=== PATIENT | female | born 1950 | race Caucasian/White ===

== ENCOUNTER 2016-05-24 13:30 | Emergency (ER) | payer OTHER ==
--- NOTE | 2016-05-24 13:37 | PDOC ---
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 The cough began 4 days ago. It is dry. She reports "chest congestion" as well as rhinorrhea. She denies fever, chills, sweats. She reports mild increase in her chronic dyspnea on exertion. She denies chest pain, lower extremity edema or weight gain. 05/24/16 14:31 <Nishant Schumacher - Last Filed: 05/24/16 14:38> <Tamara Galvan - Last Filed: 05/24/16 14:40> - General Chief Complaint: Respiratory Stated Complaint: COUGH & CONGESTION Time Seen by Provider: 05/24/16 13:35 Past History - Past Medical History Anemia: No Asthma: No Cancer: Yes (BASAL CELL,Left Breast) Cardiac Disorders: Yes CVA: Yes (10/25/2012) COPD: Yes CHF: No Dementia: No Diabetes: No GI Disorders: No Disorders: No HTN: Yes Hypercholesterolemia: Yes Liver Disease: No Seizures: No Thyroid Disease: No - Surgical History Abdominal Surgery: No Appendectomy: No Cardiac Surgery: No Cholecystectomy: No Lung Surgery: No Neurologic Surgery: No Orthopedic Surgery: No - Psycho/Social/Smoking Cessation Hx Anxiety: No Suicidal Ideation: No Smoking Status: Yes Smoking History: Current every day smoker Have you smoked in the past 12 months: Yes Number of Cigarettes Smoked Daily: 20 'Breaking Loose' booklet given: 10/25/12 Hx Alcohol Use: No Drug/Substance Use Hx: No Substance Use Type: None Hx Substance Use Treatment: No <Nishant Schumacher - Last Filed: 05/24/16 14:38> <Tamara Galvan - Last Filed: 05/24/16 14:40> - Past Medical History Allergies/Adverse Reactions: Allergies Allergy/AdvReac Type Severity Reaction Status Date / Time No Known Allergies Allergy Verified 05/24/16 13:39 Home Medications: Ambulatory Orders Atorvastatin Ca [Lipitor] 20 mg PO HS #0 tablet 10/31/12 Carvedilol [Coreg] 6.25 mg PO BID 01/15/13 Warfarin Na [Coumadin -] 6 mg PO HS #0 07/11/14 Albuterol Sulfate Inhaler - [Ventolin HFA Inhaler -] 2 inh IH Q4H PRN #1 inh Metformin HCl [Glucophage] 1,000 mg PO BID 05/24/16 Prednisone [Deltasone -] 20 mg PO DAILY #18 tablet 05/24/16 Review of Systems - Review of Systems Comments:: 05/24/16 13:36 CONSTITUTIONAL: Absent: fever, chills, diaphoresis, generalized weakness, malaise, loss of appetite HEENT: Present: rhinorrhea, nasal congestion, Absent: throat pain, throat swelling, difficulty swallowing, mouth swelling, ear pain, eye pain, visual Changes CARDIOVASCULAR: Absent: chest pain, loss of consciousness, palpitations, irregular heart rate, peripheral edema RESPIRATORY: Present: see HPI Absent: orthopnea, wheezing, stridor, hemoptysis GASTROINTESTINAL: Absent: abdominal pain, abdominal distension, nausea, vomiting, diarrhea, constipation, melena, hematochezia GENITOURINARY: Absent: dysuria, frequency, urgency, hesitancy, hematuria, flank pain, genital pain MUSCULOSKELETAL: Absent: myalgia, arthralgia, joint swelling SKIN: Absent: rash, itching, pallor HEMATOLOGIC/IMMUNOLOGIC: Absent: easy bleeding, easy bruising, lymphadenopathy, frequent infections ENDOCRINE: Absent: unexplained weight gain, unexplained weight loss, heat intolerance, cold intolerance NEUROLOGIC: Absent: headache, focal weakness or paresthesias, dizziness, unsteady gait, seizure, mental status changes, bladder or bowel incontinence PSYCHIATRIC: Absent: anxiety, depression, suicidal or homicidal ideation, hallucinations. 05/24/16 13:55 <Nishant Schumacher - Last Filed: 05/24/16 14:38> *Physical Exam - Physical Exam Comments: 05/24/16 14:39 GENERAL: Well developed, well nourished. Awake and alert. No acute distress. HEENT: Normocephalic, atraumatic. PERRLA, EOMI. No conjunctival pallor. Sclera are non- icteric. Moist mucous membranes. Oropharynx is clear. NECK: Supple. Full ROM. No JVD. Carotid pulses 2+ and symmetric, without bruits. No thyromegaly. No lymphadenopathy. CARDIOVASCULAR: Regular rate and rhythm. 2/6 systolic ejection murmur best heard at the left lower sternal border. No rubs, or gallops. Distal pulses are 2+ and symmetric. PULMONARY: No evidence of respiratory distress. Mild expiratory wheezes bilaterally. No rales or rhonchi. ABDOMINAL: Soft. Non-tender. Non-distended. No rebound or guarding. No organomegaly. Normoactive bowel sounds. MUSCULOSKELETAL Normal range of motion at all joints. No bony deformities or tenderness. No CVA tenderness. EXTREMITIES: No cyanosis. No clubbing. No edema. No calf tenderness. SKIN: Warm and dry. Normal capillary refill. No rashes. No jaundice. NEUROLOGICAL: Alert, awake, appropriate. Cranial nerves 2-12 intact. No deficits to light touch and temperature in face, upper extremities and lower extremities. No motor deficits in the in face, upper extremities and lower extremities. Normoreflexic in the upper and lower extremities. Normal speech. Toes are down- going bilaterally. Gait is normal without ataxia. PSYCHIATRIC: Cooperative. Good eye contact. Appropriate mood and affect. <Nishant Schumacher - Last Filed: 05/24/16 14:38> - Vital Signs Last Vital Signs Temp Pulse Resp BP Pulse Ox 99.6 F 99 H 22 126/82 96 05/24/16 13:35 05/24/16 13:35 05/24/16 13:35 05/24/16 13:35 05/24/16 13:35 <Tamara Galvan - Last Filed: 05/24/16 14:40> ED Treatment Course - RADIOLOGY Radiograph Interpretation: 05/24/16 14:40 EXAM#: TYPE/EXAM: RESULT: [id number] RAD/CHEST PA LAT Chest: Cough. 2 views reveal a better inspiration than 01/15/2013. There are clear lungs, slightly elevated right hemidiaphragm, prominent heart, sclerotic knob and normal sonny. The angles are sharp and the soft tissues are intact. There are some degenerative changes with wedging. Impression: No acute pathology. See discussion above. Reported By: Nishant Raza MD 05/24/16 5015 <Tamara Galvan - Last Filed: 05/24/16 14:40> Medical Decision Making - Medical Decision Making 05/24/16 13:56 She is well appearing and in no acute distress Will obtain PA and Lateral CXR Will administer Duoneb and oral prednisone 05/24/16 14:31 Symptoms much improved after medications Chest x-ray emergency Department interpretation: No interval change Echo reviewed showing mild aortic sclerosis and mitral regurgitation This correlates with the systolic murmur Clinical impression: Mild COPD exacerbation; resolved She is very well-appearing, and I feel that her COPD exacerbation is mild, and can be adequately treated on the outpatient basis. I strongly encouraged her to quit smoking. I discussed the physical exam findings, ancillary test results and final diagnoses with the patient. I answered all of the patient's questions. The patient was satisfied with the care received and felt comfortable with the discharge plan and treatment plan. The patient will call their primary care physician within 24 hours to arrange follow-up and will return to the Emergency Department with any new, persistent or worsening symptoms. 05/24/16 14:39 <Nishant Schumacher - Last Filed: 05/24/16 14:38> *DC/Admit/Observation/Transfer <Nishant Schumacher - Last Filed: 05/24/16 14:38> <Tamara Galvan - Last Filed: 05/24/16 14:40> Diagnosis at time of Disposition: COPD with exacerbation - Discharge Dispostion Disposition: HOME Condition at time of disposition: Improved - Prescriptions Prescriptions: Prednisone [Deltasone -] 20 mg PO DAILY #18 tablet Albuterol Sulfate Inhaler - [Ventolin HFA Inhaler -] 2 inh IH Q4H PRN #1 inh PRN Reason: Short Of Breath/Wheezing - Referrals Referrals: Rajeev Mitchell MD [Primary Care Provider] - - Patient Instructions Printed Discharge Instructions: DI for Chronic Bronchitis Additional Instructions: Please try as hard as he can to quit smoking. Even though you are 65, quitting smoking now will make a very significant difference in your life. Return to the emergency department immediately with ANY new, persistent or worsening symptoms. You MUST call and follow up with your doctor tomorrow. Please make sure your doctor reviews the results of your emergency department evaluation. - Post Discharge Activity Work/School Note: Back to Work
[2016-05-24 13:49] VITALS: BP 126/82; PULSE 99; TEMP 99.6; BMI 32.1
[2016-05-24] MEDS ORDERED: predniSONE 20 MG TABLET (UD) PO ONE (13:56)
[2016-05-24] MEDS ORDERED: ALBUTEROL SO4 2.5/IPRATROPIUM 0.5 INH SOL 3 ML VIAL.NEB. NEB ONE (13:56)
[2016-05-24] MEDS ORDERED: predniSONE 20 MG TABLET (UD) ONE (14:21)
== END 2016-05-24 15:04 | disposition home or self-care (01) ==
LOC: FER 13:30
PROC: 3E0F7GC Introduction of Other Therapeutic Substance into Respiratory Tract, Via Natural or Artificial Opening (ICD-10-PCS; principal; 2016-05-24)
DX: J44.1 Chronic obstructive pulmonary disease with (acute) exacerbation (principal); I10 Essential (primary) hypertension; E78.5 Hyperlipidemia, unspecified; Z86.73 Personal history of transient ischemic attack (TIA), and cerebral infarction without residual deficits; F17.210 Nicotine dependence, cigarettes, uncomplicated
CPT/HCPCS: 71020-TC; 94640; 99282-25

== ENCOUNTER → 2016-06-20 | Day surgery (SDC) | payer OTHER ==
--- NOTE | 2016-06-23 10:41 | OP ---
DATE OF OPERATION: 06/20/2016 PREOPERATIVE DIAGNOSIS: Left breast mass 11 o'clock, 9 cm from the nipple and left axillary adenopathy, suspicious. POSTOPERATIVE DIAGNOSIS: Left breast mass 11 o'clock, 9 cm from the nipple and left axillary adenopathy, suspicious. PROCEDURE: Left ultrasound-guided breast core biopsy with clip placement and left axillary ultrasound-guided biopsy with clip placement. ANESTHESIA: Local. ATTENDING SURGEON: Miguel A Willard MD ESTIMATED BLOOD LOSS: Minimal. COMPLICATIONS: None. DESCRIPTION OF PROCEDURE: The patient was made aware of the risks and benefits of the procedure and consented. He was placed in the supine position, and a left axillary adenopathy was approached first. Under sterile conditions with 1% lidocaine for local anesthesia, a small ronn was made in the skin. Using a 13-gauge suction biopsy device with inferolateral approach under ultrasound guidance, 6 cores were obtained and submitted to Pathology. Likewise, under ultrasound guidance, a U-shaped clip was placed into the axillary nodule. The patient having tolerating the procedure well, Steri-Strips and a sterile bandage was applied. Changing instrumentation and set up, the left breast mass was then approached. Under sterile conditions with 1% lidocaine for local anesthesia, a small ronn was made in the skin using a 13-gauge suction biopsy with an inferior approach. Under ultrasound guided, 6 cores were obtained with the 13-gauge suction biopsy device. Likewise, under ultrasound guidance, a bowtie clip was placed into the mass. Steri-Strips and a sterile bandage was applied. We will contact her with the results of these biopsies. MIGUEL A ORNELAS M.D. [id number]
--- NOTE | 2016-06-23 15:37 | PATH ---
Surgical Pathology Report Patient Name: [facility]. Rec. #: [id number] /Age/Gender: 1950 (Age: 65) / F Account: [id number] Location: [facility] Taken: 06/20/2016 Received: 06/20/2016 Reported: 06/23/2016 Physicians: Farnaz Albrecht M.D. Specimen(s) Received A: BREAST CORE BIOPSY LEFT AXILLARY TAIL B: BREAST CORE BIOPSY LEFT 11:00, 9CMFN Clinical History Palpable mass Ultrasound findings: highly suspicious/malignant Final Diagnosis A. breast, left, site #1, axillary tail, core biopsy: Invasive ductal carcinoma, moderately differentiated with papillary features, measuring 9 mm in greatest dimension in this material. B. breast, left, site #2, 11:00, 9 CM FN, core biopsy: Invasive ductal carcinoma, moderately differentiated measuring 1.5 cm in greatest dimension in this material. Note: Results of ER, AZ, HER-2 and Ki67 studies will be reported separately in an addendum. Electronically Signed Amalia Bucio M.D. Addendum Reported: 06/24/2016 Addendum Diagnosis Results of ER and AZ studies performed on blocks A (left axillary tail) &B (left 11:00 9 cm fn) at [facility] are as follows: ER (clone [id number] mouse monoclonal antibody by [employer]): 100 % nuclear staining with strong intensity (Positive). AZ (clone16 mouse monoclonal antibody by [employer]): ~75 % nuclear staining with moderate to strong intensity (Positive). Results of Her2 (IHC) & Ki-67 studies performed on blocks A (left axillary tail) &B (left 11:00 9 cm fn) at [place], [place] ([id number])are as follows: Her2 IHC (EP3 from [employer], formerly known as [id number], using [employer] Polymer Refine detection kit): 2+ (Equivocal). Ki-67: ~25% (Intermediate). Her2 FISH studies are being performed and the results will be reported in an additional addendum. Positive and negative controls (internal if applicable) show appropriate results. Formalin fixation and cold ischemic times are within current ASCO/CAP recommendations for ER, AZ and Her2 testing. Amalia Bucio M.D. Addendum Reported: 06/30/2016 Addendum Diagnosis Results of Her2 FISH studies performed on blocks A&B at [place], [place] ([id number]) are as follows: Block A: Her2: 3.8 CEP17: 2.9 Ratio: 1.3 Interpretation: Negative. Block B: Her2: 3.5 CEP17: 2.8 Ratio: 1.3 Interpretation: Negative. Amalia Bucio M.D. Gross Description A. Received in formalin labeled "left breast axillary tail," is a 2.0 x 1.5 x 0.3 cm aggregate of multiple maloney-yellow, irregular to cylindrical portions of fibroadipose tissue. The formalin is filtered and the specimen is entirely submitted in one cassette. B. Received in formalin labeled "left breast 11:00, 9cmfn," are 6 maloney-yellow, cylindrical portions of fibroadipose tissue ranging from 0.4-1.8 cm in length and averaging 0.1 cm in diameter. The specimens are submitted in toto in one cassette. Time to formalin fixation: 10 minutes Total formalin fixation time: Approximately 7 hours. 06/20/2016
== END | disposition home or self-care (01) ==
LOC: FRADUS-SUR 13:41
PROVIDERS: ATTEND Surgery
PROC: 0HBU3ZX Excision of Left Breast, Percutaneous Approach, Diagnostic (ICD-10-PCS; principal; 2016-06-20)
DX: N63 Unspecified lump in breast (principal); C50.212 Malignant neoplasm of upper-inner quadrant of left female breast; C50.612 Malignant neoplasm of axillary tail of left female breast; R59.9 Enlarged lymph nodes, unspecified
CPT/HCPCS: 19083; 19084; 88305-TC; 88342-TC

== ENCOUNTER → 2016-08-01 | Day surgery (SDC) | payer OTHER ==
--- NOTE | 2016-08-07 13:50 | OP ---
DATE OF OPERATION: 08/01/2016 PREOPERATIVE DIAGNOSIS: Right breast complex cyst 9 o'clock 10 cm from the nipple and a right axillary tail lymph node. POSTOPERATIVE DIAGNOSIS: Right breast complex cyst 9 o'clock 10 cm from the nipple and a right axillary tail lymph node. PROCEDURE: Right ultrasound-guided cyst aspiration. ANESTHESIA: Local . ATTENDING SURGEON: Dr. Moon. ESTIMATED BLOOD LOSS: Minimal. COMPLICATIONS: None. PROCEDURE IN DETAIL: The patient was made aware of the risks and benefits of the procedure and consented. She was placed in the supine position. Evaluation of the right complex lesion it was felt to be a complex cyst and a cyst aspiration was performed. Evaluation of the right axillary tail nodule showed it to be benign appearing anterior mammary lymph node and biopsy was deferred for observation. The right breast cyst was then approached. Under sterile conditions we infiltrated lidocaine for local anesthesia. An 18-guage needle under ultrasound guidance was directed to the cyst. This was aspirated revealing a very small amount of waxy yellow, non-bloody fluid. This almost completely decompressed the cyst with some residual fluid within it, but no nodularity. Since the fluid was benign appearing it was not submitted for cytology. The patient tolerated the procedure well. Sterile dressing was applied and referred back to Dr. Albrecht who will be treating her for her breast cancer. SUSAN ORNELAS M.D. [id number]
== END | disposition home or self-care (01) ==
LOC: FRADUS-SUR 12:50
PROVIDERS: ATTEND Surgery
PROC: BH40ZZZ Ultrasonography of Right Breast (ICD-10-PCS; principal; 2016-08-01)
PROC: 0H9T3ZZ Drainage of Right Breast, Percutaneous Approach (ICD-10-PCS; 2016-08-01)
DX: N60.01 Solitary cyst of right breast (principal)
CPT/HCPCS: 76942-TC

== ENCOUNTER 2016-12-08 11:15 | Inpatient (IN) | payer OTHER ==
[2016-12-08] MEDS ORDERED: SODIUM CHLORIDE 1,000 ML IV STA (11:24)
--- NOTE | 2016-12-08 11:28 | PDOC ---
History of Present Illness <Branden Landry - Last Filed: 12/08/16 15:05> - General History Source: Patient Exam Limitations: No Limitations - History of Present Illness Travel History: No Initial Comments: 12/08/16 11:25 65 y/o female with multiple medical problems presents to ER with LLQ pain. Decrease po intake for last 6 days. No fever or chills. 2 weeks ago placed on Augmentin for URI and then developed diarrhea. Diarrhea has stopped, no vomiting , but now with increase abdominal pain for last week. No SOB or chest pain. No fall or trauma. No back pain. Timing/Duration: reports: constant, getting worse Quality: reports: moderate Abdominal Pain Onset Location: reports: LLQ Pain Radiation: reports: no radiation Activities at Onset: reports: none <Nishant Ambrocio - Last Filed: 12/08/16 15:17> - General Chief Complaint: Pain Stated Complaint: LLQ PAIN Time Seen by Provider: 12/08/16 11:18 Past History <Branden Landry - Last Filed: 12/08/16 15:05> - Past Medical History Anemia: No Asthma: No Cancer: Yes (BASAL CELL,Left Breast) Cardiac Disorders: Yes CVA: Yes (10/25/2012) COPD: Yes CHF: No Dementia: No Diabetes: No GI Disorders: No Disorders: No HTN: Yes Hypercholesterolemia: Yes Liver Disease: No Seizures: No Thyroid Disease: No - Surgical History Abdominal Surgery: No Appendectomy: No Cardiac Surgery: No Cholecystectomy: No Lung Surgery: No Neurologic Surgery: No Orthopedic Surgery: No - Suicide/Smoking/Psychosocial Hx Smoking Status: Yes Smoking History: Current every day smoker Have you smoked in the past 12 months: Yes Number of Cigarettes Smoked Daily: 20 'Breaking Loose' booklet given: 05/24/16 Hx Alcohol Use: No Drug/Substance Use Hx: No Substance Use Type: None Hx Substance Use Treatment: No <Nishant Ambrocio - Last Filed: 12/08/16 15:17> - Past Medical History Allergies/Adverse Reactions: Allergies Allergy/AdvReac Type Severity Reaction Status Date / Time No Known Allergies Allergy Verified 12/08/16 11:22 Home Medications: Ambulatory Orders Atorvastatin Ca [Lipitor] 20 mg PO HS #0 tablet 10/31/12 Carvedilol [Coreg] 6.25 mg PO BID 01/15/13 Warfarin Na [Coumadin -] 6 mg PO HS #0 07/11/14 Albuterol Sulfate Inhaler - [Ventolin HFA Inhaler -] 2 inh IH Q4H PRN #1 inh Metformin HCl [Glucophage] 1,000 mg PO BID 05/24/16 Amlodipine Besylate [Norvasc -] 5 mg PO HS 12/08/16 Anastrozole [Arimidex -] 1 mg PO HS 12/08/16 Calcium Carbonate/Vitamin D3 [Calcium 500-Vit D3 600 Tablet] 2 each PO DAILY 11/16 Cyanocobalamin (Vitamin B-12) [B-12] 1,000 mcg PO DAILY 12/08/16 Review of Systems - Review of Systems Able to Perform ROS?: Yes Is the patient limited Sinhala proficient: No Constitutional: No: Chills, Fever, Malaise HEENTM: No: Throat Pain Respiratory: No: Cough, Shortness of Breath Cardiac (ROS): No: Chest Pain, Edema ABD/GI: Yes: Abdominal Distended, Diarrhea. No: Nausea, Vomiting : No: Burning, Dysuria Musculoskeletal: No: Back Pain Integumentary: No: Bruising All Other Systems: Reviewed and Negative <Nishant Ambrocio - Last Filed: 12/08/16 15:17> *Physical Exam - Vital Signs Last Vital Signs Temp Pulse Resp BP Pulse Ox 97.5 F L 110 H 18 127/83 95 12/08/16 11:17 12/08/16 11:17 12/08/16 11:17 12/08/16 11:17 12/08/16 11:17 <Branden Landry - Last Filed: 12/08/16 15:05> - Physical Exam General Appearance: Yes: Nourished, Appropriately Dressed, Mild Distress HEENT: positive: EOMI, SAMARIA (right eye blind, cataract/glaucoma), Normal ENT Inspection, Normal Voice, Pharynx Normal Neck: positive: Trachea midline, Normal Thyroid, Supple. negative: Tender, Rigid, Carotid bruit Respiratory/Chest: positive: Lungs Clear, Normal Breath Sounds. negative: Chest Tender, Respiratory Distress, Wheezing Cardiovascular: positive: Regular Rhythm, Regular Rate, S1, S2. negative: Edema , JVD, Murmur Vascular Pulses: Femoral (R): 4+, Femoral (L): 4+, Carotid (R): 4+, Carotid (L) : 4+, Dorsalis-Pedis (R): 4+, Doralis-Pedis (L): 4+ Gastrointestinal/Abdominal: positive: Tender (LLQ tenderness with rebound decreased BS, high pitched), Soft. negative: Normal Bowel Sounds (high pitched bowel sound), Flat (slightly distended), Organomegaly, Pulsatile Mass Lymphatic: negative: Adenopathy, Tenderness, Other Musculoskeletal: positive: Normal Inspection. 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 NML intact, Fully Oriented, Alert, Normal Mood/ Affect, Normal Response, Motor Strength 07/04 <Nishant Ambrocio - Last Filed: 12/08/16 15:17> ED Treatment Course - LABORATORY CBC & Chemistry Diagram: 12/08/16 11:50 12/08/16 11:50 - ADDITIONAL ORDERS Additional order review: Laboratory Results 12/08/16 12/08/16 12/08/16 11:50 11:50 11:50 PTT (Actin FS) Cancelled 65.4 H Sodium 136 Potassium 3.7 Chloride 93 L Carbon Dioxide 29 H Anion Gap 14 BUN 36 H D Creatinine 0.8 Creat Clearance w eGFR > 60 Random Glucose 170 H Calcium 9.6 Total Bilirubin 0.5 AST 16 ALT 10 Alkaline Phosphatase 90 Total Protein 6.4 Albumin 3.3 L Lipase 21 L Urine Color Urine Appearance Urine pH Ur Specific Bandy Urine Protein Urine Glucose (UA) Urine Ketones Urine Blood Urine Nitrite Urine Bilirubin Urine Urobilinogen Ur Leukocyte Esterase Urine RBC Urine WBC Ur Epithelial Cells 12/08/16 11:25 PTT (Actin FS) Sodium Potassium Chloride Carbon Dioxide Anion Gap BUN Creatinine Creat Clearance w eGFR Random Glucose Calcium Total Bilirubin AST ALT Alkaline Phosphatase Total Protein Albumin Lipase Urine Color Yellow Urine Appearance Sl cloudy Urine pH 5.0 Ur Specific Bandy 1.020 Urine Protein Negative Urine Glucose (UA) Negative Urine Ketones Trace Urine Blood Negative Urine Nitrite Negative Urine Bilirubin 1+ H Urine Urobilinogen 0.2 Ur Leukocyte Esterase 2+ H Urine RBC 0-2 Urine WBC 15-20 Ur Epithelial Cells 3-5 12/08/16 11:50 RBC 4.49 MCV 92.6 MCHC 33.5 RDW 13.6 MPV 8.6 Neutrophils % 80.3 Lymphocytes % 12.8 Monocytes % 6.3 Eosinophils % 0.5 Basophils % 0.1 - RADIOLOGY Radiograph Interpretation: 12/08/16 14:33 EXAM: CT Abdomen and Pelvis INTERPRETED BY: Dr. Pavon REVIEWED BY: Dr. Ambrocio IMPRESSION: Moderate colonic distention with caliber change at the level of the proximal sigmoid. No obvious mass or stricture noted. Clinical correlation and follow-up recommended. - Medications Given in the ED: ED Medications Discontinued Medications Generic Name Dose Route Start Last Admin Trade Name Freq PRN Reason Stop Dose Admin Sodium Chloride 1,000 mls @ 1,000 mls/hr 12/08/16 11:24 12/08/16 12:00 Normal Saline - IV 12/08/16 12:23 1,000 mls/hr ASDIR STA Administration Morphine Sulfate 4 mg 12/08/16 12:41 12/08/16 12:49 Morphine Injection - IVPUSH 12/08/16 12:42 4 mg ONCE ONE Administration Morphine Sulfate 4 mg 12/08/16 14:17 12/08/16 14:22 Morphine Injection - IVPUSH 12/08/16 14:18 4 mg ONCE ONE Administration Ondansetron HCl 4 mg 12/08/16 12:41 12/08/16 12:49 Zofran Injection IVPUSH 12/08/16 12:42 4 mg ONCE ONE Administration <Branden Landry - Last Filed: 12/08/16 15:05> - LABORATORY CBC & Chemistry Diagram: 12/08/16 11:50 12/08/16 11:50 - RADIOLOGY Radiology Studies Ordered: 12/08/16 15:14 XT abd/pelvis : colonic distention, no diverticulitis or obstruction <Nishant Ambrocio - Last Filed: 12/08/16 15:17> Progress Note - Progress Note Progress Note: 65 y/o female with LLQ tenderness, will obtain fluids and CT abedomen to r/o obstruction/diverticulitis Pt requiring IV pain meds and fluids Spoke to Hospitalist Dr. Rodriguez at 1510, will admit pt Pt will require surgical consults C-diff not ordered at this time since pt is no longer having diarrhea Appearance of colon appears to have toxic megacolon appearance <Nishant Ambrocio - Last Filed: 12/08/16 15:17> Medical Decision Making - Medical Decision Making 12/08/16 14:38 First call placed to Dr. Landen Shay at 14:39. Awaiting call back. Case discussed with Dr. Shay at 15:04. <Branden Landry - Last Filed: 12/08/16 15:05> *DC/Admit/Observation/Transfer - Attestations Scribe Attestion: 12/08/16 14:40 Documentation prepared by Branden Landry, acting as medical detail representative for Nishant Ambrocio MD. <Branden Landry - Last Filed: 12/08/16 15:05> - Discharge Dispostion Admit: Yes <Nishant Ambrocio - Last Filed: 12/08/16 15:17> Diagnosis at time of Disposition: Intractable abdominal pain - Discharge Dispostion Condition at time of disposition: Fair - Referrals Referrals: Landen Shay MD [Primary Care Provider] -
[2016-12-08 11:33] VITALS: BMI 30.9
[2016-12-08 11:37] LABS: URINE BILIRUBIN 1+ (NEGATIVE); URINE BLOOD Negative (NEGATIVE); URINE COLOR YELLOW; URINE GLUCOSE (UA) Negative (NEGATIVE); URINE KETONE Trace (NEGATIVE); URINE LEUK ESTERASE 2+ (NEGATIVE); URINE NITRITE Negative (NEGATIVE); URINE PROTEIN Negative (NEGATIVE); URINE UROBILINOGEN 0.2 (0.2-1.0)
[2016-12-08 11:38] LABS: URINE APPEARANCE SL CLOUDY
[2016-12-08 12:39] LABS: ALBUMIN 3.3 g/dl (3.5-5.0); ALK PHOS 90 U/L (32-92); ANION GAP 14 (8-16); BILIRUBIN,TOTAL 0.5 mg/dl (0.2-1.0); CALCIUM 9.6 mg/dl (8.4-10.2); CO2 29 mmol/L (22-28); CREATININE 0.8 mg/dl (0.6-1.3); GLUCOSE,RANDOM 170 mg/dl (74-106); SGOT/AST 16 U/L (10-42); SGPT/ALT 10 U/L (10-40); TOT PROT 6.4 g/dl (6.4-8.3)
[2016-12-08 12:40] LABS: BASOPHIL 0.1 % (0-2.0); EOSINOPHIL 0.5 % (0-4.5); MCHC 33.5 g/dl (32.0-36.0); MEAN CELL VOLUME 92.6 fl (80-96); MEAN PLT VOLUME 8.6 fl (7.5-11.1); NEUTROPHILS 80.3 % (42.8-82.8); PLATELET COUNT 405 K/MM3 (134-434); RDW 13.6 % (11.6-15.6)
[2016-12-08] MEDS ORDERED: ONDANSETRON 4 MG/2 ML VIAL IVPUSH ONE (12:41)
[2016-12-08] MEDS ORDERED: ONDANSETRON 4 MG/2 ML VIAL ONE (12:41)
[2016-12-08] MEDS ORDERED: morphine CARPU-JECT 4 MG/1 ML DISP.SYRIN IVPUSH ONE ×2 (12:41→14:17)
[2016-12-08] MEDS ORDERED: morphine CARPU-JECT 4 MG/1 ML DISP.SYRIN ONE ×2 (12:41→14:19)
[2016-12-08 12:48] LABS: ACTIVATED PTT 65.4 SECONDS (24.0-38.9)
[2016-12-08 13:05] LABS: URINE RBC 0-2 /hpf (0-3); URINE WBC 15-20 (3-5)
[2016-12-08] MEDS ORDERED: SODIUM CHLORIDE 1,000 ML IV SCH (13:15)
[2016-12-08] MEDS ORDERED: PHYTONADIONE 10 MG/1 ML AMP IM ONE (14:39)
[2016-12-08 14:40] LABS: INR > 15.00 (0.82-1.09)
[2016-12-08] MEDS ORDERED: PHYTONADIONE 10 MG/1 ML AMP ONE (14:49)
[2016-12-08] MEDS ORDERED: ONDANSETRON 4 MG/2 ML VIAL IVPUSH PRN (15:42)
[2016-12-08] MEDS ORDERED: ALBUTEROL SO4 18 GM HFA INHALER IH PRN (16:20)
[2016-12-08] MEDS: LEVOFLOXACIN 500 MG IVPB 100 ML IVPB SCH (17:39)
[2016-12-08] MEDS: INSULIN SLIDING SCALE (NOVOLOG) 1 VIAL SQ SCH ×2 (17:40→21:27)
--- NOTE | 2016-12-08 18:36 | CONSULT ---
Consult Consult Specialty:: General Surgery Referred by:: Dr. Ambrocio/hospitalist Reason for Consultation:: colonic dilation, LLQ pain - History of Present Illness Chief Complaint: LLQ pain, abdominal distention History of Present Illness: 65yo obese F with multiple medical problems including recently diagnosed breast cancer, never had colonoscopy, saw oncologist 2 weeks ago and was put on Augmentin. 2-3 days later, she began experiencing significant diarrhea, which eventually got better. A week ago Thursday, she then began having abdominal pain , mainly in the LLQ, but sometimes shooting up the left side when she stood up, associated with some mild nausea but no emesis, and possibly some more loose stool. No fever or chills, never had this before. About 5 days ago, her noted her abdomen began swelling up, and she has remained distended with intermittent LLQ pain. In the last few days, she has only had a few small formed pieces of stool, no "full bowel movement." She is passing gas. No more diarrhea. No n/v. Has not eaten much for last 5-6 days, partly due to the pain and distention - had applesauce yesterday, pudding day before, jello before that. Usually has BM only about every other day, but not hard or loose. Is burping a lot. The pain got so bad she finally came to ER today. Has been able to take her home meds regularly. No urinary symptoms. In ER, pt temp 99.1, wbc 11, INR and PTT very high (per pt, INR was 2.3 two weeks ago), glucose 170, UA with some WBC but no bacteria listed. CT with IV contrast but not oral showed colonic dilation to sigmoid with caliber change but no mass or stricture; no SB dilation, no free air, trace pelvic fluid and small ascites under liver and spleen, no diverticulosis. Per ED, pt had exquisite abdominal tenderness, particularly in LLQ. She got fluids, pain meds, vitamin K. She was admitted to hospitalist, and surgery consulted to evaluate. Patient states pain has improved - currently not present without palpation. 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: Yes: CVA (no residual) Cardio/Vascular: Yes: HTN, Hyperlipdemia Pulmonary: Yes: COPD Gastrointestinal: Yes: Other (obesity) Reproductive: Yes: Postmenopausal ...: No Heme/Onc: Yes: Cancer (breast (left) diagnosed May invasive ductal, ER/SC+/ Her2-, on Arimidex; had calcifications out 2005, malignant per pt, did not have radiation (near same spot)), Other (on coumadin since stroke) Endocrine: Yes: Diabetes Mellitus Dermatology: Yes: Basal Cell (multiple sites removed) Additional Medical History: legally blind, 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 No: Colonoscopy (never had) Additional Surgical History: basal cell CA removed from lip, back, right forearm - Alcohol/Substance Use Hx Alcohol Use: No (social in past, not recently) History of Substance Use: reports: None - Smoking History Smoking history: Current every day smoker Have you smoked in the past 12 months: Yes Aproximately how many cigarettes per day: 20 (2ppd x 50y, cut down to 1ppd ~ 2012 after stroke) - Social History Usual Living Arrangement: With Spouse Home Medications - Allergies Allergies/Adverse Reactions: Allergies Allergy/AdvReac Type Severity Reaction Status Date / Time No Known Allergies Allergy Verified 12/08/16 11:22 - Home Medications Home Medications: Ambulatory Orders Atorvastatin Ca [Lipitor] 20 mg PO HS #0 tablet 10/31/12 Carvedilol [Coreg] 6.25 mg PO BID 01/15/13 Warfarin Na [Coumadin -] 6 mg PO HS #0 07/11/14 Albuterol Sulfate Inhaler - [Ventolin HFA Inhaler -] 2 inh IH Q4H PRN #1 inh Metformin HCl [Glucophage] 1,000 mg PO BID 05/24/16 Amlodipine Besylate [Norvasc -] 5 mg PO HS 12/08/16 Anastrozole [Arimidex -] 1 mg PO HS 12/08/16 Calcium Carbonate/Vitamin D3 [Calcium 500-Vit D3 600 Tablet] 2 each PO DAILY 11/16 Cyanocobalamin (Vitamin B-12) [B-12] 1,000 mcg PO DAILY 12/08/16 Family Disease History - Family Disease History Other Family History: multiple family members with cancer history Review of Systems - Review of Systems Constitutional: reports: Loss of Appetite (partly due to pain and abdominal distention), Unintentional Wgt. Loss (lost 7 pounds recently). denies: Chills, Fever Eyes: reports: Other (legally blind, has some blurry vision in left eye only). denies: Recent Change in Vision HENT: denies: Difficult Swallowing, Hearing Loss, Nasal Congestion, Throat Pain Neck: denies: Swollen Glands, Tenderness Cardiovascular: denies: Chest Pain, Palpitations Respiratory: reports: Cough (smoker's cough). denies: SOB Gastrointestinal: reports: Abdominal Pain (with hpi, since Sun last week), Bloating (distended for about 5 days), Constipation (last few days only few small pieces, usually goes about every other day), Diarrhea (initially with hpi ~2 wks ago, maybe some ~1 wk ago, none in last several days), Nausea (had a little last week, no vomiting). denies: Vomiting Genitourinary: denies: Burning, Dysuria, Frequency, Urgency Breasts: reports: See HPI, Lumps, Skin Changes Musculoskeletal: denies: Back Pain, Joint Pain, Muscle Pain Integumentary: denies: Change in Color, Rash Neurological: denies: Dizziness, Headache, Unsteady Gait Psychiatric: denies: Anxiety, Depression Physical Exam Vital Signs: Vital Signs Temperature 98.8 F 12/08/16 17:18 Pulse Rate 100 H 12/08/16 17:18 Respiratory Rate 20 12/08/16 17:18 Blood Pressure 126/70 12/08/16 17:18 O2 Sat by Pulse Oximetry (%) 93 L 12/08/16 17:18 Constitutional: Yes: No Distress, Calm, Obese Eyes: Yes: EOM Intact (on left, not on right), Other (right eye clouded over, blind) HENT: Yes: Atraumatic, Normocephalic Neck: Yes: Supple, Trachea Midline Cardiovascular: Yes: Tachycardia (mild), Murmur. No: Pulse Irregular Respiratory: Yes: Regular, CTA Bilaterally (generally), Cough (periodic smoker' s cough), Wheezes (some faint inspiratory on right, faint end-expiratory on left ) Gastrointestinal: Yes: Soft, Abdomen, Obese, Distention (with tympany, some rushing and higher-pitched bowel sounds), Hernia (umbilical/periumbilical small reducible defect palpable), Hyperactive Bowel Sounds, Tenderness (LLQ without guarding or rebound - per pt, better than earlier in ER). No: Tenderness, Epigastrium, Tenderness, Rebound ...Rectal Exam: Yes: Deferred Renal/: No: CVA Tenderness - Left, CVA Tenderness - Right Breast(s): Yes: Left, Mass, Skin Changes (left UOQ with superficial nonmobile palpable mass with overlying dry skin changes with some discoloration, 3-4cm diameter) Musculoskeletal: No: Joint Swelling, Muscle Pain Extremities: No: Cool, Cyanosis Edema: No Peripheral Pulses WNL: Yes Integumentary: No: Jaundice, Rash Neurological: Yes: Alert, Oriented Psychiatric: Yes: Alert, Oriented Labs: CBCD WBC 11.0 K/mm3 (4.0-10.8) H 12/08/16 11:50 RBC 4.49 M/mm3 (3.60-5.2) 12/08/16 11:50 Hgb 13.9 GM/dl (10.7-15.3) 12/08/16 11:50 Hct 41.5 % (32.4-45.2) 12/08/16 11:50 MCV 92.6 fl (80-96) 12/08/16 11:50 MCHC 33.5 g/dl (32.0-36.0) 12/08/16 11:50 RDW 13.6 % (11.6-15.6) 12/08/16 11:50 Plt Count 405 K/MM3 (134-434) 12/08/16 11:50 MPV 8.6 fl (7.5-11.1) 12/08/16 11:50 CMP Sodium 136 mmol/L (136-145) 12/08/16 11:50 Potassium 3.7 mmol/L (3.5-5.1) 12/08/16 11:50 Chloride 93 mmol/L (98-107) L 12/08/16 11:50 Carbon Dioxide 29 mmol/L (22-28) H 12/08/16 11:50 Anion Gap 14 (8-16) 12/08/16 11:50 BUN 36 mg/dl (7-18) H D 12/08/16 11:50 Creatinine 0.8 mg/dl (0.6-1.3) 12/08/16 11:50 Creat Clearance w eGFR > 60 (>60) 12/08/16 11:50 Calcium 9.6 mg/dl (8.4-10.2) 12/08/16 11:50 Total Bilirubin 0.5 mg/dl (0.2-1.0) 12/08/16 11:50 AST 16 U/L (10-42) 12/08/16 11:50 ALT 10 U/L (10-40) 12/08/16 11:50 Alkaline Phosphatase 90 U/L (32-92) 12/08/16 11:50 Total Protein 6.4 g/dl (6.4-8.3) 12/08/16 11:50 Albumin 3.3 g/dl (3.5-5.0) L 12/08/16 11:50 INR, PTT INR > 15.00 (0.82-1.09) H* 12/08/16 11:50 PTT 65 Urine Test Results Urine Color Yellow 12/08/16 11:25 Urine Appearance Sl cloudy 12/08/16 11:25 Urine pH 5.0 (4.5-8) 12/08/16 11:25 Ur Specific [place] 1.020 (1.005-1.025) 12/08/16 11:25 Urine Protein Negative (NEGATIVE) 12/08/16 11:25 Urine Glucose (UA) Negative (NEGATIVE) 12/08/16 11:25 Urine Ketones Trace (NEGATIVE) 12/08/16 11:25 Urine Blood Negative (NEGATIVE) 12/08/16 11:25 Urine Nitrite Negative (NEGATIVE) 12/08/16 11:25 Urine Bilirubin 1+ (NEGATIVE) H 12/08/16 11:25 Ur Leukocyte Esterase 2+ (NEGATIVE) H 12/08/16 11:25 Urine RBC 0-2 /hpf (0-3) 12/08/16 11:25 Urine WBC 15-20 (3-5) 12/08/16 11:25 Ur Epithelial Cells 3-5 /HPF 12/08/16 11:25 Imaging - Results Cat Scan: Report Reviewed (colon dilated from cecum to sigmoid, with caliber change but no obvious etiology, some stool present distally, no small bowel dilation, small ascites under liver and spleen, trace pelvic fluid, no diverticulosis), Image Reviewed Problem List - Problems (1) LLQ pain Assessment/Plan: pain/tenderness improved from presentation to ER etiology unclear outside of colonic dilation (see below) passing some flatus, minimal BM last couple days checking stool for C diff with next BM on Flagyl (w/Levo) keep NPO/IVF trend labs minimize narcotic pain medication GI consultation pending NGT not indicated no indication for surgical intervention at this time will follow Code(s): R10.32 - LEFT LOWER QUADRANT PAIN (2) Dilatation of colon Assessment/Plan: etiology unclear could have been C diff related after Augmentin 2 wks ago, but no longer having diarrhea would check stool anyway on Flagyl (with Levo) - would cover never had colonoscopy recommend GI consultation may benefit from flex sig with possible decompression? continue NPO/IVF for now Code(s): K59.39 - OTHER MEGACOLON (3) H/O: CVA (cerebrovascular accident) Assessment/Plan: on coumadin no residual would hold coumadin if possible for now Code(s): Z86.73 - PRSNL HX OF TIA (TIA), AND CEREB INFRC W/O RESID DEFICITS (4) Supratherapeutic INR Assessment/Plan: repeating coags got vitamin K in ER if truly elevated, may need to correct would hold coumadin for now Code(s): R79.1 - ABNORMAL COAGULATION PROFILE (5) Hypertension Assessment/Plan: on home meds Code(s): I10 - ESSENTIAL (PRIMARY) HYPERTENSION Qualifiers: Hypertension type: essential hypertension Qualified Code(s): I10 - Essential (primary) hypertension; I10 - Essential (primary) hypertension; I10 - Essential (primary) hypertension (6) COPD without exacerbation Assessment/Plan: inhalers prn defer to primary team Code(s): J44.9 - CHRONIC OBSTRUCTIVE PULMONARY DISEASE, UNSPECIFIED (7) Diabetes mellitus type 2, noninsulin dependent Assessment/Plan: FS with SSI while NPO hold metformin at least 48H after CT with IV contrast Code(s): E11.9 - TYPE 2 DIABETES MELLITUS WITHOUT COMPLICATIONS (8) Cancer of left breast Assessment/Plan: on Arimidex follows with Dr. Pete Code(s): C50.912 - MALIGNANT NEOPLASM OF UNSPECIFIED SITE OF LEFT FEMALE BREAST Qualifiers: Breast location: upper outer quadrant of breast Estrogen receptor status: positive Patient sex: female Qualified Code(s): C50.412 - Malignant neoplasm of upper-outer quadrant of left female breast; C50.412 - Malignant neoplasm of upper-outer quadrant of left female breast; C50.412 - Malignant neoplasm of upper-outer quadrant of left female breast; C50.412 - Malignant neoplasm of upper-outer quadrant of left female breast; Z17.0 - Estrogen receptor positive status [ER+]; Z17.0 - Estrogen receptor positive status [ER+]
[2016-12-08 21:23] LABS: INR > 15.00 (0.82-1.09)
[2016-12-08] MEDS: amLODIPine BESYLATE 5 MG TABLET (FP) PO SCH (21:26)
[2016-12-08] MEDS: ANASTROZOLE 1 MG TABLET PO SCH (21:26)
[2016-12-08] MEDS: METRONIDAZOLE 500 MG PREMIXED 100 ML IVPB SCH (21:26)
[2016-12-08] MEDS: CARVEDILOL 6.25 MG TABLET (FP) PO SCH (21:26)
[2016-12-08] MEDS: ATORVASTATIN CA 20 MG TABLET (FP) PO SCH (21:26)
--- NOTE | 2016-12-09 00:12 | HP ---
CHIEF COMPLAINT: abdominal pain PCP: Laurita HISTORY OF PRESENT ILLNESS: This is a 65 year old female with a past medical history significant for Diabetes, recent augmentin use for respiratory infection who presented to the ED with a one week h/o LLQ pain. States that she had diarrhea when she was on augmentin and stopped her course early last Thursday due to the diarrhea. Since then her stomach has been upset and her po intake has been poor. She reports that the LBM has stopped and in fact hasn't had a good bowel movement since then , only a few small formed pieces of stool. Upon exam, she reports feeling better and thinks the distension has lessened a little bit. ER course was notable for: (1) CT with colonic distension, no diverticulitis (2) WBC 11.0 (3) INR >15.0 Recent Travel: pt denies PAST MEDICAL HISTORY: L BrCA diagnosed 04/2016, previous surgeries with removal of calcifications, biopsies, no mastectomy Basal Cell CA CVA 2012 COPD HTN HLD DM PAST SURGICAL HISTORY: tonsillectomy age 11 breast surgeries basal cell removal Social History: Smokin/4 PPD x 54 years Alcohol: pt denies Drugs: pt denies Family History: mother age 59, colon CA father age 74, COPD, heart disease brother age 61, heart disease brother age 57, sinus CA sister with h/o BrCA age 43 , hysterectomy due to "female cancer" , current lung CA, dx 2000 one sister alive and well 2 children alive and well Allergies No Known Allergies Allergy (Verified 12/08/16 11:22) HOME MEDICATIONS: 3 Medication Instructions Recorded Atorvastatin Ca [Lipitor] 20 mg PO HS #0 tablet 10/31/12 Carvedilol [Coreg] 6.25 mg PO BID 01/15/13 Warfarin Na [Coumadin -] 6 mg PO HS #0 07/11/14 Albuterol Sulfate Inhaler - 2 inh IH Q4H PRN #1 inh 05/24/16 [Ventolin HFA Inhaler -] Metformin HCl [Glucophage] 1,000 mg PO BID 05/24/16 Amlodipine Besylate [Norvasc -] 5 mg PO HS 12/08/16 Anastrozole [Arimidex -] 1 mg PO HS 12/08/16 Calcium Carbonate/Vitamin D3 2 each PO DAILY 12/08/16 [Calcium 500-Vit D3 600 Tablet] Cyanocobalamin (Vitamin B-12) 1,000 mcg PO DAILY 12/08/16 [B-12] REVIEW OF SYSTEMS CONSTITUTIONAL: Absent: fever, chills, diaphoresis, generalized weakness, malaise, loss of appetite, weight change HEENT: Absent: rhinorrhea, nasal congestion, throat pain, throat swelling, difficulty swallowing, mouth swelling, ear pain, eye pain, visual changes CARDIOVASCULAR: Absent: chest pain, syncope, palpitations, irregular heart rate, lightheadedness , peripheral edema RESPIRATORY: Absent: cough, shortness of breath, dyspnea with exertion, orthopnea, wheezing, stridor, hemoptysis GASTROINTESTINAL: abdominal pain, abdominal distension, diarrhea Absent: nausea, vomiting, constipation, melena, hematochezia GENITOURINARY: Absent: dysuria, frequency, urgency, hesitancy, hematuria, flank pain, genital pain MUSCULOSKELETAL: Absent: myalgia, arthralgia, joint swelling, back pain, neck pain SKIN: Absent: rash, itching, pallor HEMATOLOGIC/IMMUNOLOGIC: Absent: easy bleeding, easy bruising, lymphadenopathy, frequent infections ENDOCRINE: Absent: unexplained weight gain, unexplained weight loss, heat intolerance, cold intolerance NEUROLOGIC: Absent: headache, focal weakness or paresthesias, dizziness, unsteady gait, seizure, mental status changes, bladder or bowel incontinence PSYCHIATRIC: Absent: anxiety, depression, suicidal or homicidal ideation, hallucinations. PHYSICAL EXAMINATION Vital Signs - 24 hr 3 12/08/16 12/08/16 12/08/16 17:18 19:28 21:58 Temperature 98.8 F 98.8 F Pulse Rate 100 H 96 H Respiratory 20 20 20 Rate Blood Pressure 126/70 111/61 O2 Sat by Pulse 93 L 91 L Oximetry (%) GENERAL: Awake, alert, and fully oriented, in no acute distress. HEAD: Normal with no signs of trauma. EYES: Pupils equal, round and reactive to light, extraocular movements intact, sclera anicteric, conjunctiva clear. No lid lag. EARS, NOSE, THROAT: Ears normal, nares patent, oropharynx clear without exudates. Moist mucous membranes. NECK: Normal range of motion, supple without lymphadenopathy, JVD, or masses. LUNGS: Breath sounds equal, clear to auscultation bilaterally. No crackles. No accessory muscle use. + rhonchi HEART: Regular rate and rhythm, normal S1 and S2 without murmur, rub or gallop. ABDOMEN: Soft, tinkling bowel sounds, no guarding, no rebound, no masses. No hepatomegaly or splenomegaly. + LLQ tenderness. + distention MUSCULOSKELETAL: Normal range of motion at all joints. No bony deformities or tenderness. No CVA tenderness. UPPER EXTREMITIES: 2+ pulses, warm, well-perfused. No cyanosis. No clubbing. No peripheral edema. LOWER EXTREMITIES: 2+ pulses, warm, well-perfused. No calf tenderness. No peripheral edema. NEUROLOGICAL: Cranial nerves II-XII intact. Normal speech. Normal gait. PSYCHIATRIC: Cooperative. Good eye contact. Appropriate mood and affect. SKIN: Warm, dry, normal turgor, no rashes or lesions noted, normal capillary refill. Laboratory Results - last 24 hr 3 12/08/16 12/08/16 12/08/16 12/08/16 12/08/16 11:25 11:50 11:50 18:22 20:49 WBC 11.0 H RBC 4.49 Hgb 13.9 Hct 41.5 MCV 92.6 MCH 31.0 MCHC 33.5 RDW 13.6 Plt Count 405 MPV 8.6 Neutrophils % 80.3 Lymphocytes % 12.8 Monocytes % 6.3 Eosinophils % 0.5 Basophils % 0.1 PT with INR 226.00 H 192.90 H INR > 15.00 H* > 15.00 H* PTT (Actin FS) 65.4 H Sodium 136 Potassium 3.7 Chloride 93 L Carbon Dioxide 29 H Anion Gap 14 BUN 36 H D Creatinine 0.8 Creat Clearance w eGFR > 60 POC Glucometer 120 Random Glucose 170 H Calcium 9.6 Total Bilirubin 0.5 AST 16 ALT 10 Alkaline Phosphatase 90 Total Protein 6.4 Albumin 3.3 L Lipase 21 L Urine Color Yellow Urine Appearance Sl cloudy Urine pH 5.0 Ur Specific [place] 1.020 Urine Protein Negative Urine Glucose (UA) Negative Urine Ketones Trace Urine Blood Negative Urine Nitrite Negative Urine Bilirubin 1+ H Urine Urobilinogen 0.2 Ur Leukocyte Esterase 2+ H Urine RBC 0-2 Urine WBC 15-20 Ur Epithelial Cells 3-[address]/ABDOMEN PELVIS CT WITH CONTR HISTORY PROVIDED: Left lower quadrant pain. Sequential axial images were obtained from the domes of the diaphragms through the symphysis pubis following the administration of intravenous contrast material. The lung bases are clear. There is moderate distention of the colon from the cecum to the sigmoid colon. There is a caliber change at the level of the proximal sigmoid with no obvious mass or stricture noted in this location. Clinical correlation and follow-up colonoscopy is recommended. There is no evidence of diverticular disease within the colon. There is a small amount of ascites noted about the spleen and the inferior tip of the liver. There is a trace amount of free pelvic fluid, as well. The etiology of this fluid is uncertain. The liver, spleen, pancreas, adrenal glands and kidneys demonstrate no significant abnormalities. There are a few tiny central renal calcifications suspicious for nonobstructing calculi. There is no evidence of intra-abdominal or retroperitoneal lymphadenopathy or fluid collections. There is no evidence of pneumoperitoneum or intra-abdominal abscess. Examination of the pelvis demonstrates no evidence of pelvic masses, fluid collections or lymphadenopathy. There is no evidence of acute bony abnormalities. IMPRESSION: Moderate colonic distention with caliber change at the level of the proximal sigmoid. No obvious mass or stricture noted. Clinical correlation and follow-up recommended. Please see above discussion. Reported By: Evin Pavon MD 12/08/16 1426 ECG Sinus rhythm with fusion complexes LVH vent rate 99, QTC [address]/T changes ASSESSMENT/PLAN: 65yF with PMH L BrCA, Basal Cell CA, CVA 2013, COPD, HTN, HLD, DM presented with abdominal pain after a course of augmentin. Pt is being admitted for further evaluation. Abdominal pain/distention - unclear etiology - Surgical consult appreciated - cont NPO - stool for C diff when produces - GI consult - cont flagyl Supratherapeutic INR - no acute bleeding - s/p Vitamin K in ED - repeat INR in am - likely due to augmentin usage - cont to hold coumadin until INR < 3 UTI - cont levaquin - follow culture HTN/HLD - cont home medications COPD - only takes albuterol PRN, monitor for acute exacerbation and treat promptly DVT PPX - elevated INR, no heparin indicated FEN - NS @ 75cc/hr - BMP in am - NPO for now Dispo: Pt currently requires inpatient management of her emergent condition. Visit type - Emergency Visit Emergency Visit: Yes ED Registration Date: 12/08/16 Care time: The patient presented to the Emergency Department on the above date and was hospitalized for further evaluation of their emergent condition. - New Patient This patient is new to me today: Yes Date on this admission: 12/08/16 - Critical Care Critical Care patient: No
[2016-12-09] MEDS: METRONIDAZOLE 500 MG PREMIXED 100 ML IVPB SCH ×4 (02:04→21:57)
[2016-12-09] MEDS ORDERED: HEPARIN NA (PORCINE) 5,000 UNITS/ML 1ML VIAL SQ SCH (06:00)
[2016-12-09] MEDS: INSULIN SLIDING SCALE (NOVOLOG) 1 VIAL SQ SCH ×4 (06:29→22:33)
[2016-12-09 07:42] LABS: MCH 30.8 pg (25.7-33.7); MCHC 33.4 g/dl (32.0-36.0); MEAN CELL VOLUME 92.4 fl (80-96); MEAN PLT VOLUME 8.3 fl (7.5-11.1); PLATELET COUNT 290 K/MM3 (134-434); RDW 13.6 % (11.6-15.6); WHITE BLOOD COUNT 9.9 K/mm3 (4.0-10.8)
[2016-12-09 07:59] LABS: PROTHROMBIN TIME (PATIENT) 65.9 SEC (10.2-13.0)
[2016-12-09 08:01] LABS: INR 6.1 (0.82-1.09)
[2016-12-09 08:03] LABS: ANION GAP 11 (8-16); CO2 26 mmol/L (22-28); CREATININE 0.7 mg/dl (0.6-1.3); GLUCOSE,RANDOM 118 mg/dl (74-106); MAGNESIUM 1.4 mg/dL (1.8-2.4)
--- NOTE | 2016-12-09 08:52 | PN ---
Physical Exam: SUBJECTIVE: Patient seen and examined, denies any abdominal pain or nausea, report a burping sensation. OBJECTIVE: Patient is a 65y/o female with a past medical history of hypertension, HLD, NIDDM, breast CA (armidex), embolic CVA (coumadin) and COPD. Patient was admitted from the emergency department for supratherepeutic INR and intractable abdominal pain. Vital Signs Period Temp Pulse Resp BP Sys/Holt Pulse Ox Last 24 Hr 98.5 F-98.8 F 91-100 20-20 111-126/48-70 91-93 GENERAL: The patient is awake, alert, and fully oriented, in no acute distress. HEAD: Normal with no signs of trauma. EYES: PERRL, extraocular movements intact, sclera anicteric, conjunctiva clear. No ptosis. ENT: Ears normal, nares patent, oropharynx clear without exudates, moist mucous membranes. NECK: Trachea midline, full range of motion, supple. LUNGS: Breath sounds equal, wheezing noted to the right lower lobe, clear to the left apex, diminished to bases, moist cough noted, no crackles, no accessory muscle use. HEART: Regular rate and rhythm, S1, S2 without murmur, rub or gallop. ABDOMEN: distended, no bowel sounds, no guarding, no rebound, reducible umbilical hernia, no hepatosplenomegaly, no masses. EXTREMITIES: 2+ pulses, warm, well-perfused, no edema. NEUROLOGICAL: Cranial nerves II through XII grossly intact. Normal speech, gait not observed. PSYCH: Normal mood, normal affect. SKIN: Warm, dry, normal turgor, no rashes or lesions noted Laboratory Results - last 24 hr CBC WBC 9.9 K/mm3 (4.0-10.8) 12/09/16 07:17 RBC 3.95 M/mm3 (3.60-5.2) 12/09/16 07:17 Hgb 12.2 GM/dl (10.7-15.3) D 12/09/16 07:17 Hct 36.5 % (32.4-45.2) 12/09/16 07:17 MCV 92.4 fl (80-96) 12/09/16 07:17 MCH 30.8 pg (25.7-33.7) 12/09/16 07:17 MCHC 33.4 g/dl (32.0-36.0) 12/09/16 07:17 RDW 13.6 % (11.6-15.6) 12/09/16 07:17 Plt Count 290 K/MM3 (134-434) D 12/09/16 07:17 MPV 8.3 fl (7.5-11.1) 12/09/16 07:17 Neutrophils % No Result Required. 12/09/16 07:17 Lymphocytes % No Result Required. 12/09/16 07:17 Monocytes % 6.3 % (3.8-10.2) 12/08/16 11:50 Eosinophils % 0.5 % (0-4.5) 12/08/16 11:50 Basophils % 0.1 % (0-2.0) 12/08/16 11:50 CMP Sodium 135 mmol/L (136-145) L 12/09/16 07:17 Potassium 3.6 mmol/L (3.5-5.1) 12/09/16 07:17 Chloride 98 mmol/L (98-107) 12/09/16 07:17 Carbon Dioxide 26 mmol/L (22-28) 12/09/16 07:17 Anion Gap 11 (8-16) 12/09/16 07:17 BUN 24 mg/dl (7-18) H D 12/09/16 07:17 Creatinine 0.7 mg/dl (0.6-1.3) 12/09/16 07:17 Creat Clearance w eGFR > 60 (>60) 12/08/16 11:50 POC Glucometer 119 UNITS (()) 12/09/16 05:23 Random Glucose 118 mg/dl (74-106) H D 12/09/16 07:17 Calcium 8.0 mg/dl (8.4-10.2) L 12/09/16 07:17 Phosphorus 3.0 mg/dl (2.5-4.6) 12/09/16 07:17 Magnesium 1.4 mg/dL (1.8-2.4) L 12/09/16 07:17 Total Bilirubin 0.5 mg/dl (0.2-1.0) 12/08/16 11:50 AST 16 U/L (10-42) 12/08/16 11:50 ALT 10 U/L (10-40) 12/08/16 11:50 Alkaline Phosphatase 90 U/L (32-92) 12/08/16 11:50 Total Protein 6.4 g/dl (6.4-8.3) 12/08/16 11:50 Albumin 3.3 g/dl (3.5-5.0) L 12/08/16 11:50 Lipase 21 U/L (22-51) L 12/08/16 11:50 Laboratory Tests 12/09/16 07:17 PT with INR 65.9 H INR 6.10 H* Active Medications Generic Name Dose Route Start Last Admin Trade Name Freq PRN Reason Stop Dose Admin Albuterol Sulfate 2 puff 12/08/16 16:20 Ventolin Hfa Inhaler - IH Q4H PRN SHORT OF BREATH/WHEEZING Amlodipine Besylate 5 mg 12/08/16 22:00 12/08/16 21:26 Norvasc - PO 5 mg HS CASPER Administration Anastrozole 1 mg 12/08/16 22:00 12/08/16 21:26 Arimidex - PO 1 mg HS CASPER Administration Atorvastatin Calcium 20 mg 12/08/16 22:00 12/08/16 21:26 Lipitor - PO 20 mg HS CASPER Administration Calcium Carbonate/Cholecalciferol 2 tab 12/09/16 10:00 Os-Ace 500+D - PO DAILY CASPER Carvedilol 6.25 mg 12/08/16 22:00 12/08/16 21:26 Coreg - PO 6.25 mg BID CASPER Administration Cyanocobalamin 1,000 mcg 12/09/16 10:00 Vitamin B12 - PO DAILY CASPER Sodium Chloride 1,000 mls @ 125 mls/hr 12/08/16 13:15 12/08/16 13:05 Normal Saline - IV 125 mls/hr ASDIR CASPER Administration Levofloxacin 100 mls @ 100 mls/hr 12/08/16 16:45 12/08/16 17:39 Levaquin 500 Mg Premixed Ivpb - IVPB 100 mls/hr DAILY CASPER Administration Metronidazole 100 mls @ 100 mls/hr 12/08/16 18:30 12/09/16 02:04 Flagyl 500mg Premixed Ivpb - IVPB 100 mls/hr Q6H-IV CASPER Administration Insulin Aspart 1 vial 12/08/16 16:30 12/09/16 06:29 Novolog Vial Sliding Scale - SQ Not Given ACHS CASPER Protocol Ondansetron HCl 4 mg 12/08/16 15:42 Zofran Injection IVPUSH Q6H PRN NAUSEA Radiology Reports CT/ABDOMEN PELVIS CT WITH CONTR HISTORY PROVIDED: IMPRESSION: Moderate colonic distention with caliber change at the level of the proximal sigmoid. No obvious mass or stricture noted. Clinical correlation and follow-up recommended. Please see above discussion. Reported By: Evin Pavon MD 12/08/16 1426 ECG Sinus rhythm with fusion complexes LVH vent rate 99, QTC [address]/T changes ASSESSMENT/PLAN: 1) abdominal pain - ct scan of abdomen reviewed, repeat xray of abd flat/upright ordered - npo->ivf 1/2ns w/20meq KCI @100ml/hr - leukocytosis improved, afebrile, continue to monitor wbc and fever curve - continue empiric levaquin and flagyl - appreciate GI input, patient has never had a colonoscopy - surgery, Dr Mitchell consulted and followed 2) supratherepeutic INR - no acute acute bleeding, hgb 12.2 stable - vitamin k given yesterday in ER (12/08/16), repeat inr today 6.10 trending downward, repeat INR tommorow - pt has a history of embolic CVA, continue to hold coumadin 3) urinary tract infection - leukocytes noted in urine, continue levaquin, pending urine culture to finalize antibiotics 4) hypertension - b/p at goal, continue norvasc 5) copd - wheezing noted on exam, start duoneb prn - keep spo2 above 92%, with supplemental O2 PRN 6) Breast CA - continue armidex - will require outpatient followup Dr Pete. f/e/n - npo-->ivf - replete magnesium ppx - elevated inr, no need for ppx at this time Dispo: Pt currently requires inpatient management of her emergent condition. Visit type - Emergency Visit Emergency Visit: Yes ED Registration Date: 12/08/16 Care time: The patient presented to the Emergency Department on the above date and was hospitalized for further evaluation of their emergent condition. - New Patient This patient is new to me today: Yes Date on this admission: 12/09/16 - Critical Care Critical Care patient: No - Discharge Referral Referred to [facility] Med P.C.: No
[2016-12-09] MEDS ORDERED: MAGNESIUM SULFATE 2 GM in SODIUM CHLORIDE 100 ML IVPB ONE (08:53)
[2016-12-09] MEDS ORDERED: MAGNESIUM SULF 50% (8.12 MEQ/2 ML-1 GM VIAL) IVPB ONE (09:15)
[2016-12-09] MEDS ORDERED: ALBUTEROL SO4 2.5/IPRATROPIUM 0.5 INH SOL 3 ML VIAL.NEB. NEB ONE (09:15)
[2016-12-09] MEDS ORDERED: ALBUTEROL SO4 2.5/IPRATROPIUM 0.5 INH SOL 3 ML VIAL.NEB. NEB PRN (09:38)
[2016-12-09] MEDS: CALCIUM 500MG/VIT-D 200 UNITS COMBO TABLET (FP) PO SCH (09:44)
[2016-12-09] MEDS: CARVEDILOL 6.25 MG TABLET (FP) PO SCH ×2 (09:44→21:57)
[2016-12-09] MEDS: CYANOCOBALAMIN 1,000 MCG TABLET (FP) PO SCH (09:44)
[2016-12-09] MEDS: LEVOFLOXACIN 500 MG IVPB 100 ML IVPB SCH (09:46)
[2016-12-09] MEDS: FAMOTIDINE 20 MG/50 ML IVPB 50 ML IVPB SCH ×2 (09:46→21:58)
[2016-12-09] MEDS: SODIUM CHLORIDE 0.45%/POT 1,000 ML IV SCH (09:48)
[2016-12-09 09:51] LABS: PLATELET ESTIMATE ADEQUATE (NORMAL)
[2016-12-09] MEDS ORDERED: PATIENT'S OWN MEDICATION (NON-FORMULARY) (Calcium Carbonate/Vitamin D3 [Calcium 500-Vit D3 PO SCH (10:00)
[2016-12-09] MEDS: NICOTINE 14 MG/24 HOURS TOPICAL PATCH TD SCH (11:38)
--- NOTE | 2016-12-09 11:49 | PN ---
Progress Note (short form) - Note Progress Note: Patient seen and chart reviewed. Patient with hx breast cancer, prior TIA/CVA on Coumadin and COPD. Has been on Augmentin for ?URI and had recent change in bowel habits - initially diarrhea and then abdominal pain, LLQ with distention and constipation. Admitted with INR >15, mild leukocytosis and CT scan showing bowel distention and likely change in caliber of lumen in LLQ. Suspect patient with inflammatory changes in the sigmoid colon ?related to supratherapeutic INR (?hemorrhagic changes) with ?ileus. Less likely malignancy and no evidence of diverticulitis. Also doubt C diff colitis but agree with obtaining stool studies (when passes stool). Patient feels sightly less distended today with decrease in LLQ tenderness and improved WBC. Would continue close monitoring and keep NPO (except ice chips) in view of decreased BS and AXR showing distended loops of bowel. If increase distention/pain, consider for NG tube for decompression. Will follow; defer :GI endoscopy at this time.
--- NOTE | 2016-12-09 13:12 | CONS ---
DATE OF CONSULTATION: 12/09/2016 Asked to evaluate this 65-year-old female with abdominal pain and distention. HISTORY OF PRESENT ILLNESS: The patient is a 65-year-old female with a history of breast cancer, being followed by Oncology and on Arimidex. She also has underlying COPD and a prior small stroke. She has been on Coumadin daily. The patient states that she received Augmentin a week ago for a possible upper respiratory infection and subsequently developed diarrhea which resolved. However, then, she developed abdominal distention and left lower quadrant pain. The pain appeared to get worse over several days, and her bowel habits changed again to minimal bowel movements and minimal passage of gas. She was admitted via the emergency room with a white count of 11,000, INR greater than 15, and a CAT scan showing some colonic distention to the sigmoid with some change in the caliber of the lumen at this level. There was no obvious diverticular changes or mass seen. The patient did receive vitamin K to correct her markedly elevated INR, and she has been on both Levaquin and Flagyl for possible underlying infection. She has been seen by Surgery and is being followed. A repeat abdominal x-ray today continued to show dilated loops of bowel as previous. The patient has not had a prior colonoscopy. She has no history of diverticular disease, colitis, or other lower GI tract pathology. Family history is, however, notable for mother dying at age 59 of colon cancer. PHYSICAL EXAMINATION: General: The patient is a well-developed female lying in bed in no obvious distress. She has a markedly distended abdomen. Lungs: Grossly clear. Cardiac: Regular rate and rhythm. Abdomen: Distended. Bowel sounds are diminished. A few tinkling bowel sounds are heard. There are mild tympani. There is some mild left lower quadrant discomfort to palpation but no rebound tenderness or guarding. Laboratory tests today include an INR of 6.10, white count at 9.9 with hematocrit of 36.5. Her chemistries are normal, and her prior lipase is normal as well. Patient appears to have marked abdominal distention involving the colon with a mild narrowing or cut-off area near the sigmoid colon. She may have an underlying inflammatory process or colitis, possibly related to the elevated INR, ? hemorrhagic changes. At the present time, she appears to have an ileus with decreased bowel sounds and distention. Her white count has improved. She is on antibiotics and feels better with less distention and tenderness. Would continue the current regimen and follow clinically. Defer sigmoidoscopy or colonoscopy at the present time. When she is able to pass stool, could obtain stool studies to rule out any underlying infection including Clostridium difficile, although this would be unlikely. Thank you. Will follow. CLAUS HOLM M.D. [id number]
[2016-12-09] MEDS: NYSTATIN 100000 UNIT/GM TOPICAL OINTMENT 15 GM TUBE TP SCH ×2 (17:24→21:58)
[2016-12-09] MEDS: ATORVASTATIN CA 20 MG TABLET (FP) PO SCH (21:57)
[2016-12-09] MEDS: amLODIPine BESYLATE 5 MG TABLET (FP) PO SCH (21:57)
[2016-12-09] MEDS: ANASTROZOLE 1 MG TABLET PO SCH (21:57)
--- NOTE | 2016-12-09 22:24 | PN ---
Progress Note (short form) - Note Progress Note: Pt seen and examined in bed. Resting comfortably. No n/v, no pain meds today. No flatus or BM yet. Has had some ice chips. Ambulated. Seen by GI - scope deferred for now. AXR today shows continued colonic distention. Vital Signs Period Temp Pulse Resp BP Sys/Holt Pulse Ox Last 24 Hr 97.9 F-98.8 F 88-94 20-20 118-135/48-66 93-98 PE: A&O abdomen soft, distended, tympanitic tender LLQ, starla laterally, no R/G rectal exam with some external skin tags, normal tone, collapsed vault with no palpable masses, some small pieces of soft dark brown stool in vault, no gross blood no sig LE edema, moving well in bed, warm ext CBC, BMP 12/09/16 07:17 12/09/16 07:17 INR, PTT INR 6.10 (0.82-1.09) H* 12/09/16 07:17 A/P: colonic distention with LLQ pain and tenderness no stool yet for C diff studies INR coming down GI consult noted - ? possible scope when INR low enough? distention and pain improved somewhat continue NPO/IVF except ice chips no acute surgical issues at this time Problem List - Problems (1) LLQ pain Code(s): R10.32 - LEFT LOWER QUADRANT PAIN (2) Dilatation of colon Code(s): K59.39 - OTHER MEGACOLON (3) H/O: CVA (cerebrovascular accident) Code(s): Z86.73 - PRSNL HX OF TIA (TIA), AND CEREB INFRC W/O RESID DEFICITS (4) Supratherapeutic INR Code(s): R79.1 - ABNORMAL COAGULATION PROFILE (5) Hypertension Code(s): I10 - ESSENTIAL (PRIMARY) HYPERTENSION Qualifiers: Hypertension type: essential hypertension Qualified Code(s): I10 - Essential (primary) hypertension; I10 - Essential (primary) hypertension; I10 - Essential (primary) hypertension (6) COPD without exacerbation Code(s): J44.9 - CHRONIC OBSTRUCTIVE PULMONARY DISEASE, UNSPECIFIED (7) Diabetes mellitus type 2, noninsulin dependent Code(s): E11.9 - TYPE 2 DIABETES MELLITUS WITHOUT COMPLICATIONS (8) Cancer of left breast Code(s): C50.912 - MALIGNANT NEOPLASM OF UNSPECIFIED SITE OF LEFT FEMALE BREAST Qualifiers: Breast location: upper outer quadrant of breast Estrogen receptor status: positive Patient sex: female Qualified Code(s): C50.412 - Malignant neoplasm of upper-outer quadrant of left female breast; C50.412 - Malignant neoplasm of upper-outer quadrant of left female breast; C50.412 - Malignant neoplasm of upper-outer quadrant of left female breast; C50.412 - Malignant neoplasm of upper-outer quadrant of left female breast; Z17.0 - Estrogen receptor positive status [ER+]; Z17.0 - Estrogen receptor positive status [ER+]
[2016-12-10] MEDS: METRONIDAZOLE 500 MG PREMIXED 100 ML IVPB SCH ×4 (03:00→22:15)
[2016-12-10] MEDS: INSULIN SLIDING SCALE (NOVOLOG) 1 VIAL SQ SCH ×2 (06:33→12:27)
--- NOTE | 2016-12-10 07:50 | PN ---
Physical Exam: SUBJECTIVE: Patient seen and examined, sitting up in bed, reports feeling much better, denies any nausea or abdominal pain, reports positive flatus, reports feeling hungry OBJECTIVE: Patient is a 65y/o female with a past medical history of hypertension, HLD, NIDDM, breast CA (armidex), embolic CVA (coumadin) and COPD. Patient was admitted from the emergency department for supratherepeutic INR and intractable abdominal pain. Vital Signs Period Temp Pulse Resp BP Sys/Holt Pulse Ox Last 24 Hr 97.9 F-98.3 F 88-90 18-20 121-154/55-66 95-98 GENERAL: The patient is awake, alert, and fully oriented, in no acute distress. HEAD: Normal with no signs of trauma. EYES: PERRL, extraocular movements intact, cataract to left eye sclera anicteric , conjunctiva clear. No ptosis. ENT: Ears normal, nares patent, oropharynx clear without exudates, moist mucous membranes. NECK: Trachea midline, full range of motion, supple. LUNGS: Breath sounds equal, clear to auscultation bilaterally, no wheezes, no crackles, no accessory muscle use. HEART: Regular rate and rhythm, S1, S2 without murmur, rub or gallop. ABDOMEN: Soft, slightly distended, hypoactive bowel sounds, nontender, no guarding, no rebound, no hepatosplenomegaly, no masses. EXTREMITIES: 2+ pulses, warm, well-perfused, no edema. NEUROLOGICAL: Cranial nerves II through XII grossly intact. Normal speech, gait not observed. PSYCH: Normal mood, normal affect. SKIN: Warm, dry, normal turgor, no rashes or lesions noted Laboratory Results - last 24 hr CBC WBC 6.4 K/mm3 (4.0-10.8) D 12/10/16 07:00 RBC 3.60 M/mm3 (3.60-5.2) 12/10/16 07:00 Hgb 11.4 GM/dl (10.7-15.3) 12/10/16 07:00 Hct 33.4 % (32.4-45.2) 12/10/16 07:00 MCV 92.7 fl (80-96) 12/10/16 07:00 MCH 31.7 pg (25.7-33.7) 12/10/16 07:00 MCHC 34.2 g/dl (32.0-36.0) 12/10/16 07:00 RDW 13.8 % (11.6-15.6) 12/10/16 07:00 Plt Count 249 K/MM3 (134-434) 12/10/16 07:00 MPV 8.5 fl (7.5-11.1) 12/10/16 07:00 Neutrophils % 83.0 % (42.8-82.8) H 12/10/16 07:00 Neutrophils % (Manual) 37 % (42.8-82.8) L 12/09/16 07:17 Band Neuts % (Manual) 42 % (0-10) H 12/09/16 07:17 Lymphocytes % 10.4 % (8-40) 12/10/16 07:00 Lymphocytes % (Manual) 14 % (8-40) 12/09/16 07:17 Monocytes % 6.0 % (3.8-10.2) 12/10/16 07:00 Monocytes % (Manual) 7 % (3.8-10.2) 12/09/16 07:17 Eosinophils % 0.5 % (0-4.5) 12/10/16 07:00 Basophils % 0.1 % (0-2.0) 12/10/16 07:00 Platelet Estimate Adequate (NORMAL) 12/09/16 07:17 CMP Sodium 135 mmol/L (136-145) L 12/10/16 07:00 Potassium 3.4 mmol/L (3.5-5.1) L 12/10/16 07:00 Chloride 99 mmol/L (98-107) 12/10/16 07:00 Carbon Dioxide 25 mmol/L (22-28) 12/10/16 07:00 Anion Gap 11 (8-16) 12/10/16 07:00 BUN 19 mg/dl (7-18) H D 12/10/16 07:00 Creatinine 0.5 mg/dl (0.6-1.3) L D 12/10/16 07:00 Creat Clearance w eGFR > 60 (>60) 12/10/16 07:00 POC Glucometer 100 UNITS (()) 12/10/16 12:26 Random Glucose 90 mg/dl (74-106) D 12/10/16 07:00 Calcium 7.8 mg/dl (8.4-10.2) L 12/10/16 07:00 Phosphorus 2.6 mg/dl (2.5-4.6) 12/10/16 07:00 Magnesium 1.7 mg/dL (1.8-2.4) L D 12/10/16 07:00 Total Bilirubin 0.8 mg/dl (0.2-1.0) D 12/10/16 07:00 AST 14 U/L (10-42) 12/10/16 07:00 ALT 8 U/L (10-40) L 12/10/16 07:00 Alkaline Phosphatase 64 U/L (32-92) D 12/10/16 07:00 Total Protein 5.0 g/dl (6.4-8.3) L D 12/10/16 07:00 Albumin 2.3 g/dl (3.5-5.0) L D 12/10/16 07:00 Lipase 21 U/L (22-51) L 12/08/16 11:50 Active Medications Generic Name Dose Route Start Last Admin Trade Name Freq PRN Reason Stop Dose Admin Albuterol Sulfate 2 puff 12/08/16 16:20 Ventolin Hfa Inhaler - IH Q4H PRN SHORT OF BREATH/WHEEZING Albuterol/Ipratropium 1 amp 12/09/16 09:38 Duoneb - NEB Q6H PRN SHORTNESS OF BREATH Amlodipine Besylate 5 mg 12/08/16 22:00 12/09/16 21:57 Norvasc - PO 5 mg HS CASPER Administration Anastrozole 1 mg 12/08/16 22:00 12/09/16 21:57 Arimidex - PO 1 mg HS CASPER Administration Atorvastatin Calcium 20 mg 12/08/16 22:00 12/09/16 21:57 Lipitor - PO 20 mg HS CASPER Administration Calcium Carbonate/Cholecalciferol 2 tab 12/09/16 10:00 12/09/16 09:44 Os-Ace 500+D - PO 2 tab DAILY CASPER Administration Carvedilol 6.25 mg 12/08/16 22:00 12/09/16 21:57 Coreg - PO 6.25 mg BID CASPER Administration Cyanocobalamin 1,000 mcg 12/09/16 10:00 12/09/16 09:44 Vitamin B12 - PO 1,000 mcg DAILY CASPER Administration Levofloxacin 100 mls @ 100 mls/hr 12/08/16 16:45 12/09/16 09:46 Levaquin 500 Mg Premixed Ivpb - IVPB 100 mls/hr DAILY CASPER Administration Metronidazole 100 mls @ 100 mls/hr 12/08/16 18:30 12/10/16 03:00 Flagyl 500mg Premixed Ivpb - IVPB 100 mls/hr Q6H-IV CASPER Administration Potassium Chloride/Sodium Chloride 1,000 mls @ 100 mls/hr 12/09/16 09:00 09:48 1/2ns+20meq Kcl IV 100 mls/hr ASDIR CASPER Administration Famotidine/Sodium Chloride 50 mls @ 100 mls/hr 12/09/16 10:00 12/09/16 21:58 Pepcid 20 Mg Premixed Ivpb - IVPB 100 mls/hr BID CASPER Administration Insulin Aspart 1 vial 12/08/16 16:30 12/10/16 06:33 Novolog Vial Sliding Scale - SQ Not Given ACHS CASPER Protocol Nicotine 14 mg 12/09/16 10:00 12/09/16 11:38 Nicoderm Patch - TD Not Given DAILY CASPER Nystatin 1 applic 12/09/16 13:30 12/09/16 21:58 Mycostatin Ointment - TP 1 applic BID CASPER Administration Ondansetron HCl 4 mg 12/08/16 15:42 Zofran Injection IVPUSH Q6H PRN NAUSEA Microbiology 12/08/16 17:23 Urine - Urine Clean Catch Urine Culture - Final Contaminated: Please Repeat 12/08/16 12:00 Blood - Peripheral Venous Blood Culture - Preliminary NO GROWTH OBTAINED AFTER 24 HOURS, INCUBATION TO CONTINUE FOR 4 DAYS. 12/08/16 11:25 Blood - Peripheral Venous Blood Culture - Preliminary NO GROWTH OBTAINED AFTER 24 HOURS, INCUBATION TO CONTINUE FOR [address]/ABDOMEN PELVIS CT WITH CONTR HISTORY PROVIDED: IMPRESSION: Moderate colonic distention with caliber change at the level of the proximal sigmoid. No obvious mass or stricture noted. Clinical correlation and follow-up recommended. Please see above discussion. Reported By: Evin Pavon MD 12/08/16 1426 abd xray (12/09/16) dilated loops of bowel no free air ECG Sinus rhythm with fusion complexes LVH vent rate 99, QTC [address]/T changes ASSESSMENT/PLAN: 1) abdominal pain - leukocytosis resolved improved, afebrile, continue to monitor wbc and fever curve - repeat xray final read obtained at 1425, as per radiologist, free air with perforation noted on xray, case discussed with Dr Mitchell, general surgeon, patient to be made NPO for emergent surgical intervention - empiric levaquin(12/08-) and flagyl (12/08-), will uprgrade antibiotic to zosyn - GI, Dr Nicolas, consulted and following - surgery, Dr Mitchell consulted and followed 2) supratherepeutic INR - InR 1.8, emergent surgical intervention-->2 units of FFP on hold 3) urinary tract infection - leukocytes noted in urine, continue levaquin, urine culture contaminated, repeat urine culture ordered to finalize antibiotics 4) hypertension - b/p at goal, continue norvasc 5) copd - wheezing improved, continue duoneb prn - keep spo2 above 92%, with supplemental O2 PRN 6) Breast CA - continue armidex - will require outpatient followup Dr Pete. f/e/n - NPO--IVF - replete magnesium ppx - coumadin - pepcid Dispo: Pt currently requires inpatient management of her emergent condition. patient to be transferred to [facility] for emergent surgical intervention due to patient's comorbidites, patient will require ICU postoperatively Visit type - Emergency Visit Emergency Visit: Yes ED Registration Date: 12/08/16 Care time: The patient presented to the Emergency Department on the above date and was hospitalized for further evaluation of their emergent condition. - New Patient This patient is new to me today: No - Critical Care Critical Care patient: No - Discharge Referral Referred to [facility] Med P.C.: No
[2016-12-10 08:25] LABS: BASOPHIL 0.1 % (0-2.0); EOSINOPHIL 0.5 % (0-4.5); MCH 31.7 pg (25.7-33.7); MCHC 34.2 g/dl (32.0-36.0); MEAN CELL VOLUME 92.7 fl (80-96); MEAN PLT VOLUME 8.5 fl (7.5-11.1); PLATELET COUNT 249 K/MM3 (134-434); RDW 13.8 % (11.6-15.6); WHITE BLOOD COUNT 6.4 K/mm3 (4.0-10.8)
[2016-12-10 08:50] LABS: INR 1.8 (0.82-1.09); PROTHROMBIN TIME (PATIENT) 19.9 SEC (10.2-13.0)
[2016-12-10 09:08] LABS: ALBUMIN 2.3 g/dl (3.5-5.0); ALK PHOS 64 U/L (32-92); ANION GAP 11 (8-16); BILIRUBIN,TOTAL 0.8 mg/dl (0.2-1.0); CALCIUM 7.8 mg/dl (8.4-10.2); CO2 25 mmol/L (22-28); CREATININE 0.5 mg/dl (0.6-1.3); GLUCOSE,RANDOM 90 mg/dl (74-106); MAGNESIUM 1.7 mg/dL (1.8-2.4); PHOSPHOROUS 2.6 mg/dl (2.5-4.6); SGOT/AST 14 U/L (10-42); SGPT/ALT 8 U/L (10-40)
[2016-12-10] MEDS: FAMOTIDINE 20 MG/50 ML IVPB 50 ML IVPB SCH (09:27)
[2016-12-10] MEDS: LEVOFLOXACIN 500 MG IVPB 100 ML IVPB SCH (09:27)
[2016-12-10] MEDS: NICOTINE 14 MG/24 HOURS TOPICAL PATCH TD SCH ×2 (09:29→09:34)
[2016-12-10] MEDS: CALCIUM 500MG/VIT-D 200 UNITS COMBO TABLET (FP) PO SCH (09:29)
[2016-12-10] MEDS: CYANOCOBALAMIN 1,000 MCG TABLET (FP) PO SCH (09:29)
[2016-12-10] MEDS: CARVEDILOL 6.25 MG TABLET (FP) PO SCH (09:29)
[2016-12-10] MEDS: SODIUM CHLORIDE 0.45%/POT 1,000 ML IV SCH (09:29)
--- NOTE | 2016-12-10 09:32 | PN ---
Progress Note (short form) - Note Progress Note: Patient feels better today with less abdominal distention and pain ; has mild LLQ discomfort when sitting up. On antibiotics with improving WBC. Abdomen softer with +BS and less tenderness. Awaiting repeat AXR ; if improved, can begin on trial of PO liquids and monitor. INR, WBC improved. Will follow.
[2016-12-10] MEDS: NYSTATIN 100000 UNIT/GM TOPICAL OINTMENT 15 GM TUBE TP SCH (09:35)
[2016-12-10] MEDS ORDERED: PROPOFOL 1000 MG/100 ML VIAL IVPB ONE (10:25)
[2016-12-10] MEDS ORDERED: MAGNESIUM SULFATE 2 GM in SODIUM CHLORIDE 100 ML IVPB ONE (10:26)
[2016-12-10] MEDS: MAGNESIUM SULF 50% (8.12 MEQ/2 ML-1 GM VIAL) IVPB ONE ×2 (12:11→12:32)
[2016-12-10] MEDS: POTASSIUM CHLORIDE TABS 20 MEQ TABLET.ER (FP) PO SCH ×2 (12:11→12:28)
[2016-12-10] MEDS: LACTOBACILLUS ACIDOPHILUS 1 EACH TAB (FP) PO SCH ×2 (12:11→12:30)
[2016-12-10] MEDS ORDERED: SODIUM CHLORIDE 0.45%/POT 1,000 ML IV SCH ×3 (13:06→15:30)
--- NOTE | 2016-12-10 15:41 | PN ---
Progress Note (short form) - Note Progress Note: Results of AXR noted; free air seen c/w perforation. Agree with plans for OR this pm. Plans per surgery
[2016-12-10] MEDS ORDERED: PROPOFOL 20 ML ONE (16:05)
[2016-12-10] MEDS ORDERED: ROCURONIUM BROMIDE 50 MG/5 ML VIAL ONE (16:05)
--- NOTE | 2016-12-10 17:07 | PN ---
Progress Note (short form) - Note Progress Note: Pt en route from [facility] Chart reviewed earlier today, improvement in pain/tenderness and distention noted with + flatus. Pt was given clears for lunch and had some jello and finnish ice. No distress when nurse was contacted around 2:30pm. XR from this morning seen prior to then and reviewed with radiology, confirming free air and likely perforated colon. Spoke with [employer]OR Hay at that time, pt was made NPO and 2 units FFP ordered to correct am INR of 1.8. Need for emergent OR discussed; pt to be transferred to main [facility] for procedure and possible postop ICU needs. Spoke with patient's by phone as well. Will see patient when she arrives here. Type and screen sent from [facility] for blood products. Pt has been on Levo/Flagyl; will give Zosyn dose preop and continue scheduled Flagyl. ID following. GI note appreciated. Plan is for exploratory laparotomy, possible bowel resection, possible ostomy. Problem List - Problems (1) Perforated viscus Code(s): R19.8 - OTH SYMPTOMS AND SIGNS INVOLVING THE DGSTV SYS AND ABDOMEN (2) LLQ pain Code(s): R10.32 - LEFT LOWER QUADRANT PAIN (3) Dilatation of colon Code(s): K59.39 - OTHER MEGACOLON (4) H/O: CVA (cerebrovascular accident) Code(s): Z86.73 - PRSNL HX OF TIA (TIA), AND CEREB INFRC W/O RESID DEFICITS (5) Supratherapeutic INR Code(s): R79.1 - ABNORMAL COAGULATION PROFILE (6) Hypertension Code(s): I10 - ESSENTIAL (PRIMARY) HYPERTENSION Qualifiers: Hypertension type: essential hypertension Qualified Code(s): I10 - Essential (primary) hypertension; I10 - Essential (primary) hypertension; I10 - Essential (primary) hypertension (7) COPD without exacerbation Code(s): J44.9 - CHRONIC OBSTRUCTIVE PULMONARY DISEASE, UNSPECIFIED (8) Diabetes mellitus type 2, noninsulin dependent Code(s): E11.9 - TYPE 2 DIABETES MELLITUS WITHOUT COMPLICATIONS (9) Cancer of left breast Code(s): C50.912 - MALIGNANT NEOPLASM OF UNSPECIFIED SITE OF LEFT FEMALE BREAST Qualifiers: Breast location: upper outer quadrant of breast Estrogen receptor status: positive Patient sex: female Qualified Code(s): C50.412 - Malignant neoplasm of upper-outer quadrant of left female breast; C50.412 - Malignant neoplasm of upper-outer quadrant of left female breast; C50.412 - Malignant neoplasm of upper-outer quadrant of left female breast; C50.412 - Malignant neoplasm of upper-outer quadrant of left female breast; Z17.0 - Estrogen receptor positive status [ER+]; Z17.0 - Estrogen receptor positive status [ER+]
[2016-12-10] MEDS ORDERED: PIPERACILLIN/TAZOB 4.5 GM 4.5 GM in DEXTROSE 5%-WATER - 100 ML IVPB ONE (17:19)
[2016-12-10] MEDS ORDERED: PIPERACILLIN/TAZOBACTAM 4.5 GM VIAL IVPB ONE (18:15)
[2016-12-10] MEDS ORDERED: DESFLURANE GAS 240 ML BOTTLE IH ONE (18:55)
[2016-12-10] MEDS ORDERED: ONDANSETRON 4 MG/2 ML VIAL ONE (18:56)
[2016-12-10] MEDS ORDERED: HYDROmorphone HCL/PF 1 MG/ML VIAL (FOR PYXIS CHARGING ONLY) ONE ×2 (19:15→21:29)
[2016-12-10] MEDS ORDERED: MIDAZOLAM HCL 2 MG/2 ML SINGLE DOSE VIAL ONE (21:49)
[2016-12-10] MEDS ORDERED: WARFARIN NA 3 MG TABLET PO SCH (22:00)
[2016-12-10] MEDS ORDERED: METRONIDAZOLE 500 MG PREMIXED 100 ML IVPB ONE (22:02)
[2016-12-10] MEDS ORDERED: HYDROmorphone HCL CARPU-JECT 1 MG/1 ML DISP.SYRIN IVPUSH PRN (22:03)
[2016-12-10] MEDS ORDERED: ONDANSETRON 4 MG/2 ML VIAL IVPUSH PRN (22:03)
[2016-12-10] MEDS ORDERED: PROPOFOL 100 ML IVPB SCH (22:15)
[2016-12-10] MEDS ORDERED: SODIUM CHLORIDE 1,000 ML IV SCH (22:15)
--- NOTE | 2016-12-10 22:45 | OP ---
Operative Note - Note: Operative Date: 12/10/16 Pre-Operative Diagnosis: perforated colon Operation: sigmoid colon resection, mobilization of splenic flexure, colostomy ( Dwaine's procedure) Findings: inflamed segment of sigmoid colon with necrotic patch and perforation; no palpable mass, cloudy peritoneal fluid cultured on entry; stool spillage during mobilization of colon washed out with saline; normal appendix, no evidence of perforation elsewhere Post-Operative Diagnosis: Other (perforated sigmoid colon,) Surgeon: Isreal Mitchell Client Representative: Magan Pereira Anesthesiologist/DEEP SEA DIVER: Rajeev Hernandez Anesthesia: General Specimens Removed: sigmoid colon, additional proximal portion of colon to pathology; peritoneal fluid culture to micro Estimated Blood Loss (mls): 250 Drains & Tubes with Location: Escobar, NGT, VALE left in pelvis and LLQ gutter to bulb suction Drains, Volume Out (mls): 50 (UOP) Blood Volume Replaced (mls): 200 (2 units FFP (not sure of volume)) Fluid Volume Replaced (mls): 6,000 (3L NS, 3L LR) Operative Report Dictated: Yes
--- NOTE | 2016-12-10 22:57 | CONSULT ---
Consult Consult Specialty:: Pulmonary Critical Care Reason for Consultation:: Perforated bowel, s/p ex lap - History of Present Illness Chief Complaint: Perforated bowel History of Present Illness: 65 yo with h/o HTN, HL, ?COPD, active smoker, recently diagnosed breast cancer who presented to [facility] on 12/08 c/o LLQ pain for the past week. Initial CT A/P showed colonic dilation with no free air. She was treated with levaquin/flagyl for possible colitis with reported improvement of symptoms, however today CXR noted with free air. Pt was taken to OR and underwent sigmoid colon resection, colon washout (stool spillage) and creation of colostomy. Tolerated surgery well, no significant blood loss reported (~250cc). She was hemodynamically stable throughout. Has recd 6L of fluids (3NS and 3LR) and 2 units of FFP prior to procedure to correct INR of 1.8. Current Medications Albuterol Sulfate (Ventolin Hfa Inhaler -) 2 puff IH Q4H PRN PRN Reason: SHORT OF BREATH/WHEEZING Albuterol/Ipratropium (Duoneb -) 1 amp NEB Q6H PRN PRN Reason: SHORTNESS OF BREATH Hydromorphone HCl (Dilaudid Injection -) 0.5 mg IVPUSH [id number] PRN PRN Reason: PAIN Stop: 12/13/16 22:04 Metronidazole (Flagyl 500mg Premixed Ivpb -) 100 mls @ 100 mls/hr IVPB Q6H-IV [facility] Last Admin: 12/10/16 15:06 Dose: 100 mls/hr Famotidine/Sodium Chloride (Pepcid 20 Mg Premixed Ivpb -) 50 mls @ 100 mls/hr IVPB BID [facility] Last Admin: 12/10/16 09:27 Dose: 100 mls/hr Potassium Chloride/Sodium Chloride (1/2ns+20meq Kcl) 1,000 mls @ 125 mls/hr IV ASDIR [facility] Last Admin: 12/10/16 15:28 Dose: 125 mls/hr Propofol (Diprivan -) 100 mls @ 2.409 mls/hr IVPB TITR [facility]; 5 MCG/KG/MIN PRN Reason: Protocol Sodium Chloride (Normal Saline -) 1,000 mls @ 125 mls/hr IV ASDIR [facility] Insulin Aspart (Novolog Vial Sliding Scale -) 1 vial SQ ACHS [facility] PRN Reason: Protocol Last Admin: 12/10/16 12:27 Dose: Not Given Nicotine (Nicoderm Patch -) 14 mg TD DAILY [facility] Last Admin: 12/10/16 09:34 Dose: Not Given Nystatin (Mycostatin Ointment -) 1 applic TP BID [facility] Last Admin: 12/10/16 09:35 Dose: 1 applic Ondansetron HCl (Zofran Injection) 4 mg IVPUSH Q6H PRN PRN Reason: NAUSEA Ondansetron HCl (Zofran Injection) 4 mg IVPUSH Q6H PRN PRN Reason: NAUSEA AND/OR VOMITING Stop: 12/11/16 04:04 Piperacillin Sod/Tazobactam Sod (Zosyn 4.5gm Ivpb (Pre-Docked)) 4.5 gm IVPB ONCE ONE Stop: 12/11/16 02:01 - Past Medical History PATIENT CARRIER: Yes: CVA (no residual) Cardio/Vascular: Yes: HTN, Hyperlipdemia Pulmonary: Yes: COPD Gastrointestinal: Yes: Other (obesity) ...: No Endocrine: Yes: Diabetes Mellitus Dermatology: Yes: Basal Cell (multiple sites removed) Additional Medical History: legally blind, 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 No: Colonoscopy (never had) Additional Surgical History: basal cell CA removed from lip, back, right forearm - Alcohol/Substance Use Hx Alcohol Use: No (social in past, not recently) History of Substance Use: reports: None - Smoking History Smoking history: Current every day smoker Have you smoked in the past 12 months: Yes Aproximately how many cigarettes per day: 20 (2ppd x 50y, cut down to 1ppd ~ 2012 after stroke) - Social History Usual Living Arrangement: With Spouse Home Medications - Allergies Allergies/Adverse Reactions: Allergies Allergy/AdvReac Type Severity Reaction Status Date / Time No Known Allergies Allergy Verified 12/08/16 11:22 - Home Medications Home Medications: Ambulatory Orders Atorvastatin Ca [Lipitor] 20 mg PO HS #0 tablet 10/31/12 Carvedilol [Coreg] 6.25 mg PO BID 01/15/13 Warfarin Na [Coumadin -] 6 mg PO HS #0 07/11/14 Albuterol Sulfate Inhaler - [Ventolin HFA Inhaler -] 2 inh IH Q4H PRN #1 inh Metformin HCl [Glucophage] 1,000 mg PO BID 05/24/16 Amlodipine Besylate [Norvasc -] 5 mg PO HS 12/08/16 Anastrozole [Arimidex -] 1 mg PO HS 12/08/16 Calcium Carbonate/Vitamin D3 [Calcium 500-Vit D3 600 Tablet] 2 each PO DAILY 11/16 Cyanocobalamin (Vitamin B-12) [B-12] 1,000 mcg PO DAILY 12/08/16 Family Disease History - Family Disease History Other Family History: multiple family members with cancer history Physical Exam Vital Signs: Vital Signs Temperature 99.5 F 12/10/16 16:25 Pulse Rate 77 12/10/16 22:09 Respiratory Rate 12 12/10/16 22:09 Blood Pressure 157/57 12/10/16 16:25 O2 Sat by Pulse Oximetry (%) 100 12/10/16 22:09 Eyes: Yes: Other (R eye with cataract, L pinpoint) HENT: Yes: Other (orbital edema, johan ears edematous. NG tube in place. ETT in place) Cardiovascular: Yes: Regular Rate and Rhythm Respiratory: Yes: CTA Bilaterally Gastrointestinal: Yes: Other (soft, midline scar with dressing intact, L sided colostomy bag, R VALE drain draining serosanguinous fluid) Labs: CBC, BMP 12/10/16 07:00 12/10/16 07:00 Imaging - Results Chest X-ray: Image Reviewed Problem List - Problems (1) COPD without exacerbation Code(s): J44.9 - CHRONIC OBSTRUCTIVE PULMONARY DISEASE, UNSPECIFIED (2) Cancer of left breast Code(s): C50.912 - MALIGNANT NEOPLASM OF UNSPECIFIED SITE OF LEFT FEMALE BREAST Qualifiers: Breast location: upper outer quadrant of breast Estrogen receptor status: positive Patient sex: female Qualified Code(s): C50.412 - Malignant neoplasm of upper-outer quadrant of left female breast; C50.412 - Malignant neoplasm of upper-outer quadrant of left female breast; C50.412 - Malignant neoplasm of upper-outer quadrant of left female breast; C50.412 - Malignant neoplasm of upper-outer quadrant of left female breast; Z17.0 - Estrogen receptor positive status [ER+]; Z17.0 - Estrogen receptor positive status [ER+] (3) Diabetes mellitus type 2, noninsulin dependent Code(s): E11.9 - TYPE 2 DIABETES MELLITUS WITHOUT COMPLICATIONS (4) Dilatation of colon Code(s): K59.39 - OTHER MEGACOLON (5) H/O: CVA (cerebrovascular accident) Code(s): Z86.73 - PRSNL HX OF TIA (TIA), AND CEREB INFRC W/O RESID DEFICITS (6) Hypertension Code(s): I10 - ESSENTIAL (PRIMARY) HYPERTENSION Qualifiers: Hypertension type: essential hypertension Qualified Code(s): I10 - Essential (primary) hypertension; I10 - Essential (primary) hypertension; I10 - Essential (primary) hypertension (7) Intractable abdominal pain Code(s): R10.9 - UNSPECIFIED ABDOMINAL PAIN (8) LLQ pain Code(s): R10.32 - LEFT LOWER QUADRANT PAIN Assessment/Plan A/P: 65 yo with h/o HTN, HL, COPD, DM, CVA, active smoker, recently diagnosed breast cancer who presented to [facility] on 12/08 c/o LLQ pain for the past week. Initially was treated for colitis with course c/p perforated bowel on 12/10. Now s/p sigmoid colon resection, colon washout (stool spillage) and creation of colostomy. Admitted to ICU for post op monitoring. -surgery following -monitor VALE output -fluids post op -strict NPO -NGT -post op labs -keep intubated overnight -ABG --> adjust vent accordingly -propofol for sedation -dilaudid prn for pain -normal transfusion thresholds -cont zosyn/flagyl -d/c levaquin -ID to see pt in AM -hold all antiHTN (carvedilol and amlodipine ) [facility] Critical Care time: 35 Min
[2016-12-10 23:14] LABS: MCH 30.9 pg (25.7-33.7); MCHC 32.9 g/dl (32.0-36.0); MEAN CELL VOLUME 93.8 fl (80-96); MEAN PLT VOLUME 7.8 fl (7.5-11.1); PLATELET COUNT 257 K/MM3 (134-434); RDW 14.3 % (11.6-15.6); WHITE BLOOD COUNT 4.5 K/mm3 (4.0-10.0)
[2016-12-10 23:26] LABS: ARTERIAL BLD GAS O2 SATURATION 93.3 % (90-98.9); ARTERIAL BLOOD GAS BASE EXCESS -6.8 meq/l (-2-2); ARTERIAL BLOOD GAS HCO3 20.9 meq/L (22-26); ARTERIAL BLOOD GAS PO2 83.3 mmHg (80-100)
[2016-12-10 23:28] LABS: INR 1.58 (0.82-1.09); PROTHROMBIN TIME (PATIENT) 17.9 SEC (9.98-11.88)
[2016-12-10 23:29] LABS: LPM/O2% 50; PT. ON O2? YES
[2016-12-10 23:30] LABS: MECH. VENT. YES; TYPE OF O2 MECH VENT; VENT RATE 12; VT/PRESS 450
[2016-12-10 23:33] LABS: ARTERIAL BLOOD GAS pH 7.23 (7.35-7.45)
[2016-12-10 23:34] LABS: ANION GAP 8 (8-16); CO2 22 mmol/L (21-32); CREATININE 0.3 mg/dL (0.55-1.02); GLUCOSE,RANDOM 144 mg/dL (74-106); MAGNESIUM 1.4 mg/dL (1.8-2.4); PHOSPHOROUS 1.8 mg/dL (2.5-4.9)
[2016-12-10 23:36] LABS: CALCIUM 6.3 mg/dL (8.5-10.1)
[2016-12-11] MEDS ORDERED: MAGNESIUM SULF 50% (8.12 MEQ/2 ML-1 GM VIAL) ONE (00:03)
[2016-12-11] MEDS ORDERED: MAGNESIUM SULF 50% (8.12 MEQ/2 ML-1 GM VIAL) IVPB ONE (00:07)
[2016-12-11] MEDS ORDERED: POTASSIUM PHOSPHATE 22 MM in DEXTROSE 5%-WATER - 250 ML IVPB ONE (00:08)
[2016-12-11] MEDS ORDERED: LACTATED RINGERS SOLUTION 1,000 ML IV SCH (00:15)
[2016-12-11] MEDS ORDERED: KCL 10 MEQ IVPB 100 ML IVPB ONE (00:30)
[2016-12-11] MEDS: INSULIN SLIDING SCALE (NOVOLOG) 1 VIAL SQ SCH ×4 (00:42→17:57)
[2016-12-11] MEDS: FAMOTIDINE 20 MG/50 ML IVPB 50 ML IVPB SCH ×3 (00:43→21:11)
[2016-12-11] MEDS: NYSTATIN 100000 UNIT/GM TOPICAL OINTMENT 15 GM TUBE TP SCH ×3 (00:43→21:10)
[2016-12-11] MEDS ORDERED: POTASSIUM PHOSPHATE 15 MM in DEXTROSE 5%-WATER - 250 ML IVPB ONE (01:40)
[2016-12-11] MEDS ORDERED: PIPERACILLIN/TAZOB 4.5 GM/100 ML PRE-DOCKED IVPB ONE (02:00)
[2016-12-11] MEDS: METRONIDAZOLE 500 MG PREMIXED 100 ML IVPB SCH ×4 (03:00→20:37)
[2016-12-11 06:03] LABS: BASOPHIL 0.3 % (0-2.0); EOSINOPHIL 0.4 % (0-4.5); MCH 31.9 pg (25.7-33.7); MEAN PLT VOLUME 8.4 fl (7.5-11.1); NEUTROPHILS 90.7 % (42.8-82.8); PLATELET COUNT 264 K/MM3 (134-434); RDW 14.5 % (11.6-15.6)
[2016-12-11 06:12] LABS: INR 1.53 (0.82-1.09); PROTHROMBIN TIME (PATIENT) 17.3 SEC (9.98-11.88)
[2016-12-11 06:36] LABS: ANION GAP 9 (8-16); CO2 23 mmol/L (21-32); CREATININE 0.4 mg/dL (0.55-1.02); PHOSPHOROUS 1.9 mg/dL (2.5-4.9)
[2016-12-11 07:00] LABS: GLUCOSE,RANDOM 104 mg/dL (74-106)
[2016-12-11 07:01] LABS: CALCIUM 6.2 mg/dL (8.5-10.1)
[2016-12-11 08:20] LABS: ARTERIAL BLD GAS O2 SATURATION 98.7 % (90-98.9); ARTERIAL BLOOD GAS BASE EXCESS -4.3 meq/l (-2-2); ARTERIAL BLOOD GAS HCO3 20.4 meq/L (22-26); ARTERIAL BLOOD GAS pH 7.35 (7.35-7.45)
[2016-12-11 08:25] LABS: ALLENS TEST POSITIVE; ART PUNCT SITE RIGHT RADIAL; PT. ON O2? YES
[2016-12-11 08:26] LABS: LPM/O2% 50%; MECH. VENT. Y; TYPE OF O2 VENT; VENT RATE 20; VT/PRESS 450
--- NOTE | 2016-12-11 08:53 | PN ---
Progress Note (short form) - Note Progress Note: Post op day#1.S/p Exploratory lapratomy with sigmoid colectomy and colostomy under GA uneventful.P 80,BP125/59 and Spo2 100% on O2 50%.Patient stable and intubated.No any anesthesia related problem.Patient DC from the anesthesia care.
[2016-12-11] MEDS ORDERED: NAPH,MB-DB/K PH,MBDB POWDER PACKET PO ONE (09:00)
[2016-12-11] MEDS ORDERED: PT OWN MED DRAWER 7, Y5N ONE ×2 (09:19→10:14)
[2016-12-11 09:39] LABS: ALBUMIN 1.4 g/dl (3.4-5.0)
[2016-12-11 09:40] LABS: ALK PHOS 51 U/L (45-117); BILIRUBIN,TOTAL 0.8 mg/dL (0.2-1.0); TOT PROT 3.7 g/dl (6.4-8.2)
[2016-12-11 09:53] LABS: BILIRUBIN,DIRECT < 0.1 mg/dL (0.0-0.2); SGOT/AST 23 U/L (15-37); SGPT/ALT 14 U/L (12-78)
[2016-12-11 09:58] LABS: ALBUMIN 1.5 g/dl (3.4-5.0); ALK PHOS 55 U/L (45-117); ANION GAP 10 (8-16); BILIRUBIN,TOTAL 0.4 mg/dL (0.2-1.0); CALCIUM 7.5 mg/dL (8.5-10.1); CO2 22 mmol/L (21-32); CREATININE 0.5 mg/dL (0.55-1.02); GLUCOSE,RANDOM 167 mg/dL (74-106); SGOT/AST 21 U/L (15-37); SGPT/ALT 11 U/L (12-78); TOT PROT 3.9 g/dl (6.4-8.2)
[2016-12-11] MEDS ORDERED: PIPERACILLIN/TAZOB 4.5 GM 100 ML IVPB ONE (10:00)
[2016-12-11] MEDS: NICOTINE 14 MG/24 HOURS TOPICAL PATCH TD SCH (10:11)
--- NOTE | 2016-12-11 10:33 | PN ---
Progress Note (short form) - Note Progress Note: Covering Dr Nicolas per his request. Vital Signs Temperature 98.8 F 12/11/16 10:00 Pulse Rate 82 12/11/16 10:10 Respiratory Rate 20 12/11/16 10:10 Blood Pressure 123/58 12/11/16 10:00 O2 Sat by Pulse Oximetry (%) 100 12/11/16 10:11 CMP Sodium 138 mmol/L (136-145) 12/11/16 09:15 Potassium 4.3 mmol/L (3.5-5.1) 12/11/16 09:15 Chloride 106 mmol/L (98-107) 12/11/16 09:15 Carbon Dioxide 22 mmol/L (21-32) 12/11/16 09:15 Anion Gap 10 (8-16) 12/11/16 09:15 BUN 14 mg/dL (7-18) 12/11/16 09:15 Creatinine 0.5 mg/dL (0.55-1.02) L D 12/11/16 09:15 Creat Clearance w eGFR > 60 (>60) 12/11/16 09:15 POC Glucometer 100 UNITS (()) 12/10/16 12:26 Random Glucose 167 mg/dL (74-106) H D 12/11/16 09:15 Lactic Acid 1.0 mmol/L (0.4-2.0) 12/10/16 22:55 Calcium 7.5 mg/dL (8.5-10.1) L D 12/11/16 09:15 Phosphorus 1.9 mg/dL (2.5-4.9) L 12/11/16 05:00 Magnesium mg/dL (1.8-2.4) 12/11/16 05:00 Total Bilirubin 0.4 mg/dL (0.2-1.0) D 12/11/16 09:15 Direct Bilirubin < 0.1 mg/dL (0.0-0.2) 12/11/16 05:00 AST 21 U/L (15-37) 12/11/16 09:15 ALT 11 U/L (12-78) L D 12/11/16 09:15 Alkaline Phosphatase 55 U/L (45-117) 12/11/16 09:15 Total Protein 3.9 g/dl (6.4-8.2) L 12/11/16 09:15 Albumin 1.5 g/dl (3.4-5.0) L 12/11/16 09:15 Lipase 21 U/L (22-51) L 12/08/16 11:50 CBC WBC 10.0 K/mm3 (4.0-10.0) D 12/11/16 05:00 RBC 3.69 M/mm3 (3.60-5.2) 12/11/16 05:00 Hgb 11.8 GM/dL (10.7-15.3) 12/11/16 05:00 Hct 34.7 % (32.4-45.2) 12/11/16 05:00 MCV 94.0 fl (80-96) 12/11/16 05:00 MCH 31.9 pg (25.7-33.7) 12/11/16 05:00 MCHC 34.0 g/dl (32.0-36.0) 12/11/16 05:00 RDW 14.5 % (11.6-15.6) 12/11/16 05:00 Plt Count 264 K/MM3 (134-434) 12/11/16 05:00 MPV 8.4 fl (7.5-11.1) 12/11/16 05:00 Neutrophils % 90.7 % (42.8-82.8) H D 12/11/16 05:00 Neutrophils % (Manual) 37 % (42.8-82.8) L 12/09/16 07:17 Band Neuts % (Manual) 42 % (0-10) H 12/09/16 07:17 Lymphocytes % 4.9 % (8-40) L D 12/11/16 05:00 Lymphocytes % (Manual) 14 % (8-40) 12/09/16 07:17 Monocytes % 3.7 % (3.8-10.2) L 12/11/16 05:00 Monocytes % (Manual) 7 % (3.8-10.2) 12/09/16 07:17 Eosinophils % 0.4 % (0-4.5) 12/11/16 05:00 Basophils % 0.3 % (0-2.0) 12/11/16 05:00 Platelet Estimate Adequate (NORMAL) 12/09/16 07:17 Microbiology 12/10/16 11:47 Urine - Urine Clean Catch Urine Culture - Final NO GROWTH OBTAINED 12/08/16 12:00 Blood - Peripheral Venous Blood Culture - Preliminary NO GROWTH OBTAINED AFTER 48 HOURS, INCUBATION TO CONTINUE FOR 3 DAYS. 12/08/16 11:25 Blood - Peripheral Venous Blood Culture - Preliminary NO GROWTH OBTAINED AFTER 48 HOURS, INCUBATION TO CONTINUE FOR 3 DAYS. 12/08/16 17:23 Urine - Urine Clean Catch Urine Culture - Final Contaminated: Please Repeat Active Medications Albuterol Sulfate (Ventolin Hfa Inhaler -) 2 puff IH Q4H PRN PRN Reason: SHORT OF BREATH/WHEEZING Albuterol/Ipratropium (Duoneb -) 1 amp NEB Q6H PRN PRN Reason: SHORTNESS OF BREATH Hydromorphone HCl (Dilaudid Injection -) 0.5 mg IVPUSH [id number] PRN PRN Reason: PAIN Stop: 12/13/16 22:04 Metronidazole (Flagyl 500mg Premixed Ivpb -) 100 mls @ 100 mls/hr IVPB Q6H-IV [facility] Last Admin: 12/11/16 10:11 Dose: 100 mls/hr Famotidine/Sodium Chloride (Pepcid 20 Mg Premixed Ivpb -) 50 mls @ 100 mls/hr IVPB BID [facility] Last Admin: 12/11/16 10:11 Dose: 100 mls/hr Potassium Chloride/Sodium Chloride (1/2ns+20meq Kcl) 1,000 mls @ 125 mls/hr IV ASDIR [facility] Last Admin: 12/10/16 15:28 Dose: 125 mls/hr Propofol (Diprivan -) 100 mls @ 2.409 mls/hr IVPB TITR [facility]; 5 MCG/KG/MIN PRN Reason: Protocol Last Admin: 12/10/16 22:15 Dose: 19.269 mls/hr Sodium Chloride (Normal Saline -) 1,000 mls @ 125 mls/hr IV ASDIR [facility] Last Admin: 12/10/16 23:00 Dose: 125 mls/hr Lactated Ringer's (Lactated Ringers Solution) 1,000 mls @ 125 mls/hr IV ASDIR [facility] Last Admin: 12/11/16 00:46 Dose: 125 mls/hr Insulin Aspart (Novolog Vial Sliding Scale -) 1 vial SQ ACHS [facility] PRN Reason: Protocol Last Admin: 12/11/16 07:36 Dose: Not Given Nicotine (Nicoderm Patch -) 14 mg TD DAILY [facility] Last Admin: 12/11/16 10:11 Dose: 14 mg Nystatin (Mycostatin Ointment -) 1 applic TP BID [facility] Last Admin: 12/11/16 00:43 Dose: Not Given Ondansetron HCl (Zofran Injection) 4 mg IVPUSH Q6H PRN PRN Reason: NAUSEA POD 1. No events. Sedated. On ventilatory support. Case discussed with the surgeon at bedside. Awaiting for specimen pathology results. Care and management as per Surgery and ICU teams
--- NOTE | 2016-12-11 10:43 | PN ---
Progress Note, Physician Chief Complaint: abdominal distention, LLQ pain History of Present Illness: s/p sigmoid resection with colostomy (Dwaine's procedure) for perforation of sigmoid yesterday remains intubated and sedated in ICU on 50% FiO2 with good sats, ABG with improving base deficit lactate was 1 postop UOP 250ml overnight, dark brown in Escobar NGT with minimal output VALE drain with 225ml overnight, mostly serous in bulb colostomy with bag ~1/2 full of brown liquid stool - Current Medication List Current Medications: Active Medications Albuterol Sulfate (Ventolin Hfa Inhaler -) 2 puff IH Q4H PRN PRN Reason: SHORT OF BREATH/WHEEZING Albuterol/Ipratropium (Duoneb -) 1 amp NEB Q6H PRN PRN Reason: SHORTNESS OF BREATH Hydromorphone HCl (Dilaudid Injection -) 0.5 mg IVPUSH [id number] PRN PRN Reason: PAIN Stop: 12/13/16 22:04 Metronidazole (Flagyl 500mg Premixed Ivpb -) 100 mls @ 100 mls/hr IVPB Q6H-IV [facility] Last Admin: 12/11/16 10:11 Dose: 100 mls/hr Famotidine/Sodium Chloride (Pepcid 20 Mg Premixed Ivpb -) 50 mls @ 100 mls/hr IVPB BID [facility] Last Admin: 12/11/16 10:11 Dose: 100 mls/hr Potassium Chloride/Sodium Chloride (1/2ns+20meq Kcl) 1,000 mls @ 125 mls/hr IV ASDIR [facility] Last Admin: 12/10/16 15:28 Dose: 125 mls/hr Propofol (Diprivan -) 100 mls @ 2.409 mls/hr IVPB TITR [facility]; 5 MCG/KG/MIN PRN Reason: Protocol Last Admin: 12/10/16 22:15 Dose: 19.269 mls/hr Sodium Chloride (Normal Saline -) 1,000 mls @ 125 mls/hr IV ASDIR [facility] Last Admin: 12/10/16 23:00 Dose: 125 mls/hr Lactated Ringer's (Lactated Ringers Solution) 1,000 mls @ 125 mls/hr IV ASDIR [facility] Last Admin: 12/11/16 00:46 Dose: 125 mls/hr Insulin Aspart (Novolog Vial Sliding Scale -) 1 vial SQ ACHS [facility] PRN Reason: Protocol Last Admin: 12/11/16 07:36 Dose: Not Given Nicotine (Nicoderm Patch -) 14 mg TD DAILY [facility] Last Admin: 12/11/16 10:11 Dose: 14 mg Nystatin (Mycostatin Ointment -) 1 applic TP BID [facility] Last Admin: 12/11/16 00:43 Dose: Not Given Ondansetron HCl (Zofran Injection) 4 mg IVPUSH Q6H PRN PRN Reason: NAUSEA - Objective Vital Signs: Vital Signs Temperature 98.8 F 12/11/16 10:00 Pulse Rate 82 12/11/16 10:10 Respiratory Rate 20 12/11/16 10:10 Blood Pressure 123/58 12/11/16 10:00 O2 Sat by Pulse Oximetry (%) 100 12/11/16 10:11 Vital Signs Period Temp Pulse Resp BP Sys/Holt Pulse Ox Last 24 Hr 97.4 F-100.6 F 76-116 12- 109-164/52-86 90-100 Intake & Output 12/10/16 12/11/16 12/11/16 23:59 07:59 15:59 Intake Total 45456 1764 Output Total 3700 475 Balance 7223 1289 Weight 210 lb 5.136 oz Intake: IV 7000 1264 Diprivan - 100 ml @ 5 MCG 264 /KG/MIN 2.409 mls/hr IVPB TITR [facility] Rx#:[id number] Lactated Ringers Solution 1000 1,000 ml @ 125 mls/hr IV ASDIR [facility] Rx#: [id number] IVPB 500 Blood Product 623 Other 3300 Output: Gastric Drainage 0 Drainage 225 Abdomen 225 Urine 150 250 Escobar 250 Estimated Blood Loss 250 Other 3300 Other: Voiding Method Indwelling Catheter Weight Measurement Method Built in [facility] Constitutional: Yes: Calm, Obese Eyes: Yes: Other (eyes closed, sedated, periorbital edema) HENT: Yes: Atraumatic, Normocephalic, Other (NGT in place) Cardiovascular: Yes: Regular Rate and Rhythm, Murmur Respiratory: Yes: Regular, CTA Bilaterally, Intubated, Mechanically Ventilated Gastrointestinal: Yes: Soft, Abdomen, Obese, Distention (minimal), Tenderness ( grimaces slightly to LLQ palpation), Other (VALE drain from RLQ with serous fluid in bulb; colostomy with somewhat dark mucosa, bag half full of liquid brown stool) ...Rectal Exam: Yes: Deferred Genitourinary: Yes: Escobar Present (brown urine), Oliguria Extremities: Yes: Cool (feet). No: Cyanosis Edema: Yes (generalized) Peripheral Pulses WNL: Yes Integumentary: Yes: Incision (midline wound open above and below umbilicus, clean). No: Jaundice Wound/Incision: Yes: Maria Eugenia Intact (at umbilicus), Dressing Removed (and replaced with saline-dampened roll gauze), Unapproximated (midline) Neurological: Yes: Unresponsive (sedated, not arousable but grimaces to pain) Labs: CBC, BMP 12/11/16 05:00 12/11/16 09:15 INR, PTT INR 1.53 (0.82-1.09) H 12/11/16 05:00 CMP Sodium 138 mmol/L (136-145) 12/11/16 09:15 Potassium 4.3 mmol/L (3.5-5.1) 12/11/16 09:15 Chloride 106 mmol/L (98-107) 12/11/16 09:15 Carbon Dioxide 22 mmol/L (21-32) 12/11/16 09:15 Anion Gap 10 (8-16) 12/11/16 09:15 BUN 14 mg/dL (7-18) 12/11/16 09:15 Creatinine 0.5 mg/dL (0.55-1.02) L D 12/11/16 09:15 Creat Clearance w eGFR > 60 (>60) 12/11/16 09:15 POC Glucometer 100 UNITS (()) 12/10/16 12:26 Random Glucose 167 mg/dL (74-106) H D 12/11/16 09:15 Lactic Acid 1.0 mmol/L (0.4-2.0) 12/10/16 22:55 Calcium 7.5 mg/dL (8.5-10.1) L D 12/11/16 09:15 Phosphorus 1.9 mg/dL (2.5-4.9) L 12/11/16 05:00 Magnesium mg/dL (1.8-2.4) 12/11/16 05:00 Total Bilirubin 0.4 mg/dL (0.2-1.0) D 12/11/16 09:15 Direct Bilirubin < 0.1 mg/dL (0.0-0.2) 12/11/16 05:00 AST 21 U/L (15-37) 12/11/16 09:15 ALT 11 U/L (12-78) L D 12/11/16 09:15 Alkaline Phosphatase 55 U/L (45-117) 12/11/16 09:15 Total Protein 3.9 g/dl (6.4-8.2) L 12/11/16 09:15 Albumin 1.5 g/dl (3.4-5.0) L 12/11/16 09:15 ABG Results ABG pH 7.35 (7.35-7.45) 12/11/16 08:15 ABG pCO2 at Pt Temp 38.0 mmHg (35-45) D 12/11/16 08:15 ABG pO2 at Pt Temp 140.0 mmHg (80-100) H D 12/11/16 08:15 ABG HCO3 20.4 meq/L (22-26) L 12/11/16 08:15 ABG O2 Sat (Measured) 98.7 % (90-98.9) 12/11/16 08:15 ABG O2 Content 16.1 % vol (15-22) 12/11/16 08:15 ABG Base Excess -4.3 meq/l (-2-2) L 12/11/16 08:15 - ....Imaging Chest X-ray: Report Reviewed, Image Reviewed Problem List - Problems (1) Perforated sigmoid colon Assessment/Plan: POD1 s/p sigmoid resection with colostomy (Dwaine's procedure) for perforated sigmoid colon remains intubated and sedated in ICU respiratory status ok - on 50% FiO2 with no acute findings on CXR hemodynamically stable INR still decreasing, lactate was 1 postop third-spacing/SIRS with oliguria and dark urine - would give aggressive IVF resuscitation continue Darren Smith - ID on board NPO/IVF/NGT replete guille Escobar for accurate I/O's colostomy with liquid stool output - check C diff drain with serous fluid midline wound dressing changed - open and clean await pathology Code(s): K63.1 - PERFORATION OF INTESTINE (NONTRAUMATIC) (2) LLQ pain Code(s): R10.32 - LEFT LOWER QUADRANT PAIN (3) Dilatation of colon Assessment/Plan: etiology still unclear - had inflamed segment of sigmoid with perforation at necrotic patch but no significant mass or any purulence could have been C diff related after Augmentin 2 wks ago, but no longer having diarrhea would check stool anyway continuing Flagyl await path from surgery Code(s): K59.39 - OTHER MEGACOLON (4) H/O: CVA (cerebrovascular accident) Assessment/Plan: no residual on coumadin at home holding at this time Code(s): Z86.73 - PRSNL HX OF TIA (TIA), AND CEREB INFRC W/O RESID DEFICITS (5) Supratherapeutic INR Assessment/Plan: has corrected got FFP preop 2 units follow coags eventually to resume home coumadin for h/o CVA Code(s): R79.1 - ABNORMAL COAGULATION PROFILE (6) Hypertension Assessment/Plan: IV meds prn while NPO Code(s): I10 - ESSENTIAL (PRIMARY) HYPERTENSION Qualifiers: Hypertension type: essential hypertension Qualified Code(s): I10 - Essential (primary) hypertension; I10 - Essential (primary) hypertension; I10 - Essential (primary) hypertension (7) COPD without exacerbation Assessment/Plan: nebs prn currently intubated defer to primary team Code(s): J44.9 - CHRONIC OBSTRUCTIVE PULMONARY DISEASE, UNSPECIFIED (8) Diabetes mellitus type 2, noninsulin dependent Assessment/Plan: FS with SSI Code(s): E11.9 - TYPE 2 DIABETES MELLITUS WITHOUT COMPLICATIONS (9) Cancer of left breast Assessment/Plan: has been on Arimidex per family and pt, Dr. Pete does not take her current insurance - they are planning to change oncologists Code(s): C50.912 - MALIGNANT NEOPLASM OF UNSPECIFIED SITE OF LEFT FEMALE BREAST Qualifiers: Breast location: upper outer quadrant of breast Estrogen receptor status: positive Patient sex: female Qualified Code(s): C50.412 - Malignant neoplasm of upper-outer quadrant of left female breast; C50.412 - Malignant neoplasm of upper-outer quadrant of left female breast; C50.412 - Malignant neoplasm of upper-outer quadrant of left female breast; C50.412 - Malignant neoplasm of upper-outer quadrant of left female breast; Z17.0 - Estrogen receptor positive status [ER+]; Z17.0 - Estrogen receptor positive status [ER+] Assessment/Plan This patient is critically ill. Time spent reviewing chart, examining patient, talking with providers and/or family and documentation is 50 minutes.
--- NOTE | 2016-12-11 11:02 | PN ---
Progress Note (short form) - Note Progress Note: Assessment Perforated Sigmoid colon with fecal peritonitis DM Breast CA Issue of ? C diff infection discussed considered Plan Continue Zosyn and metronidazole CRP Cultures Alexander GOMEZ Problem List - Problems (1) Diabetes mellitus type 2, noninsulin dependent Code(s): E11.9 - TYPE 2 DIABETES MELLITUS WITHOUT COMPLICATIONS (2) Perforated sigmoid colon Code(s): K63.1 - PERFORATION OF INTESTINE (NONTRAUMATIC) (3) Cancer of left breast Code(s): C50.912 - MALIGNANT NEOPLASM OF UNSPECIFIED SITE OF LEFT FEMALE BREAST Qualifiers: Breast location: upper outer quadrant of breast Estrogen receptor status: positive Patient sex: female Qualified Code(s): C50.412 - Malignant neoplasm of upper-outer quadrant of left female breast; C50.412 - Malignant neoplasm of upper-outer quadrant of left female breast; C50.412 - Malignant neoplasm of upper-outer quadrant of left female breast; C50.412 - Malignant neoplasm of upper-outer quadrant of left female breast; Z17.0 - Estrogen receptor positive status [ER+]; Z17.0 - Estrogen receptor positive status [ER+]
[2016-12-11] MEDS ORDERED: LACTATED RINGERS SOLUTION 1,000 ML IV STA (11:25)
--- NOTE | 2016-12-11 11:51 | CONS ---
DATE OF CONSULTATION: HISTORY: This is a 66-year-old obese diabetic female admitted from home and has gone to the operating room earlier this morning with findings of a perforated sigmoid colon with fecal peritonitis. She has a history of having recently been diagnosed with breast cancer and had been seen by Dr. Pete within the last few weeks. More recently, she apparently took a course of antibiotic, Augmentin, and by history noted onset of significant diarrhea, which eventually did improve. Three to 4 days prior to admission, she began to note abdominal pain predominantly in her left lower quadrant. She had no further diarrhea at that time. She had low-grade temperature of 99.1 in the emergency room and a white count of 11,000. A CAT scan of the abdomen with IV contrast but not oral contrast showed colonic dilatation to the sigmoid colon but no obvious mass or stricture and no small bowel dilatation, free air noted. Trace pelvic fluid and a small amount of ascites under the liver and spleen noted with no diverticulosis. This morning, the decision was made to take the patient to the operating room for exploratory surgery with digits of a perforated sigmoid colon. She is currently intubated postoperatively, and I am asked to see her regarding ongoing antibiotic management. She has not been febrile and is not currently on pressors. PAST MEDICAL HISTORY: Includes obesity, hyperlipidemia, hypertension, COPD, diagnosis of cancer of the left breast diagnosed in May of this year, multiple basal cell cancers removed. MEDICATIONS: At home include metformin, amlodipine, Arimidex, calcium, vitamin B12, atorvastatin, carvedilol, Coumadin. ALLERGIES: None known. SOCIAL HISTORY: Active smoker for many years. No history of substance abuse. FAMILY HISTORY: Currently unobtainable. REVIEW OF SYSTEMS: Respiratory: Currently intubated. Cardiac: No history of heart murmur, palpitations, prior PR. Gastrointestinal: As noted in history of present illness. Genitourinary: Incontinent of urine with Escobar catheter. Skin: No rash. PHYSICAL EXAMINATION: General: She is a heavy set woman intubated. Vital Signs: Temperature currently 98.8, pulse 82, blood pressure 123/60, respirations 20. HEENT: Reveals an endotracheal tube. Lungs: Clear to auscultation anteriorly. Heart: S1, S2. Regular rhythm without audible murmur or gallop. Abdomen: With a new colostomy and surgical incision noted with Cesar-Norwood drain in the pelvis and left lower quadrant. LABORATORY DATA: The white count is 10,000, hemoglobin 11.8, platelet count 264, INR 1.53. ABG 7.35, 38, 140 on 50% oxygen flow. BUN 14, creatinine 0.5. Liver enzymes within normal limits. Lactic acid 1. Urinalysis with 15-20 WBCs, 2+ leukocyte esterase. Two sets of blood cultures dated December 08 both no growth to date. Urine culture also no growth. A peritoneal culture dated December 10 is currently pending. Chest x-ray dated December 11 has been reviewed and shows no evidence of acute infiltrate. ASSESSMENT: A 66-year-old female with a history of recently diagnosed cancer of the left breast, diabetic, and recent course of Augmentin presents with abdominal distention and initially concern of possible infection with Clostridium difficile. Surgical findings, however, reveal a perforation of the sigmoid colon the etiology of which is currently unclear. She needs to be treated for sepsis related to intra-abdominal source of infection with fecal peritonitis. The case was discussed with Surgery. We will continue with metronidazole given the question of prior possible Clostridium difficile infection and add Zosyn 4.5 g q.8 hours pending peritoneal culture. MISSAEL DAVIS M.D. [id number]
[2016-12-11] MEDS ORDERED: SODIUM CHLORIDE 1,000 ML IV STA (12:15)
[2016-12-11] MEDS ORDERED: HEPARIN NA (PORCINE) 5,000 UNITS/ML 1ML VIAL IVPUSH SCH ×2 (12:30→14:00)
--- NOTE | 2016-12-11 12:56 | PN ---
Teaching Attending Note Name of Resident: Daniel Hanna ATTENDING PHYSICIAN STATEMENT I saw and evaluated the patient. I reviewed the resident's note and discussed the case with the resident. I agree with the resident's findings and plan as documented. SUBJECTIVE: Pt seen and examined in the ICU. s/p ex-lap, found to have necrotic and perforated sigmoid colon with spillage, now s/p sigmoid resection/colostomy. Taken off sedation during rounds, tolerated CPAP/PS and subsequently extubated. OBJECTIVE: Last Vital Signs Temp Pulse Resp BP Pulse Ox 98.8 F 100 H 25 H 152/68 95 12/11/16 10:00 12/11/16 12:11 12/11/16 12:00 12/11/16 12:00 12/11/16 12:11 Intake & Output 12/08/16 12/09/16 12/10/16 12/11/16 23:59 23:59 23:59 23:59 Intake Total 150 1600 98595 1764 Output Total 674 909 3783 475 Balance -150 1050 8573 1289 Weight 175 lb 177 lb 0.012 oz 210 lb 5.136 oz Gen: extubated, mildly tachypneic Heart: tachycardic, regular Lung: decreased breath sounds at the bases Abd: soft, +ostomy pink, +serosanguinous drainage Ext: + edema CBC, BMP 12/11/16 05:00 12/11/16 09:15 Active Medications Acetaminophen (Ofirmev Injection -) 1,000 mg IVPB ONCE ONE Stop: 12/11/16 12:57 Albuterol Sulfate (Ventolin Hfa Inhaler -) 2 puff IH Q4H PRN PRN Reason: SHORT OF BREATH/WHEEZING Albuterol/Ipratropium (Duoneb -) 1 amp NEB Q6H PRN PRN Reason: SHORTNESS OF BREATH Heparin Sodium (Porcine) (Heparin -) 5,000 unit IVPUSH Q8H CASPER Hydromorphone HCl (Dilaudid Injection -) 0.5 mg IVPUSH [id number] PRN PRN Reason: PAIN Stop: 12/13/16 22:04 Metronidazole (Flagyl 500mg Premixed Ivpb -) 100 mls @ 100 mls/hr IVPB Q6H-IV CASPER Last Admin: 12/11/16 10:11 Dose: 100 mls/hr Famotidine/Sodium Chloride (Pepcid 20 Mg Premixed Ivpb -) 50 mls @ 100 mls/hr IVPB BID CASPER Last Admin: 12/11/16 10:11 Dose: 100 mls/hr Potassium Chloride/Sodium Chloride (1/2ns+20meq Kcl) 1,000 mls @ 125 mls/hr IV ASDIR CASPER Last Admin: 12/10/16 15:28 Dose: 125 mls/hr Propofol (Diprivan -) 100 mls @ 2.409 mls/hr IVPB TITR CASPER; 5 MCG/KG/MIN PRN Reason: Protocol Last Admin: 12/10/16 22:15 Dose: 19.269 mls/hr Sodium Chloride (Normal Saline -) 1,000 mls @ 125 mls/hr IV ASDIR CASPER Last Admin: 12/10/16 23:00 Dose: 125 mls/hr Lactated Ringer's (Lactated Ringers Solution) 1,000 mls @ 125 mls/hr IV ASDIR CASPER Last Admin: 12/11/16 00:46 Dose: 125 mls/hr Piperacillin Sod/Tazobactam Sod (Zosyn 4.5gm Ivpb (Pre-Docked)) 100 mls @ 200 mls/hr IVPB Q8H-IV CASPER PRN Reason: Protocol Sodium Chloride (Normal Saline -) 1,000 mls @ 1,000 mls/hr IV ASDIR STA Stop: 12/11/16 13:14 Last Admin: 12/11/16 12:51 Dose: 1,000 mls/hr Insulin Aspart (Novolog Vial Sliding Scale -) 1 vial SQ ACHS CASPER PRN Reason: Protocol Last Admin: 12/11/16 07:36 Dose: Not Given Nicotine (Nicoderm Patch -) 14 mg TD DAILY CASPER Last Admin: 12/11/16 10:11 Dose: 14 mg Nystatin (Mycostatin Ointment -) 1 applic TP BID CASPER Last Admin: 12/11/16 00:43 Dose: Not Given Ondansetron HCl (Zofran Injection) 4 mg IVPUSH Q6H PRN PRN Reason: NAUSEA ASSESSMENT AND PLAN: Perforated Sigmoid Colon Peritonitis s/p ex-lap/sigmoid resection/colostomy Sepsis COPD HTN Hyperlipidemia DM Smoker h/o CVA - IV antibiotics per ID - f/u cultures - pt extubated during rounds - taper FiO2 to keep SpO2 >90% - incentive spirometry - inhaled bronchodilators - monitor urine output, creatinine - IVF boluses to maintain 0.5cc/kg/hr urine - pain control - DVT prophylaxis - continue ICU monitoring critical care time spent in reviewing chart, evaluating patient and formulating plan 40 min
[2016-12-11] MEDS ORDERED: HEMOQUE TEST 1 EACH EACH ONE (13:04)
[2016-12-11] MEDS ORDERED: ACETAMINOPHEN 1000 MG/100 ML VIAL (NON FORMULARY) IVPB ONE (13:15)
[2016-12-11] MEDS: HEPARIN NA (PORCINE) 5,000 UNITS/ML 1ML VIAL SQ SCH ×2 (14:22→21:11)
[2016-12-11] MEDS: SODIUM CHLORIDE 1,000 ML IV SCH (14:24)
--- NOTE | 2016-12-11 15:10 | PN ---
Physical Exam: SUBJECTIVE: 65 yo with h/o HTN, CAD, HL, COPD, CVA, and recently diagnosed breast cancer who initially presented to [facility] (12/08) with one week of LLQ pain. Initial CT depicted colonic dilation with no free air that was treated with levaquin and flagyl for suspected colitis with partial resolution of symptoms. CXR (12/11) showed free air under diaphragm. Pt. underwent Farmer procedure sigmoid colon resection with colostomy and , colon washout for stool spillage 2/2 perforated Sigmoid colon with fecal peritonitis. Patient did well overnight following procedure. She is intubated and hemodynamically stable. She has dark urinary output draining at less than 50 cc/ kg/hr. NGT tube with adequate drainage. OBJECTIVE: Vital Signs Period Temp Pulse Resp BP Sys/Holt Pulse Ox Last 24 Hr 97.4 F-99.5 F 76-102 12-26 119-164/52-86 94-100 GENERAL: The patient is intubated and , in no acute distress. HEAD: Normal with no signs of trauma. EYES: PERRL, extraocular movements intact, sclera anicteric, conjunctiva clear. No ptosis. ENT: Ears normal, nares patent, oropharynx clear without exudates, moist mucous membranes. NECK: Trachea midline, full range of motion, supple. LUNGS: Breath sounds equal, clear to auscultation bilaterally, no wheezes, no crackles, no accessory muscle use. HEART: Regular rate and rhythm, S1, S2 without murmur, rub or gallop. ABDOMEN: Soft, nontender, nondistended, normoactive bowel sounds, no guarding, no rebound, no hepatosplenomegaly, no masses. Colostomy intact LLQ. Midline dressing in place. VALE drain with serosanguinoeus drainage. EXTREMITIES: 2+ pulses, warm, well-perfused, no edema. NEUROLOGICAL: Cranial nerves II through XII grossly intact. gait not observed. SKIN: Warm, dry, normal turgor, no rashes or lesions noted Laboratory Results - last 24 hr 12/10/16 12/10/16 12/10/16 14:20 14:20 22:51 WBC RBC Hgb Hct MCV MCH MCHC RDW Plt Count MPV Neutrophils % Lymphocytes % Monocytes % Eosinophils % Basophils % PT with INR INR PTT (Actin FS) 30.9 D Puncture Site ABG pH ABG pCO2 at Pt Temp ABG pO2 at Pt Temp ABG HCO3 ABG O2 Sat (Measured) ABG O2 Content ABG Base Excess Pancho Test O2 Delivery Device Oxygen Flow Rate Vent Mode Vent Rate Mechanical Rate PEEP Pressure Support Vent Sodium Potassium Chloride Carbon Dioxide Anion Gap BUN Creatinine Creat Clearance w eGFR Random Glucose Lactic Acid Calcium Phosphorus Magnesium Total Bilirubin Direct Bilirubin AST ALT Alkaline Phosphatase Total Protein Albumin Blood Type A POSITIVE A POSITIVE Antibody Screen Negative 12/10/16 12/10/16 12/10/16 22:55 22:55 22:55 WBC 4.5 D RBC 3.65 Hgb 11.3 D Hct 34.3 MCV 93.8 MCH 30.9 MCHC 32.9 RDW 14.3 Plt Count 257 D MPV 7.8 Neutrophils % Lymphocytes % Monocytes % Eosinophils % Basophils % PT with INR 17.90 H INR 1.58 H D PTT (Actin FS) Puncture Site ABG pH ABG pCO2 at Pt Temp ABG pO2 at Pt Temp ABG HCO3 ABG O2 Sat (Measured) ABG O2 Content ABG Base Excess Pancho Test O2 Delivery Device Oxygen Flow Rate Vent Mode Vent Rate Mechanical Rate PEEP Pressure Support Vent Sodium 139 Potassium 3.8 Chloride 109 H Carbon Dioxide 22 D Anion Gap 8 BUN 14 D Creatinine 0.3 L D Creat Clearance w eGFR Random Glucose 144 H Lactic Acid Calcium 6.3 L* D Phosphorus 1.8 L Magnesium 1.4 L Total Bilirubin Direct Bilirubin AST ALT Alkaline Phosphatase Total Protein Albumin Blood Type Antibody Screen 12/10/16 12/10/16 12/11/16 22:55 23:15 05:00 WBC 10.0 D RBC 3.69 Hgb 11.8 Hct 34.7 MCV 94.0 MCH 31.9 MCHC 34.0 RDW 14.5 Plt Count 264 MPV 8.4 Neutrophils % 90.7 H D Lymphocytes % 4.9 L D Monocytes % 3.7 L Eosinophils % 0.4 Basophils % 0.3 PT with INR INR PTT (Actin FS) Puncture Site Md puncture ABG pH 7.23 L* ABG pCO2 at Pt Temp 51.7 H ABG pO2 at Pt Temp 83.3 ABG HCO3 20.9 L ABG O2 Sat (Measured) 93.3 ABG O2 Content 20.2 ABG Base Excess -6.8 L Pancho Test Not applicable O2 Delivery Device Mech vent Oxygen Flow Rate 50 Vent Mode A/c Vent Rate 12 Mechanical Rate Yes PEEP 5.0 Pressure Support Vent 450 Sodium Potassium Chloride Carbon Dioxide Anion Gap BUN Creatinine Creat Clearance w eGFR Random Glucose Lactic Acid 1.0 Calcium Phosphorus Magnesium Total Bilirubin Direct Bilirubin AST ALT Alkaline Phosphatase Total Protein Albumin Blood Type Antibody Screen 12/11/16 12/11/16 12/11/16 05:00 05:00 08:15 WBC RBC Hgb Hct MCV MCH MCHC RDW Plt Count MPV Neutrophils % Lymphocytes % Monocytes % Eosinophils % Basophils % PT with INR 17.30 H INR 1.53 H PTT (Actin FS) Puncture Site Right radial ABG pH 7.35 ABG pCO2 at Pt Temp 38.0 D ABG pO2 at Pt Temp 140.0 H D ABG HCO3 20.4 L ABG O2 Sat (Measured) 98.7 ABG O2 Content 16.1 ABG Base Excess -4.3 L Pancho Test Positive O2 Delivery Device Vent Oxygen Flow Rate 50% Vent Mode A/c Vent Rate 20 Mechanical Rate Y PEEP 5.0 Pressure Support Vent 450 Sodium 136 Potassium Chloride 104 Carbon Dioxide 23 Anion Gap 9 BUN 15 Creatinine 0.4 L D Creat Clearance w eGFR Random Glucose 104 D Lactic Acid Calcium 6.2 L* Phosphorus 1.9 L Magnesium Total Bilirubin 0.8 D Direct Bilirubin < 0.1 AST 23 ALT 14 D Alkaline Phosphatase 51 D Total Protein 3.7 L D Albumin 1.4 L D Blood Type Antibody Screen 12/11/16 09:15 WBC RBC Hgb Hct MCV MCH MCHC RDW Plt Count MPV Neutrophils % Lymphocytes % Monocytes % Eosinophils % Basophils % PT with INR INR PTT (Actin FS) Puncture Site ABG pH ABG pCO2 at Pt Temp ABG pO2 at Pt Temp ABG HCO3 ABG O2 Sat (Measured) ABG O2 Content ABG Base Excess Pancho Test O2 Delivery Device Oxygen Flow Rate Vent Mode Vent Rate Mechanical Rate PEEP Pressure Support Vent Sodium 138 Potassium 4.3 Chloride 106 Carbon Dioxide 22 Anion Gap 10 BUN 14 Creatinine 0.5 L D Creat Clearance w eGFR > 60 Random Glucose 167 H D Lactic Acid Calcium 7.5 L D Phosphorus Magnesium Total Bilirubin 0.4 D Direct Bilirubin AST 21 ALT 11 L D Alkaline Phosphatase 55 Total Protein 3.9 L Albumin 1.5 L Blood Type Antibody Screen Active Medications Generic Name Dose Route Start Last Admin Trade Name Freq PRN Reason Stop Dose Admin Albuterol Sulfate 2 puff 12/08/16 16:20 Ventolin Hfa Inhaler - IH Q4H PRN SHORT OF BREATH/WHEEZING Albuterol/Ipratropium 1 amp 12/09/16 09:38 Duoneb - NEB Q6H PRN SHORTNESS OF BREATH Heparin Sodium (Porcine) 5,000 unit 12/11/16 14:00 12/11/16 14:22 Heparin - SQ 5,000 unit TID CASPER Administration Hydromorphone HCl 0.5 mg 12/10/16 22:03 Dilaudid Injection - IVPUSH 12/13/16 22:04 [id number] PRN PAIN Metronidazole 100 mls @ 100 mls/hr 12/08/16 18:30 12/11/16 14:24 Flagyl 500mg Premixed Ivpb - IVPB 100 mls/hr Q6H-IV CASPER Administration Famotidine/Sodium Chloride 50 mls @ 100 mls/hr 12/09/16 10:00 12/11/16 10:11 Pepcid 20 Mg Premixed Ivpb - IVPB 100 mls/hr BID CASPER Administration Potassium Chloride/Sodium Chloride 1,000 mls @ 125 mls/hr 12/10/16 15:30 15:28 1/2ns+20meq Kcl IV 125 mls/hr ASDIR CASPER Administration Sodium Chloride 1,000 mls @ 125 mls/hr 12/10/16 22:15 12/10/16 23:00 Normal Saline - IV 125 mls/hr ASDIR CASPER Administration Piperacillin Sod/Tazobactam Sod 100 mls @ 200 mls/hr 12/11/16 18:00 Zosyn 4.5gm Ivpb (Pre-Docked) IVPB Q8H-IV CASPER Protocol Sodium Chloride 1,000 mls @ 125 mls/hr 12/11/16 13:45 12/11/16 14:24 Normal Saline - IV 125 mls/hr ASDIR CASPER Administration Insulin Aspart 1 vial 12/08/16 16:30 12/11/16 13:10 Novolog Vial Sliding Scale - SQ 2 units ACHS CASPER Administration Protocol Nicotine 14 mg 12/09/16 10:00 12/11/16 10:11 Nicoderm Patch - TD 14 mg DAILY CASPER Administration Nystatin 1 applic 12/09/16 13:30 12/11/16 13:12 Mycostatin Ointment - TP 1 applic BID CASPER Administration Ondansetron HCl 4 mg 12/08/16 15:42 Zofran Injection IVPUSH Q6H PRN NAUSEA ASSESSMENT/PLAN: 65 yo with h/o HTN, CAD, HL, COPD, CVA, and recently diagnosed breast cancer who is day 1 s/p t Farmer procedure sigmoid colon resection with colostomy and ,colon washout 2/2 perforated Sigmoid colon with fecal peritonitis. Neurology: - H/o CVA and TIA - Absent Residual deficits - Holding Warfarin - INR 6.10-->1.53 - A&O x 3 - Absent focal neurologic deficits Cardiology: HTN: - BP Stable - Hold Carvedilol - D/c Propofol Pulmonary: COPD: - No acute exacerbation - Cont duonebs PRN - Spirometry - Extubate patient (12/11) - CXR Gastroenterology: Perforated Sigmoid Colon: 2/2 colonic dilitation of unclear etiology - POD1 s/p sigmoid resection with colostomy for perforated sigmoid colon - Patient with evidence of third spacing. Edema, oliguria, and dark brown urine. - INR 6.10-->1.53 - Cont Flagyl, Zosyn - IVF resuccitation NS 125 cc/hour - Cont to monitor colostomy and VALE drainage. - C.diff pending - Frequent wound checks - NPO, NGT Endocrinology: DMII: Stable BS Insulin Aspart SS Heme/Onc: Left Breast Cancer: Estrogen Receptor Positive Currently does not follow with oncologist FEN: IVF, Lytes PRN, NPO PPx: Hold Heparin d/t subtherapeutic INR Dispo: ICU Admission Visit type - Emergency Visit Emergency Visit: Yes ED Registration Date: 12/08/16 Care time: The patient presented to the Emergency Department on the above date and was hospitalized for further evaluation of their emergent condition. - New Patient This patient is new to me today: Yes Date on this admission: 12/11/16 - Critical Care Critical Care patient: Yes Total Critical Care Time (in minutes): 35 Critical Care Statement: The care of this patient involved high complexity decision making to prevent further life threatening deterioration of the patient 's condition and/or to evaluate & treat vital organ system(s) failure or risk of failure.
[2016-12-11] MEDS ORDERED: ACETAMINOPHEN 1000 MG/100 ML VIAL (NON FORMULARY) IVPB PRN (17:15)
[2016-12-11] MEDS: morphine CARPU-JECT 4 MG/1 ML DISP.SYRIN IVPUSH PRN ×2 (17:30→20:37)
[2016-12-11] MEDS: PIPERACILLIN/TAZOB 4.5 GM 100 ML IVPB SCH (17:31)
[2016-12-11] MEDS ORDERED: ACETAMINOPHEN 325 MG TABLET (FP) ONE (20:26)
--- NOTE | 2016-12-11 21:47 | PN ---
Progress Note, Physician History of Present Illness: (Pt's care was transferred to my service today. Pt's chart was reviewed.) Pt w/o F, C, cough, SOB, CP. palp. Pt with abd pain, controlled by medication. Pt was seen and examined in ICU. - Current Medication List Current Medications: Active Medications Acetaminophen (Ofirmev Injection -) 1,000 mg IVPB Q6H PRN PRN Reason: FEVER OR PAIN Stop: 12/12/16 11:16 Albuterol Sulfate (Ventolin Hfa Inhaler -) 2 puff IH Q4H PRN PRN Reason: SHORT OF BREATH/WHEEZING Albuterol/Ipratropium (Duoneb -) 1 amp NEB Q6H PRN PRN Reason: SHORTNESS OF BREATH Heparin Sodium (Porcine) (Heparin -) 5,000 unit SQ TID CASPER Last Admin: 12/11/16 21:11 Dose: 5,000 unit Hydromorphone HCl (Dilaudid Injection -) 0.5 mg IVPUSH [id number] PRN PRN Reason: PAIN Stop: 12/13/16 22:04 Metronidazole (Flagyl 500mg Premixed Ivpb -) 100 mls @ 100 mls/hr IVPB Q6H-IV CASPER Last Admin: 12/11/16 20:37 Dose: 100 mls/hr Famotidine/Sodium Chloride (Pepcid 20 Mg Premixed Ivpb -) 50 mls @ 100 mls/hr IVPB BID CASPER Last Admin: 12/11/16 21:11 Dose: 100 mls/hr Piperacillin Sod/Tazobactam Sod (Zosyn 4.5gm Ivpb (Pre-Docked)) 100 mls @ 200 mls/hr IVPB Q8H-IV CASPER PRN Reason: Protocol Last Admin: 12/11/16 17:31 Dose: 200 mls/hr Sodium Chloride (Normal Saline -) 1,000 mls @ 125 mls/hr IV ASDIR CASPER Last Admin: 12/11/16 14:24 Dose: 125 mls/hr Insulin Aspart (Novolog Vial Sliding Scale -) 1 vial SQ ACHS CASPER PRN Reason: Protocol Last Admin: 12/11/16 17:57 Dose: 2 units Morphine Sulfate (Morphine Injection -) 4 mg IVPUSH Q3H PRN PRN Reason: PAIN LEVEL 6-10 Last Admin: 12/11/16 20:37 Dose: 4 mg Nicotine (Nicoderm Patch -) 14 mg TD DAILY [facility] Last Admin: 12/11/16 10:11 Dose: 14 mg Nystatin (Mycostatin Ointment -) 1 applic TP BID [facility] Last Admin: 12/11/16 21:10 Dose: 1 applic Ondansetron HCl (Zofran Injection) 4 mg IVPUSH Q6H PRN PRN Reason: NAUSEA Last Admin: 12/11/16 20:38 Dose: 4 mg - Objective Vital Signs: Vital Signs Temperature 98.6 F 12/11/16 14:00 Pulse Rate 97 H 12/11/16 18:02 Respiratory Rate 28 H 12/11/16 18:02 Blood Pressure 145/66 12/11/16 18:02 O2 Sat by Pulse Oximetry (%) 97 12/11/16 15:21 Constitutional: Yes: No Distress, Calm Eyes: Yes: Conjunctiva Clear, EOM Intact Neck: Yes: Supple, Trachea Midline Cardiovascular: Yes: Regular Rate and Rhythm, S1, S2 Respiratory: Yes: Regular, CTA Bilaterally, Diminished Gastrointestinal: Yes: Soft, Tenderness (with palpation), Other (minimal BS. + colostomy, minimal brown liquid material in the bag.) Edema: No Neurological: Yes: Alert, Oriented Labs: CBC, BMP 12/11/16 05:00 12/11/16 09:15 INR, PTT INR 1.53 (0.82-1.09) H 12/11/16 05:00 Problem List - Problems (1) Perforated sigmoid colon Code(s): K63.1 - PERFORATION OF INTESTINE (NONTRAUMATIC) (2) Colostomy in place Code(s): Z93.3 - COLOSTOMY STATUS (3) Dilatation of colon Code(s): K59.39 - OTHER MEGACOLON (4) LLQ pain Code(s): R10.32 - LEFT LOWER QUADRANT PAIN (5) Cancer of left breast Code(s): C50.912 - MALIGNANT NEOPLASM OF UNSPECIFIED SITE OF LEFT FEMALE BREAST Qualifiers: Breast location: upper outer quadrant of breast Estrogen receptor status: positive Patient sex: female Qualified Code(s): C50.412 - Malignant neoplasm of upper-outer quadrant of left female breast; C50.412 - Malignant neoplasm of upper-outer quadrant of left female breast; C50.412 - Malignant neoplasm of upper-outer quadrant of left female breast; C50.412 - Malignant neoplasm of upper-outer quadrant of left female breast; Z17.0 - Estrogen receptor positive status [ER+]; Z17.0 - Estrogen receptor positive status [ER+] (6) Diabetes mellitus type 2, noninsulin dependent Code(s): E11.9 - TYPE 2 DIABETES MELLITUS WITHOUT COMPLICATIONS (7) H/O: CVA (cerebrovascular accident) Assessment/Plan: off AC for now. TO f/u with Sx. Code(s): Z86.73 - PRSNL HX OF TIA (TIA), AND CEREB INFRC W/O RESID DEFICITS (8) Supratherapeutic INR Assessment/Plan: resolved. of coumadin for now. Code(s): R79.1 - ABNORMAL COAGULATION PROFILE (9) Hypertension Code(s): I10 - ESSENTIAL (PRIMARY) HYPERTENSION Qualifiers: Hypertension type: essential hypertension Qualified Code(s): I10 - Essential (primary) hypertension; I10 - Essential (primary) hypertension; I10 - Essential (primary) hypertension (10) COPD (chronic obstructive pulmonary disease) Code(s): J44.9 - CHRONIC OBSTRUCTIVE PULMONARY DISEASE, UNSPECIFIED (11) Hypomagnesemia Code(s): E83.42 - HYPOMAGNESEMIA (12) Hypophosphatemia Code(s): E83.39 - OTHER DISORDERS OF PHOSPHORUS METABOLISM Assessment/Plan Pt is post op day #1. Pt is currently in ICU, was extubated successfully in AM, now on NC O2 supplementation. Pt is on IVF, currently aggressively hydrated by surgical team. Strictly I/O. NPO, NGT. BGM with coverage for now. Pt is on IV abtx( Flagyl, Zosyn). Monitor and replete electrolytes; corrected Ca++ to albumin 9.5 mg/dl To f/u with Sx when can restart AC. AM labs. Time spent for manging pt's care: over 50 minutes
[2016-12-12] MEDS: morphine CARPU-JECT 4 MG/1 ML DISP.SYRIN IVPUSH PRN ×5 (00:39→21:07)
[2016-12-12] MEDS: INSULIN SLIDING SCALE (NOVOLOG) 1 VIAL SQ SCH ×6 (03:48→23:42)
[2016-12-12] MEDS: METRONIDAZOLE 500 MG PREMIXED 100 ML IVPB SCH ×4 (03:48→21:06)
[2016-12-12] MEDS: PIPERACILLIN/TAZOB 4.5 GM 100 ML IVPB SCH ×3 (03:49→17:17)
[2016-12-12 06:10] LABS: BASOPHIL 0.1 % (0-2.0); EOSINOPHIL 0.7 % (0-4.5); MCH 31.2 pg (25.7-33.7); MCHC 33.7 g/dl (32.0-36.0); MEAN CELL VOLUME 92.5 fl (80-96); MEAN PLT VOLUME 8.2 fl (7.5-11.1); NEUTROPHILS 89.4 % (42.8-82.8); PLATELET COUNT 252 K/MM3 (134-434); RDW 14.6 % (11.6-15.6); WHITE BLOOD COUNT 11.5 K/mm3 (4.0-10.0)
[2016-12-12 06:33] LABS: ALBUMIN 1.4 g/dl (3.4-5.0); ANION GAP 5 (8-16); BILIRUBIN,TOTAL 0.3 mg/dL (0.2-1.0); CO2 27 mmol/L (21-32); CREATININE 0.3 mg/dL (0.55-1.02); GLUCOSE,RANDOM 97 mg/dL (74-106); PHOSPHOROUS 1.6 mg/dL (2.5-4.9); SGOT/AST 20 U/L (15-37); SGPT/ALT 11 U/L (12-78); TOT PROT 3.7 g/dl (6.4-8.2)
[2016-12-12 06:34] LABS: ALK PHOS 57 U/L (45-117)
[2016-12-12 06:49] LABS: CALCIUM 6.9 mg/dL (8.5-10.1)
[2016-12-12] MEDS: HEPARIN NA (PORCINE) 5,000 UNITS/ML 1ML VIAL SQ SCH ×4 (07:06→23:42)
--- NOTE | 2016-12-12 08:28 | PN ---
Progress Note, Physician Chief Complaint: ID Alert extubated since yesterday NAD Conversive Offers no complaints PIp Tazo and Metrondiazole Day 2 post op perf colon - Current Medication List Current Medications: Active Medications Acetaminophen (Ofirmev Injection -) 1,000 mg IVPB Q6H PRN PRN Reason: FEVER OR PAIN Stop: 12/12/16 11:16 Albuterol Sulfate (Ventolin Hfa Inhaler -) 2 puff IH Q4H PRN PRN Reason: SHORT OF BREATH/WHEEZING Albuterol/Ipratropium (Duoneb -) 1 amp NEB Q6H PRN PRN Reason: SHORTNESS OF BREATH Heparin Sodium (Porcine) (Heparin -) 5,000 unit SQ TID [facility] Last Admin: 12/12/16 07:06 Dose: 5,000 unit Hydromorphone HCl (Dilaudid Injection -) 0.5 mg IVPUSH [id number] PRN PRN Reason: PAIN Stop: 12/13/16 22:04 Metronidazole (Flagyl 500mg Premixed Ivpb -) 100 mls @ 100 mls/hr IVPB Q6H-IV [facility] Last Admin: 12/12/16 03:48 Dose: 100 mls/hr Famotidine/Sodium Chloride (Pepcid 20 Mg Premixed Ivpb -) 50 mls @ 100 mls/hr IVPB BID [facility] Last Admin: 12/11/16 21:11 Dose: 100 mls/hr Piperacillin Sod/Tazobactam Sod (Zosyn 4.5gm Ivpb (Pre-Docked)) 100 mls @ 200 mls/hr IVPB Q8H-IV [facility] PRN Reason: Protocol Last Admin: 12/12/16 03:49 Dose: 200 mls/hr Sodium Chloride (Normal Saline -) 1,000 mls @ 125 mls/hr IV ASDIR [facility] Last Admin: 12/11/16 14:24 Dose: 125 mls/hr Insulin Aspart (Novolog Vial Sliding Scale -) 1 vial SQ ACHS [facility] PRN Reason: Protocol Last Admin: 12/12/16 07:06 Dose: Not Given Morphine Sulfate (Morphine Injection -) 4 mg IVPUSH Q3H PRN PRN Reason: PAIN LEVEL 6-10 Last Admin: 12/12/16 03:49 Dose: 4 mg Nicotine (Nicoderm Patch -) 14 mg TD DAILY [facility] Last Admin: 12/11/16 10:11 Dose: 14 mg Nystatin (Mycostatin Ointment -) 1 applic TP BID [facility] Last Admin: 12/11/16 21:10 Dose: 1 applic Ondansetron HCl (Zofran Injection) 4 mg IVPUSH Q6H PRN PRN Reason: NAUSEA Last Admin: 12/11/16 20:38 Dose: 4 mg - Objective Vital Signs: Vital Signs Temperature 98.2 F 12/12/16 07:00 Pulse Rate 102 H 12/12/16 07:00 Respiratory Rate 26 H 12/12/16 07:00 Blood Pressure 146/68 12/12/16 07:00 O2 Sat by Pulse Oximetry (%) 99 12/11/16 21:00 Constitutional: Yes: Well Nourished, No Distress HENT: Yes: WNL, Atraumatic Neck: Yes: WNL, Supple Cardiovascular: Yes: Regular Rate and Rhythm, S1, S2. No: Murmur Respiratory: Yes: WNL, Regular, CTA Bilaterally Gastrointestinal: Yes: Soft, Other (colostomy drain VALE) Labs: CBC, BMP 12/12/16 05:55 12/12/16 05:55 INR, PTT INR 1.53 (0.82-1.09) H 12/11/16 05:00 Problem List - Problems (1) Diabetes mellitus type 2, noninsulin dependent Code(s): E11.9 - TYPE 2 DIABETES MELLITUS WITHOUT COMPLICATIONS (2) Perforated sigmoid colon Code(s): K63.1 - PERFORATION OF INTESTINE (NONTRAUMATIC) (3) Cancer of left breast Code(s): C50.912 - MALIGNANT NEOPLASM OF UNSPECIFIED SITE OF LEFT FEMALE BREAST Qualifiers: Breast location: upper outer quadrant of breast Estrogen receptor status: positive Patient sex: female Qualified Code(s): C50.412 - Malignant neoplasm of upper-outer quadrant of left female breast; C50.412 - Malignant neoplasm of upper-outer quadrant of left female breast; C50.412 - Malignant neoplasm of upper-outer quadrant of left female breast; C50.412 - Malignant neoplasm of upper-outer quadrant of left female breast; Z17.0 - Estrogen receptor positive status [ER+]; Z17.0 - Estrogen receptor positive status [ER+] (4) Peritonitis Code(s): K65.9 - PERITONITIS, UNSPECIFIED
[2016-12-12] MEDS ORDERED: morphine CARPU-JECT 4 MG/1 ML DISP.SYRIN ONE (09:03)
[2016-12-12] MEDS ORDERED: PT OWN MED DRAWER 7, Y5N ONE (09:03)
[2016-12-12] MEDS: NICOTINE 14 MG/24 HOURS TOPICAL PATCH TD SCH (09:12)
[2016-12-12] MEDS ORDERED: NAPH,MB-DB/K PH,MBDB POWDER PACKET PO ONE ×2 (09:15→14:45)
[2016-12-12] MEDS: FAMOTIDINE 20 MG/50 ML IVPB 50 ML IVPB SCH ×3 (09:17→23:44)
[2016-12-12] MEDS ORDERED: POTASSIUM PHOSPHATE 15 MM in DEXTROSE 5%-WATER - 250 ML IVPB ONE ×2 (10:16→15:30)
--- NOTE | 2016-12-12 10:36 | PN ---
Progress Note, Physician History of Present Illness: Pt w/o F, C, cough, SOB, CP. palp. Pt with abd pain, controlled by medication. Pt was seen and examined in ICU. - Current Medication List Current Medications: Active Medications Acetaminophen (Ofirmev Injection -) 1,000 mg IVPB Q6H PRN PRN Reason: FEVER OR PAIN Stop: 12/12/16 11:16 Albuterol Sulfate (Ventolin Hfa Inhaler -) 2 puff IH Q4H PRN PRN Reason: SHORT OF BREATH/WHEEZING Albuterol/Ipratropium (Duoneb -) 1 amp NEB Q6H PRN PRN Reason: SHORTNESS OF BREATH Heparin Sodium (Porcine) (Heparin -) 5,000 unit SQ TID [facility] Last Admin: 12/12/16 07:06 Dose: 5,000 unit Hydromorphone HCl (Dilaudid Injection -) 0.5 mg IVPUSH [id number] PRN PRN Reason: PAIN Stop: 12/13/16 22:04 Metronidazole (Flagyl 500mg Premixed Ivpb -) 100 mls @ 100 mls/hr IVPB Q6H-IV [facility] Last Admin: 12/12/16 09:11 Dose: 100 mls/hr Famotidine/Sodium Chloride (Pepcid 20 Mg Premixed Ivpb -) 50 mls @ 100 mls/hr IVPB BID [facility] Last Admin: 12/12/16 09:17 Dose: 100 mls/hr Piperacillin Sod/Tazobactam Sod (Zosyn 4.5gm Ivpb (Pre-Docked)) 100 mls @ 200 mls/hr IVPB Q8H-IV [facility] PRN Reason: Protocol Last Admin: 12/12/16 09:11 Dose: 200 mls/hr Sodium Chloride (Normal Saline -) 1,000 mls @ 125 mls/hr IV ASDIR [facility] Last Admin: 12/11/16 14:24 Dose: 125 mls/hr Potassium Phosphate 15 mm/ (Dextrose) 255 mls @ 62.5 mls/hr IVPB ONCE ONE Stop: 12/12/16 14:20 Insulin Aspart (Novolog Vial Sliding Scale -) 1 vial SQ ACHS [facility] PRN Reason: Protocol Last Admin: 12/12/16 07:06 Dose: Not Given Morphine Sulfate (Morphine Injection -) 4 mg IVPUSH Q3H PRN PRN Reason: PAIN LEVEL 6-10 Last Admin: 12/12/16 09:11 Dose: 4 mg Nicotine (Nicoderm Patch -) 14 mg TD DAILY [facility] Last Admin: 12/12/16 09:12 Dose: 14 mg Nystatin (Mycostatin Ointment -) 1 applic TP BID [facility] Last Admin: 12/11/16 21:10 Dose: 1 applic Ondansetron HCl (Zofran Injection) 4 mg IVPUSH Q6H PRN PRN Reason: NAUSEA Last Admin: 12/11/16 20:38 Dose: 4 mg - Objective Vital Signs: Vital Signs Temperature 98.2 F 12/12/16 07:00 Pulse Rate 102 H 12/12/16 07:00 Respiratory Rate 26 H 12/12/16 07:00 Blood Pressure 146/68 12/12/16 07:00 O2 Sat by Pulse Oximetry (%) 99 12/11/16 21:00 Constitutional: Yes: No Distress, Calm Cardiovascular: Yes: Regular Rate and Rhythm, S1, S2 Respiratory: Yes: Regular, CTA Bilaterally. No: Rales Gastrointestinal: Yes: Normal Bowel Sounds, Soft, Abdomen, Obese, Other (+ colostomy. + drainage tube.) Edema: No Neurological: Yes: Alert, Oriented Labs: CBC, BMP 12/12/16 05:55 12/12/16 05:55 INR, PTT INR 1.53 (0.82-1.09) H 12/11/16 05:00 - ....Imaging Chest X-ray: Report Reviewed Problem List - Problems (1) Perforated sigmoid colon Code(s): K63.1 - PERFORATION OF INTESTINE (NONTRAUMATIC) (2) Colostomy in place Code(s): Z93.3 - COLOSTOMY STATUS (3) Dilatation of colon Code(s): K59.39 - OTHER MEGACOLON (4) LLQ pain Code(s): R10.32 - LEFT LOWER QUADRANT PAIN (5) Cancer of left breast Code(s): C50.912 - MALIGNANT NEOPLASM OF UNSPECIFIED SITE OF LEFT FEMALE BREAST Qualifiers: Breast location: upper outer quadrant of breast Estrogen receptor status: positive Patient sex: female Qualified Code(s): C50.412 - Malignant neoplasm of upper-outer quadrant of left female breast; C50.412 - Malignant neoplasm of upper-outer quadrant of left female breast; C50.412 - Malignant neoplasm of upper-outer quadrant of left female breast; C50.412 - Malignant neoplasm of upper-outer quadrant of left female breast; Z17.0 - Estrogen receptor positive status [ER+]; Z17.0 - Estrogen receptor positive status [ER+] (6) Diabetes mellitus type 2, noninsulin dependent Code(s): E11.9 - TYPE 2 DIABETES MELLITUS WITHOUT COMPLICATIONS (7) H/O: CVA (cerebrovascular accident) Code(s): Z86.73 - PRSNL HX OF TIA (TIA), AND CEREB INFRC W/O RESID DEFICITS (8) Supratherapeutic INR Code(s): R79.1 - ABNORMAL COAGULATION PROFILE (9) Hypertension Code(s): I10 - ESSENTIAL (PRIMARY) HYPERTENSION Qualifiers: Hypertension type: essential hypertension Qualified Code(s): I10 - Essential (primary) hypertension; I10 - Essential (primary) hypertension; I10 - Essential (primary) hypertension (10) COPD (chronic obstructive pulmonary disease) Code(s): J44.9 - CHRONIC OBSTRUCTIVE PULMONARY DISEASE, UNSPECIFIED (11) Hypomagnesemia Code(s): E83.42 - HYPOMAGNESEMIA (12) Hypophosphatemia Code(s): E83.39 - OTHER DISORDERS OF PHOSPHORUS METABOLISM (13) Hypoalbuminemia Code(s): E88.09 - OTH DISORDERS OF PLASMA-PROTEIN METABOLISM, NEC Assessment/Plan Pt is post op day #2. Pt is currently in ICU, was extubated successfully yesterday in AM, now on NC O2 supplementation. Pt is on IVF, currently aggressively hydrated by surgical team. Strictly I/O. NPO, NGT. BGM with coverage for now. Pt is on IV abtx( Flagyl, Zosyn). Monitor and replete electrolytes To f/u with Sx when can restart AC. AM labs. Case was d/w pt's nurse. Time spent for managing patient care: 40 minutes
--- NOTE | 2016-12-12 10:54 | PN ---
Teaching Attending Note Name of Resident: Daniel Hanna ATTENDING PHYSICIAN STATEMENT I saw and evaluated the patient. I reviewed the resident's note and discussed the case with the resident. I agree with the resident's findings and plan as documented. SUBJECTIVE: Patient seen and examined in the ICU. Remains extubated. Awake and alert. Just received pain meds, so pain seems appropriately managed. Denies SOB or CP. CXR : increased vascular markings small effusions Intake & Output 12/09/16 12/10/16 12/11/16 12/12/16 23:59 23:59 23:59 23:59 Intake Total 1600 15232 5489 1075 Output Total 550 4500 1825 825 Balance 1050 8573 3664 250 Weight 177 lb 0.012 oz 210 lb 5.136 oz 216 lb 0.848 oz Last Vital Signs Temp Pulse Resp BP Pulse Ox 98.2 F 102 H 26 H 146/68 99 12/12/16 07:00 12/12/16 07:00 12/12/16 07:00 12/12/16 07:00 12/11/16 21:00 Active Medications Acetaminophen (Ofirmev Injection -) 1,000 mg IVPB Q6H PRN PRN Reason: FEVER OR PAIN Stop: 12/12/16 11:16 Albuterol Sulfate (Ventolin Hfa Inhaler -) 2 puff IH Q4H PRN PRN Reason: SHORT OF BREATH/WHEEZING Albuterol/Ipratropium (Duoneb -) 1 amp NEB Q6H PRN PRN Reason: SHORTNESS OF BREATH Heparin Sodium (Porcine) (Heparin -) 5,000 unit SQ TID [facility] Last Admin: 12/12/16 07:06 Dose: 5,000 unit Hydromorphone HCl (Dilaudid Injection -) 0.5 mg IVPUSH [id number] PRN PRN Reason: PAIN Stop: 12/13/16 22:04 Metronidazole (Flagyl 500mg Premixed Ivpb -) 100 mls @ 100 mls/hr IVPB Q6H-IV [facility] Last Admin: 12/12/16 09:11 Dose: 100 mls/hr Famotidine/Sodium Chloride (Pepcid 20 Mg Premixed Ivpb -) 50 mls @ 100 mls/hr IVPB BID [facility] Last Admin: 12/12/16 09:17 Dose: 100 mls/hr Piperacillin Sod/Tazobactam Sod (Zosyn 4.5gm Ivpb (Pre-Docked)) 100 mls @ 200 mls/hr IVPB Q8H-IV [facility] PRN Reason: Protocol Last Admin: 12/12/16 09:11 Dose: 200 mls/hr Sodium Chloride (Normal Saline -) 1,000 mls @ 125 mls/hr IV ASDIR [facility] Last Admin: 12/11/16 14:24 Dose: 125 mls/hr Potassium Phosphate 15 mm/ (Dextrose) 255 mls @ 62.5 mls/hr IVPB ONCE ONE Stop: 12/12/16 14:20 Insulin Aspart (Novolog Vial Sliding Scale -) 1 vial SQ ACHS [facility] PRN Reason: Protocol Last Admin: 12/12/16 07:06 Dose: Not Given Morphine Sulfate (Morphine Injection -) 4 mg IVPUSH Q3H PRN PRN Reason: PAIN LEVEL 6-10 Last Admin: 12/12/16 09:11 Dose: 4 mg Nicotine (Nicoderm Patch -) 14 mg TD DAILY [facility] Last Admin: 12/12/16 09:12 Dose: 14 mg Nystatin (Mycostatin Ointment -) 1 applic TP BID [facility] Last Admin: 12/11/16 21:10 Dose: 1 applic Ondansetron HCl (Zofran Injection) 4 mg IVPUSH Q6H PRN PRN Reason: NAUSEA Last Admin: 12/11/16 20:38 Dose: 4 mg Gen: extubated, mildly tachypneic Heart: tachycardic, regular Lung: decreased breath sounds at the bases Abd: soft, +ostomy pink, +serosanguinous drainage Ext: + edema Laboratory Results - last 24 hr 12/12/16 12/12/16 05:55 05:55 WBC 11.5 H RBC 3.35 L Hgb 10.5 L D Hct 31.0 L MCV 92.5 MCH 31.2 MCHC 33.7 RDW 14.6 Plt Count 252 MPV 8.2 Neutrophils % 89.4 H Lymphocytes % 5.4 L Monocytes % 4.4 Eosinophils % 0.7 Basophils % 0.1 Sodium 141 Potassium 3.7 Chloride 109 H Carbon Dioxide 27 D Anion Gap 5 L BUN 12 Creatinine 0.3 L D Creat Clearance w eGFR > 60 Random Glucose 97 D Calcium 6.9 L* Phosphorus 1.6 L Magnesium 2.0 D Total Bilirubin 0.3 D AST 20 ALT 11 L Alkaline Phosphatase 57 Total Protein 3.7 L Albumin 1.4 L ASSESSMENT AND PLAN: Perforated Sigmoid Colon Peritonitis s/p ex-lap/sigmoid resection/colostomy Sepsis COPD HTN Hyperlipidemia DM Smoker h/o CVA - IV antibiotics per ID - f/u final cultures - O2 to maintain saturation - incentive spirometry - inhaled bronchodilators - monitor urine output, creatinine - IVF to maintain 0.5cc/kg/hr urine - Pain control - DVT prophylaxis - Incentive Spirometry Dr Cormier Critical care time spent in reviewing chart, evaluating patient and formulating plan 40 min
--- NOTE | 2016-12-12 11:39 | PN ---
Physical Exam: SUBJECTIVE: 65 yo with h/o HTN, CAD, HL, COPD, CVA, and recently diagnosed breast cancer who is day 2 s/p t [facility] procedure sigmoid colon resection with colostomy and ,colon washout 2/2 perforated Sigmoid colon with fecal peritonitis. No overnight events. She was extubated yesterday morning and has remained hemodynamically stable on 2 L NC. She has had resolution of dark urinary output , and is greater than 50 cc/kg/hr. NGT tube and colostomy with adequate drainage. Patient currently has no complaints at bedside. She denies CLARK, N/V, fevers/chills, SOB, chest pain, cough. Abdominal pain is well controlled with Morphine and Tylenol. OBJECTIVE: Vital Signs Period Temp Pulse Resp BP Sys/Holt Pulse Ox Last 24 Hr 98 F-98.6 F 86-102 18-28 136-152/58-70 95-99 GENERAL: The patient is A&O x3, NAD. HEAD: Normal with no signs of trauma. EYES: + Right eye cataract. PERRL, extraocular movements intact, sclera anicteric, conjunctiva clear. No ptosis. ENT: Ears normal, nares patent, oropharynx clear without exudates, moist mucous membranes. NECK: Trachea midline, full range of motion, supple. LUNGS: Breath sounds equal, clear to auscultation bilaterally, no wheezes, no crackles, no accessory muscle use. HEART: Regular rate and rhythm, S1, S2 without murmur, rub or gallop. ABDOMEN: Soft, nontender, nondistended, normoactive bowel sounds, no guarding, no rebound, no hepatosplenomegaly, no masses. Colostomy intact LLQ. Midline dressing in place. VALE drain with serosanguinoeus drainage. EXTREMITIES: 2+ pulses, warm, well-perfused, no edema. NEUROLOGICAL: Cranial nerves II through XII grossly intact. gait not observed. SKIN: Warm, dry, normal turgor, no rashes or lesions noted Laboratory Results - last 24 hr 12/12/16 12/12/16 05:55 05:55 WBC 11.5 H RBC 3.35 L Hgb 10.5 L D Hct 31.0 L MCV 92.5 MCH 31.2 MCHC 33.7 RDW 14.6 Plt Count 252 MPV 8.2 Neutrophils % 89.4 H Lymphocytes % 5.4 L Monocytes % 4.4 Eosinophils % 0.7 Basophils % 0.1 Sodium 141 Potassium 3.7 Chloride 109 H Carbon Dioxide 27 D Anion Gap 5 L BUN 12 Creatinine 0.3 L D Creat Clearance w eGFR > 60 Random Glucose 97 D Calcium 6.9 L* Phosphorus 1.6 L Magnesium 2.0 D Total Bilirubin 0.3 D AST 20 ALT 11 L Alkaline Phosphatase 57 Total Protein 3.7 L Albumin 1.4 L Active Medications Generic Name Dose Route Start Last Admin Trade Name Freq PRN Reason Stop Dose Admin Albuterol Sulfate 2 puff 12/08/16 16:20 Ventolin Hfa Inhaler - IH Q4H PRN SHORT OF BREATH/WHEEZING Albuterol/Ipratropium 1 amp 12/09/16 09:38 Duoneb - NEB Q6H PRN SHORTNESS OF BREATH Heparin Sodium (Porcine) 5,000 unit 12/12/16 14:00 Heparin - SQ TID [facility] Hydromorphone HCl 0.5 mg 12/10/16 22:03 Dilaudid Injection - IVPUSH 12/13/16 22:04 [id number] PRN PAIN Metronidazole 100 mls @ 100 mls/hr 12/08/16 18:30 12/12/16 09:11 Flagyl 500mg Premixed Ivpb - IVPB 100 mls/hr Q6H-IV [facility] Administration Famotidine/Sodium Chloride 50 mls @ 100 mls/hr 12/09/16 10:00 12/12/16 09:17 Pepcid 20 Mg Premixed Ivpb - IVPB 100 mls/hr BID [facility] Administration Piperacillin Sod/Tazobactam Sod 100 mls @ 200 mls/hr 12/11/16 18:00 12/12/16 09 :11 Zosyn 4.5gm Ivpb (Pre-Docked) IVPB 200 mls/hr Q8H-IV [facility] Administration Protocol Sodium Chloride 1,000 mls @ 125 mls/hr 12/11/16 13:45 12/11/16 14:24 Normal Saline - IV 125 mls/hr ASDIR [facility] Administration Potassium Phosphate 15 mm/ 255 mls @ 62.5 mls/hr 12/12/16 10:16 Dextrose IVPB 12/12/16 14:20 ONCE ONE Insulin Aspart 1 vial 12/08/16 16:30 12/12/16 07:06 Novolog Vial Sliding Scale - SQ Not Given ACHS [facility] Protocol Morphine Sulfate 4 mg 12/11/16 17:16 12/12/16 09:11 Morphine Injection - IVPUSH 4 mg Q3H PRN Administration PAIN LEVEL 6-10 Nicotine 14 mg 12/09/16 10:00 12/12/16 09:12 Nicoderm Patch - TD 14 mg DAILY [facility] Administration Nystatin 1 applic 12/09/16 13:30 12/11/16 21:10 Mycostatin Ointment - TP 1 applic BID [facility] Administration Ondansetron HCl 4 mg 12/08/16 15:42 12/11/16 20:38 Zofran Injection IVPUSH 4 mg Q6H PRN Administration NAUSEA ASSESSMENT/PLAN: 65 yo with h/o HTN, CAD, HL, COPD, CVA, and recently diagnosed breast cancer who is day 2 s/p t [facility] procedure sigmoid colon resection with colostomy and ,colon washout 2/2 perforated Sigmoid colon with fecal peritonitis. Neurology: - H/o CVA and TIA - Absent Residual deficits - Holding Warfarin - INR 6.10-->1.53 - A&O x 3 - Absent focal neurologic deficits Cardiology: HTN: - BP Stable - Hold Carvedilol Pulmonary: COPD: - No acute exacerbation - Cont duonebs PRN - Spirometry - Patient extubated (12/11) - CXR Gastroenterology: Perforated Sigmoid Colon: 2/2 colonic dilitation of unclear etiology - POD1 s/p sigmoid resection with colostomy for perforated sigmoid colon - Patient with evidence of third spacing. Edema, oliguria, and dark brown urine. - INR 6.10-->1.53 - Cont Flagyl, Zosyn - Cont to monitor colostomy and VALE drainage. - C.diff pending - Frequent wound checks - NPO, NGT - Pain control Morphine - Aggressive IF resscucitation if oliguric ( < 0.5 cc/kg/hr ) - Strict I/O - Bowel Cx. Pending Endocrinology: DMII: Stable BS Insulin Aspart SS Heme/Onc: Left Breast Cancer: Estrogen Receptor Positive Currently does not follow with oncologist FEN: IVF, Lytes PRN, NPO PPx: Hold Heparin d/t subtherapeutic INR Dispo: Transfer to Med/Surg Pt is post op day #2. Visit type - Emergency Visit Emergency Visit: Yes ED Registration Date: 12/08/16 Care time: The patient presented to the Emergency Department on the above date and was hospitalized for further evaluation of their emergent condition. - New Patient This patient is new to me today: No - Critical Care Critical Care patient: Yes Total Critical Care Time (in minutes): 35 Critical Care Statement: The care of this patient involved high complexity decision making to prevent further life threatening deterioration of the patient 's condition and/or to evaluate & treat vital organ system(s) failure or risk of failure.
--- NOTE | 2016-12-12 13:25 | PN ---
Progress Note, Physician Chief Complaint: abdominal distention, LLQ pain History of Present Illness: POD2 s/p sigmoid resection with colostomy (Dwaine's procedure) for perforation of sigmoid extubated yesterday UOP 1400ml yesterday, 350ml overnight, now yellow in Escobar, ~300 in bag NGT with ~300 clear/brown output VALE drain with 425 yesterday, 225 so far today, serous in bulb colostomy with liquid brown stool in bag Pt with minimal pain, controlled with meds. No nausea. Awake, alert, in good spirits. - Current Medication List Current Medications: Active Medications Albuterol Sulfate (Ventolin Hfa Inhaler -) 2 puff IH Q4H PRN PRN Reason: SHORT OF BREATH/WHEEZING Albuterol/Ipratropium (Duoneb -) 1 amp NEB Q6H PRN PRN Reason: SHORTNESS OF BREATH Heparin Sodium (Porcine) (Heparin -) 5,000 unit SQ TID [facility] Metronidazole (Flagyl 500mg Premixed Ivpb -) 100 mls @ 100 mls/hr IVPB Q6H-IV [facility] Last Admin: 12/12/16 09:11 Dose: 100 mls/hr Famotidine/Sodium Chloride (Pepcid 20 Mg Premixed Ivpb -) 50 mls @ 100 mls/hr IVPB BID [facility] Last Admin: 12/12/16 09:17 Dose: 100 mls/hr Piperacillin Sod/Tazobactam Sod (Zosyn 4.5gm Ivpb (Pre-Docked)) 100 mls @ 200 mls/hr IVPB Q8H-IV [facility] PRN Reason: Protocol Last Admin: 12/12/16 09:11 Dose: 200 mls/hr Sodium Chloride (Normal Saline -) 1,000 mls @ 125 mls/hr IV ASDIR [facility] Last Admin: 12/11/16 14:24 Dose: 125 mls/hr Potassium Phosphate 15 mm/ (Dextrose) 255 mls @ 62.5 mls/hr IVPB ONCE ONE Stop: 12/12/16 14:20 Insulin Aspart (Novolog Vial Sliding Scale -) 1 vial SQ ACHS [facility] PRN Reason: Protocol Last Admin: 12/12/16 07:06 Dose: Not Given Morphine Sulfate (Morphine Injection -) 4 mg IVPUSH Q3H PRN PRN Reason: PAIN LEVEL 6-10 Last Admin: 12/12/16 09:11 Dose: 4 mg Nicotine (Nicoderm Patch -) 14 mg TD DAILY [facility] Last Admin: 12/12/16 09:12 Dose: 14 mg Nystatin (Mycostatin Ointment -) 1 applic TP BID [facility] Last Admin: 12/11/16 21:10 Dose: 1 applic Ondansetron HCl (Zofran Injection) 4 mg IVPUSH Q6H PRN PRN Reason: NAUSEA Last Admin: 12/11/16 20:38 Dose: 4 mg - Objective Vital Signs: Vital Signs Temperature 98.2 F 12/12/16 07:00 Pulse Rate 97 H 12/12/16 11:00 Respiratory Rate 20 12/12/16 11:00 Blood Pressure 138/57 12/12/16 11:00 O2 Sat by Pulse Oximetry (%) 99 12/11/16 21:00 Vital Signs Period Temp Pulse Resp BP Sys/Holt Pulse Ox Last 24 Hr 98 F-98.6 F 86-102 18-28 136-148/57-70 97-99 Intake & Output 12/11/16 12/12/16 12/12/16 23:59 07:59 15:59 Intake Total 3725 1075 Output Total 1000 825 Balance 2725 250 Weight 216 lb 0.848 oz Intake: IV 3125 875 Lactated Ringers Solution 1000 1,000 ml @ 1000 mls/hr IV ONCE STA Rx#: [id number] Normal Saline - 1,000 ml 1000 @ 1000 mls/hr IV ASDIR STA Rx#:[id number] Normal Saline - 1,000 ml 1125 875 @ 125 mls/hr IV ASDIR [facility] Rx#:[id number] IVPB 600 200 Output: Gastric Drainage 250 Drainage 200 225 Abdomen 200 225 Urine 800 350 Escobar 800 350 Other: Voiding Method Indwelling Catheter Indwelling Catheter Bowel Movement Yes: colostomy # Bowel Movements 2 Weight Measurement Method Built in [facility] Constitutional: Yes: No Distress, Calm, Obese Eyes: Yes: Other (R eye cloudy/blind; L eye clear, EOMI) HENT: Yes: Atraumatic, Normocephalic, Other (NGT in place; facial edema decreased) Cardiovascular: Yes: Tachycardia (106), Murmur. No: Pulse Irregular Respiratory: Yes: Regular, CTA Bilaterally, Diminished (at bases), On Nasal O2. No: Rhonchi, Wheezes Gastrointestinal: Yes: Soft, Abdomen, Obese, Distention (mild), Hypoactive Bowel Sounds, Tenderness (lower quadrants, no R/G), Other (colostomy pink, patent, productive of some liquid brown stool, + gas in bag) Genitourinary: Yes: Escobar Present (grant coordinator but still yellow urine). No: Hematuria Extremities: Yes: Cool (feet). No: Cyanosis Edema: Yes (mild generalized) Edema: LUE: 1+, RUE: 1+ Peripheral Pulses WNL: Yes Integumentary: Yes: Incision (midline). No: Rash Wound/Incision: Yes: [place] Intact (at umbilicus), Dressing Removed (and changed - minimal serous drainage on dressing; wound clean - fat not yet granulating), Unapproximated, Other (VALE site dressing changed with minimal yellow staining on dressing) Neurological: Yes: Alert, Oriented Psychiatric: Yes: Alert, Oriented Labs: CBC, BMP 12/12/16 05:55 12/12/16 05:55 INR, PTT INR 1.53 (0.82-1.09) H 12/11/16 05:00 CMP Sodium 141 mmol/L (136-145) 12/12/16 05:55 Potassium 3.7 mmol/L (3.5-5.1) 12/12/16 05:55 Chloride 109 mmol/L (98-107) H 12/12/16 05:55 Carbon Dioxide 27 mmol/L (21-32) D 12/12/16 05:55 Anion Gap 5 (8-16) L 12/12/16 05:55 BUN 12 mg/dL (7-18) 12/12/16 05:55 Creatinine 0.3 mg/dL (0.55-1.02) L D 12/12/16 05:55 Creat Clearance w eGFR > 60 (>60) 12/12/16 05:55 POC Glucometer 100 UNITS (()) 12/10/16 12:26 Random Glucose 97 mg/dL (74-106) D 12/12/16 05:55 Lactic Acid 1.0 mmol/L (0.4-2.0) 12/10/16 22:55 Calcium 6.9 mg/dL (8.5-10.1) L* 12/12/16 05:55 Phosphorus 1.6 mg/dL (2.5-4.9) L 12/12/16 05:55 Magnesium 2.0 mg/dL (1.8-2.4) D 12/12/16 05:55 Total Bilirubin 0.3 mg/dL (0.2-1.0) D 12/12/16 05:55 Direct Bilirubin < 0.1 mg/dL (0.0-0.2) 12/11/16 05:00 AST 20 U/L (15-37) 12/12/16 05:55 ALT 11 U/L (12-78) L 12/12/16 05:55 Alkaline Phosphatase 57 U/L (45-117) 12/12/16 05:55 Total Protein 3.7 g/dl (6.4-8.2) L 12/12/16 05:55 Albumin 1.4 g/dl (3.4-5.0) L 12/12/16 05:55 Lipase 21 U/L (22-51) L 12/08/16 11:50 Microbiology 12/10/16 19:30 Gram Stain - Final Peritoneal Fluid Body Fluid Culture - Preliminary NO AEROBIC GROWTH, 24 HRS 12/08/16 12:00 Blood Culture - Preliminary Blood - Peripheral Venous NO GROWTH OBTAINED AFTER 72 HOURS, INCUBATION TO CONTINUE FOR 2 DAYS. 12/08/16 11:25 Blood Culture - Preliminary Blood - Peripheral Venous NO GROWTH OBTAINED AFTER 72 HOURS, INCUBATION TO CONTINUE FOR 2 DAYS. 12/10/16 11:47 Urine Culture - Final Urine - Urine Clean Catch NO GROWTH OBTAINED - ....Imaging Chest X-ray: Report Reviewed, Image Reviewed Problem List - Problems (1) Perforated sigmoid colon Assessment/Plan: POD2 s/p sigmoid resection with colostomy (Dwaine's procedure) for perforated sigmoid colon extubated, on nasal cannula O2, using incentive spirometer slightly tachy with improving UOP but still a little low and yellow third-spacing, albumin <2 - continue IVF along with medications continue Zosyn, Flagyl - ID on board continue NPO/IVF/NGT replete lytes - may need an additional bag of KPhos keep Escobar for accurate I/O's colostomy with liquid stool output C diff pending, peritoneal fluid with no growth yet drain with serous fluid midline wound dressing changed - open and clean ok for transfer to floor with close monitoring of UOP and strict I/O's await pathology Code(s): K63.1 - PERFORATION OF INTESTINE (NONTRAUMATIC) (2) LLQ pain Code(s): R10.32 - LEFT LOWER QUADRANT PAIN (3) Dilatation of colon Assessment/Plan: etiology still unclear - had inflamed segment of sigmoid with perforation at necrotic patch but no significant mass or any purulence could have been C diff related after Augmentin 2 wks ago, but no longer having diarrhea C diff pending continuing Flagyl await path from surgery Code(s): K59.39 - OTHER MEGACOLON (4) H/O: CVA (cerebrovascular accident) Assessment/Plan: no residual on coumadin at home holding at this time will be able to resume when NGT removed and pt ok for po meds Code(s): Z86.73 - PRSNL HX OF TIA (TIA), AND CEREB INFRC W/O RESID DEFICITS (5) Supratherapeutic INR Assessment/Plan: resolved follow coags eventually to resume home coumadin for h/o CVA Code(s): R79.1 - ABNORMAL COAGULATION PROFILE (6) Hypertension Assessment/Plan: IV meds prn while NPO resume home meds when NGT out Code(s): I10 - ESSENTIAL (PRIMARY) HYPERTENSION Qualifiers: Hypertension type: essential hypertension Qualified Code(s): I10 - Essential (primary) hypertension; I10 - Essential (primary) hypertension; I10 - Essential (primary) hypertension (7) COPD without exacerbation Assessment/Plan: nebs as indicated and prn defer to primary team Code(s): J44.9 - CHRONIC OBSTRUCTIVE PULMONARY DISEASE, UNSPECIFIED (8) Diabetes mellitus type 2, noninsulin dependent Assessment/Plan: FS with SSI Code(s): E11.9 - TYPE 2 DIABETES MELLITUS WITHOUT COMPLICATIONS (9) Cancer of left breast Assessment/Plan: has been on Arimidex per family and pt, Dr. Pete does not take her current insurance - they are planning to change oncologists Code(s): C50.912 - MALIGNANT NEOPLASM OF UNSPECIFIED SITE OF LEFT FEMALE BREAST Qualifiers: Breast location: upper outer quadrant of breast Estrogen receptor status: positive Patient sex: female Qualified Code(s): C50.412 - Malignant neoplasm of upper-outer quadrant of left female breast; C50.412 - Malignant neoplasm of upper-outer quadrant of left female breast; C50.412 - Malignant neoplasm of upper-outer quadrant of left female breast; C50.412 - Malignant neoplasm of upper-outer quadrant of left female breast; Z17.0 - Estrogen receptor positive status [ER+]; Z17.0 - Estrogen receptor positive status [ER+] Assessment/Plan This patient is critically ill. Time spent reviewing chart, examining patient, talking with providers and/or family and documentation is 35 minutes.
[2016-12-12] MEDS: SODIUM CHLORIDE 1,000 ML IV SCH (14:50)
[2016-12-12] MEDS: NYSTATIN 100000 UNIT/GM TOPICAL OINTMENT 15 GM TUBE TP SCH ×2 (14:52→23:28)
[2016-12-12] MEDS ORDERED: VANCOMYCIN 1,000 MG in DEXTROSE 5%-WATER - 250 ML IVPB ONE (17:30)
[2016-12-12] MEDS ORDERED: SODIUM CHLORIDE 1,000 ML IV SCH (21:29)
[2016-12-12] MEDS ORDERED: ONDANSETRON 4 MG/2 ML VIAL IVPUSH PRN (21:29)
[2016-12-12] MEDS ORDERED: ALBUTEROL SO4 18 GM HFA INHALER IH PRN (21:29)
[2016-12-13] MEDS: PIPERACILLIN/TAZOB 4.5 GM 100 ML IVPB SCH ×3 (01:39→20:21)
[2016-12-13] MEDS: METRONIDAZOLE 500 MG PREMIXED 100 ML IVPB SCH ×4 (02:19→21:22)
[2016-12-13] MEDS ORDERED: HEMOQUE TEST 1 EACH EACH ONE (05:37)
[2016-12-13 06:12] LABS: MCH 31.3 pg (25.7-33.7); MCHC 33.7 g/dl (32.0-36.0); MEAN CELL VOLUME 92.7 fl (80-96); MEAN PLT VOLUME 8.1 fl (7.5-11.1); PLATELET COUNT 230 K/MM3 (134-434); RDW 14.3 % (11.6-15.6)
[2016-12-13] MEDS: HEPARIN NA (PORCINE) 5,000 UNITS/ML 1ML VIAL SQ SCH ×3 (06:16→21:23)
[2016-12-13 06:26] LABS: INR 1.48 (0.82-1.09); PROTHROMBIN TIME (PATIENT) 16.7 SEC (9.98-11.88)
[2016-12-13 06:37] LABS: ALBUMIN 1.2 g/dl (3.4-5.0); ANION GAP 7 (8-16); CALCIUM 7.3 mg/dL (8.5-10.1); CO2 27 mmol/L (21-32); GLUCOSE,RANDOM 88 mg/dL (74-106); MAGNESIUM 1.7 mg/dL (1.8-2.4)
[2016-12-13 06:42] LABS: ALK PHOS 75 U/L (45-117); BILIRUBIN,TOTAL 0.4 mg/dL (0.2-1.0); CREATININE 0.2 mg/dL (0.55-1.02); PHOSPHOROUS 1.5 mg/dL (2.5-4.9); SGOT/AST 15 U/L (15-37); SGPT/ALT 8 U/L (12-78); TOT PROT 3.8 g/dl (6.4-8.2)
[2016-12-13] MEDS: INSULIN SLIDING SCALE (NOVOLOG) 1 VIAL SQ SCH ×4 (07:00→21:30)
--- NOTE | 2016-12-13 07:20 | PN ---
Progress Note, Physician Chief Complaint: ID Post op remains stable and comfortable Zosyn and metrondazole continues for peritonitis secondary perforation Afebrile - Current Medication List Current Medications: Active Medications Albuterol Sulfate (Ventolin Hfa Inhaler -) 2 puff IH Q4H PRN PRN Reason: SHORT OF BREATH/WHEEZING Albuterol/Ipratropium (Duoneb -) 1 amp NEB Q6H PRN PRN Reason: SHORTNESS OF BREATH Heparin Sodium (Porcine) (Heparin -) 5,000 unit SQ TID [facility] Last Admin: 12/13/16 06:16 Dose: 5,000 unit Metronidazole (Flagyl 500mg Premixed Ivpb -) 100 mls @ 100 mls/hr IVPB Q6H-IV [facility] Last Admin: 12/13/16 02:19 Dose: 100 mls/hr Famotidine/Sodium Chloride (Pepcid 20 Mg Premixed Ivpb -) 50 mls @ 100 mls/hr IVPB BID [facility] Last Admin: 12/12/16 23:44 Dose: Not Given Sodium Chloride (Normal Saline -) 1,000 mls @ 125 mls/hr IV ASDIR [facility] Last Admin: 12/12/16 23:44 Dose: Not Given Piperacillin Sod/Tazobactam Sod (Zosyn 4.5gm Ivpb (Pre-Docked)) 100 mls @ 200 mls/hr IVPB Q8H-IV [facility] PRN Reason: Protocol Last Admin: 12/13/16 01:39 Dose: 200 mls/hr Insulin Aspart (Novolog Vial Sliding Scale -) 1 vial SQ ACHS [facility] PRN Reason: Protocol Last Admin: 12/12/16 23:42 Dose: Not Given Nicotine (Nicoderm Patch -) 14 mg TD DAILY [facility] Nystatin (Mycostatin Ointment -) 1 applic TP BID [facility] Last Admin: 12/12/16 23:28 Dose: 1 appful Ondansetron HCl (Zofran Injection) 4 mg IVPUSH Q6H PRN PRN Reason: NAUSEA - Objective Vital Signs: Vital Signs Temperature 98.1 F 12/13/16 06:14 Pulse Rate 102 H 12/13/16 06:14 Respiratory Rate 20 12/13/16 06:14 Blood Pressure 148/63 12/13/16 06:14 O2 Sat by Pulse Oximetry (%) 96 12/13/16 04:37 Constitutional: Yes: Well Nourished, No Distress Eyes: Yes: Other (Blind right eye) Cardiovascular: Yes: Tachycardia, S1, S2. No: Murmur Respiratory: Yes: WNL, Regular, CTA Bilaterally Gastrointestinal: Yes: Soft, Other (VALE drain Colostomy). No: Tenderness Labs: CBC, BMP 12/13/16 05:10 12/13/16 05:10 INR, PTT INR 1.48 (0.82-1.09) H 12/13/16 05:10 Problem List - Problems (1) Diabetes mellitus type 2, noninsulin dependent Code(s): E11.9 - TYPE 2 DIABETES MELLITUS WITHOUT COMPLICATIONS (2) Perforated sigmoid colon Code(s): K63.1 - PERFORATION OF INTESTINE (NONTRAUMATIC) (3) Cancer of left breast Code(s): C50.912 - MALIGNANT NEOPLASM OF UNSPECIFIED SITE OF LEFT FEMALE BREAST Qualifiers: Breast location: upper outer quadrant of breast Estrogen receptor status: positive Patient sex: female Qualified Code(s): C50.412 - Malignant neoplasm of upper-outer quadrant of left female breast; C50.412 - Malignant neoplasm of upper-outer quadrant of left female breast; C50.412 - Malignant neoplasm of upper-outer quadrant of left female breast; C50.412 - Malignant neoplasm of upper-outer quadrant of left female breast; Z17.0 - Estrogen receptor positive status [ER+]; Z17.0 - Estrogen receptor positive status [ER+] (4) Peritonitis Code(s): K65.9 - PERITONITIS, UNSPECIFIED (5) Clostridium difficile infection Code(s): B96.89 - [facility] BACTERIAL AGENTS THE CAUSE OF DISEASES CLASSD [facility] Assessment/Plan Microbiology 12/11/16 15:45 Stool Clostridium difficile Antigen (KIRILL) - Final 12/11/16 15:45 Stool Clostridium difficile Toxin Assay - Final 12/10/16 19:30 Peritoneal Fluid Gram Stain - Final 12/10/16 19:30 Peritoneal Fluid Gram Stain - Final 12/10/16 11:47 Urine - Urine Clean Catch Urine Culture - Final NO GROWTH OBTAINED 12/10/16 19:30 Peritoneal Fluid Body Fluid Culture - Preliminary NO AEROBIC GROWTH, 24 HRS 12/08/16 12:00 Blood - Peripheral Venous Blood Culture - Preliminary NO GROWTH OBTAINED AFTER 96 HOURS, INCUBATION TO CONTINUE FOR 1 DAYS. 12/08/16 12:00 Blood - Peripheral Venous Blood Culture - Preliminary NO GROWTH OBTAINED AFTER 72 HOURS, INCUBATION TO CONTINUE FOR 2 DAYS. 12/08/16 11:25 Blood - Peripheral Venous Blood Culture - Preliminary NO GROWTH OBTAINED AFTER 96 HOURS, INCUBATION TO CONTINUE FOR 1 DAYS. 12/08/16 11:25 Blood - Peripheral Venous Blood Culture - Preliminary NO GROWTH OBTAINED AFTER 72 HOURS, INCUBATION TO CONTINUE FOR 2 DAYS. Laboratory Tests 12/12/16 12/12/16 12/13/16 05:55 05:55 05:10 WBC 11.5 H 9.0 Hgb 10.5 L D 10.3 L Hct 31.0 L 30.5 L Plt Count 252 230 BUN 12 Creatinine 0.3 L D Creat Clearance w eGFR > 60 Calcium Total Bilirubin Albumin 12/13/16 05:10 WBC Hgb Hct Plt Count BUN Creatinine Creat Clearance w eGFR > 60 Calcium 7.3 L Total Bilirubin 0.4 D Albumin 1.2 L Assessment Fecal perforation with peritonitis on antibiotics History of Breast CA C diff Ag positive but toxin neg. Patient was on antibiotics [employer]. While it is interesting to think that C diff infection may have precipitated her perforation cannot be sure of this. Were this the case I would have expected massive leukomoid response on admission as this is what severe C diff typical does. Moreover the toxin negative suggest possibly colonization with a nontoxin producing strain. That said reasonable to continue current therapy with metrondazole. Plan Continue current therapy as ordered with contact isolation Alexander GOMEZ
[2016-12-13] MEDS ORDERED: PT OWN MED DRAWER 7, Y5N ONE ×2 (09:30→22:17)
--- NOTE | 2016-12-13 09:40 | PN ---
Progress Note (short form) - Note Progress Note: Patient seen and examined in the Telemetry unit. Awake and alert. Reports pain is currently well managed. Denies SOB or CP. CXR : Mild pulmonary vascular congestion, compared to yesterday maybe be mildly improved / left effusion/atelectasis Intake & Output 12/10/16 12/11/16 12/12/16 12/13/16 23:59 23:59 23:59 23:59 Intake Total 09181 5489 3487.5 1350 Output Total 4500 1825 2280 503 Balance 8573 3664 1207.5 847 Weight 177 lb 0.012 oz 210 lb 5.136 oz 216 lb 0.848 oz Last Vital Signs Temp Pulse Resp BP Pulse Ox 98.1 F 102 H 20 148/63 96 12/13/16 06:14 12/13/16 06:14 12/13/16 06:14 12/13/16 06:14 12/13/16 04:37 Active Medications Albuterol Sulfate (Ventolin Hfa Inhaler -) 2 puff IH Q4H PRN PRN Reason: SHORT OF BREATH/WHEEZING Albuterol/Ipratropium (Duoneb -) 1 amp NEB Q6H PRN PRN Reason: SHORTNESS OF BREATH Heparin Sodium (Porcine) (Heparin -) 5,000 unit SQ TID [facility] Last Admin: 12/13/16 06:16 Dose: 5,000 unit Metronidazole (Flagyl 500mg Premixed Ivpb -) 100 mls @ 100 mls/hr IVPB Q6H-IV [facility] Last Admin: 12/13/16 02:19 Dose: 100 mls/hr Famotidine/Sodium Chloride (Pepcid 20 Mg Premixed Ivpb -) 50 mls @ 100 mls/hr IVPB BID [facility] Last Admin: 12/12/16 23:44 Dose: Not Given Sodium Chloride (Normal Saline -) 1,000 mls @ 125 mls/hr IV ASDIR [facility] Last Admin: 12/12/16 23:44 Dose: Not Given Piperacillin Sod/Tazobactam Sod (Zosyn 4.5gm Ivpb (Pre-Docked)) 100 mls @ 200 mls/hr IVPB Q8H-IV [facility] PRN Reason: Protocol Last Admin: 12/13/16 01:39 Dose: 200 mls/hr Insulin Aspart (Novolog Vial Sliding Scale -) 1 vial SQ ACHS [facility] PRN Reason: Protocol Last Admin: 12/12/16 23:42 Dose: Not Given Nicotine (Nicoderm Patch -) 14 mg TD DAILY [facility] Nystatin (Mycostatin Ointment -) 1 applic TP BID [facility] Last Admin: 12/12/16 23:28 Dose: 1 appful Ondansetron HCl (Zofran Injection) 4 mg IVPUSH Q6H PRN PRN Reason: NAUSEA Gen: Awake and alert, [place] Heart: S1S2, regular Lung: decreased breath sounds at the bases Abd: soft, +ostomy pink, +serosanguinous drainage Ext: + edema Laboratory Results - last 24 hr 12/13/16 12/13/16 12/13/16 05:10 05:10 05:10 WBC 9.0 RBC 3.29 L Hgb 10.3 L Hct 30.5 L MCV 92.7 MCH 31.3 MCHC 33.7 RDW 14.3 Plt Count 230 MPV 8.1 PT with INR 16.70 H INR 1.48 H Sodium 141 Potassium 3.1 L Chloride 107 Carbon Dioxide 27 Anion Gap 7 L BUN 8 D Creatinine 0.2 L D Creat Clearance w eGFR > 60 Random Glucose 88 Calcium 7.3 L Phosphorus 1.5 L Magnesium 1.7 L Total Bilirubin 0.4 D AST 15 D ALT 8 L D Alkaline Phosphatase 75 D Total Protein 3.8 L Albumin 1.2 L ASSESSMENT AND PLAN: Perforated Sigmoid Colon Peritonitis s/p ex-lap/sigmoid resection/colostomy Sepsis COPD HTN Hyperlipidemia DM Smoker h/o CVA - Replete lytes - IV antibiotics per ID - O2 to maintain saturation - incentive spirometry - inhaled bronchodilators - monitor urine output, creatinine - IVF - Pain control - DVT prophylaxis - Incentive Spirometry Dr Cormier
[2016-12-13] MEDS: FAMOTIDINE 20 MG/50 ML IVPB 50 ML IVPB SCH ×2 (09:44→21:22)
[2016-12-13] MEDS: D5-NS + 40 MEQ KCL - 1,000 ML IV SCH (10:00)
[2016-12-13] MEDS: NICOTINE 14 MG/24 HOURS TOPICAL PATCH TD SCH (10:00)
[2016-12-13] MEDS ORDERED: POTASSIUM PHOSPHATE 30 MM in DEXTROSE 5%-WATER - 250 ML IVPB ONE (10:45)
[2016-12-13] MEDS ORDERED: MAGNESIUM SULF 50% (8.12 MEQ/2 ML-1 GM VIAL) IVPB ONE (10:45)
[2016-12-13] MEDS: KCL 10 MEQ IVPB 100 ML IVPB SCH ×3 (11:02→15:00)
--- NOTE | 2016-12-13 11:25 | PN ---
Progress Note, Physician Chief Complaint: abdominal distention, LLQ pain History of Present Illness: POD3 s/p sigmoid resection with colostomy (Dwaine's procedure) for perforation of sigmoid doing well, pain controlled with occasional meds moved to telemetry bed UOP 1350ml yesterday, 450ml overnight, now compensator in Escobar, ~4-500 in bag NGT with 500 out yesterday, very little since VALE drain with 260 yesterday, 3 so far today, very littke serous in bulb colostomy with liquid and some mushy brown stool in bag, 170 yesterday, 50 today + some in bag No nausea. Awake, alert, in good spirits. Has not been OOB yet Productive cough with clear sputum - Current Medication List Current Medications: Active Medications Albuterol Sulfate (Ventolin Hfa Inhaler -) 2 puff IH Q4H PRN PRN Reason: SHORT OF BREATH/WHEEZING Albuterol/Ipratropium (Duoneb -) 1 amp NEB Q6H PRN PRN Reason: SHORTNESS OF BREATH Heparin Sodium (Porcine) (Heparin -) 5,000 unit SQ TID [facility] Last Admin: 12/13/16 06:16 Dose: 5,000 unit Metronidazole (Flagyl 500mg Premixed Ivpb -) 100 mls @ 100 mls/hr IVPB Q6H-IV [facility] Last Admin: 12/13/16 09:44 Dose: 100 mls/hr Famotidine/Sodium Chloride (Pepcid 20 Mg Premixed Ivpb -) 50 mls @ 100 mls/hr IVPB BID [facility] Last Admin: 12/13/16 09:44 Dose: 100 mls/hr Piperacillin Sod/Tazobactam Sod (Zosyn 4.5gm Ivpb (Pre-Docked)) 100 mls @ 200 mls/hr IVPB Q8H-IV [facility] PRN Reason: Protocol Last Admin: 12/13/16 01:39 Dose: 200 mls/hr Potassium Chloride (Potassium Chloride 10 Meq Premix Ivpb -) 100 mls @ 100 mls/ hr IVPB Q60M [facility] Stop: 12/13/16 12:44 Last Admin: 12/13/16 11:02 Dose: 100 mls/hr Dextrose/Sodium Chloride (Dextrose 5%-Normal Saline+40 Meq Kcl -) 1,000 mls @ 100 mls/hr IV [facility] Potassium Phosphate 30 mm/ (Dextrose) 260 mls @ 65 mls/hr IVPB ONCE ONE PRN Reason: 30 MM/4 HR Stop: 12/13/16 14:44 Insulin Aspart (Novolog Vial Sliding Scale -) 1 vial SQ ACHS [facility] PRN Reason: Protocol Last Admin: 12/13/16 07:00 Dose: Not Given Nicotine (Nicoderm Patch -) 14 mg TD DAILY [facility] Nystatin (Nystop Powder -) 1 applic TP TID [facility] Ondansetron HCl (Zofran Injection) 4 mg IVPUSH Q6H PRN PRN Reason: NAUSEA - Objective Vital Signs: Vital Signs Temperature 98.1 F 12/13/16 06:14 Pulse Rate 102 H 12/13/16 06:14 Respiratory Rate 20 12/13/16 06:14 Blood Pressure 148/63 12/13/16 06:14 O2 Sat by Pulse Oximetry (%) 96 12/13/16 04:37 Vital Signs Period Temp Pulse Resp BP Sys/Holt Pulse Ox Last 24 Hr 98.1 F-99.4 F 91-118 20-24 115-165/54-82 96-96 Intake & Output 12/12/16 12/13/16 12/13/16 23:59 07:59 15:59 Intake Total 1337.5 1350 Output Total 785 503 Balance 552.5 847 Intake: IV 437.5 1200 Normal Saline - 1,000 ml 437.5 1200 @ 125 mls/hr IV [facility] Rx#:[id number] IVPB 900 150 Output: Gastric Drainage 250 Drainage 85 53 Abdomen 35 3 colostomy 50 50 Urine 450 450 Escobar 450 450 Other: Voiding Method Indwelling Catheter Indwelling Catheter Bowel Movement Yes: colostomy # Bowel Movements 1 Constitutional: Yes: No Distress, Calm, Obese HENT: Yes: Other (NGT in place, has slipped out 5-10cm) Cardiovascular: Yes: Tachycardia (mild). No: Pulse Irregular Respiratory: Yes: Regular, Cough (good effort), Diminished (at bases), On Nasal O2, Wheezes (mild inspiratory bilaterally, clears partially with good cough, slight expiratory) Gastrointestinal: Yes: Soft, Abdomen, Obese, Hypoactive Bowel Sounds, Tenderness (minimal lower quadrants), Other (colostomy pink, patent, productive of mostly liquid brown stool, some mushy/stool in bag) Genitourinary: Yes: Escobar Present (compensator yellow). No: Hematuria, Oliguria Integumentary: Yes: Incision (midline). No: Rash Wound/Incision: Yes: Rush Intact (at umbilicus, right skin edge purplish), Dressing Dry and Intact, Dressing Removed (midline changed - clean, serous/ serosang drainage on packing - 3" roll gauze replaced above and below umbilicus , no sig granulation yet), Unapproximated Neurological: Yes: Alert, Oriented Labs: CBC, BMP 12/13/16 05:10 12/13/16 05:10 INR, PTT INR 1.48 (0.82-1.09) H 12/13/16 05:10 CMP Sodium 141 mmol/L (136-145) 12/13/16 05:10 Potassium 3.1 mmol/L (3.5-5.1) L 12/13/16 05:10 Chloride 107 mmol/L (98-107) 12/13/16 05:10 Carbon Dioxide 27 mmol/L (21-32) 12/13/16 05:10 Anion Gap 7 (8-16) L 12/13/16 05:10 BUN 8 mg/dL (7-18) D 12/13/16 05:10 Creatinine 0.2 mg/dL (0.55-1.02) L D 12/13/16 05:10 Creat Clearance w eGFR > 60 (>60) 12/13/16 05:10 POC Glucometer 100 UNITS (()) 12/10/16 12:26 Random Glucose 88 mg/dL (74-106) 12/13/16 05:10 Lactic Acid 1.0 mmol/L (0.4-2.0) 12/10/16 22:55 Calcium 7.3 mg/dL (8.5-10.1) L 12/13/16 05:10 Phosphorus 1.5 mg/dL (2.5-4.9) L 12/13/16 05:10 Magnesium 1.7 mg/dL (1.8-2.4) L 12/13/16 05:10 Total Bilirubin 0.4 mg/dL (0.2-1.0) D 12/13/16 05:10 Direct Bilirubin < 0.1 mg/dL (0.0-0.2) 12/11/16 05:00 AST 15 U/L (15-37) D 12/13/16 05:10 ALT 8 U/L (12-78) L D 12/13/16 05:10 Alkaline Phosphatase 75 U/L (45-117) D 12/13/16 05:10 Total Protein 3.8 g/dl (6.4-8.2) L 12/13/16 05:10 Albumin 1.2 g/dl (3.4-5.0) L 12/13/16 05:10 Lipase 21 U/L (22-51) L 12/08/16 11:50 INR, PTT INR 1.48 (0.82-1.09) H 12/13/16 05:10 Microbiology 12/08/16 12:00 Blood Culture - Preliminary Blood - Peripheral Venous NO GROWTH OBTAINED AFTER 96 HOURS, INCUBATION TO CONTINUE FOR 1 DAYS. 12/08/16 11:25 Blood Culture - Preliminary Blood - Peripheral Venous NO GROWTH OBTAINED AFTER 96 HOURS, INCUBATION TO CONTINUE FOR 1 DAYS. 12/11/16 15:45 Clostridium difficile Antigen ([facility]) - Final Stool Clostridium difficile Toxin Assay - Final 12/10/16 19:30 Gram Stain - Final Peritoneal Fluid Body Fluid Culture - Preliminary NO AEROBIC GROWTH, 24 HRS C. diff antigen positive, toxin negative - ....Imaging Chest X-ray: Report Reviewed Problem List - Problems (1) Perforated sigmoid colon Assessment/Plan: POD3 s/p sigmoid resection with colostomy (Dwaine's procedure) for perforated sigmoid colon on nasal cannula O2, using incentive spirometer NG output down, will clamp tube, check residual in 4 hrs and likely d/c keep NPO/IVF today UOP improved will d/c Escobar and continue strict I/O's, pt ok to use bedside commode OOB to chair continue IS with pulm toilet pain controlled continue Flag Luisyl - ID on board repleting lytes colostomy with mostly liquid stool output C diff results noted - could have been related to megacolon but no way to be certain drain with minimal serous fluid midline wound dressing changed - open and clean await pathology Code(s): K63.1 - PERFORATION OF INTESTINE (NONTRAUMATIC) (2) LLQ pain Code(s): R10.32 - LEFT LOWER QUADRANT PAIN (3) Dilatation of colon Assessment/Plan: etiology still unclear - had inflamed segment of sigmoid with perforation at necrotic patch but no significant mass or any purulence could have been C diff related after Augmentin 2 wks ago, but no longer having diarrhea C diff results noted on contact precautions continuing Flagyl await path from surgery Code(s): K59.39 - OTHER MEGACOLON (4) H/O: CVA (cerebrovascular accident) Assessment/Plan: no residual on coumadin at home holding at this time will be able to resume when NGT removed and pt ok for po meds Code(s): Z86.73 - PRSNL HX OF TIA (TIA), AND CEREB INFRC W/O RESID DEFICITS (5) Hypertension Assessment/Plan: IV meds prn while NPO resume home meds when NGT out Code(s): I10 - ESSENTIAL (PRIMARY) HYPERTENSION Qualifiers: Hypertension type: essential hypertension Qualified Code(s): I10 - Essential (primary) hypertension; I10 - Essential (primary) hypertension; I10 - Essential (primary) hypertension (6) COPD without exacerbation Assessment/Plan: nebs as indicated and prn IS and encourage coughing/expectoration defer to primary team Code(s): J44.9 - CHRONIC OBSTRUCTIVE PULMONARY DISEASE, UNSPECIFIED (7) Diabetes mellitus type 2, noninsulin dependent Assessment/Plan: FS with SSI Code(s): E11.9 - TYPE 2 DIABETES MELLITUS WITHOUT COMPLICATIONS (8) Cancer of left breast Assessment/Plan: has been on Arimidex per family and pt, Dr. Pete does not take her current insurance - they are planning to change oncologists Code(s): C50.912 - MALIGNANT NEOPLASM OF UNSPECIFIED SITE OF LEFT FEMALE BREAST Qualifiers: Breast location: upper outer quadrant of breast Estrogen receptor status: positive Patient sex: female Qualified Code(s): C50.412 - Malignant neoplasm of upper-outer quadrant of left female breast; C50.412 - Malignant neoplasm of upper-outer quadrant of left female breast; C50.412 - Malignant neoplasm of upper-outer quadrant of left female breast; C50.412 - Malignant neoplasm of upper-outer quadrant of left female breast; Z17.0 - Estrogen receptor positive status [ER+]; Z17.0 - Estrogen receptor positive status [ER+]
--- NOTE | 2016-12-13 13:25 | PN ---
Progress Note, Physician History of Present Illness: Pt w/o F, C, cough, SOB, CP. palp. Pt with abd pain, controlled by medication. - Current Medication List Current Medications: Active Medications Albuterol Sulfate (Ventolin Hfa Inhaler -) 2 puff IH Q4H PRN PRN Reason: SHORT OF BREATH/WHEEZING Albuterol/Ipratropium (Duoneb -) 1 amp NEB Q6H PRN PRN Reason: SHORTNESS OF BREATH Heparin Sodium (Porcine) (Heparin -) 5,000 unit SQ TID [facility] Last Admin: 12/13/16 06:16 Dose: 5,000 unit Metronidazole (Flagyl 500mg Premixed Ivpb -) 100 mls @ 100 mls/hr IVPB Q6H-IV [facility] Last Admin: 12/13/16 09:44 Dose: 100 mls/hr Famotidine/Sodium Chloride (Pepcid 20 Mg Premixed Ivpb -) 50 mls @ 100 mls/hr IVPB BID [facility] Last Admin: 12/13/16 09:44 Dose: 100 mls/hr Piperacillin Sod/Tazobactam Sod (Zosyn 4.5gm Ivpb (Pre-Docked)) 100 mls @ 200 mls/hr IVPB Q8H-IV [facility] PRN Reason: Protocol Last Admin: 12/13/16 01:39 Dose: 200 mls/hr Dextrose/Sodium Chloride (Dextrose 5%-Normal Saline+40 Meq Kcl -) 1,000 mls @ 100 mls/hr IV [facility] Potassium Phosphate 30 mm/ (Dextrose) 260 mls @ 65 mls/hr IVPB ONCE ONE PRN Reason: 30 MM/4 HR Stop: 12/13/16 14:44 Insulin Aspart (Novolog Vial Sliding Scale -) 1 vial SQ ACHS [facility] PRN Reason: Protocol Last Admin: 12/13/16 12:08 Dose: Not Given Nicotine (Nicoderm Patch -) 14 mg TD DAILY [facility] Nystatin (Nystop Powder -) 1 applic TP TID [facility] Ondansetron HCl (Zofran Injection) 4 mg IVPUSH Q6H PRN PRN Reason: NAUSEA - Objective Vital Signs: Vital Signs Temperature 98.1 F 12/13/16 06:14 Pulse Rate 102 H 12/13/16 06:14 Respiratory Rate 20 12/13/16 06:14 Blood Pressure 148/63 12/13/16 06:14 O2 Sat by Pulse Oximetry (%) 96 12/13/16 04:37 Constitutional: Yes: No Distress, Calm Cardiovascular: Yes: Tachycardia, S1, S2 Respiratory: Yes: Regular, CTA Bilaterally. No: Rales Gastrointestinal: Yes: Normal Bowel Sounds, Soft, Hypoactive Bowel Sounds, Tenderness (with palpation), Other (+ colostomy bag with brown liquid stool) Edema: No Neurological: Yes: Alert, Oriented Labs: CBC, BMP 12/13/16 05:10 12/13/16 05:10 INR, PTT INR 1.48 (0.82-1.09) H 12/13/16 05:10 Problem List - Problems (1) Perforated sigmoid colon Code(s): K63.1 - PERFORATION OF INTESTINE (NONTRAUMATIC) (2) Colostomy in place Code(s): Z93.3 - COLOSTOMY STATUS (3) Dilatation of colon Code(s): K59.39 - OTHER MEGACOLON (4) LLQ pain Code(s): R10.32 - LEFT LOWER QUADRANT PAIN (5) Cancer of left breast Code(s): C50.912 - MALIGNANT NEOPLASM OF UNSPECIFIED SITE OF LEFT FEMALE BREAST Qualifiers: Breast location: upper outer quadrant of breast Estrogen receptor status: positive Patient sex: female Qualified Code(s): C50.412 - Malignant neoplasm of upper-outer quadrant of left female breast; C50.412 - Malignant neoplasm of upper-outer quadrant of left female breast; C50.412 - Malignant neoplasm of upper-outer quadrant of left female breast; C50.412 - Malignant neoplasm of upper-outer quadrant of left female breast; Z17.0 - Estrogen receptor positive status [ER+]; Z17.0 - Estrogen receptor positive status [ER+] (6) Diabetes mellitus type 2, noninsulin dependent Code(s): E11.9 - TYPE 2 DIABETES MELLITUS WITHOUT COMPLICATIONS (7) H/O: CVA (cerebrovascular accident) Code(s): Z86.73 - PRSNL HX OF TIA (TIA), AND CEREB INFRC W/O RESID DEFICITS (8) Supratherapeutic INR Code(s): R79.1 - ABNORMAL COAGULATION PROFILE (9) Hypertension Code(s): I10 - ESSENTIAL (PRIMARY) HYPERTENSION Qualifiers: Hypertension type: essential hypertension Qualified Code(s): I10 - Essential (primary) hypertension; I10 - Essential (primary) hypertension; I10 - Essential (primary) hypertension (10) COPD (chronic obstructive pulmonary disease) Code(s): J44.9 - CHRONIC OBSTRUCTIVE PULMONARY DISEASE, UNSPECIFIED (11) Hypomagnesemia Code(s): E83.42 - HYPOMAGNESEMIA (12) Hypophosphatemia Code(s): E83.39 - OTHER DISORDERS OF PHOSPHORUS METABOLISM (13) Hypoalbuminemia Code(s): E88.09 - OTH DISORDERS OF PLASMA-PROTEIN METABOLISM, NEC Assessment/Plan Pt is post op day #3. Pt was transferred to telemetry bed Pt is on IVF. Strictly I/O. NPO, NGT. BGM with coverage for now. Pt is on IV abtx( Flagyl, Zosyn). Pt with low K, Mg, Ph Monitor and replete electrolytes Case was d/w Dr. Mitchell, can start Coumadin while starting PO intake AM labs. Case was d/w pt's nurse.
[2016-12-13] MEDS: NYSTATIN POWDER 100,000 UNITS/GM - 15 GM TOPICAL POWDER TP SCH ×2 (14:00→21:29)
[2016-12-13] MEDS ORDERED: morphine CARPU-JECT 2 MG/1 ML DISP.SYRIN IVPUSH PRN ×2 (15:55→18:55)
[2016-12-13] MEDS ORDERED: morphine CARPU-JECT 4 MG/1 ML DISP.SYRIN ONE (16:29)
[2016-12-13] MEDS: morphine CARPU-JECT 4 MG/1 ML DISP.SYRIN IVPUSH PRN (16:38)
[2016-12-13] MEDS: NYSTATIN 100000 UNIT/GM TOPICAL OINTMENT 15 GM TUBE TP SCH (20:21)
[2016-12-14] MEDS: PIPERACILLIN/TAZOB 4.5 GM 100 ML IVPB SCH ×3 (02:27→17:31)
[2016-12-14] MEDS: ALBUTEROL SO4 2.5/IPRATROPIUM 0.5 INH SOL 3 ML VIAL.NEB. NEB PRN (02:36)
[2016-12-14] MEDS: METRONIDAZOLE 500 MG PREMIXED 100 ML IVPB SCH ×4 (02:58→21:56)
[2016-12-14 06:14] LABS: MCH 31.2 pg (25.7-33.7); MCHC 33.5 g/dl (32.0-36.0); MEAN CELL VOLUME 93.3 fl (80-96); MEAN PLT VOLUME 8.3 fl (7.5-11.1); PLATELET COUNT 234 K/MM3 (134-434); RDW 14.6 % (11.6-15.6); WHITE BLOOD COUNT 7.5 K/mm3 (4.0-10.0)
[2016-12-14] MEDS: NYSTATIN POWDER 100,000 UNITS/GM - 15 GM TOPICAL POWDER TP SCH ×3 (06:39→21:59)
[2016-12-14] MEDS: HEPARIN NA (PORCINE) 5,000 UNITS/ML 1ML VIAL SQ SCH ×3 (06:39→21:57)
[2016-12-14] MEDS: D5-NS + 40 MEQ KCL - 1,000 ML IV SCH ×3 (06:41→11:00)
[2016-12-14 06:43] LABS: ALBUMIN 1.3 g/dl (3.4-5.0); ANION GAP 7 (8-16); CALCIUM 7.3 mg/dL (8.5-10.1); CO2 31 mmol/L (21-32); GLUCOSE,RANDOM 141 mg/dL (74-106); MAGNESIUM 1.8 mg/dL (1.8-2.4); PHOSPHOROUS 1.6 mg/dL (2.5-4.9)
[2016-12-14 06:44] LABS: ALK PHOS 125 U/L (45-117); BILIRUBIN,TOTAL 0.4 mg/dL (0.2-1.0); CREATININE 0.2 mg/dL (0.55-1.02); SGOT/AST 21 U/L (15-37); SGPT/ALT 9 U/L (12-78)
[2016-12-14] MEDS: INSULIN SLIDING SCALE (NOVOLOG) 1 VIAL SQ SCH ×4 (06:54→22:37)
[2016-12-14] MEDS: FAMOTIDINE 20 MG/50 ML IVPB 50 ML IVPB SCH ×2 (09:59→21:57)
--- NOTE | 2016-12-14 10:11 | PN ---
Progress Note (short form) - Note Progress Note: Patient seen and examined in the Telemetry unit. Awake and alert on VM O2. Overnight noted to desaturate and need to be placed on VM O2. Reports pain is currently reasonably managed. Intake & Output 12/11/16 12/12/16 12/13/16 12/14/16 23:59 23:59 23:59 23:59 Intake Total 5489 3487.5 1850 700 Output Total 1825 2280 1778 Balance 3664 1207.5 72 700 Weight 210 lb 5.136 oz 216 lb 0.848 oz Last Vital Signs Temp Pulse Resp BP Pulse Ox 98 F 100 H 20 138/78 98 12/14/16 06:00 12/14/16 06:00 12/14/16 06:00 12/14/16 06:00 12/13/16 20:31 Active Medications Albuterol Sulfate (Ventolin Hfa Inhaler -) 2 puff IH Q4H PRN PRN Reason: SHORT OF BREATH/WHEEZING Albuterol/Ipratropium (Duoneb -) 1 amp NEB Q6H PRN PRN Reason: SHORTNESS OF BREATH Last Admin: 12/14/16 02:36 Dose: 1 amp Heparin Sodium (Porcine) (Heparin -) 5,000 unit SQ TID [facility] Last Admin: 12/14/16 06:39 Dose: 5,000 unit Metronidazole (Flagyl 500mg Premixed Ivpb -) 100 mls @ 100 mls/hr IVPB Q6H-IV [facility] Last Admin: 12/14/16 09:59 Dose: 100 mls/hr Famotidine/Sodium Chloride (Pepcid 20 Mg Premixed Ivpb -) 50 mls @ 100 mls/hr IVPB BID [facility] Last Admin: 12/14/16 09:59 Dose: 100 mls/hr Piperacillin Sod/Tazobactam Sod (Zosyn 4.5gm Ivpb (Pre-Docked)) 100 mls @ 200 mls/hr IVPB Q8H-IV [facility] PRN Reason: Protocol Last Admin: 12/14/16 10:00 Dose: 200 mls/hr Dextrose/Sodium Chloride (Dextrose 5%-Normal Saline+40 Meq Kcl -) 1,000 mls @ 100 mls/hr IV [facility] Last Admin: 12/14/16 09:59 Dose: Not Given Insulin Aspart (Novolog Vial Sliding Scale -) 1 vial SQ ACHS [facility] PRN Reason: Protocol Last Admin: 12/14/16 06:54 Dose: 2 units Morphine Sulfate (Morphine Injection -) 4 mg IVPUSH Q3H PRN PRN Reason: PAIN Nicotine (Nicoderm Patch -) 14 mg TD DAILY [facility] Last Admin: 12/13/16 10:00 Dose: Not Given Nystatin (Nystop Powder -) 1 applic TP TID [facility] Last Admin: 12/14/16 06:39 Dose: 1 applic Ondansetron HCl (Zofran Injection) 4 mg IVPUSH Q6H PRN PRN Reason: NAUSEA Gen: Awake and alert, Mildly tachypneic at rest on VM O2 Heart: S1S2, regular Lung: Bibasilar rales / rhonchi Abd: soft, +ostomy pink, +serosanguinous drainage Ext: + edema Laboratory Results - last 24 hr 12/14/16 12/14/16 05:10 05:10 WBC 7.5 RBC 3.21 L Hgb 10.0 L Hct 30.0 L MCV 93.3 MCH 31.2 MCHC 33.5 RDW 14.6 Plt Count 234 MPV 8.3 Sodium 142 Potassium 3.5 Chloride 104 Carbon Dioxide 31 Anion Gap 7 L BUN 6 L D Creatinine 0.2 L Creat Clearance w eGFR > 60 Random Glucose 141 H D Calcium 7.3 L Phosphorus 1.6 L Magnesium 1.8 Total Bilirubin 0.4 AST 21 D ALT 9 L Alkaline Phosphatase 125 H D Total Protein 4.0 L Albumin 1.3 L ASSESSMENT AND PLAN: Perforated Sigmoid Colon Peritonitis s/p ex-lap/sigmoid resection/colostomy Sepsis COPD HTN Hyperlipidemia DM Smoker h/o CVA - Decrease IVF - STAT CXR - Replete lytes - IV antibiotics per ID - O2 to maintain saturation - incentive spirometry - inhaled bronchodilators - monitor urine output, creatinine - IVF - Pain control - DVT prophylaxis - Incentive Spirometry Dr Cormier
[2016-12-14] MEDS ORDERED: POTASSIUM PHOSPHATE 30 MM in DEXTROSE 5%-WATER - 250 ML IVPB ONE (10:12)
--- NOTE | 2016-12-14 11:04 | PN ---
Progress Note, Physician History of Present Illness: Awake, alert No c/o abdominal pain No fever/ chills Afebrile WBC WNL - Current Medication List Current Medications: Active Medications Albuterol Sulfate (Ventolin Hfa Inhaler -) 2 puff IH Q4H PRN PRN Reason: SHORT OF BREATH/WHEEZING Albuterol/Ipratropium (Duoneb -) 1 amp NEB Q6H PRN PRN Reason: SHORTNESS OF BREATH Last Admin: 12/14/16 02:36 Dose: 1 amp Heparin Sodium (Porcine) (Heparin -) 5,000 unit SQ TID [facility] Last Admin: 12/14/16 06:39 Dose: 5,000 unit Metronidazole (Flagyl 500mg Premixed Ivpb -) 100 mls @ 100 mls/hr IVPB Q6H-IV [facility] Last Admin: 12/14/16 09:59 Dose: 100 mls/hr Famotidine/Sodium Chloride (Pepcid 20 Mg Premixed Ivpb -) 50 mls @ 100 mls/hr IVPB BID [facility] Last Admin: 12/14/16 09:59 Dose: 100 mls/hr Piperacillin Sod/Tazobactam Sod (Zosyn 4.5gm Ivpb (Pre-Docked)) 100 mls @ 200 mls/hr IVPB Q8H-IV [facility] PRN Reason: Protocol Last Admin: 12/14/16 10:00 Dose: 200 mls/hr Dextrose/Sodium Chloride (Dextrose 5%-Normal Saline+40 Meq Kcl -) 1,000 mls @ 50 mls/hr IV [facility] Potassium Phosphate 30 mm/ (Dextrose) 260 mls @ 62.5 mls/hr IVPB ONCE ONE Stop: 12/14/16 14:21 Insulin Aspart (Novolog Vial Sliding Scale -) 1 vial SQ ACHS [facility] PRN Reason: Protocol Last Admin: 12/14/16 06:54 Dose: 2 units Morphine Sulfate (Morphine Injection -) 4 mg IVPUSH Q3H PRN PRN Reason: PAIN Nicotine (Nicoderm Patch -) 14 mg TD DAILY [facility] Last Admin: 12/13/16 10:00 Dose: Not Given Nystatin (Nystop Powder -) 1 applic TP TID [facility] Last Admin: 12/14/16 06:39 Dose: 1 applic Ondansetron HCl (Zofran Injection) 4 mg IVPUSH Q6H PRN PRN Reason: NAUSEA - Objective Vital Signs: Vital Signs Temperature 98 F 12/14/16 06:00 Pulse Rate 100 H 12/14/16 06:00 Respiratory Rate 20 12/14/16 06:00 Blood Pressure 138/78 12/14/16 06:00 O2 Sat by Pulse Oximetry (%) 98 12/13/16 20:31 Constitutional: Yes: No Distress, Obese Eyes: Yes: Conjunctiva Clear, Other (opacified R cornea) Cardiovascular: Yes: Regular Rate and Rhythm, S1, S2 Respiratory: Yes: Diminished Gastrointestinal: Yes: Normal Bowel Sounds, Soft, Other (+ surgical wound , VALE, ostomy). No: Tenderness Edema: Yes Labs: CBC, BMP 12/14/16 05:10 12/14/16 05:10 INR, PTT INR 1.48 (0.82-1.09) H 12/13/16 05:10 Assessment/Plan S/P perforated viscus Peritonitis + C. difficile Continue zosyn/ flagyl Contact precautions
--- NOTE | 2016-12-14 11:21 | PN ---
Progress Note, Physician History of Present Illness: Pt w/o F, C, cough, SOB, CP. palp, N, V. Pt with abd pain is improved, controlled by medication. - Current Medication List Current Medications: Active Medications Albuterol Sulfate (Ventolin Hfa Inhaler -) 2 puff IH Q4H PRN PRN Reason: SHORT OF BREATH/WHEEZING Albuterol/Ipratropium (Duoneb -) 1 amp NEB Q6H PRN PRN Reason: SHORTNESS OF BREATH Last Admin: 12/14/16 02:36 Dose: 1 amp Heparin Sodium (Porcine) (Heparin -) 5,000 unit SQ TID [facility] Last Admin: 12/14/16 06:39 Dose: 5,000 unit Metronidazole (Flagyl 500mg Premixed Ivpb -) 100 mls @ 100 mls/hr IVPB Q6H-IV [facility] Last Admin: 12/14/16 09:59 Dose: 100 mls/hr Famotidine/Sodium Chloride (Pepcid 20 Mg Premixed Ivpb -) 50 mls @ 100 mls/hr IVPB BID [facility] Last Admin: 12/14/16 09:59 Dose: 100 mls/hr Piperacillin Sod/Tazobactam Sod (Zosyn 4.5gm Ivpb (Pre-Docked)) 100 mls @ 200 mls/hr IVPB Q8H-IV [facility] PRN Reason: Protocol Last Admin: 12/14/16 10:00 Dose: 200 mls/hr Dextrose/Sodium Chloride (Dextrose 5%-Normal Saline+40 Meq Kcl -) 1,000 mls @ 50 mls/hr IV [facility] Potassium Phosphate 30 mm/ (Dextrose) 260 mls @ 62.5 mls/hr IVPB ONCE ONE Stop: 12/14/16 14:21 Insulin Aspart (Novolog Vial Sliding Scale -) 1 vial SQ ACHS [facility] PRN Reason: Protocol Last Admin: 12/14/16 06:54 Dose: 2 units Morphine Sulfate (Morphine Injection -) 4 mg IVPUSH Q3H PRN PRN Reason: PAIN Nicotine (Nicoderm Patch -) 14 mg TD DAILY [facility] Last Admin: 12/13/16 10:00 Dose: Not Given Nystatin (Nystop Powder -) 1 applic TP TID [facility] Last Admin: 12/14/16 06:39 Dose: 1 applic Ondansetron HCl (Zofran Injection) 4 mg IVPUSH Q6H PRN PRN Reason: NAUSEA - Objective Vital Signs: Vital Signs Temperature 98 F 12/14/16 06:00 Pulse Rate 100 H 12/14/16 06:00 Respiratory Rate 20 12/14/16 06:00 Blood Pressure 138/78 12/14/16 06:00 O2 Sat by Pulse Oximetry (%) 98 12/13/16 20:31 Constitutional: Yes: No Distress, Calm Cardiovascular: Yes: Regular Rate and Rhythm, S1, S2 Respiratory: Yes: Regular, CTA Bilaterally. No: Rales Gastrointestinal: Yes: Normal Bowel Sounds, Soft, Tenderness (mild) Edema: No Neurological: Yes: Alert, Oriented Labs: CBC, BMP 12/14/16 05:10 12/14/16 05:10 INR, PTT INR 1.48 (0.82-1.09) H 12/13/16 05:10 Problem List - Problems (1) Perforated sigmoid colon Code(s): K63.1 - PERFORATION OF INTESTINE (NONTRAUMATIC) (2) Colostomy in place Code(s): Z93.3 - COLOSTOMY STATUS (3) Dilatation of colon Code(s): K59.39 - OTHER MEGACOLON (4) LLQ pain Code(s): R10.32 - LEFT LOWER QUADRANT PAIN (5) Cancer of left breast Code(s): C50.912 - MALIGNANT NEOPLASM OF UNSPECIFIED SITE OF LEFT FEMALE BREAST Qualifiers: Breast location: upper outer quadrant of breast Estrogen receptor status: positive Patient sex: female Qualified Code(s): C50.412 - Malignant neoplasm of upper-outer quadrant of left female breast; C50.412 - Malignant neoplasm of upper-outer quadrant of left female breast; C50.412 - Malignant neoplasm of upper-outer quadrant of left female breast; C50.412 - Malignant neoplasm of upper-outer quadrant of left female breast; Z17.0 - Estrogen receptor positive status [ER+]; Z17.0 - Estrogen receptor positive status [ER+] (6) Diabetes mellitus type 2, noninsulin dependent Code(s): E11.9 - TYPE 2 DIABETES MELLITUS WITHOUT COMPLICATIONS (7) H/O: CVA (cerebrovascular accident) Code(s): Z86.73 - PRSNL HX OF TIA (TIA), AND CEREB INFRC W/O RESID DEFICITS (8) Supratherapeutic INR Code(s): R79.1 - ABNORMAL COAGULATION PROFILE (9) Hypertension Code(s): I10 - ESSENTIAL (PRIMARY) HYPERTENSION Qualifiers: Hypertension type: essential hypertension Qualified Code(s): I10 - Essential (primary) hypertension; I10 - Essential (primary) hypertension; I10 - Essential (primary) hypertension (10) COPD (chronic obstructive pulmonary disease) Code(s): J44.9 - CHRONIC OBSTRUCTIVE PULMONARY DISEASE, UNSPECIFIED (11) Hypomagnesemia Code(s): E83.42 - HYPOMAGNESEMIA (12) Hypophosphatemia Code(s): E83.39 - OTHER DISORDERS OF PHOSPHORUS METABOLISM (13) Hypoalbuminemia Code(s): E88.09 - OTH DISORDERS OF PLASMA-PROTEIN METABOLISM, NEC Assessment/Plan Pt is post op day #4. Pt is on IVF. Strictly I/O. NPO excep meds, NGT- to be removed today. BGM with coverage for now. Pt is on IV abtx( Flagyl, Zosyn). Monitor and replete electrolytes To f/u with Sx when can restart AC. AM labs. Start Coumadin. Case was d/w pt's nurse. Time spent for managing patient care: 40 minutes
[2016-12-14] MEDS: NICOTINE 14 MG/24 HOURS TOPICAL PATCH TD SCH (12:31)
--- NOTE | 2016-12-14 12:31 | PN ---
Progress Note, Physician Chief Complaint: abdominal distention, LLQ pain History of Present Illness: POD4 s/p sigmoid resection with colostomy (Dwaine's procedure) for perforation of sigmoid, possibly secondary to C. diff megacolon pt seen and examined in bed tried to get OOB to chair yesterday, but she was unable to do so doing well, pain controlled with occasional meds UOP 375ml in two voids since Escobar removed, using bedpan NG clamped with no nausea since yesterday VALE drain with 28 out yesterday, very little serous in bulb colostomy with brown liquid stool, 225 yesterday, some in bag - Current Medication List Current Medications: Active Medications Albuterol Sulfate (Ventolin Hfa Inhaler -) 2 puff IH Q4H PRN PRN Reason: SHORT OF BREATH/WHEEZING Albuterol/Ipratropium (Duoneb -) 1 amp NEB Q6H PRN PRN Reason: SHORTNESS OF BREATH Last Admin: 12/14/16 02:36 Dose: 1 amp Carvedilol (Coreg -) 6.25 mg PO BID [facility] Heparin Sodium (Porcine) (Heparin -) 5,000 unit SQ TID [facility] Last Admin: 12/14/16 06:39 Dose: 5,000 unit Metronidazole (Flagyl 500mg Premixed Ivpb -) 100 mls @ 100 mls/hr IVPB Q6H-IV [facility] Last Admin: 12/14/16 09:59 Dose: 100 mls/hr Famotidine/Sodium Chloride (Pepcid 20 Mg Premixed Ivpb -) 50 mls @ 100 mls/hr IVPB BID [facility] Last Admin: 12/14/16 09:59 Dose: 100 mls/hr Piperacillin Sod/Tazobactam Sod (Zosyn 4.5gm Ivpb (Pre-Docked)) 100 mls @ 200 mls/hr IVPB Q8H-IV [facility] PRN Reason: Protocol Last Admin: 12/14/16 10:00 Dose: 200 mls/hr Dextrose/Sodium Chloride (Dextrose 5%-Normal Saline+40 Meq Kcl -) 1,000 mls @ 50 mls/hr IV ASDIR [facility] Potassium Phosphate 30 mm/ (Dextrose) 260 mls @ 62.5 mls/hr IVPB ONCE ONE Stop: 12/14/16 14:21 Insulin Aspart (Novolog Vial Sliding Scale -) 1 vial SQ ACHS [facility] PRN Reason: Protocol Last Admin: 12/14/16 06:54 Dose: 2 units Morphine Sulfate (Morphine Injection -) 4 mg IVPUSH Q3H PRN PRN Reason: PAIN Nicotine (Nicoderm Patch -) 14 mg TD DAILY [facility] Last Admin: 12/13/16 10:00 Dose: Not Given Nystatin (Nystop Powder -) 1 applic TP TID [facility] Last Admin: 12/14/16 06:39 Dose: 1 applic Ondansetron HCl (Zofran Injection) 4 mg IVPUSH Q6H PRN PRN Reason: NAUSEA Warfarin Sodium (Coumadin -) 1 mg PO DAILY@1800 [facility] Warfarin Sodium (Coumadin -) 5 mg PO ONCE@1800 ONE Stop: 12/14/16 18:01 - Objective Vital Signs: Vital Signs Temperature 98.6 F 12/14/16 10:00 Pulse Rate 106 H 12/14/16 10:00 Respiratory Rate 18 12/14/16 10:00 Blood Pressure 144/54 12/14/16 10:00 O2 Sat by Pulse Oximetry (%) 98 12/13/16 20:31 Vital Signs Period Temp Pulse Resp BP Sys/Holt Pulse Ox Last 24 Hr 97.8 F-98.7 F 100-140 18-32 123-174/54-98 98 Intake & Output 12/13/16 12/14/16 12/14/16 23:59 07:59 15:59 Intake Total 500 700 Output Total 575 Balance -75 700 Intake: IV 350 550 Dextrose 5%-Normal Saline 350 550 +40 Meq KCl - 1,000 ml @ 100 mls/hr IV ASDIR [facility] Rx#:[id number] IVPB 150 150 Output: Drainage 200 Abdomen 25 colostomy 175 Urine 375 Void 375 Other: Voiding Method Bedpan Bedpan # Unmeasured Voids Void 3 2 Constitutional: Yes: No Distress, Calm, Obese HENT: Yes: Atraumatic, Normocephalic, Other (NGT clamped - removed at bedside) Cardiovascular: Yes: Tachycardia (slight). No: Pulse Irregular Respiratory: Yes: Regular, CTA Bilaterally, Diminished (at bases), On Nasal O2 Gastrointestinal: Yes: Soft, Abdomen, Obese, Hypoactive Bowel Sounds, Tenderness (LUQ without R/G), Other (colostomy pink, patent, productive of liquid brown stool, mild edema of stoma) Genitourinary: No: [place] Present, Incontinence Integumentary: Yes: Incision (midline open wound - see below). No: Jaundice Wound/Incision: Yes: [place] Intact (at umbilicus), Dressing Dry and Intact, Dressing Removed (and changed - midline above and below umbilicus with saline- dampened roll gauze), Unapproximated Neurological: Yes: Alert, Oriented Labs: CBC, BMP 12/14/16 05:10 12/14/16 05:10 CMP Sodium 142 mmol/L (136-145) 12/14/16 05:10 Potassium 3.5 mmol/L (3.5-5.1) 12/14/16 05:10 Chloride 104 mmol/L (98-107) 12/14/16 05:10 Carbon Dioxide 31 mmol/L (21-32) 12/14/16 05:10 Anion Gap 7 (8-16) L 12/14/16 05:10 BUN 6 mg/dL (7-18) L D 12/14/16 05:10 Creatinine 0.2 mg/dL (0.55-1.02) L 12/14/16 05:10 Creat Clearance w eGFR > 60 (>60) 12/14/16 05:10 POC Glucometer 100 UNITS (()) 12/10/16 12:26 Random Glucose 141 mg/dL (74-106) H D 12/14/16 05:10 Lactic Acid 1.0 mmol/L (0.4-2.0) 12/10/16 22:55 Calcium 7.3 mg/dL (8.5-10.1) L 12/14/16 05:10 Phosphorus 1.6 mg/dL (2.5-4.9) L 12/14/16 05:10 Magnesium 1.8 mg/dL (1.8-2.4) 12/14/16 05:10 Total Bilirubin 0.4 mg/dL (0.2-1.0) 12/14/16 05:10 Direct Bilirubin < 0.1 mg/dL (0.0-0.2) 12/11/16 05:00 AST 21 U/L (15-37) D 12/14/16 05:10 ALT 9 U/L (12-78) L 12/14/16 05:10 Alkaline Phosphatase 125 U/L (45-117) H D 12/14/16 05:10 Total Protein 4.0 g/dl (6.4-8.2) L 12/14/16 05:10 Albumin 1.3 g/dl (3.4-5.0) L 12/14/16 05:10 Lipase 21 U/L (22-51) L 12/08/16 11:50 no INR today - ....Imaging Chest X-ray: Report Reviewed (similar to yesterday), Image Reviewed Problem List - Problems (1) Perforated sigmoid colon Assessment/Plan: POD4 s/p sigmoid resection with colostomy (Dwaine's procedure) for perforated sigmoid colon, possibly secondary to C. diff megacolon on nasal cannula O2, using incentive spirometer NG removed start ice chips/sips, clears for dinner if no nausea voiding without Escobar needs to get OOB to chair and use commode will have PT start seeing pt pain controlled continue Zosyn, Flagyl - ID on board repleting lytes colostomy with liquid stool output drain with minimal serous fluid midline wound dressing changed - open and clean demonstrated dressings for await pathology Code(s): K63.1 - PERFORATION OF INTESTINE (NONTRAUMATIC) (2) LLQ pain Code(s): R10.32 - LEFT LOWER QUADRANT PAIN (3) Dilatation of colon Assessment/Plan: etiology still unclear - had inflamed segment of sigmoid with perforation at necrotic patch but no significant mass or any purulence could have been C diff related after Augmentin 2 wks ago, but no longer having diarrhea C diff results noted on contact precautions continuing Flagyl await path from surgery Code(s): K59.39 - OTHER MEGACOLON (4) H/O: CVA (cerebrovascular accident) Assessment/Plan: no residual on coumadin at home resume starting tonight follow INR Code(s): Z86.73 - PRSNL HX OF TIA (TIA), AND CEREB INFRC W/O RESID DEFICITS (5) Hypertension Assessment/Plan: carvedilol reordered ok to resume amlodipine when indicated Code(s): I10 - ESSENTIAL (PRIMARY) HYPERTENSION Qualifiers: Hypertension type: essential hypertension Qualified Code(s): I10 - Essential (primary) hypertension; I10 - Essential (primary) hypertension; I10 - Essential (primary) hypertension (6) Diabetes mellitus type 2, noninsulin dependent Assessment/Plan: FS with SSI will eventually resume metformin when tolerating diet Code(s): E11.9 - TYPE 2 DIABETES MELLITUS WITHOUT COMPLICATIONS (7) Cancer of left breast Assessment/Plan: has been on Arimidex per family and pt, Dr. Pete does not take her current insurance - they are planning to change oncologists Code(s): C50.912 - MALIGNANT NEOPLASM OF UNSPECIFIED SITE OF LEFT FEMALE BREAST Qualifiers: Breast location: upper outer quadrant of breast Estrogen receptor status: positive Patient sex: female Qualified Code(s): C50.412 - Malignant neoplasm of upper-outer quadrant of left female breast; C50.412 - Malignant neoplasm of upper-outer quadrant of left female breast; C50.412 - Malignant neoplasm of upper-outer quadrant of left female breast; C50.412 - Malignant neoplasm of upper-outer quadrant of left female breast; Z17.0 - Estrogen receptor positive status [ER+]; Z17.0 - Estrogen receptor positive status [ER+] (8) COPD without exacerbation Assessment/Plan: nebs as indicated and prn IS and encourage coughing/expectoration defer to primary team Code(s): J44.9 - CHRONIC OBSTRUCTIVE PULMONARY DISEASE, UNSPECIFIED Assessment/Plan This patient is critically ill. Time spent reviewing chart, examining patient, talking with providers and/or family and documentation is 45 minutes
[2016-12-14] MEDS: CARVEDILOL 6.25 MG TABLET (FP) PO SCH ×2 (13:53→21:57)
[2016-12-14] MEDS ORDERED: WARFARIN NA 5 MG TABLET (UD) PO ONE (18:00)
[2016-12-14] MEDS ORDERED: WARFARIN NA 1 MG TABLET (FP) PO SCH (18:00)
[2016-12-15] MEDS: PIPERACILLIN/TAZOB 4.5 GM 100 ML IVPB SCH ×3 (01:28→17:49)
[2016-12-15] MEDS: METRONIDAZOLE 500 MG PREMIXED 100 ML IVPB SCH (03:24)
[2016-12-15 05:57] LABS: MCH 30.8 pg (25.7-33.7); MEAN CELL VOLUME 93.3 fl (80-96); MEAN PLT VOLUME 8.5 fl (7.5-11.1); PLATELET COUNT 217 K/MM3 (134-434); RDW 14.2 % (11.6-15.6); WHITE BLOOD COUNT 9.1 K/mm3 (4.0-10.0)
[2016-12-15] MEDS: HEPARIN NA (PORCINE) 5,000 UNITS/ML 1ML VIAL SQ SCH ×3 (06:10→21:39)
[2016-12-15 06:11] LABS: INR 1.54 (0.82-1.09); PROTHROMBIN TIME (PATIENT) 17.4 SEC (9.98-11.88)
[2016-12-15] MEDS: INSULIN SLIDING SCALE (NOVOLOG) 1 VIAL SQ SCH ×4 (06:13→22:00)
[2016-12-15] MEDS: NYSTATIN POWDER 100,000 UNITS/GM - 15 GM TOPICAL POWDER TP SCH ×3 (06:13→21:40)
[2016-12-15 06:36] LABS: ALBUMIN 1.3 g/dl (3.4-5.0); ANION GAP 7 (8-16); BILIRUBIN,TOTAL 0.3 mg/dL (0.2-1.0); CALCIUM 7.3 mg/dL (8.5-10.1); CO2 33 mmol/L (21-32); CREATININE 0.2 mg/dL (0.55-1.02); GLUCOSE,RANDOM 103 mg/dL (74-106); MAGNESIUM 1.7 mg/dL (1.8-2.4); PHOSPHOROUS 2.1 mg/dL (2.5-4.9); SGOT/AST 33 U/L (15-37); SGPT/ALT 12 U/L (12-78)
[2016-12-15 06:37] LABS: ALK PHOS 127 U/L (45-117)
--- NOTE | 2016-12-15 07:28 | PN ---
Progress Note, Physician Chief Complaint: ID Zosyn and metronidazole day 5 post op - Current Medication List Current Medications: Active Medications Albuterol Sulfate (Ventolin Hfa Inhaler -) 2 puff IH Q4H PRN PRN Reason: SHORT OF BREATH/WHEEZING Albuterol/Ipratropium (Duoneb -) 1 amp NEB Q6H PRN PRN Reason: SHORTNESS OF BREATH Last Admin: 12/14/16 02:36 Dose: 1 amp Carvedilol (Coreg -) 6.25 mg PO BID [facility] Last Admin: 12/14/16 21:57 Dose: 6.25 mg Heparin Sodium (Porcine) (Heparin -) 5,000 unit SQ TID [facility] Last Admin: 12/15/16 06:10 Dose: 5,000 unit Metronidazole (Flagyl 500mg Premixed Ivpb -) 100 mls @ 100 mls/hr IVPB Q6H-IV [facility] Last Admin: 12/15/16 03:24 Dose: 100 mls/hr Famotidine/Sodium Chloride (Pepcid 20 Mg Premixed Ivpb -) 50 mls @ 100 mls/hr IVPB BID [facility] Last Admin: 12/14/16 21:57 Dose: 100 mls/hr Piperacillin Sod/Tazobactam Sod (Zosyn 4.5gm Ivpb (Pre-Docked)) 100 mls @ 200 mls/hr IVPB Q8H-IV [facility] PRN Reason: Protocol Last Admin: 12/15/16 01:28 Dose: 200 mls/hr Dextrose/Sodium Chloride (Dextrose 5%-Normal Saline+40 Meq Kcl -) 1,000 mls @ 50 mls/hr IV ASDIR [facility] Last Admin: 12/14/16 11:00 Dose: 50 mls/hr Insulin Aspart (Novolog Vial Sliding Scale -) 1 vial SQ ACHS [facility] PRN Reason: Protocol Last Admin: 12/15/16 06:13 Dose: Not Given Morphine Sulfate (Morphine Injection -) 4 mg IVPUSH Q3H PRN PRN Reason: PAIN Last Admin: 12/14/16 15:53 Dose: 4 mg Nicotine (Nicoderm Patch -) 14 mg TD DAILY [facility] Last Admin: 12/14/16 12:31 Dose: Not Given Nystatin (Nystop Powder -) 1 applic TP TID [facility] Last Admin: 12/15/16 06:13 Dose: 1 applic Ondansetron HCl (Zofran Injection) 4 mg IVPUSH Q6H PRN PRN Reason: NAUSEA Warfarin Sodium (Coumadin -) 1 mg PO DAILY@1800 [facility] Last Admin: 12/14/16 17:30 Dose: 1 mg - Objective Vital Signs: Vital Signs Temperature 98.4 F 12/15/16 06:00 Pulse Rate 100 H 12/15/16 06:00 Respiratory Rate 22 12/15/16 06:00 Blood Pressure 150/56 12/15/16 06:00 O2 Sat by Pulse Oximetry (%) 97 12/14/16 22:00 Constitutional: Yes: Well Nourished, No Distress Neck: Yes: WNL, Supple Cardiovascular: Yes: Regular Rate and Rhythm, S1, S2 Respiratory: Yes: WNL, Regular, CTA Bilaterally Gastrointestinal: Yes: Soft Labs: CBC, BMP 12/15/16 05:00 12/15/16 05:00 INR, PTT INR 1.54 (0.82-1.09) H 12/15/16 05:00 Problem List - Problems (1) Diabetes mellitus type 2, noninsulin dependent Code(s): E11.9 - TYPE 2 DIABETES MELLITUS WITHOUT COMPLICATIONS (2) Perforated sigmoid colon Code(s): K63.1 - PERFORATION OF INTESTINE (NONTRAUMATIC) (3) Cancer of left breast Code(s): C50.912 - MALIGNANT NEOPLASM OF UNSPECIFIED SITE OF LEFT FEMALE BREAST Qualifiers: Breast location: upper outer quadrant of breast Estrogen receptor status: positive Patient sex: female Qualified Code(s): C50.412 - Malignant neoplasm of upper-outer quadrant of left female breast; C50.412 - Malignant neoplasm of upper-outer quadrant of left female breast; C50.412 - Malignant neoplasm of upper-outer quadrant of left female breast; C50.412 - Malignant neoplasm of upper-outer quadrant of left female breast; Z17.0 - Estrogen receptor positive status [ER+]; Z17.0 - Estrogen receptor positive status [ER+] (4) Peritonitis Code(s): K65.9 - PERITONITIS, UNSPECIFIED (5) Clostridium difficile infection Code(s): B96.89 - OTH BACTERIAL AGENTS THE CA[facility]EASES [facility] Assessment/Plan Microbiology 12/11/16 15:45 Stool Clostridium difficile Antigen (KIRILL) - Final 12/11/16 15:45 Stool Clostridium difficile Toxin Assay - Final 12/10/16 19:30 Peritoneal Fluid Gram Stain - Final 12/10/16 19:30 Peritoneal Fluid Anaerobic Culture - Final NO GROWTH OF AEROBIC ORGANISMS AFTER 48 HOURS INCUBATION NO ANAEROBES WERE ISOLATED 12/10/16 11:47 Urine - Urine Clean Catch Urine Culture - Final NO GROWTH OBTAINED 12/08/16 17:23 Urine - Urine Clean Catch Urine Culture - Final Contaminated: Please Repeat 12/08/16 12:00 Blood - Peripheral Venous Blood Culture - Final NO GROWTH AFTER 5 DAYS INCUBATION 12/08/16 11:25 Blood - Peripheral Venous Blood Culture - Final NO GROWTH AFTER 5 DAYS INCUBATION Laboratory Tests 12/15/16 12/15/16 05:00 05:00 WBC 9.1 Hgb 9.4 L Hct 28.4 L Plt Count 217 BUN 6 L Creatinine 0.2 L Creat Clearance w eGFR > 60 Assessment Perforated Colon peritonitis. Culture neg. ? OF predisoposing C diff infection toxic megacolon vs colonization C diff given recent antibiotics Plan Continue Zosyn few more days and switch flagyl to oral Alexander GOMEZ
[2016-12-15] MEDS: ALBUTEROL SO4 2.5/IPRATROPIUM 0.5 INH SOL 3 ML VIAL.NEB. NEB PRN ×3 (07:43→17:30)
[2016-12-15] MEDS: FAMOTIDINE 20 MG/50 ML IVPB 50 ML IVPB SCH ×2 (10:00→21:39)
[2016-12-15] MEDS: NICOTINE 14 MG/24 HOURS TOPICAL PATCH TD SCH (10:00)
[2016-12-15] MEDS: CARVEDILOL 6.25 MG TABLET (FP) PO SCH ×2 (10:00→21:39)
[2016-12-15] MEDS: D5-NS + 40 MEQ KCL - 1,000 ML IV SCH (12:02)
--- NOTE | 2016-12-15 14:02 | PN ---
Progress Note, Physician Chief Complaint: abdominal distention, LLQ pain History of Present Illness: POD5 s/p sigmoid resection with colostomy (Dwaine's procedure) for perforation of sigmoid, possibly secondary to C. diff megacolon pt seen and examined in bed has been OOB once yest; got up today with walker and nursing assist to amb short distance and sit in chair doing well, pain controlled with occasional meds UOP 600 + 2 unmeasured yest; 650 today, has been using bedpan NG out yesterday - nathaly clears so far, no nausea VALE drain with 70 out yesterday, 25 overnight colostomy with brown liquid stool, 350 overnight, 250 emptied just now - Current Medication List Current Medications: Active Medications Albuterol Sulfate (Ventolin Hfa Inhaler -) 2 puff IH Q4H PRN PRN Reason: SHORT OF BREATH/WHEEZING Albuterol/Ipratropium (Duoneb -) 1 amp NEB Q6H PRN PRN Reason: SHORTNESS OF BREATH Last Admin: 12/15/16 11:08 Dose: 1 amp Carvedilol (Coreg -) 6.25 mg PO BID [facility] Last Admin: 12/15/16 10:00 Dose: 6.25 mg Heparin Sodium (Porcine) (Heparin -) 5,000 unit SQ TID [facility] Last Admin: 12/15/16 06:10 Dose: 5,000 unit Famotidine/Sodium Chloride (Pepcid 20 Mg Premixed Ivpb -) 50 mls @ 100 mls/hr IVPB BID [facility] Last Admin: 12/15/16 10:00 Dose: 100 mls/hr Piperacillin Sod/Tazobactam Sod (Zosyn 4.5gm Ivpb (Pre-Docked)) 100 mls @ 200 mls/hr IVPB Q8H-IV [facility] PRN Reason: Protocol Last Admin: 12/15/16 10:01 Dose: 200 mls/hr Dextrose/Sodium Chloride (Dextrose 5%-Normal Saline+40 Meq Kcl -) 1,000 mls @ 50 mls/hr IV ASDIR [facility] Last Admin: 12/15/16 12:02 Dose: Not Given Insulin Aspart (Novolog Vial Sliding Scale -) 1 vial SQ ACHS [facility] PRN Reason: Protocol Last Admin: 12/15/16 12:01 Dose: 4 units Metronidazole (Flagyl -) 500 mg PO TID [facility] Morphine Sulfate (Morphine Injection -) 4 mg IVPUSH Q3H PRN PRN Reason: PAIN Last Admin: 12/14/16 15:53 Dose: 4 mg Nicotine (Nicoderm Patch -) 14 mg TD DAILY [facility] Last Admin: 12/15/16 10:00 Dose: Not Given Nystatin (Nystop Powder -) 1 applic TP TID [facility] Last Admin: 12/15/16 06:13 Dose: 1 applic Ondansetron HCl (Zofran Injection) 4 mg IVPUSH Q6H PRN PRN Reason: NAUSEA Warfarin Sodium (Coumadin -) 1 mg PO DAILY@1800 [facility] Last Admin: 12/14/16 17:30 Dose: 1 mg - Objective Vital Signs: Vital Signs Temperature 99.1 F 12/15/16 13:49 Pulse Rate 92 H 12/15/16 13:49 Respiratory Rate 24 12/15/16 13:49 Blood Pressure 102/88 12/15/16 13:49 O2 Sat by Pulse Oximetry (%) 95 12/15/16 09:32 Vital Signs Period Temp Pulse Resp BP Sys/Holt Pulse Ox Last 24 Hr 98.4 F-99.1 F 81-102 18-24 102-152/51-88 95-97 Intake & Output 12/14/16 12/15/16 12/15/16 23:59 07:59 15:59 Intake Total 1550 850 340 Output Total 670 725 800 Balance 880 125 -460 Weight 217 lb 9 oz Intake: IV 500 600 Dextrose 5%-Normal Saline 500 600 +40 Meq KCl - 1,000 ml @ 50 mls/hr IV ASDIR [facility] Rx #:[id number] IVPB 650 200 Oral 400 50 340 Output: Drainage 70 375 300 Abdomen 70 25 colostomy 350 300 Urine 600 350 500 Void 600 350 500 Other: Voiding Method Bedpan Bedpan # Unmeasured Voids Void 2 Bowel Movement No Weight Measurement Method Built in Bedscale Constitutional: Yes: No Distress, Calm, Obese Cardiovascular: Yes: Regular Rate and Rhythm, Tachycardia (slight) Respiratory: Yes: Regular, CTA Bilaterally (generally clear), Diminished (at bases), On Nasal O2 (was on mask for a bit this morning) Gastrointestinal: Yes: Soft, Abdomen, Obese, Tenderness (LUQ, no R/G, no sig incisional tenderness), Other (colostomy pink, patent, productive of liquid dark brown stool; drain with light serosang in bulb). No: Distention Genitourinary: No: Escobar Present (on bedpan - urine somewhat dark), Hematuria Extremities: Yes: Other (RUE more edematous than left). No: Cool, Cyanosis Edema: Yes Edema: LUE: 1+, RUE: 2+, LLE: 1+, RLE: 1+ Integumentary: Yes: Incision (midline). No: Rash Wound/Incision: Yes: [place] Intact (at umbilicus), Dressing Dry and Intact, Dressing Removed (and changed - wound clean, fat beginning to turn red/pink in spots, no sig granulation yet; repacked with saline-dampened Kerlix, covered with gauze, ABD), Unapproximated (midline) Neurological: Yes: Alert, Oriented, Unsteady Gait (slightly - moves well in bed and able to walk with walker and assist on standby) Labs: CBC, BMP 12/15/16 05:00 12/15/16 05:00 INR, PTT INR 1.54 (0.82-1.09) H 12/15/16 05:00 Problem List - Problems (1) Perforated sigmoid colon Assessment/Plan: POD5 s/p sigmoid resection with colostomy (Dwaine's procedure) for perforated sigmoid colon, possibly secondary to C. diff megacolon on nasal cannula O2 prn, using incentive spirometer tolerating clears - will advance to full liquids/diabetic OOB to chair, commode for urination, ambulate with assist as able will have PT start seeing pt pain controlled - will start PO meds prn repleting lytes continue antibiotics - few more days of Zosyn, will change Flagyl to po soon to complete 14 days total per ID midline wound dressing changed - open and clean colostomy functioning nurse demonstrated bag emptying for await pathology Code(s): K63.1 - PERFORATION OF INTESTINE (NONTRAUMATIC) (2) Dilatation of colon Assessment/Plan: etiology still unclear - had inflamed segment of sigmoid with perforation at necrotic patch but no significant mass or any purulence could have been C diff related after Augmentin 2 wks ago, but no longer having diarrhea C diff results noted on contact precautions continuing Flagyl await path from surgery Code(s): K59.39 - OTHER MEGACOLON (3) H/O: CVA (cerebrovascular accident) Assessment/Plan: INR coming up coumadin as at home Code(s): Z86.73 - PRSNL HX OF TIA (TIA), AND CEREB INFRC W/O RESID DEFICITS (4) Hypertension Assessment/Plan: carvedilol reordered ok to resume amlodipine when indicated Code(s): I10 - ESSENTIAL (PRIMARY) HYPERTENSION Qualifiers: Hypertension type: essential hypertension Qualified Code(s): I10 - Essential (primary) hypertension; I10 - Essential (primary) hypertension; I10 - Essential (primary) hypertension (5) Diabetes mellitus type 2, noninsulin dependent Assessment/Plan: FS with SSI will eventually resume metformin when tolerating diet Code(s): E11.9 - TYPE 2 DIABETES MELLITUS WITHOUT COMPLICATIONS (6) Cancer of left breast Assessment/Plan: has been on Arimidex per family and pt, Dr. Pete does not take her current insurance - they are planning to change oncologists Code(s): C50.912 - MALIGNANT NEOPLASM OF UNSPECIFIED SITE OF LEFT FEMALE BREAST Qualifiers: Breast location: upper outer quadrant of breast Estrogen receptor status: positive Patient sex: female Qualified Code(s): C50.412 - Malignant neoplasm of upper-outer quadrant of left female breast; C50.412 - Malignant neoplasm of upper-outer quadrant of left female breast; C50.412 - Malignant neoplasm of upper-outer quadrant of left female breast; C50.412 - Malignant neoplasm of upper-outer quadrant of left female breast; Z17.0 - Estrogen receptor positive status [ER+]; Z17.0 - Estrogen receptor positive status [ER+] (7) COPD without exacerbation Assessment/Plan: nebs as indicated and prn IS and encourage coughing/expectoration defer to primary team Code(s): J44.9 - CHRONIC OBSTRUCTIVE PULMONARY DISEASE, UNSPECIFIED
[2016-12-15] MEDS: metroNIDAZOLE 250 MG TABLET PO SCH ×2 (14:08→21:39)
[2016-12-15] MEDS ORDERED: oxyCODONE HCL 5 MG TABLET PO PRN (14:28)
[2016-12-15] MEDS: D5-1/2NS+40 MEQ KCL - 1,000 ML IV SCH (15:07)
--- NOTE | 2016-12-15 15:11 | PN ---
Progress Note (short form) - Note Progress Note: Patient seen and examined in the Telemetry unit. Awake and alert. Able to be OOB for a short time. Reports pain is currently reasonably managed. Intake & Output 12/12/16 12/13/16 12/14/16 12/15/16 23:59 23:59 23:59 23:59 Intake Total 3487.5 1850 2250 1190 Output Total 2280 2983 049 8423 Balance 1207.5 72 1580 -335 Weight 216 lb 0.848 oz 217 lb 9 oz Last Vital Signs Temp Pulse Resp BP Pulse Ox 99.1 F 92 H 24 102/88 95 12/15/16 13:49 12/15/16 13:49 12/15/16 13:49 12/15/16 13:49 12/15/16 09:32 Active Medications Acetaminophen (Tylenol -) 650 mg PO Q6H PRN PRN Reason: FEVER OR PAIN Albuterol Sulfate (Ventolin Hfa Inhaler -) 2 puff IH Q4H PRN PRN Reason: SHORT OF BREATH/WHEEZING Albuterol/Ipratropium (Duoneb -) 1 amp NEB Q6H PRN PRN Reason: SHORTNESS OF BREATH Last Admin: 12/15/16 11:08 Dose: 1 amp Carvedilol (Coreg -) 6.25 mg PO BID [facility] Last Admin: 12/15/16 10:00 Dose: 6.25 mg Heparin Sodium (Porcine) (Heparin -) 5,000 unit SQ TID [facility] Last Admin: 12/15/16 14:08 Dose: 5,000 unit Famotidine/Sodium Chloride (Pepcid 20 Mg Premixed Ivpb -) 50 mls @ 100 mls/hr IVPB BID [facility] Last Admin: 12/15/16 10:00 Dose: 100 mls/hr Piperacillin Sod/Tazobactam Sod (Zosyn 4.5gm Ivpb (Pre-Docked)) 100 mls @ 200 mls/hr IVPB Q8H-IV [facility] PRN Reason: Protocol Last Admin: 12/15/16 10:01 Dose: 200 mls/hr Dextrose/Sodium Chloride (D5-1/2ns+40 Meq Kcl -) 1,000 mls @ 50 mls/hr IV ASDIR [facility] Last Admin: 12/15/16 15:07 Dose: 50 mls/hr Insulin Aspart (Novolog Vial Sliding Scale -) 1 vial SQ ACHS [facility] PRN Reason: Protocol Last Admin: 12/15/16 12:01 Dose: 4 units Magnesium Sulfate (Magnesium Sulfate) 2 gm IVPB ONCE ONE Stop: 12/15/16 15:31 Last Admin: 12/15/16 15:02 Dose: 2 gm Metronidazole (Flagyl -) 500 mg PO TID [facility] Last Admin: 12/15/16 14:08 Dose: 500 mg Morphine Sulfate (Morphine Injection -) 4 mg IVPUSH Q3H PRN PRN Reason: PAIN Stop: 12/16/16 08:00 Last Admin: 12/14/16 15:53 Dose: 4 mg Nicotine (Nicoderm Patch -) 14 mg TD DAILY [facility] Last Admin: 12/15/16 10:00 Dose: Not Given Nystatin (Nystop Powder -) 1 applic TP TID [facility] Last Admin: 12/15/16 14:08 Dose: 1 applic Ondansetron HCl (Zofran Injection) 4 mg IVPUSH Q6H PRN PRN Reason: NAUSEA Oxycodone HCl (Roxicodone -) 10 mg PO Q6H PRN PRN Reason: PAIN LEVEL 6-10 Warfarin Sodium (Coumadin -) 1 mg PO DAILY@1800 [facility] Last Admin: 12/14/16 17:30 Dose: 1 mg Gen: Awake and alert, NAD Heart: S1S2, regular Lung: Bibasilar rales / rhonchi Abd: soft, +ostomy pink, +serosanguinous drainage Ext: + edema Laboratory Results - last 24 hr 12/15/16 12/15/16 12/15/16 05:00 05:00 05:00 WBC 9.1 RBC 3.04 L Hgb 9.4 L Hct 28.4 L MCV 93.3 MCH 30.8 MCHC 33.0 RDW 14.2 Plt Count 217 MPV 8.5 PT with INR 17.40 H INR 1.54 H Sodium 144 Potassium 3.1 L Chloride 104 Carbon Dioxide 33 H Anion Gap 7 L BUN 6 L Creatinine 0.2 L Creat Clearance w eGFR > 60 Random Glucose 103 D Calcium 7.3 L Phosphorus 2.1 L D Magnesium 1.7 L Total Bilirubin 0.3 D AST 33 D ALT 12 D Alkaline Phosphatase 127 H Total Protein 4.0 L Albumin 1.3 L ASSESSMENT AND PLAN: Perforated Sigmoid Colon Peritonitis s/p ex-lap/sigmoid resection/colostomy Sepsis COPD HTN Hyperlipidemia DM Smoker h/o CVA - PO per surgery - Follow lytes - Antibiotics per ID - O2 to maintain saturation - incentive spirometry - inhaled bronchodilators - Pain control - DVT prophylaxis - Incentive Spirometry Dr Cormier
[2016-12-15] MEDS ORDERED: MAGNESIUM SULF 50% (8.12 MEQ/2 ML-1 GM VIAL) IVPB ONE (15:30)
--- NOTE | 2016-12-15 15:49 | SURG ---
Surgery Flexographic Press Plate Setter Note Flexographic Press Plate Setter: Magan Pereira MD Date of Service: 12/10/16 Diagnosis: perforated colon Procedure: sigmoid colon resection; mobilization of splenic flexure; colostomy (Hartmans procedure). I was present for the entirety of the operative procedure. For further detail, please refer to operative report. Visit type - Case Type Case Type: ED Admission - Emergency Emergency Visit: Yes ED Registration Date: 12/08/16 Care time: The patient presented to the Emergency Department on the above date and was hospitalized for further evaluation of their emergent condition. - New patient This patient is new to me today: Yes Date on this admission: 12/10/16 - Critical Care Critical Care patient: No
[2016-12-15] MEDS ORDERED: POTASSIUM CHLORIDE TABS 20 MEQ TABLET.ER (FP) PO ONE (16:12)
[2016-12-15] MEDS ORDERED: POTASSIUM PHOSPHATE 15 MM in DEXTROSE 5%-WATER - 250 ML IVPB ONE (16:13)
--- NOTE | 2016-12-15 16:16 | PN ---
Progress Note, Physician History of Present Illness: Pt w/o F, C, cough, SOB, CP. palp, N, V. Pt with abd pain is improved. Pt is tolerating PO. Pt is sitting in the chair. - Current Medication List Current Medications: Active Medications Acetaminophen (Tylenol -) 650 mg PO Q6H PRN PRN Reason: FEVER OR PAIN Albuterol Sulfate (Ventolin Hfa Inhaler -) 2 puff IH Q4H PRN PRN Reason: SHORT OF BREATH/WHEEZING Albuterol/Ipratropium (Duoneb -) 1 amp NEB Q6H PRN PRN Reason: SHORTNESS OF BREATH Last Admin: 12/15/16 11:08 Dose: 1 amp Carvedilol (Coreg -) 6.25 mg PO BID [facility] Last Admin: 12/15/16 10:00 Dose: 6.25 mg Heparin Sodium (Porcine) (Heparin -) 5,000 unit SQ TID [facility] Last Admin: 12/15/16 14:08 Dose: 5,000 unit Famotidine/Sodium Chloride (Pepcid 20 Mg Premixed Ivpb -) 50 mls @ 100 mls/hr IVPB BID [facility] Last Admin: 12/15/16 10:00 Dose: 100 mls/hr Piperacillin Sod/Tazobactam Sod (Zosyn 4.5gm Ivpb (Pre-Docked)) 100 mls @ 200 mls/hr IVPB Q8H-IV [facility] PRN Reason: Protocol Last Admin: 12/15/16 10:01 Dose: 200 mls/hr Dextrose/Sodium Chloride (D5-1/2ns+40 Meq Kcl -) 1,000 mls @ 50 mls/hr IV ASDIR [facility] Last Admin: 12/15/16 15:07 Dose: 50 mls/hr Potassium Phosphate 15 mm/ (Dextrose) 255 mls @ 127.5 mls/hr IVPB ONCE ONE PRN Reason: 30 MM/4 HR Stop: 12/15/16 18:12 Insulin Aspart (Novolog Vial Sliding Scale -) 1 vial SQ ACHS [facility] PRN Reason: Protocol Last Admin: 12/15/16 12:01 Dose: 4 units Metronidazole (Flagyl -) 500 mg PO TID [facility] Last Admin: 12/15/16 14:08 Dose: 500 mg Morphine Sulfate (Morphine Injection -) 4 mg IVPUSH Q3H PRN PRN Reason: PAIN Stop: 12/16/16 08:00 Last Admin: 12/14/16 15:53 Dose: 4 mg Nicotine (Nicoderm Patch -) 14 mg TD DAILY [facility] Last Admin: 12/15/16 10:00 Dose: Not Given Nystatin (Nystop Powder -) 1 applic TP TID [facility] Last Admin: 12/15/16 14:08 Dose: 1 applic Ondansetron HCl (Zofran Injection) 4 mg IVPUSH Q6H PRN PRN Reason: NAUSEA Oxycodone HCl (Roxicodone -) 10 mg PO Q6H PRN PRN Reason: PAIN LEVEL 6-10 Potassium Chloride (K-Dur -) 40 meq PO ONCE ONE Stop: 12/15/16 16:13 Warfarin Sodium (Coumadin -) 6 mg PO DAILY@1800 [facility] - Objective Vital Signs: Vital Signs Temperature 99.1 F 12/15/16 14:00 Pulse Rate 92 H 12/15/16 14:00 Respiratory Rate 24 12/15/16 14:00 Blood Pressure 102/88 12/15/16 14:00 O2 Sat by Pulse Oximetry (%) 95 12/15/16 09:32 Constitutional: Yes: No Distress, Calm Cardiovascular: Yes: Regular Rate and Rhythm, S1, S2 Respiratory: Yes: Regular, CTA Bilaterally. No: Rales Gastrointestinal: Yes: Normal Bowel Sounds, Soft Edema: No Neurological: Yes: Alert, Oriented Labs: CBC, BMP 12/15/16 05:00 12/15/16 05:00 INR, PTT INR 1.54 (0.82-1.09) H 12/15/16 05:00 Problem List - Problems (1) Perforated sigmoid colon Code(s): K63.1 - PERFORATION OF INTESTINE (NONTRAUMATIC) (2) Colostomy in place Code(s): Z93.3 - COLOSTOMY STATUS (3) Dilatation of colon Code(s): K59.39 - OTHER MEGACOLON (4) LLQ pain Code(s): R10.32 - LEFT LOWER QUADRANT PAIN (5) Cancer of left breast Code(s): C50.912 - MALIGNANT NEOPLASM OF UNSPECIFIED SITE OF LEFT FEMALE BREAST Qualifiers: Breast location: upper outer quadrant of breast Estrogen receptor status: positive Patient sex: female Qualified Code(s): C50.412 - Malignant neoplasm of upper-outer quadrant of left female breast; C50.412 - Malignant neoplasm of upper-outer quadrant of left female breast; C50.412 - Malignant neoplasm of upper-outer quadrant of left female breast; C50.412 - Malignant neoplasm of upper-outer quadrant of left female breast; Z17.0 - Estrogen receptor positive status [ER+]; Z17.0 - Estrogen receptor positive status [ER+] (6) Diabetes mellitus type 2, noninsulin dependent Code(s): E11.9 - TYPE 2 DIABETES MELLITUS WITHOUT COMPLICATIONS (7) H/O: CVA (cerebrovascular accident) Code(s): Z86.73 - PRSNL HX OF TIA (TIA), AND CEREB INFRC W/O RESID DEFICITS (8) Supratherapeutic INR Code(s): R79.1 - ABNORMAL COAGULATION PROFILE (9) Hypertension Code(s): I10 - ESSENTIAL (PRIMARY) HYPERTENSION Qualifiers: Hypertension type: essential hypertension Qualified Code(s): I10 - Essential (primary) hypertension; I10 - Essential (primary) hypertension; I10 - Essential (primary) hypertension (10) COPD (chronic obstructive pulmonary disease) Code(s): J44.9 - CHRONIC OBSTRUCTIVE PULMONARY DISEASE, UNSPECIFIED (11) Hypomagnesemia Code(s): E83.42 - HYPOMAGNESEMIA (12) Hypophosphatemia Code(s): E83.39 - OTHER DISORDERS OF PHOSPHORUS METABOLISM (13) Hypoalbuminemia Code(s): E88.09 - OTH DISORDERS OF PLASMA-PROTEIN METABOLISM, NEC Assessment/Plan Pt is post op day #4. Pt is on IVF. Strictly I/O. NGT- removed. BGM with coverage for now. Pt was changed to PO Flagyl Monitor and replete electrolytes AM labs. Coumadin was started. Replete electrolytes Case was d/w pt's nurse.
[2016-12-15] MEDS ORDERED: WARFARIN NA 3 MG TABLET PO SCH (18:00)
[2016-12-16] MEDS: PIPERACILLIN/TAZOB 4.5 GM 100 ML IVPB SCH ×2 (02:40→09:29)
[2016-12-16 06:04] LABS: MCH 31.4 pg (25.7-33.7); MCHC 33.8 g/dl (32.0-36.0); MEAN CELL VOLUME 92.9 fl (80-96); MEAN PLT VOLUME 8.5 fl (7.5-11.1); PLATELET COUNT 204 K/MM3 (134-434); RDW 14.6 % (11.6-15.6); WHITE BLOOD COUNT 7.1 K/mm3 (4.0-10.0)
[2016-12-16 06:12] LABS: INR 2.31 (0.82-1.09); PROTHROMBIN TIME (PATIENT) 26.1 SEC (9.98-11.88)
[2016-12-16] MEDS: metroNIDAZOLE 250 MG TABLET PO SCH ×3 (06:21→21:22)
[2016-12-16] MEDS: NYSTATIN POWDER 100,000 UNITS/GM - 15 GM TOPICAL POWDER TP SCH ×3 (06:21→22:00)
[2016-12-16] MEDS: INSULIN SLIDING SCALE (NOVOLOG) 1 VIAL SQ SCH ×4 (06:21→21:29)
[2016-12-16] MEDS: HEPARIN NA (PORCINE) 5,000 UNITS/ML 1ML VIAL SQ SCH (06:21)
[2016-12-16] MEDS ORDERED: INSULIN (NOVOLOG) ASPART 100 UNITS/ML 10ML VIAL ONE (06:23)
[2016-12-16 06:33] LABS: ALBUMIN 1.4 g/dl (3.4-5.0); ANION GAP 8 (8-16); BILIRUBIN,TOTAL 0.3 mg/dL (0.2-1.0); CO2 33 mmol/L (21-32); CREATININE 0.3 mg/dL (0.55-1.02); GLUCOSE,RANDOM 148 mg/dL (74-106); MAGNESIUM 1.7 mg/dL (1.8-2.4); PHOSPHOROUS 3.1 mg/dL (2.5-4.9); SGOT/AST 32 U/L (15-37); SGPT/ALT 13 U/L (12-78); TOT PROT 4.1 g/dl (6.4-8.2)
[2016-12-16 06:34] LABS: ALK PHOS 114 U/L (45-117)
[2016-12-16] MEDS: FAMOTIDINE 20 MG/50 ML IVPB 50 ML IVPB SCH ×2 (09:29→21:23)
[2016-12-16] MEDS: CARVEDILOL 6.25 MG TABLET (FP) PO SCH ×2 (09:29→21:23)
[2016-12-16] MEDS: NICOTINE 14 MG/24 HOURS TOPICAL PATCH TD SCH (09:29)
--- NOTE | 2016-12-16 10:25 | PN ---
Progress Note, Physician History of Present Illness: Pt w/o F, C, cough, SOB, CP. palp, N, V. Pt with abd pain is improved. Pt is tolerating PO. Pt is sitting in the chair. - Current Medication List Current Medications: Active Medications Acetaminophen (Tylenol -) 650 mg PO Q6H PRN PRN Reason: FEVER OR PAIN Albuterol Sulfate (Ventolin Hfa Inhaler -) 2 puff IH Q4H PRN PRN Reason: SHORT OF BREATH/WHEEZING Albuterol/Ipratropium (Duoneb -) 1 amp NEB Q6H PRN PRN Reason: SHORTNESS OF BREATH Last Admin: 12/16/16 00:00 Dose: 1 amp Carvedilol (Coreg -) 6.25 mg PO BID [facility] Last Admin: 12/16/16 09:29 Dose: 6.25 mg Famotidine/Sodium Chloride (Pepcid 20 Mg Premixed Ivpb -) 50 mls @ 100 mls/hr IVPB BID [facility] Last Admin: 12/16/16 09:29 Dose: 100 mls/hr Piperacillin Sod/Tazobactam Sod (Zosyn 4.5gm Ivpb (Pre-Docked)) 100 mls @ 200 mls/hr IVPB Q8H-IV [facility] PRN Reason: Protocol Last Admin: 12/16/16 09:29 Dose: 200 mls/hr Dextrose/Sodium Chloride (D5-1/2ns+40 Meq Kcl -) 1,000 mls @ 50 mls/hr IV ASDIR [facility] Last Admin: 12/15/16 15:07 Dose: 50 mls/hr Insulin Aspart (Novolog Vial Sliding Scale -) 1 vial SQ ACHS [facility] PRN Reason: Protocol Last Admin: 12/16/16 06:21 Dose: 2 units Metronidazole (Flagyl -) 500 mg PO TID [facility] Last Admin: 12/16/16 06:21 Dose: 500 mg Nicotine (Nicoderm Patch -) 14 mg TD DAILY [facility] Last Admin: 12/16/16 09:29 Dose: 14 mg Nystatin (Nystop Powder -) 1 applic TP TID [facility] Last Admin: 12/16/16 06:21 Dose: 1 applic Ondansetron HCl (Zofran Injection) 4 mg IVPUSH Q6H PRN PRN Reason: NAUSEA Oxycodone HCl (Roxicodone -) 10 mg PO Q6H PRN PRN Reason: PAIN LEVEL 6-10 Warfarin Sodium (Coumadin -) 4 mg PO DAILY@1800 [facility] - Objective Vital Signs: Vital Signs Temperature 98.4 F 12/16/16 06:00 Pulse Rate 92 H 12/16/16 09:51 Respiratory Rate 20 12/16/16 06:00 Blood Pressure 163/72 12/16/16 06:00 O2 Sat by Pulse Oximetry (%) 96 12/16/16 09:51 Constitutional: Yes: No Distress, Calm Cardiovascular: Yes: Regular Rate and Rhythm, S1, S2 Respiratory: Yes: Regular, CTA Bilaterally. No: Rales Gastrointestinal: Yes: Normal Bowel Sounds, Soft. No: Tenderness Edema: No Neurological: Yes: Alert, Oriented Labs: CBC, BMP 12/16/16 05:00 12/16/16 05:00 INR, PTT INR 2.31 (0.82-1.09) H D 12/16/16 05:00 Problem List - Problems (1) Perforated sigmoid colon Code(s): K63.1 - PERFORATION OF INTESTINE (NONTRAUMATIC) (2) Colostomy in place Code(s): Z93.3 - COLOSTOMY STATUS (3) Dilatation of colon Code(s): K59.39 - OTHER MEGACOLON (4) LLQ pain Code(s): R10.32 - LEFT LOWER QUADRANT PAIN (5) Cancer of left breast Code(s): C50.912 - MALIGNANT NEOPLASM OF UNSPECIFIED SITE OF LEFT FEMALE BREAST Qualifiers: Breast location: upper outer quadrant of breast Estrogen receptor status: positive Patient sex: female Qualified Code(s): C50.412 - Malignant neoplasm of upper-outer quadrant of left female breast; C50.412 - Malignant neoplasm of upper-outer quadrant of left female breast; C50.412 - Malignant neoplasm of upper-outer quadrant of left female breast; C50.412 - Malignant neoplasm of upper-outer quadrant of left female breast; Z17.0 - Estrogen receptor positive status [ER+]; Z17.0 - Estrogen receptor positive status [ER+] (6) Diabetes mellitus type 2, noninsulin dependent Code(s): E11.9 - TYPE 2 DIABETES MELLITUS WITHOUT COMPLICATIONS (7) H/O: CVA (cerebrovascular accident) Code(s): Z86.73 - PRSNL HX OF TIA (TIA), AND CEREB INFRC W/O RESID DEFICITS (8) Supratherapeutic INR Code(s): R79.1 - ABNORMAL COAGULATION PROFILE (9) Hypertension Code(s): I10 - ESSENTIAL (PRIMARY) HYPERTENSION Qualifiers: Hypertension type: essential hypertension Qualified Code(s): I10 - Essential (primary) hypertension; I10 - Essential (primary) hypertension; I10 - Essential (primary) hypertension (10) COPD (chronic obstructive pulmonary disease) Code(s): J44.9 - CHRONIC OBSTRUCTIVE PULMONARY DISEASE, UNSPECIFIED (11) Hypomagnesemia Code(s): E83.42 - HYPOMAGNESEMIA (12) Hypophosphatemia Code(s): E83.39 - OTHER DISORDERS OF PHOSPHORUS METABOLISM (13) Hypoalbuminemia Code(s): E88.09 - OTH DISORDERS OF PLASMA-PROTEIN METABOLISM, NEC Assessment/Plan . Pt is on tolerating PO intake. BGM with coverage for now. Pt was changed to PO Flagyl Monitor and replete electrolytes; replete Mg. AM labs. Coumadin was started. Case was d/w pt's nurse.
[2016-12-16] MEDS ORDERED: HEMOQUE TEST 1 EACH EACH ONE ×2 (11:23→16:44)
[2016-12-16] MEDS ORDERED: MAGNESIUM SULF 50% (8.12 MEQ/2 ML-1 GM VIAL) IVPB ONE (11:30)
[2016-12-16] MEDS: D5-1/2NS+40 MEQ KCL - 1,000 ML IV SCH (13:32)
--- NOTE | 2016-12-16 14:46 | PN ---
Progress Note, Physician Chief Complaint: abdominal distention, LLQ pain History of Present Illness: POD6 s/p sigmoid resection with colostomy (Dwaine's procedure) for perforation of sigmoid, possibly secondary to C. diff megacolon pt seen and examined in chair and later in bed no overnight events, no specific complaints doing well, pain controlled with minimal oral meds UOP 1550 yest, 150+ today nathaly full liquids, no nausea VALE drain with 25 out yesterday, 25 recorded since, bulb with light brownish fluid colostomy with brown liquid stool, 650 yesterday, 100+ today - Current Medication List Current Medications: Active Medications Acetaminophen (Tylenol -) 650 mg PO Q6H PRN PRN Reason: FEVER OR PAIN Albuterol Sulfate (Ventolin Hfa Inhaler -) 2 puff IH Q4H PRN PRN Reason: SHORT OF BREATH/WHEEZING Albuterol/Ipratropium (Duoneb -) 1 amp NEB Q6H PRN PRN Reason: SHORTNESS OF BREATH Last Admin: 12/16/16 00:00 Dose: 1 amp Carvedilol (Coreg -) 6.25 mg PO BID [facility] Last Admin: 12/16/16 09:29 Dose: 6.25 mg Famotidine/Sodium Chloride (Pepcid 20 Mg Premixed Ivpb -) 50 mls @ 100 mls/hr IVPB BID [facility] Last Admin: 12/16/16 09:29 Dose: 100 mls/hr Piperacillin Sod/Tazobactam Sod (Zosyn 4.5gm Ivpb (Pre-Docked)) 100 mls @ 200 mls/hr IVPB Q8H-IV [facility] PRN Reason: Protocol Last Admin: 12/16/16 09:29 Dose: 200 mls/hr Dextrose/Sodium Chloride (D5-1/2ns+40 Meq Kcl -) 1,000 mls @ 50 mls/hr IV ASDIR [facility] Last Admin: 12/16/16 13:32 Dose: 50 mls/hr Insulin Aspart (Novolog Vial Sliding Scale -) 1 vial SQ ACHS [facility] PRN Reason: Protocol Last Admin: 12/16/16 12:46 Dose: Not Given Metronidazole (Flagyl -) 500 mg PO TID [facility] Last Admin: 12/16/16 13:24 Dose: 500 mg Nicotine (Nicoderm Patch -) 14 mg TD DAILY [facility] Last Admin: 10/17/17 09:29 Dose: 14 mg Nystatin (Nystop Powder -) 1 applic TP TID [facility] Last Admin: 12/16/16 13:24 Dose: 1 applic Ondansetron HCl (Zofran Injection) 4 mg IVPUSH Q6H PRN PRN Reason: NAUSEA Oxycodone HCl (Roxicodone -) 10 mg PO Q6H PRN PRN Reason: PAIN LEVEL 6-10 Warfarin Sodium (Coumadin -) 4 mg PO DAILY@1800 [facility] - Objective Vital Signs: Vital Signs Temperature 98.3 F 12/16/16 13:37 Pulse Rate 92 H 12/16/16 13:37 Respiratory Rate 21 12/16/16 13:37 Blood Pressure 153/66 12/16/16 13:37 O2 Sat by Pulse Oximetry (%) 96 12/16/16 09:51 Vital Signs Period Temp Pulse Resp BP Sys/Holt Pulse Ox Last 24 Hr 98.3 F-98.4 F 86-99 20-92 131-163/56-72 95-96 Intake & Output 12/15/16 12/16/16 12/16/16 23:59 07:59 15:59 Intake Total 2050 600 360 Output Total 500 275 250 Balance 1550 325 110 Weight 216 lb 6 oz Intake: IV 850 300 Dextrose 5%-Normal Saline 100 +40 Meq KCl - 1,000 ml @ 50 mls/hr IV [facility] Rx #:[id number] D5-1/2Ns+40 Meq KCl - 1, 750 300 000 ml @ 50 mls/hr IV ASDIR [facility] Rx#:[id number] IVPB 550 100 Oral 650 200 360 Output: Drainage 125 250 Abdomen 25 50 colostomy 100 200 Urine 500 150 Void 500 150 Other: Voiding Method Bedpan Bedpan # Unmeasured Voids Void 2 550 Weight Measurement Method Built in [facility] Constitutional: Yes: No Distress, Calm, Obese Cardiovascular: Yes: Regular Rate and Rhythm, Murmur Respiratory: Yes: Regular, Diminished (at bases), On Nasal O2, Wheezes (faint expiratory bilaterally) Gastrointestinal: Yes: Normal Bowel Sounds, Soft, Abdomen, Obese, Other ( colostomy with liquid dark brown stool). No: Tenderness Edema: LUE: 1+, RUE: 1+ Integumentary: Yes: Incision (midline). No: Rash Wound/Incision: Yes: Maria Eugenia Intact (at umbilicus), Dressing Removed (and packing changed by - re-covered with gauze, ABD pad, tape; drain dressing also changed for yellow staining on gauze), Unapproximated (midline) Neurological: Yes: Alert, Oriented Labs: CBC, BMP 12/16/16 05:00 12/16/16 05:00 INR, PTT INR 2.31 (0.82-1.09) H D 12/16/16 05:00 CMP Sodium 142 mmol/L (136-145) 12/16/16 05:00 Potassium 3.5 mmol/L (3.5-5.1) 12/16/16 05:00 Chloride 101 mmol/L (98-107) 12/16/16 05:00 Carbon Dioxide 33 mmol/L (21-32) H 12/16/16 05:00 Anion Gap 8 (8-16) 12/16/16 05:00 BUN 4 mg/dL (7-18) L D 12/16/16 05:00 Creatinine 0.3 mg/dL (0.55-1.02) L D 12/16/16 05:00 Creat Clearance w eGFR > 60 (>60) 12/16/16 05:00 POC Glucometer 195.31467 UNITS (()) 12/16/16 05:45 Random Glucose 148 mg/dL (74-106) H D 12/16/16 05:00 Lactic Acid 1.0 mmol/L (0.4-2.0) 12/10/16 22:55 Calcium 7.0 mg/dL (8.5-10.1) L 12/16/16 05:00 Phosphorus 3.1 mg/dL (2.5-4.9) D 12/16/16 05:00 Magnesium 1.7 mg/dL (1.8-2.4) L 12/16/16 05:00 Total Bilirubin 0.3 mg/dL (0.2-1.0) 12/16/16 05:00 Direct Bilirubin < 0.1 mg/dL (0.0-0.2) 12/11/16 05:00 AST 32 U/L (15-37) 12/16/16 05:00 ALT 13 U/L (12-78) 12/16/16 05:00 Alkaline Phosphatase 114 U/L (45-117) 12/16/16 05:00 Total Protein 4.1 g/dl (6.4-8.2) L 12/16/16 05:00 Albumin 1.4 g/dl (3.4-5.0) L 12/16/16 05:00 Lipase 21 U/L (22-51) L 12/08/16 11:50 INR therapeutic still alkalotic Problem List - Problems (1) Perforated sigmoid colon Assessment/Plan: POD6 s/p sigmoid resection with colostomy (Dwaine's procedure) for perforated sigmoid colon, possibly secondary to C. diff megacolon on nasal cannula O2 prn, using incentive spirometer tolerating fulls - will advance to diabetic low Na diet OOB to chair, commode for urination, ambulate with assist as able PT seeing patient today pain controlled - will start PO meds prn repleting lytes continue antibiotics - few more days of Zosyn; Flagyl changed to po - to complete 14 days total per ID midline wound dressing changed by with instruction - clean, beginning to granulate in areas colostomy functioning will change ostomy appliance with tomorrow pathology still pending discharge planning - will need VNS for new ostomy care, daily midline wound care /packing changes, family teaching, possibly drain care/emptying Code(s): K63.1 - PERFORATION OF INTESTINE (NONTRAUMATIC) (2) Dilatation of colon Assessment/Plan: etiology still unclear - had inflamed segment of sigmoid with perforation at necrotic patch but no significant mass or any purulence could have been C diff related after Augmentin 2 wks ago, but no longer having diarrhea C diff results noted on contact precautions continuing Flagyl await path from surgery Code(s): K59.39 - OTHER MEGACOLON (3) H/O: CVA (cerebrovascular accident) Assessment/Plan: INR therapeutic already, coumadin dose lower tonight Code(s): Z86.73 - PRSNL HX OF TIA (TIA), AND CEREB INFRC W/O RESID DEFICITS (4) Hypertension Assessment/Plan: carvedilol reordered ok to resume amlodipine when indicated Code(s): I10 - ESSENTIAL (PRIMARY) HYPERTENSION Qualifiers: Hypertension type: essential hypertension Qualified Code(s): I10 - Essential (primary) hypertension; I10 - Essential (primary) hypertension; I10 - Essential (primary) hypertension (5) Diabetes mellitus type 2, noninsulin dependent Assessment/Plan: FS with SSI will eventually resume metformin when tolerating diet Code(s): E11.9 - TYPE 2 DIABETES MELLITUS WITHOUT COMPLICATIONS (6) Cancer of left breast Assessment/Plan: has been on Arimidex - ok to resume per family and pt, Dr. Pete does not take her current insurance - they are planning to change oncologists Code(s): C50.912 - MALIGNANT NEOPLASM OF UNSPECIFIED SITE OF LEFT FEMALE BREAST Qualifiers: Breast location: upper outer quadrant of breast Estrogen receptor status: positive Patient sex: female Qualified Code(s): C50.412 - Malignant neoplasm of upper-outer quadrant of left female breast; C50.412 - Malignant neoplasm of upper-outer quadrant of left female breast; C50.412 - Malignant neoplasm of upper-outer quadrant of left female breast; C50.412 - Malignant neoplasm of upper-outer quadrant of left female breast; Z17.0 - Estrogen receptor positive status [ER+]; Z17.0 - Estrogen receptor positive status [ER+] (7) COPD without exacerbation Assessment/Plan: nebs as indicated and prn IS and encourage coughing/expectoration some wheezing today defer to primary team Code(s): J44.9 - CHRONIC OBSTRUCTIVE PULMONARY DISEASE, UNSPECIFIED Assessment/Plan This patient is critically ill. Time spent reviewing chart, examining patient, talking with providers and/or family and documentation is 70 minutes
--- NOTE | 2016-12-16 16:20 | PN ---
Progress Note (short form) - Note Progress Note: Patient seen and examined in the Telemetry unit. Awake and alert. No abdominal pain. No CP or SOB. No acute events overnight. Intake & Output 12/13/16 12/14/16 12/15/16 12/16/16 23:59 23:59 23:59 23:59 Intake Total 1850 2250 3240 960 Output Total 0350 600 9989 525 Balance 72 1580 1015 435 Weight 217 lb 9 oz 216 lb 6 oz Last Vital Signs Temp Pulse Resp BP Pulse Ox 98.3 F 92 H 21 153/66 96 12/16/16 13:37 12/16/16 13:37 12/16/16 13:37 12/16/16 13:37 12/16/16 09:51 Active Medications Acetaminophen (Tylenol -) 650 mg PO Q6H PRN PRN Reason: FEVER OR PAIN Albuterol Sulfate (Ventolin Hfa Inhaler -) 2 puff IH Q4H PRN PRN Reason: SHORT OF BREATH/WHEEZING Albuterol/Ipratropium (Duoneb -) 1 amp NEB Q6H PRN PRN Reason: SHORTNESS OF BREATH Last Admin: 12/16/16 00:00 Dose: 1 amp Carvedilol (Coreg -) 6.25 mg PO BID [facility] Last Admin: 12/16/16 09:29 Dose: 6.25 mg Famotidine/Sodium Chloride (Pepcid 20 Mg Premixed Ivpb -) 50 mls @ 100 mls/hr IVPB BID [facility] Last Admin: 12/16/16 09:29 Dose: 100 mls/hr Piperacillin Sod/Tazobactam Sod (Zosyn 4.5gm Ivpb (Pre-Docked)) 100 mls @ 200 mls/hr IVPB Q8H-IV [facility] PRN Reason: Protocol Last Admin: 12/16/16 09:29 Dose: 200 mls/hr Dextrose/Sodium Chloride (D5-1/2ns+40 Meq Kcl -) 1,000 mls @ 50 mls/hr IV [facility] Last Admin: 12/16/16 13:32 Dose: 50 mls/hr Insulin Aspart (Novolog Vial Sliding Scale -) 1 vial SQ ACHS [facility] PRN Reason: Protocol Last Admin: 12/16/16 12:46 Dose: Not Given Metronidazole (Flagyl -) 500 mg PO TID [facility] Last Admin: 12/16/16 13:24 Dose: 500 mg Nicotine (Nicoderm Patch -) 14 mg TD DAILY [facility] Last Admin: 12/16/16 09:29 Dose: 14 mg Nystatin (Nystop Powder -) 1 applic TP TID [facility] Last Admin: 12/16/16 13:24 Dose: 1 applic Ondansetron HCl (Zofran Injection) 4 mg IVPUSH Q6H PRN PRN Reason: NAUSEA Oxycodone HCl (Roxicodone -) 10 mg PO Q6H PRN PRN Reason: PAIN LEVEL 6-10 Warfarin Sodium (Coumadin -) 4 mg PO DAILY@1800 [facility] Gen: Awake and alert, NAD Heart: S1S2, regular Lung: Bibasilar rales / rhonchi Abd: soft, +ostomy pink, +serosanguinous drainage Ext: + edema Laboratory Results - last 24 hr 12/12/16 12/12/16 12/12/16 14:46 17:22 21:17 WBC RBC Hgb Hct MCV MCH MCHC RDW Plt Count MPV PT with INR INR Sodium Potassium Chloride Carbon Dioxide Anion Gap BUN Creatinine Creat Clearance w eGFR POC Glucometer 129.86635 109.62711 124.84382 Random Glucose Calcium Phosphorus Magnesium Total Bilirubin AST ALT Alkaline Phosphatase Total Protein Albumin 12/13/16 12/13/16 12/13/16 05:45 11:58 19:44 WBC RBC Hgb Hct MCV MCH MCHC RDW Plt Count MPV PT with INR INR Sodium Potassium Chloride Carbon Dioxide Anion Gap BUN Creatinine Creat Clearance w eGFR POC Glucometer 111.05793 129.53258 149.39651 Random Glucose Calcium Phosphorus Magnesium Total Bilirubin AST ALT Alkaline Phosphatase Total Protein Albumin 12/13/16 12/14/16 12/14/16 21:23 06:44 11:18 WBC RBC Hgb Hct MCV MCH MCHC RDW Plt Count MPV PT with INR INR Sodium Potassium Chloride Carbon Dioxide Anion Gap BUN Creatinine Creat Clearance w eGFR POC Glucometer 150.45001 172.26740 159.15139 Random Glucose Calcium Phosphorus Magnesium Total Bilirubin AST ALT Alkaline Phosphatase Total Protein Albumin 12/14/16 12/14/16 12/15/16 17:59 22:35 05:35 WBC RBC Hgb Hct MCV MCH MCHC RDW Plt Count MPV PT with INR INR Sodium Potassium Chloride Carbon Dioxide Anion Gap BUN Creatinine Creat Clearance w eGFR POC Glucometer 155.00512 174.82416 107.42552 Random Glucose Calcium Phosphorus Magnesium Total Bilirubin AST ALT Alkaline Phosphatase Total Protein Albumin 12/15/16 12/15/16 12/15/16 11:59 17:31 21:58 WBC RBC Hgb Hct MCV MCH MCHC RDW Plt Count MPV PT with INR INR Sodium Potassium Chloride Carbon Dioxide Anion Gap BUN Creatinine Creat Clearance w eGFR POC Glucometer 204.09797 165.17839 180.63469 Random Glucose Calcium Phosphorus Magnesium Total Bilirubin AST ALT Alkaline Phosphatase Total Protein Albumin 12/16/16 12/16/16 12/16/16 05:00 05:00 05:00 WBC 7.1 RBC 3.13 L Hgb 9.8 L Hct 29.1 L MCV 92.9 MCH 31.4 MCHC 33.8 RDW 14.6 Plt Count 204 MPV 8.5 PT with INR 26.10 H INR 2.31 H D Sodium 142 Potassium 3.5 Chloride 101 Carbon Dioxide 33 H Anion Gap 8 BUN 4 L D Creatinine 0.3 L D Creat Clearance w eGFR > 60 POC Glucometer Random Glucose 148 H D Calcium 7.0 L Phosphorus 3.1 D Magnesium 1.7 L Total Bilirubin 0.3 AST 32 ALT 13 Alkaline Phosphatase 114 Total Protein 4.1 L Albumin 1.4 L 12/16/16 05:45 WBC RBC Hgb Hct MCV MCH MCHC RDW Plt Count MPV PT with INR INR Sodium Potassium Chloride Carbon Dioxide Anion Gap BUN Creatinine Creat Clearance w eGFR POC Glucometer 195.67156 Random Glucose Calcium Phosphorus Magnesium Total Bilirubin AST ALT Alkaline Phosphatase Total Protein Albumin ASSESSMENT AND PLAN: Perforated Sigmoid Colon Peritonitis s/p ex-lap/sigmoid resection/colostomy Sepsis COPD HTN Hyperlipidemia DM Smoker h/o CVA - PO per surgery - Antibiotics per ID - O2 to maintain saturation - Incentive spirometry - inhaled bronchodilators - Pain control - DVT prophylaxis Dr Cormier
[2016-12-16] MEDS: ALBUTEROL SO4 2.5/IPRATROPIUM 0.5 INH SOL 3 ML VIAL.NEB. NEB PRN ×2 (17:40)
[2016-12-16] MEDS ORDERED: PT OWN MED DRAWER 7, Y5N ONE (17:45)
[2016-12-16] MEDS ORDERED: WARFARIN NA 2 MG TABLET (UD) PO SCH (18:00)
[2016-12-16] MEDS: ACETAMINOPHEN 325 MG TABLET (FP) PO PRN (21:23)
[2016-12-17] MEDS: ZOLPIDEM TARTRATE 5 MG TABLET PO PRN ×2 (00:03→21:50)
[2016-12-17] MEDS: PIPERACILLIN/TAZOB 4.5 GM 100 ML IVPB SCH ×3 (00:59→17:11)
[2016-12-17] MEDS: metroNIDAZOLE 250 MG TABLET PO SCH ×3 (05:53→21:50)
[2016-12-17] MEDS: NYSTATIN POWDER 100,000 UNITS/GM - 15 GM TOPICAL POWDER TP SCH ×3 (05:54→21:51)
[2016-12-17] MEDS: INSULIN SLIDING SCALE (NOVOLOG) 1 VIAL SQ SCH ×4 (06:00→22:50)
[2016-12-17 06:27] LABS: MCH 31.1 pg (25.7-33.7); MCHC 33.5 g/dl (32.0-36.0); MEAN CELL VOLUME 92.8 fl (80-96); MEAN PLT VOLUME 8.7 fl (7.5-11.1); PLATELET COUNT 218 K/MM3 (134-434); RDW 14.4 % (11.6-15.6); WHITE BLOOD COUNT 7.1 K/mm3 (4.0-10.0)
[2016-12-17 06:43] LABS: INR 3.31 (0.82-1.09); PROTHROMBIN TIME (PATIENT) 37.4 SEC (9.98-11.88)
[2016-12-17 06:55] LABS: ALBUMIN 1.3 g/dl (3.4-5.0); ALK PHOS 101 U/L (45-117); ANION GAP 3 (8-16); BILIRUBIN,TOTAL 0.3 mg/dL (0.2-1.0); CALCIUM 7.1 mg/dL (8.5-10.1); CO2 35 mmol/L (21-32); CREATININE 0.4 mg/dL (0.55-1.02); GLUCOSE,RANDOM 107 mg/dL (74-106); SGOT/AST 28 U/L (15-37); SGPT/ALT 12 U/L (12-78); TOT PROT 3.9 g/dl (6.4-8.2)
--- NOTE | 2016-12-17 08:14 | PN ---
Progress Note, Physician Chief Complaint: ID Doing well Day 7 post op Minimal VALE drainage Zosyn metronidazole - Current Medication List Current Medications: Active Medications Acetaminophen (Tylenol -) 650 mg PO Q6H PRN PRN Reason: FEVER OR PAIN Last Admin: 12/16/16 21:23 Dose: 650 mg Albuterol Sulfate (Ventolin Hfa Inhaler -) 2 puff IH Q4H PRN PRN Reason: SHORT OF BREATH/WHEEZING Albuterol/Ipratropium (Duoneb -) 1 amp NEB Q6H PRN PRN Reason: SHORTNESS OF BREATH Last Admin: 12/16/16 17:40 Dose: 1 amp Carvedilol (Coreg -) 6.25 mg PO BID [facility] Last Admin: 12/16/16 21:23 Dose: 6.25 mg Famotidine/Sodium Chloride (Pepcid 20 Mg Premixed Ivpb -) 50 mls @ 100 mls/hr IVPB BID [facility] Last Admin: 12/16/16 21:23 Dose: 100 mls/hr Piperacillin Sod/Tazobactam Sod (Zosyn 4.5gm Ivpb (Pre-Docked)) 100 mls @ 200 mls/hr IVPB Q8H-IV [facility] PRN Reason: Protocol Last Admin: 12/17/16 00:59 Dose: 200 mls/hr Dextrose/Sodium Chloride (D5-1/2ns+40 Meq Kcl -) 1,000 mls @ 50 mls/hr IV ASDIR [facility] Last Admin: 12/16/16 13:32 Dose: 50 mls/hr Insulin Aspart (Novolog Vial Sliding Scale -) 1 vial SQ ACHS [facility] PRN Reason: Protocol Last Admin: 12/17/16 06:00 Dose: Not Given Metronidazole (Flagyl -) 500 mg PO TID [facility] Last Admin: 12/17/16 05:53 Dose: 500 mg Nicotine (Nicoderm Patch -) 14 mg TD DAILY [facility] Last Admin: 12/16/16 09:29 Dose: 14 mg Nystatin (Nystop Powder -) 1 applic TP TID [facility] Last Admin: 12/17/16 05:54 Dose: 1 applic Ondansetron HCl (Zofran Injection) 4 mg IVPUSH Q6H PRN PRN Reason: NAUSEA Oxycodone HCl (Roxicodone -) 10 mg PO Q6H PRN PRN Reason: PAIN LEVEL 6-10 Last Admin: 12/16/16 21:22 Dose: 10 mg Warfarin Sodium (Coumadin -) 4 mg PO DAILY@1800 [facility] Last Admin: 12/16/16 17:47 Dose: 4 mg Zolpidem Tartrate (Ambien -) 5 mg PO HS PRN PRN Reason: INSOMNIA Last Admin: 12/17/16 00:03 Dose: 5 mg - Objective Vital Signs: Vital Signs Temperature 97.4 F L 12/17/16 05:58 Pulse Rate 98 H 12/17/16 05:58 Respiratory Rate 20 12/17/16 05:58 Blood Pressure 122/66 12/17/16 05:58 O2 Sat by Pulse Oximetry (%) 96 12/16/16 20:48 Constitutional: Yes: Well Nourished, No Distress Neck: Yes: WNL, Supple Cardiovascular: Yes: Regular Rate and Rhythm, S1, S2 Respiratory: Yes: WNL, Regular, CTA Bilaterally Gastrointestinal: Yes: Soft. No: Tenderness, Other (Drain and colostomy) Labs: CBC, BMP 12/17/16 06:10 12/17/16 06:10 INR, PTT INR 3.31 (0.82-1.09) H D 12/17/16 06:10 Problem List - Problems (1) Diabetes mellitus type 2, noninsulin dependent Code(s): E11.9 - TYPE 2 DIABETES MELLITUS WITHOUT COMPLICATIONS (2) Perforated sigmoid colon Code(s): K63.1 - PERFORATION OF INTESTINE (NONTRAUMATIC) (3) Cancer of left breast Code(s): C50.912 - MALIGNANT NEOPLASM OF UNSPECIFIED SITE OF LEFT FEMALE BREAST Qualifiers: Breast location: upper outer quadrant of breast Estrogen receptor status: positive Patient sex: female Qualified Code(s): C50.412 - Malignant neoplasm of upper-outer quadrant of left female breast; C50.412 - Malignant neoplasm of upper-outer quadrant of left female breast; C50.412 - Malignant neoplasm of upper-outer quadrant of left female breast; C50.412 - Malignant neoplasm of upper-outer quadrant of left female breast; Z17.0 - Estrogen receptor positive status [ER+]; Z17.0 - Estrogen receptor positive status [ER+] (4) Peritonitis Code(s): K65.9 - PERITONITIS, UNSPECIFIED (5) Clostridium difficile infection Code(s): B96.89 - [facility] BACTERIAL AGENTS THE CAUSE OF DISEASES CLASSD [id number] Assessment/Plan Microbiology 12/11/16 15:45 Stool Clostridium difficile Antigen (KIRILL) - Final 12/11/16 15:45 Stool Clostridium difficile Toxin Assay - Final 12/10/16 19:30 Peritoneal Fluid Gram Stain - Final 12/10/16 19:30 Peritoneal Fluid Anaerobic Culture - Final NO GROWTH OF AEROBIC ORGANISMS AFTER 48 HOURS INCUBATION NO ANAEROBES WERE ISOLATED 12/08/16 17:23 Urine - Urine Clean Catch Urine Culture - Final Contaminated: Please Repeat 12/08/16 12:00 Blood - Peripheral Venous Blood Culture - Final NO GROWTH AFTER 5 DAYS INCUBATION 12/08/16 11:25 Blood - Peripheral Venous Blood Culture - Final NO GROWTH AFTER 5 DAYS INCUBATION Laboratory Tests 12/17/16 12/17/16 06:10 06:10 WBC 7.1 Hgb 9.3 L Hct 27.6 L Plt Count 218 Creat Clearance w eGFR > 60 Assessment Colonic perforation ? C diff related Ag positive toxin negative ? Plan Today the last day of IV antibiotic Oral metronidazole to continue for 14 days Surgical path pending Alexander GOMEZ
[2016-12-17] MEDS: CARVEDILOL 6.25 MG TABLET (FP) PO SCH ×2 (09:18→21:50)
[2016-12-17] MEDS: FAMOTIDINE 20 MG/50 ML IVPB 50 ML IVPB SCH ×2 (09:18→21:51)
[2016-12-17] MEDS ORDERED: PT OWN MED DRAWER 7, Y5N ONE ×2 (09:28→21:56)
[2016-12-17] MEDS: NICOTINE 14 MG/24 HOURS TOPICAL PATCH TD SCH (09:32)
[2016-12-17] MEDS ORDERED: INSULIN (NOVOLOG) ASPART 100 UNITS/ML 10ML VIAL ONE (11:08)
--- NOTE | 2016-12-17 11:46 | PN ---
Progress Note, Physician Chief Complaint: abdominal distention, LLQ pain History of Present Illness: POD7 s/p sigmoid resection with colostomy (Dwaine's procedure) for perforation of sigmoid, possibly secondary to C. diff megacolon pt seen and examined in chair no overnight events, no specific complaints doing well, pain controlled with minimal oral meds UOP 1250 yest, 450 overnight nathaly diet but little appetite, no nausea VALE drain with 175 yesterday, bulb with light brownish fluid colostomy with brown liquid stool, 300 yesterday, 700 so far today - Current Medication List Current Medications: Active Medications Acetaminophen (Tylenol -) 650 mg PO Q6H PRN PRN Reason: FEVER OR PAIN Last Admin: 12/16/16 21:23 Dose: 650 mg Albuterol Sulfate (Ventolin Hfa Inhaler -) 2 puff IH Q4H PRN PRN Reason: SHORT OF BREATH/WHEEZING Albuterol/Ipratropium (Duoneb -) 1 amp NEB Q6H PRN PRN Reason: SHORTNESS OF BREATH Last Admin: 12/16/16 17:40 Dose: 1 amp Carvedilol (Coreg -) 6.25 mg PO BID [facility] Last Admin: 12/17/16 09:18 Dose: 6.25 mg Famotidine/Sodium Chloride (Pepcid 20 Mg Premixed Ivpb -) 50 mls @ 100 mls/hr IVPB BID [facility] Last Admin: 12/17/16 09:18 Dose: 100 mls/hr Piperacillin Sod/Tazobactam Sod (Zosyn 4.5gm Ivpb (Pre-Docked)) 100 mls @ 200 mls/hr IVPB Q8H-IV [facility] PRN Reason: Protocol Stop: 12/18/16 23:59 Last Admin: 12/17/16 11:11 Dose: 200 mls/hr Dextrose/Sodium Chloride (D5-1/2ns+40 Meq Kcl -) 1,000 mls @ 50 mls/hr IV ASDIR [facility] Last Admin: 12/16/16 13:32 Dose: 50 mls/hr Insulin Aspart (Novolog Vial Sliding Scale -) 1 vial SQ ACHS [facility] PRN Reason: Protocol Last Admin: 12/17/16 11:14 Dose: 2 units Metronidazole (Flagyl -) 500 mg PO TID [facility] Last Admin: 12/17/16 05:53 Dose: 500 mg Nicotine (Nicoderm Patch -) 14 mg TD DAILY [facility] Last Admin: 12/17/16 09:32 Dose: 14 mg Nystatin (Nystop Powder -) 1 applic TP TID [facility] Last Admin: 12/17/16 05:54 Dose: 1 applic Ondansetron HCl (Zofran Injection) 4 mg IVPUSH Q6H PRN PRN Reason: NAUSEA Oxycodone HCl (Roxicodone -) 10 mg PO Q6H PRN PRN Reason: PAIN LEVEL 6-10 Last Admin: 12/16/16 21:22 Dose: 10 mg Warfarin Sodium (Coumadin -) 4 mg PO DAILY@1800 [facility] Last Admin: 12/16/16 17:47 Dose: 4 mg Zolpidem Tartrate (Ambien -) 5 mg PO HS PRN PRN Reason: INSOMNIA Last Admin: 12/17/16 00:03 Dose: 5 mg - Objective Vital Signs: Vital Signs Temperature 98.8 F 12/17/16 08:00 Pulse Rate 105 H 12/17/16 10:00 Respiratory Rate 20 12/17/16 10:00 Blood Pressure 132/70 12/17/16 10:00 O2 Sat by Pulse Oximetry (%) 97 12/17/16 08:00 Vital Signs Period Temp Pulse Resp BP Sys/Holt Pulse Ox Last 24 Hr 97.4 F-98.8 F 75-121 16-21 122-153/66-88 96-97 Intake & Output 12/16/16 12/17/16 12/17/16 23:59 07:59 15:59 Intake Total 450 500 Output Total 650 305 850 Balance -200 195 -850 Weight 218 lb 4 oz Intake: IV 200 300 D5-1/2Ns+40 Meq KCl - 1, 200 300 000 ml @ 50 mls/hr IV ASDIR [facility] Rx#:[id number] IVPB 50 100 Oral 200 100 Output: Drainage 100 105 600 Abdomen 100 5 colostomy 100 600 Urine 550 200 250 Void 550 200 250 Other: Voiding Method Bedpan Bedpan Weight Measurement Method Built in [facility] Constitutional: Yes: No Distress, Calm, Obese Gastrointestinal: Yes: Soft, Abdomen, Obese, Other (colostomy pink, patent, productive of liquid brown stool; drain with serous fluid and some brownish debris). No: Tenderness Edema: Yes (less overall) Edema: LUE: 1+, RUE: 1+ Integumentary: Yes: Incision (midline). No: Rash Wound/Incision: Yes: Dressing Dry and Intact, Unapproximated (midline). No: Dressing Removed (will change dressing later when back in bed) Neurological: Yes: Alert, Oriented Labs: CBC, BMP 12/17/16 06:10 12/17/16 06:10 INR, PTT INR 3.31 (0.82-1.09) H D 12/17/16 06:10 CMP Sodium 140 mmol/L (136-145) 12/17/16 06:10 Potassium 3.3 mmol/L (3.5-5.1) L 12/17/16 06:10 Chloride 102 mmol/L (98-107) 12/17/16 06:10 Carbon Dioxide 35 mmol/L (21-32) H 12/17/16 06:10 Anion Gap 3 (8-16) L 12/17/16 06:10 BUN 5 mg/dL (7-18) L D 12/17/16 06:10 Creatinine 0.4 mg/dL (0.55-1.02) L D 12/17/16 06:10 Creat Clearance w eGFR > 60 (>60) 12/17/16 06:10 POC Glucometer 195.70730 UNITS (()) 12/16/16 05:45 Random Glucose 107 mg/dL (74-106) H D 12/17/16 06:10 Calcium 7.1 mg/dL (8.5-10.1) L 12/17/16 06:10 Total Bilirubin 0.3 mg/dL (0.2-1.0) 12/17/16 06:10 Direct Bilirubin < 0.1 mg/dL (0.0-0.2) 12/11/16 05:00 AST 28 U/L (15-37) 12/17/16 06:10 ALT 12 U/L (12-78) 12/17/16 06:10 Alkaline Phosphatase 101 U/L (45-117) 12/17/16 06:10 Total Protein 3.9 g/dl (6.4-8.2) L 12/17/16 06:10 Albumin 1.3 g/dl (3.4-5.0) L 12/17/16 06:10 Lipase 21 U/L (22-51) L 12/08/16 11:50 INR up today Mg, Phos pending Problem List - Problems (1) Perforated sigmoid colon Assessment/Plan: POD7 s/p sigmoid resection with colostomy (Dwaine's procedure) for perforated sigmoid colon, possibly secondary to C. diff megacolon doing well overall but weak/deconditioned on nasal cannula O2 prn, using incentive spirometer tolerating diet, but not eating much - will order glucerna with meals OOB to chair, commode for urination, ambulate with assist as able PT seeing patient pain controlled with minimal po meds checking Mg, Phos continue antibiotics - few more days of Zosyn; Flagyl changed to po - to complete 14 days total per ID midline wound dressing changes daily colostomy functioning will change ostomy appliance with pathology still pending discharge planning - will need VNS for new ostomy care, daily midline wound care /packing changes, family teaching, possibly drain care/emptying Code(s): K63.1 - PERFORATION OF INTESTINE (NONTRAUMATIC) (2) Dilatation of colon Code(s): K59.39 - OTHER MEGACOLON (3) H/O: CVA (cerebrovascular accident) Assessment/Plan: INR supratherapeutic already, would hold coumadin tonight Code(s): Z86.73 - PRSNL HX OF TIA (TIA), AND CEREB INFRC W/O RESID DEFICITS (4) Hypertension Assessment/Plan: carvedilol reordered ok to resume amlodipine when indicated Code(s): I10 - ESSENTIAL (PRIMARY) HYPERTENSION Qualifiers: Hypertension type: essential hypertension Qualified Code(s): I10 - Essential (primary) hypertension; I10 - Essential (primary) hypertension; I10 - Essential (primary) hypertension (5) Diabetes mellitus type 2, noninsulin dependent Assessment/Plan: FS with SSI will eventually resume metformin when tolerating diet Code(s): E11.9 - TYPE 2 DIABETES MELLITUS WITHOUT COMPLICATIONS (6) Cancer of left breast Assessment/Plan: has been on Arimidex - ok to resume per family and pt, Dr. Pete does not take her current insurance - they are planning to change oncologists Code(s): C50.912 - MALIGNANT NEOPLASM OF UNSPECIFIED SITE OF LEFT FEMALE BREAST Qualifiers: Breast location: upper outer quadrant of breast Estrogen receptor status: positive Patient sex: female Qualified Code(s): C50.412 - Malignant neoplasm of upper-outer quadrant of left female breast; C50.412 - Malignant neoplasm of upper-outer quadrant of left female breast; C50.412 - Malignant neoplasm of upper-outer quadrant of left female breast; C50.412 - Malignant neoplasm of upper-outer quadrant of left female breast; Z17.0 - Estrogen receptor positive status [ER+]; Z17.0 - Estrogen receptor positive status [ER+] (7) COPD without exacerbation Assessment/Plan: nebs as indicated and prn IS and encourage coughing/expectoration defer to primary team Code(s): J44.9 - CHRONIC OBSTRUCTIVE PULMONARY DISEASE, UNSPECIFIED
[2016-12-17 12:12] LABS: MAGNESIUM 1.7 mg/dL (1.8-2.4)
[2016-12-17 12:14] LABS: PHOSPHOROUS 3.2 mg/dL (2.5-4.9)
[2016-12-17] MEDS: D5-1/2NS+40 MEQ KCL - 1,000 ML IV SCH ×2 (13:16→14:30)
[2016-12-17] MEDS ORDERED: MAGNESIUM SULF 50% (8.12 MEQ/2 ML-1 GM VIAL) IVPB ONE ×2 (14:25→15:15)
--- NOTE | 2016-12-17 14:54 | PN ---
Progress Note, Physician History of Present Illness: Pt w/o F, C, cough, SOB, CP. palp, N, V. Pt with abd pain is improved. Pt is tolerating PO but not much. Pt is weak, walked with help today. - Current Medication List Current Medications: Active Medications Acetaminophen (Tylenol -) 650 mg PO Q6H PRN PRN Reason: FEVER OR PAIN Last Admin: 12/16/16 21:23 Dose: 650 mg Albuterol Sulfate (Ventolin Hfa Inhaler -) 2 puff IH Q4H PRN PRN Reason: SHORT OF BREATH/WHEEZING Albuterol/Ipratropium (Duoneb -) 1 amp NEB Q6H PRN PRN Reason: SHORTNESS OF BREATH Last Admin: 12/16/16 17:40 Dose: 1 amp Carvedilol (Coreg -) 6.25 mg PO BID [facility] Last Admin: 12/17/16 09:18 Dose: 6.25 mg Famotidine/Sodium Chloride (Pepcid 20 Mg Premixed Ivpb -) 50 mls @ 100 mls/hr IVPB BID [facility] Last Admin: 12/17/16 09:18 Dose: 100 mls/hr Piperacillin Sod/Tazobactam Sod (Zosyn 4.5gm Ivpb (Pre-Docked)) 100 mls @ 200 mls/hr IVPB Q8H-IV [facility] PRN Reason: Protocol Stop: 12/18/16 23:59 Last Admin: 12/17/16 11:11 Dose: 200 mls/hr Dextrose/Sodium Chloride (D5-1/2ns+40 Meq Kcl -) 1,000 mls @ 50 mls/hr IV ASDIR [facility] Last Admin: 12/17/16 13:16 Dose: 50 mls/hr Insulin Aspart (Novolog Vial Sliding Scale -) 1 vial SQ ACHS [facility] PRN Reason: Protocol Last Admin: 12/17/16 11:14 Dose: 2 units Magnesium Sulfate (Magnesium Sulfate) 2 gm IVPB ONCE ONE Stop: 12/17/16 14:46 Metronidazole (Flagyl -) 500 mg PO TID [facility] Last Admin: 12/17/16 13:15 Dose: 500 mg Nicotine (Nicoderm Patch -) 14 mg TD DAILY [facility] Last Admin: 12/17/16 09:32 Dose: 14 mg Nystatin (Nystop Powder -) 1 applic TP TID [facility] Last Admin: 12/17/16 13:15 Dose: 1 applic Ondansetron HCl (Zofran Injection) 4 mg IVPUSH Q6H PRN PRN Reason: NAUSEA Oxycodone HCl (Roxicodone -) 10 mg PO Q6H PRN PRN Reason: PAIN LEVEL 6-10 Last Admin: 12/16/16 21:22 Dose: 10 mg Potassium Chloride (K-Dur -) 40 meq PO ONCE ONE Stop: 12/17/16 14:46 Zolpidem Tartrate (Ambien -) 5 mg PO HS PRN PRN Reason: INSOMNIA Last Admin: 12/17/16 00:03 Dose: 5 mg - Objective Vital Signs: Vital Signs Temperature 98.6 F 12/17/16 13:27 Pulse Rate 102 H 12/17/16 14:47 Respiratory Rate 22 12/17/16 13:27 Blood Pressure 142/70 12/17/16 13:27 O2 Sat by Pulse Oximetry (%) 99 12/17/16 14:47 Constitutional: Yes: No Distress, Calm Cardiovascular: Yes: Regular Rate and Rhythm, S1, S2 Respiratory: Yes: Regular, CTA Bilaterally. No: Rales Gastrointestinal: Yes: Normal Bowel Sounds, Soft, Other (+ colostomy bag). No: Tenderness Edema: No Neurological: Yes: Alert, Oriented Labs: CBC, BMP 12/17/16 06:10 12/17/16 06:10 INR, PTT INR 3.31 (0.82-1.09) H D 12/17/16 06:10 Problem List - Problems (1) Perforated sigmoid colon Code(s): K63.1 - PERFORATION OF INTESTINE (NONTRAUMATIC) (2) Colostomy in place Code(s): Z93.3 - COLOSTOMY STATUS (3) Dilatation of colon Code(s): K59.39 - OTHER MEGACOLON (4) LLQ pain Code(s): R10.32 - LEFT LOWER QUADRANT PAIN (5) Cancer of left breast Code(s): C50.912 - MALIGNANT NEOPLASM OF UNSPECIFIED SITE OF LEFT FEMALE BREAST Qualifiers: Breast location: upper outer quadrant of breast Estrogen receptor status: positive Patient sex: female Qualified Code(s): C50.412 - Malignant neoplasm of upper-outer quadrant of left female breast; C50.412 - Malignant neoplasm of upper-outer quadrant of left female breast; C50.412 - Malignant neoplasm of upper-outer quadrant of left female breast; C50.412 - Malignant neoplasm of upper-outer quadrant of left female breast; Z17.0 - Estrogen receptor positive status [ER+]; Z17.0 - Estrogen receptor positive status [ER+] (6) Diabetes mellitus type 2, noninsulin dependent Code(s): E11.9 - TYPE 2 DIABETES MELLITUS WITHOUT COMPLICATIONS (7) H/O: CVA (cerebrovascular accident) Code(s): Z86.73 - PRSNL HX OF TIA (TIA), AND CEREB INFRC W/O RESID DEFICITS (8) Supratherapeutic INR Code(s): R79.1 - ABNORMAL COAGULATION PROFILE (9) Hypertension Code(s): I10 - ESSENTIAL (PRIMARY) HYPERTENSION Qualifiers: Hypertension type: essential hypertension Qualified Code(s): I10 - Essential (primary) hypertension; I10 - Essential (primary) hypertension; I10 - Essential (primary) hypertension (10) COPD (chronic obstructive pulmonary disease) Code(s): J44.9 - CHRONIC OBSTRUCTIVE PULMONARY DISEASE, UNSPECIFIED (11) Hypomagnesemia Code(s): E83.42 - HYPOMAGNESEMIA (12) Hypophosphatemia Code(s): E83.39 - OTHER DISORDERS OF PHOSPHORUS METABOLISM (13) Hypoalbuminemia Code(s): E88.09 - OTH DISORDERS OF PLASMA-PROTEIN METABOLISM, NEC Assessment/Plan . Pt is on tolerating PO intake. BGM with coverage for now. Pt was changed to PO Flagyl. lasta day of IV abtx Monitor and replete electrolytes; replete Mg, K. AM labs. Coumadin onn hold tonight, INR in AM. Case was d/w pt's nurse. Pt's son at bedside.
[2016-12-17] MEDS ORDERED: POTASSIUM CHLORIDE TABS 20 MEQ TABLET.ER (FP) PO ONE (15:15)
[2016-12-17] MEDS: ALBUTEROL SO4 2.5/IPRATROPIUM 0.5 INH SOL 3 ML VIAL.NEB. NEB PRN (18:41)
[2016-12-17] MEDS: ANASTROZOLE 1 MG TABLET PO SCH (22:48)
[2016-12-18] MEDS: PIPERACILLIN/TAZOB 4.5 GM 100 ML IVPB SCH ×2 (01:45→10:41)
[2016-12-18] MEDS: NYSTATIN POWDER 100,000 UNITS/GM - 15 GM TOPICAL POWDER TP SCH ×3 (05:39→21:58)
[2016-12-18] MEDS: metroNIDAZOLE 250 MG TABLET PO SCH ×3 (05:39→21:58)
[2016-12-18 06:18] LABS: MCH 31.2 pg (25.7-33.7); MCHC 33.5 g/dl (32.0-36.0); MEAN CELL VOLUME 93.3 fl (80-96); MEAN PLT VOLUME 8.7 fl (7.5-11.1); PLATELET COUNT 234 K/MM3 (134-434); RDW 14.9 % (11.6-15.6); WHITE BLOOD COUNT 7.4 K/mm3 (4.0-10.0)
[2016-12-18] MEDS: INSULIN SLIDING SCALE (NOVOLOG) 1 VIAL SQ SCH ×4 (06:28→21:58)
[2016-12-18 06:32] LABS: INR 2.74 (0.82-1.09)
[2016-12-18 06:57] LABS: ANION GAP 9 (8-16); CO2 33 mmol/L (21-32); GLUCOSE,RANDOM 106 mg/dL (74-106)
[2016-12-18 06:59] LABS: CALCIUM 7.1 mg/dL (8.5-10.1); CREATININE 0.3 mg/dL (0.55-1.02)
[2016-12-18] MEDS ORDERED: HEMOQUE CONTROL SOLUTION ONE (07:33)
--- NOTE | 2016-12-18 09:14 | OP ---
DATE OF OPERATION: 12/10/2016 PREOPERATIVE DIAGNOSIS: Perforated colon. POSTOPERATIVE DIAGNOSIS: Perforated sigmoid colon. PROCEDURE PERFORMED: Sigmoid colon resection and colostomy (Dwaine procedure ) and mobilization of splenic flexure. SURGEON: Isreal Mitchell MD LENS HARDENER: Magan Pereira MD ANESTHESIA: General endotracheal. ESTIMATED BLOOD LOSS: 250 mL FLUIDS: 6 L of crystalloid including 3 L of normal saline and 3 L of lactated Ringer's, also 2 units of FFP. URINE OUTPUT: 50 mL SPECIMENS: Sigmoid colon and additional proximal portion of colon. Also, peritoneal fluid culture was sent to Microbiology. FINDINGS: An inflamed segment of sigmoid colon with a necrotic patch and perforation. There was no palpable mass present. There was cloudy peritoneal fluid cultured on entry. There was stool spillage during mobilization of the colon, which was washed out with saline. No other evidence of perforation elsewhere, and the appendix was noted to be normal. DISPOSITION: Intubated to the recovery room and then intensive care unit. INDICATIONS FOR PROCEDURE: The patient is a 66-year-old obese female with multiple medical problems including a history of a stroke on anticoagulation, which had been held since her admission 2-1/2 days prior, as well as recently diagnosed breast cancer, who had been admitted with a history that began with diarrhea several days after starting a course of Augmentin, followed a week later by abdominal pain and then abdominal distention, with the pain primarily in the left lower quadrant. She had not had much appetite for several days and had stopped having diarrhea and, in fact, had no full bowel movement for several days prior to admission. At that time, her white count had been 11,000. Her INR was supratherapeutic at greater than 15, and she had a low-grade temperature. A CT with IV contrast, but not oral, showed colonic dilation from the cecum to the sigmoid with a caliber change in the sigmoid colon but no mass or stricture evident, and a little bit of ascites in the abdomen and pelvis. She had been in the hospital for several days with small improvements every day. Her INR had come down to 1.8 this morning, and her distention was slightly less. She finally had reported passed flatus and a small bowel movement, and her pain and tenderness were also less. She had been given a little bit of clears for lunch. After that, her abdominal x-ray from today was noted to show free air, and she was transferred to the main [facility] from [place] for emergent OR. Risks, benefits, and alternatives of exploratory laparotomy with possible bowel resection and possible ostomy were explained to the patient and her and discussed with risks including, but not limited to, bleeding, infection, injury to intraabdominal structures, intestinal leak, intraabdominal abscess, need for further procedures, and the understanding that we did not know what we would find, but that the presumption was perforated colon, and the likelihood of coming out with a colostomy was very high. The patient signed informed consent for this operation, and as she had already been on levofloxacin and Flagyl at [facility] , she was given a dose of Zosyn immediately preoperatively. OPERATIVE TECHNIQUE: The patient was brought to the operating room and laid supine on the operating table. Sequential compression devices were applied to bilateral lower extremities, and again, Zosyn was given preoperatively. She also had 2 units of FFP, the first of which was running as we entered the operating room. The second was given as the operation began, to help with further correction of her INR. After induction and intubation by Anesthesia, a Escobar catheter was placed in the patient's bladder, and anesthesia inserted an NG tube , which was later palpated to be in the stomach and secured by them to remain postoperatively. A midline incision was made with a scalpel and carried into subcutaneous tissues with electrocautery, until the abdominal wall fascia was identified along the length of the incision. The fascia was scored and divided with electrocautery, until the preperitoneal fat and peritoneum were identifiable. The peritoneum was grasped with 2 clamps and elevated and entered with Metzenbaum scissors. A finger was then placed into the peritoneal cavity to protect the bowel, over which, the remainder of the incision was opened throughout its full length with electrocautery. As the omentum was brought out of the incision, the peritoneal fluid was noted to be slightly yellow and cloudy, and cultures were taken for microbiology. This was suctioned with a Medeiros suction device, and we began our exploration of the abdomen in the upper quadrants as there was yellow cloudy fluid in this area. Identification first of the transverse colon, and then the stomach and the pylorus, revealed no evidence of perforation. Thus, attention was turned to the right lower quadrant, where we were able to identify the cecum, mobilize the small bowel away from the right lower quadrant, and note that the appendix appeared normal. There was no perforation identified in the terminal ileum, cecum or proximal right colon. We then moved to the left lower quadrant, where more contaminated peritoneal fluid was identified, and a portion of the transverse colon and the omentum were noted to be stuck down to this area and carefully and bluntly with a fingertip, revealing an inflamed area on the transverse colon fat, but then it quickly became obvious that the sigmoid colon was the site of the perforation. We exposed a segment of the sigmoid that appeared rather inflamed, with an area on its surface that appeared necrotic, and it was evident this was the site of perforation, although there was no active extravasation of bowel contents from the colon. Once this had been identified, we placed a Platter retractor with a bladder blade for exposure. Rolled damp lap pads and towels were used to pack the small bowel away from the left lower quadrant. We began identifying the limits of the planned sigmoid resection. Distally, the rectosigmoid several centimeters past the affected colon felt soft and normal, and we were able to mobilize the sigmoid medially enough to identify the white line of Toldt. We began mobilizing the sigmoid there at the lower aspect, using a right angle clamp and electrocautery, and as we proceeded superiorly up the descending colon, were able to get just past the inflamed area to a level of the colon that was palpated and felt to be normal without inflammation. As we mobilized the colon, however, the area of the necrotic wall and perforation had begun to spill liquid stool, which was carefully irrigated and suctioned clear as frequently as possible to minimize the spillage into the abdominal cavity. Bowel clamps and Sara clamps were used in an attempt to control spillage from this area as we worked. Ultimately, once we had gotten the bowel mobilized to above the area of the inflammation, we placed clamps across the bowel to contain spillage, created a window adjacent to the bowel wall large enough to pass a finger through, and used a TA 60 stapler to transect the proximal portion of colon. Lap pads had been placed to protect the remainder of the abdominal cavity, and suction was used liberally to keep the field as clear as possible of stool spillage. The LigaSure device was then used to begin transecting the mesentery inferiorly toward the distal colon and rectosigmoid. We were able to isolate the larger vessels which were clamped with Kellys, divided and tied with 0 silk ties. The distal transection near the rectosigmoid junction was accomplished with a TA 80 stapler, and the specimen passed off the field to be sent to Pathology. It was not opened in the room. The dirty rolled towels were changed, and the abdominal cavity was then copiously irrigated with saline solution and suctioned clear from the spillage. We directed our attention to mobilizing the proximal end of the colon to be brought out as a colostomy. It quickly became evident that we were going to need to mobilize the full splenic flexure in order to have enough length to be able to bring out a stoma. This was accomplished with the Ligasure and with electrocautery guided by the tip of a right-angle clamp, until the splenic flexure was free, and the colon was mobilized into the field. We had almost enough length to bring out the stoma, and it became clear that we needed to take one additional arcade of vessels from the mesentery where it was tethered at the most distal aspect of the proximal limb, which was going to necessitate an additional resection of several centimeters of the end of the colon. The LigaSure was then used to take the mesentery back another couple of centimeters. That arcade was isolated, clamped with Kellys, divided, and tied with 0 silk ties. At this point, we clearly had enough length for the colon to reach through the abdominal wall, with the stoma itself being from the splenic flexure, at the most proximal descending colon. We then turned our attention to creating an opening in the abdominal wall for the stoma. The Platter retractor and towels were removed. A point on the left abdominal wall just above the level of the umbilicus was selected, and a Amado clamp placed in the skin, a small disk of skin removed with the electrocautery, and a small core of fat removed as well with electrocautery. We were then able to spread the subcutaneous fat down to the level of the fascia which was divided in cruciate fashion with the electrocautery, and the muscle was split and partially divided until the peritoneum was encountered. A Amado clamp had been placed on the fascia, which was held at the midline. The peritoneum was opened with electrocautery over fingertips, and the opening was stretched to allow 3 fingers through. A Deana clamp was inserted through this hole, and the end of the colon brought out through it, which was beginning to demarcate from the additional mesenteric division. We left this for resection of the end of the colon and maturation of the stoma for the end of the operation. Attention was then returned to the inside of the abdominal cavity, where we irrigated with several liters of saline solution and suctioned all quadrants clear. We then opted to leave a drain in the pelvis, and a flat VALE drain was brought out through a stab wound in the right lower quadrant, laid in position in the pelvis and up into the left lower quadrant gutter. This was secured with a nylon stitch and attached to bulb suction. The NG tube was palpated in the stomach and ensured to be in appropriate position and secured by Anesthesia. Hemostasis was assured, and all areas of the field were checked carefully with no active bleeding noted. Counts were checked and noted to be correct, and the fascia was then closed with running 0 looped Maxon x2, starting at both ends and tied in the middle. Maria Eugenia were used to reapproximate the skin just at the umbilicus, and the subcutaneous tissues above and below that were left to be packed at the end of the procedure. Attention was then turned to maturing the colostomy. The distal end of the colon was then cleared of fat at the bowel wall with electrocautery, and transection was made with the TA stapler at the point of demarcation, ensuring clearly viable colon to mature for the colostomy. This additional piece was sent as additional proximal portion of colon to Pathology. The staple line was then removed with electrocautery, and the stoma matured circumferentially with 3 -0 Vicryl sutures. The lumen was checked and ensured to be patent all the way through the fascia. Benzoin was applied around the edges of the skin surrounding the ostomy and an ostomy appliance placed and a bag attached. The midline incision was then packed with 2-inch Iodoform both above and below the umbilicus, covered with gauze and an ABD pad, which was taped into place. A drain dressing was placed as well at the right lower quadrant. Final counts were correct at the end of the procedure. The patient was moved back onto an ICU bed and taken still intubated to the recovery room, hemodynamically stable, having tolerated the procedure well. Dr. Pereira was an essential residential living assistant throughout the procedure, facilitating entry into the abdominal cavity, mobilization and transection of the colon, retraction and exposure, closure of the fascia and maturation of the stoma. He was present for the entire case. Isreal Mitchell M.D. [id number] MTDD
[2016-12-18] MEDS ORDERED: PT OWN MED DRAWER 7, Y5N ONE ×2 (10:38→21:40)
[2016-12-18] MEDS: FAMOTIDINE 20 MG/50 ML IVPB 50 ML IVPB SCH ×2 (10:41→21:57)
[2016-12-18] MEDS: NICOTINE 14 MG/24 HOURS TOPICAL PATCH TD SCH (10:41)
[2016-12-18] MEDS: CARVEDILOL 6.25 MG TABLET (FP) PO SCH ×2 (10:42→21:58)
[2016-12-18] MEDS ORDERED: HEMOQUE TEST 1 EACH EACH ONE (11:49)
--- NOTE | 2016-12-18 12:23 | PN ---
Progress Note, Physician Chief Complaint: abdominal distention, LLQ pain History of Present Illness: POD8 s/p sigmoid resection with colostomy (Dwaine's procedure) for perforation of sigmoid, possibly secondary to C. diff megacolon pt seen and examined in bed no overnight events, no specific complaints doing well, pain minimal and mainly with getting OOB/ambulating, not using meds much at all UOP 1300 yesterday nathaly diet but little appetite, no nausea VALE drain with 15 yesterday, 10 overnight, bulb with scant clear fluid colostomy with brown liquid stool, 910 yesterday, 40 overnight has been up with PT but very weak - Current Medication List Current Medications: Active Medications Acetaminophen (Tylenol -) 650 mg PO Q6H PRN PRN Reason: FEVER OR PAIN Last Admin: 12/16/16 21:23 Dose: 650 mg Albuterol Sulfate (Ventolin Hfa Inhaler -) 2 puff IH Q4H PRN PRN Reason: SHORT OF BREATH/WHEEZING Albuterol/Ipratropium (Duoneb -) 1 amp NEB Q6H PRN PRN Reason: SHORTNESS OF BREATH Last Admin: 12/17/16 18:41 Dose: 1 amp Anastrozole (Arimidex -) 1 mg PO HS [facility] Last Admin: 12/17/16 22:48 Dose: 1 mg Carvedilol (Coreg -) 6.25 mg PO BID [facility] Last Admin: 12/18/16 10:42 Dose: 6.25 mg Famotidine/Sodium Chloride (Pepcid 20 Mg Premixed Ivpb -) 50 mls @ 100 mls/hr IVPB BID [facility] Last Admin: 12/18/16 10:41 Dose: 100 mls/hr Dextrose/Sodium Chloride (D5-1/2ns+40 Meq Kcl -) 1,000 mls @ 50 mls/hr IV ASDIR [facility] Last Admin: 12/17/16 14:30 Dose: Not Given Piperacillin/Tazobactam/Dextrose (Zosyn 4.5gm Ivpb (Premix)) 100 mls @ 200 mls/ hr IVPB Q8H-IV [facility] PRN Reason: Protocol Last Admin: 12/18/16 10:41 Dose: 200 mls/hr Insulin Aspart (Novolog Vial Sliding Scale -) 1 vial SQ ACHS [facility] PRN Reason: Protocol Last Admin: 12/18/16 06:28 Dose: Not Given Metronidazole (Flagyl -) 500 mg PO TID [facility] Last Admin: 12/18/16 05:39 Dose: 500 mg Nicotine (Nicoderm Patch -) 14 mg TD DAILY [facility] Last Admin: 12/18/16 10:41 Dose: 14 mg Nystatin (Nystop Powder -) 1 applic TP TID [facility] Last Admin: 12/18/16 05:39 Dose: 1 applic Ondansetron HCl (Zofran Injection) 4 mg IVPUSH Q6H PRN PRN Reason: NAUSEA Oxycodone HCl (Roxicodone -) 10 mg PO Q6H PRN PRN Reason: PAIN LEVEL 6-10 Last Admin: 12/16/16 21:22 Dose: 10 mg Zolpidem Tartrate (Ambien -) 5 mg PO HS PRN PRN Reason: INSOMNIA Last Admin: 12/17/16 21:50 Dose: 5 mg - Objective Vital Signs: Vital Signs Temperature 98.4 F 12/18/16 06:00 Pulse Rate 101 H 12/18/16 10:40 Respiratory Rate 22 12/18/16 06:00 Blood Pressure 148/47 12/18/16 06:00 O2 Sat by Pulse Oximetry (%) 99 12/18/16 10:40 Constitutional: Yes: No Distress, Calm, Obese Gastrointestinal: Yes: Normal Bowel Sounds, Soft, Abdomen, Obese, Other ( colostomy pink, patent, productive of liquid dark brown stool). No: Distention , Tenderness Extremities: No: Cool, Cyanosis Edema: Yes Edema: LUE: 1+, RUE: 1+ Integumentary: Yes: Erythema (mild skin irritation from tape around drain dressing site), Incision (midline) Wound/Incision: Yes: Oxford Intact (at umbilicus), Dressing Removed (and packing changed; both wounds with some granulation basally, some yellow and dark slough on upper centeno, few strands debrided with scissors, repacked w/ saline-dampened Kerlix), Unapproximated (midline) Neurological: Yes: Alert, Oriented Labs: CBC, BMP 12/18/16 05:10 12/18/16 05:10 INR, PTT INR 2.74 (0.82-1.09) H 12/18/16 05:10 CMP Sodium 142 mmol/L (136-145) 12/18/16 05:10 Potassium 3.5 mmol/L (3.5-5.1) 12/18/16 05:10 Chloride 100 mmol/L (98-107) 12/18/16 05:10 Carbon Dioxide 33 mmol/L (21-32) H 12/18/16 05:10 Anion Gap 9 (8-16) 12/18/16 05:10 BUN 7 mg/dL (7-18) D 12/18/16 05:10 Creatinine 0.3 mg/dL (0.55-1.02) L D 12/18/16 05:10 Creat Clearance w eGFR > 60 (>60) 12/17/16 06:10 POC Glucometer 125.82951 UNITS (()) 12/17/16 05:51 Random Glucose 106 mg/dL (74-106) 12/18/16 05:10 Lactic Acid 1.0 mmol/L (0.4-2.0) 12/10/16 22:55 Calcium 7.1 mg/dL (8.5-10.1) L 12/18/16 05:10 Phosphorus 3.2 mg/dL (2.5-4.9) 12/17/16 06:56 Magnesium 1.7 mg/dL (1.8-2.4) L 12/17/16 06:56 Total Bilirubin 0.3 mg/dL (0.2-1.0) 12/17/16 06:10 Direct Bilirubin < 0.1 mg/dL (0.0-0.2) 12/11/16 05:00 AST 28 U/L (15-37) 12/17/16 06:10 ALT 12 U/L (12-78) 12/17/16 06:10 Alkaline Phosphatase 101 U/L (45-117) 12/17/16 06:10 Total Protein 3.9 g/dl (6.4-8.2) L 12/17/16 06:10 Albumin 1.3 g/dl (3.4-5.0) L 12/17/16 06:10 Lipase 21 U/L (22-51) L 12/08/16 11:50 Problem List - Problems (1) Perforated sigmoid colon Assessment/Plan: POD8 s/p sigmoid resection with colostomy (Dwaine's procedure) for perforated sigmoid colon, possibly secondary to C. diff megacolon doing well overall but weak/deconditioned on nasal cannula O2 prn, using incentive spirometer tolerating diet, but not eating much - glucerna with meals ordered pain controlled with minimal po meds OOB to chair, commode for urination, ambulate with assist as able PT seeing patient short term rehab recommended drain with minimal output - removed and site dressed with gauze leave dressing for 24-48 hours, then keep covered daily if still leaking fluid until seals Flagyl changed to po - to complete 14 days total per ID, ok to stop Zosyn from surgical standpoint midline wound dressing changes - will start bid colostomy functioning ostomy appliance changed yesterday with pathology still pending discharge planning - SW/CM for rehab placement to continue bid midline wound packing with saline-dampened Kerlix ostomy care and teaching pt to f/u with me on discharge from rehab facility - gave my card, details in discharge plan Code(s): K63.1 - PERFORATION OF INTESTINE (NONTRAUMATIC) (2) Dilatation of colon Code(s): K59.39 - OTHER MEGACOLON (3) H/O: CVA (cerebrovascular accident) Assessment/Plan: INR 2.7 coumadin per primary team Code(s): Z86.73 - PRSNL HX OF TIA (TIA), AND CEREB INFRC W/O RESID DEFICITS (4) Hypertension Assessment/Plan: carvedilol reordered ok to resume amlodipine when indicated Code(s): I10 - ESSENTIAL (PRIMARY) HYPERTENSION Qualifiers: Hypertension type: essential hypertension Qualified Code(s): I10 - Essential (primary) hypertension; I10 - Essential (primary) hypertension; I10 - Essential (primary) hypertension (5) Diabetes mellitus type 2, noninsulin dependent Assessment/Plan: FS with SSI ok to resume metformin Code(s): E11.9 - TYPE 2 DIABETES MELLITUS WITHOUT COMPLICATIONS (6) Cancer of left breast Assessment/Plan: Arimidex resumed per family and pt, Dr. Pete does not take her current insurance - they are planning to change oncologists Code(s): C50.912 - MALIGNANT NEOPLASM OF UNSPECIFIED SITE OF LEFT FEMALE BREAST Qualifiers: Breast location: upper outer quadrant of breast Estrogen receptor status: positive Patient sex: female Qualified Code(s): C50.412 - Malignant neoplasm of upper-outer quadrant of left female breast; C50.412 - Malignant neoplasm of upper-outer quadrant of left female breast; C50.412 - Malignant neoplasm of upper-outer quadrant of left female breast; C50.412 - Malignant neoplasm of upper-outer quadrant of left female breast; Z17.0 - Estrogen receptor positive status [ER+]; Z17.0 - Estrogen receptor positive status [ER+] (7) COPD without exacerbation Assessment/Plan: nebs as indicated and prn IS and encourage coughing/expectoration defer to primary team Code(s): J44.9 - CHRONIC OBSTRUCTIVE PULMONARY DISEASE, UNSPECIFIED
[2016-12-18] MEDS ORDERED: INSULIN (NOVOLOG) ASPART 100 UNITS/ML 10ML VIAL ONE (12:31)
--- NOTE | 2016-12-18 16:19 | PN ---
Progress Note (short form) - Note Progress Note: Patient seen and examined in the Telemetry unit. Awake and alert. No abdominal pain. No CP or SOB. No acute events overnight. Intake & Output 12/15/16 12/16/16 12/17/16 12/18/16 23:59 23:59 23:59 23:59 Intake Total 3240 1410 2270 695 Output Total 2225 1725 2225 50 Balance 1015 -315 45 645 Weight 217 lb 9 oz 216 lb 6 oz 218 lb 4 oz 217 lb 8 oz Last Vital Signs Temp Pulse Resp BP Pulse Ox 98.3 F 88 22 136/84 99 12/18/16 14:00 12/18/16 14:00 12/18/16 14:00 12/18/16 14:00 12/18/16 10:40 Active Medications Acetaminophen (Tylenol -) 650 mg PO Q6H PRN PRN Reason: FEVER OR PAIN Last Admin: 12/16/16 21:23 Dose: 650 mg Albuterol Sulfate (Ventolin Hfa Inhaler -) 2 puff IH Q4H PRN PRN Reason: SHORT OF BREATH/WHEEZING Albuterol/Ipratropium (Duoneb -) 1 amp NEB Q6H PRN PRN Reason: SHORTNESS OF BREATH Last Admin: 12/17/16 18:41 Dose: 1 amp Anastrozole (Arimidex -) 1 mg PO HS [facility] Last Admin: 12/17/16 22:48 Dose: 1 mg Carvedilol (Coreg -) 6.25 mg PO BID [facility] Last Admin: 12/18/16 10:42 Dose: 6.25 mg Famotidine/Sodium Chloride (Pepcid 20 Mg Premixed Ivpb -) 50 mls @ 100 mls/hr IVPB BID [facility] Last Admin: 12/18/16 10:41 Dose: 100 mls/hr Insulin Aspart (Novolog Vial Sliding Scale -) 1 vial SQ ACHS [facility] PRN Reason: Protocol Last Admin: 12/18/16 12:00 Dose: 2 units Metronidazole (Flagyl -) 500 mg PO TID [facility] Last Admin: 12/18/16 14:42 Dose: 500 mg Nicotine (Nicoderm Patch -) 14 mg TD DAILY [facility] Last Admin: 12/18/16 10:41 Dose: 14 mg Nystatin (Nystop Powder -) 1 applic TP TID [facility] Last Admin: 10/19/17 14:44 Dose: 1 applic Ondansetron HCl (Zofran Injection) 4 mg IVPUSH Q6H PRN PRN Reason: NAUSEA Oxycodone HCl (Roxicodone -) 10 mg PO Q6H PRN PRN Reason: PAIN LEVEL 6-10 Last Admin: 12/16/16 21:22 Dose: 10 mg Zolpidem Tartrate (Ambien -) 5 mg PO HS PRN PRN Reason: INSOMNIA Last Admin: 12/17/16 21:50 Dose: 5 mg Gen: Awake and alert, NAD Heart: S1S2, regular Lung: Bibasilar rales / rhonchi Abd: soft, +ostomy pink, (+) BS Ext: + edema Laboratory Results - last 24 hr 12/16/16 12/16/16 12/16/16 11:29 16:49 21:27 WBC RBC Hgb Hct MCV MCH MCHC RDW Plt Count MPV PT with INR INR Sodium Potassium Chloride Carbon Dioxide Anion Gap BUN Creatinine POC Glucometer 71.52519 103.27580 186.75834 Random Glucose Calcium 12/17/16 12/18/16 12/18/16 05:51 05:10 05:10 WBC 7.4 RBC 3.07 L Hgb 9.6 L Hct 28.6 L MCV 93.3 MCH 31.2 MCHC 33.5 RDW 14.9 Plt Count 234 MPV 8.7 PT with INR 31.00 H INR 2.74 H Sodium Potassium Chloride Carbon Dioxide Anion Gap BUN Creatinine POC Glucometer 125.97740 Random Glucose Calcium 12/18/16 05:10 WBC RBC Hgb Hct MCV MCH MCHC RDW Plt Count MPV PT with INR INR Sodium 142 Potassium 3.5 Chloride 100 Carbon Dioxide 33 H Anion Gap 9 BUN 7 D Creatinine 0.3 L D POC Glucometer Random Glucose 106 Calcium 7.1 L ASSESSMENT AND PLAN: Perforated Sigmoid Colon Peritonitis s/p ex-lap/sigmoid resection/colostomy Sepsis COPD HTN Hyperlipidemia DM Smoker h/o CVA - PO as tolerated - Antibiotics per ID - O2 to maintain saturation - Incentive spirometry - inhaled bronchodilators - Pain control - DVT prophylaxis Dr Cormier
--- NOTE | 2016-12-18 16:45 | PN ---
Progress Note, Physician History of Present Illness: Pt w/o F, C, cough, SOB, CP. palp, N, V, abd pain. Pt is tolerating PO but not much. Pt is weak, walked with help today. - Current Medication List Current Medications: Active Medications Acetaminophen (Tylenol -) 650 mg PO Q6H PRN PRN Reason: FEVER OR PAIN Last Admin: 12/16/16 21:23 Dose: 650 mg Albuterol Sulfate (Ventolin Hfa Inhaler -) 2 puff IH Q4H PRN PRN Reason: SHORT OF BREATH/WHEEZING Albuterol/Ipratropium (Duoneb -) 1 amp NEB Q6H PRN PRN Reason: SHORTNESS OF BREATH Last Admin: 12/17/16 18:41 Dose: 1 amp Anastrozole (Arimidex -) 1 mg PO HS [facility] Last Admin: 12/17/16 22:48 Dose: 1 mg Carvedilol (Coreg -) 6.25 mg PO BID [facility] Last Admin: 12/18/16 10:42 Dose: 6.25 mg Famotidine/Sodium Chloride (Pepcid 20 Mg Premixed Ivpb -) 50 mls @ 100 mls/hr IVPB BID [facility] Last Admin: 12/18/16 10:41 Dose: 100 mls/hr Insulin Aspart (Novolog Vial Sliding Scale -) 1 vial SQ ACHS [facility] PRN Reason: Protocol Last Admin: 12/18/16 12:00 Dose: 2 units Metronidazole (Flagyl -) 500 mg PO TID [facility] Last Admin: 12/18/16 14:42 Dose: 500 mg Nicotine (Nicoderm Patch -) 14 mg TD DAILY [facility] Last Admin: 12/18/16 10:41 Dose: 14 mg Nystatin (Nystop Powder -) 1 applic TP TID [facility] Last Admin: 12/18/16 14:44 Dose: 1 applic Ondansetron HCl (Zofran Injection) 4 mg IVPUSH Q6H PRN PRN Reason: NAUSEA Oxycodone HCl (Roxicodone -) 10 mg PO Q6H PRN PRN Reason: PAIN LEVEL 6-10 Last Admin: 12/16/16 21:22 Dose: 10 mg Warfarin Sodium (Coumadin -) 3 mg PO DAILY@1800 [facility] Zolpidem Tartrate (Ambien -) 5 mg PO HS PRN PRN Reason: INSOMNIA Last Admin: 12/17/16 21:50 Dose: 5 mg - Objective Vital Signs: Vital Signs Temperature 98.3 F 12/18/16 14:00 Pulse Rate 88 12/18/16 16:00 Respiratory Rate 22 12/18/16 16:00 Blood Pressure 142/74 12/18/16 16:00 O2 Sat by Pulse Oximetry (%) 99 12/18/16 10:40 Constitutional: Yes: No Distress, Calm Cardiovascular: Yes: Regular Rate and Rhythm, S1, S2 Respiratory: Yes: Regular, Other (coarse Bilat, mainly at bases) Gastrointestinal: Yes: Normal Bowel Sounds, Soft, Tenderness (midline, improved) Edema: No Labs: CBC, BMP 12/18/16 05:10 12/18/16 05:10 INR, PTT INR 2.74 (0.82-1.09) H 12/18/16 05:10 Problem List - Problems (1) Perforated sigmoid colon Code(s): K63.1 - PERFORATION OF INTESTINE (NONTRAUMATIC) (2) Colostomy in place Code(s): Z93.3 - COLOSTOMY STATUS (3) Dilatation of colon Code(s): K59.39 - OTHER MEGACOLON (4) LLQ pain Code(s): R10.32 - LEFT LOWER QUADRANT PAIN (5) Cancer of left breast Code(s): C50.912 - MALIGNANT NEOPLASM OF UNSPECIFIED SITE OF LEFT FEMALE BREAST Qualifiers: Breast location: upper outer quadrant of breast Estrogen receptor status: positive Patient sex: female Qualified Code(s): C50.412 - Malignant neoplasm of upper-outer quadrant of left female breast; C50.412 - Malignant neoplasm of upper-outer quadrant of left female breast; C50.412 - Malignant neoplasm of upper-outer quadrant of left female breast; C50.412 - Malignant neoplasm of upper-outer quadrant of left female breast; Z17.0 - Estrogen receptor positive status [ER+]; Z17.0 - Estrogen receptor positive status [ER+] (6) Diabetes mellitus type 2, noninsulin dependent Code(s): E11.9 - TYPE 2 DIABETES MELLITUS WITHOUT COMPLICATIONS (7) H/O: CVA (cerebrovascular accident) Code(s): Z86.73 - PRSNL HX OF TIA (TIA), AND CEREB INFRC W/O RESID DEFICITS (8) Supratherapeutic INR Code(s): R79.1 - ABNORMAL COAGULATION PROFILE (9) Hypertension Code(s): I10 - ESSENTIAL (PRIMARY) HYPERTENSION Qualifiers: Hypertension type: essential hypertension Qualified Code(s): I10 - Essential (primary) hypertension; I10 - Essential (primary) hypertension; I10 - Essential (primary) hypertension (10) COPD (chronic obstructive pulmonary disease) Code(s): J44.9 - CHRONIC OBSTRUCTIVE PULMONARY DISEASE, UNSPECIFIED (11) Hypomagnesemia Code(s): E83.42 - HYPOMAGNESEMIA (12) Hypophosphatemia Code(s): E83.39 - OTHER DISORDERS OF PHOSPHORUS METABOLISM (13) Hypoalbuminemia Code(s): E88.09 - OTH DISORDERS OF PLASMA-PROTEIN METABOLISM, NEC Assessment/Plan . Pt is on tolerating PO intake. BGM with coverage for now. Pt was changed to PO Flagyl. Pt is off iV abtx Monitor and replete electrolytes. AM labs. Coumadin to reatart tonfadia, INR in AM. Case was d/w pt's nurse. Pt states that [facility] to go to [facility] Rehab
[2016-12-18] MEDS: ALBUTEROL SO4 2.5/IPRATROPIUM 0.5 INH SOL 3 ML VIAL.NEB. NEB PRN (17:32)
[2016-12-18] MEDS: WARFARIN NA 3 MG TABLET PO SCH (18:10)
[2016-12-18] MEDS: ZOLPIDEM TARTRATE 5 MG TABLET PO PRN (21:58)
[2016-12-18] MEDS: ANASTROZOLE 1 MG TABLET PO SCH (23:00)
[2016-12-19] MEDS: metroNIDAZOLE 250 MG TABLET PO SCH ×3 (05:35→22:00)
[2016-12-19] MEDS: NYSTATIN POWDER 100,000 UNITS/GM - 15 GM TOPICAL POWDER TP SCH ×3 (05:36→22:00)
[2016-12-19 06:00] LABS: MCH 30.9 pg (25.7-33.7); MCHC 33.3 g/dl (32.0-36.0); MEAN CELL VOLUME 92.9 fl (80-96); MEAN PLT VOLUME 8.7 fl (7.5-11.1); PLATELET COUNT 240 K/MM3 (134-434); RDW 14.8 % (11.6-15.6); WHITE BLOOD COUNT 5.8 K/mm3 (4.0-10.0)
[2016-12-19] MEDS: INSULIN SLIDING SCALE (NOVOLOG) 1 VIAL SQ SCH ×4 (06:01→22:08)
[2016-12-19 06:40] LABS: ALBUMIN 1.4 g/dl (3.4-5.0)
[2016-12-19 06:50] LABS: ALK PHOS 81 U/L (45-117); ANION GAP 6 (8-16); BILIRUBIN,TOTAL 0.2 mg/dL (0.2-1.0); CALCIUM 7.4 mg/dL (8.5-10.1); CO2 34 mmol/L (21-32); CREATININE 0.3 mg/dL (0.55-1.02); GLUCOSE,RANDOM 95 mg/dL (74-106); PHOSPHOROUS 3.3 mg/dL (2.5-4.9); SGOT/AST 18 U/L (15-37); SGPT/ALT 9 U/L (12-78); TOT PROT 4.3 g/dl (6.4-8.2)
--- NOTE | 2016-12-19 08:20 | EKG ---
Test Reason : Blood Pressure : / mmHG Vent. Rate : 099 BPM Atrial Rate : 099 BPM P-R Int : 154 ms QRS Dur : 092 ms QT Int : 376 ms P-R-T Axes : 075 064 148 degrees QTc Int : 482 ms POOR DATA QUALITY, INTERPRETATION MAY BE ADVERSELY AFFECTED SINUS RHYTHM WITH FUSION COMPLEXES LEFT VENTRICULAR HYPERTROPHY NONSPECIFIC ST AND T WAVE ABNORMALITY ABNORMAL ECG WHEN COMPARED WITH ECG OF 15-JAN-2013 17:01, FUSION COMPLEXES ARE NOW PRESENT Confirmed by SAMMY GEE MD ([id number]) on 12/09/2016 8:01:27 PM Also confirmed by SAMMY GEE MD ([id number]), film editor supervisor ELLA BROOKE ([id number]) on 12/19/2016 8:20:00 AM Referred By: Vi Vora Confirmed By:SAMMY GEE MD
[2016-12-19] MEDS ORDERED: PT OWN MED DRAWER 7, Y5N ONE ×2 (09:08→21:51)
[2016-12-19] MEDS: NICOTINE 14 MG/24 HOURS TOPICAL PATCH TD SCH (09:09)
[2016-12-19] MEDS: FAMOTIDINE 20 MG/50 ML IVPB 50 ML IVPB SCH ×2 (09:09→22:00)
[2016-12-19] MEDS: CARVEDILOL 6.25 MG TABLET (FP) PO SCH ×2 (09:10→22:00)
[2016-12-19] MEDS: ALBUTEROL SO4 2.5/IPRATROPIUM 0.5 INH SOL 3 ML VIAL.NEB. NEB PRN ×3 (09:30→23:26)
--- NOTE | 2016-12-19 11:33 | PN ---
Progress Note (short form) - Note Progress Note: Patient seen and examined in the Telemetry unit. Awake and alert. No abdominal pain. No CP or SOB. No acute events overnight. Minimal output from drain. Intake & Output 12/16/16 12/17/16 12/18/16 12/19/16 23:59 23:59 23:59 23:59 Intake Total 1410 2270 1095 60 Output Total 1725 2225 250 101 Balance -315 45 845 -41 Weight 216 lb 6 oz 218 lb 4 oz 217 lb 8 oz Last Vital Signs Temp Pulse Resp BP Pulse Ox 98.2 F 103 H 20 152/71 97 12/19/16 05:52 12/19/16 10:36 12/19/16 10:00 12/19/16 10:00 12/19/16 10:36 Active Medications Acetaminophen (Tylenol -) 650 mg PO Q6H PRN PRN Reason: FEVER OR PAIN Last Admin: 12/16/16 21:23 Dose: 650 mg Albuterol Sulfate (Ventolin Hfa Inhaler -) 2 puff IH Q4H PRN PRN Reason: SHORT OF BREATH/WHEEZING Albuterol/Ipratropium (Duoneb -) 1 amp NEB Q6H PRN PRN Reason: SHORTNESS OF BREATH Last Admin: 12/19/16 09:30 Dose: 1 amp Anastrozole (Arimidex -) 1 mg PO HS [facility] Last Admin: 12/18/16 23:00 Dose: 1 mg Carvedilol (Coreg -) 6.25 mg PO BID [facility] Last Admin: 12/19/16 09:10 Dose: 6.25 mg Famotidine/Sodium Chloride (Pepcid 20 Mg Premixed Ivpb -) 50 mls @ 100 mls/hr IVPB BID [facility] Last Admin: 12/19/16 09:09 Dose: 100 mls/hr Insulin Aspart (Novolog Vial Sliding Scale -) 1 vial SQ ACHS [facility] PRN Reason: Protocol Last Admin: 12/19/16 06:01 Dose: Not Given Metronidazole (Flagyl -) 500 mg PO TID [facility] Last Admin: 12/19/16 05:35 Dose: 500 mg Nicotine (Nicoderm Patch -) 14 mg TD DAILY [facility] Last Admin: 12/19/16 09:09 Dose: 14 mg Nystatin (Nystop Powder -) 1 applic TP TID [facility] Last Admin: 10/20/17 05:36 Dose: 1 applic Ondansetron HCl (Zofran Injection) 4 mg IVPUSH Q6H PRN PRN Reason: NAUSEA Oxycodone HCl (Roxicodone -) 10 mg PO Q6H PRN PRN Reason: PAIN LEVEL 6-10 Last Admin: 12/16/16 21:22 Dose: 10 mg Warfarin Sodium (Coumadin -) 3 mg PO DAILY@1800 [facility] Last Admin: 12/18/16 18:10 Dose: 3 mg Zolpidem Tartrate (Ambien -) 5 mg PO HS PRN PRN Reason: INSOMNIA Last Admin: 12/18/16 21:58 Dose: 5 mg Gen: Awake and alert, NAD Heart: S1S2, regular Lung: Bibasilar rales / rhonchi Abd: soft, +ostomy pink, (+) BS Ext: + edema Laboratory Results - last 24 hr 12/17/16 12/17/16 12/17/16 11:12 17:11 22:03 WBC RBC Hgb Hct MCV MCH MCHC RDW Plt Count MPV Sodium Potassium Chloride Carbon Dioxide Anion Gap BUN Creatinine Creat Clearance w eGFR POC Glucometer 189.90446 161.47502 165.66789 Random Glucose Calcium Phosphorus Magnesium Total Bilirubin AST ALT Alkaline Phosphatase Total Protein Albumin 12/18/16 12/18/16 12/18/16 06:11 11:53 16:55 WBC RBC Hgb Hct MCV MCH MCHC RDW Plt Count MPV Sodium Potassium Chloride Carbon Dioxide Anion Gap BUN Creatinine Creat Clearance w eGFR POC Glucometer 141.20851 160.62998 178.73998 Random Glucose Calcium Phosphorus Magnesium Total Bilirubin AST ALT Alkaline Phosphatase Total Protein Albumin 12/19/16 12/19/16 05:00 05:00 WBC 5.8 RBC 3.02 L Hgb 9.3 L Hct 28.0 L MCV 92.9 MCH 30.9 MCHC 33.3 RDW 14.8 Plt Count 240 MPV 8.7 Sodium 141 Potassium 3.2 L Chloride 101 Carbon Dioxide 34 H Anion Gap 6 L BUN 6 L Creatinine 0.3 L Creat Clearance w eGFR > 60 POC Glucometer Random Glucose 95 Calcium 7.4 L Phosphorus 3.3 Magnesium 2.0 Total Bilirubin 0.2 D AST 18 D ALT 9 L D Alkaline Phosphatase 81 Total Protein 4.3 L Albumin 1.4 L ASSESSMENT AND PLAN: Perforated Sigmoid Colon Peritonitis s/p ex-lap/sigmoid resection/colostomy Sepsis COPD HTN Hyperlipidemia DM Smoker h/o CVA - Replace K+ - PO as tolerated - Antibiotics per ID - O2 to maintain saturation - Incentive spirometry - inhaled bronchodilators - Pain control - DVT prophylaxis - PT / DC planning Dr Cormier
[2016-12-19] MEDS ORDERED: INSULIN (NOVOLOG) ASPART 100 UNITS/ML 10ML VIAL ONE (11:36)
[2016-12-19] MEDS ORDERED: POTASSIUM CHLORIDE TABS 20 MEQ TABLET.ER (FP) PO ONE (12:15)
--- NOTE | 2016-12-19 15:59 | PN ---
Progress Note, Physician Chief Complaint: abdominal distention, LLQ pain History of Present Illness: POD9 s/p sigmoid resection with colostomy (Dwaine's procedure) for perforation of sigmoid, possibly secondary to C. diff megacolon pt seen and examined in bed shortly ago passed loose/liquidy bowel movement from anus doing well, pain minimal and mainly with getting OOB/ambulating, not using meds much at all nathaly diet and Glucerna, feeling a little stronger but still weak overall VALE drain removed yesterday, dressing dry colostomy with brown mostly liquid stool, 240 yesterday, 100 overnight, bag with some in it now SW/CM sent referrals for SNF - Current Medication List Current Medications: Active Medications Acetaminophen (Tylenol -) 650 mg PO Q6H PRN PRN Reason: FEVER OR PAIN Last Admin: 12/16/16 21:23 Dose: 650 mg Albuterol Sulfate (Ventolin Hfa Inhaler -) 2 puff IH Q4H PRN PRN Reason: SHORT OF BREATH/WHEEZING Albuterol/Ipratropium (Duoneb -) 1 amp NEB Q6H PRN PRN Reason: SHORTNESS OF BREATH Last Admin: 12/19/16 09:30 Dose: 1 amp Anastrozole (Arimidex -) 1 mg PO HS [facility] Last Admin: 12/18/16 23:00 Dose: 1 mg Carvedilol (Coreg -) 6.25 mg PO BID [facility] Last Admin: 12/19/16 09:10 Dose: 6.25 mg Famotidine/Sodium Chloride (Pepcid 20 Mg Premixed Ivpb -) 50 mls @ 100 mls/hr IVPB BID [facility] Last Admin: 12/19/16 09:09 Dose: 100 mls/hr Insulin Aspart (Novolog Vial Sliding Scale -) 1 vial SQ ACHS [facility] PRN Reason: Protocol Last Admin: 12/19/16 11:37 Dose: 4 units Metronidazole (Flagyl -) 500 mg PO TID [facility] Last Admin: 12/19/16 14:39 Dose: 500 mg Nicotine (Nicoderm Patch -) 14 mg TD DAILY [facility] Last Admin: 12/19/16 09:09 Dose: 14 mg Nystatin (Nystop Powder -) 1 applic TP TID [facility] Last Admin: 12/19/16 14:40 Dose: 1 applic Ondansetron HCl (Zofran Injection) 4 mg IVPUSH Q6H PRN PRN Reason: NAUSEA Oxycodone HCl (Roxicodone -) 10 mg PO Q6H PRN PRN Reason: PAIN LEVEL 6-10 Last Admin: 12/16/16 21:22 Dose: 10 mg Warfarin Sodium (Coumadin -) 3 mg PO DAILY@1800 [facility] Last Admin: 12/18/16 18:10 Dose: 3 mg Zolpidem Tartrate (Ambien -) 5 mg PO HS PRN PRN Reason: INSOMNIA Last Admin: 12/18/16 21:58 Dose: 5 mg - Objective Vital Signs: Vital Signs Temperature 98.2 F 12/19/16 05:52 Pulse Rate 103 H 12/19/16 10:36 Respiratory Rate 20 12/19/16 10:00 Blood Pressure 152/71 12/19/16 10:00 O2 Sat by Pulse Oximetry (%) 97 12/19/16 10:36 Vital Signs Period Temp Pulse Resp BP Sys/Holt Pulse Ox Last 24 Hr 98 F-98.2 F 61-103 - 128-152/69-75 97-98 Intake & Output 12/18/16 12/19/16 12/19/16 23:59 07:59 15:59 Intake Total 400 60 Output Total 200 101 Balance 200 -41 Intake: IV 200 10 D5-1/2Ns+40 Meq KCl - 1, 200 000 ml @ 50 mls/hr IV ASDIR [facility] Rx#:[id number] SALINE LOCK # 2 10 IVPB 150 50 Oral 50 Output: Drainage 200 100 colostomy 200 100 Urine 1 Void 1 Other: Voiding Method Diaper Diaper # Unmeasured Voids Void 1 Bowel Movement No: COLOSTOMY Constitutional: Yes: No Distress, Calm, Obese Gastrointestinal: Yes: Soft, Abdomen, Obese, Tenderness (mild LLQ), Other ( colostomy patent and productive of liquid brown stool with some mushy content). No: Distention ...Rectal Exam: Yes: Other (liquid brown stool in diaper) Extremities: No: Cool, Cyanosis Integumentary: Yes: Incision (midline). No: Rash Wound/Incision: Yes: Maria Eugenia Intact (at umbilicus), Dressing Dry and Intact, Dressing Removed (and packing changed - centeno granulating a little more, still with some strands of slough at outer edges but improving), Unapproximated ( midline) Neurological: Yes: Alert, Oriented Labs: CBC, BMP 12/19/16 05:00 12/19/16 05:00 INR, PTT INR 2.74 (0.82-1.09) H 12/18/16 05:10 Problem List - Problems (1) Perforated sigmoid colon Assessment/Plan: POD9 s/p sigmoid resection with colostomy (Dwaine's procedure) for perforated sigmoid colon, possibly secondary to C. diff megacolon pathology with ischemic colitis, associated ulceration and perforation, areas of diverticulosis and diverticulitis, no malignancy, no pseudomembranes (it is filed under wrong D#) doing well overall but weak/deconditioned on nasal cannula O2 prn, using incentive spirometer tolerating diet, but not eating much - glucerna with meals pain controlled with minimal po meds OOB to chair, needs to use commode for urination, ambulate with assist as able PT seeing patient short term rehab planned - referrals have been made drain removed, dressing dry Flagyl changed to po - to complete 14 days total per Monica BRANCHsymadi off midline wound dressing changes bid colostomy functioning evacuated stool from distal rectal stump - not unexpected discharge planning - SW/CM for rehab placement to continue bid midline wound packing with saline-dampened Kerlix ostomy care and teaching pt to f/u with me on discharge from rehab facility - gave my card, details in discharge plan Code(s): K63.1 - PERFORATION OF INTESTINE (NONTRAUMATIC) (2) Dilatation of colon Code(s): K59.39 - OTHER MEGACOLON (3) H/O: CVA (cerebrovascular accident) Assessment/Plan: INR pending coumadin per primary team Code(s): Z86.73 - PRSNL HX OF TIA (TIA), AND CEREB INFRC W/O RESID DEFICITS (4) Hypertension Assessment/Plan: carvedilol reordered ok to resume amlodipine when indicated Code(s): I10 - ESSENTIAL (PRIMARY) HYPERTENSION Qualifiers: Hypertension type: essential hypertension Qualified Code(s): I10 - Essential (primary) hypertension; I10 - Essential (primary) hypertension; I10 - Essential (primary) hypertension (5) Diabetes mellitus type 2, noninsulin dependent Assessment/Plan: FS with SSI ok to resume metformin Code(s): E11.9 - TYPE 2 DIABETES MELLITUS WITHOUT COMPLICATIONS (6) Cancer of left breast Assessment/Plan: Arimidex resumed per family and pt, Dr. Pete does not take her current insurance - they are planning to change oncologists Code(s): C50.912 - MALIGNANT NEOPLASM OF UNSPECIFIED SITE OF LEFT FEMALE BREAST Qualifiers: Breast location: upper outer quadrant of breast Estrogen receptor status: positive Patient sex: female Qualified Code(s): C50.412 - Malignant neoplasm of upper-outer quadrant of left female breast; C50.412 - Malignant neoplasm of upper-outer quadrant of left female breast; C50.412 - Malignant neoplasm of upper-outer quadrant of left female breast; C50.412 - Malignant neoplasm of upper-outer quadrant of left female breast; Z17.0 - Estrogen receptor positive status [ER+]; Z17.0 - Estrogen receptor positive status [ER+] (7) COPD without exacerbation Assessment/Plan: nebs as indicated and prn IS and encourage coughing/expectoration defer to primary team Code(s): J44.9 - CHRONIC OBSTRUCTIVE PULMONARY DISEASE, UNSPECIFIED
[2016-12-19 17:36] LABS: INR 2.13 (0.82-1.09); PROTHROMBIN TIME (PATIENT) 24.1 SEC (9.98-11.88)
--- NOTE | 2016-12-19 18:33 | PN ---
Progress Note, Physician History of Present Illness: Pt w/o F, C, cough, SOB, CP. palp, N, V, abd pain. Pt is tolerating PO, improved. - Current Medication List Current Medications: Active Medications Acetaminophen (Tylenol -) 650 mg PO Q6H PRN PRN Reason: FEVER OR PAIN Last Admin: 12/16/16 21:23 Dose: 650 mg Albuterol Sulfate (Ventolin Hfa Inhaler -) 2 puff IH Q4H PRN PRN Reason: SHORT OF BREATH/WHEEZING Albuterol/Ipratropium (Duoneb -) 1 amp NEB Q6H PRN PRN Reason: SHORTNESS OF BREATH Last Admin: 12/19/16 09:30 Dose: 1 amp Anastrozole (Arimidex -) 1 mg PO HS [facility] Last Admin: 12/18/16 23:00 Dose: 1 mg Carvedilol (Coreg -) 6.25 mg PO BID [facility] Last Admin: 12/19/16 09:10 Dose: 6.25 mg Famotidine/Sodium Chloride (Pepcid 20 Mg Premixed Ivpb -) 50 mls @ 100 mls/hr IVPB BID [facility] Last Admin: 12/19/16 09:09 Dose: 100 mls/hr Insulin Aspart (Novolog Vial Sliding Scale -) 1 vial SQ ACHS [facility] PRN Reason: Protocol Last Admin: 12/19/16 17:38 Dose: 2 units Metronidazole (Flagyl -) 500 mg PO TID [facility] Last Admin: 12/19/16 14:39 Dose: 500 mg Nicotine (Nicoderm Patch -) 14 mg TD DAILY [facility] Last Admin: 12/19/16 09:09 Dose: 14 mg Nystatin (Nystop Powder -) 1 applic TP TID [facility] Last Admin: 12/19/16 14:40 Dose: 1 applic Ondansetron HCl (Zofran Injection) 4 mg IVPUSH Q6H PRN PRN Reason: NAUSEA Oxycodone HCl (Roxicodone -) 10 mg PO Q6H PRN PRN Reason: PAIN LEVEL 6-10 Last Admin: 12/16/16 21:22 Dose: 10 mg Warfarin Sodium (Coumadin -) 3 mg PO DAILY@1800 [facility] Last Admin: 12/18/16 18:10 Dose: 3 mg Zolpidem Tartrate (Ambien -) 5 mg PO HS PRN PRN Reason: INSOMNIA Last Admin: 12/18/16 21:58 Dose: 5 mg - Objective Vital Signs: Vital Signs Temperature 98.8 F 12/19/16 18:00 Pulse Rate 108 H 12/19/16 18:00 Respiratory Rate 18 12/19/16 18:00 Blood Pressure 141/93 12/19/16 18:00 O2 Sat by Pulse Oximetry (%) 97 12/19/16 10:36 Constitutional: Yes: No Distress, Calm Cardiovascular: Yes: Regular Rate and Rhythm, S1, S2 Respiratory: Yes: Regular, Other (coarse at bases). No: Rhonchi Gastrointestinal: Yes: Normal Bowel Sounds, Soft, Other (colostomy bag). No: Tenderness Edema: No Neurological: Yes: Alert, Oriented Labs: CBC, BMP 12/19/16 05:00 12/19/16 05:00 INR, PTT INR 2.74 (0.82-1.09) H 12/18/16 05:10 Problem List - Problems (1) Perforated sigmoid colon Code(s): K63.1 - PERFORATION OF INTESTINE (NONTRAUMATIC) (2) Colostomy in place Code(s): Z93.3 - COLOSTOMY STATUS (3) Dilatation of colon Code(s): K59.39 - OTHER MEGACOLON (4) LLQ pain Code(s): R10.32 - LEFT LOWER QUADRANT PAIN (5) Cancer of left breast Code(s): C50.912 - MALIGNANT NEOPLASM OF UNSPECIFIED SITE OF LEFT FEMALE BREAST Qualifiers: Breast location: upper outer quadrant of breast Estrogen receptor status: positive Patient sex: female Qualified Code(s): C50.412 - Malignant neoplasm of upper-outer quadrant of left female breast; C50.412 - Malignant neoplasm of upper-outer quadrant of left female breast; C50.412 - Malignant neoplasm of upper-outer quadrant of left female breast; C50.412 - Malignant neoplasm of upper-outer quadrant of left female breast; Z17.0 - Estrogen receptor positive status [ER+]; Z17.0 - Estrogen receptor positive status [ER+] (6) Diabetes mellitus type 2, noninsulin dependent Code(s): E11.9 - TYPE 2 DIABETES MELLITUS WITHOUT COMPLICATIONS (7) H/O: CVA (cerebrovascular accident) Code(s): Z86.73 - PRSNL HX OF TIA (TIA), AND CEREB INFRC W/O RESID DEFICITS (8) Supratherapeutic INR Code(s): R79.1 - ABNORMAL COAGULATION PROFILE (9) Hypertension Code(s): I10 - ESSENTIAL (PRIMARY) HYPERTENSION Qualifiers: Hypertension type: essential hypertension Qualified Code(s): I10 - Essential (primary) hypertension; I10 - Essential (primary) hypertension; I10 - Essential (primary) hypertension (10) COPD (chronic obstructive pulmonary disease) Code(s): J44.9 - CHRONIC OBSTRUCTIVE PULMONARY DISEASE, UNSPECIFIED (11) Hypomagnesemia Code(s): E83.42 - HYPOMAGNESEMIA (12) Hypophosphatemia Code(s): E83.39 - OTHER DISORDERS OF PHOSPHORUS METABOLISM (13) Hypoalbuminemia Code(s): E88.09 - OTH DISORDERS OF PLASMA-PROTEIN METABOLISM, NEC (14) Hypokalemia Code(s): E87.6 - HYPOKALEMIA Assessment/Plan . Pt is on tolerating PO intake. BGM with coverage for now. Pt was changed to PO Flagyl. Pt is off iV abtx Monitor and replete electrolytes. AM labs. Coumadin to be restarted tonight, INR in AM. Case was d/w pt's nurse. Pt states that wants to go to inpatient Rehab
[2016-12-19] MEDS: ANASTROZOLE 1 MG TABLET PO SCH (22:00)
[2016-12-19] MEDS: WARFARIN NA 3 MG TABLET PO SCH (22:00)
[2016-12-19] MEDS ORDERED: HEMOQUE TEST 1 EACH EACH ONE (22:02)
[2016-12-19] MEDS: ZOLPIDEM TARTRATE 5 MG TABLET PO PRN (22:02)
[2016-12-19] MEDS ORDERED: WARFARIN NA 2 MG TABLET (UD) PO ONE (23:48)
[2016-12-20] MEDS ORDERED: WARFARIN NA 1 MG TABLET (FP) PO ONE (00:04)
[2016-12-20] MEDS: ACETAMINOPHEN 325 MG TABLET (FP) PO PRN (00:15)
[2016-12-20 06:11] LABS: INR 1.88 (0.82-1.09); PROTHROMBIN TIME (PATIENT) 21.2 SEC (9.98-11.88)
[2016-12-20 06:40] LABS: ANION GAP 5 (8-16); CALCIUM 7.6 mg/dL (8.5-10.1); CO2 35 mmol/L (21-32); CREATININE 0.3 mg/dL (0.55-1.02); GLUCOSE,RANDOM 100 mg/dL (74-106)
[2016-12-20] MEDS: NYSTATIN POWDER 100,000 UNITS/GM - 15 GM TOPICAL POWDER TP SCH ×3 (07:23→21:05)
[2016-12-20] MEDS: metroNIDAZOLE 250 MG TABLET PO SCH ×3 (07:23→21:05)
[2016-12-20] MEDS: INSULIN SLIDING SCALE (NOVOLOG) 1 VIAL SQ SCH ×4 (07:23→21:06)
[2016-12-20] MEDS: NICOTINE 14 MG/24 HOURS TOPICAL PATCH TD SCH (09:58)
[2016-12-20] MEDS ORDERED: PT OWN MED DRAWER 7, Y5N ONE (10:00)
[2016-12-20] MEDS: CARVEDILOL 6.25 MG TABLET (FP) PO SCH ×2 (10:01→21:05)
[2016-12-20] MEDS: FAMOTIDINE 20 MG/50 ML IVPB 50 ML IVPB SCH (10:01)
[2016-12-20] MEDS: ALBUTEROL SO4 2.5/IPRATROPIUM 0.5 INH SOL 3 ML VIAL.NEB. NEB PRN (10:35)
--- NOTE | 2016-12-20 12:22 | PN ---
Progress Note, Physician History of Present Illness: Pt w/o F, C, cough, SOB, CP. palp, N, V, abd pain. Pt is tolerating PO intake. - Current Medication List Current Medications: Active Medications Acetaminophen (Tylenol -) 650 mg PO Q6H PRN PRN Reason: FEVER OR PAIN Last Admin: 12/20/16 00:15 Dose: 650 mg Albuterol Sulfate (Ventolin Hfa Inhaler -) 2 puff IH Q4H PRN PRN Reason: SHORT OF BREATH/WHEEZING Albuterol/Ipratropium (Duoneb -) 1 amp NEB Q6H PRN PRN Reason: SHORTNESS OF BREATH Last Admin: 12/20/16 10:35 Dose: 1 amp Anastrozole (Arimidex -) 1 mg PO HS [facility] Last Admin: 12/19/16 22:00 Dose: 1 mg Carvedilol (Coreg -) 6.25 mg PO BID [facility] Last Admin: 12/20/16 10:01 Dose: 6.25 mg Famotidine/Sodium Chloride (Pepcid 20 Mg Premixed Ivpb -) 50 mls @ 100 mls/hr IVPB BID [facility] Last Admin: 12/20/16 10:01 Dose: 100 mls/hr Insulin Aspart (Novolog Vial Sliding Scale -) 1 vial SQ ACHS [facility] PRN Reason: Protocol Last Admin: 12/20/16 11:30 Dose: 4 units Metronidazole (Flagyl -) 500 mg PO TID [facility] Last Admin: 12/20/16 07:23 Dose: 500 mg Nicotine (Nicoderm Patch -) 14 mg TD DAILY [facility] Last Admin: 12/20/16 09:58 Dose: 14 mg Nystatin (Nystop Powder -) 1 applic TP TID [facility] Last Admin: 12/20/16 07:23 Dose: 1 applic Ondansetron HCl (Zofran Injection) 4 mg IVPUSH Q6H PRN PRN Reason: NAUSEA Oxycodone HCl (Roxicodone -) 10 mg PO Q6H PRN PRN Reason: PAIN LEVEL 6-10 Last Admin: 12/16/16 21:22 Dose: 10 mg Warfarin Sodium (Coumadin -) 3 mg PO DAILY@1800 [facility] Last Admin: 12/19/16 22:00 Dose: 3 mg Warfarin Sodium (Coumadin -) 3 mg PO DAILY@1800 [facility] Zolpidem Tartrate (Ambien -) 5 mg PO HS PRN PRN Reason: INSOMNIA Last Admin: 12/19/16 22:02 Dose: 5 mg - Objective Vital Signs: Vital Signs Temperature 98.9 F 12/20/16 02:00 Pulse Rate 97 H 12/20/16 10:34 Respiratory Rate 21 12/20/16 10:00 Blood Pressure 144/71 12/20/16 10:00 O2 Sat by Pulse Oximetry (%) 99 12/20/16 10:34 Constitutional: Yes: No Distress, Calm Cardiovascular: Yes: Regular Rate and Rhythm, S1, S2 Respiratory: Yes: Regular, Rales (minimal) Gastrointestinal: Yes: Normal Bowel Sounds, Soft. No: Tenderness Edema: No Neurological: Yes: Alert, Oriented Labs: CBC, BMP 12/19/16 05:00 12/20/16 05:45 INR, PTT INR 1.88 (0.82-1.09) H 12/20/16 05:45 Problem List - Problems (1) Perforated sigmoid colon Code(s): K63.1 - PERFORATION OF INTESTINE (NONTRAUMATIC) (2) Colostomy in place Code(s): Z93.3 - COLOSTOMY STATUS (3) Dilatation of colon Code(s): K59.39 - OTHER MEGACOLON (4) LLQ pain Code(s): R10.32 - LEFT LOWER QUADRANT PAIN (5) Cancer of left breast Code(s): C50.912 - MALIGNANT NEOPLASM OF UNSPECIFIED SITE OF LEFT FEMALE BREAST Qualifiers: Breast location: upper outer quadrant of breast Estrogen receptor status: positive Patient sex: female Qualified Code(s): C50.412 - Malignant neoplasm of upper-outer quadrant of left female breast; C50.412 - Malignant neoplasm of upper-outer quadrant of left female breast; C50.412 - Malignant neoplasm of upper-outer quadrant of left female breast; C50.412 - Malignant neoplasm of upper-outer quadrant of left female breast; Z17.0 - Estrogen receptor positive status [ER+]; Z17.0 - Estrogen receptor positive status [ER+] (6) Diabetes mellitus type 2, noninsulin dependent Code(s): E11.9 - TYPE 2 DIABETES MELLITUS WITHOUT COMPLICATIONS (7) H/O: CVA (cerebrovascular accident) Code(s): Z86.73 - PRSNL HX OF TIA (TIA), AND CEREB INFRC W/O RESID DEFICITS (8) Supratherapeutic INR Code(s): R79.1 - ABNORMAL COAGULATION PROFILE (9) Hypertension Code(s): I10 - ESSENTIAL (PRIMARY) HYPERTENSION Qualifiers: Hypertension type: essential hypertension Qualified Code(s): I10 - Essential (primary) hypertension; I10 - Essential (primary) hypertension; I10 - Essential (primary) hypertension (10) COPD (chronic obstructive pulmonary disease) Code(s): J44.9 - CHRONIC OBSTRUCTIVE PULMONARY DISEASE, UNSPECIFIED (11) Hypomagnesemia Code(s): E83.42 - HYPOMAGNESEMIA (12) Hypophosphatemia Code(s): E83.39 - OTHER DISORDERS OF PHOSPHORUS METABOLISM (13) Hypoalbuminemia Code(s): E88.09 - OTH DISORDERS OF PLASMA-PROTEIN METABOLISM, NEC (14) Hypokalemia Code(s): E87.6 - HYPOKALEMIA (15) Subtherapeutic anticoagulation Assessment/Plan: extra Coumadin tonight. INR in AM Code(s): Z51.81 - ENCOUNTER FOR THERAPEUTIC DRUG LEVEL MONITORING Z79.01 - PRISON (CURRENT) USE OF 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 Pt is on tolerating PO intake. BGM with coverage for now. Pt was changed to PO Flagyl. Pt is off iV abtx Monitor and replete electrolytes. AM labs. Coumadin to be adjusted tonight, INR in AM. Case was d/w pt's nurse. Pt states that wants to go to inpatient Rehab; to w/u with CM
--- NOTE | 2016-12-20 17:10 | PN ---
Progress Note, Physician Chief Complaint: abdominal distention, LLQ pain History of Present Illness: POD10 s/p sigmoid resection with colostomy (Dwaine's procedure) for perforation of sigmoid, possibly secondary to C. diff megacolon pt seen and examined in bed has been OOB to chair for an hour ealier, not ambulated today doing well, pain minimal nathaly diet and Glucerna VALE drain site dressing dry colostomy with brown mostly liquid stool, 400 yesterday, 250 so far today, bag with some in it now urinating mostly in diaper SW/CM sent referrals for SNF - Current Medication List Current Medications: Active Medications Acetaminophen (Tylenol -) 650 mg PO Q6H PRN PRN Reason: FEVER OR PAIN Last Admin: 12/20/16 00:15 Dose: 650 mg Albuterol Sulfate (Ventolin Hfa Inhaler -) 2 puff IH Q4H PRN PRN Reason: SHORT OF BREATH/WHEEZING Albuterol/Ipratropium (Duoneb -) 1 amp NEB Q6H PRN PRN Reason: SHORTNESS OF BREATH Last Admin: 12/20/16 10:35 Dose: 1 amp Anastrozole (Arimidex -) 1 mg PO HS [facility] Last Admin: 12/19/16 22:00 Dose: 1 mg Carvedilol (Coreg -) 6.25 mg PO BID [facility] Last Admin: 12/20/16 10:01 Dose: 6.25 mg Famotidine/Sodium Chloride (Pepcid 20 Mg Premixed Ivpb -) 50 mls @ 100 mls/hr IVPB BID [facility] Last Admin: 12/20/16 10:01 Dose: 100 mls/hr Insulin Aspart (Novolog Vial Sliding Scale -) 1 vial SQ ACHS [facility] PRN Reason: Protocol Last Admin: 12/20/16 11:30 Dose: 4 units Metronidazole (Flagyl -) 500 mg PO TID [facility] Last Admin: 12/20/16 14:07 Dose: 500 mg Nicotine (Nicoderm Patch -) 14 mg TD DAILY [facility] Last Admin: 12/20/16 09:58 Dose: 14 mg Nystatin (Nystop Powder -) 1 applic TP TID [facility] Last Admin: 12/20/16 14:10 Dose: 1 applic Ondansetron HCl (Zofran Injection) 4 mg IVPUSH Q6H PRN PRN Reason: NAUSEA Oxycodone HCl (Roxicodone -) 10 mg PO Q6H PRN PRN Reason: PAIN LEVEL 6-10 Last Admin: 12/16/16 21:22 Dose: 10 mg Warfarin Sodium (Coumadin -) 3 mg PO DAILY@1800 [facility] Zolpidem Tartrate (Ambien -) 5 mg PO HS PRN PRN Reason: INSOMNIA Last Admin: 12/19/16 22:02 Dose: 5 mg - Objective Vital Signs: Vital Signs Temperature 98.0 F 12/20/16 14:00 Pulse Rate 102 H 12/20/16 14:00 Respiratory Rate 18 12/20/16 14:00 Blood Pressure 136/63 12/20/16 14:00 O2 Sat by Pulse Oximetry (%) 99 12/20/16 12:00 Constitutional: Yes: No Distress, Calm, Obese Respiratory: Yes: Regular, On Nasal O2 Gastrointestinal: Yes: Soft, Abdomen, Obese, Other (colostomy pink, patent, productive of gas and mostly liquid stool; RLQ drain site without leakage). No : Distention, Tenderness Genitourinary: Yes: Incontinence. No: [place] Present Extremities: No: Cool, Cyanosis Integumentary: Yes: Incision (midline), Rash (mild intertriginous in pannus/ groin folds; some adhesive-irritated skin around midline and RLQ dressing areas) Wound/Incision: Yes: [place] Intact (at umbilicus), Dressing Removed (and packing changed; wounds clean, mostly pink/red, granulating well, still with a little slough in base of lower wound, overall improving nicely), Unapproximated (midline) Neurological: Yes: Alert, Oriented Labs: CBC, BMP 12/19/16 05:00 12/20/16 05:45 INR, PTT INR 1.88 (0.82-1.09) H 12/20/16 05:45 Problem List - Problems (1) Perforated sigmoid colon Assessment/Plan: POD10 s/p sigmoid resection with colostomy (Dwaine's procedure) for perforated sigmoid colon, possibly secondary to C. diff megacolon pathology with ischemic colitis, associated ulceration and perforation, areas of diverticulosis and diverticulitis, no malignancy, no pseudomembranes (it is filed under wrong D#) doing well overall but weak/deconditioned on nasal cannula O2 prn, using incentive spirometer periodically tolerating diet, but not eating much - glucerna with meals, prefers strawberry pain controlled, occasional po meds instructed patient and nurses that she is to use commode for urination, OOB to chair multiple times daily, ambulate with assist as able PT seeing patient during week rehab planned - referrals have been made for SNF drain dressing site dry, small gauze and tape replaced - if dry tomorrow, can leave open to air Flagyl changed to po - to complete 14 days total per ID (through 12/22) midline wound dressing changes bid no tape on irritated skin colostomy functioning discharge planning - SW/CM for rehab placement to continue bid midline wound packing with saline-dampened Kerlix, gauze and ABD ostomy care and teaching pt to f/u with me on discharge from rehab facility - gave my card, details in discharge plan Code(s): K63.1 - PERFORATION OF INTESTINE (NONTRAUMATIC) (2) Dilatation of colon Assessment/Plan: etiology still unclear - had inflamed segment of sigmoid with perforation at necrotic patch but no significant mass or any purulence could have been C diff related after Augmentin 2 wks ago, but no longer having diarrhea C diff results noted on contact precautions continuing Flagyl to complete course Code(s): K59.39 - OTHER MEGACOLON (3) H/O: CVA (cerebrovascular accident) Assessment/Plan: INR 1.88 (dip from day it was held) coumadin per primary team Code(s): Z86.73 - PRSNL HX OF TIA (TIA), AND CEREB INFRC W/O RESID DEFICITS (4) Hypertension Assessment/Plan: carvedilol reordered ok to resume amlodipine when indicated Code(s): I10 - ESSENTIAL (PRIMARY) HYPERTENSION Qualifiers: Hypertension type: essential hypertension Qualified Code(s): I10 - Essential (primary) hypertension; I10 - Essential (primary) hypertension; I10 - Essential (primary) hypertension (5) Diabetes mellitus type 2, noninsulin dependent Assessment/Plan: FS with SSI ok to resume metformin Code(s): E11.9 - TYPE 2 DIABETES MELLITUS WITHOUT COMPLICATIONS (6) Cancer of left breast Assessment/Plan: Arimidex resumed per family and pt, Dr. Pete does not take her current insurance - they are planning to change oncologists Code(s): C50.912 - MALIGNANT NEOPLASM OF UNSPECIFIED SITE OF LEFT FEMALE BREAST Qualifiers: Breast location: upper outer quadrant of breast Estrogen receptor status: positive Patient sex: female Qualified Code(s): C50.412 - Malignant neoplasm of upper-outer quadrant of left female breast; C50.412 - Malignant neoplasm of upper-outer quadrant of left female breast; C50.412 - Malignant neoplasm of upper-outer quadrant of left female breast; C50.412 - Malignant neoplasm of upper-outer quadrant of left female breast; Z17.0 - Estrogen receptor positive status [ER+]; Z17.0 - Estrogen receptor positive status [ER+] (7) COPD without exacerbation Assessment/Plan: nebs as indicated and prn IS and encourage coughing/expectoration defer to primary team Code(s): J44.9 - CHRONIC OBSTRUCTIVE PULMONARY DISEASE, UNSPECIFIED
[2016-12-20] MEDS: WARFARIN NA 3 MG TABLET PO SCH (17:43)
[2016-12-20] MEDS: ANASTROZOLE 1 MG TABLET PO SCH (21:04)
[2016-12-20] MEDS: ZOLPIDEM TARTRATE 5 MG TABLET PO PRN (21:05)
[2016-12-21] MEDS: NYSTATIN POWDER 100,000 UNITS/GM - 15 GM TOPICAL POWDER TP SCH ×3 (05:51→21:26)
[2016-12-21] MEDS: metroNIDAZOLE 250 MG TABLET PO SCH ×3 (05:53→21:26)
[2016-12-21] MEDS: ALBUTEROL SO4 2.5/IPRATROPIUM 0.5 INH SOL 3 ML VIAL.NEB. NEB PRN ×2 (05:53→18:05)
[2016-12-21] MEDS: INSULIN SLIDING SCALE (NOVOLOG) 1 VIAL SQ SCH ×4 (06:17→21:26)
[2016-12-21 08:20] LABS: ANION GAP 7 (8-16); CALCIUM 7.5 mg/dL (8.5-10.1); CO2 33 mmol/L (21-32); CREATININE 0.2 mg/dL (0.55-1.02); GLUCOSE,RANDOM 118 mg/dL (74-106)
[2016-12-21 08:21] LABS: MCH 30.7 pg (25.7-33.7); MEAN CELL VOLUME 93.2 fl (80-96); MEAN PLT VOLUME 8.7 fl (7.5-11.1); PLATELET COUNT 279 K/MM3 (134-434); WHITE BLOOD COUNT 4.8 K/mm3 (4.0-10.0)
[2016-12-21 08:43] LABS: INR 1.73 (0.82-1.09); PROTHROMBIN TIME (PATIENT) 19.5 SEC (9.98-11.88)
[2016-12-21] MEDS ORDERED: PT OWN MED DRAWER 7, Y5N ONE ×2 (09:48→21:16)
[2016-12-21] MEDS: PANTOPRAZOLE 40 MG TABLET (FP) PO SCH (09:56)
[2016-12-21] MEDS: CARVEDILOL 6.25 MG TABLET (FP) PO SCH ×2 (09:56→21:26)
[2016-12-21] MEDS: NICOTINE 14 MG/24 HOURS TOPICAL PATCH TD SCH (09:57)
--- NOTE | 2016-12-21 11:19 | PN ---
Progress Note, Physician Chief Complaint: abdominal distention, LLQ pain History of Present Illness: POD11 s/p sigmoid resection with colostomy (Dwaine's procedure) for perforation of sigmoid, possibly secondary to C. diff megacolon pt seen and examined in bed will be out of bed shortly, was awaiting dressing change doing well, no pain nathaly diet and Glucerna, c/o bland food VALE drain site dressing dry colostomy with brown mostly liquid stool, 550 yesterday, 300 overnight, bag with stool in it voids unmeasured SW/CM sent referrals for SNF - Current Medication List Current Medications: Active Medications Acetaminophen (Tylenol -) 650 mg PO Q6H PRN PRN Reason: FEVER OR PAIN Last Admin: 12/20/16 00:15 Dose: 650 mg Albuterol Sulfate (Ventolin Hfa Inhaler -) 2 puff IH Q4H PRN PRN Reason: SHORT OF BREATH/WHEEZING Albuterol/Ipratropium (Duoneb -) 1 amp NEB Q6H PRN PRN Reason: SHORTNESS OF BREATH Last Admin: 12/21/16 05:53 Dose: 1 amp Anastrozole (Arimidex -) 1 mg PO HS [facility] Last Admin: 12/20/16 21:04 Dose: 1 mg Carvedilol (Coreg -) 6.25 mg PO BID [facility] Last Admin: 12/21/16 09:56 Dose: 6.25 mg Insulin Aspart (Novolog Vial Sliding Scale -) 1 vial SQ ACHS [facility] PRN Reason: Protocol Last Admin: 12/21/16 06:17 Dose: Not Given Metronidazole (Flagyl -) 500 mg PO TID [facility] Last Admin: 12/21/16 05:53 Dose: 500 mg Nicotine (Nicoderm Patch -) 14 mg TD DAILY [facility] Last Admin: 12/21/16 09:57 Dose: 14 mg Nystatin (Nystop Powder -) 1 applic TP TID [facility] Last Admin: 12/21/16 05:51 Dose: 1 applic Ondansetron HCl (Zofran Injection) 4 mg IVPUSH Q6H PRN PRN Reason: NAUSEA Oxycodone HCl (Roxicodone -) 10 mg PO Q6H PRN PRN Reason: PAIN LEVEL 6-10 Last Admin: 12/16/16 21:22 Dose: 10 mg Pantoprazole Sodium (Protonix -) 40 mg PO DAILY [facility] Last Admin: 12/21/16 09:56 Dose: 40 mg Warfarin Sodium (Coumadin -) 3 mg PO DAILY@1800 [facility] Last Admin: 12/20/16 17:43 Dose: 3 mg Zolpidem Tartrate (Ambien -) 5 mg PO HS PRN PRN Reason: INSOMNIA Last Admin: 12/20/16 21:05 Dose: 5 mg - Objective Vital Signs: Vital Signs Temperature 98.2 F 12/21/16 06:00 Pulse Rate 100 H 12/21/16 06:00 Respiratory Rate 20 12/21/16 06:00 Blood Pressure 158/69 12/21/16 06:00 O2 Sat by Pulse Oximetry (%) 99 12/20/16 21:45 Vital Signs Period Temp Pulse Resp BP Sys/Holt Pulse Ox Last 24 Hr 97.9 F-98.4 F 99-112 18-20 136-161/63-78 99-99 Intake & Output 12/20/16 12/21/16 12/21/16 23:59 07:59 15:59 Intake Total 360 Output Total 300 300 Balance 60 -300 Intake: Oral 360 Output: Drainage 300 300 colostomy 300 300 Other: Voiding Method Diaper # Unmeasured Voids Void 2 3 Bowel Movement Yes Yes: colostomy Constitutional: Yes: No Distress, Calm, Obese Gastrointestinal: Yes: Soft, Abdomen, Obese, Other (colostomy functioning, brown mostly liquid stool with particulate matter in bag). No: Distention, Tenderness Extremities: No: Cool, Cyanosis Integumentary: Yes: Incision (midline), Rash (mild intertriginous in pannicular fold/groins) Wound/Incision: Yes: [place] Intact (at umbilicus), Dressing Dry and Intact, Dressing Removed (and packing changed; wounds clean, red, granulating, lower base with small bit of maloney tissue still but improving, scant oozing at sides with dressing removal, stopped spontaneously), Unapproximated (midline) Neurological: Yes: Alert, Oriented Labs: CBC, BMP 12/21/16 06:30 12/21/16 06:30 INR, PTT INR 1.73 (0.82-1.09) H 12/21/16 06:30 INR down a little, likely reflects the day coumadin was held, anticipate rise with recent dosing K low Problem List - Problems (1) Perforated sigmoid colon Assessment/Plan: POD11 s/p sigmoid resection with colostomy (Dwaine's procedure) for perforated sigmoid colon, possibly secondary to C. diff megacolon pathology with ischemic colitis, associated ulceration and perforation, areas of diverticulosis and diverticulitis, no malignancy, no pseudomembranes (it is filed under wrong D#) doing well overall but weak/deconditioned on nasal cannula O2 prn, using incentive spirometer periodically tolerating diet, but not eating much - glucerna with meals, prefers strawberry not using pain meds instructed patient and nurses that she is to use commode for urination, OOB to chair multiple times daily, ambulate with assist as able PT seeing patient during week rehab planned - referrals have been made for SNF drain dressing site dry, healing, left open to air Flagyl completing po - 14 days total per ID (through 12/22) midline wound dressing changes bid - granulating and improving daily no tape on irritated skin colostomy functioning discharge planning - SW/CM for rehab placement to continue bid midline wound packing with saline-dampened Kerlix, gauze and ABD ostomy care and teaching pt to f/u with me on discharge from rehab facility - gave my card, details in discharge plan Code(s): K63.1 - PERFORATION OF INTESTINE (NONTRAUMATIC) (2) Dilatation of colon Assessment/Plan: etiology still unclear - had inflamed segment of sigmoid with perforation at necrotic patch but no significant mass or any purulence could have been C diff related after Augmentin 2 wks ago, but no longer having diarrhea C diff results noted on contact precautions continuing Flagyl to complete course Code(s): K59.39 - OTHER MEGACOLON (3) H/O: CVA (cerebrovascular accident) Assessment/Plan: INR 1.73 (dip from day it was held) coumadin per primary team Code(s): Z86.73 - PRSNL HX OF TIA (TIA), AND CEREB INFRC W/O RESID DEFICITS (4) Hypertension Assessment/Plan: on carvedilol amlodipine reordered as at home Code(s): I10 - ESSENTIAL (PRIMARY) HYPERTENSION Qualifiers: Hypertension type: essential hypertension Qualified Code(s): I10 - Essential (primary) hypertension; I10 - Essential (primary) hypertension; I10 - Essential (primary) hypertension (5) Diabetes mellitus type 2, noninsulin dependent Assessment/Plan: FS with SSI metformin reordered as at home Code(s): E11.9 - TYPE 2 DIABETES MELLITUS WITHOUT COMPLICATIONS (6) Cancer of left breast Assessment/Plan: Arimidex resumed per family and pt, Dr. Pete does not take her current insurance - they are planning to change oncologists Code(s): C50.912 - MALIGNANT NEOPLASM OF UNSPECIFIED SITE OF LEFT FEMALE BREAST Qualifiers: Breast location: upper outer quadrant of breast Estrogen receptor status: positive Patient sex: female Qualified Code(s): C50.412 - Malignant neoplasm of upper-outer quadrant of left female breast; C50.412 - Malignant neoplasm of upper-outer quadrant of left female breast; C50.412 - Malignant neoplasm of upper-outer quadrant of left female breast; C50.412 - Malignant neoplasm of upper-outer quadrant of left female breast; Z17.0 - Estrogen receptor positive status [ER+]; Z17.0 - Estrogen receptor positive status [ER+] (7) COPD without exacerbation Assessment/Plan: nebs as indicated and prn IS and encourage coughing/expectoration defer to primary team Code(s): J44.9 - CHRONIC OBSTRUCTIVE PULMONARY DISEASE, UNSPECIFIED
--- NOTE | 2016-12-21 11:21 | PN ---
Progress Note, Physician History of Present Illness: Pt w/o F, C, cough, SOB, CP. palp, N, V, abd pain. Pt is tolerating PO intake. She is ready to go OOB. - Current Medication List Current Medications: Active Medications Acetaminophen (Tylenol -) 650 mg PO Q6H PRN PRN Reason: FEVER OR PAIN Last Admin: 12/20/16 00:15 Dose: 650 mg Albuterol Sulfate (Ventolin Hfa Inhaler -) 2 puff IH Q4H PRN PRN Reason: SHORT OF BREATH/WHEEZING Albuterol/Ipratropium (Duoneb -) 1 amp NEB Q6H PRN PRN Reason: SHORTNESS OF BREATH Last Admin: 12/21/16 05:53 Dose: 1 amp Anastrozole (Arimidex -) 1 mg PO HS [facility] Last Admin: 12/20/16 21:04 Dose: 1 mg Carvedilol (Coreg -) 6.25 mg PO BID [facility] Last Admin: 12/21/16 09:56 Dose: 6.25 mg Insulin Aspart (Novolog Vial Sliding Scale -) 1 vial SQ ACHS [facility] PRN Reason: Protocol Last Admin: 12/21/16 06:17 Dose: Not Given Metronidazole (Flagyl -) 500 mg PO TID [facility] Last Admin: 12/21/16 05:53 Dose: 500 mg Nicotine (Nicoderm Patch -) 14 mg TD DAILY [facility] Last Admin: 12/21/16 09:57 Dose: 14 mg Nystatin (Nystop Powder -) 1 applic TP TID [facility] Last Admin: 12/21/16 05:51 Dose: 1 applic Ondansetron HCl (Zofran Injection) 4 mg IVPUSH Q6H PRN PRN Reason: NAUSEA Oxycodone HCl (Roxicodone -) 10 mg PO Q6H PRN PRN Reason: PAIN LEVEL 6-10 Last Admin: 12/16/16 21:22 Dose: 10 mg Pantoprazole Sodium (Protonix -) 40 mg PO DAILY [facility] Last Admin: 12/21/16 09:56 Dose: 40 mg Warfarin Sodium (Coumadin -) 3 mg PO DAILY@1800 [facility] Last Admin: 12/20/16 17:43 Dose: 3 mg Zolpidem Tartrate (Ambien -) 5 mg PO HS PRN PRN Reason: INSOMNIA Last Admin: 12/20/16 21:05 Dose: 5 mg - Objective Vital Signs: Vital Signs Temperature 98.2 F 12/21/16 06:00 Pulse Rate 100 H 12/21/16 06:00 Respiratory Rate 20 12/21/16 06:00 Blood Pressure 158/69 12/21/16 06:00 O2 Sat by Pulse Oximetry (%) 99 12/20/16 21:45 Constitutional: Yes: No Distress, Calm Cardiovascular: Yes: Regular Rate and Rhythm, S1, S2 Respiratory: Yes: Regular, Other (coarse) Gastrointestinal: Yes: Normal Bowel Sounds, Soft. No: Tenderness (+ colostomy bag) Edema: No Neurological: Yes: Alert, Oriented Labs: CBC, BMP 12/21/16 06:30 12/21/16 06:30 INR, PTT INR 1.73 (0.82-1.09) H 12/21/16 06:30 Problem List - Problems (1) Perforated sigmoid colon Code(s): K63.1 - PERFORATION OF INTESTINE (NONTRAUMATIC) (2) Colostomy in place Code(s): Z93.3 - COLOSTOMY STATUS (3) Dilatation of colon Code(s): K59.39 - OTHER MEGACOLON (4) LLQ pain Code(s): R10.32 - LEFT LOWER QUADRANT PAIN (5) Cancer of left breast Code(s): C50.912 - MALIGNANT NEOPLASM OF UNSPECIFIED SITE OF LEFT FEMALE BREAST Qualifiers: Breast location: upper outer quadrant of breast Estrogen receptor status: positive Patient sex: female Qualified Code(s): C50.412 - Malignant neoplasm of upper-outer quadrant of left female breast; C50.412 - Malignant neoplasm of upper-outer quadrant of left female breast; C50.412 - Malignant neoplasm of upper-outer quadrant of left female breast; C50.412 - Malignant neoplasm of upper-outer quadrant of left female breast; Z17.0 - Estrogen receptor positive status [ER+]; Z17.0 - Estrogen receptor positive status [ER+] (6) Diabetes mellitus type 2, noninsulin dependent Code(s): E11.9 - TYPE 2 DIABETES MELLITUS WITHOUT COMPLICATIONS (7) H/O: CVA (cerebrovascular accident) Code(s): Z86.73 - PRSNL HX OF TIA (TIA), AND CEREB INFRC W/O RESID DEFICITS (8) Supratherapeutic INR Code(s): R79.1 - ABNORMAL COAGULATION PROFILE (9) Hypertension Code(s): I10 - ESSENTIAL (PRIMARY) HYPERTENSION Qualifiers: Hypertension type: essential hypertension Qualified Code(s): I10 - Essential (primary) hypertension; I10 - Essential (primary) hypertension; I10 - Essential (primary) hypertension (10) COPD (chronic obstructive pulmonary disease) Code(s): J44.9 - CHRONIC OBSTRUCTIVE PULMONARY DISEASE, UNSPECIFIED (11) Hypomagnesemia Code(s): E83.42 - HYPOMAGNESEMIA (12) Hypophosphatemia Code(s): E83.39 - OTHER DISORDERS OF PHOSPHORUS METABOLISM (13) Hypoalbuminemia Code(s): E88.09 - OTH DISORDERS OF PLASMA-PROTEIN METABOLISM, NEC (14) Hypokalemia Code(s): E87.6 - HYPOKALEMIA (15) Subtherapeutic anticoagulation Code(s): Z51.81 - ENCOUNTER FOR THERAPEUTIC DRUG LEVEL MONITORING Z79.01 - ASSISTED (CURRENT) USE OF 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 Pt is on tolerating PO intake. BGM with coverage for now. Pt was changed to PO Flagyl. Pt is off iV abtx Monitor and replete electrolytes. AM labs. Coumadin to be adjusted tonight, INR in AM. Add Metformin. Case was d/w pt's nurse. Pt states that wants to go to inpatient Rehab; to w/u with CM
[2016-12-21] MEDS ORDERED: POTASSIUM CHLORIDE TABS 20 MEQ TABLET.ER (FP) PO ONE (12:00)
[2016-12-21] MEDS ORDERED: INSULIN (NOVOLOG) ASPART 100 UNITS/ML 10ML VIAL ONE ×3 (12:05→21:25)
[2016-12-21] MEDS: metFORMIN HCL 500 MG TABLET (FP) PO SCH (16:35)
[2016-12-21] MEDS: WARFARIN NA 3 MG TABLET PO ONE (17:36)
[2016-12-21] MEDS: WARFARIN NA 3 MG TABLET PO SCH (17:43)
[2016-12-21] MEDS: ZOLPIDEM TARTRATE 5 MG TABLET PO PRN (21:26)
[2016-12-21] MEDS: ANASTROZOLE 1 MG TABLET PO SCH (21:26)
[2016-12-21] MEDS: amLODIPine BESYLATE 5 MG TABLET (FP) PO SCH (21:26)
[2016-12-22] MEDS: ALBUTEROL SO4 2.5/IPRATROPIUM 0.5 INH SOL 3 ML VIAL.NEB. NEB PRN ×2 (06:22→18:09)
[2016-12-22] MEDS: NYSTATIN POWDER 100,000 UNITS/GM - 15 GM TOPICAL POWDER TP SCH ×3 (06:36→23:00)
[2016-12-22] MEDS: metroNIDAZOLE 250 MG TABLET PO SCH ×3 (06:36→22:11)
[2016-12-22] MEDS: metFORMIN HCL 500 MG TABLET (FP) PO SCH ×2 (06:36→17:19)
[2016-12-22] MEDS: INSULIN SLIDING SCALE (NOVOLOG) 1 VIAL SQ SCH ×4 (06:37→22:17)
[2016-12-22 08:17] LABS: ANION GAP 6 (8-16); CO2 33 mmol/L (21-32); CREATININE 0.3 mg/dL (0.55-1.02); GLUCOSE,RANDOM 118 mg/dL (74-106)
[2016-12-22] MEDS: PANTOPRAZOLE 40 MG TABLET (FP) PO SCH (10:55)
[2016-12-22] MEDS: NICOTINE 7 MG/24 HOURS TOPICAL PATCH TD SCH (10:55)
[2016-12-22] MEDS: CARVEDILOL 6.25 MG TABLET (FP) PO SCH ×2 (10:55→22:12)
[2016-12-22 11:47] LABS: INR 1.69 (0.82-1.09); PROTHROMBIN TIME (PATIENT) 19.1 SEC (9.98-11.88)
--- NOTE | 2016-12-22 12:10 | PN ---
Progress Note, Physician Chief Complaint: abdominal distention, LLQ pain History of Present Illness: POD12 s/p sigmoid resection with colostomy (Dwaine's procedure) for perforation of sigmoid, possibly secondary to C. diff megacolon pt seen and examined in bed feeling well, no pain nathaly diet and Glucerna colostomy with brown mostly liquid stool, 900 yesterday, 400 overnight, bag with some very soft and liquid stool in it had another small rectal BM last night (from below) voids unmeasured - pt refuses to get OOB to commode, urinating in diaper states frequently to nursing she is too tired to get up SW/CM sent referrals for SNF - Current Medication List Current Medications: Active Medications Acetaminophen (Tylenol -) 650 mg PO Q6H PRN PRN Reason: FEVER OR PAIN Last Admin: 12/20/16 00:15 Dose: 650 mg Albuterol Sulfate (Ventolin Hfa Inhaler -) 2 puff IH Q4H PRN PRN Reason: SHORT OF BREATH/WHEEZING Albuterol/Ipratropium (Duoneb -) 1 amp NEB Q6H PRN PRN Reason: SHORTNESS OF BREATH Last Admin: 12/22/16 06:22 Dose: 1 amp Amlodipine Besylate (Norvasc -) 5 mg PO HS [facility] Last Admin: 12/21/16 21:26 Dose: 5 mg Anastrozole (Arimidex -) 1 mg PO HS [facility] Last Admin: 12/21/16 21:26 Dose: 1 mg Carvedilol (Coreg -) 6.25 mg PO BID [facility] Last Admin: 12/22/16 10:55 Dose: 6.25 mg Insulin Aspart (Novolog Vial Sliding Scale -) 1 vial SQ ACHS [facility] PRN Reason: Protocol Last Admin: 12/22/16 11:13 Dose: 2 units Metformin HCl (Glucophage -) 1,000 mg PO BIDAC [facility] Last Admin: 12/22/16 06:36 Dose: 1,000 mg Metronidazole (Flagyl -) 500 mg PO TID [facility] Last Admin: 12/22/16 06:36 Dose: 500 mg Nicotine (Nicoderm Patch -) 7 mg TD DAILY [facility] Last Admin: 12/22/16 10:55 Dose: 7 mg Nystatin (Nystop Powder -) 1 applic TP TID [facility] Last Admin: 12/22/16 06:36 Dose: 1 applic Ondansetron HCl (Zofran Injection) 4 mg IVPUSH Q6H PRN PRN Reason: NAUSEA Pantoprazole Sodium (Protonix -) 40 mg PO DAILY [facility] Last Admin: 12/22/16 10:55 Dose: 40 mg Warfarin Sodium (Coumadin -) 3 mg PO DAILY@1800 [facility] Last Admin: 12/21/16 17:43 Dose: 3 mg Zolpidem Tartrate (Ambien -) 5 mg PO HS PRN PRN Reason: INSOMNIA Last Admin: 12/21/16 21:26 Dose: 5 mg - Objective Vital Signs: Vital Signs Temperature 97.9 F 12/22/16 10:00 Pulse Rate 106 H 12/22/16 10:00 Respiratory Rate 20 12/22/16 10:00 Blood Pressure 158/81 12/22/16 10:00 O2 Sat by Pulse Oximetry (%) 97 12/21/16 22:00 Constitutional: Yes: No Distress, Calm, Obese Gastrointestinal: Yes: Soft, Abdomen, Obese, Other (colostomy pink, patent, productive of liquid and soft/mushy brown stool). No: Distention, Tenderness Genitourinary: Yes: Incontinence. No: Escobar Present Extremities: No: Cool, Cyanosis Integumentary: Yes: Incision (midline), Rash (tape irritation on abdomen improving) Wound/Incision: Yes: [place] Intact (at umbilicus), Dressing Removed (and packing changed with nurse - centeno of wound granulating well, bases with scant/ small maloney tissue, fascia intact), Unapproximated (midline) Neurological: Yes: Alert, Oriented Labs: [facility] 12/22/16 06:45 INR, PTT INR 1.69 (0.82-1.09) H 12/22/16 11:15 Problem List - Problems (1) Perforated sigmoid colon Assessment/Plan: POD12 s/p sigmoid resection with colostomy (Dwaine's procedure) for perforated sigmoid colon, possibly secondary to C. diff megacolon pathology with ischemic colitis, associated ulceration and perforation, areas of diverticulosis and diverticulitis, no malignancy, no pseudomembranes (it is filed under wrong D#) doing well overall but weak/deconditioned on nasal cannula O2, using incentive spirometer periodically tolerating diet, and glucerna with meals not using pain meds reinforced to patient and nurses that she is to use commode for urination, OOB to chair multiple times daily, ambulate with assist as able OOB to chair for meals and ambulate before going back to bed PT seeing patient during week rehab planned - referrals have been made for SNF Flagyl completing po - 14 days total per ID (through 12/22) midline wound dressing changes bid - granulating and improving daily no tape on irritated skin colostomy functioning old drain site healing discharge planning - SW/CM for rehab placement to continue bid midline wound packing with saline-dampened Kerlix, gauze and ABD ostomy care and teaching pt to f/u with me on discharge from rehab facility - gave my card, details in discharge plan Code(s): K63.1 - PERFORATION OF INTESTINE (NONTRAUMATIC) (2) H/O: CVA (cerebrovascular accident) Assessment/Plan: INR 1.69 coumadin per primary team Code(s): Z86.73 - PRSNL HX OF TIA (TIA), AND CEREB INFRC W/O RESID DEFICITS (3) Hypertension Assessment/Plan: on carvedilol amlodipine resumed Code(s): I10 - ESSENTIAL (PRIMARY) HYPERTENSION Qualifiers: Hypertension type: essential hypertension Qualified Code(s): I10 - Essential (primary) hypertension; I10 - Essential (primary) hypertension; I10 - Essential (primary) hypertension (4) Diabetes mellitus type 2, noninsulin dependent Assessment/Plan: FS with SSI metformin resumed Code(s): E11.9 - TYPE 2 DIABETES MELLITUS WITHOUT COMPLICATIONS (5) Cancer of left breast Assessment/Plan: Arimidex resumed per family and pt, Dr. Pete does not take her current insurance - they are planning to change oncologists Code(s): C50.912 - MALIGNANT NEOPLASM OF UNSPECIFIED SITE OF LEFT FEMALE BREAST Qualifiers: Breast location: upper outer quadrant of breast Estrogen receptor status: positive Patient sex: female Qualified Code(s): C50.412 - Malignant neoplasm of upper-outer quadrant of left female breast; C50.412 - Malignant neoplasm of upper-outer quadrant of left female breast; C50.412 - Malignant neoplasm of upper-outer quadrant of left female breast; C50.412 - Malignant neoplasm of upper-outer quadrant of left female breast; Z17.0 - Estrogen receptor positive status [ER+]; Z17.0 - Estrogen receptor positive status [ER+] (6) COPD without exacerbation Assessment/Plan: nebs as indicated and prn IS and encourage coughing/expectoration pulmonary seeing Code(s): J44.9 - CHRONIC OBSTRUCTIVE PULMONARY DISEASE, UNSPECIFIED
[2016-12-22] MEDS ORDERED: INSULIN (NOVOLOG) ASPART 100 UNITS/ML 10ML VIAL ONE ×2 (12:16→22:09)
--- NOTE | 2016-12-22 15:24 | PN ---
Progress Note, Physician History of Present Illness: Pt w/o F, C, SOB, CP. palp, N, V, abd pain. Pt with cough, productive, white. Pt is tolerating PO intake. - Current Medication List Current Medications: Active Medications Acetaminophen (Tylenol -) 650 mg PO Q6H PRN PRN Reason: FEVER OR PAIN Last Admin: 12/20/16 00:15 Dose: 650 mg Albuterol Sulfate (Ventolin Hfa Inhaler -) 2 puff IH Q4H PRN PRN Reason: SHORT OF BREATH/WHEEZING Albuterol/Ipratropium (Duoneb -) 1 amp NEB Q6H PRN PRN Reason: SHORTNESS OF BREATH Last Admin: 12/22/16 06:22 Dose: 1 amp Amlodipine Besylate (Norvasc -) 5 mg PO HS [facility] Last Admin: 12/21/16 21:26 Dose: 5 mg Anastrozole (Arimidex -) 1 mg PO HS [facility] Last Admin: 12/21/16 21:26 Dose: 1 mg Carvedilol (Coreg -) 6.25 mg PO BID [facility] Last Admin: 12/22/16 10:55 Dose: 6.25 mg Insulin Aspart (Novolog Vial Sliding Scale -) 1 vial SQ ACHS [facility] PRN Reason: Protocol Last Admin: 12/22/16 11:13 Dose: 2 units Metformin HCl (Glucophage -) 1,000 mg PO BIDAC [facility] Last Admin: 12/22/16 06:36 Dose: 1,000 mg Metronidazole (Flagyl -) 500 mg PO TID [facility] Last Admin: 12/22/16 15:00 Dose: 500 mg Nicotine (Nicoderm Patch -) 7 mg TD DAILY [facility] Last Admin: 12/22/16 10:55 Dose: 7 mg Nystatin (Nystop Powder -) 1 applic TP TID [facility] Last Admin: 12/22/16 15:00 Dose: 1 applic Ondansetron HCl (Zofran Injection) 4 mg IVPUSH Q6H PRN PRN Reason: NAUSEA Pantoprazole Sodium (Protonix -) 40 mg PO DAILY [facility] Last Admin: 12/22/16 10:55 Dose: 40 mg Warfarin Sodium (Coumadin -) 3 mg PO ONCE@1800 ONE Stop: 12/22/16 18:01 Warfarin Sodium (Coumadin -) 6 mg PO DAILY@1800 [facility] Zolpidem Tartrate (Ambien -) 5 mg PO HS PRN PRN Reason: INSOMNIA Last Admin: 12/21/16 21:26 Dose: 5 mg - Objective Vital Signs: Vital Signs Temperature 98.8 F 12/22/16 15:20 Pulse Rate 105 H 12/22/16 15:20 Respiratory Rate 20 12/22/16 15:20 Blood Pressure 158/59 12/22/16 15:20 O2 Sat by Pulse Oximetry (%) 97 12/22/16 13:59 Constitutional: Yes: No Distress, Calm Cardiovascular: Yes: Regular Rate and Rhythm, S1, S2 Respiratory: Yes: Regular, Rhonchi, Wheezes (expiratory) Gastrointestinal: Yes: Normal Bowel Sounds, Soft, Other (+ colostomy bag with brown stool). No: Tenderness Edema: No Neurological: Yes: Alert, Oriented Labs: CBC, BMP 12/21/16 06:30 12/22/16 06:45 INR, PTT INR 1.69 (0.82-1.09) H 12/22/16 11:15 Problem List - Problems (1) Perforated sigmoid colon Code(s): K63.1 - PERFORATION OF INTESTINE (NONTRAUMATIC) (2) Colostomy in place Code(s): Z93.3 - COLOSTOMY STATUS (3) Dilatation of colon Code(s): K59.39 - OTHER MEGACOLON (4) LLQ pain Code(s): R10.32 - LEFT LOWER QUADRANT PAIN (5) Cancer of left breast Code(s): C50.912 - MALIGNANT NEOPLASM OF UNSPECIFIED SITE OF LEFT FEMALE BREAST Qualifiers: Breast location: upper outer quadrant of breast Estrogen receptor status: positive Patient sex: female Qualified Code(s): C50.412 - Malignant neoplasm of upper-outer quadrant of left female breast; C50.412 - Malignant neoplasm of upper-outer quadrant of left female breast; C50.412 - Malignant neoplasm of upper-outer quadrant of left female breast; C50.412 - Malignant neoplasm of upper-outer quadrant of left female breast; Z17.0 - Estrogen receptor positive status [ER+]; Z17.0 - Estrogen receptor positive status [ER+] (6) Diabetes mellitus type 2, noninsulin dependent Code(s): E11.9 - TYPE 2 DIABETES MELLITUS WITHOUT COMPLICATIONS (7) H/O: CVA (cerebrovascular accident) Code(s): Z86.73 - PRSNL HX OF TIA (TIA), AND CEREB INFRC W/O RESID DEFICITS (8) Supratherapeutic INR Code(s): R79.1 - ABNORMAL COAGULATION PROFILE (9) Hypertension Code(s): I10 - ESSENTIAL (PRIMARY) HYPERTENSION Qualifiers: Hypertension type: essential hypertension Qualified Code(s): I10 - Essential (primary) hypertension; I10 - Essential (primary) hypertension; I10 - Essential (primary) hypertension (10) COPD (chronic obstructive pulmonary disease) Code(s): J44.9 - CHRONIC OBSTRUCTIVE PULMONARY DISEASE, UNSPECIFIED (11) Hypomagnesemia Code(s): E83.42 - HYPOMAGNESEMIA (12) Hypophosphatemia Code(s): E83.39 - OTHER DISORDERS OF PHOSPHORUS METABOLISM (13) Hypoalbuminemia Code(s): E88.09 - OTH DISORDERS OF PLASMA-PROTEIN METABOLISM, NEC (14) Hypokalemia Code(s): E87.6 - HYPOKALEMIA (15) Subtherapeutic anticoagulation Code(s): Z51.81 - ENCOUNTER FOR THERAPEUTIC DRUG LEVEL MONITORING Z79.01 - INTERMEDIATE (CURRENT) USE OF 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 Pt is on tolerating PO intake. Pt was changed to PO Flagyl. Pt is off iV abtx Monitor and replete electrolytes. AM labs. Coumadin to be adjusted tonight, INR in AM. Started abck on Metformin. Case was d/w pt's nurse. Pt states that wants to go to inpatient Rehab; to w/u with [facility]
[2016-12-22] MEDS: WARFARIN NA 3 MG TABLET PO SCH (17:20)
[2016-12-22] MEDS ORDERED: WARFARIN NA 3 MG TABLET PO ONE (18:00)
[2016-12-22] MEDS ORDERED: amLODIPine BESYLATE 2.5 MG TABLET (FP) PO ONE (18:53)
[2016-12-22] MEDS ORDERED: PT OWN MED DRAWER 7, Y5N ONE ×2 (22:00→23:31)
[2016-12-22] MEDS: amLODIPine BESYLATE 5 MG TABLET (FP) PO SCH (22:11)
[2016-12-22] MEDS: ZOLPIDEM TARTRATE 5 MG TABLET PO PRN (22:11)
[2016-12-22] MEDS: ANASTROZOLE 1 MG TABLET PO SCH (22:12)
[2016-12-22] MEDS: MOMETASONE FUROATE 110 MCG/IH INHALER IH SCH (22:12)
[2016-12-23] MEDS: metFORMIN HCL 500 MG TABLET (FP) PO SCH ×2 (06:57→17:28)
[2016-12-23] MEDS: metroNIDAZOLE 250 MG TABLET PO SCH ×2 (06:57→13:18)
[2016-12-23] MEDS: INSULIN SLIDING SCALE (NOVOLOG) 1 VIAL SQ SCH ×4 (06:58→23:04)
[2016-12-23] MEDS: NYSTATIN POWDER 100,000 UNITS/GM - 15 GM TOPICAL POWDER TP SCH ×3 (06:58→23:00)
[2016-12-23 07:05] LABS: MCH 30.4 pg (25.7-33.7); MCHC 32.7 g/dl (32.0-36.0); MEAN CELL VOLUME 92.9 fl (80-96); PLATELET COUNT 319 K/MM3 (134-434); RDW 15.1 % (11.6-15.6); WHITE BLOOD COUNT 5.4 K/mm3 (4.0-10.0)
[2016-12-23 07:20] LABS: INR 1.91 (0.82-1.09); PROTHROMBIN TIME (PATIENT) 21.6 SEC (9.98-11.88)
[2016-12-23 07:27] LABS: ANION GAP 11 (8-16); CALCIUM 7.8 mg/dL (8.5-10.1); CO2 29 mmol/L (21-32); CREATININE 0.3 mg/dL (0.55-1.02); GLUCOSE,RANDOM 109 mg/dL (74-106)
[2016-12-23] MEDS ORDERED: amLODIPine BESYLATE 2.5 MG TABLET (FP) PO ONE (10:15)
[2016-12-23] MEDS: PANTOPRAZOLE 40 MG TABLET (FP) PO SCH (10:27)
[2016-12-23] MEDS: NICOTINE 7 MG/24 HOURS TOPICAL PATCH TD SCH (10:27)
[2016-12-23] MEDS: CARVEDILOL 6.25 MG TABLET (FP) PO SCH (10:27)
[2016-12-23] MEDS: ALBUTEROL SO4 2.5/IPRATROPIUM 0.5 INH SOL 3 ML VIAL.NEB. NEB PRN (12:43)
[2016-12-23] MEDS: MOMETASONE FUROATE 110 MCG/IH INHALER IH SCH ×2 (13:19→23:03)
--- NOTE | 2016-12-23 13:58 | PN ---
Progress Note, Physician History of Present Illness: Pt w/o F, C, SOB, CP. palp, N, V, abd pain. Pt with cough, productive. PT is in the wheelchair, as just returned from CXR. - Current Medication List Current Medications: Active Medications Acetaminophen (Tylenol -) 650 mg PO Q6H PRN PRN Reason: FEVER OR PAIN Last Admin: 12/20/16 00:15 Dose: 650 mg Albuterol Sulfate (Ventolin Hfa Inhaler -) 2 puff IH Q4H PRN PRN Reason: SHORT OF BREATH/WHEEZING Albuterol/Ipratropium (Duoneb -) 1 amp NEB Q6H PRN PRN Reason: SHORTNESS OF BREATH Last Admin: 12/23/16 12:43 Dose: 1 amp Amlodipine Besylate (Norvasc -) 5 mg PO HS [facility] Last Admin: 12/22/16 22:11 Dose: 5 mg Anastrozole (Arimidex -) 1 mg PO HS [facility] Last Admin: 12/22/16 22:12 Dose: 1 mg Carvedilol (Coreg -) 6.25 mg PO BID [facility] Last Admin: 12/23/16 10:27 Dose: 6.25 mg Insulin Aspart (Novolog Vial Sliding Scale -) 1 vial SQ ACHS [facility] PRN Reason: Protocol Last Admin: 12/23/16 11:47 Dose: Not Given Metformin HCl (Glucophage -) 1,000 mg PO BIDAC [facility] Last Admin: 12/23/16 06:57 Dose: 1,000 mg Metronidazole (Flagyl -) 500 mg PO TID [facility] Last Admin: 12/23/16 13:18 Dose: 500 mg Mometasone Furoate (Asmanex 110mcg -) 1 puff IH BID [facility] Last Admin: 12/23/16 13:19 Dose: 1 puff Nicotine (Nicoderm Patch -) 7 mg TD DAILY [facility] Last Admin: 12/23/16 10:27 Dose: 7 mg Nystatin (Nystop Powder -) 1 applic TP TID [facility] Last Admin: 12/23/16 13:19 Dose: 1 applic Ondansetron HCl (Zofran Injection) 4 mg IVPUSH Q6H PRN PRN Reason: NAUSEA Pantoprazole Sodium (Protonix -) 40 mg PO DAILY [facility] Last Admin: 12/23/16 10:27 Dose: 40 mg Warfarin Sodium (Coumadin -) 6 mg PO DAILY@1800 [facility] Last Admin: 12/22/16 17:20 Dose: 6 mg Zolpidem Tartrate (Ambien -) 5 mg PO HS PRN PRN Reason: INSOMNIA Last Admin: 12/22/16 22:11 Dose: 5 mg - Objective Vital Signs: Vital Signs Temperature 99.0 F 12/23/16 09:58 Pulse Rate 108 H 12/23/16 09:58 Respiratory Rate 18 12/23/16 06:04 Blood Pressure 167/70 12/23/16 09:58 O2 Sat by Pulse Oximetry (%) 98 12/22/16 22:00 Constitutional: Yes: No Distress, Calm Cardiovascular: Yes: Regular Rate and Rhythm, S1, S2 Respiratory: Yes: Regular, Rales Gastrointestinal: Yes: Normal Bowel Sounds, Soft, Other (colostomy bag). No: Tenderness Edema: No Neurological: Yes: Alert, Oriented Labs: CBC, BMP 12/23/16 05:30 12/23/16 05:30 INR, PTT INR 1.91 (0.82-1.09) H 12/23/16 05:30 Problem List - Problems (1) Perforated sigmoid colon Code(s): K63.1 - PERFORATION OF INTESTINE (NONTRAUMATIC) (2) Colostomy in place Code(s): Z93.3 - COLOSTOMY STATUS (3) Dilatation of colon Code(s): K59.39 - OTHER MEGACOLON (4) LLQ pain Code(s): R10.32 - LEFT LOWER QUADRANT PAIN (5) Cancer of left breast Code(s): C50.912 - MALIGNANT NEOPLASM OF UNSPECIFIED SITE OF LEFT FEMALE BREAST Qualifiers: Breast location: upper outer quadrant of breast Estrogen receptor status: positive Patient sex: female Qualified Code(s): C50.412 - Malignant neoplasm of upper-outer quadrant of left female breast; C50.412 - Malignant neoplasm of upper-outer quadrant of left female breast; C50.412 - Malignant neoplasm of upper-outer quadrant of left female breast; C50.412 - Malignant neoplasm of upper-outer quadrant of left female breast; Z17.0 - Estrogen receptor positive status [ER+]; Z17.0 - Estrogen receptor positive status [ER+] (6) Diabetes mellitus type 2, noninsulin dependent Code(s): E11.9 - TYPE 2 DIABETES MELLITUS WITHOUT COMPLICATIONS (7) H/O: CVA (cerebrovascular accident) Code(s): Z86.73 - PRSNL HX OF TIA (TIA), AND CEREB INFRC W/O RESID DEFICITS (8) Supratherapeutic INR Code(s): R79.1 - ABNORMAL COAGULATION PROFILE (9) Hypertension Code(s): I10 - ESSENTIAL (PRIMARY) HYPERTENSION Qualifiers: Hypertension type: essential hypertension Qualified Code(s): I10 - Essential (primary) hypertension; I10 - Essential (primary) hypertension; I10 - Essential (primary) hypertension (10) COPD (chronic obstructive pulmonary disease) Code(s): J44.9 - CHRONIC OBSTRUCTIVE PULMONARY DISEASE, UNSPECIFIED (11) Hypomagnesemia Code(s): E83.42 - HYPOMAGNESEMIA (12) Hypophosphatemia Code(s): E83.39 - OTHER DISORDERS OF PHOSPHORUS METABOLISM (13) Hypoalbuminemia Code(s): E88.09 - OTH DISORDERS OF PLASMA-PROTEIN METABOLISM, NEC (14) Hypokalemia Code(s): E87.6 - HYPOKALEMIA (15) Subtherapeutic anticoagulation Code(s): Z51.81 - ENCOUNTER FOR THERAPEUTIC DRUG LEVEL MONITORING 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 Pt is on tolerating PO intake. Pt finished IV abtx Pt finished Flagyl. Monitor and replete electrolytes. AM labs. Coumadin to be adjusted tonight, INR in AM. Started back on Metformin. To ask Pulmonary to reevaluate pt and CXR. Case was d/w pt's nurse; DC planning is no acute treated needed. Pt states that wants to go to inpatient Rehab; to w/u with [facility]
--- NOTE | 2016-12-23 14:11 | DS ---
Physical Examination Vital Signs: Vital Signs Temperature 99.0 F 12/23/16 09:58 Pulse Rate 108 H 12/23/16 09:58 Respiratory Rate 18 12/23/16 06:04 Blood Pressure 167/70 12/23/16 09:58 O2 Sat by Pulse Oximetry (%) 98 12/22/16 22:00 Findings/Remarks: see Progress note. Per Dr. Landis (Pulmonary) there is an improvement in CXR, no additional treatment needed. Labs: CBC, BMP 12/23/16 05:30 12/23/16 05:30 Discharge Summary Reason For Visit: LLQ PAIN Current Active Problems COPD (chronic obstructive pulmonary disease) (Acute) COPD without exacerbation (Acute) Cancer of left breast (Acute) Clostridium difficile infection (Acute) Colostomy in place (Acute) Diabetes mellitus type 2, noninsulin dependent (Acute) Dilatation of colon (Acute) H/O: CVA (cerebrovascular accident) (Acute) Hypertension (Acute) Hypoalbuminemia (Acute) Hypokalemia (Acute) Hypomagnesemia (Acute) Hypophosphatemia (Acute) Intractable abdominal pain (Acute) LLQ pain (Acute) Perforated sigmoid colon (Acute) Perforated viscus (Acute) Peritonitis (Acute) Subtherapeutic anticoagulation (Acute) Supratherapeutic INR (Acute) Procedures: Principal: Abd/ Pelvis CT scan. CXRs. Abd XRs Hospital Course: Pt came to [place] ER with abd pain and diarrhea, noticed to have distended colon on Abd CT scan. Pt was seen in consult by GI ( Dr. Guido Nicolas) and Surgery ( Dr. Mitchell); pt was noticed to have elevated INR (15); she was started on Flagyl, received Vit K, was made NPO. Few days later it was noticed that pt perforated her sigmoid colon, was transferred to [facility], went to OR; pt had sigmoid colon resection, colostomy. Pt was admitted to ICU, Zosyn was added (pt was seen by Dr. Munoz); pt was extubated second day; pt with slow PO intake improvement, significant multiple electrolytes abnormalities (that required daily replacement); pt INR also needed Coumadin dose adjustment. Pt with slow functional improvement, to be transferred to acute rehab. Pt would need labs in AM, f/u with Dr Jeronimo Mitchell in 2 weeks. Condition: Improved - Instructions Diet, Activity, Other Instructions: Postoperative instructions: You had a sigmoid colon resection with colostomy on 12/10/[address] Isreal Mitchell of [facility]. Activity: Resume your usual activities gradually, but no lifting more than 10- 15 pounds for 4-6 weeks. You may shower daily when you are able; at least sponge bathe daily if you cannot. Wounds will need to be repacked with saline- dampened gauze and covered until they are healed. Bard will eventually be taken out in clinic. You may eat what you like; supplements like Glucerna are recommended three times daily with meals. WOUND CARE: Midline wounds above and below your navel should be packed twice daily with saline-dampened roll gauze and covered with gauze and an absorbent pad. This may be done in the rehab facility, and by a visiting nurse, who will ensure your can help at home as well. Take care of your colostomy as instructed. Your will have teaching reinforced by nurses at rehab and the visiting nurse afterward. Leave the dressing at your drain site until Thursday, then it may be removed and changed daily as needed until the site does not leak any fluid. Pain: For pain, you may use Tylenol (acetaminophen) every 6 hours as needed. If you use a Tylenol/narcotic combination for severe pain, switch back to plain Tylenol as soon as your pain allows. Do not take more than 4000mg of acetaminophen in a day. Follow-up: Call Dr. Mitchell's office at [phone] to make your postop appointment (Thursday after you are discharged from rehab). Clinic is held in the [facility] on the first floor of [facility]. Call the office if at home you have: * increasing pain not responsive to pain medication * fever of 101F or higher * vomiting * unusual or increasing bleeding or drainage from wounds * increasing redness or swelling at wound sites * inability to urinate * no output from your colostomy for 24-36 hours Also, see Dr. Shay within 1 week of leaving rehab. He will need to check your bloodwork and manage your coumadin and other medications . Referrals: Landen Shay MD [Primary Care Provider] - Isreal Mitchell MD [Staff Physician] - (in 2 weeks) Disposition: [facility] - Home Medications Comprehensive Discharge Medication List: Ambulatory Orders this list might NOT be accurate Atorvastatin Ca [Lipitor] 20 mg PO HS #0 tablet 10/31/12 Carvedilol [Coreg] 6.25 mg PO BID 01/15/13 Warfarin Na [Coumadin -] 6 mg PO HS #0 07/11/14 Albuterol Sulfate Inhaler - [Ventolin HFA Inhaler -] 2 inh IH Q4H PRN #1 inh Metformin HCl [Glucophage] 1,000 mg PO BID 05/24/16 Amlodipine Besylate [Norvasc -] 5 mg PO HS 12/08/16 Anastrozole [Arimidex -] 1 mg PO HS 12/08/16 Calcium Carbonate/Vitamin D3 [Calcium 500-Vit D3 600 Tablet] 2 each PO DAILY 11/16 Cyanocobalamin (Vitamin B-12) [B-12] 1,000 mcg PO DAILY 12/08/16
--- NOTE | 2016-12-23 15:40 | PN ---
Progress Note, Physician Chief Complaint: abdominal distention, LLQ pain History of Present Illness: POD13 s/p sigmoid resection with colostomy (Dwaine's procedure) for perforation of sigmoid, possibly secondary to C. diff megacolon pt seen and examined in bed feeling well, no pain nathaly diet and Glucerna colostomy with stool starting to get soft/mushy vs all liquid voids mostly unmeasured was OOB to chair and ambulated some yesterday dressing changed by nursing accepted to [facility] - leaving today - Current Medication List Current Medications: Active Medications Acetaminophen (Tylenol -) 650 mg PO Q6H PRN PRN Reason: FEVER OR PAIN Last Admin: 12/20/16 00:15 Dose: 650 mg Albuterol Sulfate (Ventolin Hfa Inhaler -) 2 puff IH Q4H PRN PRN Reason: SHORT OF BREATH/WHEEZING Albuterol/Ipratropium (Duoneb -) 1 amp NEB Q6H PRN PRN Reason: SHORTNESS OF BREATH Last Admin: 12/23/16 12:43 Dose: 1 amp Amlodipine Besylate (Norvasc -) 5 mg PO HS [facility] Last Admin: 12/22/16 22:11 Dose: 5 mg Amlodipine Besylate (Norvasc -) 5 mg PO DAILY [facility] Anastrozole (Arimidex -) 1 mg PO HS [facility] Last Admin: 12/22/16 22:12 Dose: 1 mg Carvedilol (Coreg -) 6.25 mg PO BID [facility] Last Admin: 12/23/16 10:27 Dose: 6.25 mg Insulin Aspart (Novolog Vial Sliding Scale -) 1 vial SQ ACHS [facility] PRN Reason: Protocol Last Admin: 12/23/16 11:47 Dose: Not Given Metformin HCl (Glucophage -) 1,000 mg PO BIDAC [facility] Last Admin: 12/23/16 06:57 Dose: 1,000 mg Mometasone Furoate (Asmanex 110mcg -) 1 puff IH BID [facility] Last Admin: 12/23/16 13:19 Dose: 1 puff Nicotine (Nicoderm Patch -) 7 mg TD DAILY [facility] Last Admin: 12/23/16 10:27 Dose: 7 mg Nystatin (Nystop Powder -) 1 applic TP TID [facility] Last Admin: 12/23/16 13:19 Dose: 1 applic Ondansetron HCl (Zofran Injection) 4 mg IVPUSH Q6H PRN PRN Reason: NAUSEA Pantoprazole Sodium (Protonix -) 40 mg PO DAILY [facility] Last Admin: 12/23/16 10:27 Dose: 40 mg Warfarin Sodium (Coumadin -) 6 mg PO DAILY@1800 [facility] Last Admin: 12/22/16 17:20 Dose: 6 mg Zolpidem Tartrate (Ambien -) 5 mg PO HS PRN PRN Reason: INSOMNIA Last Admin: 12/22/16 22:11 Dose: 5 mg - Objective Vital Signs: Vital Signs Temperature 98.9 F 12/23/16 14:17 Pulse Rate 97 H 12/23/16 14:51 Respiratory Rate 20 12/23/16 14:17 Blood Pressure 158/70 12/23/16 14:17 O2 Sat by Pulse Oximetry (%) 96 12/23/16 14:51 Constitutional: Yes: No Distress, Calm, Obese Gastrointestinal: Yes: Soft, Abdomen, Obese, Other (colostomy with mushy and liquid brown stool). No: Distention, Tenderness Extremities: No: Cool, Cyanosis Integumentary: Yes: Incision (midline), Rash (on abdomen from tape improving) Wound/Incision: Yes: Nesbit Intact (at umbilicus), Dressing Dry and Intact ( moist kerlix underneath - wounds granulating well), Unapproximated (midline). No: Dressing Removed Neurological: Yes: Alert, Oriented Psychiatric: Yes: Alert, Oriented, Other (depressed) Labs: CBC, BMP 12/23/16 05:30 12/23/16 05:30 INR, PTT INR 1.91 (0.82-1.09) H 12/23/16 05:30 INR starting to rise again Problem List - Problems (1) Perforated sigmoid colon Assessment/Plan: POD13 s/p sigmoid resection with colostomy (Dwaine's procedure) for perforated sigmoid colon, possibly secondary to C. diff megacolon pathology with ischemic colitis, associated ulceration and perforation, areas of diverticulosis and diverticulitis, no malignancy, no pseudomembranes (it is filed under wrong D#) doing well overall but weak/deconditioned on nasal cannula O2, using incentive spirometer periodically tolerating diet, and glucerna with meals not using pain meds reinforced to patient and nurses that she is to use commode for urination, OOB to chair multiple times daily, ambulate with assist as able OOB to chair for meals and ambulate before going back to bed PT seeing patient during week accepted to [facility] for rehab - leaving today Flagyl completed po - 14 days total per ID done as of this morning continue midline wound dressing changes bid - granulating and improving daily no tape on irritated skin, paper tape where needed colostomy functioning old drain site healing discharge today to [facility] to continue bid midline wound packing with saline-dampened Kerlix, gauze and ABD ostomy care and teaching pt to f/u with me on discharge from rehab facility - gave my card, details in discharge plan if in rehab longer than 2 weeks, can make arrangements to come to clinic from there on stretcher if possible ([facility] on first floor of [facility] - call office for appt [phone]) Code(s): K63.1 - PERFORATION OF INTESTINE (NONTRAUMATIC) (2) H/O: CVA (cerebrovascular accident) Assessment/Plan: INR 1.9 coumadin per primary team Code(s): Z86.73 - PRSNL HX OF TIA (TIA), AND CEREB INFRC W/O RESID DEFICITS (3) Hypertension Assessment/Plan: on carvedilol amlodipine resumed Code(s): I10 - ESSENTIAL (PRIMARY) HYPERTENSION Qualifiers: Hypertension type: essential hypertension Qualified Code(s): I10 - Essential (primary) hypertension; I10 - Essential (primary) hypertension; I10 - Essential (primary) hypertension (4) Diabetes mellitus type 2, noninsulin dependent Assessment/Plan: FS with SSI metformin resumed Code(s): E11.9 - TYPE 2 DIABETES MELLITUS WITHOUT COMPLICATIONS (5) Cancer of left breast Assessment/Plan: Arimidex resumed per family and pt, Dr. Pete does not take her current insurance - they are planning to change oncologists Code(s): C50.912 - MALIGNANT NEOPLASM OF UNSPECIFIED SITE OF LEFT FEMALE BREAST Qualifiers: Breast location: upper outer quadrant of breast Estrogen receptor status: positive Patient sex: female Qualified Code(s): C50.412 - Malignant neoplasm of upper-outer quadrant of left female breast; C50.412 - Malignant neoplasm of upper-outer quadrant of left female breast; C50.412 - Malignant neoplasm of upper-outer quadrant of left female breast; C50.412 - Malignant neoplasm of upper-outer quadrant of left female breast; Z17.0 - Estrogen receptor positive status [ER+]; Z17.0 - Estrogen receptor positive status [ER+] (6) COPD without exacerbation Assessment/Plan: nebs as indicated and prn IS and encourage coughing/expectoration pulmonary consulted on nasal cannula O2 - ?may need at home Code(s): J44.9 - CHRONIC OBSTRUCTIVE PULMONARY DISEASE, UNSPECIFIED
[2016-12-23] MEDS: WARFARIN NA 3 MG TABLET PO SCH (17:28)
[2016-12-23] MEDS ORDERED: METOPROLOL TARTRATE 5 MG/5 ML VIAL IVPUSH ONE ×3 (18:45→19:52)
[2016-12-23] MEDS ORDERED: FUROSEMIDE 10 MG/1 ML VIAL (4 ML VIAL) IVPUSH ONE (19:30)
[2016-12-23 19:32] LABS: ARTERIAL BLD GAS O2 SATURATION 98.6 % (90-98.9); ARTERIAL BLOOD GAS BASE EXCESS 3.2 meq/l (-2-2); ARTERIAL BLOOD GAS HCO3 30.5 meq/L (22-26); TYPE OF O2 NRM
[2016-12-23 19:34] LABS: ARTERIAL BLOOD GAS pH 7.29 (7.35-7.45)
[2016-12-23 19:34] LABS: ALBUMIN 1.9 g/dl (3.4-5.0); ANION GAP 9 (8-16); BILIRUBIN,TOTAL 0.2 mg/dL (0.2-1.0); CALCIUM 8.2 mg/dL (8.5-10.1); CO2 30 mmol/L (21-32); CREATININE 0.5 mg/dL (0.55-1.02); GLUCOSE,RANDOM 225 mg/dL (74-106); PHOSPHOROUS 6.4 mg/dL (2.5-4.9); SGOT/AST 17 U/L (15-37); SGPT/ALT 9 U/L (12-78); TOT PROT 5.4 g/dl (6.4-8.2)
[2016-12-23 19:37] LABS: ALK PHOS 87 U/L (45-117); CPK 39 IU/L (26-192); TROPONIN I 0.03 ng/ml (0.00-0.05)
--- NOTE | 2016-12-23 20:18 | HOSP ---
Subjective - Review of Symptoms Subjective: Saw pt. at bedside for shortness of breath/Tachy pt. states she feel better, was given Lasix prior to my coming to see her States her breathing has improved and she does not feel palpitations on 100% NRB 02 98, RR 18, BP 101/55 GEN: NAD, On NRB, Sitting in bed able to speak full sentences CARD: Stach, S1, S2 RESP: Decreased BS at bases ABD: BSx4, NTD to palpation EXT: - C/C/E CBCD WBC 5.4 K/mm3 (4.0-10.0) 12/23/16 05:30 RBC 2.94 M/mm3 (3.60-5.2) L 12/23/16 05:30 Hgb 8.9 GM/dL (10.7-15.3) L 12/23/16 05:30 Hct 27.3 % (32.4-45.2) L 12/23/16 05:30 MCV 92.9 fl (80-96) 12/23/16 05:30 MCHC 32.7 g/dl (32.0-36.0) 12/23/16 05:30 RDW 15.1 % (11.6-15.6) 12/23/16 05:30 Plt Count 319 K/MM3 (134-434) 12/23/16 05:30 MPV 8.0 fl (7.5-11.1) 12/23/16 05:30 CMP Sodium 138 mmol/L (136-145) 12/23/16 18:55 Potassium 4.0 mmol/L (3.5-5.1) 12/23/16 18:55 Chloride 99 mmol/L (98-107) 12/23/16 18:55 Carbon Dioxide 30 mmol/L (21-32) 12/23/16 18:55 Anion Gap 9 (8-16) 12/23/16 18:55 BUN 12 mg/dL (7-18) 12/23/16 18:55 Creatinine 0.5 mg/dL (0.55-1.02) L D 12/23/16 18:55 Creat Clearance w eGFR > 60 (>60) 12/23/16 18:55 Random Glucose 225 mg/dL (74-106) H D 12/23/16 18:55 Calcium 8.2 mg/dL (8.5-10.1) L 12/23/16 18:55 Total Bilirubin 0.2 mg/dL (0.2-1.0) 12/23/16 18:55 AST 17 U/L (15-37) 12/23/16 18:55 ALT 9 U/L (12-78) L 12/23/16 18:55 Alkaline Phosphatase 87 U/L (45-117) 12/23/16 18:55 Total Protein 5.4 g/dl (6.4-8.2) L D 12/23/16 18:55 Albumin 1.9 g/dl (3.4-5.0) L D 12/23/16 18:55 CARDIAC ENZYMES Creatine Kinase 39 IU/L (26-192) 12/23/16 18:55 Troponin I 0.03 ng/ml (0.00-0.05) 12/23/16 18:55 CXR: Severe Vasc. Congestion CHF Exacerbation - LAsix 40 IV, already given, pt. states she feel much improved - Strict I/o - Fluid/NA restrict - ECHO if not already done - EKG / TROP - Lopressor IV given for tachy Physical Examination Vital Signs: Vital Signs Temperature 98.3 F 12/23/16 17:30 Pulse Rate 141 H 12/23/16 18:48 Respiratory Rate 20 12/23/16 17:30 Blood Pressure 153/123 12/23/16 18:48 O2 Sat by Pulse Oximetry (%) 96 12/23/16 14:51 Labs: CBC, BMP 12/23/16 05:30 12/23/16 18:55
[2016-12-23 20:25] LABS: FREE T4 1.1 ng/dl (0.76-1.46); THYROID STIMULATING HORMONE 13.1 uIU/ml (0.358-3.74)
--- NOTE | 2016-12-23 20:33 | CONSULT ---
Consultation: REQUESTING PROVIDER: CONSULT REQUEST: We have been asked to medically evaluate this patient for tachycardia. HISTORY OF PRESENT ILLNESS: REVIEW OF SYSTEMS: CONSTITUTIONAL: Absent: fever, chills, diaphoresis, generalized weakness, malaise, loss of appetite, weight change HEENT: Absent: rhinorrhea, nasal congestion, throat pain, throat swelling, difficulty swallowing, mouth swelling, ear pain, eye pain, visual changes CARDIOVASCULAR: Absent: chest pain, syncope, palpitations, irregular heart rate, lightheadedness , peripheral edema RESPIRATORY: Absent: cough, shortness of breath, dyspnea with exertion, orthopnea, wheezing, stridor, hemoptysis GASTROINTESTINAL: Absent: abdominal pain, abdominal distension, nausea, vomiting, diarrhea, constipation, melena, hematochezia GENITOURINARY: Absent: dysuria, frequency, urgency, hesitancy, hematuria, flank pain, genital pain MUSCULOSKELETAL: Absent: myalgia, arthralgia, joint swelling, back pain, neck pain SKIN: Absent: rash, itching, pallor HEMATOLOGIC/IMMUNOLOGIC: Absent: easy bleeding, easy bruising, lymphadenopathy, frequent infections ENDOCRINE: Absent: unexplained weight gain, unexplained weight loss, heat intolerance, cold intolerance NEUROLOGIC: Absent: headache, focal weakness or paresthesias, dizziness, unsteady gait, seizure, mental status changes, bladder or bowel incontinence PSYCHIATRIC: Absent: anxiety, depression, suicidal or homicidal ideation, hallucinations. PHYSICAL EXAMINATION Vital Signs - 24 hr 12/22/16 12/22/16 12/23/16 21:00 22:00 01:00 Temperature 98.4 F 98.7 F Pulse Rate 106 H 106 H Respiratory 18 18 Rate Blood Pressure 149/60 157/60 O2 Sat by Pulse 97 98 Oximetry (%) 12/23/16 12/23/16 12/23/16 06:04 09:00 09:58 Temperature 98.7 F 99.0 F Pulse Rate 105 H 108 H Respiratory 18 20 Rate Blood Pressure 150/60 167/70 O2 Sat by Pulse 91 L Oximetry (%) 12/23/16 12/23/16 12/23/16 14:17 14:36 14:51 Temperature 98.9 F Pulse Rate 106 H 97 H Respiratory 20 Rate Blood Pressure 158/70 O2 Sat by Pulse 91 L 96 Oximetry (%) 12/23/16 12/23/16 12/23/16 17:30 18:48 20:08 Temperature 98.3 F Pulse Rate 103 H 141 H 120 H Respiratory 20 Rate Blood Pressure 141/64 153/123 101/55 O2 Sat by Pulse Oximetry (%) GENERAL: Awake, alert, and fully oriented, in no acute distress. HEAD: Normal with no signs of trauma. EYES: Pupils equal, round and reactive to light, extraocular movements intact, sclera anicteric, conjunctiva clear. No lid lag. EARS, NOSE, THROAT: Ears normal, nares patent, oropharynx clear without exudates. Moist mucous membranes. NECK: Normal range of motion, supple without lymphadenopathy, JVD, or masses. LUNGS: Breath sounds equal, clear to auscultation bilaterally. No wheezes, and no crackles. No accessory muscle use. HEART: Regular rate and rhythm, normal S1 and S2 without murmur, rub or gallop. ABDOMEN: Soft, nontender, not distended, normoactive bowel sounds, no guarding, no rebound, no masses. No hepatomegaly or splenomegaly. MUSCULOSKELETAL: Normal range of motion at all joints. No bony deformities or tenderness. No CVA tenderness. UPPER EXTREMITIES: 2+ pulses, warm, well-perfused. No cyanosis. No clubbing. Cap refill <2 seconds. No peripheral edema. LOWER EXTREMITIES: 2+ pulses, warm, well-perfused. No calf tenderness. No peripheral edema. NEUROLOGICAL: Cranial nerves II-XII intact. Normal speech. Normal gait. PSYCHIATRIC: Cooperative. Good eye contact. Appropriate mood and affect. SKIN: Warm, dry, normal turgor, no rashes or lesions noted. Laboratory Results - last 24 hr 12/22/16 12/23/16 12/23/16 22:15 05:30 05:30 WBC 5.4 RBC 2.94 L Hgb 8.9 L Hct 27.3 L MCV 92.9 MCH 30.4 MCHC 32.7 RDW 15.1 Plt Count 319 MPV 8.0 PT with INR 21.60 H INR 1.91 H ABG pH ABG pCO2 at Pt Temp ABG pO2 at Pt Temp ABG HCO3 ABG O2 Sat (Measured) ABG O2 Content ABG Base Excess O2 Delivery Device Sodium Potassium Chloride Carbon Dioxide Anion Gap BUN Creatinine Creat Clearance w eGFR POC Glucometer 127 Random Glucose Calcium Phosphorus Magnesium Total Bilirubin AST ALT Alkaline Phosphatase Creatine Kinase Troponin I Total Protein Albumin 12/23/16 12/23/16 12/23/16 05:30 06:56 11:44 WBC RBC Hgb Hct MCV MCH MCHC RDW Plt Count MPV PT with INR INR ABG pH ABG pCO2 at Pt Temp ABG pO2 at Pt Temp ABG HCO3 ABG O2 Sat (Measured) ABG O2 Content ABG Base Excess O2 Delivery Device Sodium 140 Potassium 3.7 Chloride 100 Carbon Dioxide 29 Anion Gap 11 BUN 11 D Creatinine 0.3 L Creat Clearance w eGFR POC Glucometer 120 138 Random Glucose 109 H Calcium 7.8 L Phosphorus Magnesium Total Bilirubin AST ALT Alkaline Phosphatase Creatine Kinase Troponin I Total Protein Albumin 12/23/16 12/23/16 12/23/16 16:39 18:55 19:20 WBC RBC Hgb Hct MCV MCH MCHC RDW Plt Count MPV PT with INR INR ABG pH 7.29 L ABG pCO2 at Pt Temp 65.2 H* D ABG pO2 at Pt Temp 135.0 H ABG HCO3 30.5 H ABG O2 Sat (Measured) 98.6 ABG O2 Content 14.1 L ABG Base Excess 3.2 H O2 Delivery Device Nrm Sodium 138 Potassium 4.0 Chloride 99 Carbon Dioxide 30 Anion Gap 9 BUN 12 Creatinine 0.5 L D Creat Clearance w eGFR > 60 POC Glucometer 126 Random Glucose 225 H D Calcium 8.2 L Phosphorus 6.4 H D Magnesium 2.0 Total Bilirubin 0.2 AST 17 ALT 9 L Alkaline Phosphatase 87 Creatine Kinase 39 Troponin I 0.03 Total Protein 5.4 L D Albumin 1.9 L D Active Medications Generic Name Dose Route Start Last Admin Trade Name Freq PRN Reason Stop Dose Admin Acetaminophen 650 mg 12/15/16 14:28 12/20/16 00:15 Tylenol - PO 650 mg Q6H PRN Administration FEVER OR PAIN Albuterol Sulfate 2 puff 12/12/16 21:29 Ventolin Hfa Inhaler - IH Q4H PRN SHORT OF BREATH/WHEEZING Albuterol/Ipratropium 1 amp 12/12/16 21:29 12/23/16 12:43 Duoneb - NEB 1 amp Q6H PRN Administration SHORTNESS OF BREATH Amlodipine Besylate 5 mg 12/24/16 10:00 Norvasc - PO DAILY [facility] Anastrozole 1 mg 12/17/16 22:00 12/22/16 22:12 Arimidex - PO 1 mg HS [facility] Administration Carvedilol 12.5 mg 12/23/16 22:00 Coreg - PO BID [facility] Insulin Aspart 1 vial 12/12/16 22:00 12/23/16 17:28 Novolog Vial Sliding Scale - SQ Not Given ACHS [facility] Protocol Metformin HCl 1,000 mg 12/21/16 16:30 12/23/16 17:28 Glucophage - PO 1,000 mg BIDAC [facility] Administration Mometasone Furoate 1 puff 12/22/16 22:00 12/23/16 13:19 Asmanex 110mcg - IH 1 puff BID [facility] Administration Nicotine 7 mg 12/22/16 10:00 12/23/16 10:27 Nicoderm Patch - TD 7 mg DAILY [facility] Administration Nystatin 1 applic 12/13/16 14:00 12/23/16 13:19 Nystop Powder - TP 1 applic TID [facility] Administration Ondansetron HCl 4 mg 12/12/16 21:29 Zofran Injection IVPUSH Q6H PRN NAUSEA Pantoprazole Sodium 40 mg 12/21/16 10:00 12/23/16 10:27 Protonix - PO 40 mg DAILY [facility] Administration Warfarin Sodium 6 mg 12/22/16 18:00 12/23/16 17:28 Coumadin - PO 6 mg DAILY@1800 [facility] Administration Zolpidem Tartrate 5 mg 12/17/16 00:00 12/22/16 22:11 Ambien - PO 5 mg HS PRN Administration INSOMNIA ASSESSMENT/PLAN: Dispo: We will continue to follow the patient. Thank you for this consultative opportunity.
[2016-12-23] MEDS ORDERED: PT OWN MED DRAWER 7, Y5N ONE (22:51)
[2016-12-23] MEDS ORDERED: INSULIN (NOVOLOG) ASPART 100 UNITS/ML 10ML VIAL ONE (22:53)
[2016-12-23] MEDS: ANASTROZOLE 1 MG TABLET PO SCH (23:03)
[2016-12-23] MEDS: CARVEDILOL 12.5 MG TABLET (FP) PO SCH (23:03)
[2016-12-24] MEDS: NYSTATIN POWDER 100,000 UNITS/GM - 15 GM TOPICAL POWDER TP SCH ×3 (06:16→23:20)
[2016-12-24] MEDS: metFORMIN HCL 500 MG TABLET (FP) PO SCH ×2 (06:16→17:07)
[2016-12-24] MEDS: INSULIN SLIDING SCALE (NOVOLOG) 1 VIAL SQ SCH ×4 (06:16→22:57)
[2016-12-24 06:43] LABS: INR 2.65 (0.82-1.09)
[2016-12-24 06:54] LABS: MCH 30.6 pg (25.7-33.7); MCHC 32.8 g/dl (32.0-36.0); MEAN CELL VOLUME 93.2 fl (80-96); MEAN PLT VOLUME 8.2 fl (7.5-11.1); PLATELET COUNT 339 K/MM3 (134-434); RDW 15.6 % (11.6-15.6); WHITE BLOOD COUNT 6.4 K/mm3 (4.0-10.0)
[2016-12-24 07:00] LABS: ALBUMIN 1.9 g/dl (3.4-5.0); ANION GAP 10 (8-16); BILIRUBIN,TOTAL 0.2 mg/dL (0.2-1.0); CALCIUM 8.3 mg/dL (8.5-10.1); CO2 32 mmol/L (21-32); CREATININE 0.3 mg/dL (0.55-1.02); GLUCOSE,RANDOM 101 mg/dL (74-106); SGOT/AST 15 U/L (15-37); SGPT/ALT 9 U/L (12-78); TOT PROT 5.2 g/dl (6.4-8.2)
[2016-12-24 07:01] LABS: ALK PHOS 73 U/L (45-117)
[2016-12-24] MEDS ORDERED: PT OWN MED DRAWER 7, Y5N ONE ×3 (09:12→23:08)
[2016-12-24] MEDS ORDERED: WARFARIN NA 3 MG TABLET PO SCH (09:23)
[2016-12-24] MEDS ORDERED: FUROSEMIDE 40 MG/4 ML INJECTABLE VIAL ONE (09:26)
[2016-12-24] MEDS: PANTOPRAZOLE 40 MG TABLET (FP) PO SCH (09:29)
[2016-12-24] MEDS: CARVEDILOL 12.5 MG TABLET (FP) PO SCH ×2 (09:29→22:57)
[2016-12-24] MEDS: NICOTINE 7 MG/24 HOURS TOPICAL PATCH TD SCH (09:29)
[2016-12-24] MEDS: MOMETASONE FUROATE 110 MCG/IH INHALER IH SCH ×2 (09:29→22:58)
[2016-12-24] MEDS ORDERED: FUROSEMIDE 40 MG/4 ML INJECTABLE VIAL IVPB ONE (09:30)
--- NOTE | 2016-12-24 09:31 | PN ---
Progress Note, Physician History of Present Illness: I am aware of last night events. Pt w/o F, C, SOB, CP. palp, N, V, abd pain. Pt with decreased cough. - Current Medication List Current Medications: Active Medications Acetaminophen (Tylenol -) 650 mg PO Q6H PRN PRN Reason: FEVER OR PAIN Last Admin: 12/20/16 00:15 Dose: 650 mg Albuterol Sulfate (Ventolin Hfa Inhaler -) 2 puff IH Q4H PRN PRN Reason: SHORT OF BREATH/WHEEZING Albuterol/Ipratropium (Duoneb -) 1 amp NEB Q6H PRN PRN Reason: SHORTNESS OF BREATH Last Admin: 12/23/16 12:43 Dose: 1 amp Anastrozole (Arimidex -) 1 mg PO HS [facility] Last Admin: 12/23/16 23:03 Dose: 1 mg Carvedilol (Coreg -) 12.5 mg PO BID [facility] Last Admin: 12/23/16 23:03 Dose: 12.5 mg Furosemide (Lasix Injection -) 40 mg IVPB ONCE ONE Stop: 12/24/16 09:19 Insulin Aspart (Novolog Vial Sliding Scale -) 1 vial SQ ACHS [facility] PRN Reason: Protocol Last Admin: 12/24/16 06:16 Dose: Not Given Metformin HCl (Glucophage -) 1,000 mg PO BIDAC [facility] Last Admin: 12/24/16 06:16 Dose: Not Given Mometasone Furoate (Asmanex 110mcg -) 1 puff IH BID [facility] Last Admin: 12/23/16 23:03 Dose: 1 puff Nicotine (Nicoderm Patch -) 7 mg TD DAILY [facility] Last Admin: 12/23/16 10:27 Dose: 7 mg Nystatin (Nystop Powder -) 1 applic TP TID [facility] Last Admin: 12/24/16 06:16 Dose: 1 applic Ondansetron HCl (Zofran Injection) 4 mg IVPUSH Q6H PRN PRN Reason: NAUSEA Pantoprazole Sodium (Protonix -) 40 mg PO DAILY [facility] Last Admin: 12/23/16 10:27 Dose: 40 mg Warfarin Sodium (Coumadin -) 1 mg PO DAILY@1800 [facility] Zolpidem Tartrate (Ambien -) 5 mg PO HS PRN PRN Reason: INSOMNIA Last Admin: 12/22/16 22:11 Dose: 5 mg - Objective Vital Signs: Vital Signs Temperature 98.0 F 12/24/16 06:00 Pulse Rate 96 H 12/24/16 06:00 Respiratory Rate 24 12/24/16 06:00 Blood Pressure 131/62 12/24/16 06:00 O2 Sat by Pulse Oximetry (%) 96 12/23/16 23:00 Constitutional: Yes: No Distress, Calm, Other (on FM 50 % O2) Cardiovascular: Yes: Regular Rate and Rhythm, S1, S2 Respiratory: Yes: Regular, Wheezes (expiratory wheezing bilat.), Other ( decreased BS at left base.) Gastrointestinal: Yes: Normal Bowel Sounds, Soft. No: Tenderness Edema: LLE: Trace, RLE: Trace Neurological: Yes: Alert, Oriented Labs: CBC, BMP 12/24/16 05:35 12/24/16 05:35 INR, PTT INR 2.65 (0.82-1.09) H D 12/24/16 05:35 - ....Imaging Chest X-ray: Report Reviewed, Image Reviewed (improved) Problem List - Problems (1) Perforated sigmoid colon Code(s): K63.1 - PERFORATION OF INTESTINE (NONTRAUMATIC) (2) Colostomy in place Code(s): Z93.3 - COLOSTOMY STATUS (3) Dilatation of colon Code(s): K59.39 - OTHER MEGACOLON (4) LLQ pain Code(s): R10.32 - LEFT LOWER QUADRANT PAIN (5) Cancer of left breast Code(s): C50.912 - MALIGNANT NEOPLASM OF UNSPECIFIED SITE OF LEFT FEMALE BREAST Qualifiers: Breast location: upper outer quadrant of breast Estrogen receptor status: positive Patient sex: female Qualified Code(s): C50.412 - Malignant neoplasm of upper-outer quadrant of left female breast; C50.412 - Malignant neoplasm of upper-outer quadrant of left female breast; C50.412 - Malignant neoplasm of upper-outer quadrant of left female breast; C50.412 - Malignant neoplasm of upper-outer quadrant of left female breast; Z17.0 - Estrogen receptor positive status [ER+]; Z17.0 - Estrogen receptor positive status [ER+] (6) Diabetes mellitus type 2, noninsulin dependent Code(s): E11.9 - TYPE 2 DIABETES MELLITUS WITHOUT COMPLICATIONS (7) H/O: CVA (cerebrovascular accident) Code(s): Z86.73 - PRSNL HX OF TIA (TIA), AND CEREB INFRC W/O RESID DEFICITS (8) Supratherapeutic INR Code(s): R79.1 - ABNORMAL COAGULATION PROFILE (9) Hypertension Code(s): I10 - ESSENTIAL (PRIMARY) HYPERTENSION Qualifiers: Hypertension type: essential hypertension Qualified Code(s): I10 - Essential (primary) hypertension; I10 - Essential (primary) hypertension; I10 - Essential (primary) hypertension (10) COPD (chronic obstructive pulmonary disease) Code(s): J44.9 - CHRONIC OBSTRUCTIVE PULMONARY DISEASE, UNSPECIFIED (11) Hypomagnesemia Code(s): E83.42 - HYPOMAGNESEMIA (12) Hypophosphatemia Code(s): E83.39 - OTHER DISORDERS OF PHOSPHORUS METABOLISM (13) Hypoalbuminemia Code(s): E88.09 - OTH DISORDERS OF PLASMA-PROTEIN METABOLISM, NEC (14) Hypokalemia Code(s): E87.6 - HYPOKALEMIA (15) Subtherapeutic anticoagulation Code(s): Z51.81 - ENCOUNTER FOR THERAPEUTIC DRUG LEVEL MONITORING Z79.01 - SHELTER (CURRENT) USE OF 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 (16) Acute pulmonary edema Code(s): J81.0 - ACUTE PULMONARY EDEMA (17) Acute exacerbation of congestive heart failure Code(s): I50.9 - HEART FAILURE, UNSPECIFIED Qualifiers: Congestive heart failure type: combined Qualified Code(s): I50.43 - Acute on chronic combined systolic (congestive) and diastolic (congestive) heart failure; I50.43 - Acute on chronic combined systolic (congestive) and diastolic (congestive) heart failure; I50.43 - Acute on chronic combined systolic (congestive) and diastolic (congestive) heart failure; I50.43 - Acute on chronic combined systolic (congestive) and diastolic (congestive) heart failure (18) Tachycardia Code(s): R00.0 - TACHYCARDIA, UNSPECIFIED (19) Hypoxemia Code(s): R09.02 - HYPOXEMIA (20) Acute respiratory acidosis Code(s): E87.2 - ACIDOSIS Assessment/Plan Pt received last night Lasix IVP, Metoprolol IVP, carvedilol dose was increased ; later O2 supplementation was lowered from NR to 50%. TO repeate ABG, GIve Lasix IV. Request ECHO. TO f/u with Pulmonary. CXardio Consult- case was d/w Dr. Coombs Pt finished IV abtx Pt on Flagyl ( for 8 more days). Monitor and replete electrolytes. AM labs. Coumadin to be adjusted, INR in AM. Case was d/w pt's nurse. Time spent for managing pt's care: over 40 minutes
[2016-12-24 09:57] LABS: ARTERIAL BLD GAS O2 SATURATION 98.3 % (90-98.9); ARTERIAL BLOOD GAS BASE EXCESS 8.3 meq/l (-2-2); ARTERIAL BLOOD GAS HCO3 33.6 meq/L (22-26); ARTERIAL BLOOD GAS pH 7.41 (7.35-7.45)
[2016-12-24 09:59] LABS: TYPE OF O2 50% VENTI MASK
[2016-12-24] MEDS ORDERED: amLODIPine BESYLATE 5 MG TABLET (FP) PO SCH (10:00)
[2016-12-24] MEDS: ALBUTEROL SO4 2.5/IPRATROPIUM 0.5 INH SOL 3 ML VIAL.NEB. NEB PRN (10:20)
--- NOTE | 2016-12-24 11:17 | CON.CARD ---
Consult Consult Specialty:: Cardiology Referred by:: Landen Shay MD Reason for Consultation:: Acute pulmonary edema - History of Present Illness Chief Complaint: Dyspnea History of Present Illness: This is a 66 year old female with past medical history significant for Diabetes , smoker, recent augmentin use for respiratory infection, HTN/HCVD, CVA with MCA thrombus, hyperlipidemia initially presented with LLQ pain, anorexia, diarrhea while on augmentin and stopped her course early due to the diarrhea. She was found to have perforated sigmoid colon possibly secondary to C. diff megacolon and underwent sigmoid resection with colostomy (Dwaine's procedure) and was planned for transfer to SNF when she experienced dyspnea, tachypnea, BP elevated, improved with initiation of IV diuresis and O2. 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 No: Colonoscopy (never had) Additional Surgical History: basal cell CA removed from lip, back, right forearm - Alcohol/Substance Use Hx Alcohol Use: No (social in past, not recently) History of Substance Use: reports: None - Smoking History Smoking history: Current every day smoker Have you smoked in the past 12 months: Yes Aproximately how many cigarettes per day: 20 (2ppd x 50y, cut down to 1ppd ~ 2012 after stroke) - Social History Usual Living Arrangement: With Spouse Home Medications - Allergies Allergies/Adverse Reactions: Allergies Allergy/AdvReac Type Severity Reaction Status Date / Time No Known Allergies Allergy Verified 12/08/16 11:22 - Home Medications Home Medications: Ambulatory Orders Atorvastatin Ca [Lipitor] 20 mg PO HS #0 tablet 10/31/12 Carvedilol [Coreg] 6.25 mg PO BID 01/15/13 Metformin HCl [Glucophage] 1,000 mg PO BID 05/24/16 Anastrozole [Arimidex -] 1 mg PO HS 12/08/16 Calcium Carbonate/Vitamin D3 [Calcium 500-Vit D3 600 Tablet] 2 each PO DAILY 11/16 Cyanocobalamin (Vitamin B-12) [B-12] 1,000 mcg PO DAILY 12/08/16 Acetaminophen [Tylenol .Regular Strength -] 650 mg PO Q6H PRN #0 tablet Albuterol 2.5/Ipratropium 0.5 [Duoneb -] 1 amp NEB Q6H PRN #0 amp 12/23/16 Amlodipine Besylate [Norvasc -] 5 mg PO DAILY tablet 12/23/16 Amlodipine Besylate [Norvasc -] 5 mg PO HS tablet 12/23/16 Insulin Sliding Scale [Novolog Vial Sliding Scale -] 1 vial SQ ACHS units 12/23 Mometasone Furoate [Asmanex 110Mcg -] 1 puff IH BID inhaler 12/23/16 Nicotine Patch [Nicoderm Patch -] 7 mg TD DAILY patch 12/23/16 Nystatin Powder [Nystop Powder -] 1 applic TP TID applic 12/23/16 Pantoprazole Sodium [Protonix -] 40 mg PO DAILY #15 tablet 12/23/16 Warfarin Na [Coumadin -] 6 mg PO DAILY@1800 tablet 12/23/16 Zolpidem Tartrate [Ambien] 5 mg PO HS PRN #15 tablet MDD 1 12/23/16 Family Disease History - Family Disease History Other Family History: multiple family members with cancer history Review of Systems - Review of Systems Cardiovascular: reports: Shortness of Breath Respiratory: reports: Cough, SOB Vital Signs: Vital Signs Temperature 98.0 F 12/24/16 06:00 Pulse Rate 96 H 12/24/16 06:00 Respiratory Rate 24 12/24/16 06:00 Blood Pressure 131/62 12/24/16 06:00 O2 Sat by Pulse Oximetry (%) 95 12/24/16 09:00 Constitutional: Yes: No Distress, Calm Neck: Yes: Supple Respiratory: Yes: Regular, Diminished, On Venti-Mask Gastrointestinal: Yes: Normal Bowel Sounds, Soft, Other (Colostomy in place) Cardiovascular: Yes: Regular Rate and Rhythm JVD: No Carotid Bruit: No Heart Sounds: Yes: S1, S2 Murmur: Yes: Systolic Murmur, Grade 1 Edema: Yes Edema: LLE: 1+, RLE: 1+ - Other Data Labs, Other Data: CBC, BMP 12/24/16 05:35 12/24/16 05:35 INR, PTT INR 2.65 (0.82-1.09) H D 12/24/16 05:35 Troponin, BNP 12/23/16 12/23/16 12/23/16 18:55 21:30 21:30 Troponin I 0.03 0.11 H B-Natriuretic Peptide 5734.62 H 12/24/16 04:00 Troponin I 0.19 H B-Natriuretic Peptide Troponin, BNP 12/23/16 12/23/16 12/23/16 18:55 21:30 21:30 Troponin I 0.03 0.11 H B-Natriuretic Peptide 5734.62 H 12/24/16 04:00 Troponin I 0.19 H B-Natriuretic Peptide ST @ 121 with PVC Imaging - Results Chest X-ray: Report Reviewed (Severe CHF improving) EKG: Report Reviewed (ST @ 121 PVC) Problem List - Problems (1) Acute exacerbation of congestive heart failure Code(s): I50.9 - HEART FAILURE, UNSPECIFIED Qualifiers: Congestive heart failure type: combined Qualified Code(s): I50.43 - Acute on chronic combined systolic (congestive) and diastolic (congestive) heart failure; I50.43 - Acute on chronic combined systolic (congestive) and diastolic (congestive) heart failure; I50.43 - Acute on chronic combined systolic (congestive) and diastolic (congestive) heart failure; I50.43 - Acute on chronic combined systolic (congestive) and diastolic (congestive) heart failure (2) Acute pulmonary edema Code(s): J81.0 - ACUTE PULMONARY EDEMA (3) Colostomy in place Code(s): Z93.3 - COLOSTOMY STATUS (4) Diabetes mellitus type 2, noninsulin dependent Code(s): E11.9 - TYPE 2 DIABETES MELLITUS WITHOUT COMPLICATIONS (5) H/O: CVA (cerebrovascular accident) Code(s): Z86.73 - PRSNL HX OF TIA (TIA), AND CEREB INFRC W/O RESID DEFICITS (6) Perforated sigmoid colon Code(s): K63.1 - PERFORATION OF INTESTINE (NONTRAUMATIC) (7) Acute respiratory failure with hypoxia and hypercapnia Code(s): J96.01 - ACUTE RESPIRATORY FAILURE WITH HYPOXIA J96.02 - ACUTE RESPIRATORY FAILURE WITH HYPERCAPNIA (8) Tobacco abuse Code(s): Z72.0 - TOBACCO USE (9) Anticoagulant long-term use Code(s): Z79.01 - [facility] (CURRENT) USE OF 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 (10) Hypertensive emergency Code(s): I16.1 - HYPERTENSIVE EMERGENCY (11) Subendocardial ischemia Code(s): I24.8 - OTHER FORMS OF ACUTE ISCHEMIC HEART DISEASE (12) Anemia Code(s): D64.9 - ANEMIA, UNSPECIFIED Qualifiers: Anemia type: unspecified type Qualified Code(s): D64.9 - Anemia, unspecified; D64.9 - Anemia, unspecified Assessment/Plan 1. Acute on chronic systolic failure with acute pulmonary edema and subendocardial ischemic injury improving 2. Acute hypoxic and hypercapenic respiratory failure 3. Perforated sigmoid colon (pathology c/w ischemic colitis) post resection ( Dwaine's procedure) 4. H/o CVA with left MCA thrombus with therapeutic INR 5. COPD 6. HTN/HCVD 7. Hyperlipidemia 8. Anemia P:1. IV diuresis with monitor diuretic response, renal fxn and electrolytes, wean FIO2 per saO2, trend trops to document peak 2. Echocardiogram to assess ventricular and valve fxn 3. Renovascular dopplers to exclude renal artery stenosis 4. Complete abx course, coumadin per INR, colostomy and wound care 5. Continue carvedilol 12.5 bid, start Diovan 80 qd with uptitration as hemodynamics tolerate 6. GI prophylaxis 7. Thank you for consultative opportunity
[2016-12-24] MEDS ORDERED: VALSARTAN 80 MG TABLET (UD) PO SCH (11:45)
[2016-12-24] MEDS: FUROSEMIDE 40 MG/4 ML INJECTABLE VIAL IVPUSH SCH (17:07)
[2016-12-24] MEDS ORDERED: WARFARIN NA 1 MG TABLET (FP) PO SCH (18:00)
[2016-12-24] MEDS: ANASTROZOLE 1 MG TABLET PO SCH (22:57)
[2016-12-24] MEDS: ZOLPIDEM TARTRATE 5 MG TABLET PO PRN (23:19)
[2016-12-25] MEDS: INSULIN SLIDING SCALE (NOVOLOG) 1 VIAL SQ SCH ×4 (06:08→22:42)
[2016-12-25 06:28] LABS: MCH 31.2 pg (25.7-33.7); MCHC 33.6 g/dl (32.0-36.0); MEAN CELL VOLUME 92.7 fl (80-96); MEAN PLT VOLUME 7.8 fl (7.5-11.1); PLATELET COUNT 349 K/MM3 (134-434); RDW 15.2 % (11.6-15.6); WHITE BLOOD COUNT 5.4 K/mm3 (4.0-10.0)
[2016-12-25 06:38] LABS: INR 2.78 (0.82-1.09); PROTHROMBIN TIME (PATIENT) 31.4 SEC (9.98-11.88)
[2016-12-25] MEDS: metFORMIN HCL 500 MG TABLET (FP) PO SCH ×3 (06:50→17:22)
[2016-12-25] MEDS: NYSTATIN POWDER 100,000 UNITS/GM - 15 GM TOPICAL POWDER TP SCH ×3 (06:51→22:40)
[2016-12-25 06:53] LABS: ALK PHOS 62 U/L (45-117); ANION GAP 7 (8-16); BILIRUBIN,TOTAL 0.3 mg/dL (0.2-1.0); CALCIUM 8.1 mg/dL (8.5-10.1); CO2 37 mmol/L (21-32); CREATININE 0.3 mg/dL (0.55-1.02); GLUCOSE,RANDOM 96 mg/dL (74-106); SGOT/AST 13 U/L (15-37); SGPT/ALT 7 U/L (12-78)
[2016-12-25 07:19] LABS: CPK 22 IU/L (26-192); TROPONIN I 0.09 ng/ml (0.00-0.05)
--- NOTE | 2016-12-25 10:44 | EKG ---
Test Reason : Blood Pressure : / mmHG Vent. Rate : 121 BPM Atrial Rate : 121 BPM P-R Int : 158 ms QRS Dur : 096 ms QT Int : 334 ms P-R-T Axes : 054 076 186 degrees QTc Int : 474 ms SINUS TACHYCARDIA WITH OCCASIONAL PREMATURE VENTRICULAR COMPLEXES ABNORMAL ECG WHEN COMPARED WITH ECG OF 23-DEC-2016 17:53, PREMATURE VENTRICULAR COMPLEXES ARE NOW PRESENT Confirmed by MARCE HERNANDEZ MD ([id number]) on 12/25/2016 10:44:03 AM Referred By: Vi Vora Confirmed By:MARCE HERNANDEZ MD
[2016-12-25] MEDS: FUROSEMIDE 40 MG/4 ML INJECTABLE VIAL IVPUSH SCH (10:48)
[2016-12-25] MEDS: NICOTINE 7 MG/24 HOURS TOPICAL PATCH TD SCH (10:48)
[2016-12-25] MEDS: MOMETASONE FUROATE 110 MCG/IH INHALER IH SCH ×2 (10:49→22:40)
[2016-12-25] MEDS ORDERED: INSULIN (NOVOLOG) ASPART 100 UNITS/ML 10ML VIAL ONE (11:25)
--- NOTE | 2016-12-25 11:35 | PN ---
Progress Note, Physician History of Present Illness: Dyspnea continues to improve and weight decreased 4 lbs with diuresis. - Current Medication List Current Medications: Active Medications Acetaminophen (Tylenol -) 650 mg PO Q6H PRN PRN Reason: FEVER OR PAIN Last Admin: 12/20/16 00:15 Dose: 650 mg Albuterol Sulfate (Ventolin Hfa Inhaler -) 2 puff IH Q4H PRN PRN Reason: SHORT OF BREATH/WHEEZING Albuterol/Ipratropium (Duoneb -) 1 amp NEB Q6H PRN PRN Reason: SHORTNESS OF BREATH Last Admin: 12/24/16 10:20 Dose: 1 amp Anastrozole (Arimidex -) 1 mg PO HS [facility] Last Admin: 12/24/16 22:57 Dose: 1 mg Carvedilol (Coreg -) 12.5 mg PO BID [facility] Last Admin: 12/24/16 22:57 Dose: 12.5 mg Furosemide (Lasix Injection -) 40 mg IVPUSH DAILY [facility] Last Admin: 12/25/16 10:48 Dose: 40 mg Insulin Aspart (Novolog Vial Sliding Scale -) 1 vial SQ ACHS [facility] PRN Reason: Protocol Last Admin: 12/25/16 06:08 Dose: Not Given Metformin HCl (Glucophage -) 1,000 mg PO BIDAC [facility] Last Admin: 12/25/16 06:50 Dose: Not Given Mometasone Furoate (Asmanex 110mcg -) 1 puff IH BID [facility] Last Admin: 12/25/16 10:49 Dose: 1 puff Nicotine (Nicoderm Patch -) 7 mg TD DAILY [facility] Last Admin: 12/25/16 10:48 Dose: 7 mg Nystatin (Nystop Powder -) 1 applic TP TID [facility] Last Admin: 12/25/16 06:51 Dose: 1 applic Ondansetron HCl (Zofran Injection) 4 mg IVPUSH Q6H PRN PRN Reason: NAUSEA Pantoprazole Sodium (Protonix -) 40 mg PO DAILY [facility] Last Admin: 12/24/16 09:29 Dose: 40 mg Valsartan (Diovan -) 80 mg PO DAILY [facility] Last Admin: 12/24/16 12:07 Dose: 80 mg Warfarin Sodium (Coumadin -) 6 mg PO DAILY@1800 [facility] Zolpidem Tartrate (Ambien -) 5 mg PO HS PRN PRN Reason: INSOMNIA Last Admin: 12/24/16 23:19 Dose: 5 mg - Objective Vital Signs: Vital Signs Temperature 98.4 F 12/25/16 10:00 Pulse Rate 90 12/25/16 10:00 Respiratory Rate 20 12/25/16 10:00 Blood Pressure 151/55 12/25/16 10:00 O2 Sat by Pulse Oximetry (%) 97 12/24/16 21:00 Constitutional: Yes: No Distress, Calm, Thin Neck: Yes: Supple Cardiovascular: Yes: Regular Rate and Rhythm, Murmur (2/6 SM) Respiratory: Yes: Regular, Diminished Gastrointestinal: Yes: Normal Bowel Sounds, Soft Edema: No Labs: CBC, BMP 12/25/16 05:35 12/25/16 05:35 INR, PTT INR 2.78 (0.82-1.09) H 12/25/16 05:35 Problem List - Problems (1) Acute exacerbation of congestive heart failure Code(s): I50.9 - HEART FAILURE, UNSPECIFIED Qualifiers: Congestive heart failure type: combined Qualified Code(s): I50.43 - Acute on chronic combined systolic (congestive) and diastolic (congestive) heart failure; I50.43 - Acute on chronic combined systolic (congestive) and diastolic (congestive) heart failure; I50.43 - Acute on chronic combined systolic (congestive) and diastolic (congestive) heart failure; I50.43 - Acute on chronic combined systolic (congestive) and diastolic (congestive) heart failure (2) Acute pulmonary edema Code(s): J81.0 - ACUTE PULMONARY EDEMA (3) Colostomy in place Code(s): Z93.3 - COLOSTOMY STATUS (4) Diabetes mellitus type 2, noninsulin dependent Code(s): E11.9 - TYPE 2 DIABETES MELLITUS WITHOUT COMPLICATIONS (5) H/O: CVA (cerebrovascular accident) Code(s): Z86.73 - PRSNL HX OF TIA (TIA), AND CEREB INFRC W/O RESID DEFICITS (6) Perforated sigmoid colon Code(s): K63.1 - PERFORATION OF INTESTINE (NONTRAUMATIC) (7) Acute respiratory failure with hypoxia and hypercapnia Code(s): J96.01 - ACUTE RESPIRATORY FAILURE WITH HYPOXIA J96.02 - ACUTE RESPIRATORY FAILURE WITH HYPERCAPNIA (8) Tobacco abuse Code(s): Z72.0 - TOBACCO USE (9) Anticoagulant long-term use Code(s): Z79.01 - PENITENTIARY (CURRENT) USE OF 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 (10) Hypertensive emergency Code(s): I16.1 - HYPERTENSIVE EMERGENCY (11) Subendocardial ischemia Code(s): I24.8 - OTHER FORMS OF ACUTE ISCHEMIC HEART DISEASE (12) Anemia Code(s): D64.9 - ANEMIA, UNSPECIFIED Qualifiers: Anemia type: unspecified type Qualified Code(s): D64.9 - Anemia, unspecified; D64.9 - Anemia, unspecified Assessment/Plan 12/24/2016 Echo: Normal LV size with moderate decreased LV fxn, mild pericardial effusion, mild ASHLEY, mod MR, mild AK, TR 1. Acute on chronic systolic failure with acute pulmonary edema and subendocardial ischemic injury improving 2. Acute hypoxic and hypercapenic respiratory failure 3. Perforated sigmoid colon (pathology c/w ischemic colitis) post resection ( Dwaine's procedure) 4. H/o CVA with left MCA thrombus with therapeutic INR 5. COPD 6. HTN/HCVD 7. Hyperlipidemia 8. Anemia P:1. Decrease Lasix 40 IV qd and add Aldactone 25 qd with monitor diuretic response, renal fxn and electrolytes, wean FIO2 per saO2, trops have peaked 3. F/u renovascular dopplers to exclude renal artery stenosis 4. Complete abx course, coumadin per INR, colostomy and wound care 5. Continue carvedilol 12.5 bid, increase Diovan 160 qd with uptitration as hemodynamics tolerate 6. GI prophylaxis
[2016-12-25] MEDS: PANTOPRAZOLE 40 MG TABLET (FP) PO SCH (13:05)
[2016-12-25] MEDS: SPIRONOLACTONE 25 MG TABLET (FP) PO SCH (13:05)
[2016-12-25] MEDS: VALSARTAN 160 MG TABLET (UD) PO SCH (13:05)
[2016-12-25] MEDS: CARVEDILOL 12.5 MG TABLET (FP) PO SCH ×2 (13:05→22:41)
[2016-12-25] MEDS: WARFARIN NA 3 MG TABLET PO SCH (17:22)
[2016-12-25] MEDS: ALBUTEROL SO4 2.5/IPRATROPIUM 0.5 INH SOL 3 ML VIAL.NEB. NEB PRN (19:00)
[2016-12-25] MEDS ORDERED: POTASSIUM CHLORIDE TABS 20 MEQ TABLET.ER (FP) PO ONE ×2 (22:00→23:45)
--- NOTE | 2016-12-25 22:35 | PN ---
Progress Note, Physician History of Present Illness: Pt w/o SOB, CP. palp, dizziness, N, V, abd pain. Pt with decreased cough. Pt's breathing is better than yesterday. - Current Medication List Current Medications: Active Medications Acetaminophen (Tylenol -) 650 mg PO Q6H PRN PRN Reason: FEVER OR PAIN Last Admin: 12/20/16 00:15 Dose: 650 mg Albuterol Sulfate (Ventolin Hfa Inhaler -) 2 puff IH Q4H PRN PRN Reason: SHORT OF BREATH/WHEEZING Albuterol/Ipratropium (Duoneb -) 1 amp NEB Q6H PRN PRN Reason: SHORTNESS OF BREATH Last Admin: 12/25/16 19:00 Dose: 1 amp Anastrozole (Arimidex -) 1 mg PO HS [facility] Last Admin: 12/24/16 22:57 Dose: 1 mg Carvedilol (Coreg -) 12.5 mg PO BID [facility] Last Admin: 12/25/16 13:05 Dose: 12.5 mg Furosemide (Lasix Injection -) 40 mg IVPUSH DAILY [facility] Last Admin: 12/25/16 10:48 Dose: 40 mg Insulin Aspart (Novolog Vial Sliding Scale -) 1 vial SQ ACHS [facility] PRN Reason: Protocol Last Admin: 12/25/16 17:05 Dose: Not Given Metformin HCl (Glucophage -) 1,000 mg PO BIDAC [facility] Last Admin: 12/25/16 17:22 Dose: 1,000 mg Mometasone Furoate (Asmanex 110mcg -) 1 puff IH BID [facility] Last Admin: 12/25/16 10:49 Dose: 1 puff Nicotine (Nicoderm Patch -) 7 mg TD DAILY [facility] Last Admin: 12/25/16 10:48 Dose: 7 mg Nystatin (Nystop Powder -) 1 applic TP TID [facility] Last Admin: 12/25/16 13:06 Dose: 1 applic Ondansetron HCl (Zofran Injection) 4 mg IVPUSH Q6H PRN PRN Reason: NAUSEA Pantoprazole Sodium (Protonix -) 40 mg PO DAILY [facility] Last Admin: 12/25/16 13:05 Dose: 40 mg Spironolactone (Aldactone -) 25 mg PO DAILY [facility] Last Admin: 12/25/16 13:05 Dose: 25 mg Valsartan (Diovan -) 160 mg PO DAILY [facility] Last Admin: 12/25/16 13:05 Dose: 160 mg Warfarin Sodium (Coumadin -) 6 mg PO DAILY@1800 [facility] Last Admin: 12/25/16 17:22 Dose: 6 mg Zolpidem Tartrate (Ambien -) 5 mg PO HS PRN PRN Reason: INSOMNIA Last Admin: 12/24/16 23:19 Dose: 5 mg - Objective Vital Signs: Vital Signs Temperature 99.6 F 12/25/16 18:00 Pulse Rate 90 12/25/16 18:00 Respiratory Rate 20 12/25/16 18:00 Blood Pressure 110/60 12/25/16 18:00 O2 Sat by Pulse Oximetry (%) 97 12/25/16 09:00 Constitutional: Yes: No Distress, Calm Cardiovascular: Yes: Regular Rate and Rhythm, S1, S2 Respiratory: Yes: Regular, CTA Bilaterally, Rales Gastrointestinal: Yes: Normal Bowel Sounds, Soft Edema: LLE: Trace, RLE: Trace Neurological: Yes: Alert, Oriented Labs: CBC, BMP 12/25/16 05:35 12/25/16 05:35 INR, PTT INR 2.78 (0.82-1.09) H 12/25/16 05:35 Problem List - Problems (1) Perforated sigmoid colon Code(s): K63.1 - PERFORATION OF INTESTINE (NONTRAUMATIC) (2) Colostomy in place Code(s): Z93.3 - COLOSTOMY STATUS (3) Dilatation of colon Code(s): K59.39 - OTHER MEGACOLON (4) LLQ pain Code(s): R10.32 - LEFT LOWER QUADRANT PAIN (5) Cancer of left breast Code(s): C50.912 - MALIGNANT NEOPLASM OF UNSPECIFIED SITE OF LEFT FEMALE BREAST Qualifiers: Breast location: upper outer quadrant of breast Estrogen receptor status: positive Patient sex: female Qualified Code(s): C50.412 - Malignant neoplasm of upper-outer quadrant of left female breast; C50.412 - Malignant neoplasm of upper-outer quadrant of left female breast; C50.412 - Malignant neoplasm of upper-outer quadrant of left female breast; C50.412 - Malignant neoplasm of upper-outer quadrant of left female breast; Z17.0 - Estrogen receptor positive status [ER+]; Z17.0 - Estrogen receptor positive status [ER+] (6) Diabetes mellitus type 2, noninsulin dependent Code(s): E11.9 - TYPE 2 DIABETES MELLITUS WITHOUT COMPLICATIONS (7) H/O: CVA (cerebrovascular accident) Code(s): Z86.73 - PRSNL HX OF TIA (TIA), AND CEREB INFRC W/O RESID DEFICITS (8) Supratherapeutic INR Code(s): R79.1 - ABNORMAL COAGULATION PROFILE (9) Hypertension Code(s): I10 - ESSENTIAL (PRIMARY) HYPERTENSION Qualifiers: Hypertension type: essential hypertension Qualified Code(s): I10 - Essential (primary) hypertension; I10 - Essential (primary) hypertension; I10 - Essential (primary) hypertension (10) COPD (chronic obstructive pulmonary disease) Code(s): J44.9 - CHRONIC OBSTRUCTIVE PULMONARY DISEASE, UNSPECIFIED (11) Hypomagnesemia Code(s): E83.42 - HYPOMAGNESEMIA (12) Hypophosphatemia Code(s): E83.39 - OTHER DISORDERS OF PHOSPHORUS METABOLISM (13) Hypoalbuminemia Code(s): E88.09 - OTH DISORDERS OF PLASMA-PROTEIN METABOLISM, NEC (14) Hypokalemia Code(s): E87.6 - HYPOKALEMIA (15) Subtherapeutic anticoagulation Code(s): Z51.81 - ENCOUNTER FOR THERAPEUTIC DRUG LEVEL MONITORING Z79.01 - RETIREMENT (CURRENT) USE OF 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 (16) Acute pulmonary edema Code(s): J81.0 - ACUTE PULMONARY EDEMA (17) Acute exacerbation of congestive heart failure Code(s): I50.9 - HEART FAILURE, UNSPECIFIED Qualifiers: Congestive heart failure type: combined Qualified Code(s): I50.43 - Acute on chronic combined systolic (congestive) and diastolic (congestive) heart failure; I50.43 - Acute on chronic combined systolic (congestive) and diastolic (congestive) heart failure; I50.43 - Acute on chronic combined systolic (congestive) and diastolic (congestive) heart failure; I50.43 - Acute on chronic combined systolic (congestive) and diastolic (congestive) heart failure (18) Tachycardia Code(s): R00.0 - TACHYCARDIA, UNSPECIFIED (19) Hypoxemia Code(s): R09.02 - HYPOXEMIA (20) Acute respiratory acidosis Code(s): E87.2 - ACIDOSIS (21) Subendocardial ischemia Assessment/Plan: Trop I is trending down Code(s): I24.8 - OTHER FORMS OF ACUTE ISCHEMIC HEART DISEASE Assessment/Plan IV Lasix- to monitor renal function. Pt on BB, ARB, Coumadin Cardio Consult appreciated. Pt finished IV abtx Pt on Flagyl ( for 7 more days). Monitor and replete electrolytes. AM labs. Coumadin to be adjusted, INR in AM. Case was d/w pt's nurse.
[2016-12-25] MEDS: ANASTROZOLE 1 MG TABLET PO SCH (22:41)
[2016-12-25] MEDS: ZOLPIDEM TARTRATE 5 MG TABLET PO PRN (23:41)
[2016-12-26] MEDS: metFORMIN HCL 500 MG TABLET (FP) PO SCH ×2 (06:32→17:00)
[2016-12-26] MEDS: INSULIN SLIDING SCALE (NOVOLOG) 1 VIAL SQ SCH ×4 (06:33→22:35)
[2016-12-26] MEDS: NYSTATIN POWDER 100,000 UNITS/GM - 15 GM TOPICAL POWDER TP SCH ×3 (06:33→22:36)
[2016-12-26 07:41] LABS: MCH 31.5 pg (25.7-33.7); MEAN CELL VOLUME 92.7 fl (80-96); MEAN PLT VOLUME 8.1 fl (7.5-11.1); PLATELET COUNT 363 K/MM3 (134-434); RDW 15.1 % (11.6-15.6); WHITE BLOOD COUNT 5.9 K/mm3 (4.0-10.0)
[2016-12-26 07:42] LABS: INR 2.12 (0.82-1.09); PROTHROMBIN TIME (PATIENT) 23.9 SEC (9.98-11.88)
[2016-12-26 08:26] LABS: ANION GAP 9 (8-16); CALCIUM 8.2 mg/dL (8.5-10.1); CO2 33 mmol/L (21-32); CREATININE 0.4 mg/dL (0.55-1.02); GLUCOSE,RANDOM 87 mg/dL (74-106)
[2016-12-26 08:43] LABS: CPK 17 IU/L (26-192); TROPONIN I 0.05 ng/ml (0.00-0.05)
[2016-12-26] MEDS ORDERED: PT OWN MED DRAWER 7, Y5N ONE ×3 (08:56→23:38)
[2016-12-26] MEDS: NICOTINE 7 MG/24 HOURS TOPICAL PATCH TD SCH (09:03)
[2016-12-26] MEDS: CARVEDILOL 12.5 MG TABLET (FP) PO SCH ×2 (09:03→22:35)
[2016-12-26] MEDS: FUROSEMIDE 40 MG/4 ML INJECTABLE VIAL IVPUSH SCH (09:03)
[2016-12-26] MEDS: SPIRONOLACTONE 25 MG TABLET (FP) PO SCH (09:03)
[2016-12-26] MEDS: PANTOPRAZOLE 40 MG TABLET (FP) PO SCH (09:03)
[2016-12-26] MEDS: VALSARTAN 160 MG TABLET (UD) PO SCH (09:03)
[2016-12-26] MEDS: MOMETASONE FUROATE 110 MCG/IH INHALER IH SCH ×2 (09:04→22:35)
--- NOTE | 2016-12-26 10:11 | EKG ---
Test Reason : Blood Pressure : / mmHG Vent. Rate : 140 BPM Atrial Rate : 140 BPM P-R Int : 136 ms QRS Dur : 092 ms QT Int : 292 ms P-R-T Axes : 054 078 270 degrees QTc Int : 445 ms POOR DATA QUALITY, INTERPRETATION MAY BE ADVERSELY AFFECTED SINUS TACHYCARDIA LEFT VENTRICULAR HYPERTROPHY WITH REPOLARIZATION ABNORMALITY ABNORMAL ECG WHEN COMPARED WITH ECG OF 08-DEC-2016 16:43, FUSION COMPLEXES ARE NO LONGER PRESENT INVERTED T WAVES HAVE REPLACED NONSPECIFIC T WAVE ABNORMALITY IN INFERIOR LEADS Confirmed by GIANCARLO HERNANDEZ MD ([id number]) on 12/26/2016 10:10:52 AM Referred By: Vi Vora Confirmed By:GIANCARLO HERNANDEZ MD
--- NOTE | 2016-12-26 10:46 | PN ---
Progress Note, Physician History of Present Illness: Pt w/o SOB, CP. palp, dizziness, N, V, abd pain. Pt with decreased cough. Pt's breathing is better, no episode of SOB. - Current Medication List Current Medications: Active Medications Acetaminophen (Tylenol -) 650 mg PO Q6H PRN PRN Reason: FEVER OR PAIN Last Admin: 12/20/16 00:15 Dose: 650 mg Albuterol Sulfate (Ventolin Hfa Inhaler -) 2 puff IH Q4H PRN PRN Reason: SHORT OF BREATH/WHEEZING Albuterol/Ipratropium (Duoneb -) 1 amp NEB Q6H PRN PRN Reason: SHORTNESS OF BREATH Last Admin: 12/25/16 19:00 Dose: 1 amp Anastrozole (Arimidex -) 1 mg PO HS [facility] Last Admin: 12/25/16 22:41 Dose: 1 mg Carvedilol (Coreg -) 12.5 mg PO BID [facility] Last Admin: 12/26/16 09:03 Dose: 12.5 mg Furosemide (Lasix Injection -) 40 mg IVPUSH DAILY [facility] Last Admin: 12/26/16 09:03 Dose: 40 mg Insulin Aspart (Novolog Vial Sliding Scale -) 1 vial SQ ACHS [facility] PRN Reason: Protocol Last Admin: 12/26/16 06:33 Dose: Not Given Metformin HCl (Glucophage -) 1,000 mg PO BIDAC [facility] Last Admin: 12/26/16 06:32 Dose: 1,000 mg Mometasone Furoate (Asmanex 110mcg -) 1 puff IH BID [facility] Last Admin: 12/26/16 09:04 Dose: 1 puff Nicotine (Nicoderm Patch -) 7 mg TD DAILY [facility] Last Admin: 12/26/16 09:03 Dose: 7 mg Nystatin (Nystop Powder -) 1 applic TP TID [facility] Last Admin: 12/26/16 06:33 Dose: 1 applic Ondansetron HCl (Zofran Injection) 4 mg IVPUSH Q6H PRN PRN Reason: NAUSEA Pantoprazole Sodium (Protonix -) 40 mg PO DAILY [facility] Last Admin: 12/26/16 09:03 Dose: 40 mg Spironolactone (Aldactone -) 25 mg PO DAILY [facility] Last Admin: 12/26/16 09:03 Dose: 25 mg Valsartan (Diovan -) 160 mg PO DAILY [facility] Last Admin: 12/26/16 09:03 Dose: 160 mg Warfarin Sodium (Coumadin -) 6 mg PO DAILY@1800 [facility] Last Admin: 12/25/16 17:22 Dose: 6 mg Zolpidem Tartrate (Ambien -) 5 mg PO HS PRN PRN Reason: INSOMNIA Last Admin: 12/25/16 23:41 Dose: 5 mg - Objective Vital Signs: Vital Signs Temperature 97.7 F 12/26/16 06:00 Pulse Rate 89 12/26/16 06:00 Respiratory Rate 20 12/26/16 09:00 Blood Pressure 141/59 12/26/16 06:00 O2 Sat by Pulse Oximetry (%) 95 12/26/16 09:00 Constitutional: Yes: No Distress, Calm Cardiovascular: Yes: Regular Rate and Rhythm, S1, S2 Respiratory: Yes: Regular, Other (crackle at bases) Gastrointestinal: Yes: Normal Bowel Sounds, Soft, Tenderness Edema: LLE: 1+, RLE: 1+ Neurological: Yes: Alert, Oriented Labs: CBC, BMP 12/26/16 05:35 12/26/16 05:35 INR, PTT INR 2.12 (0.82-1.09) H 12/26/16 05:35 Problem List - Problems (1) Perforated sigmoid colon Code(s): K63.1 - PERFORATION OF INTESTINE (NONTRAUMATIC) (2) Colostomy in place Code(s): Z93.3 - COLOSTOMY STATUS (3) Dilatation of colon Code(s): K59.39 - OTHER MEGACOLON (4) LLQ pain Code(s): R10.32 - LEFT LOWER QUADRANT PAIN (5) Cancer of left breast Code(s): C50.912 - MALIGNANT NEOPLASM OF UNSPECIFIED SITE OF LEFT FEMALE BREAST Qualifiers: Breast location: upper outer quadrant of breast Estrogen receptor status: positive Patient sex: female Qualified Code(s): C50.412 - Malignant neoplasm of upper-outer quadrant of left female breast; C50.412 - Malignant neoplasm of upper-outer quadrant of left female breast; C50.412 - Malignant neoplasm of upper-outer quadrant of left female breast; C50.412 - Malignant neoplasm of upper-outer quadrant of left female breast; Z17.0 - Estrogen receptor positive status [ER+]; Z17.0 - Estrogen receptor positive status [ER+] (6) Diabetes mellitus type 2, noninsulin dependent Code(s): E11.9 - TYPE 2 DIABETES MELLITUS WITHOUT COMPLICATIONS (7) H/O: CVA (cerebrovascular accident) Code(s): Z86.73 - PRSNL HX OF TIA (TIA), AND CEREB INFRC W/O RESID DEFICITS (8) Supratherapeutic INR Code(s): R79.1 - ABNORMAL COAGULATION PROFILE (9) Hypertension Code(s): I10 - ESSENTIAL (PRIMARY) HYPERTENSION Qualifiers: Hypertension type: essential hypertension Qualified Code(s): I10 - Essential (primary) hypertension; I10 - Essential (primary) hypertension; I10 - Essential (primary) hypertension (10) COPD (chronic obstructive pulmonary disease) Code(s): J44.9 - CHRONIC OBSTRUCTIVE PULMONARY DISEASE, UNSPECIFIED (11) Hypomagnesemia Code(s): E83.42 - HYPOMAGNESEMIA (12) Hypophosphatemia Code(s): E83.39 - OTHER DISORDERS OF PHOSPHORUS METABOLISM (13) Hypoalbuminemia Code(s): E88.09 - OTH DISORDERS OF PLASMA-PROTEIN METABOLISM, NEC (14) Hypokalemia Code(s): E87.6 - HYPOKALEMIA (15) Subtherapeutic anticoagulation Code(s): Z51.81 - ENCOUNTER FOR THERAPEUTIC DRUG LEVEL MONITORING Z79.01 - RETIREMENT (CURRENT) USE OF 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 (16) Acute pulmonary edema Code(s): J81.0 - ACUTE PULMONARY EDEMA (17) Acute exacerbation of congestive heart failure Code(s): I50.9 - HEART FAILURE, UNSPECIFIED Qualifiers: Congestive heart failure type: combined Qualified Code(s): I50.43 - Acute on chronic combined systolic (congestive) and diastolic (congestive) heart failure; I50.43 - Acute on chronic combined systolic (congestive) and diastolic (congestive) heart failure; I50.43 - Acute on chronic combined systolic (congestive) and diastolic (congestive) heart failure; I50.43 - Acute on chronic combined systolic (congestive) and diastolic (congestive) heart failure (18) Tachycardia Code(s): R00.0 - TACHYCARDIA, UNSPECIFIED (19) Hypoxemia Code(s): R09.02 - HYPOXEMIA (20) Acute respiratory acidosis Code(s): E87.2 - ACIDOSIS (21) Subendocardial ischemia Code(s): I24.8 - OTHER FORMS OF ACUTE ISCHEMIC HEART DISEASE (22) Left renal artery stenosis Assessment/Plan: would need further evaluation Code(s): I70.1 - ATHEROSCLEROSIS OF RENAL ARTERY Assessment/Plan Lasix was changed to PO- to monitor renal function. Pt on BB, ARB, Coumadin Cardio Consult appreciated. Pt finished IV abtx Pt on Flagyl ( for 7 more days). Monitor and replete electrolytes. AM labs. Coumadin to be adjusted, INR in AM. TO plan further renal artery stenosis eval Case was d/w pt's nurse.
--- NOTE | 2016-12-26 11:59 | PN ---
Progress Note, Physician History of Present Illness: Dyspnea continues to improve and weight decreased with diuresis. - Current Medication List Current Medications: Active Medications Acetaminophen (Tylenol -) 650 mg PO Q6H PRN PRN Reason: FEVER OR PAIN Last Admin: 12/20/16 00:15 Dose: 650 mg Albuterol Sulfate (Ventolin Hfa Inhaler -) 2 puff IH Q4H PRN PRN Reason: SHORT OF BREATH/WHEEZING Anastrozole (Arimidex -) 1 mg PO HS [facility] Last Admin: 12/25/16 22:41 Dose: 1 mg Carvedilol (Coreg -) 12.5 mg PO BID [facility] Last Admin: 12/26/16 09:03 Dose: 12.5 mg Furosemide (Lasix Injection -) 40 mg IVPUSH DAILY [facility] Last Admin: 12/26/16 09:03 Dose: 40 mg Insulin Aspart (Novolog Vial Sliding Scale -) 1 vial SQ ACHS [facility] PRN Reason: Protocol Last Admin: 12/26/16 11:35 Dose: 2 units Metformin HCl (Glucophage -) 1,000 mg PO BIDAC [facility] Last Admin: 12/26/16 06:32 Dose: 1,000 mg Mometasone Furoate (Asmanex 110mcg -) 1 puff IH BID [facility] Last Admin: 12/26/16 09:04 Dose: 1 puff Nicotine (Nicoderm Patch -) 7 mg TD DAILY [facility] Last Admin: 12/26/16 09:03 Dose: 7 mg Nystatin (Nystop Powder -) 1 applic TP TID [facility] Last Admin: 12/26/16 06:33 Dose: 1 applic Ondansetron HCl (Zofran Injection) 4 mg IVPUSH Q6H PRN PRN Reason: NAUSEA Pantoprazole Sodium (Protonix -) 40 mg PO DAILY [facility] Last Admin: 12/26/16 09:03 Dose: 40 mg Spironolactone (Aldactone -) 25 mg PO DAILY [facility] Last Admin: 12/26/16 09:03 Dose: 25 mg Valsartan (Diovan -) 160 mg PO DAILY [facility] Last Admin: 12/26/16 09:03 Dose: 160 mg Warfarin Sodium (Coumadin -) 6 mg PO DAILY@1800 [facility] Last Admin: 12/25/16 17:22 Dose: 6 mg Zolpidem Tartrate (Ambien -) 5 mg PO HS PRN PRN Reason: INSOMNIA Last Admin: 12/25/16 23:41 Dose: 5 mg - Objective Vital Signs: Vital Signs Temperature 98.9 F 12/26/16 10:00 Pulse Rate 96 H 12/26/16 10:00 Respiratory Rate 18 12/26/16 10:00 Blood Pressure 129/49 12/26/16 10:00 O2 Sat by Pulse Oximetry (%) 95 12/26/16 09:00 Constitutional: Yes: No Distress, Calm Neck: Yes: Supple Cardiovascular: Yes: Regular Rate and Rhythm Respiratory: Yes: Regular, Diminished Gastrointestinal: Yes: Normal Bowel Sounds, Soft Edema: No Labs: CBC, BMP 12/26/16 05:35 12/26/16 05:35 INR, PTT INR 2.12 (0.82-1.09) H 12/26/16 05:35 - ....Imaging Ultrasound: Report Reviewed (Renovascular U/S left renal artery >50-60% stenosis ) Problem List - Problems (1) Acute exacerbation of congestive heart failure Code(s): I50.9 - HEART FAILURE, UNSPECIFIED Qualifiers: Congestive heart failure type: combined Qualified Code(s): I50.43 - Acute on chronic combined systolic (congestive) and diastolic (congestive) heart failure; I50.43 - Acute on chronic combined systolic (congestive) and diastolic (congestive) heart failure; I50.43 - Acute on chronic combined systolic (congestive) and diastolic (congestive) heart failure; I50.43 - Acute on chronic combined systolic (congestive) and diastolic (congestive) heart failure (2) Acute pulmonary edema Code(s): J81.0 - ACUTE PULMONARY EDEMA (3) Colostomy in place Code(s): Z93.3 - COLOSTOMY STATUS (4) Diabetes mellitus type 2, noninsulin dependent Code(s): E11.9 - TYPE 2 DIABETES MELLITUS WITHOUT COMPLICATIONS (5) H/O: CVA (cerebrovascular accident) Code(s): Z86.73 - PRSNL HX OF TIA (TIA), AND CEREB INFRC W/O RESID DEFICITS (6) Perforated sigmoid colon Code(s): K63.1 - PERFORATION OF INTESTINE (NONTRAUMATIC) (7) Acute respiratory failure with hypoxia and hypercapnia Code(s): J96.01 - ACUTE RESPIRATORY FAILURE WITH HYPOXIA J96.02 - ACUTE RESPIRATORY FAILURE WITH HYPERCAPNIA (8) Tobacco abuse Code(s): Z72.0 - TOBACCO USE (9) Anticoagulant long-term use Code(s): Z79.01 - ATTORNEY (CURRENT) USE OF 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 (10) Hypertensive emergency Code(s): I16.1 - HYPERTENSIVE EMERGENCY (11) Subendocardial ischemia Code(s): I24.8 - OTHER FORMS OF ACUTE ISCHEMIC HEART DISEASE (12) Anemia Code(s): D64.9 - ANEMIA, UNSPECIFIED Qualifiers: Anemia type: unspecified type Qualified Code(s): D64.9 - Anemia, unspecified; D64.9 - Anemia, unspecified Assessment/Plan 12/24/2016 Echo: Normal LV size with moderate decreased LV fxn, mild pericardial effusion, mild ASHLEY, mod MR, mild NC, TR 1. Acute on chronic systolic failure with acute pulmonary edema and subendocardial ischemic injury improving 2. Acute hypoxic and hypercapenic respiratory failure 3. Perforated sigmoid colon (pathology c/w ischemic colitis) post resection ( Dwaine's procedure) 4. H/o CVA with left MCA thrombus with therapeutic INR 5. COPD 6. HTN/HCVD 7. Hyperlipidemia 8. Anemia 9. > 50-60% left renal artery stenosis P:1. Start oral Lasix 40 qd and increase Aldactone 50 qd with monitor diuretic response, renal fxn and electrolytes 3. Consider CTA of abd to assess renal artery stenosis 4. Complete abx course, coumadin per INR, colostomy and wound care 5. Continue carvedilol 12.5 bid and Diovan 160 qd with uptitration as hemodynamics tolerate 6. GI prophylaxis, d/c planning to SNF
[2016-12-26] MEDS: WARFARIN NA 3 MG TABLET PO SCH (16:59)
[2016-12-26] MEDS: ALBUTEROL SO4 2.5/IPRATROPIUM 0.5 INH SOL 3 ML VIAL.NEB. NEB PRN (20:20)
[2016-12-26] MEDS: ANASTROZOLE 1 MG TABLET PO SCH (22:35)
[2016-12-26] MEDS: ZOLPIDEM TARTRATE 5 MG TABLET PO PRN (22:59)
[2016-12-27] MEDS: metFORMIN HCL 500 MG TABLET (FP) PO SCH ×2 (06:47→17:08)
[2016-12-27] MEDS: INSULIN SLIDING SCALE (NOVOLOG) 1 VIAL SQ SCH ×4 (06:47→22:40)
[2016-12-27] MEDS: NYSTATIN POWDER 100,000 UNITS/GM - 15 GM TOPICAL POWDER TP SCH ×3 (06:47→22:40)
[2016-12-27 07:19] LABS: MCH 31.1 pg (25.7-33.7); MCHC 33.5 g/dl (32.0-36.0); MEAN CELL VOLUME 92.7 fl (80-96); PLATELET COUNT 376 K/MM3 (134-434); WHITE BLOOD COUNT 5.7 K/mm3 (4.0-10.0)
[2016-12-27 07:37] LABS: INR 2.41 (0.82-1.09); PROTHROMBIN TIME (PATIENT) 27.2 SEC (9.98-11.88)
[2016-12-27 07:51] LABS: ANION GAP 4 (8-16); CALCIUM 8.2 mg/dL (8.5-10.1); CO2 36 mmol/L (21-32); CREATININE 0.3 mg/dL (0.55-1.02); GLUCOSE,RANDOM 105 mg/dL (74-106)
[2016-12-27] MEDS ORDERED: INSULIN (NOVOLOG) ASPART 100 UNITS/ML 10ML VIAL ONE (08:07)
[2016-12-27] MEDS: ALBUTEROL SO4 2.5/IPRATROPIUM 0.5 INH SOL 3 ML VIAL.NEB. NEB PRN ×2 (08:18→18:40)
[2016-12-27] MEDS ORDERED: PT OWN MED DRAWER 7, Y5N ONE ×2 (09:34→22:00)
[2016-12-27] MEDS: SPIRONOLACTONE 25 MG TABLET (FP) PO SCH (09:37)
[2016-12-27] MEDS: MOMETASONE FUROATE 110 MCG/IH INHALER IH SCH ×2 (09:37→22:02)
[2016-12-27] MEDS: NICOTINE 7 MG/24 HOURS TOPICAL PATCH TD SCH (09:37)
[2016-12-27] MEDS: VALSARTAN 160 MG TABLET (UD) PO SCH (09:37)
[2016-12-27] MEDS: PANTOPRAZOLE 40 MG TABLET (FP) PO SCH (09:37)
[2016-12-27] MEDS: CARVEDILOL 12.5 MG TABLET (FP) PO SCH ×2 (09:37→22:02)
[2016-12-27] MEDS ORDERED: FUROSEMIDE 40 MG TABLET (FP) PO SCH (10:00)
--- NOTE | 2016-12-27 12:30 | PN ---
Progress Note, Physician History of Present Illness: Pt w/o CP. palp, dizziness, N, V, abd pain. Pt with decreased cough. - Current Medication List Current Medications: Active Medications Acetaminophen (Tylenol -) 650 mg PO Q6H PRN PRN Reason: FEVER OR PAIN Last Admin: 12/20/16 00:15 Dose: 650 mg Albuterol Sulfate (Ventolin Hfa Inhaler -) 2 puff IH Q4H PRN PRN Reason: SHORT OF BREATH/WHEEZING Albuterol/Ipratropium (Duoneb -) 1 amp NEB Q6H PRN Last Admin: 12/27/16 08:18 Dose: 1 amp Anastrozole (Arimidex -) 1 mg PO HS [facility] Last Admin: 12/26/16 22:35 Dose: 1 mg Carvedilol (Coreg -) 12.5 mg PO BID [facility] Last Admin: 12/27/16 09:37 Dose: 12.5 mg Furosemide (Lasix -) 40 mg PO DAILY [facility] Last Admin: 12/27/16 09:37 Dose: 40 mg Insulin Aspart (Novolog Vial Sliding Scale -) 1 vial SQ ACHS [facility] PRN Reason: Protocol Last Admin: 12/27/16 12:00 Dose: 2 units Metformin HCl (Glucophage -) 1,000 mg PO BIDAC [facility] Last Admin: 12/27/16 06:47 Dose: 1,000 mg Mometasone Furoate (Asmanex 110mcg -) 1 puff IH BID [facility] Last Admin: 12/27/16 09:37 Dose: 1 puff Nicotine (Nicoderm Patch -) 7 mg TD DAILY [facility] Last Admin: 12/27/16 09:37 Dose: 7 mg Nystatin (Nystop Powder -) 1 applic TP TID [facility] Last Admin: 12/27/16 06:47 Dose: 1 applic Ondansetron HCl (Zofran Injection) 4 mg IVPUSH Q6H PRN PRN Reason: NAUSEA Pantoprazole Sodium (Protonix -) 40 mg PO DAILY [facility] Last Admin: 12/27/16 09:37 Dose: 40 mg Spironolactone (Aldactone -) 50 mg PO DAILY [facility] Last Admin: 12/27/16 09:37 Dose: 50 mg Valsartan (Diovan -) 160 mg PO DAILY [facility] Last Admin: 12/27/16 09:37 Dose: 160 mg Warfarin Sodium (Coumadin -) 6 mg PO DAILY@1800 [facility] Last Admin: 12/26/16 16:59 Dose: 6 mg Zolpidem Tartrate (Ambien -) 5 mg PO HS PRN PRN Reason: INSOMNIA Last Admin: 12/26/16 22:59 Dose: 5 mg - Objective Vital Signs: Vital Signs Temperature 98.1 F 12/27/16 06:00 Pulse Rate 89 12/27/16 06:00 Respiratory Rate 18 12/27/16 06:00 Blood Pressure 126/62 12/27/16 06:00 O2 Sat by Pulse Oximetry (%) 94 L 12/26/16 21:00 Constitutional: Yes: No Distress, Calm Cardiovascular: Yes: Regular Rate and Rhythm, S1, S2 Respiratory: Yes: Regular, Rales (at bases, left > right) Gastrointestinal: Yes: Normal Bowel Sounds, Soft. No: Tenderness Edema: LLE: Trace, RLE: Trace Neurological: Yes: Alert, Oriented Labs: CBC, BMP 12/27/16 06:00 12/27/16 06:00 INR, PTT INR 2.41 (0.82-1.09) H 12/27/16 06:00 Problem List - Problems (1) Perforated sigmoid colon Code(s): K63.1 - PERFORATION OF INTESTINE (NONTRAUMATIC) (2) Colostomy in place Code(s): Z93.3 - COLOSTOMY STATUS (3) Dilatation of colon Code(s): K59.39 - OTHER MEGACOLON (4) LLQ pain Code(s): R10.32 - LEFT LOWER QUADRANT PAIN (5) Cancer of left breast Code(s): C50.912 - MALIGNANT NEOPLASM OF UNSPECIFIED SITE OF LEFT FEMALE BREAST Qualifiers: Breast location: upper outer quadrant of breast Estrogen receptor status: positive Patient sex: female Qualified Code(s): C50.412 - Malignant neoplasm of upper-outer quadrant of left female breast; C50.412 - Malignant neoplasm of upper-outer quadrant of left female breast; C50.412 - Malignant neoplasm of upper-outer quadrant of left female breast; C50.412 - Malignant neoplasm of upper-outer quadrant of left female breast; Z17.0 - Estrogen receptor positive status [ER+]; Z17.0 - Estrogen receptor positive status [ER+] (6) Diabetes mellitus type 2, noninsulin dependent Code(s): E11.9 - TYPE 2 DIABETES MELLITUS WITHOUT COMPLICATIONS (7) H/O: CVA (cerebrovascular accident) Code(s): Z86.73 - PRSNL HX OF TIA (TIA), AND CEREB INFRC W/O RESID DEFICITS (8) Supratherapeutic INR Code(s): R79.1 - ABNORMAL COAGULATION PROFILE (9) Hypertension Code(s): I10 - ESSENTIAL (PRIMARY) HYPERTENSION Qualifiers: Hypertension type: essential hypertension Qualified Code(s): I10 - Essential (primary) hypertension; I10 - Essential (primary) hypertension; I10 - Essential (primary) hypertension (10) COPD (chronic obstructive pulmonary disease) Code(s): J44.9 - CHRONIC OBSTRUCTIVE PULMONARY DISEASE, UNSPECIFIED (11) Hypomagnesemia Code(s): E83.42 - HYPOMAGNESEMIA (12) Hypophosphatemia Code(s): E83.39 - OTHER DISORDERS OF PHOSPHORUS METABOLISM (13) Hypoalbuminemia Code(s): E88.09 - OTH DISORDERS OF PLASMA-PROTEIN METABOLISM, NEC (14) Hypokalemia Code(s): E87.6 - HYPOKALEMIA (15) Subtherapeutic anticoagulation Code(s): Z51.81 - ENCOUNTER FOR THERAPEUTIC DRUG LEVEL MONITORING 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 (16) Acute pulmonary edema Code(s): J81.0 - ACUTE PULMONARY EDEMA (17) Acute exacerbation of congestive heart failure Code(s): I50.9 - HEART FAILURE, UNSPECIFIED Qualifiers: Congestive heart failure type: combined Qualified Code(s): I50.43 - Acute on chronic combined systolic (congestive) and diastolic (congestive) heart failure; I50.43 - Acute on chronic combined systolic (congestive) and diastolic (congestive) heart failure; I50.43 - Acute on chronic combined systolic (congestive) and diastolic (congestive) heart failure; I50.43 - Acute on chronic combined systolic (congestive) and diastolic (congestive) heart failure (18) Tachycardia Code(s): R00.0 - TACHYCARDIA, UNSPECIFIED (19) Hypoxemia Code(s): R09.02 - HYPOXEMIA (20) Acute respiratory acidosis Code(s): E87.2 - ACIDOSIS (21) Subendocardial ischemia Code(s): I24.8 - OTHER FORMS OF ACUTE ISCHEMIC HEART DISEASE (22) Left renal artery stenosis Code(s): I70.1 - ATHEROSCLEROSIS OF RENAL ARTERY Assessment/Plan Lasix was changed to PO- to monitor renal function. Pt on BB, ARB, Coumadin Cardio Consult appreciated; meds are adjusted. Pt finished IV abtx, PO Flagyl Monitor and replete electrolytes. AM labs. Coumadin to be adjusted, INR in AM. To plan further renal artery stenosis eval Case was d/w pt's nurse.
--- NOTE | 2016-12-27 13:03 | PN ---
Progress Note (short form) - Note Progress Note: Breathing feels OK. Cough is better. No abdominal pain. No CP or SOB. No acute events overnight. Intake & Output 12/24/16 12/25/16 12/26/16 12/27/16 23:59 23:59 23:59 23:59 Intake Total 260 260 Output Total 3100 350 1500 Balance -2840 -90 -1500 Weight 192 lb 188 lb 4 oz Last Vital Signs Temp Pulse Resp BP Pulse Ox 98.1 F 89 18 126/62 94 L 12/27/16 06:00 12/27/16 06:00 12/27/16 06:00 12/27/16 06:00 12/26/16 21:00 Active Medications Acetaminophen (Tylenol -) 650 mg PO Q6H PRN PRN Reason: FEVER OR PAIN Last Admin: 12/20/16 00:15 Dose: 650 mg Albuterol Sulfate (Ventolin Hfa Inhaler -) 2 puff IH Q4H PRN PRN Reason: SHORT OF BREATH/WHEEZING Albuterol/Ipratropium (Duoneb -) 1 amp NEB Q6H PRN Last Admin: 12/27/16 08:18 Dose: 1 amp Anastrozole (Arimidex -) 1 mg PO HS [facility] Last Admin: 12/26/16 22:35 Dose: 1 mg Carvedilol (Coreg -) 12.5 mg PO BID [facility] Last Admin: 12/27/16 09:37 Dose: 12.5 mg Furosemide (Lasix -) 40 mg PO DAILY [facility] Last Admin: 12/27/16 09:37 Dose: 40 mg Insulin Aspart (Novolog Vial Sliding Scale -) 1 vial SQ ACHS [facility] PRN Reason: Protocol Last Admin: 12/27/16 12:00 Dose: 2 units Metformin HCl (Glucophage -) 1,000 mg PO BIDAC [facility] Last Admin: 12/27/16 06:47 Dose: 1,000 mg Mometasone Furoate (Asmanex 110mcg -) 1 puff IH BID [facility] Last Admin: 12/27/16 09:37 Dose: 1 puff Nicotine (Nicoderm Patch -) 7 mg TD DAILY [facility] Last Admin: 12/27/16 09:37 Dose: 7 mg Nystatin (Nystop Powder -) 1 applic TP TID [facility] Last Admin: 12/27/16 06:47 Dose: 1 applic Ondansetron HCl (Zofran Injection) 4 mg IVPUSH Q6H PRN PRN Reason: NAUSEA Pantoprazole Sodium (Protonix -) 40 mg PO DAILY [facility] Last Admin: 12/27/16 09:37 Dose: 40 mg Spironolactone (Aldactone -) 50 mg PO DAILY [facility] Last Admin: 12/27/16 09:37 Dose: 50 mg Valsartan (Diovan -) 160 mg PO DAILY [facility] Last Admin: 12/27/16 09:37 Dose: 160 mg Warfarin Sodium (Coumadin -) 6 mg PO DAILY@1800 [facility] Last Admin: 12/26/16 16:59 Dose: 6 mg Zolpidem Tartrate (Ambien -) 5 mg PO HS PRN PRN Reason: INSOMNIA Last Admin: 12/26/16 22:59 Dose: 5 mg Gen: Awake and alert, NAD Heart: S1S2, regular Lung: Bibasilar rales / rhonchi Abd: soft, +ostomy pink, (+) BS Ext: + edema Laboratory Results - last 24 hr 12/26/16 12/26/16 12/27/16 16:58 22:04 06:00 WBC 5.7 RBC 2.74 L Hgb 8.5 L Hct 25.4 L MCV 92.7 MCH 31.1 MCHC 33.5 RDW 15.0 Plt Count 376 MPV 8.0 PT with INR INR Sodium Potassium Chloride Carbon Dioxide Anion Gap BUN Creatinine POC Glucometer 122 138 Random Glucose Calcium 12/27/16 12/27/16 12/27/16 06:00 06:00 06:37 WBC RBC Hgb Hct MCV MCH MCHC RDW Plt Count MPV PT with INR 27.20 H INR 2.41 H Sodium 139 Potassium 4.1 Chloride 99 Carbon Dioxide 36 H Anion Gap 4 L BUN 12 D Creatinine 0.3 L D POC Glucometer 118 Random Glucose 105 D Calcium 8.2 L 12/27/16 10:08 WBC RBC Hgb Hct MCV MCH MCHC RDW Plt Count MPV PT with INR INR Sodium Potassium Chloride Carbon Dioxide Anion Gap BUN Creatinine POC Glucometer 182 Random Glucose Calcium ASSESSMENT AND PLAN: Perforated Sigmoid Colon Peritonitis s/p ex-lap/sigmoid resection/colostomy Sepsis COPD HTN Hyperlipidemia DM Smoker h/o CVA - PO as tolerated - Currently off ABX - O2 to maintain saturation - Incentive spirometry - inhaled bronchodilators - DVT prophylaxis - PT / DC planning Dr Cormier
[2016-12-27] MEDS: WARFARIN NA 3 MG TABLET PO SCH (17:08)
--- NOTE | 2016-12-27 20:33 | PN ---
Progress Note, Physician History of Present Illness: Dyspnea resolved with diuresis. - Current Medication List Current Medications: Active Medications Acetaminophen (Tylenol -) 650 mg PO Q6H PRN PRN Reason: FEVER OR PAIN Last Admin: 12/20/16 00:15 Dose: 650 mg Albuterol Sulfate (Ventolin Hfa Inhaler -) 2 puff IH Q4H PRN PRN Reason: SHORT OF BREATH/WHEEZING Albuterol/Ipratropium (Duoneb -) 1 amp NEB Q6H PRN Last Admin: 12/27/16 18:40 Dose: 1 amp Anastrozole (Arimidex -) 1 mg PO HS [facility] Last Admin: 12/26/16 22:35 Dose: 1 mg Carvedilol (Coreg -) 12.5 mg PO BID [facility] Last Admin: 12/27/16 09:37 Dose: 12.5 mg Furosemide (Lasix -) 40 mg PO DAILY [facility] Last Admin: 12/27/16 09:37 Dose: 40 mg Insulin Aspart (Novolog Vial Sliding Scale -) 1 vial SQ ACHS [facility] PRN Reason: Protocol Last Admin: 12/27/16 16:33 Dose: Not Given Metformin HCl (Glucophage -) 1,000 mg PO BIDAC [facility] Last Admin: 12/27/16 17:08 Dose: 1,000 mg Mometasone Furoate (Asmanex 110mcg -) 1 puff IH BID [facility] Last Admin: 12/27/16 09:37 Dose: 1 puff Nicotine (Nicoderm Patch -) 7 mg TD DAILY [facility] Last Admin: 12/27/16 09:37 Dose: 7 mg Nystatin (Nystop Powder -) 1 applic TP TID [facility] Last Admin: 12/27/16 14:09 Dose: 1 applic Ondansetron HCl (Zofran Injection) 4 mg IVPUSH Q6H PRN PRN Reason: NAUSEA Pantoprazole Sodium (Protonix -) 40 mg PO DAILY [facility] Last Admin: 12/27/16 09:37 Dose: 40 mg Spironolactone (Aldactone -) 50 mg PO DAILY [facility] Last Admin: 12/27/16 09:37 Dose: 50 mg Valsartan (Diovan -) 160 mg PO DAILY [facility] Last Admin: 12/27/16 09:37 Dose: 160 mg Warfarin Sodium (Coumadin -) 6 mg PO DAILY@1800 [facility] Last Admin: 12/27/16 17:08 Dose: 6 mg Zolpidem Tartrate (Ambien -) 5 mg PO HS PRN PRN Reason: INSOMNIA Last Admin: 12/26/16 22:59 Dose: 5 mg - Objective Vital Signs: Vital Signs Temperature 98.6 F 12/27/16 18:00 Pulse Rate 100 H 12/27/16 18:00 Respiratory Rate 18 12/27/16 18:00 Blood Pressure 151/65 12/27/16 18:00 O2 Sat by Pulse Oximetry (%) 96 12/27/16 10:00 Constitutional: Yes: No Distress, Calm Neck: Yes: Supple Cardiovascular: Yes: Regular Rate and Rhythm, Murmur (2/6 SM) Respiratory: Yes: Regular, Diminished Gastrointestinal: Yes: Normal Bowel Sounds, Soft Edema: No Labs: CBC, BMP 12/27/16 06:00 12/27/16 06:00 INR, PTT INR 2.41 (0.82-1.09) H 12/27/16 06:00 Problem List - Problems (1) Acute exacerbation of congestive heart failure Code(s): I50.9 - HEART FAILURE, UNSPECIFIED Qualifiers: Congestive heart failure type: combined Qualified Code(s): I50.43 - Acute on chronic combined systolic (congestive) and diastolic (congestive) heart failure; I50.43 - Acute on chronic combined systolic (congestive) and diastolic (congestive) heart failure; I50.43 - Acute on chronic combined systolic (congestive) and diastolic (congestive) heart failure; I50.43 - Acute on chronic combined systolic (congestive) and diastolic (congestive) heart failure (2) Acute pulmonary edema Code(s): J81.0 - ACUTE PULMONARY EDEMA (3) Colostomy in place Code(s): Z93.3 - COLOSTOMY STATUS (4) Diabetes mellitus type 2, noninsulin dependent Code(s): E11.9 - TYPE 2 DIABETES MELLITUS WITHOUT COMPLICATIONS (5) H/O: CVA (cerebrovascular accident) Code(s): Z86.73 - PRSNL HX OF TIA (TIA), AND CEREB INFRC W/O RESID DEFICITS (6) Perforated sigmoid colon Code(s): K63.1 - PERFORATION OF INTESTINE (NONTRAUMATIC) (7) Acute respiratory failure with hypoxia and hypercapnia Code(s): J96.01 - ACUTE RESPIRATORY FAILURE WITH HYPOXIA J96.02 - ACUTE RESPIRATORY FAILURE WITH HYPERCAPNIA (8) Tobacco abuse Code(s): Z72.0 - TOBACCO USE (9) Anticoagulant long-term use Code(s): Z79.01 - PRODUCT MARKETING COORDINATOR (CURRENT) USE OF 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 (10) Hypertensive emergency Code(s): I16.1 - HYPERTENSIVE EMERGENCY (11) Subendocardial ischemia Code(s): I24.8 - OTHER FORMS OF ACUTE ISCHEMIC HEART DISEASE (12) Anemia Code(s): D64.9 - ANEMIA, UNSPECIFIED Qualifiers: Anemia type: unspecified type Qualified Code(s): D64.9 - Anemia, unspecified; D64.9 - Anemia, unspecified Assessment/Plan 12/24/2016 Echo: Normal LV size with moderate decreased LV fxn, mild pericardial effusion, mild ASHLEY, mod MR, mild RI, TR 1. Acute on chronic systolic failure with acute pulmonary edema and subendocardial ischemic injury resolved 2. Acute hypoxic and hypercapenic respiratory failure 3. Perforated sigmoid colon (pathology c/w ischemic colitis) post resection ( Dwaine's procedure) 4. H/o CVA with left MCA thrombus with therapeutic INR 5. COPD 6. HTN/HCVD 7. Hyperlipidemia 8. Anemia 9. > 50-60% left renal artery stenosis P:1. Decrease oral Lasix 20 qd and continue Aldactone 50 qd with monitor diuretic response, renal fxn and electrolytes 3. Consider CTA of abd to assess renal artery stenosis 4. Complete abx course, coumadin per INR, colostomy and wound care 5. Increase carvedilol 25 bid and Diovan 160 qd with uptitration as hemodynamics tolerate 6. GI prophylaxis, d/c planning to SNF
[2016-12-27] MEDS: ZOLPIDEM TARTRATE 5 MG TABLET PO PRN (22:02)
[2016-12-27] MEDS: ANASTROZOLE 1 MG TABLET PO SCH (22:02)
[2016-12-28] MEDS: metFORMIN HCL 500 MG TABLET (FP) PO SCH ×2 (06:14→16:52)
[2016-12-28] MEDS: NYSTATIN POWDER 100,000 UNITS/GM - 15 GM TOPICAL POWDER TP SCH ×3 (06:27→22:40)
[2016-12-28] MEDS: INSULIN SLIDING SCALE (NOVOLOG) 1 VIAL SQ SCH ×4 (06:28→22:40)
[2016-12-28] MEDS ORDERED: INSULIN (NOVOLOG) ASPART 100 UNITS/ML 10ML VIAL ONE (06:37)
[2016-12-28 07:55] LABS: MCH 30.9 pg (25.7-33.7); MCHC 33.1 g/dl (32.0-36.0); MEAN CELL VOLUME 93.2 fl (80-96); PLATELET COUNT 384 K/MM3 (134-434); RDW 15.6 % (11.6-15.6); WHITE BLOOD COUNT 6.4 K/mm3 (4.0-10.0)
[2016-12-28 08:07] LABS: INR 2.21 (0.82-1.09)
[2016-12-28 08:29] LABS: ANION GAP 9 (8-16); CALCIUM 8.5 mg/dL (8.5-10.1); CO2 32 mmol/L (21-32); CREATININE 0.3 mg/dL (0.55-1.02); GLUCOSE,RANDOM 108 mg/dL (74-106)
[2016-12-28] MEDS ORDERED: PT OWN MED DRAWER 7, Y5N ONE ×2 (09:21→22:36)
[2016-12-28] MEDS: CARVEDILOL 12.5 MG TABLET (FP) PO SCH ×2 (09:25→22:40)
[2016-12-28] MEDS: VALSARTAN 160 MG TABLET (UD) PO SCH (09:27)
[2016-12-28] MEDS: PANTOPRAZOLE 40 MG TABLET (FP) PO SCH (09:27)
[2016-12-28] MEDS: FUROSEMIDE 20 MG TABLET (FP) PO SCH (09:28)
[2016-12-28] MEDS: NICOTINE 7 MG/24 HOURS TOPICAL PATCH TD SCH (09:28)
[2016-12-28] MEDS: SPIRONOLACTONE 25 MG TABLET (FP) PO SCH (09:28)
[2016-12-28] MEDS: MOMETASONE FUROATE 110 MCG/IH INHALER IH SCH ×2 (09:28→22:40)
[2016-12-28] MEDS: ALBUTEROL SO4 2.5/IPRATROPIUM 0.5 INH SOL 3 ML VIAL.NEB. NEB PRN ×2 (10:45→18:54)
--- NOTE | 2016-12-28 11:36 | PN ---
Progress Note (short form) - Note Progress Note: Pt seen and examined in bed. Pt was supposed to go to [facility] 12/23 but had episode of SOB and was found to have pulmonary congestion with acute on chronic CHF exacerbation. Stayed, has been treated, and is feeling better with improved fluid and pulmonary status. On 4L [place] O2. Escobar in place for accurate I/O's. Meds adjusted. Cardiology following. Also found to have renal artery stenosis. INR therapeutic for h/o stroke. Wound dressings on midline abdomen are being done bid with damp saline Kerlix. Colostomy is functioning with soft/liquidy brown stool. Vital Signs Period Temp Pulse Resp BP Sys/Holt Pulse Ox Last 24 Hr 98.3 F-99.2 F 83-100 18-18 125-151/57-65 96 Intake & Output 12/27/16 12/28/16 12/28/16 23:59 07:59 15:59 Output Total 1100 450 Balance -1100 -450 Weight 179 lb Output: Drainage 300 colostomy 300 Urine 800 450 Escobar 800 450 Other: Voiding Method Indwelling Catheter Bowel Movement Yes # Bowel Movements 1 Weight Measurement Method Standing Scale PE: A&O finishing resp treatment, no SOB, back to [place] O2, no audible wheezing no significant edema, extremities warm abdomen soft, obese, nontender midline abdominal wounds above and below umbilicus - dressing recently changed - per nurse, and seen on old dressing, greenish tint and odor to gauze over wounds at changing time upper and lower granulating well, clean wounds - upper wound with fascial separation in base, about 1.5cm wide, granulating centrally with some pale soft necrotic tissue at edges of fascia ostomy pink, patent, productive of soft/liquid brown stool lateral edge/corner retracted from skin with granulating island between skin edge and stoma edge appliance with central opening too large for skin edge peristomal skin with erythema, mild dermatitis CBC, BMP 12/28/16 06:45 12/28/16 06:45 INR, PTT INR 2.21 (0.82-1.09) H 12/28/16 06:45 A/P: POD18 s/p sigmoid resection with colostomy (Dwaine's procedure) for perforated sigmoid colon overall doing well colostomy appliance changed with nurse, opening cut to fit skin edge and skin prep used on peristomal skin gauze and ABD pad replaced over wound packings for now fascial dehiscence in upper aspect of wound with stable, granulating wound base colonized with Pseudomonas will change to Dakin's solution for damp-to-dry dressings bid and follow up in few days PT/rehab plans per primary team pt still depressed about colostomy status - consider psych consult? Problem List - Problems (1) Perforated sigmoid colon Code(s): K63.1 - PERFORATION OF INTESTINE (NONTRAUMATIC) (2) Disruption of internal operation (surgical) wound, not elsewhere classified , initial encounter Code(s): T81.32XA - DISRUPTION OF INTERNAL OPERATION (SURGICAL) WOUND, NEC, INIT (3) Open wound of abdominal wall, anterior, complicated Code(s): S31.109A - UNSP OPN WND ABD WALL, UNSP Q W/O PENET PERIT CAV, INIT Qualifiers: Encounter type: initial encounter Qualified Code(s): S31.109A - Unspecified open wound of abdominal wall, unspecified quadrant without penetration into peritoneal cavity, initial encounter; S31.109A - Unspecified open wound of abdominal wall, unspecified quadrant without penetration into peritoneal cavity, initial encounter (4) H/O: CVA (cerebrovascular accident) Code(s): Z86.73 - PRSNL HX OF TIA (TIA), AND CEREB INFRC W/O RESID DEFICITS (5) Hypertension Code(s): I10 - ESSENTIAL (PRIMARY) HYPERTENSION Qualifiers: Hypertension type: essential hypertension Qualified Code(s): I10 - Essential (primary) hypertension; I10 - Essential (primary) hypertension; I10 - Essential (primary) hypertension (6) Diabetes mellitus type 2, noninsulin dependent Code(s): E11.9 - TYPE 2 DIABETES MELLITUS WITHOUT COMPLICATIONS (7) Cancer of left breast Code(s): C50.912 - MALIGNANT NEOPLASM OF UNSPECIFIED SITE OF LEFT FEMALE BREAST Qualifiers: Breast location: upper outer quadrant of breast Estrogen receptor status: positive Patient sex: female Qualified Code(s): C50.412 - Malignant neoplasm of upper-outer quadrant of left female breast; C50.412 - Malignant neoplasm of upper-outer quadrant of left female breast; C50.412 - Malignant neoplasm of upper-outer quadrant of left female breast; C50.412 - Malignant neoplasm of upper-outer quadrant of left female breast; Z17.0 - Estrogen receptor positive status [ER+]; Z17.0 - Estrogen receptor positive status [ER+] (8) COPD without exacerbation Code(s): J44.9 - CHRONIC OBSTRUCTIVE PULMONARY DISEASE, UNSPECIFIED
--- NOTE | 2016-12-28 11:47 | PN ---
Progress Note (short form) - Note Progress Note: Breathing is better. Some residual cough. No abdominal pain. Intake & Output 12/25/16 12/26/16 12/27/16 12/28/16 23:59 23:59 23:59 23:59 Intake Total 260 Output Total 350 1500 2300 450 Balance -90 -1500 -2300 -450 Weight 188 lb 4 oz 179 lb Last Vital Signs Temp Pulse Resp BP Pulse Ox 98.6 F 83 18 125/60 96 12/28/16 06:00 12/28/16 06:00 12/28/16 06:00 12/28/16 06:00 12/27/16 20:13 Active Medications Acetaminophen (Tylenol -) 650 mg PO Q6H PRN PRN Reason: FEVER OR PAIN Last Admin: 12/20/16 00:15 Dose: 650 mg Albuterol Sulfate (Ventolin Hfa Inhaler -) 2 puff IH Q4H PRN PRN Reason: SHORT OF BREATH/WHEEZING Albuterol/Ipratropium (Duoneb -) 1 amp NEB Q6H PRN Last Admin: 12/28/16 10:45 Dose: 1 amp Anastrozole (Arimidex -) 1 mg PO HS [facility] Last Admin: 12/27/16 22:02 Dose: 1 mg Carvedilol (Coreg -) 25 mg PO BID [facility] Last Admin: 12/28/16 09:25 Dose: 25 mg Furosemide (Lasix -) 20 mg PO DAILY [facility] Last Admin: 12/28/16 09:28 Dose: 20 mg Insulin Aspart (Novolog Vial Sliding Scale -) 1 vial SQ ACHS [facility] PRN Reason: Protocol Last Admin: 12/28/16 11:37 Dose: Not Given Metformin HCl (Glucophage -) 1,000 mg PO BIDAC [facility] Last Admin: 12/28/16 06:14 Dose: 1,000 mg Mometasone Furoate (Asmanex 110mcg -) 1 puff IH BID [facility] Last Admin: 12/28/16 09:28 Dose: 1 puff Nicotine (Nicoderm Patch -) 7 mg TD DAILY [facility] Last Admin: 12/28/16 09:28 Dose: 7 mg Nystatin (Nystop Powder -) 1 applic TP TID [facility] Last Admin: 12/28/16 06:27 Dose: 1 applic Ondansetron HCl (Zofran Injection) 4 mg IVPUSH Q6H PRN PRN Reason: NAUSEA Pantoprazole Sodium (Protonix -) 40 mg PO DAILY [facility] Last Admin: 12/28/16 09:27 Dose: 40 mg Spironolactone (Aldactone -) 50 mg PO DAILY [facility] Last Admin: 12/28/16 09:28 Dose: 50 mg Valsartan (Diovan -) 160 mg PO DAILY [facility] Last Admin: 12/28/16 09:27 Dose: 160 mg Warfarin Sodium (Coumadin -) 6 mg PO DAILY@1800 [facility] Last Admin: 12/27/16 17:08 Dose: 6 mg Gen: Awake and alert, NAD Heart: S1S2, regular Lung: Few Bibasilar rales / rhonchi Abd: soft, +ostomy pink, (+) BS Ext: + edema Laboratory Results - last 24 hr 12/27/16 12/27/16 12/28/16 16:24 22:10 06:19 WBC RBC Hgb Hct MCV MCH MCHC RDW Plt Count MPV PT with INR INR Sodium Potassium Chloride Carbon Dioxide Anion Gap BUN Creatinine POC Glucometer 105 111 120 Random Glucose Calcium 12/28/16 12/28/16 12/28/16 06:45 06:45 06:45 WBC 6.4 RBC 2.81 L Hgb 8.7 L Hct 26.2 L MCV 93.2 MCH 30.9 MCHC 33.1 RDW 15.6 Plt Count 384 MPV 8.0 PT with INR 25.00 H INR 2.21 H Sodium 138 Potassium 4.4 Chloride 97 L Carbon Dioxide 32 Anion Gap 9 BUN 13 Creatinine 0.3 L POC Glucometer Random Glucose 108 H Calcium 8.5 ASSESSMENT AND PLAN: Perforated Sigmoid Colon Peritonitis s/p ex-lap/sigmoid resection/colostomy Sepsis COPD HTN Hyperlipidemia DM Smoker h/o CVA - Lasix - Currently off ABX - O2 to maintain saturation - Incentive spirometry - inhaled bronchodilators - DVT prophylaxis - PT / DC planning Dr Cormier
--- NOTE | 2016-12-28 14:28 | PN ---
Progress Note, Physician History of Present Illness: Pt w/o fever, CP. palp, SOB, dizziness, N, V, abd pain. Pt with decreased cough. - Current Medication List Current Medications: Active Medications Acetaminophen (Tylenol -) 650 mg PO Q6H PRN PRN Reason: FEVER OR PAIN Last Admin: 12/20/16 00:15 Dose: 650 mg Albuterol Sulfate (Ventolin Hfa Inhaler -) 2 puff IH Q4H PRN PRN Reason: SHORT OF BREATH/WHEEZING Albuterol/Ipratropium (Duoneb -) 1 amp NEB Q6H PRN Last Admin: 12/28/16 10:45 Dose: 1 amp Anastrozole (Arimidex -) 1 mg PO HS [facility] Last Admin: 12/27/16 22:02 Dose: 1 mg Carvedilol (Coreg -) 25 mg PO BID [facility] Last Admin: 12/28/16 09:25 Dose: 25 mg Furosemide (Lasix -) 20 mg PO DAILY [facility] Last Admin: 12/28/16 09:28 Dose: 20 mg Insulin Aspart (Novolog Vial Sliding Scale -) 1 vial SQ ACHS [facility] PRN Reason: Protocol Last Admin: 12/28/16 11:37 Dose: Not Given Metformin HCl (Glucophage -) 1,000 mg PO BIDAC [facility] Last Admin: 12/28/16 06:14 Dose: 1,000 mg Mometasone Furoate (Asmanex 110mcg -) 1 puff IH BID [facility] Last Admin: 12/28/16 09:28 Dose: 1 puff Nicotine (Nicoderm Patch -) 7 mg TD DAILY [facility] Last Admin: 12/28/16 09:28 Dose: 7 mg Nystatin (Nystop Powder -) 1 applic TP TID [facility] Last Admin: 12/28/16 06:27 Dose: 1 applic Ondansetron HCl (Zofran Injection) 4 mg IVPUSH Q6H PRN PRN Reason: NAUSEA Pantoprazole Sodium (Protonix -) 40 mg PO DAILY [facility] Last Admin: 12/28/16 09:27 Dose: 40 mg Sodium Hypochlorite (Dakin's Solution 0.25% (Half-Strength) -) 1 applic TP BID [facility] Spironolactone (Aldactone -) 50 mg PO DAILY [facility] Last Admin: 12/28/16 09:28 Dose: 50 mg Valsartan (Diovan -) 160 mg PO DAILY [facility] Last Admin: 12/28/16 09:27 Dose: 160 mg Warfarin Sodium (Coumadin -) 6 mg PO DAILY@1800 [facility] Last Admin: 12/27/16 17:08 Dose: 6 mg - Objective Vital Signs: Vital Signs Temperature 98.6 F 12/28/16 10:00 Pulse Rate 83 12/28/16 10:00 Respiratory Rate 18 12/28/16 10:00 Blood Pressure 141/57 12/28/16 10:00 O2 Sat by Pulse Oximetry (%) 97 12/28/16 10:00 Constitutional: Yes: No Distress, Calm Cardiovascular: Yes: Regular Rate and Rhythm, S1, S2 Respiratory: Yes: Regular, Other (crackles at bases) Gastrointestinal: Yes: Normal Bowel Sounds, Soft, Abdomen, Obese. No: Tenderness Edema: No Neurological: Yes: Alert, Oriented Labs: CBC, BMP 12/28/16 06:45 12/28/16 06:45 INR, PTT INR 2.21 (0.82-1.09) H 12/28/16 06:45 Problem List - Problems (1) Perforated sigmoid colon Code(s): K63.1 - PERFORATION OF INTESTINE (NONTRAUMATIC) (2) Colostomy in place Code(s): Z93.3 - COLOSTOMY STATUS (3) Dilatation of colon Code(s): K59.39 - OTHER MEGACOLON (4) LLQ pain Code(s): R10.32 - LEFT LOWER QUADRANT PAIN (5) Cancer of left breast Code(s): C50.912 - MALIGNANT NEOPLASM OF UNSPECIFIED SITE OF LEFT FEMALE BREAST Qualifiers: Breast location: upper outer quadrant of breast Estrogen receptor status: positive Patient sex: female Qualified Code(s): C50.412 - Malignant neoplasm of upper-outer quadrant of left female breast; C50.412 - Malignant neoplasm of upper-outer quadrant of left female breast; C50.412 - Malignant neoplasm of upper-outer quadrant of left female breast; C50.412 - Malignant neoplasm of upper-outer quadrant of left female breast; Z17.0 - Estrogen receptor positive status [ER+]; Z17.0 - Estrogen receptor positive status [ER+] (6) Diabetes mellitus type 2, noninsulin dependent Code(s): E11.9 - TYPE 2 DIABETES MELLITUS WITHOUT COMPLICATIONS (7) H/O: CVA (cerebrovascular accident) Code(s): Z86.73 - PRSNL HX OF TIA (TIA), AND CEREB INFRC W/O RESID DEFICITS (8) Supratherapeutic INR Code(s): R79.1 - ABNORMAL COAGULATION PROFILE (9) Hypertension Code(s): I10 - ESSENTIAL (PRIMARY) HYPERTENSION Qualifiers: Hypertension type: essential hypertension Qualified Code(s): I10 - Essential (primary) hypertension; I10 - Essential (primary) hypertension; I10 - Essential (primary) hypertension (10) COPD (chronic obstructive pulmonary disease) Code(s): J44.9 - CHRONIC OBSTRUCTIVE PULMONARY DISEASE, UNSPECIFIED (11) Hypomagnesemia Code(s): E83.42 - HYPOMAGNESEMIA (12) Hypophosphatemia Code(s): E83.39 - OTHER DISORDERS OF PHOSPHORUS METABOLISM (13) Hypoalbuminemia Code(s): E88.09 - OTH DISORDERS OF PLASMA-PROTEIN METABOLISM, NEC (14) Hypokalemia Code(s): E87.6 - HYPOKALEMIA (15) Subtherapeutic anticoagulation Code(s): Z51.81 - ENCOUNTER FOR THERAPEUTIC DRUG LEVEL MONITORING Z79.01 - PENITENTIARY (CURRENT) USE OF 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 (16) Acute pulmonary edema Code(s): J81.0 - ACUTE PULMONARY EDEMA (17) Acute exacerbation of congestive heart failure Code(s): I50.9 - HEART FAILURE, UNSPECIFIED Qualifiers: Congestive heart failure type: combined Qualified Code(s): I50.43 - Acute on chronic combined systolic (congestive) and diastolic (congestive) heart failure; I50.43 - Acute on chronic combined systolic (congestive) and diastolic (congestive) heart failure; I50.43 - Acute on chronic combined systolic (congestive) and diastolic (congestive) heart failure; I50.43 - Acute on chronic combined systolic (congestive) and diastolic (congestive) heart failure (18) Tachycardia Code(s): R00.0 - TACHYCARDIA, UNSPECIFIED (19) Hypoxemia Code(s): R09.02 - HYPOXEMIA (20) Acute respiratory acidosis Code(s): E87.2 - ACIDOSIS (21) Subendocardial ischemia Code(s): I24.8 - OTHER FORMS OF ACUTE ISCHEMIC HEART DISEASE (22) Left renal artery stenosis Code(s): I70.1 - ATHEROSCLEROSIS OF RENAL ARTERY Assessment/Plan Lasix was changed to PO- to monitor renal function. Pt on BB, ARB, Coumadin Cardio Consult appreciated; meds are adjusted. Pt finished IV abtx, PO Flagyl Monitor and replete electrolytes. AM labs. Coumadin to be adjusted, INR in AM. To plan further renal artery stenosis eval Case was d/w pt's nurse.
[2016-12-28] MEDS: WARFARIN NA 3 MG TABLET PO SCH (16:59)
[2016-12-28] MEDS ORDERED: ZOLPIDEM TARTRATE 5 MG TABLET PO PRN (22:31)
[2016-12-28] MEDS: SODIUM HYPOCHLORITE 0.25%- 473 ML BULK BOTTLE TP SCH (22:40)
[2016-12-28] MEDS: ANASTROZOLE 1 MG TABLET PO SCH (22:40)
[2016-12-29] MEDS: INSULIN SLIDING SCALE (NOVOLOG) 1 VIAL SQ SCH ×3 (06:10→16:41)
[2016-12-29] MEDS: NYSTATIN POWDER 100,000 UNITS/GM - 15 GM TOPICAL POWDER TP SCH ×2 (06:10→13:08)
[2016-12-29] MEDS: metFORMIN HCL 500 MG TABLET (FP) PO SCH ×2 (06:10→16:41)
[2016-12-29 07:05] LABS: INR 2.45 (0.82-1.09); PROTHROMBIN TIME (PATIENT) 27.7 SEC (9.98-11.88)
[2016-12-29 07:11] LABS: MCH 31.3 pg (25.7-33.7); MCHC 33.9 g/dl (32.0-36.0); MEAN CELL VOLUME 92.5 fl (80-96); MEAN PLT VOLUME 7.6 fl (7.5-11.1); PLATELET COUNT 386 K/MM3 (134-434); RDW 15.1 % (11.6-15.6); WHITE BLOOD COUNT 6.4 K/mm3 (4.0-10.0)
[2016-12-29 07:23] LABS: ANION GAP 8 (8-16); CALCIUM 8.5 mg/dL (8.5-10.1); CO2 31 mmol/L (21-32); CREATININE 0.3 mg/dL (0.55-1.02); GLUCOSE,RANDOM 113 mg/dL (74-106)
--- NOTE | 2016-12-29 09:49 | PN ---
Progress Note, Physician History of Present Illness: Pt w/o fever, CP. palp, SOB, dizziness, N, V, abd pain. Pt fells that her mood in down, has decreased energy. - Current Medication List Current Medications: Active Medications Acetaminophen (Tylenol -) 650 mg PO Q6H PRN PRN Reason: FEVER OR PAIN Last Admin: 12/20/16 00:15 Dose: 650 mg Albuterol Sulfate (Ventolin Hfa Inhaler -) 2 puff IH Q4H PRN PRN Reason: SHORT OF BREATH/WHEEZING Albuterol/Ipratropium (Duoneb -) 1 amp NEB Q6H PRN Last Admin: 12/28/16 18:54 Dose: 1 amp Anastrozole (Arimidex -) 1 mg PO HS [facility] Last Admin: 12/28/16 22:40 Dose: 1 mg Carvedilol (Coreg -) 25 mg PO BID [facility] Last Admin: 12/28/16 22:40 Dose: 25 mg Furosemide (Lasix -) 20 mg PO DAILY [facility] Last Admin: 12/28/16 09:28 Dose: 20 mg Insulin Aspart (Novolog Vial Sliding Scale -) 1 vial SQ ACHS [facility] PRN Reason: Protocol Last Admin: 12/29/16 06:10 Dose: Not Given Metformin HCl (Glucophage -) 1,000 mg PO BIDAC [facility] Last Admin: 12/29/16 06:10 Dose: 1,000 mg Mometasone Furoate (Asmanex 110mcg -) 1 puff IH BID [facility] Last Admin: 12/28/16 22:40 Dose: 1 puff Nicotine (Nicoderm Patch -) 7 mg TD DAILY [facility] Last Admin: 12/28/16 09:28 Dose: 7 mg Nystatin (Nystop Powder -) 1 applic TP TID [facility] Last Admin: 12/29/16 06:10 Dose: 1 applic Pantoprazole Sodium (Protonix -) 40 mg PO DAILY [facility] Last Admin: 12/28/16 09:27 Dose: 40 mg Sodium Hypochlorite (Dakin's Solution 0.25% (Half-Strength) -) 1 applic TP BID [facility] Last Admin: 12/28/16 22:40 Dose: 1 applic Spironolactone (Aldactone -) 50 mg PO DAILY [facility] Last Admin: 12/28/16 09:28 Dose: 50 mg Valsartan (Diovan -) 160 mg PO DAILY [facility] Last Admin: 12/28/16 09:27 Dose: 160 mg Warfarin Sodium (Coumadin -) 6 mg PO DAILY@1800 [facility] Last Admin: 12/28/16 16:59 Dose: 6 mg Zolpidem Tartrate (Ambien -) 5 mg PO HS PRN PRN Reason: INSOMNIA Last Admin: 12/28/16 22:40 Dose: 5 mg - Objective Vital Signs: Vital Signs Temperature 98.0 F 12/29/16 06:00 Pulse Rate 88 12/29/16 06:00 Respiratory Rate 16 12/29/16 06:00 Blood Pressure 142/57 12/29/16 06:00 O2 Sat by Pulse Oximetry (%) 97 12/28/16 22:00 Constitutional: Yes: No Distress, Calm Cardiovascular: Yes: S1, S2 Respiratory: Yes: Regular, Other (left base athelectasis) Gastrointestinal: Yes: Normal Bowel Sounds, Soft, Tenderness Edema: LLE: Trace, RLE: Trace Neurological: Yes: Alert, Oriented Labs: CBC, BMP 12/29/16 05:38 12/29/16 05:38 INR, PTT INR 2.45 (0.82-1.09) H 12/29/16 05:38 Problem List - Problems (1) Perforated sigmoid colon Code(s): K63.1 - PERFORATION OF INTESTINE (NONTRAUMATIC) (2) Colostomy in place Code(s): Z93.3 - COLOSTOMY STATUS (3) Dilatation of colon Code(s): K59.39 - OTHER MEGACOLON (4) LLQ pain Code(s): R10.32 - LEFT LOWER QUADRANT PAIN (5) Cancer of left breast Code(s): C50.912 - MALIGNANT NEOPLASM OF UNSPECIFIED SITE OF LEFT FEMALE BREAST Qualifiers: Breast location: upper outer quadrant of breast Estrogen receptor status: positive Patient sex: female Qualified Code(s): C50.412 - Malignant neoplasm of upper-outer quadrant of left female breast; C50.412 - Malignant neoplasm of upper-outer quadrant of left female breast; C50.412 - Malignant neoplasm of upper-outer quadrant of left female breast; C50.412 - Malignant neoplasm of upper-outer quadrant of left female breast; Z17.0 - Estrogen receptor positive status [ER+]; Z17.0 - Estrogen receptor positive status [ER+] (6) Diabetes mellitus type 2, noninsulin dependent Code(s): E11.9 - TYPE 2 DIABETES MELLITUS WITHOUT COMPLICATIONS (7) H/O: CVA (cerebrovascular accident) Code(s): Z86.73 - PRSNL HX OF TIA (TIA), AND CEREB INFRC W/O RESID DEFICITS (8) Supratherapeutic INR Code(s): R79.1 - ABNORMAL COAGULATION PROFILE (9) Hypertension Code(s): I10 - ESSENTIAL (PRIMARY) HYPERTENSION Qualifiers: Hypertension type: essential hypertension Qualified Code(s): I10 - Essential (primary) hypertension; I10 - Essential (primary) hypertension; I10 - Essential (primary) hypertension (10) COPD (chronic obstructive pulmonary disease) Code(s): J44.9 - CHRONIC OBSTRUCTIVE PULMONARY DISEASE, UNSPECIFIED Qualifiers : COPD type: unspecified COPD Qualified Code(s): J44.9 - Chronic obstructive pulmonary disease, unspecified; J44.9 - Chronic obstructive pulmonary disease, unspecified; J44.9 - Chronic obstructive pulmonary disease, unspecified; J44.9 - Chronic obstructive pulmonary disease, unspecified (11) Hypomagnesemia Code(s): E83.42 - HYPOMAGNESEMIA (12) Hypophosphatemia Code(s): E83.39 - OTHER DISORDERS OF PHOSPHORUS METABOLISM (13) Hypoalbuminemia Code(s): E88.09 - OTH DISORDERS OF PLASMA-PROTEIN METABOLISM, NEC (14) Hypokalemia Code(s): E87.6 - HYPOKALEMIA (15) Subtherapeutic anticoagulation Code(s): Z51.81 - ENCOUNTER FOR THERAPEUTIC DRUG LEVEL MONITORING Z79.01 - [facility] (CURRENT) USE OF 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 (16) Acute pulmonary edema Code(s): J81.0 - ACUTE PULMONARY EDEMA (17) Acute exacerbation of congestive heart failure Code(s): I50.9 - HEART FAILURE, UNSPECIFIED Qualifiers: Congestive heart failure type: combined Qualified Code(s): I50.43 - Acute on chronic combined systolic (congestive) and diastolic (congestive) heart failure; I50.43 - Acute on chronic combined systolic (congestive) and diastolic (congestive) heart failure; I50.43 - Acute on chronic combined systolic (congestive) and diastolic (congestive) heart failure; I50.43 - Acute on chronic combined systolic (congestive) and diastolic (congestive) heart failure (18) Tachycardia Code(s): R00.0 - TACHYCARDIA, UNSPECIFIED (19) Hypoxemia Code(s): R09.02 - HYPOXEMIA (20) Acute respiratory acidosis Code(s): E87.2 - ACIDOSIS (21) Subendocardial ischemia Code(s): I24.8 - OTHER FORMS OF ACUTE ISCHEMIC HEART DISEASE (22) Left renal artery stenosis Code(s): I70.1 - ATHEROSCLEROSIS OF RENAL ARTERY (23) Depression Code(s): F32.9 - MAJOR DEPRESSIVE DISORDER, SINGLE EPISODE, UNSPECIFIED Assessment/Plan Lasix was changed to PO- to monitor renal function. Pt on BB, ARB, Coumadin Cardio Consult appreciated; meds are adjusted. Pt finished IV abtx, PO Flagyl Monitor and replete electrolytes. AM labs. Coumadin to be adjusted, INR in AM. To plan further renal artery stenosis evaluation as outpatient. ADDENDUM to DC Summary: On12/23/2016 evening pt developed Acute CHF exacerbation, tachycardia; she was treated with IV Lasix and Metoprolol, and continued to be monitor on Telemetry. Pt was seen by Cardio (Dr. Coombs/ Maru). CE were c/w subendocardic injury (max Trop I peak: 0.19). ECHO ( moderately reduced LVF, moderate global LV hypokinesis, moderate MR) and renal artery US (50 to 60 % left artery stenosis; further workup to be done in the near future as outpatient) were done. Heart medication was adjusted by Cardio; case was reviewed today with Dr. Mahoney (pt is stable for DC). Pt with mild depression and was stated today on Wellbutrin ( dose might need to be increased in after 3-7 days). Pt needs daily INR ( this week). Pt also needs CBC, CMP, TSH, Free T4 in 1 or 2 days. Pt also needs to f/ u as outpatient with Dr. Coombs (or Maru). Case was d/w pt's nurse. Time spent for managing pt's care: over 40 minutes
[2016-12-29] MEDS ORDERED: PT OWN MED DRAWER 7, Y5N ONE (09:57)
[2016-12-29] MEDS: PANTOPRAZOLE 40 MG TABLET (FP) PO SCH (09:58)
[2016-12-29] MEDS: SPIRONOLACTONE 25 MG TABLET (FP) PO SCH (09:59)
[2016-12-29] MEDS: CARVEDILOL 12.5 MG TABLET (FP) PO SCH (09:59)
[2016-12-29] MEDS: VALSARTAN 160 MG TABLET (UD) PO SCH (09:59)
[2016-12-29] MEDS: FUROSEMIDE 20 MG TABLET (FP) PO SCH (09:59)
[2016-12-29] MEDS: NICOTINE 7 MG/24 HOURS TOPICAL PATCH TD SCH (09:59)
[2016-12-29] MEDS: SODIUM HYPOCHLORITE 0.25%- 473 ML BULK BOTTLE TP SCH (10:00)
[2016-12-29] MEDS: MOMETASONE FUROATE 110 MCG/IH INHALER IH SCH (10:01)
[2016-12-29] MEDS: ALBUTEROL SO4 2.5/IPRATROPIUM 0.5 INH SOL 3 ML VIAL.NEB. NEB PRN (10:15)
--- NOTE | 2016-12-29 11:13 | PN ---
Progress Note, Physician Chief Complaint: Events noted Not in distress History of Present Illness: Patient was seen and examined. Awake and alert. Chart was reviewed Denies chest pain or palpitations Receiving bronchodilator therapy - Current Medication List Current Medications: Active Medications Acetaminophen (Tylenol -) 650 mg PO Q6H PRN PRN Reason: FEVER OR PAIN Last Admin: 12/20/16 00:15 Dose: 650 mg Albuterol Sulfate (Ventolin Hfa Inhaler -) 2 puff IH Q4H PRN PRN Reason: SHORT OF BREATH/WHEEZING Albuterol/Ipratropium (Duoneb -) 1 amp NEB Q6H PRN Last Admin: 12/28/16 18:54 Dose: 1 amp Anastrozole (Arimidex -) 1 mg PO HS [facility] Last Admin: 12/28/16 22:40 Dose: 1 mg Carvedilol (Coreg -) 25 mg PO BID [facility] Last Admin: 12/29/16 09:59 Dose: 25 mg Furosemide (Lasix -) 20 mg PO DAILY [facility] Last Admin: 12/29/16 09:59 Dose: 20 mg Insulin Aspart (Novolog Vial Sliding Scale -) 1 vial SQ ACHS [facility] PRN Reason: Protocol Last Admin: 12/29/16 06:10 Dose: Not Given Metformin HCl (Glucophage -) 1,000 mg PO BIDAC [facility] Last Admin: 12/29/16 06:10 Dose: 1,000 mg Mometasone Furoate (Asmanex 110mcg -) 1 puff IH BID [facility] Last Admin: 12/29/16 10:01 Dose: 1 puff Nicotine (Nicoderm Patch -) 7 mg TD DAILY [facility] Last Admin: 12/29/16 09:59 Dose: 7 mg Nystatin (Nystop Powder -) 1 applic TP TID [facility] Last Admin: 12/29/16 06:10 Dose: 1 applic Pantoprazole Sodium (Protonix -) 40 mg PO DAILY [facility] Last Admin: 12/29/16 09:58 Dose: 40 mg Sodium Hypochlorite (Dakin's Solution 0.25% (Half-Strength) -) 1 applic TP BID [facility] Last Admin: 12/29/16 10:00 Dose: 1 applic Spironolactone (Aldactone -) 50 mg PO DAILY [facility] Last Admin: 12/29/16 09:59 Dose: 50 mg Valsartan (Diovan -) 160 mg PO DAILY [facility] Last Admin: 12/29/16 09:59 Dose: 160 mg Warfarin Sodium (Coumadin -) 6 mg PO DAILY@1800 [facility] Last Admin: 12/28/16 16:59 Dose: 6 mg Zolpidem Tartrate (Ambien -) 5 mg PO HS PRN PRN Reason: INSOMNIA Last Admin: 12/28/16 22:40 Dose: 5 mg - Objective Vital Signs: Vital Signs Temperature 98.0 F 12/29/16 06:00 Pulse Rate 88 12/29/16 06:00 Respiratory Rate 16 12/29/16 06:00 Blood Pressure 142/57 12/29/16 06:00 O2 Sat by Pulse Oximetry (%) 97 12/28/16 22:00 Neck: Yes: Supple Cardiovascular: Yes: Regular Rate and Rhythm, Murmur (SM), S1, S2 Respiratory: Yes: Diminished Gastrointestinal: Yes: Normal Bowel Sounds, Soft. No: Tenderness Edema: No Additional Findings/Remarks: - Review of Systems Constitutional: denies: Chills, Fever Cardiovascular: denies Chest Pain, denies: Palpitations, (-) Shortness of Breath Respiratory: denies: Cough, Hemoptysis, Orthopnea, PND,(-) SOB, SOB on Exertion Gastrointestinal: denies: Abdominal Pain, Constipation, Diarrhea, Melena, Nausea , Rectal Bleeding, Vomiting Genitourinary: denies: Flank Pain, Hematuria Musculoskeletal: denies: Joint Pain Neurological: denies: Dizziness, Headache, Seizure, Syncope Labs: CBC, BMP 12/29/16 05:38 12/29/16 05:38 INR, PTT INR 2.45 (0.82-1.09) H 12/29/16 05:38 Problem List - Problems (1) Acute exacerbation of congestive heart failure Code(s): I50.9 - HEART FAILURE, UNSPECIFIED Qualifiers: Congestive heart failure type: combined Qualified Code(s): I50.43 - Acute on chronic combined systolic (congestive) and diastolic (congestive) heart failure; I50.43 - Acute on chronic combined systolic (congestive) and diastolic (congestive) heart failure; I50.43 - Acute on chronic combined systolic (congestive) and diastolic (congestive) heart failure; I50.43 - Acute on chronic combined systolic (congestive) and diastolic (congestive) heart failure (2) Acute pulmonary edema Code(s): J81.0 - ACUTE PULMONARY EDEMA (3) Acute respiratory failure with hypoxia and hypercapnia Code(s): J96.01 - ACUTE RESPIRATORY FAILURE WITH HYPOXIA J96.02 - ACUTE RESPIRATORY FAILURE WITH HYPERCAPNIA (4) Anemia Code(s): D64.9 - ANEMIA, UNSPECIFIED Qualifiers: Anemia type: unspecified type Qualified Code(s): D64.9 - Anemia, unspecified; D64.9 - Anemia, unspecified (5) COPD (chronic obstructive pulmonary disease) Code(s): J44.9 - CHRONIC OBSTRUCTIVE PULMONARY DISEASE, UNSPECIFIED Qualifiers : COPD type: unspecified COPD Qualified Code(s): J44.9 - Chronic obstructive pulmonary disease, unspecified; J44.9 - Chronic obstructive pulmonary disease, unspecified; J44.9 - Chronic obstructive pulmonary disease, unspecified; J44.9 - Chronic obstructive pulmonary disease, unspecified (6) Colostomy in place Code(s): Z93.3 - COLOSTOMY STATUS (7) Diabetes mellitus type 2, noninsulin dependent Code(s): E11.9 - TYPE 2 DIABETES MELLITUS WITHOUT COMPLICATIONS (8) H/O: CVA (cerebrovascular accident) Code(s): Z86.73 - PRSNL HX OF TIA (TIA), AND CEREB INFRC W/O RESID DEFICITS (9) Hypertension Code(s): I10 - ESSENTIAL (PRIMARY) HYPERTENSION Qualifiers: Hypertension type: essential hypertension Qualified Code(s): I10 - Essential (primary) hypertension; I10 - Essential (primary) hypertension; I10 - Essential (primary) hypertension (10) Left renal artery stenosis Code(s): I70.1 - ATHEROSCLEROSIS OF RENAL ARTERY (11) Perforated sigmoid colon Code(s): K63.1 - PERFORATION OF INTESTINE (NONTRAUMATIC) (12) Subendocardial ischemia Code(s): I24.8 - OTHER FORMS OF ACUTE ISCHEMIC HEART DISEASE Assessment/Plan 1. Acute on chronic systolic failure with acute pulmonary edema and subendocardial ischemic injury resolved 2. Acute hypoxic and hypercapenic respiratory failure 3. Perforated sigmoid colon (pathology c/w ischemic colitis) post resection ( Dwaine's procedure) 4. History of CVA with left MCA thrombus 5. COPD 6. HTN/HCVD 7. Hyperlipidemia 8. Anemia 9. 50-60% left renal artery stenosis PLAN: 1. Continue PO Lasix and Aldactone with monitoring renal function and electrolytes 2. Consider CTA of abdomen to assess renal artery stenosis - can be done later as outpatient 3. Complete antibiotic course 4. Continue Coumadin per INR 5. Continue Carvedilol and Diovan with uptitration as hemodynamics tolerate 6. GI prophylaxis and wound care. Await transfer to SNF/rehab and eventually she is to follow up in the office Further plans are to follow Chandu Mahoney MD
[2016-12-29] MEDS ORDERED: ALPRAZolam 0.25 MG TABLET PO PRN (12:48)
[2016-12-29] MEDS ORDERED: buPROPion HCL 75 MG TABLET PO SCH (14:00)
[2016-12-29 14:26] VITALS: TEMP 98.1
[2016-12-29 16:34] VITALS: BP 140/63; PULSE 92
== END 2016-12-29 16:48 | DRG 329 ==
LOC: FER 11:15 → FM/S 15:55 → UNDOADMOB 16:29 → INTOOBSV 16:29 → OBSVTOIN 16:29 → FM/S 16:29 → JSAMEDAYSX 12-10 17:15 → JICU 12-10 21:57 → J2W 12-12 22:29 → J4S 12-20 12:21
PROVIDERS: ADMIT Internal Medicine; ATTEND Specialist
PROC: 0D1M0Z4 Bypass Descending Colon to Cutaneous, Open Approach (ICD-10-PCS; 2016-12-08)
PROC: 0DSL0ZZ Reposition Transverse Colon, Open Approach (ICD-10-PCS; 2016-12-10)
PROC: 30233K1 Transfusion of Nonautologous Frozen Plasma into Peripheral Vein, Percutaneous Approach (ICD-10-PCS; 2016-12-10)
PROC: 0DTN0ZZ Resection of Sigmoid Colon, Open Approach (ICD-10-PCS; principal; 2016-12-10 17:26)
DX: A04.72 Enterocolitis due to Clostridium difficile, not specified as recurrent (principal); A41.9 Sepsis, unspecified organism; I50.21 Acute systolic (congestive) heart failure; J96.02 Acute respiratory failure with hypercapnia; J96.01 Acute respiratory failure with hypoxia; I24.8 Other forms of acute ischemic heart disease; N39.0 Urinary tract infection, site not specified; K57.20 Diverticulitis of large intestine with perforation and abscess without bleeding; J44.9 Chronic obstructive pulmonary disease, unspecified; C50.912 Malignant neoplasm of unspecified site of left female breast; Z86.73 Personal history of transient ischemic attack (TIA), and cerebral infarction without residual deficits; E78.5 Hyperlipidemia, unspecified; I10 Essential (primary) hypertension; F17.210 Nicotine dependence, cigarettes, uncomplicated; Z79.84 Long term (current) use of oral hypoglycemic drugs; E66.9 Obesity, unspecified; Z68.31 Body mass index [BMI] 31.0-31.9, adult; H54.61 Unqualified visual loss, right eye, normal vision left eye; H54.115 Blindness right eye category 5, low vision left eye; Z17.0 Estrogen receptor positive status [ER+]; Z79.01 Long term (current) use of anticoagulants; R79.1 Abnormal coagulation profile; Z80.0 Family history of malignant neoplasm of digestive organs; Z80.3 Family history of malignant neoplasm of breast; Z80.1 Family history of malignant neoplasm of trachea, bronchus and lung; Z80.8 Family history of malignant neoplasm of other organs or systems; Z86.718 Personal history of other venous thrombosis and embolism; E83.42 Hypomagnesemia; E83.39 Other disorders of phosphorus metabolism; E88.09 Other disorders of plasma-protein metabolism, not elsewhere classified; Z51.89 Encounter for other specified aftercare; I70.1 Atherosclerosis of renal artery
CPT/HCPCS: 31500; 36415; 36430; 36600; 71010-TC; 71020-TC; 74020-TC; 74177-TC; 76775-TC; 80048; 80053; 80076; 81003; 81015; 82550; 82803; 83605; 83690; 83735; 83880; 84100; 84439; 84443; 84484; 85025; 85027; 85610; 85730; 86850; 86900; 86901; 87040; 87070; 87075; 87086; 87205; 87324; 87449; 88307-TC; 93005; 93010; 93306-TC; 93976; 94002; 94010; 94640; 94760; 97116-GP; 97161-GP; 99284-25; G0378; J1644; J3480; P9017

== ENCOUNTER 2017-01-09 12:30 | Day surgery (SDC) | payer OTHER ==
[2017-01-09] MEDS ORDERED: ACETAMINOPHEN 325 MG TABLET (FP) PO PRN (14:10)
[2017-01-09] MEDS ORDERED: ZOLPIDEM TARTRATE 5 MG TABLET PO PRN (14:10)
[2017-01-09] MEDS ORDERED: ALBUTEROL SO4 2.5/IPRATROPIUM 0.5 INH SOL 3 ML VIAL.NEB. NEB PRN (14:10)
[2017-01-09 14:33] LABS: MCH 30.4 pg (25.7-33.7); MCHC 32.5 g/dl (32.0-36.0); MEAN CELL VOLUME 93.4 fl (80-96); MEAN PLT VOLUME 7.5 fl (7.5-11.1); PLATELET COUNT 406 K/MM3 (134-434); RDW 15.4 % (11.6-15.6); WHITE BLOOD COUNT 9.6 K/mm3 (4.0-10.0)
[2017-01-09] MEDS ORDERED: FUROSEMIDE 40 MG/4 ML INJECTABLE VIAL IVPUSH ONE (14:41)
[2017-01-09 15:04] LABS: ALK PHOS 70 U/L (45-117); ANION GAP 12 (8-16); BILIRUBIN,TOTAL 0.2 mg/dL (0.2-1.0); CALCIUM 9.5 mg/dL (8.5-10.1); CO2 26 mmol/L (21-32); CREATININE 1.4 mg/dL (0.55-1.02); GLUCOSE,RANDOM 97 mg/dL (74-106); SGOT/AST 12 U/L (15-37); SGPT/ALT 12 U/L (12-78); TOT PROT 6.1 g/dl (6.4-8.2)
[2017-01-09 15:56] LABS: INR 6.02 (0.82-1.09)
[2017-01-09] MEDS ORDERED: INSULIN SLIDING SCALE (NOVOLOG) 1 VIAL SQ SCH (16:30)
[2017-01-09 17:14] VITALS: BMI 30.5
[2017-01-09] MEDS: INSULIN SLIDING SCALE (NOVOLOG) 1 VIAL SQ SCH ×2 (17:37→21:24)
[2017-01-09] MEDS: metFORMIN HCL 500 MG TABLET (FP) PO SCH (17:40)
[2017-01-09] MEDS ORDERED: WARFARIN NA 3 MG TABLET PO SCH (18:00)
--- NOTE | 2017-01-09 18:22 | HP ---
Admitting History and Physical - Primary Care Physician PCP: Faith Shay - Admission Chief Complaint: low Hg History of Present Illness: 66 YOF ASHD CHF AFib DM breast CA COPD anemia, s/p recent partial L colectomy for colitis and L colostomy, was in [facility] doing OK but her H&H were slowly drifting down, yesterday Hg 7.4 so pt transferred for blood transfusions as a satellite admission No overt bleeding noted [place] 2.8 [place] but today here 6 on 5 mg/day coumadin ; will hold coumadin (pt said she was on 6 mg /day at home before admission) History Source: Patient, Medical Record, Transfer Record Limitations to Obtaining History: No Limitations - Past Medical History SKATE [employer]ER: Yes: CVA (no residual) Cardiovascular: Yes: HTN, Hyperlipdemia Pulmonary: Yes: COPD Gastrointestinal: Yes: Other (obesity) Heme/Onc: Yes: Cancer (breast (left) diagnosed May invasive ductal, ER/ND+/ Her2-, on Arimidex; had calcifications out 2005, malignant per pt, did not have radiation (near same spot)), Other (on coumadin since stroke) Endocrine: Yes: Diabetes Mellitus Dermatology: Yes: Basal Cell (multiple sites removed) - Past Surgical History Past Surgical History: Yes: Breast Biopsy (2005 and 06/16), Cataract Removal ( bilateral). No: Colonoscopy (never had) - Smoking History Smoking history: Former smoker Have you smoked in the past 12 months: Yes Aproximately how many cigarettes per day: 16 If you are a former smoker, when did you quit?: nov 2016 - Alcohol/Substance Use Hx Alcohol Use: No (social in past, not recently) History of Substance Use: reports: None - Social History Usual Living Arrangement: Yes: Long Term ADL: Support Services History of Recent Travel: No Home Medications - Allergies Allergies/Adverse Reactions: Allergies Allergy/AdvReac Type Severity Reaction Status Date / Time No Known Allergies Allergy Verified 12/08/16 11:22 - Home Medications Home Medications: Ambulatory Orders Atorvastatin Ca [Lipitor] 20 mg PO HS #0 tablet 10/31/12 Metformin HCl [Glucophage] 1,000 mg PO BID 05/24/16 Calcium Carbonate/Vitamin D3 [Calcium 500-Vit D3 600 Tablet] 2 each PO DAILY 11/16 Cyanocobalamin (Vitamin B-12) [B-12] 1,000 mcg PO DAILY 12/08/16 Acetaminophen [Tylenol .Regular Strength -] 650 mg PO Q6H PRN #0 tablet Insulin Sliding Scale [Novolog Vial Sliding Scale -] 1 vial SQ ACHS units 12/23 Nicotine Patch [Nicoderm Patch -] 7 mg TD DAILY patch 12/23/16 Nystatin Powder [Nystop Powder -] 1 applic TP TID applic 12/23/16 Pantoprazole Sodium [Protonix -] 40 mg PO DAILY #15 tablet 12/23/16 Albuterol 2.5/Ipratropium 0.5 [Duoneb -] 1 amp NEB Q6H PRN #120 amp 12/29/16 Bupropion HCl [Wellbutrin -] 75 mg PO BID tablet 12/29/16 Carvedilol [Coreg -] 25 mg PO BID #60 tablet 12/29/16 Furosemide [Lasix -] 20 mg PO DAILY tablet 12/29/16 Mometasone Furoate [Asmanex 110Mcg -] 1 puff IH BID #1 inhaler 12/29/16 Sodium Hypochlorite [Dakin's Solution 0.25% (Half-Strength) -] 1 applic TP BID ml 12/29/16 Zolpidem Tartrate [Ambien] 5 mg PO HS PRN #30 tablet MDD 1 12/29/16 Alprazolam [Xanax] DAILY 01/09/17 Ferrous Sulfate 325 mg PO DAILY 01/09/17 Insulin Sliding Scale [Novolog Vial Sliding Scale -] 1 vial SQ ACHS units 01/10 Spironolactone [Aldactone -] 25 mg PO DAILY tablet 01/10/17 Valsartan [Diovan] 80 mg PO DAILY tablet 01/10/17 Warfarin Na [Coumadin -] 3 mg PO DAILY@1800 #0 tablet 01/10/17 Family Disease History - Family Disease History Family History: Unremarkable Family Disease History: CA: Sister (breast CA) Review of Systems - Review of Systems Constitutional: denies: Chills, Fever, Lethargy, Loss of Appetite HENT: denies: Difficult Swallowing, Epistaxis Neck: denies: Stiffness, Tenderness Cardiovascular: denies: Chest Pain, Shortness of Breath Respiratory: denies: Cough, SOB Gastrointestinal: denies: Abdominal Pain, Bloating, Constipation, Diarrhea, Vomiting, Vomiting Blood Genitourinary: denies: Dysuria, Flank Pain Musculoskeletal: denies: Back Pain, Crepitus Neurological: denies: Change in LOC, Confusion, Dizziness, Headache, Seizure, Syncope Hematology/Lymphatic: denies: Easily Bruised, Excessive Bleeding Psychiatric: reports: Altered Sleep Pattern, Anxiety. denies: Depression, Hallucinations, Suicidal Physical Examination Vital Signs: Vital Signs Temperature 98.1 F 01/09/17 14:00 Pulse Rate 91 H 01/09/17 14:00 Respiratory Rate 18 01/09/17 14:00 Blood Pressure 98/47 01/09/17 14:00 O2 Sat by Pulse Oximetry (%) Constitutional: Yes: No Distress, Calm Eyes: Yes: Conjunctiva Clear HENT: Yes: Atraumatic Neck: Yes: Supple Cardiovascular: No: Regular Rate and Rhythm Respiratory: Yes: CTA Bilaterally, On Nasal O2 Gastrointestinal: Yes: Soft, Other (L colostomy bag). No: Distention Renal/: No: Escobar Present, Hematuria Musculoskeletal: No: Joint Stiffness, Joint Swelling Extremities: No: Cold, Cool Edema: No Integumentary: No: Rash, Venous Stasis Changes Neurological: Yes: WNL, Alert, Oriented ...Motor Strength: WNL Psychiatric: Yes: WNL, Alert, Oriented. No: Agitated, Suicidal Ideation Labs: CBC, BMP 01/09/17 14:05 01/09/17 14:05 Imaging - Results Other: Report Reviewed (labs) Assessment/Plan 66 YOF ASHD CHF AFib DM breast CA COPD anemia, s/p recent partial L colectomy for colitis and L colostomy, was in [facility] doing OK but her H&H were slowly drifting down, yesterday Hg 7.4 so pt transferred for blood transfusions as a satellite admission No overt bleeding noted [place] 2.8 [place] but today here 6 on 5 mg/day coumadin ; will hold coumadin transfuse 2 U PRBC f/u labs if stable and no bleed in am transfer back to [place] in am will need f/u with heme onc, cardiology, pulmonary and GI as advised outpt also f/u with surgeon after DC home from [place] no smoking falls PFX; O2 NC as ordered d/w pt and staff
[2017-01-09] MEDS ORDERED: FUROSEMIDE 40 MG/4 ML INJECTABLE VIAL ONE (20:05)
[2017-01-09] MEDS ORDERED: ATORVASTATIN CA 20 MG TABLET (FP) PO SCH (22:00)
[2017-01-09] MEDS: CARVEDILOL 12.5 MG TABLET (FP) PO SCH (22:18)
[2017-01-09] MEDS: MOMETASONE FUROATE 110 MCG/IH INHALER IH SCH (22:22)
[2017-01-09] MEDS: buPROPion HCL 75 MG TABLET PO SCH (22:23)
[2017-01-10] MEDS: SODIUM HYPOCHLORITE 0.25%- 473 ML BULK BOTTLE TP SCH ×2 (00:12→07:00)
[2017-01-10] MEDS: NYSTATIN POWDER 100,000 UNITS/GM - 15 GM TOPICAL POWDER TP SCH ×2 (00:14→06:18)
[2017-01-10 04:00] VITALS: TEMP 97.9
[2017-01-10] MEDS: INSULIN SLIDING SCALE (NOVOLOG) 1 VIAL SQ SCH ×2 (06:01→11:37)
[2017-01-10] MEDS: metFORMIN HCL 500 MG TABLET (FP) PO SCH (06:19)
[2017-01-10 08:37] LABS: BASOPHIL 0.4 % (0-2.0); EOSINOPHIL 1.6 % (0-4.5); MCH 29.8 pg (25.7-33.7); MCHC 33.2 g/dl (32.0-36.0); MEAN PLT VOLUME 7.4 fl (7.5-11.1); NEUTROPHILS 73.9 % (42.8-82.8); PLATELET COUNT 407 K/MM3 (134-434); RDW 16.5 % (11.6-15.6); WHITE BLOOD COUNT 9.9 K/mm3 (4.0-10.0)
[2017-01-10] MEDS ORDERED: PT OWN MED DRAWER 7, Y5N ONE (08:58)
[2017-01-10 09:04] LABS: ALBUMIN 2.2 g/dl (3.4-5.0); ANION GAP 11 (8-16); BILIRUBIN,TOTAL 0.7 mg/dL (0.2-1.0); CALCIUM 9.2 mg/dL (8.5-10.1); CO2 25 mmol/L (21-32); GLUCOSE,RANDOM 117 mg/dL (74-106); SGOT/AST 11 U/L (15-37); SGPT/ALT 13 U/L (12-78); TOT PROT 6.2 g/dl (6.4-8.2)
[2017-01-10 09:05] LABS: ALK PHOS 68 U/L (45-117); CREATININE 1.3 mg/dL (0.55-1.02)
[2017-01-10] MEDS ORDERED: SODIUM POLYSTYRENE SULFONATE 15 GM/60 ML BOTTLE PO ONE (09:26)
--- NOTE | 2017-01-10 09:27 | DS ---
Physical Examination Vital Signs: Vital Signs Temperature 97.9 F 01/10/17 03:59 Pulse Rate 84 01/10/17 03:59 Respiratory Rate 18 01/10/17 03:59 Blood Pressure 109/55 01/10/17 03:59 O2 Sat by Pulse Oximetry (%) 99 01/09/17 21:06 Findings/Remarks: after informed consent 2 U PRBC were transfused (also d/w pt and pt's ) in bed awake alert NAD VSS no c/o; tolerated blood transfusion well; INR 5 Hg 10 will transfer back to [place] f/u there Constitutional: Yes: No Distress, Calm Eyes: Yes: Conjunctiva Clear HENT: Yes: Atraumatic Neck: Yes: Supple Cardiovascular: No: Regular Rate and Rhythm Respiratory: Yes: CTA Bilaterally, On Nasal O2 Gastrointestinal: Yes: Soft, Other (L colostomy). No: Distention Renal/: No: CVA Tenderness - Left, CVA Tenderness - Right Musculoskeletal: No: Joint Stiffness, Joint Swelling Extremities: No: Cold, Cool, Cyanosis Edema: No Integumentary: No: Rash, Skin Tear, Venous Stasis Changes Neurological: Yes: WNL, Alert, Oriented ...Motor Strength: WNL Psychiatric: Yes: WNL, Alert, Oriented. No: Agitated, Suicidal Ideation Labs: CBC, BMP 01/10/17 07:30 01/10/17 07:30 Discharge Summary Reason For Visit: LOW HEMOGLOBIN,SAT BLOOD TRANSFUSION Procedures: Principal: satellite adm for blood transfusions Other Procedures: 2 U prbc transfused;. coumadin held per INR Hospital Course: Hg stable; INR better; transfer back to [place] close f/u; f/u as outpt as advised pt aware noone can smoke around her while on O2 NC risk of explosion Condition: Improved - Instructions Diet, Activity, Other Instructions: f/u CBC CMP INR in 2 days thursday am and call MD with results see doses of meds changed; NO COUMADIN until friday 01/12 check INR in am colostomy and wound care as ordered surgery and ONC f/u after DC home from [place] PT rehab falls PFX O2 continuous NC as ordered Referrals: [facility] [Outside] Faith Shay [Staff Physician] - Disposition: HALF-WAY FACILITY - Home Medications Comprehensive Discharge Medication List: Ambulatory Orders Atorvastatin Ca [Lipitor] 20 mg PO HS #0 tablet 10/31/12 Metformin HCl [Glucophage] 1,000 mg PO BID 05/24/16 Calcium Carbonate/Vitamin D3 [Calcium 500-Vit D3 600 Tablet] 2 each PO DAILY 11/16 Cyanocobalamin (Vitamin B-12) [B-12] 1,000 mcg PO DAILY 12/08/16 Acetaminophen [Tylenol .Regular Strength -] 650 mg PO Q6H PRN #0 tablet Insulin Sliding Scale [Novolog Vial Sliding Scale -] 1 vial SQ ACHS units 12/23 Nicotine Patch [Nicoderm Patch -] 7 mg TD DAILY patch 12/23/16 Nystatin Powder [Nystop Powder -] 1 applic TP TID applic 12/23/16 Pantoprazole Sodium [Protonix -] 40 mg PO DAILY #15 tablet 12/23/16 Albuterol 2.5/Ipratropium 0.5 [Duoneb -] 1 amp NEB Q6H PRN #120 amp 12/29/16 Bupropion HCl [Wellbutrin -] 75 mg PO BID tablet 12/29/16 Carvedilol [Coreg -] 25 mg PO BID #60 tablet 12/29/16 Furosemide [Lasix -] 20 mg PO DAILY tablet 12/29/16 Mometasone Furoate [Asmanex 110Mcg -] 1 puff IH BID #1 inhaler 12/29/16 Sodium Hypochlorite [Dakin's Solution 0.25% (Half-Strength) -] 1 applic TP BID ml 12/29/16 Spironolactone [Aldactone -] 50 mg PO DAILY tablet 12/29/16 Valsartan [Diovan] 160 mg PO DAILY tablet 12/29/16 Warfarin Na [Coumadin -] 6 mg PO DAILY@1800 tablet 12/29/16 Zolpidem Tartrate [Ambien] 5 mg PO HS PRN #30 tablet MDD 1 12/29/16 Alprazolam [Xanax] DAILY 01/09/17 Ferrous Sulfate 325 mg PO DAILY 01/09/17
[2017-01-10 09:54] LABS: INR 5.66 (0.82-1.09)
[2017-01-10] MEDS ORDERED: VALSARTAN 80 MG TABLET (UD) PO SCH (10:00)
[2017-01-10] MEDS ORDERED: CALCIUM 500MG/VIT-D 200 UNITS COMBO TABLET (FP) PO SCH (10:00)
[2017-01-10] MEDS ORDERED: CYANOCOBALAMIN 1,000 MCG TABLET (FP) PO SCH (10:00)
[2017-01-10] MEDS ORDERED: PANTOPRAZOLE 40 MG TABLET (FP) PO SCH (10:00)
[2017-01-10] MEDS ORDERED: VALSARTAN 160 MG TABLET (UD) PO SCH (10:00)
[2017-01-10] MEDS ORDERED: NICOTINE 7 MG/24 HOURS TOPICAL PATCH TD SCH (10:00)
[2017-01-10] MEDS ORDERED: FUROSEMIDE 20 MG TABLET (FP) PO SCH (10:00)
[2017-01-10] MEDS ORDERED: SPIRONOLACTONE 25 MG TABLET (FP) PO SCH ×2 (10:00)
[2017-01-10] MEDS: MOMETASONE FUROATE 110 MCG/IH INHALER IH SCH (10:01)
[2017-01-10] MEDS: CARVEDILOL 12.5 MG TABLET (FP) PO SCH (10:02)
[2017-01-10] MEDS: buPROPion HCL 75 MG TABLET PO SCH (10:03)
[2017-01-10 13:09] VITALS: BP 122/64; PULSE 88
== END 2017-01-10 13:15 ==
LOC: J5S 12:30 → JBLOOD 12:30
PROVIDERS: ATTEND Internal Medicine
PROC: 30233N1 Transfusion of Nonautologous Red Blood Cells into Peripheral Vein, Percutaneous Approach (ICD-10-PCS; principal; 2017-01-09)
DX: D64.9 Anemia, unspecified (principal); C50.919 Malignant neoplasm of unspecified site of unspecified female breast; I50.9 Heart failure, unspecified; J44.9 Chronic obstructive pulmonary disease, unspecified; K52.89 Other specified noninfective gastroenteritis and colitis
CPT/HCPCS: 36415; 36430; 80053; 85025; 85027; 85610; 86850; 86900; 86901; 86922; P9038; P9058

== ENCOUNTER 2017-01-17 15:14 | Inpatient (IN) | payer OTHER ==
[2017-01-17 15:43] VITALS: BMI 29.9
--- NOTE | 2017-01-17 15:53 | PDOC ---
History of Present Illness - General Chief Complaint: Weakness Stated Complaint: WEAKNESS Time Seen by Provider: 01/17/17 15:24 History Source: Patient, Family Exam Limitations: No Limitations - History of Present Illness Initial Comments: This is a 66 YOF with h/o recent partial colectomy with colostomy (admitted to [facility] on 12/10/16, discharged to [facility], re-admitted to [facility] for blood transfusion in the setting of generalized weakness, re-discharged to [facility], re- admitted to [facility] out of concern for infection of the drain site and soft pressures, and just discharged home with her family earlier this afternoon. The patient had just arrived to their home with her family and they were helping her up the stairs. She could not tolerate the exertion and did not have the strength to make it up the stairs. She slumped to the ground but did not injure herself, as her son was holding her up. She did not hit her head or lose consciousness. She notes continued generalized weakness since her surgery in November, but no new changes today. The family expresses concern that they will not be able to manage the patient's care at their home, especially today because the home health aide does not start at their home until tomorrow. Past History - Past Medical History Allergies/Adverse Reactions: Allergies Allergy/AdvReac Type Severity Reaction Status Date / Time No Known Allergies Allergy Verified 01/17/17 15:43 Home Medications: Ambulatory Orders [place] 2 3/4 Bags 1 bag NR ASDIR #30 bag 01/16/17 [place] 2 3/4 Flange 1 ea NR ASDIR #30 kit 01/16/17 Non-Adherent Bandage [Combine Abd] 1 each TP ASDIR #120 bandage 01/16/17 Skin Prep 1 pad NR ASDIR #120 pad 01/16/17 Anastrozole [Arimidex -] 1 mg PO DAILY 01/17/17 Atorvastatin Calcium 20 mg PO HS 01/17/17 Bupropion HCl [Wellbutrin -] 75 mg PO BID 01/17/17 Carvedilol 25 mg PO BID 01/17/17 Furosemide 20 mg PO DAILY 01/17/17 Mometasone Furoate [Asmanex] 1 puff IH BID 01/17/17 Nicotine Patch [Nicoderm Patch -] 1 patch TD DAILY 01/17/17 Pantoprazole Sodium [Protonix] 40 mg PO DAILY 01/17/17 Valsartan 80 mg PO DAILY 01/17/17 Warfarin Sodium [Coumadin] 0 01/17/17 Anemia: No Asthma: No Cancer: Yes (BASAL CELL,Left Breast) Cardiac Disorders: Yes CVA: Yes (10/25/2012) COPD: Yes CHF: No Dementia: No Diabetes: Yes GI Disorders: Yes Disorders: No HTN: Yes Hypercholesterolemia: Yes Liver Disease: No Seizures: No Thyroid Disease: No - Surgical History Abdominal Surgery: Yes Appendectomy: No Cardiac Surgery: No Cholecystectomy: No Lung Surgery: No Neurologic Surgery: No Orthopedic Surgery: No - Suicide/Smoking/Psychosocial Hx Smoking Status: Yes Smoking History: Former smoker Have you smoked in the past 12 months: Yes Number of Cigarettes Smoked Daily: 16 If you are a former smoker, when did you quit?: nov 2016 'Breaking Loose' booklet given: 01/09/17 Hx Alcohol Use: No (social in past, not recently) Drug/Substance Use Hx: No Substance Use Type: None Hx Substance Use Treatment: No Review of Systems - Review of Systems Constitutional: Yes: Weakness. No: Chills, Fever, Unexplained wgt Loss HEENTM: No: Nose Congestion, Throat Pain Respiratory: No: Cough, Shortness of Breath Cardiac (ROS): No: Chest Pain, Palpitations ABD/GI: No: Constipated, Diarrhea, Nausea, Vomiting : No: Burning, Dysuria Musculoskeletal: No: Back Pain, Neck Pain Integumentary: No: Bruising, Rash Neurological: No: Headache, Numbness, Tingling, Weakness, Dizziness Endocrine: No: Unexplained Weight Gain, Unexplained Weight Loss *Physical Exam - Physical Exam General Appearance: Yes: Nourished, Appropriately Dressed. No: Apparent Distress HEENT: positive: EOMI, SAMARIA (left eye), Normal Voice, Hearing Grossly Normal, Other (left eye clouding and blindness). negative: Scleral Icterus (R), Scleral Icterus (L), Nasal Congestion Neck: positive: Trachea midline, Supple. negative: Tender, Rigid Respiratory/Chest: positive: Lungs Clear, Normal Breath Sounds. negative: Respiratory Distress, Crackles, Rhonchi, Stridor, Wheezing Cardiovascular: positive: Regular Rhythm, Regular Rate. negative: Murmur Gastrointestinal/Abdominal: positive: Normal Bowel Sounds, Soft. negative: Tender, Organomegaly, Pulsatile Mass, Guarding Musculoskeletal: positive: Normal Inspection. negative: Decreased Range of Motion, Vertebral Tenderness Extremity: positive: Normal Capillary Refill, Normal Inspection, Normal Range of Motion. negative: Tender, Cyanosis Integumentary: positive: Normal Color, Dry, Warm. 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 Non-traumatic fall ("slumped to ground" while family members were holding her up ) when she had just arrived at home. States that she feels no different today, but concerned that she and her family cannot maintain at home with her care concerns. DDX includes physical deconditioning, anemia, infection (i.e. PNA, UTI, wound), atelectasis, PE (though unlikely at Pt is on coumadin). Workup from earlier today is reviewed. Ordered is CBCD, CMP, Mg, Phos, cardiac panel, BNP, EKG, CXR. Dr. Mitchell (patient's general surgeon) is paged. *DC/Admit/Observation/Transfer Diagnosis at time of Disposition: Generalized weakness, Muscular deconditioning Protein calorie malnutrition Qualifiers: Protein-calorie malnutrition severity: unspecified severity Qualified Code(s): E46 - Unspecified protein-calorie malnutrition - Discharge Dispostion Condition at time of disposition: Guarded Admit: Yes - Referrals Referrals: Landen Shay MD [Primary Care Provider] - - Patient Instructions - Post Discharge Activity
--- NOTE | 2017-01-17 16:11 | PDOC ---
Attending Attestation - Resident Resident Name: Rosalba Valles - HPI HPI: 01/17/17 18:58 66 y/o female h/o weakness and recent GI surgery partial colectomy requiring a colestomy. PT has been in out of hospital for since Dec 09 2016 and in fact was just discharged from [facility] today but was unable to walk up the stairs in her home and nearly fell but her and son caught her, pt was brought back to hospital for readmission. - Physicial Exam PE: 01/17/17 19:03 Pt is awake and alert, cooperative with exam: +bs johan Cta: Heart S1s2 regular Abd soft no guarding or tenderness Ext: no edema - Medical Decision Making 01/17/17 19:04 A/P case discussed with Pt's PCP Dr. Shay, Dr Mitchell all agreed to admit pt back to hospital but on the hospitalist service for rehab placement. Pt agrees with observation admission. Pt with elevated BNP, labs noted, pt stable for admisison to hospital 01/17/17 19:07
[2017-01-17 16:58] LABS: BASOPHIL 0.4 % (0-2.0); MCH 29.6 pg (25.7-33.7); MCHC 32.3 g/dl (32.0-36.0); MEAN CELL VOLUME 91.7 fl (80-96); MEAN PLT VOLUME 7.4 fl (7.5-11.1); NEUTROPHILS 81.6 % (42.8-82.8); PLATELET COUNT 402 K/MM3 (134-434); RDW 15.4 % (11.6-15.6); WHITE BLOOD COUNT 10.3 K/mm3 (4.0-10.0)
[2017-01-17 17:07] LABS: URINE APPEARANCE SLCLOUDY; URINE BILIRUBIN NEGATIVE (NEGATIVE); URINE BLOOD NEGATIVE (NEGATIVE); URINE COLOR YELLOW; URINE GLUCOSE (UA) NEGATIVE (NEGATIVE); URINE KETONE NEGATIVE (NEGATIVE); URINE NITRITE NEGATIVE (NEGATIVE); URINE PROTEIN NEGATIVE (NEGATIVE); URINE UROBILINOGEN NEGATIVE mg/dL (0.2-1.0)
[2017-01-17 17:20] LABS: CPK 10 IU/L (26-192); TROPONIN I < 0.02 ng/ml (0.00-0.05)
[2017-01-17 18:20] LABS: ALBUMIN 2.2 g/dl (3.4-5.0); ANION GAP 9 (8-16); BILIRUBIN,TOTAL 0.4 mg/dL (0.2-1.0); CALCIUM 8.5 mg/dL (8.5-10.1); CO2 28 mmol/L (21-32); GLUCOSE,RANDOM 174 mg/dL (74-106); SGOT/AST 9 U/L (15-37); SGPT/ALT 13 U/L (12-78); TOT PROT 6.1 g/dl (6.4-8.2)
[2017-01-17 18:23] LABS: ALK PHOS 61 U/L (45-117); CPK 12 IU/L (26-192); TROPONIN I < 0.02 ng/ml (0.00-0.05)
[2017-01-17 18:48] LABS: INR 2.57 (0.82-1.09)
--- NOTE | 2017-01-17 19:16 | HP ---
Admitting History and Physical - Primary Care Physician PCP: darnell Hansen - Admission Chief Complaint: I almost fell on the stairs History of Present Illness: 66 y/o unfortunate lady with h/o HTN, HLP , Systolic heart failure , recent colectomy/sutton procedure due to sigmoid colon perforation, Non insulin dependent DM who was d/c today from hospital , but returned due to general deconditioning . Pt was d/c home this afternoon, and while trying to climb stairs to her home, she could not continue due to fatigue. she did not fall or have any syncope but her family lowered her to the floor. ambulance was called and she returned to ER. at this time , she denies any CP, SOB, fever , Chills, Abd pain, palpitations or any CLARK/numbness/tingling /weakness. She reports having stool coming out from her rectum. This started 1.5 weeks after the surgery . History Source: Patient, Family Member Limitations to Obtaining History: No Limitations - Past Medical History DATA COORDINATOR: Yes: CVA (no residual) Cardiovascular: Yes: CHF (systolic), HTN (concern for L renal artery stenosis), Hyperlipdemia Pulmonary: Yes: COPD Heme/Onc: Yes: Cancer (Left breast) Psych: Yes: Depression (situational - related to colostomy and recent hospitalization) Endocrine: Yes: Diabetes Mellitus (NIDDM) Dermatology: Yes: Basal Cell (multiple sites removed) - Past Surgical History Past Surgical History: Yes: Breast Biopsy (2005 and 06/16), Cataract Removal ( bilateral), Colectomy (sigmoidectomy with colostomy (Dwaine's) for perforated sigmoid). No: Colonoscopy (never had) - Smoking History Smoking history: Former smoker Have you smoked in the past 12 months: Yes Aproximately how many cigarettes per day: 16 If you are a former smoker, when did you quit?: nov 2016 - Alcohol/Substance Use Hx Alcohol Use: No (social in past, not recently) History of Substance Use: reports: None - Social History ADL: Support Services History of Recent Travel: No Home Medications - Allergies Allergies/Adverse Reactions: Allergies Allergy/AdvReac Type Severity Reaction Status Date / Time No Known Allergies Allergy Verified 01/17/17 15:43 - Home Medications Home Medications: Ambulatory Orders [place] 2 3/4 Bags 1 bag NR ASDIR #30 bag 01/16/17 [place] 2 3/4 Flange 1 ea NR ASDIR #30 kit 01/16/17 Non-Adherent Bandage [Combine Abd] 1 each TP ASDIR #120 bandage 01/16/17 Skin Prep 1 pad NR ASDIR #120 pad 01/16/17 Albuterol Sulfate 0.5% [Ventolin 0.5% -] 1 neb IH TID PRN 01/17/17 Anastrozole [Arimidex -] 1 mg PO DAILY 01/17/17 Atorvastatin Calcium 20 mg PO HS 01/17/17 Bupropion HCl [Wellbutrin -] 75 mg PO BID 01/17/17 Calcium Carb, Citrate/Vit D3 [Calcium + D3 ER Tablet] 1 each PO BID 01/17/17 Carvedilol 25 mg PO BID 01/17/17 Cyanocobalamin [Vitamin B12 -] 1,000 mcg PO DAILY 01/17/17 Furosemide 20 mg PO DAILY 01/17/17 Insulin Aspart [Novolog] See Protocol SQ AC 01/17/17 Mometasone Furoate [Asmanex] 1 puff IH BID 01/17/17 Nicotine Patch [Nicoderm Patch -] 1 patch TD DAILY 01/17/17 Pantoprazole Sodium [Protonix] 40 mg PO DAILY 01/17/17 Spironolactone 25 mg PO DAILY 01/17/17 Valsartan 80 mg PO DAILY 01/17/17 Warfarin Sodium [Coumadin] 3 mg PO HS 01/17/17 Family Disease History - Family Disease History Family Disease History: CA: Sister (breast CA) Review of Systems - Review of Systems Constitutional: denies: Chills, Diaphoresis, Fever, Lethargy, Loss of Appetite, Malaise Eyes: denies: Blurred Vision, Double Vision, Eye Pain HENT: denies: Ear Pain, Epistaxis, Gingival Bleeding, Hearing Loss, Mouth Swelling Neck: denies: Decreased ROM, Lumps, Pain on Movement, Stiffness Cardiovascular: denies: Chest Pain, Edema, Palpitations, Shortness of Breath Respiratory: reports: Exercise Intolerance. denies: Cough, Hemoptysis, Orthopnea, SOB, SOB on Exertion, Wheezing Gastrointestinal: denies: Abdominal Pain, Bloating, Constipation, Diarrhea, Dysphagia, Melena, Nausea, Rectal Bleeding, Vomiting, Vomiting Blood Genitourinary: denies: Discharge, Dysuria, Flank Pain, Frequency, Pain Musculoskeletal: denies: Back Pain, Crepitus, Decreased ROM Integumentary: denies: Blister, Bruising, Change in Color Neurological: denies: Change in LOC, Change in Speech, Confusion, Dizziness, Headache, Parasthesia Endocrine: denies: Excessive Sweating, Flushing, Increased Hunger, Increased Thirst Hematology/Lymphatic: denies: Easily Bruised, Excessive Bleeding, Swollen Glands Psychiatric: denies: Depression, Hallucinations, Paranoia, Suicidal Physical Examination Vital Signs: Vital Signs Temperature 98.6 F 01/17/17 15:34 Pulse Rate 81 01/17/17 18:46 Respiratory Rate 18 01/17/17 18:46 Blood Pressure 129/66 01/17/17 18:46 O2 Sat by Pulse Oximetry (%) 98 01/17/17 18:46 Findings/Remarks: NAD , AAOX3 . HEENT: MMM, no LAP in neck. hazy white R sclera . round L pupil which is reactive to light . CV: RRR, 3/6 SM at [place] and [place]. 2/6 SM at base . No radiation Lungs : CTAB ABd: sfot, ND, obese, NT, 12-14 cm mid line surgical wound with clean margins and a packing in . no drainage seen. to the right of this wound there is a small 2 cm wound with packing , and no discharge . NL BS . Colostomy bag seen in LUQ. Ext: no edema , no erythema . no tenderness Labs: CBC, BMP 01/17/17 16:50 01/17/17 17:33 Imaging - Results Chest X-ray: Report Reviewed, Image Reviewed Assessment/Plan 66 y/o unfortunate lady with h/o HTN, HLP , Systolic heart failure , recent colectomy/sutton procedure due to sigmoid colon perforation, Non insulin dependent DM who was d/c today from hospital , but returned due to general deconditioning 1- Generalized physical deconditioning: due to recent hospitalization . No acute change in chronic medical conditions . No evidence of infection - PT eval 2- Recent sigmoid colon perforation s/p Sutton procedure: with an open surgical abd wall wound. No drainage . seen by Dr. Mitchell during last admission - Cont wound packing and care . - Dr. Mitchell consulted from ER. - Concern for a fistula as the pt cont to have stool from rectum. Surgical eval. 3- H/o HTN: recent dopler US with 50-60% stenosis in L renal artery. - COnt valsartan - cont coerg - further w/u with CTA and vascular eval as out pt . 4- h/o Systolic heart failure: recent diagnosis and exacerbation after her surgery in Nov. Now pt looks euvolemic despit the elevated BNP. - No need for Extra diuresis - cont her home dose lasix 20 mg po daily - cont coreg - recent Echo in Nov with Mod reduced EF and some valvular abn. No need t repeat 5- Normocytic anemia : NL HB at base line.. Anemia developed after surgery ( blood loss) - check iron studies - No need for transfusion 6- DM : before admission she was on Metfromin as out pt . was dc to rehab and then home on SSI - for now , cont SSI - check A1 c - At Dc , She might be placed on oral agents ( likel januvia ) ,unless A1c is > 10 . - avoid metformin at dc due to S CHF 7- Dispo : Observe . Visit type - Emergency Visit Emergency Visit: Yes Care time: The patient presented to the Emergency Department on the above date and was hospitalized for further evaluation of their emergent condition. - New Patient This patient is new to me today: Yes Date on this admission: 01/17/17 - Critical Care Critical Care patient: No
[2017-01-17] MEDS ORDERED: ALBUTEROL SO4 0.5 % INH SOLN 2.5 MG/0.5 ML VIAL.NEB. NEB PRN (19:50)
[2017-01-17] MEDS ORDERED: WARFARIN NA 3 MG TABLET PO ONE (19:52)
[2017-01-17 20:12] LABS: URINE LEUK ESTERASE Negative (NEGATIVE)
[2017-01-17] MEDS: CARVEDILOL 25 MG TABLET (FP) PO SCH (21:43)
[2017-01-17] MEDS: buPROPion HCL 75 MG TABLET PO SCH (21:43)
[2017-01-17] MEDS: ATORVASTATIN CA 20 MG TABLET (FP) PO SCH (21:43)
[2017-01-17] MEDS: ZOLPIDEM TARTRATE 5 MG TABLET PO PRN (22:20)
[2017-01-18] MEDS: INSULIN SLIDING SCALE (NOVOLOG) 1 VIAL SQ SCH ×3 (06:38→17:10)
[2017-01-18 08:05] LABS: BASOPHIL 0.4 % (0-2.0); EOSINOPHIL 2.1 % (0-4.5); MCH 28.9 pg (25.7-33.7); MCHC 31.7 g/dl (32.0-36.0); MEAN CELL VOLUME 91.1 fl (80-96); MEAN PLT VOLUME 7.3 fl (7.5-11.1); NEUTROPHILS 70.4 % (42.8-82.8); PLATELET COUNT 371 K/MM3 (134-434); RDW 15.2 % (11.6-15.6); WHITE BLOOD COUNT 9.1 K/mm3 (4.0-10.0)
[2017-01-18 08:27] LABS: MAGNESIUM 1.5 mg/dL (1.8-2.4); PHOSPHOROUS 3.5 mg/dL (2.5-4.9)
--- NOTE | 2017-01-18 08:33 | PN ---
Physical Exam: SUBJECTIVE: Patient seen and examined. Sad and frustrated about not being able to maneuver stairs yesterday to go home. Understands she needs short-term rehab. Per nursing staff, no episodes of stool per rectum overnight or so far today. OBJECTIVE: Vital Signs Period Temp Pulse Resp BP Sys/Holt Pulse Ox Last 24 Hr 98.2 F-99.3 F 81-100 18-19 120-133/49-66 94-98 GENERAL: The patient is awake, alert, and fully oriented, in no acute distress. HEAD: Normal with no signs of trauma. EYES: Hazy white sclera LUNGS: Breath sounds equal, clear to auscultation bilaterally, no wheezes, no crackles, no accessory muscle use. HEART: Regular rate and rhythm, S1, S2, + murmur ABDOMEN: Soft, nontender, large surgical dressing c/d/i; smaller dressing with strikethrough; colostomy bag with liquid stool and gas EXTREMITIES: 2+ pulses, warm, well-perfused, no edema. NEUROLOGICAL: Cranial nerves II through XII grossly intact. Normal speech, gait not observed. Laboratory Results - last 24 hr 01/17/17 01/17/17 01/17/17 16:30 16:30 16:50 WBC RBC Hgb Hct MCV MCH MCHC RDW Plt Count MPV Neutrophils % Lymphocytes % Monocytes % Eosinophils % Basophils % PT with INR INR Sodium Potassium Chloride Carbon Dioxide Anion Gap BUN Creatinine Creat Clearance w eGFR POC Glucometer Random Glucose Lactic Acid 1.4 Calcium Phosphorus Magnesium Ferritin Total Bilirubin AST ALT Alkaline Phosphatase Creatine Kinase 10 L Troponin I < 0.02 B-Natriuretic Peptide 69757.10 H Total Protein Albumin Urine Color Yellow Urine Appearance Slcloudy Urine pH 5.0 Ur Specific [place] 1.017 Urine Protein Negative Urine Glucose (UA) Negative Urine Ketones Negative Urine Blood Negative Urine Nitrite Negative Urine Bilirubin Negative Urine Urobilinogen Negative Ur Leukocyte Esterase Negative 01/17/17 01/17/17 01/17/17 16:50 16:50 17:33 WBC 10.3 H D RBC 3.39 L Hgb 10.0 L Hct 31.1 L MCV 91.7 MCH 29.6 MCHC 32.3 RDW 15.4 Plt Count 402 MPV 7.4 L Neutrophils % 81.6 Lymphocytes % 9.4 Monocytes % 7.6 Eosinophils % 1.0 Basophils % 0.4 PT with INR INR Sodium Cancelled 134 L Potassium Cancelled 4.8 Chloride Cancelled 97 L Carbon Dioxide Cancelled 28 Anion Gap Cancelled 9 BUN Cancelled 25 H Creatinine Cancelled 1.0 D Creat Clearance w eGFR Cancelled 55.14 POC Glucometer Random Glucose Cancelled 174 H D Lactic Acid Calcium Cancelled 8.5 Phosphorus Magnesium Ferritin Total Bilirubin Cancelled 0.4 D AST Cancelled 9 L D ALT Cancelled 13 D Alkaline Phosphatase Cancelled 61 Creatine Kinase 12 L Troponin I < 0.02 B-Natriuretic Peptide 9848.47 H Total Protein Cancelled 6.1 L Albumin Cancelled 2.2 L Urine Color Urine Appearance Urine pH Ur Specific [place] Urine Protein Urine Glucose (UA) Urine Ketones Urine Blood Urine Nitrite Urine Bilirubin Urine Urobilinogen Ur Leukocyte Esterase 01/17/17 01/17/17 01/18/17 18:22 21:20 06:15 WBC 9.1 RBC 3.14 L Hgb 9.1 L Hct 28.6 L MCV 91.1 MCH 28.9 MCHC 31.7 L RDW 15.2 Plt Count 371 MPV 7.3 L Neutrophils % 70.4 Lymphocytes % 16.4 D Monocytes % 10.7 H Eosinophils % 2.1 D Basophils % 0.4 PT with INR 29.00 H INR 2.57 H Sodium Potassium Chloride Carbon Dioxide Anion Gap BUN Creatinine Creat Clearance w eGFR POC Glucometer Random Glucose Lactic Acid Calcium Phosphorus Magnesium Ferritin 824.748 H Total Bilirubin AST ALT Alkaline Phosphatase Creatine Kinase Troponin I B-Natriuretic Peptide Total Protein Albumin Urine Color Urine Appearance Urine pH Ur Specific [place] Urine Protein Urine Glucose (UA) Urine Ketones Urine Blood Urine Nitrite Urine Bilirubin Urine Urobilinogen Ur Leukocyte Esterase 01/18/17 01/18/17 06:15 06:34 WBC RBC Hgb Hct MCV MCH MCHC RDW Plt Count MPV Neutrophils % Lymphocytes % Monocytes % Eosinophils % Basophils % PT with INR INR Sodium Potassium Chloride Carbon Dioxide Anion Gap BUN Creatinine Creat Clearance w eGFR POC Glucometer 124 Random Glucose Lactic Acid Calcium Phosphorus 3.5 Magnesium 1.5 L Ferritin Total Bilirubin AST ALT Alkaline Phosphatase Creatine Kinase Troponin I B-Natriuretic Peptide Total Protein Albumin Urine Color Urine Appearance Urine pH Ur Specific [place] Urine Protein Urine Glucose (UA) Urine Ketones Urine Blood Urine Nitrite Urine Bilirubin Urine Urobilinogen Ur Leukocyte Esterase Active Medications Generic Name Dose Route Start Last Admin Trade Name Freq PRN Reason Stop Dose Admin Albuterol Sulfate 1 amp 01/17/17 19:50 Ventolin 0.5% - NEB Q8H PRN wheezing Anastrozole 1 mg 01/18/17 10:00 Arimidex - PO DAILY REPLACED BY [facility] Atorvastatin Calcium 20 mg 01/17/17 22:00 01/17/17 21:43 Lipitor - PO 20 mg HS [place] Administration Bupropion HCl 75 mg 01/17/17 22:00 01/17/17 21:43 Wellbutrin - PO 75 mg BID [place] Administration Carvedilol 25 mg 01/17/17 22:00 01/17/17 21:43 Coreg - PO 25 mg BID REPLACED BY [facility] Administration Cyanocobalamin 1,000 mcg 01/18/17 10:00 Vitamin B12 - PO DAILY REPLACED BY [facility] Furosemide 20 mg 01/18/17 10:00 Lasix - PO DAILY REPLACED BY [facility] Insulin Aspart 1 vial 01/18/17 07:00 01/18/17 06:38 Novolog Vial Sliding Scale - SQ Not Given TIDAC REPLACED BY [facility] Protocol Nicotine 7 mg 01/18/17 10:00 Nicoderm Patch - TD DAILY REPLACED BY [facility] Pantoprazole Sodium 40 mg 01/18/17 10:00 Protonix - PO DAILY REPLACED BY [facility] Spironolactone 25 mg 01/18/17 10:00 Aldactone - PO DAILY REPLACED BY [facility] Valsartan 80 mg 01/18/17 10:00 Diovan - PO DAILY REPLACED BY [facility] Zolpidem Tartrate 5 mg 01/17/17 22:04 01/17/17 22:20 Ambien - PO 5 mg HS PRN Administration INSOMNIA ASSESSMENT/PLAN 66 year-old female with a PMH significant for HTN, systolic heart failure, h/o CVA with left MCA thrombus on coumadin, COPD, NIDDM, anemia, left breast cancer , legal blindness, and depression. On 12/10/16, underwent sigmoid colon resection, mobilization of splenic fexure, and colostomy/Dwaine's procedure for a perforated sigmoid colon. On discharge went to [facility]. On 01/15/17 came back to [facility] and placed on observation for infection (ruled out) and wound care. Discharged to home on 01/17 and returned within several hours due to inability to climb stairs to her apartment. Generalized physical deconditioning --PT evaluation Sigmoid colon perforation s/p colostomy/Dwaine's procedure --has been passing stool through rectum for last 1.5 weeks per patient; yesterday ANA MARIA Holley observed several episodes of stool from rectum --concern for fistula --surgical evaluation pending --continue wound care Hypertension --BP presently controlled --continue valsartan, carvedilol Systolic heart failure, chronic --euvolemic --continue lasix and spironolactone Normocytic anemia --h/h stable --iron studies pending NIDDM --Novolog sliding scale coverage Hypomagnesemia --repleted F/E/N Fluids: PO intake adequate Electrolytes: replete as indicated Nutrition: low sodium, diabetic DVT prophylaxis: on coumadin, INR therapeutic Physical therapy evaluation Dispo: continues to require observation. Dr. Landen Shay is PCP. Discussed case with him this morning. If patient remains on observation and is deemed ready to go to SNF within a day or so, the hospitalist service will continue care. If surgical workup shows need for further intervention Dr. Shay will resume care. Full code. Visit type - Emergency Visit Emergency Visit: Yes ED Registration Date: 01/17/17 Care time: The patient presented to the Emergency Department on the above date and was hospitalized for further evaluation of their emergent condition. - New Patient This patient is new to me today: Yes Date on this admission: 01/18/17 - Critical Care Critical Care patient: No
[2017-01-18 08:38] LABS: INR 2.46 (0.82-1.09); PROTHROMBIN TIME (PATIENT) 27.8 SEC (9.98-11.88)
[2017-01-18] MEDS ORDERED: MAGNESIUM SULF 50% (8.12 MEQ/2 ML-1 GM VIAL) IVPB ONE (09:49)
[2017-01-18] MEDS ORDERED: WARFARIN NA 2 MG TABLET (UD) PO SCH (10:00)
[2017-01-18] MEDS ORDERED: SPIRONOLACTONE 25 MG TABLET (FP) PO SCH (10:00)
[2017-01-18] MEDS ORDERED: PT OWN MED DRAWER 7, Y5N ONE ×4 (11:14→18:01)
[2017-01-18] MEDS: CYANOCOBALAMIN 1,000 MCG TABLET (FP) PO SCH (11:20)
[2017-01-18] MEDS: PANTOPRAZOLE 40 MG TABLET (FP) PO SCH (11:20)
[2017-01-18] MEDS: NICOTINE 7 MG/24 HOURS TOPICAL PATCH TD SCH ×2 (11:22→12:00)
[2017-01-18] MEDS: VALSARTAN 80 MG TABLET (UD) PO SCH (11:22)
[2017-01-18] MEDS: CARVEDILOL 25 MG TABLET (FP) PO SCH ×2 (11:22→21:10)
[2017-01-18] MEDS: FUROSEMIDE 20 MG TABLET (FP) PO SCH (11:22)
[2017-01-18] MEDS: buPROPion HCL 75 MG TABLET PO SCH ×2 (11:23→21:12)
--- NOTE | 2017-01-18 14:44 | CONSULT ---
Consult Consult Specialty:: General Surgery Referred by:: Rosalba Valles Reason for Consultation:: pt known to me with abdominal wounds, stool from rectum s/p Dwaine's - History of Present Illness Chief Complaint: I'm still having bowel movements History of Present Illness: 66yo obese F with multiple medical problems, s/p Dwaine's procedure 12/10/16 for perforated sigmoid colon, with midline abdominal wounds left open to heal by secondary intention, complicated by fascial dehiscence and reopening of RLQ drain tract. She had gone to rehab from the hospital originally on 12/29, and was doing well with PT, walking ~100 ft and per pt, able to navigate 5 stairs. She was to be d/c home yesterday from [facility], but was sent back to hospital with one low BP reading and concerns about her wounds for possible infection. Spironolactone was held, she walked with PT, and was found to be ineligible for home O2 with good sats on room air. Hyperkalemia has slowly been decreasing, as well as BUN/Cr, toward normal. She had a supratherapeutic INR, which is now in therapeutic range (2.46 this am), and was to resume 3mg coumadin daily tonight, but had 1.5mg last night and 2mg this morning. Wounds were found to look good, with granulation and no signs of infection, and dressing changes have been continued. Her colostomy is functioning, but she reports still having intermittent evacuations from her rectum, which per nursing had been thin, liquidy or mucoid, and green. None have occurred in the last 24 hours. She has no nausea or fevers and is tolerating a diabetic diet. She was d/c home yesterday with plans for home health/VNS for wound and ostomy care, but she was unable to proceed past the first two steps into her home (5 up to get in, 6 down to the single-level basement where she lives with her ). She was brought back to the hospital by ambulance, and will need to return to rehab before she is able to go home again. Labs show continued improvement. Surgery was consulted to evaluate the stool per rectum and continue wound care guidance. Her ostomy bag was changed in the ER, as was her midline dressing. - History Source History Provided By: Patient, Medical Record Limitations to Obtaining History: No Limitations - Past Medical History BUTT TRIMMER: Yes: CVA (no residual) Cardio/Vascular: Yes: CHF (systolic), HTN (concern for L renal artery stenosis) , Hyperlipdemia Pulmonary: Yes: COPD Gastrointestinal: Yes: Other (obesity) Renal/: Yes: Other (L renal artery stenosis) Reproductive: Yes: Postmenopausal Heme/Onc: Yes: Cancer (L breast, on arimidex) Psych: Yes: Depression (situational - related to colostomy and recent hospitalization) Musculoskeletal: Yes: Osteoarthritis Endocrine: Yes: Diabetes Mellitus (NIDDM) Dermatology: Yes: Basal Cell (multiple sites removed) Additional Medical History: legally blind, 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 No: Colonoscopy (never had) - Alcohol/Substance Use Hx Alcohol Use: No (social in past, not recently) History of Substance Use: reports: None - Smoking History Smoking history: Former smoker Have you smoked in the past 12 months: Yes Aproximately how many cigarettes per day: 16 If you are a former smoker, when did you quit?: nov 2016 - Social History Usual Living Arrangement: [facility] (last several weeks since hospital d/c) ADL: Support Services History of Recent Travel: No Home Medications - Allergies Allergies/Adverse Reactions: Allergies Allergy/AdvReac Type Severity Reaction Status Date / Time No Known Allergies Allergy Verified 01/17/17 15:43 - Home Medications Home Medications: Ambulatory Orders [place] 2 3/4 Bags 1 bag NR ASDIR #30 bag 01/16/17 [place] 2 3/4 Flange 1 ea NR ASDIR #30 kit 01/16/17 Non-Adherent Bandage [Combine Abd] 1 each TP ASDIR #120 bandage 01/16/17 Skin Prep 1 pad NR ASDIR #120 pad 01/16/17 Albuterol Sulfate 0.5% [Ventolin 0.5% -] 1 neb IH TID PRN 01/17/17 Anastrozole [Arimidex -] 1 mg PO DAILY 01/17/17 Atorvastatin Calcium 20 mg PO HS 01/17/17 Bupropion HCl [Wellbutrin -] 75 mg PO BID 01/17/17 Calcium Carb, Citrate/Vit D3 [Calcium + D3 ER Tablet] 1 each PO BID 01/17/17 Carvedilol 25 mg PO BID 01/17/17 Cyanocobalamin [Vitamin B12 -] 1,000 mcg PO DAILY 01/17/17 Furosemide 20 mg PO DAILY 01/17/17 Insulin Aspart [Novolog] See Protocol SQ AC 01/17/17 Mometasone Furoate [Asmanex] 1 puff IH BID 01/17/17 Nicotine Patch [Nicoderm Patch -] 1 patch TD DAILY 01/17/17 Pantoprazole Sodium [Protonix] 40 mg PO DAILY 01/17/17 Valsartan 80 mg PO DAILY 01/17/17 Warfarin Sodium [Coumadin] 3 mg PO HS 01/17/17 Family Disease History - Family Disease History Family Disease History: CA: Sister (breast CA) Review of Systems - Review of Systems Constitutional: reports: Loss of Appetite (does not have much appetite for hospital/NH food), Weakness. denies: Chills, Fever Eyes: reports: Other (blind (completely on right, legally on left)). denies: Recent Change in Vision HENT: denies: Difficult Swallowing, Throat Pain Neck: denies: Swollen Glands, Tenderness Cardiovascular: denies: Chest Pain, Palpitations Respiratory: reports: SOB on Exertion. denies: Cough, Wheezing Gastrointestinal: reports: Other (+ stool from rectum). denies: Abdominal Pain , Constipation, Diarrhea, Nausea, Vomiting Genitourinary: reports: Incontinence (when cannot get help to bathroom). denies : Burning, Dysuria Musculoskeletal: denies: Joint Pain, Joint Swelling Integumentary: reports: Wound (abdominal midline and RLQ), Other (skin tear R forearm with mepilex (POA)). denies: Rash Neurological: reports: Unsteady Gait, Weakness. denies: Dizziness, Headache Psychiatric: reports: Depression (related to events of last 1.5 months). denies : Suicidal Physical Exam Vital Signs: Vital Signs Temperature 98.0 F 01/18/17 08:36 Pulse Rate 89 01/18/17 08:36 Respiratory Rate 18 01/18/17 08:36 Blood Pressure 130/54 01/18/17 08:36 O2 Sat by Pulse Oximetry (%) 95 01/18/17 06:00 Constitutional: Yes: No Distress, Calm, Obese Eyes: Yes: Conjunctiva Clear (left eye), EOM Intact (left eye), Other (right eye clouded/blind) HENT: Yes: Atraumatic, Normocephalic Neck: Yes: Supple, Trachea Midline Cardiovascular: Yes: Regular Rate and Rhythm, Murmur Respiratory: Yes: Regular, CTA Bilaterally. No: On Nasal O2, SOB, Wheezes Gastrointestinal: Yes: Normal Bowel Sounds, Soft, Abdomen, Obese, Tenderness ( mostly at RLQ drain site with dressing change, mild incisional otherwise), Other (colostomy p/p/p soft brown stool, almost half bag full + gas; RLQ drain site with small blood staining on dressing, but thin purulent fluid coming up from base when dressing removed - not expressible from anywhere visible, 1.5 x 0.4 x 3cm deep wound, at 10:00, about detention down the wall, there is a very small tunnel to 6cm identified with cotton-tipped applicator) ...Rectal Exam: Yes: Sphincter Tone Normal, Other (tiny spot of yellow-green fluid on fingertip, no formed stool in vault, few skin tags externally) Renal/: Yes: Incontinence (wearing diaper). No: CVA Tenderness - Left, CVA Tenderness - Right Musculoskeletal: No: Joint Stiffness, Joint Swelling Extremities: No: Cool, Cyanosis Edema: No Integumentary: Yes: Incision (midline, RLQ), Skin Tear (R forearm with mepilex) . No: Jaundice, Rash Wound/Incision: Yes: Dressing Removed (RLQ drain site repacked with 1/4" plain packing in 10:00 tunnel and in wound, covered with gauze and tape; midline wounds repacked with saline-dampened Kerlix gauze, covered with gauze, folded ABD, tape. Colostomy appliance also changed, as the hole was cut out larger than the stomal skin edge, replaced after skin prep all around, moved as far from wound edge as possible, bag replaced - peristomal skin irritation is healed ), Draining (RLQ, serosang +/- thin purulent fluid? wells up at times, but source not clear), Unapproximated (midline, RLQ) Neurological: Yes: Alert, Oriented Psychiatric: Yes: Alert, Oriented, Other (depressed, crying occasionally) Labs: CBC, BMP 01/18/17 06:15 01/17/17 17:33 CMP Sodium 134 mmol/L (136-145) L 01/17/17 17:33 Potassium 4.8 mmol/L (3.5-5.1) 01/17/17 17:33 Chloride 97 mmol/L (98-107) L 01/17/17 17:33 Carbon Dioxide 28 mmol/L (21-32) 01/17/17 17:33 Anion Gap 9 (8-16) 01/17/17 17:33 BUN 25 mg/dL (7-18) H 01/17/17 17:33 Creatinine 1.0 mg/dL (0.55-1.02) D 01/17/17 17:33 Creat Clearance w eGFR 55.14 (>60) 01/17/17 17:33 POC Glucometer 186 UNITS (80-120) 01/18/17 11:50 Random Glucose 174 mg/dL (74-106) H D 01/17/17 17:33 Hemoglobin A1c % 5.7 % (4.8-6.0) 01/17/17 19:56 Lactic Acid 1.4 mmol/L (0.4-2.0) 01/17/17 16:30 Calcium 8.5 mg/dL (8.5-10.1) 01/17/17 17:33 Phosphorus 3.5 mg/dL (2.5-4.9) 01/18/17 06:15 Magnesium 1.5 mg/dL (1.8-2.4) L 01/18/17 06:15 Ferritin 824.748 ng/ml (6.9-282.5) H 01/17/17 21:20 Total Bilirubin 0.4 mg/dL (0.2-1.0) D 01/17/17 17:33 AST 9 U/L (15-37) L D 01/17/17 17:33 ALT 13 U/L (12-78) D 01/17/17 17:33 Alkaline Phosphatase 61 U/L (45-117) 01/17/17 17:33 Creatine Kinase 12 IU/L (26-192) L 01/17/17 17:33 Troponin I < 0.02 ng/ml (0.00-0.05) 01/17/17 17:33 B-Natriuretic Peptide 9848.47 pg/ml (5-125) H 01/17/17 17:33 Total Protein 6.1 g/dl (6.4-8.2) L 01/17/17 17:33 Albumin 2.2 g/dl (3.4-5.0) L 01/17/17 17:33 INR, PTT INR 2.46 (0.82-1.09) H 01/18/17 06:15 Problem List - Problems (1) Open wound of abdominal wall, anterior, complicated Assessment/Plan: Wounds clean, dressings changed, continue bid saline-dampened Kerlix gauze packing of midline wounds. RLQ drain site to be packed by MD with 1/4" plain ribbon gauze. Will check CT to ensure no underlying abscess or collection in need of further drainage given intermittent purulent thin fluid in wound. Unclear if coming from tissues above or below fascia, or intraperitoneal, as tract was originally from drain to pelvis and LLQ. Code(s): S31.109A - UNSP OPN WND ABD WALL, UNSP Q W/O PENET PERIT CAV, INIT Qualifiers: Encounter type: subsequent encounter Qualified Code(s): S31.109D - Unspecified open wound of abdominal wall, unspecified quadrant without penetration into peritoneal cavity, subsequent encounter (2) Disruption of internal operation (surgical) wound, not elsewhere classified , subsequent encounter Assessment/Plan: wound bases granulating well, continue dressing changes. Code(s): T81.32XD - DISRUPTION OF INTERNAL OPERATION (SURGICAL) WOUND, NEC, SUBS (3) Colostomy in place Assessment/Plan: colostomy appliance changed - base hole needs to be cut to fit skin edge at stoma exactly and no bigger, against one edge, not centered. Skin prep peristomally and base pressed down against skin from stoma/skin edge outward to ensure good seal. Only change when leaking. Pt still having some stool evacuation per rectum after Dwaine's procedure. Will check CT abd/pelvis with PO/IV contrast to evaluate for presence of fistula to rectal segment. Code(s): Z93.3 - COLOSTOMY STATUS (4) Protein calorie malnutrition Assessment/Plan: recommend strawberry Glucerna supplements with each meal - pt does not eat well in hospital. Code(s): E46 - UNSPECIFIED PROTEIN-CALORIE MALNUTRITION Qualifiers: Protein-calorie malnutrition severity: unspecified severity Qualified Code( s): E46 - Unspecified protein-calorie malnutrition (5) Generalized weakness Assessment/Plan: PT to continue and work with patient on stairs as well as walking. She will need to be able to navigate home stairs daily on discharge to keep up conditioning and leave home for appointments. Code(s): R53.1 - WEAKNESS (6) Muscular deconditioning Code(s): R29.898 - OTH SYMPTOMS AND SIGNS INVOLVING THE MUSCULOSKELETAL SYSTEM (7) Anemia Code(s): D64.9 - ANEMIA, UNSPECIFIED Qualifiers: Anemia type: unspecified type Qualified Code(s): D64.9 - Anemia, unspecified (8) H/O: CVA (cerebrovascular accident) Code(s): Z86.73 - PRSNL HX OF TIA (TIA), AND CEREB INFRC W/O RESID DEFICITS (9) Anticoagulant long-term use Assessment/Plan: INR therapeutic this am. resuming coumadin. got tonights dose this morning - would hold tonight and resume tomorrow night pending am result. Code(s): Z79.01 - USP (CURRENT) USE OF 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 (10) COPD without exacerbation Assessment/Plan: would resume asmanex or flovent bid Code(s): J44.9 - CHRONIC OBSTRUCTIVE PULMONARY DISEASE, UNSPECIFIED (11) Cancer of left breast Assessment/Plan: on anastrozole Code(s): C50.912 - MALIGNANT NEOPLASM OF UNSPECIFIED SITE OF LEFT FEMALE BREAST Qualifiers: Breast location: upper outer quadrant of breast Estrogen receptor status: positive Patient sex: female Qualified Code(s): C50.412 - Malignant neoplasm of upper-outer quadrant of left female breast (12) Depression Assessment/Plan: ok to increase wellbutrin to 150mg bid Code(s): F32.9 - MAJOR DEPRESSIVE DISORDER, SINGLE EPISODE, UNSPECIFIED Qualifiers: Depression Type: reactive depression Qualified Code(s): F32.9 - Major depressive disorder, single episode, unspecified (13) Diabetes mellitus type 2, noninsulin dependent Assessment/Plan: not requiring medication at this time, on diabetic diet Code(s): E11.9 - TYPE 2 DIABETES MELLITUS WITHOUT COMPLICATIONS (14) Hypertension Assessment/Plan: on coreg and diovan, on lasix spironolactone was discontinued few days ago with electrolyte abnormalities, not to be resumed - d/c'd Code(s): I10 - ESSENTIAL (PRIMARY) HYPERTENSION Qualifiers: Hypertension type: essential hypertension Qualified Code(s): I10 - Essential (primary) hypertension (15) CHF (congestive heart failure) Assessment/Plan: on coreg and lasix, no acute exacerbation Code(s): I50.9 - HEART FAILURE, UNSPECIFIED Qualifiers: Congestive heart failure type: systolic Congestive heart failure chronicity : chronic Qualified Code(s): I50.22 - Chronic systolic (congestive) heart failure
[2017-01-18] MEDS: ANASTROZOLE 1 MG TABLET PO SCH (17:08)
[2017-01-18] MEDS: MOMETASONE FUROATE 110 MCG/IH INHALER IH SCH ×2 (17:10→21:11)
[2017-01-18] MEDS: ATORVASTATIN CA 20 MG TABLET (FP) PO SCH (21:10)
[2017-01-18] MEDS: ZOLPIDEM TARTRATE 5 MG TABLET PO PRN (21:15)
[2017-01-19] MEDS: INSULIN SLIDING SCALE (NOVOLOG) 1 VIAL SQ SCH ×3 (06:02→17:04)
[2017-01-19 08:08] LABS: BASOPHIL 0.6 % (0-2.0); EOSINOPHIL 2.4 % (0-4.5); MCH 29.8 pg (25.7-33.7); MCHC 32.6 g/dl (32.0-36.0); MEAN CELL VOLUME 91.2 fl (80-96); MEAN PLT VOLUME 7.5 fl (7.5-11.1); NEUTROPHILS 68.5 % (42.8-82.8); PLATELET COUNT 378 K/MM3 (134-434); RDW 15.8 % (11.6-15.6); WHITE BLOOD COUNT 8.4 K/mm3 (4.0-10.0)
[2017-01-19 08:36] LABS: ALBUMIN 2.1 g/dl (3.4-5.0); ALK PHOS 61 U/L (45-117); ANION GAP 10 (8-16); BILIRUBIN,TOTAL 0.4 mg/dL (0.2-1.0); CALCIUM 8.2 mg/dL (8.5-10.1); CO2 26 mmol/L (21-32); GLUCOSE,RANDOM 112 mg/dL (74-106); PHOSPHOROUS 3.9 mg/dL (2.5-4.9); SGOT/AST 10 U/L (15-37); SGPT/ALT 12 U/L (12-78); TOT PROT 5.8 g/dl (6.4-8.2)
[2017-01-19 08:49] LABS: INR 2.27 (0.82-1.09); PROTHROMBIN TIME (PATIENT) 25.6 SEC (9.98-11.88)
--- NOTE | 2017-01-19 09:52 | EKG ---
Test Reason : Blood Pressure : / mmHG Vent. Rate : 097 BPM Atrial Rate : 097 BPM P-R Int : 154 ms QRS Dur : 092 ms QT Int : 374 ms P-R-T Axes : 079 059 086 degrees QTc Int : 474 ms SINUS RHYTHM WITH OCCASIONAL PREMATURE VENTRICULAR COMPLEXES NONSPECIFIC ST ABNORMALITY ABNORMAL ECG WHEN COMPARED WITH ECG OF 15-JAN-2017 14:48, PREMATURE VENTRICULAR COMPLEXES ARE NOW PRESENT Confirmed by ADWOA GOMEZ, SOTERO ([id number]) on 01/19/2017 9:51:43 AM Referred By: Confirmed By:SOTERO ORONA MD
[2017-01-19 10:09] LABS: SERUM IRON 24 ug/dL (27-139); TOTAL IRON BINDING CAPACITY 140 ug/dL (250-450); UIBC 116 ug/dL (118-369)
[2017-01-19] MEDS ORDERED: PT OWN MED DRAWER 7, Y5N ONE (10:42)
[2017-01-19] MEDS: VALSARTAN 80 MG TABLET (UD) PO SCH (11:00)
[2017-01-19] MEDS: buPROPion HCL 75 MG TABLET PO SCH ×2 (11:00→21:11)
[2017-01-19] MEDS: NICOTINE 7 MG/24 HOURS TOPICAL PATCH TD SCH (11:00)
[2017-01-19] MEDS: FUROSEMIDE 20 MG TABLET (FP) PO SCH (11:00)
[2017-01-19] MEDS: CYANOCOBALAMIN 1,000 MCG TABLET (FP) PO SCH (11:00)
[2017-01-19] MEDS: PANTOPRAZOLE 40 MG TABLET (FP) PO SCH (11:00)
[2017-01-19] MEDS: CARVEDILOL 25 MG TABLET (FP) PO SCH ×2 (11:00→21:11)
[2017-01-19] MEDS: ANASTROZOLE 1 MG TABLET PO SCH (11:00)
[2017-01-19] MEDS: MOMETASONE FUROATE 110 MCG/IH INHALER IH SCH ×2 (11:01→21:11)
--- NOTE | 2017-01-19 15:24 | PN ---
Progress Note, Physician Chief Complaint: weakness and wound concerns History of Present Illness: No overnight events. No stool per rectum today. Had CT this am. No specific complaints, except urinating a lot after contrast, and with more liquidy stool in bag. No fevers. Labs ok. - Current Medication List Current Medications: Active Medications Albuterol Sulfate (Ventolin 0.5% -) 1 amp NEB Q8H PRN PRN Reason: wheezing Anastrozole (Arimidex -) 1 mg PO DAILY [facility] Last Admin: 01/19/17 11:00 Dose: 1 mg Atorvastatin Calcium (Lipitor -) 20 mg PO HS [facility] Last Admin: 01/18/17 21:10 Dose: 20 mg Bupropion HCl (Wellbutrin -) 150 mg PO BID [facility] Last Admin: 01/19/17 11:00 Dose: 150 mg Carvedilol (Coreg -) 25 mg PO BID [facility] Last Admin: 01/19/17 11:00 Dose: 25 mg Cyanocobalamin (Vitamin B12 -) 1,000 mcg PO DAILY [facility] Last Admin: 01/19/17 11:00 Dose: 1,000 mcg Furosemide (Lasix -) 20 mg PO DAILY [facility] Last Admin: 01/19/17 11:00 Dose: 20 mg Insulin Aspart (Novolog Vial Sliding Scale -) 1 vial SQ TIDAC CASPER PRN Reason: Protocol Last Admin: 01/19/17 12:06 Dose: Not Given Mometasone Furoate (Asmanex 110mcg -) 1 puff IH BID [facility] Last Admin: 01/19/17 11:01 Dose: 1 puff Nicotine (Nicoderm Patch -) 7 mg TD DAILY [facility] Last Admin: 01/19/17 11:00 Dose: Not Given Pantoprazole Sodium (Protonix -) 40 mg PO DAILY [facility] Last Admin: 01/19/17 11:00 Dose: 40 mg Sodium Hypochlorite (Dakin's Solution 0.25% (Half-Strength) -) 1 applic TP DAILY [facility] Valsartan (Diovan -) 80 mg PO DAILY [facility] Last Admin: 01/19/17 11:00 Dose: 80 mg Warfarin Sodium (Coumadin -) 2 mg PO DAILY@1800 [facility] Zolpidem Tartrate (Ambien -) 5 mg PO HS PRN PRN Reason: INSOMNIA Last Admin: 01/18/17 21:15 Dose: 5 mg - Objective Vital Signs: Vital Signs Temperature 99.0 F 01/19/17 14:11 Pulse Rate 84 01/19/17 14:11 Respiratory Rate 20 01/19/17 14:11 Blood Pressure 113/44 01/19/17 14:11 O2 Sat by Pulse Oximetry (%) 95 01/19/17 13:34 Vital Signs Period Temp Pulse Resp BP Sys/Holt Pulse Ox Last 24 Hr 98.1 F-99.0 F 84-93 18-20 113-141/44-57 94-95 Constitutional: Yes: No Distress, Calm, Obese Gastrointestinal: Yes: Soft, Abdomen, Obese, Tenderness (mild peristomal at left and slightly superior to stoma), Other (colostomy p/p/p soft brownish stool , thin/liquidy; ostomy bag with medial leak - changed for new base and bag with skin prep, peristomal skin clean). No: Tenderness, Rebound ...Rectal Exam: Yes: Deferred Genitourinary: Yes: Incontinence. No: Hematuria Extremities: No: Cool, Cyanosis Edema: No Wound/Incision: Yes: Dressing Dry and Intact (midline; RLQ with some staining), Dressing Removed (RLQ drain site packing removed with serosang drainage, some maloney on packing, no fluid present in wound; midline dressings removed with some green and odor from superior one at left edge (Pseudomonas)), Unapproximated ( midline, RLQ) Neurological: Yes: Alert, Oriented Psychiatric: Yes: Alert, Oriented, Other (depressed) Labs: CBC, BMP 01/19/17 06:42 01/19/17 06:42 INR, PTT INR 2.27 (0.82-1.09) H 01/19/17 06:42 CMP Sodium 134 mmol/L (136-145) L 01/19/17 06:42 Potassium 4.8 mmol/L (3.5-5.1) 01/19/17 06:42 Chloride 98 mmol/L (98-107) 01/19/17 06:42 Carbon Dioxide 26 mmol/L (21-32) 01/19/17 06:42 Anion Gap 10 (8-16) 01/19/17 06:42 BUN 22 mg/dL (7-18) H 01/19/17 06:42 Creatinine 1.0 mg/dL (0.55-1.02) 01/19/17 06:42 Creat Clearance w eGFR 55.14 (>60) 01/19/17 06:42 POC Glucometer 154 UNITS (80-120) 01/19/17 11:12 Random Glucose 112 mg/dL (74-106) H D 01/19/17 06:42 Hemoglobin A1c % 5.7 % (4.8-6.0) 01/17/17 19:56 Lactic Acid 1.4 mmol/L (0.4-2.0) 01/17/17 16:30 Calcium 8.2 mg/dL (8.5-10.1) L 01/19/17 06:42 Phosphorus 3.9 mg/dL (2.5-4.9) 01/19/17 06:42 Magnesium 2.0 mg/dL (1.8-2.4) D 01/19/17 06:42 Iron 24 ug/dL (27-139) L 01/17/17 21:20 TIBC 140 ug/dL (250-450) L 01/17/17 21:20 Iron Saturation 17 % (15-55) 01/17/17 21:20 Ferritin 824.748 ng/ml (6.9-282.5) H 01/17/17 21:20 Total Bilirubin 0.4 mg/dL (0.2-1.0) 01/19/17 06:42 AST 10 U/L (15-37) L 01/19/17 06:42 ALT 12 U/L (12-78) 01/19/17 06:42 Alkaline Phosphatase 61 U/L (45-117) 01/19/17 06:42 Creatine Kinase 12 IU/L (26-192) L 01/17/17 17:33 Troponin I < 0.02 ng/ml (0.00-0.05) 01/17/17 17:33 B-Natriuretic Peptide 9848.47 pg/ml (5-125) H 01/17/17 17:33 Total Protein 5.8 g/dl (6.4-8.2) L 01/19/17 06:42 Albumin 2.1 g/dl (3.4-5.0) L 01/19/17 06:42 - ....Imaging Ultrasound: Report Reviewed (large air-fluid collection in left lateral abdominal wall, just superior to and adjacent to stoma, but separate, appears contiguous with bowel loop intraabdominally, unclear if SB or rectosig distal segment, + fluid in rectum and distal bowel, contrast out into ostomy; RLQ abd wall with small open area likely c/w packing present but no communication with intraperitoneal space; midline wounds apparent), Image Reviewed Problem List - Problems (1) Open wound of abdominal wall, anterior, complicated Assessment/Plan: Midline wounds changed and repacked with Dakin's-dampened Kerlix gauze - to continue BID. RLQ drain site repacked with 1/4" plain ribbon gauze, including small side tract at 10:00. Will continue daily for now. Code(s): S31.109A - UNSP OPN WND ABD WALL, UNSP Q W/O PENET PERIT CAV, INIT Qualifiers: Encounter type: subsequent encounter Qualified Code(s): S31.109D - Unspecified open wound of abdominal wall, unspecified quadrant without penetration into peritoneal cavity, subsequent encounter (2) Disruption of internal operation (surgical) wound, not elsewhere classified , subsequent encounter Assessment/Plan: wound bases granulating well, continue dressing changes. Code(s): T81.32XD - DISRUPTION OF INTERNAL OPERATION (SURGICAL) WOUND, NEC, SUBS (3) Colostomy in place Assessment/Plan: colostomy appliance changed - base hole needs to be cut to fit skin edge at stoma exactly and no bigger, against one edge, not centered. Skin prep peristomally and base pressed down against skin from stoma/skin edge outward to ensure good seal. Only change when leaking. Pt still having some stool evacuation per rectum after Dwaine's procedure. Will need to do CT with rectal contrast to evaluate distal segment and possible connection to left abdominal wall collection (abscess? fistula?). Will do tomorrow to allow proximal contrast to evacuate. Pt is tender over L abdominal wall over area of fluid collection, but no skin changes are present. Code(s): Z93.3 - COLOSTOMY STATUS (4) Protein calorie malnutrition Assessment/Plan: recommend strawberry Glucerna supplements with each meal - pt does not eat well in hospital. Code(s): E46 - UNSPECIFIED PROTEIN-CALORIE MALNUTRITION Qualifiers: Protein-calorie malnutrition severity: unspecified severity Qualified Code( s): E46 - Unspecified protein-calorie malnutrition (5) Generalized weakness Assessment/Plan: PT to continue and work with patient on stairs as well as walking. She will need to be able to navigate home stairs daily on discharge to keep up conditioning and leave home for appointments. Pt should be up/OOB at least to chair for meals and as often as able, with ambulation with assistance. Code(s): R53.1 - WEAKNESS (6) Muscular deconditioning Code(s): R29.898 - OTH SYMPTOMS AND SIGNS INVOLVING THE MUSCULOSKELETAL SYSTEM (7) Anemia Code(s): D64.9 - ANEMIA, UNSPECIFIED Qualifiers: Anemia type: unspecified type Qualified Code(s): D64.9 - Anemia, unspecified (8) H/O: CVA (cerebrovascular accident) Code(s): Z86.73 - PRSNL HX OF TIA (TIA), AND CEREB INFRC W/O RESID DEFICITS (9) Anticoagulant long-term use Assessment/Plan: INR therapeutic. resuming coumadin. Code(s): Z79.01 - [facility] (CURRENT) USE OF 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 (10) COPD without exacerbation Assessment/Plan: on asmanex bid Code(s): J44.9 - CHRONIC OBSTRUCTIVE PULMONARY DISEASE, UNSPECIFIED (11) Cancer of left breast Assessment/Plan: on anastrozole Code(s): C50.912 - MALIGNANT NEOPLASM OF UNSPECIFIED SITE OF LEFT FEMALE BREAST Qualifiers: Breast location: upper outer quadrant of breast Estrogen receptor status: positive Patient sex: female Qualified Code(s): C50.412 - Malignant neoplasm of upper-outer quadrant of left female breast (12) Depression Assessment/Plan: wellbutrin increased to 150mg bid Code(s): F32.9 - MAJOR DEPRESSIVE DISORDER, SINGLE EPISODE, UNSPECIFIED Qualifiers: Depression Type: reactive depression Qualified Code(s): F32.9 - Major depressive disorder, single episode, unspecified (13) Diabetes mellitus type 2, noninsulin dependent Assessment/Plan: not requiring medication at this time, on diabetic diet Code(s): E11.9 - TYPE 2 DIABETES MELLITUS WITHOUT COMPLICATIONS (14) Hypertension Assessment/Plan: on coreg and diovan, on lasix Code(s): I10 - ESSENTIAL (PRIMARY) HYPERTENSION Qualifiers: Hypertension type: essential hypertension Qualified Code(s): I10 - Essential (primary) hypertension (15) CHF (congestive heart failure) Assessment/Plan: on coreg and lasix, no acute exacerbation Code(s): I50.9 - HEART FAILURE, UNSPECIFIED Qualifiers: Congestive heart failure type: systolic Congestive heart failure chronicity : chronic Qualified Code(s): I50.22 - Chronic systolic (congestive) heart failure
[2017-01-19] MEDS ORDERED: INSULIN (NOVOLOG) ASPART 100 UNITS/ML 10ML VIAL ONE (16:59)
[2017-01-19] MEDS: WARFARIN NA 2 MG TABLET (UD) PO SCH (17:04)
--- NOTE | 2017-01-19 18:50 | PN ---
Progress Note, Physician History of Present Illness: Pt was transferred to my service ( after pt was admitted for deconditioning, as could not walk up the stairs). Pt is known to me from previous admission (when had sigmoid rupture, colostomy placement). - Current Medication List Current Medications: Active Medications Albuterol Sulfate (Ventolin 0.5% -) 1 amp NEB Q8H PRN PRN Reason: wheezing Anastrozole (Arimidex -) 1 mg PO DAILY [facility] Last Admin: 01/19/17 11:00 Dose: 1 mg Atorvastatin Calcium (Lipitor -) 20 mg PO HS [facility] Last Admin: 01/18/17 21:10 Dose: 20 mg Bupropion HCl (Wellbutrin -) 150 mg PO BID [facility] Last Admin: 01/19/17 11:00 Dose: 150 mg Carvedilol (Coreg -) 25 mg PO BID [facility] Last Admin: 01/19/17 11:00 Dose: 25 mg Cyanocobalamin (Vitamin B12 -) 1,000 mcg PO DAILY [facility] Last Admin: 01/19/17 11:00 Dose: 1,000 mcg Furosemide (Lasix -) 20 mg PO DAILY [facility] Last Admin: 01/19/17 11:00 Dose: 20 mg Insulin Aspart (Novolog Vial Sliding Scale -) 1 vial SQ TIDAC [facility] PRN Reason: Protocol Last Admin: 01/19/17 17:04 Dose: Not Given Mometasone Furoate (Asmanex 110mcg -) 1 puff IH BID [facility] Last Admin: 01/19/17 11:01 Dose: 1 puff Nicotine (Nicoderm Patch -) 7 mg TD DAILY [facility] Last Admin: 01/19/17 11:00 Dose: Not Given Pantoprazole Sodium (Protonix -) 40 mg PO DAILY [facility] Last Admin: 01/19/17 11:00 Dose: 40 mg Sodium Hypochlorite (Dakin's Solution 0.25% (Half-Strength) -) 1 applic TP DAILY [facility] Valsartan (Diovan -) 80 mg PO DAILY [facility] Last Admin: 01/19/17 11:00 Dose: 80 mg Warfarin Sodium (Coumadin -) 2 mg PO DAILY@1800 [facility] Last Admin: 01/19/17 17:04 Dose: 2 mg Zolpidem Tartrate (Ambien -) 5 mg PO HS PRN PRN Reason: INSOMNIA Last Admin: 01/18/17 21:15 Dose: 5 mg - Objective Vital Signs: Vital Signs Temperature 99.0 F 01/19/17 14:11 Pulse Rate 84 01/19/17 14:11 Respiratory Rate 20 01/19/17 14:11 Blood Pressure 113/44 01/19/17 14:11 O2 Sat by Pulse Oximetry (%) 95 01/19/17 13:34 Constitutional: Yes: No Distress, Calm Cardiovascular: Yes: Regular Rate and Rhythm, S1, S2 Respiratory: Yes: Regular, CTA Bilaterally. No: Rales Gastrointestinal: Yes: Normal Bowel Sounds, Soft, Abdomen, Obese, Other ( midline dehiscent abdomianl wall) Edema: No Neurological: Yes: Alert, Oriented Labs: CBC, BMP 01/19/17 06:42 01/19/17 06:42 INR, PTT INR 2.27 (0.82-1.09) H 01/19/17 06:42 Problem List - Problems (1) Generalized weakness Code(s): R53.1 - WEAKNESS (2) Muscular deconditioning Code(s): R29.898 - OTH SYMPTOMS AND SIGNS INVOLVING THE MUSCULOSKELETAL SYSTEM (3) COPD (chronic obstructive pulmonary disease) Code(s): J44.9 - CHRONIC OBSTRUCTIVE PULMONARY DISEASE, UNSPECIFIED Qualifiers: COPD type: unspecified COPD Qualified Code(s): J44.9 - Chronic obstructive pulmonary disease, unspecified (4) Diabetes mellitus type 2, noninsulin dependent Code(s): E11.9 - TYPE 2 DIABETES MELLITUS WITHOUT COMPLICATIONS (5) H/O: CVA (cerebrovascular accident) Code(s): Z86.73 - PRSNL HX OF TIA (TIA), AND CEREB INFRC W/O RESID DEFICITS (6) Open wound of abdominal wall, anterior, complicated Code(s): S31.109A - UNSP OPN WND ABD WALL, UNSP Q W/O PENET PERIT CAV, INIT Qualifiers: Encounter type: subsequent encounter Qualified Code(s): S31.109D - Unspecified open wound of abdominal wall, unspecified quadrant without penetration into peritoneal cavity, subsequent encounter (7) Perforated sigmoid colon Code(s): K63.1 - PERFORATION OF INTESTINE (NONTRAUMATIC) (8) Protein calorie malnutrition Code(s): E46 - UNSPECIFIED PROTEIN-CALORIE MALNUTRITION Qualifiers: Protein-calorie malnutrition severity: unspecified severity Qualified Code( s): E46 - Unspecified protein-calorie malnutrition (9) Hyponatremia Code(s): E87.1 - HYPO-OSMOLALITY AND HYPONATREMIA (10) Hypoalbuminemia Code(s): E88.09 - OTH DISORDERS OF PLASMA-PROTEIN METABOLISM, NEC Assessment/Plan To f/u CT scan report with Sx. To monitor INR. PT Cont meds. AM labs
[2017-01-19] MEDS: ZOLPIDEM TARTRATE 5 MG TABLET PO PRN (21:11)
[2017-01-19] MEDS: ATORVASTATIN CA 20 MG TABLET (FP) PO SCH (21:12)
[2017-01-20] MEDS: INSULIN SLIDING SCALE (NOVOLOG) 1 VIAL SQ SCH ×3 (06:46→16:36)
[2017-01-20 07:23] LABS: MCH 29.4 pg (25.7-33.7); MCHC 32.6 g/dl (32.0-36.0); MEAN CELL VOLUME 90.3 fl (80-96); MEAN PLT VOLUME 7.2 fl (7.5-11.1); PLATELET COUNT 386 K/MM3 (134-434); RDW 15.9 % (11.6-15.6); WHITE BLOOD COUNT 7.8 K/mm3 (4.0-10.0)
[2017-01-20 07:41] LABS: ANION GAP 10 (8-16); BILIRUBIN,TOTAL 0.5 mg/dL (0.2-1.0); CALCIUM 8.5 mg/dL (8.5-10.1); CO2 25 mmol/L (21-32); CREATININE 0.9 mg/dL (0.55-1.02); GLUCOSE,RANDOM 103 mg/dL (74-106); INR 1.78 (0.82-1.09); PROTHROMBIN TIME (PATIENT) 20.1 SEC (9.98-11.88); SGOT/AST 8 U/L (15-37); SGPT/ALT 13 U/L (12-78); TOT PROT 5.8 g/dl (6.4-8.2)
[2017-01-20 07:42] LABS: ALK PHOS 60 U/L (45-117)
[2017-01-20] MEDS ORDERED: PT OWN MED DRAWER 7, Y5N ONE ×3 (09:27→14:53)
[2017-01-20] MEDS: CYANOCOBALAMIN 1,000 MCG TABLET (FP) PO SCH (09:41)
[2017-01-20] MEDS: VALSARTAN 80 MG TABLET (UD) PO SCH (09:41)
[2017-01-20] MEDS: PANTOPRAZOLE 40 MG TABLET (FP) PO SCH (09:41)
[2017-01-20] MEDS: CARVEDILOL 25 MG TABLET (FP) PO SCH ×2 (09:41→22:49)
[2017-01-20] MEDS: FUROSEMIDE 20 MG TABLET (FP) PO SCH (09:42)
[2017-01-20] MEDS: ANASTROZOLE 1 MG TABLET PO SCH (09:42)
[2017-01-20] MEDS: buPROPion HCL 75 MG TABLET PO SCH ×2 (09:42→22:50)
[2017-01-20] MEDS: NICOTINE 7 MG/24 HOURS TOPICAL PATCH TD SCH ×2 (09:42→09:51)
[2017-01-20] MEDS: MOMETASONE FUROATE 110 MCG/IH INHALER IH SCH ×2 (09:55→22:50)
--- NOTE | 2017-01-20 14:40 | PN ---
Progress Note, Physician History of Present Illness: Pt w/o fever, chills, abd pain, N, V. Pt w/o SOB, CP, palp. - Current Medication List Current Medications: Active Medications Albuterol Sulfate (Ventolin 0.5% -) 1 amp NEB Q8H PRN PRN Reason: wheezing Anastrozole (Arimidex -) 1 mg PO DAILY [facility] Last Admin: 01/20/17 09:42 Dose: 1 mg Atorvastatin Calcium (Lipitor -) 20 mg PO HS [facility] Last Admin: 01/19/17 21:12 Dose: 20 mg Bupropion HCl (Wellbutrin -) 150 mg PO BID [facility] Last Admin: 01/20/17 09:42 Dose: 150 mg Carvedilol (Coreg -) 25 mg PO BID [facility] Last Admin: 01/20/17 09:41 Dose: 25 mg Cyanocobalamin (Vitamin B12 -) 1,000 mcg PO DAILY [facility] Last Admin: 01/20/17 09:41 Dose: 1,000 mcg Furosemide (Lasix -) 20 mg PO DAILY [facility] Last Admin: 01/20/17 09:42 Dose: 20 mg Insulin Aspart (Novolog Vial Sliding Scale -) 1 vial SQ TIDAC [facility] PRN Reason: Protocol Last Admin: 01/20/17 13:42 Dose: Not Given Mometasone Furoate (Asmanex 110mcg -) 1 puff IH BID [facility] Last Admin: 01/20/17 09:55 Dose: 1 puff Nicotine (Nicoderm Patch -) 7 mg TD DAILY [facility] Last Admin: 01/20/17 09:51 Dose: Not Given Pantoprazole Sodium (Protonix -) 40 mg PO DAILY [facility] Last Admin: 01/20/17 09:41 Dose: 40 mg Sodium Hypochlorite (Dakin's Solution 0.25% (Half-Strength) -) 1 applic TP DAILY [facility] Valsartan (Diovan -) 80 mg PO DAILY [facility] Last Admin: 01/20/17 09:41 Dose: 80 mg Warfarin Sodium (Coumadin -) 2 mg PO DAILY@1800 [facility] Last Admin: 01/19/17 17:04 Dose: 2 mg Warfarin Sodium (Coumadin -) 3 mg PO ONCE@1800 [facility] Stop: 01/20/17 18:01 Zolpidem Tartrate (Ambien -) 5 mg PO HS PRN PRN Reason: INSOMNIA Last Admin: 01/19/17 21:11 Dose: 5 mg - Objective Vital Signs: Vital Signs Temperature 98.3 F 01/20/17 09:36 Pulse Rate 85 01/20/17 09:36 Respiratory Rate 19 01/20/17 09:36 Blood Pressure 139/54 01/20/17 09:36 O2 Sat by Pulse Oximetry (%) 95 01/19/17 22:00 Constitutional: Yes: No Distress, Calm Cardiovascular: Yes: Regular Rate and Rhythm, S1, S2 Respiratory: Yes: Regular, CTA Bilaterally. No: Rales Gastrointestinal: Yes: Normal Bowel Sounds, Soft. No: Tenderness Edema: No Neurological: Yes: Alert, Oriented Labs: CBC, BMP 01/20/17 06:30 01/20/17 06:30 INR, PTT INR 1.78 (0.82-1.09) H 01/20/17 06:30 Problem List - Problems (1) Generalized weakness Code(s): R53.1 - WEAKNESS (2) Muscular deconditioning Code(s): R29.898 - OTH SYMPTOMS AND SIGNS INVOLVING THE MUSCULOSKELETAL SYSTEM (3) COPD (chronic obstructive pulmonary disease) Code(s): J44.9 - CHRONIC OBSTRUCTIVE PULMONARY DISEASE, UNSPECIFIED Qualifiers: COPD type: unspecified COPD Qualified Code(s): J44.9 - Chronic obstructive pulmonary disease, unspecified (4) Diabetes mellitus type 2, noninsulin dependent Code(s): E11.9 - TYPE 2 DIABETES MELLITUS WITHOUT COMPLICATIONS (5) H/O: CVA (cerebrovascular accident) Code(s): Z86.73 - PRSNL HX OF TIA (TIA), AND CEREB INFRC W/O RESID DEFICITS (6) Open wound of abdominal wall, anterior, complicated Code(s): S31.109A - UNSP OPN WND ABD WALL, UNSP Q W/O PENET PERIT CAV, INIT Qualifiers: Encounter type: subsequent encounter Qualified Code(s): S31.109D - Unspecified open wound of abdominal wall, unspecified quadrant without penetration into peritoneal cavity, subsequent encounter (7) Perforated sigmoid colon Code(s): K63.1 - PERFORATION OF INTESTINE (NONTRAUMATIC) (8) Protein calorie malnutrition Code(s): E46 - UNSPECIFIED PROTEIN-CALORIE MALNUTRITION Qualifiers: Protein-calorie malnutrition severity: unspecified severity Qualified Code( s): E46 - Unspecified protein-calorie malnutrition (9) Hyponatremia Code(s): E87.1 - HYPO-OSMOLALITY AND HYPONATREMIA (10) Hypoalbuminemia Code(s): E88.09 - OTH DISORDERS OF PLASMA-PROTEIN METABOLISM, NEC (11) Abdominal wall abscess Code(s): L02.211 - CUTANEOUS ABSCESS OF ABDOMINAL WALL (12) Liver lesion, left lobe Code(s): K76.89 - OTHER SPECIFIED DISEASES OF LIVER (13) Liver lesion, right lobe Code(s): K76.89 - OTHER SPECIFIED DISEASES OF LIVER Assessment/Plan To f/u with Sx regarding Abd/ pelvis CT scan report. Extra coumadin tonight, monitor INR in AM To monitor INR. PT Cont meds. AM labs Case was d/w pt's nurse.
[2017-01-20] MEDS ORDERED: SODIUM CHLORIDE 1,000 ML IV SCH (17:15)
[2017-01-20] MEDS ORDERED: WARFARIN NA 3 MG TABLET PO ONE (18:00)
[2017-01-20] MEDS: WARFARIN NA 2 MG TABLET (UD) PO SCH (18:20)
[2017-01-20] MEDS: ZOLPIDEM TARTRATE 5 MG TABLET PO PRN (21:50)
[2017-01-20] MEDS: ATORVASTATIN CA 20 MG TABLET (FP) PO SCH (22:49)
[2017-01-20] MEDS: SODIUM HYPOCHLORITE 0.25%- 473 ML BULK BOTTLE TP SCH (22:50)
--- NOTE | 2017-01-20 23:04 | PN ---
Progress Note, Physician Chief Complaint: weakness and wound concerns History of Present Illness: No overnight events. Had CT with rectal contrast today. Wound dressings not yet done. Ostomy bag not leaking yet. - Current Medication List Current Medications: Active Medications Albuterol Sulfate (Ventolin 0.5% -) 1 amp NEB Q8H PRN PRN Reason: wheezing Anastrozole (Arimidex -) 1 mg PO DAILY [facility] Last Admin: 01/20/17 09:42 Dose: 1 mg Atorvastatin Calcium (Lipitor -) 20 mg PO HS [facility] Last Admin: 01/20/17 22:49 Dose: 20 mg Bupropion HCl (Wellbutrin -) 150 mg PO BID [facility] Last Admin: 01/20/17 22:50 Dose: 150 mg Carvedilol (Coreg -) 25 mg PO BID [facility] Last Admin: 01/20/17 22:49 Dose: 25 mg Cyanocobalamin (Vitamin B12 -) 1,000 mcg PO DAILY [facility] Last Admin: 01/20/17 09:41 Dose: 1,000 mcg Furosemide (Lasix -) 20 mg PO DAILY [facility] Last Admin: 01/20/17 09:42 Dose: 20 mg Sodium Chloride (Normal Saline -) 1,000 mls @ 100 mls/hr IV ASDIR [facility] Stop: 01/21/17 03:14 Last Admin: 01/20/17 18:20 Dose: 100 mls/hr Insulin Aspart (Novolog Vial Sliding Scale -) 1 vial SQ TIDAC [facility] PRN Reason: Protocol Last Admin: 01/20/17 16:36 Dose: Not Given Mometasone Furoate (Asmanex 110mcg -) 1 puff IH BID [facility] Last Admin: 01/20/17 22:50 Dose: 1 puff Nicotine (Nicoderm Patch -) 7 mg TD DAILY [facility] Last Admin: 01/20/17 09:51 Dose: Not Given Pantoprazole Sodium (Protonix -) 40 mg PO DAILY [facility] Last Admin: 01/20/17 09:41 Dose: 40 mg Sodium Hypochlorite (Dakin's Solution 0.25% (Half-Strength) -) 1 applic TP DAILY [facility] Last Admin: 01/20/17 22:50 Dose: 1 applic Valsartan (Diovan -) 80 mg PO DAILY [facility] Last Admin: 01/20/17 09:41 Dose: 80 mg Warfarin Sodium (Coumadin -) 2 mg PO DAILY@1800 [facility] Last Admin: 01/20/17 18:20 Dose: 2 mg Zolpidem Tartrate (Ambien -) 5 mg PO HS PRN - Objective Vital Signs: Vital Signs Temperature 98.7 F 01/20/17 14:56 Pulse Rate 86 01/20/17 14:56 Respiratory Rate 19 01/20/17 09:36 Blood Pressure 103/48 01/20/17 14:56 O2 Sat by Pulse Oximetry (%) 95 01/20/17 10:00 Constitutional: Yes: No Distress, Calm, Obese Gastrointestinal: Yes: Soft, Abdomen, Obese, Tenderness (left abdomen superior to and peristomal over area of known fluid collection), Other (colostomy p/p/p soft/liquidy brown stool; bag with very small gap at medial edge - resecured with piece of skin barrier and skin prep underneath loose edge; RLQ drain site with small dark staining on dressing, dry; midline dressing with scant strikethrough, small amount of stool evident at left edge from bag leakage (see wound section)) Extremities: No: Cool, Cyanosis Integumentary: Yes: Incision (midline, RLQ), Skin Tear (R forearm with mepilex) Wound/Incision: Yes: Dressing Removed (midline - green on Kerlix packing with characteristic odor of Pseudomonas from both wounds, both rinsed with Dakin's solution, granulating well, clean otherwise, scant yellow/fibrous necrotic fascia in upper left basal edge), Draining (mild serosang from RLQ site, somewhat purulent from wound base and on packing ribbon, cannot see/identify source), Unapproximated (midline, RLQ) Neurological: Yes: Alert, Oriented Psychiatric: Yes: Alert, Oriented, Other (depressed) Labs: CBC, BMP 01/20/17 06:30 01/20/17 06:30 INR, PTT INR 1.78 (0.82-1.09) H 01/20/17 06:30 - ....Imaging Cat Scan: Report Reviewed (left lateral abdominal wall fluid collection/abscess - no contrast in it, but comes close to bowel loops (?fistula), rectal contrast does not clearly communicate with adjacent bowel or with abscess cavity; RLQ site with more air visible in tract, less soft tissue/phlegmon (is packed with ribbon gauze)), Image Reviewed Problem List - Problems (1) Open wound of abdominal wall, anterior, complicated Assessment/Plan: Midline wounds changed and repacked with Dakin's-dampened Kerlix gauze - to continue BID. RLQ drain site rinsed with Dakin's and repacked with 1/4" plain ribbon gauze, including small side tract at 10:00. Will continue daily for now. Code(s): S31.109A - UNSP OPN WND ABD WALL, UNSP Q W/O PENET PERIT CAV, INIT Qualifiers: Encounter type: subsequent encounter Qualified Code(s): S31.109D - Unspecified open wound of abdominal wall, unspecified quadrant without penetration into peritoneal cavity, subsequent encounter (2) Disruption of internal operation (surgical) wound, not elsewhere classified , subsequent encounter Assessment/Plan: wound bases granulating well, continue dressing changes. Code(s): T81.32XD - DISRUPTION OF INTERNAL OPERATION (SURGICAL) WOUND, NEC, SUBS (3) Colostomy in place Assessment/Plan: colostomy appliance changed yesterday - base hole needs to be cut to fit skin edge at stoma exactly and no bigger, against one edge, not centered. Skin prep peristomally and base pressed down against skin from stoma/skin edge outward to ensure good seal. Only change when leaking. medial edge reinforced with skin barrier and skin prep underneath. will likely need changing tomorrow. Code(s): Z93.3 - COLOSTOMY STATUS (4) Protein calorie malnutrition Assessment/Plan: recommend strawberry Glucerna supplements with each meal - pt does not eat well in hospital. Code(s): E46 - UNSPECIFIED PROTEIN-CALORIE MALNUTRITION Qualifiers: Protein-calorie malnutrition severity: unspecified severity Qualified Code( s): E46 - Unspecified protein-calorie malnutrition (5) Generalized weakness Assessment/Plan: PT to continue and work with patient on stairs as well as walking. She will need to be able to navigate home stairs daily on discharge to keep up conditioning and leave home for appointments. Pt should be up/OOB at least to chair for meals and as often as able, with ambulation with assistance. Pt refused to get up/OOB today. She states she knows that if she does not get up and work at regaining strength, she will get weaker. Code(s): R53.1 - WEAKNESS (6) Muscular deconditioning Code(s): R29.898 - OTH SYMPTOMS AND SIGNS INVOLVING THE MUSCULOSKELETAL SYSTEM (7) Anemia Code(s): D64.9 - ANEMIA, UNSPECIFIED Qualifiers: Anemia type: unspecified type Qualified Code(s): D64.9 - Anemia, unspecified (8) H/O: CVA (cerebrovascular accident) Code(s): Z86.73 - PRSNL HX OF TIA (TIA), AND CEREB INFRC W/O RESID DEFICITS (9) Anticoagulant long-term use Assessment/Plan: INR subtherapeutic. on coumadin. Code(s): Z79.01 - SHELTER (CURRENT) USE OF 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 (10) COPD without exacerbation Assessment/Plan: on asmanex bid Code(s): J44.9 - CHRONIC OBSTRUCTIVE PULMONARY DISEASE, UNSPECIFIED (11) Cancer of left breast Assessment/Plan: on anastrozole Code(s): C50.912 - MALIGNANT NEOPLASM OF UNSPECIFIED SITE OF LEFT FEMALE BREAST Qualifiers: Breast location: upper outer quadrant of breast Estrogen receptor status: positive Patient sex: female Qualified Code(s): C50.412 - Malignant neoplasm of upper-outer quadrant of left female breast (12) Depression Assessment/Plan: wellbutrin increased to 150mg bid Code(s): F32.9 - MAJOR DEPRESSIVE DISORDER, SINGLE EPISODE, UNSPECIFIED Qualifiers: Depression Type: reactive depression Qualified Code(s): F32.9 - Major depressive disorder, single episode, unspecified (13) Diabetes mellitus type 2, noninsulin dependent Assessment/Plan: not requiring medication at this time, on diabetic diet Code(s): E11.9 - TYPE 2 DIABETES MELLITUS WITHOUT COMPLICATIONS (14) Hypertension Assessment/Plan: on coreg and diovan, on lasix Code(s): I10 - ESSENTIAL (PRIMARY) HYPERTENSION Qualifiers: Hypertension type: essential hypertension Qualified Code(s): I10 - Essential (primary) hypertension (15) CHF (congestive heart failure) Assessment/Plan: on coreg and lasix, no acute exacerbation Code(s): I50.9 - HEART FAILURE, UNSPECIFIED Qualifiers: Congestive heart failure type: systolic Congestive heart failure chronicity : chronic Qualified Code(s): I50.22 - Chronic systolic (congestive) heart failure (16) ATN (acute tubular necrosis) Assessment/Plan: IV hydration - giving 1L NS over 10 hours, rechecking labs in am Code(s): N17.0 - ACUTE KIDNEY FAILURE WITH TUBULAR NECROSIS (17) Abdominal wall abscess Assessment/Plan: not cutaneous - more intramuscular/subfascial (?) - collection within abdominal wall, possibly fistulous to bowel Pt is tender over L abdominal wall over area of fluid collection, but no skin changes are present. Will have IR place drain tomorrow - NPO for breakfast until after procedure. Will be able to culture aspirate, eventually may be able to do abscessogram with contrast to evaluate extent of tracking and to where. If determined to be fistulous to bowel, may need to be able to bag drain site in future. Spoke with Dr. Rubi - plan for midday tomorrow. Code(s): L02.211 - CUTANEOUS ABSCESS OF ABDOMINAL WALL
[2017-01-21] MEDS: INSULIN SLIDING SCALE (NOVOLOG) 1 VIAL SQ SCH ×3 (06:53→17:33)
[2017-01-21 07:28] LABS: MCH 29.9 pg (25.7-33.7); MCHC 32.7 g/dl (32.0-36.0); MEAN CELL VOLUME 91.5 fl (80-96); MEAN PLT VOLUME 7.1 fl (7.5-11.1); PLATELET COUNT 384 K/MM3 (134-434); RDW 15.6 % (11.6-15.6); WHITE BLOOD COUNT 7.3 K/mm3 (4.0-10.0)
[2017-01-21 07:46] LABS: ANION GAP 8 (8-16); BILIRUBIN,TOTAL 0.4 mg/dL (0.2-1.0); CALCIUM 8.3 mg/dL (8.5-10.1); CO2 27 mmol/L (21-32); GLUCOSE,RANDOM 93 mg/dL (74-106); SGOT/AST 10 U/L (15-37); SGPT/ALT 12 U/L (12-78)
[2017-01-21 07:48] LABS: ALK PHOS 57 U/L (45-117); CREATININE 0.9 mg/dL (0.55-1.02); INR 1.89 (0.82-1.09); PROTHROMBIN TIME (PATIENT) 21.4 SEC (9.98-11.88); TOT PROT 5.5 g/dl (6.4-8.2)
[2017-01-21] MEDS ORDERED: PT OWN MED DRAWER 7, Y5N ONE (11:46)
[2017-01-21] MEDS: MOMETASONE FUROATE 110 MCG/IH INHALER IH SCH ×2 (11:47→21:18)
[2017-01-21] MEDS: NICOTINE 7 MG/24 HOURS TOPICAL PATCH TD SCH (11:47)
[2017-01-21] MEDS: CARVEDILOL 25 MG TABLET (FP) PO SCH ×2 (11:47→21:18)
[2017-01-21] MEDS: FUROSEMIDE 20 MG TABLET (FP) PO SCH (11:47)
[2017-01-21] MEDS: VALSARTAN 80 MG TABLET (UD) PO SCH (11:47)
[2017-01-21] MEDS: CYANOCOBALAMIN 1,000 MCG TABLET (FP) PO SCH (11:47)
[2017-01-21] MEDS: PANTOPRAZOLE 40 MG TABLET (FP) PO SCH (11:47)
[2017-01-21] MEDS: ANASTROZOLE 1 MG TABLET PO SCH (11:48)
[2017-01-21] MEDS: buPROPion HCL 75 MG TABLET PO SCH ×2 (11:48→21:18)
[2017-01-21] MEDS ORDERED: ACETAMINOPHEN WITH CODEINE 300MG/30MG TABLET PO PRN ×2 (12:10→13:22)
--- NOTE | 2017-01-21 12:14 | PN ---
Progress Note, Physician History of Present Illness: Pt w/o fever, chills, abd pain, N, V. Pt w/o SOB, CP, palp. Pt came back from IR where had abd drainage tube placed. - Current Medication List Current Medications: Active Medications Acetaminophen/Codeine Phosphate (Tylenol # 3 -) 2 tab PO Q6H PRN PRN Reason: FEVER OR PAIN Albuterol Sulfate (Ventolin 0.5% -) 1 amp NEB Q8H PRN PRN Reason: wheezing Anastrozole (Arimidex -) 1 mg PO DAILY [facility] Last Admin: 01/21/17 11:48 Dose: 1 mg Atorvastatin Calcium (Lipitor -) 20 mg PO HS [facility] Last Admin: 01/20/17 22:49 Dose: 20 mg Bupropion HCl (Wellbutrin -) 150 mg PO BID [facility] Last Admin: 01/21/17 11:48 Dose: 150 mg Carvedilol (Coreg -) 25 mg PO BID [facility] Last Admin: 01/21/17 11:47 Dose: 25 mg Cyanocobalamin (Vitamin B12 -) 1,000 mcg PO DAILY [facility] Last Admin: 01/21/17 11:47 Dose: 1,000 mcg Furosemide (Lasix -) 20 mg PO DAILY [facility] Last Admin: 01/21/17 11:47 Dose: 20 mg Sodium Chloride (Normal Saline -) 1,000 mls @ 50 mls/hr IV ASDIR [facility] Stop: 01/23/17 08:14 Insulin Aspart (Novolog Vial Sliding Scale -) 1 vial SQ TIDAC [facility] PRN Reason: Protocol Last Admin: 01/21/17 11:48 Dose: Not Given Mometasone Furoate (Asmanex 110mcg -) 1 puff IH BID [facility] Last Admin: 01/21/17 11:47 Dose: 1 puff Nicotine (Nicoderm Patch -) 7 mg TD DAILY [facility] Last Admin: 01/21/17 11:47 Dose: Not Given Pantoprazole Sodium (Protonix -) 40 mg PO DAILY [facility] Last Admin: 01/21/17 11:47 Dose: 40 mg Sodium Hypochlorite (Dakin's Solution 0.25% (Half-Strength) -) 1 applic TP DAILY [facility] Last Admin: 01/20/17 22:50 Dose: 1 applic Valsartan (Diovan -) 80 mg PO DAILY [facility] Last Admin: 01/21/17 11:47 Dose: 80 mg Warfarin Sodium (Coumadin -) 3 mg PO DAILY@1800 [facility] Zolpidem Tartrate (Ambien -) 5 mg PO HS PRN - Objective Vital Signs: Vital Signs Temperature 98.0 F 01/21/17 06:00 Pulse Rate 85 01/21/17 10:56 Respiratory Rate 20 01/21/17 10:56 Blood Pressure 147/91 01/21/17 10:56 O2 Sat by Pulse Oximetry (%) 96 01/21/17 10:56 Constitutional: Yes: No Distress, Calm Cardiovascular: Yes: Regular Rate and Rhythm, S1, S2 Respiratory: Yes: Regular, CTA Bilaterally. No: Rales Gastrointestinal: Yes: Normal Bowel Sounds, Soft, Other (left side drainage) Edema: No Neurological: Yes: Alert, Oriented Labs: CBC, BMP 01/21/17 06:30 01/21/17 06:30 INR, PTT INR 1.89 (0.82-1.09) H 01/21/17 06:30 Problem List - Problems (1) Generalized weakness Code(s): R53.1 - WEAKNESS (2) Muscular deconditioning Code(s): R29.898 - OTH SYMPTOMS AND SIGNS INVOLVING THE MUSCULOSKELETAL SYSTEM (3) COPD (chronic obstructive pulmonary disease) Code(s): J44.9 - CHRONIC OBSTRUCTIVE PULMONARY DISEASE, UNSPECIFIED Qualifiers: COPD type: unspecified COPD Qualified Code(s): J44.9 - Chronic obstructive pulmonary disease, unspecified (4) Diabetes mellitus type 2, noninsulin dependent Code(s): E11.9 - TYPE 2 DIABETES MELLITUS WITHOUT COMPLICATIONS (5) H/O: CVA (cerebrovascular accident) Code(s): Z86.73 - PRSNL HX OF TIA (TIA), AND CEREB INFRC W/O RESID DEFICITS (6) Open wound of abdominal wall, anterior, complicated Code(s): S31.109A - UNSP OPN WND ABD WALL, UNSP Q W/O PENET PERIT CAV, INIT Qualifiers: Encounter type: subsequent encounter Qualified Code(s): S31.109D - Unspecified open wound of abdominal wall, unspecified quadrant without penetration into peritoneal cavity, subsequent encounter (7) Perforated sigmoid colon Code(s): K63.1 - PERFORATION OF INTESTINE (NONTRAUMATIC) (8) Protein calorie malnutrition Code(s): E46 - UNSPECIFIED PROTEIN-CALORIE MALNUTRITION Qualifiers: Protein-calorie malnutrition severity: unspecified severity Qualified Code( s): E46 - Unspecified protein-calorie malnutrition (9) Hyponatremia Code(s): E87.1 - HYPO-OSMOLALITY AND HYPONATREMIA (10) Hypoalbuminemia Code(s): E88.09 - OTH DISORDERS OF PLASMA-PROTEIN METABOLISM, NEC (11) Abdominal wall abscess Code(s): L02.211 - CUTANEOUS ABSCESS OF ABDOMINAL WALL (12) Liver lesion, left lobe Code(s): K76.89 - OTHER SPECIFIED DISEASES OF LIVER (13) Liver lesion, right lobe Code(s): K76.89 - OTHER SPECIFIED DISEASES OF LIVER Assessment/Plan Coumadin dose was changed To monitor INR. PT Cont meds; pain medication PRN. IVF (pt had [address] scan w IVC i 48 hours). AM labs Case was d/w pt's nurse.
[2017-01-21] MEDS: SODIUM CHLORIDE 1,000 ML IV SCH (13:01)
[2017-01-21] MEDS: SODIUM HYPOCHLORITE 0.25%- 473 ML BULK BOTTLE TP SCH ×3 (16:25→22:08)
[2017-01-21] MEDS: WARFARIN NA 3 MG TABLET PO SCH (17:34)
[2017-01-21] MEDS: ACETAMINOPHEN WITH CODEINE 300MG/30MG TABLET PO PRN (19:43)
--- NOTE | 2017-01-21 20:00 | PN ---
Progress Note, Physician Chief Complaint: weakness and wound concerns History of Present Illness: No overnight events. Had percutaneous drain placed this morning in L abdominal wall collection. 200ml initially out, seropurulent, cultured. Now drain is putting out thin, light brown, feculent-smelling fluid. About another 200ml since IR. Being flushed with 5ml saline q8H. Dressings done by nursing - reportedly no green on midline dressings today. - Current Medication List Current Medications: Active Medications Acetaminophen/Codeine Phosphate (Tylenol # 3 -) 1 tab PO Q6H PRN PRN Reason: PAIN LEVEL 1-5 Last Admin: 01/21/17 19:43 Dose: 1 tab Acetaminophen/Codeine Phosphate (Tylenol # 3 -) 2 tab PO Q6H PRN PRN Reason: PAIN LEVEL 6-10 Albuterol Sulfate (Ventolin 0.5% -) 1 amp NEB Q8H PRN PRN Reason: wheezing Anastrozole (Arimidex -) 1 mg PO DAILY [facility] Last Admin: 01/21/17 11:48 Dose: 1 mg Atorvastatin Calcium (Lipitor -) 20 mg PO HS [facility] Last Admin: 01/20/17 22:49 Dose: 20 mg Bupropion HCl (Wellbutrin -) 150 mg PO BID [facility] Last Admin: 01/21/17 11:48 Dose: 150 mg Carvedilol (Coreg -) 25 mg PO BID [facility] Last Admin: 01/21/17 11:47 Dose: 25 mg Cyanocobalamin (Vitamin B12 -) 1,000 mcg PO DAILY [facility] Last Admin: 01/21/17 11:47 Dose: 1,000 mcg Furosemide (Lasix -) 20 mg PO DAILY [facility] Last Admin: 01/21/17 11:47 Dose: 20 mg Sodium Chloride (Normal Saline -) 1,000 mls @ 50 mls/hr IV ASDIR [facility] Stop: 01/23/17 08:14 Last Admin: 01/21/17 13:01 Dose: 50 mls/hr Insulin Aspart (Novolog Vial Sliding Scale -) 1 vial SQ TIDAC [facility] PRN Reason: Protocol Last Admin: 01/21/17 17:33 Dose: Not Given Mometasone Furoate (Asmanex 110mcg -) 1 puff IH BID [facility] Last Admin: 01/21/17 11:47 Dose: 1 puff Nicotine (Nicoderm Patch -) 7 mg TD DAILY [facility] Last Admin: 01/21/17 11:47 Dose: Not Given Pantoprazole Sodium (Protonix -) 40 mg PO DAILY [facility] Last Admin: 01/21/17 11:47 Dose: 40 mg Sodium Hypochlorite (Dakin's Solution 0.25% (Half-Strength) -) 1 applic TP BID [facility] Valsartan (Diovan -) 80 mg PO DAILY [facility] Last Admin: 01/21/17 11:47 Dose: 80 mg Warfarin Sodium (Coumadin -) 3 mg PO DAILY@1800 [facility] Last Admin: 01/21/17 17:34 Dose: 3 mg Zolpidem Tartrate (Ambien -) 5 mg PO HS PRN - Objective Vital Signs: Vital Signs Temperature 98.1 F 01/21/17 17:00 Pulse Rate 83 01/21/17 17:00 Respiratory Rate 18 01/21/17 17:00 Blood Pressure 125/50 01/21/17 17:00 O2 Sat by Pulse Oximetry (%) 96 01/21/17 10:56 Constitutional: Yes: No Distress, Calm, Obese Gastrointestinal: Yes: Soft, Abdomen, Obese, Tenderness (at new drain site), Other (colostomy p/p/p of liquid/soft brown stool; bag still intact; midline dressing with small amt of brown staining on edge next to stoma bag, no green visible, wounds clean and pink; RLQ drain site with some strikethrough on dressing; IR drain secure, bulb with thin brown drainage, starts filling after stripping tubing) Genitourinary: Yes: Incontinence (in diaper) Extremities: No: Cool, Cyanosis Wound/Incision: Yes: Dressing Removed (RLQ drain site with packing removed - serosang on strip, minimal to no purulence noted, no leno drainage; repacked with 1/4" plain packing into 10:00 tunnel near base of wound, and up from bottom to skin level, covered with folded gauze and tape. See abdomen section for midline wound note.), Unapproximated (midline, RLQ) Neurological: Yes: Alert, Oriented Psychiatric: Yes: Alert, Oriented, Other (depressed) Labs: CBC, BMP 01/21/17 06:30 01/21/17 06:30 INR, PTT INR 1.89 (0.82-1.09) H 01/21/17 06:30 Problem List - Problems (1) Open wound of abdominal wall, anterior, complicated Assessment/Plan: Midline wounds changed and repacked with Dakin's-dampened Kerlix gauze - to continue BID. RLQ drain site repacked with 1/4" plain ribbon gauze, including small side tract at 10:00. Will continue daily for now. Dr. Imer Tinsley will cover for me until Thursday. Code(s): S31.109A - UNSP OPN WND ABD WALL, UNSP Q W/O PENET PERIT CAV, INIT Qualifiers: Encounter type: subsequent encounter Qualified Code(s): S31.109D - Unspecified open wound of abdominal wall, unspecified quadrant without penetration into peritoneal cavity, subsequent encounter (2) Disruption of internal operation (surgical) wound, not elsewhere classified , subsequent encounter Assessment/Plan: wound bases granulating well, continue dressing changes. Code(s): T81.32XD - DISRUPTION OF INTERNAL OPERATION (SURGICAL) WOUND, NEC, SUBS (3) Colostomy in place Assessment/Plan: colostomy appliance reinforced yesterday medially Base hole needs to be cut to fit skin edge at stoma exactly and no bigger, against one edge, not centered. Skin prep peristomally and base pressed down against skin from stoma/skin edge outward to ensure good seal. Only change when leaking. Appliance may need to be changed tomorrow. Code(s): Z93.3 - COLOSTOMY STATUS (4) Protein calorie malnutrition Assessment/Plan: strawberry Glucerna supplements with each meal - pt does not eat well in hospital. Code(s): E46 - UNSPECIFIED PROTEIN-CALORIE MALNUTRITION Qualifiers: Protein-calorie malnutrition severity: unspecified severity Qualified Code( s): E46 - Unspecified protein-calorie malnutrition (5) Generalized weakness Assessment/Plan: PT to continue and work with patient on stairs as well as walking. She will need to be able to navigate home stairs daily on discharge to keep up conditioning and leave home for appointments. Pt should be up/OOB at least to chair for meals and as often as able, with ambulation with assistance. Code(s): R53.1 - WEAKNESS (6) Muscular deconditioning Code(s): R29.898 - OTH SYMPTOMS AND SIGNS INVOLVING THE MUSCULOSKELETAL SYSTEM (7) Anemia Code(s): D64.9 - ANEMIA, UNSPECIFIED Qualifiers: Anemia type: unspecified type Qualified Code(s): D64.9 - Anemia, unspecified (8) H/O: CVA (cerebrovascular accident) Code(s): Z86.73 - PRSNL HX OF TIA (TIA), AND CEREB INFRC W/O RESID DEFICITS (9) Anticoagulant long-term use Assessment/Plan: INR subtherapeutic. on coumadin. Code(s): Z79.01 - ANTIQUE CLOCK REPAIRER (CURRENT) USE OF 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 (10) COPD without exacerbation Assessment/Plan: on asmanex bid Code(s): J44.9 - CHRONIC OBSTRUCTIVE PULMONARY DISEASE, UNSPECIFIED (11) Cancer of left breast Assessment/Plan: on anastrozole Code(s): C50.912 - MALIGNANT NEOPLASM OF UNSPECIFIED SITE OF LEFT FEMALE BREAST Qualifiers: Breast location: upper outer quadrant of breast Estrogen receptor status: positive Patient sex: female Qualified Code(s): C50.412 - Malignant neoplasm of upper-outer quadrant of left female breast (12) Depression Assessment/Plan: wellbutrin increased to 150mg bid Code(s): F32.9 - MAJOR DEPRESSIVE DISORDER, SINGLE EPISODE, UNSPECIFIED Qualifiers: Depression Type: reactive depression Qualified Code(s): F32.9 - Major depressive disorder, single episode, unspecified (13) Diabetes mellitus type 2, noninsulin dependent Assessment/Plan: not requiring medication at this time, on diabetic diet Code(s): E11.9 - TYPE 2 DIABETES MELLITUS WITHOUT COMPLICATIONS (14) Hypertension Assessment/Plan: on coreg and diovan, on lasix Code(s): I10 - ESSENTIAL (PRIMARY) HYPERTENSION Qualifiers: Hypertension type: essential hypertension Qualified Code(s): I10 - Essential (primary) hypertension (15) CHF (congestive heart failure) Assessment/Plan: on coreg and lasix, no acute exacerbation Code(s): I50.9 - HEART FAILURE, UNSPECIFIED Qualifiers: Congestive heart failure type: systolic Congestive heart failure chronicity : chronic Qualified Code(s): I50.22 - Chronic systolic (congestive) heart failure (16) ATN (acute tubular necrosis) Assessment/Plan: IV hydration - NS at low rate for now Code(s): N17.0 - ACUTE KIDNEY FAILURE WITH TUBULAR NECROSIS (17) Abdominal wall abscess Assessment/Plan: s/p IR perc drain placement feculent output - may represent fistula to bowel abscessogram may be done at some point to clarify source, tract Code(s): L02.211 - CUTANEOUS ABSCESS OF ABDOMINAL WALL
[2017-01-21] MEDS: ATORVASTATIN CA 20 MG TABLET (FP) PO SCH (21:18)
[2017-01-21] MEDS: ZOLPIDEM TARTRATE 5 MG TABLET PO PRN (21:18)
[2017-01-22] MEDS: INSULIN SLIDING SCALE (NOVOLOG) 1 VIAL SQ SCH ×3 (06:05→17:29)
--- NOTE | 2017-01-22 07:52 | PN ---
Progress Note, Physician History of Present Illness: 66yo female with multiple medical problems, s/p Dwaine's procedure 12/10/16 for perforated sigmoid colon, with midline abdominal wounds left open to heal by secondary intention, complicated by fascial dehiscence and reopening of RLQ drain tract. She had percutaneous drain placed this morning in left abdominal wall collection. 200ml initially out, seropurulent, cultured. Now drain is putting out thin, light brown, feculent-smelling fluid. - Current Medication List Current Medications: Active Medications Acetaminophen/Codeine Phosphate (Tylenol # 3 -) 1 tab PO Q6H PRN PRN Reason: PAIN LEVEL 1-5 Last Admin: 01/21/17 19:43 Dose: 1 tab Acetaminophen/Codeine Phosphate (Tylenol # 3 -) 2 tab PO Q6H PRN PRN Reason: PAIN LEVEL 6-10 Albuterol Sulfate (Ventolin 0.5% -) 1 amp NEB Q8H PRN PRN Reason: wheezing Anastrozole (Arimidex -) 1 mg PO DAILY [facility] Last Admin: 01/21/17 11:48 Dose: 1 mg Atorvastatin Calcium (Lipitor -) 20 mg PO HS [facility] Last Admin: 01/21/17 21:18 Dose: 20 mg Bupropion HCl (Wellbutrin -) 150 mg PO BID [facility] Last Admin: 01/21/17 21:18 Dose: 150 mg Carvedilol (Coreg -) 25 mg PO BID [facility] Last Admin: 01/21/17 21:18 Dose: 25 mg Cyanocobalamin (Vitamin B12 -) 1,000 mcg PO DAILY [facility] Last Admin: 01/21/17 11:47 Dose: 1,000 mcg Furosemide (Lasix -) 20 mg PO DAILY [facility] Last Admin: 01/21/17 11:47 Dose: 20 mg Sodium Chloride (Normal Saline -) 1,000 mls @ 50 mls/hr IV ASDIR [facility] Stop: 01/23/17 08:14 Last Admin: 01/21/17 13:01 Dose: 50 mls/hr Insulin Aspart (Novolog Vial Sliding Scale -) 1 vial SQ TIDAC [facility] PRN Reason: Protocol Last Admin: 01/22/17 06:05 Dose: Not Given Mometasone Furoate (Asmanex 110mcg -) 1 puff IH BID [facility] Last Admin: 01/21/17 21:18 Dose: 1 puff Nicotine (Nicoderm Patch -) 7 mg TD DAILY [facility] Last Admin: 01/21/17 11:47 Dose: Not Given Pantoprazole Sodium (Protonix -) 40 mg PO DAILY [facility] Last Admin: 01/21/17 11:47 Dose: 40 mg Sodium Hypochlorite (Dakin's Solution 0.25% (Half-Strength) -) 1 applic TP BID [facility] Last Admin: 01/21/17 22:08 Dose: 1 applic Valsartan (Diovan -) 80 mg PO DAILY [facility] Last Admin: 01/21/17 11:47 Dose: 80 mg Warfarin Sodium (Coumadin -) 3 mg PO DAILY@1800 [facility] Last Admin: 01/21/17 17:34 Dose: 3 mg Zolpidem Tartrate (Ambien -) 5 mg PO HS PRN Last Admin: 01/21/17 21:18 Dose: 5 mg - Objective Vital Signs: Vital Signs Temperature 98.3 F 01/22/17 06:00 Pulse Rate 82 01/22/17 06:00 Respiratory Rate 18 01/22/17 06:00 Blood Pressure 129/63 01/22/17 06:00 O2 Sat by Pulse Oximetry (%) 97 01/21/17 21:00 Vital Signs Period Temp Pulse Resp BP Sys/Holt Pulse Ox Last 24 Hr 97.3 F-98.5 F 77-91 18-21 106-147/50-91 96-97 Intake & Output 01/21/17 01/21/17 01/22/17 15:59 23:59 07:59 Intake Total 300 350 600 Output Total 195 Balance 300 155 600 Intake: IV 350 600 Normal Saline - 1,000 ml 350 600 @ 50 mls/hr IV ASDIR [facility] Rx#:[id number] Oral 300 Output: Drainage 195 Left Abdomen 60 Left Lateral Abdomen 135 Other: Voiding Method Diaper Incontinent # Unmeasured Voids Void 2 1 Bowel Movement No Constitutional: Yes: No Distress, Calm, Obese Eyes: Yes: Conjunctiva Clear, EOM Intact HENT: Yes: Atraumatic, Normocephalic Neck: Yes: Supple, Trachea Midline Cardiovascular: Yes: Regular Rate and Rhythm, S1, Other Respiratory: Yes: Regular Gastrointestinal: Yes: Soft, Abdomen, Obese, Hyperactive Bowel Sounds, Other ( colostomy and complex abdominal wounds) Genitourinary: No: CVA Tenderness - Left, CVA Tenderness - Right Musculoskeletal: No: Muscle Pain, Muscle Weakness Extremities: No: Cold, Cool Peripheral Pulses WNL: No Wound/Incision: Yes: Unapproximated, Other (Colosomy Left abodomen formed brown , perc IR drain Left abodomen (output 135ml)) Neurological: Yes: Alert, Oriented Psychiatric: Yes: Alert, Oriented Labs: CBC, BMP 01/21/17 06:30 01/21/17 06:30 INR, PTT INR 1.89 (0.82-1.09) H 01/21/17 06:30 Microbiology 01/21/17 11:00 Abdomen Gram Stain - Final 01/17/17 16:30 Urine - Urine Clean Catch Urine Culture - Final NO GROWTH OBTAINED Abnormal Lab Results 01/21/17 06:30 ESR 124 H Problem List - Problems (1) Abdominal wall abscess Assessment/Plan: 66 yo female s/p Hartmans and dehissance s/p drainage of left abdominal collection output becoming more feculent in appearence, gram stain was multi organism including fecal coliforms. Midline wounds changed and repacked with Dakin's-dampened Kerlix gauze - to continue BID. RLQ drain site repacked with 1/4" plain ribbon gauze, including small side tract at 10:00. Will continue daily for now. consider contrast study via IR drain on Thursday protein supplementation will follow Code(s): L02.211 - CUTANEOUS ABSCESS OF ABDOMINAL WALL (2) Open wound of abdominal wall, anterior, complicated Code(s): S31.109A - UNSP OPN WND ABD WALL, UNSP Q W/O PENET PERIT CAV, INIT Qualifiers: Encounter type: subsequent encounter Qualified Code(s): S31.109D - Unspecified open wound of abdominal wall, unspecified quadrant without penetration into peritoneal cavity, subsequent encounter (3) Protein calorie malnutrition Code(s): E46 - UNSPECIFIED PROTEIN-CALORIE MALNUTRITION Qualifiers: Protein-calorie malnutrition severity: unspecified severity Qualified Code( s): E46 - Unspecified protein-calorie malnutrition
[2017-01-22 08:04] LABS: INR 2.17 (0.82-1.09); PROTHROMBIN TIME (PATIENT) 24.5 SEC (9.98-11.88)
[2017-01-22] MEDS ORDERED: PT OWN MED DRAWER 7, Y5N ONE (09:57)
--- NOTE | 2017-01-22 10:30 | PN ---
Progress Note, Physician History of Present Illness: Pt w/o fever, chills, abd pain, N, V. Pt w/o SOB, CP, palp. Pt with decreased appetite. - Current Medication List Current Medications: Active Medications Acetaminophen/Codeine Phosphate (Tylenol # 3 -) 1 tab PO Q6H PRN PRN Reason: PAIN LEVEL 1-5 Last Admin: 01/21/17 19:43 Dose: 1 tab Acetaminophen/Codeine Phosphate (Tylenol # 3 -) 2 tab PO Q6H PRN PRN Reason: PAIN LEVEL 6-10 Albuterol Sulfate (Ventolin 0.5% -) 1 amp NEB Q8H PRN PRN Reason: wheezing Anastrozole (Arimidex -) 1 mg PO DAILY [facility] Last Admin: 01/21/17 11:48 Dose: 1 mg Atorvastatin Calcium (Lipitor -) 20 mg PO HS [facility] Last Admin: 01/21/17 21:18 Dose: 20 mg Bupropion HCl (Wellbutrin -) 150 mg PO BID [facility] Last Admin: 01/21/17 21:18 Dose: 150 mg Carvedilol (Coreg -) 25 mg PO BID [facility] Last Admin: 01/21/17 21:18 Dose: 25 mg Cyanocobalamin (Vitamin B12 -) 1,000 mcg PO DAILY [facility] Last Admin: 01/21/17 11:47 Dose: 1,000 mcg Furosemide (Lasix -) 20 mg PO DAILY [facility] Last Admin: 01/21/17 11:47 Dose: 20 mg Sodium Chloride (Normal Saline -) 1,000 mls @ 50 mls/hr IV ASDIR [facility] Stop: 01/23/17 08:14 Last Admin: 01/21/17 13:01 Dose: 50 mls/hr Insulin Aspart (Novolog Vial Sliding Scale -) 1 vial SQ TIDAC [facility] PRN Reason: Protocol Last Admin: 01/22/17 06:05 Dose: Not Given Mometasone Furoate (Asmanex 110mcg -) 1 puff IH BID [facility] Last Admin: 01/21/17 21:18 Dose: 1 puff Nicotine (Nicoderm Patch -) 7 mg TD DAILY [facility] Last Admin: 01/21/17 11:47 Dose: Not Given Pantoprazole Sodium (Protonix -) 40 mg PO DAILY [facility] Last Admin: 01/21/17 11:47 Dose: 40 mg Sodium Hypochlorite (Dakin's Solution 0.25% (Half-Strength) -) 1 applic TP BID [facility] Last Admin: 01/21/17 22:08 Dose: 1 applic Valsartan (Diovan -) 80 mg PO DAILY [facility] Last Admin: 01/21/17 11:47 Dose: 80 mg Warfarin Sodium (Coumadin -) 3 mg PO DAILY@1800 [facility] Last Admin: 01/21/17 17:34 Dose: 3 mg Zolpidem Tartrate (Ambien -) 5 mg PO HS PRN Last Admin: 01/21/17 21:18 Dose: 5 mg - Objective Vital Signs: Vital Signs Temperature 98.3 F 01/22/17 06:00 Pulse Rate 82 01/22/17 06:00 Respiratory Rate 18 01/22/17 06:00 Blood Pressure 129/63 01/22/17 06:00 O2 Sat by Pulse Oximetry (%) 97 01/21/17 21:00 Constitutional: Yes: No Distress, Calm Cardiovascular: Yes: Regular Rate and Rhythm, S1, S2 Respiratory: Yes: Regular, CTA Bilaterally Gastrointestinal: Yes: Normal Bowel Sounds, Soft, Tenderness, Other (left side draining tube) Edema: No Neurological: Yes: Alert, Oriented Labs: CBC, BMP 01/21/17 06:30 01/21/17 06:30 INR, PTT INR 2.17 (0.82-1.09) H 01/22/17 06:55 Problem List - Problems (1) Generalized weakness Code(s): R53.1 - WEAKNESS (2) Muscular deconditioning Code(s): R29.898 - OTH SYMPTOMS AND SIGNS INVOLVING THE MUSCULOSKELETAL SYSTEM (3) COPD (chronic obstructive pulmonary disease) Code(s): J44.9 - CHRONIC OBSTRUCTIVE PULMONARY DISEASE, UNSPECIFIED Qualifiers: COPD type: unspecified COPD Qualified Code(s): J44.9 - Chronic obstructive pulmonary disease, unspecified (4) Diabetes mellitus type 2, noninsulin dependent Code(s): E11.9 - TYPE 2 DIABETES MELLITUS WITHOUT COMPLICATIONS (5) H/O: CVA (cerebrovascular accident) Code(s): Z86.73 - PRSNL HX OF TIA (TIA), AND CEREB INFRC W/O RESID DEFICITS (6) Open wound of abdominal wall, anterior, complicated Code(s): S31.109A - UNSP OPN WND ABD WALL, UNSP Q W/O PENET PERIT CAV, INIT Qualifiers: Encounter type: subsequent encounter Qualified Code(s): S31.109D - Unspecified open wound of abdominal wall, unspecified quadrant without penetration into peritoneal cavity, subsequent encounter (7) Perforated sigmoid colon Code(s): K63.1 - PERFORATION OF INTESTINE (NONTRAUMATIC) (8) Protein calorie malnutrition Code(s): E46 - UNSPECIFIED PROTEIN-CALORIE MALNUTRITION Qualifiers: Protein-calorie malnutrition severity: unspecified severity Qualified Code( s): E46 - Unspecified protein-calorie malnutrition (9) Hyponatremia Code(s): E87.1 - HYPO-OSMOLALITY AND HYPONATREMIA (10) Hypoalbuminemia Code(s): E88.09 - OTH DISORDERS OF PLASMA-PROTEIN METABOLISM, NEC (11) Abdominal wall abscess Code(s): L02.211 - CUTANEOUS ABSCESS OF ABDOMINAL WALL (12) Liver lesion, left lobe Code(s): K76.89 - OTHER SPECIFIED DISEASES OF LIVER (13) Liver lesion, right lobe Code(s): K76.89 - OTHER SPECIFIED DISEASES OF LIVER Assessment/Plan Eo f/u with SX. To monitor INR. PT Cont meds; pain medication PRN. IVF (pt had [address] scan w IVC i 48 hours). AM labs. Pt's at bedside, case was reviewed, all questions were answered. Case was d/w pt's nurse.
[2017-01-22] MEDS: buPROPion HCL 75 MG TABLET PO SCH ×2 (10:51→21:36)
[2017-01-22] MEDS: FUROSEMIDE 20 MG TABLET (FP) PO SCH (10:52)
[2017-01-22] MEDS: ANASTROZOLE 1 MG TABLET PO SCH (10:52)
[2017-01-22] MEDS: PANTOPRAZOLE 40 MG TABLET (FP) PO SCH (10:52)
[2017-01-22] MEDS: VALSARTAN 80 MG TABLET (UD) PO SCH (10:52)
[2017-01-22] MEDS: CARVEDILOL 25 MG TABLET (FP) PO SCH ×2 (10:52→21:35)
[2017-01-22] MEDS: MOMETASONE FUROATE 110 MCG/IH INHALER IH SCH ×2 (10:53→21:35)
[2017-01-22] MEDS: CYANOCOBALAMIN 1,000 MCG TABLET (FP) PO SCH (10:53)
[2017-01-22] MEDS: NICOTINE 7 MG/24 HOURS TOPICAL PATCH TD SCH (10:53)
[2017-01-22] MEDS: SODIUM CHLORIDE 1,000 ML IV SCH (12:03)
[2017-01-22] MEDS: ACETAMINOPHEN WITH CODEINE 300MG/30MG TABLET PO PRN ×2 (14:21→22:00)
[2017-01-22] MEDS: SODIUM HYPOCHLORITE 0.25%- 473 ML BULK BOTTLE TP SCH ×2 (16:03→21:37)
[2017-01-22] MEDS: WARFARIN NA 3 MG TABLET PO SCH (17:29)
[2017-01-22] MEDS: ATORVASTATIN CA 20 MG TABLET (FP) PO SCH (21:35)
[2017-01-22] MEDS: ZOLPIDEM TARTRATE 5 MG TABLET PO PRN (21:37)
[2017-01-23] MEDS: INSULIN SLIDING SCALE (NOVOLOG) 1 VIAL SQ SCH ×3 (06:56→17:31)
--- NOTE | 2017-01-23 07:18 | PN ---
Progress Note, Physician History of Present Illness: 66yo female with multiple medical problems, s/p Dwaine's procedure 12/10/16 for perforated sigmoid colon, with midline abdominal wounds left open to heal by secondary intention, complicated by fascial dehiscence and reopening of RLQ drain tract. She had percutaneous drain placed and is now draining a light brown feculent-smelling fluid. No complaints overnight. - Current Medication List Current Medications: Active Medications Acetaminophen/Codeine Phosphate (Tylenol # 3 -) 1 tab PO Q6H PRN PRN Reason: PAIN LEVEL 1-5 Last Admin: 01/22/17 22:00 Dose: 1 tab Acetaminophen/Codeine Phosphate (Tylenol # 3 -) 2 tab PO Q6H PRN PRN Reason: PAIN LEVEL 6-10 Anastrozole (Arimidex -) 1 mg PO DAILY [facility] Last Admin: 01/22/17 10:52 Dose: 1 mg Atorvastatin Calcium (Lipitor -) 20 mg PO HS [facility] Last Admin: 01/22/17 21:35 Dose: 20 mg Bupropion HCl (Wellbutrin -) 150 mg PO BID [facility] Last Admin: 01/22/17 21:36 Dose: 150 mg Carvedilol (Coreg -) 25 mg PO BID [facility] Last Admin: 01/22/17 21:35 Dose: 25 mg Cyanocobalamin (Vitamin B12 -) 1,000 mcg PO DAILY [facility] Last Admin: 01/22/17 10:53 Dose: 1,000 mcg Furosemide (Lasix -) 20 mg PO DAILY [facility] Last Admin: 01/22/17 10:52 Dose: 20 mg Sodium Chloride (Normal Saline -) 1,000 mls @ 50 mls/hr IV ASDIR [facility] Stop: 01/23/17 08:14 Last Admin: 01/22/17 12:03 Dose: 50 mls/hr Insulin Aspart (Novolog Vial Sliding Scale -) 1 vial SQ TIDAC [facility] PRN Reason: Protocol Last Admin: 01/23/17 06:56 Dose: Not Given Mometasone Furoate (Asmanex 110mcg -) 1 puff IH BID [facility] Last Admin: 01/22/17 21:35 Dose: 1 puff Nicotine (Nicoderm Patch -) 7 mg TD DAILY [facility] Last Admin: 01/22/17 10:53 Dose: Not Given Pantoprazole Sodium (Protonix -) 40 mg PO DAILY [facility] Last Admin: 01/22/17 10:52 Dose: 40 mg Sodium Hypochlorite (Dakin's Solution 0.25% (Half-Strength) -) 1 applic TP BID [facility] Last Admin: 01/22/17 21:37 Dose: 1 applic Valsartan (Diovan -) 80 mg PO DAILY [facility] Last Admin: 01/22/17 10:52 Dose: 80 mg Warfarin Sodium (Coumadin -) 3 mg PO DAILY@1800 [facility] Last Admin: 01/22/17 17:29 Dose: 3 mg Zolpidem Tartrate (Ambien -) 5 mg PO HS PRN Last Admin: 01/22/17 21:37 Dose: 5 mg - Objective Vital Signs: Vital Signs Temperature 97.7 F 01/23/17 06:00 Pulse Rate 81 01/23/17 06:00 Respiratory Rate 18 01/23/17 06:00 Blood Pressure 138/65 01/23/17 06:00 O2 Sat by Pulse Oximetry (%) 97 01/22/17 21:00 Vital Signs Period Temp Pulse Resp BP Sys/Holt Pulse Ox Last 24 Hr 97.7 F-98.5 F 75-82 18-18 119-144/48-65 97-97 Intake & Output 01/22/17 01/23/17 01/23/17 23:59 07:59 15:59 Intake Total 240 550 Output Total 60 25 Balance 180 525 Intake: IV 550 Normal Saline - 1,000 ml 550 @ 50 mls/hr IV ASDIR [facility] Rx#:[id number] Oral 240 Output: Drainage 60 25 Left Abdomen 60 25 Other: Voiding Method Diaper # Unmeasured Voids Void 1 Constitutional: Yes: Well Nourished, No Distress, Obese Eyes: Yes: Conjunctiva Clear, EOM Intact HENT: Yes: Atraumatic, Normocephalic Neck: Yes: Supple, Trachea Midline Cardiovascular: Yes: Regular Rate and Rhythm, S1, S2. No: Murmur Respiratory: Yes: Regular, CTA Bilaterally. No: Wheezes Gastrointestinal: Yes: Normal Bowel Sounds, Soft, Abdomen, Obese, Other (open midline, RLQ has packed drain site, LLQ has colostomy and IR drain) Wound/Incision: Yes: Clean/Dry, Unapproximated, Other. No: Reddened Neurological: Yes: Alert, Oriented Psychiatric: Yes: Alert, Oriented Labs: CBC, BMP 01/21/17 06:30 01/21/17 06:30 CBC, BMP 01/23/17 07:23 01/23/17 07:23 Abnormal Lab Results 01/23/17 01/23/17 01/23/17 07:23 07:23 07:23 RBC 3.06 L Hgb 9.1 L Hct 28.2 L MPV 7.0 L PT with INR 24.10 H INR 2.13 H Anion Gap 7 L Calcium 8.0 L AST 8 L Total Protein 5.7 L Albumin 2.1 L Problem List - Problems (1) Abdominal wall abscess Assessment/Plan: 66 yo female s/p Hartmans and dehissance s/p drainage of left abdominal collection output becoming more feculent in appearence, gram stain was multi organism including fecal coliforms. Midline wounds changed and repacked with Dakin's-dampened Kerlix gauze - to continue BID. RLQ drain site repacked with 1/4" plain ribbon gauze, including small side tract at 10:00. Will continue daily for now. consider contrast study via IR drain on Thursday Add protein supplementation will follow Code(s): L02.211 - CUTANEOUS ABSCESS OF ABDOMINAL WALL (2) Open wound of abdominal wall, anterior, complicated Code(s): S31.109A - UNSP OPN WND ABD WALL, UNSP Q W/O PENET PERIT CAV, INIT Qualifiers: Encounter type: subsequent encounter Qualified Code(s): S31.109D - Unspecified open wound of abdominal wall, unspecified quadrant without penetration into peritoneal cavity, subsequent encounter (3) Protein calorie malnutrition Code(s): E46 - UNSPECIFIED PROTEIN-CALORIE MALNUTRITION Qualifiers: Protein-calorie malnutrition severity: unspecified severity Qualified Code( s): E46 - Unspecified protein-calorie malnutrition
[2017-01-23 08:01] LABS: MCH 29.8 pg (25.7-33.7); MCHC 32.3 g/dl (32.0-36.0); MEAN CELL VOLUME 92.2 fl (80-96); PLATELET COUNT 421 K/MM3 (134-434); RDW 15.5 % (11.6-15.6); WHITE BLOOD COUNT 6.2 K/mm3 (4.0-10.0)
[2017-01-23 08:17] LABS: INR 2.13 (0.82-1.09); PROTHROMBIN TIME (PATIENT) 24.1 SEC (9.98-11.88)
[2017-01-23 08:29] LABS: ALBUMIN 2.1 g/dl (3.4-5.0); ANION GAP 7 (8-16); CO2 26 mmol/L (21-32); CREATININE 0.8 mg/dL (0.55-1.02); GLUCOSE,RANDOM 104 mg/dL (74-106); SGOT/AST 8 U/L (15-37); SGPT/ALT 15 U/L (12-78)
[2017-01-23 08:31] LABS: ALK PHOS 57 U/L (45-117); BILIRUBIN,TOTAL 0.3 mg/dL (0.2-1.0); TOT PROT 5.7 g/dl (6.4-8.2)
[2017-01-23] MEDS: ACETAMINOPHEN WITH CODEINE 300MG/30MG TABLET PO PRN ×2 (09:54→21:55)
[2017-01-23] MEDS ORDERED: PT OWN MED DRAWER 7, Y5N ONE ×2 (10:03→19:56)
[2017-01-23] MEDS: ANASTROZOLE 1 MG TABLET PO SCH (10:17)
[2017-01-23] MEDS: MOMETASONE FUROATE 110 MCG/IH INHALER IH SCH ×2 (10:17→22:36)
[2017-01-23] MEDS: VALSARTAN 80 MG TABLET (UD) PO SCH (10:18)
[2017-01-23] MEDS: CARVEDILOL 25 MG TABLET (FP) PO SCH ×2 (10:18→21:55)
[2017-01-23] MEDS: SODIUM HYPOCHLORITE 0.25%- 473 ML BULK BOTTLE TP SCH ×2 (10:18→21:58)
[2017-01-23] MEDS: FUROSEMIDE 20 MG TABLET (FP) PO SCH (10:19)
[2017-01-23] MEDS: CYANOCOBALAMIN 1,000 MCG TABLET (FP) PO SCH (10:19)
[2017-01-23] MEDS: PANTOPRAZOLE 40 MG TABLET (FP) PO SCH (10:19)
[2017-01-23] MEDS: NICOTINE 7 MG/24 HOURS TOPICAL PATCH TD SCH (10:19)
[2017-01-23] MEDS: buPROPion HCL 75 MG TABLET PO SCH ×2 (10:20→21:56)
--- NOTE | 2017-01-23 13:05 | PN ---
Progress Note, Physician History of Present Illness: Pt w/o fever, chills, abd pain, N, V. Pt w/o SOB, CP, palp. Pt with decreased appetite, slightly better. - Current Medication List Current Medications: Active Medications Acetaminophen/Codeine Phosphate (Tylenol # 3 -) 1 tab PO Q6H PRN PRN Reason: PAIN LEVEL 1-5 Last Admin: 01/23/17 09:54 Dose: 1 tab Acetaminophen/Codeine Phosphate (Tylenol # 3 -) 2 tab PO Q6H PRN PRN Reason: PAIN LEVEL 6-10 Anastrozole (Arimidex -) 1 mg PO DAILY [facility] Last Admin: 01/23/17 10:17 Dose: 1 mg Atorvastatin Calcium (Lipitor -) 20 mg PO HS [facility] Last Admin: 01/22/17 21:35 Dose: 20 mg Bupropion HCl (Wellbutrin -) 150 mg PO BID [facility] Last Admin: 01/23/17 10:20 Dose: 150 mg Carvedilol (Coreg -) 25 mg PO BID [facility] Last Admin: 01/23/17 10:18 Dose: 25 mg Cyanocobalamin (Vitamin B12 -) 1,000 mcg PO DAILY [facility] Last Admin: 01/23/17 10:19 Dose: 1,000 mcg Furosemide (Lasix -) 20 mg PO DAILY [facility] Last Admin: 01/23/17 10:19 Dose: 20 mg Insulin Aspart (Novolog Vial Sliding Scale -) 1 vial SQ TIDAC [facility] PRN Reason: Protocol Last Admin: 01/23/17 11:55 Dose: Not Given Mometasone Furoate (Asmanex 110mcg -) 1 puff IH BID [facility] Last Admin: 01/23/17 10:17 Dose: 1 puff Nicotine (Nicoderm Patch -) 7 mg TD DAILY [facility] Last Admin: 01/23/17 10:19 Dose: Not Given Pantoprazole Sodium (Protonix -) 40 mg PO DAILY [facility] Last Admin: 01/23/17 10:19 Dose: 40 mg Sodium Hypochlorite (Dakin's Solution 0.25% (Half-Strength) -) 1 applic TP BID [facility] Last Admin: 01/23/17 10:18 Dose: 1 applic Valsartan (Diovan -) 80 mg PO DAILY [facility] Last Admin: 01/23/17 10:18 Dose: 80 mg Warfarin Sodium (Coumadin -) 3 mg PO DAILY@1800 [facility] Last Admin: 01/22/17 17:29 Dose: 3 mg Zolpidem Tartrate (Ambien -) 5 mg PO HS PRN Last Admin: 01/22/17 21:37 Dose: 5 mg - Objective Vital Signs: Vital Signs Temperature 97.7 F 01/23/17 06:00 Pulse Rate 81 01/23/17 06:00 Respiratory Rate 18 01/23/17 06:00 Blood Pressure 138/65 01/23/17 06:00 O2 Sat by Pulse Oximetry (%) 97 01/22/17 21:00 Constitutional: Yes: No Distress, Calm Cardiovascular: Yes: Regular Rate and Rhythm, S1, S2 Respiratory: Yes: Regular, CTA Bilaterally, Other (coarse at bases) Gastrointestinal: Yes: Normal Bowel Sounds, Soft. No: Tenderness Edema: No Neurological: Yes: Alert, Oriented Labs: CBC, BMP 01/23/17 07:23 01/23/17 07:23 INR, PTT INR 2.13 (0.82-1.09) H 01/23/17 07:23 Problem List - Problems (1) Generalized weakness Code(s): R53.1 - WEAKNESS (2) Muscular deconditioning Code(s): R29.898 - OTH SYMPTOMS AND SIGNS INVOLVING THE MUSCULOSKELETAL SYSTEM (3) COPD (chronic obstructive pulmonary disease) Code(s): J44.9 - CHRONIC OBSTRUCTIVE PULMONARY DISEASE, UNSPECIFIED Qualifiers: COPD type: unspecified COPD Qualified Code(s): J44.9 - Chronic obstructive pulmonary disease, unspecified (4) Diabetes mellitus type 2, noninsulin dependent Code(s): E11.9 - TYPE 2 DIABETES MELLITUS WITHOUT COMPLICATIONS (5) H/O: CVA (cerebrovascular accident) Code(s): Z86.73 - PRSNL HX OF TIA (TIA), AND CEREB INFRC W/O RESID DEFICITS (6) Open wound of abdominal wall, anterior, complicated Code(s): S31.109A - UNSP OPN WND ABD WALL, UNSP Q W/O PENET PERIT CAV, INIT Qualifiers: Encounter type: subsequent encounter Qualified Code(s): S31.109D - Unspecified open wound of abdominal wall, unspecified quadrant without penetration into peritoneal cavity, subsequent encounter (7) Perforated sigmoid colon Code(s): K63.1 - PERFORATION OF INTESTINE (NONTRAUMATIC) (8) Protein calorie malnutrition Code(s): E46 - UNSPECIFIED PROTEIN-CALORIE MALNUTRITION Qualifiers: Protein-calorie malnutrition severity: unspecified severity Qualified Code( s): E46 - Unspecified protein-calorie malnutrition (9) Hyponatremia Code(s): E87.1 - HYPO-OSMOLALITY AND HYPONATREMIA (10) Hypoalbuminemia Code(s): E88.09 - OTH DISORDERS OF PLASMA-PROTEIN METABOLISM, NEC (11) Abdominal wall abscess Code(s): L02.211 - CUTANEOUS ABSCESS OF ABDOMINAL WALL (12) Liver lesion, left lobe Code(s): K76.89 - OTHER SPECIFIED DISEASES OF LIVER (13) Liver lesion, right lobe Code(s): K76.89 - OTHER SPECIFIED DISEASES OF LIVER Assessment/Plan Cont meds; pain medication PRN. To f/u with SX. To monitor INR. PT. Iencouraged pt to increase PO fluid intake. AM labs. Pt's sisters at bedside, case was reviewed, all questions were answered. Case was d/w pt's nurse.
[2017-01-23] MEDS: WARFARIN NA 2 MG TABLET (UD) PO SCH (17:59)
[2017-01-23] MEDS: ATORVASTATIN CA 20 MG TABLET (FP) PO SCH (21:55)
[2017-01-23] MEDS: ZOLPIDEM TARTRATE 5 MG TABLET PO PRN (22:36)
[2017-01-24] MEDS: INSULIN SLIDING SCALE (NOVOLOG) 1 VIAL SQ SCH ×3 (06:35→17:12)
[2017-01-24 07:20] LABS: MCH 29.8 pg (25.7-33.7); MCHC 32.6 g/dl (32.0-36.0); MEAN CELL VOLUME 91.3 fl (80-96); MEAN PLT VOLUME 6.8 fl (7.5-11.1); PLATELET COUNT 429 K/MM3 (134-434); RDW 15.4 % (11.6-15.6); WHITE BLOOD COUNT 7.5 K/mm3 (4.0-10.0)
[2017-01-24 07:50] LABS: INR 2.18 (0.82-1.09); PROTHROMBIN TIME (PATIENT) 24.6 SEC (9.98-11.88)
[2017-01-24 07:55] LABS: ANION GAP 9 (8-16); CALCIUM 8.5 mg/dL (8.5-10.1); CO2 26 mmol/L (21-32); CREATININE 0.8 mg/dL (0.55-1.02); GLUCOSE,RANDOM 114 mg/dL (74-106)
--- NOTE | 2017-01-24 09:10 | PN ---
Progress Note, Physician History of Present Illness: 66yo female with multiple medical problems, s/p Dwaine's procedure 12/10/16 for perforated sigmoid colon, with midline abdominal wounds left open to heal by secondary intention, complicated by fascial dehiscence and reopening of RLQ drain tract. She had drain placed and is now draining a light brown feculent- smelling fluid. No complaints overnight. - Current Medication List Current Medications: Active Medications Acetaminophen/Codeine Phosphate (Tylenol # 3 -) 1 tab PO Q6H PRN PRN Reason: PAIN LEVEL 1-5 Last Admin: 01/23/17 21:55 Dose: 1 tab Acetaminophen/Codeine Phosphate (Tylenol # 3 -) 2 tab PO Q6H PRN PRN Reason: PAIN LEVEL 6-10 Anastrozole (Arimidex -) 1 mg PO DAILY [facility] Last Admin: 01/23/17 10:17 Dose: 1 mg Atorvastatin Calcium (Lipitor -) 20 mg PO HS [facility] Last Admin: 01/23/17 21:55 Dose: 20 mg Bupropion HCl (Wellbutrin -) 150 mg PO BID [facility] Last Admin: 01/23/17 21:56 Dose: 150 mg Carvedilol (Coreg -) 25 mg PO BID [facility] Last Admin: 01/23/17 21:55 Dose: 25 mg Cyanocobalamin (Vitamin B12 -) 1,000 mcg PO DAILY [facility] Last Admin: 01/23/17 10:19 Dose: 1,000 mcg Furosemide (Lasix -) 20 mg PO DAILY [facility] Last Admin: 01/23/17 10:19 Dose: 20 mg Insulin Aspart (Novolog Vial Sliding Scale -) 1 vial SQ TIDAC [facility] PRN Reason: Protocol Last Admin: 01/24/17 06:35 Dose: Not Given Mometasone Furoate (Asmanex 110mcg -) 1 puff IH BID [facility] Last Admin: 01/23/17 22:36 Dose: 1 puff Nicotine (Nicoderm Patch -) 7 mg TD DAILY [facility] Last Admin: 01/23/17 10:19 Dose: Not Given Pantoprazole Sodium (Protonix -) 40 mg PO DAILY [facility] Last Admin: 01/23/17 10:19 Dose: 40 mg Sodium Hypochlorite (Dakin's Solution 0.25% (Half-Strength) -) 1 applic TP BID [facility] Last Admin: 01/23/17 21:58 Dose: 1 applic Valsartan (Diovan -) 80 mg PO DAILY [facility] Last Admin: 01/23/17 10:18 Dose: 80 mg Warfarin Sodium (Coumadin -) 4 mg PO Q2D@1800 [facility] Last Admin: 01/23/17 17:59 Dose: 4 mg Warfarin Sodium (Coumadin -) 3 mg PO Q2D@1800 [facility] Zolpidem Tartrate (Ambien -) 5 mg PO HS PRN Last Admin: 01/23/17 22:36 Dose: 5 mg - Objective Vital Signs: Vital Signs Temperature 97.9 F 01/24/17 05:48 Pulse Rate 82 01/24/17 05:48 Respiratory Rate 18 01/24/17 05:48 Blood Pressure 163/69 01/24/17 05:48 O2 Sat by Pulse Oximetry (%) 97 01/23/17 21:00 Vital Signs Period Temp Pulse Resp BP Sys/Holt Pulse Ox Last 24 Hr 97.6 F-98.3 F 72-82 18-18 122-163/56-76 96-97 Intake & Output 01/23/17 01/24/17 01/24/17 23:59 07:59 15:59 Intake Total 240 775 Output Total 30 20 Balance 210 755 Intake: Oral 240 775 Output: Drainage 30 20 Left Abdomen 30 Left Lateral Abdomen 20 Other: Voiding Method Incontinent Incontinent Diaper # Unmeasured Voids Void 1 2 Bowel Movement Yes # Bowel Movements 1 Constitutional: Yes: No Distress, Calm, Obese Eyes: Yes: Conjunctiva Clear, EOM Intact, Cataracts (right pupil white cloudy) HENT: Yes: Atraumatic, Normocephalic Neck: Yes: Supple, Trachea Midline Cardiovascular: Yes: Regular Rate and Rhythm, S1, S2 Respiratory: Yes: Regular, CTA Bilaterally Gastrointestinal: Yes: Normal Bowel Sounds, Soft, Other (LLQ colostomy formed brown stool, IR drain minimal, midline still remnant psusomonal stain RLQ packing serosanguions staning of packing) Extremities: No: Cool, Cyanosis Peripheral Pulses WNL: No Wound/Incision: Yes: Draining, Unapproximated. No: Reddened Neurological: Yes: Alert, Oriented Psychiatric: Yes: Alert, Oriented Labs: CBC, BMP 01/24/17 06:45 01/24/17 06:45 INR, PTT INR 2.18 (0.82-1.09) H 01/24/17 06:45 Microbiology 01/21/17 11:00 Abdomen Gram Stain - Final 01/21/17 11:00 Abdomen Body Fluid Culture - Final Proteus Mirabilis Enterobacter Aerogenes Vr Ec Faecalis 01/21/17 11:00 Abdomen Anaerobic Culture - Final NO ANAEROBES WERE ISOLATED 01/17/17 16:30 Urine - Urine Clean Catch Urine Culture - Final NO GROWTH OBTAINED Problem List - Problems (1) Abdominal wall abscess Assessment/Plan: 66 yo female s/p Hartmans and dehissance s/p drainage of left abdominal collection output becoming more feculent in appearence, gram stain was multi organism including fecal coliforms, now on contact, drainage from IR drain is scant 50ml. Midline wounds changed and repacked with Dakin's-dampened Kerlix gauze - to continue BID. RLQ drain site repacked with 1/4" plain ribbon gauze, including small side tract at 10:00. Will continue daily for now. consider contrast study via IR drain on Thursday Add protein supplementation will follow Code(s): L02.211 - CUTANEOUS ABSCESS OF ABDOMINAL WALL (2) Open wound of abdominal wall, anterior, complicated Code(s): S31.109A - UNSP OPN WND ABD WALL, UNSP Q W/O PENET PERIT CAV, INIT Qualifiers: Encounter type: subsequent encounter Qualified Code(s): S31.109D - Unspecified open wound of abdominal wall, unspecified quadrant without penetration into peritoneal cavity, subsequent encounter (3) Protein calorie malnutrition Code(s): E46 - UNSPECIFIED PROTEIN-CALORIE MALNUTRITION Qualifiers: Protein-calorie malnutrition severity: unspecified severity Qualified Code( s): E46 - Unspecified protein-calorie malnutrition
[2017-01-24] MEDS ORDERED: PT OWN MED DRAWER 7, Y5N ONE (10:50)
[2017-01-24] MEDS: PANTOPRAZOLE 40 MG TABLET (FP) PO SCH (11:00)
[2017-01-24] MEDS: NICOTINE 7 MG/24 HOURS TOPICAL PATCH TD SCH ×2 (11:00)
[2017-01-24] MEDS: MOMETASONE FUROATE 110 MCG/IH INHALER IH SCH ×2 (11:01→21:25)
[2017-01-24] MEDS: CARVEDILOL 25 MG TABLET (FP) PO SCH ×2 (11:01→21:26)
[2017-01-24] MEDS: CYANOCOBALAMIN 1,000 MCG TABLET (FP) PO SCH (11:01)
[2017-01-24] MEDS: VALSARTAN 80 MG TABLET (UD) PO SCH (11:01)
[2017-01-24] MEDS: FUROSEMIDE 20 MG TABLET (FP) PO SCH (11:01)
[2017-01-24] MEDS: buPROPion HCL 75 MG TABLET PO SCH ×2 (11:01→21:25)
[2017-01-24] MEDS: ANASTROZOLE 1 MG TABLET PO SCH (11:02)
--- NOTE | 2017-01-24 11:54 | PN ---
Progress Note, Physician History of Present Illness: Pt w/o fever, chills, abd pain, N, V. Pt w/o SOB, CP, palp. - Current Medication List Current Medications: Active Medications Acetaminophen/Codeine Phosphate (Tylenol # 3 -) 1 tab PO Q6H PRN PRN Reason: PAIN LEVEL 1-5 Last Admin: 01/23/17 21:55 Dose: 1 tab Acetaminophen/Codeine Phosphate (Tylenol # 3 -) 2 tab PO Q6H PRN PRN Reason: PAIN LEVEL 6-10 Anastrozole (Arimidex -) 1 mg PO DAILY [facility] Last Admin: 01/24/17 11:02 Dose: 1 mg Atorvastatin Calcium (Lipitor -) 20 mg PO HS [facility] Last Admin: 01/23/17 21:55 Dose: 20 mg Bupropion HCl (Wellbutrin -) 150 mg PO BID [facility] Last Admin: 01/24/17 11:01 Dose: 150 mg Carvedilol (Coreg -) 25 mg PO BID [facility] Last Admin: 01/24/17 11:01 Dose: 25 mg Cyanocobalamin (Vitamin B12 -) 1,000 mcg PO DAILY [facility] Last Admin: 01/24/17 11:01 Dose: 1,000 mcg Furosemide (Lasix -) 20 mg PO DAILY [facility] Last Admin: 01/24/17 11:01 Dose: 20 mg Insulin Aspart (Novolog Vial Sliding Scale -) 1 vial SQ TIDAC [facility] PRN Reason: Protocol Last Admin: 01/24/17 11:21 Dose: Not Given Mometasone Furoate (Asmanex 110mcg -) 1 puff IH BID [facility] Last Admin: 01/24/17 11:01 Dose: 1 puff Nicotine (Nicoderm Patch -) 7 mg TD DAILY [facility] Last Admin: 01/24/17 11:00 Dose: 7 mg Pantoprazole Sodium (Protonix -) 40 mg PO DAILY [facility] Last Admin: 01/24/17 11:00 Dose: 40 mg Sodium Hypochlorite (Dakin's Solution 0.25% (Half-Strength) -) 1 applic TP BID [facility] Last Admin: 01/23/17 21:58 Dose: 1 applic Valsartan (Diovan -) 80 mg PO DAILY [facility] Last Admin: 01/24/17 11:01 Dose: 80 mg Warfarin Sodium (Coumadin -) 4 mg PO Q2D@1800 [facility] Last Admin: 01/23/17 17:59 Dose: 4 mg Warfarin Sodium (Coumadin -) 3 mg PO Q2D@1800 [facility] Zolpidem Tartrate (Ambien -) 5 mg PO HS PRN Last Admin: 01/23/17 22:36 Dose: 5 mg - Objective Vital Signs: Vital Signs Temperature 97.9 F 01/24/17 05:48 Pulse Rate 82 01/24/17 05:48 Respiratory Rate 18 01/24/17 05:48 Blood Pressure 163/69 01/24/17 05:48 O2 Sat by Pulse Oximetry (%) 97 01/23/17 21:00 Constitutional: Yes: No Distress, Calm Cardiovascular: Yes: Regular Rate and Rhythm, S1, S2 Respiratory: Yes: Regular, CTA Bilaterally, Other (atelectasis at bases) Gastrointestinal: Yes: Normal Bowel Sounds, Soft, Tenderness Edema: No Neurological: Yes: Alert, Oriented Labs: CBC, BMP 01/24/17 06:45 01/24/17 06:45 INR, PTT INR 2.18 (0.82-1.09) H 01/24/17 06:45 Problem List - Problems (1) Generalized weakness Code(s): R53.1 - WEAKNESS (2) Muscular deconditioning Code(s): R29.898 - OTH SYMPTOMS AND SIGNS INVOLVING THE MUSCULOSKELETAL SYSTEM (3) COPD (chronic obstructive pulmonary disease) Code(s): J44.9 - CHRONIC OBSTRUCTIVE PULMONARY DISEASE, UNSPECIFIED Qualifiers: COPD type: unspecified COPD Qualified Code(s): J44.9 - Chronic obstructive pulmonary disease, unspecified (4) Diabetes mellitus type 2, noninsulin dependent Code(s): E11.9 - TYPE 2 DIABETES MELLITUS WITHOUT COMPLICATIONS (5) H/O: CVA (cerebrovascular accident) Code(s): Z86.73 - PRSNL HX OF TIA (TIA), AND CEREB INFRC W/O RESID DEFICITS (6) Open wound of abdominal wall, anterior, complicated Code(s): S31.109A - UNSP OPN WND ABD WALL, UNSP Q W/O PENET PERIT CAV, INIT Qualifiers: Encounter type: subsequent encounter Qualified Code(s): S31.109D - Unspecified open wound of abdominal wall, unspecified quadrant without penetration into peritoneal cavity, subsequent encounter (7) Perforated sigmoid colon Code(s): K63.1 - PERFORATION OF INTESTINE (NONTRAUMATIC) (8) Protein calorie malnutrition Code(s): E46 - UNSPECIFIED PROTEIN-CALORIE MALNUTRITION Qualifiers: Protein-calorie malnutrition severity: unspecified severity Qualified Code( s): E46 - Unspecified protein-calorie malnutrition (9) Hyponatremia Code(s): E87.1 - HYPO-OSMOLALITY AND HYPONATREMIA (10) Hypoalbuminemia Code(s): E88.09 - OTH DISORDERS OF PLASMA-PROTEIN METABOLISM, NEC (11) Abdominal wall abscess Code(s): L02.211 - CUTANEOUS ABSCESS OF ABDOMINAL WALL (12) Liver lesion, left lobe Code(s): K76.89 - OTHER SPECIFIED DISEASES OF LIVER (13) Liver lesion, right lobe Code(s): K76.89 - OTHER SPECIFIED DISEASES OF LIVER Assessment/Plan Cont meds; pain medication PRN. To f/u with SX. To monitor INR. PT. I encouraged pt to increase PO fluid intake, OOBTC AM labs. Case was d/w pt's nurse.
[2017-01-24] MEDS: ACETAMINOPHEN WITH CODEINE 300MG/30MG TABLET PO PRN (14:05)
[2017-01-24] MEDS: SODIUM HYPOCHLORITE 0.25%- 473 ML BULK BOTTLE TP SCH ×2 (14:55→22:52)
[2017-01-24] MEDS: WARFARIN NA 3 MG TABLET PO SCH (17:15)
[2017-01-24] MEDS: ZOLPIDEM TARTRATE 5 MG TABLET PO PRN (21:26)
[2017-01-24] MEDS: ATORVASTATIN CA 20 MG TABLET (FP) PO SCH (21:26)
[2017-01-25] MEDS: INSULIN SLIDING SCALE (NOVOLOG) 1 VIAL SQ SCH ×3 (06:05→17:26)
[2017-01-25] MEDS: VALSARTAN 80 MG TABLET (UD) PO SCH (11:19)
[2017-01-25] MEDS: PANTOPRAZOLE 40 MG TABLET (FP) PO SCH (11:19)
[2017-01-25] MEDS: CYANOCOBALAMIN 1,000 MCG TABLET (FP) PO SCH (11:19)
[2017-01-25] MEDS: FUROSEMIDE 20 MG TABLET (FP) PO SCH (11:20)
[2017-01-25] MEDS: CARVEDILOL 25 MG TABLET (FP) PO SCH ×2 (11:20→22:32)
[2017-01-25] MEDS: ANASTROZOLE 1 MG TABLET PO SCH (11:21)
[2017-01-25] MEDS: NICOTINE 7 MG/24 HOURS TOPICAL PATCH TD SCH (11:21)
[2017-01-25] MEDS: buPROPion HCL 75 MG TABLET PO SCH ×2 (11:21→22:32)
[2017-01-25] MEDS: MOMETASONE FUROATE 110 MCG/IH INHALER IH SCH ×2 (11:22→22:31)
[2017-01-25] MEDS: ACETAMINOPHEN WITH CODEINE 300MG/30MG TABLET PO PRN ×2 (11:22→23:11)
--- NOTE | 2017-01-25 12:04 | PN ---
Progress Note, Physician History of Present Illness: Pt w/o fever, chills, abd pain, N, V. Pt w/o SOB, CP, palp. - Current Medication List Current Medications: Active Medications Acetaminophen/Codeine Phosphate (Tylenol # 3 -) 1 tab PO Q6H PRN PRN Reason: PAIN LEVEL 1-5 Last Admin: 01/25/17 11:22 Dose: 1 tab Acetaminophen/Codeine Phosphate (Tylenol # 3 -) 2 tab PO Q6H PRN PRN Reason: PAIN LEVEL 6-10 Anastrozole (Arimidex -) 1 mg PO DAILY [facility] Last Admin: 01/25/17 11:21 Dose: 1 mg Atorvastatin Calcium (Lipitor -) 20 mg PO HS [facility] Last Admin: 01/24/17 21:26 Dose: 20 mg Bupropion HCl (Wellbutrin -) 150 mg PO BID [facility] Last Admin: 01/25/17 11:21 Dose: 150 mg Carvedilol (Coreg -) 25 mg PO BID [facility] Last Admin: 01/25/17 11:20 Dose: 25 mg Cyanocobalamin (Vitamin B12 -) 1,000 mcg PO DAILY [facility] Last Admin: 01/25/17 11:19 Dose: 1,000 mcg Furosemide (Lasix -) 20 mg PO DAILY [facility] Last Admin: 01/25/17 11:20 Dose: 20 mg Insulin Aspart (Novolog Vial Sliding Scale -) 1 vial SQ TIDAC [facility] PRN Reason: Protocol Last Admin: 01/25/17 11:33 Dose: Not Given Mometasone Furoate (Asmanex 110mcg -) 1 puff IH BID [facility] Last Admin: 01/25/17 11:22 Dose: 1 puff Nicotine (Nicoderm Patch -) 7 mg TD DAILY [facility] Last Admin: 01/25/17 11:21 Dose: Not Given Pantoprazole Sodium (Protonix -) 40 mg PO DAILY [facility] Last Admin: 01/25/17 11:19 Dose: 40 mg Sodium Hypochlorite (Dakin's Solution 0.25% (Half-Strength) -) 1 applic TP BID [facility] Last Admin: 01/24/17 22:52 Dose: Not Given Valsartan (Diovan -) 80 mg PO DAILY [facility] Last Admin: 01/25/17 11:19 Dose: 80 mg Warfarin Sodium (Coumadin -) 4 mg PO Q2D@1800 [facility] Last Admin: 01/23/17 17:59 Dose: 4 mg Warfarin Sodium (Coumadin -) 3 mg PO Q2D@1800 [facility] Last Admin: 01/24/17 17:15 Dose: 3 mg Zolpidem Tartrate (Ambien -) 5 mg PO HS [facility] Last Admin: 01/24/17 21:26 Dose: 5 mg - Objective Vital Signs: Vital Signs Temperature 97.6 F 01/25/17 06:00 Pulse Rate 81 01/25/17 06:00 Respiratory Rate 18 01/25/17 06:00 Blood Pressure 141/64 01/25/17 06:00 O2 Sat by Pulse Oximetry (%) 97 01/24/17 21:00 Constitutional: Yes: No Distress, Calm Cardiovascular: Yes: Regular Rate and Rhythm, S1, S2 Respiratory: Yes: Regular, CTA Bilaterally, Other (atelectasis at bases) Gastrointestinal: Yes: Normal Bowel Sounds, Soft, Other (left side drainage with minimal serous drainage) Edema: No Neurological: Yes: Alert, Oriented Labs: CBC, BMP 01/24/17 06:45 01/24/17 06:45 INR, PTT INR 2.18 (0.82-1.09) H 01/24/17 06:45 pending today labs Problem List - Problems (1) Generalized weakness Code(s): R53.1 - WEAKNESS (2) Muscular deconditioning Code(s): R29.898 - OT SYMPTOMS AND SIGNS INVOLVING THE MUSCULOSKELETAL SYSTEM (3) COPD (chronic obstructive pulmonary disease) Code(s): J44.9 - CHRONIC OBSTRUCTIVE PULMONARY DISEASE, UNSPECIFIED Qualifiers: COPD type: unspecified COPD Qualified Code(s): J44.9 - Chronic obstructive pulmonary disease, unspecified (4) Diabetes mellitus type 2, noninsulin dependent Code(s): E11.9 - TYPE 2 DIABETES MELLITUS WITHOUT COMPLICATIONS (5) H/O: CVA (cerebrovascular accident) Code(s): Z86.73 - PRSNL HX OF TIA (TIA), AND CEREB INFRC W/O RESID DEFICITS (6) Open wound of abdominal wall, anterior, complicated Code(s): S31.109A - UNSP OPN WND ABD WALL, UNSP Q W/O PENET PERIT CAV, INIT Qualifiers: Encounter type: subsequent encounter Qualified Code(s): S31.109D - Unspecified open wound of abdominal wall, unspecified quadrant without penetration into peritoneal cavity, subsequent encounter (7) Perforated sigmoid colon Code(s): K63.1 - PERFORATION OF INTESTINE (NONTRAUMATIC) (8) Protein calorie malnutrition Code(s): E46 - UNSPECIFIED PROTEIN-CALORIE MALNUTRITION Qualifiers: Protein-calorie malnutrition severity: unspecified severity Qualified Code( s): E46 - Unspecified protein-calorie malnutrition (9) Hyponatremia Code(s): E87.1 - HYPO-OSMOLALITY AND HYPONATREMIA (10) Hypoalbuminemia Code(s): E88.09 - OTH DISORDERS OF PLASMA-PROTEIN METABOLISM, NEC (11) Abdominal wall abscess Code(s): L02.211 - CUTANEOUS ABSCESS OF ABDOMINAL WALL (12) Liver lesion, left lobe Code(s): K76.89 - OTHER SPECIFIED DISEASES OF LIVER (13) Liver lesion, right lobe Code(s): K76.89 - OTHER SPECIFIED DISEASES OF LIVER Assessment/Plan Cont meds; pain medication PRN. To f/u with SX. To monitor INR. PT. I encouraged pt to increase PO fluid intake and OOBTC I poke w pt's nurse) AM labs. Case was d/w pt's nurse.
[2017-01-25 12:55] LABS: MCHC 32.8 g/dl (32.0-36.0); MEAN CELL VOLUME 91.4 fl (80-96); MEAN PLT VOLUME 6.8 fl (7.5-11.1); PLATELET COUNT 438 K/MM3 (134-434); RDW 15.6 % (11.6-15.6); WHITE BLOOD COUNT 8.4 K/mm3 (4.0-10.0)
[2017-01-25 13:13] LABS: ANION GAP 9 (8-16); CALCIUM 8.3 mg/dL (8.5-10.1); CO2 27 mmol/L (21-32); GLUCOSE,RANDOM 159 mg/dL (74-106)
[2017-01-25 13:15] LABS: INR 2.12 (0.82-1.09)
--- NOTE | 2017-01-25 14:01 | PN ---
Progress Note, Physician Chief Complaint: weakness and wound concerns History of Present Illness: No overnight events. Pt in slightly better spirits. Reports eating better and starting to have formed stool per colostomy. Drain with light yellow/greenish output in tubing, 95 yesterday, 30 so far today. Ostomy bag seal is holding. Dressings being done. Pt plans to get up to chair shortly. - Current Medication List Current Medications: Active Medications Acetaminophen/Codeine Phosphate (Tylenol # 3 -) 1 tab PO Q6H PRN PRN Reason: PAIN LEVEL 1-5 Last Admin: 01/25/17 11:22 Dose: 1 tab Acetaminophen/Codeine Phosphate (Tylenol # 3 -) 2 tab PO Q6H PRN PRN Reason: PAIN LEVEL 6-10 Anastrozole (Arimidex -) 1 mg PO DAILY [facility] Last Admin: 01/25/17 11:21 Dose: 1 mg Atorvastatin Calcium (Lipitor -) 20 mg PO HS [facility] Last Admin: 01/24/17 21:26 Dose: 20 mg Bupropion HCl (Wellbutrin -) 150 mg PO BID [facility] Last Admin: 01/25/17 11:21 Dose: 150 mg Carvedilol (Coreg -) 25 mg PO BID [facility] Last Admin: 01/25/17 11:20 Dose: 25 mg Cyanocobalamin (Vitamin B12 -) 1,000 mcg PO DAILY [facility] Last Admin: 01/25/17 11:19 Dose: 1,000 mcg Furosemide (Lasix -) 20 mg PO DAILY [facility] Last Admin: 01/25/17 11:20 Dose: 20 mg Insulin Aspart (Novolog Vial Sliding Scale -) 1 vial SQ TIDAC [facility] PRN Reason: Protocol Last Admin: 01/25/17 11:33 Dose: Not Given Mometasone Furoate (Asmanex 110mcg -) 1 puff IH BID [facility] Last Admin: 01/25/17 11:22 Dose: 1 puff Nicotine (Nicoderm Patch -) 7 mg TD DAILY [facility] Last Admin: 01/25/17 11:21 Dose: Not Given Pantoprazole Sodium (Protonix -) 40 mg PO DAILY [facility] Last Admin: 01/25/17 11:19 Dose: 40 mg Sodium Hypochlorite (Dakin's Solution 0.25% (Half-Strength) -) 1 applic TP BID [facility] Last Admin: 01/24/17 22:52 Dose: Not Given Valsartan (Diovan -) 80 mg PO DAILY [facility] Last Admin: 01/25/17 11:19 Dose: 80 mg Warfarin Sodium (Coumadin -) 4 mg PO Q2D@1800 [facility] Last Admin: 01/23/17 17:59 Dose: 4 mg Warfarin Sodium (Coumadin -) 3 mg PO Q2D@1800 [facility] Last Admin: 01/24/17 17:15 Dose: 3 mg Zolpidem Tartrate (Ambien -) 5 mg PO HS PRN Last Admin: 01/24/17 21:26 Dose: 5 mg - Objective Vital Signs: Vital Signs Temperature 97.6 F 01/25/17 06:00 Pulse Rate 81 01/25/17 06:00 Respiratory Rate 18 01/25/17 06:00 Blood Pressure 141/64 01/25/17 06:00 O2 Sat by Pulse Oximetry (%) 97 01/24/17 21:00 Constitutional: Yes: No Distress, Calm, Obese Gastrointestinal: Yes: Soft, Abdomen, Obese, Tenderness (minimal but still some over left abdomen near stoma over drain site, mild at upper midline wound upper right wall and in RLQ site with packing change), Other (colostomy p/p/p of formed brown soft stool; RLQ drain site dressed with minimal strikethrough; midline dressing with minimal staining through gauze). No: Distention Genitourinary: Yes: Incontinence (in diaper). No: CVA Tenderness - Left, CVA Tenderness - Right Extremities: No: Cool, Cyanosis Wound/Incision: Yes: Dressing Removed (midline and RLQ - midline wounds clean and pink with scant tiny spot of green on upper dressing only from basal edge - changed with Dakin's dampened Kerlix gauze, covered with folded gauze and tape; RLQ site packing with serosang drainage mostly on ribbon, changed for 1/4" plain packing strip, no tunnel identified at base anymore, packed from bottom up to skin, covered with folded gauze and paper tape), Unapproximated (midline and RLQ) Neurological: Yes: Alert, Oriented Psychiatric: Yes: Alert, Oriented, Other (in better spirits) Labs: CBC, BMP 01/25/17 12:19 01/25/17 12:19 INR, PTT INR 2.12 (0.82-1.09) H 01/25/17 12:19 Problem List - Problems (1) Open wound of abdominal wall, anterior, complicated Assessment/Plan: Midline wounds changed and repacked with Dakin's-dampened Kerlix gauze - to continue BID. RLQ drain site repacked with 1/4" plain ribbon gauze. improving. Will continue daily. Code(s): S31.109A - UNSP OPN WND ABD WALL, UNSP Q W/O PENET PERIT CAV, INIT Qualifiers: Encounter type: subsequent encounter Qualified Code(s): S31.109D - Unspecified open wound of abdominal wall, unspecified quadrant without penetration into peritoneal cavity, subsequent encounter (2) Disruption of internal operation (surgical) wound, not elsewhere classified , subsequent encounter Assessment/Plan: wound bases granulating well, continue dressing changes. Code(s): T81.32XD - DISRUPTION OF INTERNAL OPERATION (SURGICAL) WOUND, NEC, SUBS (3) Colostomy in place Assessment/Plan: appliance base changed recently, holding well formed stool from ostomy - much less liquid output Code(s): Z93.3 - COLOSTOMY STATUS (4) Abdominal wall abscess Assessment/Plan: s/p IR perc drain placement flushing with 5ml saline tid had been feculent output - may represent fistula to bowel will discuss possible abscessogram with IR for tomorrow Code(s): L02.211 - CUTANEOUS ABSCESS OF ABDOMINAL WALL (5) Protein calorie malnutrition Assessment/Plan: strawberry Glucerna supplements with each meal pt with improving appetite but had not been eating well for weeks albumin low, wounds slow to heal continue dietary supplements Code(s): E46 - UNSPECIFIED PROTEIN-CALORIE MALNUTRITION Qualifiers: Protein-calorie malnutrition severity: severe Qualified Code(s): E43 - Unspecified severe protein-calorie malnutrition (6) Generalized weakness Assessment/Plan: PT to continue and work with patient on stairs as well as walking. She will need to be able to navigate home stairs daily on discharge to keep up conditioning and leave home for appointments. Pt should be up/OOB at least to chair for meals and as often as able, with ambulation with assistance. Commode at bedside is ok if pt will alert nurses when she needs to get up to use bathroom for assistance with getting OOB. Code(s): R53.1 - WEAKNESS (7) Muscular deconditioning Code(s): R29.898 - OTH SYMPTOMS AND SIGNS INVOLVING THE MUSCULOSKELETAL SYSTEM (8) Anemia Code(s): D64.9 - ANEMIA, UNSPECIFIED Qualifiers: Anemia type: unspecified type Qualified Code(s): D64.9 - Anemia, unspecified (9) H/O: CVA (cerebrovascular accident) Code(s): Z86.73 - PRSNL HX OF TIA (TIA), AND CEREB INFRC W/O RESID DEFICITS (10) Anticoagulant long-term use Assessment/Plan: INR therapeutic. on coumadin. Code(s): Z79.01 - NURSING HOME (CURRENT) USE OF 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 (11) COPD without exacerbation Assessment/Plan: on asmanex bid Code(s): J44.9 - CHRONIC OBSTRUCTIVE PULMONARY DISEASE, UNSPECIFIED (12) Cancer of left breast Assessment/Plan: on anastrozole Code(s): C50.912 - MALIGNANT NEOPLASM OF UNSPECIFIED SITE OF LEFT FEMALE BREAST Qualifiers: Breast location: upper outer quadrant of breast Estrogen receptor status: positive Patient sex: female Qualified Code(s): C50.412 - Malignant neoplasm of upper-outer quadrant of left female breast (13) Depression Assessment/Plan: on wellbutrin with improving mood Code(s): F32.9 - MAJOR DEPRESSIVE DISORDER, SINGLE EPISODE, UNSPECIFIED Qualifiers: Depression Type: reactive depression Qualified Code(s): F32.9 - Major depressive disorder, single episode, unspecified (14) Diabetes mellitus type 2, noninsulin dependent Assessment/Plan: not requiring medication at this time, on diabetic diet Code(s): E11.9 - TYPE 2 DIABETES MELLITUS WITHOUT COMPLICATIONS (15) Hypertension Assessment/Plan: on coreg and diovan, on lasix Code(s): I10 - ESSENTIAL (PRIMARY) HYPERTENSION Qualifiers: Hypertension type: essential hypertension Qualified Code(s): I10 - Essential (primary) hypertension (16) CHF (congestive heart failure) Assessment/Plan: on coreg and lasix, no acute exacerbation Code(s): I50.9 - HEART FAILURE, UNSPECIFIED Qualifiers: Congestive heart failure type: systolic Congestive heart failure chronicity : chronic Qualified Code(s): I50.22 - Chronic systolic (congestive) heart failure (17) ATN (acute tubular necrosis) Code(s): N17.0 - ACUTE KIDNEY FAILURE WITH TUBULAR NECROSIS
[2017-01-25] MEDS: SODIUM HYPOCHLORITE 0.25%- 473 ML BULK BOTTLE TP SCH ×2 (14:21→22:32)
[2017-01-25] MEDS: WARFARIN NA 2 MG TABLET (UD) PO SCH (17:32)
[2017-01-25] MEDS: ATORVASTATIN CA 20 MG TABLET (FP) PO SCH (22:32)
[2017-01-25] MEDS: ZOLPIDEM TARTRATE 5 MG TABLET PO PRN (22:32)
[2017-01-26] MEDS: INSULIN SLIDING SCALE (NOVOLOG) 1 VIAL SQ SCH ×3 (07:28→18:33)
[2017-01-26 07:42] LABS: MCH 30.4 pg (25.7-33.7); MCHC 33.1 g/dl (32.0-36.0); MEAN CELL VOLUME 91.9 fl (80-96); MEAN PLT VOLUME 6.9 fl (7.5-11.1); PLATELET COUNT 398 K/MM3 (134-434); RDW 15.6 % (11.6-15.6); WHITE BLOOD COUNT 8.6 K/mm3 (4.0-10.0)
[2017-01-26 08:05] LABS: ANION GAP 10 (8-16); CO2 28 mmol/L (21-32); GLUCOSE,RANDOM 114 mg/dL (74-106)
[2017-01-26 08:11] LABS: INR 2.09 (0.82-1.09); PROTHROMBIN TIME (PATIENT) 23.6 SEC (9.98-11.88)
[2017-01-26] MEDS: ANASTROZOLE 1 MG TABLET PO SCH (11:01)
[2017-01-26] MEDS: FUROSEMIDE 20 MG TABLET (FP) PO SCH (11:01)
[2017-01-26] MEDS: CARVEDILOL 25 MG TABLET (FP) PO SCH ×2 (11:01→21:46)
[2017-01-26] MEDS: PANTOPRAZOLE 40 MG TABLET (FP) PO SCH (11:01)
[2017-01-26] MEDS: CYANOCOBALAMIN 1,000 MCG TABLET (FP) PO SCH (11:01)
[2017-01-26] MEDS: VALSARTAN 80 MG TABLET (UD) PO SCH (11:01)
[2017-01-26] MEDS: MOMETASONE FUROATE 110 MCG/IH INHALER IH SCH ×2 (11:02→21:45)
[2017-01-26] MEDS: buPROPion HCL 75 MG TABLET PO SCH ×2 (11:02→21:46)
[2017-01-26] MEDS: NICOTINE 7 MG/24 HOURS TOPICAL PATCH TD SCH (11:02)
[2017-01-26] MEDS: SODIUM HYPOCHLORITE 0.25%- 473 ML BULK BOTTLE TP SCH ×2 (15:01→23:00)
[2017-01-26] MEDS: ACETAMINOPHEN WITH CODEINE 300MG/30MG TABLET PO PRN (15:14)
--- NOTE | 2017-01-26 15:52 | PN ---
Progress Note, Physician Chief Complaint: weakness and wound concerns History of Present Illness: No overnight events. Pt in better spirits. Ostomy bag seal is holding. Pt had CT this morning showing significant decrease/resolution of fluid collection in left abdominal wall, followed by abscessogram, showing contrast with thin tract to distal rectal remnant and also likely connection to limb of colon directly out to ostomy, as contrast is present on post-CT out to colostomy. Tolerating diet. Up with PT. - Current Medication List Current Medications: Active Medications Acetaminophen/Codeine Phosphate (Tylenol # 3 -) 1 tab PO Q6H PRN PRN Reason: PAIN LEVEL 1-5 Last Admin: 01/26/17 15:14 Dose: 1 tab Acetaminophen/Codeine Phosphate (Tylenol # 3 -) 2 tab PO Q6H PRN PRN Reason: PAIN LEVEL 6-10 Anastrozole (Arimidex -) 1 mg PO DAILY [facility] Last Admin: 01/26/17 11:01 Dose: 1 mg Atorvastatin Calcium (Lipitor -) 20 mg PO HS [facility] Last Admin: 01/25/17 22:32 Dose: 20 mg Bupropion HCl (Wellbutrin -) 150 mg PO BID [facility] Last Admin: 01/26/17 11:02 Dose: 150 mg Carvedilol (Coreg -) 25 mg PO BID [facility] Last Admin: 01/26/17 11:01 Dose: 25 mg Cyanocobalamin (Vitamin B12 -) 1,000 mcg PO DAILY [facility] Last Admin: 01/26/17 11:01 Dose: 1,000 mcg Furosemide (Lasix -) 20 mg PO DAILY [facility] Last Admin: 01/26/17 11:01 Dose: 20 mg Insulin Aspart (Novolog Vial Sliding Scale -) 1 vial SQ TIDAC [facility] PRN Reason: Protocol Last Admin: 01/26/17 13:58 Dose: Not Given Mometasone Furoate (Asmanex 110mcg -) 1 puff IH BID [facility] Last Admin: 01/26/17 11:02 Dose: 1 puff Nicotine (Nicoderm Patch -) 7 mg TD DAILY [facility] Last Admin: 01/26/17 11:02 Dose: Not Given Pantoprazole Sodium (Protonix -) 40 mg PO DAILY [facility] Last Admin: 01/26/17 11:01 Dose: 40 mg Sodium Hypochlorite (Dakin's Solution 0.25% (Half-Strength) -) 1 applic TP BID [facility] Last Admin: 01/26/17 15:01 Dose: 1 applic Valsartan (Diovan -) 80 mg PO DAILY [facility] Last Admin: 01/26/17 11:01 Dose: 80 mg Warfarin Sodium (Coumadin -) 4 mg PO Q2D@1800 [facility] Last Admin: 01/25/17 17:32 Dose: 4 mg Warfarin Sodium (Coumadin -) 3 mg PO Q2D@1800 [facility] Last Admin: 01/24/17 17:15 Dose: 3 mg Zolpidem Tartrate (Ambien -) 5 mg PO HS PRN Last Admin: 01/25/17 22:32 Dose: 5 mg - Objective Vital Signs: Vital Signs Temperature 98.2 F 01/26/17 06:00 Pulse Rate 76 01/26/17 10:00 Respiratory Rate 18 01/26/17 10:00 Blood Pressure 146/60 01/26/17 10:00 O2 Sat by Pulse Oximetry (%) 96 01/25/17 21:00 Constitutional: Yes: No Distress, Calm, Obese Gastrointestinal: Yes: Soft, Abdomen, Obese, Tenderness (minimal at wound edges with dressing changes, less at left abdomen than initially though mild at drain site), Other (colostomy p/p/p of formed soft brown stool; IR drain with cloudy/ brown/shoemaker drainage; RLQ drain site clean with serosang drainage on packing ribbon; midline wounds clean and granulating with dressing in place, no green drainage). No: Distention Extremities: No: Cool, Cyanosis Integumentary: Yes: Incision (midline and RLQ), Skin Tear (R forearm with mepilex, healing). No: Rash Wound/Incision: Yes: Dressing Dry and Intact, Dressing Removed (midline dressing redone with Dakin's-dampened Kerlix, gauze and tape; RLQ packing replaced with 1/4" plain packing, no tunnel evident anymore), Unapproximated ( midline and RLQ) Neurological: Yes: Alert, Oriented Labs: CBC, BMP 01/26/17 06:20 01/26/17 06:20 INR, PTT INR 2.09 (0.82-1.09) H 01/26/17 05:35 - ....Imaging Cat Scan: Image Reviewed (discussed with Dr Gebrael) Problem List - Problems (1) Postoperative fistula Assessment/Plan: see below - fistula present from abdominal wall collection to distal rectum and to colostomy limb, now controlled out drain tract through skin maintain drain monitor output see below Code(s): T81.83XA - PERSISTENT POSTPROCEDURAL FISTULA, INITIAL ENCOUNTER Qualifiers: Encounter type: initial encounter Qualified Code(s): T81.83XA - Persistent postprocedural fistula, initial encounter (2) 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 Code(s): K63.2 - FISTULA OF INTESTINE (3) Rectocutaneous fistula Code(s): K60.4 - RECTAL FISTULA (4) Open wound of abdominal wall, anterior, complicated Assessment/Plan: Midline wounds changed and repacked with Dakin's-dampened Kerlix gauze - to continue BID. RLQ drain site repacked with 1/4" plain ribbon gauze. improving. Will continue daily. Code(s): S31.109A - UNSP OPN WND ABD WALL, UNSP Q W/O PENET PERIT CAV, INIT Qualifiers: Encounter type: subsequent encounter Qualified Code(s): S31.109D - Unspecified open wound of abdominal wall, unspecified quadrant without penetration into peritoneal cavity, subsequent encounter (5) Disruption of internal operation (surgical) wound, not elsewhere classified , subsequent encounter Assessment/Plan: wound bases granulating well, continue dressing changes. Code(s): T81.32XD - DISRUPTION OF INTERNAL OPERATION (SURGICAL) WOUND, NEC, SUBS (6) Colostomy in place Assessment/Plan: appliance base holding well formed stool from ostomy, no liquid output, but may have some contrast output in next day appears to have at least small fistula tract from colostomy limb to abdominal wall collection, and from there to distal rectal limb Code(s): Z93.3 - COLOSTOMY STATUS (7) Abdominal wall abscess Assessment/Plan: s/p IR perc drain placement with evacuation of initial fluid collection flushing with 5ml saline tid - continue today and tomorrow, then will stop flushing abscessogram does show contrast tract to distal rectum and to colostomy limb controlled fistula(s) may close with continued decompression of drain tract plan to leave drain in place for now Code(s): L02.211 - CUTANEOUS ABSCESS OF ABDOMINAL WALL (8) Protein calorie malnutrition Assessment/Plan: strawberry Glucerna supplements with each meal pt with improving appetite but had not been eating well for weeks albumin low, wounds slow to heal continue dietary supplements Code(s): E46 - UNSPECIFIED PROTEIN-CALORIE MALNUTRITION Qualifiers: Protein-calorie malnutrition severity: severe Qualified Code(s): E43 - Unspecified severe protein-calorie malnutrition (9) Generalized weakness Assessment/Plan: PT to continue and work with patient on stairs as well as walking. She will need to be able to navigate home stairs daily on discharge to keep up conditioning and leave home for appointments. Pt should be up/OOB at least to chair for meals and as often as able, with ambulation with assistance. Commode at bedside is ok if pt will alert nurses when she needs to get up to use bathroom for assistance with getting OOB. Isolation status limits ability to take patient to gym for PT Code(s): R53.1 - WEAKNESS (10) Muscular deconditioning Code(s): R29.898 - OTH SYMPTOMS AND SIGNS INVOLVING THE MUSCULOSKELETAL SYSTEM (11) Anemia Code(s): D64.9 - ANEMIA, UNSPECIFIED Qualifiers: Anemia type: unspecified type Qualified Code(s): D64.9 - Anemia, unspecified (12) H/O: CVA (cerebrovascular accident) Code(s): Z86.73 - PRSNL HX OF TIA (TIA), AND CEREB INFRC W/O RESID DEFICITS (13) Anticoagulant long-term use Assessment/Plan: INR therapeutic. on coumadin. Code(s): Z79.01 - A[employer]IO [employer]ODUCTION [employer] (CURRENT) USE OF 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 (14) COPD without exacerbation Assessment/Plan: on asmanex bid Code(s): J44.9 - CHRONIC OBSTRUCTIVE PULMONARY DISEASE, UNSPECIFIED (15) Cancer of left breast Assessment/Plan: on anastrozole Code(s): C50.912 - MALIGNANT NEOPLASM OF UNSPECIFIED SITE OF LEFT FEMALE BREAST Qualifiers: Breast location: upper outer quadrant of breast Estrogen receptor status: positive Patient sex: female Qualified Code(s): C50.412 - Malignant neoplasm of upper-outer quadrant of left female breast (16) Depression Assessment/Plan: on wellbutrin with improving mood Code(s): F32.9 - MAJOR DEPRESSIVE DISORDER, SINGLE EPISODE, UNSPECIFIED Qualifiers: Depression Type: reactive depression Qualified Code(s): F32.9 - Major depressive disorder, single episode, unspecified (17) Diabetes mellitus type 2, noninsulin dependent Assessment/Plan: not requiring medication at this time, on diabetic diet Code(s): E11.9 - TYPE 2 DIABETES MELLITUS WITHOUT COMPLICATIONS (18) Hypertension Assessment/Plan: on coreg and diovan, on lasix Code(s): I10 - ESSENTIAL (PRIMARY) HYPERTENSION Qualifiers: Hypertension type: essential hypertension Qualified Code(s): I10 - Essential (primary) hypertension (19) CHF (congestive heart failure) Assessment/Plan: on coreg and lasix, no acute exacerbation Code(s): I50.9 - HEART FAILURE, UNSPECIFIED Qualifiers: Congestive heart failure type: systolic Congestive heart failure chronicity : chronic Qualified Code(s): I50.22 - Chronic systolic (congestive) heart failure (20) ATN (acute tubular necrosis) Assessment/Plan: CT shows one kidney still somewhat affected - will resume IV hydration for another day or so - NS at low rate for now Code(s): N17.0 - ACUTE KIDNEY FAILURE WITH TUBULAR NECROSIS
[2017-01-26] MEDS ORDERED: SODIUM CHLORIDE 1,000 ML IV SCH (16:15)
[2017-01-26] MEDS ORDERED: PT OWN MED DRAWER 7, Y5N ONE (18:21)
[2017-01-26] MEDS: WARFARIN NA 3 MG TABLET PO SCH (18:33)
[2017-01-26] MEDS ORDERED: WARFARIN NA 1 MG TABLET (FP) PO ONE ×2 (19:23→21:30)
--- NOTE | 2017-01-26 19:26 | PN ---
Progress Note, Physician History of Present Illness: Pt w/o fever, chills, abd pain, N, V. Pt w/o SOB, CP, palp. - Current Medication List Current Medications: Active Medications Acetaminophen/Codeine Phosphate (Tylenol # 3 -) 1 tab PO Q6H PRN PRN Reason: PAIN LEVEL 1-5 Last Admin: 01/26/17 15:14 Dose: 1 tab Acetaminophen/Codeine Phosphate (Tylenol # 3 -) 2 tab PO Q6H PRN PRN Reason: PAIN LEVEL 6-10 Anastrozole (Arimidex -) 1 mg PO DAILY [facility] Last Admin: 01/26/17 11:01 Dose: 1 mg Atorvastatin Calcium (Lipitor -) 20 mg PO HS [facility] Last Admin: 01/25/17 22:32 Dose: 20 mg Bupropion HCl (Wellbutrin -) 150 mg PO BID [facility] Last Admin: 01/26/17 11:02 Dose: 150 mg Carvedilol (Coreg -) 25 mg PO BID [facility] Last Admin: 01/26/17 11:01 Dose: 25 mg Cyanocobalamin (Vitamin B12 -) 1,000 mcg PO DAILY [facility] Last Admin: 01/26/17 11:01 Dose: 1,000 mcg Furosemide (Lasix -) 20 mg PO DAILY [facility] Last Admin: 01/26/17 11:01 Dose: 20 mg Sodium Chloride (Normal Saline -) 1,000 mls @ 50 mls/hr IV ASDIR [facility] Stop: 01/27/17 16:13 Insulin Aspart (Novolog Vial Sliding Scale -) 1 vial SQ TIDAC [facility] PRN Reason: Protocol Last Admin: 01/26/17 18:33 Dose: Not Given Mometasone Furoate (Asmanex 110mcg -) 1 puff IH BID [facility] Last Admin: 01/26/17 11:02 Dose: 1 puff Nicotine (Nicoderm Patch -) 7 mg TD DAILY [facility] Last Admin: 01/26/17 11:02 Dose: Not Given Pantoprazole Sodium (Protonix -) 40 mg PO DAILY [facility] Last Admin: 01/26/17 11:01 Dose: 40 mg Sodium Hypochlorite (Dakin's Solution 0.25% (Half-Strength) -) 1 applic TP BID [facility] Last Admin: 01/26/17 15:01 Dose: 1 applic Valsartan (Diovan -) 80 mg PO DAILY [facility] Last Admin: 01/26/17 11:01 Dose: 80 mg Warfarin Sodium (Coumadin -) 4 mg PO Q2D@1800 [facility] Last Admin: 01/25/17 17:32 Dose: 4 mg Warfarin Sodium (Coumadin -) 3 mg PO Q2D@1800 [facility] Last Admin: 01/26/17 18:33 Dose: 3 mg Zolpidem Tartrate (Ambien -) 5 mg PO HS PRN Last Admin: 01/25/17 22:32 Dose: 5 mg - Objective Vital Signs: Vital Signs Temperature 97.8 F 01/26/17 15:50 Pulse Rate 85 01/26/17 15:50 Respiratory Rate 18 01/26/17 15:50 Blood Pressure 133/71 01/26/17 15:50 O2 Sat by Pulse Oximetry (%) 95 01/26/17 09:00 Constitutional: Yes: No Distress, Calm Cardiovascular: Yes: Regular Rate and Rhythm, S1, S2 Respiratory: Yes: Regular, CTA Bilaterally (except coarse at bases) Gastrointestinal: Yes: Normal Bowel Sounds, Soft. No: Tenderness Edema: No Neurological: Yes: Alert, Oriented Labs: CBC, BMP 01/26/17 06:20 01/26/17 06:20 INR, PTT INR 2.09 (0.82-1.09) H 01/26/17 05:35 Problem List - Problems (1) Generalized weakness Code(s): R53.1 - WEAKNESS (2) Muscular deconditioning Code(s): R29.898 - OTH SYMPTOMS AND SIGNS INVOLVING THE MUSCULOSKELETAL SYSTEM (3) COPD (chronic obstructive pulmonary disease) Code(s): J44.9 - CHRONIC OBSTRUCTIVE PULMONARY DISEASE, UNSPECIFIED Qualifiers: COPD type: unspecified COPD Qualified Code(s): J44.9 - Chronic obstructive pulmonary disease, unspecified (4) Diabetes mellitus type 2, noninsulin dependent Code(s): E11.9 - TYPE 2 DIABETES MELLITUS WITHOUT COMPLICATIONS (5) H/O: CVA (cerebrovascular accident) Code(s): Z86.73 - PRSNL HX OF TIA (TIA), AND CEREB INFRC W/O RESID DEFICITS (6) Open wound of abdominal wall, anterior, complicated Code(s): S31.109A - UNSP OPN WND ABD WALL, UNSP Q W/O PENET PERIT CAV, INIT Qualifiers: Encounter type: subsequent encounter Qualified Code(s): S31.109D - Unspecified open wound of abdominal wall, unspecified quadrant without penetration into peritoneal cavity, subsequent encounter (7) Perforated sigmoid colon Code(s): K63.1 - PERFORATION OF INTESTINE (NONTRAUMATIC) (8) Protein calorie malnutrition Code(s): E46 - UNSPECIFIED PROTEIN-CALORIE MALNUTRITION Qualifiers: Protein-calorie malnutrition severity: severe Qualified Code(s): E43 - Unspecified severe protein-calorie malnutrition (9) Hyponatremia Code(s): E87.1 - HYPO-OSMOLALITY AND HYPONATREMIA (10) Hypoalbuminemia Code(s): E88.09 - OTH DISORDERS OF PLASMA-PROTEIN METABOLISM, NEC (11) Abdominal wall abscess Code(s): L02.211 - CUTANEOUS ABSCESS OF ABDOMINAL WALL (12) Liver lesion, left lobe Code(s): K76.89 - OTHER SPECIFIED DISEASES OF LIVER (13) Liver lesion, right lobe Code(s): K76.89 - OTHER SPECIFIED DISEASES OF LIVER Assessment/Plan S/p Abd/ Pelvis CT scan; To f/u with Sx. Cont meds; pain medication PRN. To f/u with SX. To monitor INR. PT. I encouraged pt to increase PO fluid intake and OOBTC. 1 mg Coumadin extra tonight AM labs. Case was d/w pt's nurse.
[2017-01-26] MEDS: ATORVASTATIN CA 20 MG TABLET (FP) PO SCH (21:46)
[2017-01-26] MEDS: ZOLPIDEM TARTRATE 5 MG TABLET PO PRN (23:00)
[2017-01-27] MEDS: INSULIN SLIDING SCALE (NOVOLOG) 1 VIAL SQ SCH ×3 (06:30→16:41)
[2017-01-27 07:37] LABS: MCH 30.4 pg (25.7-33.7); MEAN CELL VOLUME 92.1 fl (80-96); PLATELET COUNT 380 K/MM3 (134-434); RDW 15.8 % (11.6-15.6); WHITE BLOOD COUNT 8.7 K/mm3 (4.0-10.0)
[2017-01-27 07:50] LABS: ANION GAP 8 (8-16); CALCIUM 8.6 mg/dL (8.5-10.1); CO2 29 mmol/L (21-32); GLUCOSE,RANDOM 110 mg/dL (74-106)
[2017-01-27 08:24] LABS: INR 2.16 (0.82-1.09); PROTHROMBIN TIME (PATIENT) 24.4 SEC (9.98-11.88)
[2017-01-27] MEDS: CYANOCOBALAMIN 1,000 MCG TABLET (FP) PO SCH (09:46)
[2017-01-27] MEDS: NICOTINE 7 MG/24 HOURS TOPICAL PATCH TD SCH ×2 (09:46→09:56)
[2017-01-27] MEDS: PANTOPRAZOLE 40 MG TABLET (FP) PO SCH (09:46)
[2017-01-27] MEDS: ANASTROZOLE 1 MG TABLET PO SCH (09:47)
[2017-01-27] MEDS: MOMETASONE FUROATE 110 MCG/IH INHALER IH SCH ×2 (09:47→21:08)
[2017-01-27] MEDS: ACETAMINOPHEN WITH CODEINE 300MG/30MG TABLET PO PRN ×2 (09:48→20:34)
[2017-01-27] MEDS: buPROPion HCL 75 MG TABLET PO SCH ×2 (09:48→21:08)
--- NOTE | 2017-01-27 10:40 | PN ---
Progress Note, Physician History of Present Illness: Pt w/o fever, chills, abd pain, N, V. Pt w/o SOB, CP, palp. - Current Medication List Current Medications: Active Medications Acetaminophen/Codeine Phosphate (Tylenol # 3 -) 1 tab PO Q6H PRN PRN Reason: PAIN LEVEL 1-5 Last Admin: 01/27/17 09:48 Dose: 1 tab Acetaminophen/Codeine Phosphate (Tylenol # 3 -) 2 tab PO Q6H PRN PRN Reason: PAIN LEVEL 6-10 Last Admin: 01/26/17 21:50 Dose: 2 tab Anastrozole (Arimidex -) 1 mg PO DAILY [facility] Last Admin: 01/27/17 09:47 Dose: 1 mg Atorvastatin Calcium (Lipitor -) 20 mg PO HS [facility] Last Admin: 01/26/17 21:46 Dose: 20 mg Bupropion HCl (Wellbutrin -) 150 mg PO BID [facility] Last Admin: 01/27/17 09:48 Dose: 150 mg Carvedilol (Coreg -) 25 mg PO BID [facility] Last Admin: 01/26/17 21:46 Dose: 25 mg Cyanocobalamin (Vitamin B12 -) 1,000 mcg PO DAILY [facility] Last Admin: 01/27/17 09:46 Dose: 1,000 mcg Furosemide (Lasix -) 20 mg PO DAILY [facility] Last Admin: 01/26/17 11:01 Dose: 20 mg Sodium Chloride (Normal Saline -) 1,000 mls @ 50 mls/hr IV ASDIR [facility] Stop: 01/27/17 16:13 Last Admin: 01/26/17 19:25 Dose: 50 mls/hr Insulin Aspart (Novolog Vial Sliding Scale -) 1 vial SQ TIDAC [facility] PRN Reason: Protocol Last Admin: 01/27/17 06:30 Dose: Not Given Mometasone Furoate (Asmanex 110mcg -) 1 puff IH BID [facility] Last Admin: 01/27/17 09:47 Dose: 1 puff Nicotine (Nicoderm Patch -) 7 mg TD DAILY [facility] Last Admin: 01/27/17 09:56 Dose: Not Given Pantoprazole Sodium (Protonix -) 40 mg PO DAILY [facility] Last Admin: 01/27/17 09:46 Dose: 40 mg Sodium Hypochlorite (Dakin's Solution 0.25% (Half-Strength) -) 1 applic TP BID [facility] Last Admin: 01/26/17 23:00 Dose: 1 applic Valsartan (Diovan -) 80 mg PO DAILY [facility] Last Admin: 01/26/17 11:01 Dose: 80 mg Warfarin Sodium (Coumadin -) 4 mg PO Q2D@1800 [facility] Last Admin: 01/25/17 17:32 Dose: 4 mg Warfarin Sodium (Coumadin -) 3 mg PO Q2D@1800 [facility] Last Admin: 01/26/17 18:33 Dose: 3 mg Zolpidem Tartrate (Ambien -) 5 mg PO HS PRN Last Admin: 01/26/17 23:00 Dose: 5 mg - Objective Vital Signs: Vital Signs Temperature 98.1 F 01/27/17 06:00 Pulse Rate 75 01/27/17 06:00 Respiratory Rate 18 01/27/17 06:00 Blood Pressure 125/57 01/27/17 06:00 O2 Sat by Pulse Oximetry (%) 97 01/26/17 21:00 Constitutional: Yes: No Distress, Calm Cardiovascular: Yes: Pulse Irregular, S1, S2 Respiratory: Yes: Regular, CTA Bilaterally (atelectasis at bases) Gastrointestinal: Yes: Normal Bowel Sounds, Soft. No: Tenderness Edema: No Neurological: Yes: Alert, Oriented Labs: CBC, BMP 01/27/17 06:45 01/27/17 06:45 INR, PTT INR 2.16 (0.82-1.09) H 01/27/17 06:45 Problem List - Problems (1) Generalized weakness Code(s): R53.1 - WEAKNESS (2) Muscular deconditioning Code(s): R29.898 - OTH SYMPTOMS AND SIGNS INVOLVING THE MUSCULOSKELETAL SYSTEM (3) COPD (chronic obstructive pulmonary disease) Code(s): J44.9 - CHRONIC OBSTRUCTIVE PULMONARY DISEASE, UNSPECIFIED Qualifiers: COPD type: unspecified COPD Qualified Code(s): J44.9 - Chronic obstructive pulmonary disease, unspecified (4) Diabetes mellitus type 2, noninsulin dependent Code(s): E11.9 - TYPE 2 DIABETES MELLITUS WITHOUT COMPLICATIONS (5) H/O: CVA (cerebrovascular accident) Code(s): Z86.73 - PRSNL HX OF TIA (TIA), AND CEREB INFRC W/O RESID DEFICITS (6) Open wound of abdominal wall, anterior, complicated Code(s): S31.109A - UNSP OPN WND ABD WALL, UNSP Q W/O PENET PERIT CAV, INIT Qualifiers: Encounter type: subsequent encounter Qualified Code(s): S31.109D - Unspecified open wound of abdominal wall, unspecified quadrant without penetration into peritoneal cavity, subsequent encounter (7) Perforated sigmoid colon Code(s): K63.1 - PERFORATION OF INTESTINE (NONTRAUMATIC) (8) Protein calorie malnutrition Code(s): E46 - UNSPECIFIED PROTEIN-CALORIE MALNUTRITION Qualifiers: Protein-calorie malnutrition severity: severe Qualified Code(s): E43 - Unspecified severe protein-calorie malnutrition (9) Hyponatremia Code(s): E87.1 - HYPO-OSMOLALITY AND HYPONATREMIA (10) Hypoalbuminemia Code(s): E88.09 - OTH DISORDERS OF PLASMA-PROTEIN METABOLISM, NEC (11) Abdominal wall abscess Code(s): L02.211 - CUTANEOUS ABSCESS OF ABDOMINAL WALL (12) Liver lesion, left lobe Code(s): K76.89 - OTHER SPECIFIED DISEASES OF LIVER (13) Liver lesion, right lobe Code(s): K76.89 - OTHER SPECIFIED DISEASES OF LIVER Assessment/Plan S/p Abd/ Pelvis CT scan; To f/u with Sx. Cont meds; pain medication PRN. To f/u with SX. To monitor INR. PT. I encouraged pt to increase PO fluid intake and OOBTC and PT. AM labs. Case was d/w pt's nurse.
[2017-01-27] MEDS: VALSARTAN 80 MG TABLET (UD) PO SCH (12:02)
[2017-01-27] MEDS: SODIUM HYPOCHLORITE 0.25%- 473 ML BULK BOTTLE TP SCH ×2 (12:03→21:08)
[2017-01-27] MEDS: FUROSEMIDE 20 MG TABLET (FP) PO SCH (12:05)
[2017-01-27] MEDS: CARVEDILOL 25 MG TABLET (FP) PO SCH ×2 (12:05→21:08)
--- NOTE | 2017-01-27 13:27 | PN ---
Progress Note, Physician Chief Complaint: weakness and wound concerns History of Present Illness: No overnight events. Pt in good spirits. Ostomy bag leaking. Tolerating diet. Up with PT in room because of isolation status. - Current Medication List Current Medications: Active Medications Acetaminophen/Codeine Phosphate (Tylenol # 3 -) 1 tab PO Q6H PRN PRN Reason: PAIN LEVEL 1-5 Last Admin: 01/27/17 09:48 Dose: 1 tab Acetaminophen/Codeine Phosphate (Tylenol # 3 -) 2 tab PO Q6H PRN PRN Reason: PAIN LEVEL 6-10 Last Admin: 01/26/17 21:50 Dose: 2 tab Anastrozole (Arimidex -) 1 mg PO DAILY [facility] Last Admin: 01/27/17 09:47 Dose: 1 mg Atorvastatin Calcium (Lipitor -) 20 mg PO HS [facility] Last Admin: 01/26/17 21:46 Dose: 20 mg Bupropion HCl (Wellbutrin -) 150 mg PO BID [facility] Last Admin: 01/27/17 09:48 Dose: 150 mg Carvedilol (Coreg -) 25 mg PO BID [facility] Last Admin: 01/27/17 12:05 Dose: 25 mg Cyanocobalamin (Vitamin B12 -) 1,000 mcg PO DAILY [facility] Last Admin: 01/27/17 09:46 Dose: 1,000 mcg Furosemide (Lasix -) 20 mg PO DAILY [facility] Last Admin: 01/27/17 12:05 Dose: 20 mg Sodium Chloride (Normal Saline -) 1,000 mls @ 50 mls/hr IV ASDIR [facility] Stop: 01/27/17 16:13 Last Admin: 01/26/17 19:25 Dose: 50 mls/hr Insulin Aspart (Novolog Vial Sliding Scale -) 1 vial SQ TIDAC [facility] PRN Reason: Protocol Last Admin: 01/27/17 12:03 Dose: Not Given Mometasone Furoate (Asmanex 110mcg -) 1 puff IH BID [facility] Last Admin: 01/27/17 09:47 Dose: 1 puff Nicotine (Nicoderm Patch -) 7 mg TD DAILY [facility] Last Admin: 01/27/17 09:56 Dose: Not Given Pantoprazole Sodium (Protonix -) 40 mg PO DAILY [facility] Last Admin: 01/27/17 09:46 Dose: 40 mg Sodium Hypochlorite (Dakin's Solution 0.25% (Half-Strength) -) 1 applic TP BID [facility] Last Admin: 01/27/17 12:03 Dose: Not Given Valsartan (Diovan -) 80 mg PO DAILY [facility] Last Admin: 01/27/17 12:02 Dose: Not Given Warfarin Sodium (Coumadin -) 4 mg PO Q2D@1800 [facility] Last Admin: 01/25/17 17:32 Dose: 4 mg Warfarin Sodium (Coumadin -) 3 mg PO Q2D@1800 [facility] Last Admin: 01/26/17 18:33 Dose: 3 mg Zolpidem Tartrate (Ambien -) 5 mg PO HS PRN Last Admin: 01/26/17 23:00 Dose: 5 mg - Objective Vital Signs: Vital Signs Temperature 97.9 F 01/27/17 10:00 Pulse Rate 84 01/27/17 11:17 Respiratory Rate 18 01/27/17 11:17 Blood Pressure 135/50 01/27/17 11:17 O2 Sat by Pulse Oximetry (%) 97 01/26/17 21:00 Constitutional: Yes: No Distress, Calm, Obese Gastrointestinal: Yes: Soft, Abdomen, Obese, Tenderness (only in wounds with dressing changes and at drain site, mild), Other (colostomy p/p/p soft brown stool, site clean, no skin irritation, base appliance replaced with skin prep; IR drain with grayish cloudy output in bulb; RLQ drain site with small strikethrough on dressing; midline wounds clean, granulating, dressings changed with Dakin's dampened Kerlix). No: Distention Extremities: No: Cool, Cyanosis Integumentary: Yes: Incision (midline and RLQ). No: Rash Wound/Incision: Yes: Dressing Removed (midline redone (see above), will do RLQ today as well), Unapproximated (midline and RLQ) Neurological: Yes: Alert, Oriented Psychiatric: Yes: Alert, Oriented Labs: CBC, BMP 01/27/17 06:45 01/27/17 06:45 INR, PTT INR 2.16 (0.82-1.09) H 01/27/17 06:45 Problem List - Problems (1) Postoperative fistula Assessment/Plan: see below - fistula present from abdominal wall collection to distal rectum and to colostomy limb, now controlled out drain tract through skin maintain drain monitor output Code(s): T81.83XA - PERSISTENT POSTPROCEDURAL FISTULA, INITIAL ENCOUNTER Qualifiers: Encounter type: initial encounter Qualified Code(s): T81.83XA - Persistent postprocedural fistula, initial encounter (2) 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 Code(s): K63.2 - FISTULA OF INTESTINE (3) Rectocutaneous fistula Code(s): K60.4 - RECTAL FISTULA (4) Open wound of abdominal wall, anterior, complicated Assessment/Plan: Midline wounds changed and repacked with Dakin's-dampened Kerlix gauze - to continue BID. RLQ drain site will be repacked with 1/4" plain ribbon gauze. improving. Will continue daily. Code(s): S31.109A - UNSP OPN WND ABD WALL, UNSP Q W/O PENET PERIT CAV, INIT Qualifiers: Encounter type: subsequent encounter Qualified Code(s): S31.109D - Unspecified open wound of abdominal wall, unspecified quadrant without penetration into peritoneal cavity, subsequent encounter (5) Disruption of internal operation (surgical) wound, not elsewhere classified , subsequent encounter Assessment/Plan: wound bases granulating well, continue dressing changes. Code(s): T81.32XD - DISRUPTION OF INTERNAL OPERATION (SURGICAL) WOUND, NEC, SUBS (6) Colostomy in place Assessment/Plan: appliance base changed soft brown stool from ostomy, no liquid output appears to have at least small fistula tract from abdominal wall collection to colostomy limb, and from abd wall to distal rectal limb Code(s): Z93.3 - COLOSTOMY STATUS (7) Abdominal wall abscess Assessment/Plan: s/p IR perc drain placement with evacuation of initial fluid collection flushing with 5ml saline tid - continue through today, then will stop flushing abscessogram does show contrast tract to distal rectum and to colostomy limb controlled fistula(s) may close with continued decompression of drain tract plan to leave drain in place for now Code(s): L02.211 - CUTANEOUS ABSCESS OF ABDOMINAL WALL (8) Protein calorie malnutrition Assessment/Plan: strawberry Glucerna supplements with each meal pt with improving appetite but had not been eating well for weeks albumin low, wounds slow to heal continue dietary supplements Code(s): E46 - UNSPECIFIED PROTEIN-CALORIE MALNUTRITION Qualifiers: Protein-calorie malnutrition severity: severe Qualified Code(s): E43 - Unspecified severe protein-calorie malnutrition (9) Generalized weakness Assessment/Plan: PT to continue and work with patient on stairs as well as walking. She will need to be able to navigate home stairs daily on discharge to keep up conditioning and leave home for appointments. Pt should be up/OOB at least to chair for meals and as often as able, with ambulation with assistance. Commode at bedside is ok if pt will alert nurses when she needs to get up to use bathroom for assistance with getting OOB. Isolation status limits ability to take patient to gym for PT Code(s): R53.1 - WEAKNESS (10) Muscular deconditioning Code(s): R29.898 - OTH SYMPTOMS AND SIGNS INVOLVING THE MUSCULOSKELETAL SYSTEM (11) Anemia Code(s): D64.9 - ANEMIA, UNSPECIFIED Qualifiers: Anemia type: unspecified type Qualified Code(s): D64.9 - Anemia, unspecified (12) H/O: CVA (cerebrovascular accident) Code(s): Z86.73 - PRSNL HX OF TIA (TIA), AND CEREB INFRC W/O RESID DEFICITS (13) Anticoagulant long-term use Assessment/Plan: INR therapeutic. on coumadin. Code(s): Z79.01 - M[facility] (CURRENT) USE OF 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 (14) COPD without exacerbation Assessment/Plan: on asmanex bid Code(s): J44.9 - CHRONIC OBSTRUCTIVE PULMONARY DISEASE, UNSPECIFIED (15) Cancer of left breast Assessment/Plan: on anastrozole oncology consulted while pt is here Code(s): C50.912 - MALIGNANT NEOPLASM OF UNSPECIFIED SITE OF LEFT FEMALE BREAST Qualifiers: Breast location: upper outer quadrant of breast Estrogen receptor status: positive Patient sex: female Qualified Code(s): C50.412 - Malignant neoplasm of upper-outer quadrant of left female breast (16) Depression Assessment/Plan: on wellbutrin with improving mood Code(s): F32.9 - MAJOR DEPRESSIVE DISORDER, SINGLE EPISODE, UNSPECIFIED Qualifiers: Depression Type: reactive depression Qualified Code(s): F32.9 - Major depressive disorder, single episode, unspecified (17) Diabetes mellitus type 2, noninsulin dependent Assessment/Plan: not requiring medication at this time, on diabetic diet Code(s): E11.9 - TYPE 2 DIABETES MELLITUS WITHOUT COMPLICATIONS (18) Hypertension Assessment/Plan: on coreg and diovan, on lasix Code(s): I10 - ESSENTIAL (PRIMARY) HYPERTENSION Qualifiers: Hypertension type: essential hypertension Qualified Code(s): I10 - Essential (primary) hypertension (19) CHF (congestive heart failure) Assessment/Plan: on coreg and lasix, no acute exacerbation Code(s): I50.9 - HEART FAILURE, UNSPECIFIED Qualifiers: Congestive heart failure type: systolic Congestive heart failure chronicity : chronic Qualified Code(s): I50.22 - Chronic systolic (congestive) heart failure (20) ATN (acute tubular necrosis) Assessment/Plan: CT shows one kidney still somewhat affected - on IV hydration through today, renew through tomorrow - NS at low rate for now Code(s): N17.0 - ACUTE KIDNEY FAILURE WITH TUBULAR NECROSIS
[2017-01-27] MEDS: SODIUM CHLORIDE 1,000 ML IV SCH (15:32)
[2017-01-27] MEDS: WARFARIN NA 2 MG TABLET (UD) PO SCH (17:09)
[2017-01-27] MEDS: ATORVASTATIN CA 20 MG TABLET (FP) PO SCH (21:08)
[2017-01-27] MEDS: ZOLPIDEM TARTRATE 5 MG TABLET PO PRN (21:08)
[2017-01-28] MEDS: INSULIN SLIDING SCALE (NOVOLOG) 1 VIAL SQ SCH ×3 (06:22→17:04)
[2017-01-28 07:28] LABS: INR 2.41 (0.82-1.09); PROTHROMBIN TIME (PATIENT) 27.2 SEC (9.98-11.88)
[2017-01-28 07:54] LABS: ANION GAP 8 (8-16); CALCIUM 8.4 mg/dL (8.5-10.1); CO2 27 mmol/L (21-32); CREATININE 0.9 mg/dL (0.55-1.02); GLUCOSE,RANDOM 113 mg/dL (74-106)
[2017-01-28] MEDS ORDERED: INSULIN (NOVOLOG) ASPART 100 UNITS/ML 10ML VIAL ONE (12:03)
--- NOTE | 2017-01-28 12:04 | PN ---
Progress Note, Physician History of Present Illness: Pt w/o fever, chills, abd pain, N, V. Pt w/o SOB, CP, palp. Had PT a little while ago, no SOB, CP, palp, dizziness. - Current Medication List Current Medications: Active Medications Acetaminophen/Codeine Phosphate (Tylenol # 3 -) 1 tab PO Q6H PRN PRN Reason: PAIN LEVEL 1-5 Last Admin: 01/27/17 20:34 Dose: 1 tab Acetaminophen/Codeine Phosphate (Tylenol # 3 -) 2 tab PO Q6H PRN PRN Reason: PAIN LEVEL 6-10 Last Admin: 01/26/17 21:50 Dose: 2 tab Anastrozole (Arimidex -) 1 mg PO DAILY [facility] Last Admin: 01/27/17 09:47 Dose: 1 mg Atorvastatin Calcium (Lipitor -) 20 mg PO HS [facility] Last Admin: 01/27/17 21:08 Dose: 20 mg Bupropion HCl (Wellbutrin -) 150 mg PO BID [facility] Last Admin: 01/27/17 21:08 Dose: 150 mg Carvedilol (Coreg -) 25 mg PO BID [facility] Last Admin: 01/27/17 21:08 Dose: 25 mg Cyanocobalamin (Vitamin B12 -) 1,000 mcg PO DAILY [facility] Last Admin: 01/27/17 09:46 Dose: 1,000 mcg Furosemide (Lasix -) 20 mg PO DAILY [facility] Last Admin: 01/27/17 12:05 Dose: 20 mg Sodium Chloride (Normal Saline -) 1,000 mls @ 50 mls/hr IV ASDIR [facility] Stop: 01/28/17 14:15 Last Admin: 01/27/17 15:32 Dose: 50 mls/hr Insulin Aspart (Novolog Vial Sliding Scale -) 1 vial SQ TIDAC [facility] PRN Reason: Protocol Last Admin: 01/28/17 06:22 Dose: Not Given Mometasone Furoate (Asmanex 110mcg -) 1 puff IH BID [facility] Last Admin: 01/27/17 21:08 Dose: 1 puff Nicotine (Nicoderm Patch -) 7 mg TD DAILY [facility] Last Admin: 01/27/17 09:56 Dose: Not Given Pantoprazole Sodium (Protonix -) 40 mg PO DAILY [facility] Last Admin: 01/27/17 09:46 Dose: 40 mg Sodium Hypochlorite (Dakin's Solution 0.25% (Half-Strength) -) 1 applic TP BID [facility] Last Admin: 01/27/17 21:08 Dose: 1 applic Valsartan (Diovan -) 80 mg PO DAILY [facility] Last Admin: 01/27/17 12:02 Dose: Not Given Warfarin Sodium (Coumadin -) 4 mg PO Q2D@1800 [facility] Last Admin: 01/27/17 17:09 Dose: 4 mg Warfarin Sodium (Coumadin -) 3 mg PO Q2D@1800 [facility] Last Admin: 01/26/17 18:33 Dose: 3 mg Zolpidem Tartrate (Ambien -) 5 mg PO PRN Last Admin: 01/27/17 21:08 Dose: 5 mg - Objective Vital Signs: Vital Signs Temperature 97.8 F 01/28/17 06:00 Pulse Rate 83 01/28/17 06:00 Respiratory Rate 20 01/28/17 06:00 Blood Pressure 141/69 01/28/17 06:00 O2 Sat by Pulse Oximetry (%) 96 01/27/17 21:00 Constitutional: Yes: No Distress, Calm Cardiovascular: Yes: Regular Rate and Rhythm, S1, S2 Respiratory: Yes: Regular, Other (bilat atelectasis atbases) Gastrointestinal: Yes: Normal Bowel Sounds, Soft, Other (+ colostomy bag, + drainage) Edema: No Neurological: Yes: Alert, Oriented Labs: CBC, BMP 01/27/17 06:45 01/28/17 06:15 INR, PTT INR 2.41 (0.82-1.09) H 01/28/17 06:15 Problem List - Problems (1) Generalized weakness Code(s): R53.1 - WEAKNESS (2) Muscular deconditioning Code(s): R29.898 - OTH SYMPTOMS AND SIGNS INVOLVING THE MUSCULOSKELETAL SYSTEM (3) COPD (chronic obstructive pulmonary disease) Code(s): J44.9 - CHRONIC OBSTRUCTIVE PULMONARY DISEASE, UNSPECIFIED Qualifiers: COPD type: unspecified COPD Qualified Code(s): J44.9 - Chronic obstructive pulmonary disease, unspecified (4) Diabetes mellitus type 2, noninsulin dependent Code(s): E11.9 - TYPE 2 DIABETES MELLITUS WITHOUT COMPLICATIONS (5) H/O: CVA (cerebrovascular accident) Code(s): Z86.73 - PRSNL HX OF TIA (TIA), AND CEREB INFRC W/O RESID DEFICITS (6) Open wound of abdominal wall, anterior, complicated Code(s): S31.109A - UNSP OPN WND ABD WALL, UNSP Q W/O PENET PERIT CAV, INIT Qualifiers: Encounter type: subsequent encounter Qualified Code(s): S31.109D - Unspecified open wound of abdominal wall, unspecified quadrant without penetration into peritoneal cavity, subsequent encounter (7) Perforated sigmoid colon Code(s): K63.1 - PERFORATION OF INTESTINE (NONTRAUMATIC) (8) Protein calorie malnutrition Code(s): E46 - UNSPECIFIED PROTEIN-CALORIE MALNUTRITION Qualifiers: Protein-calorie malnutrition severity: severe Qualified Code(s): E43 - Unspecified severe protein-calorie malnutrition (9) Hyponatremia Code(s): E87.1 - HYPO-OSMOLALITY AND HYPONATREMIA (10) Hypoalbuminemia Code(s): E88.09 - OTH DISORDERS OF PLASMA-PROTEIN METABOLISM, NEC (11) Abdominal wall abscess Code(s): L02.211 - CUTANEOUS ABSCESS OF ABDOMINAL WALL (12) Postoperative fistula Assessment/Plan: to monitor per surgery. Code(s): T81.83XA - PERSISTENT POSTPROCEDURAL FISTULA, INITIAL ENCOUNTER (13) Liver lesion, left lobe Code(s): K76.89 - OTHER SPECIFIED DISEASES OF LIVER (14) Liver lesion, right lobe Code(s): K76.89 - OTHER SPECIFIED DISEASES OF LIVER Assessment/Plan S/p Abd/ Pelvis CT scan. To f/u with Sx if additional intervention is needed.. Cont meds; pain medication PRN. To monitor INR. PT. I encouraged pt to increase PO fluid intake and OOBTC and PT. AM labs. Case was d/w pt's nurse.
[2017-01-28] MEDS: buPROPion HCL 75 MG TABLET PO SCH (12:25)
[2017-01-28] MEDS: PANTOPRAZOLE 40 MG TABLET (FP) PO SCH (12:25)
[2017-01-28] MEDS: CYANOCOBALAMIN 1,000 MCG TABLET (FP) PO SCH (12:25)
[2017-01-28] MEDS: ANASTROZOLE 1 MG TABLET PO SCH (12:25)
[2017-01-28] MEDS: MOMETASONE FUROATE 110 MCG/IH INHALER IH SCH (12:26)
[2017-01-28] MEDS: NICOTINE 7 MG/24 HOURS TOPICAL PATCH TD SCH (12:26)
[2017-01-28] MEDS: VALSARTAN 80 MG TABLET (UD) PO SCH (12:30)
[2017-01-28] MEDS: FUROSEMIDE 20 MG TABLET (FP) PO SCH (12:30)
[2017-01-28] MEDS: CARVEDILOL 25 MG TABLET (FP) PO SCH (12:30)
[2017-01-28] MEDS: SODIUM CHLORIDE 1,000 ML IV SCH (14:15)
[2017-01-28] MEDS: ACETAMINOPHEN WITH CODEINE 300MG/30MG TABLET PO PRN (15:19)
[2017-01-28 15:36] VITALS: BP 117/51; PULSE 80; TEMP 98.2
--- NOTE | 2017-01-28 15:57 | CONSULT ---
Consult Consult Specialty:: hematology/oncology - History of Present Illness History of Present Illness: 66 y/o female with h/o HTN, HLP , Systolic heart failure , recent colectomy/ sutton procedure due to sigmoid colon perforation, Non insulin dependent DM who was admitted for abd wound and also a fistula. She also has metastatic breast cancer and is on arimidex. Oncology consulted for the above. Pt seen and examined. - History Source History Provided By: Patient, Medical Record Limitations to Obtaining History: No Limitations - Past Medical History [employer]: Yes: CVA (no residual) Cardio/Vascular: Yes: CHF (systolic), HTN (concern for L renal artery stenosis) , Hyperlipdemia Pulmonary: Yes: COPD Gastrointestinal: Yes: Other (obesity) Renal/: Yes: Other (L renal artery stenosis) Psych: Yes: Depression (situational - related to colostomy and recent hospitalization) Musculoskeletal: Yes: Osteoarthritis Endocrine: Yes: Diabetes Mellitus (NIDDM) Dermatology: Yes: Basal Cell (multiple sites removed) Additional Medical History: legally blind, 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 No: Colonoscopy (never had) - Alcohol/Substance Use Hx Alcohol Use: No (social in past, not recently) History of Substance Use: reports: None - Smoking History Smoking history: Former smoker Have you smoked in the past 12 months: Yes Aproximately how many cigarettes per day: 16 If you are a former smoker, when did you quit?: nov 2016 - Social History Usual Living Arrangement: Custodial (last several weeks since hospital d/c) ADL: Support Services History of Recent Travel: No Home Medications - Allergies Allergies/Adverse Reactions: Allergies Allergy/AdvReac Type Severity Reaction Status Date / Time No Known Allergies Allergy Verified 01/17/17 15:43 - Home Medications Home Medications: Ambulatory Orders Anastrozole [Arimidex -] 1 mg PO DAILY 01/17/17 Atorvastatin Calcium 20 mg PO HS 01/17/17 Bupropion HCl [Wellbutrin -] 75 mg PO BID 01/17/17 Carvedilol 25 mg PO BID 01/17/17 Cyanocobalamin [Vitamin B12 -] 1,000 mcg PO DAILY 01/17/17 Furosemide 20 mg PO DAILY 01/17/17 Nicotine Patch [Nicoderm Patch -] 1 patch TD DAILY 01/17/17 Pantoprazole Sodium [Protonix] 40 mg PO DAILY 01/17/17 Valsartan 80 mg PO DAILY 01/17/17 Acetaminophen W/ Codeine #3 [Tylenol # 3 -] 1 tab PO Q6H PRN #30 tablet MDD 4 Acetaminophen W/ Codeine #3 [Tylenol # 3 -] 2 tab PO Q6H PRN #30 tablet MDD 4 Insulin Sliding Scale [Novolog Vial Sliding Scale -] 1 vial SQ TIDAC units Mometasone Furoate [Asmanex 110Mcg -] 1 puff IH BID inhaler 01/28/17 Sodium Hypochlorite [Dakin's Solution 0.25% (Half-Strength) -] 1 applic TP BID ml 01/28/17 Warfarin Na [Coumadin -] 3 mg PO Q2D@1800 tablet 01/28/17 Warfarin Na [Coumadin -] 4 mg PO Q2D@1800 tablet 01/28/17 Zolpidem Tartrate [Ambien] 5 mg PO HS PRN #30 tablet MDD 1 01/28/17 Family Disease History - Family Disease History Family Disease History: CA: Sister (breast CA) Physical Exam Vital Signs: Vital Signs Temperature 98.2 F 01/28/17 15:34 Pulse Rate 80 01/28/17 15:34 Respiratory Rate 18 01/28/17 15:34 Blood Pressure 117/51 01/28/17 15:34 O2 Sat by Pulse Oximetry (%) 96 01/27/17 21:00 Constitutional: Yes: No Distress, Calm Eyes: Yes: Conjunctiva Clear HENT: Yes: Atraumatic, Normocephalic Neck: Yes: Supple Cardiovascular: Yes: Regular Rate and Rhythm Respiratory: Yes: Regular Gastrointestinal: Yes: Tenderness (mild. drain present) Breast(s): Yes: Mass, Other (rt breast Rt axilalry LAD present) Extremities: Yes: WNL Edema: No Labs: CBC, BMP 01/27/17 06:45 01/28/17 06:15 Imaging - Results X-ray: Report Reviewed Cat Scan: Report Reviewed Assessment/Plan Metastatic Breast ca ( Hormone positive): -c/w Arimedex one mg daily -follows at our office with Anemia: -For screening anemia tests -likely etiology is ACD/ACI in the setting of metastatic breast cancer and acute infection Tx of fistula/abscess; -per surgery on coumadin INR monitoring. Misc: Logistic info for her continued Oncological care: Informed pt about the new insurances that our office accepts as her present insurance is no longer accepted unfortunately. I left the list with her and also in her chart. She is interested in knowing about other providers, information given. She was advised that she could call her present insurance to ask for oncologists that could accept her within geography Our office also informed her sister d/w
--- NOTE | 2017-01-28 16:33 | DS ---
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 Pt was reevaluated by surgery; pt had an Abd/ Pelvis CT scan with PO and IV contrast ( X 2), and a abdominal wall abscess, an intraabdominal collection, a fistula between abdominal wall abscess and colostomy limb and rectum was noticed. Pt abdominal drainage was placed. Pt to be DC'ed to rehab. Condition: Guarded - Instructions Diet, Activity, Other Instructions: To see Dr Mitchell (surgery) in 2 weeks; please call and make appointment. Diet: Low salt, low Cholesterol, ADA. Referrals: Landen Shay MD [Primary Care Provider] - (in 1-2 weeks after DC from Rehab.) Disposition: [facility]USTODIAL [facility]ACILITY - Home Medications Comprehensive Discharge Medication List: Ambulatory Orders this list is might NT be accurate [place] 2 3/4 Bags 1 bag NR ASDIR #30 bag 01/16/17 [place] 2 3/4 [place] 1 ea NR ASDIR #30 kit 01/16/17 Non-Adherent Bandage [Combine Abd] 1 each TP ASDIR #120 bandage 01/16/17 Skin Prep 1 pad NR ASDIR #120 pad 01/16/17 Albuterol Sulfate 0.5% [Ventolin 0.5% -] 1 neb IH TID PRN 01/17/17 Anastrozole [Arimidex -] 1 mg PO DAILY 01/17/17 Atorvastatin Calcium 20 mg PO HS 01/17/17 Bupropion HCl [Wellbutrin -] 75 mg PO BID 01/17/17 Calcium Carb, Citrate/Vit D3 [Calcium + D3 ER Tablet] 1 each PO BID 01/17/17 Carvedilol 25 mg PO BID 01/17/17 Cyanocobalamin [Vitamin B12 -] 1,000 mcg PO DAILY 01/17/17 Furosemide 20 mg PO DAILY 01/17/17 Insulin Aspart [Novolog] See Protocol SQ AC 01/17/17 Mometasone Furoate [Asmanex] 1 puff IH BID 01/17/17 Nicotine Patch [Nicoderm Patch -] 1 patch TD DAILY 01/17/17 Pantoprazole Sodium [Protonix] 40 mg PO DAILY 01/17/17 Valsartan 80 mg PO DAILY 01/17/17 Warfarin Sodium [Coumadin] 3 mg PO HS 01/17/17
--- NOTE | 2017-01-28 16:53 | PN ---
Progress Note, Physician Chief Complaint: weakness and wound concerns History of Present Illness: No overnight events. Pt in good spirits. Ostomy bag holding. Tolerating diet. Up with PT to try stairs today. IR drain with 95ml out yesterday, 20ml so far today. - Current Medication List Current Medications: Active Medications Acetaminophen/Codeine Phosphate (Tylenol # 3 -) 1 tab PO Q6H PRN PRN Reason: PAIN LEVEL 1-5 Last Admin: 01/28/17 15:19 Dose: 1 tab Acetaminophen/Codeine Phosphate (Tylenol # 3 -) 2 tab PO Q6H PRN PRN Reason: PAIN LEVEL 6-10 Last Admin: 01/26/17 21:50 Dose: 2 tab Anastrozole (Arimidex -) 1 mg PO DAILY [facility] Last Admin: 01/28/17 12:25 Dose: 1 mg Atorvastatin Calcium (Lipitor -) 20 mg PO HS [facility] Last Admin: 01/27/17 21:08 Dose: 20 mg Bupropion HCl (Wellbutrin -) 150 mg PO BID [facility] Last Admin: 01/28/17 12:25 Dose: 150 mg Carvedilol (Coreg -) 25 mg PO BID [facility] Last Admin: 01/28/17 12:30 Dose: 25 mg Cyanocobalamin (Vitamin B12 -) 1,000 mcg PO DAILY [facility] Last Admin: 01/28/17 12:25 Dose: 1,000 mcg Furosemide (Lasix -) 20 mg PO DAILY [facility] Last Admin: 01/28/17 12:30 Dose: 20 mg Insulin Aspart (Novolog Vial Sliding Scale -) 1 vial SQ TIDAC [facility] PRN Reason: Protocol Last Admin: 01/28/17 12:24 Dose: Not Given Mometasone Furoate (Asmanex 110mcg -) 1 puff IH BID [facility] Last Admin: 01/28/17 12:26 Dose: 1 puff Nicotine (Nicoderm Patch -) 7 mg TD DAILY [facility] Last Admin: 01/28/17 12:26 Dose: Not Given Pantoprazole Sodium (Protonix -) 40 mg PO DAILY [facility] Last Admin: 01/28/17 12:25 Dose: 40 mg Sodium Hypochlorite (Dakin's Solution 0.25% (Half-Strength) -) 1 applic TP BID [facility] Last Admin: 01/27/17 21:08 Dose: 1 applic Valsartan (Diovan -) 80 mg PO DAILY [facility] Last Admin: 01/28/17 12:30 Dose: 80 mg Warfarin Sodium (Coumadin -) 4 mg PO Q2D@1800 [facility] Last Admin: 01/27/17 17:09 Dose: 4 mg Warfarin Sodium (Coumadin -) 3 mg PO Q2D@1800 [facility] Last Admin: 01/26/17 18:33 Dose: 3 mg Zolpidem Tartrate (Ambien -) 5 mg PO PRN Last Admin: 01/27/17 21:08 Dose: 5 mg - Objective Vital Signs: Vital Signs Temperature 98.2 F 01/28/17 15:34 Pulse Rate 80 01/28/17 15:34 Respiratory Rate 18 01/28/17 15:34 Blood Pressure 117/51 01/28/17 15:34 O2 Sat by Pulse Oximetry (%) 96 01/27/17 21:00 Constitutional: Yes: No Distress, Calm, Obese Gastrointestinal: Yes: Soft, Abdomen, Obese, Tenderness (at drain site and wounds sometimes with dressing changes, minimal after pain meds), Other ( colostomy p/p/p of tiny pieces of formed stool - no stool accumulation today in bag, + gas; RLQ drain site and midline wounds with dressings; IR drain with yellow/green fluid in tubing, small amount of cloudy fluid in bulb, pt with some discomfort on drain stripping). No: Distention Extremities: No: Cool, Cyanosis Integumentary: Yes: Incision (midline and RLQ), Other (some moist, pink skin irritation under right breast) Wound/Incision: Yes: Dressing Removed (RLQ repacked with 1/4" plain packing, covered with gauze and tape; midine wounds repacked with Dakin's dampened Kerlix , covered with folded gauze and tape to minimize contact with intact skin), Unapproximated (midline and RLQ - RLQ about 1cm x 0.4cm x ~2.5cm deep ( estimated depth), clean, granulating centeno, some serosang drainage on packing ribbon; midline upper 7 x 6 x 2.5cm deep, lower 6 x 5 x 2.5 cm deep (at deepest points), centeno of both clean and granulating, fascia dehisced at bases with granulating surfaces, no greenish drainage on dressings) Neurological: Yes: Alert, Oriented Psychiatric: Yes: Alert, Oriented Labs: BMP 01/28/17 06:15 INR, PTT INR 2.41 (0.82-1.09) H 01/28/17 06:15 Problem List - Problems (1) Postoperative fistula Assessment/Plan: see below - fistula present from abdominal wall collection to distal rectum and to colostomy limb, now controlled out drain tract through skin maintain drain bulb to suction - does NOT need to be flushed monitor output twice daily and anytime it is at least half full Will check with IR on timing for repeat imaging as outpatient. 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 RLQ drain site repacked with 1/4" plain ribbon gauze, covered with small folded gauze and paper tape. Change packing/dressing daily. Moist/pink area under right breast noted - would use nystatin powder there and advised to keep from scratching/rubbing. Pt to follow up with me in 2 weeks - Rina should call for appointment at . Code(s): S31.109A - UNSP OPN WND ABD WALL, UNSP Q W/O PENET PERIT CAV, INIT Qualifiers: Encounter type: subsequent encounter Qualified Code(s): S31.109D - Unspecified open wound of abdominal wall, unspecified quadrant without penetration into peritoneal cavity, subsequent encounter (5) Disruption of internal operation (surgical) wound, not elsewhere classified , subsequent encounter Assessment/Plan: wound bases granulating well, continue dressing changes. Code(s): T81.32XD - DISRUPTION OF INTERNAL OPERATION (SURGICAL) WOUND, NEC, SUBS (6) Colostomy in place Assessment/Plan: appliance base is holding when changed, base must be cut out asymmetrically ONLY ENOUGH to fit skin margin EXACTLY and NO MORE, up against one edge of base to keep the edge as far from wound edge as possible. Skin prep should be applied around entire peristomal area before base is secured down against skin from stomal edge outward. Change only when leaking. Keep gauze from midline dressings OFF of appliance base to minimize moisture and leakage of base. small fistula tract present from abdominal wall collection to colostomy limb, and from abd wall to distal rectal limb Code(s): Z93.3 - COLOSTOMY STATUS (7) Abdominal wall abscess Assessment/Plan: s/p IR perc drain placement with evacuation of initial fluid collection Drain DOES NOT need to be flushed. abscessogram does show contrast tract to distal rectum and to colostomy limb controlled fistula(s) may close with continued decompression of drain tract plan to leave drain in place for now will check with IR regarding timing for repeat imaging maintain drain bulb to suction and empty at least twice daily - keep record of outputs and bring to surgical followup appointment Code(s): L02.211 - CUTANEOUS ABSCESS OF ABDOMINAL WALL (8) Protein calorie malnutrition Assessment/Plan: strawberry Glucerna supplements with each meal pt with improving appetite but had not been eating well for weeks albumin low, wounds slow to heal continue dietary supplements Code(s): E46 - UNSPECIFIED PROTEIN-CALORIE MALNUTRITION Qualifiers: Protein-calorie malnutrition severity: severe Qualified Code(s): E43 - Unspecified severe protein-calorie malnutrition (9) Generalized weakness Assessment/Plan: PT to continue and work with patient on stairs as well as walking. She will need to be able to navigate home stairs daily on discharge to keep up conditioning and leave home for appointments. Pt should be up/OOB at least to chair for meals and as often as able, with ambulation with assistance. Returning to [facility] today for ongoing rehab. Code(s): R53.1 - WEAKNESS (10) Muscular deconditioning Code(s): R29.898 - OTH SYMPTOMS AND SIGNS INVOLVING THE MUSCULOSKELETAL SYSTEM (11) Anemia Code(s): D64.9 - ANEMIA, UNSPECIFIED Qualifiers: Anemia type: unspecified type Qualified Code(s): D64.9 - Anemia, unspecified (12) H/O: CVA (cerebrovascular accident) Code(s): Z86.73 - PRSNL HX OF TIA (TIA), AND CEREB INFRC W/O RESID DEFICITS (13) Anticoagulant long-term use Assessment/Plan: INR therapeutic. on coumadin. Code(s): Z79.01 - HOSPITALITY INTERN (CURRENT) USE OF 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 (14) COPD without exacerbation Assessment/Plan: on asmanex bid Code(s): J44.9 - CHRONIC OBSTRUCTIVE PULMONARY DISEASE, UNSPECIFIED (15) Cancer of left breast Assessment/Plan: on anastrozole oncology consult noted pt can follow up as outpatient with Dr. Pete before 03/01/17 after that, will need to change insurance coverage or oncologist Code(s): C50.912 - MALIGNANT NEOPLASM OF UNSPECIFIED SITE OF LEFT FEMALE BREAST Qualifiers: Breast location: upper outer quadrant of breast Estrogen receptor status: positive Patient sex: female Qualified Code(s): C50.412 - Malignant neoplasm of upper-outer quadrant of left female breast (16) Depression Assessment/Plan: on wellbutrin 150mg bid with improving mood Code(s): F32.9 - MAJOR DEPRESSIVE DISORDER, SINGLE EPISODE, UNSPECIFIED Qualifiers: Depression Type: reactive depression Qualified Code(s): F32.9 - Major depressive disorder, single episode, unspecified (17) Diabetes mellitus type 2, noninsulin dependent Assessment/Plan: not requiring medication at this time, on diabetic diet Code(s): E11.9 - TYPE 2 DIABETES MELLITUS WITHOUT COMPLICATIONS (18) Hypertension Assessment/Plan: on coreg and diovan, on lasix Code(s): I10 - ESSENTIAL (PRIMARY) HYPERTENSION Qualifiers: Hypertension type: essential hypertension Qualified Code(s): I10 - Essential (primary) hypertension (19) CHF (congestive heart failure) Assessment/Plan: on coreg and lasix, no acute exacerbation Code(s): I50.9 - HEART FAILURE, UNSPECIFIED Qualifiers: Congestive heart failure type: systolic Congestive heart failure chronicity : chronic Qualified Code(s): I50.22 - Chronic systolic (congestive) heart failure (20) ATN (acute tubular necrosis) Assessment/Plan: CT showed one kidney still somewhat affected - had 2 days of NS at low rate, BUN /Cr down to 16/0.9 today monitor labs encourage hydration with noncaffeineated fluids Code(s): N17.0 - ACUTE KIDNEY FAILURE WITH TUBULAR NECROSIS
[2017-01-28] MEDS: WARFARIN NA 3 MG TABLET PO SCH (17:07)
[2017-01-28] MEDS: SODIUM HYPOCHLORITE 0.25%- 473 ML BULK BOTTLE TP SCH (17:08)
== END 2017-01-28 18:28 | DRG 919 ==
LOC: JER 15:14 → JERBED 18:52 → UNDOADMOB 19:14 → JERBED 19:14 → J5S 21:03 → OBSVTOIN 01-19 09:03
PROVIDERS: ADMIT Internal Medicine; ATTEND Specialist
PROC: 0W9F30Z Drainage of Abdominal Wall with Drainage Device, Percutaneous Approach (ICD-10-PCS; principal; 2017-01-21)
DX: T81.83XA Persistent postprocedural fistula, initial encounter (principal); E43 Unspecified severe protein-calorie malnutrition; N17.0 Acute kidney failure with tubular necrosis; K63.2 Fistula of intestine; L02.211 Cutaneous abscess of abdominal wall; E87.1 Hypo-osmolality and hyponatremia; I50.22 Chronic systolic (congestive) heart failure; I11.0 Hypertensive heart disease with heart failure; T81.32XD Disruption of internal operation (surgical) wound, not elsewhere classified, subsequent encounter; S31.109A Unspecified open wound of abdominal wall, unspecified quadrant without penetration into peritoneal cavity, initial encounter; E11.9 Type 2 diabetes mellitus without complications; D64.9 Anemia, unspecified; E88.09 Other disorders of plasma-protein metabolism, not elsewhere classified; K60.4 Rectal fistula; E83.42 Hypomagnesemia; E78.5 Hyperlipidemia, unspecified; J44.9 Chronic obstructive pulmonary disease, unspecified; R29.898 Other symptoms and signs involving the musculoskeletal system; H54.40 Blindness, one eye, unspecified eye; M19.90 Unspecified osteoarthritis, unspecified site; F32.89 Other specified depressive episodes; I70.1 Atherosclerosis of renal artery; E66.8 Other obesity; Z68.30 Body mass index [BMI] 30.0-30.9, adult; Y83.8 Other surgical procedures as the cause of abnormal reaction of the patient, or of later complication, without mention of misadventure at the time of the procedure; K76.9 Liver disease, unspecified; Z85.3 Personal history of malignant neoplasm of breast; Z85.828 Personal history of other malignant neoplasm of skin; Z87.891 Personal history of nicotine dependence; Z86.73 Personal history of transient ischemic attack (TIA), and cerebral infarction without residual deficits; Z93.3 Colostomy status; Z79.84 Long term (current) use of oral hypoglycemic drugs; Z79.01 Long term (current) use of anticoagulants
CPT/HCPCS: 10030; 36415; 49424; 71010-TC; 74176-TC; 74177-TC; 76080-TC; 76098-TC; 77012-TC; 80048; 80053; 81003; 82550; 82728; 83036; 83540; 83550; 83605; 83735; 83880; 84100; 84484; 85025; 85027; 85610; 85651; 87070; 87075; 87086; 87186; 87205; 87899; 93005; 93010; 97116-GP; 97161-GP; 99285-25; C1729; C1769; G0378; Q9967

== ENCOUNTER → 2017-04-01 | Day surgery (SDC) | payer OTHER | END | disposition home or self-care (01) | LOC: JRADIR 12:57 → EDSTATUS 14:00 | PROVIDERS: ATTEND Radiology Diagnostic Radiology | PROC: BW11YZZ Fluoroscopy of Abdomen and Pelvis using Other Contrast (ICD-10-PCS; principal; 2017-04-01) | DX: L02.211 Cutaneous abscess of abdominal wall (principal) | CPT/HCPCS: 49424; 74176-TC; 76000-TC-FY; 76080-TC-FY ==

== ENCOUNTER → 2017-07-14 | Day surgery (SDC) | payer OTHER | END | disposition home or self-care (01) | LOC: JRADIR 09:51 | PROVIDERS: ATTEND Radiology Diagnostic Radiology | PROC: BW11YZZ Fluoroscopy of Abdomen and Pelvis using Other Contrast (ICD-10-PCS; principal; 2017-07-14) | DX: L02.211 Cutaneous abscess of abdominal wall (principal); K63.2 Fistula of intestine; K60.4 Rectal fistula | CPT/HCPCS: 49424; 76080-TC-FY ==

== ENCOUNTER 2017-11-23 09:29 | Inpatient (IN) | payer OTHER ==
--- NOTE | 2017-11-23 10:55 | HP ---
Admitting History and Physical - Primary Care Physician PCP: Lukas Caputo - Admission Chief Complaint: colostomy status, cutaneous fistula site History of Present Illness: 66yo F well-known to me, with multiple medical problems, s/p partial left colon resection and colostomy 12/10/16 for perforated sigmoid colon/megacolon, complicated by partial wound dehiscence of secondarily-healing wound, ultimately healed over; also complicated by fistula from left abdominal wall to distal colorectal remnant, had IR drain for about 6 months, with persistent serous and sometimes purulent drainage from the site after its removal; now admitted for bowel prep and preop preparation for takedown of colostomy and fistula with scar revision. She also has CHF and has had pleural effusions, R>L , managed primarily with Lasix, though they have not resolved. She reports no GI symptoms other than loose/liquidy stools sometimes. She is on warfarin for h/ o CVA with no residual, which has been held since her last dose 11/17 , for surgery. She is also diabetic, hypertensive and has COPD. She quit smoking 09/16/17 in anticipation of surgery. She has been seen regularly by her PMD and pattern fitter, who both have optimized her for this operation as much as possible and are in agreement with her admission prior to surgery for fluid and electrolyte management along with her bowel prep, as her risk for both dehydration and fluid overload are high. She was seen in surgical clinic a few weeks ago, at which time informed consent for surgery was signed after risks, benefits and alternatives were discussed in detail. She is eager to have the surgery, and motivated to minimize her risk of complications. 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 No: Colonoscopy (never had) - Smoking History Smoking history: Former smoker Have you smoked in the past 12 months: Yes Aproximately how many cigarettes per day: 16 If you are a former smoker, when did you quit?: September 16, 2017 - Alcohol/Substance Use Hx Alcohol Use: No (social in past, not recently) History of Substance Use: reports: None - Social History Usual Living Arrangement: Yes: With Spouse ADL: Independent History of Recent Travel: No Home Medications - Allergies Allergies/Adverse Reactions: Allergies Allergy/AdvReac Type Severity Reaction Status Date / Time No Known Allergies Allergy Verified 01/17/17 15:43 - Home Medications Home Medications: Ambulatory Orders Anastrozole [Arimidex -] 1 mg PO DAILY 01/17/17 Atorvastatin Calcium 20 mg PO HS 01/17/17 Bupropion HCl [Wellbutrin -] 75 mg PO BID 01/17/17 Carvedilol 25 mg PO BID 01/17/17 Cyanocobalamin [Vitamin B12 -] 1,000 mcg PO DAILY 01/17/17 Furosemide 80 mg PO DAILY 01/17/17 Pantoprazole Sodium [Protonix] 40 mg PO DAILY 01/17/17 Insulin Sliding Scale [Novolog Vial Sliding Scale -] 1 vial SQ TIDAC units Mometasone Furoate [Asmanex 110Mcg -] 1 puff IH BID inhaler 01/28/17 Warfarin Na [Coumadin -] 4 mg PO Q2D@1800 tablet 01/28/17 Zolpidem Tartrate [Ambien] 5 mg PO HS PRN #30 tablet MDD 1 01/28/17 Metformin HCl [Glucophage] 1,000 mg PO BID 11/23/17 Home Medications (free text): coumadin has been 5mg daily with slightly different dose on weekends; last taken 11/17; took all usual meds this am except lasix and metformin, last taken yesterday Family Disease History - Family Disease History Family Disease History: CA: Sister (breast CA) Review of Systems - Review of Systems Constitutional: denies: Chills, Fever, Loss of Appetite Eyes: reports: Other (legally blind). denies: Recent Change in Vision HENT: reports: Hearing Loss. denies: Difficult Swallowing, Nasal Congestion, Throat Pain Neck: denies: Swollen Glands, Tenderness Cardiovascular: denies: Chest Pain, Palpitations Respiratory: reports: SOB (having some today). denies: Cough Gastrointestinal: denies: Abdominal Pain, Constipation, Diarrhea, Nausea, Vomiting Genitourinary: denies: Burning, Dysuria Breasts: reports: Other (left breast lump, known CA, on arimidex) Musculoskeletal: denies: Back Pain, Joint Pain, Muscle Pain Integumentary: reports: Wound (L lateral upper abdomen, dressed this morning with gauze). denies: Change in Color, Rash Neurological: denies: Dizziness, Headache, Unsteady Gait Psychiatric: reports: Anxiety, Depression Physical Examination Constitutional: Yes: Well Nourished, No Distress, Calm Eyes: Yes: EOM Intact, Other (L eye cloudy) HENT: Yes: Atraumatic, Normocephalic Neck: Yes: Supple, Trachea Midline Cardiovascular: Yes: Regular Rate and Rhythm Respiratory: Yes: Regular, Diminished (R base > L base), Wheezes (faint on left , expiratory). No: On Nasal O2 Gastrointestinal: Yes: Normal Bowel Sounds, Soft, Abdomen, Obese, Other ( colostomy p/p/p soft brown stool; L lateral upper abdomen small draining site dressed (prev drain site, known fistula); well-healed wide midline scar). No: Distention, Tenderness ...Rectal Exam: Yes: Deferred Renal/: No: CVA Tenderness - Left, CVA Tenderness - Right Musculoskeletal: No: Joint Stiffness, Joint Swelling Extremities: No: Cool, Cyanosis Edema: Yes Edema: LLE: Trace, RLE: Trace Peripheral Pulses WNL: Yes Integumentary: No: Jaundice, Rash Wound/Incision: Yes: Dressing Dry and Intact (L abdomen), Draining (small, serous). No: Dressing Removed Neurological: Yes: Alert, Oriented. No: Unsteady Gait Psychiatric: Yes: Alert, Oriented Labs: pending Imaging - Results Chest X-ray: Pending EKG: Pending Problem List - Problems (1) Colostomy in place Assessment/Plan: admitted to surgery preoperatively check labs and trend clear liquids today, NPO after midnight with possible gentle IV fluids bowel prep today with Golytely and tap water enema monitor fluid and electrolyte status closely consent on chart for OR tomorrow for reversal of colostomy, takedown of fistula and scar revision medical and cardiology optimization notes in paper chart Dr. Caputo and Dr. 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 Assessment/Plan: see above Code(s): K63.2 - FISTULA OF INTESTINE (3) Anticoagulant long-term use Assessment/Plan: check INR ensure <1.5 for surgery DVT prophylaxis while off of therapeutic anticoagulation Code(s): Z79.01 - CUSTODIAL (CURRENT) USE OF 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 (4) COPD without exacerbation Assessment/Plan: CXR today cardiology and medicine to follow pt with known pleural effusions, R>L Code(s): J44.9 - CHRONIC OBSTRUCTIVE PULMONARY DISEASE, UNSPECIFIED (5) Diabetes mellitus type 2, noninsulin dependent Assessment/Plan: FS with SSI coverage until back on diet postop Code(s): E11.9 - TYPE 2 DIABETES MELLITUS WITHOUT COMPLICATIONS (6) H/O: CVA (cerebrovascular accident) Assessment/Plan: off coumadin perioperatively Code(s): Z86.73 - PRSNL HX OF TIA (TIA), AND CEREB INFRC W/O RESID DEFICITS (7) Hypertension Assessment/Plan: continue home meds except lasix for now EKG now cardio to follow Code(s): I10 - ESSENTIAL (PRIMARY) HYPERTENSION Qualifiers: Hypertension type: essential hypertension Qualified Code(s): I10 - Essential (primary) hypertension (8) Cancer of left breast Assessment/Plan: continue arimidex Code(s): C50.912 - MALIGNANT NEOPLASM OF UNSPECIFIED SITE OF LEFT FEMALE BREAST Qualifiers: Breast location: upper outer quadrant of breast Estrogen receptor status: positive Patient sex: female Qualified Code(s): C50.412 - Malignant neoplasm of upper-outer quadrant of left female breast (9) Depression Assessment/Plan: continue wellbutrin Code(s): F32.9 - MAJOR DEPRESSIVE DISORDER, SINGLE EPISODE, UNSPECIFIED Qualifiers: Depression Type: reactive depression Qualified Code(s): F32.9 - Major depressive disorder, single episode, unspecified
[2017-11-23] MEDS ORDERED: INSULIN SLIDING SCALE (NOVOLOG) 1 VIAL SQ SCH ×2 (11:00)
[2017-11-23 11:21] LABS: BASO % 0.6 % (0-2.0); HEMOGLOBIN 10.3 GM/dL (10.7-15.3); LYMPH % 10.9 % (8-40); MCH 32.3 pg (25.7-33.7); MCHC 33.3 g/dl (32.0-36.0); MEAN CELL VOLUME 96.8 fl (80-96); MEAN PLT VOLUME 7.8 fl (7.5-11.1); MONO % 5.4 % (3.8-10.2); NEUT % 82.1 % (42.8-82.8); PLATELET COUNT 312 K/MM3 (134-434); RBC 3.21 M/mm3 (3.60-5.2); RDW 15.1 % (11.6-15.6); WHITE BLOOD COUNT 8.9 K/mm3 (4.0-10.0)
[2017-11-23] MEDS ORDERED: ALBUTEROL SO4 2.5/IPRATROPIUM 0.5 INH SOL 3 ML VIAL.NEB. NEB PRN (11:28)
[2017-11-23 11:33] LABS: INR 1.14 (0.83-1.09); PROTHROMBIN TIME (PATIENT) 12.9 SEC (9.7-13.0)
[2017-11-23 11:50] LABS: ALBUMIN 3.8 g/dl (3.4-5.0); ALK PHOS 97 U/L (45-117); ANION GAP 10 MMOL/L (8-16); BILIRUBIN,TOTAL 0.6 mg/dL (0.2-1); BLOOD UREA NITROGEN 23 mg/dL (7-18); CALCIUM 9.5 mg/dL (8.5-10.1); CHLORIDE 104 mmol/L (98-107); CO2 27 mmol/L (21-32); GLUCOSE,RANDOM 128 mg/dL (74-106); PHOSPHOROUS 3.8 mg/dL (2.5-4.9); POTASSIUM 4.2 mmol/L (3.5-5.1); SGOT/AST 14 U/L (15-37); SGPT/ALT 29 U/L (13-61); SODIUM 140 mmol/L (136-145); TOT PROT 7.3 g/dl (6.4-8.2)
--- NOTE | 2017-11-23 12:25 | CON.CARD ---
Consult Consult Specialty:: Cardiology Referred by:: Isreal Mitchell MD Reason for Consultation:: Pre-operative cardiovascular evaluation prior to reversal colostomy - History of Present Illness Chief Complaint: Colostomy reversal History of Present Illness: 66 year old female with past medical history significant for diabetes, smoker, HTN/HCVD, CVA with MCA thrombus, hyperlipidemia, NIDCM and moderate systolic dysfunction with h/o failure, distal left renal artery stenosis, perforated sigmoid colon possibly secondary to C. diff megacolon and underwent sigmoid resection with colostomy (Dwaine's procedure) planned for reversal of colostomy, last saw Dr. Mahoney 11/11/2017. She denies chest pain, dyspnea worse than baseline, near or true syncope, palpitations, orthopnea, PND or LE edema, she did not take recent dose of diuretics. 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 No: Colonoscopy (never had) - Alcohol/Substance Use Hx Alcohol Use: No (social in past, not recently) History of Substance Use: reports: None - Smoking History Smoking history: Former smoker Have you smoked in the past 12 months: Yes Aproximately how many cigarettes per day: 16 If you are a former smoker, when did you quit?: September 16, 2017 - Social History Usual Living Arrangement: Assisted (last several weeks since hospital d/c) ADL: Independent History of Recent Travel: No Home Medications - Allergies Allergies/Adverse Reactions: Allergies Allergy/AdvReac Type Severity Reaction Status Date / Time No Known Allergies Allergy Verified 01/17/17 15:43 - Home Medications Home Medications: Ambulatory Orders Anastrozole [Arimidex -] 1 mg PO DAILY 01/17/17 Atorvastatin Calcium 20 mg PO HS 01/17/17 Bupropion HCl [Wellbutrin -] 75 mg PO BID 01/17/17 Carvedilol 25 mg PO BID 01/17/17 Cyanocobalamin [Vitamin B12 -] 1,000 mcg PO DAILY 01/17/17 Furosemide 80 mg PO DAILY 01/17/17 Pantoprazole Sodium [Protonix] 40 mg PO DAILY 01/17/17 Insulin Sliding Scale [Novolog Vial Sliding Scale -] 1 vial SQ TIDAC units Mometasone Furoate [Asmanex 110Mcg -] 1 puff IH BID inhaler 01/28/17 Warfarin Na [Coumadin -] 4 mg PO Q2D@1800 tablet 01/28/17 Zolpidem Tartrate [Ambien] 5 mg PO HS PRN #30 tablet MDD 1 01/28/17 Metformin HCl [Glucophage] 1,000 mg PO BID 11/23/17 Family Disease History - Family Disease History Family Disease History: CA: Sister (breast CA) Review of Systems - Review of Systems Constitutional: reports: No Symptoms Eyes: reports: No Symptoms HENT: reports: No Symptoms Neck: reports: No Symptoms Cardiovascular: reports: Shortness of Breath Respiratory: reports: SOB Gastrointestinal: reports: No Symptoms Genitourinary: reports: No Symptoms Musculoskeletal: reports: No Symptoms Integumentary: reports: No Symptoms Neurological: reports: No Symptoms Endocrine: reports: No Symptoms Hematology/Lymphatic: reports: No Symptoms Psychiatric: reports: Anxiety Vital Signs: Vital Signs Temperature 98 F 11/23/17 11:23 Pulse Rate 80 11/23/17 11:23 Respiratory Rate 20 11/23/17 11:23 Blood Pressure 134/75 11/23/17 11:23 O2 Sat by Pulse Oximetry (%) Constitutional: Yes: No Distress Neck: Yes: Supple Respiratory: Yes: Regular, CTA Bilaterally Gastrointestinal: Yes: Normal Bowel Sounds, Soft, Other (Colostomy in place) Cardiovascular: Yes: Regular Rate and Rhythm JVD: No Carotid Bruit: No Heart Sounds: Yes: S1, S2 Edema: No - Other Data Labs, Other Data: CBC, BMP 11/23/17 11:00 11/23/17 11:00 INR, PTT INR 1.14 (0.83-1.09) H 11/23/17 11:00 Troponin, BNP 11/23/17 11:00 B-Natriuretic Peptide 7535.2 H Troponin, BNP 11/23/17 11:00 B-Natriuretic Peptide 7535.2 H NSR [address]H nonspec ST changes Imaging - Results Chest X-ray: Report Reviewed (Increased CHF and effusions c/w previous study) Problem List - Problems (1) Pre-operative cardiovascular examination Code(s): Z01.810 - ENCOUNTER FOR PREPROCEDURAL CARDIOVASCULAR EXAMINATION (2) Acute exacerbation of congestive heart failure Code(s): I50.9 - HEART FAILURE, UNSPECIFIED (3) Anemia Code(s): D64.9 - ANEMIA, UNSPECIFIED Qualifiers: Anemia type: unspecified type Qualified Code(s): D64.9 - Anemia, unspecified (4) Anticoagulant long-term use Code(s): Z79.01 - 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 (CURRENT) USE OF 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 (5) COPD (chronic obstructive pulmonary disease) Code(s): J44.9 - CHRONIC OBSTRUCTIVE PULMONARY DISEASE, UNSPECIFIED Qualifiers: COPD type: unspecified COPD Qualified Code(s): J44.9 - Chronic obstructive pulmonary disease, unspecified (6) Diabetes mellitus type 2, noninsulin dependent Code(s): E11.9 - TYPE 2 DIABETES MELLITUS WITHOUT COMPLICATIONS (7) H/O: CVA (cerebrovascular accident) Code(s): Z86.73 - PRSNL HX OF TIA (TIA), AND CEREB INFRC W/O RESID DEFICITS (8) Hypertension Code(s): I10 - ESSENTIAL (PRIMARY) HYPERTENSION Qualifiers: Hypertension type: essential hypertension Qualified Code(s): I10 - Essential (primary) hypertension (9) Left renal artery stenosis Code(s): I70.1 - ATHEROSCLEROSIS OF RENAL ARTERY (10) Subtherapeutic anticoagulation Code(s): Z51.81 - ENCOUNTER FOR THERAPEUTIC DRUG LEVEL MONITORING; Z79.01 - JAIL (CURRENT) USE OF 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 Assessment/Plan 12/24/2016 Echo: Normal LV size with moderate decreased LV fxn, mild pericardial effusion, mild ASHLEY, mod MR, mild MS, TR 1. Pre-operative cardiovascular evaluation prior to colostomy reversal 2. Acute on chronic LV systolic failure with pleural effusions 3. Perforated sigmoid colon (pathology c/w ischemic colitis) post resection ( Dwaine's procedure) 4. History of CVA with left MCA thrombus now with subtherapeutic INR 5. COPD 6. HTN/HCVD 7. Hyperlipidemia 8. Anemia 9. 50-60% distal left renal artery stenosis 10. Type 2 DM 11. COPD PLAN: 1. Initiate IV diuresis with monitor diuretic response, renal function and electrolytes, Aldactone d/abena 12/2016 for hyperkalemia, f/u repeat ECG 2. Continue carvedilol 25 bid, Lipitor 20 qhs, resume Diovan 80 qd with uptitration as hemodynamics tolerate as hyperkalemia has resolved 3. Hold Coumadin marga-op and resume once post-op hemostasis achieved 4. DVT and GI prophylaxis, colonic prep 5. Proceed with OR once volume status improves 6. Thank you for consultative opportunity
[2017-11-23] MEDS ORDERED: PEG3350/SOD SULF,BICARB,CL/KCL 4,000 ML SOLN.RECON PO ONE (13:00)
[2017-11-23] MEDS ORDERED: FUROSEMIDE 40 MG/4 ML INJECTABLE VIAL IVPUSH ONE ×2 (13:30→22:56)
[2017-11-23] MEDS: VALSARTAN 80 MG TABLET (UD) PO SCH (13:42)
[2017-11-23] MEDS: HEPARIN NA (PORCINE) 5,000 UNITS/ML 1ML VIAL SQ SCH ×2 (14:12→21:56)
[2017-11-23] MEDS: ERYTHROMYCIN BASE 500 MG TABLET PO SCH ×2 (14:55→15:58)
[2017-11-23] MEDS: NEOMYCIN SO4 500 MG TABLET PO SCH ×2 (14:55→15:59)
--- NOTE | 2017-11-23 15:15 | CONSULT ---
Consult Consult Specialty:: internal medicine Referred by:: Dr Mitchell Reason for Consultation:: med evaluation/pre-op - History of Present Illness Chief Complaint: feels nervous History of Present Illness: 66 YOF with ASHD; DM, COPD; breast cancer; Hx of ischemic strokes; well known to me who has been admitted in preparation for an elective procedure (reversal of Barbara) to hopefully be done in the AM. Patient had required laparotomy for intestinal perf in 2017 and barbara procedure was performed. She is now deemed ready for the reversal procedure which she very much wishes to have. Since the bowel surgery in 2017; she has been followed by surgery; medically she had developed a pleural effusion earlier this year likely 2nd cardiac etiology (high BNP). She'd declined to have thoracentesis. She was tx with Furosemide and the effusion receded; however, there has been a recurrence as of late but not as pronounced as it had been. her oxygen saturations have been in acceptable ranges. Her glucose has also been under control (a1c under 6.0). She has not required and chronic steroids or inhalers for maintainence, nor is she oxygen requiring. Her breast cancer is being successfully managed with use of anastrazole alone, with no evidence of progressing disease. She has been followed by Cardiology throughout much of the year, who has not made any significant changes with her medication regimen. Today she feels anxious and breathing heavier. She denies any CP; palpiations, n-v, abd pains; dizziness. 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 No: Colonoscopy (never had) - Alcohol/Substance Use Hx Alcohol Use: No (social in past, not recently) History of Substance Use: reports: None - Smoking History Smoking history: Former smoker Have you smoked in the past 12 months: Yes Aproximately how many cigarettes per day: 16 If you are a former smoker, when did you quit?: September 16, 2017 - Social History Usual Living Arrangement: With Spouse (last several weeks since hospital d/c) ADL: Family Assistance History of Recent Travel: No Home Medications - Allergies Allergies/Adverse Reactions: Allergies Allergy/AdvReac Type Severity Reaction Status Date / Time No Known Allergies Allergy Verified 01/17/17 15:43 - Home Medications Home Medications: Ambulatory Orders Anastrozole [Arimidex -] 1 mg PO DAILY 01/17/17 Atorvastatin Calcium 20 mg PO HS 01/17/17 Bupropion HCl [Wellbutrin -] 75 mg PO BID 01/17/17 Carvedilol 25 mg PO BID 01/17/17 Cyanocobalamin [Vitamin B12 -] 1,000 mcg PO DAILY 01/17/17 Furosemide 80 mg PO DAILY 01/17/17 Pantoprazole Sodium [Protonix] 40 mg PO DAILY 01/17/17 Insulin Sliding Scale [Novolog Vial Sliding Scale -] 1 vial SQ TIDAC units Mometasone Furoate [Asmanex 110Mcg -] 1 puff IH BID inhaler 01/28/17 Warfarin Na [Coumadin -] 4 mg PO Q2D@1800 tablet 01/28/17 Zolpidem Tartrate [Ambien] 5 mg PO HS PRN #30 tablet MDD 1 01/28/17 Metformin HCl [Glucophage] 1,000 mg PO BID 11/23/17 Family Disease History - Family Disease History Family Disease History: CA: Sister (breast CA) Review of Systems - Review of Systems Constitutional: reports: No Symptoms Eyes: reports: Blurred Vision (not new) HENT: reports: No Symptoms Neck: reports: No Symptoms Cardiovascular: reports: No Symptoms Respiratory: reports: SOB Gastrointestinal: reports: No Symptoms Genitourinary: reports: No Symptoms Musculoskeletal: reports: No Symptoms Integumentary: reports: No Symptoms Neurological: reports: No Symptoms Endocrine: reports: No Symptoms Hematology/Lymphatic: reports: No Symptoms Psychiatric: reports: Anxiety Physical Exam Vital Signs: Vital Signs Temperature 98 F 11/23/17 11:23 Pulse Rate 80 11/23/17 11:23 Respiratory Rate 20 11/23/17 11:23 Blood Pressure 134/75 11/23/17 11:23 O2 Sat by Pulse Oximetry (%) Constitutional: Yes: Well Nourished, No Distress, Anxious Eyes: Yes: Other (corneal opacities) Neck: Yes: WNL Cardiovascular: Yes: Regular Rate and Rhythm Respiratory: Yes: Diminished (Rt side) Gastrointestinal: Yes: Soft Edema: No Peripheral Pulses WNL: Yes Neurological: Yes: WNL ...Motor Strength: WNL Psychiatric: Yes: WNL Labs: CBC, BMP 11/23/17 11:00 11/23/17 11:00 CBCD WBC 8.9 K/mm3 (4.0-10.0) 11/23/17 11:00 RBC 3.21 M/mm3 (3.60-5.2) L 11/23/17 11:00 Hgb 10.3 GM/dL (10.7-15.3) L 11/23/17 11:00 Hct 31.0 % (32.4-45.2) L 11/23/17 11:00 MCV 96.8 fl (80-96) H 11/23/17 11:00 MCHC 33.3 g/dl (32.0-36.0) 11/23/17 11:00 RDW 15.1 % (11.6-15.6) 11/23/17 11:00 Plt Count 312 K/MM3 (134-434) 11/23/17 11:00 MPV 7.8 fl (7.5-11.1) 11/23/17 11:00 CMP Sodium 140 mmol/L (136-145) 11/23/17 11:00 Potassium 4.2 mmol/L (3.5-5.1) 11/23/17 11:00 Chloride 104 mmol/L (98-107) 11/23/17 11:00 Carbon Dioxide 27 mmol/L (21-32) 11/23/17 11:00 Anion Gap 10 MMOL/L (8-16) 11/23/17 11:00 BUN 23 mg/dL (7-18) H 11/23/17 11:00 Creatinine 1.0 mg/dL (0.55-1.3) 11/23/17 11:00 Creat Clearance w eGFR 55.14 (>60) 11/23/17 11:00 Random Glucose 128 mg/dL (74-106) H 11/23/17 11:00 Calcium 9.5 mg/dL (8.5-10.1) 11/23/17 11:00 Total Bilirubin 0.6 mg/dL (0.2-1) 11/23/17 11:00 AST 14 U/L (15-37) L 11/23/17 11:00 ALT 29 U/L (13-61) 11/23/17 11:00 Alkaline Phosphatase 97 U/L (45-117) 11/23/17 11:00 Total Protein 7.3 g/dl (6.4-8.2) 11/23/17 11:00 Albumin 3.8 g/dl (3.4-5.0) 11/23/17 11:00 INR, PTT INR 1.14 (0.83-1.09) H 11/23/17 11:00 Imaging - Results Chest X-ray: Report Reviewed EKG: Report Reviewed Problem List - Problems (1) Preprocedural examination Assessment/Plan: set to undergo surgery for said procedure in AM. She appears to be hemodynamically stable; however; has persistent pleural effusion 2nd cardiac dysf. Discussed with Lumber Tripper who wishes to see how she responds to diuresis. Will repeat chemistry and CXR in AM Code(s): Z01.818 - ENCOUNTER FOR OTHER PREPROCEDURAL EXAMINATION (2) Anemia Assessment/Plan: mild & stable Code(s): D64.9 - ANEMIA, UNSPECIFIED Qualifiers: Anemia type: unspecified type Qualified Code(s): D64.9 - Anemia, unspecified (3) COPD without exacerbation Assessment/Plan: chronic; 2nd tobacco; sats are 90% Code(s): J44.9 - CHRONIC OBSTRUCTIVE PULMONARY DISEASE, UNSPECIFIED (4) Cancer of left breast Assessment/Plan: stable disease; well controlled with hormonal Chemo Code(s): C50.912 - MALIGNANT NEOPLASM OF UNSPECIFIED SITE OF LEFT FEMALE BREAST Qualifiers: Breast location: upper outer quadrant of breast Estrogen receptor status: positive Patient sex: female Qualified Code(s): C50.412 - Malignant neoplasm of upper-outer quadrant of left female breast (5) Diabetes mellitus type 2, noninsulin dependent Assessment/Plan: has been under good control based on the a1c Code(s): E11.9 - TYPE 2 DIABETES MELLITUS WITHOUT COMPLICATIONS (6) H/O: CVA (cerebrovascular accident) Assessment/Plan: cryptogenic, multiple ischemic strokes in the past of unknown source; ATF never documented, but has been placed on warafarin (which has been suspended pre- operatively) Code(s): Z86.73 - PRSNL HX OF TIA (TIA), AND CEREB INFRC W/O RESID DEFICITS (7) Anticoagulant long-term use Assessment/Plan: on hold Code(s): Z79.01 - SUPERVISOR OPERATIONS (CURRENT) USE OF 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 (8) Colostomy in place Assessment/Plan: 2nd barbara Code(s): Z93.3 - COLOSTOMY STATUS Assessment/Plan 66 YOF who we will hope to optimize prior to surgery. ~~~~~~~~~~~~~~~~~ Dr Caputo
[2017-11-23] MEDS ORDERED: PT OWN MED DRAWER 7, Y5N ONE ×3 (16:04→23:36)
--- NOTE | 2017-11-23 18:06 | EKG ---
Test Reason : Blood Pressure : / mmHG Vent. Rate : 090 BPM Atrial Rate : 090 BPM P-R Int : 212 ms QRS Dur : 108 ms QT Int : 414 ms P-R-T Axes : 080 062 216 degrees QTc Int : 506 ms SINUS RHYTHM WITH 1ST DEGREE A-V BLOCK WITH PREMATURE ATRIAL COMPLEXES LEFT VENTRICULAR HYPERTROPHY WITH REPOLARIZATION ABNORMALITY PROLONGED QT ABNORMAL ECG WHEN COMPARED WITH ECG OF 17-JAN-2017 17:04, PREMATURE VENTRICULAR COMPLEXES ARE NO LONGER PRESENT PREMATURE ATRIAL COMPLEXES ARE NOW PRESENT T WAVE VARIATION Confirmed by JAROCHO KANG MD ([id number]) on 11/23/2017 6:06:21 PM Referred By: Isreal Mitchell Confirmed By:JAROCHO KANG MD
[2017-11-23] MEDS: CARVEDILOL 25 MG TABLET (FP) PO SCH (21:56)
[2017-11-23] MEDS: buPROPion HCL 75 MG TABLET PO SCH (21:56)
[2017-11-23] MEDS ORDERED: ATORVASTATIN CA 20 MG TABLET (FP) PO SCH (22:00)
[2017-11-23] MEDS ORDERED: MOMETASONE FUROATE 110 MCG/IH INHALER IH SCH (22:00)
[2017-11-23 22:18] LABS: ANION GAP 11 MMOL/L (8-16); BLOOD UREA NITROGEN 19 mg/dL (7-18); CALCIUM 9.4 mg/dL (8.5-10.1); CHLORIDE 102 mmol/L (98-107); CO2 30 mmol/L (21-32); GLUCOSE,RANDOM 85 mg/dL (74-106); MAGNESIUM 1.8 mg/dL (1.8-2.4); PHOSPHOROUS 3.2 mg/dL (2.5-4.9); POTASSIUM 3.7 mmol/L (3.5-5.1); SODIUM 143 mmol/L (136-145)
[2017-11-24] MEDS: ERYTHROMYCIN BASE 500 MG TABLET PO SCH (00:06)
[2017-11-24] MEDS ORDERED: PT OWN MED DRAWER 7, Y5N ONE (01:22)
[2017-11-24] MEDS: NEOMYCIN SO4 500 MG TABLET PO SCH (01:26)
[2017-11-24] MEDS: HEPARIN NA (PORCINE) 5,000 UNITS/ML 1ML VIAL SQ SCH ×3 (06:15→19:40)
[2017-11-24 07:36] LABS: HEMATOCRIT 31.7 % (32.4-45.2); HEMOGLOBIN 10.5 GM/dL (10.7-15.3); MCH 31.9 pg (25.7-33.7); MCHC 33.1 g/dl (32.0-36.0); MEAN CELL VOLUME 96.5 fl (80-96); PLATELET COUNT 295 K/MM3 (134-434); RBC 3.28 M/mm3 (3.60-5.2); WHITE BLOOD COUNT 7.1 K/mm3 (4.0-10.0)
[2017-11-24 07:58] LABS: ANION GAP 6 MMOL/L (8-16); BLOOD UREA NITROGEN 19 mg/dL (7-18); CALCIUM 9.4 mg/dL (8.5-10.1); CHLORIDE 100 mmol/L (98-107); CO2 33 mmol/L (21-32); CREATININE 1.2 mg/dL (0.55-1.3); GLUCOSE,RANDOM 119 mg/dL (74-106); PHOSPHOROUS 3.8 mg/dL (2.5-4.9); POTASSIUM 3.6 mmol/L (3.5-5.1); SODIUM 139 mmol/L (136-145)
[2017-11-24] MEDS ORDERED: VALSARTAN 80 MG TABLET (UD) PO SCH (10:00)
[2017-11-24] MEDS ORDERED: PANTOPRAZOLE 40 MG TABLET (FP) PO SCH (10:00)
[2017-11-24] MEDS ORDERED: ANASTROZOLE 1 MG TABLET PO SCH (10:00)
[2017-11-24] MEDS ORDERED: CYANOCOBALAMIN 1,000 MCG TABLET (FP) PO SCH (10:00)
[2017-11-24] MEDS: CARVEDILOL 25 MG TABLET (FP) PO SCH (10:20)
[2017-11-24] MEDS: buPROPion HCL 75 MG TABLET PO SCH (10:20)
[2017-11-24] MEDS: VALSARTAN 80 MG TABLET (UD) PO SCH (10:20)
--- NOTE | 2017-11-24 11:51 | PN ---
Progress Note (short form) - Note Progress Note: medical note Current Medications Albuterol/Ipratropium (Duoneb -) 1 amp NEB Q4H PRN PRN Reason: SHORTNESS OF BREATH Anastrozole (Arimidex -) 1 mg PO DAILY [facility] Last Admin: 11/24/17 10:21 Dose: 1 mg Atorvastatin Calcium (Lipitor -) 20 mg PO HS [facility] Last Admin: 11/23/17 21:56 Dose: 20 mg Bupropion HCl (Wellbutrin -) 75 mg PO BID [facility] Last Admin: 11/24/17 10:20 Dose: 75 mg Carvedilol (Coreg -) 25 mg PO BID [facility] Last Admin: 11/24/17 10:20 Dose: 25 mg Cyanocobalamin (Vitamin B12 -) 1,000 mcg PO DAILY [facility] Last Admin: 11/24/17 10:20 Dose: 1,000 mcg Heparin Sodium (Porcine) (Heparin -) 5,000 unit SQ Q8H [facility] Last Admin: 11/24/17 09:32 Dose: 5,000 unit Insulin Aspart (Novolog Vial Sliding Scale -) 1 vial SQ TIDAC [facility]; Protocol Last Admin: 11/24/17 06:32 Dose: Not Given Pantoprazole Sodium (Protonix -) 40 mg PO DAILY [facility] Last Admin: 11/24/17 10:21 Dose: 40 mg Valsartan (Diovan -) 80 mg PO DAILY [facility] Last Admin: 11/24/17 10:20 Dose: 80 mg Laboratory Results - last 24 hr 11/23/17 11/23/17 11/23/17 11:00 11:00 11:00 WBC RBC Hgb Hct MCV MCH MCHC RDW Plt Count MPV PT with INR 12.90 INR 1.14 H Sodium 140 Potassium 4.2 Chloride 104 Carbon Dioxide 27 Anion Gap 10 BUN 23 H Creatinine 1.0 Creat Clearance w eGFR 55.14 POC Glucometer Random Glucose 128 H Calcium 9.5 Phosphorus 3.8 Magnesium 2.0 Total Bilirubin 0.6 AST 14 L ALT 29 Alkaline Phosphatase 97 B-Natriuretic Peptide Total Protein 7.3 Albumin 3.8 Blood Type A POSITIVE Antibody Screen Negative 11/23/17 11/23/17 11/23/17 11:00 18:16 20:00 WBC RBC Hgb Hct MCV MCH MCHC RDW Plt Count MPV PT with INR INR Sodium 143 Potassium 3.7 Chloride 102 Carbon Dioxide 30 Anion Gap 11 BUN 19 H Creatinine 1.0 Creat Clearance w eGFR 55.14 POC Glucometer 136 Random Glucose 85 Calcium 9.4 Phosphorus 3.2 Magnesium 1.8 Total Bilirubin AST ALT Alkaline Phosphatase B-Natriuretic Peptide 7535.2 H Total Protein Albumin Blood Type Antibody Screen 11/23/17 11/24/17 11/24/17 21:55 06:00 06:30 WBC 7.1 RBC 3.28 L Hgb 10.5 L Hct 31.7 L MCV 96.5 H MCH 31.9 MCHC 33.1 RDW 15.0 Plt Count 295 MPV 8.0 PT with INR INR Sodium 139 Potassium 3.6 Chloride 100 Carbon Dioxide 33 H Anion Gap 6 L BUN 19 H Creatinine 1.2 Creat Clearance w eGFR 44.68 POC Glucometer 106 Random Glucose 119 H Calcium 9.4 Phosphorus 3.8 Magnesium Total Bilirubin AST ALT Alkaline Phosphatase B-Natriuretic Peptide Total Protein Albumin Blood Type Antibody Screen 11/24/17 06:30 WBC RBC Hgb Hct MCV MCH MCHC RDW Plt Count MPV PT with INR INR Sodium Potassium Chloride Carbon Dioxide Anion Gap BUN Creatinine Creat Clearance w eGFR POC Glucometer 131 Random Glucose Calcium Phosphorus Magnesium Total Bilirubin AST ALT Alkaline Phosphatase B-Natriuretic Peptide Total Protein Albumin Blood Type Antibody Screen Vital Signs Temperature 98.4 F 11/24/17 09:50 Pulse Rate 70 11/24/17 09:50 Respiratory Rate 17 11/24/17 09:50 Blood Pressure 143/74 11/24/17 09:50 O2 Sat by Pulse Oximetry (%) 93 L 11/23/17 22:00 CC; denies cough/SOB at this time ```````````````````````````` skin--NL color heart--RR lungs--distant BS bilaterally but decreased BS at Rt base; no wheezing abd--with colostomy; draining; soft, NT ext--no edema neuro--alert; coherent in NAD ````````````````````````````` CXR--effusion decreased as compared to yesterday's film ```````````````````````````````````````````````` Summ Seems to now be at baseline; cbc/chemistry largely unchanged WNL post diuresis; effusion diminished; vitals & BS stable; she appears to be optimized; however; she remains at high risk for previously stated complications nonetheless. She wishes to proceed with the surgery as planned. Would check post Op cbc/ chemsitries; BGM and CXR. Avoid vigorous IV hydration whenever possible. ~~~~~~~~~~~~ Dr Caputo Problem List - Problems (1) Preprocedural examination Code(s): Z01.818 - ENCOUNTER FOR OTHER PREPROCEDURAL EXAMINATION (2) Anemia Code(s): D64.9 - ANEMIA, UNSPECIFIED Qualifiers: Anemia type: unspecified type Qualified Code(s): D64.9 - Anemia, unspecified (3) COPD without exacerbation Code(s): J44.9 - CHRONIC OBSTRUCTIVE PULMONARY DISEASE, UNSPECIFIED (4) Cancer of left breast Code(s): C50.912 - MALIGNANT NEOPLASM OF UNSPECIFIED SITE OF LEFT FEMALE BREAST Qualifiers: Breast location: upper outer quadrant of breast Estrogen receptor status: positive Patient sex: female Qualified Code(s): C50.412 - Malignant neoplasm of upper-outer quadrant of left female breast (5) Diabetes mellitus type 2, noninsulin dependent Code(s): E11.9 - TYPE 2 DIABETES MELLITUS WITHOUT COMPLICATIONS (6) H/O: CVA (cerebrovascular accident) Code(s): Z86.73 - PRSNL HX OF TIA (TIA), AND CEREB INFRC W/O RESID DEFICITS (7) Anticoagulant long-term use 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
[2017-11-24] MEDS ORDERED: DEXAMETHASONE SOD PHOSPHATE 4 MG/1 ML VIAL ONE (11:52)
[2017-11-24] MEDS ORDERED: PROPOFOL 20 ML ONE (11:53)
[2017-11-24] MEDS ORDERED: ROCURONIUM BROMIDE 50 MG/5 ML VIAL ONE (11:54)
[2017-11-24] MEDS ORDERED: ONDANSETRON 4 MG/2 ML VIAL IVPUSH PRN ×2 (12:01→19:33)
[2017-11-24] MEDS ORDERED: MIDAZOLAM HCL 2 MG/2 ML SINGLE DOSE VIAL ONE (12:06)
[2017-11-24] MEDS ORDERED: PHENYLEPHRINE HCL 10 MG/1 ML SINGLE DOSE VIAL ONE (12:07)
[2017-11-24] MEDS ORDERED: CEFOTETAN DISODIUM 2 GM in DEXTROSE 5%-WATER 100 ML IVPB ONE ×2 (12:15→19:33)
[2017-11-24] MEDS ORDERED: HYDROmorphone *PCA* 10MG/50ML DISP.SYRIN PCA SCH (12:15)
[2017-11-24] MEDS ORDERED: LACTATED RINGERS SOLUTION 1,000 ML IV SCH ×2 (12:15→18:47)
[2017-11-24] MEDS ORDERED: KETAMINE HCL 200 MG/20 ML VIAL ONE (12:44)
[2017-11-24] MEDS: cefoTEtan DISODIUM 2 GM VIAL (RESTRICTED TO ID) IVPB ONE ×2 (13:15→20:50)
[2017-11-24] MEDS ORDERED: ePHEDrine SULFATE 50 MG/1 ML AMPULE ONE (13:20)
[2017-11-24] MEDS ORDERED: MAGNESIUM SULF 50% (8.12 MEQ/2 ML-1 GM VIAL) ONE (13:47)
[2017-11-24] MEDS ORDERED: LIDOCAINE HCL/PF 2% SDV 5ML VIAL ONE (13:50)
[2017-11-24] MEDS ORDERED: KETOROLAC TROMETHAMINE 30 MG/1 ML VIAL ONE (16:24)
[2017-11-24] MEDS ORDERED: GLYCOPYRROLATE 0.2 MG/1 ML VIAL ONE (16:24)
[2017-11-24] MEDS ORDERED: NEOSTIGMINE METHYLSULFATE 0.5 MG/ML - 10 ML MDV ONE (16:25)
--- NOTE | 2017-11-24 18:41 | OP ---
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 - to small bowel (short portion resected and anastomosed) with additional fistula from second loop of small bowel to distal colorectal remnant - divided with stapler and sliver of distal colon left attached to small bowel at that site; distal end of colostomy resected prior to stapled anastomosis of proximal colon limb to distal colorectal limb; dense abdominal scar resected and sent; old ostomy site and drain/fistula site packed open; NG and Escobar placed and left Post-Operative Diagnosis: Same as Pre-op Surgeon: Isreal Mitchell Ehs Manager: Imer Tinsley Anesthesiologist/BREAK UP WORKER: Gavino Krishnan (babs/David Katz) Anesthesia: General Specimens Removed: abdominal wall scar, portion of small bowel, colostomy to pathology Estimated Blood Loss (mls): 100 Drains & Tubes with Location: NG and Escobar Drains, Volume Out (mls): 200 (UOP) Fluid Volume Replaced (mls): 2,000 (crystalloid) Operative Report Dictated: Yes
[2017-11-24] MEDS ORDERED: ONDANSETRON 4 MG/2 ML VIAL ONE (18:44)
[2017-11-24] MEDS ORDERED: HEPARIN NA (PORCINE) 5,000 UNITS/ML 1ML VIAL ONE (18:45)
[2017-11-24] MEDS ORDERED: ACETAMINOPHEN 1000 MG/100 ML VIAL (NON FORMULARY) IVPB PRN ×2 (18:52→19:33)
[2017-11-24] MEDS ORDERED: HEPARIN NA (PORCINE) 5,000 UNITS/ML 1ML VIAL SQ ONE ×2 (19:00→19:33)
[2017-11-24] MEDS ORDERED: HYDROmorphone *PCA* 10MG/50ML DISP.SYRIN PCA ONE (19:04)
[2017-11-24] MEDS ORDERED: ALBUTEROL SO4 2.5/IPRATROPIUM 0.5 INH SOL 3 ML VIAL.NEB. NEB PRN (19:33)
[2017-11-24 19:36] LABS: BASO % 0.2 % (0-2.0); EOS % 0.1 % (0-4.5); HEMATOCRIT 33.5 % (32.4-45.2); LYMPH % 4.8 % (8-40); MCH 31.9 pg (25.7-33.7); MCHC 32.9 g/dl (32.0-36.0); MEAN CELL VOLUME 96.9 fl (80-96); MEAN PLT VOLUME 7.8 fl (7.5-11.1); NEUT % 86.9 % (42.8-82.8); PLATELET COUNT 292 K/MM3 (134-434); RBC 3.46 M/mm3 (3.60-5.2); RDW 15.1 % (11.6-15.6); WHITE BLOOD COUNT 7.7 K/mm3 (4.0-10.0)
[2017-11-24] MEDS: HYDROmorphone *PCA* 10MG/50ML DISP.SYRIN PCA SCH (19:45)
[2017-11-24 20:27] LABS: ANION GAP 13 MMOL/L (8-16); BLOOD UREA NITROGEN 20 mg/dL (7-18); CALCIUM 9.2 mg/dL (8.5-10.1); CHLORIDE 105 mmol/L (98-107); CO2 24 mmol/L (21-32); CREATININE 1.4 mg/dL (0.55-1.3); GLUCOSE,RANDOM 169 mg/dL (74-106); MAGNESIUM 2.4 mg/dL (1.8-2.4); PHOSPHOROUS 4.7 mg/dL (2.5-4.9); POTASSIUM 4.4 mmol/L (3.5-5.1); SODIUM 142 mmol/L (136-145)
[2017-11-24] MEDS ORDERED: ACETAMINOPHEN INJECTION 100 ML IVPB ONE (20:36)
[2017-11-24] MEDS ORDERED: SODIUM CHLORIDE 1,000 ML IV STA (21:37)
[2017-11-24] MEDS ORDERED: ATORVASTATIN CA 20 MG TABLET (FP) PO SCH (22:00)
[2017-11-24] MEDS ORDERED: buPROPion HCL 75 MG TABLET PO SCH (22:00)
[2017-11-25] MEDS ORDERED: CEFOTETAN DISODIUM 2 GM in DEXTROSE 5%-WATER - 100 ML IVPB ONE (01:00)
[2017-11-25] MEDS ORDERED: HEPARIN NA (PORCINE) 5,000 UNITS/ML 1ML VIAL SQ SCH (06:00)
[2017-11-25 06:38] LABS: BASO % 0.2 % (0-2.0); HEMATOCRIT 29.8 % (32.4-45.2); HEMOGLOBIN 9.9 GM/dL (10.7-15.3); LYMPH % 4.5 % (8-40); MCH 32.2 pg (25.7-33.7); MEAN CELL VOLUME 97.3 fl (80-96); MEAN PLT VOLUME 8.4 fl (7.5-11.1); MONO % 5.8 % (3.8-10.2); NEUT % 89.5 % (42.8-82.8); PLATELET COUNT 226 K/MM3 (134-434); RBC 3.06 M/mm3 (3.60-5.2); RDW 15.4 % (11.6-15.6)
[2017-11-25] MEDS: LACTATED RINGERS SOLUTION 1,000 ML IV SCH ×2 (06:50→10:32)
[2017-11-25] MEDS: CHLORHEXIDINE GLUCONATE 4% CLEANSER FOR DECOLONIZATION TP SCH ×2 (06:52→22:14)
[2017-11-25] MEDS: MUPIROCIN 2% TOPICAL OINTMENT FOR DECOLONIZATION NS SCH ×3 (06:52→22:13)
[2017-11-25] MEDS: HEPARIN NA (PORCINE) 5,000 UNITS/ML 1ML VIAL SQ SCH ×3 (06:58→22:13)
[2017-11-25] MEDS: INSULIN SLIDING SCALE (NOVOLOG) 1 VIAL SQ SCH ×3 (06:59→16:35)
[2017-11-25 07:07] LABS: ANION GAP 8 MMOL/L (8-16); BLOOD UREA NITROGEN 22 mg/dL (7-18); CALCIUM 8.7 mg/dL (8.5-10.1); CHLORIDE 106 mmol/L (98-107); CO2 27 mmol/L (21-32); CREATININE 1.6 mg/dL (0.55-1.3); GLUCOSE,RANDOM 145 mg/dL (74-106); MAGNESIUM 2.4 mg/dL (1.8-2.4); PHOSPHOROUS 6.1 mg/dL (2.5-4.9); POTASSIUM 4.3 mmol/L (3.5-5.1); SODIUM 140 mmol/L (136-145)
[2017-11-25] MEDS: CARVEDILOL 25 MG TABLET (FP) PO SCH ×3 (07:12→22:13)
[2017-11-25] MEDS ORDERED: PANTOPRAZOLE SODIUM 40 MG VIAL IVPUSH SCH (10:00)
[2017-11-25] MEDS ORDERED: CYANOCOBALAMIN 1,000 MCG TABLET (FP) PO SCH (10:00)
[2017-11-25] MEDS ORDERED: VALSARTAN 80 MG TABLET (UD) PO SCH (10:00)
[2017-11-25] MEDS ORDERED: ANASTROZOLE 1 MG TABLET PO SCH (10:00)
[2017-11-25] MEDS: PANTOPRAZOLE SODIUM 40 MG VIAL IVPUSH SCH (10:21)
--- NOTE | 2017-11-25 11:02 | PN ---
Progress Note (short form) - Note Progress Note: >>>>>>>>>>>>> Medical note <<<<<<<<<<<<< Current Medications Acetaminophen (Ofirmev Injection -) 1,000 mg IVPB Q6H PRN PRN Reason: Pain Level 7 - 10 BREAKTHROUGH Last Admin: 11/24/17 20:53 Dose: 1,000 mg Albuterol/Ipratropium (Duoneb -) 1 amp NEB Q4H PRN PRN Reason: SHORTNESS OF BREATH Anastrozole (Arimidex -) 1 mg PO DAILY [facility] Atorvastatin Calcium (Lipitor -) 20 mg PO HS [facility] Bupropion HCl (Wellbutrin -) 75 mg PO BID [facility] Carvedilol (Coreg -) 25 mg PO BID [facility] Last Admin: 11/25/17 10:20 Dose: 25 mg Chlorhexidine Gluconate (Hibiclens For Decolonization -) 1 applic TP HS [facility] Last Admin: 11/25/17 06:52 Dose: 1 applic Cyanocobalamin (Vitamin B12 -) 1,000 mcg PO DAILY [facility] Heparin Sodium (Porcine) (Heparin -) 5,000 unit SQ TID [facility] Last Admin: 11/25/17 06:58 Dose: 5,000 unit Hydromorphone HCl (Dilaudid Dice Table Operator -) 10 mg ABLE SEAMAN ABLE SEAMAN [facility]; Protocol Stop: 12/01/17 12:02 Last Admin: 11/24/17 19:45 Dose: 10 mg Lactated Ringer's (Lactated Ringers Solution) 1,000 mls @ 100 mls/hr IV ASDIR [facility] Last Admin: 11/25/17 10:32 Dose: 100 mls/hr Insulin Aspart (Novolog Vial Sliding Scale -) 1 vial SQ TIDAC [facility]; Protocol Last Admin: 11/25/17 10:31 Dose: Not Given Mupirocin (Bactroban Ointment (For Decolonization) -) 1 applic NS BID [facility] Stop: 11/29/17 21:59 Last Admin: 11/25/17 10:20 Dose: 1 applic Ondansetron HCl (Zofran Injection) 4 mg IVPUSH Q6H PRN PRN Reason: NAUSEA AND/OR VOMITING Last Admin: 11/24/17 18:40 Dose: 4 mg Pantoprazole Sodium (Protonix Iv) 40 mg IVPUSH DAILY [facility] Last Admin: 11/25/17 10:21 Dose: 40 mg Valsartan (Diovan -) 80 mg PO DAILY [facility] Laboratory Results - last 24 hr 11/24/17 11/24/17 11/24/17 11:36 19:25 19:25 WBC 7.7 RBC 3.46 L Hgb 11.0 Hct 33.5 MCV 96.9 H MCH 31.9 MCHC 32.9 RDW 15.1 Plt Count 292 MPV 7.8 Absolute Neuts (auto) 6.7 Neutrophils % 86.9 H Lymphocytes % 4.8 L D Monocytes % 8.0 Eosinophils % 0.1 D Basophils % 0.2 Nucleated RBC % 0 Sodium 142 Potassium 4.4 Chloride 105 Carbon Dioxide 24 Anion Gap 13 BUN 20 H Creatinine 1.4 H Creat Clearance w eGFR 37.39 POC Glucometer 112 Random Glucose 169 H Calcium 9.2 Phosphorus 4.7 Magnesium 2.4 11/24/17 11/25/17 11/25/17 21:38 05:30 05:30 WBC 9.0 RBC 3.06 L Hgb 9.9 L Hct 29.8 L MCV 97.3 H MCH 32.2 MCHC 33.0 RDW 15.4 Plt Count 226 D MPV 8.4 Absolute Neuts (auto) 8.0 Neutrophils % 89.5 H Lymphocytes % 4.5 L Monocytes % 5.8 Eosinophils % 0.0 D Basophils % 0.2 Nucleated RBC % 0 Sodium 140 Potassium 4.3 Chloride 106 Carbon Dioxide 27 Anion Gap 8 BUN 22 H Creatinine 1.6 H Creat Clearance w eGFR 32.05 POC Glucometer 186 Random Glucose 145 H Calcium 8.7 Phosphorus 6.1 H Magnesium 2.4 Vital Signs Temp 97.7 F 11/25/17 10:00 Pulse 74 11/25/17 10:00 Resp 18 11/25/17 10:00 BP 141/55 L 11/25/17 10:00 Pulse Ox 96 11/24/17 23:10 Intake & Output 11/24/17 11/24/17 11/25/17 11:59 23:59 11:59 Intake Total 0 5500 500 Output Total 500 700 260 Balance -500 4800 240 Weight 165 lb 7 oz 172 lb 1.6 oz Intake: IV 3500 500 Lactated Ringers Solution 100 500 1,000 ml @ 100 mls/hr IV ASDIR [facility] Rx#: [id number] Oral 0 0 Other 2000 Output: Gastric Drainage 10 Drainage 300 colostomy 300 Urine 200 600 250 Escobar 100 250 Void 200 Estimated Blood Loss 100 Other: Voiding Method Bedside Commode Indwelling Catheter Weight Measurement Method Built in [facility] CC; feels "hungry" ````````````````````` skin--Nl color heart--RR abd--BS quiet; non distended; multiple dressings present neuro--alert, coherent in NAD `````````````````````````````` Summ > s/p reversal of colostomy--as described in surgical procedure note; post Op day #1; clinically stable so far; NPO, and mgment as per Dr Mitchell > ASHD--BP okay; CXR not yet officially read; seems to have increased congestion but denies SOB, and oxygen sat is WNL; may need to reduce fluids; will check daily CXR > anemia--H/h stable thus far > COPD--stable > DM--glucose below 200's; cont BGMs > Hx TIA/CVA--had been on Warfarin; will resume a/c as soon as she is surgically cleared ~~~~~~~~~~~~~~~~ Dr Caputo Problem List - Problems (1) Preprocedural examination Code(s): Z01.818 - ENCOUNTER FOR OTHER PREPROCEDURAL EXAMINATION (2) Anemia Code(s): D64.9 - ANEMIA, UNSPECIFIED Qualifiers: Anemia type: unspecified type Qualified Code(s): D64.9 - Anemia, unspecified (3) COPD without exacerbation Code(s): J44.9 - CHRONIC OBSTRUCTIVE PULMONARY DISEASE, UNSPECIFIED (4) Cancer of left breast Code(s): C50.912 - MALIGNANT NEOPLASM OF UNSPECIFIED SITE OF LEFT FEMALE BREAST Qualifiers: Breast location: upper outer quadrant of breast Estrogen receptor status: positive Patient sex: female Qualified Code(s): C50.412 - Malignant neoplasm of upper-outer quadrant of left female breast (5) Diabetes mellitus type 2, noninsulin dependent Code(s): E11.9 - TYPE 2 DIABETES MELLITUS WITHOUT COMPLICATIONS (6) H/O: CVA (cerebrovascular accident) Code(s): Z86.73 - PRSNL HX OF TIA (TIA), AND CEREB INFRC W/O RESID DEFICITS (7) Anticoagulant long-term use Code(s): Z79.01 - NURSING HOME (CURRENT) USE OF 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 (8) Colostomy in place Code(s): Z93.3 - COLOSTOMY STATUS
--- NOTE | 2017-11-25 12:41 | PN ---
Teaching Attending Note Name of Resident: Eunice Del Toro ATTENDING PHYSICIAN STATEMENT I saw and evaluated the patient. I reviewed the resident's note and discussed the case with the resident. I agree with the resident's findings and plan as documented. SUBJECTIVE: Pt seen and examined in the ICU. POD #1. Denies abdominal pain. No nausea. No shortness of breath or chest pain. CXR with increased pulmonary vascular congestion. No flatus. OBJECTIVE: Vital Signs Period Temp Pulse Resp BP Sys/Holt Pulse Ox Last 24 Hr 97.6 F-98.2 F 64-81 14-23 129-164/47-87 94-100 Intake & Output 11/22/17 11/23/17 11/24/17 11/25/17 23:59 23:59 23:59 23:59 Intake Total 5500 500 Output Total 1200 260 Balance 4300 240 Weight 77.111 kg 75.041 kg 78.063 kg Gen: NAD at rest Heart: RRR Lung: decreased breath sounds at the bases Abd: soft, nontender, dressing with heme Ext: no edema CBC, BMP 11/25/17 05:30 11/25/17 05:30 Active Medications Acetaminophen (Ofirmev Injection -) 1,000 mg IVPB Q6H PRN PRN Reason: Pain Level 7 - 10 BREAKTHROUGH Last Admin: 11/24/17 20:53 Dose: 1,000 mg Albuterol/Ipratropium (Duoneb -) 1 amp NEB Q4H PRN PRN Reason: SHORTNESS OF BREATH Anastrozole (Arimidex -) 1 mg PO DAILY [facility] Atorvastatin Calcium (Lipitor -) 20 mg PO HS [facility] Bupropion HCl (Wellbutrin -) 75 mg PO BID [facility] Carvedilol (Coreg -) 25 mg PO BID [facility] Last Admin: 11/25/17 10:20 Dose: 25 mg Chlorhexidine Gluconate (Hibiclens For Decolonization -) 1 applic TP HS [facility] Last Admin: 11/25/17 06:52 Dose: 1 applic Cyanocobalamin (Vitamin B12 -) 1,000 mcg PO DAILY [facility] Heparin Sodium (Porcine) (Heparin -) 5,000 unit SQ TID [facility] Last Admin: 11/25/17 06:58 Dose: 5,000 unit Hydromorphone HCl (Dilaudid Senior Electrical Estimator -) 10 mg POSTAL SUPERVISOR POSTAL SUPERVISOR [facility]; Protocol Stop: 12/01/17 12:02 Last Admin: 11/24/17 19:45 Dose: 10 mg Lactated Ringer's (Lactated Ringers Solution) 1,000 mls @ 100 mls/hr IV ASDIR [facility] Last Admin: 11/25/17 10:32 Dose: 100 mls/hr Insulin Aspart (Novolog Vial Sliding Scale -) 1 vial SQ TIDAC [facility]; Protocol Last Admin: 11/25/17 10:31 Dose: Not Given Mupirocin (Bactroban Ointment (For Decolonization) -) 1 applic NS BID [facility] Stop: 11/29/17 21:59 Last Admin: 11/25/17 10:20 Dose: 1 applic Ondansetron HCl (Zofran Injection) 4 mg IVPUSH Q6H PRN PRN Reason: NAUSEA AND/OR VOMITING Last Admin: 11/24/17 18:40 Dose: 4 mg Pantoprazole Sodium (Protonix Iv) 40 mg IVPUSH DAILY [facility] Last Admin: 11/25/17 10:21 Dose: 40 mg Valsartan (Diovan -) 80 mg PO DAILY [facility] ASSESSMENT AND PLAN: s/p Colostomy Reversal/SB resection Acute on Chronic Systolic Heart Failure Acute Kidney Injury COPD HTN Hyperlipidemia DM h/o CVA - pain control - incentive spirometry - monitor for return of bowel function - decrease IVF given CXR findings - monitor urine output, creatinine - resume anticoagulation when ok with surgery - activity/massey/disposition per surgery - DVT prophylaxis
--- NOTE | 2017-11-25 12:53 | PN ---
Progress Note, Physician History of Present Illness: Tolerated reversal of colostomy and SB resection, denies chest pain and dyspnea , awaiting flatus. - Current Medication List Current Medications: Active Medications Acetaminophen (Ofirmev Injection -) 1,000 mg IVPB Q6H PRN PRN Reason: Pain Level 7 - 10 BREAKTHROUGH Last Admin: 11/24/17 20:53 Dose: 1,000 mg Albuterol/Ipratropium (Duoneb -) 1 amp NEB Q4H PRN PRN Reason: SHORTNESS OF BREATH Anastrozole (Arimidex -) 1 mg PO DAILY [facility] Atorvastatin Calcium (Lipitor -) 20 mg PO HS [facility] Bupropion HCl (Wellbutrin -) 75 mg PO BID [facility] Carvedilol (Coreg -) 25 mg PO BID [facility] Last Admin: 11/25/17 10:20 Dose: 25 mg Chlorhexidine Gluconate (Hibiclens For Decolonization -) 1 applic TP HS [facility] Last Admin: 11/25/17 06:52 Dose: 1 applic Cyanocobalamin (Vitamin B12 -) 1,000 mcg PO DAILY [facility] Heparin Sodium (Porcine) (Heparin -) 5,000 unit SQ TID [facility] Last Admin: 11/25/17 06:58 Dose: 5,000 unit Hydromorphone HCl (Dilaudid Visiting Housekeeper -) 10 mg UROLOGY SURGEON UROLOGY SURGEON [facility]; Protocol Stop: 12/01/17 12:02 Last Admin: 11/24/17 19:45 Dose: 10 mg Lactated Ringer's (Lactated Ringers Solution) 1,000 mls @ 100 mls/hr IV ASDIR [facility] Last Admin: 11/25/17 10:32 Dose: 100 mls/hr Insulin Aspart (Novolog Vial Sliding Scale -) 1 vial SQ TIDAC [facility]; Protocol Last Admin: 11/25/17 10:31 Dose: Not Given Mupirocin (Bactroban Ointment (For Decolonization) -) 1 applic NS BID [facility] Stop: 11/29/17 21:59 Last Admin: 11/25/17 10:20 Dose: 1 applic Ondansetron HCl (Zofran Injection) 4 mg IVPUSH Q6H PRN PRN Reason: NAUSEA AND/OR VOMITING Last Admin: 11/24/17 18:40 Dose: 4 mg Pantoprazole Sodium (Protonix Iv) 40 mg IVPUSH DAILY [facility] Last Admin: 11/25/17 10:21 Dose: 40 mg Valsartan (Diovan -) 80 mg PO DAILY [facility] - Objective Vital Signs: Vital Signs Temperature 97.7 F 11/25/17 10:00 Pulse Rate 74 11/25/17 10:00 Respiratory Rate 18 11/25/17 10:00 Blood Pressure 141/55 L 11/25/17 10:00 O2 Sat by Pulse Oximetry (%) 96 11/24/17 23:10 Constitutional: Yes: No Distress, Calm Neck: Yes: Supple Cardiovascular: Yes: Regular Rate and Rhythm Respiratory: Yes: Regular, Diminished, On Nasal O2 Gastrointestinal: Yes: Soft, Hypoactive Bowel Sounds Edema: No Labs: CBC, BMP 11/25/17 05:30 11/25/17 05:30 INR, PTT INR 1.14 (0.83-1.09) H 11/23/17 11:00 - ....Imaging Chest X-ray: Report Reviewed (R>L effusions) Problem List - Problems (1) Acute exacerbation of congestive heart failure Code(s): I50.9 - HEART FAILURE, UNSPECIFIED (2) Anemia Code(s): D64.9 - ANEMIA, UNSPECIFIED Qualifiers: Anemia type: unspecified type Qualified Code(s): D64.9 - Anemia, unspecified (3) Anticoagulant long-term use Code(s): Z79.01 - [facility] (CURRENT) USE OF 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 (4) COPD (chronic obstructive pulmonary disease) Code(s): J44.9 - CHRONIC OBSTRUCTIVE PULMONARY DISEASE, UNSPECIFIED Qualifiers: COPD type: unspecified COPD Qualified Code(s): J44.9 - Chronic obstructive pulmonary disease, unspecified (5) Diabetes mellitus type 2, noninsulin dependent Code(s): E11.9 - TYPE 2 DIABETES MELLITUS WITHOUT COMPLICATIONS (6) H/O: CVA (cerebrovascular accident) Code(s): Z86.73 - PRSNL HX OF TIA (TIA), AND CEREB INFRC W/O RESID DEFICITS (7) Hypertension Code(s): I10 - ESSENTIAL (PRIMARY) HYPERTENSION Qualifiers: Hypertension type: essential hypertension Qualified Code(s): I10 - Essential (primary) hypertension (8) Left renal artery stenosis Code(s): I70.1 - ATHEROSCLEROSIS OF RENAL ARTERY (9) Subtherapeutic anticoagulation Code(s): Z51.81 - ENCOUNTER FOR THERAPEUTIC DRUG LEVEL MONITORING; Z79.01 - [facility] (CURRENT) USE OF 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 (10) Acute kidney injury Code(s): N17.9 - ACUTE KIDNEY FAILURE, UNSPECIFIED Assessment/Plan 12/24/2016 Echo: Normal LV size with moderate decreased LV fxn, mild pericardial effusion, mild ASHLEY, mod MR, mild PA, TR 1. POD #1 colostomy reversal/SB resection 2. Acute on chronic LV systolic failure with pleural effusions 3. H/o perforated sigmoid colon (pathology c/w ischemic colitis) post resection (Dwaine's procedure) 4. History of CVA with left MCA thrombus now with subtherapeutic INR 5. COPD 6. HTN/HCVD 7. Hyperlipidemia 8. Anemia 9. 50-60% distal left renal artery stenosis 10. Type 2 DM 11. SIVA 12. Type 2 DM PLAN: 1. Judicious hydration with monitor renal function and electrolytes 2. Continue carvedilol 25 bid, Lipitor 20 qhs, and Diovan 80 qd with caution 3. Resume Coumadin post-op once hemostasis achieved 4. DVT and GI prophylaxis, OOB to chair, analgesia as needed, IS, monitor for return of bowel function
[2017-11-25] MEDS: SODIUM CHLORIDE 1,000 ML IV SCH (14:39)
--- NOTE | 2017-11-25 15:49 | PN ---
Progress Note (short form) - Note Progress Note: Anesthesiology Post-op/Pain Service 66 y.o. woman POD #1 s/p Dwaine's reversal with small bowel resection under GA with post-op PANMAN. Pt. is AA+O in ICU post-op, doing well. She is sitting-up in bed and denies pain. She states that she only gets pain when operative site is being examined. She denies n/v or other anesthesia-related issues. VSS. Currently she remains NPO. 66 y.o. woman with stable post-operative course on PANMAN. Continue PANMAN for now because pt. is NPO. Otherwise, would anticipate d/c of PANMAN very soon since pt. is not using it frequently.
--- NOTE | 2017-11-25 16:34 | PN ---
Progress Note, Physician History of Present Illness: Pt with colostomy and enterocutaneous fistula, now s/p takedown of both with SB resection and scar revision, in ICU postoperatively for close monitoring of electrolyte, renal and fluid status. Acute on chronic CHF diuresed preop, now clinically a bit dry but with adequate UOP since 1 bolus last night. Renal function took a hit, trending labs daily. Pt reports feeling minimal pain, using SEMIAUTOMATIC TAPER OPERATOR prn, has not yet been OOB to chair but about to do so. Using IS, sats mid-90s on NC O2 (baseline). No acute events overnight. PMD and Cardiology also following. Completed periop antibiotics yesterday evening. Sugars ok. Pt c/o feeling hungry and thirsty. Seen and examined in room in ICU in bed. Alert, appropriate, comfortable. ICU consult appreciated. - Current Medication List Current Medications: Active Medications Acetaminophen (Ofirmev Injection -) 1,000 mg IVPB Q6H PRN PRN Reason: Pain Level 7 - 10 BREAKTHROUGH Last Admin: 11/24/17 20:53 Dose: 1,000 mg Albuterol/Ipratropium (Duoneb -) 1 amp NEB Q4H PRN PRN Reason: SHORTNESS OF BREATH Anastrozole (Arimidex -) 1 mg PO DAILY [facility] Atorvastatin Calcium (Lipitor -) 20 mg PO HS [facility] Bupropion HCl (Wellbutrin -) 75 mg PO BID [facility] Carvedilol (Coreg -) 25 mg PO BID [facility] Last Admin: 11/25/17 10:20 Dose: 25 mg Chlorhexidine Gluconate (Hibiclens For Decolonization -) 1 applic TP HS [facility] Last Admin: 11/25/17 06:52 Dose: 1 applic Cyanocobalamin (Vitamin B12 -) 1,000 mcg PO DAILY [facility] Heparin Sodium (Porcine) (Heparin -) 5,000 unit SQ TID [facility] Last Admin: 11/25/17 14:25 Dose: 5,000 unit Hydromorphone HCl (Dilaudid Harpsichord Maker -) 10 mg SEMIAUTOMATIC TAPER OPERATOR SEMIAUTOMATIC TAPER OPERATOR [facility]; Protocol Stop: 12/01/17 12:02 Last Admin: 11/24/17 19:45 Dose: 10 mg Sodium Chloride (Normal Saline -) 1,000 mls @ 75 mls/hr IV ASDIR [facility] Last Admin: 11/25/17 14:39 Dose: 75 mls/hr Insulin Aspart (Novolog Vial Sliding Scale -) 1 vial SQ TIDAC [facility]; Protocol Last Admin: 11/25/17 10:31 Dose: Not Given Mupirocin (Bactroban Ointment (For Decolonization) -) 1 applic NS BID [facility] Stop: 11/29/17 21:59 Last Admin: 11/25/17 10:20 Dose: 1 applic Ondansetron HCl (Zofran Injection) 4 mg IVPUSH Q6H PRN PRN Reason: NAUSEA AND/OR VOMITING Last Admin: 11/24/17 18:40 Dose: 4 mg Pantoprazole Sodium (Protonix Iv) 40 mg IVPUSH DAILY [facility] Last Admin: 11/25/17 10:21 Dose: 40 mg Valsartan (Diovan -) 80 mg PO DAILY [facility] - Objective Vital Signs: Vital Signs Temperature 98.6 F 11/25/17 14:00 Pulse Rate 74 11/25/17 14:39 Respiratory Rate 20 11/25/17 14:39 Blood Pressure 135/48 L 11/25/17 14:39 O2 Sat by Pulse Oximetry (%) 96 11/24/17 23:10 Vital Signs Period Temp Pulse Resp BP Sys/Holt Pulse Ox Last 24 Hr 97.6 F-98.6 F 64-81 14-23 129-164/47-87 94-100 Intake & Output 11/25/17 11/25/17 11/25/17 07:59 15:59 23:59 Intake Total 500 650 Output Total 260 170 Balance 240 480 Weight 172 lb 1.6 oz Intake: IV 500 650 Lactated Ringers Solution 500 650 1,000 ml @ 100 mls/hr IV ASDIR [facility] Rx#: [id number] Output: Gastric Drainage 10 10 Urine 250 160 Ecsobar 250 160 Other: Voiding Method Bedside Commode Indwelling Catheter Bowel Movement No UOP 150ml/~5 hrs earlier today, total 420ml since 7am by ~2:30pm urine in Escobar is clear/very light yellow NG with scant light/shauna output Constitutional: Yes: No Distress, Calm, Obese Eyes: Yes: EOM Intact, Other (right eye cloudy) HENT: Yes: Atraumatic, Normocephalic, Other (NG in place; mucus membranes dry) Cardiovascular: Yes: Regular Rate and Rhythm Respiratory: Yes: Regular, CTA Bilaterally, Diminished (slightly right base, but with + breath sounds), On Nasal O2. No: Rales, Rhonchi, Wheezes Gastrointestinal: Yes: Normal Bowel Sounds (slightly decreased but present in all quadrants), Soft, Abdomen, Obese, Tenderness (incisional only), Other ( dressings x3) ...Rectal Exam: Yes: Deferred Genitourinary: Yes: Escobar Present. No: Hematuria Musculoskeletal: No: Joint Stiffness, Joint Swelling Extremities: No: Cool, Cyanosis Edema: No (no pedal/ankle edema) Integumentary: Yes: Incision (x3, dressed). No: Jaundice, Rash Wound/Incision: Yes: Dressing Dry and Intact (midline wound - not removed yet), Dressing Removed (x2 - old stoma site and drain/fistula site - both with serosang drainage on dressings; both repacked with 1/2" iodoform, covered with gauze and tape, wounds clean, no active drainage), Unapproximated (2 lateral sites). No: Reddened Neurological: Yes: Alert, Oriented Psychiatric: Yes: Alert, Oriented Labs: CBC, BMP 11/25/17 05:30 11/25/17 05:30 CMP Sodium 140 mmol/L (136-145) 11/25/17 05:30 Potassium 4.3 mmol/L (3.5-5.1) 11/25/17 05:30 Chloride 106 mmol/L (98-107) 11/25/17 05:30 Carbon Dioxide 27 mmol/L (21-32) 11/25/17 05:30 Anion Gap 8 MMOL/L (8-16) 11/25/17 05:30 BUN 22 mg/dL (7-18) H 11/25/17 05:30 Creatinine 1.6 mg/dL (0.55-1.3) H 11/25/17 05:30 Creat Clearance w eGFR 32.05 (>60) 11/25/17 05:30 POC Glucometer 143.28266 UNITS (80-120) 11/25/17 10:24 Random Glucose 145 mg/dL (74-106) H 11/25/17 05:30 Calcium 8.7 mg/dL (8.5-10.1) 11/25/17 05:30 Phosphorus 6.1 mg/dL (2.5-4.9) H 11/25/17 05:30 Magnesium 2.4 mg/dL (1.8-2.4) 11/25/17 05:30 Cr increasing, phos high intravascularly dry H/H stable - ....Imaging Chest X-ray: Report Reviewed, Image Reviewed (images personally reviewed - portable film, semi-erect only; + congestive changes, pleural effusion more on right, hard to compare directly to full inspiration PA/lat film) Problem List - Problems (1) Colostomy in place Assessment/Plan: POD1 s/p colostomy reversal, takedown of entercutaneous fistula with small bowel resection, scar revision ICU postop for accurate I/O's, fluid management clinically intravascularly dry, though urine output acceptable would keep IVF at maintenance rate, no lasix yet ok to bolus 500-1000ml NS if UOP < 200ml/6 hrs fluids changed from LR to NS because of impaired renal function, monitor K and lytes NPO except carvedilol with few sips water bid/NG clamp after administration, otherwise continue to low suction GI/DVT prophylaxis - SCDs, heparin SQ q8H, PPI daily pain controlled with SEMIAUTOMATIC TAPER OPERATOR, IV tylenol available prn for breakthrough will take down midline dressing in 24-36 hrs dressing changed at old stoma site - wound clean will need VNS for daily packing changes on discharge home had [facility] in past will be able to help continue ICU care - discussed with Drs. Hughes and Vernon of ICU team This patient is critically ill. Time spent reviewing chart, examining patient, talking with providers and/or family and documentation is 45 minutes. 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 Assessment/Plan: see above dressing at old drain/fistula site changed, wound clean will need VNS for daily packing changes on discharge home, as noted above Code(s): K63.2 - FISTULA OF INTESTINE (3) Anticoagulant long-term use Assessment/Plan: continue DVT prophylaxis while off of therapeutic anticoagulation holding coumadin - will be able to resume when NG is out and pt back on po intake Code(s): Z79.01 - INTERMEDIATE (CURRENT) USE OF 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 (4) COPD without exacerbation Assessment/Plan: cardiology and medicine following pt with known pleural effusions, R>L NC O2 to keep sats >=94% (baseline on RA is mid-90s) encouraged IS use and sitting up in chair/OOB as tolerated pt can get 1000-1200ml on IS with good effort Code(s): J44.9 - CHRONIC OBSTRUCTIVE PULMONARY DISEASE, UNSPECIFIED (5) Diabetes mellitus type 2, noninsulin dependent Assessment/Plan: FS with SSI coverage until back on diet postop Code(s): E11.9 - TYPE 2 DIABETES MELLITUS WITHOUT COMPLICATIONS (6) H/O: CVA (cerebrovascular accident) Assessment/Plan: off coumadin perioperatively Code(s): Z86.73 - PRSNL HX OF TIA (TIA), AND CEREB INFRC W/O RESID DEFICITS (7) Hypertension Assessment/Plan: continue carvedilol with sips holding other home meds including lasix for now cardio following Code(s): I10 - ESSENTIAL (PRIMARY) HYPERTENSION Qualifiers: Hypertension type: essential hypertension Qualified Code(s): I10 - Essential (primary) hypertension (8) Cancer of left breast Assessment/Plan: resume arimidex when back on PO Code(s): C50.912 - MALIGNANT NEOPLASM OF UNSPECIFIED SITE OF LEFT FEMALE BREAST Qualifiers: Breast location: upper outer quadrant of breast Estrogen receptor status: positive Patient sex: female Qualified Code(s): C50.412 - Malignant neoplasm of upper-outer quadrant of left female breast (9) Depression Assessment/Plan: resume wellbutrin when back on PO Code(s): F32.9 - MAJOR DEPRESSIVE DISORDER, SINGLE EPISODE, UNSPECIFIED Qualifiers: Depression Type: reactive depression Qualified Code(s): F32.9 - Major depressive disorder, single episode, unspecified (10) Acute on chronic systolic congestive heart failure Assessment/Plan: BNP was elevated on admission - was diuresed with lasix preop, renal function still recovering cardiology notes appreciated judicious but adequate hydration, monitor lytes, UOP, pulmonary status Code(s): I50.23 - ACUTE ON CHRONIC SYSTOLIC (CONGESTIVE) HEART FAILURE (11) Bilateral pleural effusion Assessment/Plan: see above Code(s): J90 - PLEURAL EFFUSION, NOT ELSEWHERE CLASSIFIED
--- NOTE | 2017-11-25 16:51 | PN ---
Physical Exam: SUBJECTIVE: Patient seen and examined. Pt. had no acute events overnight. Pt. denies chest pain, shortness of breath, abdominal pain, nausea, vomiting, passing gas, passing stool, numbness or tingling of the extremities. OBJECTIVE: Vital Signs Period Temp Pulse Resp BP Sys/Holt Pulse Ox Last 24 Hr 97.6 F-98.6 F 64-81 14-23 129-164/47-87 94-100 GENERAL: The patient is awake, alert, and fully oriented, sitting up in bed in no acute distress. EYES: Sclera anicteric, conjunctiva clear, cloudy iris in right eye, No ptosis. ENT: Ears normal, nares patent, oropharynx clear without exudates, dry mucous membranes, NG tube present. LUNGS: Decreased breath sounds, no wheezes, mild bibasilar crackles, no accessory muscle use. HEART: Regular rate and rhythm, S1, S2 with murmur? ABDOMEN: Soft, exquisite tenderness to palpation, nondistended, normoactive bowel sounds, dull to percussion, Escobar present draining clear yellow urine, wound dressing c/d/i w/ minimal serosanguinous drainage EXTREMITIES: 2+ dorsal pedal pulses, warm, well-perfused, no edema, moves all extremities NEUROLOGICAL: Normal speech, gait not observed. PSYCH: Normal mood, normal affect. SKIN: Warm, dry, decreased skin turgor Laboratory Results - last 24 hr 11/24/17 11/24/17 11/24/17 19:25 19:25 21:38 WBC 7.7 RBC 3.46 L Hgb 11.0 Hct 33.5 MCV 96.9 H MCH 31.9 MCHC 32.9 RDW 15.1 Plt Count 292 MPV 7.8 Absolute Neuts (auto) 6.7 Neutrophils % 86.9 H Lymphocytes % 4.8 L D Monocytes % 8.0 Eosinophils % 0.1 D Basophils % 0.2 Nucleated RBC % 0 Sodium 142 Potassium 4.4 Chloride 105 Carbon Dioxide 24 Anion Gap 13 BUN 20 H Creatinine 1.4 H Creat Clearance w eGFR 37.39 POC Glucometer 186 Random Glucose 169 H Calcium 9.2 Phosphorus 4.7 Magnesium 2.4 11/25/17 11/25/17 11/25/17 05:30 05:30 06:03 WBC 9.0 RBC 3.06 L Hgb 9.9 L Hct 29.8 L MCV 97.3 H MCH 32.2 MCHC 33.0 RDW 15.4 Plt Count 226 D MPV 8.4 Absolute Neuts (auto) 8.0 Neutrophils % 89.5 H Lymphocytes % 4.5 L Monocytes % 5.8 Eosinophils % 0.0 D Basophils % 0.2 Nucleated RBC % 0 Sodium 140 Potassium 4.3 Chloride 106 Carbon Dioxide 27 Anion Gap 8 BUN 22 H Creatinine 1.6 H Creat Clearance w eGFR 32.05 POC Glucometer 181.12659 Random Glucose 145 H Calcium 8.7 Phosphorus 6.1 H Magnesium 2.4 11/25/17 11/25/17 10:24 16:22 WBC RBC Hgb Hct MCV MCH MCHC RDW Plt Count MPV Absolute Neuts (auto) Neutrophils % Lymphocytes % Monocytes % Eosinophils % Basophils % Nucleated RBC % Sodium Potassium Chloride Carbon Dioxide Anion Gap BUN Creatinine Creat Clearance w eGFR POC Glucometer 143.62523 119.07552 Random Glucose Calcium Phosphorus Magnesium Active Medications Current Medications Acetaminophen (Ofirmev Injection -) 1,000 mg IVPB Q6H PRN PRN Reason: Pain Level 7 - 10 BREAKTHROUGH Last Admin: 11/24/17 20:53 Dose: 1,000 mg Albuterol/Ipratropium (Duoneb -) 1 amp NEB Q4H PRN PRN Reason: SHORTNESS OF BREATH Anastrozole (Arimidex -) 1 mg PO DAILY [facility] Atorvastatin Calcium (Lipitor -) 20 mg PO HS [facility] Bupropion HCl (Wellbutrin -) 75 mg PO BID [facility] Carvedilol (Coreg -) 25 mg PO BID [facility] Last Admin: 11/25/17 10:20 Dose: 25 mg Chlorhexidine Gluconate (Hibiclens For Decolonization -) 1 applic TP HS [facility] Last Admin: 11/25/17 06:52 Dose: 1 applic Cyanocobalamin (Vitamin B12 -) 1,000 mcg PO DAILY [facility] Heparin Sodium (Porcine) (Heparin -) 5,000 unit SQ TID [facility] Last Admin: 11/25/17 14:25 Dose: 5,000 unit Hydromorphone HCl (Dilaudid [employer] -) 10 mg DYE STAND LOADER DYE STAND LOADER [facility]; Protocol Stop: 12/01/17 12:02 Last Admin: 11/24/17 19:45 Dose: 10 mg Sodium Chloride (Normal Saline -) 1,000 mls @ 75 mls/hr IV ASDIR [facility] Last Admin: 11/25/17 14:39 Dose: 75 mls/hr Insulin Aspart (Novolog Vial Sliding Scale -) 1 vial SQ TIDAC [facility]; Protocol Last Admin: 11/25/17 16:35 Dose: Not Given Mupirocin (Bactroban Ointment (For Decolonization) -) 1 applic NS BID [facility] Stop: 11/29/17 21:59 Last Admin: 11/25/17 10:20 Dose: 1 applic Ondansetron HCl (Zofran Injection) 4 mg IVPUSH Q6H PRN PRN Reason: NAUSEA AND/OR VOMITING Last Admin: 11/24/17 18:40 Dose: 4 mg Pantoprazole Sodium (Protonix Iv) 40 mg IVPUSH DAILY [facility] Last Admin: 11/25/17 10:21 Dose: 40 mg Valsartan (Diovan -) 80 mg PO DAILY [facility] ASSESSMENT/PLAN: A 66 y.o. F w/ PMHx. of DM, HTN, HLD, Breast CA, Hx. of perforated sigmoid colon s/p sigmoid resection with colostomy, presents to the ICU s/p colostomy reversal POD #1. #Cardiovascular -HTN c/w Coreg 25mg BID- please place NG tube on suction 1 hour after PO administration. hold Valsartan 80mg -CHF Echo appreciated showing nml LV size, mod. decreased LV fxn., mild pericardial effusion, mild bilateral atrial enlargement, mod. MR, mild TR and IL c/w IVf administration as Pt. is clinically dry Hold Lasix at this point- per Dr. Mitchell -D hold Lipitor #Gastroenterology -S/p Colostomy reversal NPO except for sips of water with Coreg Protonix 40mg IVPB monitor for return of bowel function( passing gas and passing stool) #Nephrology -SIVA 2/2 dehydration c/w IVF NS @ 75ml/ hr Creatinine is 1.6; baseline of 1.0 monitor weights: 78.018kgs today monitor urine output with Escobar ensure that there is 200cc urine output every 6 hours, If Pt. does not produce 200cc then bolus 500ml-1L of fluids. Avoid nephrotoxic drugs #Oncology -Breast CA. stable hold Anastrozole #Neurology -Hx. of CVA Hold warfarin until hemodynamically stable and Pt. is outside of the perioperative window. -Depression stable Hold Bupoprion #F/E/N -c/w NS @ 75ml/hr -monitor electrolytes and replete as needed -NPO except for small sips of water with medications #DVT Ppx. -Heparin SQ 5k TID will resume warfarin once cleared by Dr. Mitchell, unable to use Lovenox as Pt. has SIVA Visit type - Emergency Visit Emergency Visit: No - New Patient This patient is new to me today: Yes Date on this admission: 11/25/17 - Critical Care Critical Care patient: No - Discharge Referral Referred to [facility] Med P.C.: No
[2017-11-25] MEDS: POLYETHYLENE GLYCOL 3350 119 GM BTL PO SCH (22:14)
[2017-11-26] MEDS: SODIUM CHLORIDE 1,000 ML IV SCH ×2 (01:00→10:36)
[2017-11-26 05:55] LABS: HEMATOCRIT 24.3 % (32.4-45.2); MCH 32.3 pg (25.7-33.7); MCHC 32.8 g/dl (32.0-36.0); MEAN CELL VOLUME 98.2 fl (80-96); MEAN PLT VOLUME 8.3 fl (7.5-11.1); PLATELET COUNT 189 K/MM3 (134-434); RBC 2.47 M/mm3 (3.60-5.2); RDW 15.2 % (11.6-15.6); WHITE BLOOD COUNT 7.9 K/mm3 (4.0-10.0)
[2017-11-26] MEDS: INSULIN SLIDING SCALE (NOVOLOG) 1 VIAL SQ SCH ×3 (06:24→16:47)
[2017-11-26] MEDS: HYDROmorphone *PCA* 10MG/50ML DISP.SYRIN PCA SCH (06:24)
[2017-11-26] MEDS: HEPARIN NA (PORCINE) 5,000 UNITS/ML 1ML VIAL SQ SCH ×3 (06:24→21:36)
[2017-11-26 08:21] LABS: ALBUMIN 2.4 g/dl (3.4-5.0); ALK PHOS 62 U/L (45-117); ANION GAP 6 MMOL/L (8-16); BILIRUBIN,TOTAL 0.3 mg/dL (0.2-1); BLOOD UREA NITROGEN 24 mg/dL (7-18); CALCIUM 8.2 mg/dL (8.5-10.1); CHLORIDE 105 mmol/L (98-107); CO2 30 mmol/L (21-32); CREATININE 1.1 mg/dL (0.55-1.3); GLUCOSE,RANDOM 84 mg/dL (74-106); MAGNESIUM 2.2 mg/dL (1.8-2.4); PHOSPHOROUS 3.8 mg/dL (2.5-4.9); POTASSIUM 4.3 mmol/L (3.5-5.1); SGOT/AST 14 U/L (15-37); SGPT/ALT 15 U/L (13-61); SODIUM 141 mmol/L (136-145); TOT PROT 5.2 g/dl (6.4-8.2)
--- NOTE | 2017-11-26 08:47 | PN ---
Physical Exam: SUBJECTIVE: Patient seen and examined. Pt. had no acute events overnight. Pt. denies CP, SOB, N/V/F/C, passing gas or passing stool. Pt. endorses feeling hungry. OBJECTIVE: Vital Signs Period Temp Pulse Resp BP Sys/Holt Pulse Ox Last 24 Hr 97.5 F-98.6 F 68-84 13-27 117-141/43-68 99-99 GENERAL: The patient is awake, alert, and fully oriented, in no acute distress. EYES: cloudy right iris, sclera anicteric, conjunctiva clear. No ptosis. ENT: Ears normal, nares patent, dry mucous membranes. LUNGS: CTAB, HEART: Regular rate and rhythm, S1, S2 with holosystolic blowing murmur ABDOMEN: Soft, nontender, nondistended, bowel sound sluggish, no guarding, no rebound, dressing c/d/i, Escobar present draining clear yellow urine EXTREMITIES: 2+ dorsal pedal pulses, cool to touch, well-perfused, no edema. NEUROLOGICAL: Normal speech, gait not observed. PSYCH: Normal mood, normal affect. SKIN: Warm, dry, normal turgor, Laboratory Results - last 24 hr 11/25/17 11/25/17 11/25/17 06:03 10:24 16:22 WBC RBC Hgb Hct MCV MCH MCHC RDW Plt Count MPV Sodium Potassium Chloride Carbon Dioxide Anion Gap BUN Creatinine Creat Clearance w eGFR POC Glucometer 181.47004 143.57244 119.16480 Random Glucose Calcium Phosphorus Magnesium Total Bilirubin AST ALT Alkaline Phosphatase Total Protein Albumin 11/26/17 11/26/17 11/26/17 05:13 05:30 05:30 WBC 7.9 RBC 2.47 L Hgb 8.0 L Hct 24.3 L D MCV 98.2 H MCH 32.3 MCHC 32.8 RDW 15.2 Plt Count 189 MPV 8.3 Sodium 141 Potassium 4.3 Chloride 105 Carbon Dioxide 30 Anion Gap 6 L BUN 24 H Creatinine 1.1 Creat Clearance w eGFR 49.39 POC Glucometer 104.48362 Random Glucose 84 Calcium 8.2 L Phosphorus 3.8 Magnesium 2.2 Total Bilirubin 0.3 AST 14 L ALT 15 Alkaline Phosphatase 62 Total Protein 5.2 L Albumin 2.4 L 11/26/17 05:30 WBC RBC Hgb Hct MCV MCH MCHC RDW Plt Count MPV Sodium Potassium Chloride Carbon Dioxide Anion Gap BUN Creatinine Creat Clearance w eGFR POC Glucometer Random Glucose Calcium Phosphorus Cancelled Magnesium Cancelled Total Bilirubin AST ALT Alkaline Phosphatase Total Protein Albumin Active Medications Current Medications Acetaminophen (Ofirmev Injection -) 1,000 mg IVPB Q6H PRN PRN Reason: Pain Level 7 - 10 BREAKTHROUGH Last Admin: 11/24/17 20:53 Dose: 1,000 mg Albuterol/Ipratropium (Duoneb -) 1 amp NEB Q4H PRN PRN Reason: SHORTNESS OF BREATH Anastrozole (Arimidex -) 1 mg PO DAILY [facility] Atorvastatin Calcium (Lipitor -) 20 mg PO HS [facility] Bupropion HCl (Wellbutrin -) 75 mg PO BID [facility] Carvedilol (Coreg -) 25 mg PO BID [facility] Last Admin: 11/25/17 22:13 Dose: 25 mg Chlorhexidine Gluconate (Hibiclens For Decolonization -) 1 applic TP HS [facility] Last Admin: 11/25/17 22:14 Dose: 1 applic Cyanocobalamin (Vitamin B12 -) 1,000 mcg PO DAILY [facility] Heparin Sodium (Porcine) (Heparin -) 5,000 unit SQ TID [facility] Last Admin: 11/26/17 06:24 Dose: 5,000 unit Hydromorphone HCl (Dilaudid Bench Tool Maker -) 10 mg MACHINE CEMENTER AND FOLDER MACHINE CEMENTER AND FOLDER [facility]; Protocol Stop: 12/01/17 12:02 Last Admin: 11/26/17 06:24 Dose: Not Given Sodium Chloride (Normal Saline -) 1,000 mls @ 75 mls/hr IV ASDIR [facility] Last Admin: 11/26/17 01:00 Dose: 75 mls/hr Insulin Aspart (Novolog Vial Sliding Scale -) 1 vial SQ TIDAC [facility]; Protocol Last Admin: 11/26/17 06:24 Dose: Not Given Mupirocin (Bactroban Ointment (For Decolonization) -) 1 applic NS BID [facility] Stop: 11/29/17 21:59 Last Admin: 11/25/17 22:13 Dose: 1 applic Ondansetron HCl (Zofran Injection) 4 mg IVPUSH Q6H PRN PRN Reason: NAUSEA AND/OR VOMITING Last Admin: 11/24/17 18:40 Dose: 4 mg Pantoprazole Sodium (Protonix Iv) 40 mg IVPUSH DAILY [facility] Last Admin: 11/25/17 10:21 Dose: 40 mg Polyethylene Glycol (Miralax (For Daily Use) -) 17 gm PO DAILY [facility] Last Admin: 11/25/17 22:14 Dose: 17 gm Valsartan (Diovan -) 80 mg PO DAILY [facility] ASSESSMENT/PLAN: A 66 y.o. F w/ PMHx. of DM, HTN, HLD, Breast CA, COPD (not on home O2), Hx. of perforated sigmoid colon s/p sigmoid resection with colostomy, presents to the ICU s/p colostomy reversal POD #2. #Cardiovascular -HTN c/w Coreg 25mg BID- please place NG tube on suction 1 hour after PO administration. hold Valsartan 80mg -CHF Echo appreciated showing nml LV size, mod. decreased LV fxn., mild pericardial effusion, mild bilateral atrial enlargement, mod. MR, mild TR and VA c/w IVf administration as Pt. is clinically dry Hold Lasix at this point- per Dr. Mitchell -HLD hold Lipitor #Gastroenterology -S/p Colostomy reversal NPO except for sips of water with Coreg Protonix 40mg IVPB monitor for return of bowel function( passing gas and passing stool) C/w MACHINE CEMENTER AND FOLDER pump for pain management until tomorrow morning. #Nephrology -SIVA 2/2 dehydration-resolved Started D5-LR @ 75ml/hr D/C NS Creatinine is 1.0 at baseline monitor weights: 74.899kgs today monitor urine output with Escobar ensure that there is 200cc urine output every 6 hours, If Pt. does not produce 200cc then bolus 500ml-1L of fluids. Avoid nephrotoxic drugs #Oncology -Breast CA. stable hold Anastrozole #Pulmonary -COPD stable Pt. quit smoking 09/16/17 Duonebs RPN Ventolin PRN #Neurology -Hx. of CVA Hold warfarin until hemodynamically stable and Pt. is outside of the perioperative window. -Depression stable Hold Bupoprion #F/E/N -started on D5-LR @ 75ml/hr -D/c NS -monitor electrolytes and replete as needed -NPO except for small sips of water with medications #DVT Ppx. -Heparin SQ 5k TID will resume warfarin once cleared by Dr. Mitchell Visit type - Emergency Visit Emergency Visit: No - New Patient This patient is new to me today: No - Critical Care Critical Care patient: Yes Total Critical Care Time (in minutes): 36 Critical Care Statement: The care of this patient involved high complexity decision making to prevent further life threatening deterioration of the patient 's condition and/or to evaluate & treat vital organ system(s) failure or risk of failure. - Discharge Referral Referred to [facility] Med P.C.: No
--- NOTE | 2017-11-26 09:20 | PN ---
Progress Note, Physician History of Present Illness: Pt had colostomy and enterocutaneous fistula, now s/p takedown of both with SB resection and scar revision, in ICU postoperatively for close monitoring of electrolyte, renal and fluid status. Acute on chronic CHF diuresed preop, with chronic pleural effusions, satting well (96+% on NC O2) and using IS with good effort. Renal function took a hit, improving now from peak Cr 1.6 to 1.1 today. UOP marginal but adequate for 24 hrs (660 recorded; 27.5ml/hr), but almost clear in Escobar, and anticipated to increase with autodiuresis in next day or so. Weight 165 from 170 on admission. Pt reports feeling minimal pain, using CENTRIFUGE SEPARATOR TENDER prn, was OOB to chair for few hours yesterday. No acute events overnight. PMD and Cardiology also following. Sugars ok. Pt is hungry. Seen and examined in room in ICU in bed, with Dr. Junior of ICU team. Alert, appropriate, comfortable. - Current Medication List Current Medications: Active Medications Acetaminophen (Ofirmev Injection -) 1,000 mg IVPB Q6H PRN PRN Reason: Pain Level 7 - 10 BREAKTHROUGH Last Admin: 11/24/17 20:53 Dose: 1,000 mg Albuterol/Ipratropium (Duoneb -) 1 amp NEB Q4H PRN PRN Reason: SHORTNESS OF BREATH Anastrozole (Arimidex -) 1 mg PO DAILY [facility] Atorvastatin Calcium (Lipitor -) 20 mg PO HS [facility] Bupropion HCl (Wellbutrin -) 75 mg PO BID [facility] Carvedilol (Coreg -) 25 mg PO BID [facility] Last Admin: 11/25/17 22:13 Dose: 25 mg Chlorhexidine Gluconate (Hibiclens For Decolonization -) 1 applic TP HS [facility] Last Admin: 11/25/17 22:14 Dose: 1 applic Cyanocobalamin (Vitamin B12 -) 1,000 mcg PO DAILY [facility] Heparin Sodium (Porcine) (Heparin -) 5,000 unit SQ TID [facility] Last Admin: 11/26/17 06:24 Dose: 5,000 unit Hydromorphone HCl (Dilaudid Senior Pensions Administrator -) 10 mg CENTRIFUGE SEPARATOR TENDER CENTRIFUGE SEPARATOR TENDER [facility]; Protocol Stop: 12/01/17 12:02 Last Admin: 11/26/17 06:24 Dose: Not Given Sodium Chloride (Normal Saline -) 1,000 mls @ 75 mls/hr IV ASDIR [facility] Last Admin: 11/26/17 01:00 Dose: 75 mls/hr Insulin Aspart (Novolog Vial Sliding Scale -) 1 vial SQ TIDAC [facility]; Protocol Last Admin: 11/26/17 06:24 Dose: Not Given Mupirocin (Bactroban Ointment (For Decolonization) -) 1 applic NS BID [facility] Stop: 11/29/17 21:59 Last Admin: 11/25/17 22:13 Dose: 1 applic Ondansetron HCl (Zofran Injection) 4 mg IVPUSH Q6H PRN PRN Reason: NAUSEA AND/OR VOMITING Last Admin: 11/24/17 18:40 Dose: 4 mg Pantoprazole Sodium (Protonix Iv) 40 mg IVPUSH DAILY [facility] Last Admin: 11/25/17 10:21 Dose: 40 mg Polyethylene Glycol (Miralax (For Daily Use) -) 17 gm PO DAILY [facility] Last Admin: 11/25/17 22:14 Dose: 17 gm Valsartan (Diovan -) 80 mg PO DAILY [facility] - Objective Vital Signs: Vital Signs Temperature 97.5 F L 11/26/17 06:00 Pulse Rate 84 11/26/17 06:00 Respiratory Rate 20 11/26/17 07:56 Blood Pressure 138/49 L 11/26/17 06:00 O2 Sat by Pulse Oximetry (%) 99 11/26/17 07:55 Vital Signs Period Temp Pulse Resp BP Sys/Holt Pulse Ox Last 24 Hr 97.5 F-98.6 F 68-84 13-27 117-141/43-68 99-99 Intake & Output 11/25/17 11/26/17 11/26/17 23:59 07:59 15:59 Intake Total 300 950 Output Total 100 575 Balance 200 375 Weight 172 lb 165 lb 2 oz Intake: IV 300 900 Normal Saline - 1,000 ml 300 900 @ 75 mls/hr IV ASDIR [facility] Rx#:[id number] Oral 50 Output: Gastric Drainage 175 Urine 100 400 Escobar 100 400 Other: Voiding Method Diaper Indwelling Catheter Bowel Movement No No Height 5 ft 2 in Body Mass Index (BMI) 31.4 Constitutional: Yes: No Distress, Calm, Obese Eyes: Yes: EOM Intact, Other (right eye cloudy) HENT: Yes: Atraumatic, Normocephalic, Other (NG in place) Cardiovascular: Yes: Regular Rate and Rhythm Respiratory: Yes: Regular, CTA Bilaterally, Diminished (right base), On Nasal O2 Gastrointestinal: Yes: Normal Bowel Sounds, Soft, Abdomen, Obese, Tenderness ( incisional only), Other (wounds dressed x3) ...Rectal Exam: Yes: Deferred Genitourinary: Yes: Escobar Present. No: Hematuria Extremities: No: Cool, Cyanosis Edema: No Integumentary: Yes: Incision (midline w/mini; 2 open wounds left abdomen). No: Jaundice, Rash Wound/Incision: Yes: Clean/Dry (midline), Well Approximated (midline), [place] Intact (midline), Dressing Dry and Intact (midline), Dressing Removed (two left wounds changed - serous staining on dressings; midline removed and left open to air), Unapproximated (two left sites (old stoma, drain/fistula) - clean, red centeno with little yellow fat still showing; both packed with 1/2" iodoform, covered w/gauze and tape). No: Reddened Neurological: Yes: Alert, Oriented Labs: CBC, BMP 11/26/17 05:30 11/26/17 05:30 CMP Sodium 141 mmol/L (136-145) 11/26/17 05:30 Potassium 4.3 mmol/L (3.5-5.1) 11/26/17 05:30 Chloride 105 mmol/L (98-107) 11/26/17 05:30 Carbon Dioxide 30 mmol/L (21-32) 11/26/17 05:30 Anion Gap 6 MMOL/L (8-16) L 11/26/17 05:30 BUN 24 mg/dL (7-18) H 11/26/17 05:30 Creatinine 1.1 mg/dL (0.55-1.3) 11/26/17 05:30 Creat Clearance w eGFR 49.39 (>60) 11/26/17 05:30 POC Glucometer 104.93192 UNITS (80-120) 11/26/17 05:13 Random Glucose 84 mg/dL (74-106) 11/26/17 05:30 Calcium 8.2 mg/dL (8.5-10.1) L 11/26/17 05:30 Phosphorus 3.8 mg/dL (2.5-4.9) 11/26/17 05:30 Magnesium 2.2 mg/dL (1.8-2.4) 11/26/17 05:30 Total Bilirubin 0.3 mg/dL (0.2-1) 11/26/17 05:30 AST 14 U/L (15-37) L 11/26/17 05:30 ALT 15 U/L (13-61) 11/26/17 05:30 Alkaline Phosphatase 62 U/L (45-117) 11/26/17 05:30 Total Protein 5.2 g/dl (6.4-8.2) L 11/26/17 05:30 Albumin 2.4 g/dl (3.4-5.0) L 11/26/17 05:30 Cr back down K normal Phos and Mg normal glucose ok - ....Imaging Chest X-ray: Image Reviewed (image personally reviewed - appears less congested than yesterday, similar to preop (comparing portable to formal)) Problem List - Problems (1) Colostomy in place Assessment/Plan: POD2 s/p colostomy reversal, takedown of entercutaneous fistula with small bowel resection, scar revision ICU postop for accurate I/O's, fluid management less dry, urine output acceptable, clear/very light would keep IVF at maintenance rate, would not give any lasix yet maintain UOP at least 200ml/6 hrs with IV fluids NPO except carvedilol with few sips water bid/NG clamp after administration, otherwise continue to low suction GI/DVT prophylaxis - SCDs, heparin SQ q8H, PPI daily pain controlled with CENTRIFUGE SEPARATOR TENDER, IV tylenol available prn for breakthrough dressing changed at old stoma site - wound clean packed with 1/2" iodoform, covered with gauze and tape will need VNS for daily packing changes on discharge home had [facility] in past will be able to help continue ICU care - discussed with Drs. Hughes and Vernon of ICU team This patient is critically ill. Time spent reviewing chart, examining patient, talking with providers and/or family and documentation is 35 minutes. 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 Assessment/Plan: see above dressing at old drain/fistula site changed, wound clean will need VNS for daily packing changes on discharge home, as noted above Code(s): K63.2 - FISTULA OF INTESTINE (3) Anticoagulant long-term use Assessment/Plan: continue DVT prophylaxis while off of therapeutic anticoagulation holding coumadin - will be able to resume when NG is out and pt back on po intake Code(s): Z79.01 - HEALTH PROMOTER (CURRENT) USE OF 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 (4) COPD without exacerbation Assessment/Plan: cardiology and medicine following pt with known pleural effusions, R>L NC O2 to keep sats >=93% (baseline on RA is mid-90s) - to check without O2, as sats are high with it encouraged IS use and sitting up in chair/OOB as tolerated to walk a bit today Code(s): J44.9 - CHRONIC OBSTRUCTIVE PULMONARY DISEASE, UNSPECIFIED (5) Diabetes mellitus type 2, noninsulin dependent Assessment/Plan: FS with SSI coverage until back on diet postop Code(s): E11.9 - TYPE 2 DIABETES MELLITUS WITHOUT COMPLICATIONS (6) H/O: CVA (cerebrovascular accident) Assessment/Plan: off coumadin perioperatively Code(s): Z86.73 - PRSNL HX OF TIA (TIA), AND CEREB INFRC W/O RESID DEFICITS (7) Hypertension Assessment/Plan: continue carvedilol with sips holding other home meds including lasix for now cardio following Code(s): I10 - ESSENTIAL (PRIMARY) HYPERTENSION Qualifiers: Hypertension type: essential hypertension Qualified Code(s): I10 - Essential (primary) hypertension (8) Cancer of left breast Assessment/Plan: resume arimidex when back on PO Code(s): C50.912 - MALIGNANT NEOPLASM OF UNSPECIFIED SITE OF LEFT FEMALE BREAST Qualifiers: Breast location: upper outer quadrant of breast Estrogen receptor status: positive Patient sex: female Qualified Code(s): C50.412 - Malignant neoplasm of upper-outer quadrant of left female breast (9) Depression Assessment/Plan: resume wellbutrin when back on PO Code(s): F32.9 - MAJOR DEPRESSIVE DISORDER, SINGLE EPISODE, UNSPECIFIED Qualifiers: Depression Type: reactive depression Qualified Code(s): F32.9 - Major depressive disorder, single episode, unspecified (10) Acute on chronic systolic congestive heart failure Assessment/Plan: cardiology notes appreciated judicious but adequate hydration, monitor lytes, UOP, pulmonary status all acceptable at this time pleural effusions stable on CXR - less congested than yesterday hold off on lasix yet Code(s): I50.23 - ACUTE ON CHRONIC SYSTOLIC (CONGESTIVE) HEART FAILURE (11) Bilateral pleural effusion Assessment/Plan: see above Code(s): J90 - PLEURAL EFFUSION, NOT ELSEWHERE CLASSIFIED
--- NOTE | 2017-11-26 09:59 | PN ---
Progress Note, Physician Chief Complaint: Pt. resting comfortably in bed, pain controlled with DEER FARMER for dressing changes mostly. No GA complaints. - Current Medication List Current Medications: Active Medications Acetaminophen (Ofirmev Injection -) 1,000 mg IVPB Q6H PRN PRN Reason: Pain Level 7 - 10 BREAKTHROUGH Last Admin: 11/24/17 20:53 Dose: 1,000 mg Albuterol/Ipratropium (Duoneb -) 1 amp NEB Q4H PRN PRN Reason: SHORTNESS OF BREATH Anastrozole (Arimidex -) 1 mg PO DAILY [facility] Atorvastatin Calcium (Lipitor -) 20 mg PO HS [facility] Bupropion HCl (Wellbutrin -) 75 mg PO BID [facility] Carvedilol (Coreg -) 25 mg PO BID [facility] Last Admin: 11/25/17 22:13 Dose: 25 mg Chlorhexidine Gluconate (Hibiclens For Decolonization -) 1 applic TP HS [facility] Last Admin: 11/25/17 22:14 Dose: 1 applic Cyanocobalamin (Vitamin B12 -) 1,000 mcg PO DAILY [facility] Heparin Sodium (Porcine) (Heparin -) 5,000 unit SQ TID [facility] Last Admin: 11/26/17 06:24 Dose: 5,000 unit Hydromorphone HCl (Dilaudid Tank Welder -) 10 mg DEER FARMER DEER FARMER [facility]; Protocol Stop: 12/01/17 12:02 Last Admin: 11/26/17 06:24 Dose: Not Given Sodium Chloride (Normal Saline -) 1,000 mls @ 75 mls/hr IV ASDIR [facility] Last Admin: 11/26/17 01:00 Dose: 75 mls/hr Insulin Aspart (Novolog Vial Sliding Scale -) 1 vial SQ TIDAC [facility]; Protocol Last Admin: 11/26/17 06:24 Dose: Not Given Mupirocin (Bactroban Ointment (For Decolonization) -) 1 applic NS BID [facility] Stop: 11/29/17 21:59 Last Admin: 11/25/17 22:13 Dose: 1 applic Ondansetron HCl (Zofran Injection) 4 mg IVPUSH Q6H PRN PRN Reason: NAUSEA AND/OR VOMITING Last Admin: 11/24/17 18:40 Dose: 4 mg Pantoprazole Sodium (Protonix Iv) 40 mg IVPUSH DAILY [facility] Last Admin: 11/25/17 10:21 Dose: 40 mg Polyethylene Glycol (Miralax (For Daily Use) -) 17 gm PO DAILY [facility] Last Admin: 11/25/17 22:14 Dose: 17 gm Valsartan (Diovan -) 80 mg PO DAILY [facility] - Objective Vital Signs: Vital Signs Temperature 97.5 F L 11/26/17 06:00 Pulse Rate 84 11/26/17 06:00 Respiratory Rate 20 11/26/17 07:56 Blood Pressure 138/49 L 11/26/17 06:00 O2 Sat by Pulse Oximetry (%) 99 11/26/17 07:55 Constitutional: Yes: Well Nourished, No Distress, Calm Neurological: Yes: WNL, Alert, Oriented Labs: CBC, BMP 11/26/17 05:30 11/26/17 05:30 INR, PTT INR 1.14 (0.83-1.09) H 11/23/17 11:00 Assessment/Plan POD#2 s/p Dwaine's reversal with small bowel resection under GA. DEER FARMER. Doing well. Continue DEER FARMER until tomorrow.
[2017-11-26] MEDS ORDERED: PT OWN MED DRAWER 7, Y5N ONE (10:02)
[2017-11-26] MEDS: PANTOPRAZOLE SODIUM 40 MG VIAL IVPUSH SCH (10:35)
[2017-11-26] MEDS: CARVEDILOL 25 MG TABLET (FP) PO SCH ×2 (10:35→21:36)
--- NOTE | 2017-11-26 10:35 | PN ---
Progress Note (short form) - Note Progress Note: Current Medications Acetaminophen (Ofirmev Injection -) 1,000 mg IVPB Q6H PRN PRN Reason: Pain Level 7 - 10 BREAKTHROUGH Last Admin: 11/24/17 20:53 Dose: 1,000 mg Albuterol/Ipratropium (Duoneb -) 1 amp NEB Q4H PRN PRN Reason: SHORTNESS OF BREATH Anastrozole (Arimidex -) 1 mg PO DAILY [facility] Atorvastatin Calcium (Lipitor -) 20 mg PO HS [facility] Bupropion HCl (Wellbutrin -) 75 mg PO BID [facility] Carvedilol (Coreg -) 25 mg PO BID [facility] Last Admin: 11/25/17 22:13 Dose: 25 mg Chlorhexidine Gluconate (Hibiclens For Decolonization -) 1 applic TP HS [facility] Last Admin: 11/25/17 22:14 Dose: 1 applic Cyanocobalamin (Vitamin B12 -) 1,000 mcg PO DAILY [facility] Heparin Sodium (Porcine) (Heparin -) 5,000 unit SQ TID [facility] Last Admin: 11/26/17 06:24 Dose: 5,000 unit Hydromorphone HCl (Dilaudid Janitorial Services Supervisor -) 10 mg STRIPPER AND PRINTER STRIPPER AND PRINTER [facility]; Protocol Stop: 12/01/17 12:02 Last Admin: 11/26/17 06:24 Dose: Not Given Sodium Chloride (Normal Saline -) 1,000 mls @ 75 mls/hr IV ASDIR [facility] Last Admin: 11/26/17 01:00 Dose: 75 mls/hr Insulin Aspart (Novolog Vial Sliding Scale -) 1 vial SQ TIDAC [facility]; Protocol Last Admin: 11/26/17 06:24 Dose: Not Given Mupirocin (Bactroban Ointment (For Decolonization) -) 1 applic NS BID [facility] Stop: 11/29/17 21:59 Last Admin: 11/25/17 22:13 Dose: 1 applic Ondansetron HCl (Zofran Injection) 4 mg IVPUSH Q6H PRN PRN Reason: NAUSEA AND/OR VOMITING Last Admin: 11/24/17 18:40 Dose: 4 mg Pantoprazole Sodium (Protonix Iv) 40 mg IVPUSH DAILY [facility] Last Admin: 11/25/17 10:21 Dose: 40 mg Polyethylene Glycol (Miralax (For Daily Use) -) 17 gm PO DAILY [facility] Last Admin: 11/25/17 22:14 Dose: 17 gm Valsartan (Diovan -) 80 mg PO DAILY [facility] Laboratory Results - last 24 hr 11/25/17 11/25/17 11/25/17 06:03 10:24 16:22 WBC RBC Hgb Hct MCV MCH MCHC RDW Plt Count MPV Sodium Potassium Chloride Carbon Dioxide Anion Gap BUN Creatinine Creat Clearance w eGFR POC Glucometer 181.56457 143.85165 119.34590 Random Glucose Calcium Phosphorus Magnesium Total Bilirubin AST ALT Alkaline Phosphatase Total Protein Albumin 11/26/17 11/26/17 11/26/17 05:13 05:30 05:30 WBC 7.9 RBC 2.47 L Hgb 8.0 L Hct 24.3 L D MCV 98.2 H MCH 32.3 MCHC 32.8 RDW 15.2 Plt Count 189 MPV 8.3 Sodium 141 Potassium 4.3 Chloride 105 Carbon Dioxide 30 Anion Gap 6 L BUN 24 H Creatinine 1.1 Creat Clearance w eGFR 49.39 POC Glucometer 104.75689 Random Glucose 84 Calcium 8.2 L Phosphorus 3.8 Magnesium 2.2 Total Bilirubin 0.3 AST 14 L ALT 15 Alkaline Phosphatase 62 Total Protein 5.2 L Albumin 2.4 L 11/26/17 05:30 WBC RBC Hgb Hct MCV MCH MCHC RDW Plt Count MPV Sodium Potassium Chloride Carbon Dioxide Anion Gap BUN Creatinine Creat Clearance w eGFR POC Glucometer Random Glucose Calcium Phosphorus Cancelled Magnesium Cancelled Total Bilirubin AST ALT Alkaline Phosphatase Total Protein Albumin Vital Signs Temp 98.6 F 11/26/17 10:00 Pulse 75 11/26/17 10:00 Resp 18 11/26/17 10:00 BP 145/84 11/26/17 10:00 Pulse Ox 99 11/26/17 07:55 Intake & Output 11/25/17 11/25/17 11/26/17 11:59 23:59 11:59 Intake Total 500 950 950 Output Total 260 270 575 Balance 240 680 375 Weight 172 lb 1.6 oz 172 lb 165 lb 2 oz Intake: IV 500 950 900 Lactated Ringers Solution 500 650 1,000 ml @ 100 mls/hr IV ASDIR [facility] Rx#: [id number] Normal Saline - 1,000 ml 300 900 @ 75 mls/hr IV ASDIR [facility] Rx#:[id number] Oral 50 Output: Gastric Drainage 10 10 175 Urine 250 260 400 Escobar 250 260 400 Other: Voiding Method Indwelling Catheter Diaper Indwelling Catheter Bowel Movement No No Height 5 ft 2 in Body Mass Index (BMI) 31.4 CC: none ````````` CC; feels "hungry" ````````````````````` skin--Nl color heart--RR abd--BS quiet; non distended; multiple dressings present neuro--alert, coherent in NAD `````````````````````````````` Summ > s/p reversal of colostomy--as described in surgical procedure note; post Op day #2; clinically stable so far; NPO, and mgment as per Dr Mitchell > ASHD--BP okay; CXR stable; denies SOB, and oxygen sat is WNL; will check daily CXR > anemia--H/h lower; will check in AM > COPD--stable > DM--glucose OK not eating > Hx TIA/CVA--had been on Warfarin; will resume a/c as soon as she is surgically cleared ~~~~~~~~~~~~~~~~ Dr Caputo Problem List - Problems (1) Preprocedural examination Code(s): Z01.818 - ENCOUNTER FOR OTHER PREPROCEDURAL EXAMINATION (2) Anemia Code(s): D64.9 - ANEMIA, UNSPECIFIED Qualifiers: Anemia type: unspecified type Qualified Code(s): D64.9 - Anemia, unspecified (3) COPD without exacerbation Code(s): J44.9 - CHRONIC OBSTRUCTIVE PULMONARY DISEASE, UNSPECIFIED (4) Cancer of left breast Code(s): C50.912 - MALIGNANT NEOPLASM OF UNSPECIFIED SITE OF LEFT FEMALE BREAST Qualifiers: Breast location: upper outer quadrant of breast Estrogen receptor status: positive Patient sex: female Qualified Code(s): C50.412 - Malignant neoplasm of upper-outer quadrant of left female breast (5) Diabetes mellitus type 2, noninsulin dependent Code(s): E11.9 - TYPE 2 DIABETES MELLITUS WITHOUT COMPLICATIONS (6) H/O: CVA (cerebrovascular accident) Code(s): Z86.73 - PRSNL HX OF TIA (TIA), AND CEREB INFRC W/O RESID DEFICITS (7) Anticoagulant long-term use Code(s): Z79.01 - KEYSEATER OPERATOR (CURRENT) USE OF 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 (8) Colostomy in place Code(s): Z93.3 - COLOSTOMY STATUS
[2017-11-26] MEDS: MUPIROCIN 2% TOPICAL OINTMENT FOR DECOLONIZATION NS SCH ×2 (10:37→21:05)
[2017-11-26] MEDS ORDERED: DEXTROSE 5%-NORMAL SALINE 1,000 ML IV SCH (10:45)
[2017-11-26] MEDS: POLYETHYLENE GLYCOL 3350 119 GM BTL PO SCH (10:59)
[2017-11-26] MEDS ORDERED: MORPHINE SULFATE 2 MG/ML VIAL SQ PRN (11:45)
[2017-11-26] MEDS ORDERED: ACETAMINOPHEN 1000 MG/100 ML VIAL (NON FORMULARY) IVPB PRN (11:59)
--- NOTE | 2017-11-26 12:15 | PN ---
Teaching Attending Note Name of Resident: Luis Alberto Junior ATTENDING PHYSICIAN STATEMENT I saw and evaluated the patient. I reviewed the resident's note and discussed the case with the resident. I agree with the resident's findings and plan as documented. SUBJECTIVE: Patient seen and examined in the ICU. POD #2. No BM or flatus. Mild abdominal pain discomfort. NGT remains in place. No shortness of breath or chest pain. CXR: bilateral pulmonary vascular congestion / effusion OBJECTIVE: Intake & Output 11/23/17 11/24/17 11/25/17 11/26/17 23:59 23:59 23:59 23:59 Intake Total 5500 1450 950 Output Total 1200 530 575 Balance 4300 920 375 Weight 170 lb 165 lb 7 oz 172 lb 165 lb 2 oz Last Vital Signs Temp Pulse Resp BP Pulse Ox 98.6 F 75 18 145/84 99 11/26/17 10:00 11/26/17 10:00 11/26/17 10:00 11/26/17 10:00 11/26/17 07:55 Active Medications Acetaminophen (Ofirmev Injection -) 1,000 mg IVPB Q6H PRN PRN Reason: Pain 1-7 Albuterol/Ipratropium (Duoneb -) 1 amp NEB Q4H PRN PRN Reason: SHORTNESS OF BREATH Anastrozole (Arimidex -) 1 mg PO DAILY [facility] Atorvastatin Calcium (Lipitor -) 20 mg PO HS [facility] Bupropion HCl (Wellbutrin -) 75 mg PO BID [facility] Carvedilol (Coreg -) 25 mg PO BID [facility] Last Admin: 11/26/17 10:35 Dose: 25 mg Chlorhexidine Gluconate (Hibiclens For Decolonization -) 1 applic TP HS [facility] Last Admin: 11/25/17 22:14 Dose: 1 applic Cyanocobalamin (Vitamin B12 -) 1,000 mcg PO DAILY [facility] Heparin Sodium (Porcine) (Heparin -) 5,000 unit SQ TID [facility] Last Admin: 11/26/17 06:24 Dose: 5,000 unit Dextrose/Lactated Ringer's (D5-Lr -) 1,000 mls @ 75 mls/hr IV ASDIR [facility] Insulin Aspart (Novolog Vial Sliding Scale -) 1 vial SQ TIDAC [facility]; Protocol Last Admin: 11/26/17 06:24 Dose: Not Given Morphine Sulfate (Morphine Sulfate) 2 mg SQ Q4H PRN PRN Reason: PAIN LEVEL 6-10 Mupirocin (Bactroban Ointment (For Decolonization) -) 1 applic NS BID [facility] Stop: 11/29/17 21:59 Last Admin: 11/26/17 10:37 Dose: 1 applic Ondansetron HCl (Zofran Injection) 4 mg IVPUSH Q6H PRN PRN Reason: NAUSEA AND/OR VOMITING Last Admin: 11/24/17 18:40 Dose: 4 mg Pantoprazole Sodium (Protonix Iv) 40 mg IVPUSH DAILY [facility] Last Admin: 11/26/17 10:35 Dose: 40 mg Valsartan (Diovan -) 80 mg PO DAILY [facility] Gen: Awake and alert, NAD at rest Heart: RRR Lung: Bibasilar rales / rhonchi, no wheeze Abd: soft, nontender, Hypoactive BS, dressing intact Ext: no edema Laboratory Results - last 24 hr 11/25/17 11/25/17 11/26/17 06:03 16:22 05:13 WBC RBC Hgb Hct MCV MCH MCHC RDW Plt Count MPV Sodium Potassium Chloride Carbon Dioxide Anion Gap BUN Creatinine Creat Clearance w eGFR POC Glucometer 181.99172 119.40912 104.74903 Random Glucose Calcium Phosphorus Magnesium Total Bilirubin AST ALT Alkaline Phosphatase Total Protein Albumin 11/26/17 11/26/17 11/26/17 05:30 05:30 05:30 WBC 7.9 RBC 2.47 L Hgb 8.0 L Hct 24.3 L D MCV 98.2 H MCH 32.3 MCHC 32.8 RDW 15.2 Plt Count 189 MPV 8.3 Sodium 141 Potassium 4.3 Chloride 105 Carbon Dioxide 30 Anion Gap 6 L BUN 24 H Creatinine 1.1 Creat Clearance w eGFR 49.39 POC Glucometer Random Glucose 84 Calcium 8.2 L Phosphorus 3.8 Cancelled Magnesium 2.2 Cancelled Total Bilirubin 0.3 AST 14 L ALT 15 Alkaline Phosphatase 62 Total Protein 5.2 L Albumin 2.4 L ASSESSMENT AND PLAN: s/p Colostomy Reversal/SB resection Acute on Chronic Systolic Heart Failure Acute Kidney Injury COPD HTN Hyperlipidemia DM h/o CVA - pain control - incentive spirometry - monitor for return of bowel function - Change IVF to D5LR to avoid worsening hyperchloremia - monitor urine output, creatinine - resume anticoagulation when ok with surgery - activity/massey/disposition per surgery - DVT prophylaxis - Requires continued ICU monitoring Dr Cormier Critical care time spent in reviewing chart, evaluating patient and formulating plan - 36 minutes.
[2017-11-26] MEDS: DEXTROSE 5%-LACTATED RINGERS 1,000 ML IV SCH (12:28)
--- NOTE | 2017-11-26 12:38 | PN ---
Progress Note, Physician History of Present Illness: POD#2 reversal of colostomy and SB resection, denies chest pain and dyspnea, awaiting flatus. - Current Medication List Current Medications: Active Medications Acetaminophen (Ofirmev Injection -) 1,000 mg IVPB Q6H PRN PRN Reason: Pain 1-7 Albuterol/Ipratropium (Duoneb -) 1 amp NEB Q4H PRN PRN Reason: SHORTNESS OF BREATH Anastrozole (Arimidex -) 1 mg PO DAILY [facility] Atorvastatin Calcium (Lipitor -) 20 mg PO HS [facility] Bupropion HCl (Wellbutrin -) 75 mg PO BID [facility] Carvedilol (Coreg -) 25 mg PO BID [facility] Last Admin: 11/26/17 10:35 Dose: 25 mg Chlorhexidine Gluconate (Hibiclens For Decolonization -) 1 applic TP HS [facility] Last Admin: 11/25/17 22:14 Dose: 1 applic Cyanocobalamin (Vitamin B12 -) 1,000 mcg PO DAILY [facility] Heparin Sodium (Porcine) (Heparin -) 5,000 unit SQ TID [facility] Last Admin: 11/26/17 06:24 Dose: 5,000 unit Dextrose/Lactated Ringer's (D5-Lr -) 1,000 mls @ 75 mls/hr IV ASDIR [facility] Insulin Aspart (Novolog Vial Sliding Scale -) 1 vial SQ TIDAC [facility]; Protocol Last Admin: 11/26/17 06:24 Dose: Not Given Morphine Sulfate (Morphine Sulfate) 2 mg SQ Q4H PRN PRN Reason: PAIN LEVEL 6-10 Mupirocin (Bactroban Ointment (For Decolonization) -) 1 applic NS BID [facility] Stop: 11/29/17 21:59 Last Admin: 11/26/17 10:37 Dose: 1 applic Ondansetron HCl (Zofran Injection) 4 mg IVPUSH Q6H PRN PRN Reason: NAUSEA AND/OR VOMITING Last Admin: 11/24/17 18:40 Dose: 4 mg Pantoprazole Sodium (Protonix Iv) 40 mg IVPUSH DAILY [facility] Last Admin: 11/26/17 10:35 Dose: 40 mg Valsartan (Diovan -) 80 mg PO DAILY [facility] - Objective Vital Signs: Vital Signs Temperature 98.6 F 11/26/17 10:00 Pulse Rate 75 11/26/17 10:00 Respiratory Rate 18 09/27/18 10:00 Blood Pressure 145/84 11/26/17 10:00 O2 Sat by Pulse Oximetry (%) 99 11/26/17 07:55 Constitutional: Yes: No Distress, Calm Neck: Yes: Supple Cardiovascular: Yes: Regular Rate and Rhythm Respiratory: Yes: Regular, Diminished, On Nasal O2 Gastrointestinal: Yes: Soft, Hypoactive Bowel Sounds, Other (Post-op) Edema: No Labs: CBC, BMP 11/26/17 05:30 11/26/17 05:30 INR, PTT INR 1.14 (0.83-1.09) H 11/23/17 11:00 - ....Imaging Chest X-ray: Pending EKG: Report Reviewed (Tele: SR) Problem List - Problems (1) Acute exacerbation of congestive heart failure Code(s): I50.9 - HEART FAILURE, UNSPECIFIED (2) Anemia Code(s): D64.9 - ANEMIA, UNSPECIFIED Qualifiers: Anemia type: unspecified type Qualified Code(s): D64.9 - Anemia, unspecified (3) Anticoagulant long-term use Code(s): Z79.01 - PHYSICIAN PRIMARY CARE SPORTS MEDICINE (CURRENT) USE OF 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 (4) COPD (chronic obstructive pulmonary disease) Code(s): J44.9 - CHRONIC OBSTRUCTIVE PULMONARY DISEASE, UNSPECIFIED Qualifiers: COPD type: unspecified COPD Qualified Code(s): J44.9 - Chronic obstructive pulmonary disease, unspecified (5) Diabetes mellitus type 2, noninsulin dependent Code(s): E11.9 - TYPE 2 DIABETES MELLITUS WITHOUT COMPLICATIONS (6) H/O: CVA (cerebrovascular accident) Code(s): Z86.73 - PRSNL HX OF TIA (TIA), AND CEREB INFRC W/O RESID DEFICITS (7) Hypertension Code(s): I10 - ESSENTIAL (PRIMARY) HYPERTENSION Qualifiers: Hypertension type: essential hypertension Qualified Code(s): I10 - Essential (primary) hypertension (8) Left renal artery stenosis Code(s): I70.1 - ATHEROSCLEROSIS OF RENAL ARTERY (9) Subtherapeutic anticoagulation Code(s): Z51.81 - ENCOUNTER FOR THERAPEUTIC DRUG LEVEL MONITORING; Z79.01 - PHYSICIAN PRIMARY CARE SPORTS MEDICINE (CURRENT) USE OF 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 (10) Acute kidney injury Code(s): N17.9 - ACUTE KIDNEY FAILURE, UNSPECIFIED Assessment/Plan 12/24/2016 Echo: Normal LV size with moderate decreased LV fxn, mild pericardial effusion, mild ASHLEY, mod MR, mild OK, TR 1. POD #2 colostomy reversal/SB resection 2. Acute on chronic LV systolic failure with pleural effusions 3. H/o perforated sigmoid colon (pathology c/w ischemic colitis) post resection (Dwaine's procedure) 4. History of CVA with left MCA thrombus now with subtherapeutic INR 5. COPD 6. HTN/HCVD 7. Hyperlipidemia 8. Anemia 9. 50-60% distal left renal artery stenosis 10. Type 2 DM 11. SIVA improving 12. Type 2 DM PLAN: 1. Judicious hydration with monitor renal function and electrolytes 2. Continue carvedilol 25 bid, Lipitor 20 qhs, and Diovan 80 qd with caution 3. Resume Coumadin post-op once hemostasis achieved, monitor Hgb and transfuse for Hgb<8.0 4. DVT and GI prophylaxis, OOB to chair, analgesia as needed, IS, monitor for return of bowel function
--- NOTE | 2017-11-26 17:22 | PATH ---
Surgical Pathology Report Patient Name: TERRY SONG [facility]. Rec. #: [id number] /Age/Gender: 1950 (Age: 66) / F Account: [id number] Location: ICU TRIAL JUDGE Taken: 11/24/2017 Received: 11/25/2017 Reported: 11/26/2017 Physicians: Isreal Mitchell M.D. Specimen(s) Received A: SCAR TISSUE B: SMALL BOWEL,SEGMENTAL RESECTION C: COLOSTOMY Clinical History Colostomy status/fistula the distal colon/rectum, scar of skin perforated sigmoid Final Diagnosis A. SCAR TISSUE, EXCISION: SKIN WITH SCAR. B. SMALL BOWEL, RESECTION: SEGMENT OF SMALL BOWEL WITH FOCAL MUCOSAL ISCHEMIC CHANGES AND HEMORRHAGE. SEROSAL SURFACE WITH FOCAL ACUTE AND CHRONIC INFLAMMATION, GRANULATION TISSUE FORMATION AND FIBROUS ADHESIONS. SURGICAL MARGINS ARE VIABLE. C. COLOSTOMY, STOMA, TAKEDOWN: ENTEROCUTANEOUS FISTULA/ COLOSTOMY STOMA WITH MILD CHRONIC INFLAMMATION. Electronically Signed Madelyn Beckham M.D. Gross Description A. Received in formalin labeled "scar tissue" is an ellipse of white-maloney skin and underlying fatty subcutaneous tissue measuring 12 x 2 cm, excised to a depth of 2.5 cm. There is a linear scar identified on the surface of the skin which measures 5 cm in length. Runner Worker sections are submitted one cassette. B. Received in formalin labeled "segment of small bowel" is an undesignated segment of bowel with minimal attached adipose tissue and bilateral stapled ends measuring 6 x 4 cm. Serosal surface shows adhesions and a firm hemorrhagic lesion/area of exudate measuring 1.5 x 1.2 x 1 cm; 2 cm from both stapled ends. Focal areas of hemorrhage within the mucosal surface are noted. No gross perforation is identified. Entire hemorrhagic lesion/area of exudate, as well as margins of resection are submitted in 5 cassettes as follows: B1 -B2 undesignated margins of resection, [id number] submitted hemorrhagic lesion/area of exudate. C. Received in formalin labeled "colostomy stoma" is a segment of bowel which measures 13 x 4 cm in length with attached skin (5 x 1 cm) consistent with stoma. Runner Worker sections are submitted in one cassette MLSZ/11/25/2017 san/11/25/2017
[2017-11-26] MEDS: CHLORHEXIDINE GLUCONATE 4% CLEANSER FOR DECOLONIZATION TP SCH (21:35)
[2017-11-27] MEDS: DEXTROSE 5%-LACTATED RINGERS 1,000 ML IV SCH ×3 (05:22→22:30)
[2017-11-27] MEDS: HEPARIN NA (PORCINE) 5,000 UNITS/ML 1ML VIAL SQ SCH ×3 (05:23→22:34)
[2017-11-27] MEDS: INSULIN SLIDING SCALE (NOVOLOG) 1 VIAL SQ SCH ×3 (06:12→17:51)
[2017-11-27 06:47] LABS: HEMATOCRIT 25.5 % (32.4-45.2); HEMOGLOBIN 8.3 GM/dL (10.7-15.3); MCH 31.7 pg (25.7-33.7); MCHC 32.6 g/dl (32.0-36.0); MEAN CELL VOLUME 97.1 fl (80-96); MEAN PLT VOLUME 8.1 fl (7.5-11.1); PLATELET COUNT 199 K/MM3 (134-434); RBC 2.62 M/mm3 (3.60-5.2); RDW 15.3 % (11.6-15.6); WHITE BLOOD COUNT 7.5 K/mm3 (4.0-10.0)
[2017-11-27 07:41] LABS: ANION GAP 6 MMOL/L (8-16); BLOOD UREA NITROGEN 17 mg/dL (7-18); CALCIUM 8.4 mg/dL (8.5-10.1); CHLORIDE 107 mmol/L (98-107); CO2 28 mmol/L (21-32); CREATININE 0.9 mg/dL (0.55-1.3); GLUCOSE,RANDOM 126 mg/dL (74-106); MAGNESIUM 2.2 mg/dL (1.8-2.4); PHOSPHOROUS 2.7 mg/dL (2.5-4.9); SODIUM 140 mmol/L (136-145)
[2017-11-27] MEDS ORDERED: PT OWN MED DRAWER 7, Y5N ONE (08:35)
[2017-11-27] MEDS: MUPIROCIN 2% TOPICAL OINTMENT FOR DECOLONIZATION NS SCH ×2 (11:20→22:32)
[2017-11-27] MEDS: CARVEDILOL 25 MG TABLET (FP) PO SCH ×2 (11:20→22:34)
[2017-11-27] MEDS: PANTOPRAZOLE SODIUM 40 MG VIAL IVPUSH SCH (11:20)
--- NOTE | 2017-11-27 11:32 | PN ---
Teaching Attending Note Name of Resident: Luis Alberto Junior ATTENDING PHYSICIAN STATEMENT I saw and evaluated the patient. I reviewed the resident's note and discussed the case with the resident. I agree with the resident's findings and plan as documented. SUBJECTIVE: Patient seen and examined in the ICU. POD #3. Still no BM or flatus. Mild abdominal pain discomfort, but better. NGT remains in place. No shortness of breath or chest pain. CXR: no gross change in bilateral pulmonary vascular congestion / effusion OBJECTIVE: Intake & Output 11/24/17 11/25/17 11/26/17 11/27/17 23:59 23:59 23:59 23:59 Intake Total 5500 1450 1650 910 Output Total 6405 580 3681 400 Balance 4300 920 175 510 Weight 165 lb 7 oz 172 lb 165 lb 2 oz 169 lb 11.2 oz Last Vital Signs Temp Pulse Resp BP Pulse Ox 98 F 83 15 160/58 L 99 11/27/17 02:00 11/27/17 04:00 11/27/17 04:00 11/27/17 04:00 11/26/17 20:23 Active Medications Acetaminophen (Ofirmev Injection -) 1,000 mg IVPB Q6H PRN PRN Reason: Pain 1-7 Albuterol/Ipratropium (Duoneb -) 1 amp NEB Q4H PRN PRN Reason: SHORTNESS OF BREATH Anastrozole (Arimidex -) 1 mg PO DAILY [facility] Atorvastatin Calcium (Lipitor -) 20 mg PO HS [facility] Bupropion HCl (Wellbutrin -) 75 mg PO BID [facility] Carvedilol (Coreg -) 25 mg PO BID [facility] Last Admin: 11/26/17 21:36 Dose: 25 mg Chlorhexidine Gluconate (Hibiclens For Decolonization -) 1 applic TP HS [facility] Last Admin: 11/26/17 21:35 Dose: 1 applic Cyanocobalamin (Vitamin B12 -) 1,000 mcg PO DAILY [facility] Heparin Sodium (Porcine) (Heparin -) 5,000 unit SQ TID [facility] Last Admin: 11/27/17 05:23 Dose: 5,000 unit Dextrose/Lactated Ringer's (D5-Lr -) 1,000 mls @ 75 mls/hr IV ASDIR [facility] Last Admin: 11/27/17 05:22 Dose: 75 mls/hr Insulin Aspart (Novolog Vial Sliding Scale -) 1 vial SQ TIDAC [facility]; Protocol Last Admin: 11/27/17 06:12 Dose: Not Given Mupirocin (Bactroban Ointment (For Decolonization) -) 1 applic NS BID [facility] Stop: 11/29/17 21:59 Last Admin: 11/26/17 21:05 Dose: 1 applic Ondansetron HCl (Zofran Injection) 4 mg IVPUSH Q6H PRN PRN Reason: NAUSEA AND/OR VOMITING Last Admin: 11/24/17 18:40 Dose: 4 mg Pantoprazole Sodium (Protonix Iv) 40 mg IVPUSH DAILY [facility] Last Admin: 11/26/17 10:35 Dose: 40 mg Valsartan (Diovan -) 80 mg PO DAILY [facility] Gen: Awake and alert, NAD at rest Heart: RRR Lung: Bibasilar rales / rhonchi, no wheeze Abd: soft, nontender, (+) BS, dressing intact Ext: no edema Laboratory Results - last 24 hr 11/26/17 11/26/17 11/26/17 12:34 16:43 22:09 WBC RBC Hgb Hct MCV MCH MCHC RDW Plt Count MPV Sodium Potassium Chloride Carbon Dioxide Anion Gap BUN Creatinine Creat Clearance w eGFR POC Glucometer 89.36431 127.50922 133.96333 Random Glucose Calcium Phosphorus Magnesium 11/27/17 11/27/17 05:30 05:30 WBC 7.5 RBC 2.62 L Hgb 8.3 L Hct 25.5 L MCV 97.1 H MCH 31.7 MCHC 32.6 RDW 15.3 Plt Count 199 MPV 8.1 Sodium 140 Potassium 4.0 Chloride 107 Carbon Dioxide 28 Anion Gap 6 L BUN 17 Creatinine 0.9 Creat Clearance w eGFR > 60 POC Glucometer Random Glucose 126 H Calcium 8.4 L Phosphorus 2.7 Magnesium 2.2 ASSESSMENT AND PLAN: s/p Colostomy Reversal/SB resection Acute on Chronic Systolic Heart Failure Acute Kidney Injury COPD HTN Hyperlipidemia DM h/o CVA - pain control - incentive spirometry - monitor for return of bowel function - IVF: D5LR to avoid worsening hyperchloremia - monitor urine output, creatinine - resume anticoagulation when ok with surgery - activity/massey/disposition per surgery - DVT prophylaxis - Surgical floor monitoring Dr Cormier
--- NOTE | 2017-11-27 11:45 | PN ---
Progress Note (short form) - Note Progress Note: ANESTHESIOLOGY POST-OP CHECK 66F s/p Dwaine reversal and small bowel resection under general anesthesia, POD #3. No acute complaints. Denies N/V. Pain 1/10 [address]able[address] NGT in place and NPO. Vital Signs Temperature 98 F 11/27/17 02:00 Pulse Rate 83 11/27/17 04:00 Respiratory Rate 15 11/27/17 04:00 Blood Pressure 160/58 L 11/27/17 04:00 O2 Sat by Pulse Oximetry (%) 99 11/26/17 20:23 Active Medications Acetaminophen (Ofirmev Injection -) 1,000 mg IVPB Q6H PRN PRN Reason: Pain 1-7 Albuterol/Ipratropium (Duoneb -) 1 amp NEB Q4H PRN PRN Reason: SHORTNESS OF BREATH Anastrozole (Arimidex -) 1 mg PO DAILY [facility] Atorvastatin Calcium (Lipitor -) 20 mg PO HS [facility] Bupropion HCl (Wellbutrin -) 75 mg PO BID [facility] Carvedilol (Coreg -) 25 mg PO BID [facility] Last Admin: 11/26/17 21:36 Dose: 25 mg Chlorhexidine Gluconate (Hibiclens For Decolonization -) 1 applic TP HS [facility] Last Admin: 11/26/17 21:35 Dose: 1 applic Cyanocobalamin (Vitamin B12 -) 1,000 mcg PO DAILY [facility] Heparin Sodium (Porcine) (Heparin -) 5,000 unit SQ TID [facility] Last Admin: 11/27/17 05:23 Dose: 5,000 unit Dextrose/Lactated Ringer's (D5-Lr -) 1,000 mls @ 75 mls/hr IV ASDIR [facility] Last Admin: 11/27/17 05:22 Dose: 75 mls/hr Insulin Aspart (Novolog Vial Sliding Scale -) 1 vial SQ TIDAC [facility]; Protocol Last Admin: 11/27/17 06:12 Dose: Not Given Mupirocin (Bactroban Ointment (For Decolonization) -) 1 applic NS BID [facility] Stop: 11/29/17 21:59 Last Admin: 11/26/17 21:05 Dose: 1 applic Ondansetron HCl (Zofran Injection) 4 mg IVPUSH Q6H PRN PRN Reason: NAUSEA AND/OR VOMITING Last Admin: 11/24/17 18:40 Dose: 4 mg Pantoprazole Sodium (Protonix Iv) 40 mg IVPUSH DAILY [facility] Last Admin: 11/26/17 10:35 Dose: 40 mg Valsartan (Diovan -) 80 mg PO DAILY [facility] Gen: Awake, alert, no apparent distress No apparent anesthesia complications. Pain controlled. Continue SKIING INSTRUCTOR until tolerating PO. Continue management as per primary team.
--- NOTE | 2017-11-27 13:02 | PN ---
Physical Exam: SUBJECTIVE: Patient seen and examined. Pt. was able to walk 120 feet with Physical Therapy. Pt. denies any complaints including CP, SOB, abdominal pain or fever or chills. Attempted to wean Pt. of 1L NC but Pt. desaturated to mid 80s. Put Pt. back to 1L. OBJECTIVE: Vital Signs Period Temp Pulse Resp BP Sys/Holt Pulse Ox Last 24 Hr 98 F-98.4 F 76-83 14-18 126-160/46-62 99 GENERAL: The patient is awake, alert, and fully oriented, in no acute distress. HEAD: Normal with no signs of trauma. EYES: PERRL, extraocular movements intact, sclera anicteric, conjunctiva clear. No ptosis. ENT: Ears normal, nares patent, moist mucous membranes. NECK: Trachea midline, full range of motion, supple. LUNGS: Breath sounds equal, clear to auscultation bilaterally, no wheezes, no crackles, no accessory muscle use. HEART: Regular rate and rhythm, S1, S2 without murmur, rub or gallop. ABDOMEN: Soft, nontender, nondistended, normoactive bowel sounds, no guarding, no rebound, tympanic to percussion, Escobar in place draining. EXTREMITIES: 2+ dorsal pedal pulses, warm, well-perfused, no edema, no calf tenderness NEUROLOGICAL: Normal speech, gait not observed. PSYCH: Normal mood, normal affect. SKIN: Warm, dry, normal turgor Laboratory Results - last 24 hr 11/26/17 11/26/17 11/26/17 12:34 16:43 22:09 WBC RBC Hgb Hct MCV MCH MCHC RDW Plt Count MPV Sodium Potassium Chloride Carbon Dioxide Anion Gap BUN Creatinine Creat Clearance w eGFR POC Glucometer 89.01616 127.78068 133.50008 Random Glucose Calcium Phosphorus Magnesium 11/27/17 11/27/17 11/27/17 05:30 05:30 06:11 WBC 7.5 RBC 2.62 L Hgb 8.3 L Hct 25.5 L MCV 97.1 H MCH 31.7 MCHC 32.6 RDW 15.3 Plt Count 199 MPV 8.1 Sodium 140 Potassium 4.0 Chloride 107 Carbon Dioxide 28 Anion Gap 6 L BUN 17 Creatinine 0.9 Creat Clearance w eGFR > 60 POC Glucometer [phone] Random Glucose 126 H Calcium 8.4 L Phosphorus 2.7 Magnesium 2.2 11/27/17 11:42 WBC RBC Hgb Hct MCV MCH MCHC RDW Plt Count MPV Sodium Potassium Chloride Carbon Dioxide Anion Gap BUN Creatinine Creat Clearance w eGFR POC Glucometer 173.74375 Random Glucose Calcium Phosphorus Magnesium Active Medications Current Medications Acetaminophen (Ofirmev Injection -) 1,000 mg IVPB Q6H PRN PRN Reason: Pain 1-7 Albuterol/Ipratropium (Duoneb -) 1 amp NEB Q4H PRN PRN Reason: SHORTNESS OF BREATH Anastrozole (Arimidex -) 1 mg PO DAILY [facility] Atorvastatin Calcium (Lipitor -) 20 mg PO HS [facility] Bupropion HCl (Wellbutrin -) 75 mg PO BID [facility] Carvedilol (Coreg -) 25 mg PO BID [facility] Last Admin: 11/27/17 11:20 Dose: 25 mg Chlorhexidine Gluconate (Hibiclens For Decolonization -) 1 applic TP HS [facility] Last Admin: 11/26/17 21:35 Dose: 1 applic Cyanocobalamin (Vitamin B12 -) 1,000 mcg PO DAILY [facility] Heparin Sodium (Porcine) (Heparin -) 5,000 unit SQ TID [facility] Last Admin: 11/27/17 05:23 Dose: 5,000 unit Hydromorphone HCl (Dilaudid Title Camera Operator -) 10 mg HAT STEAMER HAT STEAMER [facility]; Protocol Stop: 12/04/17 13:01 Dextrose/Lactated Ringer's (D5-Lr -) 1,000 mls @ 75 mls/hr IV ASDIR [facility] Last Admin: 11/27/17 05:22 Dose: 75 mls/hr Insulin Aspart (Novolog Vial Sliding Scale -) 1 vial SQ TIDAC [facility]; Protocol Last Admin: 11/27/17 11:45 Dose: 2 units Mupirocin (Bactroban Ointment (For Decolonization) -) 1 applic NS BID [facility] Stop: 11/29/17 21:59 Last Admin: 11/27/17 11:20 Dose: 1 applic Ondansetron HCl (Zofran Injection) 4 mg IVPUSH Q6H PRN PRN Reason: NAUSEA AND/OR VOMITING Last Admin: 11/24/17 18:40 Dose: 4 mg Pantoprazole Sodium (Protonix Iv) 40 mg IVPUSH DAILY [facility] Last Admin: 11/27/17 11:20 Dose: 40 mg Valsartan (Diovan -) 80 mg PO DAILY [facility] Last Admin: 11/27/17 11:20 Dose: 80 mg ASSESSMENT/PLAN: A 66 y.o. F w/ PMHx. of DM, HTN, HLD, Breast CA, COPD (not on home O2), Hx. of perforated sigmoid colon s/p sigmoid resection with colostomy, presents to the ICU s/p colostomy reversal POD #3. #Cardiovascular -HTN c/w Coreg 25mg BID- please place NG tube on suction 1 hour after PO administration. hold Valsartan 80mg -CHF Echo appreciated showing nml LV size, mod. decreased LV fxn., mild pericardial effusion, mild bilateral atrial enlargement, mod. MR, mild TR and MS c/w D5-LR administration Hold Lasix at this point- per Dr. Mitchell -HLD hold Lipitor #Gastroenterology -S/p Colostomy reversal NPO except for sips of water with Coreg Protonix 40mg IVPB monitor for return of bowel function (passing gas and passing stool) C/w HAT STEAMER pump for pain management until Pt. able to tolerate PO intake. #Nephrology -SIVA 2/2 dehydration-resolved C/w D5-LR @ 75ml/hr Creatinine is 1.0 at baseline monitor weights: 76.975kgs today monitor urine output with Escobar ensure that there is 200cc urine output every 6 hours, If Pt. does not produce 200cc then bolus 500ml-1L of fluids. Avoid nephrotoxic drugs #Oncology -Breast CA. stable hold Anastrozole #Pulmonary -COPD stable Pt. quit smoking 09/16/17 Duonebs RPN Ventolin PRN #Neurology -Hx. of CVA Hold warfarin until hemodynamically stable and Pt. is outside of the perioperative window. -Depression stable Hold Bupoprion #F/E/N -started on D5-LR @ 75ml/hr -monitor electrolytes and replete as needed -NPO except for small sips of water with medications #DVT Ppx. -Heparin SQ 5k TID will resume warfarin once cleared by Dr. Mitchell
[2017-11-27] MEDS ORDERED: HYDROmorphone *PCA* 10MG/50ML DISP.SYRIN PCA SCH (13:15)
[2017-11-27] MEDS ORDERED: methylPREDNISolone NA SUCC 125 MG/2 ML VIAL ONE (14:17)
--- NOTE | 2017-11-27 15:44 | PN ---
Progress Note, Physician History of Present Illness: POD#3 reversal of colostomy and SB resection, denies chest pain and dyspnea, awaiting flatus. - Current Medication List Current Medications: Active Medications Acetaminophen (Ofirmev Injection -) 1,000 mg IVPB Q6H PRN PRN Reason: Pain 1-7 Albuterol/Ipratropium (Duoneb -) 1 amp NEB Q4H PRN PRN Reason: SHORTNESS OF BREATH Anastrozole (Arimidex -) 1 mg PO DAILY [facility] Last Admin: 11/27/17 14:38 Dose: 1 mg Atorvastatin Calcium (Lipitor -) 20 mg PO HS [facility] Bupropion HCl (Wellbutrin -) 75 mg PO BID [facility] Carvedilol (Coreg -) 25 mg PO BID [facility] Last Admin: 11/27/17 11:20 Dose: 25 mg Chlorhexidine Gluconate (Hibiclens For Decolonization -) 1 applic TP HS [facility] Last Admin: 11/26/17 21:35 Dose: 1 applic Cyanocobalamin (Vitamin B12 -) 1,000 mcg PO DAILY [facility] Heparin Sodium (Porcine) (Heparin -) 5,000 unit SQ TID [facility] Last Admin: 11/27/17 14:37 Dose: 5,000 unit Hydromorphone HCl (Dilaudid Bulk Tank Car Unloader -) 10 mg LEVEL VIAL INSIDE GRINDER LEVEL VIAL INSIDE GRINDER [facility]; Protocol Stop: 12/04/17 13:01 Last Admin: 11/27/17 14:37 Dose: 10 mg Dextrose/Lactated Ringer's (D5-Lr -) 1,000 mls @ 75 mls/hr IV ASDIR [facility] Last Admin: 11/27/17 15:04 Dose: 75 mls/hr Insulin Aspart (Novolog Vial Sliding Scale -) 1 vial SQ TIDAC [facility]; Protocol Last Admin: 11/27/17 11:45 Dose: 2 units Mupirocin (Bactroban Ointment (For Decolonization) -) 1 applic NS BID [facility] Stop: 11/29/17 21:59 Last Admin: 11/27/17 11:20 Dose: 1 applic Ondansetron HCl (Zofran Injection) 4 mg IVPUSH Q6H PRN PRN Reason: NAUSEA AND/OR VOMITING Last Admin: 11/24/17 18:40 Dose: 4 mg Pantoprazole Sodium (Protonix Iv) 40 mg IVPUSH DAILY [facility] Last Admin: 11/27/17 11:20 Dose: 40 mg Valsartan (Diovan -) 80 mg PO DAILY [facility] Last Admin: 11/27/17 11:20 Dose: 80 mg - Objective Vital Signs: Vital Signs Temperature 97.1 F L 11/27/17 12:00 Pulse Rate 98 H 11/27/17 14:06 Respiratory Rate 22 H 11/27/17 14:06 Blood Pressure 147/77 11/27/17 14:06 O2 Sat by Pulse Oximetry (%) 92 L 11/27/17 09:00 Constitutional: Yes: No Distress, Calm Neck: Yes: Supple Cardiovascular: Yes: Regular Rate and Rhythm Respiratory: Yes: Regular, Diminished, On Nasal O2 Gastrointestinal: Yes: Soft, Hypoactive Bowel Sounds Edema: No Labs: CBC, BMP 11/27/17 05:30 11/27/17 05:30 INR, PTT INR 1.14 (0.83-1.09) H 11/23/17 11:00 - ....Imaging Chest X-ray: Image Reviewed Problem List - Problems (1) Acute exacerbation of congestive heart failure Code(s): I50.9 - HEART FAILURE, UNSPECIFIED (2) Anemia Code(s): D64.9 - ANEMIA, UNSPECIFIED Qualifiers: Anemia type: unspecified type Qualified Code(s): D64.9 - Anemia, unspecified (3) Anticoagulant long-term use Code(s): Z79.01 - RETIREMENT (CURRENT) USE OF 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 (4) COPD (chronic obstructive pulmonary disease) Code(s): J44.9 - CHRONIC OBSTRUCTIVE PULMONARY DISEASE, UNSPECIFIED Qualifiers: COPD type: unspecified COPD Qualified Code(s): J44.9 - Chronic obstructive pulmonary disease, unspecified (5) Diabetes mellitus type 2, noninsulin dependent Code(s): E11.9 - TYPE 2 DIABETES MELLITUS WITHOUT COMPLICATIONS (6) H/O: CVA (cerebrovascular accident) Code(s): Z86.73 - PRSNL HX OF TIA (TIA), AND CEREB INFRC W/O RESID DEFICITS (7) Hypertension Code(s): I10 - ESSENTIAL (PRIMARY) HYPERTENSION Qualifiers: Hypertension type: essential hypertension Qualified Code(s): I10 - Essential (primary) hypertension (8) Left renal artery stenosis Code(s): I70.1 - ATHEROSCLEROSIS OF RENAL ARTERY (9) Subtherapeutic anticoagulation Code(s): Z51.81 - ENCOUNTER FOR THERAPEUTIC DRUG LEVEL MONITORING; Z79.01 - CASING BLOWER (CURRENT) USE OF 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 (10) Acute kidney injury Code(s): N17.9 - ACUTE KIDNEY FAILURE, UNSPECIFIED Assessment/Plan 12/24/2016 Echo: Normal LV size with moderate decreased LV fxn, mild pericardial effusion, mild ASHLEY, mod MR, mild VA, TR 1. POD #3 colostomy reversal/SB resection 2. Acute on chronic LV systolic failure with pleural effusions 3. H/o perforated sigmoid colon (pathology c/w ischemic colitis) post resection (Dwaine's procedure) 4. History of CVA with left MCA thrombus now with subtherapeutic INR 5. COPD 6. HTN/HCVD 7. Hyperlipidemia 8. Anemia 9. 50-60% distal left renal artery stenosis 10. Type 2 DM 11. SIVA resolved 12. Type 2 DM PLAN: 1. Judicious hydration with monitor renal function and electrolytes 2. Continue carvedilol 25 bid, Lipitor 20 qhs, and Diovan 80 qd 3. Resume Coumadin post-op once hemostasis achieved, monitor Hgb and transfuse for Hgb<8.0 4. DVT and GI prophylaxis, OOB to chair, analgesia as needed, IS, monitor for return of bowel function
--- NOTE | 2017-11-27 18:49 | PN ---
Progress Note (short form) - Note Progress Note: Current Medications Acetaminophen (Ofirmev Injection -) 1,000 mg IVPB Q6H PRN PRN Reason: Pain 1-7 Albuterol/Ipratropium (Duoneb -) 1 amp NEB Q4H PRN PRN Reason: SHORTNESS OF BREATH Anastrozole (Arimidex -) 1 mg PO DAILY [facility] Last Admin: 11/27/17 14:38 Dose: 1 mg Atorvastatin Calcium (Lipitor -) 20 mg PO HS [facility] Bupropion HCl (Wellbutrin -) 75 mg PO BID [facility] Carvedilol (Coreg -) 25 mg PO BID [facility] Last Admin: 11/27/17 11:20 Dose: 25 mg Chlorhexidine Gluconate (Hibiclens For Decolonization -) 1 applic TP HS [facility] Last Admin: 11/26/17 21:35 Dose: 1 applic Cyanocobalamin (Vitamin B12 -) 1,000 mcg PO DAILY [facility] Heparin Sodium (Porcine) (Heparin -) 5,000 unit SQ TID [facility] Last Admin: 11/27/17 14:37 Dose: 5,000 unit Hydromorphone HCl (Dilaudid Lottery Manager -) 10 mg TRANSFER TABLE OPERATOR TRANSFER TABLE OPERATOR [facility]; Protocol Stop: 12/04/17 13:01 Last Admin: 11/27/17 14:37 Dose: 10 mg Dextrose/Lactated Ringer's (D5-Lr -) 1,000 mls @ 75 mls/hr IV ASDIR [facility] Last Admin: 11/27/17 15:04 Dose: 75 mls/hr Insulin Aspart (Novolog Vial Sliding Scale -) 1 vial SQ TIDAC [facility]; Protocol Last Admin: 11/27/17 17:51 Dose: 2 units Mupirocin (Bactroban Ointment (For Decolonization) -) 1 applic NS BID [facility] Stop: 11/29/17 21:59 Last Admin: 11/27/17 11:20 Dose: 1 applic Ondansetron HCl (Zofran Injection) 4 mg IVPUSH Q6H PRN PRN Reason: NAUSEA AND/OR VOMITING Last Admin: 11/24/17 18:40 Dose: 4 mg Pantoprazole Sodium (Protonix Iv) 40 mg IVPUSH DAILY [facility] Last Admin: 11/27/17 11:20 Dose: 40 mg Valsartan (Diovan -) 80 mg PO DAILY [facility] Last Admin: 11/27/17 11:20 Dose: 80 mg Laboratory Results - last 24 hr 11/26/17 11/27/17 11/27/17 22:09 05:30 05:30 WBC 7.5 RBC 2.62 L Hgb 8.3 L Hct 25.5 L MCV 97.1 H MCH 31.7 MCHC 32.6 RDW 15.3 Plt Count 199 MPV 8.1 Sodium 140 Potassium 4.0 Chloride 107 Carbon Dioxide 28 Anion Gap 6 L BUN 17 Creatinine 0.9 Creat Clearance w eGFR > 60 POC Glucometer 133.93343 Random Glucose 126 H Calcium 8.4 L Phosphorus 2.7 Magnesium 2.2 11/27/17 11/27/17 11/27/17 06:11 11:42 17:50 WBC RBC Hgb Hct MCV MCH MCHC RDW Plt Count MPV Sodium Potassium Chloride Carbon Dioxide Anion Gap BUN Creatinine Creat Clearance w eGFR POC Glucometer 157.94918 173.29355 165.88842 Random Glucose Calcium Phosphorus Magnesium Vital Signs Temp 97.1 F L 11/27/17 12:00 Pulse 98 H 11/27/17 14:06 Resp 22 H 11/27/17 14:06 BP 147/77 11/27/17 14:06 Pulse Ox 92 L 11/27/17 09:00 Intake & Output 11/26/17 11/27/17 11/27/17 23:59 11:59 23:59 Intake Total 502 570 7958 Output Total 900 400 400 Balance -200 510 875 Weight 169 lb 11.2 oz Intake: IV 013 172 5260 D5-Lr - 1,000 ml @ 75 mls 900 1275 /hr IV ASDIR [facility] Rx#: [id number] Normal Saline - 1,000 ml 700 @ 75 mls/hr IV ASDIR [facility] Rx#:[id number] Oral 10 Output: Gastric Drainage 200 100 Urine 700 300 400 Escobar 700 300 400 Other: Voiding Method Indwelling Catheter Indwelling Catheter Bowel Movement No No CC: none ````````````````````` skin-some pallor heart--RR abd--BS quiet; non distended; multiple dressings present neuro--alert, coherent in NAD `````````````````````````````` Summ > s/p reversal of colostomy--as described in surgical procedure note; post Op day #3; clinically stable so far; NPO until develops flatus; mgment as per Dr Mitchell > ASHD--BP okay; CXR W effusion; denies SOB, will check daily CXR > anemia--H/h above 8; will check in AM > COPD--stable > DM--glucose OK > Hx TIA/CVA--had been on Warfarin; will resume a/c as soon as she is surgically cleared ~~~~~~~~~~~~~~~~ Dr Caputo Problem List - Problems (1) Preprocedural examination Code(s): Z01.818 - ENCOUNTER FOR OTHER PREPROCEDURAL EXAMINATION (2) Anemia Code(s): D64.9 - ANEMIA, UNSPECIFIED Qualifiers: Anemia type: unspecified type Qualified Code(s): D64.9 - Anemia, unspecified (3) COPD without exacerbation Code(s): J44.9 - CHRONIC OBSTRUCTIVE PULMONARY DISEASE, UNSPECIFIED (4) Cancer of left breast Code(s): C50.912 - MALIGNANT NEOPLASM OF UNSPECIFIED SITE OF LEFT FEMALE BREAST Qualifiers: Breast location: upper outer quadrant of breast Estrogen receptor status: positive Patient sex: female Qualified Code(s): C50.412 - Malignant neoplasm of upper-outer quadrant of left female breast (5) Diabetes mellitus type 2, noninsulin dependent Code(s): E11.9 - TYPE 2 DIABETES MELLITUS WITHOUT COMPLICATIONS (6) H/O: CVA (cerebrovascular accident) Code(s): Z86.73 - PRSNL HX OF TIA (TIA), AND CEREB INFRC W/O RESID DEFICITS (7) Anticoagulant long-term use Code(s): Z79.01 - [facility] (CURRENT) USE OF 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 (8) Colostomy in place Code(s): Z93.3 - COLOSTOMY STATUS
[2017-11-27] MEDS ORDERED: ONDANSETRON 4 MG/2 ML VIAL IVPUSH PRN (20:02)
[2017-11-27] MEDS ORDERED: ACETAMINOPHEN 1000 MG/100 ML VIAL (NON FORMULARY) IVPB PRN (20:02)
--- NOTE | 2017-11-27 21:19 | PN ---
Progress Note, Physician History of Present Illness: Pt had colostomy and enterocutaneous fistula, now s/p takedown of both with SB resection and scar revision, in ICU postoperatively for close monitoring of electrolyte, renal and fluid status. Acute on chronic CHF diuresed preop, with chronic pleural effusions, satting well (96+% on NC O2) and using IS with good effort. Renal function improved/back to baseline. UOP 1000ml/24 hrs. Weight 169 today. Pt reports feeling minimal pain, using SENIOR PUBLICATIONS SPECIALIST sparingly, was OOB to chair for 3 hours today. No acute events overnight. PMD and Cardiology also following. Sugars ok. Pt is hungry. Seen and examined in room in ICU in bed, resting comfortably but wakes easily. NGT was clamped earlier today - no nausea , no flatus/BM yet either. Able to take meds with sips of water, some crushed. - Current Medication List Current Medications: Active Medications Acetaminophen (Ofirmev Injection -) 1,000 mg IVPB Q6H PRN PRN Reason: Pain 1-3 Albuterol/Ipratropium (Duoneb -) 1 amp NEB Q4H PRN PRN Reason: SHORTNESS OF BREATH Anastrozole (Arimidex -) 1 mg PO DAILY REPLACED BY [facility] Carvedilol (Coreg -) 25 mg PO BID REPLACED BY [facility] Chlorhexidine Gluconate (Hibiclens For Decolonization -) 1 applic TP HS REPLACED BY [facility] Heparin Sodium (Porcine) (Heparin -) 5,000 unit SQ TID REPLACED BY [facility] Hydromorphone HCl (Dilaudid Sweet Pickled Fruit Maker -) 10 mg SENIOR PUBLICATIONS SPECIALIST SENIOR PUBLICATIONS SPECIALIST REPLACED BY [facility]; Protocol Stop: 12/04/17 13:01 Last Admin: 11/27/17 14:37 Dose: 10 mg Dextrose/Lactated Ringer's (D5-Lr -) 1,000 mls @ 75 mls/hr IV ASDIR REPLACED BY [facility] Insulin Aspart (Novolog Vial Sliding Scale -) 1 vial SQ TIDAC REPLACED BY [facility]; Protocol Mupirocin (Bactroban Ointment (For Decolonization) -) 1 applic NS BID REPLACED BY [facility] Stop: 11/29/17 21:59 Ondansetron HCl (Zofran Injection) 4 mg IVPUSH Q6H PRN PRN Reason: NAUSEA AND/OR VOMITING Pantoprazole Sodium (Protonix Iv) 40 mg IVPUSH DAILY REPLACED BY [facility] Valsartan (Diovan -) 80 mg PO DAILY [facility] - Objective Vital Signs: Vital Signs Temperature 97.1 F L 11/27/17 12:00 Pulse Rate 91 H 11/27/17 18:00 Respiratory Rate 22 H 11/27/17 18:00 Blood Pressure 169/67 11/27/17 18:00 O2 Sat by Pulse Oximetry (%) 92 L 11/27/17 19:44 Vital Signs Period Temp Pulse Resp BP Sys/Ohlt Pulse Ox Last 24 Hr 97.1 F-98.3 F 76-98 14-22 137-169/46-77 92-92 Intake & Output 11/27/17 11/27/17 11/27/17 07:59 15:59 23:59 Intake Total 910 975 300 Output Total 400 300 100 Balance 510 675 200 Weight 169 lb 11.2 oz Intake: IV 900 975 300 D5-Lr - 1,000 ml @ 75 mls 900 975 300 /hr IV ASDIR [facility] Rx#: [id number] Oral 10 Output: Gastric Drainage 100 Urine 300 300 100 Escobar 300 300 100 Other: Voiding Method Indwelling Catheter Indwelling Catheter Bowel Movement No Constitutional: Yes: No Distress, Calm, Obese Eyes: Yes: EOM Intact, Other (rt eye cloudy) HENT: Yes: Atraumatic, Normocephalic, Other (NG clamped - removed at bedside) Cardiovascular: Yes: Tachycardia (mild). No: Pulse Irregular Respiratory: Yes: Regular, CTA Bilaterally, Diminished (rt base), On Nasal O2, Wheezes (faint expiratory on left) Gastrointestinal: Yes: Normal Bowel Sounds, Soft, Abdomen, Obese, Tenderness ( incisional and mild RUQ), Other (dressings on left side intact) ...Rectal Exam: Yes: Deferred Genitourinary: Yes: Escobar Present. No: Hematuria Extremities: No: Cool, Cyanosis Integumentary: Yes: Incision (midline w/mini). No: Jaundice, Rash Wound/Incision: Yes: Clean/Dry, Well Approximated, Mini Intact (midline), Dressing Dry and Intact (left side x 2 - with dried strikethrough, light serosang). No: Dressing Removed (will change in am) Neurological: Yes: Alert, Oriented Labs: CBC, BMP 11/27/17 05:30 11/27/17 05:30 Mg, Phos normal - ....Imaging Chest X-ray: Image Reviewed (image noted - similar to prior, congestive changes , effusion, no worse than previous) Problem List - Problems (1) Colostomy in place Assessment/Plan: POD3 s/p colostomy reversal, takedown of entercutaneous fistula with small bowel resection, scar revision ICU postop for accurate I/O's, fluid management urine output improved NGT removed NPO except meds with sips until bowel function resumes GI/DVT prophylaxis - SCDs, heparin SQ q8H, PPI daily pain controlled - would encourage IV tylenol prn over SENIOR PUBLICATIONS SPECIALIST/narcotic at this point will change dressings in am will need VNS for daily packing changes on discharge home had [facility] in past will be able to help ok for transfer to floor when bed available strict I/O's This patient is critically ill. Time spent reviewing chart, examining patient, talking with providers and/or family and documentation is 35 minutes. 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 Assessment/Plan: see above dressing at old drain/fistula site to be changed in am will need VNS for daily packing changes on discharge home, as noted above Code(s): K63.2 - FISTULA OF INTESTINE (3) Anticoagulant long-term use Assessment/Plan: continue DVT prophylaxis while off of therapeutic anticoagulation may resume coumadin tomorrow night Code(s): Z79.01 - PENITENTIARY (CURRENT) USE OF 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 (4) COPD without exacerbation Assessment/Plan: cardiology and medicine following pt with known pleural effusions, R>L NC O2 to keep sats >=93% (baseline on RA is mid-90s) - use prn encouraged IS use and sitting up in chair/OOB as tolerated Code(s): J44.9 - CHRONIC OBSTRUCTIVE PULMONARY DISEASE, UNSPECIFIED (5) Diabetes mellitus type 2, noninsulin dependent Assessment/Plan: FS with SSI coverage until back on diet postop Code(s): E11.9 - TYPE 2 DIABETES MELLITUS WITHOUT COMPLICATIONS (6) H/O: CVA (cerebrovascular accident) Assessment/Plan: off coumadin perioperatively, may resume tomw night Code(s): Z86.73 - PRSNL HX OF TIA (TIA), AND CEREB INFRC W/O RESID DEFICITS (7) Hypertension Assessment/Plan: continue carvedilol with sips may add diovan per cardiology - if weight up again in am, may give PO lasix tomorrow cardio following Code(s): I10 - ESSENTIAL (PRIMARY) HYPERTENSION Qualifiers: Hypertension type: essential hypertension Qualified Code(s): I10 - Essential (primary) hypertension (8) Cancer of left breast Assessment/Plan: resume arimidex Code(s): C50.912 - MALIGNANT NEOPLASM OF UNSPECIFIED SITE OF LEFT FEMALE BREAST Qualifiers: Breast location: upper outer quadrant of breast Estrogen receptor status: positive Patient sex: female Qualified Code(s): C50.412 - Malignant neoplasm of upper-outer quadrant of left female breast (9) Depression Assessment/Plan: resume wellbutrin Code(s): F32.9 - MAJOR DEPRESSIVE DISORDER, SINGLE EPISODE, UNSPECIFIED Qualifiers: Depression Type: reactive depression Qualified Code(s): F32.9 - Major depressive disorder, single episode, unspecified (10) Acute on chronic systolic congestive heart failure Assessment/Plan: cardiology notes appreciated judicious but adequate hydration, monitor lytes, UOP, pulmonary status all acceptable at this time pleural effusions stable on CXR Code(s): I50.23 - ACUTE ON CHRONIC SYSTOLIC (CONGESTIVE) HEART FAILURE (11) Bilateral pleural effusion Assessment/Plan: see above Code(s): J90 - PLEURAL EFFUSION, NOT ELSEWHERE CLASSIFIED
[2017-11-27] MEDS ORDERED: CHLORHEXIDINE GLUCONATE 4% CLEANSER FOR DECOLONIZATION TP SCH (22:00)
[2017-11-27] MEDS: ALBUTEROL SO4 2.5/IPRATROPIUM 0.5 INH SOL 3 ML VIAL.NEB. NEB PRN (22:44)
[2017-11-28 05:53] LABS: HEMATOCRIT 24.5 % (32.4-45.2); MCH 31.6 pg (25.7-33.7); MCHC 32.4 g/dl (32.0-36.0); MEAN CELL VOLUME 97.6 fl (80-96); MEAN PLT VOLUME 8.6 fl (7.5-11.1); PLATELET COUNT 206 K/MM3 (134-434); RBC 2.51 M/mm3 (3.60-5.2); RDW 15.1 % (11.6-15.6); WHITE BLOOD COUNT 7.2 K/mm3 (4.0-10.0)
[2017-11-28] MEDS: ALBUTEROL SO4 2.5/IPRATROPIUM 0.5 INH SOL 3 ML VIAL.NEB. NEB PRN ×3 (06:00→21:05)
[2017-11-28 06:33] LABS: ANION GAP 5 MMOL/L (8-16); BLOOD UREA NITROGEN 14 mg/dL (7-18); CALCIUM 8.7 mg/dL (8.5-10.1); CHLORIDE 106 mmol/L (98-107); CO2 30 mmol/L (21-32); CREATININE 0.9 mg/dL (0.55-1.3); GLUCOSE,RANDOM 150 mg/dL (74-106); MAGNESIUM 1.9 mg/dL (1.8-2.4); PHOSPHOROUS 2.9 mg/dL (2.5-4.9); POTASSIUM 4.2 mmol/L (3.5-5.1); SODIUM 141 mmol/L (136-145)
[2017-11-28] MEDS: INSULIN SLIDING SCALE (NOVOLOG) 1 VIAL SQ SCH ×3 (06:38→16:24)
[2017-11-28] MEDS: HEPARIN NA (PORCINE) 5,000 UNITS/ML 1ML VIAL SQ SCH ×3 (06:40→22:16)
[2017-11-28] MEDS ORDERED: PT OWN MED DRAWER 7, Y5N ONE (08:55)
--- NOTE | 2017-11-28 09:22 | PN ---
Progress Note (short form) - Note Progress Note: P 93,BP 163/73 and Spo2 99 on O2 2L.Patient stable and has a pain score of 1-2/ 10.So will DC PLANT CYTOLOGIST and put patient PRN pain medication.No any anesthesia related problem.Patient Dc from the anesthesia care.
[2017-11-28] MEDS ORDERED: HYDROmorphone HCL CARPU-JECT 2 MG/1 ML DISP.SYRIN IVPB PRN (09:23)
[2017-11-28] MEDS ORDERED: oxyCODONE HCL 5 MG TABLET PO PRN (09:25)
[2017-11-28] MEDS: ANASTROZOLE 1 MG TABLET PO SCH (09:37)
[2017-11-28] MEDS: CARVEDILOL 25 MG TABLET (FP) PO SCH ×2 (09:38→22:15)
[2017-11-28] MEDS: VALSARTAN 80 MG TABLET (UD) PO SCH (09:38)
[2017-11-28] MEDS: PANTOPRAZOLE SODIUM 40 MG VIAL IVPUSH SCH (09:38)
--- NOTE | 2017-11-28 10:14 | PN ---
Teaching Attending Note Name of Resident: Eunice Del Toro ATTENDING PHYSICIAN STATEMENT I saw and evaluated the patient. I reviewed the resident's note and discussed the case with the resident. I agree with the resident's findings and plan as documented. SUBJECTIVE: Pt seen and examined in the ICU. Pain controlled. 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 Some dyspnea if lying flat. CXR with increasing congestion. No flatus or BM. OBJECTIVE: Vital Signs Period Temp Pulse Resp BP Sys/Holt Pulse Ox Last 24 Hr 97.1 F-98.3 F 76-100 14-29 142-169/54-88 92-97 Intake & Output 11/25/17 11/26/17 11/27/17 11/28/17 23:59 23:59 23:59 23:59 Intake Total 1450 1650 2185 900 Output Total 530 1475 1000 300 Balance 284 221 9827 600 Weight 78.018 kg 74.899 kg 76.975 kg 76.345 kg Gen: mildly tachypneic at rest Heart: RRR Lung: scattered rales Abd: soft, nontender, incision clean, +bowel sounds Ext: no edema CBC, BMP 11/28/17 05:30 11/28/17 05:30 Active Medications Acetaminophen (Ofirmev Injection -) 1,000 mg IVPB Q6H PRN PRN Reason: Pain 1-3 Albuterol/Ipratropium (Duoneb -) 1 amp NEB Q4H PRN PRN Reason: SHORTNESS OF BREATH Last Admin: 11/28/17 06:00 Dose: 1 amp Anastrozole (Arimidex -) 1 mg PO DAILY [facility] Last Admin: 11/28/17 09:37 Dose: 1 mg Carvedilol (Coreg -) 25 mg PO BID [facility] Last Admin: 11/28/17 09:38 Dose: 25 mg Chlorhexidine Gluconate (Hibiclens For Decolonization -) 1 applic TP HS [facility] Last Admin: 11/27/17 22:31 Dose: 1 applic Heparin Sodium (Porcine) (Heparin -) 5,000 unit SQ TID [facility] Last Admin: 11/28/17 06:40 Dose: 5,000 unit Hydromorphone HCl (Dilaudid Injection -) 2 mg IVPB Q4H PRN PRN Reason: PAIN LEVEL 7 - 10 Dextrose/Lactated Ringer's (D5-Lr -) 1,000 mls @ 75 mls/hr IV ASDIR [facility] Last Admin: 11/27/17 22:30 Dose: 75 mls/hr Insulin Aspart (Novolog Vial Sliding Scale -) 1 vial SQ TIDAC [facility]; Protocol Last Admin: 11/28/17 06:38 Dose: 2 units Mupirocin (Bactroban Ointment (For Decolonization) -) 1 applic NS BID [facility] Stop: 11/29/17 21:59 Last Admin: 11/27/17 22:32 Dose: 1 applic Ondansetron HCl (Zofran Injection) 4 mg IVPUSH Q6H PRN PRN Reason: NAUSEA AND/OR VOMITING Oxycodone HCl (Roxicodone -) 10 mg PO Q4H PRN PRN Reason: PAIN LEVEL 4 - 6 Pantoprazole Sodium (Protonix Iv) 40 mg IVPUSH DAILY [facility] Last Admin: 11/28/17 09:38 Dose: 40 mg Valsartan (Diovan -) 80 mg PO DAILY [facility] Last Admin: 11/28/17 09:38 Dose: 80 mg ASSESSMENT AND PLAN: s/p Colostomy Reversal/SB resection Acute on Chronic Systolic Heart Failure Acute Kidney Injury COPD HTN Hyperlipidemia DM h/o CVA - pain control - incentive spirometry - monitor for return of bowel function - would give dose of lasix today if ok with surgery - monitor urine output, creatinine - resume anticoagulation when ok with surgery - OOB to chair - DVT prophylaxis
--- NOTE | 2017-11-28 10:24 | PN ---
Physical Exam: SUBJECTIVE: - Pain well controlled - No BM or flatus yet, feels "rumbling" - Increased difficulty breathing today OBJECTIVE: Vital Signs Period Temp Pulse Resp BP Sys/Holt Pulse Ox Last 24 Hr 97.1 F-98.3 F 76-100 14-29 142-169/54-88 92-97 General: Comfortable, no acute distress HEENT: PERRL, EOMI, MMM, voice normal Cards: RRR, no murmur appreciated Pulm: Requiring supplemental O2, some crackles b/l Abd: Soft, appropriately tender. Incision c/d/i, mini in place, open to air. Gauze with serosanguinous drainage at fistula site Ext: Atraumatic. No LE edema. ROM intact. Strength 5/5 and equal bilaterally Vasc: Extremities WWP. Skin: Normal color, no rashes or lesions Neuro: A&Ox3, CN grossly intact, normal speech, motor/sensory grossly intact and symmetric Psych: Mood appropriate to situation Laboratory Results - last 24 hr 11/27/17 11/27/17 11/27/17 06:11 11:42 17:50 WBC RBC Hgb Hct MCV MCH MCHC RDW Plt Count MPV Sodium Potassium Chloride Carbon Dioxide Anion Gap BUN Creatinine Creat Clearance w eGFR POC Glucometer 157.90632 173.90550 165.63917 Random Glucose Calcium Phosphorus Magnesium 11/27/17 11/28/17 11/28/17 22:40 05:30 05:30 WBC 7.2 RBC 2.51 L Hgb 8.0 L Hct 24.5 L MCV 97.6 H MCH 31.6 MCHC 32.4 RDW 15.1 Plt Count 206 MPV 8.6 Sodium 141 Potassium 4.2 Chloride 106 Carbon Dioxide 30 Anion Gap 5 L BUN 14 Creatinine 0.9 Creat Clearance w eGFR > 60 POC Glucometer 157.18286 Random Glucose 150 H Calcium 8.7 Phosphorus 2.9 Magnesium 1.9 Active Medications Generic Name Dose Route Start Last Admin Trade Name Freq PRN Reason Stop Dose Admin Acetaminophen 1,000 mg 11/27/17 20:02 Ofirmev Injection - IVPB Q6H PRN Pain 1-3 Albuterol/Ipratropium 1 amp 11/27/17 20:02 11/28/17 06:00 Duoneb - NEB 1 amp Q4H PRN Administration SHORTNESS OF BREATH Anastrozole 1 mg 11/28/17 10:00 11/28/17 09:37 Arimidex - PO 1 mg DAILY [facility] Administration Carvedilol 25 mg 11/27/17 22:00 11/28/17 09:38 Coreg - PO 25 mg BID [facility] Administration Chlorhexidine Gluconate 1 applic 11/27/17 22:00 11/27/17 22:31 Hibiclens For Decolonization - TP 1 applic HS [facility] Administration Heparin Sodium (Porcine) 5,000 unit 11/27/17 22:00 11/28/17 06:40 Heparin - SQ 5,000 unit TID [facility] Administration Hydromorphone HCl 2 mg 11/28/17 09:23 Dilaudid Injection - IVPB Q4H PRN PAIN LEVEL 7 - 10 Dextrose/Lactated Ringer's 1,000 mls @ 75 mls/hr 11/27/17 20:02 11/27/17 22: 30 D5-Lr - IV 75 mls/hr ASDIR [facility] Administration Insulin Aspart 1 vial 11/28/17 07:00 11/28/17 06:38 Novolog Vial Sliding Scale - SQ 2 units TIDAC [facility] Administration Protocol Mupirocin 1 applic 11/27/17 22:00 11/27/17 22:32 Bactroban Ointment (For Decolonization) - NS 11/29/17 21:59 1 applic BID [facility] Administration Ondansetron HCl 4 mg 11/27/17 20:02 Zofran Injection IVPUSH Q6H PRN NAUSEA AND/OR VOMITING Oxycodone HCl 10 mg 11/28/17 09:25 Roxicodone - PO Q4H PRN PAIN LEVEL 4 - 6 Pantoprazole Sodium 40 mg 11/28/17 10:00 11/28/17 09:38 Protonix Iv IVPUSH 40 mg DAILY [facility] Administration Valsartan 80 mg 11/28/17 10:00 11/28/17 09:38 Diovan - PO 80 mg DAILY [facility] Administration ASSESSMENT/PLAN: Marie Mejía is a 66yo woman with a PMH of systolic CHF, HTN, HLD, COPD, DM, chronic b/l pleural effusions, h/o TIA, h/o breast CA, depression now POD #4 s/ p colostomy reversal, takedown of enterocutaneous fistula, SBR and scar revision. She has recovered well postoperatively and is now stable for transfer to the floor. Neuro: - h/o TIA - Holding warfarin, plan to restart tonight - Adequate pain control with dilaudid NURSERY MANAGER overnight, minimal use. D/C today and transfer to oral pain meds CV: - h/o CHF, HTN, HLD - Cardiology following - Continue carvedilol, valsartan, atorvastatin Pulm: - Increased SOB today, worsening congestion on CXR this morning - O2 by NC - Duonebs Q4 - Plan to give lasix and d/c IVF if OK with Dr Mitchell - IS 10x per hour Heme: - Hgb stable around 8 - Restart warfarin - Monitor daily CBC GI: - s/p ostomy reversal, still no BM or flatus - Sips with meds only at this time. Defer to surgery for advancing diet - Pantoprazole 40 IV daily - PRN zofran Renal: - No issues ID: - No issues Endo: - h/o DM. - ISS while NPO Psych: - h/o depression - Holding home meds Musc: - OOB as tolerated Skin/Wounds: - Dressing changes daily per surgery - h/o breast CA, continue home anastozole PPx: - SQH - Pantoprazole FEN: - Sips w/ meds, advance per surgery - D5 LR @ 75/hr - d/c if OK with surgery - Replete lytes PRN Dispo: - Transferred to floor yesterday, waiting for bed. Seen and discussed with Dr Mas. Eunice Del Toro PGY1 Visit type - Emergency Visit Emergency Visit: No - New Patient This patient is new to me today: Yes Date on this admission: 11/28/17 - Critical Care Critical Care patient: No Total Critical Care Time (in minutes): 45 Critical Care Statement: The care of this patient involved high complexity decision making to prevent further life threatening deterioration of the patient 's condition and/or to evaluate & treat vital organ system(s) failure or risk of failure.
[2017-11-28] MEDS: MUPIROCIN 2% TOPICAL OINTMENT FOR DECOLONIZATION NS SCH (11:05)
--- NOTE | 2017-11-28 11:45 | PN ---
Progress Note, Physician Chief Complaint: Events noted Seen in ICU this morning History of Present Illness: Patient was seen and examined in ICU this morning. Awake and alert. Chart was reviewed Denies chest pain, SOB or palpitations - Current Medication List Current Medications: Active Medications Acetaminophen (Ofirmev Injection -) 1,000 mg IVPB Q6H PRN PRN Reason: Pain 1-3 Albuterol/Ipratropium (Duoneb -) 1 amp NEB Q4H PRN PRN Reason: SHORTNESS OF BREATH Last Admin: 11/28/17 06:00 Dose: 1 amp Anastrozole (Arimidex -) 1 mg PO DAILY [facility] Last Admin: 11/28/17 09:37 Dose: 1 mg Carvedilol (Coreg -) 25 mg PO BID [facility] Last Admin: 11/28/17 09:38 Dose: 25 mg Chlorhexidine Gluconate (Hibiclens For Decolonization -) 1 applic TP HS [facility] Last Admin: 11/27/17 22:31 Dose: 1 applic Heparin Sodium (Porcine) (Heparin -) 5,000 unit SQ TID [facility] Last Admin: 11/28/17 06:40 Dose: 5,000 unit Hydromorphone HCl (Dilaudid Injection -) 2 mg IVPB Q4H PRN PRN Reason: PAIN LEVEL 7 - 10 Dextrose/Lactated Ringer's (D5-Lr -) 1,000 mls @ 75 mls/hr IV ASDIR [facility] Last Admin: 11/27/17 22:30 Dose: 75 mls/hr Insulin Aspart (Novolog Vial Sliding Scale -) 1 vial SQ TIDAC [facility]; Protocol Last Admin: 11/28/17 11:28 Dose: 2 units Mupirocin (Bactroban Ointment (For Decolonization) -) 1 applic NS BID [facility] Stop: 11/29/17 21:59 Last Admin: 11/27/17 22:32 Dose: 1 applic Ondansetron HCl (Zofran Injection) 4 mg IVPUSH Q6H PRN PRN Reason: NAUSEA AND/OR VOMITING Oxycodone HCl (Roxicodone -) 10 mg PO Q4H PRN PRN Reason: PAIN LEVEL 4 - 6 Pantoprazole Sodium (Protonix Iv) 40 mg IVPUSH DAILY [facility] Last Admin: 11/28/17 09:38 Dose: 40 mg Valsartan (Diovan -) 80 mg PO DAILY [facility] Last Admin: 11/28/17 09:38 Dose: 80 mg - Objective Vital Signs: Vital Signs Temperature 98.3 F 11/28/17 10:15 Pulse Rate 97 H 11/28/17 10:15 Respiratory Rate 24 H 11/28/17 10:15 Blood Pressure 161/72 11/28/17 10:15 O2 Sat by Pulse Oximetry (%) 97 11/28/17 08:00 HENT: Yes: Atraumatic Neck: Yes: Supple Cardiovascular: Yes: Regular Rate and Rhythm, S1, S2 Respiratory: Yes: CTA Bilaterally Gastrointestinal: Yes: Other (Post op) Edema: No Labs: CBC, BMP 11/28/17 05:30 11/28/17 05:30 Problem List - Problems (1) Acute on chronic systolic congestive heart failure Code(s): I50.23 - ACUTE ON CHRONIC SYSTOLIC (CONGESTIVE) HEART FAILURE (2) COPD without exacerbation Code(s): J44.9 - CHRONIC OBSTRUCTIVE PULMONARY DISEASE, UNSPECIFIED (3) Colostomy in place Code(s): Z93.3 - COLOSTOMY STATUS (4) Diabetes mellitus type 2, noninsulin dependent Code(s): E11.9 - TYPE 2 DIABETES MELLITUS WITHOUT COMPLICATIONS (5) H/O: CVA (cerebrovascular accident) Code(s): Z86.73 - PRSNL HX OF TIA (TIA), AND CEREB INFRC W/O RESID DEFICITS (6) Hypertension Code(s): I10 - ESSENTIAL (PRIMARY) HYPERTENSION Qualifiers: Hypertension type: essential hypertension Qualified Code(s): I10 - Essential (primary) hypertension (7) Acute exacerbation of congestive heart failure Code(s): I50.9 - HEART FAILURE, UNSPECIFIED (8) Anemia Code(s): D64.9 - ANEMIA, UNSPECIFIED Qualifiers: Anemia type: unspecified type Qualified Code(s): D64.9 - Anemia, unspecified (9) COPD (chronic obstructive pulmonary disease) Code(s): J44.9 - CHRONIC OBSTRUCTIVE PULMONARY DISEASE, UNSPECIFIED Qualifiers: COPD type: unspecified COPD Qualified Code(s): J44.9 - Chronic obstructive pulmonary disease, unspecified (10) Left renal artery stenosis Code(s): I70.1 - ATHEROSCLEROSIS OF RENAL ARTERY (11) Perforated viscus Code(s): R19.8 - OTH SYMPTOMS AND SIGNS INVOLVING THE DGSTV SYS AND ABDOMEN Assessment/Plan 1. POD #4 colostomy reversal/small bowel resection 2. Acute on chronic LV systolic failure with pleural effusions 3. History of perforated sigmoid colon (pathology c/w ischemic colitis) post resection (Dwaine's procedure) 4. History of CVA with left MCA thrombus 5. COPD 6. HTN/HCVD 7. Hyperlipidemia 8. Anemia 9. Distal left renal artery stenosis (50-60%) 10. Type 2 DM 11. SIVA resolved PLAN: 1. IVF with monitor renal function and electrolytes 2. Continue Carvedilol 25 bid, Lipitor 20 qhs, and Diovan 80 qd 3. Resume Coumadin post-op once hemostasis achieved, monitor Hgb and transfuse for Hgb<8.0 4. DVT and GI prophylaxis, OOB to chair, analgesia as needed Further plans are to follow Chandu Mahoney MD
[2017-11-28] MEDS ORDERED: FUROSEMIDE 40 MG/4 ML INJECTABLE VIAL IVPUSH ONE (12:59)
[2017-11-28] MEDS ORDERED: FUROSEMIDE 40 MG TABLET (FP) PO SCH (13:00)
--- NOTE | 2017-11-28 13:07 | PN ---
Progress Note (short form) - Note Progress Note: Current Medications Acetaminophen (Ofirmev Injection -) 1,000 mg IVPB Q6H PRN PRN Reason: Pain 1-3 Albuterol/Ipratropium (Duoneb -) 1 amp NEB Q4H PRN PRN Reason: SHORTNESS OF BREATH Last Admin: 11/28/17 06:00 Dose: 1 amp Anastrozole (Arimidex -) 1 mg PO DAILY [facility] Last Admin: 11/28/17 09:37 Dose: 1 mg Carvedilol (Coreg -) 25 mg PO BID [facility] Last Admin: 11/28/17 09:38 Dose: 25 mg Chlorhexidine Gluconate (Hibiclens For Decolonization -) 1 applic TP HS [facility] Last Admin: 11/27/17 22:31 Dose: 1 applic Furosemide (Lasix Injection -) 20 mg IVPUSH ONCE ONE Stop: 11/28/17 13:00 Furosemide (Lasix -) 40 mg PO DAILY [facility] Heparin Sodium (Porcine) (Heparin -) 5,000 unit SQ TID [facility] Last Admin: 11/28/17 06:40 Dose: 5,000 unit Hydromorphone HCl (Dilaudid Injection -) 2 mg IVPB Q4H PRN PRN Reason: PAIN LEVEL 7 - 10 Dextrose/Lactated Ringer's (D5-Lr -) 1,000 mls @ 75 mls/hr IV ASDIR [facility] Last Admin: 11/27/17 22:30 Dose: 75 mls/hr Insulin Aspart (Novolog Vial Sliding Scale -) 1 vial SQ TIDAC [facility]; Protocol Last Admin: 11/28/17 11:28 Dose: 2 units Mupirocin (Bactroban Ointment (For Decolonization) -) 1 applic NS BID [facility] Stop: 11/29/17 21:59 Last Admin: 11/28/17 11:05 Dose: 1 applic Ondansetron HCl (Zofran Injection) 4 mg IVPUSH Q6H PRN PRN Reason: NAUSEA AND/OR VOMITING Oxycodone HCl (Roxicodone -) 10 mg PO Q4H PRN PRN Reason: PAIN LEVEL 4 - 6 Pantoprazole Sodium (Protonix Iv) 40 mg IVPUSH DAILY [facility] Last Admin: 11/28/17 09:38 Dose: 40 mg Valsartan (Diovan -) 80 mg PO DAILY [facility] Last Admin: 11/28/17 09:38 Dose: 80 mg Warfarin Sodium (Coumadin -) 5 mg PO ONCE@1800 ONE Stop: 11/28/17 18:01 Laboratory Results - last 24 hr 11/27/17 11/27/17 11/28/17 17:50 22:40 05:30 WBC 7.2 RBC 2.51 L Hgb 8.0 L Hct 24.5 L MCV 97.6 H MCH 31.6 MCHC 32.4 RDW 15.1 Plt Count 206 MPV 8.6 Sodium Potassium Chloride Carbon Dioxide Anion Gap BUN Creatinine Creat Clearance w eGFR POC Glucometer 165.70371 157.13556 Random Glucose Calcium Phosphorus Magnesium 11/28/17 05:30 WBC RBC Hgb Hct MCV MCH MCHC RDW Plt Count MPV Sodium 141 Potassium 4.2 Chloride 106 Carbon Dioxide 30 Anion Gap 5 L BUN 14 Creatinine 0.9 Creat Clearance w eGFR > 60 POC Glucometer Random Glucose 150 H Calcium 8.7 Phosphorus 2.9 Magnesium 1.9 Vital Signs Temp 98.1 F 11/28/17 12:00 Pulse 85 11/28/17 12:00 Resp 22 H 11/28/17 12:00 BP 164/77 11/28/17 12:00 Pulse Ox 97 11/28/17 08:00 Intake & Output 11/27/17 11/28/17 11/28/17 23:59 11:59 23:59 Intake Total 1275 900 412.5 Output Total 600 300 350 Balance 675 600 62.5 Weight 168 lb 5 oz Intake: IV 1275 900 412.5 D5-Lr - 1,000 ml @ 75 mls 1275 412.5 /hr IV ASDIR [facility] Rx#: [id number] D5-Lr - 1,000 ml @ 75 mls 900 /hr IV ASDIR [facility] Rx#: [id number] Output: Urine 600 300 350 Escobar 600 300 350 Other: Voiding Method Indwelling Catheter Indwelling Catheter Bowel Movement No No No CC: breathing a bit harder ````````````````````` skin-some pallor heart--RR lungs--distant BS abd--BS quiet; non distended; multiple dressings present neuro--alert, coherent in NAD `````````````````````````````` Summ > s/p reversal of colostomy--as described in surgical procedure note; post Op day #4; NPO until develops flatus; mgment as per Dr Mitchell > ASHD--SBP remains high; CXR W/ worsening failure (see report), now a bit more SOB, will start Lasix; may need to up dose of the ARB if BP high in AM; consider cut back in rate of IVF > anemia--H/h at 8; will check daily > COPD--stable clinically > DM--glucose OK > Hx TIA/CVA--had been on Warfarin; will resume a/c as per surg. will check CBC in AM, may need to hold if counts drop ~~~~~~~~~~~~~~~~ Dr Caputo Problem List - Problems (1) Preprocedural examination Code(s): Z01.818 - ENCOUNTER FOR OTHER PREPROCEDURAL EXAMINATION (2) Anemia Code(s): D64.9 - ANEMIA, UNSPECIFIED Qualifiers: Anemia type: unspecified type Qualified Code(s): D64.9 - Anemia, unspecified (3) COPD without exacerbation Code(s): J44.9 - CHRONIC OBSTRUCTIVE PULMONARY DISEASE, UNSPECIFIED (4) Cancer of left breast Code(s): C50.912 - MALIGNANT NEOPLASM OF UNSPECIFIED SITE OF LEFT FEMALE BREAST Qualifiers: Breast location: upper outer quadrant of breast Estrogen receptor status: positive Patient sex: female Qualified Code(s): C50.412 - Malignant neoplasm of upper-outer quadrant of left female breast (5) Diabetes mellitus type 2, noninsulin dependent Code(s): E11.9 - TYPE 2 DIABETES MELLITUS WITHOUT COMPLICATIONS (6) H/O: CVA (cerebrovascular accident) Code(s): Z86.73 - PRSNL HX OF TIA (TIA), AND CEREB INFRC W/O RESID DEFICITS (7) Anticoagulant long-term use Code(s): Z79.01 - JAIL (CURRENT) USE OF 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 (8) Colostomy in place Code(s): Z93.3 - COLOSTOMY STATUS
[2017-11-28] MEDS ORDERED: ACETAMINOPHEN 325 MG TABLET (FP) PO PRN (17:26)
--- NOTE | 2017-11-28 17:43 | PN ---
Progress Note, Physician History of Present Illness: Pt had colostomy and enterocutaneous fistula, now s/p takedown of both with SB resection and scar revision, was in ICU postoperatively for close monitoring of electrolyte, renal and fluid status. Transferred to floor this afternoon. Acute on chronic CHF diuresed preop, with chronic pleural effusions, using NC O2 and feeling anxious so breathing a bit harder today. CXR has been stable. Renal function improved/back to baseline after elevation. UOP copious and clear after Lasix today. Pt reports feeling minimal pain, off REGISTRY NP, was OOB to chair earlier today. No acute events overnight. PMD and Cardiology also following. Sugars ok. Pt is hungry, taking meds with sips but no flatus/BM yet. Seen and examined in bed on floor, requesting breathing treatment, but not in acute distress. Feels rumbling and gurgling from abdomen. - Current Medication List Current Medications: Active Medications Acetaminophen (Tylenol -) 650 mg PO Q6H PRN PRN Reason: PAIN LEVEL 4 - 6 Albuterol/Ipratropium (Duoneb -) 1 amp NEB Q4H PRN PRN Reason: SHORTNESS OF BREATH Last Admin: 11/28/17 17:22 Dose: 1 amp Anastrozole (Arimidex -) 1 mg PO DAILY [facility] Last Admin: 11/28/17 09:37 Dose: 1 mg Carvedilol (Coreg -) 25 mg PO BID [facility] Last Admin: 11/28/17 09:38 Dose: 25 mg Furosemide (Lasix -) 40 mg PO DAILY [facility] Heparin Sodium (Porcine) (Heparin -) 5,000 unit SQ TID [facility] Last Admin: 11/28/17 14:11 Dose: 5,000 unit Dextrose/Lactated Ringer's (D5-Lr -) 1,000 mls @ 75 mls/hr IV ASDIR [facility] Last Admin: 11/27/17 22:30 Dose: 75 mls/hr Insulin Aspart (Novolog Vial Sliding Scale -) 1 vial SQ TIDAC [facility]; Protocol Last Admin: 11/28/17 16:24 Dose: Not Given Ondansetron HCl (Zofran Injection) 4 mg IVPUSH Q6H PRN PRN Reason: NAUSEA AND/OR VOMITING Oxycodone HCl (Roxicodone -) 5 mg PO Q6H PRN PRN Reason: PAIN LEVEL 7 - 10 Pantoprazole Sodium (Protonix Iv) 40 mg IVPUSH DAILY [facility] Last Admin: 11/28/17 09:38 Dose: 40 mg Valsartan (Diovan -) 80 mg PO DAILY [facility] Last Admin: 11/28/17 09:38 Dose: 80 mg Warfarin Sodium (Coumadin -) 5 mg PO ONCE@1800 [facility] Stop: 11/28/17 18:01 - Objective Vital Signs: Vital Signs Temperature 97.7 F 11/28/17 14:24 Pulse Rate 88 11/28/17 14:24 Respiratory Rate 22 H 11/28/17 14:24 Blood Pressure 132/56 L 11/28/17 14:24 O2 Sat by Pulse Oximetry (%) 97 11/28/17 13:00 Vital Signs Period Temp Pulse Resp BP Sys/Holt Pulse Ox Last 24 Hr 97.1 F-98.3 F 76-100 14-29 132-169/54-88 92-97 Constitutional: Yes: No Distress, Anxious, Obese Eyes: Yes: EOM Intact, Other (right eye cloudy) HENT: Yes: Atraumatic, Normocephalic Cardiovascular: Yes: Tachycardia. No: Pulse Irregular Respiratory: Yes: Regular, CTA Bilaterally, Diminished (right base), On Nasal O2 , Tachypnea (mild). No: Accessory Muscle Use, Wheezes (not appreciated) Gastrointestinal: Yes: Normal Bowel Sounds (slightly decreased), Soft, Abdomen, Obese, Tenderness (incisional only), Other (midline incision w/mini; left sided dressings). No: Distention ...Rectal Exam: Yes: Deferred Genitourinary: Yes: Escobar Present, Polyuria (after lasix). No: Hematuria Extremities: No: Cool, Cyanosis Integumentary: Yes: Incision (midline w/mini). No: Jaundice, Rash Wound/Incision: Yes: Clean/Dry, Well Approximated, [place] Intact (midline), Dressing Dry and Intact (left x 2 with dried strikethrough), Dressing Removed ( left side x 2 and changed - wounds clean, see below; repacked with 1/2" iodoform , covered with gauze and tape), Unapproximated (left x 2). No: Reddened Neurological: Yes: Alert, Oriented Labs: CBC, BMP 11/28/17 05:30 11/28/17 05:30 - ....Imaging Chest X-ray: Report Reviewed, Image Reviewed (increased pulmonary congestion, effusions present) Problem List - Problems (1) Colostomy in place Assessment/Plan: POD4 s/p colostomy reversal, takedown of entercutaneous fistula with small bowel resection, scar revision urine output appropriate after lasix today continue maintenance fluids and ok to resume daily lasix po will d/c Escobar bedside commode with assistance as needed continue strict I/Os NPO except meds with sips until bowel function resumes GI/DVT prophylaxis - SCDs, heparin SQ q8H, PPI daily pain controlled - would encourage tylenol prn over narcotic changed dressings old stoma site measures 3 x 0.8 x 2.5cm deep centeno clean, some early granulation starting will need VNS for daily packing changes on discharge home had [facility] in past will be able to help 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 Assessment/Plan: see above dressing at old drain/fistula site changed wound measures 2 x 0.8 x 1.5cm deep clean, base appears red, no bleeding or active drainage will need VNS for daily packing changes on discharge home, as noted above Code(s): K63.2 - FISTULA OF INTESTINE (3) Anticoagulant long-term use Assessment/Plan: continue DVT prophylaxis while INR < 2 may resume coumadin at home dose Code(s): Z79.01 - CHALK CUTTER (CURRENT) USE OF 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 (4) COPD without exacerbation Assessment/Plan: cardiology and medicine following pt with known pleural effusions, R>L NC O2 to keep sats >=93% (baseline on RA is mid-90s) - use prn encouraged IS use and sitting up in chair/OOB as tolerated nebs prn - getting one now pt gets more SOB when she gets anxious Code(s): J44.9 - CHRONIC OBSTRUCTIVE PULMONARY DISEASE, UNSPECIFIED (5) Diabetes mellitus type 2, noninsulin dependent Assessment/Plan: FS with SSI coverage until back on diet Code(s): E11.9 - TYPE 2 DIABETES MELLITUS WITHOUT COMPLICATIONS (6) H/O: CVA (cerebrovascular accident) Assessment/Plan: resuming coumadin INR in am and daily Code(s): Z86.73 - PRSNL HX OF TIA (TIA), AND CEREB INFRC W/O RESID DEFICITS (7) Hypertension Assessment/Plan: continue carvedilol and diovan per cardiology Code(s): I10 - ESSENTIAL (PRIMARY) HYPERTENSION Qualifiers: Hypertension type: essential hypertension Qualified Code(s): I10 - Essential (primary) hypertension (8) Cancer of left breast Assessment/Plan: resumed arimidex Code(s): C50.912 - MALIGNANT NEOPLASM OF UNSPECIFIED SITE OF LEFT FEMALE BREAST Qualifiers: Breast location: upper outer quadrant of breast Estrogen receptor status: positive Patient sex: female Qualified Code(s): C50.412 - Malignant neoplasm of upper-outer quadrant of left female breast (9) Depression Assessment/Plan: resumed wellbutrin Code(s): F32.9 - MAJOR DEPRESSIVE DISORDER, SINGLE EPISODE, UNSPECIFIED Qualifiers: Depression Type: reactive depression Qualified Code(s): F32.9 - Major depressive disorder, single episode, unspecified (10) Acute on chronic systolic congestive heart failure Assessment/Plan: cardiology, medicine notes appreciated judicious but adequate hydration, monitor lytes, UOP, pulmonary status good response to lasix today following CXRs Code(s): I50.23 - ACUTE ON CHRONIC SYSTOLIC (CONGESTIVE) HEART FAILURE (11) Bilateral pleural effusion Assessment/Plan: see above Code(s): J90 - PLEURAL EFFUSION, NOT ELSEWHERE CLASSIFIED
[2017-11-28] MEDS ORDERED: WARFARIN NA 5 MG TABLET (UD) PO ONE (18:00)
[2017-11-28] MEDS ORDERED: ZOLPIDEM TARTRATE 5 MG TABLET PO ONE (22:00)
[2017-11-28] MEDS: DEXTROSE 5%-LACTATED RINGERS 1,000 ML IV SCH ×2 (22:13→22:14)
[2017-11-29] MEDS: ALBUTEROL SO4 2.5/IPRATROPIUM 0.5 INH SOL 3 ML VIAL.NEB. NEB PRN (03:30)
[2017-11-29] MEDS: INSULIN SLIDING SCALE (NOVOLOG) 1 VIAL SQ SCH ×3 (06:52→17:14)
[2017-11-29] MEDS: HEPARIN NA (PORCINE) 5,000 UNITS/ML 1ML VIAL SQ SCH (06:52)
[2017-11-29] MEDS ORDERED: INSULIN (NOVOLOG) ASPART 100 UNITS/ML 10ML VIAL ONE ×3 (07:23→21:16)
[2017-11-29 08:03] LABS: HEMATOCRIT 26.8 % (32.4-45.2); HEMOGLOBIN 8.7 GM/dL (10.7-15.3); MCH 31.7 pg (25.7-33.7); MCHC 32.5 g/dl (32.0-36.0); MEAN CELL VOLUME 97.6 fl (80-96); MEAN PLT VOLUME 8.8 fl (7.5-11.1); PLATELET COUNT 275 K/MM3 (134-434); RBC 2.75 M/mm3 (3.60-5.2); WHITE BLOOD COUNT 8.7 K/mm3 (4.0-10.0)
[2017-11-29 08:31] LABS: INR 2.44 (0.83-1.09)
[2017-11-29 09:07] LABS: ANION GAP 12 MMOL/L (8-16); BLOOD UREA NITROGEN 14 mg/dL (7-18); CALCIUM 9.4 mg/dL (8.5-10.1); CHLORIDE 103 mmol/L (98-107); CO2 27 mmol/L (21-32); CREATININE 0.9 mg/dL (0.55-1.3); GLUCOSE,RANDOM 190 mg/dL (74-106); POTASSIUM 3.8 mmol/L (3.5-5.1); SODIUM 142 mmol/L (136-145)
[2017-11-29] MEDS ORDERED: PT OWN MED DRAWER 7, Y5N ONE (10:15)
[2017-11-29] MEDS: FUROSEMIDE 40 MG TABLET (FP) PO SCH (10:18)
[2017-11-29] MEDS: VALSARTAN 80 MG TABLET (UD) PO SCH (10:18)
[2017-11-29] MEDS: CARVEDILOL 25 MG TABLET (FP) PO SCH ×2 (10:18→21:21)
[2017-11-29] MEDS: ANASTROZOLE 1 MG TABLET PO SCH (10:18)
[2017-11-29] MEDS: PANTOPRAZOLE SODIUM 40 MG VIAL IVPUSH SCH (10:19)
[2017-11-29] MEDS: oxyCODONE HCL 5 MG TABLET PO PRN (10:29)
[2017-11-29] MEDS: DEXTROSE 5%-LACTATED RINGERS 1,000 ML IV SCH (11:00)
--- NOTE | 2017-11-29 13:20 | PN ---
Progress Note (short form) - Note Progress Note: PULMONARY States she woke up this AM short of breath. Happens at home as well. She is a snorer, does have nocturnal awakenings. Does not feel rested in the morning and sleepy during the daytime. Vital Signs Period Temp Pulse Resp BP Sys/Holt Pulse Ox Last 24 Hr 97.5 F-98.0 F 76-94 20-22 132-162/56-82 95-98 Gen: NAD at rest Heart: RRR Lung: decreased breath sounds at the bases Abd: soft, nontender Ext: no edema CBC, BMP 11/29/17 06:25 11/29/17 06:25 Active Medications Acetaminophen (Tylenol -) 650 mg PO Q6H PRN PRN Reason: PAIN LEVEL 4 - 6 Albuterol/Ipratropium (Duoneb -) 1 amp NEB Q4H PRN PRN Reason: SHORTNESS OF BREATH Last Admin: 11/29/17 03:30 Dose: 1 amp Anastrozole (Arimidex -) 1 mg PO DAILY [facility] Last Admin: 11/29/17 10:18 Dose: 1 mg Carvedilol (Coreg -) 25 mg PO BID [facility] Last Admin: 11/29/17 10:18 Dose: 25 mg Furosemide (Lasix -) 40 mg PO DAILY [facility] Last Admin: 11/29/17 10:18 Dose: 40 mg Dextrose/Lactated Ringer's (D5-Lr -) 1,000 mls @ 75 mls/hr IV ASDIR [facility] Last Admin: 11/29/17 11:00 Dose: 75 mls/hr Insulin Aspart (Novolog Vial Sliding Scale -) 1 vial SQ TIDAC [facility]; Protocol Last Admin: 11/29/17 11:46 Dose: 2 units Ondansetron HCl (Zofran Injection) 4 mg IVPUSH Q6H PRN PRN Reason: NAUSEA AND/OR VOMITING Oxycodone HCl (Roxicodone -) 5 mg PO Q6H PRN PRN Reason: PAIN LEVEL 7 - 10 Last Admin: 11/29/17 10:29 Dose: 5 mg Pantoprazole Sodium (Protonix Iv) 40 mg IVPUSH DAILY [facility] Last Admin: 11/29/17 10:19 Dose: 40 mg Valsartan (Diovan -) 80 mg PO DAILY [facility] Last Admin: 11/29/17 10:18 Dose: 80 mg A/P s/p Colostomy Reversal/SB resection Acute on Chronic Systolic Heart Failure Acute Kidney Injury COPD HTN Hyperlipidemia DM h/o CVA Likely Obstructive Sleep Apnea - pain control - incentive spirometry - continue lasix - monitor urine output, creatinine - resume anticoagulation when ok with surgery - OOB to chair - DVT prophylaxis - outpt PFTs, PSG
--- NOTE | 2017-11-29 14:03 | PN ---
Progress Note (short form) - Note Progress Note: medical note Current Medications Acetaminophen (Tylenol -) 650 mg PO Q6H PRN PRN Reason: PAIN LEVEL 4 - 6 Albuterol/Ipratropium (Duoneb -) 1 amp NEB Q4H PRN PRN Reason: SHORTNESS OF BREATH Last Admin: 11/29/17 03:30 Dose: 1 amp Anastrozole (Arimidex -) 1 mg PO DAILY [facility] Last Admin: 11/29/17 10:18 Dose: 1 mg Carvedilol (Coreg -) 25 mg PO BID [facility] Last Admin: 11/29/17 10:18 Dose: 25 mg Furosemide (Lasix -) 40 mg PO DAILY [facility] Last Admin: 11/29/17 10:18 Dose: 40 mg Dextrose/Lactated Ringer's (D5-Lr -) 1,000 mls @ 75 mls/hr IV ASDIR [facility] Last Admin: 11/29/17 11:00 Dose: 75 mls/hr Insulin Aspart (Novolog Vial Sliding Scale -) 1 vial SQ TIDAC [facility]; Protocol Last Admin: 11/29/17 11:46 Dose: 2 units Ondansetron HCl (Zofran Injection) 4 mg IVPUSH Q6H PRN PRN Reason: NAUSEA AND/OR VOMITING Oxycodone HCl (Roxicodone -) 5 mg PO Q6H PRN PRN Reason: PAIN LEVEL 7 - 10 Last Admin: 11/29/17 10:29 Dose: 5 mg Pantoprazole Sodium (Protonix Iv) 40 mg IVPUSH DAILY [facility] Last Admin: 11/29/17 10:19 Dose: 40 mg Valsartan (Diovan -) 80 mg PO DAILY [facility] Last Admin: 11/29/17 10:18 Dose: 80 mg Warfarin Sodium (Coumadin -) 2 mg PO DAILY@1800 [facility] Zolpidem Tartrate (Ambien -) 5 mg PO HS PRN PRN Reason: INSOMNIA Laboratory Results - last 24 hr 11/28/17 11/28/17 11/29/17 16:14 21:22 06:25 WBC 8.7 RBC 2.75 L Hgb 8.7 L Hct 26.8 L MCV 97.6 H MCH 31.7 MCHC 32.5 RDW 15.0 Plt Count 275 D MPV 8.8 PT with INR INR Sodium Potassium Chloride Carbon Dioxide Anion Gap BUN Creatinine Creat Clearance w eGFR POC Glucometer 116 217 Random Glucose Calcium 11/29/17 11/29/17 11/29/17 06:25 06:25 06:41 WBC RBC Hgb Hct MCV MCH MCHC RDW Plt Count MPV PT with INR 29.00 H INR 2.44 H Sodium 142 Potassium 3.8 Chloride 103 Carbon Dioxide 27 Anion Gap 12 BUN 14 Creatinine 0.9 Creat Clearance w eGFR > 60 POC Glucometer 206 Random Glucose 190 H Calcium 9.4 11/29/17 11:05 WBC RBC Hgb Hct MCV MCH MCHC RDW Plt Count MPV PT with INR INR Sodium Potassium Chloride Carbon Dioxide Anion Gap BUN Creatinine Creat Clearance w eGFR POC Glucometer 177 Random Glucose Calcium Vital Signs Temp 97.2 F L 11/29/17 13:46 Pulse 92 H 11/29/17 13:46 Resp 22 H 11/29/17 13:46 BP 138/80 11/29/17 13:46 Pulse Ox 98 11/29/17 09:00 Intake & Output 11/28/17 11/29/17 11/29/17 23:59 11:59 23:59 Intake Total 967.5 825 Output Total 1300 Balance -332.5 825 Weight 177 lb 9 oz Intake: IV 937.5 825 D5-Lr - 1,000 ml @ 75 mls 412.5 /hr IV [facility] Rx#: [id number] D5-Lr - 1,000 ml @ 75 mls 525 825 /hr IV [facility] Rx#: [id number] Oral 30 Output: Urine 1300 Escobar 1150 Void 150 Other: Voiding Method Bedside Commode Bedside Commode # Unmeasured Voids Void 1 Bowel Movement No CC: feels "okay"; ate liquids for lunch today no n-v, but had some abd pain when coughing ````````````````````` skin-some pallor heart--RR lungs--distant BS abd--BS quiet; non distended; multiple dressings present neuro--alert, coherent in NAD ext--no edema appreciated `````````````````````````````` Summ > s/p reversal of colostomy--as described in surgical procedure note; post Op day #5; mgment as per Dr Mitchell > ASHD--SBP better this AM; await CXR report; oxygen sat is good with nasal oxygen; consider cut back in rate of IVF > anemia--H/h stable; will check daily > COPD--stable clinically; seen by Pulmonary who feels she may have YESSY; would need sleep studies as OP > DM--glucose OK; BGM mostly under 200 > Hx TIA/CVA--had been on Warfarin; will resume a/c as per surg. adjust dose as per INRs ~~~~~~~~~~~~~~~~ Dr Caputo Problem List - Problems (1) Preprocedural examination Code(s): Z01.818 - ENCOUNTER FOR OTHER PREPROCEDURAL EXAMINATION (2) Anemia Code(s): D64.9 - ANEMIA, UNSPECIFIED Qualifiers: Anemia type: unspecified type Qualified Code(s): D64.9 - Anemia, unspecified (3) COPD without exacerbation Code(s): J44.9 - CHRONIC OBSTRUCTIVE PULMONARY DISEASE, UNSPECIFIED (4) Cancer of left breast Code(s): C50.912 - MALIGNANT NEOPLASM OF UNSPECIFIED SITE OF LEFT FEMALE BREAST Qualifiers: Breast location: upper outer quadrant of breast Estrogen receptor status: positive Patient sex: female Qualified Code(s): C50.412 - Malignant neoplasm of upper-outer quadrant of left female breast (5) Diabetes mellitus type 2, noninsulin dependent Code(s): E11.9 - TYPE 2 DIABETES MELLITUS WITHOUT COMPLICATIONS (6) H/O: CVA (cerebrovascular accident) Code(s): Z86.73 - PRSNL HX OF TIA (TIA), AND CEREB INFRC W/O RESID DEFICITS (7) Anticoagulant long-term use Code(s): Z79.01 - USP (CURRENT) USE OF 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 (8) Colostomy in place Code(s): Z93.3 - COLOSTOMY STATUS
[2017-11-29] MEDS ORDERED: WARFARIN NA 2 MG TABLET (UD) PO SCH (18:00)
[2017-11-29] MEDS: ZOLPIDEM TARTRATE 5 MG TABLET PO PRN (21:21)
[2017-11-30] MEDS: ALBUTEROL SO4 2.5/IPRATROPIUM 0.5 INH SOL 3 ML VIAL.NEB. NEB PRN ×4 (03:31→22:18)
[2017-11-30] MEDS: INSULIN SLIDING SCALE (NOVOLOG) 1 VIAL SQ SCH ×3 (06:18→16:35)
[2017-11-30 06:46] LABS: HEMATOCRIT 27.1 % (32.4-45.2); HEMOGLOBIN 8.7 GM/dL (10.7-15.3); MCH 31.3 pg (25.7-33.7); MCHC 32.2 g/dl (32.0-36.0); MEAN CELL VOLUME 97.2 fl (80-96); MEAN PLT VOLUME 8.1 fl (7.5-11.1); PLATELET COUNT 252 K/MM3 (134-434); RBC 2.79 M/mm3 (3.60-5.2); RDW 15.1 % (11.6-15.6); WHITE BLOOD COUNT 8.5 K/mm3 (4.0-10.0)
[2017-11-30] MEDS: oxyCODONE HCL 5 MG TABLET PO PRN (06:47)
[2017-11-30 07:00] LABS: INR 3.39 (0.83-1.09); PROTHROMBIN TIME (PATIENT) 40.5 SEC (9.7-13.0)
[2017-11-30 07:23] LABS: ANION GAP 10 MMOL/L (8-16); BLOOD UREA NITROGEN 14 mg/dL (7-18); CALCIUM 9.2 mg/dL (8.5-10.1); CHLORIDE 102 mmol/L (98-107); CO2 30 mmol/L (21-32); CREATININE 0.9 mg/dL (0.55-1.3); GLUCOSE,RANDOM 144 mg/dL (74-106); POTASSIUM 3.5 mmol/L (3.5-5.1); SODIUM 143 mmol/L (136-145)
[2017-11-30] MEDS ORDERED: INSULIN (NOVOLOG) ASPART 100 UNITS/ML 10ML VIAL ONE (11:06)
[2017-11-30] MEDS: CARVEDILOL 25 MG TABLET (FP) PO SCH ×2 (11:23→21:13)
[2017-11-30] MEDS: VALSARTAN 80 MG TABLET (UD) PO SCH (11:23)
[2017-11-30] MEDS: PANTOPRAZOLE 40 MG TABLET (FP) PO SCH (11:23)
[2017-11-30] MEDS: FUROSEMIDE 40 MG TABLET (FP) PO SCH (11:23)
--- NOTE | 2017-11-30 12:39 | PN ---
Progress Note (short form) - Note Progress Note: Still mildly SOB but better than yesterday. Noted Lasix PO was restarted yesterday. No CP. Tolerating liquid diet. Intake & Output 11/27/17 11/28/17 11/29/17 11/30/17 23:59 23:59 23:59 23:59 Intake Total 2185 1867.5 1400 50 Output Total 1000 1600 Balance 1185 267.5 1400 50 Weight 169 lb 11.2 oz 168 lb 5 oz 177 lb 9 oz Last Vital Signs Temp Pulse Resp BP Pulse Ox 98.7 F 94 H 20 134/78 94 L 11/30/17 10:00 11/30/17 10:00 11/30/17 10:00 11/30/17 10:00 11/29/17 21:00 Active Medications Acetaminophen (Tylenol -) 650 mg PO Q6H PRN PRN Reason: PAIN LEVEL 4 - 6 Albuterol/Ipratropium (Duoneb -) 1 amp NEB Q4H PRN PRN Reason: SHORTNESS OF BREATH Last Admin: 11/30/17 11:21 Dose: 1 amp Anastrozole (Arimidex -) 1 mg PO DAILY [facility] Last Admin: 11/29/17 10:18 Dose: 1 mg Carvedilol (Coreg -) 25 mg PO BID [facility] Last Admin: 11/30/17 11:23 Dose: 25 mg Furosemide (Lasix -) 40 mg PO DAILY [facility] Last Admin: 11/30/17 11:23 Dose: 40 mg Insulin Aspart (Novolog Vial Sliding Scale -) 1 vial SQ TIDAC [facility]; Protocol Last Admin: 11/30/17 11:26 Dose: 4 units Ondansetron HCl (Zofran Injection) 4 mg IVPUSH Q6H PRN PRN Reason: NAUSEA AND/OR VOMITING Oxycodone HCl (Roxicodone -) 5 mg PO Q6H PRN PRN Reason: PAIN LEVEL 7 - 10 Last Admin: 11/30/17 06:47 Dose: 5 mg Pantoprazole Sodium (Protonix -) 40 mg PO DAILY [facility] Last Admin: 11/30/17 11:23 Dose: 40 mg Valsartan (Diovan -) 80 mg PO DAILY [facility] Last Admin: 11/30/17 11:23 Dose: 80 mg Zolpidem Tartrate (Ambien -) 5 mg PO HS PRN PRN Reason: INSOMNIA Last Admin: 11/29/17 21:21 Dose: 5 mg Gen: Mildly tachypneic at rest Heart: RRR Lung: Bibasilar rales, no wheeze Abd: soft, nontender Ext: no edema Laboratory Results - last 24 hr 11/28/17 11/28/17 11/29/17 05:28 11:21 16:45 WBC RBC Hgb Hct MCV MCH MCHC RDW Plt Count MPV PT with INR INR Sodium Potassium Chloride Carbon Dioxide Anion Gap BUN Creatinine Creat Clearance w eGFR POC Glucometer 168.80511 175.96430 155 Random Glucose Calcium 11/29/17 11/30/17 11/30/17 21:13 06:11 06:20 WBC 8.5 RBC 2.79 L Hgb 8.7 L Hct 27.1 L MCV 97.2 H MCH 31.3 MCHC 32.2 RDW 15.1 Plt Count 252 MPV 8.1 PT with INR INR Sodium Potassium Chloride Carbon Dioxide Anion Gap BUN Creatinine Creat Clearance w eGFR POC Glucometer 160 141 Random Glucose Calcium 11/30/17 11/30/17 11/30/17 06:20 06:20 11:25 WBC RBC Hgb Hct MCV MCH MCHC RDW Plt Count MPV PT with INR 40.50 H INR 3.39 H Sodium 143 Potassium 3.5 Chloride 102 Carbon Dioxide 30 Anion Gap 10 BUN 14 Creatinine 0.9 Creat Clearance w eGFR > 60 POC Glucometer 235 Random Glucose 144 H Calcium 9.2 A/P s/p Colostomy Reversal/SB resection Acute on Chronic Systolic Heart Failure Acute Kidney Injury COPD HTN Hyperlipidemia DM h/o CVA Likely Obstructive Sleep Apnea - Lasix - pain control - incentive spirometry - monitor urine output, creatinine - AC when ok with surgery - OOB to chair - DVT prophylaxis - outpatient PFTs, NPSG Dr Cormier
[2017-11-30] MEDS: ANASTROZOLE 1 MG TABLET PO SCH (13:01)
--- NOTE | 2017-11-30 13:39 | PN ---
Progress Note (short form) - Note Progress Note: Current Medications Acetaminophen (Tylenol -) 650 mg PO Q6H PRN PRN Reason: PAIN LEVEL 4 - 6 Albuterol/Ipratropium (Duoneb -) 1 amp NEB Q4H PRN PRN Reason: SHORTNESS OF BREATH Last Admin: 11/30/17 11:21 Dose: 1 amp Anastrozole (Arimidex -) 1 mg PO DAILY [facility] Last Admin: 11/30/17 13:01 Dose: 1 mg Carvedilol (Coreg -) 25 mg PO BID [facility] Last Admin: 11/30/17 11:23 Dose: 25 mg Furosemide (Lasix Injection -) 40 mg IVPUSH ONCE ONE Stop: 11/30/17 16:01 Furosemide (Lasix Injection -) 40 mg IVPUSH DAILY [facility] Insulin Aspart (Novolog Vial Sliding Scale -) 1 vial SQ TIDAC [facility]; Protocol Last Admin: 11/30/17 11:26 Dose: 4 units Metformin HCl (Glucophage Xr -) 500 mg PO DAILY@0700 [facility] Ondansetron HCl (Zofran Injection) 4 mg IVPUSH Q6H PRN PRN Reason: NAUSEA AND/OR VOMITING Oxycodone HCl (Roxicodone -) 5 mg PO Q6H PRN PRN Reason: PAIN LEVEL 7 - 10 Last Admin: 11/30/17 06:47 Dose: 5 mg Pantoprazole Sodium (Protonix -) 40 mg PO DAILY [facility] Last Admin: 11/30/17 11:23 Dose: 40 mg Valsartan (Diovan -) 80 mg PO DAILY [facility] Last Admin: 11/30/17 11:23 Dose: 80 mg Warfarin Sodium (Coumadin -) 1 mg PO ONCE@1800 ONE Stop: 11/30/17 18:01 Zolpidem Tartrate (Ambien -) 5 mg PO HS PRN PRN Reason: INSOMNIA Last Admin: 11/29/17 21:21 Dose: 5 mg Laboratory Results - last 24 hr 11/28/17 11/28/17 11/29/17 05:28 11:21 16:45 WBC RBC Hgb Hct MCV MCH MCHC RDW Plt Count MPV PT with INR INR Sodium Potassium Chloride Carbon Dioxide Anion Gap BUN Creatinine Creat Clearance w eGFR POC Glucometer 168.68022 175.66468 155 Random Glucose Calcium 11/29/17 11/30/1718 21:13 06:11 06:20 WBC 8.5 RBC 2.79 L Hgb 8.7 L Hct 27.1 L MCV 97.2 H MCH 31.3 MCHC 32.2 RDW 15.1 Plt Count 252 MPV 8.1 PT with INR INR Sodium Potassium Chloride Carbon Dioxide Anion Gap BUN Creatinine Creat Clearance w eGFR POC Glucometer 160 141 Random Glucose Calcium 11/30/17 11/30/17 11/30/17 06:20 06:20 11:25 WBC RBC Hgb Hct MCV MCH MCHC RDW Plt Count MPV PT with INR 40.50 H INR 3.39 H Sodium 143 Potassium 3.5 Chloride 102 Carbon Dioxide 30 Anion Gap 10 BUN 14 Creatinine 0.9 Creat Clearance w eGFR > 60 POC Glucometer 235 Random Glucose 144 H Calcium 9.2 Vital Signs Temperature 98.7 F 11/30/17 10:00 Pulse Rate 94 H 11/30/17 10:00 Respiratory Rate 20 11/30/17 10:00 Blood Pressure 134/78 11/30/17 10:00 O2 Sat by Pulse Oximetry (%) 94 L 11/29/17 21:00 CC: no new complaints ````````````````````` skin-some pallor heart--RR lungs--distant BS abd--BS quiet;multiple dressings present neuro--alert, coherent in NAD ext--no edema appreciated `````````````````````````````` Summ > s/p reversal of colostomy--as described in surgical procedure note; post Op day #6; mgment as per Dr Mitchell, adv diet > ASHD--SBP better this AM; CXR still showing vasc congestion; oxygen sat is good with nasal oxygen; off IVF; now will up dose of Lasix > anemia--H/h stable; will check daily > COPD--stable clinically; seen by Pulmonary who feels she may have YESSY; would need sleep studies as OP > DM--glucose OK; BGM mostly under 200; resume Metformin in AM > Hx TIA/CVA--had been on Warfarin; will resume a/c as per surg. adjust dose as per INRs ~~~~~~~~~~~~~~~~ Dr Caputo Problem List - Problems (1) Preprocedural examination Code(s): Z01.818 - ENCOUNTER FOR OTHER PREPROCEDURAL EXAMINATION (2) Anemia Code(s): D64.9 - ANEMIA, UNSPECIFIED Qualifiers: Anemia type: unspecified type Qualified Code(s): D64.9 - Anemia, unspecified (3) COPD without exacerbation Code(s): J44.9 - CHRONIC OBSTRUCTIVE PULMONARY DISEASE, UNSPECIFIED (4) Cancer of left breast Code(s): C50.912 - MALIGNANT NEOPLASM OF UNSPECIFIED SITE OF LEFT FEMALE BREAST Qualifiers: Breast location: upper outer quadrant of breast Estrogen receptor status: positive Patient sex: female Qualified Code(s): C50.412 - Malignant neoplasm of upper-outer quadrant of left female breast (5) Diabetes mellitus type 2, noninsulin dependent Code(s): E11.9 - TYPE 2 DIABETES MELLITUS WITHOUT COMPLICATIONS (6) H/O: CVA (cerebrovascular accident) Code(s): Z86.73 - PRSNL HX OF TIA (TIA), AND CEREB INFRC W/O RESID DEFICITS (7) Anticoagulant long-term use Code(s): Z79.01 - [facility] (CURRENT) USE OF 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 (8) Colostomy in place Code(s): Z93.3 - COLOSTOMY STATUS
--- NOTE | 2017-11-30 13:46 | PN ---
Progress Note, Physician History of Present Illness: Pt had colostomy and enterocutaneous fistula, now s/p takedown of both with SB resection and scar revision, was in ICU postoperatively for close monitoring of electrolyte, renal and fluid status, now on floor. Acute on chronic CHF diuresed preop, with chronic pleural effusions, using NC O2 to keep sats at least 93%. CXR with congestive changes, though back on lasix. PMD to increase dose. Renal function improved/back to baseline after elevation. Pt reports feeling minimal pain, using po Tylenol or oxycodone prn, OOB to chair at least daily and ambulating with PT. No acute events overnight. PMD and Cardiology also following. Tolerating clear liquids, hungry for food. Wants coffee. Passing flatus but no BM yet. - Current Medication List Current Medications: Active Medications Acetaminophen (Tylenol -) 650 mg PO Q6H PRN PRN Reason: PAIN LEVEL 4 - 6 Albuterol/Ipratropium (Duoneb -) 1 amp NEB Q4H PRN PRN Reason: SHORTNESS OF BREATH Last Admin: 11/30/17 11:21 Dose: 1 amp Anastrozole (Arimidex -) 1 mg PO DAILY [facility] Last Admin: 11/30/17 13:01 Dose: 1 mg Carvedilol (Coreg -) 25 mg PO BID [facility] Last Admin: 11/30/17 11:23 Dose: 25 mg Furosemide (Lasix Injection -) 40 mg IVPUSH ONCE ONE Stop: 11/30/17 16:01 Furosemide (Lasix Injection -) 40 mg IVPUSH DAILY [facility] Insulin Aspart (Novolog Vial Sliding Scale -) 1 vial SQ TIDAC [facility]; Protocol Last Admin: 11/30/17 11:26 Dose: 4 units Metformin HCl (Glucophage Xr -) 500 mg PO DAILY@0700 [facility] Ondansetron HCl (Zofran Injection) 4 mg IVPUSH Q6H PRN PRN Reason: NAUSEA AND/OR VOMITING Oxycodone HCl (Roxicodone -) 5 mg PO Q6H PRN PRN Reason: PAIN LEVEL 7 - 10 Last Admin: 11/30/17 06:47 Dose: 5 mg Pantoprazole Sodium (Protonix -) 40 mg PO DAILY [facility] Last Admin: 11/30/17 11:23 Dose: 40 mg Valsartan (Diovan -) 80 mg PO DAILY [facility] Last Admin: 11/30/17 11:23 Dose: 80 mg Warfarin Sodium (Coumadin -) 1 mg PO ONCE@1800 ONE Stop: 11/30/17 18:01 Zolpidem Tartrate (Ambien -) 5 mg PO HS PRN PRN Reason: INSOMNIA Last Admin: 11/29/17 21:21 Dose: 5 mg - Objective Vital Signs: Vital Signs Temperature 98.7 F 11/30/17 10:00 Pulse Rate 94 H 11/30/17 10:00 Respiratory Rate 20 11/30/17 10:00 Blood Pressure 134/78 11/30/17 10:00 O2 Sat by Pulse Oximetry (%) 94 L 11/29/17 21:00 Constitutional: Yes: No Distress, Calm, Obese Eyes: Yes: EOM Intact, Other (right eye cloudy) HENT: Yes: Atraumatic, Normocephalic Cardiovascular: Yes: Regular Rate and Rhythm, Murmur Respiratory: Yes: Regular, Diminished (right, especially base), On Nasal O2. No : Rales, Wheezes Gastrointestinal: Yes: Normal Bowel Sounds, Soft, Abdomen, Obese. No: Tenderness (incisional only, mainly at open wounds) ...Rectal Exam: Yes: Deferred Genitourinary: Yes: Incontinence (little yesterday, didn't quite make commode in time). No: Escobar Present Extremities: No: Cool, Cyanosis Integumentary: Yes: Incision (midline w/mini). No: Jaundice, Rash Wound/Incision: Yes: Clean/Dry, Well Approximated, Mini Intact (midline), Dressing Dry and Intact (left x 2), Dressing Removed (left x 2 - changed with 1/ 2" iodoform packing to both, wounds clean, red-based, granulating some; minimal serous drainage on dressings), Unapproximated (left x 2). No: Reddened Neurological: Yes: Alert, Oriented Labs: CBC, BMP 11/30/17 06:20 11/30/17 06:20 INR, PTT INR 3.39 (0.83-1.09) H 11/30/17 06:20 - ....Imaging Chest X-ray: Report Reviewed, Image Reviewed (increased congestive changes, effusions present) Problem List - Problems (1) Colostomy in place Assessment/Plan: POD6 s/p colostomy reversal, takedown of entercutaneous fistula with small bowel resection, scar revision doing well tolerating clears with flatus but no BM will advance to diabetic/low Na diet for dinner back on home meds increase lasix toward home dose INR high - PMD managing coumadin GI/DVT prophylaxis - SCDs, heparin SQ q8H, PPI daily pain controlled - would encourage tylenol prn over narcotic PT for ambulation and OOB changed dressings with 1/2" packing, wounds clean will need VNS for daily packing changes on discharge home had [facility] in past will be able to help 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 Assessment/Plan: see above dressing at old drain/fistula site changed clean, base appears red, no bleeding or active drainage will need VNS for daily packing changes on discharge home, as noted above Code(s): K63.2 - FISTULA OF INTESTINE (3) Anticoagulant long-term use Assessment/Plan: see above Code(s): Z79.01 - [employer] (CURRENT) USE OF 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 (4) COPD without exacerbation Assessment/Plan: cardiology and medicine following pt with known pleural effusions, R>L NC O2 to keep sats >=93% (baseline on RA is mid-90s) - use prn encouraged IS use and sitting up in chair/OOB as tolerated up lasix - once diuresed, would reassess need for NC O2 Code(s): J44.9 - CHRONIC OBSTRUCTIVE PULMONARY DISEASE, UNSPECIFIED (5) Diabetes mellitus type 2, noninsulin dependent Assessment/Plan: to resume metformin in am per PMD Code(s): E11.9 - TYPE 2 DIABETES MELLITUS WITHOUT COMPLICATIONS (6) H/O: CVA (cerebrovascular accident) Assessment/Plan: coumadin per PMD INR in am and daily Code(s): Z86.73 - PRSNL HX OF TIA (TIA), AND CEREB INFRC W/O RESID DEFICITS (7) Hypertension Assessment/Plan: continue carvedilol and diovan per cardiology Code(s): I10 - ESSENTIAL (PRIMARY) HYPERTENSION Qualifiers: Hypertension type: essential hypertension Qualified Code(s): I10 - Essential (primary) hypertension (8) Cancer of left breast Assessment/Plan: resumed arimidex Code(s): C50.912 - MALIGNANT NEOPLASM OF UNSPECIFIED SITE OF LEFT FEMALE BREAST Qualifiers: Breast location: upper outer quadrant of breast Estrogen receptor status: positive Patient sex: female Qualified Code(s): C50.412 - Malignant neoplasm of upper-outer quadrant of left female breast (9) Depression Assessment/Plan: resumed wellbutrin Code(s): F32.9 - MAJOR DEPRESSIVE DISORDER, SINGLE EPISODE, UNSPECIFIED Qualifiers: Depression Type: reactive depression Qualified Code(s): F32.9 - Major depressive disorder, single episode, unspecified (10) Acute on chronic systolic congestive heart failure Assessment/Plan: cardiology, medicine notes appreciated following CXRs lasix per PMD Code(s): I50.23 - ACUTE ON CHRONIC SYSTOLIC (CONGESTIVE) HEART FAILURE (11) Bilateral pleural effusion Assessment/Plan: see above Code(s): J90 - PLEURAL EFFUSION, NOT ELSEWHERE CLASSIFIED
--- NOTE | 2017-11-30 13:54 | PN ---
Progress Note, Physician History of Present Illness: Pt had colostomy and enterocutaneous fistula, now s/p takedown of both with SB resection and scar revision, was in ICU postoperatively for close monitoring of electrolyte, renal and fluid status, now on floor. Acute on chronic CHF diuresed preop, with chronic pleural effusions, using NC O2 to keep sats at least 93%. CXR with congestive changes, though back on lasix. PMD to increase dose. Renal function improved/back to baseline after elevation. Pt reports feeling minimal pain, using po Tylenol or oxycodone prn, OOB to chair at least daily and ambulating with PT. No acute events overnight. PMD and Cardiology also following. Tolerating clear liquids, hungry for food. Wants coffee. Passing flatus but no BM yet. - Current Medication List Current Medications: Active Medications Acetaminophen (Tylenol -) 650 mg PO Q6H PRN PRN Reason: PAIN LEVEL 4 - 6 Albuterol/Ipratropium (Duoneb -) 1 amp NEB Q4H PRN PRN Reason: SHORTNESS OF BREATH Last Admin: 11/30/17 11:21 Dose: 1 amp Anastrozole (Arimidex -) 1 mg PO DAILY [facility] Last Admin: 11/30/17 13:01 Dose: 1 mg Carvedilol (Coreg -) 25 mg PO BID [facility] Last Admin: 11/30/17 11:23 Dose: 25 mg Furosemide (Lasix Injection -) 40 mg IVPUSH ONCE ONE Stop: 11/30/17 16:01 Furosemide (Lasix Injection -) 40 mg IVPUSH DAILY [facility] Insulin Aspart (Novolog Vial Sliding Scale -) 1 vial SQ TIDAC [facility]; Protocol Last Admin: 11/30/17 11:26 Dose: 4 units Metformin HCl (Glucophage Xr -) 500 mg PO DAILY@0700 [facility] Ondansetron HCl (Zofran Injection) 4 mg IVPUSH Q6H PRN PRN Reason: NAUSEA AND/OR VOMITING Oxycodone HCl (Roxicodone -) 5 mg PO Q6H PRN PRN Reason: PAIN LEVEL 7 - 10 Last Admin: 11/30/17 06:47 Dose: 5 mg Pantoprazole Sodium (Protonix -) 40 mg PO DAILY [facility] Last Admin: 11/30/17 11:23 Dose: 40 mg Valsartan (Diovan -) 80 mg PO DAILY [facility] Last Admin: 11/30/17 11:23 Dose: 80 mg Warfarin Sodium (Coumadin -) 1 mg PO ONCE@1800 ONE Stop: 11/30/17 18:01 Zolpidem Tartrate (Ambien -) 5 mg PO HS PRN PRN Reason: INSOMNIA Last Admin: 11/29/17 21:21 Dose: 5 mg - Objective Vital Signs: vitals reviewed and stable Neurological: Yes: Alert, Oriented Labs: wbc normal Hb 8.7 INR 2.44 BUN/Cr 14/0.9 K+ 3.8 - ....Imaging Chest X-ray: Report Reviewed, Image Reviewed Problem List - Problems (1) Colostomy in place 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 Code(s): K63.2 - FISTULA OF INTESTINE (3) Anticoagulant long-term use 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(s): 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 (4) COPD without exacerbation Code(s): J44.9 - CHRONIC OBSTRUCTIVE PULMONARY DISEASE, UNSPECIFIED (5) Diabetes mellitus type 2, noninsulin dependent Code(s): E11.9 - TYPE 2 DIABETES MELLITUS WITHOUT COMPLICATIONS (6) H/O: CVA (cerebrovascular accident) Code(s): Z86.73 - PRSNL HX OF TIA (TIA), AND CEREB INFRC W/O RESID DEFICITS (7) Hypertension Code(s): I10 - ESSENTIAL (PRIMARY) HYPERTENSION Qualifiers: Hypertension type: essential hypertension Qualified Code(s): I10 - Essential (primary) hypertension (8) Cancer of left breast Code(s): C50.912 - MALIGNANT NEOPLASM OF UNSPECIFIED SITE OF LEFT FEMALE BREAST Qualifiers: Breast location: upper outer quadrant of breast Estrogen receptor status: positive Patient sex: female Qualified Code(s): C50.412 - Malignant neoplasm of upper-outer quadrant of left female breast (9) Depression Code(s): F32.9 - MAJOR DEPRESSIVE DISORDER, SINGLE EPISODE, UNSPECIFIED Qualifiers: Depression Type: reactive depression Qualified Code(s): F32.9 - Major depressive disorder, single episode, unspecified (10) Acute on chronic systolic congestive heart failure Code(s): I50.23 - ACUTE ON CHRONIC SYSTOLIC (CONGESTIVE) HEART FAILURE (11) Bilateral pleural effusion Code(s): J90 - PLEURAL EFFUSION, NOT ELSEWHERE CLASSIFIED
[2017-11-30] MEDS ORDERED: FUROSEMIDE 40 MG/4 ML INJECTABLE VIAL IVPUSH ONE ×2 (15:15→16:00)
--- NOTE | 2017-11-30 15:40 | PN ---
Progress Note, Physician History of Present Illness: POD#6 reversal of colostomy and SB resection, denies chest pain and dyspnea, reports flatus on full liquid diet. - Current Medication List Current Medications: Active Medications Acetaminophen (Tylenol -) 650 mg PO Q6H PRN PRN Reason: PAIN LEVEL 4 - 6 Albuterol/Ipratropium (Duoneb -) 1 amp NEB Q4H PRN PRN Reason: SHORTNESS OF BREATH Last Admin: 11/30/17 11:21 Dose: 1 amp Anastrozole (Arimidex -) 1 mg PO DAILY [facility] Last Admin: 11/30/17 13:01 Dose: 1 mg Carvedilol (Coreg -) 25 mg PO BID [facility] Last Admin: 11/30/17 11:23 Dose: 25 mg Furosemide (Lasix Injection -) 40 mg IVPUSH DAILY [facility] Insulin Aspart (Novolog Vial Sliding Scale -) 1 vial SQ TIDAC [facility]; Protocol Last Admin: 11/30/17 11:26 Dose: 4 units Metformin HCl (Glucophage Xr -) 500 mg PO DAILY@0700 [facility] 234 [facility]S [facility] Ondansetron HCl (Zofran Injection) 4 mg IVPUSH Q6H PRN PRN Reason: NAUSEA AND/OR VOMITING Oxycodone HCl (Roxicodone -) 5 mg PO Q6H PRN PRN Reason: PAIN LEVEL 7 - 10 Last Admin: 11/30/17 06:47 Dose: 5 mg Pantoprazole Sodium (Protonix -) 40 mg PO DAILY [facility] Last Admin: 11/30/17 11:23 Dose: 40 mg Valsartan (Diovan -) 80 mg PO DAILY [facility] Last Admin: 11/30/17 11:23 Dose: 80 mg Warfarin Sodium (Coumadin -) 1 mg PO ONCE@1800 ONE Stop: 11/30/17 18:01 Zolpidem Tartrate (Ambien -) 5 mg PO HS PRN PRN Reason: INSOMNIA Last Admin: 11/29/17 21:21 Dose: 5 mg - Objective Vital Signs: Vital Signs Temperature 98.7 F 11/30/17 10:00 Pulse Rate 94 H 11/30/17 10:00 Respiratory Rate 20 11/30/17 10:00 Blood Pressure 134/78 11/30/17 10:00 O2 Sat by Pulse Oximetry (%) 95 11/30/17 09:00 Constitutional: Yes: No Distress, Calm, Thin Neck: Yes: Supple Cardiovascular: Yes: Regular Rate and Rhythm Respiratory: Yes: Regular, Diminished, On Nasal O2 Gastrointestinal: Yes: Soft, Hypoactive Bowel Sounds Edema: No Labs: CBC, BMP 11/30/17 06:20 11/30/17 06:20 INR, PTT INR 3.39 (0.83-1.09) H 11/30/17 06:20 - ....Imaging Chest X-ray: Report Reviewed (Congestion and effusions) Problem List - Problems (1) Acute exacerbation of congestive heart failure Code(s): I50.9 - HEART FAILURE, UNSPECIFIED (2) Anemia Code(s): D64.9 - ANEMIA, UNSPECIFIED Qualifiers: Anemia type: unspecified type Qualified Code(s): D64.9 - Anemia, unspecified (3) Anticoagulant long-term use Code(s): Z79.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 OF 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 (4) COPD (chronic obstructive pulmonary disease) Code(s): J44.9 - CHRONIC OBSTRUCTIVE PULMONARY DISEASE, UNSPECIFIED Qualifiers: COPD type: unspecified COPD Qualified Code(s): J44.9 - Chronic obstructive pulmonary disease, unspecified (5) Diabetes mellitus type 2, noninsulin dependent Code(s): E11.9 - TYPE 2 DIABETES MELLITUS WITHOUT COMPLICATIONS (6) H/O: CVA (cerebrovascular accident) Code(s): Z86.73 - PRSNL HX OF TIA (TIA), AND CEREB INFRC W/O RESID DEFICITS (7) Hypertension Code(s): I10 - ESSENTIAL (PRIMARY) HYPERTENSION Qualifiers: Hypertension type: essential hypertension Qualified Code(s): I10 - Essential (primary) hypertension (8) Left renal artery stenosis Code(s): I70.1 - ATHEROSCLEROSIS OF RENAL ARTERY Assessment/Plan 12/24/2016 Echo: Normal LV size with moderate decreased LV fxn, mild pericardial effusion, mild ASHLEY, mod MR, mild FL, TR 1. POD #6 colostomy reversal/SB resection 2. Acute on chronic LV systolic failure with pleural effusions 3. H/o perforated sigmoid colon (pathology c/w ischemic colitis) post resection (Dwaine's procedure) 4. History of CVA with left MCA thrombus now with subtherapeutic INR 5. COPD 6. HTN/HCVD 7. Hyperlipidemia 8. Anemia 9. 50-60% distal left renal artery stenosis 10. Type 2 DM 11. SIVA resolved PLAN: 1. IV diuresis with monitor renal function and electrolytes 2. Continue carvedilol 25 bid, Lipitor 20 qhs, and Diovan 80 qd 3. Continue coumadin dose per INR 2-3, monitor Hgb and transfuse for Hgb<8.0 4. DVT and GI prophylaxis, OOB to chair, analgesia as needed, IS, monitor for return of bowel function
[2017-11-30] MEDS ORDERED: WARFARIN NA 1 MG TABLET (FP) PO ONE (18:00)
[2017-11-30] MEDS: ZOLPIDEM TARTRATE 5 MG TABLET PO PRN (21:13)
[2017-11-30] MEDS: ATORVASTATIN CA 20 MG TABLET (FP) PO SCH (21:13)
[2017-12-01] MEDS: ALBUTEROL SO4 2.5/IPRATROPIUM 0.5 INH SOL 3 ML VIAL.NEB. NEB PRN ×3 (06:34→19:28)
[2017-12-01] MEDS: INSULIN SLIDING SCALE (NOVOLOG) 1 VIAL SQ SCH ×3 (06:52→16:27)
[2017-12-01 08:15] LABS: HEMATOCRIT 28.1 % (32.4-45.2); HEMOGLOBIN 9.1 GM/dL (10.7-15.3); MCH 31.4 pg (25.7-33.7); MCHC 32.4 g/dl (32.0-36.0); MEAN PLT VOLUME 8.5 fl (7.5-11.1); PLATELET COUNT 275 K/MM3 (134-434); RDW 15.3 % (11.6-15.6); WHITE BLOOD COUNT 7.6 K/mm3 (4.0-10.0)
[2017-12-01 08:35] LABS: ANION GAP 11 MMOL/L (8-16); BLOOD UREA NITROGEN 13 mg/dL (7-18); CALCIUM 8.9 mg/dL (8.5-10.1); CHLORIDE 99 mmol/L (98-107); CO2 33 mmol/L (21-32); CREATININE 0.8 mg/dL (0.55-1.3); GLUCOSE,RANDOM 131 mg/dL (74-106); POTASSIUM 3.1 mmol/L (3.5-5.1); SODIUM 143 mmol/L (136-145)
[2017-12-01 09:09] LABS: INR 2.61 (0.83-1.09); PROTHROMBIN TIME (PATIENT) 31.1 SEC (9.7-13.0)
[2017-12-01] MEDS ORDERED: POTASSIUM CHLORIDE TABS 20 MEQ TABLET.ER (FP) PO ONE ×2 (09:15→17:54)
[2017-12-01] MEDS ORDERED: KCL 10 MEQ IVPB 10 MEQ/100 ML INFUS.BAG IVPB SCH (09:15)
[2017-12-01] MEDS: VALSARTAN 80 MG TABLET (UD) PO SCH (09:25)
[2017-12-01] MEDS: FUROSEMIDE 40 MG/4 ML INJECTABLE VIAL IVPUSH SCH (09:26)
[2017-12-01] MEDS: CARVEDILOL 25 MG TABLET (FP) PO SCH ×2 (09:26→21:57)
[2017-12-01] MEDS: PANTOPRAZOLE 40 MG TABLET (FP) PO SCH (09:26)
[2017-12-01] MEDS: ANASTROZOLE 1 MG TABLET PO SCH (09:42)
--- NOTE | 2017-12-01 12:29 | PN ---
Progress Note, Physician History of Present Illness: PULMONARY ALERT,NO DISTRESS,-CP,-SOB - Current Medication List Current Medications: Active Medications Acetaminophen (Tylenol -) 650 mg PO Q6H PRN PRN Reason: PAIN LEVEL 4 - 6 Last Admin: 12/01/17 10:16 Dose: 650 mg Albuterol/Ipratropium (Duoneb -) 1 amp NEB Q4H PRN PRN Reason: SHORTNESS OF BREATH Last Admin: 12/01/17 06:34 Dose: 1 amp Anastrozole (Arimidex -) 1 mg PO DAILY [facility] Last Admin: 12/01/17 09:42 Dose: 1 mg Atorvastatin Calcium (Lipitor -) 20 mg PO HS [facility] Last Admin: 11/30/17 21:13 Dose: 20 mg Carvedilol (Coreg -) 25 mg PO BID [facility] Last Admin: 12/01/17 09:26 Dose: 25 mg Furosemide (Lasix Injection -) 40 mg IVPUSH DAILY [facility] Last Admin: 12/01/17 09:26 Dose: 40 mg Insulin Aspart (Novolog Vial Sliding Scale -) 1 vial SQ TIDAC [facility]; Protocol Last Admin: 12/01/17 11:33 Dose: 2 units Metformin HCl (Glucophage Xr -) 500 mg PO DAILY@0700 [facility] Last Admin: 12/01/17 06:52 Dose: 500 mg Ondansetron HCl (Zofran Injection) 4 mg IVPUSH Q6H PRN PRN Reason: NAUSEA AND/OR VOMITING Oxycodone HCl (Roxicodone -) 5 mg PO Q6H PRN PRN Reason: PAIN LEVEL 7 - 10 Last Admin: 11/30/17 06:47 Dose: 5 mg Pantoprazole Sodium (Protonix -) 40 mg PO DAILY [facility] Last Admin: 12/01/17 09:26 Dose: 40 mg Valsartan (Diovan -) 80 mg PO DAILY [facility] Last Admin: 12/01/17 09:25 Dose: 80 mg Zolpidem Tartrate (Ambien -) 5 mg PO HS PRN PRN Reason: INSOMNIA Last Admin: 11/30/17 21:13 Dose: 5 mg - Objective Vital Signs: Vital Signs Temperature 97.5 F L 12/01/17 10:00 Pulse Rate 80 12/01/17 10:00 Respiratory Rate 20 12/01/17 10:00 Blood Pressure 155/68 12/01/17 10:00 O2 Sat by Pulse Oximetry (%) 98 11/30/17 21:00 Constitutional: Yes: Well Nourished, Calm Eyes: Yes: WNL HENT: Yes: WNL Neck: Yes: WNL Cardiovascular: Yes: Regular Rate and Rhythm, S1, S2 Respiratory: Yes: Diminished Gastrointestinal: Yes: Normal Bowel Sounds, Soft Extremities: Yes: WNL Edema: No Labs: CBC, BMP 12/01/17 06:20 12/01/17 06:20 INR, PTT INR 2.61 (0.83-1.09) H 12/01/17 06:20 Problem List - Problems (1) Acute kidney injury Code(s): N17.9 - ACUTE KIDNEY FAILURE, UNSPECIFIED (2) Acute on chronic systolic congestive heart failure Code(s): I50.23 - ACUTE ON CHRONIC SYSTOLIC (CONGESTIVE) HEART FAILURE (3) COPD without exacerbation Code(s): J44.9 - CHRONIC OBSTRUCTIVE PULMONARY DISEASE, UNSPECIFIED (4) H/O: CVA (cerebrovascular accident) Code(s): Z86.73 - PRSNL HX OF TIA (TIA), AND CEREB INFRC W/O RESID DEFICITS Assessment/Plan A/P s/p Colostomy Reversal/SB resection Acute on Chronic Systolic Heart Failure Acute Kidney Injury COPD HTN Hyperlipidemia DM h/o CVA Likely Obstructive Sleep Apnea - pain control - incentive spirometry - lasix - monitor urine output, creatinine - anticoagulation when ok with surgery - OOB to chair - DVT prophylaxis - outpt PFTs, PSG DR CHACKO
--- NOTE | 2017-12-01 15:45 | PN ---
Progress Note, Physician Chief Complaint: Events noted Not in distress History of Present Illness: Patient was seen and examined in ICU this morning. Awake and alert. Chart was reviewed Denies chest pain, SOB or palpitations - Current Medication List Current Medications: Active Medications Acetaminophen (Tylenol -) 650 mg PO Q6H PRN PRN Reason: PAIN LEVEL 4 - 6 Last Admin: 12/01/17 10:16 Dose: 650 mg Albuterol/Ipratropium (Duoneb -) 1 amp NEB Q4H PRN PRN Reason: SHORTNESS OF BREATH Last Admin: 12/01/17 13:35 Dose: 1 amp Anastrozole (Arimidex -) 1 mg PO DAILY [facility] Last Admin: 12/01/17 09:42 Dose: 1 mg Atorvastatin Calcium (Lipitor -) 20 mg PO HS [facility] Last Admin: 11/30/17 21:13 Dose: 20 mg Carvedilol (Coreg -) 25 mg PO BID [facility] Last Admin: 12/01/17 09:26 Dose: 25 mg Furosemide (Lasix Injection -) 40 mg IVPUSH DAILY [facility] Last Admin: 12/01/17 09:26 Dose: 40 mg Insulin Aspart (Novolog Vial Sliding Scale -) 1 vial SQ TIDAC [facility]; Protocol Last Admin: 12/01/17 11:33 Dose: 2 units Metformin HCl (Glucophage Xr -) 500 mg PO DAILY@0700 [facility] Last Admin: 12/01/17 06:52 Dose: 500 mg Ondansetron HCl (Zofran Injection) 4 mg IVPUSH Q6H PRN PRN Reason: NAUSEA AND/OR VOMITING Oxycodone HCl (Roxicodone -) 5 mg PO Q6H PRN PRN Reason: PAIN LEVEL 7 - 10 Last Admin: 11/30/17 06:47 Dose: 5 mg Pantoprazole Sodium (Protonix -) 40 mg PO DAILY [facility] Last Admin: 12/01/17 09:26 Dose: 40 mg Valsartan (Diovan -) 80 mg PO DAILY [facility] Last Admin: 12/01/17 09:25 Dose: 80 mg Zolpidem Tartrate (Ambien -) 5 mg PO HS PRN PRN Reason: INSOMNIA Last Admin: 11/30/17 21:13 Dose: 5 mg - Objective Vital Signs: Vital Signs Temperature 98.1 F 12/01/17 14:22 Pulse Rate 74 12/01/17 14:22 Respiratory Rate 17 12/01/17 14:22 Blood Pressure 141/55 L 12/01/17 14:22 O2 Sat by Pulse Oximetry (%) 98 11/30/17 21:00 HENT: Yes: Atraumatic Neck: Yes: Supple Cardiovascular: Yes: Regular Rate and Rhythm, S1, S2 Respiratory: Yes: CTA Bilaterally Gastrointestinal: Yes: Normal Bowel Sounds, Soft. No: Tenderness Edema: No Labs: CBC, BMP 12/01/17 06:20 12/01/17 06:20 INR, PTT INR 2.61 (0.83-1.09) H 12/01/17 06:20 Problem List - Problems (1) Acute on chronic systolic congestive heart failure Code(s): I50.23 - ACUTE ON CHRONIC SYSTOLIC (CONGESTIVE) HEART FAILURE (2) COPD without exacerbation Code(s): J44.9 - CHRONIC OBSTRUCTIVE PULMONARY DISEASE, UNSPECIFIED (3) Colostomy in place Code(s): Z93.3 - COLOSTOMY STATUS (4) Diabetes mellitus type 2, noninsulin dependent Code(s): E11.9 - TYPE 2 DIABETES MELLITUS WITHOUT COMPLICATIONS (5) H/O: CVA (cerebrovascular accident) Code(s): Z86.73 - PRSNL HX OF TIA (TIA), AND CEREB INFRC W/O RESID DEFICITS (6) Hypertension Code(s): I10 - ESSENTIAL (PRIMARY) HYPERTENSION Qualifiers: Hypertension type: essential hypertension Qualified Code(s): I10 - Essential (primary) hypertension (7) Acute exacerbation of congestive heart failure Code(s): I50.9 - HEART FAILURE, UNSPECIFIED (8) Anemia Code(s): D64.9 - ANEMIA, UNSPECIFIED Qualifiers: Anemia type: unspecified type Qualified Code(s): D64.9 - Anemia, unspecified (9) Left renal artery stenosis Code(s): I70.1 - ATHEROSCLEROSIS OF RENAL ARTERY (10) Perforated viscus Code(s): R19.8 - OTH SYMPTOMS AND SIGNS INVOLVING THE DGSTV SYS AND ABDOMEN Assessment/Plan 1. Post colostomy reversal/small bowel resection 2. Acute on chronic LV systolic failure with pleural effusions 3. History of perforated sigmoid colon (pathology c/w ischemic colitis) post resection (Dwaine's procedure) 4. History of CVA with left MCA thrombus 5. COPD 6. HTN/HCVD 7. Hyperlipidemia 8. Anemia 9. Distal left renal artery stenosis (50-60%) 10. Type 2 DM 11. SIVA resolved PLAN: 1. Continue present therapy 2. Continue Carvedilol 25 bid, Lipitor 20 qhs, and Diovan 80 qd 3. Resume Coumadin post-op once hemostasis achieved, monitor Hgb and transfuse for Hgb<8.0 4. DVT and GI prophylaxis, OOB to chair, analgesia as needed Further plans are to follow Chandu Mahoney MD
--- NOTE | 2017-12-01 16:33 | PN ---
Progress Note, Physician History of Present Illness: Pt had colostomy and enterocutaneous fistula, now s/p takedown of both with SB resection and scar revision, was in ICU postoperatively for close monitoring of electrolyte, renal and fluid status, now on floor. Acute on chronic CHF diuresed preop, with chronic pleural effusions, using NC O2 to keep sats at least 93%. Reportedly drops into 80s on RA recently. CXR with congestive changes , pt is on IV lasix. Renal function improved/back to baseline after elevation. Pt reports feeling minimal pain, used pain med for IV K+ today, not abdominal pain. OOB to chair at least daily and ambulating with PT. No acute events overnight. PMD and Cardiology also following. Tolerating diabetic diet, had 2 soft BMs today. - Current Medication List Current Medications: Active Medications Acetaminophen (Tylenol -) 650 mg PO Q6H PRN PRN Reason: PAIN LEVEL 4 - 6 Last Admin: 12/01/17 10:16 Dose: 650 mg Albuterol/Ipratropium (Duoneb -) 1 amp NEB Q4H PRN PRN Reason: SHORTNESS OF BREATH Last Admin: 12/01/17 13:35 Dose: 1 amp Anastrozole (Arimidex -) 1 mg PO DAILY [facility] Last Admin: 12/01/17 09:42 Dose: 1 mg Atorvastatin Calcium (Lipitor -) 20 mg PO HS [facility] Last Admin: 11/30/17 21:13 Dose: 20 mg Carvedilol (Coreg -) 25 mg PO BID [facility] Last Admin: 12/01/17 09:26 Dose: 25 mg Furosemide (Lasix Injection -) 40 mg IVPUSH DAILY [facility] Last Admin: 12/01/17 09:26 Dose: 40 mg Insulin Aspart (Novolog Vial Sliding Scale -) 1 vial SQ TIDAC [facility]; Protocol Last Admin: 12/01/17 11:33 Dose: 2 units Metformin HCl (Glucophage Xr -) 500 mg PO DAILY@0700 [facility] Last Admin: 12/01/17 06:52 Dose: 500 mg Ondansetron HCl (Zofran Injection) 4 mg IVPUSH Q6H PRN PRN Reason: NAUSEA AND/OR VOMITING Oxycodone HCl (Roxicodone -) 5 mg PO Q6H PRN PRN Reason: PAIN LEVEL 7 - 10 Last Admin: 11/30/17 06:47 Dose: 5 mg Pantoprazole Sodium (Protonix -) 40 mg PO DAILY [facility] Last Admin: 12/01/17 09:26 Dose: 40 mg Valsartan (Diovan -) 80 mg PO DAILY [facility] Last Admin: 12/01/17 09:25 Dose: 80 mg Zolpidem Tartrate (Ambien -) 5 mg PO HS PRN PRN Reason: INSOMNIA Last Admin: 11/30/17 21:13 Dose: 5 mg - Objective Vital Signs: Vital Signs Temperature 98.1 F 12/01/17 14:22 Pulse Rate 74 12/01/17 14:22 Respiratory Rate 17 12/01/17 14:22 Blood Pressure 141/55 L 12/01/17 14:22 O2 Sat by Pulse Oximetry (%) 98 11/30/17 21:00 Constitutional: Yes: No Distress, Calm, Obese Eyes: Yes: EOM Intact, Other (right eye cloudy) HENT: Yes: Atraumatic, Normocephalic Cardiovascular: Yes: Regular Rate and Rhythm Respiratory: Yes: Regular, Diminished (right base), On Nasal O2. No: Wheezes Gastrointestinal: Yes: Normal Bowel Sounds, Soft, Abdomen, Obese, Hypoactive Bowel Sounds, Tenderness (incisional) ...Rectal Exam: Yes: Deferred Extremities: No: Cool, Cyanosis Integumentary: Yes: Incision (midline with mini). No: Jaundice, Rash Wound/Incision: Yes: Clean/Dry, Well Approximated, [place] Intact (midline), Dressing Dry and Intact (left x2 with small strikethrough), Dressing Removed ( left x2 and changed with 1/2" plain packing ribbon), Unapproximated (left x2, wounds clean and starting to granulate) Neurological: Yes: Alert, Oriented Labs: CBC, BMP 12/01/17 06:20 12/01/17 06:20 INR, PTT INR 2.61 (0.83-1.09) H 12/01/17 06:20 K+ low - repleted today Problem List - Problems (1) Colostomy in place Assessment/Plan: POD7 s/p colostomy reversal, takedown of entercutaneous fistula with small bowel resection, scar revision doing well tolerating diet, had 2 BMs back on home meds lasix per PMD, pulm, card INR therapeutic - PMD managing coumadin GI prophylaxis - PPI daily pain controlled - encourage tylenol prn over narcotic PT for ambulation and OOB changed dressings with 1/2" packing, wounds clean will need VNS for daily packing changes on discharge home had [facility] in past will be able to help 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 pt reports spending a lot of time lying down at home, because when she is up and walking around, she gets SOB encouraged IS use and sitting up in chair/OOB as tolerated Code(s): J44.9 - CHRONIC OBSTRUCTIVE PULMONARY DISEASE, UNSPECIFIED (5) Diabetes mellitus type 2, noninsulin dependent Assessment/Plan: back on metformin and SSI Code(s): E11.9 - TYPE 2 DIABETES MELLITUS WITHOUT COMPLICATIONS (6) H/O: CVA (cerebrovascular accident) Assessment/Plan: coumadin per PMD INR daily Code(s): Z86.73 - PRSNL HX OF TIA (TIA), AND CEREB INFRC W/O RESID DEFICITS (7) Hypertension Assessment/Plan: continue carvedilol, diovan, lasix per cardiology Code(s): I10 - ESSENTIAL (PRIMARY) HYPERTENSION Qualifiers: Hypertension type: essential hypertension Qualified Code(s): I10 - Essential (primary) hypertension (8) Cancer of left breast Assessment/Plan: resumed arimidex Code(s): C50.912 - MALIGNANT NEOPLASM OF UNSPECIFIED SITE OF LEFT FEMALE BREAST Qualifiers: Breast location: upper outer quadrant of breast Estrogen receptor status: positive Patient sex: female Qualified Code(s): C50.412 - Malignant neoplasm of upper-outer quadrant of left female breast (9) Depression Assessment/Plan: resumed wellbutrin Code(s): F32.9 - MAJOR DEPRESSIVE DISORDER, SINGLE EPISODE, UNSPECIFIED Qualifiers: Depression Type: reactive depression Qualified Code(s): F32.9 - Major depressive disorder, single episode, unspecified (10) Acute on chronic systolic congestive heart failure Assessment/Plan: cardiology, medicine notes appreciated following CXRs lasix per PMD Code(s): I50.23 - ACUTE ON CHRONIC SYSTOLIC (CONGESTIVE) HEART FAILURE (11) Bilateral pleural effusion Assessment/Plan: see above Code(s): J90 - PLEURAL EFFUSION, NOT ELSEWHERE CLASSIFIED
[2017-12-01] MEDS ORDERED: FUROSEMIDE 40 MG/4 ML INJECTABLE VIAL IVPUSH ONE (17:55)
[2017-12-01] MEDS ORDERED: WARFARIN NA 2 MG TABLET (UD) PO SCH (18:00)
--- NOTE | 2017-12-01 18:03 | PN ---
Progress Note (short form) - Note Progress Note: >>>>>>>>>>>>>>> medical note <<<<<<<<<<<< Current Medications Acetaminophen (Tylenol -) 650 mg PO Q6H PRN PRN Reason: PAIN LEVEL 4 - 6 Last Admin: 12/01/17 10:16 Dose: 650 mg Albuterol/Ipratropium (Duoneb -) 1 amp NEB Q4H PRN PRN Reason: SHORTNESS OF BREATH Last Admin: 12/01/17 13:35 Dose: 1 amp Anastrozole (Arimidex -) 1 mg PO DAILY [facility] Last Admin: 12/01/17 09:42 Dose: 1 mg Atorvastatin Calcium (Lipitor -) 20 mg PO HS [facility] Last Admin: 11/30/17 21:13 Dose: 20 mg Carvedilol (Coreg -) 25 mg PO BID [facility] Last Admin: 12/01/17 09:26 Dose: 25 mg Furosemide (Lasix Injection -) 40 mg IVPUSH DAILY [facility] Last Admin: 12/01/17 09:26 Dose: 40 mg Insulin Aspart (Novolog Vial Sliding Scale -) 1 vial SQ TIDAC [facility]; Protocol Last Admin: 12/01/17 16:27 Dose: Not Given Metformin HCl (Glucophage Xr -) 500 mg PO DAILY@0700 [facility] Last Admin: 12/01/17 06:52 Dose: 500 mg Ondansetron HCl (Zofran Injection) 4 mg IVPUSH Q6H PRN PRN Reason: NAUSEA AND/OR VOMITING Pantoprazole Sodium (Protonix -) 40 mg PO DAILY [facility] Last Admin: 12/01/17 09:26 Dose: 40 mg Valsartan (Diovan -) 80 mg PO DAILY [facility] Last Admin: 12/01/17 09:25 Dose: 80 mg Warfarin Sodium (Coumadin -) 4 mg PO DAILY@1800 [facility] Zolpidem Tartrate (Ambien -) 5 mg PO HS PRN PRN Reason: INSOMNIA Last Admin: 11/30/17 21:13 Dose: 5 mg Laboratory Results - last 24 hr 11/30/17 12/01/17 12/01/17 21:01 06:20 06:20 WBC 7.6 RBC 2.90 L Hgb 9.1 L Hct 28.1 L MCV 97.0 H MCH 31.4 MCHC 32.4 RDW 15.3 Plt Count 275 MPV 8.5 PT with INR 31.10 H INR 2.61 H Sodium Potassium Chloride Carbon Dioxide Anion Gap BUN Creatinine Creat Clearance w eGFR POC Glucometer 129 Random Glucose Calcium 12/01/17 12/01/17 12/01/17 06:20 06:43 11:30 WBC RBC Hgb Hct MCV MCH MCHC RDW Plt Count MPV PT with INR INR Sodium 143 Potassium 3.1 L Chloride 99 Carbon Dioxide 33 H Anion Gap 11 BUN 13 Creatinine 0.8 Creat Clearance w eGFR > 60 POC Glucometer 147 180 Random Glucose 131 H Calcium 8.9 12/01/17 16:26 WBC RBC Hgb Hct MCV MCH MCHC RDW Plt Count MPV PT with INR INR Sodium Potassium Chloride Carbon Dioxide Anion Gap BUN Creatinine Creat Clearance w eGFR POC Glucometer 129 Random Glucose Calcium Vital Signs Temperature 98.1 F 12/01/17 14:22 Pulse Rate 74 12/01/17 14:22 Respiratory Rate 17 12/01/17 14:22 Blood Pressure 141/55 L 12/01/17 14:22 O2 Sat by Pulse Oximetry (%) 96 12/01/17 09:00 CC: no new complaints ````````````````````` skin-some pallor heart--RR lungs--distant BS abd--BS quiet;multiple dressings present neuro--alert, coherent in NAD ext--no edema appreciated `````````````````````````````` Summ > s/p reversal of colostomy--as described in surgical procedure note; post Op day #7; mgment as per Dr Mitchell, diet tolerated, had BMs > ASHD--CXR still showing vasc congestion; oxygen sat is good with nasal oxygen ; off IVF; on IV Lasix; will get chest CT for better definition > anemia--H/h better; will check daily > low potassium--replenish as needed > COPD--stable clinically; seen by Pulmonary who feels she may have YESSY; would need sleep studies as OP > DM--glucose OK; BGM mostly under 200; on Metformin > Hx TIA/CVA--Back on a/c. To adjust dose as per INRs ~~~~~~~~~~~~~~~~ Dr Caputo Problem List - Problems (1) Preprocedural examination Code(s): Z01.818 - ENCOUNTER FOR OTHER PREPROCEDURAL EXAMINATION (2) Anemia Code(s): D64.9 - ANEMIA, UNSPECIFIED Qualifiers: Anemia type: unspecified type Qualified Code(s): D64.9 - Anemia, unspecified (3) COPD without exacerbation Code(s): J44.9 - CHRONIC OBSTRUCTIVE PULMONARY DISEASE, UNSPECIFIED (4) Cancer of left breast Code(s): C50.912 - MALIGNANT NEOPLASM OF UNSPECIFIED SITE OF LEFT FEMALE BREAST Qualifiers: Breast location: upper outer quadrant of breast Estrogen receptor status: positive Patient sex: female Qualified Code(s): C50.412 - Malignant neoplasm of upper-outer quadrant of left female breast (5) Diabetes mellitus type 2, noninsulin dependent Code(s): E11.9 - TYPE 2 DIABETES MELLITUS WITHOUT COMPLICATIONS (6) H/O: CVA (cerebrovascular accident) Code(s): Z86.73 - PRSNL HX OF TIA (TIA), AND CEREB INFRC W/O RESID DEFICITS (7) Anticoagulant long-term use Code(s): Z79.01 - HALF-WAY (CURRENT) USE OF 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 (8) Colostomy in place Code(s): Z93.3 - COLOSTOMY STATUS
[2017-12-01] MEDS: ATORVASTATIN CA 20 MG TABLET (FP) PO SCH (21:57)
[2017-12-01] MEDS: ZOLPIDEM TARTRATE 5 MG TABLET PO PRN (21:57)
[2017-12-02 07:00] LABS: HEMATOCRIT 25.9 % (32.4-45.2); HEMOGLOBIN 8.5 GM/dL (10.7-15.3); MCH 31.5 pg (25.7-33.7); MCHC 32.8 g/dl (32.0-36.0); MEAN CELL VOLUME 96.2 fl (80-96); MEAN PLT VOLUME 7.6 fl (7.5-11.1); PLATELET COUNT 236 K/MM3 (134-434); RBC 2.69 M/mm3 (3.60-5.2); RDW 15.1 % (11.6-15.6); WHITE BLOOD COUNT 6.9 K/mm3 (4.0-10.0)
[2017-12-02] MEDS: INSULIN SLIDING SCALE (NOVOLOG) 1 VIAL SQ SCH ×3 (07:01→17:39)
[2017-12-02] MEDS ORDERED: INSULIN (NOVOLOG) ASPART 100 UNITS/ML 10ML VIAL ONE ×3 (07:09→12:15)
[2017-12-02] MEDS ORDERED: INSULIN (LEVEMIR) 100 UNITS/ML UNITS SQ ONE (07:12)
[2017-12-02 07:13] LABS: INR 1.93 (0.83-1.09); PROTHROMBIN TIME (PATIENT) 22.9 SEC (9.7-13.0)
[2017-12-02 07:20] LABS: ANION GAP 8 MMOL/L (8-16); BLOOD UREA NITROGEN 16 mg/dL (7-18); CALCIUM 8.1 mg/dL (8.5-10.1); CHLORIDE 100 mmol/L (98-107); CO2 35 mmol/L (21-32); CREATININE 0.9 mg/dL (0.55-1.3); GLUCOSE,RANDOM 110 mg/dL (74-106); MAGNESIUM 1.6 mg/dL (1.8-2.4); POTASSIUM 3.1 mmol/L (3.5-5.1); SODIUM 143 mmol/L (136-145)
--- NOTE | 2017-12-02 12:10 | PN ---
Progress Note, Physician History of Present Illness: pulmonary alert,oob-chair,-resp distress - Current Medication List Current Medications: Active Medications Acetaminophen (Tylenol -) 650 mg PO Q6H PRN PRN Reason: PAIN LEVEL 4 - 6 Last Admin: 12/01/17 10:16 Dose: 650 mg Albuterol/Ipratropium (Duoneb -) 1 amp NEB Q4H PRN PRN Reason: SHORTNESS OF BREATH Last Admin: 12/01/17 19:28 Dose: 1 amp Anastrozole (Arimidex -) 1 mg PO DAILY [facility] Last Admin: 12/01/17 09:42 Dose: 1 mg Atorvastatin Calcium (Lipitor -) 20 mg PO HS [facility] Last Admin: 12/01/17 21:57 Dose: 20 mg Carvedilol (Coreg -) 25 mg PO BID [facility] Last Admin: 12/01/17 21:57 Dose: 25 mg Furosemide (Lasix Injection -) 40 mg IVPUSH DAILY [facility] Last Admin: 12/01/17 09:26 Dose: 40 mg Insulin Aspart (Novolog Vial Sliding Scale -) 1 vial SQ TIDAC [facility]; Protocol Last Admin: 12/02/17 07:01 Dose: Not Given Metformin HCl (Glucophage Xr -) 500 mg PO DAILY@0700 [facility] Last Admin: 12/02/17 07:01 Dose: 500 mg Ondansetron HCl (Zofran Injection) 4 mg IVPUSH Q6H PRN PRN Reason: NAUSEA AND/OR VOMITING Pantoprazole Sodium (Protonix -) 40 mg PO DAILY [facility] Last Admin: 12/01/17 09:26 Dose: 40 mg Valsartan (Diovan -) 80 mg PO DAILY [facility] Last Admin: 12/01/17 09:25 Dose: 80 mg Warfarin Sodium (Coumadin -) 4 mg PO DAILY@1800 [facility] Last Admin: 12/01/17 18:16 Dose: 4 mg Zolpidem Tartrate (Ambien -) 5 mg PO HS PRN PRN Reason: INSOMNIA Last Admin: 12/01/17 21:57 Dose: 5 mg - Objective Vital Signs: Vital Signs Temperature 97.9 F 12/02/17 06:00 Pulse Rate 80 12/02/17 06:00 Respiratory Rate 20 12/02/17 06:00 Blood Pressure 156/73 12/02/17 06:00 O2 Sat by Pulse Oximetry (%) 96 12/01/17 21:00 Constitutional: Yes: Well Nourished, Calm Eyes: Yes: WNL HENT: Yes: WNL Neck: Yes: Supple Cardiovascular: Yes: Pulse Irregular, S1, S2 Respiratory: Yes: Diminished Gastrointestinal: Yes: Normal Bowel Sounds, Soft Extremities: Yes: WNL Edema: No Labs: CBC, BMP 12/02/17 06:20 12/02/17 06:20 INR, PTT INR 1.93 (0.83-1.09) H 12/02/17 06:20 Problem List - Problems (1) Acute kidney injury Code(s): N17.9 - ACUTE KIDNEY FAILURE, UNSPECIFIED (2) Acute on chronic systolic congestive heart failure Code(s): I50.23 - ACUTE ON CHRONIC SYSTOLIC (CONGESTIVE) HEART FAILURE (3) COPD without exacerbation Code(s): J44.9 - CHRONIC OBSTRUCTIVE PULMONARY DISEASE, UNSPECIFIED (4) H/O: CVA (cerebrovascular accident) Code(s): Z86.73 - PRSNL HX OF TIA (TIA), AND CEREB INFRC W/O RESID DEFICITS Assessment/Plan A/P s/p Colostomy Reversal/SB resection Acute on Chronic Systolic Heart Failure Acute Kidney Injury COPD HTN Hyperlipidemia DM h/o CVA Likely Obstructive Sleep Apnea - pain control - incentive spirometry - iv lasix - monitor urine output, creatinine - anticoagulation - OOB to chair - DVT prophylaxis - outpt PFTs, PSG - sleep screen DR CHACKO
[2017-12-02] MEDS ORDERED: PT OWN MED DRAWER 7, Y5N ONE (12:14)
[2017-12-02] MEDS: FUROSEMIDE 40 MG/4 ML INJECTABLE VIAL IVPUSH SCH (12:22)
[2017-12-02] MEDS: ANASTROZOLE 1 MG TABLET PO SCH (12:23)
[2017-12-02] MEDS: CARVEDILOL 25 MG TABLET (FP) PO SCH ×2 (12:23→21:25)
[2017-12-02] MEDS: PANTOPRAZOLE 40 MG TABLET (FP) PO SCH (12:23)
[2017-12-02] MEDS: VALSARTAN 80 MG TABLET (UD) PO SCH (12:23)
[2017-12-02] MEDS ORDERED: POTASSIUM CHLORIDE TABS 20 MEQ TABLET.ER (FP) PO ONE ×2 (13:09→16:24)
--- NOTE | 2017-12-02 13:23 | PN ---
Progress Note, Physician History of Present Illness: POD#6 reversal of colostomy and SB resection, denies chest pain and dyspnea, reports BM on diabetic diet. - Current Medication List Current Medications: Active Medications Acetaminophen (Tylenol -) 650 mg PO Q6H PRN PRN Reason: PAIN LEVEL 4 - 6 Last Admin: 12/01/17 10:16 Dose: 650 mg Albuterol/Ipratropium (Duoneb -) 1 amp NEB Q4H PRN PRN Reason: SHORTNESS OF BREATH Last Admin: 12/01/17 19:28 Dose: 1 amp Anastrozole (Arimidex -) 1 mg PO DAILY [facility] Last Admin: 12/02/17 12:23 Dose: 1 mg Atorvastatin Calcium (Lipitor -) 20 mg PO HS [facility] Last Admin: 12/01/17 21:57 Dose: 20 mg Carvedilol (Coreg -) 25 mg PO BID [facility] Last Admin: 12/02/17 12:23 Dose: 25 mg Furosemide (Lasix Injection -) 40 mg IVPUSH DAILY [facility] Last Admin: 12/02/17 12:22 Dose: 40 mg Furosemide (Lasix Injection -) 40 mg IVPUSH ONCE ONE Stop: 12/02/17 16:01 Magnesium Sulfate/Dextrose 1 (gm/ Miscellaneous) 100 mls @ 100 mls/hr IVPB ONCE ONE Stop: 12/02/17 14:06 Insulin Aspart (Novolog Vial Sliding Scale -) 1 vial SQ TIDAC [facility]; Protocol Last Admin: 12/02/17 12:23 Dose: 2 units Metformin HCl (Glucophage Xr -) 500 mg PO DAILY@0700 [facility] Last Admin: 12/02/17 07:01 Dose: 500 mg Ondansetron HCl (Zofran Injection) 4 mg IVPUSH Q6H PRN PRN Reason: NAUSEA AND/OR VOMITING Pantoprazole Sodium (Protonix -) 40 mg PO DAILY [facility] Last Admin: 12/02/17 12:23 Dose: 40 mg Potassium Chloride (K-Dur -) 40 meq PO ONCE ONE Stop: 12/02/17 13:10 Valsartan (Diovan -) 80 mg PO DAILY [facility] Last Admin: 12/02/17 12:23 Dose: 80 mg Warfarin Sodium (Coumadin -) 4 mg PO DAILY@1800 [facility] Last Admin: 12/01/17 18:16 Dose: 4 mg Zolpidem Tartrate (Ambien -) 5 mg PO HS PRN PRN Reason: INSOMNIA Last Admin: 12/01/17 21:57 Dose: 5 mg - Objective Vital Signs: Vital Signs Temperature 98.3 F 12/02/17 10:00 Pulse Rate 87 12/02/17 10:00 Respiratory Rate 19 12/02/17 10:00 Blood Pressure 161/69 12/02/17 10:00 O2 Sat by Pulse Oximetry (%) 96 12/01/17 21:00 Constitutional: Yes: No Distress, Calm Neck: Yes: Supple Cardiovascular: Yes: Regular Rate and Rhythm Respiratory: Yes: Regular, Diminished, On Nasal O2 Gastrointestinal: Yes: Normal Bowel Sounds, Soft Edema: No Labs: CBC, BMP 12/02/17 06:20 12/02/17 06:20 INR, PTT INR 1.93 (0.83-1.09) H 12/02/17 06:20 - ....Imaging Cat Scan: Report Reviewed (12/01/2017 Large bilateral pleural effusions with mild congestion) Problem List - Problems (1) Acute exacerbation of congestive heart failure Code(s): I50.9 - HEART FAILURE, UNSPECIFIED (2) Anemia Code(s): D64.9 - ANEMIA, UNSPECIFIED Qualifiers: Anemia type: unspecified type Qualified Code(s): D64.9 - Anemia, unspecified (3) Anticoagulant long-term use Code(s): 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 (4) COPD (chronic obstructive pulmonary disease) Code(s): J44.9 - CHRONIC OBSTRUCTIVE PULMONARY DISEASE, UNSPECIFIED Qualifiers: COPD type: unspecified COPD Qualified Code(s): J44.9 - Chronic obstructive pulmonary disease, unspecified (5) Diabetes mellitus type 2, noninsulin dependent Code(s): E11.9 - TYPE 2 DIABETES MELLITUS WITHOUT COMPLICATIONS (6) H/O: CVA (cerebrovascular accident) Code(s): Z86.73 - PRSNL HX OF TIA (TIA), AND CEREB INFRC W/O RESID DEFICITS (7) Hypertension Code(s): I10 - ESSENTIAL (PRIMARY) HYPERTENSION Qualifiers: Hypertension type: essential hypertension Qualified Code(s): I10 - Essential (primary) hypertension (8) Left renal artery stenosis Code(s): I70.1 - ATHEROSCLEROSIS OF RENAL ARTERY Assessment/Plan 12/24/2016 Echo: Normal LV size with moderate decreased LV fxn, mild pericardial effusion, mild ASHLEY, mod MR, mild FL, TR 1. POD #8 colostomy reversal/SB resection 2. Acute on chronic LV systolic failure with pleural effusions 3. H/o perforated sigmoid colon (pathology c/w ischemic colitis) post resection (Dwaine's procedure) 4. History of CVA with left MCA thrombus now with subtherapeutic INR 5. COPD 6. HTN/HCVD 7. Hyperlipidemia 8. Anemia 9. 50-60% distal left renal artery stenosis 10. Type 2 DM 11. SIVA resolved PLAN: 1. IV diuresis with monitor renal function and electrolytes, replete K and Mg as you are 2. Continue carvedilol 25 bid, Lipitor 20 qhs, and Diovan 80 qd 3. Continue coumadin dose per INR 2-3, monitor Hgb and transfuse for Hgb<8.0 4. DVT and GI prophylaxis, OOB to chair, analgesia as needed, IS
[2017-12-02] MEDS ORDERED: MAGNESIUM SULF 50% (8.12 MEQ/2 ML-1 GM VIAL) IVPB ONE (13:45)
--- NOTE | 2017-12-02 15:48 | PN ---
Progress Note (short form) - Note Progress Note: medical Current Medications Acetaminophen (Tylenol -) 650 mg PO Q6H PRN PRN Reason: PAIN LEVEL 4 - 6 Last Admin: 12/01/17 10:16 Dose: 650 mg Albuterol/Ipratropium (Duoneb -) 1 amp NEB Q4H PRN PRN Reason: SHORTNESS OF BREATH Last Admin: 12/01/17 19:28 Dose: 1 amp Anastrozole (Arimidex -) 1 mg PO DAILY [facility] Last Admin: 12/02/17 12:23 Dose: 1 mg Atorvastatin Calcium (Lipitor -) 20 mg PO HS [facility] Last Admin: 12/01/17 21:57 Dose: 20 mg Carvedilol (Coreg -) 25 mg PO BID [facility] Last Admin: 12/02/17 12:23 Dose: 25 mg Furosemide (Lasix Injection -) 40 mg IVPUSH DAILY [facility] Last Admin: 12/02/17 12:22 Dose: 40 mg Furosemide (Lasix Injection -) 40 mg IVPUSH ONCE ONE Stop: 12/02/17 16:01 Insulin Aspart (Novolog Vial Sliding Scale -) 1 vial SQ TIDAC [facility]; Protocol Last Admin: 12/02/17 12:23 Dose: 2 units Metformin HCl (Glucophage Xr -) 500 mg PO DAILY@0700 [facility] Last Admin: 12/02/17 07:01 Dose: 500 mg Ondansetron HCl (Zofran Injection) 4 mg IVPUSH Q6H PRN PRN Reason: NAUSEA AND/OR VOMITING Pantoprazole Sodium (Protonix -) 40 mg PO DAILY [facility] Last Admin: 12/02/17 12:23 Dose: 40 mg Valsartan (Diovan -) 80 mg PO DAILY [facility] Last Admin: 12/02/17 12:23 Dose: 80 mg Warfarin Sodium (Coumadin -) 4 mg PO DAILY@1800 [facility] Last Admin: 12/01/17 18:16 Dose: 4 mg Zolpidem Tartrate (Ambien -) 5 mg PO HS PRN PRN Reason: INSOMNIA Last Admin: 12/01/17 21:57 Dose: 5 mg Laboratory Results - last 24 hr 12/01/17 12/02/17 12/02/17 16:26 06:20 06:20 WBC 6.9 RBC 2.69 L Hgb 8.5 L Hct 25.9 L MCV 96.2 H MCH 31.5 MCHC 32.8 RDW 15.1 Plt Count 236 MPV 7.6 D PT with INR 22.90 H INR 1.93 H Sodium Potassium Chloride Carbon Dioxide Anion Gap BUN Creatinine Creat Clearance w eGFR POC Glucometer 129 Random Glucose Calcium Magnesium 12/02/17 12/02/17 12/02/17 06:20 07:00 12:19 WBC RBC Hgb Hct MCV MCH MCHC RDW Plt Count MPV PT with INR INR Sodium 143 Potassium 3.1 L Chloride 100 Carbon Dioxide 35 H Anion Gap 8 BUN 16 Creatinine 0.9 Creat Clearance w eGFR > 60 POC Glucometer 129 165 Random Glucose 110 H Calcium 8.1 L Magnesium 1.6 L Vital Signs Temperature 97.6 F 12/02/17 14:55 Pulse Rate 82 12/02/17 14:55 Respiratory Rate 16 12/02/17 14:55 Blood Pressure 157/79 12/02/17 14:55 O2 Sat by Pulse Oximetry (%) 97 12/02/17 09:00 CC: no complaints ````````````````````` skin-some pallor heart--RR lungs--distant BS abd--BS present, normoactive neuro--alert, coherent in NAD `````````````````````````````` Summ > s/p reversal of colostomy--as described in surgical procedure note; post Op day #8; mgment as per Dr Mitchell, diet tolerated, had BMs > ASHD--chest CT shows significant pleural effusions R>L; oxygen sat is good with nasal oxygen; up dose of IV Lasix, but wishes to go home in AM even though I explained that the fluid would be better controlled with IV diuresis > hypoxia--on RA; may now need home oxygen > anemia--H/h under 9; will check daily > low potassium/mag--replenish as needed > COPD--stable clinically; seen by Pulmonary who feels she may have YESSY; would need sleep studies as OP > DM--glucose OK; BGM mostly under 200; on Metformin > Hx TIA/CVA--Back on a/c. To adjust dose as per INRs ~~~~~~~~~~~~~~~~ Dr Caputo Problem List - Problems (1) Preprocedural examination Code(s): Z01.818 - ENCOUNTER FOR OTHER PREPROCEDURAL EXAMINATION (2) Anemia Code(s): D64.9 - ANEMIA, UNSPECIFIED Qualifiers: Anemia type: unspecified type Qualified Code(s): D64.9 - Anemia, unspecified (3) COPD without exacerbation Code(s): J44.9 - CHRONIC OBSTRUCTIVE PULMONARY DISEASE, UNSPECIFIED (4) Cancer of left breast Code(s): C50.912 - MALIGNANT NEOPLASM OF UNSPECIFIED SITE OF LEFT FEMALE BREAST Qualifiers: Breast location: upper outer quadrant of breast Estrogen receptor status: positive Patient sex: female Qualified Code(s): C50.412 - Malignant neoplasm of upper-outer quadrant of left female breast (5) Diabetes mellitus type 2, noninsulin dependent Code(s): E11.9 - TYPE 2 DIABETES MELLITUS WITHOUT COMPLICATIONS (6) H/O: CVA (cerebrovascular accident) Code(s): Z86.73 - PRSNL HX OF TIA (TIA), AND CEREB INFRC W/O RESID DEFICITS (7) Anticoagulant long-term use Code(s): 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
[2017-12-02] MEDS ORDERED: FUROSEMIDE 40 MG/4 ML INJECTABLE VIAL IVPUSH ONE (16:00)
[2017-12-02] MEDS: ALBUTEROL SO4 2.5/IPRATROPIUM 0.5 INH SOL 3 ML VIAL.NEB. NEB PRN ×2 (16:43→20:58)
[2017-12-02 16:47] VITALS: BMI 31.4
[2017-12-02] MEDS ORDERED: MAGNESIUM OXIDE 400 MG TABLET (FP) PO ONE (17:04)
--- NOTE | 2017-12-02 17:56 | PN ---
Progress Note, Physician History of Present Illness: Pt had colostomy and enterocutaneous fistula, now s/p takedown of both with SB resection and scar revision; was in ICU postoperatively for close monitoring of electrolyte, renal and fluid status, now on floor. Acute on chronic CHF diuresed preop, with chronic pleural effusions, using NC O2 to keep sats at least 93%. Has been into 80s on RA more recently. CXR with congestive changes, pt is on 1-2x daily IV lasix. Also had chest CT last night with effusions R>L, atelectasis, congestion. Renal function improved/back to baseline after elevation. Pt reports feeling minimal pain. OOB to chair at least daily and to commode, and ambulating with PT. No acute events overnight. PMD and Cardiology also following. Tolerating diabetic diet, having soft BMs. Marginal intake at some meals - "I don't eat vegetables" though will take corn and peas. Not much fruit either. Having tuna salad now, diet pepsi, bread. - Current Medication List Current Medications: Active Medications Acetaminophen (Tylenol -) 650 mg PO Q6H PRN PRN Reason: PAIN LEVEL 4 - 6 Last Admin: 12/01/17 10:16 Dose: 650 mg Albuterol/Ipratropium (Duoneb -) 1 amp NEB Q4H PRN PRN Reason: SHORTNESS OF BREATH Last Admin: 12/02/17 16:43 Dose: 1 amp Anastrozole (Arimidex -) 1 mg PO DAILY [facility] Last Admin: 12/02/17 12:23 Dose: 1 mg Atorvastatin Calcium (Lipitor -) 20 mg PO HS [facility] Last Admin: 12/01/17 21:57 Dose: 20 mg Carvedilol (Coreg -) 25 mg PO BID [facility] Last Admin: 12/02/17 12:23 Dose: 25 mg Furosemide (Lasix Injection -) 40 mg IVPUSH DAILY [facility] Last Admin: 12/02/17 12:22 Dose: 40 mg Insulin Aspart (Novolog Vial Sliding Scale -) 1 vial SQ TIDAC [facility]; Protocol Last Admin: 12/02/17 17:39 Dose: Not Given Metformin HCl (Glucophage Xr -) 500 mg PO DAILY@0700 [facility] Last Admin: 12/02/17 07:01 Dose: 500 mg Ondansetron HCl (Zofran Injection) 4 mg IVPUSH Q6H PRN PRN Reason: NAUSEA AND/OR VOMITING Pantoprazole Sodium (Protonix -) 40 mg PO DAILY [facility] Last Admin: 12/02/17 12:23 Dose: 40 mg Valsartan (Diovan -) 80 mg PO DAILY [facility] Last Admin: 12/02/17 12:23 Dose: 80 mg Warfarin Sodium (Coumadin -) 5 mg PO DAILY@1800 [facility] Last Admin: 12/02/17 17:37 Dose: 5 mg Zolpidem Tartrate (Ambien -) 5 mg PO HS PRN PRN Reason: INSOMNIA Last Admin: 12/01/17 21:57 Dose: 5 mg - Objective Vital Signs: Vital Signs Temperature 97.6 F 12/02/17 14:55 Pulse Rate 82 12/02/17 14:55 Respiratory Rate 16 12/02/17 14:55 Blood Pressure 157/79 12/02/17 14:55 O2 Sat by Pulse Oximetry (%) 97 12/02/17 09:00 Constitutional: Yes: No Distress, Calm, Obese Eyes: Yes: EOM Intact, Other (R eye cloudy) HENT: Yes: Atraumatic, Normocephalic Cardiovascular: Yes: Regular Rate and Rhythm, Murmur Respiratory: Yes: Regular, Diminished (more right base), On Nasal O2. No: Wheezes Gastrointestinal: Yes: Normal Bowel Sounds, Soft, Abdomen, Obese. No: Distention, Tenderness (except at wound sites with dressing changes, incisionally) ...Rectal Exam: Yes: Deferred Musculoskeletal: No: Joint Stiffness, Joint Swelling Extremities: No: Cool, Cyanosis Integumentary: Yes: Incision (midline w/mini). No: Jaundice, Rash Wound/Incision: Yes: Clean/Dry, Well Approximated, Hamill Intact (midline), Dressing Dry and Intact (left x2 with dried strikethrough), Dressing Removed ( left x2 and repacked with 1/2" plain packing ribbon), Unapproximated (left x2), Other (faint pink at lower pole of midline incision - will monitor) Neurological: Yes: Alert, Oriented Psychiatric: Yes: Alert, Oriented Labs: CBC, BMP 12/02/17 06:20 12/02/17 06:20 INR, PTT INR 1.93 (0.83-1.09) H 12/02/17 06:20 - ....Imaging Cat Scan: Report Reviewed, Image Reviewed (images personally reviewed - large effusions, R>L, with associated atelectasis) Problem List - Problems (1) Colostomy in place Assessment/Plan: POD8 s/p colostomy reversal, takedown of entercutaneous fistula with small bowel resection, scar revision doing well tolerating diet, having BMs back on home meds lasix per PMD, pulm, card INR and coumadin per PMD GI prophylaxis - PPI daily pain controlled - encourage tylenol prn over narcotic PT for ambulation and OOB changed dressings with 1/2" packing, wounds clean will need VNS for daily packing changes on discharge home possible d/c home tomorrow discussed with Dr. 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 Assessment/Plan: see above dressing at old drain/fistula site changed clean, base appears red, no bleeding or active drainage will need VNS for daily packing changes on discharge home, as noted above Code(s): K63.2 - FISTULA OF INTESTINE (3) Anticoagulant long-term use Assessment/Plan: see above Code(s): Z79.01 - INTERMEDIATE (CURRENT) USE OF 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 (4) COPD without exacerbation Assessment/Plan: cardiology and medicine following pt with known pleural effusions, R>L NC O2 to keep sats >=93% (baseline on RA was mid-90s) - now dipping into 80s may need home O2 - will do pre/post O2 sats in am if home O2 needed, will arrange for possible d/c home tomorrow VNS should also check vitals and O2 sats during visits Code(s): J44.9 - CHRONIC OBSTRUCTIVE PULMONARY DISEASE, UNSPECIFIED (5) Diabetes mellitus type 2, noninsulin dependent Assessment/Plan: back on metformin and SSI Code(s): E11.9 - TYPE 2 DIABETES MELLITUS WITHOUT COMPLICATIONS (6) H/O: CVA (cerebrovascular accident) Assessment/Plan: coumadin per PMD INR daily Code(s): Z86.73 - PRSNL HX OF TIA (TIA), AND CEREB INFRC W/O RESID DEFICITS (7) Hypertension Assessment/Plan: continue carvedilol, diovan, lasix per cardiology Code(s): I10 - ESSENTIAL (PRIMARY) HYPERTENSION Qualifiers: Hypertension type: essential hypertension Qualified Code(s): I10 - Essential (primary) hypertension (8) Cancer of left breast Assessment/Plan: resumed arimidex Code(s): C50.912 - MALIGNANT NEOPLASM OF UNSPECIFIED SITE OF LEFT FEMALE BREAST Qualifiers: Breast location: upper outer quadrant of breast Estrogen receptor status: positive Patient sex: female Qualified Code(s): C50.412 - Malignant neoplasm of upper-outer quadrant of left female breast (9) Depression Assessment/Plan: resumed wellbutrin Code(s): F32.9 - MAJOR DEPRESSIVE DISORDER, SINGLE EPISODE, UNSPECIFIED Qualifiers: Depression Type: reactive depression Qualified Code(s): F32.9 - Major depressive disorder, single episode, unspecified (10) Acute on chronic systolic congestive heart failure Assessment/Plan: cardiology, medicine notes appreciated CT confirms effusions and atelectasis, congestive changes lasix per PMD with K+ repletion, Mg repletion Code(s): I50.23 - ACUTE ON CHRONIC SYSTOLIC (CONGESTIVE) HEART FAILURE (11) Bilateral pleural effusion Assessment/Plan: see above Code(s): J90 - PLEURAL EFFUSION, NOT ELSEWHERE CLASSIFIED
[2017-12-02] MEDS ORDERED: WARFARIN NA 5 MG TABLET (UD) PO SCH (18:00)
[2017-12-02] MEDS: ATORVASTATIN CA 20 MG TABLET (FP) PO SCH (21:25)
[2017-12-02] MEDS: ZOLPIDEM TARTRATE 5 MG TABLET PO PRN (21:25)
[2017-12-03] MEDS: INSULIN SLIDING SCALE (NOVOLOG) 1 VIAL SQ SCH ×3 (06:30→16:48)
[2017-12-03 08:08] LABS: HEMATOCRIT 27.4 % (32.4-45.2); HEMOGLOBIN 8.9 GM/dL (10.7-15.3); MCH 31.4 pg (25.7-33.7); MCHC 32.4 g/dl (32.0-36.0); MEAN CELL VOLUME 96.9 fl (80-96); MEAN PLT VOLUME 8.2 fl (7.5-11.1); PLATELET COUNT 307 K/MM3 (134-434); RBC 2.82 M/mm3 (3.60-5.2); RDW 14.8 % (11.6-15.6); WHITE BLOOD COUNT 7.4 K/mm3 (4.0-10.0)
[2017-12-03 08:28] LABS: ANION GAP 8 MMOL/L (8-16); BLOOD UREA NITROGEN 16 mg/dL (7-18); CALCIUM 8.9 mg/dL (8.5-10.1); CHLORIDE 99 mmol/L (98-107); CO2 35 mmol/L (21-32); CREATININE 1.1 mg/dL (0.55-1.3); GLUCOSE,RANDOM 131 mg/dL (74-106); MAGNESIUM 2.1 mg/dL (1.8-2.4); POTASSIUM 3.8 mmol/L (3.5-5.1); SODIUM 143 mmol/L (136-145)
[2017-12-03 09:13] LABS: INR 1.88 (0.83-1.09); PROTHROMBIN TIME (PATIENT) 22.3 SEC (9.7-13.0)
--- NOTE | 2017-12-03 10:50 | DS ---
Physical Examination Vital Signs: Vital Signs Temperature 97.5 F L 12/03/17 10:00 Pulse Rate 74 12/03/17 10:00 Respiratory Rate 18 12/03/17 10:00 Blood Pressure 140/67 12/03/17 10:00 O2 Sat by Pulse Oximetry (%) 97 12/02/17 21:00 sats on NC O2 2L Findings/Remarks: Seen and examined in room, voided and had muddy BM on commode. Moving well. No c /o pain. Tolerating diet. Respiratory to do pre/post O2 sats to eval for possible home O2 prior to discharge. VNS arranged - making sure they could start tomorrow. Constitutional: Yes: No Distress, Calm, Obese Eyes: Yes: EOM Intact, Other (right eye cloudy) HENT: Yes: Atraumatic, Normocephalic Cardiovascular: Yes: Regular Rate and Rhythm, Murmur Respiratory: Yes: Regular, Diminished (right > left, mostly at base), On Nasal O2, SOB on Exertion (mild). No: Wheezes Gastrointestinal: Yes: Normal Bowel Sounds, Soft, Abdomen, Obese. No: Tenderness (except incisional w/dressing changes) ...Rectal Exam: Yes: Deferred Renal/: No: Escobar Present, Incontinence Extremities: No: Cool, Cyanosis Edema: No Integumentary: Yes: Incision (midline w/maria eugenia). No: Jaundice, Rash Wound/Incision: Yes: Clean/Dry, Well Approximated (except at one spot where staple is out - inferior aspect, small bit of serous leakage - left dry gauze dressing over site, no purulence, no sign infection, tiny skin gap only), Narberth Intact (except one in inferior half - removed), Dressing Dry and Intact (left x 2), Dressing Removed (left x 2 - changed with 1/2" plain packing gauze) , Unapproximated (left x 2 - wounds clean, red centeno, starting to granulate, fascia intact) Neurological: Yes: Alert, Oriented. 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 (Acute) H/O: CVA (cerebrovascular accident) (Acute) Hypertension (Acute) Pre-operative cardiovascular examination (Acute) Preprocedural examination (Acute) Scar condition and fibrosis of skin (Acute) Hypoxemia (Acute) Procedures: Principal: reversal of colostomy, takedown of enterocutaneous fistula, scar revision Hospital Course: 66yo obese F with multiple medical problems, with colostomy since Nov 2016, enterocutaneous fistula, admitted one day preop for bowel prep and fluid and electrolyte management, including diuresis for acute on chronic CHF, had colostomy reversal with enterocutaneous fistula takedown and scar revision . She received perioperative antibiotics. She was in ICU postoperatively for first few days, for fluid management, with Escobar and NGT until she began passing gas, when NG was removed. She required nasal cannula oxygen most of her stay to keep sats >92%, as her home baseline was low to mid 90s on RA, but in hospital she kept dropping into 80s on RA. Before leaving ICU, she was restarted on Lasix with good effect, though her chronic pleural effusions persist, R>L. She was started on clear liquids and advanced slowly as bowel function resumed, and she is passing soft/muddy stool from below now, tolerating diabetic/Na restricted diet. Sugars have been acceptable. Medicine and cardiology followed her from admission, Drs. Caputo and Chandu Mahoney, as well as pulmonary, Dr. Alatorre and colleagues. Residual open stoma site and drain/ fistula site wounds have been packed daily with packing gauze, and VNS is arranged to continue dressings and wound care at home. One staple is out in the inferior aspect of her incision with slight serous drainage, and dry dressings are to be continued there as well until it seals. Respiratory is checking pre and post-exertion O2 saturations to determine if she qualifies for home oxygen prior to discharge. A chest CT was done confirming pleural effusions with atelectasis and congestive changes during her stay. Pain was controlled, initially with BODY LINER, then po meds, which she is using now only rarely prn ( Tylenol). Escobar was removed after transfer to the floor, and she has used bedside commode successfully. Physical therapy ambulated with her regularly. She will follow up with surgery next week for staple removal, PMD early next week, and cardiology as directed. Sleep study was done last night per pt, and she will f/u with Pulmonology also. She will be d/c home today once O2 needs are clarified and achieved, and VNS is confirmed to start tomorrow. She will need home oxygen, which is being arranged and will be available at home on discharge. Time spent on discharge: 45 minutes Condition: Improved - Instructions Diet, Activity, Other Instructions: Postoperative instructions: You had a colostomy reversal with takedown of enterocutaneous fistula and scar revision on 11/24/[address] Isreal Mitchell of [facility]. Activity: Resume your usual activities gradually, but no heavy exertion or lifting more than 10-15 pounds for 4-6 weeks. You may shower daily, just pat the incision areas dry. No bath or swimming until skin incisions have healed. Maria Eugenia should not need to be recovered with any dressings, unless you have been told otherwise. Eat lightly at first, but advance to your usual diet as tolerated. Check your sugars regularly and keep a record. Weigh yourself regularly and keep a record to take to your primary and heart doctors. WOUND CARE: Visiting nurse should come to help with daily dressings for two left -sided wounds: 1/2" plain packing ribbon to each daily, covered with small folded gauze and tape. When the wounds get smaller, change to 1/4" packing. It is ok to shower with the dressings and packing off and out, as long as they are repacked shortly after. Keep a gauze over the small opening between maria eugenia near the lower part of the incision as well, until it stops draining. Pain: For pain, you may use Tylenol (acetaminophen) 1-2 pills every 6 hours as needed. Do not take more than 4000 mg of acetaminophen in a day. Take medications as prescribed or indicated on the labeling. Follow-up: Call Dr. Mitchell's office at [phone] to make your postop appointment (Thursday in approximately 2 weeks after surgery as advised). Clinic is held in the [facility] on the first floor of [facility]. Call the office if you have: * increasing pain not responsive to pain medication * fever of 101F or higher * vomiting * unusual or increasing bleeding or drainage from wounds * increasing redness or swelling at wound sites Also, see Dr. Caputo next week as scheduled, and Dr. Mahoney within 3 weeks. You should also call to follow up with Pulmonology as advised to follow up on sleep study and be seen in clinic. Referrals: Cesario Alatorre MD [Staff Physician] - Lukas Caputo MD [Staff Physician] - Chandu Mahoney MD [Staff Physician] - Disposition: HOME - Home Medications Comprehensive Discharge Medication List: Ambulatory Orders Anastrozole [Arimidex -] 1 mg PO DAILY 01/17/17 Atorvastatin Calcium 20 mg PO HS 01/17/17 Bupropion HCl [Wellbutrin -] 75 mg PO BID 01/17/17 Carvedilol 25 mg PO BID 01/17/17 Cyanocobalamin [Vitamin B12 -] 1,000 mcg PO DAILY 01/17/17 Furosemide 80 mg PO DAILY 01/17/17 Pantoprazole Sodium [Protonix] 40 mg PO DAILY 01/17/17 Insulin Sliding Scale [Novolog Vial Sliding Scale -] 1 vial SQ TIDAC units Warfarin Na [Coumadin -] 5 mg PO DAILY@1800 tablet 01/28/17 Zolpidem Tartrate [Ambien] 5 mg PO HS PRN #30 tablet MDD 1 01/28/17 Metformin HCl [Glucophage] 1,000 mg PO BID 11/23/17 Acetaminophen [Tylenol .Regular Strength -] 650 mg PO Q6H PRN tablet 12/03/17 Losartan 50 mg PO DAILY 12/03/17 K-Dur 10 mEq PO DAILY 12/03/17
[2017-12-03] MEDS: PANTOPRAZOLE 40 MG TABLET (FP) PO SCH (10:57)
[2017-12-03] MEDS: VALSARTAN 80 MG TABLET (UD) PO SCH (10:57)
[2017-12-03] MEDS: ANASTROZOLE 1 MG TABLET PO SCH (10:57)
[2017-12-03] MEDS: CARVEDILOL 25 MG TABLET (FP) PO SCH (10:57)
[2017-12-03] MEDS: FUROSEMIDE 40 MG/4 ML INJECTABLE VIAL IVPUSH SCH (10:58)
[2017-12-03] MEDS ORDERED: INSULIN (NOVOLOG) ASPART 100 UNITS/ML 10ML VIAL ONE (11:20)
--- NOTE | 2017-12-03 12:52 | PN ---
Progress Note (short form) - Note Progress Note: Overall appears better. Less SOB. No CP. Tolerating PO intake. Intake & Output 11/30/17 12/01/17 12/02/17 12/03/17 23:59 23:59 23:59 23:59 Intake Total 950 1250 1050 Balance 950 1250 1050 Weight 172 lb 11.2 oz 172 lb 4 oz 170 lb 6 oz Last Vital Signs Temp Pulse Resp BP Pulse Ox 97.5 F L 95 H 18 140/67 97 12/03/17 10:00 12/03/17 11:57 12/03/17 10:00 12/03/17 10:00 12/03/17 11:57 Active Medications Acetaminophen (Tylenol -) 650 mg PO Q6H PRN PRN Reason: PAIN LEVEL 4 - 6 Last Admin: 12/01/17 10:16 Dose: 650 mg Albuterol/Ipratropium (Duoneb -) 1 amp NEB Q4H PRN PRN Reason: SHORTNESS OF BREATH Last Admin: 12/02/17 20:58 Dose: 1 amp Anastrozole (Arimidex -) 1 mg PO DAILY [facility] Last Admin: 12/03/17 10:57 Dose: 1 mg Atorvastatin Calcium (Lipitor -) 20 mg PO HS [facility] Last Admin: 12/02/17 21:25 Dose: 20 mg Carvedilol (Coreg -) 25 mg PO BID [facility] Last Admin: 12/03/17 10:57 Dose: 25 mg Furosemide (Lasix Injection -) 40 mg IVPUSH DAILY [facility] Last Admin: 12/03/17 10:58 Dose: 40 mg Insulin Aspart (Novolog Vial Sliding Scale -) 1 vial SQ TIDAC [facility]; Protocol Last Admin: 12/03/17 12:21 Dose: 4 units Metformin HCl (Glucophage Xr -) 500 mg PO DAILY@0700 [facility] Last Admin: 12/03/17 06:31 Dose: 500 mg Ondansetron HCl (Zofran Injection) 4 mg IVPUSH Q6H PRN PRN Reason: NAUSEA AND/OR VOMITING Pantoprazole Sodium (Protonix -) 40 mg PO DAILY [facility] Last Admin: 12/03/17 10:57 Dose: 40 mg Valsartan (Diovan -) 80 mg PO DAILY [facility] Last Admin: 12/03/17 10:57 Dose: 80 mg Warfarin Sodium (Coumadin -) 5 mg PO DAILY@1800 [facility] Last Admin: 12/02/17 17:37 Dose: 5 mg Zolpidem Tartrate (Ambien -) 5 mg PO HS PRN PRN Reason: INSOMNIA Last Admin: 12/02/17 21:25 Dose: 5 mg Gen: NAD at rest Heart: RRR Lung: Bibasilar rales, no wheeze Abd: soft, nontender Ext: no edema Laboratory Results - last 24 hr 12/02/17 12/02/17 12/03/17 12:19 17:35 06:29 WBC RBC Hgb Hct MCV MCH MCHC RDW Plt Count MPV PT with INR INR Sodium Potassium Chloride Carbon Dioxide Anion Gap BUN Creatinine Creat Clearance w eGFR POC Glucometer 165 145 125 Random Glucose Calcium Magnesium 12/03/17 12/03/17 12/03/17 07:30 07:30 07:30 WBC 7.4 RBC 2.82 L Hgb 8.9 L Hct 27.4 L MCV 96.9 H MCH 31.4 MCHC 32.4 RDW 14.8 Plt Count 307 D MPV 8.2 PT with INR 22.30 H INR 1.88 H Sodium 143 Potassium 3.8 Chloride 99 Carbon Dioxide 35 H Anion Gap 8 BUN 16 Creatinine 1.1 Creat Clearance w eGFR 49.39 POC Glucometer Random Glucose 131 H Calcium 8.9 Magnesium 2.1 12/03/17 11:03 WBC RBC Hgb Hct MCV MCH MCHC RDW Plt Count MPV PT with INR INR Sodium Potassium Chloride Carbon Dioxide Anion Gap BUN Creatinine Creat Clearance w eGFR POC Glucometer 202 Random Glucose Calcium Magnesium A/P s/p Colostomy Reversal/SB resection Acute on Chronic Systolic Heart Failure Acute Kidney Injury COPD HTN Hyperlipidemia DM h/o CVA Likely Obstructive Sleep Apnea Severe OSAS with an RDI of 47.7 per hour - Lasix - pain control - incentive spirometry - outpatient PFTs - Will need outpatient CPAP titration - Patient has qualified for home O2 which is being arranged - D/C planning Dr Cormier
[2017-12-03 14:17] VITALS: BP 131/56; PULSE 74; TEMP 98
--- NOTE | 2017-12-03 14:26 | PN ---
Progress Note, Physician History of Present Illness: POD#7 reversal of colostomy and SB resection, denies chest pain and dyspnea, reports BM on diabetic diet. - Current Medication List Current Medications: Active Medications Acetaminophen (Tylenol -) 650 mg PO Q6H PRN PRN Reason: PAIN LEVEL 4 - 6 Last Admin: 12/01/17 10:16 Dose: 650 mg Albuterol/Ipratropium (Duoneb -) 1 amp NEB Q4H PRN PRN Reason: SHORTNESS OF BREATH Last Admin: 12/02/17 20:58 Dose: 1 amp Anastrozole (Arimidex -) 1 mg PO DAILY [facility] Last Admin: 12/03/17 10:57 Dose: 1 mg Atorvastatin Calcium (Lipitor -) 20 mg PO HS [facility] Last Admin: 12/02/17 21:25 Dose: 20 mg Carvedilol (Coreg -) 25 mg PO BID [facility] Last Admin: 12/03/17 10:57 Dose: 25 mg Furosemide (Lasix Injection -) 40 mg IVPUSH DAILY [facility] Last Admin: 12/03/17 10:58 Dose: 40 mg Insulin Aspart (Novolog Vial Sliding Scale -) 1 vial SQ TIDAC [facility]; Protocol Last Admin: 12/03/17 12:21 Dose: 4 units Metformin HCl (Glucophage Xr -) 500 mg PO DAILY@0700 [facility] Last Admin: 12/03/17 06:31 Dose: 500 mg Ondansetron HCl (Zofran Injection) 4 mg IVPUSH Q6H PRN PRN Reason: NAUSEA AND/OR VOMITING Pantoprazole Sodium (Protonix -) 40 mg PO DAILY [facility] Last Admin: 12/03/17 10:57 Dose: 40 mg Valsartan (Diovan -) 80 mg PO DAILY [facility] Last Admin: 12/03/17 10:57 Dose: 80 mg Warfarin Sodium (Coumadin -) 5 mg PO DAILY@1800 [facility] Last Admin: 12/02/17 17:37 Dose: 5 mg Zolpidem Tartrate (Ambien -) 5 mg PO HS PRN PRN Reason: INSOMNIA Last Admin: 12/02/17 21:25 Dose: 5 mg - Objective Vital Signs: Vital Signs Temperature 98 F 12/03/17 14:15 Pulse Rate 74 12/03/17 14:15 Respiratory Rate 18 12/03/17 14:15 Blood Pressure 131/56 L 12/03/17 14:15 O2 Sat by Pulse Oximetry (%) 97 12/03/17 11:57 Constitutional: Yes: No Distress, Calm Neck: Yes: Supple Cardiovascular: Yes: Regular Rate and Rhythm Respiratory: Yes: Regular, Diminished Gastrointestinal: Yes: Normal Bowel Sounds, Soft Edema: No Labs: CBC, BMP 12/03/17 07:30 12/03/17 07:30 INR, PTT INR 1.88 (0.83-1.09) H 12/03/17 07:30 Problem List - Problems (1) Acute exacerbation of congestive heart failure Code(s): I50.9 - HEART FAILURE, UNSPECIFIED (2) Anemia Code(s): D64.9 - ANEMIA, UNSPECIFIED Qualifiers: Anemia type: unspecified type Qualified Code(s): D64.9 - Anemia, unspecified (3) Anticoagulant long-term use Code(s): Z79.01 - [place] (CURRENT) USE OF 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 (4) COPD (chronic obstructive pulmonary disease) Code(s): J44.9 - CHRONIC OBSTRUCTIVE PULMONARY DISEASE, UNSPECIFIED Qualifiers: COPD type: unspecified COPD Qualified Code(s): J44.9 - Chronic obstructive pulmonary disease, unspecified (5) Diabetes mellitus type 2, noninsulin dependent Code(s): E11.9 - TYPE 2 DIABETES MELLITUS WITHOUT COMPLICATIONS (6) H/O: CVA (cerebrovascular accident) Code(s): Z86.73 - PRSNL HX OF TIA (TIA), AND CEREB INFRC W/O RESID DEFICITS (7) Hypertension Code(s): I10 - ESSENTIAL (PRIMARY) HYPERTENSION Qualifiers: Hypertension type: essential hypertension Qualified Code(s): I10 - Essential (primary) hypertension (8) Left renal artery stenosis Code(s): I70.1 - ATHEROSCLEROSIS OF RENAL ARTERY Assessment/Plan 12/24/2016 Echo: Normal LV size with moderate decreased LV fxn, mild pericardial effusion, mild ASHLEY, mod MR, mild TN, TR 1. POD #8 colostomy reversal/SB resection 2. Acute on chronic LV systolic failure with pleural effusions 3. H/o perforated sigmoid colon (pathology c/w ischemic colitis) post resection (Dwaine's procedure) 4. History of CVA with left MCA thrombus now with subtherapeutic INR 5. COPD 6. HTN/HCVD 7. Hyperlipidemia 8. Anemia 9. 50-60% distal left renal artery stenosis 10. Type 2 DM 11. SIVA resolved 12. Severe OSAS with an RDI of 47.7 per hour PLAN: 1. IV diuresis with monitor renal function and electrolytes, replete K and Mg as you are 2. Continue carvedilol 25 bid, Lipitor 20 qhs, and Diovan 80 qd 3. Continue coumadin dose per INR 2-3, monitor Hgb and transfuse for Hgb<8.0 4. DVT and GI prophylaxis, OOB to chair, analgesia as needed, home O2, outpatient CPAP titration -
[2017-12-03] MEDS ORDERED: WARFARIN NA 5 MG TABLET (UD) PO ONE (15:32)
--- NOTE | 2017-12-03 15:32 | PN ---
Progress Note (short form) - Note Progress Note: medical Current Medications Acetaminophen (Tylenol -) 650 mg PO Q6H PRN PRN Reason: PAIN LEVEL 4 - 6 Last Admin: 12/01/17 10:16 Dose: 650 mg Albuterol/Ipratropium (Duoneb -) 1 amp NEB Q4H PRN PRN Reason: SHORTNESS OF BREATH Last Admin: 12/02/17 20:58 Dose: 1 amp Anastrozole (Arimidex -) 1 mg PO DAILY [facility] Last Admin: 12/03/17 10:57 Dose: 1 mg Atorvastatin Calcium (Lipitor -) 20 mg PO HS [facility] Last Admin: 12/02/17 21:25 Dose: 20 mg Carvedilol (Coreg -) 25 mg PO BID [facility] Last Admin: 12/03/17 10:57 Dose: 25 mg Furosemide (Lasix Injection -) 40 mg IVPUSH DAILY [facility] Last Admin: 12/03/17 10:58 Dose: 40 mg Insulin Aspart (Novolog Vial Sliding Scale -) 1 vial SQ TIDAC [facility]; Protocol Last Admin: 12/03/17 12:21 Dose: 4 units Metformin HCl (Glucophage Xr -) 500 mg PO DAILY@0700 [facility] Last Admin: 12/03/17 06:31 Dose: 500 mg Ondansetron HCl (Zofran Injection) 4 mg IVPUSH Q6H PRN PRN Reason: NAUSEA AND/OR VOMITING Pantoprazole Sodium (Protonix -) 40 mg PO DAILY [facility] Last Admin: 12/03/17 10:57 Dose: 40 mg Valsartan (Diovan -) 80 mg PO DAILY [facility] Last Admin: 12/03/17 10:57 Dose: 80 mg Warfarin Sodium (Coumadin -) 5 mg PO DAILY@1800 [facility] Last Admin: 12/02/17 17:37 Dose: 5 mg Zolpidem Tartrate (Ambien -) 5 mg PO HS PRN PRN Reason: INSOMNIA Last Admin: 12/02/17 21:25 Dose: 5 mg Laboratory Results - last 24 hr 12/02/17 12/03/17 12/03/17 17:35 06:29 07:30 WBC 7.4 RBC 2.82 L Hgb 8.9 L Hct 27.4 L MCV 96.9 H MCH 31.4 MCHC 32.4 RDW 14.8 Plt Count 307 D MPV 8.2 PT with INR INR Sodium Potassium Chloride Carbon Dioxide Anion Gap BUN Creatinine Creat Clearance w eGFR POC Glucometer 145 125 Random Glucose Calcium Magnesium 12/03/17 12/03/17 12/03/17 07:30 07:30 11:03 WBC RBC Hgb Hct MCV MCH MCHC RDW Plt Count MPV PT with INR 22.30 H INR 1.88 H Sodium 143 Potassium 3.8 Chloride 99 Carbon Dioxide 35 H Anion Gap 8 BUN 16 Creatinine 1.1 Creat Clearance w eGFR 49.39 POC Glucometer 202 Random Glucose 131 H Calcium 8.9 Magnesium 2.1 Vital Signs Temperature 98 F 12/03/17 14:15 Pulse Rate 74 12/03/17 14:15 Respiratory Rate 18 12/03/17 14:15 Blood Pressure 131/56 L 12/03/17 14:15 O2 Sat by Pulse Oximetry (%) 97 12/03/17 11:57 CC: no complaints ````````````````````` skin-some pallor heart--RR lungs--distant BS abd--BS present, normoactive neuro--alert, coherent in NAD `````````````````````````````` Summ > s/p reversal of colostomy--as described in surgical procedure note; post Op day #9; and is ready to be d/c'd. > ASHD--chest CT shows significant pleural effusions R>L; is responding to IV Lasix but wishes to go home however, she will now need home oxygen > hypoxia--2nd vasc congestion & Pleural effusion of lungs; now need home oxygen > anemia--H/h stable; will check as OP > low potassium/mag--okay today; will check as OP > COPD--stable clinically; seen by Pulmonary who feels she may have YESSY; would need sleep studies as OP > DM--glucose OK; BGM mostly under 200; on Metformin > Hx TIA/CVA--Back on a/c. To adjust dose as per INRs ~~~~~~~~~~~~~~~~ Dr Caputo Problem List - Problems (1) Preprocedural examination Code(s): Z01.818 - ENCOUNTER FOR OTHER PREPROCEDURAL EXAMINATION (2) Anemia Code(s): D64.9 - ANEMIA, UNSPECIFIED Qualifiers: Anemia type: unspecified type Qualified Code(s): D64.9 - Anemia, unspecified (3) COPD without exacerbation Code(s): J44.9 - CHRONIC OBSTRUCTIVE PULMONARY DISEASE, UNSPECIFIED (4) Cancer of left breast Code(s): C50.912 - MALIGNANT NEOPLASM OF UNSPECIFIED SITE OF LEFT FEMALE BREAST Qualifiers: Breast location: upper outer quadrant of breast Estrogen receptor status: positive Patient sex: female Qualified Code(s): C50.412 - Malignant neoplasm of upper-outer quadrant of left female breast (5) Diabetes mellitus type 2, noninsulin dependent Code(s): E11.9 - TYPE 2 DIABETES MELLITUS WITHOUT COMPLICATIONS (6) H/O: CVA (cerebrovascular accident) Code(s): Z86.73 - PRSNL HX OF TIA (TIA), AND CEREB INFRC W/O RESID DEFICITS (7) Anticoagulant long-term use Code(s): Z79.01 - [facility]IV[facility] (CURRENT) USE OF 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 (8) Colostomy in place Code(s): Z93.3 - COLOSTOMY STATUS
[2017-12-03] MEDS ORDERED: CARVEDILOL 25 MG TABLET (FP) PO ONE (15:33)
== END 2017-12-03 18:32 | disposition home or self-care (01) | DRG 329 ==
LOC: JSAMEDAYSX 09:29 → J6S 10:00 → EDSTATUS 11-24 12:00 → JICU 11-24 22:11 → J5S 11-28 12:30
PROVIDERS: ADMIT Surgery; ATTEND Surgery
PROC: 0DSN0ZZ Reposition Sigmoid Colon, Open Approach (ICD-10-PCS; 2017-11-24)
PROC: 0DT80ZZ Resection of Small Intestine, Open Approach (ICD-10-PCS; principal; 2017-11-24 12:00)
DX: Z43.3 Encounter for attention to colostomy (principal); I50.23 Acute on chronic systolic (congestive) heart failure; N17.9 Acute kidney failure, unspecified; K63.2 Fistula of intestine; J44.1 Chronic obstructive pulmonary disease with (acute) exacerbation; I11.0 Hypertensive heart disease with heart failure; D64.9 Anemia, unspecified; I70.1 Atherosclerosis of renal artery; C50.412 Malignant neoplasm of upper-outer quadrant of left female breast; G47.33 Obstructive sleep apnea (adult) (pediatric); E11.9 Type 2 diabetes mellitus without complications; E78.5 Hyperlipidemia, unspecified; I25.10 Atherosclerotic heart disease of native coronary artery without angina pectoris; E86.0 Dehydration
CPT/HCPCS: 36415; 71045-TC-FY; 71046-TC-FY; 71250-TC; 80048; 80053; 82962; 83735; 83880; 84100; 85025; 85027; 85610; 86850; 86900; 86901; 88304-TC; 88307-TC; 93005; 93010; 94640; 94760; 94761; 97116-GP; 97161-GP; J0131; J1644; J7030; J7620

== ENCOUNTER 2018-01-26 07:11 | Inpatient (IN) | payer OTHER ==
[2018-01-26 07:29] VITALS: BMI 31.1
[2018-01-26] MEDS ORDERED: FUROSEMIDE 100 MG/10 ML INJECTABLE VIAL IVPB ONE (07:37)
[2018-01-26] MEDS ORDERED: FUROSEMIDE 40 MG/4 ML INJECTABLE VIAL ONE (08:05)
[2018-01-26 08:11] LABS: BASO % 0.6 % (0-2.0); EOS % 1.2 % (0-4.5); HEMOGLOBIN 8.7 GM/dL (10.7-15.3); MCH 32.1 pg (25.7-33.7); MCHC 33.5 g/dl (32.0-36.0); MEAN CELL VOLUME 95.9 fl (80-96); MEAN PLT VOLUME 7.6 fl (7.5-11.1); MONO % 4.4 % (3.8-10.2); NEUT % 85.8 % (42.8-82.8); PLATELET COUNT 336 K/MM3 (134-434); RBC 2.71 M/mm3 (3.60-5.2); RDW 16.6 % (11.6-15.6); WHITE BLOOD COUNT 10.5 K/mm3 (4.0-10.0)
--- NOTE | 2018-01-26 08:11 | PDOC ---
History of Present Illness - General Chief Complaint: Shortness of Breath Stated Complaint: SOB Time Seen by Provider: 01/26/18 07:17 History Source: Patient Exam Limitations: No Limitations - History of Present Illness Initial Comments: 01/26/18 07:46 67 yo female pmh DM, HTN, HLD, colostomy with reversal (Oct 2017), COPD (2L O2 dependant at home), CHF and recently diagnosed bilateral pleural effusions presents to the ed with 2 days of worsening SOB. Pt was told by PCP (Dr. Iyer) to come to the hospital 2 weeks ago to take care of her pleural effusion but she wanted to enjoy Thanksgiving and decided to stay home. 2 days ago pt noted worsening SOB without CP, edema or F/C/N/V. Past History - Past Medical History Allergies/Adverse Reactions: Allergies Allergy/AdvReac Type Severity Reaction Status Date / Time No Known Allergies Allergy Verified 01/26/18 07:28 Home Medications: Ambulatory Orders Anastrozole [Arimidex -] 1 mg PO DAILY 01/17/17 Atorvastatin Calcium 20 mg PO HS 01/17/17 Bupropion HCl [Wellbutrin -] 75 mg PO BID 01/17/17 Carvedilol 25 mg PO BID 01/17/17 Cyanocobalamin [Vitamin B12 -] 1,000 mcg PO DAILY 01/17/17 Furosemide 160 mg PO DAILY 01/17/17 Metformin HCl [Glucophage] 1,000 mg PO BID 11/23/17 Potassium Chloride [K-Dur -] 10 meq PO DAILY #30 tablet.er 12/03/17 Warfarin Na [Coumadin -] 5 mg PO DAILY@1800 #0 tablet 12/03/17 Losartan Potassium 25 mg PO DAILY 01/26/18 Anemia: No Asthma: No Cancer: Yes (BASAL CELL,Left Breast) Cardiac Disorders: Yes CVA: Yes (10/25/2012) COPD: Yes (O2 dependent) CHF: No DVT: No Dementia: No Diabetes: Yes GI Disorders: Yes Disorders: No HTN: Yes Hypercholesterolemia: Yes Liver Disease: No Seizures: No Thyroid Disease: No - Surgical History Abdominal Surgery: Yes Appendectomy: No Cardiac Surgery: No Cholecystectomy: No Lung Surgery: No Neurologic Surgery: No Orthopedic Surgery: No - Suicide/Smoking/Psychosocial Hx Smoking Status: Yes Smoking History: Former smoker Have you smoked in the past 12 months: No Number of Cigarettes Smoked Daily: 16 If you are a former smoker, when did you quit?: September 16, 2017 Information on smoking cessation initiated: No 'Breaking Loose' booklet given: 01/09/17 Hx Alcohol Use: No Drug/Substance Use Hx: No Substance Use Type: None Hx Substance Use Treatment: No Review of Systems - Review of Systems Constitutional: No: Chills, Fever Respiratory: Yes: Shortness of Breath. No: Productive cough Cardiac (ROS): No: Chest Pain, Edema ABD/GI: No: Constipated, Diarrhea, Nausea, Vomiting : No: Dysuria, Flank Pain Neurological: No: Weakness *Physical Exam - Vital Signs Last Vital Signs Temp Pulse Resp BP Pulse Ox 100.1 F H 114 H 36 H 171/81 H 100 01/26/18 07:24 01/26/18 07:24 01/26/18 07:24 01/26/18 07:24 01/26/18 07:24 - Physical Exam General Appearance: Yes: Nourished, Appropriately Dressed, Mild Distress ( sitting up in bed and on a non rebreather 6 L. Removed and put on home 2L without change in o2 from 100%) HEENT: positive: EOMI Respiratory/Chest: positive: Lungs Clear, Decreased Breath Sounds (at the bases) . negative: Accessory Muscle Use, Crackles, Wheezing Cardiovascular: positive: Regular Rhythm, S1, S2, Tachycardia. negative: Edema , JVD, Murmur Vascular Pulses: Dorsalis-Pedis (R): 3+, Doralis-Pedis (L): 3+ Gastrointestinal/Abdominal: positive: Normal Bowel Sounds, Flat, Soft. negative : Pulsatile Mass, Distended, Guarding, Rebound, Tenderness Extremity: positive: Normal Capillary Refill Integumentary: positive: Normal Color, Dry, Warm Neurologic: positive: Fully Oriented, Alert, Normal Mood/Affect, Normal Response ED Treatment Course - LABORATORY CBC & Chemistry Diagram: 01/26/18 08:00 01/26/18 08:00 - RADIOLOGY Radiology Studies Ordered: Category Date Time Status CHEST X-RAY PORTABLE* [RAD] Stat Radiology 01/26/18 07:34 Ordered Medical Decision Making - Medical Decision Making 67 yo female with CHF and recently diagnosed bilateral pleural effusions presents with 2 days of worsening SOB. PE: decreased breath sounds bilateral lung bases DDX: CHF, worsening pleural effusions 01/26/18 11:41 Dr. Tejada spoke with Dr. Estrada who agrees to have pt admitted to the Tele unit *DC/Admit/Observation/Transfer Diagnosis at time of Disposition: CHF (congestive heart failure) Qualifiers: Heart failure type: unspecified Heart failure chronicity: unspecified Qualified Code(s): I50.9 - Heart failure, unspecified - Referrals - Patient Instructions - Post Discharge Activity
[2018-01-26 08:21] LABS: INR 2.29 (0.83-1.09); PROTHROMBIN TIME (PATIENT) 27.2 SEC (9.7-13.0)
[2018-01-26 08:24] LABS: ACTIVATED PTT 36.7 SECONDS (25.2-36.5)
[2018-01-26 08:49] LABS: URINE APPEARANCE CLEAR; URINE BILIRUBIN NEGATIVE (<2.0 mg/dL); URINE COLOR STRAW; URINE GLUCOSE (UA) 1+ (NEGATIVE); URINE KETONE NEGATIVE (NEGATIVE); URINE LEUK ESTERASE TRACE (NEGATIVE); URINE NITRITE NEGATIVE (NEGATIVE); URINE PROTEIN NEGATIVE (NEGATIVE); URINE UROBILINOGEN NEGATIVE mg/dL (0.2-1.0)
[2018-01-26 08:51] LABS: ALBUMIN 3.1 g/dl (3.4-5.0); ALK PHOS 96 U/L (45-117); ANION GAP 6 MMOL/L (8-16); BILIRUBIN,TOTAL 0.3 mg/dL (0.2-1); BLOOD UREA NITROGEN 26 mg/dL (7-18); CALCIUM 8.9 mg/dL (8.5-10.1); CHLORIDE 104 mmol/L (98-107); CO2 30 mmol/L (21-32); CREATININE 1.2 mg/dL (0.55-1.3); GLUCOSE,RANDOM 245 mg/dL (74-106); SGOT/AST 28 U/L (15-37); SGPT/ALT 20 U/L (13-61); SODIUM 139 mmol/L (136-145); TOT PROT 6.9 g/dl (6.4-8.2)
[2018-01-26 08:59] LABS: EPI CELLS RARE /HPF (FEW); URINE HYALINE CAST 3 /lpf; URINE MUCUS RARE
--- NOTE | 2018-01-26 09:26 | PDOC ---
Attending Attestation - Resident Resident Name: Amadeo Hernandez - ED Attending Attestation I have performed the following: I have examined & evaluated the patient, The case was reviewed & discussed with the resident, I agree w/resident's findings & plan - HPI HPI: 01/26/18 09:20 67y/o F mmp including HTN, dm, copd, chf, recent colostomy reversal, chronic b/ l pleural effusions sent by Dr. Caputo for persistent effusions despite diuresis, persistent sob/chi. no chest pain, no f/c. - Physicial Exam PE: 01/26/18 09:21 low grade temp 100.1, tachycardia, hypertension, o2 sat normal on room air here. tachypnea. rectal temp 98.6 chronically ill appearing but alert, pleasant, speaking full sentences. R eye cataracts neck supple, no jvd s1s2 reg tachy decreased breath sounds both bases, R worse than L no edema/calf ttp - Medical Decision Making 01/26/18 09:26 67y/o F mmp here for persistent/worsening sob in setting of persistent pleural effusions. low grade temp, o2 sat wnl here. afebrile on rectal temp labs wnl, no leukocytosis cxr with persistent effusions initiate diuresis admit to [facility] consult with brill entered Heart Score/ECG Review #1 ECG reviewed & interpreted by me at: 07:40 General ECG Interpretation: Sinus Rhythm, Normal Rate (101), Normal Intervals ( qtc prolonged at 500), No acute ischemic changes (downsloping ST segment V5V6, LVH) Compared to previous ECG there are: No significant change #2 ECG reviewed & interpreted by me at: 08:53 General ECG Interpretation: Sinus Rhythm, Normal Rate (96), Normal Intervals, No acute ischemic changes (downsloping st segment V5V6) Compared to previous ECG there are: No significant change (11/23/17)
--- NOTE | 2018-01-26 12:28 | EKG ---
Test Reason : Blood Pressure : / mmHG Vent. Rate : 096 BPM Atrial Rate : 096 BPM P-R Int : 000 ms QRS Dur : 108 ms QT Int : 380 ms P-R-T Axes : 000 046 153 degrees QTc Int : 480 ms POOR DATA QUALITY, INTERPRETATION MAY BE ADVERSELY AFFECTED NORMAL SINUS RHYTHM INCOMPLETE LEFT BUNDLE BRANCH BLOCK ABNORMAL ECG Confirmed by MD MARIA VICTORIA, MACK ([id number]) on 01/26/2018 12:28:03 PM Referred By: Confirmed By:MACK IRENE MD
--- NOTE | 2018-01-26 13:17 | CON.CARD ---
Consult Consult Specialty:: Cardiology Referred by:: Dr. Lukas Caputo Reason for Consultation:: Cardiac evaluation - History of Present Illness Chief Complaint: Shortness of breath History of Present Illness: Patient is a 67 year old female well known to me with underlying history of DM, HTN/HCVD, CVA with MCA thrombus, hypercholesterolemia, nonischemic dilated CM with moderate LV systolic dysfunction and history of LV failure, distal left renal artery stenosis, perforated sigmoid colon due to c. diff megacolon s/p sigmoid resection with colostomy now reversed who presents with worsening shortness of breath over the past 2 days. She has been followed for small bilateral pleural effusion. She denies chest pain. 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 She denies paroxysmal nocturnal dyspnea or orthopnea. She denies fever or chills. She denies nausea, vomiting, diarrhea or abdominal pain. She denies headache or lightheadedness. 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) Cardio/Vascular: Yes: CHF (systolic), HTN (concern for L renal artery stenosis) , Hyperlipdemia Pulmonary: Yes: COPD Gastrointestinal: Yes: GERD Renal/: Yes: Other (L renal artery stenosis) Psych: Yes: Depression Musculoskeletal: Yes: Osteoarthritis ENT: Yes: Other (visually impaired) Endocrine: Yes: Diabetes Mellitus (NIDDM) Dermatology: Yes: Basal Cell (multiple sites removed) Additional Medical History: legally blind, 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 No: Colonoscopy (never had) - Alcohol/Substance Use Hx Alcohol Use: No History of Substance Use: reports: None - Smoking History Smoking history: Former smoker Have you smoked in the past 12 months: No Aproximately how many cigarettes per day: 16 If you are a former smoker, when did you quit?: September 16, 2017 - Social History Usual Living Arrangement: With Spouse (last several weeks since hospital d/c) ADL: Independent History of Recent Travel: No Home Medications - Allergies Allergies/Adverse Reactions: Allergies Allergy/AdvReac Type Severity Reaction Status Date / Time No Known Allergies Allergy Verified 01/26/18 07:28 - Home Medications Home Medications: Ambulatory Orders Anastrozole [Arimidex -] 1 mg PO DAILY 01/17/17 Atorvastatin Calcium 20 mg PO HS 01/17/17 Bupropion HCl [Wellbutrin -] 75 mg PO BID 01/17/17 Carvedilol 25 mg PO BID 01/17/17 Cyanocobalamin [Vitamin B12 -] 1,000 mcg PO DAILY 01/17/17 Furosemide 160 mg PO DAILY 01/17/17 Metformin HCl [Glucophage] 1,000 mg PO BID 11/23/17 Potassium Chloride [K-Dur -] 10 meq PO DAILY #30 tablet.er 12/03/17 Warfarin Na [Coumadin -] 5 mg PO DAILY@1800 #0 tablet 12/03/17 Losartan Potassium 25 mg PO DAILY 01/26/18 Family Disease History - Family Disease History Family Disease History: CA: Sister (breast CA) Review of Systems - Review of Systems Constitutional: denies: Chills, Fever Cardiovascular: reports: Palpitations, Shortness of Breath. denies: Chest Pain Respiratory: reports: SOB. denies: Cough, Hemoptysis, Orthopnea, PND, Wheezing Gastrointestinal: denies: Abdominal Pain, Constipation, Diarrhea, Melena, Nausea , Rectal Bleeding, Vomiting Genitourinary: denies: Dysuria, Hematuria Neurological: denies: Dizziness, Headache, Seizure, Syncope Vital Signs: Vital Signs Temperature 98.2 F 01/26/18 09:35 Pulse Rate 114 H 01/26/18 07:24 Respiratory Rate 36 H 01/26/18 07:24 Blood Pressure 171/81 H 01/26/18 07:24 O2 Sat by Pulse Oximetry (%) 100 01/26/18 08:00 Eyes: Yes: PERRL HENT: Yes: Atraumatic Neck: Yes: Supple Respiratory: Yes: Diminished (Base) Gastrointestinal: Yes: Normal Bowel Sounds, Soft. No: Tenderness Cardiovascular: Yes: Regular Rate and Rhythm JVD: No Carotid Bruit: No PMI: Non-Displaced Heart Sounds: Yes: S1, S2. No: Gallop Murmur: No: Systolic Murmur Edema: No - Other Data Labs, Other Data: CBC, BMP 01/26/18 08:00 01/26/18 08:00 INR, PTT INR 2.29 (0.83-1.09) H 01/26/18 08:00 Troponin, BNP 01/26/18 01/26/18 08:00 08:00 Troponin I < 0.02 B-Natriuretic Peptide 7270.4 H Laboratory Results - last 24 hr 01/26/18 01/26/18 01/26/18 08:00 08:00 08:00 WBC 10.5 H RBC 2.71 L Hgb 8.7 L Hct 26.0 L MCV 95.9 MCH 32.1 MCHC 33.5 RDW 16.6 H Plt Count 336 MPV 7.6 Absolute Neuts (auto) 9.0 H Neutrophils % 85.8 H Lymphocytes % 8.0 D Monocytes % 4.4 Eosinophils % 1.2 D Basophils % 0.6 Nucleated RBC % 0 PT with INR 27.20 H INR 2.29 H PTT (Actin FS) 36.7 H Sodium 139 Potassium 5.0 Chloride 104 Carbon Dioxide 30 Anion Gap 6 L BUN 26 H Creatinine 1.2 Creat Clearance w eGFR 44.54 Random Glucose 245 H Calcium 8.9 Total Bilirubin 0.3 AST 28 ALT 20 Alkaline Phosphatase 96 Creatine Kinase 60 Troponin I < 0.02 B-Natriuretic Peptide Total Protein 6.9 Albumin 3.1 L Urine Color Urine Appearance Urine pH Ur Specific [place] Urine Protein Urine Glucose (UA) Urine Ketones Urine Blood Urine Nitrite Urine Bilirubin Urine Urobilinogen Ur Leukocyte Esterase Urine WBC (Auto) Urine RBC (Auto) Ur Epithelial Cells Hyaline Casts Urine Mucus Blood Type Antibody Screen 01/26/18 01/26/18 01/26/18 08:00 08:00 08:00 WBC RBC Hgb Hct MCV MCH MCHC RDW Plt Count MPV Absolute Neuts (auto) Neutrophils % Lymphocytes % Monocytes % Eosinophils % Basophils % Nucleated RBC % PT with INR INR PTT (Actin FS) Sodium Potassium Chloride Carbon Dioxide Anion Gap BUN Creatinine Creat Clearance w eGFR Random Glucose Calcium Total Bilirubin AST ALT Alkaline Phosphatase Creatine Kinase Troponin I B-Natriuretic Peptide 7270.4 H Total Protein Albumin Urine Color Straw Urine Appearance Clear Urine pH 5.0 Ur Specific [place] 1.010 Urine Protein Negative Urine Glucose (UA) 1+ H Urine Ketones Negative Urine Blood 1+ H Urine Nitrite Negative Urine Bilirubin Negative Urine Urobilinogen Negative Ur Leukocyte Esterase Trace Urine WBC (Auto) 9 Urine RBC (Auto) 2 Ur Epithelial Cells Rare Hyaline Casts 3 Urine Mucus Rare Blood Type A POSITIVE Antibody Screen Negative NSR, incomplete LBBB Imaging - Results Chest X-ray: Report Reviewed (Minimal fluids) EKG: Report Reviewed Problem List - Problems (1) Hypercholesterolemia Code(s): E78.00 - PURE HYPERCHOLESTEROLEMIA, UNSPECIFIED (2) Acute on chronic systolic congestive heart failure Code(s): I50.23 - ACUTE ON CHRONIC SYSTOLIC (CONGESTIVE) HEART FAILURE (3) Anemia Code(s): D64.9 - ANEMIA, UNSPECIFIED Qualifiers: Anemia type: unspecified type Qualified Code(s): D64.9 - Anemia, unspecified (4) Anticoagulant long-term use Code(s): Z79.01 - [facility] (CURRENT) USE OF 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 (5) Bilateral pleural effusion Code(s): J90 - PLEURAL EFFUSION, NOT ELSEWHERE CLASSIFIED (6) COPD (chronic obstructive pulmonary disease) Code(s): J44.9 - CHRONIC OBSTRUCTIVE PULMONARY DISEASE, UNSPECIFIED Qualifiers: COPD type: unspecified COPD Qualified Code(s): J44.9 - Chronic obstructive pulmonary disease, unspecified (7) Diabetes mellitus type 2, noninsulin dependent Code(s): E11.9 - TYPE 2 DIABETES MELLITUS WITHOUT COMPLICATIONS (8) H/O: CVA (cerebrovascular accident) Code(s): Z86.73 - PRSNL HX OF TIA (TIA), AND CEREB INFRC W/O RESID DEFICITS (9) Hypertension Code(s): I10 - ESSENTIAL (PRIMARY) HYPERTENSION Qualifiers: Hypertension type: essential hypertension Qualified Code(s): I10 - Essential (primary) hypertension (10) Left renal artery stenosis Code(s): I70.1 - ATHEROSCLEROSIS OF RENAL ARTERY (11) Perforated sigmoid colon Code(s): K63.1 - PERFORATION OF INTESTINE (NONTRAUMATIC) Assessment/Plan 1. Acute on chronic LV systolic failure with small pleural effusion 2. Dyspnea due to above 3. History of CVA with left MCA thrombus 4. History of perforated sigmoid colon s/p sigmoidectomy and reversed colostomy 5. COPD with long smoking history 6. HTN 7. Hypercholesterolemia 8. Anemia 9. Type 2 DM 10. Renal artery stenosis PLAN: 1. Check medical record from office 2. Continue Carvedilol and Losartan 3. Continue Warfarin with following INR 4. Diuretics 5. Statin 6. Further cardiac work up to follow Chandu Mahoney MD
--- NOTE | 2018-01-26 14:25 | CON.PULM ---
Consult Consult Specialty:: PULMONARY Referred by:: Dr. Caputo Reason for Consultation:: shortness of breath - History of Present Illness Chief Complaint: shortness of breath History of Present Illness: 67yo female with h/o HTN, DM, hypercholesterolemia, COPD, chronic hypoxic respiratory failure on home O2, LV systolic dysfunction, h/o sigmoid resection who presents with worsening shortness of breath x 2 days. Denies chest pain or palpitations. No fevers, chills or sweats. Reports a nonproductive cough without wheezing. Was complaining of similar symptoms last week and was instructed to increase he lasix. Denies orthopnea or PND. 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: CVA (no residual) Cardio/Vascular: Yes: CHF (systolic), HTN (concern for L renal artery stenosis) , Hyperlipdemia Pulmonary: Yes: COPD Gastrointestinal: Yes: GERD Renal/: Yes: Other (L renal artery stenosis) Psych: Yes: Depression Musculoskeletal: Yes: Osteoarthritis ENT: Yes: Other (visually impaired) Endocrine: Yes: Diabetes Mellitus (NIDDM) Dermatology: Yes: Basal Cell (multiple sites removed) Additional Medical History: legally blind, 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 No: Colonoscopy (never had) - Alcohol/Substance Use Hx Alcohol Use: No History of Substance Use: reports: None - Smoking History Smoking history: Former smoker Have you smoked in the past 12 months: No Aproximately how many cigarettes per day: 16 If you are a former smoker, when did you quit?: September 16, 2017 - Social History Usual Living Arrangement: With Spouse (last several weeks since hospital d/c) ADL: Independent History of Recent Travel: No Home Medications - Allergies Allergies/Adverse Reactions: Allergies Allergy/AdvReac Type Severity Reaction Status Date / Time No Known Allergies Allergy Verified 01/26/18 07:28 - Home Medications Home Medications: Ambulatory Orders Anastrozole [Arimidex -] 1 mg PO DAILY 01/17/17 Atorvastatin Calcium 20 mg PO HS 01/17/17 Bupropion HCl [Wellbutrin -] 75 mg PO BID 01/17/17 Carvedilol 25 mg PO BID 01/17/17 Cyanocobalamin [Vitamin B12 -] 1,000 mcg PO DAILY 01/17/17 Furosemide 160 mg PO DAILY 01/17/17 Metformin HCl [Glucophage] 1,000 mg PO BID 11/23/17 Potassium Chloride [K-Dur -] 10 meq PO DAILY #30 tablet.er 12/03/17 Warfarin Na [Coumadin -] 5 mg PO DAILY@1800 #0 tablet 12/03/17 Losartan Potassium 25 mg PO DAILY 01/26/18 Family Disease History - Family Disease History Family Disease History: CA: Sister (breast CA) Review of Systems - Review of Systems Constitutional: reports: Weakness. denies: Chills, Fever Eyes: denies: Recent Change in Vision HENT: denies: Nasal Congestion, Throat Pain Neck: denies: Stiffness, Tenderness Cardiovascular: reports: Shortness of Breath. denies: Chest Pain, Palpitations Respiratory: reports: Cough, Exercise Intolerance, SOB on Exertion. denies: Hemoptysis, Wheezing Gastrointestinal: denies: Abdominal Pain, Nausea, Vomiting Genitourinary: denies: Dysuria, Hematuria Neurological: denies: Dizziness, Headache Endocrine: denies: Unexplained Weight Loss Physical Exam Vital Sings: Vital Signs Temperature 98.2 F 01/26/18 09:35 Pulse Rate 95 H 01/26/18 14:11 Respiratory Rate 16 01/26/18 14:11 Blood Pressure 126/82 01/26/18 14:11 O2 Sat by Pulse Oximetry (%) 99 01/26/18 14:11 Constitutional: Yes: Calm Eyes: Yes: Conjunctiva Clear, EOM Intact HENT: Yes: Atraumatic, Normocephalic Neck: Yes: Supple, Trachea Midline Cardiovascular: Yes: Regular Rate and Rhythm Respiratory: Yes: Diminished (decreased breath sounds at the bases) ...Clubbing: No Gastrointestinal: Yes: Normal Bowel Sounds, Soft Edema: No Neurological: Yes: Alert, Oriented Labs: CBC, BMP 01/26/18 08:00 01/26/18 08:00 Imaging - Results Chest X-ray: Report Reviewed, Image Reviewed (pulmonary vascular congestion) Problem List - Problems (1) Acute on chronic systolic congestive heart failure Code(s): I50.23 - ACUTE ON CHRONIC SYSTOLIC (CONGESTIVE) HEART FAILURE (2) COPD (chronic obstructive pulmonary disease) Code(s): J44.9 - CHRONIC OBSTRUCTIVE PULMONARY DISEASE, UNSPECIFIED Qualifiers: COPD type: unspecified COPD Qualified Code(s): J44.9 - Chronic obstructive pulmonary disease, unspecified (3) Diabetes mellitus type 2, noninsulin dependent Code(s): E11.9 - TYPE 2 DIABETES MELLITUS WITHOUT COMPLICATIONS (4) Hypertension Code(s): I10 - ESSENTIAL (PRIMARY) HYPERTENSION Qualifiers: Hypertension type: essential hypertension Qualified Code(s): I10 - Essential (primary) hypertension Assessment/Plan Acute on Chronic Systolic Heart Failure COPD Chronic Hypoxic Respiratory Failure h/o CVA with Left MCA thrombus HTN DM Hypercholesterolemia h/o Sigmoidectomy - continue lasix - monitor urine output, creatinine - daily weights - LASHELL-I/ARB, beta criselda - O2 to keep SpO2 >90% - inhaled bronchodilators as needed - can defer systemic steroids at this time - continue anticoagulation Thank you for this consult Maurice Mas MD
--- NOTE | 2018-01-26 18:28 | HP ---
Admitting History and Physical - Primary Care Physician PCP: Lukas Caputo - Admission Chief Complaint: SOB History of Present Illness: Patient is a 67 year old female w/ Hx history of DM, HTN/HCVD, past CVA (with MCA thrombus), hypercholesterolemia, non-ischemic dilated CM with moderate LV systolic dysfunction and history of LV failure, distal left renal artery stenosis, s/p Hartemann reversal several months ago (for perforated sigmoid colon due to c. diff megacolon in 2017)who presents with worsening shortness of breath over the past 2 days; worse in AM. She is known to have a chronic Bilat pleural effusions (R>L) for which she takes Lasix. She denies chest pain but reports palpitations especially in the scout sniper. She denies paroxysmal nocturnal dyspnea or orthopnea. She denies fever or chills. She denies nausea, vomiting, diarrhea or abdominal pain. She denies headache or lightheadedness, She became oxygen dependant following her recent discharge though does have a know Hx of COPD. 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: CVA (no residual) Cardiovascular: Yes: CHF (systolic), HTN (concern for L renal artery stenosis), Hyperlipdemia Pulmonary: Yes: COPD Gastrointestinal: Yes: GERD Renal/: Yes: Other (L renal artery stenosis) Heme/Onc: Yes: Anemia, Cancer (L breast, on arimidex), Other (Breast cancer) Psych: Yes: Depression Musculoskeletal: Yes: Osteoarthritis ENT: Yes: Other (visually impaired) Endocrine: Yes: Diabetes Mellitus (NIDDM) Dermatology: Yes: Basal Cell (multiple sites removed) - Past Surgical History Past Surgical History: Yes: Breast Biopsy (2005 and 06/16), Cataract Removal ( bilateral), Colectomy (sigmoidectomy with colostomy (Dwaine's) for perforated sigmoid), Colostomy (reversed). No: Colonoscopy (never had) - Advance Directives Advance Directives: Yes: Health Care Proxy - Smoking History Smoking history: Former smoker Have you smoked in the past 12 months: Yes Aproximately how many cigarettes per day: 20 If you are a former smoker, when did you quit?: September 16, 2017 - Alcohol/Substance Use Hx Alcohol Use: No History of Substance Use: reports: None - Social History Usual Living Arrangement: Yes: With Spouse ADL: Independent History of Recent Travel: No Home Medications - Allergies Allergies/Adverse Reactions: Allergies Allergy/AdvReac Type Severity Reaction Status Date / Time No Known Allergies Allergy Verified 01/26/18 07:28 - Home Medications Home Medications: Ambulatory Orders Anastrozole [Arimidex -] 1 mg PO DAILY 01/17/17 Atorvastatin Calcium 20 mg PO HS 01/17/17 Bupropion HCl [Wellbutrin -] 75 mg PO BID 01/17/17 Carvedilol 25 mg PO BID 01/17/17 Cyanocobalamin [Vitamin B12 -] 1,000 mcg PO DAILY 01/17/17 Furosemide 160 mg PO DAILY 01/17/17 Metformin HCl [Glucophage] 1,000 mg PO BID 11/23/17 Potassium Chloride [K-Dur -] 10 meq PO DAILY #30 tablet.er 12/03/17 Warfarin Na [Coumadin -] 5 mg PO DAILY@1800 #0 tablet 12/03/17 Losartan Potassium 25 mg PO DAILY 01/26/18 Family Disease History - Family Disease History Family Disease History: CA: Sister (breast CA) Review of Systems - Review of Systems Constitutional: reports: Weakness Eyes: reports: No Symptoms, Other (Rt eye blind; visually impaired) HENT: reports: No Symptoms Neck: reports: No Symptoms Cardiovascular: reports: Palpitations, Shortness of Breath Respiratory: reports: SOB Gastrointestinal: reports: No Symptoms Genitourinary: reports: No Symptoms Breasts: reports: No Symptoms Reported Musculoskeletal: reports: No Symptoms Integumentary: reports: Wound (abd; post surgical) Neurological: reports: No Symptoms Endocrine: reports: No Symptoms Hematology/Lymphatic: reports: No Symptoms Psychiatric: reports: No Symptoms Physical Examination Vital Signs: Vital Signs Temperature 97.3 F L 01/26/18 17:06 Pulse Rate 98 H 01/26/18 17:06 Respiratory Rate 18 01/26/18 17:06 Blood Pressure 116/64 01/26/18 17:06 O2 Sat by Pulse Oximetry (%) 100 01/26/18 17:06 Constitutional: Yes: Well Nourished, Calm Eyes: Yes: Other (Rt cornea clouded) HENT: Yes: WNL Neck: Yes: WNL Cardiovascular: Yes: Tachycardia Respiratory: Yes: Diminished Gastrointestinal: Yes: Normal Bowel Sounds, Soft ...Rectal Exam: Yes: Deferred Renal/: Yes: WNL Breast(s): Yes: Mass (Small subcut lesion at 12 oclock Lt breast) Musculoskeletal: Yes: WNL Extremities: Yes: WNL Edema: No Peripheral Pulses WNL: No Peripheral Pulses: Left Doralis Pedis: 1+, Right Dorsalis Pedis: 1+ Integumentary: Yes: WNL Wound/Incision: Yes: Other (has intact dressings on abdomen) Neurological: Yes: WNL ...Motor Strength: WNL Psychiatric: Yes: WNL Labs: CBC, BMP 01/26/18 08:00 01/26/18 08:00 CBCD WBC 10.5 K/mm3 (4.0-10.0) H 01/26/18 08:00 RBC 2.71 M/mm3 (3.60-5.2) L 01/26/18 08:00 Hgb 8.7 GM/dL (10.7-15.3) L 01/26/18 08:00 Hct 26.0 % (32.4-45.2) L 01/26/18 08:00 MCV 95.9 fl (80-96) 01/26/18 08:00 MCHC 33.5 g/dl (32.0-36.0) 01/26/18 08:00 RDW 16.6 % (11.6-15.6) H 01/26/18 08:00 Plt Count 336 K/MM3 (134-434) 01/26/18 08:00 MPV 7.6 fl (7.5-11.1) 01/26/18 08:00 CMP Sodium 139 mmol/L (136-145) 01/26/18 08:00 Potassium 5.0 mmol/L (3.5-5.1) 01/26/18 08:00 Chloride 104 mmol/L (98-107) 01/26/18 08:00 Carbon Dioxide 30 mmol/L (21-32) 01/26/18 08:00 Anion Gap 6 MMOL/L (8-16) L 01/26/18 08:00 BUN 26 mg/dL (7-18) H 01/26/18 08:00 Creatinine 1.2 mg/dL (0.55-1.3) 01/26/18 08:00 Creat Clearance w eGFR 44.54 (>60) 01/26/18 08:00 Random Glucose 245 mg/dL (74-106) H 01/26/18 08:00 Calcium 8.9 mg/dL (8.5-10.1) 01/26/18 08:00 Total Bilirubin 0.3 mg/dL (0.2-1) 01/26/18 08:00 AST 28 U/L (15-37) 01/26/18 08:00 ALT 20 U/L (13-61) 01/26/18 08:00 Alkaline Phosphatase 96 U/L (45-117) 01/26/18 08:00 Total Protein 6.9 g/dl (6.4-8.2) 01/26/18 08:00 Albumin 3.1 g/dl (3.4-5.0) L 01/26/18 08:00 CARDIAC ENZYMES Creatine Kinase 60 IU/L (26-192) 01/26/18 08:00 Troponin I < 0.02 ng/ml (0.00-0.05) 01/26/18 08:00 Urine Test Results Urine Color Straw 01/26/18 08:00 Urine Appearance Clear 01/26/18 08:00 Urine pH 5.0 (5.0-8.0) 01/26/18 08:00 Ur Specific [place] 1.010 (1.010-1.035) 01/26/18 08:00 Urine Protein Negative (NEGATIVE) 01/26/18 08:00 Urine Glucose (UA) 1+ (NEGATIVE) H 01/26/18 08:00 Urine Ketones Negative (NEGATIVE) 01/26/18 08:00 Urine Blood 1+ (NEGATIVE) H 01/26/18 08:00 Urine Nitrite Negative (NEGATIVE) 01/26/18 08:00 Urine Bilirubin Negative (<2.0 mg/dL) 01/26/18 08:00 Ur Leukocyte Esterase Trace (NEGATIVE) 01/26/18 08:00 Ur Epithelial Cells Rare /HPF (FEW) 01/26/18 08:00 Urine Mucus Rare 01/26/18 08:00 Imaging - Results Chest X-ray: Report Reviewed Problem List - Problems (1) CHF (congestive heart failure) Assessment/Plan: as shown by CXR and clincial presentation; now with less pleural effusions and greater pulm edema, as noted by BNP;;;;PLAN: IV Lasix; echo and cont BB Code(s): I50.9 - HEART FAILURE, UNSPECIFIED Qualifiers: Heart failure type: unspecified Heart failure chronicity: unspecified Qualified Code(s): I50.9 - Heart failure, unspecified (2) Anemia Assessment/Plan: developed anemia; post -OP; which seem to slowly be trending upward; previous studies show NL iron levels; on A/c for stroke prevention. There has never been direct evidence for GI bleed; but has not been a candidate for endoscopy due to tenuous Cardio/pulm condition: PLAN: cont monitoring count Code(s): D64.9 - ANEMIA, UNSPECIFIED Qualifiers: Anemia type: unspecified type Qualified Code(s): D64.9 - Anemia, unspecified (3) Hypercholesterolemia Assessment/Plan: cont statin Code(s): E78.00 - PURE HYPERCHOLESTEROLEMIA, UNSPECIFIED (4) COPD (chronic obstructive pulmonary disease) Assessment/Plan: longsatnding 2nd to tobacco use; now )2 dependent since her last hospitalization Code(s): J44.9 - CHRONIC OBSTRUCTIVE PULMONARY DISEASE, UNSPECIFIED Qualifiers: COPD type: unspecified COPD Qualified Code(s): J44.9 - Chronic obstructive pulmonary disease, unspecified (5) Anticoagulant long-term use Assessment/Plan: for stroke prevention; no documented episodes of ATF; cont a/c Code(s): Z79.01 - 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) USE OF 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 (6) Diabetes mellitus type 2, noninsulin dependent Assessment/Plan: longstanding; cont Metformin Code(s): E11.9 - TYPE 2 DIABETES MELLITUS WITHOUT COMPLICATIONS (7) Breast cancer, left Code(s): C50.912 - MALIGNANT NEOPLASM OF UNSPECIFIED SITE OF LEFT FEMALE BREAST (8) Cancer of left breast Assessment/Plan: controlled with arimidex; resume Code(s): C50.912 - MALIGNANT NEOPLASM OF UNSPECIFIED SITE OF LEFT FEMALE BREAST Qualifiers: Breast location: upper outer quadrant of breast Estrogen receptor status: positive Patient sex: female Qualified Code(s): C50.412 - Malignant neoplasm of upper-outer quadrant of left female breast (9) Open abdominal wall wound Assessment/Plan: post op; will order surg consult Code(s): S31.109A - UNSP OPN WND ABD WALL, UNSP Q W/O PENET PERIT CAV, INIT Qualifiers: Encounter type: subsequent encounter Qualified Code(s): S31.109D - Unspecified open wound of abdominal wall, unspecified quadrant without penetration into peritoneal cavity, subsequent encounter (10) Depression Assessment/Plan: managed with Wellbutrin; cont Code(s): F32.9 - MAJOR DEPRESSIVE DISORDER, SINGLE EPISODE, UNSPECIFIED Qualifiers: Depression Type: unspecified Qualified Code(s): F32.9 - Major depressive disorder, single episode, unspecified (11) Visual impairment Assessment/Plan: Rt eye Code(s): H54.7 - UNSPECIFIED VISUAL LOSS Assessment/Plan 67 YO oxygen dep F with Hx of ASHD; COPD in CHF who will require IV diuresis as high dose oral diuresis has not been fully effective ~~~~~~~~~~~~~~~~~~~~~~~~~~~~~~~~~~~ ~ Dr Caputo
[2018-01-26] MEDS ORDERED: WARFARIN NA 5 MG TABLET (UD) PO ONE (18:59)
[2018-01-26] MEDS: buPROPion HCL 75 MG TABLET PO SCH (20:51)
[2018-01-26] MEDS: CARVEDILOL 12.5 MG TABLET (FP) PO SCH (21:53)
[2018-01-26] MEDS: ATORVASTATIN CA 20 MG TABLET (FP) PO SCH (21:53)
[2018-01-26] MEDS: ZOLPIDEM TARTRATE 5 MG TABLET PO PRN (22:58)
[2018-01-27 07:19] LABS: HEMATOCRIT 23.9 % (32.4-45.2); HEMOGLOBIN 8.3 GM/dL (10.7-15.3); MCH 32.7 pg (25.7-33.7); MCHC 34.5 g/dl (32.0-36.0); MEAN CELL VOLUME 94.7 fl (80-96); MEAN PLT VOLUME 7.9 fl (7.5-11.1); PLATELET COUNT 309 K/MM3 (134-434); RBC 2.53 M/mm3 (3.60-5.2); RDW 16.5 % (11.6-15.6); WHITE BLOOD COUNT 6.8 K/mm3 (4.0-10.0)
[2018-01-27 07:35] LABS: INR 2.04 (0.83-1.09); PROTHROMBIN TIME (PATIENT) 24.3 SEC (9.7-13.0)
[2018-01-27 08:21] LABS: ANION GAP 6 MMOL/L (8-16); BLOOD UREA NITROGEN 30 mg/dL (7-18); CALCIUM 8.9 mg/dL (8.5-10.1); CHLORIDE 101 mmol/L (98-107); CO2 34 mmol/L (21-32); CREATININE 1.1 mg/dL (0.55-1.3); GLUCOSE,RANDOM 113 mg/dL (74-106); MAGNESIUM 2.3 mg/dL (1.8-2.4); POTASSIUM 4.6 mmol/L (3.5-5.1); SODIUM 141 mmol/L (136-145)
[2018-01-27] MEDS ORDERED: PT OWN MED DRAWER 7, Y5N ONE (08:37)
[2018-01-27] MEDS: ANASTROZOLE 1 MG TABLET PO SCH (09:49)
[2018-01-27] MEDS: buPROPion HCL 75 MG TABLET PO SCH ×2 (09:49→20:45)
[2018-01-27] MEDS: CARVEDILOL 12.5 MG TABLET (FP) PO SCH ×2 (09:49→21:49)
[2018-01-27] MEDS: FUROSEMIDE 40 MG/4 ML INJECTABLE VIAL IVPUSH SCH (09:50)
--- NOTE | 2018-01-27 12:36 | PN ---
Progress Note, Physician History of Present Illness: PULMONARY ALERT,OOB-CHAIR,COMFORTABLE,-RESP DISTRESS - Current Medication List Current Medications: Active Medications Albuterol/Ipratropium (Duoneb -) 1 amp NEB Q6H PRN PRN Reason: SHORTNESS OF BREATH Anastrozole (Arimidex -) 1 mg PO DAILY [facility] Last Admin: 01/27/18 09:49 Dose: 1 mg Atorvastatin Calcium (Lipitor -) 20 mg PO HS [facility] Last Admin: 01/26/18 21:53 Dose: 20 mg Bupropion HCl (Wellbutrin -) 75 mg PO 0800,2000 [facility] Last Admin: 01/27/18 09:49 Dose: 75 mg Carvedilol (Coreg -) 12.5 mg PO BID [facility] Last Admin: 01/27/18 09:49 Dose: 12.5 mg Furosemide (Lasix Injection -) 40 mg IVPUSH DAILY [facility] Last Admin: 01/27/18 09:50 Dose: 40 mg Metformin HCl (Glucophage Xr -) 500 mg PO DAILY@0700 [facility] Last Admin: 01/27/18 06:32 Dose: 500 mg Warfarin Sodium (Coumadin -) 5 mg PO DAILY@1800 [facility] Zolpidem Tartrate (Ambien -) 5 mg PO HS PRN PRN Reason: INSOMNIA Last Admin: 01/26/18 22:58 Dose: 5 mg - Objective Vital Signs: Vital Signs Temperature 97.9 F 01/27/18 06:00 Pulse Rate 80 01/27/18 06:00 Respiratory Rate 18 01/27/18 06:00 Blood Pressure 136/60 01/27/18 06:00 O2 Sat by Pulse Oximetry (%) 99 01/26/18 21:00 Constitutional: Yes: Well Nourished, Calm Eyes: Yes: WNL HENT: Yes: WNL Neck: Yes: WNL Cardiovascular: Yes: Pulse Irregular, S1, S2 Respiratory: Yes: Rales (BIBASILAR CRACKLES) Gastrointestinal: Yes: Normal Bowel Sounds, Soft Extremities: Yes: WNL Edema: No Labs: CBC, BMP 01/27/18 05:30 01/27/18 05:30 INR, PTT INR 2.04 (0.83-1.09) H 01/27/18 05:30 Assessment/Plan Problem List - Problems (1) Acute on chronic systolic congestive heart failure Code(s): I50.23 - ACUTE ON CHRONIC SYSTOLIC (CONGESTIVE) HEART FAILURE (2) COPD (chronic obstructive pulmonary disease) Code(s): J44.9 - CHRONIC OBSTRUCTIVE PULMONARY DISEASE, UNSPECIFIED Qualifiers: COPD type: unspecified COPD Qualified Code(s): J44.9 - Chronic obstructive pulmonary disease, unspecified (3) Diabetes mellitus type 2, noninsulin dependent Code(s): E11.9 - TYPE 2 DIABETES MELLITUS WITHOUT COMPLICATIONS (4) Hypertension Code(s): I10 - ESSENTIAL (PRIMARY) HYPERTENSION Qualifiers: Hypertension type: essential hypertension Qualified Code(s): I10 - Essential (primary) hypertension Assessment/Plan Acute on Chronic Systolic Heart Failure COPD Chronic Hypoxic Respiratory Failure h/o CVA with Left MCA thrombus HTN DM Hypercholesterolemia h/o Sigmoidectomy - lasix - monitor urine output, creatinine - daily weights - LASHELL-I/ARB, beta criselda - O2 to keep SpO2 >90% - inhaled bronchodilators as needed - anticoagulation DR CHACKO
--- NOTE | 2018-01-27 12:48 | PN ---
Progress Note (short form) - Note Progress Note: Current Medications Albuterol/Ipratropium (Duoneb -) 1 amp NEB Q6H PRN PRN Reason: SHORTNESS OF BREATH Anastrozole (Arimidex -) 1 mg PO DAILY [facility] Last Admin: 01/27/18 09:49 Dose: 1 mg Atorvastatin Calcium (Lipitor -) 20 mg PO HS [facility] Last Admin: 01/26/18 21:53 Dose: 20 mg Bupropion HCl (Wellbutrin -) 75 mg PO 0800,2000 [facility] Last Admin: 01/27/18 09:49 Dose: 75 mg Carvedilol (Coreg -) 12.5 mg PO BID [facility] Last Admin: 01/27/18 09:49 Dose: 12.5 mg Furosemide (Lasix Injection -) 40 mg IVPUSH DAILY [facility] Last Admin: 01/27/18 09:50 Dose: 40 mg Metformin HCl (Glucophage Xr -) 500 mg PO DAILY@0700 [facility] Last Admin: 01/27/18 06:32 Dose: 500 mg Warfarin Sodium (Coumadin -) 5 mg PO DAILY@1800 [facility] Zolpidem Tartrate (Ambien -) 5 mg PO HS PRN PRN Reason: INSOMNIA Last Admin: 01/26/18 22:58 Dose: 5 mg Laboratory Results - last 24 hr 01/27/18 01/27/18 01/27/18 05:30 05:30 05:30 WBC 6.8 RBC 2.53 L Hgb 8.3 L Hct 23.9 L MCV 94.7 MCH 32.7 MCHC 34.5 RDW 16.5 H Plt Count 309 MPV 7.9 PT with INR INR Sodium 141 Potassium 4.6 Chloride 101 Carbon Dioxide 34 H Anion Gap 6 L BUN 30 H Creatinine 1.1 Creat Clearance w eGFR 49.25 POC Glucometer Random Glucose 113 H Hemoglobin A1c % 5.1 Calcium 8.9 Magnesium 2.3 Ferritin 115.8 Creatine Kinase Troponin I TSH 4.05 H 01/27/18 01/27/18 01/27/18 05:30 05:30 06:33 WBC RBC Hgb Hct MCV MCH MCHC RDW Plt Count MPV PT with INR 24.30 H INR 2.04 H Sodium Potassium Chloride Carbon Dioxide Anion Gap BUN Creatinine Creat Clearance w eGFR POC Glucometer 142 Random Glucose Hemoglobin A1c % Calcium Magnesium Ferritin Creatine Kinase 36 Troponin I 0.02 TSH Vital Signs Temperature 97.9 F 01/27/18 06:00 Pulse Rate 80 01/27/18 06:00 Respiratory Rate 18 01/27/18 06:00 Blood Pressure 136/60 01/27/18 06:00 O2 Sat by Pulse Oximetry (%) 99 01/26/18 21:00 C:: no new complaints ``````````````````````````` skin--pallor eyes--anicteric lungs--BS distant; unlabored heart--RR abd--benign rectal--no anal canal masses felt; stool drown (sent for OB testing) ext--no edema neuro--fully alert; coherent `````````````````````````````````` Summ > CHF--as denoted by CXR; high BNP and clinical presentation PLAN: IV diuresis; rate control; may need to add ARB/LASHELL. Will await echo report > anemia--persistent; since her last hospitalization; will recheck stool for OB ; Ferritin is NL; await B12 > COPD--oxygen dependent 2nd Tobaxcco use. > Half-Way a/c--placed on a/c for CVA prevention from MCA thrombosis ~~~~~~~~~~~~ Dr Caputo Problem List - Problems (1) CHF (congestive heart failure) Code(s): I50.9 - HEART FAILURE, UNSPECIFIED Qualifiers: Heart failure type: unspecified Heart failure chronicity: unspecified Qualified Code(s): I50.9 - Heart failure, unspecified (2) Anemia Code(s): D64.9 - ANEMIA, UNSPECIFIED Qualifiers: Anemia type: unspecified type Qualified Code(s): D64.9 - Anemia, unspecified (3) Hypercholesterolemia Code(s): E78.00 - PURE HYPERCHOLESTEROLEMIA, UNSPECIFIED (4) COPD (chronic obstructive pulmonary disease) Code(s): J44.9 - CHRONIC OBSTRUCTIVE PULMONARY DISEASE, UNSPECIFIED Qualifiers: COPD type: unspecified COPD Qualified Code(s): J44.9 - Chronic obstructive pulmonary disease, unspecified (5) Anticoagulant long-term use Code(s): Z79.01 - NURSING HOME (CURRENT) USE OF 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 (6) Diabetes mellitus type 2, noninsulin dependent Code(s): E11.9 - TYPE 2 DIABETES MELLITUS WITHOUT COMPLICATIONS (7) Breast cancer, left Code(s): C50.912 - MALIGNANT NEOPLASM OF UNSPECIFIED SITE OF LEFT FEMALE BREAST (8) Cancer of left breast Code(s): C50.912 - MALIGNANT NEOPLASM OF UNSPECIFIED SITE OF LEFT FEMALE BREAST Qualifiers: Breast location: upper outer quadrant of breast Estrogen receptor status: positive Patient sex: female Qualified Code(s): C50.412 - Malignant neoplasm of upper-outer quadrant of left female breast (9) Open abdominal wall wound Code(s): S31.109A - UNSP OPN WND ABD WALL, UNSP Q W/O PENET PERIT CAV, INIT Qualifiers: Encounter type: subsequent encounter Qualified Code(s): S31.109D - Unspecified open wound of abdominal wall, unspecified quadrant without penetration into peritoneal cavity, subsequent encounter (10) Depression Code(s): F32.9 - MAJOR DEPRESSIVE DISORDER, SINGLE EPISODE, UNSPECIFIED Qualifiers: Depression Type: unspecified Qualified Code(s): F32.9 - Major depressive disorder, single episode, unspecified (11) Visual impairment Code(s): H54.7 - UNSPECIFIED VISUAL LOSS
--- NOTE | 2018-01-27 13:45 | PN ---
Progress Note, Physician History of Present Illness: Dyspnea improving with diuresis. - Current Medication List Current Medications: Active Medications Albuterol/Ipratropium (Duoneb -) 1 amp NEB Q6H PRN PRN Reason: SHORTNESS OF BREATH Anastrozole (Arimidex -) 1 mg PO DAILY [facility] Last Admin: 01/27/18 09:49 Dose: 1 mg Atorvastatin Calcium (Lipitor -) 20 mg PO HS [facility] Last Admin: 01/26/18 21:53 Dose: 20 mg Bupropion HCl (Wellbutrin -) 75 mg PO 0800,2000 [facility] Last Admin: 01/27/18 09:49 Dose: 75 mg Carvedilol (Coreg -) 12.5 mg PO BID [facility] Last Admin: 01/27/18 09:49 Dose: 12.5 mg Furosemide (Lasix Injection -) 40 mg IVPUSH DAILY [facility] Last Admin: 01/27/18 09:50 Dose: 40 mg Metformin HCl (Glucophage Xr -) 500 mg PO DAILY@0700 [facility] Last Admin: 01/27/18 06:32 Dose: 500 mg Warfarin Sodium (Coumadin -) 5 mg PO DAILY@1800 [facility] Zolpidem Tartrate (Ambien -) 5 mg PO HS PRN PRN Reason: INSOMNIA Last Admin: 01/26/18 22:58 Dose: 5 mg - Objective Vital Signs: Vital Signs Temperature 97.9 F 01/27/18 06:00 Pulse Rate 80 01/27/18 06:00 Respiratory Rate 18 01/27/18 06:00 Blood Pressure 136/60 01/27/18 06:00 O2 Sat by Pulse Oximetry (%) 99 01/26/18 21:00 Constitutional: Yes: No Distress, Calm Neck: Yes: Supple Cardiovascular: Yes: Regular Rate and Rhythm Respiratory: Yes: Regular, Diminished, On Nasal O2 Gastrointestinal: Yes: Normal Bowel Sounds, Soft Edema: No Labs: CBC, BMP 01/27/18 05:30 01/27/18 05:30 INR, PTT INR 2.04 (0.83-1.09) H 01/27/18 05:30 - ....Imaging EKG: Report Reviewed (Tele: NSR) Problem List - Problems (1) Acute on chronic systolic congestive heart failure Code(s): I50.23 - ACUTE ON CHRONIC SYSTOLIC (CONGESTIVE) HEART FAILURE (2) Acute respiratory failure with hypoxia and hypercapnia Code(s): J96.01 - ACUTE RESPIRATORY FAILURE WITH HYPOXIA; J96.02 - ACUTE RESPIRATORY FAILURE WITH HYPERCAPNIA (3) COPD (chronic obstructive pulmonary disease) Code(s): J44.9 - CHRONIC OBSTRUCTIVE PULMONARY DISEASE, UNSPECIFIED Qualifiers: COPD type: unspecified COPD Qualified Code(s): J44.9 - Chronic obstructive pulmonary disease, unspecified (4) Diabetes mellitus type 2, noninsulin dependent Code(s): E11.9 - TYPE 2 DIABETES MELLITUS WITHOUT COMPLICATIONS (5) H/O: CVA (cerebrovascular accident) Code(s): Z86.73 - PRSNL HX OF TIA (TIA), AND CEREB INFRC W/O RESID DEFICITS (6) Hypertension Code(s): I10 - ESSENTIAL (PRIMARY) HYPERTENSION Qualifiers: Hypertension type: essential hypertension Qualified Code(s): I10 - Essential (primary) hypertension Assessment/Plan 12/24/2016 Echo: Normal LV size with moderate decreased LV fxn, mild pericardial effusion, mild ASHLEY, mod MR, mild IL, TR 1. Acute on chronic LV systolic failure resolving 2. History of CVA with left MCA thrombus 3. History of perforated sigmoid colon s/p sigmoidectomy and reversed colostomy 4. COPD with Chronic Hypoxic Respiratory Failure and long smoking history 5. HTN 6. Hypercholesterolemia 7. Anemia 8. Type 2 DM 9. Renal artery stenosis PLAN: 1. IV diuresis with monior diuretic response, renal fxn and electrolytes 2. Check medical record from office, f/u repeat echo results 3. Continue Carvedilol 12.5 bid, Lipitor 20 qhs and resume losartan 25 qd 4. Continue Warfarin per INR 5. O2 to keep SpO2 >90%, inhaled bronchodilators as needed
--- NOTE | 2018-01-27 15:14 | CONSULT ---
Consult Consult Specialty:: General Surgery Referred by:: Dr. 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 Old drain/ fistula site LUQ was nearly healed at last clinic visit, just covering with gauze. Old stoma site was clean, granulating, healing in by secondary intention. Midline wound had new additional small open spot just superior to lower open wound, was being packed with 1/4" ribbon. Per pt, there has been daily drainage seeping through dressings if ABD pad is not used. Dressing last done day before yesterday. She has had intermittent SOB at home, and PMD is following with serial CXR, last 01/13/18, at which time pleural effusions were still prominent, and he urged her to come to hospital, but she opted to wait until after holiday and upped lasix dose instead. She has been on 160mg daily since then (was 80 and 120 alternating prior). Last couple days, she has had SOB again, and 2 nights ago, had trouble breathing while sleeping. She came in to ER yesterday, and CXR shows much less pleural effusions, but increased hilar congestion bilaterally. BNP was ~7000, previously 3-4K. She is admitted to medicine for management, and surgery is consulted to continue wound care at surgical sites. Her is doing daily dressing changes with VNS coming 1-2x weekly. She was last seen in my clinic 2 weeks ago. Seen and examined in room, at bedside, eating lunch. She got in bed for exam, and is moving fairly well. Eating well. Reports dark stool but no significant constipation or diarrhea. 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 [employer] RESOURCES: Yes: CVA (no residual) Cardio/Vascular: Yes: CHF (systolic), HTN (concern for L renal artery stenosis) , Hyperlipdemia Pulmonary: Yes: COPD, O2 Dependent (nasal cannula) Gastrointestinal: Yes: GERD, Other (megacolon, perforated 12/16) Renal/: Yes: Other (L renal artery stenosis) Reproductive: Yes: Postmenopausal Infectious Disease: Yes: C-Diff (possible - Ag positive, toxin neg) Psych: Yes: Anxiety, Depression Musculoskeletal: Yes: Osteoarthritis ENT: Yes: Other (visually impaired) Endocrine: Yes: Diabetes Mellitus (NIDDM) Dermatology: Yes: Basal Cell (multiple sites removed) Additional Medical History: legally blind, 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 No: Colonoscopy (never had) Additional Surgical History: colostomy reversal with enterocutaneous fistula takedown and scar revision 11/24/17, complicated by lower midline fascial dehiscence - Alcohol/Substance Use Hx Alcohol Use: No History of Substance Use: reports: None - Smoking History Smoking history: Former smoker Have you smoked in the past 12 months: Yes Aproximately how many cigarettes per day: 20 If you are a former smoker, when did you quit?: September 16, 2017 - Social History Usual Living Arrangement: With Spouse (last several weeks since hospital d/c) ADL: Independent History of Recent Travel: No Home Medications - Allergies Allergies/Adverse Reactions: Allergies Allergy/AdvReac Type Severity Reaction Status Date / Time No Known Allergies Allergy Verified 01/26/18 07:28 - Home Medications Home Medications: Ambulatory Orders Anastrozole [Arimidex -] 1 mg PO DAILY 01/17/17 Atorvastatin Calcium 20 mg PO HS 01/17/17 Bupropion HCl [Wellbutrin -] 75 mg PO BID 01/17/17 Carvedilol 25 mg PO BID 01/17/17 Cyanocobalamin [Vitamin B12 -] 1,000 mcg PO DAILY 01/17/17 Furosemide 160 mg PO DAILY 01/17/17 Metformin HCl [Glucophage] 1,000 mg PO BID 11/23/17 Potassium Chloride [K-Dur -] 10 meq PO DAILY #30 tablet.er 12/03/17 Warfarin Na [Coumadin -] 5 mg PO DAILY@1800 #0 tablet 12/03/17 Losartan Potassium 25 mg PO DAILY 01/26/18 Family Disease History - Family Disease History Family Disease History: CA: Sister (breast CA) Review of Systems - Review of Systems Constitutional: denies: Chills, Fever Eyes: reports: Other (blind in right eye). denies: Recent Change in Vision HENT: denies: Difficult Swallowing, Throat Pain Neck: denies: Swollen Glands, Tenderness Cardiovascular: denies: Chest Pain, Palpitations Respiratory: reports: SOB (with hpi), SOB on Exertion. denies: Cough Gastrointestinal: reports: Nausea (with hpi). denies: Abdominal Pain, Constipation, Diarrhea, Vomiting Genitourinary: denies: Burning, Dysuria Musculoskeletal: denies: Back Pain, Joint Pain, Muscle Pain Integumentary: reports: Incision (midline wound with dressings, old stoma site/ wound with dressing, old drain/fistula site with gauze over it). denies: Change in Color, Rash Neurological: denies: Dizziness, Headache Psychiatric: reports: Anxiety (at times), Depression Physical Exam Vital Signs: Vital Signs Temperature 98.1 F 01/27/18 14:00 Pulse Rate 85 01/27/18 14:00 Respiratory Rate 18 01/27/18 06:00 Blood Pressure 105/54 L 01/27/18 14:00 O2 Sat by Pulse Oximetry (%) 99 01/26/18 21:00 Constitutional: Yes: Well Nourished, No Distress, Calm Eyes: Yes: EOM Intact, Other (right eye cloudy) HENT: Yes: Atraumatic, Normocephalic Neck: Yes: Supple, Trachea Midline Cardiovascular: Yes: Regular Rate and Rhythm Respiratory: Yes: Regular, Diminished (diminished air entry at bases, overall slightly diminished sounds), On Nasal O2. No: Rhonchi, SOB, Wheezes Gastrointestinal: Yes: Normal Bowel Sounds, Soft, Abdomen, Obese, Other (left upper abdomen wound (old drain/fistula site) healed to small thin scab, new pink skin; old stoma site wound clean, red, granulating, shallow, healing by secondary intention). No: Tenderness ...Rectal Exam: Yes: Deferred Renal/: No: CVA Tenderness - Left, CVA Tenderness - Right Musculoskeletal: No: Joint Stiffness, Joint Swelling Extremities: No: Cool, Cyanosis Edema: No Peripheral Pulses WNL: Yes Integumentary: Yes: Incision (midline - see below, and old stoma site). No: Jaundice, Rash Wound/Incision: Yes: Dressing Dry and Intact (serous drainage on midline gauze) , Dressing Removed (midline - upper portion healed, lower portion healing by secondary intention - clean, red, granulating, shallow, small loop of suture visible in lower aspect; just above this is small open wound also in midline, deep to fascial level, end of suture from knot visible in base, centeno red/ granulating, deepest portion with yellow/pale slough removed with cotton-tipped applicator, poor/gelatinous granulation tissue at surface edges and also some in lower aspect of lower midline wound; old stoma site with clean red shallow granulating surface, barely fits damp saline 2x2 gauze rolled up), Unapproximated Neurological: Yes: Alert, Oriented Psychiatric: Yes: Alert, Oriented Labs: CBC, BMP 01/27/18 05:30 01/27/18 05:30 CMP Sodium 141 mmol/L (136-145) 01/27/18 05:30 Potassium 4.6 mmol/L (3.5-5.1) 01/27/18 05:30 Chloride 101 mmol/L (98-107) 01/27/18 05:30 Carbon Dioxide 34 mmol/L (21-32) H 01/27/18 05:30 Anion Gap 6 MMOL/L (8-16) L 01/27/18 05:30 BUN 30 mg/dL (7-18) H 01/27/18 05:30 Creatinine 1.1 mg/dL (0.55-1.3) 01/27/18 05:30 Creat Clearance w eGFR 49.25 (>60) 01/27/18 05:30 POC Glucometer 142 UNITS (80-120) 01/27/18 06:33 Random Glucose 113 mg/dL (74-106) H 01/27/18 05:30 Hemoglobin A1c % 5.1 % (4.2-6.3) 01/27/18 05:30 Calcium 8.9 mg/dL (8.5-10.1) 01/27/18 05:30 Magnesium 2.3 mg/dL (1.8-2.4) 01/27/18 05:30 Ferritin 115.8 ng/ml (8-388) 01/27/18 05:30 Total Bilirubin 0.3 mg/dL (0.2-1) 01/26/18 08:00 AST 28 U/L (15-37) 01/26/18 08:00 ALT 20 U/L (13-61) 01/26/18 08:00 Alkaline Phosphatase 96 U/L (45-117) 01/26/18 08:00 Creatine Kinase 36 IU/L (26-192) 01/27/18 05:30 Troponin I 0.02 ng/ml (0.00-0.05) 01/27/18 05:30 B-Natriuretic Peptide 7270.4 pg/ml (5-125) H 01/26/18 08:00 Total Protein 6.9 g/dl (6.4-8.2) 01/26/18 08:00 Albumin 3.1 g/dl (3.4-5.0) L 01/26/18 08:00 TSH 4.05 uIU/ml (0.358-3.74) H 01/27/18 05:30 INR, PTT INR 2.04 (0.83-1.09) H 01/27/18 05:30 Urine Test Results Urine Color Straw 01/26/18 08:00 Urine Appearance Clear 01/26/18 08:00 Urine pH 5.0 (5.0-8.0) 01/26/18 08:00 Ur Specific [place] 1.010 (1.010-1.035) 01/26/18 08:00 Urine Protein Negative (NEGATIVE) 01/26/18 08:00 Urine Glucose (UA) 1+ (NEGATIVE) H 01/26/18 08:00 Urine Ketones Negative (NEGATIVE) 01/26/18 08:00 Urine Blood 1+ (NEGATIVE) H 01/26/18 08:00 Urine Nitrite Negative (NEGATIVE) 01/26/18 08:00 Urine Bilirubin Negative (<2.0 mg/dL) 01/26/18 08:00 Ur Leukocyte Esterase Trace (NEGATIVE) 01/26/18 08:00 Ur Epithelial Cells Rare /HPF (FEW) 01/26/18 08:00 Urine Mucus Rare 01/26/18 08:00 Microbiology 01/26/18 08:00 Urine Culture - Final Urine - Urine Clean Catch Imaging - Results Chest X-ray: Report Reviewed, Image Reviewed (image reviewed - effusions much less than mid-Nov, but with hilar congestive changes) Problem List - Problems (1) Open wound of abdominal wall, anterior, complicated Assessment/Plan: old drain/fistula site healed - left open to air old stoma site healing well - dressed with single 2x2 gauze moistened with few drops saline, covered with dry 2x2 and paper tape midline wound with two open sites, lower granulating, shallow - silver nitrate used on lower and upper margins of wound base, saline-damp 2x2 gauze laid over wound base, then dry gauze and tape; open spot above that - silver nitrate used on entire wound base and centeno, 2x2 gauze tucked into wound and remainder piled on top, covered with folded 2x2 gauze and tape will plan to change daily will do tomorrow, then leave dressing orders for nurses Code(s): S31.109A - UNSP OPN WND ABD WALL, UNSP Q W/O PENET PERIT CAV, INIT Qualifiers: Encounter type: subsequent encounter Qualified Code(s): S31.109D - Unspecified open wound of abdominal wall, unspecified quadrant without penetration into peritoneal cavity, subsequent encounter (2) Disruption of internal operation (surgical) wound, not elsewhere classified , subsequent encounter Assessment/Plan: see above Code(s): T81.32XD - DISRUPTION OF INTERNAL OPERATION (SURGICAL) WOUND, NEC, SUBS (3) Acute on chronic systolic congestive heart failure Assessment/Plan: overall feeling better per pt Code(s): I50.23 - ACUTE ON CHRONIC SYSTOLIC (CONGESTIVE) HEART FAILURE (4) COPD without exacerbation Code(s): J44.9 - CHRONIC OBSTRUCTIVE PULMONARY DISEASE, UNSPECIFIED (5) Anticoagulant long-term use Code(s): 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 (6) Anemia Code(s): D64.9 - ANEMIA, UNSPECIFIED Qualifiers: Anemia type: unspecified type Qualified Code(s): D64.9 - Anemia, unspecified (7) Diabetes mellitus type 2, noninsulin dependent Code(s): E11.9 - TYPE 2 DIABETES MELLITUS WITHOUT COMPLICATIONS (8) Hypertension Code(s): I10 - ESSENTIAL (PRIMARY) HYPERTENSION Qualifiers: Hypertension type: essential hypertension Qualified Code(s): I10 - Essential (primary) hypertension (9) Breast cancer, left Code(s): C50.912 - MALIGNANT NEOPLASM OF UNSPECIFIED SITE OF LEFT FEMALE BREAST Qualifiers: Breast location: unspecified site of breast Estrogen receptor status: positive Patient sex: female Qualified Code(s): C50.912 - Malignant neoplasm of unspecified site of left female breast; Z17.0 - Estrogen receptor positive status [ER+]
[2018-01-27] MEDS: LOSARTAN POTASSIUM 25 MG TABLET PO SCH ×2 (15:34→16:50)
[2018-01-27] MEDS: WARFARIN NA 5 MG TABLET (UD) PO SCH (17:36)
--- NOTE | 2018-01-27 20:47 | CONSULT ---
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 Cardio/Vascular: Yes: CHF (systolic), HTN (concern for L renal artery stenosis) , Hyperlipdemia Pulmonary: Yes: COPD, O2 Dependent (nasal cannula) Gastrointestinal: Yes: GERD, Other (megacolon, perforated 12/16) Renal/: Yes: Other (L renal artery stenosis) Reproductive: Yes: Postmenopausal Infectious Disease: Yes: C-Diff (possible - Ag positive, toxin neg) Psych: Yes: Anxiety, Depression Musculoskeletal: Yes: Osteoarthritis ENT: Yes: Other (visually impaired) Endocrine: Yes: Diabetes Mellitus (NIDDM) Dermatology: Yes: Basal Cell (multiple sites removed) Additional Medical History: legally blind, 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 No: Colonoscopy (never had) Additional Surgical History: colostomy reversal with enterocutaneous fistula takedown and scar revision 11/24/17, complicated by lower midline fascial dehiscence - Smoking History Smoking history: Former smoker - Allergies Allergies/Adverse Reactions: Allergies Allergy/AdvReac Type Severity Reaction Status Date / Time No Known Allergies Allergy Verified 01/26/18 07:28 - Home Medications Home Medications: Ambulatory Orders Anastrozole [Arimidex -] 1 mg PO DAILY 01/17/17 Atorvastatin Calcium 20 mg PO HS 01/17/17 Bupropion HCl [Wellbutrin -] 75 mg PO BID 01/17/17 Carvedilol 25 mg PO BID 01/17/17 Cyanocobalamin [Vitamin B12 -] 1,000 mcg PO DAILY 01/17/17 Furosemide 160 mg PO DAILY 01/17/17 Metformin HCl [Glucophage] 1,000 mg PO BID 11/23/17 Potassium Chloride [K-Dur -] 10 meq PO DAILY #30 tablet.er 12/03/17 Warfarin Na [Coumadin -] 5 mg PO DAILY@1800 #0 tablet 12/03/17 Losartan Potassium 25 mg PO DAILY 01/26/18 Family Disease History - Family Disease History Family Disease History: CA: Sister (breast CA) Physical Exam Vital Signs: Vital Signs Temperature 98.1 F 01/27/18 14:00 Pulse Rate 85 01/27/18 14:00 Respiratory Rate 18 01/27/18 06:00 Blood Pressure 105/54 L 01/27/18 14:00 O2 Sat by Pulse Oximetry (%) 99 01/26/18 21:00 Cor: RSR, No murmurs, No gallops Lungs: Clear to P&A Abd: Soft, Normal bowel sounds, No organomegaly. lower abdominal wound. Ext:No significant edema Left breast--uuper outer quadrant induratedpatch CBC, BMP 01/27/18 05:30 01/27/18 05:30 CMP Sodium 141 mmol/L (136-145) 01/27/18 05:30 Potassium 4.6 mmol/L (3.5-5.1) 01/27/18 05:30 Chloride 101 mmol/L (98-107) 01/27/18 05:30 Carbon Dioxide 34 mmol/L (21-32) H 01/27/18 05:30 Anion Gap 6 MMOL/L (8-16) L 01/27/18 05:30 BUN 30 mg/dL (7-18) H 01/27/18 05:30 Creatinine 1.1 mg/dL (0.55-1.3) 01/27/18 05:30 Creat Clearance w eGFR 49.25 (>60) 01/27/18 05:30 POC Glucometer 142 UNITS (80-120) 01/27/18 06:33 Random Glucose 113 mg/dL (74-106) H 01/27/18 05:30 Hemoglobin A1c % 5.1 % (4.2-6.3) 01/27/18 05:30 Calcium 8.9 mg/dL (8.5-10.1) 01/27/18 05:30 Magnesium 2.3 mg/dL (1.8-2.4) 01/27/18 05:30 Ferritin 115.8 ng/ml (8-388) 01/27/18 05:30 Total Bilirubin 0.3 mg/dL (0.2-1) 01/26/18 08:00 AST 28 U/L (15-37) 01/26/18 08:00 ALT 20 U/L (13-61) 01/26/18 08:00 Alkaline Phosphatase 96 U/L (45-117) 01/26/18 08:00 Creatine Kinase 36 IU/L (26-192) 01/27/18 05:30 Troponin I 0.02 ng/ml (0.00-0.05) 01/27/18 05:30 B-Natriuretic Peptide 7270.4 pg/ml (5-125) H 01/26/18 08:00 Total Protein 6.9 g/dl (6.4-8.2) 01/26/18 08:00 Albumin 3.1 g/dl (3.4-5.0) L 01/26/18 08:00 TSH 4.05 uIU/ml (0.358-3.74) H 01/27/18 05:30 INR, PTT INR 2.04 (0.83-1.09) H 01/27/18 05:30 Urine Test Results Urine Color Straw 01/26/18 08:00 Urine Appearance Clear 01/26/18 08:00 Urine pH 5.0 (5.0-8.0) 01/26/18 08:00 Ur Specific [place] 1.010 (1.010-1.035) 01/26/18 08:00 Urine Protein Negative (NEGATIVE) 01/26/18 08:00 Urine Glucose (UA) 1+ (NEGATIVE) H 01/26/18 08:00 Urine Ketones Negative (NEGATIVE) 01/26/18 08:00 Urine Blood 1+ (NEGATIVE) H 01/26/18 08:00 Urine Nitrite Negative (NEGATIVE) 01/26/18 08:00 Urine Bilirubin Negative (<2.0 mg/dL) 01/26/18 08:00 Ur Leukocyte Esterase Trace (NEGATIVE) 01/26/18 08:00 Ur Epithelial Cells Rare /HPF (FEW) 01/26/18 08:00 Urine Mucus Rare 01/26/18 08:00 Microbiology 01/26/18 08:00 Urine Culture - Final Urine - Urine Clean Catch Imaging - Results Chest X-ray: Report Reviewed, Image Reviewed (image reviewed - effusions much less than mid-Nov, but with hilar congestive changes) a/p 67yo F with multiple medical problems including COPD, CHF, on [place] home O2 since discharge in early November, s/p sigmoid resection/Dwaine's 12/10/16 for perforated megacolon, complicated by wound issues and abdominal wall abscess drained by IR with 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 comes in with shortness of breath, chf Anemia--normocytic/normochromic at present. Was macrocytic in past. Dates back to 1 year. Had hgb 11-12 prior to that. Nl WBC/platelets Patient dates it back 12/16 when she had perforated megacolon Multifactorial anemia --Suspect anemia of chronic disease--low albumin/reverse AG ratio and clinical picture supportiv eof this. will check ESR/CrP ? inflammatory state from wound issues/post op. complications dating back to her megacolon surgery 1 yr. ago+ CHF+ COPD +/- ??occult blood loss on coumadin ( but ferritin n. iron sat is pending) will check B12/folate /Protein studies/flow/retic/LDH Transfuse PRBCS if <8 given r cardiac h/o ?? GI consult but most likely anemia of chronic disease will follow
[2018-01-27] MEDS: ATORVASTATIN CA 20 MG TABLET (FP) PO SCH (21:49)
[2018-01-27] MEDS: NYSTATIN POWDER 100,000 UNITS/GM - 15 GM TOPICAL POWDER TP SCH (21:50)
[2018-01-27] MEDS: ZOLPIDEM TARTRATE 5 MG TABLET PO PRN (21:55)
[2018-01-28 06:06] LABS: SERUM IRON SATURATION 19 % (15-55); TOTAL IRON BINDING CAPACITY 278 ug/dL (250-450); UIBC 225 ug/dL (118-369)
[2018-01-28] MEDS: ALBUTEROL SO4 2.5/IPRATROPIUM 0.5 INH SOL 3 ML VIAL.NEB. NEB PRN (07:45)
[2018-01-28 07:48] LABS: HEMATOCRIT 24.3 % (32.4-45.2); HEMOGLOBIN 7.8 GM/dL (10.7-15.3); MCH 30.7 pg (25.7-33.7); MCHC 32.1 g/dl (32.0-36.0); MEAN CELL VOLUME 95.8 fl (80-96); MEAN PLT VOLUME 7.8 fl (7.5-11.1); PLATELET COUNT 272 K/MM3 (134-434); RBC 2.54 M/mm3 (3.60-5.2); RDW 16.5 % (11.6-15.6)
[2018-01-28 08:01] LABS: INR 2.19 (0.83-1.09); PROTHROMBIN TIME (PATIENT) 26.1 SEC (9.7-13.0)
[2018-01-28 08:35] LABS: ANION GAP 9 MMOL/L (8-16); BLOOD UREA NITROGEN 36 mg/dL (7-18); CALCIUM 8.6 mg/dL (8.5-10.1); CHLORIDE 101 mmol/L (98-107); CO2 29 mmol/L (21-32); CREATININE 1.3 mg/dL (0.55-1.3); GLUCOSE,RANDOM 108 mg/dL (74-106); POTASSIUM 4.4 mmol/L (3.5-5.1); SODIUM 139 mmol/L (136-145)
--- NOTE | 2018-01-28 10:12 | PN ---
Progress Note, Physician Chief Complaint: Events noted Feels better and denies SOB History of Present Illness: Patient was seen and examined. Awake and alert. Chart was reviewed Denies chest pain, SOB or palpitations - Current Medication List Current Medications: Active Medications Albuterol/Ipratropium (Duoneb -) 1 amp NEB Q6H PRN PRN Reason: SHORTNESS OF BREATH Last Admin: 01/28/18 07:45 Dose: 1 amp Anastrozole (Arimidex -) 1 mg PO DAILY [facility] Last Admin: 01/27/18 09:49 Dose: 1 mg Atorvastatin Calcium (Lipitor -) 20 mg PO HS [facility] Last Admin: 01/27/18 21:49 Dose: 20 mg Bupropion HCl (Wellbutrin -) 75 mg PO 0800,2000 [facility] Last Admin: 01/27/18 20:45 Dose: 75 mg Carvedilol (Coreg -) 12.5 mg PO BID [facility] Last Admin: 01/27/18 21:49 Dose: 12.5 mg Furosemide (Lasix Injection -) 40 mg IVPUSH DAILY [facility] Last Admin: 01/27/18 09:50 Dose: 40 mg Losartan Potassium (Cozaar -) 25 mg PO DAILY [facility] Last Admin: 01/27/18 15:34 Dose: Not Given Metformin HCl (Glucophage Xr -) 500 mg PO DAILY@0700 [facility] Last Admin: 01/28/18 06:45 Dose: 500 mg Nystatin (Nystop Powder -) 1 applic TP BID [facility] Last Admin: 01/27/18 21:50 Dose: 1 applic Warfarin Sodium (Coumadin -) 5 mg PO DAILY@1800 [facility] Last Admin: 01/27/18 17:36 Dose: 5 mg Zolpidem Tartrate (Ambien -) 5 mg PO HS PRN PRN Reason: INSOMNIA Last Admin: 01/27/18 21:55 Dose: 5 mg - Objective Vital Signs: Vital Signs Temperature 97.8 F 01/28/18 06:00 Pulse Rate 86 01/28/18 06:00 Respiratory Rate 20 01/28/18 06:00 Blood Pressure 110/64 01/28/18 06:00 O2 Sat by Pulse Oximetry (%) 100 01/27/18 21:00 HENT: Yes: Atraumatic Neck: Yes: Supple Cardiovascular: Yes: Regular Rate and Rhythm, S1, S2 Respiratory: Yes: Diminished (Base) Gastrointestinal: Yes: Normal Bowel Sounds, Soft. No: Tenderness Edema: No Additional Findings/Remarks: - Review of Systems Constitutional: denies: Chills, Fever Cardiovascular: reports: Palpitations, Shortness of Breath. denies: Chest Pain Respiratory: reports: SOB. denies: Cough, Hemoptysis, Orthopnea, PND, Wheezing Gastrointestinal: denies: Abdominal Pain, Constipation, Diarrhea, Melena, Nausea , Rectal Bleeding, Vomiting Genitourinary: denies: Dysuria, Hematuria Neurological: denies: Dizziness, Headache, Seizure, Syncope Labs: CBC, BMP 01/28/18 05:30 01/28/18 05:30 INR, PTT INR 2.19 (0.83-1.09) H 01/28/18 05:30 Problem List - Problems (1) Hypercholesterolemia Code(s): E78.00 - PURE HYPERCHOLESTEROLEMIA, UNSPECIFIED (2) Acute on chronic systolic congestive heart failure Code(s): I50.23 - ACUTE ON CHRONIC SYSTOLIC (CONGESTIVE) HEART FAILURE (3) Anemia Code(s): D64.9 - ANEMIA, UNSPECIFIED Qualifiers: Anemia type: unspecified type Qualified Code(s): D64.9 - Anemia, unspecified (4) Anticoagulant long-term use Code(s): Z79.01 - SKILLED NURSING (CURRENT) USE OF 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 (5) Bilateral pleural effusion Code(s): J90 - PLEURAL EFFUSION, NOT ELSEWHERE CLASSIFIED (6) COPD (chronic obstructive pulmonary disease) Code(s): J44.9 - CHRONIC OBSTRUCTIVE PULMONARY DISEASE, UNSPECIFIED Qualifiers: COPD type: unspecified COPD Qualified Code(s): J44.9 - Chronic obstructive pulmonary disease, unspecified (7) Diabetes mellitus type 2, noninsulin dependent Code(s): E11.9 - TYPE 2 DIABETES MELLITUS WITHOUT COMPLICATIONS (8) H/O: CVA (cerebrovascular accident) Code(s): Z86.73 - PRSNL HX OF TIA (TIA), AND CEREB INFRC W/O RESID DEFICITS (9) Hypertension Code(s): I10 - ESSENTIAL (PRIMARY) HYPERTENSION Qualifiers: Hypertension type: essential hypertension Qualified Code(s): I10 - Essential (primary) hypertension (10) Left renal artery stenosis Code(s): I70.1 - ATHEROSCLEROSIS OF RENAL ARTERY (11) Perforated sigmoid colon Code(s): K63.1 - PERFORATION OF INTESTINE (NONTRAUMATIC) Assessment/Plan 1. Acute on chronic LV systolic failure resolving 2. History of CVA with left MCA thrombus 3. History of perforated sigmoid colon s/p sigmoidectomy and reversed colostomy 4. COPD with Chronic Hypoxic Respiratory Failure and long smoking history 5. HTN 6. Hypercholesterolemia 7. Anemia 8. Type 2 DM 9. Renal artery stenosis PLAN: 1. IV diuresis with monitor renal function and electrolytes 2. Echocardiography is to be repeated and results pending 3. Continue Carvedilol 12.5 mg BID, Lipitor 20 mg QHS and Losartan 25 mg QD 4. Continue Warfarin as per INR 5. O2 to keep SpO2 >90% and inhaled bronchodilators as needed Further plans are to follow Chandu Mahoney MD
[2018-01-28] MEDS: buPROPion HCL 75 MG TABLET PO SCH ×2 (10:38→20:38)
[2018-01-28] MEDS: ANASTROZOLE 1 MG TABLET PO SCH (10:39)
[2018-01-28] MEDS: CARVEDILOL 12.5 MG TABLET (FP) PO SCH ×2 (10:39→21:21)
[2018-01-28] MEDS: LOSARTAN POTASSIUM 25 MG TABLET PO SCH ×2 (10:43→12:16)
[2018-01-28] MEDS: NYSTATIN POWDER 100,000 UNITS/GM - 15 GM TOPICAL POWDER TP SCH ×2 (10:45→21:21)
[2018-01-28] MEDS: FUROSEMIDE 40 MG/4 ML INJECTABLE VIAL IVPUSH SCH (10:45)
--- NOTE | 2018-01-28 13:30 | ECHO ---
Name: TERRY SONG Exam:Adult Echocardiogram Study Date: 01/28/2018 08:41 AM Age: 67 yrs Reason For Study: CHF Height: 62 in Weight: 170 lb BSA: 1.8 m2 MMode/2D Measurements & Calculations IVSd: 1.1 cm Ao root diam: 2.8 cm LVIDd: 4.8 cm LA dimension: 5.0 cm LVIDs: 3.5 cm LVPWd: 1.3 cm LVPWs: 1.9 cm EDV(Teich): 105.6 ml ESV(Teich): 50.4 ml TAPSE: 1.6 cm Doppler Measurements & Calculations MV E max louie: 120.4 cm/sec Ao V2 max: 184.5 cm/sec MV A max louie: 85.4 cm/sec Ao max P.6 mmHg MV E/A: 1.4 MV dec time: 0.20 sec LV V1 max P.9 mmHg MR max louie: 544.2 cm/sec LV V1 max: 68.6 cm/sec MR max P.0 mmHg TV V2 max: 282.0 cm/sec PA V2 max: 112.7 cm/sec TV max P.8 mmHg PA max P.1 mmHg Med Peak E' Louie: 3.1 cm/sec Med E/e': 38.7 Lat Peak E' Louie: 5.9 cm/sec Lat E/e': 20.3 Procedure A complete two-dimensional transthoracic echocardiogram was performed (2D, M-mode, Doppler and color flow Doppler). Left Ventricle The left ventricle is normal in size. Left ventricular systolic function is severely reduced. Ejectio n Fraction = 30-35%. There is severe global hypokinesis of the left ventricle. Right Ventricle The right ventricle is normal in size and function. Atria The left atrium is moderately dilated. Right atrial size is normal. Mitral Valve There is mild mitral annular calcification. The mitral valve chordae are thickened and/or calcified. There is moderate mitral regurgitation. Tricuspid Valve No tricuspid regurgitation. There was insufficient TR detected to calculate RV systolic pressure. Aortic Valve No hemodynamically significant valvular aortic stenosis. No aortic regurgitation is present. Pulmonic Valve There is no pulmonic valvular regurgitation. Great Vessels The aortic root is normal size. Pericardium/Pleura There is no pericardial effusion. Interpretation Summary The left ventricle is normal in size. Left ventricular systolic function is severely reduced. There is severe global hypokinesis of the left ventricle. The right ventricle is normal in size and function. The left atrium is moderately dilated. There is moderate mitral regurgitation. MD Alli Trevino 01/28/2018 01:29 PM
--- NOTE | 2018-01-28 15:00 | PN ---
Progress Note (short form) - Note Progress Note: Overall breathing feels better. No CP or SOB. Intake & Output 01/25/18 01/26/18 01/27/18 01/28/18 23:59 23:59 23:59 23:59 Intake Total 560 1060 210 Balance 560 1060 210 Weight 170 lb 168 lb 3.2 oz Last Vital Signs Temp Pulse Resp BP Pulse Ox 98.1 F 78 20 104/45 L 96 01/28/18 14:00 01/28/18 14:00 01/28/18 06:00 01/28/18 14:00 01/28/18 09:00 Active Medications Albuterol/Ipratropium (Duoneb -) 1 amp NEB Q6H PRN PRN Reason: SHORTNESS OF BREATH Last Admin: 01/28/18 07:45 Dose: 1 amp Anastrozole (Arimidex -) 1 mg PO DAILY [facility] Last Admin: 01/28/18 10:39 Dose: 1 mg Atorvastatin Calcium (Lipitor -) 20 mg PO HS [facility] Last Admin: 01/27/18 21:49 Dose: 20 mg Bupropion HCl (Wellbutrin -) 75 mg PO 0800,1999 [facility] Last Admin: 01/28/18 10:38 Dose: 75 mg Carvedilol (Coreg -) 12.5 mg PO BID [facility] Last Admin: 01/28/18 10:39 Dose: 12.5 mg Furosemide (Lasix Injection -) 40 mg IVPUSH DAILY [facility] Last Admin: 01/28/18 10:45 Dose: 40 mg Losartan Potassium (Cozaar -) 25 mg PO DAILY [facility] Last Admin: 01/28/18 12:16 Dose: 25 mg Metformin HCl (Glucophage Xr -) 500 mg PO DAILY@0700 [facility] Last Admin: 01/28/18 06:45 Dose: 500 mg Nystatin (Nystop Powder -) 1 applic TP BID [facility] Last Admin: 01/28/18 10:45 Dose: 1 applic Warfarin Sodium (Coumadin -) 5 mg PO DAILY@1800 [facility] Last Admin: 01/27/18 17:36 Dose: 5 mg Zolpidem Tartrate (Ambien -) 5 mg PO HS PRN PRN Reason: INSOMNIA Last Admin: 01/27/18 21:55 Dose: 5 mg Constitutional: Yes: NAD Eyes: Yes: WNL HENT: Yes: WNL Neck: Yes: WNL Cardiovascular: Yes: Pulse Irregular, S1, S2 Respiratory: Yes: Bibasilar Rales Gastrointestinal: Yes: Normal Bowel Sounds, Soft Extremities: Yes: WNL Edema: No Labs: Laboratory Results - last 24 hr 01/27/18 01/27/18 01/27/18 05:30 05:30 16:22 WBC RBC Hgb Hct MCV MCH MCHC RDW Plt Count MPV PT with INR INR Sodium 141 Potassium 4.6 Chloride 101 Carbon Dioxide 34 H Anion Gap 6 L BUN 30 H Creatinine 1.1 Creat Clearance w eGFR 49.25 POC Glucometer 127 Random Glucose 113 H Calcium 8.9 Magnesium 2.3 Iron 53 TIBC 278 Iron Saturation 19 Ferritin 115.8 Cihlq-1-Csqdbkdwv (%) Xgnck-1-Xoxjrieof (%) Beta Globulins (%) Gamma Globulins (%) M-Steven % TSH 4.05 H Free T4 0.89 Ref Test Comments 01/28/18 01/28/18 01/28/18 05:04 05:30 05:30 WBC 6.0 RBC 2.54 L Hgb 7.8 L Hct 24.3 L MCV 95.8 MCH 30.7 MCHC 32.1 RDW 16.5 H Plt Count 272 MPV 7.8 PT with INR 26.10 H INR 2.19 H Sodium Potassium Chloride Carbon Dioxide Anion Gap BUN Creatinine Creat Clearance w eGFR POC Glucometer 134 Random Glucose Calcium Magnesium Iron TIBC Iron Saturation Ferritin Syqoq-5-Vlyyuwvmn (%) Kchky-2-Mfqlittnc (%) Beta Globulins (%) Gamma Globulins (%) M-tSeven % TSH Free T4 Ref Test Comments 01/28/18 01/28/18 05:30 05:30 WBC RBC Hgb Hct MCV MCH MCHC RDW Plt Count MPV PT with INR INR Sodium 139 Potassium 4.4 Chloride 101 Carbon Dioxide 29 Anion Gap 9 BUN 36 H Creatinine 1.3 Creat Clearance w eGFR 40.61 POC Glucometer Random Glucose 108 H Calcium 8.6 Magnesium Iron TIBC Iron Saturation Ferritin Pmyfu-5-Mjvidtjlg (%) Cancelled Hoccj-4-Stngjuezt (%) Cancelled Beta Globulins (%) Cancelled Gamma Globulins (%) Cancelled M-Steven % Cancelled TSH Free T4 Ref Test Comments Cancelled Assessment/Plan Problem List - Problems (1) Acute on chronic systolic congestive heart failure Code(s): I50.23 - ACUTE ON CHRONIC SYSTOLIC (CONGESTIVE) HEART FAILURE (2) COPD (chronic obstructive pulmonary disease) Code(s): J44.9 - CHRONIC OBSTRUCTIVE PULMONARY DISEASE, UNSPECIFIED Qualifiers: COPD type: unspecified COPD Qualified Code(s): J44.9 - Chronic obstructive pulmonary disease, unspecified (3) Diabetes mellitus type 2, noninsulin dependent Code(s): E11.9 - TYPE 2 DIABETES MELLITUS WITHOUT COMPLICATIONS (4) Hypertension Code(s): I10 - ESSENTIAL (PRIMARY) HYPERTENSION Qualifiers: Hypertension type: essential hypertension Qualified Code(s): I10 - Essential (primary) hypertension Assessment/Plan Acute on Chronic Systolic Heart Failure COPD Chronic Hypoxic Respiratory Failure h/o CVA with Left MCA thrombus HTN DM Hypercholesterolemia h/o Sigmoidectomy - Lasix - monitor urine output, creatinine - Daily weights - LASHELL-I/ARB, beta criselda - O2 to keep SpO2 >90% - inhaled bronchodilators as needed - anticoagulation Dr Cormier
--- NOTE | 2018-01-28 15:36 | PN ---
Progress Note (short form) - Note Progress Note: PROGRESS NOTE FOR HEMATOLOGY/ONCOLOGY Patient seen and examined by me at bedside No acute events overnight Patient offers no complaints Otherwise, denies any nausea, vomiting, chest pain, palpitations, headaches, melena, hematochezia, dysuria Vital Signs Temperature 98.1 F 01/28/18 14:00 Pulse Rate 78 01/28/18 14:00 Respiratory Rate 20 01/28/18 06:00 Blood Pressure 104/45 L 01/28/18 14:00 O2 Sat by Pulse Oximetry (%) 96 01/28/18 09:00 PHYSICAL EXAMINATION GENERAL: Awake, alert, in no acute distress EYES: PERRL. Sclera anicteric MOUTH: No oral thrush CARDIO: RRR, Normal S1 and S2, no m/r/g LUNGS: Diminished breaht sounds throughout lung bases. On 02 NC. No accessory muscle use ABDOMEN: Soft, obese, nondistended, nontender, Incisional midline scar with no erythema or drainage. Surgical dressing c/d/i EXTREMITIES: No peripheral sangita Laboratory Tests 01/28/18 05:30 01/28/18 05:30 01/27/18 01/28/18 11:15 05:30 PT with INR 26.10 H INR 2.19 H Stool Occult Blood Negative ASSESSMENT AND PLAN: Patient is a 67 year old female who presented with worsening shortness of breath and was found to have COPD vs CHF exacerbation. Patient was also found anemic and we were consulted to further evaluate. Problem List: Anemia- currently normocytic normochromic but was previously macrocytic. COPD exacerbation CHF Exacerbation HTN HLD NIDDMII History of CVA with left MCA thrombus History of perforated sigmoid colon s/p sigmoidectomy and reversed colostomy PLAN: -Likely multifactorial anemia with suspected anemia of chronic disease. -ESR/CRP pending to check for inflammatory state from wounds -Iron studies, b12/folate, protein studies, flow, retic, and LDH pending -Transfuse patient if Hgb <8 due to cardiac history
[2018-01-28] MEDS ORDERED: FUROSEMIDE 40 MG/4 ML INJECTABLE VIAL IVPUSH ONE (16:52)
--- NOTE | 2018-01-28 17:11 | PN ---
Progress Note (short form) - Note Progress Note: Current Medications Albuterol/Ipratropium (Duoneb -) 1 amp NEB Q6H PRN PRN Reason: SHORTNESS OF BREATH Last Admin: 01/28/18 07:45 Dose: 1 amp Anastrozole (Arimidex -) 1 mg PO DAILY [facility] Last Admin: 01/28/18 10:39 Dose: 1 mg Atorvastatin Calcium (Lipitor -) 20 mg PO HS [facility] Last Admin: 01/27/18 21:49 Dose: 20 mg Bupropion HCl (Wellbutrin -) 75 mg PO 0800,2000 [facility] Last Admin: 01/28/18 10:38 Dose: 75 mg Carvedilol (Coreg -) 12.5 mg PO BID [facility] Last Admin: 01/28/18 10:39 Dose: 12.5 mg Furosemide (Lasix Injection -) 60 mg IVPUSH DAILY [facility] Losartan Potassium (Cozaar -) 25 mg PO DAILY [facility] Last Admin: 01/28/18 12:16 Dose: 25 mg Metformin HCl (Glucophage Xr -) 500 mg PO DAILY@0700 [facility] Last Admin: 01/28/18 06:45 Dose: 500 mg Nystatin (Nystop Powder -) 1 applic TP BID [facility] Last Admin: 01/28/18 10:45 Dose: 1 applic Warfarin Sodium (Coumadin -) 5 mg PO DAILY@1800 [facility] Last Admin: 01/27/18 17:36 Dose: 5 mg Zolpidem Tartrate (Ambien -) 5 mg PO HS PRN PRN Reason: INSOMNIA Last Admin: 01/27/18 21:55 Dose: 5 mg Laboratory Results - last 24 hr 01/27/18 01/27/18 01/28/18 05:30 05:30 05:04 WBC RBC Hgb Hct MCV MCH MCHC RDW Plt Count MPV PT with INR INR Sodium 141 Potassium 4.6 Chloride 101 Carbon Dioxide 34 H Anion Gap 6 L BUN 30 H Creatinine 1.1 Creat Clearance w eGFR 49.25 POC Glucometer 134 Random Glucose 113 H Calcium 8.9 Magnesium 2.3 Iron 53 TIBC 278 Iron Saturation 19 Ferritin 115.8 Mdfog-8-Etvacmydh (%) Zitag-9-Ezwqcnyas (%) Beta Globulins (%) Gamma Globulins (%) M-Steven % TSH 4.05 H Free T4 0.89 Ref Test Comments 01/28/18 01/28/18 01/28/18 05:30 05:30 05:30 WBC 6.0 RBC 2.54 L Hgb 7.8 L Hct 24.3 L MCV 95.8 MCH 30.7 MCHC 32.1 RDW 16.5 H Plt Count 272 MPV 7.8 PT with INR 26.10 H INR 2.19 H Sodium 139 Potassium 4.4 Chloride 101 Carbon Dioxide 29 Anion Gap 9 BUN 36 H Creatinine 1.3 Creat Clearance w eGFR 40.61 POC Glucometer Random Glucose 108 H Calcium 8.6 Magnesium Iron TIBC Iron Saturation Ferritin Ptwzt-6-Tljzidjgu (%) Uplbp-8-Bfjjnmizo (%) Beta Globulins (%) Gamma Globulins (%) M-Steven % TSH Free T4 Ref Test Comments 01/28/18 05:30 WBC RBC Hgb Hct MCV MCH MCHC RDW Plt Count MPV PT with INR INR Sodium Potassium Chloride Carbon Dioxide Anion Gap BUN Creatinine Creat Clearance w eGFR POC Glucometer Random Glucose Calcium Magnesium Iron TIBC Iron Saturation Ferritin Mogno-5-Ydgyfkblw (%) Cancelled Zpyqw-1-Pljeixgjm (%) Cancelled Beta Globulins (%) Cancelled Gamma Globulins (%) Cancelled M-Steven % Cancelled TSH Free T4 Ref Test Comments Cancelled Vital Signs Temperature 98.1 F 01/28/18 14:00 Pulse Rate 78 01/28/18 14:00 Respiratory Rate 20 01/28/18 06:00 Blood Pressure 104/45 L 01/28/18 14:00 O2 Sat by Pulse Oximetry (%) 96 01/28/18 09:00 C:: no new complaints ``````````````````````````` skin--pallor eyes--anicteric; Rt cornea opaque lungs--BS distant; unlabored heart--RR abd--benign ext--no edema neuro--fully alert; coherent `````````````````````````````````` Summ > CHF--as denoted by CXR; cxr today largely the same; echo shows diffuse/global hypokinesis; ARB added; will increase dose of Lasix > anemia--persistent; stools tested negative for OB; Heme/onc note read; studies ordered PLAN: will need to transfuse but will try to diurese further before giving blood as it may otherwise precipitate outright pulm edema > COPD--oxygen dependent 2nd Tobacco use. > DM--on Metformin; but may need to stop if Bun/cr rises further > azotemia--2nd intra-vasc contraction; may limit efforts with diuresis > Residential a/c--placed on a/c for CVA prevention from MCA thrombosis ~~~~~~~~~~~~ Dr Caputo Problem List - Problems (1) CHF (congestive heart failure) Code(s): I50.9 - HEART FAILURE, UNSPECIFIED Qualifiers: Heart failure type: unspecified Heart failure chronicity: unspecified Qualified Code(s): I50.9 - Heart failure, unspecified (2) Anemia Code(s): D64.9 - ANEMIA, UNSPECIFIED Qualifiers: Anemia type: unspecified type Qualified Code(s): D64.9 - Anemia, unspecified (3) Hypercholesterolemia Code(s): E78.00 - PURE HYPERCHOLESTEROLEMIA, UNSPECIFIED (4) COPD (chronic obstructive pulmonary disease) Code(s): J44.9 - CHRONIC OBSTRUCTIVE PULMONARY DISEASE, UNSPECIFIED Qualifiers: COPD type: unspecified COPD Qualified Code(s): J44.9 - Chronic obstructive pulmonary disease, unspecified (5) Anticoagulant long-term use Code(s): Z79.01 - WOOD HANDLER (CURRENT) USE OF 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 (6) Diabetes mellitus type 2, noninsulin dependent Code(s): E11.9 - TYPE 2 DIABETES MELLITUS WITHOUT COMPLICATIONS (7) Breast cancer, left Code(s): C50.912 - MALIGNANT NEOPLASM OF UNSPECIFIED SITE OF LEFT FEMALE BREAST Qualifiers: Breast location: unspecified site of breast Estrogen receptor status: positive Patient sex: female Qualified Code(s): C50.912 - Malignant neoplasm of unspecified site of left female breast; Z17.0 - Estrogen receptor positive status [ER+] (8) Cancer of left breast Code(s): C50.912 - MALIGNANT NEOPLASM OF UNSPECIFIED SITE OF LEFT FEMALE BREAST Qualifiers: Breast location: upper outer quadrant of breast Estrogen receptor status: positive Patient sex: female Qualified Code(s): C50.412 - Malignant neoplasm of upper-outer quadrant of left female breast (9) Open abdominal wall wound Code(s): S31.109A - UNSP OPN WND ABD WALL, UNSP Q W/O PENET PERIT CAV, INIT Qualifiers: Encounter type: subsequent encounter Qualified Code(s): S31.109D - Unspecified open wound of abdominal wall, unspecified quadrant without penetration into peritoneal cavity, subsequent encounter (10) Depression Code(s): F32.9 - MAJOR DEPRESSIVE DISORDER, SINGLE EPISODE, UNSPECIFIED Qualifiers: Depression Type: unspecified Qualified Code(s): F32.9 - Major depressive disorder, single episode, unspecified (11) Visual impairment Code(s): H54.7 - UNSPECIFIED VISUAL LOSS
[2018-01-28] MEDS: WARFARIN NA 5 MG TABLET (UD) PO SCH (18:08)
--- NOTE | 2018-01-28 18:40 | PN ---
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 Old drain/fistula site LUQ is essentially healed, just covering with gauze. Old stoma site is clean, granulating, healing in by secondary intention. Midline wound has additional small open spot just superior to lower open wound, both had silver nitrate applied to areas yesterday and were dressed with gauze. There is a small amount of maloney drainage on dressings over these areas. Seen and examined in room, about to eat dinner, family visiting. She got in bed for exam, and is moving fairly well. - Current Medication List Current Medications: Active Medications Albuterol/Ipratropium (Duoneb -) 1 amp NEB Q6H PRN PRN Reason: SHORTNESS OF BREATH Last Admin: 01/28/18 07:45 Dose: 1 amp Anastrozole (Arimidex -) 1 mg PO DAILY [facility] Last Admin: 01/28/18 10:39 Dose: 1 mg Atorvastatin Calcium (Lipitor -) 20 mg PO HS [facility] Last Admin: 01/27/18 21:49 Dose: 20 mg Bupropion HCl (Wellbutrin -) 75 mg PO 0800,2000 [facility] Last Admin: 01/28/18 10:38 Dose: 75 mg Carvedilol (Coreg -) 12.5 mg PO BID [facility] Last Admin: 01/28/18 10:39 Dose: 12.5 mg Furosemide (Lasix Injection -) 60 mg IVPUSH DAILY [facility] Losartan Potassium (Cozaar -) 25 mg PO DAILY [facility] Last Admin: 01/28/18 12:16 Dose: 25 mg Metformin HCl (Glucophage Xr -) 500 mg PO DAILY@0700 [facility] Last Admin: 01/28/18 06:45 Dose: 500 mg Nystatin (Nystop Powder -) 1 applic TP BID [facility] Last Admin: 01/28/18 10:45 Dose: 1 applic Warfarin Sodium (Coumadin -) 5 mg PO DAILY@1800 [facility] Last Admin: 01/28/18 18:08 Dose: 5 mg Zolpidem Tartrate (Ambien -) 5 mg PO HS PRN PRN Reason: INSOMNIA Last Admin: 01/27/18 21:55 Dose: 5 mg - Objective Vital Signs: Vital Signs Temperature 98.1 F 01/28/18 14:00 Pulse Rate 78 01/28/18 14:00 Respiratory Rate 20 01/28/18 06:00 Blood Pressure 104/45 L 01/28/18 14:00 O2 Sat by Pulse Oximetry (%) 96 01/28/18 09:00 Constitutional: Yes: Well Nourished, No Distress, Calm Eyes: Yes: Conjunctiva Clear (right pupil cloudy), EOM Intact HENT: Yes: Atraumatic, Normocephalic Gastrointestinal: Yes: Soft, Abdomen, Obese, Other (wound dressings changed). No: Tenderness Extremities: No: Cool, Cyanosis Integumentary: Yes: Incision (see below, midline, left abdomen). No: Jaundice, Rash Wound/Incision: Yes: Open to air (old drain site LUQ - tiny serous exudate - left covered with small gauze), Dressing Dry and Intact (with maloney drainage on gauze over midline), Dressing Removed (at all sites and changed), Unapproximated , Other (old stoma site (2.8 x 1cm) clean, red, granulating - silver nitrate used on wound base, covered with 2x2 gauze and tape; midline lower wound (6 x 3 x 0.5cm deep) clean, red, granulating - used silver nitrate on lowest aspect at edge, covered with saline-damp 2x2 gauze, dry gauze and tape; middle open spot above that wound (1.5 x 1.3 x 2cm deep) with granulating centeno, some pale exudate removed with gauze, small piece of white necrotic adherent tissue in base, left for now, dressed with 2x2 gauze tucked into wound, covered with gauze and tape) Neurological: Yes: Alert, Oriented Labs: CBC, BMP 01/28/18 05:30 01/28/18 05:30 INR, PTT INR 2.19 (0.83-1.09) H 01/28/18 05:30 Problem List - Problems (1) Open wound of abdominal wall, anterior, complicated Assessment/Plan: old drain/fistula site healed but with scant moist spot, covered with gauze - could use bandaid over prn old stoma site healing well - dressed with single 2x2 gauze covered with paper tape midline wound with two open sites, lower granulating, shallow - silver nitrate used on lower margin of wound base, saline-damp 2x2 gauze laid over wound base, then dry gauze and tape; open spot above that - 2x2 gauze tucked into wound, covered with dry gauze and tape will change daily Code(s): S31.109A - UNSP OPN WND ABD WALL, UNSP Q W/O PENET PERIT CAV, INIT Qualifiers: Encounter type: subsequent encounter Qualified Code(s): S31.109D - Unspecified open wound of abdominal wall, unspecified quadrant without penetration into peritoneal cavity, subsequent encounter (2) Disruption of internal operation (surgical) wound, not elsewhere classified , subsequent encounter Assessment/Plan: see above Code(s): T81.32XD - DISRUPTION OF INTERNAL OPERATION (SURGICAL) WOUND, NEC, SUBS (3) Acute on chronic systolic congestive heart failure Code(s): I50.23 - ACUTE ON CHRONIC SYSTOLIC (CONGESTIVE) HEART FAILURE (4) COPD without exacerbation Code(s): J44.9 - CHRONIC OBSTRUCTIVE PULMONARY DISEASE, UNSPECIFIED (5) Anticoagulant long-term use 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 (6) Anemia Code(s): D64.9 - ANEMIA, UNSPECIFIED Qualifiers: Anemia type: unspecified type Qualified Code(s): D64.9 - Anemia, unspecified (7) Diabetes mellitus type 2, noninsulin dependent Code(s): E11.9 - TYPE 2 DIABETES MELLITUS WITHOUT COMPLICATIONS (8) Hypertension Code(s): I10 - ESSENTIAL (PRIMARY) HYPERTENSION Qualifiers: Hypertension type: essential hypertension Qualified Code(s): I10 - Essential (primary) hypertension (9) Breast cancer, left Code(s): C50.912 - MALIGNANT NEOPLASM OF UNSPECIFIED SITE OF LEFT FEMALE BREAST Qualifiers: Breast location: unspecified site of breast Estrogen receptor status: positive Patient sex: female Qualified Code(s): C50.912 - Malignant neoplasm of unspecified site of left female breast; Z17.0 - Estrogen receptor positive status [ER+]
[2018-01-28] MEDS: ATORVASTATIN CA 20 MG TABLET (FP) PO SCH (21:21)
[2018-01-28] MEDS: ZOLPIDEM TARTRATE 5 MG TABLET PO PRN (21:21)
[2018-01-29 06:24] LABS: HEMATOCRIT 23.4 % (32.4-45.2); HEMOGLOBIN 7.4 GM/dL (10.7-15.3); MCH 30.4 pg (25.7-33.7); MCHC 31.6 g/dl (32.0-36.0); PLATELET COUNT 256 K/MM3 (134-434); RBC 2.44 M/mm3 (3.60-5.2); RDW 16.6 % (11.6-15.6); WHITE BLOOD COUNT 6.9 K/mm3 (4.0-10.0)
[2018-01-29 06:57] LABS: INR 1.93 (0.83-1.09); PROTHROMBIN TIME (PATIENT) 22.9 SEC (9.7-13.0)
[2018-01-29 07:16] LABS: ANION GAP 7 MMOL/L (8-16); BLOOD UREA NITROGEN 38 mg/dL (7-18); CALCIUM 8.5 mg/dL (8.5-10.1); CHLORIDE 101 mmol/L (98-107); CO2 30 mmol/L (21-32); CREATININE 1.4 mg/dL (0.55-1.3); GLUCOSE,RANDOM 100 mg/dL (74-106); LDH 161 U/L (84-246); POTASSIUM 4.1 mmol/L (3.5-5.1); SODIUM 137 mmol/L (136-145)
[2018-01-29] MEDS ORDERED: PT OWN MED DRAWER 7, Y5N ONE (08:01)
[2018-01-29] MEDS: buPROPion HCL 75 MG TABLET PO SCH ×2 (09:05→21:37)
[2018-01-29] MEDS: CARVEDILOL 12.5 MG TABLET (FP) PO SCH ×2 (09:05→21:37)
[2018-01-29] MEDS: LOSARTAN POTASSIUM 25 MG TABLET PO SCH (09:06)
[2018-01-29] MEDS ORDERED: FUROSEMIDE 40 MG/4 ML INJECTABLE VIAL IVPUSH SCH (10:00)
[2018-01-29] MEDS: NYSTATIN POWDER 100,000 UNITS/GM - 15 GM TOPICAL POWDER TP SCH ×2 (11:25→21:43)
--- NOTE | 2018-01-29 12:24 | PN ---
Progress Note, Physician History of Present Illness: Dyspnea on exertion improving with diuresis, denies orthopnea. - Current Medication List Current Medications: Active Medications Albuterol/Ipratropium (Duoneb -) 1 amp NEB Q6H PRN PRN Reason: SHORTNESS OF BREATH Last Admin: 01/28/18 07:45 Dose: 1 amp Anastrozole (Arimidex -) 1 mg PO DAILY [facility] Last Admin: 01/28/18 10:39 Dose: 1 mg Atorvastatin Calcium (Lipitor -) 20 mg PO HS [facility] Last Admin: 01/28/18 21:21 Dose: 20 mg Bupropion HCl (Wellbutrin -) 75 mg PO 0800,2000 [facility] Last Admin: 01/29/18 09:05 Dose: 75 mg Carvedilol (Coreg -) 12.5 mg PO BID [facility] Last Admin: 01/29/18 09:05 Dose: 12.5 mg Furosemide (Lasix Injection -) 60 mg IVPUSH DAILY [facility] Last Admin: 01/29/18 09:17 Dose: 60 mg Losartan Potassium (Cozaar -) 25 mg PO DAILY [facility] Last Admin: 01/29/18 09:06 Dose: 25 mg Metformin HCl (Glucophage Xr -) 500 mg PO DAILY@0700 [facility] Last Admin: 01/29/18 06:14 Dose: 500 mg Nystatin (Nystop Powder -) 1 applic TP BID [facility] Last Admin: 01/29/18 11:25 Dose: 1 applic Warfarin Sodium (Coumadin -) 5 mg PO DAILY@1800 [facility] Last Admin: 01/28/18 18:08 Dose: 5 mg Zolpidem Tartrate (Ambien -) 5 mg PO HS PRN PRN Reason: INSOMNIA Last Admin: 01/28/18 21:21 Dose: 5 mg - Objective Vital Signs: Vital Signs Temperature 97.6 F 01/29/18 09:00 Pulse Rate 88 01/29/18 09:00 Respiratory Rate 20 01/29/18 09:00 Blood Pressure 136/78 01/29/18 09:00 O2 Sat by Pulse Oximetry (%) 96 01/29/18 09:00 Constitutional: Yes: No Distress, Calm Neck: Yes: Supple Cardiovascular: Yes: Regular Rate and Rhythm, Murmur (2/6 SM) Respiratory: Yes: Regular, Diminished Gastrointestinal: Yes: Normal Bowel Sounds, Soft Edema: No Labs: CBC, BMP 01/29/18 05:30 01/29/18 05:30 INR, PTT INR 1.93 (0.83-1.09) H 01/29/18 05:30 - ....Imaging Chest X-ray: Report Reviewed (Congestion) Problem List - Problems (1) Acute on chronic systolic congestive heart failure Code(s): I50.23 - ACUTE ON CHRONIC SYSTOLIC (CONGESTIVE) HEART FAILURE (2) Acute respiratory failure with hypoxia and hypercapnia Code(s): J96.01 - ACUTE RESPIRATORY FAILURE WITH HYPOXIA; J96.02 - ACUTE RESPIRATORY FAILURE WITH HYPERCAPNIA (3) COPD (chronic obstructive pulmonary disease) Code(s): J44.9 - CHRONIC OBSTRUCTIVE PULMONARY DISEASE, UNSPECIFIED Qualifiers: COPD type: unspecified COPD Qualified Code(s): J44.9 - Chronic obstructive pulmonary disease, unspecified (4) Diabetes mellitus type 2, noninsulin dependent Code(s): E11.9 - TYPE 2 DIABETES MELLITUS WITHOUT COMPLICATIONS (5) H/O: CVA (cerebrovascular accident) Code(s): Z86.73 - PRSNL HX OF TIA (TIA), AND CEREB INFRC W/O RESID DEFICITS (6) Hypertension Code(s): I10 - ESSENTIAL (PRIMARY) HYPERTENSION Qualifiers: Hypertension type: essential hypertension Qualified Code(s): I10 - Essential (primary) hypertension Assessment/Plan 12/24/2016 Echo: Normal LV size with moderate decreased LV fxn, mild pericardial effusion, mild ASHLEY, mod MR, mild HI, TR 01/28/2018 Echo: Normal LV size with severely decreased LV fxn EF 30-35%, normal RV size and fxn, mod LAE, mod MR 1. Acute on chronic LV systolic failure resolving 2. History of CVA with left MCA thrombus 3. History of perforated sigmoid colon s/p sigmoidectomy and reversed colostomy with open wound 4. COPD with Chronic Hypoxic Respiratory Failure and long smoking history 5. HTN 6. Hypercholesterolemia 7. Anemia 8. Type 2 DM 9. Renal artery stenosis PLAN: 1. IV diuresis with monitor renal function and electrolytes, eventual aldactone 25 qd 3. Continue Carvedilol 12.5 mg BID, Lipitor 20 mg QHS and change Losartan 25 mg QD to Entresto 24/26 bid 4. Continue Warfarin as per INR 5. O2 to keep SpO2 >90% and inhaled bronchodilators as needed 6. Transfuse to maintain Hgb>8.0, wound care per surgery 7. Ischemia evaluation once euvolemic.
--- NOTE | 2018-01-29 12:25 | PN ---
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 Old drain/fistula site LUQ is essentially healed, just covering with bandaid. Old stoma site is clean, granulating, healing in by secondary intention. Midline wound has additional small open spot just superior to lower open wound, being gently dressed with gauze (saline-damp on lower). Seen and examined in bed. No specific complaints or overnight events. Primary team planning blood transfusion today per pt. She is OOB and in chair periodically throughout day. - Current Medication List Current Medications: Active Medications Albuterol/Ipratropium (Duoneb -) 1 amp NEB Q6H PRN PRN Reason: SHORTNESS OF BREATH Last Admin: 01/28/18 07:45 Dose: 1 amp Anastrozole (Arimidex -) 1 mg PO DAILY [facility] Last Admin: 01/28/18 10:39 Dose: 1 mg Atorvastatin Calcium (Lipitor -) 20 mg PO HS [facility] Last Admin: 01/28/18 21:21 Dose: 20 mg Bupropion HCl (Wellbutrin -) 75 mg PO 0800,2000 [facility] Last Admin: 01/29/18 09:05 Dose: 75 mg Carvedilol (Coreg -) 12.5 mg PO BID [facility] Last Admin: 01/29/18 09:05 Dose: 12.5 mg Furosemide (Lasix Injection -) 60 mg IVPUSH DAILY [facility] Last Admin: 01/29/18 09:17 Dose: 60 mg Losartan Potassium (Cozaar -) 25 mg PO DAILY [facility] Last Admin: 01/29/18 09:06 Dose: 25 mg Metformin HCl (Glucophage Xr -) 500 mg PO DAILY@0700 [facility] Last Admin: 01/29/18 06:14 Dose: 500 mg Nystatin (Nystop Powder -) 1 applic TP BID [facility] Last Admin: 01/29/18 11:25 Dose: 1 applic Warfarin Sodium (Coumadin -) 5 mg PO DAILY@1800 [facility] Last Admin: 01/28/18 18:08 Dose: 5 mg Zolpidem Tartrate (Ambien -) 5 mg PO HS PRN PRN Reason: INSOMNIA Last Admin: 01/28/18 21:21 Dose: 5 mg - Objective Vital Signs: Vital Signs Temperature 97.6 F 01/29/18 09:00 Pulse Rate 88 01/29/18 09:00 Respiratory Rate 20 01/29/18 09:00 Blood Pressure 136/78 01/29/18 09:00 O2 Sat by Pulse Oximetry (%) 96 01/29/18 09:00 Constitutional: Yes: Well Nourished, No Distress, Calm Eyes: Yes: Conjunctiva Clear (R pupil cloudy), EOM Intact HENT: Yes: Atraumatic, Normocephalic Gastrointestinal: Yes: Soft, Abdomen, Obese, Other (wounds as below; feels mild discomfort in LLQ when lower pole of midline wound is dressed/manipulated). No : Tenderness Extremities: No: Cool, Cyanosis Integumentary: Yes: Incision (healing - see below). No: Jaundice, Rash Wound/Incision: Yes: Dressing Dry and Intact (with some strikethrough on central dressings), Dressing Removed (and replaced - LUQ/lateral site dressed with bandaid; old stoma site with slough from AgNO3 yest wiped off and dressed with 2x2 rolled gauze; midline wounds - lower granulating, lower slough also wiped clean, dressed w/saline-damp 2x2 then dry gauze; upper cleaning up, granulation on centeno, less slough at base, dressed with 2x2 tucked into wound, covered w/dry gauze over both areas and tape), Unapproximated (x3) Neurological: Yes: Alert, Oriented Labs: CBC, BMP 01/29/18 05:30 01/29/18 05:30 INR, PTT INR 1.93 (0.83-1.09) H 01/29/18 05:30 labs noted glucose has been ok Problem List - Problems (1) Open wound of abdominal wall, anterior, complicated Assessment/Plan: old drain/fistula site healed but with tiny moist spot, covered w/bandaid old stoma site healing well - dressed with single 2x2 gauze covered with tape midline wound with two open sites, lower granulating, shallow - saline-damp 2x2 gauze laid over wound base, then dry gauze and tape; open spot above that - 2x2 gauze tucked into wound, covered with dry gauze and tape will change daily can probably shower tomorrow with all dressings OUT/OFF nurse can redo, or coordinate timing with me Code(s): S31.109A - UNSP OPN WND ABD WALL, UNSP Q W/O PENET PERIT CAV, INIT Qualifiers: Encounter type: subsequent encounter Qualified Code(s): S31.109D - Unspecified open wound of abdominal wall, unspecified quadrant without penetration into peritoneal cavity, subsequent encounter (2) Disruption of internal operation (surgical) wound, not elsewhere classified , subsequent encounter Assessment/Plan: see above Code(s): T81.32XD - DISRUPTION OF INTERNAL OPERATION (SURGICAL) WOUND, NEC, SUBS (3) Acute on chronic systolic congestive heart failure Assessment/Plan: echo noted Code(s): I50.23 - ACUTE ON CHRONIC SYSTOLIC (CONGESTIVE) HEART FAILURE (4) COPD without exacerbation Assessment/Plan: on home-level O2 NC Code(s): J44.9 - CHRONIC OBSTRUCTIVE PULMONARY DISEASE, UNSPECIFIED (5) Anticoagulant long-term use Assessment/Plan: INR dipped slightly - on home dose coumadin 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 (6) Anemia Assessment/Plan: related to chronic disease, plan for transfusion today Code(s): D64.9 - ANEMIA, UNSPECIFIED Qualifiers: Anemia type: unspecified type Qualified Code(s): D64.9 - Anemia, unspecified (7) Diabetes mellitus type 2, noninsulin dependent Assessment/Plan: sugars ok, encouraged to have only diet beverages, not regular/sugared Code(s): E11.9 - TYPE 2 DIABETES MELLITUS WITHOUT COMPLICATIONS (8) Hypertension Code(s): I10 - ESSENTIAL (PRIMARY) HYPERTENSION Qualifiers: Hypertension type: essential hypertension Qualified Code(s): I10 - Essential (primary) hypertension (9) Breast cancer, left Code(s): C50.912 - MALIGNANT NEOPLASM OF UNSPECIFIED SITE OF LEFT FEMALE BREAST Qualifiers: Breast location: unspecified site of breast Estrogen receptor status: positive Patient sex: female Qualified Code(s): C50.912 - Malignant neoplasm of unspecified site of left female breast; Z17.0 - Estrogen receptor positive status [ER+]
[2018-01-29] MEDS: ANASTROZOLE 1 MG TABLET PO SCH (14:56)
--- NOTE | 2018-01-29 15:09 | PN ---
Progress Note (short form) - Note Progress Note: PULMONARY SUBJECTIVE IMPROVEMENT VSS/AFEBRILE Constitutional: Yes: NAD Eyes: Yes: WNL HENT: Yes: WNL Neck: Yes: WNL Cardiovascular: Yes: Pulse Irregular, S1, S2 Respiratory: Yes: Bibasilar Rales Gastrointestinal: Yes: Normal Bowel Sounds, Soft Extremities: Yes: WNL Edema: No Labs: REVIEWED MEDS/IMAGES/NOTES/MICRO REVIEWED - Problems (1) Acute on chronic systolic congestive heart failure Code(s): I50.23 - ACUTE ON CHRONIC SYSTOLIC (CONGESTIVE) HEART FAILURE (2) COPD (chronic obstructive pulmonary disease) Code(s): J44.9 - CHRONIC OBSTRUCTIVE PULMONARY DISEASE, UNSPECIFIED Qualifiers: COPD type: unspecified COPD Qualified Code(s): J44.9 - Chronic obstructive pulmonary disease, unspecified (3) Diabetes mellitus type 2, noninsulin dependent Code(s): E11.9 - TYPE 2 DIABETES MELLITUS WITHOUT COMPLICATIONS (4) Hypertension Code(s): I10 - ESSENTIAL (PRIMARY) HYPERTENSION Qualifiers: Hypertension type: essential hypertension Qualified Code(s): I10 - Essential (primary) hypertension Assessment/Plan Acute on Chronic Systolic Heart Failure COPD Chronic Hypoxic Respiratory Failure h/o CVA with Left MCA thrombus HTN DM Hypercholesterolemia h/o Sigmoidectomy - Lasix - monitor urine output, creatinine - Daily weights - LASHELL-I/ARB, beta criselda - O2 to keep SpO2 >90% - inhaled bronchodilators as needed - anticoagulation Mica ROJAS MD
--- NOTE | 2018-01-29 15:16 | PN ---
Progress Note (short form) - Note Progress Note: Patient seen and examined Rerceiving packed cells Denies chest pain or shortness of breath Last Vital Signs Temp Pulse Resp BP Pulse Ox 97.6 F 88 20 136/78 96 01/29/18 09:00 01/29/18 09:00 01/29/18 09:00 01/29/18 09:00 01/29/18 09:00 HEENT: right eye scarred Oropharynx: No thrush, No mucositis Breasts: left breast induration Cor: RSR, No murmurs, No gallops Lungs: Clear to P&A Abd: Soft, Normal bowel sounds, No organomegaly, surgical dressing intact Ext:No significant edema Skin: No rashes, Integument intact CBC, BMP 01/29/18 05:30 01/29/18 05:30 Current Medications Generic Name Dose Route Start Last Admin Trade Name Freq PRN Reason Stop Dose Admin Albuterol/Ipratropium 1 amp 01/26/18 14:40 01/28/18 07:45 Duoneb - NEB 1 amp Q6H PRN Administration SHORTNESS OF BREATH Anastrozole 1 mg 01/27/18 10:00 01/29/18 14:56 Arimidex - PO 1 mg DAILY [facility] Administration Atorvastatin Calcium 20 mg 01/26/18 22:00 01/28/18 21:21 Lipitor - PO 20 mg HS [facility] Administration Bupropion HCl 75 mg 01/26/18 20:00 01/29/18 09:05 Wellbutrin - PO 75 mg 0800,2000 [facility] Administration Carvedilol 12.5 mg 01/26/18 22:00 01/29/18 09:05 Coreg - PO 12.5 mg BID [facility] Administration Furosemide 40 mg 01/29/18 12:38 Lasix Injection - IVPUSH DAILY [facility] Metformin HCl 500 mg 01/27/18 07:00 01/29/18 06:14 Glucophage Xr - PO 500 mg DAILY@0700 [facility] Administration Nystatin 1 applic 01/27/18 22:00 01/29/18 11:25 Nystop Powder - TP 1 applic BID [facility] Administration Sacubitril/Valsartan 1 tab 01/29/18 22:00 Entresto 24 Mg-26 Mg Tablet PO BID [facility] Warfarin Sodium 5 mg 01/27/18 18:00 01/28/18 18:08 Coumadin - PO 5 mg DAILY@1800 [facility] Administration Zolpidem Tartrate 5 mg 01/26/18 22:00 01/28/18 21:21 Ambien - PO 5 mg HS PRN Administration INSOMNIA 67 year with multiple co-morbid medical problems COPD, smoking , recent surgery, abscess, fistula breast ca - on arimidex a/c DM Anemia-likely multifactorial - receiving transfusion therapy await work up.
[2018-01-29] MEDS: WARFARIN NA 5 MG TABLET (UD) PO SCH ×2 (16:22→18:24)
--- NOTE | 2018-01-29 18:26 | PN ---
Progress Note (short form) - Note Progress Note: Current Medications Albuterol/Ipratropium (Duoneb -) 1 amp NEB Q6H PRN PRN Reason: SHORTNESS OF BREATH Last Admin: 01/28/18 07:45 Dose: 1 amp Anastrozole (Arimidex -) 1 mg PO DAILY [facility] Last Admin: 01/29/18 14:56 Dose: 1 mg Atorvastatin Calcium (Lipitor -) 20 mg PO HS [facility] Last Admin: 01/28/18 21:21 Dose: 20 mg Bupropion HCl (Wellbutrin -) 75 mg PO 0800,2000 [facility] Last Admin: 01/29/18 09:05 Dose: 75 mg Carvedilol (Coreg -) 12.5 mg PO BID [facility] Last Admin: 01/29/18 09:05 Dose: 12.5 mg Furosemide (Lasix Injection -) 40 mg IVPUSH DAILY [facility] Metformin HCl (Glucophage Xr -) 500 mg PO DAILY@0700 [facility] Last Admin: 01/29/18 06:14 Dose: 500 mg Nystatin (Nystop Powder -) 1 applic TP BID [facility] Last Admin: 01/29/18 11:25 Dose: 1 applic Sacubitril/Valsartan (Entresto 24 Mg-26 Mg Tablet) 1 tab PO BID [facility] Warfarin Sodium (Coumadin -) 5 mg PO DAILY@1800 [facility] Last Admin: 01/29/18 16:22 Dose: 5 mg Zolpidem Tartrate (Ambien -) 5 mg PO HS PRN PRN Reason: INSOMNIA Last Admin: 01/28/18 21:21 Dose: 5 mg Laboratory Results - last 24 hr 01/28/18 01/29/18 01/29/18 18:04 05:30 05:30 WBC RBC Hgb Hct MCV MCH MCHC RDW Plt Count MPV ESR 86 H PT with INR INR Sodium 137 Potassium 4.1 Chloride 101 Carbon Dioxide 30 Anion Gap 7 L BUN 38 H Creatinine 1.4 H Creat Clearance w eGFR 37.28 POC Glucometer 111 Random Glucose 100 Calcium 8.5 LD Total 161 C-Reactive Protein 1.1 H Vitamin B12 616 Blood Type Antibody Screen Crossmatch 01/29/18 01/29/18 01/29/18 05:30 05:30 05:51 WBC 6.9 RBC 2.44 L Hgb 7.4 L Hct 23.4 L MCV 96.0 MCH 30.4 MCHC 31.6 L RDW 16.6 H Plt Count 256 MPV 8.0 ESR PT with INR 22.90 H INR 1.93 H Sodium Potassium Chloride Carbon Dioxide Anion Gap BUN Creatinine Creat Clearance w eGFR POC Glucometer 143 Random Glucose Calcium LD Total C-Reactive Protein Vitamin B12 Blood Type Antibody Screen Crossmatch 01/29/18 01/29/18 11:25 16:44 WBC RBC Hgb Hct MCV MCH MCHC RDW Plt Count MPV ESR PT with INR INR Sodium Potassium Chloride Carbon Dioxide Anion Gap BUN Creatinine Creat Clearance w eGFR POC Glucometer 181 Random Glucose Calcium LD Total C-Reactive Protein Vitamin B12 Blood Type A POSITIVE Antibody Screen Negative Crossmatch See Detail Vital Signs Temperature 98.3 F 01/29/18 14:00 Pulse Rate 80 01/29/18 14:00 Respiratory Rate 20 01/29/18 09:00 Blood Pressure 118/45 L 01/29/18 14:00 O2 Sat by Pulse Oximetry (%) 96 01/29/18 09:00 C:: no new complaints; received PC transf ``````````````````````````` skin--pallor eyes--anicteric; Rt cornea opaque lungs--BS distant; unlabored heart--RR abd--benign ext--no edema neuro--fully alert; coherent `````````````````````````````````` Summ > CHF--as denoted by CXR; echo shows diffuse/global hypokinesis; Cardiology note and changes noted; start Entresto though she is stating that she "cannot afford the cost" as OP. If she cannot afford this medication; may need to consider use of Dig/hydralazine/ Nitrates ?? check CXR in AM > anemia--not likely to be due to GI bleeding; await heme w/u > COPD--oxygen dependent 2nd Tobacco use. > DM--on Metformin; but may need to stop if Bun/cr rises further > azotemia--2nd intra-vasc contraction; that may limit efforts with diuresis > [facility] a/c--placed on a/c for CVA prevention from MCA thrombosis; adjust as needed ~~~~~~~~~~~~ Dr Caputo Problem List - Problems (1) CHF (congestive heart failure) Code(s): I50.9 - HEART FAILURE, UNSPECIFIED Qualifiers: Heart failure type: unspecified Heart failure chronicity: unspecified Qualified Code(s): I50.9 - Heart failure, unspecified (2) Anemia Code(s): D64.9 - ANEMIA, UNSPECIFIED Qualifiers: Anemia type: unspecified type Qualified Code(s): D64.9 - Anemia, unspecified (3) Hypercholesterolemia Code(s): E78.00 - PURE HYPERCHOLESTEROLEMIA, UNSPECIFIED (4) COPD (chronic obstructive pulmonary disease) Code(s): J44.9 - CHRONIC OBSTRUCTIVE PULMONARY DISEASE, UNSPECIFIED Qualifiers: COPD type: unspecified COPD Qualified Code(s): J44.9 - Chronic obstructive pulmonary disease, unspecified (5) Anticoagulant long-term use Code(s): Z79.01 - SCENERY BUILDER (CURRENT) USE OF 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 (6) Diabetes mellitus type 2, noninsulin dependent Code(s): E11.9 - TYPE 2 DIABETES MELLITUS WITHOUT COMPLICATIONS (7) Breast cancer, left Code(s): C50.912 - MALIGNANT NEOPLASM OF UNSPECIFIED SITE OF LEFT FEMALE BREAST Qualifiers: Breast location: unspecified site of breast Estrogen receptor status: positive Patient sex: female Qualified Code(s): C50.912 - Malignant neoplasm of unspecified site of left female breast; Z17.0 - Estrogen receptor positive status [ER+] (8) Cancer of left breast Code(s): C50.912 - MALIGNANT NEOPLASM OF UNSPECIFIED SITE OF LEFT FEMALE BREAST Qualifiers: Breast location: upper outer quadrant of breast Estrogen receptor status: positive Patient sex: female Qualified Code(s): C50.412 - Malignant neoplasm of upper-outer quadrant of left female breast (9) Open abdominal wall wound Code(s): S31.109A - UNSP OPN WND ABD WALL, UNSP Q W/O PENET PERIT CAV, INIT Qualifiers: Encounter type: subsequent encounter Qualified Code(s): S31.109D - Unspecified open wound of abdominal wall, unspecified quadrant without penetration into peritoneal cavity, subsequent encounter (10) Depression Code(s): F32.9 - MAJOR DEPRESSIVE DISORDER, SINGLE EPISODE, UNSPECIFIED Qualifiers: Depression Type: unspecified Qualified Code(s): F32.9 - Major depressive disorder, single episode, unspecified (11) Visual impairment Code(s): H54.7 - UNSPECIFIED VISUAL LOSS
[2018-01-29 19:15] LABS: FREE KAPPA,SERUM 58.4 mg/L (3.3-19.4)
[2018-01-29] MEDS: ATORVASTATIN CA 20 MG TABLET (FP) PO SCH (21:38)
[2018-01-29] MEDS: SACUBITRIL/VALSARTAN 24 MG-26 MG TABLET PO SCH (21:44)
[2018-01-29] MEDS: ALBUTEROL SO4 2.5/IPRATROPIUM 0.5 INH SOL 3 ML VIAL.NEB. NEB PRN (22:14)
[2018-01-29] MEDS: ZOLPIDEM TARTRATE 5 MG TABLET PO PRN (22:48)
[2018-01-30 06:36] LABS: HEMATOCRIT 27.6 % (32.4-45.2); MCH 30.8 pg (25.7-33.7); MCHC 32.8 g/dl (32.0-36.0); MEAN CELL VOLUME 94.1 fl (80-96); PLATELET COUNT 261 K/MM3 (134-434); RBC 2.93 M/mm3 (3.60-5.2); RDW 17.2 % (11.6-15.6); WHITE BLOOD COUNT 7.2 K/mm3 (4.0-10.0)
[2018-01-30 06:59] LABS: ALK PHOS 95 U/L (45-117); ANION GAP 8 MMOL/L (8-16); BILIRUBIN,TOTAL 0.4 mg/dL (0.2-1); BLOOD UREA NITROGEN 35 mg/dL (7-18); CALCIUM 8.8 mg/dL (8.5-10.1); CHLORIDE 102 mmol/L (98-107); CO2 30 mmol/L (21-32); CREATININE 1.2 mg/dL (0.55-1.3); GLUCOSE,RANDOM 111 mg/dL (74-106); POTASSIUM 4.2 mmol/L (3.5-5.1); SGOT/AST 18 U/L (15-37); SGPT/ALT 21 U/L (13-61); SODIUM 140 mmol/L (136-145); TOT PROT 6.1 g/dl (6.4-8.2)
[2018-01-30 07:42] LABS: INR 1.79 (0.83-1.09); PROTHROMBIN TIME (PATIENT) 21.3 SEC (9.7-13.0)
[2018-01-30] MEDS: CARVEDILOL 12.5 MG TABLET (FP) PO SCH ×2 (09:38→22:41)
[2018-01-30] MEDS: FUROSEMIDE 40 MG/4 ML INJECTABLE VIAL IVPUSH SCH (09:39)
[2018-01-30] MEDS: SACUBITRIL/VALSARTAN 24 MG-26 MG TABLET PO SCH ×3 (09:39→22:41)
[2018-01-30] MEDS: buPROPion HCL 75 MG TABLET PO SCH ×2 (09:39→22:40)
[2018-01-30] MEDS: ANASTROZOLE 1 MG TABLET PO SCH (09:39)
[2018-01-30] MEDS: NYSTATIN POWDER 100,000 UNITS/GM - 15 GM TOPICAL POWDER TP SCH ×2 (09:39→22:42)
[2018-01-30] MEDS ORDERED: PT OWN MED DRAWER 7, Y5N ONE ×2 (11:07→21:19)
--- NOTE | 2018-01-30 11:21 | PN ---
Progress Note, Physician Chief Complaint: Events noted Not in distress Intermittent SOB History of Present Illness: Patient was seen and examined. Awake and alert. Chart was reviewed Denies chest pain or palpitations Echocardiography report noted with worsened LVEF - Current Medication List Current Medications: Active Medications Albuterol/Ipratropium (Duoneb -) 1 amp NEB Q6H PRN PRN Reason: SHORTNESS OF BREATH Last Admin: 01/29/18 22:14 Dose: 1 amp Anastrozole (Arimidex -) 1 mg PO DAILY [facility] Last Admin: 01/30/18 09:39 Dose: 1 mg Atorvastatin Calcium (Lipitor -) 20 mg PO HS [facility] Last Admin: 01/29/18 21:38 Dose: 20 mg Bupropion HCl (Wellbutrin -) 75 mg PO 0800,2000 [facility] Last Admin: 01/30/18 09:39 Dose: 75 mg Carvedilol (Coreg -) 12.5 mg PO BID [facility] Last Admin: 01/30/18 09:38 Dose: 12.5 mg Furosemide (Lasix Injection -) 40 mg IVPUSH DAILY [facility] Last Admin: 01/30/18 09:39 Dose: 40 mg Metformin HCl (Glucophage Xr -) 500 mg PO DAILY@0700 [facility] Last Admin: 01/30/18 06:10 Dose: 500 mg Nystatin (Nystop Powder -) 1 applic TP BID [facility] Last Admin: 01/30/18 09:39 Dose: 1 applic Sacubitril/Valsartan (Entresto 24 Mg-26 Mg Tablet) 1 tab PO BID [facility] Last Admin: 01/30/18 09:39 Dose: Not Given Warfarin Sodium (Coumadin -) 5 mg PO DAILY@1800 [facility] Last Admin: 01/29/18 18:24 Dose: Not Given Zolpidem Tartrate (Ambien -) 5 mg PO HS PRN PRN Reason: INSOMNIA Last Admin: 01/29/18 22:48 Dose: 5 mg - Objective Vital Signs: Vital Signs Temperature 97.9 F 01/30/18 06:00 Pulse Rate 74 01/30/18 06:00 Respiratory Rate 20 01/30/18 06:00 Blood Pressure 143/68 01/30/18 06:00 O2 Sat by Pulse Oximetry (%) 97 01/29/18 21:00 Eyes: Yes: PERRL HENT: Yes: Atraumatic Neck: Yes: Supple Cardiovascular: Yes: Regular Rate and Rhythm, S1, S2 Respiratory: Yes: CTA Bilaterally Gastrointestinal: Yes: Normal Bowel Sounds, Soft. No: Tenderness Edema: No Labs: CBC, BMP 01/30/18 06:00 01/30/18 05:30 INR, PTT INR 1.79 (0.83-1.09) H 01/30/18 05:35 Problem List - Problems (1) Hypercholesterolemia Code(s): E78.00 - PURE HYPERCHOLESTEROLEMIA, UNSPECIFIED (2) Acute on chronic systolic congestive heart failure Code(s): I50.23 - ACUTE ON CHRONIC SYSTOLIC (CONGESTIVE) HEART FAILURE (3) Anemia Code(s): D64.9 - ANEMIA, UNSPECIFIED Qualifiers: Anemia type: unspecified type Qualified Code(s): D64.9 - Anemia, unspecified (4) Anticoagulant long-term use Code(s): Z79.01 - LONGTERM (CURRENT) USE OF 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 (5) Bilateral pleural effusion Code(s): J90 - PLEURAL EFFUSION, NOT ELSEWHERE CLASSIFIED (6) COPD (chronic obstructive pulmonary disease) Code(s): J44.9 - CHRONIC OBSTRUCTIVE PULMONARY DISEASE, UNSPECIFIED Qualifiers: COPD type: unspecified COPD Qualified Code(s): J44.9 - Chronic obstructive pulmonary disease, unspecified (7) Diabetes mellitus type 2, noninsulin dependent Code(s): E11.9 - TYPE 2 DIABETES MELLITUS WITHOUT COMPLICATIONS (8) H/O: CVA (cerebrovascular accident) Code(s): Z86.73 - PRSNL HX OF TIA (TIA), AND CEREB INFRC W/O RESID DEFICITS (9) Hypertension Code(s): I10 - ESSENTIAL (PRIMARY) HYPERTENSION Qualifiers: Hypertension type: essential hypertension Qualified Code(s): I10 - Essential (primary) hypertension (10) Left renal artery stenosis Code(s): I70.1 - ATHEROSCLEROSIS OF RENAL ARTERY (11) Perforated sigmoid colon Code(s): K63.1 - PERFORATION OF INTESTINE (NONTRAUMATIC) Assessment/Plan 12/24/2016 Echo: Normal LV size with moderate decreased LV fxn, mild pericardial effusion, mild ASHLEY, mod MR, mild IL, TR 01/28/2018 Echo: Normal LV size with severely decreased LV fxn EF 30-35%, normal RV size and fxn, mod LAE, mod MR 1. Acute on chronic LV systolic failure 2. History of CVA with left MCA thrombus 3. History of perforated sigmoid colon s/p sigmoidectomy and reversed colostomy 4. COPD with Chronic Hypoxic Respiratory Failure and long smoking history 5. HTN 6. Hypercholesterolemia 7. Anemia 8. Type 2 DM 9. Renal artery stenosis PLAN: 1. IV diuresis with monitor renal function and electrolytes. May consider Aldactone 25 mg QD if renal function permits 3. Continue Carvedilol 12.5 mg BID, Lipitor 20 mg QHS and switched to Entresto 24/ bid as per Dr. Coombs. 4. Continue Warfarin as per INR 5. O2 to keep SpO2 >90% and inhaled bronchodilators as needed 6. Transfuse to maintain Hgb>8.0 7.Further cardiac evaluation to follow including possible nuclear MPI +/- cardiac catheterization/coronary angiography, but probably could be arranged as outpatient. Will also check office records again. If LVEF remains below 35%, she may need ICD as primary prophylaxis. Further plans are to follow Chandu Mahoney MD
[2018-01-30] MEDS: WARFARIN NA 5 MG TABLET (UD) PO SCH ×2 (16:17→19:08)
--- NOTE | 2018-01-30 19:50 | PN ---
Progress Note (short form) - Note Progress Note: Current Medications Albuterol/Ipratropium (Duoneb -) 1 amp NEB Q6H PRN PRN Reason: SHORTNESS OF BREATH Last Admin: 01/29/18 22:14 Dose: 1 amp Anastrozole (Arimidex -) 1 mg PO DAILY [facility] Last Admin: 01/30/18 09:39 Dose: 1 mg Atorvastatin Calcium (Lipitor -) 20 mg PO HS [facility] Last Admin: 01/29/18 21:38 Dose: 20 mg Bupropion HCl (Wellbutrin -) 75 mg PO 0800,2000 [facility] Last Admin: 01/30/18 09:39 Dose: 75 mg Carvedilol (Coreg -) 12.5 mg PO BID [facility] Last Admin: 01/30/18 09:38 Dose: 12.5 mg Furosemide (Lasix Injection -) 40 mg IVPUSH DAILY [facility] Last Admin: 01/30/18 09:39 Dose: 40 mg Metformin HCl (Glucophage Xr -) 500 mg PO DAILY@0700 [facility] Last Admin: 01/30/18 06:10 Dose: 500 mg Nystatin (Nystop Powder -) 1 applic TP BID [facility] Last Admin: 01/30/18 09:39 Dose: 1 applic Sacubitril/Valsartan (Entresto 24 Mg-26 Mg Tablet) 1 tab PO BID [facility] Last Admin: 01/30/18 11:31 Dose: 1 tab Warfarin Sodium (Coumadin -) 5 mg PO DAILY@1800 [facility] Last Admin: 01/30/18 19:08 Dose: Not Given Zolpidem Tartrate (Ambien -) 5 mg PO HS PRN PRN Reason: INSOMNIA Last Admin: 01/29/18 22:48 Dose: 5 mg Laboratory Results - last 24 hr 01/30/18 01/30/18 01/30/18 05:30 05:35 06:00 WBC 7.2 RBC 2.93 L Hgb 9.0 L Hct 27.6 L D MCV 94.1 MCH 30.8 MCHC 32.8 RDW 17.2 H Plt Count 261 MPV 8.0 PT with INR 21.30 H INR 1.79 H Sodium 140 Potassium 4.2 Chloride 102 Carbon Dioxide 30 Anion Gap 8 BUN 35 H Creatinine 1.2 Creat Clearance w eGFR 44.54 POC Glucometer Random Glucose 111 H Calcium 8.8 Total Bilirubin 0.4 AST 18 ALT 21 Alkaline Phosphatase 95 Total Protein 6.1 L Albumin 3.0 L 01/30/18 06:09 WBC RBC Hgb Hct MCV MCH MCHC RDW Plt Count MPV PT with INR INR Sodium Potassium Chloride Carbon Dioxide Anion Gap BUN Creatinine Creat Clearance w eGFR POC Glucometer 136 Random Glucose Calcium Total Bilirubin AST ALT Alkaline Phosphatase Total Protein Albumin Vital Signs Temperature 98.3 F 01/30/18 18:00 Pulse Rate 77 01/30/18 18:00 Respiratory Rate 20 01/30/18 18:00 Blood Pressure 103/54 L 01/30/18 18:00 O2 Sat by Pulse Oximetry (%) 97 01/30/18 10:00 C:: no new complaints; received PC transf ``````````````````````````` skin--no acute lesions eyes--anicteric; Rt cornea opaque lungs--BS distant; unlabored heart--RR abd--benign ext--no edema neuro--fully alert; coherent `````````````````````````````````` Summ > CHF--as denoted by CXR, though there has been some improvement there is still notable failure/pulm congestion; echo shows diffuse/global hypokinesis (see cardio note) which may perhaps require placement of ICD; now on Entresto; will hope to up to max dose prior to d/c; cont current agents for now. 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 > DM--on Metformin; but may need to stop if Bun/cr rises further; but seems to be unchanged thus far; will check daily chems > azotemia--2nd intra-vasc contraction; stable post PC transfusion > [facility] a/c--placed on a/c for CVA prevention from MCA thrombosis; adjust as needed ~~~~~~~~~~~~ Dr Caputo Problem List - Problems (1) CHF (congestive heart failure) Code(s): I50.9 - HEART FAILURE, UNSPECIFIED Qualifiers: Heart failure type: unspecified Heart failure chronicity: unspecified Qualified Code(s): I50.9 - Heart failure, unspecified (2) Anemia Code(s): D64.9 - ANEMIA, UNSPECIFIED Qualifiers: Anemia type: unspecified type Qualified Code(s): D64.9 - Anemia, unspecified (3) Hypercholesterolemia Code(s): E78.00 - PURE HYPERCHOLESTEROLEMIA, UNSPECIFIED (4) COPD (chronic obstructive pulmonary disease) Code(s): J44.9 - CHRONIC OBSTRUCTIVE PULMONARY DISEASE, UNSPECIFIED Qualifiers: COPD type: unspecified COPD Qualified Code(s): J44.9 - Chronic obstructive pulmonary disease, unspecified (5) Anticoagulant long-term use Code(s): Z79.01 - 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 DIRECTOR (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) USE OF 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 (6) Diabetes mellitus type 2, noninsulin dependent Code(s): E11.9 - TYPE 2 DIABETES MELLITUS WITHOUT COMPLICATIONS (7) Breast cancer, left Code(s): C50.912 - MALIGNANT NEOPLASM OF UNSPECIFIED SITE OF LEFT FEMALE BREAST Qualifiers: Breast location: unspecified site of breast Estrogen receptor status: positive Patient sex: female Qualified Code(s): C50.912 - Malignant neoplasm of unspecified site of left female breast; Z17.0 - Estrogen receptor positive status [ER+] (8) Cancer of left breast Code(s): C50.912 - MALIGNANT NEOPLASM OF UNSPECIFIED SITE OF LEFT FEMALE BREAST Qualifiers: Breast location: upper outer quadrant of breast Estrogen receptor status: positive Patient sex: female Qualified Code(s): C50.412 - Malignant neoplasm of upper-outer quadrant of left female breast (9) Open abdominal wall wound Code(s): S31.109A - UNSP OPN WND ABD WALL, UNSP Q W/O PENET PERIT CAV, INIT Qualifiers: Encounter type: subsequent encounter Qualified Code(s): S31.109D - Unspecified open wound of abdominal wall, unspecified quadrant without penetration into peritoneal cavity, subsequent encounter (10) Depression Code(s): F32.9 - MAJOR DEPRESSIVE DISORDER, SINGLE EPISODE, UNSPECIFIED Qualifiers: Depression Type: unspecified Qualified Code(s): F32.9 - Major depressive disorder, single episode, unspecified (11) Visual impairment Code(s): H54.7 - UNSPECIFIED VISUAL LOSS
[2018-01-30] MEDS ORDERED: WARFARIN NA 2 MG TABLET (UD) PO ONE (19:57)
[2018-01-30] MEDS: ALBUTEROL SO4 2.5/IPRATROPIUM 0.5 INH SOL 3 ML VIAL.NEB. NEB PRN (21:03)
[2018-01-30] MEDS: ZOLPIDEM TARTRATE 5 MG TABLET PO PRN (22:40)
[2018-01-30] MEDS: ATORVASTATIN CA 20 MG TABLET (FP) PO SCH (22:40)
[2018-01-31 06:35] LABS: HEMATOCRIT 26.9 % (32.4-45.2); HEMOGLOBIN 8.8 GM/dL (10.7-15.3); MCH 30.7 pg (25.7-33.7); MCHC 32.8 g/dl (32.0-36.0); MEAN CELL VOLUME 93.5 fl (80-96); MEAN PLT VOLUME 7.9 fl (7.5-11.1); PLATELET COUNT 257 K/MM3 (134-434); RBC 2.87 M/mm3 (3.60-5.2); RDW 17.2 % (11.6-15.6); WHITE BLOOD COUNT 6.4 K/mm3 (4.0-10.0)
[2018-01-31 07:03] LABS: INR 1.81 (0.83-1.09); PROTHROMBIN TIME (PATIENT) 21.5 SEC (9.7-13.0)
[2018-01-31 07:38] LABS: ANION GAP 9 MMOL/L (8-16); BLOOD UREA NITROGEN 39 mg/dL (7-18); CALCIUM 8.8 mg/dL (8.5-10.1); CHLORIDE 102 mmol/L (98-107); CO2 28 mmol/L (21-32); CREATININE 1.2 mg/dL (0.55-1.3); GLUCOSE,RANDOM 106 mg/dL (74-106); POTASSIUM 4.4 mmol/L (3.5-5.1); SODIUM 139 mmol/L (136-145)
[2018-01-31] MEDS: FUROSEMIDE 40 MG/4 ML INJECTABLE VIAL IVPUSH SCH (11:04)
[2018-01-31] MEDS: ANASTROZOLE 1 MG TABLET PO SCH (11:04)
[2018-01-31] MEDS: SACUBITRIL/VALSARTAN 24 MG-26 MG TABLET PO SCH ×2 (11:04→21:45)
[2018-01-31] MEDS: buPROPion HCL 75 MG TABLET PO SCH ×2 (11:04→21:45)
[2018-01-31] MEDS: CARVEDILOL 12.5 MG TABLET (FP) PO SCH ×2 (11:04→21:45)
[2018-01-31] MEDS: NYSTATIN POWDER 100,000 UNITS/GM - 15 GM TOPICAL POWDER TP SCH ×2 (11:05→21:45)
--- NOTE | 2018-01-31 12:19 | PN ---
Progress Note, Physician Chief Complaint: Events noted Not in distress History of Present Illness: Patient was seen and examined. Awake and alert. Chart was reviewed Denies chest pain, SOB or palpitations - Current Medication List Current Medications: Active Medications Albuterol/Ipratropium (Duoneb -) 1 amp NEB Q6H PRN PRN Reason: SHORTNESS OF BREATH Last Admin: 01/30/18 21:03 Dose: 1 amp Anastrozole (Arimidex -) 1 mg PO DAILY [facility] BEDS [facility] Last Admin: 01/31/18 11:04 Dose: 1 mg Atorvastatin Calcium (Lipitor -) 20 mg PO HS [facility] 234 BEDS [facility] Last Admin: 01/30/18 22:40 Dose: 20 mg Bupropion HCl (Wellbutrin -) 75 mg PO 0800,2000 [facility]S [facility] Last Admin: 01/31/18 11:04 Dose: 75 mg Carvedilol (Coreg -) 12.5 mg PO BID [facility] 234 BEDS AT [facility] Last Admin: 01/31/18 11:04 Dose: 12.5 mg Furosemide (Lasix Injection -) 40 mg IVPUSH DAILY [facility] 234 BEDS AT [facility] Last Admin: 01/31/18 11:04 Dose: 40 mg Metformin HCl (Glucophage Xr -) 500 mg PO DAILY@0700 [facility] 234 BEDS AT [facility] Last Admin: 01/31/18 06:24 Dose: 500 mg Nystatin (Nystop Powder -) 1 applic TP BID [facility] 234 BEDS [facility] Last Admin: 01/31/18 11:05 Dose: 1 applic Sacubitril/Valsartan (Entresto 24 Mg-26 Mg Tablet) 1 tab PO BID [facility] 234 B[facility]S AT [facility] Last Admin: 01/31/18 11:04 Dose: 1 tab Warfarin Sodium (Coumadin -) 5 mg PO DAILY@1800 [facility] 234 BEDS AT [facility] Last Admin: 01/30/18 19:08 Dose: Not Given Zolpidem Tartrate (Ambien -) 5 mg PO HS PRN PRN Reason: INSOMNIA Last Admin: 01/30/18 22:40 Dose: 5 mg - Objective Vital Signs: Vital Signs Temperature 98.2 F 01/31/18 05:00 Pulse Rate 81 01/31/18 05:00 Respiratory Rate 20 01/31/18 05:00 Blood Pressure 110/56 L 01/31/18 05:00 O2 Sat by Pulse Oximetry (%) 98 01/30/18 21:00 HENT: Yes: Atraumatic Neck: Yes: Supple Cardiovascular: Yes: Regular Rate and Rhythm, S1, S2 Respiratory: Yes: Diminished Gastrointestinal: Yes: Normal Bowel Sounds, Soft. No: Tenderness Edema: No Additional Findings/Remarks: - Review of Systems Constitutional: denies: Chills, Fever Cardiovascular: denies: Palpitations, (+) Shortness of Breath. denies: Chest Pain Respiratory: reports: SOB. denies: Cough, Hemoptysis, Orthopnea, PND, Wheezing Gastrointestinal: denies: Abdominal Pain, Constipation, Diarrhea, Melena, Nausea , Rectal Bleeding, Vomiting Genitourinary: denies: Dysuria, Hematuria Neurological: denies: Dizziness, Headache, Seizure, Syncope Labs: CBC, BMP 01/31/18 05:30 01/31/18 05:30 INR, PTT INR 1.81 (0.83-1.09) H 01/31/18 05:30 Problem List - Problems (1) Hypercholesterolemia Code(s): E78.00 - PURE HYPERCHOLESTEROLEMIA, UNSPECIFIED (2) Acute on chronic systolic congestive heart failure Code(s): I50.23 - ACUTE ON CHRONIC SYSTOLIC (CONGESTIVE) HEART FAILURE (3) Anemia Code(s): D64.9 - ANEMIA, UNSPECIFIED Qualifiers: Anemia type: unspecified type Qualified Code(s): D64.9 - Anemia, unspecified (4) Anticoagulant long-term use Code(s): Z79.01 - ALF (CURRENT) USE OF 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 (5) Bilateral pleural effusion Code(s): J90 - PLEURAL EFFUSION, NOT ELSEWHERE CLASSIFIED (6) COPD (chronic obstructive pulmonary disease) Code(s): J44.9 - CHRONIC OBSTRUCTIVE PULMONARY DISEASE, UNSPECIFIED Qualifiers: COPD type: unspecified COPD Qualified Code(s): J44.9 - Chronic obstructive pulmonary disease, unspecified (7) Diabetes mellitus type 2, noninsulin dependent Code(s): E11.9 - TYPE 2 DIABETES MELLITUS WITHOUT COMPLICATIONS (8) H/O: CVA (cerebrovascular accident) Code(s): Z86.73 - PRSNL HX OF TIA (TIA), AND CEREB INFRC W/O RESID DEFICITS (9) Hypertension Code(s): I10 - ESSENTIAL (PRIMARY) HYPERTENSION Qualifiers: Hypertension type: essential hypertension Qualified Code(s): I10 - Essential (primary) hypertension (10) Left renal artery stenosis Code(s): I70.1 - ATHEROSCLEROSIS OF RENAL ARTERY (11) Perforated sigmoid colon Code(s): K63.1 - PERFORATION OF INTESTINE (NONTRAUMATIC) Assessment/Plan 1. Acute on chronic LV systolic failure 2. History of CVA with left MCA thrombus 3. History of perforated sigmoid colon s/p sigmoidectomy and reversed colostomy 4. COPD with Chronic Hypoxic Respiratory Failure and long smoking history 5. HTN 6. Hypercholesterolemia 7. Anemia 8. Type 2 DM 9. Renal artery stenosis PLAN: 1. IV diuresis with monitor renal function and electrolytes. May consider Aldactone 25 mg QD if renal function permits 3. Continue Carvedilol 12.5 mg BID, Lipitor 20 mg QHS and switched to Entresto 24/ bid as per Dr. Coombs. 4. Continue Warfarin as per INR 5. O2 to keep SpO2 >90% and inhaled bronchodilators as needed 6. Transfuse to maintain Hgb>8.0 7.Further cardiac evaluation to follow including possible nuclear MPI +/- cardiac catheterization/coronary angiography, but probably could be arranged as outpatient. LVEF needs to be followed with optimal medical therapy and if LVEF remains below 35%, she may need ICD as primary prophylaxis. Further plans are to follow Chandu Mahoney MD
--- NOTE | 2018-01-31 15:18 | PN ---
Progress Note (short form) - Note Progress Note: Current Medications Albuterol/Ipratropium (Duoneb -) 1 amp NEB Q6H PRN PRN Reason: SHORTNESS OF BREATH Last Admin: 01/30/18 21:03 Dose: 1 amp Anastrozole (Arimidex -) 1 mg PO DAILY [facility] Last Admin: 01/31/18 11:04 Dose: 1 mg Atorvastatin Calcium (Lipitor -) 20 mg PO HS [facility] Last Admin: 01/30/18 22:40 Dose: 20 mg Bupropion HCl (Wellbutrin -) 75 mg PO 0800,2000 [facility] Last Admin: 01/31/18 11:04 Dose: 75 mg Carvedilol (Coreg -) 12.5 mg PO BID [facility] Last Admin: 01/31/18 11:04 Dose: 12.5 mg Furosemide (Lasix Injection -) 40 mg IVPUSH DAILY [facility] Last Admin: 01/31/18 11:04 Dose: 40 mg Metformin HCl (Glucophage Xr -) 500 mg PO DAILY@0700 [facility] Last Admin: 01/31/18 06:24 Dose: 500 mg Nystatin (Nystop Powder -) 1 applic TP BID [facility] Last Admin: 01/31/18 11:05 Dose: 1 applic Sacubitril/Valsartan (Entresto 24 Mg-26 Mg Tablet) 1 tab PO BID [facility] Last Admin: 01/31/18 11:04 Dose: 1 tab Warfarin Sodium (Coumadin -) 7.5 mg PO DAILY@1800 [facility] Zolpidem Tartrate (Ambien -) 5 mg PO HS PRN PRN Reason: INSOMNIA Last Admin: 01/30/18 22:40 Dose: 5 mg Laboratory Results - last 24 hr 01/29/18 01/31/18 01/31/18 05:30 05:27 05:30 WBC 6.4 RBC 2.87 L Hgb 8.8 L Hct 22.8 L 26.9 L MCV 93.5 MCH 30.7 MCHC 32.8 RDW 17.2 H Plt Count 257 MPV 7.9 PT with INR INR Sodium Potassium Chloride Carbon Dioxide Anion Gap BUN Creatinine Creat Clearance w eGFR POC Glucometer 138 Random Glucose Calcium Folate 1810 Folate Hemolysate 412.6 01/31/18 01/31/18 05:30 05:30 WBC RBC Hgb Hct MCV MCH MCHC RDW Plt Count MPV PT with INR 21.50 H INR 1.81 H Sodium 139 Potassium 4.4 Chloride 102 Carbon Dioxide 28 Anion Gap 9 BUN 39 H Creatinine 1.2 Creat Clearance w eGFR 44.54 POC Glucometer Random Glucose 106 Calcium 8.8 Folate Folate Hemolysate Vital Signs Temp 98.2 F 01/31/18 14:00 Pulse 70 01/31/18 14:00 Resp 20 01/31/18 14:00 BP 104/54 L 01/31/18 14:00 Pulse Ox 98 01/30/18 21:00 Intake & Output 01/30/18 01/31/18 01/31/18 23:59 11:59 23:59 Intake Total 10 10 Balance 10 10 Weight 169 lb 12.8 oz Intake: IV 10 10 SALINE LOCK 10 10 Other: Voiding Method Toilet # Unmeasured Voids Void 1 Weight Measurement Method Standing Scale C:: no new complaints ``````````````````````````` skin--no acute lesions eyes--anicteric; Rt cornea opaque lungs--BS distant; unlabored heart--RR abd--benign ext--no edema neuro--fully alert; coherent `````````````````````````````````` Summ > CHF--now on Entresto (along with BB; Lasix, warf); echo shows diffuse/global hypokinesis (see cardio note) which may perhaps require placement of ICD; cont current agents for now. 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 > DM--on Metformin; but may need to stop if Bun/cr rises further; but seems to be unchanged thus far; will check daily chems > azotemia--2nd intra-vasc contraction; stable post PC transfusion > Nursing Home a/c--placed on a/c for CVA prevention from MCA thrombosis; adjust as needed ~~~~~~~~~~~~ Dr Caputo Problem List - Problems (1) CHF (congestive heart failure) Code(s): I50.9 - HEART FAILURE, UNSPECIFIED Qualifiers: Heart failure type: unspecified Heart failure chronicity: unspecified Qualified Code(s): I50.9 - Heart failure, unspecified (2) Anemia Code(s): D64.9 - ANEMIA, UNSPECIFIED Qualifiers: Anemia type: unspecified type Qualified Code(s): D64.9 - Anemia, unspecified (3) Hypercholesterolemia Code(s): E78.00 - PURE HYPERCHOLESTEROLEMIA, UNSPECIFIED (4) COPD (chronic obstructive pulmonary disease) Code(s): J44.9 - CHRONIC OBSTRUCTIVE PULMONARY DISEASE, UNSPECIFIED Qualifiers: COPD type: unspecified COPD Qualified Code(s): J44.9 - Chronic obstructive pulmonary disease, unspecified (5) Anticoagulant long-term use Code(s): Z79.01 - CAREER REPRESENTATIVE (CURRENT) USE OF 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 (6) Diabetes mellitus type 2, noninsulin dependent Code(s): E11.9 - TYPE 2 DIABETES MELLITUS WITHOUT COMPLICATIONS (7) Breast cancer, left Code(s): C50.912 - MALIGNANT NEOPLASM OF UNSPECIFIED SITE OF LEFT FEMALE BREAST Qualifiers: Breast location: unspecified site of breast Estrogen receptor status: positive Patient sex: female Qualified Code(s): C50.912 - Malignant neoplasm of unspecified site of left female breast; Z17.0 - Estrogen receptor positive status [ER+] (8) Cancer of left breast Code(s): C50.912 - MALIGNANT NEOPLASM OF UNSPECIFIED SITE OF LEFT FEMALE BREAST Qualifiers: Breast location: upper outer quadrant of breast Estrogen receptor status: positive Patient sex: female Qualified Code(s): C50.412 - Malignant neoplasm of upper-outer quadrant of left female breast (9) Open abdominal wall wound Code(s): S31.109A - UNSP OPN WND ABD WALL, UNSP Q W/O PENET PERIT CAV, INIT Qualifiers: Encounter type: subsequent encounter Qualified Code(s): S31.109D - Unspecified open wound of abdominal wall, unspecified quadrant without penetration into peritoneal cavity, subsequent encounter (10) Depression Code(s): F32.9 - MAJOR DEPRESSIVE DISORDER, SINGLE EPISODE, UNSPECIFIED Qualifiers: Depression Type: unspecified Qualified Code(s): F32.9 - Major depressive disorder, single episode, unspecified (11) Visual impairment Code(s): H54.7 - UNSPECIFIED VISUAL LOSS
--- NOTE | 2018-01-31 16:41 | PN ---
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 Old drain/fistula site LUQ is essentially healed, just covering with bandaid or gauze. Old stoma site is clean, granulating, healing in by secondary intention. Midline wound has additional small open spot just superior to lower open wound, being gently packed with 2x2 gauze (saline-damp on lower). Seen and examined in bed. No specific complaints or overnight events. Family at bedside. Pt now off isolation precautions, as VRE screen was negative. - Current Medication List Current Medications: Active Medications Albuterol/Ipratropium (Duoneb -) 1 amp NEB Q6H PRN PRN Reason: SHORTNESS OF BREATH Last Admin: 01/30/18 21:03 Dose: 1 amp Anastrozole (Arimidex -) 1 mg PO DAILY [facility] Last Admin: 01/31/18 11:04 Dose: 1 mg Atorvastatin Calcium (Lipitor -) 20 mg PO HS [facility] Last Admin: 01/30/18 22:40 Dose: 20 mg Bupropion HCl (Wellbutrin -) 75 mg PO 0800,2000 [facility] Last Admin: 01/31/18 11:04 Dose: 75 mg Carvedilol (Coreg -) 12.5 mg PO BID [facility] Last Admin: 01/31/18 11:04 Dose: 12.5 mg Furosemide (Lasix Injection -) 40 mg IVPUSH DAILY [facility] Last Admin: 01/31/18 11:04 Dose: 40 mg Metformin HCl (Glucophage Xr -) 500 mg PO DAILY@0700 [facility] Last Admin: 01/31/18 06:24 Dose: 500 mg Nystatin (Nystop Powder -) 1 applic TP BID [facility] Last Admin: 01/31/18 11:05 Dose: 1 applic Sacubitril/Valsartan (Entresto 24 Mg-26 Mg Tablet) 1 tab PO BID [facility] Last Admin: 01/31/18 11:04 Dose: 1 tab Warfarin Sodium (Coumadin -) 7.5 mg PO DAILY@1800 [facility] Zolpidem Tartrate (Ambien -) 5 mg PO HS PRN PRN Reason: INSOMNIA Last Admin: 01/30/18 22:40 Dose: 5 mg - Objective Vital Signs: Vital Signs Temperature 98.2 F 01/31/18 14:00 Pulse Rate 70 01/31/18 14:00 Respiratory Rate 20 01/31/18 14:00 Blood Pressure 104/54 L 01/31/18 14:00 O2 Sat by Pulse Oximetry (%) 98 01/30/18 21:00 Constitutional: Yes: Well Nourished, No Distress, Calm Eyes: Yes: Conjunctiva Clear (R pupil cloudy), EOM Intact HENT: Yes: Atraumatic, Normocephalic Gastrointestinal: Yes: Soft, Abdomen, Obese, Other (LUQ old drain site clean, gauze removed and replaced, very small superficial open area re-covered with gauze and tape). No: Tenderness Extremities: No: Cool, Cyanosis Integumentary: Yes: Incision (midline with dressings, left side abd). No: Jaundice, Rash Wound/Incision: Yes: Dressing Removed (and changed - old stoma site clean/red/ granulating, dressed with 2x2 gauze with drops of saline; midline lower wound c/ r/g, residual suture loops loose and removed, dressed with saline-damp 2x2 gauze , covered with dry gauze and tape; upper midline wound clean, pink centeno, residual suture end trimmed at base, packed with 2x2 gauze, covered w/dry gauze and tape with lower wound), Draining (yellow/maloney exudate on gauze over midline wounds, mostly upper; serosang on lower gauze), Unapproximated Neurological: Yes: Alert, Oriented Labs: CBC, BMP 01/31/18 05:30 01/31/18 05:30 INR, PTT INR 1.81 (0.83-1.09) H 01/31/18 05:30 Hb stable BUN/Cr somewhat elevated K+ ok INR subtherapeutic Problem List - Problems (1) Open wound of abdominal wall, anterior, complicated Assessment/Plan: old drain/fistula site healed but for tiny moist spot, covered w/gauze old stoma site healing well - dressed with single 2x2 gauze with drops of saline , covered with tape midline wound with two open sites, lower granulating, shallow - saline-damp 2x2 gauze laid over wound base, then dry gauze and tape; open spot above that - 2x2 gauze tucked into wound, covered with dry gauze and tape change daily can shower with all dressings OUT/OFF nurse can redo dressings, or coordinate timing with me discussed with Dr. Caputo Code(s): S31.109A - UNSP OPN WND ABD WALL, UNSP Q W/O PENET PERIT CAV, INIT Qualifiers: Encounter type: subsequent encounter Qualified Code(s): S31.109D - Unspecified open wound of abdominal wall, unspecified quadrant without penetration into peritoneal cavity, subsequent encounter (2) Disruption of internal operation (surgical) wound, not elsewhere classified , subsequent encounter Code(s): T81.32XD - DISRUPTION OF INTERNAL OPERATION (SURGICAL) WOUND, NEC, SUBS (3) Acute on chronic systolic congestive heart failure Assessment/Plan: Entresto started cardio following Code(s): I50.23 - ACUTE ON CHRONIC SYSTOLIC (CONGESTIVE) HEART FAILURE (4) COPD without exacerbation Assessment/Plan: on home-level O2 NC Code(s): J44.9 - CHRONIC OBSTRUCTIVE PULMONARY DISEASE, UNSPECIFIED (5) Anticoagulant long-term use Assessment/Plan: PMD adjusting coumadin Code(s): Z79.01 - GROUP HOME (CURRENT) USE OF 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 (6) Anemia Assessment/Plan: had blood transfusion, Hb stable Code(s): D64.9 - ANEMIA, UNSPECIFIED Qualifiers: Anemia type: unspecified type Qualified Code(s): D64.9 - Anemia, unspecified (7) Diabetes mellitus type 2, noninsulin dependent Code(s): E11.9 - TYPE 2 DIABETES MELLITUS WITHOUT COMPLICATIONS (8) Hypertension Code(s): I10 - ESSENTIAL (PRIMARY) HYPERTENSION Qualifiers: Hypertension type: essential hypertension Qualified Code(s): I10 - Essential (primary) hypertension (9) Breast cancer, left Code(s): C50.912 - MALIGNANT NEOPLASM OF UNSPECIFIED SITE OF LEFT FEMALE BREAST Qualifiers: Breast location: unspecified site of breast Estrogen receptor status: positive Patient sex: female Qualified Code(s): C50.912 - Malignant neoplasm of unspecified site of left female breast; Z17.0 - Estrogen receptor positive status [ER+]
[2018-01-31] MEDS: WARFARIN NA 7.5 MG TABLET (FP) PO SCH (17:34)
[2018-01-31] MEDS: ATORVASTATIN CA 20 MG TABLET (FP) PO SCH (21:45)
[2018-01-31] MEDS: ZOLPIDEM TARTRATE 5 MG TABLET PO PRN (21:45)
[2018-02-01 07:13] LABS: HEMATOCRIT 26.8 % (32.4-45.2); HEMOGLOBIN 8.5 GM/dL (10.7-15.3); MCH 30.2 pg (25.7-33.7); MCHC 31.8 g/dl (32.0-36.0); MEAN CELL VOLUME 94.9 fl (80-96); PLATELET COUNT 251 K/MM3 (134-434); RBC 2.82 M/mm3 (3.60-5.2); RDW 17.2 % (11.6-15.6); WHITE BLOOD COUNT 6.3 K/mm3 (4.0-10.0)
[2018-02-01 07:14] LABS: ANION GAP 6 MMOL/L (8-16); BLOOD UREA NITROGEN 41 mg/dL (7-18); CALCIUM 8.7 mg/dL (8.5-10.1); CHLORIDE 102 mmol/L (98-107); CO2 31 mmol/L (21-32); CREATININE 1.2 mg/dL (0.55-1.3); GLUCOSE,RANDOM 116 mg/dL (74-106); POTASSIUM 4.4 mmol/L (3.5-5.1); SODIUM 139 mmol/L (136-145)
[2018-02-01 07:19] LABS: INR 1.96 (0.83-1.09); PROTHROMBIN TIME (PATIENT) 23.3 SEC (9.7-13.0)
[2018-02-01] MEDS: buPROPion HCL 75 MG TABLET PO SCH ×2 (08:35→23:02)
[2018-02-01] MEDS: FUROSEMIDE 40 MG/4 ML INJECTABLE VIAL IVPUSH SCH (09:41)
[2018-02-01] MEDS: ANASTROZOLE 1 MG TABLET PO SCH (09:42)
[2018-02-01] MEDS: NYSTATIN POWDER 100,000 UNITS/GM - 15 GM TOPICAL POWDER TP SCH ×2 (09:42→23:03)
[2018-02-01] MEDS: SACUBITRIL/VALSARTAN 24 MG-26 MG TABLET PO SCH ×2 (09:42→23:02)
[2018-02-01] MEDS: CARVEDILOL 12.5 MG TABLET (FP) PO SCH ×2 (09:42→23:01)
[2018-02-01 10:08] LABS: HGB SOLUBILITY Negative (Negative); Hgb A 98.1 % (96.4-98.8); Hgb C 0 % (0.0); Hgb F 0 % (0.0-2.0); Hgb S 0 % (0.0)
--- NOTE | 2018-02-01 10:13 | PN ---
Progress Note, Physician Chief Complaint: Events noted Not in distress History of Present Illness: Patient was seen and examined. Awake and alert. Chart was reviewed Denies chest pain, SOB or palpitations - Current Medication List Current Medications: Active Medications Albuterol/Ipratropium (Duoneb -) 1 amp NEB Q6H PRN PRN Reason: SHORTNESS OF BREATH Last Admin: 01/30/18 21:03 Dose: 1 amp Anastrozole (Arimidex -) 1 mg PO DAILY [facility] Last Admin: 02/01/18 09:42 Dose: 1 mg Atorvastatin Calcium (Lipitor -) 20 mg PO HS [facility] Last Admin: 01/31/18 21:45 Dose: 20 mg Bupropion HCl (Wellbutrin -) 75 mg PO 0800,2000 [facility] Last Admin: 02/01/18 08:35 Dose: 75 mg Carvedilol (Coreg -) 12.5 mg PO BID [facility] Last Admin: 02/01/18 09:42 Dose: 12.5 mg Furosemide (Lasix Injection -) 40 mg IVPUSH DAILY [facility] Last Admin: 02/01/18 09:41 Dose: 40 mg Metformin HCl (Glucophage Xr -) 500 mg PO DAILY@0700 [facility] Last Admin: 02/01/18 06:12 Dose: 500 mg Nystatin (Nystop Powder -) 1 applic TP BID [facility] Last Admin: 02/01/18 09:42 Dose: 1 applic Sacubitril/Valsartan (Entresto 24 Mg-26 Mg Tablet) 1 tab PO BID [facility] Last Admin: 02/01/18 09:42 Dose: 1 tab Warfarin Sodium (Coumadin -) 7.5 mg PO DAILY@1800 [facility] Last Admin: 01/31/18 17:34 Dose: 7.5 mg Zolpidem Tartrate (Ambien -) 5 mg PO HS PRN PRN Reason: INSOMNIA Last Admin: 01/31/18 21:45 Dose: 5 mg - Objective Vital Signs: Vital Signs Temperature 98.3 F 02/01/18 08:50 Pulse Rate 71 02/01/18 08:50 Respiratory Rate 16 02/01/18 08:50 Blood Pressure 105/53 L 02/01/18 08:50 O2 Sat by Pulse Oximetry (%) 99 01/31/18 20:53 Eyes: Yes: PERRL HENT: Yes: Atraumatic Neck: Yes: Supple Cardiovascular: Yes: Regular Rate and Rhythm, S1, S2 Respiratory: Yes: Diminished (Base bilaterally) Gastrointestinal: Yes: Normal Bowel Sounds, Soft. No: Tenderness Edema: No Additional Findings/Remarks: - Review of Systems Constitutional: denies: Chills, Fever Cardiovascular: denies: Palpitations, (+) Shortness of Breath. denies: Chest Pain Respiratory: reports: SOB. denies: Cough, Hemoptysis, Orthopnea, PND, Wheezing Gastrointestinal: denies: Abdominal Pain, Constipation, Diarrhea, Melena, Nausea , Rectal Bleeding, Vomiting Genitourinary: denies: Dysuria, Hematuria Neurological: denies: Dizziness, Headache, Seizure, Syncope Labs: CBC, BMP 02/01/18 05:30 02/01/18 05:30 INR, PTT INR 1.96 (0.83-1.09) H 02/01/18 05:30 Problem List - Problems (1) Hypercholesterolemia Code(s): E78.00 - PURE HYPERCHOLESTEROLEMIA, UNSPECIFIED (2) Acute on chronic systolic congestive heart failure Code(s): I50.23 - ACUTE ON CHRONIC SYSTOLIC (CONGESTIVE) HEART FAILURE (3) Anemia Code(s): D64.9 - ANEMIA, UNSPECIFIED Qualifiers: Anemia type: unspecified type Qualified Code(s): D64.9 - Anemia, unspecified (4) Anticoagulant long-term use Code(s): Z79.01 - NURSING HOME (CURRENT) USE OF 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 (5) Bilateral pleural effusion Code(s): J90 - PLEURAL EFFUSION, NOT ELSEWHERE CLASSIFIED (6) COPD (chronic obstructive pulmonary disease) Code(s): J44.9 - CHRONIC OBSTRUCTIVE PULMONARY DISEASE, UNSPECIFIED Qualifiers: COPD type: unspecified COPD Qualified Code(s): J44.9 - Chronic obstructive pulmonary disease, unspecified (7) Diabetes mellitus type 2, noninsulin dependent Code(s): E11.9 - TYPE 2 DIABETES MELLITUS WITHOUT COMPLICATIONS (8) H/O: CVA (cerebrovascular accident) Code(s): Z86.73 - PRSNL HX OF TIA (TIA), AND CEREB INFRC W/O RESID DEFICITS (9) Hypertension Code(s): I10 - ESSENTIAL (PRIMARY) HYPERTENSION Qualifiers: Hypertension type: essential hypertension Qualified Code(s): I10 - Essential (primary) hypertension (10) Left renal artery stenosis Code(s): I70.1 - ATHEROSCLEROSIS OF RENAL ARTERY (11) Perforated sigmoid colon Code(s): K63.1 - PERFORATION OF INTESTINE (NONTRAUMATIC) Assessment/Plan 1. Acute on chronic LV systolic failure 2. History of CVA with left MCA thrombus 3. History of perforated sigmoid colon s/p sigmoidectomy and reversed colostomy 4. COPD with Chronic Hypoxic Respiratory Failure and long smoking history 5. HTN 6. Hypercholesterolemia 7. Anemia 8. Type 2 DM 9. Renal artery stenosis PLAN: 1. Diuresis with monitor renal function and electrolytes. Possible switch to PO 3. Continue Carvedilol 12.5 mg BID, Lipitor 20 mg QHS and continue Entresto 24/ 26 mg BID 4. Continue Warfarin as per INR 5. O2 to keep SpO2 >90% and inhaled bronchodilators as needed 6. Transfuse to maintain Hgb>8.0 7.Further cardiac evaluation to follow including possible nuclear MPI +/- cardiac catheterization/coronary angiography, but probably could be arranged as outpatient. LVEF needs to be followed with optimal medical therapy and if LVEF remains below 35%, she may need ICD as primary prophylaxis. Further plans are to follow Chandu Mahoney MD
[2018-02-01] MEDS ORDERED: FUROSEMIDE 40 MG TABLET (FP) PO SCH (10:30)
--- NOTE | 2018-02-01 10:50 | PN ---
Progress Note, Physician History of Present Illness: PULMONARY ALERT,SITTING UP IN BED LESS DYSPNEIC - Current Medication List Current Medications: Active Medications Albuterol/Ipratropium (Duoneb -) 1 amp NEB Q6H PRN PRN Reason: SHORTNESS OF BREATH Last Admin: 01/30/18 21:03 Dose: 1 amp Anastrozole (Arimidex -) 1 mg PO DAILY [facility] Last Admin: 02/01/18 09:42 Dose: 1 mg Atorvastatin Calcium (Lipitor -) 20 mg PO HS [facility] Last Admin: 01/31/18 21:45 Dose: 20 mg Bupropion HCl (Wellbutrin -) 75 mg PO 0800,2000 [facility] Last Admin: 02/01/18 08:35 Dose: 75 mg Carvedilol (Coreg -) 12.5 mg PO BID [facility] Last Admin: 02/01/18 09:42 Dose: 12.5 mg Furosemide (Lasix -) 40 mg PO DAILY [facility] Last Admin: 02/01/18 10:24 Dose: Not Given Metformin HCl (Glucophage Xr -) 500 mg PO DAILY@0700 [facility] Last Admin: 02/01/18 06:12 Dose: 500 mg Nystatin (Nystop Powder -) 1 applic TP BID [facility] Last Admin: 02/01/18 09:42 Dose: 1 applic Sacubitril/Valsartan (Entresto 24 Mg-26 Mg Tablet) 1 tab PO BID [facility] Last Admin: 02/01/18 09:42 Dose: 1 tab Warfarin Sodium (Coumadin -) 7.5 mg PO DAILY@1800 [facility] Last Admin: 01/31/18 17:34 Dose: 7.5 mg Zolpidem Tartrate (Ambien -) 5 mg PO HS PRN PRN Reason: INSOMNIA Last Admin: 01/31/18 21:45 Dose: 5 mg - Objective Vital Signs: Vital Signs Temperature 98.3 F 02/01/18 08:50 Pulse Rate 71 02/01/18 08:50 Respiratory Rate 16 02/01/18 08:50 Blood Pressure 105/53 L 02/01/18 08:50 O2 Sat by Pulse Oximetry (%) 99 01/31/18 20:53 Constitutional: Yes: Well Nourished, Calm Eyes: Yes: WNL HENT: Yes: WNL Neck: Yes: WNL Cardiovascular: Yes: Pulse Irregular, S1, S2 Respiratory: Yes: Diminished Gastrointestinal: Yes: Normal Bowel Sounds, Soft Extremities: Yes: WNL Edema: No Labs: CBC, BMP 02/01/18 05:30 02/01/18 05:30 INR, PTT INR 1.96 (0.83-1.09) H 02/01/18 05:30 Assessment/Plan Problem List - Problems (1) Acute on chronic systolic congestive heart failure Code(s): I50.23 - ACUTE ON CHRONIC SYSTOLIC (CONGESTIVE) HEART FAILURE (2) COPD (chronic obstructive pulmonary disease) Code(s): J44.9 - CHRONIC OBSTRUCTIVE PULMONARY DISEASE, UNSPECIFIED Qualifiers: COPD type: unspecified COPD Qualified Code(s): J44.9 - Chronic obstructive pulmonary disease, unspecified (3) Diabetes mellitus type 2, noninsulin dependent Code(s): E11.9 - TYPE 2 DIABETES MELLITUS WITHOUT COMPLICATIONS (4) Hypertension Code(s): I10 - ESSENTIAL (PRIMARY) HYPERTENSION Qualifiers: Hypertension type: essential hypertension Qualified Code(s): I10 - Essential (primary) hypertension Assessment/Plan Acute on Chronic Systolic Heart Failure cliniically improving COPD Chronic Hypoxic Respiratory Failure h/o CVA with Left MCA thrombus HTN DM Hypercholesterolemia h/o Sigmoidectomy - lasix - monitor urine output, creatinine - daily weights - LASHELL-I/ARB, beta criselda - O2 to keep SpO2 >90% - inhaled bronchodilators as needed - anticoagulation DR CHACKO
--- NOTE | 2018-02-01 15:29 | PN ---
Progress Note (short form) - Note Progress Note: Current Medications Albuterol/Ipratropium (Duoneb -) 1 amp NEB Q6H PRN PRN Reason: SHORTNESS OF BREATH Last Admin: 01/30/18 21:03 Dose: 1 amp Anastrozole (Arimidex -) 1 mg PO DAILY [facility] Last Admin: 02/01/18 09:42 Dose: 1 mg Atorvastatin Calcium (Lipitor -) 20 mg PO HS [facility] Last Admin: 01/31/18 21:45 Dose: 20 mg Bupropion HCl (Wellbutrin -) 75 mg PO 0800,2000 [facility] Last Admin: 02/01/18 08:35 Dose: 75 mg Carvedilol (Coreg -) 12.5 mg PO BID [facility] Last Admin: 02/01/18 09:42 Dose: 12.5 mg Furosemide (Lasix -) 40 mg PO DAILY [facility] Last Admin: 02/01/18 10:24 Dose: Not Given Metformin HCl (Glucophage Xr -) 500 mg PO DAILY@0700 [facility] Last Admin: 02/01/18 06:12 Dose: 500 mg Nystatin (Nystop Powder -) 1 applic TP BID [facility] Last Admin: 02/01/18 09:42 Dose: 1 applic Sacubitril/Valsartan (Entresto 24 Mg-26 Mg Tablet) 1 tab PO BID [facility] Last Admin: 02/01/18 09:42 Dose: 1 tab Warfarin Sodium (Coumadin -) 7.5 mg PO DAILY@1800 [facility] Last Admin: 01/31/18 17:34 Dose: 7.5 mg Zolpidem Tartrate (Ambien -) 5 mg PO HS PRN PRN Reason: INSOMNIA Last Admin: 01/31/18 21:45 Dose: 5 mg Laboratory Results - last 24 hr 01/28/18 01/29/18 01/31/18 05:30 11:25 17:48 WBC RBC Hgb Hct MCV MCH MCHC RDW Plt Count MPV Hemoglobin A 98.1 Hemoglobin A2 1.9 Hemoglobin C 0 Hemoglobin S 0 Variant Hemoglobin 0.0 Hemoglobin Interpret Maternal Rh 0 Hemoglobin Solubility Negative PT with INR INR Sodium Potassium Chloride Carbon Dioxide Anion Gap BUN Creatinine Creat Clearance w eGFR POC Glucometer 180 Random Glucose Calcium Blood Type A POSITIVE Antibody Screen Negative Crossmatch See Detail 01/31/18 02/01/18 02/01/18 21:48 05:30 05:30 WBC 6.3 RBC 2.82 L Hgb 8.5 L Hct 26.8 L MCV 94.9 MCH 30.2 MCHC 31.8 L RDW 17.2 H Plt Count 251 MPV 8.0 Hemoglobin A Hemoglobin A2 Hemoglobin C Hemoglobin S Variant Hemoglobin Hemoglobin Interpret Maternal Rh Hemoglobin Solubility PT with INR 23.30 H INR 1.96 H Sodium Potassium Chloride Carbon Dioxide Anion Gap BUN Creatinine Creat Clearance w eGFR POC Glucometer 163 Random Glucose Calcium Blood Type Antibody Screen Crossmatch 02/01/18 02/01/18 02/01/18 05:30 05:31 11:29 WBC RBC Hgb Hct MCV MCH MCHC RDW Plt Count MPV Hemoglobin A Hemoglobin A2 Hemoglobin C Hemoglobin S Variant Hemoglobin Hemoglobin Interpret Maternal Rh Hemoglobin Solubility PT with INR INR Sodium 139 Potassium 4.4 Chloride 102 Carbon Dioxide 31 Anion Gap 6 L BUN 41 H Creatinine 1.2 Creat Clearance w eGFR 44.54 POC Glucometer 137 158 Random Glucose 116 H Calcium 8.7 Blood Type Antibody Screen Crossmatch Vital Signs Temperature 98.4 F 02/01/18 14:10 Pulse Rate 74 02/01/18 14:10 Respiratory Rate 18 02/01/18 14:10 Blood Pressure 95/53 L 02/01/18 14:10 O2 Sat by Pulse Oximetry (%) 99 01/31/18 20:53 C:: no new complaints ``````````````````````````` skin--no acute lesions eyes--anicteric; Rt cornea opaque lungs--BS distant; unlabored heart--RR abd--benign ext--no edema neuro--fully alert; coherent `````````````````````````````````` Summ > CHF--on Entresto (along with BB; Lasix, warf); echo shows diffuse/global hypokinesis (see cardio note) which may perhaps require placement of ICD; cont current agents for now. 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 > DM--on Metformin; but may need to stop if Bun/cr rises further; no evidence of acidemia > azotemia--2nd intra-vasc contraction > breast cancer--w/o evidence of metastasis; cont arimidex > Long Term a/c--placed on a/c for CVA prevention from MCA thrombosis; adjust as needed ~~~~~~~~~~~~ Dr Caputo Problem List - Problems (1) CHF (congestive heart failure) Code(s): I50.9 - HEART FAILURE, UNSPECIFIED Qualifiers: Heart failure type: unspecified Heart failure chronicity: unspecified Qualified Code(s): I50.9 - Heart failure, unspecified (2) Anemia Code(s): D64.9 - ANEMIA, UNSPECIFIED Qualifiers: Anemia type: unspecified type Qualified Code(s): D64.9 - Anemia, unspecified (3) Hypercholesterolemia Code(s): E78.00 - PURE HYPERCHOLESTEROLEMIA, UNSPECIFIED (4) COPD (chronic obstructive pulmonary disease) Code(s): J44.9 - CHRONIC OBSTRUCTIVE PULMONARY DISEASE, UNSPECIFIED Qualifiers: COPD type: unspecified COPD Qualified Code(s): J44.9 - Chronic obstructive pulmonary disease, unspecified (5) Anticoagulant long-term use Code(s): Z79.01 - ELECTROMECH[employer]QUIPMENT [employer]ER (CURRENT) USE OF 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 (6) Diabetes mellitus type 2, noninsulin dependent Code(s): E11.9 - TYPE 2 DIABETES MELLITUS WITHOUT COMPLICATIONS (7) Breast cancer, left Code(s): C50.912 - MALIGNANT NEOPLASM OF UNSPECIFIED SITE OF LEFT FEMALE BREAST Qualifiers: Breast location: unspecified site of breast Estrogen receptor status: positive Patient sex: female Qualified Code(s): C50.912 - Malignant neoplasm of unspecified site of left female breast; Z17.0 - Estrogen receptor positive status [ER+] (8) Cancer of left breast Code(s): C50.912 - MALIGNANT NEOPLASM OF UNSPECIFIED SITE OF LEFT FEMALE BREAST Qualifiers: Breast location: upper outer quadrant of breast Estrogen receptor status: positive Patient sex: female Qualified Code(s): C50.412 - Malignant neoplasm of upper-outer quadrant of left female breast (9) Open abdominal wall wound Code(s): S31.109A - UNSP OPN WND ABD WALL, UNSP Q W/O PENET PERIT CAV, INIT Qualifiers: Encounter type: subsequent encounter Qualified Code(s): S31.109D - Unspecified open wound of abdominal wall, unspecified quadrant without penetration into peritoneal cavity, subsequent encounter (10) Depression Code(s): F32.9 - MAJOR DEPRESSIVE DISORDER, SINGLE EPISODE, UNSPECIFIED Qualifiers: Depression Type: unspecified Qualified Code(s): F32.9 - Major depressive disorder, single episode, unspecified (11) Visual impairment Code(s): H54.7 - UNSPECIFIED VISUAL LOSS
[2018-02-01] MEDS: WARFARIN NA 7.5 MG TABLET (FP) PO SCH (17:21)
[2018-02-01] MEDS: ATORVASTATIN CA 20 MG TABLET (FP) PO SCH (23:01)
[2018-02-01] MEDS: ZOLPIDEM TARTRATE 5 MG TABLET PO PRN (23:01)
[2018-02-02 07:49] LABS: HEMATOCRIT 33.8 % (32.4-45.2); HEMOGLOBIN 10.9 GM/dL (10.7-15.3); MCH 29.7 pg (25.7-33.7); MCHC 32.3 g/dl (32.0-36.0); MEAN PLT VOLUME 7.9 fl (7.5-11.1); PLATELET COUNT 314 K/MM3 (134-434); RBC 3.67 M/mm3 (3.60-5.2); RDW 19.4 % (11.6-15.6); WHITE BLOOD COUNT 7.5 K/mm3 (4.0-10.0)
[2018-02-02 08:22] LABS: ANION GAP 12 MMOL/L (8-16); BLOOD UREA NITROGEN 39 mg/dL (7-18); CALCIUM 8.8 mg/dL (8.5-10.1); CHLORIDE 104 mmol/L (98-107); CO2 25 mmol/L (21-32); CREATININE 1.2 mg/dL (0.55-1.3); GLUCOSE,RANDOM 131 mg/dL (74-106); POTASSIUM 4.7 mmol/L (3.5-5.1); SODIUM 140 mmol/L (136-145)
[2018-02-02 08:25] LABS: INR 1.99 (0.83-1.09); PROTHROMBIN TIME (PATIENT) 23.7 SEC (9.7-13.0)
--- NOTE | 2018-02-02 10:25 | PN ---
Progress Note, Physician History of Present Illness: pulmonary alert,no distress,-cp,-sob - Current Medication List Current Medications: Active Medications Albuterol/Ipratropium (Duoneb -) 1 amp NEB Q6H PRN PRN Reason: SHORTNESS OF BREATH Last Admin: 01/30/18 21:03 Dose: 1 amp Anastrozole (Arimidex -) 1 mg PO DAILY [facility] Last Admin: 02/01/18 09:42 Dose: 1 mg Atorvastatin Calcium (Lipitor -) 20 mg PO HS [facility] Last Admin: 02/01/18 23:01 Dose: 20 mg Bupropion HCl (Wellbutrin -) 75 mg PO 0800,2000 [facility] Last Admin: 02/01/18 23:02 Dose: 75 mg Carvedilol (Coreg -) 12.5 mg PO BID [facility] Last Admin: 02/01/18 23:01 Dose: 12.5 mg Furosemide (Lasix Injection -) 40 mg IVPUSH DAILY [facility] Metformin HCl (Glucophage Xr -) 500 mg PO DAILY@0700 [facility] Last Admin: 02/02/18 06:23 Dose: 500 mg Nystatin (Nystop Powder -) 1 applic TP BID [facility] Last Admin: 02/01/18 23:03 Dose: 1 applic Sacubitril/Valsartan (Entresto 24 Mg-26 Mg Tablet) 1 tab PO BID [facility] Last Admin: 02/01/18 23:02 Dose: 1 tab Warfarin Sodium (Coumadin -) 7.5 mg PO DAILY@1800 [facility] Last Admin: 02/01/18 17:21 Dose: 7.5 mg Zolpidem Tartrate (Ambien -) 5 mg PO HS PRN PRN Reason: INSOMNIA Last Admin: 02/01/18 23:01 Dose: 5 mg - Objective Vital Signs: Vital Signs Temperature 98 F 02/02/18 10:20 Pulse Rate 75 02/02/18 10:20 Respiratory Rate 20 02/02/18 10:20 Blood Pressure 114/43 L 02/02/18 10:20 O2 Sat by Pulse Oximetry (%) 99 01/31/18 20:53 Constitutional: Yes: Well Nourished, Calm Eyes: Yes: WNL HENT: Yes: WNL Neck: Yes: WNL Cardiovascular: Yes: Regular Rate and Rhythm, S1, S2 Respiratory: Yes: Diminished Gastrointestinal: Yes: Normal Bowel Sounds, Soft Extremities: Yes: WNL Edema: No Labs: CBC, BMP 02/02/18 06:50 02/02/18 06:50 INR, PTT INR 1.99 (0.83-1.09) H 02/02/18 06:50 Assessment/Plan Problem List - Problems (1) Acute on chronic systolic congestive heart failure Code(s): I50.23 - ACUTE ON CHRONIC SYSTOLIC (CONGESTIVE) HEART FAILURE (2) COPD (chronic obstructive pulmonary disease) Code(s): J44.9 - CHRONIC OBSTRUCTIVE PULMONARY DISEASE, UNSPECIFIED Qualifiers: COPD type: unspecified COPD Qualified Code(s): J44.9 - Chronic obstructive pulmonary disease, unspecified (3) Diabetes mellitus type 2, noninsulin dependent Code(s): E11.9 - TYPE 2 DIABETES MELLITUS WITHOUT COMPLICATIONS (4) Hypertension Code(s): I10 - ESSENTIAL (PRIMARY) HYPERTENSION Qualifiers: Hypertension type: essential hypertension Qualified Code(s): I10 - Essential (primary) hypertension Assessment/Plan Acute on Chronic Systolic Heart Failure clinically improving COPD Chronic Hypoxic Respiratory Failure h/o CVA with Left MCA thrombus HTN DM Hypercholesterolemia h/o Sigmoidectomy - lasix - monitor urine output, creatinine - daily weights - LASHELL-I/ARB, beta criselda - O2 to keep SpO2 >90% - inhaled bronchodilators as needed - anticoagulation DR CHACKO
[2018-02-02] MEDS: CARVEDILOL 12.5 MG TABLET (FP) PO SCH ×2 (10:26→22:16)
[2018-02-02] MEDS: buPROPion HCL 75 MG TABLET PO SCH ×2 (10:26→22:16)
[2018-02-02] MEDS: FUROSEMIDE 40 MG/4 ML INJECTABLE VIAL IVPUSH SCH (10:26)
[2018-02-02] MEDS: NYSTATIN POWDER 100,000 UNITS/GM - 15 GM TOPICAL POWDER TP SCH ×2 (10:27→22:18)
[2018-02-02] MEDS: ANASTROZOLE 1 MG TABLET PO SCH (10:27)
--- NOTE | 2018-02-02 11:39 | PN ---
Progress Note, Physician Chief Complaint: Events noted Not in distress History of Present Illness: Patient was seen and examined. Awake and alert. Chart was reviewed Denies chest pain, SOB or palpitations - Current Medication List Current Medications: Active Medications Albuterol/Ipratropium (Duoneb -) 1 amp NEB Q6H PRN PRN Reason: SHORTNESS OF BREATH Last Admin: 01/30/18 21:03 Dose: 1 amp Anastrozole (Arimidex -) 1 mg PO DAILY [facility] Last Admin: 02/02/18 10:27 Dose: 1 mg Atorvastatin Calcium (Lipitor -) 20 mg PO HS [facility] Last Admin: 02/01/18 23:01 Dose: 20 mg Bupropion HCl (Wellbutrin -) 75 mg PO 0800,2000 [facility] Last Admin: 02/02/18 10:26 Dose: 75 mg Carvedilol (Coreg -) 12.5 mg PO BID [facility] Last Admin: 02/02/18 10:26 Dose: 12.5 mg Furosemide (Lasix Injection -) 40 mg IVPUSH DAILY [facility] Last Admin: 02/02/18 10:26 Dose: 40 mg Metformin HCl (Glucophage Xr -) 500 mg PO DAILY@0700 [facility] Last Admin: 02/02/18 06:23 Dose: 500 mg Nystatin (Nystop Powder -) 1 applic TP BID [facility] Last Admin: 02/02/18 10:27 Dose: 1 applic Sacubitril/Valsartan (Entresto 24 Mg-26 Mg Tablet) 1 tab PO BID [facility] Last Admin: 02/01/18 23:02 Dose: 1 tab Warfarin Sodium (Coumadin -) 7.5 mg PO DAILY@1800 [facility] Last Admin: 02/01/18 17:21 Dose: 7.5 mg Zolpidem Tartrate (Ambien -) 5 mg PO HS PRN PRN Reason: INSOMNIA Last Admin: 02/01/18 23:01 Dose: 5 mg - Objective Vital Signs: Vital Signs Temperature 98 F 02/02/18 10:20 Pulse Rate 75 02/02/18 10:20 Respiratory Rate 20 02/02/18 10:20 Blood Pressure 114/43 L 02/02/18 10:20 O2 Sat by Pulse Oximetry (%) 99 01/31/18 20:53 Eyes: Yes: PERRL HENT: Yes: Atraumatic Neck: Yes: Supple Cardiovascular: Yes: Regular Rate and Rhythm, S1, S2 Respiratory: Yes: CTA Bilaterally Gastrointestinal: Yes: Normal Bowel Sounds, Soft. No: Tenderness Edema: No Additional Findings/Remarks: - Review of Systems Constitutional: denies: Chills, Fever Cardiovascular: denies: Palpitations, (+) Shortness of Breath. denies: Chest Pain Respiratory: reports: SOB. denies: Cough, Hemoptysis, Orthopnea, PND, Wheezing Gastrointestinal: denies: Abdominal Pain, Constipation, Diarrhea, Melena, Nausea , Rectal Bleeding, Vomiting Genitourinary: denies: Dysuria, Hematuria Neurological: denies: Dizziness, Headache, Seizure, Syncope Labs: CBC, BMP 02/02/18 06:50 02/02/18 06:50 INR, PTT INR 1.99 (0.83-1.09) H 02/02/18 06:50 Problem List - Problems (1) Hypercholesterolemia Code(s): E78.00 - PURE HYPERCHOLESTEROLEMIA, UNSPECIFIED (2) Acute on chronic systolic congestive heart failure Code(s): I50.23 - ACUTE ON CHRONIC SYSTOLIC (CONGESTIVE) HEART FAILURE (3) Anemia Code(s): D64.9 - ANEMIA, UNSPECIFIED Qualifiers: Anemia type: unspecified type Qualified Code(s): D64.9 - Anemia, unspecified (4) Anticoagulant long-term use Code(s): Z79.01 - HALFWAY (CURRENT) USE OF 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 (5) Bilateral pleural effusion Code(s): J90 - PLEURAL EFFUSION, NOT ELSEWHERE CLASSIFIED (6) COPD (chronic obstructive pulmonary disease) Code(s): J44.9 - CHRONIC OBSTRUCTIVE PULMONARY DISEASE, UNSPECIFIED Qualifiers: COPD type: unspecified COPD Qualified Code(s): J44.9 - Chronic obstructive pulmonary disease, unspecified (7) Diabetes mellitus type 2, noninsulin dependent Code(s): E11.9 - TYPE 2 DIABETES MELLITUS WITHOUT COMPLICATIONS (8) H/O: CVA (cerebrovascular accident) Code(s): Z86.73 - PRSNL HX OF TIA (TIA), AND CEREB INFRC W/O RESID DEFICITS (9) Hypertension Code(s): I10 - ESSENTIAL (PRIMARY) HYPERTENSION Qualifiers: Hypertension type: essential hypertension Qualified Code(s): I10 - Essential (primary) hypertension (10) Left renal artery stenosis Code(s): I70.1 - ATHEROSCLEROSIS OF RENAL ARTERY (11) Perforated sigmoid colon Code(s): K63.1 - PERFORATION OF INTESTINE (NONTRAUMATIC) Assessment/Plan 1. Acute on chronic LV systolic failure 2. History of CVA with left MCA thrombus 3. History of perforated sigmoid colon s/p sigmoidectomy and reversed colostomy 4. COPD with Chronic Hypoxic Respiratory Failure and long smoking history 5. HTN 6. Hypercholesterolemia 7. Anemia 8. Type 2 DM 9. Renal artery stenosis PLAN: 1. Diuresis with monitor renal function and electrolytes. Possible switch to PO when feasible 3. Continue Carvedilol 12.5 mg BID, Lipitor 20 mg QHS and continue Entresto 24/ 26 mg BID 4. Continue Warfarin as per INR 5. O2 to keep SpO2 >90% and inhaled bronchodilators as needed 6. Transfuse to maintain Hgb>8.0 7. Further cardiac evaluation to follow including possible nuclear MPI +/- cardiac catheterization/coronary angiography, but probably could be arranged as outpatient. LVEF needs to be followed with optimal medical therapy and if LVEF remains below 35%, she may need ICD as primary prophylaxis. Further plans are to follow Chandu Mahoney MD
--- NOTE | 2018-02-02 11:56 | PN ---
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 Old drain/fistula site LUQ is essentially healed, just covering with bandaid or gauze. Old stoma site is clean, granulating, healing in by secondary intention. Midline wound has additional small open spot just superior to lower open wound, being gently packed with 2x2 gauze (saline-damp on lower). Seen and examined in room, dressing changed in bed. No specific complaints or overnight events. Family at bedside. Pt feeling well overall. Had blood transfusion a few days ago, Hb stable. Dressings done by nurse yesterday. - Current Medication List Current Medications: Active Medications Albuterol/Ipratropium (Duoneb -) 1 amp NEB Q6H PRN PRN Reason: SHORTNESS OF BREATH Last Admin: 01/30/18 21:03 Dose: 1 amp Anastrozole (Arimidex -) 1 mg PO DAILY [facility] Last Admin: 02/02/18 10:27 Dose: 1 mg Atorvastatin Calcium (Lipitor -) 20 mg PO HS [facility] Last Admin: 02/01/18 23:01 Dose: 20 mg Bupropion HCl (Wellbutrin -) 75 mg PO 0800,2000 [facility] Last Admin: 02/02/18 10:26 Dose: 75 mg Carvedilol (Coreg -) 12.5 mg PO BID [facility] Last Admin: 02/02/18 10:26 Dose: 12.5 mg Furosemide (Lasix Injection -) 40 mg IVPUSH DAILY [facility] Last Admin: 02/02/18 10:26 Dose: 40 mg Metformin HCl (Glucophage Xr -) 500 mg PO DAILY@0700 [facility] Last Admin: 02/02/18 06:23 Dose: 500 mg Nystatin (Nystop Powder -) 1 applic TP BID [facility] Last Admin: 02/02/18 10:27 Dose: 1 applic Sacubitril/Valsartan (Entresto 24 Mg-26 Mg Tablet) 1 tab PO BID [facility] Last Admin: 02/01/18 23:02 Dose: 1 tab Warfarin Sodium (Coumadin -) 7.5 mg PO DAILY@1800 [facility] Last Admin: 02/01/18 17:21 Dose: 7.5 mg Zolpidem Tartrate (Ambien -) 5 mg PO HS PRN PRN Reason: INSOMNIA Last Admin: 02/01/18 23:01 Dose: 5 mg - Objective Vital Signs: Vital Signs Temperature 98 F 02/02/18 10:20 Pulse Rate 75 02/02/18 10:20 Respiratory Rate 20 02/02/18 10:20 Blood Pressure 114/43 L 02/02/18 10:20 O2 Sat by Pulse Oximetry (%) 99 01/31/18 20:53 Constitutional: Yes: Well Nourished, No Distress, Calm Eyes: Yes: Conjunctiva Clear (R pupil cloudy), EOM Intact HENT: Yes: Atraumatic, Normocephalic Respiratory: Yes: On Nasal O2. No: SOB Gastrointestinal: Yes: Soft, Abdomen, Obese, Other (old drain site LUQ clean, small, red-based - dressed with bandaid). No: Tenderness Extremities: No: Cool, Cyanosis Integumentary: Yes: Incision (midline with dressings, old stoma site as well). No: Jaundice, Rash Wound/Incision: Yes: Dressing Dry and Intact (serous/yellow staining on dressing ), Dressing Removed (and changed - old stoma site clean/red/granulating, shallow , slightly smaller, 2x2 gauze with drops of saline placed on site; lower midline shallow, near skin level, red/granulating/clean - saline-damp 2x2 on base, covered with dry gauze and tape; upper midline with small, deeper open wound, some serous/pale exudate in base, centeno with some granulation, silver nitrate used on wound and at poor granulation at skin margin - 2x2 gauze tucked into wound, covered with gauze and tape), Unapproximated. No: Reddened Neurological: Yes: Alert, Oriented. No: Unsteady Gait Labs: CBC, BMP 02/02/18 06:50 02/02/18 06:50 INR, PTT INR 1.99 (0.83-1.09) H 02/02/18 06:50 Problem List - Problems (1) Open wound of abdominal wall, anterior, complicated Assessment/Plan: old drain/fistula site healed but for tiny moist spot, covered w/bandaid old stoma site healing well - dressed with single 2x2 gauze with drops of saline , covered with tape midline wound with two open sites, lower granulating, shallow - saline-damp 2x2 gauze laid over wound base, then dry gauze and tape; open spot above that, silver nitrate used (see above) - 2x2 gauze tucked into wound, covered with dry gauze and tape change daily can shower with all dressings OUT/OFF if allowed off O2 to do so nurse can redo dressings, or coordinate timing with me pt will need to make appt for f/u with me in wound clinic for 02/16 pm - she knows to call Code(s): S31.109A - UNSP OPN WND ABD WALL, UNSP Q W/O PENET PERIT CAV, INIT Qualifiers: Encounter type: subsequent encounter Qualified Code(s): S31.109D - Unspecified open wound of abdominal wall, unspecified quadrant without penetration into peritoneal cavity, subsequent encounter (2) Disruption of internal operation (surgical) wound, not elsewhere classified , subsequent encounter Code(s): T81.32XD - DISRUPTION OF INTERNAL OPERATION (SURGICAL) WOUND, NEC, SUBS (3) Acute on chronic systolic congestive heart failure Assessment/Plan: Entresto started cardio following Code(s): I50.23 - ACUTE ON CHRONIC SYSTOLIC (CONGESTIVE) HEART FAILURE (4) COPD without exacerbation Assessment/Plan: on home-level O2 NC Code(s): J44.9 - CHRONIC OBSTRUCTIVE PULMONARY DISEASE, UNSPECIFIED (5) Anticoagulant long-term use Assessment/Plan: PMD adjusting coumadin, INR about 2 Code(s): Z79.01 - JAIL (CURRENT) USE OF 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 (6) Anemia Assessment/Plan: had blood transfusion, Hb stable Code(s): D64.9 - ANEMIA, UNSPECIFIED Qualifiers: Anemia type: unspecified type Qualified Code(s): D64.9 - Anemia, unspecified (7) Diabetes mellitus type 2, noninsulin dependent Assessment/Plan: sugars ok Code(s): E11.9 - TYPE 2 DIABETES MELLITUS WITHOUT COMPLICATIONS (8) Hypertension Code(s): I10 - ESSENTIAL (PRIMARY) HYPERTENSION Qualifiers: Hypertension type: essential hypertension Qualified Code(s): I10 - Essential (primary) hypertension (9) Breast cancer, left Assessment/Plan: on anastrozole Code(s): C50.912 - MALIGNANT NEOPLASM OF UNSPECIFIED SITE OF LEFT FEMALE BREAST Qualifiers: Breast location: unspecified site of breast Estrogen receptor status: positive Patient sex: female Qualified Code(s): C50.912 - Malignant neoplasm of unspecified site of left female breast; Z17.0 - Estrogen receptor positive status [ER+]
[2018-02-02] MEDS: SACUBITRIL/VALSARTAN 24 MG-26 MG TABLET PO SCH ×2 (12:19→22:16)
--- NOTE | 2018-02-02 12:57 | CONSULT ---
Consult - text type - Consultation Consultation Note: Podiatry Consultation: 67 year old diabetic F presents for admission with worsening SOB. Patient requested podiatric evaluation for elongated, thickened toe nails. PMHx: DM, HTN/HCVD, past CVA (with MCA thrombus), hypercholesterolemia, non- ischemic dilated CM with moderate LV systolic dysfunction and history of LV failure, distal left renal artery stenosis, s/p [facility] Meds: noted in chart ALL: NKMA COLE: Pedal pulses 1/4, TG wnl, CFT brisk to all toes. Nails are elongated, discolored, thickened with subungual debris, tender to palpation x 10. No nail bed ulcers, no signs of infection. Imp: 67 year old diabetic female with onychomycosis x 10 1. Informed consent obtained. Manual debridement of mycotic nails x 10 using nail nipper. Patient tolerated the procedure well. 2. Diabetic foot care discussed at length. 3. Can f/u in wound healing center upon discharge for routine diabetic care. Thank you for the consultation. Yuko Whittaker DPM
[2018-02-02] MEDS: WARFARIN NA 7.5 MG TABLET (FP) PO SCH (17:59)
--- NOTE | 2018-02-02 17:59 | PN ---
Progress Note (short form) - Note Progress Note: Current Medications Albuterol/Ipratropium (Duoneb -) 1 amp NEB Q6H PRN PRN Reason: SHORTNESS OF BREATH Last Admin: 01/30/18 21:03 Dose: 1 amp Anastrozole (Arimidex -) 1 mg PO DAILY [facility] Last Admin: 02/02/18 10:27 Dose: 1 mg Atorvastatin Calcium (Lipitor -) 20 mg PO HS [facility] Last Admin: 02/01/18 23:01 Dose: 20 mg Bupropion HCl (Wellbutrin -) 75 mg PO 0800,2000 [facility] Last Admin: 02/02/18 10:26 Dose: 75 mg Carvedilol (Coreg -) 12.5 mg PO BID [facility] Last Admin: 02/02/18 10:26 Dose: 12.5 mg Furosemide (Lasix Injection -) 40 mg IVPUSH DAILY [facility] Last Admin: 02/02/18 10:26 Dose: 40 mg Metformin HCl (Glucophage Xr -) 500 mg PO DAILY@0700 [facility] Last Admin: 02/02/18 06:23 Dose: 500 mg Nystatin (Nystop Powder -) 1 applic TP BID [facility] Last Admin: 02/02/18 10:27 Dose: 1 applic Sacubitril/Valsartan (Entresto 24 Mg-26 Mg Tablet) 1 tab PO BID [facility] Last Admin: 02/02/18 12:19 Dose: 1 tab Warfarin Sodium (Coumadin -) 7.5 mg PO DAILY@1800 [facility] Last Admin: 02/01/18 17:21 Dose: 7.5 mg Zolpidem Tartrate (Ambien -) 5 mg PO HS PRN PRN Reason: INSOMNIA Last Admin: 02/01/18 23:01 Dose: 5 mg Laboratory Results - last 24 hr 02/01/18 02/02/18 02/02/18 17:00 05:57 06:50 WBC 7.5 RBC 3.67 Hgb 10.9 Hct 33.8 D MCV 92.0 MCH 29.7 MCHC 32.3 RDW 19.4 H Plt Count 314 D MPV 7.9 PT with INR INR Sodium Potassium Chloride Carbon Dioxide Anion Gap BUN Creatinine Creat Clearance w eGFR POC Glucometer 124 Random Glucose Calcium Blood Type A POSITIVE Antibody Screen Negative Crossmatch See Detail 02/02/18 02/02/18 06:50 06:50 WBC RBC Hgb Hct MCV MCH MCHC RDW Plt Count MPV PT with INR 23.70 H INR 1.99 H Sodium 140 Potassium 4.7 Chloride 104 Carbon Dioxide 25 Anion Gap 12 BUN 39 H Creatinine 1.2 Creat Clearance w eGFR 44.54 POC Glucometer Random Glucose 131 H Calcium 8.8 Blood Type Antibody Screen Crossmatch Vital Signs Temperature 97.2 F L 02/02/18 14:00 Pulse Rate 76 02/02/18 14:00 Respiratory Rate 20 02/02/18 12:17 Blood Pressure 109/52 L 02/02/18 14:00 O2 Sat by Pulse Oximetry (%) 99 02/02/18 09:00 C:: no new complaints ``````````````````````````` skin--no acute lesions; IV access not red eyes--Rt cornea opaque lungs--BS distant; unlabored heart--RR abd--benign ext--no edema neuro--fully alert; coherent `````````````````````````````````` Summ > CHF--latest CXR showing some improvement while on Entresto (along with BB; sho Ariza); echo shows diffuse/global hypokinesis; current agents for now. Low BP will preclude raising doses of above meds. > anemia--no evidence of GI bleeding, but not a good candidate for endoscopy given very poor cardiac contractility; Hgb much improved since the last transfusion; will check daily. 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 > DM--on Metformin; but may need to stop if Bun/cr rises further; no evidence of acidemia > azotemia--2nd intra-vasc contraction > breast cancer--w/o evidence of metastasis; cont arimidex > Group Home a/c--placed on a/c for CVA prevention from MCA thrombosis; adjust as needed ~~~~~~~~~~~~ Dr Caputo Problem List - Problems (1) CHF (congestive heart failure) Code(s): I50.9 - HEART FAILURE, UNSPECIFIED Qualifiers: Heart failure type: unspecified Heart failure chronicity: unspecified Qualified Code(s): I50.9 - Heart failure, unspecified (2) Anemia Code(s): D64.9 - ANEMIA, UNSPECIFIED Qualifiers: Anemia type: unspecified type Qualified Code(s): D64.9 - Anemia, unspecified (3) Hypercholesterolemia Code(s): E78.00 - PURE HYPERCHOLESTEROLEMIA, UNSPECIFIED (4) COPD (chronic obstructive pulmonary disease) Code(s): J44.9 - CHRONIC OBSTRUCTIVE PULMONARY DISEASE, UNSPECIFIED Qualifiers: COPD type: unspecified COPD Qualified Code(s): J44.9 - Chronic obstructive pulmonary disease, unspecified (5) Anticoagulant long-term use Code(s): 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.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 (6) Diabetes mellitus type 2, noninsulin dependent Code(s): E11.9 - TYPE 2 DIABETES MELLITUS WITHOUT COMPLICATIONS (7) Breast cancer, left Code(s): C50.912 - MALIGNANT NEOPLASM OF UNSPECIFIED SITE OF LEFT FEMALE BREAST Qualifiers: Breast location: unspecified site of breast Estrogen receptor status: positive Patient sex: female Qualified Code(s): C50.912 - Malignant neoplasm of unspecified site of left female breast; Z17.0 - Estrogen receptor positive status [ER+] (8) Cancer of left breast Code(s): C50.912 - MALIGNANT NEOPLASM OF UNSPECIFIED SITE OF LEFT FEMALE BREAST Qualifiers: Breast location: upper outer quadrant of breast Estrogen receptor status: positive Patient sex: female Qualified Code(s): C50.412 - Malignant neoplasm of upper-outer quadrant of left female breast (9) Open abdominal wall wound Code(s): S31.109A - UNSP OPN WND ABD WALL, UNSP Q W/O PENET PERIT CAV, INIT Qualifiers: Encounter type: subsequent encounter Qualified Code(s): S31.109D - Unspecified open wound of abdominal wall, unspecified quadrant without penetration into peritoneal cavity, subsequent encounter (10) Depression Code(s): F32.9 - MAJOR DEPRESSIVE DISORDER, SINGLE EPISODE, UNSPECIFIED Qualifiers: Depression Type: unspecified Qualified Code(s): F32.9 - Major depressive disorder, single episode, unspecified (11) Visual impairment Code(s): H54.7 - UNSPECIFIED VISUAL LOSS
[2018-02-02] MEDS: ATORVASTATIN CA 20 MG TABLET (FP) PO SCH (22:16)
[2018-02-02] MEDS: ZOLPIDEM TARTRATE 5 MG TABLET PO PRN (22:16)
[2018-02-03] MEDS ORDERED: PT OWN MED DRAWER 7, Y5N ONE ×2 (05:48→09:29)
[2018-02-03 06:38] LABS: HEMATOCRIT 30.7 % (32.4-45.2); MCHC 32.6 g/dl (32.0-36.0); MEAN CELL VOLUME 91.9 fl (80-96); MEAN PLT VOLUME 7.6 fl (7.5-11.1); PLATELET COUNT 258 K/MM3 (134-434); RBC 3.34 M/mm3 (3.60-5.2); RDW 19.2 % (11.6-15.6); WHITE BLOOD COUNT 6.2 K/mm3 (4.0-10.0)
[2018-02-03 06:54] LABS: INR 2.25 (0.83-1.09); PROTHROMBIN TIME (PATIENT) 26.8 SEC (9.7-13.0)
[2018-02-03 07:15] LABS: ANION GAP 7 MMOL/L (8-16); BLOOD UREA NITROGEN 37 mg/dL (7-18); CALCIUM 8.5 mg/dL (8.5-10.1); CHLORIDE 105 mmol/L (98-107); CO2 29 mmol/L (21-32); CREATININE 1.2 mg/dL (0.55-1.3); GLUCOSE,RANDOM 110 mg/dL (74-106); POTASSIUM 4.6 mmol/L (3.5-5.1); SODIUM 141 mmol/L (136-145)
--- NOTE | 2018-02-03 09:46 | PN ---
Progress Note, Physician History of Present Illness: Dyspnea on exertion improving with diuresis, denies orthopnea. - Current Medication List Current Medications: Active Medications Albuterol/Ipratropium (Duoneb -) 1 amp NEB Q6H PRN PRN Reason: SHORTNESS OF BREATH Last Admin: 01/30/18 21:03 Dose: 1 amp Anastrozole (Arimidex -) 1 mg PO DAILY [facility] Last Admin: 02/02/18 10:27 Dose: 1 mg Atorvastatin Calcium (Lipitor -) 20 mg PO HS [facility] Last Admin: 02/02/18 22:16 Dose: 20 mg Bupropion HCl (Wellbutrin -) 75 mg PO 0800,2000 [facility] Last Admin: 02/02/18 22:16 Dose: 75 mg Carvedilol (Coreg -) 12.5 mg PO BID [facility] Last Admin: 02/02/18 22:16 Dose: 12.5 mg Furosemide (Lasix Injection -) 40 mg IVPUSH DAILY [facility] Last Admin: 02/02/18 10:26 Dose: 40 mg Metformin HCl (Glucophage Xr -) 500 mg PO DAILY@0700 [facility] Last Admin: 02/03/18 06:43 Dose: 500 mg Nystatin (Nystop Powder -) 1 applic TP BID [facility] Last Admin: 02/02/18 22:18 Dose: 1 applic Sacubitril/Valsartan (Entresto 24 Mg-26 Mg Tablet) 1 tab PO BID [facility] Last Admin: 02/02/18 22:16 Dose: 1 tab Warfarin Sodium (Coumadin -) 7.5 mg PO DAILY@1800 [facility] Last Admin: 02/02/18 17:59 Dose: 7.5 mg Zolpidem Tartrate (Ambien -) 5 mg PO PRN PRN Reason: INSOMNIA Last Admin: 02/02/18 22:16 Dose: 5 mg - Objective Vital Signs: Vital Signs Temperature 98.4 F 02/03/18 01:00 Pulse Rate 70 02/03/18 06:00 Respiratory Rate 20 02/03/18 08:52 Blood Pressure 118/56 L 02/03/18 06:00 O2 Sat by Pulse Oximetry (%) 99 02/03/18 08:52 Constitutional: Yes: No Distress, Calm Neck: Yes: Supple Cardiovascular: Yes: Regular Rate and Rhythm, Murmur (2/6 SM) Respiratory: Yes: Regular, Diminished, On Nasal O2 Gastrointestinal: Yes: Normal Bowel Sounds, Soft Edema: No Labs: CBC, BMP 02/03/18 05:30 02/03/18 05:30 INR, PTT INR 2.25 (0.83-1.09) H 02/03/18 05:30 - ....Imaging Chest X-ray: Report Reviewed (Improved CHF) EKG: Report Reviewed (Tele: SR, PVC) Problem List - Problems (1) Acute on chronic systolic congestive heart failure Code(s): I50.23 - ACUTE ON CHRONIC SYSTOLIC (CONGESTIVE) HEART FAILURE (2) Acute respiratory failure with hypoxia and hypercapnia Code(s): J96.01 - ACUTE RESPIRATORY FAILURE WITH HYPOXIA; J96.02 - ACUTE RESPIRATORY FAILURE WITH HYPERCAPNIA (3) COPD (chronic obstructive pulmonary disease) Code(s): J44.9 - CHRONIC OBSTRUCTIVE PULMONARY DISEASE, UNSPECIFIED Qualifiers: COPD type: unspecified COPD Qualified Code(s): J44.9 - Chronic obstructive pulmonary disease, unspecified (4) Diabetes mellitus type 2, noninsulin dependent Code(s): E11.9 - TYPE 2 DIABETES MELLITUS WITHOUT COMPLICATIONS (5) H/O: CVA (cerebrovascular accident) Code(s): Z86.73 - PRSNL HX OF TIA (TIA), AND CEREB INFRC W/O RESID DEFICITS (6) Hypertension Code(s): I10 - ESSENTIAL (PRIMARY) HYPERTENSION Qualifiers: Hypertension type: essential hypertension Qualified Code(s): I10 - Essential (primary) hypertension (7) Premature ventricular contraction Code(s): I49.3 - VENTRICULAR PREMATURE DEPOLARIZATION Assessment/Plan 12/24/2016 Echo: Normal LV size with moderate decreased LV fxn, mild pericardial effusion, mild ASHLEY, mod MR, mild OH, TR 01/28/2018 Echo: Normal LV size with severely decreased LV fxn EF 30-35%, normal RV size and fxn, mod LAE, mod MR 1. Acute on chronic LV systolic failure improving 2. History of CVA with left MCA thrombus and therapeutic INR 3. History of perforated sigmoid colon s/p sigmoidectomy and reversed colostomy 4. COPD with Chronic Hypoxic Respiratory Failure and long smoking history 5. HTN 6. Hypercholesterolemia 7. Anemia 8. Type 2 DM 9. Renal artery stenosis 10. PVC PLAN: 1. Change to oral diuresis (Lasix 20 qd and Aldactone 25 qd) with monitor renal function and electrolytes. 2. Continue Carvedilol 12.5 mg BID, Lipitor 20 mg QHS and Entresto 24/26 mg BID with uptitration as tolerated 3. Continue Warfarin as per INR 4. O2 to keep SpO2 >90% and inhaled bronchodilators as needed 5. Transfuse to maintain Hgb>8.0 6. Further cardiac evaluation to follow including possible nuclear MPI +/- cardiac catheterization/coronary angiography, but probably could be arranged as outpatient. LVEF needs to be followed with optimal medical therapy and if LVEF remains below 35%, she may need ICD as primary prophylaxis.
[2018-02-03] MEDS: NYSTATIN POWDER 100,000 UNITS/GM - 15 GM TOPICAL POWDER TP SCH ×2 (10:00→22:12)
--- NOTE | 2018-02-03 10:36 | PN ---
Progress Note, Physician History of Present Illness: pulmonary alert,feeling better,-resp distress - Current Medication List Current Medications: Active Medications Albuterol/Ipratropium (Duoneb -) 1 amp NEB Q6H PRN PRN Reason: SHORTNESS OF BREATH Last Admin: 01/30/18 21:03 Dose: 1 amp Anastrozole (Arimidex -) 1 mg PO DAILY [facility] Last Admin: 02/02/18 10:27 Dose: 1 mg Atorvastatin Calcium (Lipitor -) 20 mg PO HS [facility] Last Admin: 02/02/18 22:16 Dose: 20 mg Bupropion HCl (Wellbutrin -) 75 mg PO 0800,1999 [facility] Last Admin: 02/02/18 22:16 Dose: 75 mg Carvedilol (Coreg -) 12.5 mg PO BID [facility] Last Admin: 02/02/18 22:16 Dose: 12.5 mg Furosemide (Lasix Injection -) 40 mg IVPUSH DAILY [facility] Stop: 02/03/18 23:59 Last Admin: 02/02/18 10:26 Dose: 40 mg Furosemide (Lasix -) 20 mg PO DAILY [facility] Metformin HCl (Glucophage Xr -) 500 mg PO DAILY@0700 [facility] Last Admin: 02/03/18 06:43 Dose: 500 mg Nystatin (Nystop Powder -) 1 applic TP BID [facility] Last Admin: 02/02/18 22:18 Dose: 1 applic Sacubitril/Valsartan (Entresto 24 Mg-26 Mg Tablet) 1 tab PO BID [facility] Last Admin: 02/02/18 22:16 Dose: 1 tab Spironolactone (Aldactone -) 25 mg PO DAILY [facility] Warfarin Sodium (Coumadin -) 7.5 mg PO DAILY@1800 [facility] Last Admin: 02/02/18 17:59 Dose: 7.5 mg Zolpidem Tartrate (Ambien -) 5 mg PO HS PRN PRN Reason: INSOMNIA Last Admin: 02/02/18 22:16 Dose: 5 mg - Objective Vital Signs: Vital Signs Temperature 98.4 F 02/03/18 01:00 Pulse Rate 70 02/03/18 06:00 Respiratory Rate 20 02/03/18 08:52 Blood Pressure 118/56 L 02/03/18 06:00 O2 Sat by Pulse Oximetry (%) 99 02/03/18 08:52 Constitutional: Yes: Well Nourished, Calm Eyes: Yes: WNL HENT: Yes: WNL Neck: Yes: WNL Cardiovascular: Yes: Regular Rate and Rhythm, S1, S2 Respiratory: Yes: Diminished Gastrointestinal: Yes: Normal Bowel Sounds, Soft Extremities: Yes: WNL Edema: No Labs: CBC, BMP 02/03/18 05:30 02/03/18 05:30 INR, PTT INR 2.25 (0.83-1.09) H 02/03/18 05:30 Assessment/Plan Problem List - Problems (1) Acute on chronic systolic congestive heart failure Code(s): I50.23 - ACUTE ON CHRONIC SYSTOLIC (CONGESTIVE) HEART FAILURE (2) COPD (chronic obstructive pulmonary disease) Code(s): J44.9 - CHRONIC OBSTRUCTIVE PULMONARY DISEASE, UNSPECIFIED Qualifiers: COPD type: unspecified COPD Qualified Code(s): J44.9 - Chronic obstructive pulmonary disease, unspecified (3) Diabetes mellitus type 2, noninsulin dependent Code(s): E11.9 - TYPE 2 DIABETES MELLITUS WITHOUT COMPLICATIONS (4) Hypertension Code(s): I10 - ESSENTIAL (PRIMARY) HYPERTENSION Qualifiers: Hypertension type: essential hypertension Qualified Code(s): I10 - Essential (primary) hypertension Assessment/Plan Acute on Chronic Systolic Heart Failure clinically improving COPD Chronic Hypoxic Respiratory Failure h/o CVA with Left MCA thrombus HTN DM Hypercholesterolemia h/o Sigmoidectomy - lasix - monitor urine output, creatinine - daily weights - LASHELL-I/ARB, beta criselda - O2 to keep SpO2 >90% - inhaled bronchodilators as needed - anticoagulation DR CHACKO
[2018-02-03] MEDS: buPROPion HCL 75 MG TABLET PO SCH ×2 (10:57→22:12)
[2018-02-03] MEDS: CARVEDILOL 12.5 MG TABLET (FP) PO SCH ×2 (10:58→22:12)
[2018-02-03] MEDS: SPIRONOLACTONE 25 MG TABLET (FP) PO SCH (10:58)
[2018-02-03] MEDS: ANASTROZOLE 1 MG TABLET PO SCH (10:58)
[2018-02-03] MEDS: FUROSEMIDE 40 MG/4 ML INJECTABLE VIAL IVPUSH SCH (10:59)
[2018-02-03] MEDS: SACUBITRIL/VALSARTAN 24 MG-26 MG TABLET PO SCH ×2 (10:59→22:12)
--- NOTE | 2018-02-03 11:32 | PN ---
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 Old drain/fistula site LUQ is essentially healed, just covering with bandaid or gauze. Old stoma site is clean, granulating, healing in by secondary intention. Midline wound has additional small open spot just superior to lower open wound, being gently packed with 2x2 gauze (saline-damp on lower). Seen and examined in bed. No specific complaints or overnight events. Family not at bedside. Pt feeling well overall. Dressing has leaked a bit through to gown. - Current Medication List Current Medications: Active Medications Albuterol/Ipratropium (Duoneb -) 1 amp NEB Q6H PRN PRN Reason: SHORTNESS OF BREATH Last Admin: 01/30/18 21:03 Dose: 1 amp Anastrozole (Arimidex -) 1 mg PO DAILY [facility] Last Admin: 02/03/18 10:58 Dose: 1 mg Atorvastatin Calcium (Lipitor -) 20 mg PO HS [facility] Last Admin: 02/02/18 22:16 Dose: 20 mg Bupropion HCl (Wellbutrin -) 75 mg PO 0800,2000 [facility] Last Admin: 02/03/18 10:57 Dose: 75 mg Carvedilol (Coreg -) 12.5 mg PO BID [facility] Last Admin: 02/03/18 10:58 Dose: 12.5 mg Furosemide (Lasix Injection -) 40 mg IVPUSH DAILY [facility] Stop: 02/03/18 23:59 Last Admin: 02/03/18 10:59 Dose: 40 mg Furosemide (Lasix -) 20 mg PO DAILY [facility]S [facility] Metformin HCl (Glucophage Xr -) 500 mg PO DAILY@0700 [facility] Last Admin: 02/03/18 06:43 Dose: 500 mg Nystatin (Nystop Powder -) 1 applic TP BID [facility] Last Admin: 02/02/18 22:18 Dose: 1 applic Sacubitril/Valsartan (Entresto 24 Mg-26 Mg Tablet) 1 tab PO BID [facility] Last Admin: 02/03/18 10:59 Dose: 1 tab Spironolactone (Aldactone -) 25 mg PO DAILY [facility] Last Admin: 02/03/18 10:58 Dose: 25 mg Warfarin Sodium (Coumadin -) 7.5 mg PO DAILY@1800 [facility]S [facility] Last Admin: 02/02/18 17:59 Dose: 7.5 mg Zolpidem Tartrate (Ambien -) 5 mg PO HS PRN PRN Reason: INSOMNIA Last Admin: 02/02/18 22:16 Dose: 5 mg - Objective Vital Signs: Vital Signs Temperature 98.4 F 02/03/18 01:00 Pulse Rate 70 02/03/18 06:00 Respiratory Rate 20 02/03/18 08:52 Blood Pressure 118/56 L 02/03/18 06:00 O2 Sat by Pulse Oximetry (%) 99 02/03/18 08:52 Constitutional: Yes: Well Nourished, No Distress, Calm Eyes: Yes: Conjunctiva Clear (R pupil cloudy), EOM Intact HENT: Yes: Atraumatic, Normocephalic Respiratory: Yes: On Nasal O2. No: SOB Gastrointestinal: Yes: Soft, Abdomen, Obese. No: Tenderness Extremities: No: Cool, Cyanosis Integumentary: Yes: Incision (wounds dressed). No: Jaundice, Rash Wound/Incision: Yes: Dressing Removed (all dressings changed (see below)), Unapproximated. No: Dressing Dry and Intact (serous/serosang drainage coming through midline gauze) Neurological: Yes: Alert, Oriented Labs: CBC, BMP 02/03/18 05:30 02/03/18 05:30 INR, PTT INR 2.25 (0.83-1.09) H 02/03/18 05:30 Problem List - Problems (1) Open wound of abdominal wall, anterior, complicated Assessment/Plan: old drain/fistula site healed but for tiny moist spot, covered w/bandaid old stoma site healing well - dressed with 2x2 gauze, covered with tape midline wound with two open sites, lower granulating, shallow - saline-damp 2x2 gauze laid over wound base, then dry gauze and tape; open spot above that - 2x2 gauze tucked into wound, covered with dry gauze and tape change daily can shower with all dressings OUT/OFF if allowed off O2 to do so nurse can redo dressings, or coordinate timing with me pt will need to make appt for f/u with me in wound clinic for 02/16 pm - she knows to call Code(s): S31.109A - UNSP OPN WND ABD WALL, UNSP Q W/O PENET PERIT CAV, INIT Qualifiers: Encounter type: subsequent encounter Qualified Code(s): S31.109D - Unspecified open wound of abdominal wall, unspecified quadrant without penetration into peritoneal cavity, subsequent encounter (2) Disruption of internal operation (surgical) wound, not elsewhere classified , subsequent encounter Code(s): T81.32XD - DISRUPTION OF INTERNAL OPERATION (SURGICAL) WOUND, NEC, SUBS (3) Acute on chronic systolic congestive heart failure Assessment/Plan: Entresto started cardio following Code(s): I50.23 - ACUTE ON CHRONIC SYSTOLIC (CONGESTIVE) HEART FAILURE (4) COPD without exacerbation Assessment/Plan: on home-level O2 NC Code(s): J44.9 - CHRONIC OBSTRUCTIVE PULMONARY DISEASE, UNSPECIFIED (5) Anticoagulant long-term use Assessment/Plan: PMD adjusting coumadin, INR therapeutic Code(s): 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 (6) Anemia Code(s): D64.9 - ANEMIA, UNSPECIFIED Qualifiers: Anemia type: unspecified type Qualified Code(s): D64.9 - Anemia, unspecified (7) Diabetes mellitus type 2, noninsulin dependent Code(s): E11.9 - TYPE 2 DIABETES MELLITUS WITHOUT COMPLICATIONS (8) Hypertension Code(s): I10 - ESSENTIAL (PRIMARY) HYPERTENSION Qualifiers: Hypertension type: essential hypertension Qualified Code(s): I10 - Essential (primary) hypertension (9) Breast cancer, left Code(s): C50.912 - MALIGNANT NEOPLASM OF UNSPECIFIED SITE OF LEFT FEMALE BREAST Qualifiers: Breast location: unspecified site of breast Estrogen receptor status: positive Patient sex: female Qualified Code(s): C50.912 - Malignant neoplasm of unspecified site of left female breast; Z17.0 - Estrogen receptor positive status [ER+]
[2018-02-03] MEDS ORDERED: PANTOPRAZOLE 20 MG TABLET (FP) PO ONE (16:19)
--- NOTE | 2018-02-03 16:44 | PN ---
Progress Note (short form) - Note Progress Note: Current Medications Albuterol/Ipratropium (Duoneb -) 1 amp NEB Q6H PRN PRN Reason: SHORTNESS OF BREATH Last Admin: 01/30/18 21:03 Dose: 1 amp Anastrozole (Arimidex -) 1 mg PO DAILY [facility] Last Admin: 02/03/18 10:58 Dose: 1 mg Atorvastatin Calcium (Lipitor -) 20 mg PO HS [facility] Last Admin: 02/02/18 22:16 Dose: 20 mg Bupropion HCl (Wellbutrin -) 75 mg PO 0800,2000 [facility] Last Admin: 02/03/18 10:57 Dose: 75 mg Carvedilol (Coreg -) 12.5 mg PO BID [facility] Last Admin: 02/03/18 10:58 Dose: 12.5 mg Furosemide (Lasix Injection -) 40 mg IVPUSH DAILY [facility] Stop: 02/03/18 23:59 Last Admin: 02/03/18 10:59 Dose: 40 mg Furosemide (Lasix -) 20 mg PO DAILY [facility] Metformin HCl (Glucophage Xr -) 500 mg PO DAILY@0700 [facility] Last Admin: 02/03/18 06:43 Dose: 500 mg Nystatin (Nystop Powder -) 1 applic TP BID [facility] Last Admin: 02/02/18 22:18 Dose: 1 applic Sacubitril/Valsartan (Entresto 24 Mg-26 Mg Tablet) 1 tab PO BID [facility] Last Admin: 02/03/18 10:59 Dose: 1 tab Spironolactone (Aldactone -) 25 mg PO DAILY [facility] Last Admin: 02/03/18 10:58 Dose: 25 mg Warfarin Sodium (Coumadin -) 7.5 mg PO DAILY@1800 [facility] Last Admin: 02/02/18 17:59 Dose: 7.5 mg Zolpidem Tartrate (Ambien -) 5 mg PO HS PRN PRN Reason: INSOMNIA Last Admin: 02/02/18 22:16 Dose: 5 mg Laboratory Results - last 24 hr 02/03/18 02/03/18 02/03/18 05:28 05:30 05:30 WBC 6.2 RBC 3.34 L Hgb 10.0 L Hct 30.7 L MCV 91.9 MCH 30.0 MCHC 32.6 RDW 19.2 H Plt Count 258 MPV 7.6 PT with INR 26.80 H INR 2.25 H Sodium Potassium Chloride Carbon Dioxide Anion Gap BUN Creatinine Creat Clearance w eGFR POC Glucometer 114 Random Glucose Calcium 02/03/18 05:30 WBC RBC Hgb Hct MCV MCH MCHC RDW Plt Count MPV PT with INR INR Sodium 141 Potassium 4.6 Chloride 105 Carbon Dioxide 29 Anion Gap 7 L BUN 37 H Creatinine 1.2 Creat Clearance w eGFR 44.54 POC Glucometer Random Glucose 110 H Calcium 8.5 Vital Signs Temperature 97.7 F 02/03/18 14:00 Pulse Rate 69 02/03/18 14:00 Respiratory Rate 20 02/03/18 08:52 Blood Pressure 94/47 L 02/03/18 14:00 O2 Sat by Pulse Oximetry (%) 99 02/03/18 08:52 C:: no new complaints ``````````````````````````` skin--no acute lesions; IV access not red eyes--Rt cornea opaque lungs--BS distant; unlabored heart--RR abd--benign ext--no edema neuro--fully alert; coherent `````````````````````````````````` Summ > CHF--clinically improved; though little change in wgt; cont with BB; Lasix, warf, entresto; Aldactone added this agent may not be appropriate in view of her Hx of active breast cancer (it can stimulate growth of breast tissue); current agents for now. Low BP will preclude raising doses of above meds. > anemia--no evidence of GI bleeding, but not a good candidate for endoscopy given very poor cardiac contractility; Hgb at 10; will Rx temp course of PPI in the event she may developed stress ulcers while hospitalized. 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 > DM--on Metformin; but may need to stop if Bun/cr rises further; no evidence of acidemia > azotemia--stablized > breast cancer--w/o evidence of metastasis; cont arimidex > Mcfp a/c--INR okay; placed on a/c for CVA prevention from MCA thrombosis; adjust as needed ~~~~~~~~~~~~ Dr Caputo Problem List - Problems (1) CHF (congestive heart failure) Code(s): I50.9 - HEART FAILURE, UNSPECIFIED Qualifiers: Heart failure type: unspecified Heart failure chronicity: unspecified Qualified Code(s): I50.9 - Heart failure, unspecified (2) Anemia Code(s): D64.9 - ANEMIA, UNSPECIFIED Qualifiers: Anemia type: unspecified type Qualified Code(s): D64.9 - Anemia, unspecified (3) Hypercholesterolemia Code(s): E78.00 - PURE HYPERCHOLESTEROLEMIA, UNSPECIFIED (4) COPD (chronic obstructive pulmonary disease) Code(s): J44.9 - CHRONIC OBSTRUCTIVE PULMONARY DISEASE, UNSPECIFIED Qualifiers: COPD type: unspecified COPD Qualified Code(s): J44.9 - Chronic obstructive pulmonary disease, unspecified (5) Anticoagulant long-term use Code(s): Z79.01 - HALF-WAY (CURRENT) USE OF 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 (6) Diabetes mellitus type 2, noninsulin dependent Code(s): E11.9 - TYPE 2 DIABETES MELLITUS WITHOUT COMPLICATIONS (7) Breast cancer, left Code(s): C50.912 - MALIGNANT NEOPLASM OF UNSPECIFIED SITE OF LEFT FEMALE BREAST Qualifiers: Breast location: unspecified site of breast Estrogen receptor status: positive Patient sex: female Qualified Code(s): C50.912 - Malignant neoplasm of unspecified site of left female breast; Z17.0 - Estrogen receptor positive status [ER+] (8) Cancer of left breast Code(s): C50.912 - MALIGNANT NEOPLASM OF UNSPECIFIED SITE OF LEFT FEMALE BREAST Qualifiers: Breast location: upper outer quadrant of breast Estrogen receptor status: positive Patient sex: female Qualified Code(s): C50.412 - Malignant neoplasm of upper-outer quadrant of left female breast (9) Open abdominal wall wound Code(s): S31.109A - UNSP OPN WND ABD WALL, UNSP Q W/O PENET PERIT CAV, INIT Qualifiers: Encounter type: subsequent encounter Qualified Code(s): S31.109D - Unspecified open wound of abdominal wall, unspecified quadrant without penetration into peritoneal cavity, subsequent encounter (10) Depression Code(s): F32.9 - MAJOR DEPRESSIVE DISORDER, SINGLE EPISODE, UNSPECIFIED Qualifiers: Depression Type: unspecified Qualified Code(s): F32.9 - Major depressive disorder, single episode, unspecified (11) Visual impairment Code(s): H54.7 - UNSPECIFIED VISUAL LOSS
[2018-02-03] MEDS: WARFARIN NA 7.5 MG TABLET (FP) PO SCH (17:58)
[2018-02-03] MEDS: ATORVASTATIN CA 20 MG TABLET (FP) PO SCH (22:12)
[2018-02-03] MEDS: ZOLPIDEM TARTRATE 5 MG TABLET PO PRN (22:15)
[2018-02-04 07:00] LABS: HEMATOCRIT 31.5 % (32.4-45.2); MCH 29.4 pg (25.7-33.7); MCHC 31.7 g/dl (32.0-36.0); MEAN CELL VOLUME 92.6 fl (80-96); MEAN PLT VOLUME 7.7 fl (7.5-11.1); PLATELET COUNT 260 K/MM3 (134-434); RDW 18.8 % (11.6-15.6); WHITE BLOOD COUNT 5.6 K/mm3 (4.0-10.0)
[2018-02-04 07:36] LABS: ANION GAP 6 MMOL/L (8-16); BLOOD UREA NITROGEN 39 mg/dL (7-18); CALCIUM 8.5 mg/dL (8.5-10.1); CHLORIDE 104 mmol/L (98-107); CO2 29 mmol/L (21-32); CREATININE 1.2 mg/dL (0.55-1.3); GLUCOSE,RANDOM 114 mg/dL (74-106); INR 2.39 (0.83-1.09); POTASSIUM 4.6 mmol/L (3.5-5.1); PROTHROMBIN TIME (PATIENT) 28.4 SEC (9.7-13.0); SODIUM 138 mmol/L (136-145)
[2018-02-04] MEDS ORDERED: PT OWN MED DRAWER 7, Y5N ONE (09:32)
[2018-02-04] MEDS: CARVEDILOL 12.5 MG TABLET (FP) PO SCH ×2 (09:50→17:09)
[2018-02-04] MEDS: SACUBITRIL/VALSARTAN 24 MG-26 MG TABLET PO SCH (09:50)
[2018-02-04] MEDS: ANASTROZOLE 1 MG TABLET PO SCH (09:50)
[2018-02-04] MEDS: buPROPion HCL 75 MG TABLET PO SCH (09:50)
[2018-02-04] MEDS: SPIRONOLACTONE 25 MG TABLET (FP) PO SCH (09:50)
--- NOTE | 2018-02-04 09:54 | PN ---
Progress Note, Physician History of Present Illness: Dyspnea on exertion improving with diuresis, denies orthopnea. - Current Medication List Current Medications: Active Medications Albuterol/Ipratropium (Duoneb -) 1 amp NEB Q6H PRN PRN Reason: SHORTNESS OF BREATH Last Admin: 01/30/18 21:03 Dose: 1 amp Anastrozole (Arimidex -) 1 mg PO DAILY [facility] Last Admin: 02/04/18 09:50 Dose: 1 mg Atorvastatin Calcium (Lipitor -) 20 mg PO HS [facility] Last Admin: 02/03/18 22:12 Dose: 20 mg Bupropion HCl (Wellbutrin -) 75 mg PO 0800,2000 [facility] Last Admin: 02/04/18 09:50 Dose: 75 mg Carvedilol (Coreg -) 12.5 mg PO BID [facility] Last Admin: 02/04/18 09:50 Dose: 12.5 mg Furosemide (Lasix -) 20 mg PO DAILY [facility] Last Admin: 02/04/18 09:50 Dose: 20 mg Metformin HCl (Glucophage Xr -) 500 mg PO DAILY@0700 [facility] Last Admin: 02/04/18 06:27 Dose: 500 mg Nystatin (Nystop Powder -) 1 applic TP BID [facility] Last Admin: 02/03/18 22:12 Dose: 1 applic Sacubitril/Valsartan (Entresto 24 Mg-26 Mg Tablet) 1 tab PO BID [facility] Last Admin: 02/04/18 09:50 Dose: 1 tab Spironolactone (Aldactone -) 25 mg PO DAILY [facility] Last Admin: 02/04/18 09:50 Dose: 25 mg Warfarin Sodium (Coumadin -) 7.5 mg PO DAILY@1800 [facility] Last Admin: 02/03/18 17:58 Dose: 7.5 mg Zolpidem Tartrate (Ambien -) 5 mg PO HS PRN PRN Reason: INSOMNIA Last Admin: 02/03/18 22:15 Dose: 5 mg - Objective Vital Signs: Vital Signs Temperature 97.9 F 02/04/18 06:00 Pulse Rate 71 02/04/18 06:00 Respiratory Rate 20 02/04/18 06:00 Blood Pressure 113/57 L 02/04/18 06:00 O2 Sat by Pulse Oximetry (%) 100 02/03/18 21:00 Constitutional: Yes: No Distress, Calm Neck: Yes: Supple Cardiovascular: Yes: Regular Rate and Rhythm Respiratory: Yes: Regular, Diminished, On Nasal O2 Gastrointestinal: Yes: Normal Bowel Sounds, Soft Edema: No Labs: CBC, BMP 02/04/18 05:30 02/04/18 05:30 INR, PTT INR 2.39 (0.83-1.09) H 02/04/18 05:30 - ....Imaging EKG: Report Reviewed (Tele: SR occ PVC) Problem List - Problems (1) Acute on chronic systolic congestive heart failure Code(s): I50.23 - ACUTE ON CHRONIC SYSTOLIC (CONGESTIVE) HEART FAILURE (2) Acute respiratory failure with hypoxia and hypercapnia Code(s): J96.01 - ACUTE RESPIRATORY FAILURE WITH HYPOXIA; J96.02 - ACUTE RESPIRATORY FAILURE WITH HYPERCAPNIA (3) COPD (chronic obstructive pulmonary disease) Code(s): J44.9 - CHRONIC OBSTRUCTIVE PULMONARY DISEASE, UNSPECIFIED Qualifiers: COPD type: unspecified COPD Qualified Code(s): J44.9 - Chronic obstructive pulmonary disease, unspecified (4) Diabetes mellitus type 2, noninsulin dependent Code(s): E11.9 - TYPE 2 DIABETES MELLITUS WITHOUT COMPLICATIONS (5) H/O: CVA (cerebrovascular accident) Code(s): Z86.73 - PRSNL HX OF TIA (TIA), AND CEREB INFRC W/O RESID DEFICITS (6) Hypertension Code(s): I10 - ESSENTIAL (PRIMARY) HYPERTENSION Qualifiers: Hypertension type: essential hypertension Qualified Code(s): I10 - Essential (primary) hypertension (7) Premature ventricular contraction Code(s): I49.3 - VENTRICULAR PREMATURE DEPOLARIZATION Assessment/Plan 12/24/2016 Echo: Normal LV size with moderate decreased LV fxn, mild pericardial effusion, mild ASHLEY, mod MR, mild CT, TR 01/28/2018 Echo: Normal LV size with severely decreased LV fxn EF 30-35%, normal RV size and fxn, mod LAE, mod MR 1. Acute on chronic LV systolic failure improving 2. History of CVA with left MCA thrombus and therapeutic INR 3. History of perforated sigmoid colon s/p sigmoidectomy and reversed colostomy 4. COPD with Chronic Hypoxic Respiratory Failure and long smoking history 5. HTN 6. Hypercholesterolemia 7. Anemia 8. Type 2 DM 9. Renal artery stenosis 10. PVC PLAN: 1. Change to oral diuresis (Lasix 20 qd and Aldactone 25 qd) with monitor renal function and electrolytes. 2. Continue Carvedilol 12.5 mg BID, Lipitor 20 mg QHS and Entresto 24/26 mg BID with uptitration as tolerated 3. Continue Warfarin as per INR 4. O2 to keep SpO2 >90% and inhaled bronchodilators as needed 5. Transfuse to maintain Hgb>8.0 6. Further cardiac evaluation to follow including possible nuclear MPI +/- cardiac catheterization/coronary angiography, but probably could be arranged as outpatient. LVEF needs to be followed with optimal medical therapy and if LVEF remains below 35%, she may need ICD as primary prophylaxis. 7. Encourage ambulation and d/c planning
[2018-02-04] MEDS ORDERED: FUROSEMIDE 20 MG TABLET (FP) PO SCH (10:00)
[2018-02-04] MEDS: NYSTATIN POWDER 100,000 UNITS/GM - 15 GM TOPICAL POWDER TP SCH (10:10)
--- NOTE | 2018-02-04 15:18 | PN ---
Progress Note (short form) - Note Progress Note: Resting in NAD. Improving DOMINGUEZ. Intake & Output 02/01/18 02/02/18 02/03/18 02/04/18 23:59 23:59 23:59 23:59 Intake Total 910 1300 830 250 Output Total 620 Balance 910 1300 210 250 Weight 170 lb 170 lb 171 lb 6.4 oz Last Vital Signs Temp Pulse Resp BP Pulse Ox 97.7 F 71 20 108/54 L 100 02/04/18 09:00 02/04/18 09:00 02/04/18 09:00 02/04/18 09:00 02/04/18 09:00 Active Medications Albuterol/Ipratropium (Duoneb -) 1 amp NEB Q6H PRN PRN Reason: SHORTNESS OF BREATH Last Admin: 01/30/18 21:03 Dose: 1 amp Anastrozole (Arimidex -) 1 mg PO DAILY [facility] Last Admin: 02/04/18 09:50 Dose: 1 mg Atorvastatin Calcium (Lipitor -) 20 mg PO HS [facility] Last Admin: 02/03/18 22:12 Dose: 20 mg Bupropion HCl (Wellbutrin -) 75 mg PO 0800,2000 [facility] Last Admin: 02/04/18 09:50 Dose: 75 mg Carvedilol (Coreg -) 12.5 mg PO BID [facility] Last Admin: 02/04/18 09:50 Dose: 12.5 mg Eplerenone (Eplerenone) 25 mg PO DAILY [facility] Furosemide (Lasix -) 20 mg PO DAILY [facility] Last Admin: 02/04/18 09:50 Dose: 20 mg Metformin HCl (Glucophage Xr -) 500 mg PO DAILY@0700 [facility] Last Admin: 02/04/18 06:27 Dose: 500 mg Nystatin (Nystop Powder -) 1 applic TP BID [facility] Last Admin: 02/03/18 22:12 Dose: 1 applic Sacubitril/Valsartan (Entresto 24 Mg-26 Mg Tablet) 1 tab PO BID [facility] Last Admin: 02/04/18 09:50 Dose: 1 tab Warfarin Sodium (Coumadin -) 7.5 mg PO DAILY@1800 [facility] Last Admin: 02/03/18 17:58 Dose: 7.5 mg Zolpidem Tartrate (Ambien -) 5 mg PO HS PRN PRN Reason: INSOMNIA Last Admin: 02/03/18 22:15 Dose: 5 mg Constitutional: Yes: NAD Eyes: Yes: WNL HENT: Yes: WNL Neck: Yes: WNL Cardiovascular: Yes: Regular Rate and Rhythm, S1, S2 Respiratory: Yes: Diminished Gastrointestinal: Yes: Normal Bowel Sounds, Soft Extremities: Yes: WNL Edema: No Labs: Laboratory Results - last 24 hr 02/04/18 02/04/18 02/04/18 05:30 05:30 05:30 WBC 5.6 RBC 3.40 L Hgb 10.0 L Hct 31.5 L MCV 92.6 MCH 29.4 MCHC 31.7 L RDW 18.8 H Plt Count 260 MPV 7.7 PT with INR 28.40 H INR 2.39 H Sodium 138 Potassium 4.6 Chloride 104 Carbon Dioxide 29 Anion Gap 6 L BUN 39 H Creatinine 1.2 Creat Clearance w eGFR 44.54 POC Glucometer Random Glucose 114 H Calcium 8.5 02/04/18 06:26 WBC RBC Hgb Hct MCV MCH MCHC RDW Plt Count MPV PT with INR INR Sodium Potassium Chloride Carbon Dioxide Anion Gap BUN Creatinine Creat Clearance w eGFR POC Glucometer 116 Random Glucose Calcium Assessment/Plan Problem List - Problems (1) Acute on chronic systolic congestive heart failure Code(s): I50.23 - ACUTE ON CHRONIC SYSTOLIC (CONGESTIVE) HEART FAILURE (2) COPD (chronic obstructive pulmonary disease) Code(s): J44.9 - CHRONIC OBSTRUCTIVE PULMONARY DISEASE, UNSPECIFIED Qualifiers: COPD type: unspecified COPD Qualified Code(s): J44.9 - Chronic obstructive pulmonary disease, unspecified (3) Diabetes mellitus type 2, noninsulin dependent Code(s): E11.9 - TYPE 2 DIABETES MELLITUS WITHOUT COMPLICATIONS (4) Hypertension Code(s): I10 - ESSENTIAL (PRIMARY) HYPERTENSION Qualifiers: Hypertension type: essential hypertension Qualified Code(s): I10 - Essential (primary) hypertension Assessment/Plan Acute on Chronic Systolic Heart Failure clinically improving COPD Chronic Hypoxic Respiratory Failure h/o CVA with Left MCA thrombus HTN DM Hypercholesterolemia h/o Sigmoidectomy - lasix - monitor urine output, creatinine - daily weights - LASHELL-I/ARB, beta criselda - O2 to keep SpO2 >90% - inhaled bronchodilators as needed - anticoagulation Dr Cormier
[2018-02-04 15:50] VITALS: BP 123/54; PULSE 72; TEMP 97.9
[2018-02-04] MEDS: WARFARIN NA 7.5 MG TABLET (FP) PO SCH (17:09)
--- NOTE | 2018-02-04 17:18 | DS ---
Physical Examination Vital Signs: Vital Signs Temperature 97.9 F 02/04/18 14:00 Pulse Rate 72 02/04/18 14:00 Respiratory Rate 20 02/04/18 09:00 Blood Pressure 123/54 L 02/04/18 14:00 O2 Sat by Pulse Oximetry (%) 100 02/04/18 09:00 Constitutional: Yes: Well Nourished, No Distress, Calm HENT: Yes: Atraumatic Neck: Yes: Supple Cardiovascular: Yes: Regular Rate and Rhythm Respiratory: Yes: Diminished Gastrointestinal: Yes: Normal Bowel Sounds, Soft ...Rectal Exam: Yes: Guaiac Negative Extremities: Yes: WNL Edema: No Neurological: Yes: WNL, Alert, Oriented ...Motor Strength: WNL Psychiatric: Yes: WNL Labs: CBC, BMP 02/04/18 05:30 02/04/18 05:30 Discharge Summary Reason For Visit: ACUTE ON CHRONIC CHF,BILATERAL PLEURAL EFFUSION Current Active Problems Breast cancer, left (Acute) CHF (congestive heart failure) (Acute) Hypercholesterolemia (Acute) Open abdominal wall wound (Acute) Premature ventricular contraction (Acute) Visual impairment DM anemia light chain disease (kappa) COPD oxygen dependent History of thrombotic CVA skilled nursing anti-coagulation Procedures: Principal: dressing changes at bedside Other Procedures: 2 PC transfusions Hospital Course: chronically ill 67 YOF who became progressivley SOB, with underlying chronic COPD-CHF/pleural effusions; on arrival she was found to be in florid CHF; she was also significantly anemic (which was present since her previous discharge about 1 month ago). She was treated with IV diuretics, and seen by Cardiology. Echo showed significant biventricular dysfunction, as she did not respond effectively to high dose Furosemide. She was placed on Entresto, along with IV diuresis, and she improved radiographically but not fully cleared. Ultra-high doses of IV diuretics was precluded by rise in Bun/cr; her Hgb began to drop nearly from the onset. Stools tested negative for OB, and she was seen by Heme- onc who initiated Blood w/u. Studies resulted to date show the presence of [place] light chains but no M spike; she required 2 U of packed RBC, and her Hgb stabilized at 10. She stated that she had a similar course a year ago following her 1st GI surgery. All this time, she remained on Warfarin, but her levels were never supra-therapeutic. She was also seen by her surgeon to apply dressing to her unhealed abd wounds (which were found to be infection free and healing well). She was advised to f/u with supervisor firearms & surgeon post discharge. Condition: Improved - Instructions Diet, Activity, Other Instructions: Low salt diet; low sugar diet Check Blood pressure daily; hold the Furosemide if blood pressure goes too low check Glucose finger stick daily; increase dose of Metformin if Blood sugar over 150 continue with home oxygen continue dressing changes Take: 7.5mg of warfarin nightly Do blood work on Thursday of next week STOP: Losartan STOP: Potassium New dose of Carvedilol called in to pharmacy to be taken twice a day NEW pills; Entresto to be taken twice a day; and Eplerone to be taken once a day Continue all other medications you already have as shown on the list Referrals: Lukas Caputo MD [Primary Care Provider] - - Home Medications Comprehensive Discharge Medication List: Ambulatory Orders Anastrozole [Arimidex -] 1 mg PO DAILY 01/17/17 Atorvastatin Calcium 20 mg PO HS 01/17/17 Bupropion HCl [Wellbutrin -] 75 mg PO BID 01/17/17 Cyanocobalamin [Vitamin B12 -] 1,000 mcg PO DAILY 01/17/17 Albuterol 2.5/Ipratropium 0.5 [Duoneb -] 1 amp NEB Q6H PRN amp 02/04/18 Anastrozole [Arimidex -] 1 mg PO DAILY tablet 02/04/18 Carvedilol 12.5 mg PO BID #60 tablet 02/04/18 Carvedilol [Coreg -] 12.5 mg PO BID 30 Days #60 tablet 02/04/18 Eplerenone 25 mg PO DAILY 30 Days #30 tablet 02/04/18 Furosemide [Lasix] 80 mg PO DAILY #30 tablet 02/04/18 Metformin HCl [Metformin HCl ER] 1,000 mg PO DAILY #30 [id number] 02/04/18 Sacubitril/Valsartan [Entresto 24 mg-26 mg Tablet] 1 tab PO BID tablet Warfarin Na [Coumadin -] 7.5 mg PO DAILY@1800 tablet 02/04/18
[2018-02-05] MEDS ORDERED: EPLERENONE 25 MG TABLET PO SCH (10:00)
== END 2018-02-04 18:34 | disposition home or self-care (01) | DRG 292 ==
LOC: JER 07:11 → JERBED 10:56 → J4W 16:55
PROVIDERS: ADMIT Internal Medicine; ATTEND Internal Medicine
PROC: 30233N1 Transfusion of Nonautologous Red Blood Cells into Peripheral Vein, Percutaneous Approach (ICD-10-PCS; 2018-01-26)
PROC: 0HBRXZZ Excision of Toe Nail, External Approach (ICD-10-PCS; principal; 2018-02-02)
PROC: 0HBRXZZ Excision of Toe Nail, External Approach (ICD-10-PCS; 2018-02-02)
PROC: 0HBRXZZ Excision of Toe Nail, External Approach (ICD-10-PCS; 2018-02-02)
PROC: 0HBRXZZ Excision of Toe Nail, External Approach (ICD-10-PCS; 2018-02-02)
PROC: 0HBRXZZ Excision of Toe Nail, External Approach (ICD-10-PCS; 2018-02-02)
PROC: 0HBRXZZ Excision of Toe Nail, External Approach (ICD-10-PCS; 2018-02-02)
PROC: 0HBRXZZ Excision of Toe Nail, External Approach (ICD-10-PCS; 2018-02-02)
PROC: 0HBRXZZ Excision of Toe Nail, External Approach (ICD-10-PCS; 2018-02-02)
PROC: 0HBRXZZ Excision of Toe Nail, External Approach (ICD-10-PCS; 2018-02-02)
PROC: 0HBRXZZ Excision of Toe Nail, External Approach (ICD-10-PCS; 2018-02-02)
DX: I11.0 Hypertensive heart disease with heart failure (principal); J96.11 Chronic respiratory failure with hypoxia; J44.9 Chronic obstructive pulmonary disease, unspecified; I50.23 Acute on chronic systolic (congestive) heart failure; I42.8 Other cardiomyopathies; E11.9 Type 2 diabetes mellitus without complications; D63.8 Anemia in other chronic diseases classified elsewhere; E78.5 Hyperlipidemia, unspecified; C50.412 Malignant neoplasm of upper-outer quadrant of left female breast; I10 Essential (primary) hypertension; F17.210 Nicotine dependence, cigarettes, uncomplicated; R00.0 Tachycardia, unspecified; I70.1 Atherosclerosis of renal artery; K21.9 Gastro-esophageal reflux disease without esophagitis; F32.9 Major depressive disorder, single episode, unspecified; H54.8 Legal blindness, as defined in USA; M19.90 Unspecified osteoarthritis, unspecified site; B35.1 Tinea unguium; I49.3 Ventricular premature depolarization; S31.109D Unspecified open wound of abdominal wall, unspecified quadrant without penetration into peritoneal cavity, subsequent encounter; T81.32XD Disruption of internal operation (surgical) wound, not elsewhere classified, subsequent encounter; Z86.73 Personal history of transient ischemic attack (TIA), and cerebral infarction without residual deficits; Z99.81 Dependence on supplemental oxygen; Z79.01 Long term (current) use of anticoagulants; Z87.891 Personal history of nicotine dependence
CPT/HCPCS: 36415; 36430; 71045-TC-FY; 80048; 80053; 81003; 81015; 82272; 82550; 82607; 82728; 82747; 82784; 82962; 83021; 83036; 83540; 83550; 83615; 83735; 83880; 83883; 84155; 84165; 84439; 84443; 84484; 85014; 85025; 85027; 85610; 85651; 85660; 85730; 86140; 86334; 86850; 86900; 86901; 86922; 87081; 87086; 93005; 93010; 93306-TC; 94640; 99284-25; P9038; P9058

== ENCOUNTER 2018-12-23 11:01 | Emergency (ER) | payer OTHER ==
[2018-12-23 11:17] VITALS: BMI 32.5
--- NOTE | 2018-12-23 11:45 | PDOC ---
History of Present Illness - General Chief Complaint: Diarrhea Stated Complaint: DIARRHEA Time Seen by Provider: 12/23/18 11:44 History Source: Patient, Family Exam Limitations: No Limitations - History of Present Illness Initial Comments: 12/23/18 11:44 HPI: 68yo F with PMH CHF, NIDDM, HTN, Legally Blind, s/p colostomy reversal Oct 2017 with chronic ventral, sub umbilical abdominal wound and diarrhea since presenting today with concern over wound infection ("looks bad," smells bad, purulent appearance). Patient has felt fatigued / unwell for several days, endorses some recent nausea without vomiting. Denies fevers or chills. Patient was supposed to go for CT today at 11:30, but cancelled due to nausea and general malaise. Denies dark or bloody stool. Denies CP, SOB, CLARK, fevers, chills, constipation, weight loss. NKDA Meds: per chart PMH: as above PSH: as above Past History - Travel Traveled outside of the country in the last 30 days: No Close contact w/someone who was outside of country & ill: No - Past Medical History Allergies/Adverse Reactions: Allergies Allergy/AdvReac Type Severity Reaction Status Date / Time No Known Allergies Allergy Verified 12/23/18 11:14 Home Medications: Ambulatory Orders Atorvastatin Calcium 40 mg PO HS 01/17/17 Bupropion HCl [Wellbutrin -] 75 mg PO BID 01/17/17 Cyanocobalamin [Vitamin B12 -] 1,000 mcg PO DAILY 01/17/17 Anastrozole [Arimidex -] 1 mg PO DAILY tablet 02/04/18 Furosemide [Lasix] 80 mg PO DAILY #30 tablet 02/04/18 Sacubitril/Valsartan [Entresto 24 mg-26 mg Tablet] 1 tab PO BID tablet metFORMIN HCL [Metformin HCl ER] 1,000 mg PO DAILY #30 [id number] 02/04/18 Warfarin Na [Coumadin -] 2.5 mg PO DAILY@1800 09/14/18 Carvedilol [Coreg -] 25 mg PO BID 12/23/18 Eplerenone 25 mg PO ASDIR 12/23/18 Linagliptin [Tradjenta] 5 mg PO DAILY 12/23/18 Anemia: Yes Asthma: No Cancer: Yes (BASAL 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,lips,arms & back,Left Breast) Cardiac Disorders: Yes (CHF,COPD) CVA: Yes (10/25/2012 no residual on Coumadin) COPD: Yes (O2 dependent) CHF: Yes DVT: No Dementia: No Diabetes: Yes GI Disorders: Yes (perforated sigmoid colon with Colostiomy now reversed) Disorders: No HTN: Yes Hypercholesterolemia: Yes Liver Disease: No Seizures: No Thyroid Disease: No - Surgical History Abdominal Surgery: Yes Appendectomy: No Cardiac Surgery: No Cholecystectomy: No Lung Surgery: No Neurologic Surgery: No Orthopedic Surgery: No - Immunization History Immunization Up to Date: Yes - Psycho Social/Smoking Cessation Hx Smoking Status: Yes Smoking History: Never smoked Have you smoked in the past 12 months: No Number of Cigarettes Smoked Daily: 16 If you are a former smoker, when did you quit?: September 16, 2017 Information on smoking cessation initiated: No 'Breaking Loose' booklet given: 01/09/17 Hx Alcohol Use: No Drug/Substance Use Hx: No Substance Use Type: None Hx Substance Use Treatment: No Review of Systems - Review of Systems Able to Perform ROS?: Yes Is the patient limited Zimbabwean proficient: Yes Constitutional: Yes: Malaise. No: Chills, Diaphoresis, Fever, Weakness HEENTM: No: Recent change in vision, Nose Congestion, Throat Pain Respiratory: No: Cough, Shortness of Breath, Wheezing Cardiac (ROS): No: Chest Pain, Irregular Heart Rate, Lightheadedness, Palpitations, Chest Tightness ABD/GI: Yes: Diarrhea, Nausea. No: Blood Streaked Bowels, Constipated, Poor Appetite, Poor Fluid Intake, Rectal Bleeding, Vomiting, Tarry Stools : No: Burning, Dysuria, Pain, Urgency Musculoskeletal: No: Back Pain, Muscle Pain, Muscle Weakness Integumentary: Yes: See HPI, Erythema, Lesions. No: Pruritus, Rash Neurological: No: Headache, Numbness, Tingling, Weakness Psychiatric: No: Stressors, Mood Swings, Change in Appetite Endocrine: No: Excessive Sweating, Flushing, Change in Weight Hematologic/Lymphatic: No: Anemia, Blood Clots, Easy Bleeding, Easy Bruising All Other Systems: Reviewed and Negative *Physical Exam - Vital Signs Last Vital Signs Temp Pulse Resp BP Pulse Ox 98.2 F 94 H 17 108/38 L 100 12/23/18 11:10 12/23/18 11:10 12/23/18 11:10 12/23/18 11:10 12/23/18 11:10 - Physical Exam Comments: 12/23/18 13:54 AFVSS, intermittently soft pressures WDWN woman, appears stated age, NAD MMM, EOMI, NCAT RRR, nl s1s2, murmur at left sternal margin CTABL, normal WOB, no wheezes / rales / rhonchi Soft, nondistended, midline ventral wound below umbilicus with purulant coloration and foul smell, some surrounding erythema WWP, 2+ radial and PT pulses, no clubbing / cyanosis / edema, dry skin and distorted nails b/l feet Alert and oriented, CN grossly intact. MAEE, normal gait ED Treatment Course - LABORATORY CBC & Chemistry Diagram: 12/23/18 12:14 12/23/18 12:14 Medical Decision Making - Medical Decision Making 12/23/18 11:44 68yo F with PMH CHF, NIDDM, HTN, Legally Blind, s/p colostomy reversal Oct 2017 with chronic ventral, sub umbilical abdominal wound and diarrhea since presenting today with concern over wound infection ("looks bad," smells bad, purulent appearance). Wound infection, will obtain imaging to r/o communication with peritoneal cavity. -CBC, CMP, Lipase -IVF -CTAP w/o -Vancomycin / Zosyn 12/23/18 13:54 -No leukocytosis, anemia, elevated Cr (4.0) with elevated BUN (68) together concerning for upper GI bleed -Lipase, TSH unremarkable -Awaiting Non-contrast CTAP 12/23/18 15:02 -Lactate 3.3 -CTAP pending read -Additional IVF given 12/23/18 18:16 -INR 2.44 -Lactate down-trending to 2.6 -CTAP pending official read -Dr. Tinsley Consulted with general surgery Dispo: Admit Med/Surg 12/23/18 19:12 -CTAP pending, patient endorsed to night resident Dr. Mayo 12/23/18 19:15 -Dr. Tinsley requests patient transfer to [facility] for a specific abdominal wall surgeon Discharge - Discharge Information Problems reviewed: Yes Clinical Impression/Diagnosis: Open wound of abdominal wall, anterior, complicated Qualifiers: Encounter type: sequela Qualified Code(s): S31.109S - Unspecified open wound of abdominal wall, unspecified quadrant without penetration into peritoneal cavity, sequela Condition: Guarded Disposition: TRANSFER ACUTE CARE/OTHER HOSP - Admission Yes - Follow up/Referral Referrals: Lukas Caputo MD [Primary Care Provider] - - Patient Discharge Instructions - Post Discharge Activity
[2018-12-23] MEDS ORDERED: SODIUM CHLORIDE 0.9% 500 ML INFUS.BAG IV ONE (12:32)
[2018-12-23] MEDS ORDERED: VANCOMYCIN 1 GM in D5W (PRE-DOCKED) 1,000 MG/250 ML IVPB ONE (12:33)
[2018-12-23] MEDS ORDERED: PIPERACILLIN/TAZOB 3.375 GM 3.375 GM in DEXTROSE 5%-WATER - 50 ML IVPB ONE (12:34)
[2018-12-23 12:39] LABS: BASO % 0.4 % (0-2.0); EOS % 0.9 % (0-4.5); HEMATOCRIT 28.8 % (32.4-45.2); HEMOGLOBIN 9.4 GM/dL (10.7-15.3); LYMPH % 9.2 % (8-40); MCH 32.2 pg (25.7-33.7); MCHC 32.7 g/dl (32.0-36.0); MEAN CELL VOLUME 98.7 fl (80-96); MEAN PLT VOLUME 8.4 fl (7.5-11.1); MONO % 7.9 % (3.8-10.2); NEUT % 81.6 % (42.8-82.8); PLATELET COUNT 282 K/MM3 (134-434); RBC 2.92 M/mm3 (3.60-5.2); RDW 15.5 % (11.6-15.6); WHITE BLOOD COUNT 8.9 K/mm3 (4.0-10.0)
[2018-12-23] MEDS ORDERED: VANCOMYCIN 1 GRAM (PRE-DOCKED) 1,000 MG/250 ML BAG IVPB ONE (12:59)
[2018-12-23] MEDS ORDERED: PIPERACILLIN/TAZOB 3.375 GM 3.375 GM/50 ML BAG IVPB ONE (13:00)
[2018-12-23 13:20] LABS: ALBUMIN 3.2 g/dl (3.4-5.0); BILIRUBIN,TOTAL 0.2 mg/dL (0.2-1); BLOOD UREA NITROGEN 68.1 mg/dL (7-18); CALCIUM 9.1 mg/dL (8.5-10.1); POTASSIUM 4.3 mmol/L (3.5-5.1); TOT PROT 6.7 g/dl (6.4-8.2)
--- NOTE | 2018-12-23 15:48 | PDOC ---
Documentation entered by Rosario Mackay SCRIBE, acting as scribe for Betty Ledesma MD. Betty Ledesma MD: This documentation has been prepared by the Thompson henderson Sammi, SCRIBE, under my direction and personally reviewed by me in its entirety. I confirm that the documentation accurately reflects all work, treatment, procedures, and medical decision making performed by me. Attending Attestation - Resident Resident Name: ErnieChao - ED Attending Attestation I have performed the following: I have examined & evaluated the patient, The case was reviewed & discussed with the resident, I agree w/resident's findings & plan, Exceptions are as noted - HPI HPI: 12/23/18 13:50 The patient is a 68 year old female who presents to the emergency department for evaluation of an infection to a stomach wound, which she states is discharging and has a foul odor. The patient also complains of almost 1 year of increased general malaise with intermittent nausea and dark brown diarrhea. Denies any headache, dizziness, focal weakness or numbness, chest pain, shortness of breath, urinary symptoms, lower extremity edema.Of note, patient was due to have a CT scan of the abdomen and pelvis with oral contrast as an outpt. Pt drank oral contrast at 730am today. She states due to feeling unwell , she presented to the emergency department instead. PMH: CHF, NIDDM, HTN, Legally Blind, s/p colostomy reversal Oct 2017 (Dr. Mitchell) PCP: Commentucci - Physicial Exam PE: 12/23/18 15:38 agree with resident exam - Medical Decision Making 12/23/18 15:38 68-year-old female with a history of multiple medical problems including ostomy reversal, 1 year of dark loose stools. Labs remarkable for seven-point hematocrit drop in 2 months, lactic of 2.8, creatinine jumped from to 4 (baseline in the low to mid ones). Stool occult is positive. SIVA likely due to dehydration. Patient has been ordered for 1L NS as she appears dry, but last EF 30% in 2018 Likely GI bleed, as well as concern for wound infection at site of ostomy reversal. We will proceed with CT scan of abdomen and pelvis to rule out any intraperitoneal extension of skin infection. In light of lactic, wound infection ,and intermittently low blood pressures, patient was covered empirically with Vanco and Zosyn Anticipate consultation with surgery as well as admission. 12/23/18 16:40 CTAP pending, Dr. Tinsley has been consulted Possible transfer for surgery at [facility] being arranged by Dr. Stephen Epperson pending CTAP Case signed out to evening attending
--- NOTE | 2018-12-23 17:08 | PN ---
Progress Note, Physician - Objective Vital Signs: Vital Signs Temperature 97.4 F L 12/23/18 11:45 Pulse Rate 85 12/23/18 13:00 Respiratory Rate 18 12/23/18 13:00 Blood Pressure 124/46 L 12/23/18 13:00 O2 Sat by Pulse Oximetry (%) 96 12/23/18 13:00 Labs: CBC, BMP 12/23/18 12:14 12/23/18 12:14
--- NOTE | 2018-12-23 17:11 | CONSULT ---
Consult Consult Specialty:: General Surgery Reason for Consultation:: Large ventral incisional hernia - History of Present Illness History of Present Illness: 68yo female PMH current heavy smoker, DM, HTN/HCVD, past CVA (with MCA thrombus) , hypercholesterolemia, non-ischemic dilated CM with moderate LV systolic dysfunction and history of LV failure, distal left renal artery stenosis, s/p Hartemann reversal, well-known to Dr. 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 Old drain/fistula site LUQ is essentially healed, just covering with bandaid or gauze. Old stoma site is clean, granulating, healing in by secondary intention. Midline wound has additional small open spot just superior to lower open wound, being gently packed with 2x2 gauze (saline-damp on lower). Drinks 2L pepsi q 2 days and smokes 1PPD. 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 DEVELOPER: Yes: CVA (no residual) Cardio/Vascular: Yes: CHF (systolic), HTN (concern for L renal artery stenosis) , Hyperlipdemia Pulmonary: Yes: COPD Gastrointestinal: Yes: GERD Renal/: Yes: Other (L renal artery stenosis) Infectious Disease: Yes: C-Diff Psych: Yes: Depression Musculoskeletal: Yes: Osteoarthritis ENT: Yes: Other (visually impaired) Endocrine: Yes: Diabetes Mellitus (NIDDM) Dermatology: Yes: Basal Cell (multiple sites removed) Additional Medical History: legally blind, 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 No: Colonoscopy (never had) - Alcohol/Substance Use Hx Alcohol Use: No History of Substance Use: reports: None - Smoking History Smoking history: Never smoked Have you smoked in the past 12 months: No Aproximately how many cigarettes per day: 16 If you are a former smoker, when did you quit?: September 16, 2017 - Social History Usual Living Arrangement: With Spouse (last several weeks since hospital d/c) ADL: Independent History of Recent Travel: No Home Medications - Allergies Allergies/Adverse Reactions: Allergies Allergy/AdvReac Type Severity Reaction Status Date / Time No Known Allergies Allergy Verified 12/23/18 11:14 - Home Medications Home Medications: Ambulatory Orders Atorvastatin Calcium 40 mg PO HS 01/17/17 Bupropion HCl [Wellbutrin -] 75 mg PO BID 01/17/17 Cyanocobalamin [Vitamin B12 -] 1,000 mcg PO DAILY 01/17/17 Anastrozole [Arimidex -] 1 mg PO DAILY tablet 02/04/18 Furosemide [Lasix] 80 mg PO DAILY #30 tablet 02/04/18 Sacubitril/Valsartan [Entresto 24 mg-26 mg Tablet] 1 tab PO BID tablet metFORMIN HCL [Metformin HCl ER] 1,000 mg PO DAILY #30 [id number] 02/04/18 Warfarin Na [Coumadin -] 2.5 mg PO DAILY@1800 09/14/18 Carvedilol [Coreg -] 25 mg PO BID 12/23/18 Eplerenone 25 mg PO ASDIR 12/23/18 Linagliptin [Tradjenta] 5 mg PO DAILY 12/23/18 Family Medical History Family History: Unable to Obtain Review of Systems - Review of Systems Constitutional: reports: Loss of Appetite, Unintentional Wgt. Loss. denies: Chills, Fever Eyes: reports: Blind Spots. denies: Recent Change in Vision HENT: denies: Difficult Swallowing, Throat Pain Neck: denies: Decreased ROM, Tenderness Cardiovascular: denies: Chest Pain, Palpitations Respiratory: denies: Cough, SOB Gastrointestinal: reports: Abdominal Pain, Diarrhea. denies: Constipation, Dysphagia, Indigestion Genitourinary: denies: Lesions, Pain, Testicular Swelling Breasts: reports: No Symptoms Reported, See HPI. denies: Pain, Skin Changes Musculoskeletal: denies: Joint Swelling, Muscle Cramps Integumentary: denies: Lesions, Lump Neurological: denies: Seizure, Syncope Endocrine: denies: Unexplained Weight Gain, Unexplained Weight Loss Hematology/Lymphatic: denies: Easily Bruised, Excessive Bleeding Psychiatric: reports: Depression. denies: Anxiety Physical Exam Vital Signs: Vital Signs Temperature 97.4 F L 12/23/18 11:45 Pulse Rate 85 12/23/18 13:00 Respiratory Rate 18 12/23/18 13:00 Blood Pressure 124/46 L 12/23/18 13:00 O2 Sat by Pulse Oximetry (%) 96 12/23/18 13:00 Constitutional: Yes: No Distress, Calm, Obese Eyes: Yes: Conjunctiva Clear, Other (right eye blindness) HENT: Yes: Atraumatic, Normocephalic Neck: Yes: Supple, Trachea Midline Cardiovascular: Yes: Regular Rate and Rhythm, S1, S2 Respiratory: Yes: Regular, CTA Bilaterally Gastrointestinal: Yes: Normal Bowel Sounds, Soft, Abdomen, Obese, Hernia (large lower ventral incisional hernia), Other (Large 2 area skin defect with necorsis) . No: Tenderness, Tenderness, Epigastrium, Tenderness, Rebound Renal/: No: CVA Tenderness - Left, CVA Tenderness - Right Extremities: No: Cool, Cyanosis Edema: Yes Edema: LLE: 2+, RLE: 2+ Peripheral Pulses WNL: Yes Integumentary: Yes: Venous Stasis Changes. No: Jaundice Wound/Incision: Yes: Clean/Dry, Draining (greenish exudate both wounds), Excoriated, Unapproximated Neurological: Yes: Alert, Oriented Psychiatric: Yes: Alert, Oriented Labs: CBC, BMP 12/23/18 12:14 12/23/18 12:14 Imaging - Results Chest X-ray: Report Reviewed, Image Reviewed Cat Scan: Report Reviewed, Image Reviewed EKG: Pending Problem List - Problems (1) Open wound of abdominal wall, anterior, complicated Assessment/Plan: 68yo female with MMP diarrhea, dehydration, renal failure. Dr. Mitchell has identified a Dr. Junior Garcia at [facility] who can perform complex abdominal wall reconstruction. In the interim smoking cessation is of paramount importance and at least in part responsible for her abdominal dehissance IVF resuscitation with attention EF Medical management Smoking Cessation optimize protein nutrition Problems reviewed: Yes Code(s): S31.109A - UNSP OPN WND ABD WALL, UNSP Q W/O PENET PERIT CAV, INIT Qualifiers: Encounter type: sequela Qualified Code(s): S31.109S - Unspecified open wound of abdominal wall, unspecified quadrant without penetration into peritoneal cavity, sequela (2) Breast cancer, left Problems reviewed: No Code(s): C50.912 - MALIGNANT NEOPLASM OF UNSPECIFIED SITE OF LEFT FEMALE BREAST Qualifiers: Breast location: unspecified site of breast Estrogen receptor status: unspecified Patient sex: female Qualified Code(s): C50.912 - Malignant neoplasm of unspecified site of left female breast (3) CHF (congestive heart failure) Problems reviewed: No Code(s): I50.9 - HEART FAILURE, UNSPECIFIED Qualifiers: Heart failure type: systolic Heart failure chronicity: chronic Qualified Code(s): I50.22 - Chronic systolic (congestive) heart failure (4) COPD with exacerbation Code(s): J44.1 - CHRONIC OBSTRUCTIVE PULMONARY DISEASE W (ACUTE) EXACERBATION (5) Dehydration Problems reviewed: Yes Code(s): E86.0 - DEHYDRATION (6) Depression Problems reviewed: No Code(s): F32.9 - MAJOR DEPRESSIVE DISORDER, SINGLE EPISODE, UNSPECIFIED Qualifiers: Depression Type: unspecified Qualified Code(s): F32.9 - Major depressive disorder, single episode, unspecified (7) Diabetes mellitus type 2, noninsulin dependent Problems reviewed: Yes Code(s): E11.9 - TYPE 2 DIABETES MELLITUS WITHOUT COMPLICATIONS (8) Disruption of internal operation (surgical) wound, not elsewhere classified , initial encounter Problems reviewed: Yes Code(s): T81.32XA - DISRUPTION OF INTERNAL OPERATION (SURGICAL) WOUND, NEC, INIT (9) Postoperative fistula Problems reviewed: Yes Code(s): T81.83XA - PERSISTENT POSTPROCEDURAL FISTULA, INITIAL ENCOUNTER (10) Protein calorie malnutrition Problems reviewed: Yes Code(s): E46 - UNSPECIFIED PROTEIN-CALORIE MALNUTRITION Qualifiers: Protein-calorie malnutrition severity: severe Qualified Code(s): E43 - Unspecified severe protein-calorie malnutrition (11) Tobacco abuse Problems reviewed: Yes Code(s): Z72.0 - TOBACCO USE
[2018-12-23 17:17] LABS: INR 2.44 (0.83-1.09)
[2018-12-23 17:21] LABS: ACTIVATED PTT 45.1 SECONDS (25.2-36.5)
[2018-12-23] MEDS ORDERED: SODIUM CHLORIDE 0.45% 1,000 ML IV SCH (19:15)
--- NOTE | 2018-12-23 19:19 | PDOC ---
*Physical Exam - Vital Signs Last Vital Signs Temp Pulse Resp BP Pulse Ox 97.4 F L 80 18 105/43 L 97 12/23/18 11:45 12/23/18 18:35 12/23/18 13:00 12/23/18 18:35 12/23/18 18:35 ED Treatment Course - LABORATORY CBC & Chemistry Diagram: 12/23/18 12:14 12/23/18 12:14 - ADDITIONAL ORDERS Additional order review: Laboratory Results 12/23/18 12/23/18 12/23/18 16:06 16:06 12:14 PT with INR 29.00 H INR 2.44 H PTT (Actin FS) 45.1 H Sodium Potassium Chloride Carbon Dioxide Anion Gap BUN Creatinine Est GFR (CKD-EPI)AfAm Est GFR (CKD-EPI)NonAf Random Glucose Lactic Acid 2.6 H* 3.3 H* Calcium Total Bilirubin AST ALT Alkaline Phosphatase Total Protein Albumin Stool Occult Blood 12/23/18 12/23/18 12:14 12:00 PT with INR INR PTT (Actin FS) Sodium 141 Potassium 4.3 Chloride 112 H Carbon Dioxide 16 L Anion Gap 14 BUN 68.1 H Creatinine 4.0 H Est GFR (CKD-EPI)AfAm 12.37 Est GFR (CKD-EPI)NonAf 10.67 Random Glucose 111 H Lactic Acid Calcium 9.1 Total Bilirubin 0.2 AST 8 L ALT 12 L Alkaline Phosphatase 103 Total Protein 6.7 Albumin 3.2 L Stool Occult Blood Positive 12/23/18 12:05 Gram Stain - Final Abdomen 12/23/18 12:14 RBC 2.92 L MCV 98.7 H MCHC 32.7 RDW 15.5 MPV 8.4 Neutrophils % 81.6 Lymphocytes % 9.2 Monocytes % 7.9 Eosinophils % 0.9 Basophils % 0.4 - Medications Given in the ED: ED Medications Discontinued Medications Generic Name Dose Route Start Last Admin Trade Name Freq PRN Reason Stop Dose Admin Piperacillin Sod/Tazobactam 50 mls @ 100 mls/hr 12/23/18 12:34 12/23/18 13:05 Sod 3.375 gm/ Dextrose IVPB 12/23/18 13:03 100 mls/hr ONCE ONE Administration Protocol Sodium Chloride 1,000 ml 12/23/18 12:32 12/23/18 13:05 Normal Saline - IV 12/23/18 12:33 1,000 ml ONCE ONE Administration Vancomycin HCl 1,000 mg 12/23/18 12:33 12/23/18 13:35 Vancomycin (Pre-Docked) IVPB 12/23/18 12:34 1,000 mg ONCE ONE Administration Protocol Medical Decision Making - Medical Decision Making 12/23/18 19:19 68 y/o F hx of CHF, NIDDM, HTN s/p colostomy reversal 10/2017 presnting with abdominal wound (umbilical) non contrast CT abdomen pending. has received antibiotics vanc and zosyn, IV fluids Bun/Cr elevated 68/4 PCP : Dr. Lukas Estrada 12/23/18 19:[address] Junior Soria at [facility]. Transport arranged by [place] through [facility]. Plans for transfer and risk have been explained to the patient. Pt in agreement with transfer plans. 12/23/18 20:03 12/23/18 20:04 Discharge - Discharge Information Clinical Impression/Diagnosis: Open wound of abdominal wall, anterior, complicated Qualifiers: Encounter type: sequela Qualified Code(s): S31.109S - Unspecified open wound of abdominal wall, unspecified quadrant without penetration into peritoneal cavity, sequela Condition: Guarded - Follow up/Referral Referrals: Lukas Caputo MD [Primary Care Provider] - - Patient Discharge Instructions - Post Discharge Activity
--- NOTE | 2018-12-23 19:38 | HP ---
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 Mitchell from previous admissions, s/p reversal of colostomy with takedown of enterocutaneous fistula and scar revision 11/24/17, complicated by wound dehiscence of lower midline incision with small fascial breakdown, getting daily dressing changes. Old drain/fistula site LUQ is essentially healed, just covering with bandaid or gauze. Old stoma site is clean, granulating, healing in by secondary intention. Midline wound has additional small open spot just superior to lower open wound, being gently packed with 2x2 gauze (saline-damp on lower). She had been c/o loose or watery stools since the Reversal procedure of 2017, and over the past few months she has been having more frequent abd pains overlying the wound. It was established clinically that she'd developed a hernia on the operative site which was confirmed by abd CT. It has been felt that wound healing issues have been amplified by her ongoing smoking and that she is diabetic. She denies any CP; SOB, n-v (not today); palpitations, but feels weak. 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) Cardiovascular: Yes: CHF (systolic), HTN (concern for L renal artery stenosis), Hyperlipdemia Pulmonary: Yes: COPD Gastrointestinal: Yes: GERD Renal/: Yes: Renal Inusuff, Other (L renal artery stenosis) Heme/Onc: Yes: Anemia, B12 Deficiency, Cancer, Other Infectious Disease: Yes: C-Diff Psych: Yes: Depression Musculoskeletal: Yes: Osteoarthritis ENT: Yes: Other (visually impaired) Endocrine: Yes: Diabetes Mellitus (NIDDM) Dermatology: Yes: Basal Cell (multiple sites removed) - Past Surgical History Past Surgical History: Yes: Breast Biopsy (2005 and 06/16), Cataract Removal ( bilateral), Colectomy (sigmoidectomy with colostomy (Dwaine's) for perforated sigmoid), Colostomy (reversed). No: Colonoscopy (never had) - Smoking History Smoking history: Current every day smoker Have you smoked in the past 12 months: Yes Aproximately how many cigarettes per day: 16 If you are a former smoker, when did you quit?: September 16, 2017 - Alcohol/Substance Use Hx Alcohol Use: No History of Substance Use: reports: None - Social History Usual Living Arrangement: Yes: Alone, Other () ADL: Family Assistance History of Recent Travel: No Home Medications - Allergies Allergies/Adverse Reactions: Allergies Allergy/AdvReac Type Severity Reaction Status Date / Time No Known Allergies Allergy Verified 12/23/18 11:14 - Home Medications Home Medications: Ambulatory Orders Atorvastatin Calcium 40 mg PO HS 01/17/17 Bupropion HCl [Wellbutrin -] 75 mg PO BID 01/17/17 Cyanocobalamin [Vitamin B12 -] 1,000 mcg PO DAILY 01/17/17 Anastrozole [Arimidex -] 1 mg PO DAILY tablet 02/04/18 Furosemide [Lasix] 80 mg PO DAILY #30 tablet 02/04/18 Sacubitril/Valsartan [Entresto 24 mg-26 mg Tablet] 1 tab PO BID tablet metFORMIN HCL [Metformin HCl ER] 1,000 mg PO DAILY #30 [id number] 02/04/18 Warfarin Na [Coumadin -] 2.5 mg PO DAILY@1800 09/14/18 Carvedilol [Coreg -] 25 mg PO BID 12/23/18 Eplerenone 25 mg PO ASDIR 12/23/18 Linagliptin [Tradjenta] 5 mg PO DAILY 12/23/18 Family Medical History Family Hx Cancer: Sister Family Hx Diabetes: Sister Review of Systems - Review of Systems Constitutional: reports: Weakness Eyes: reports: Other (Rt eye blind; Lt eye partial vision) HENT: reports: No Symptoms Neck: reports: No Symptoms Cardiovascular: reports: No Symptoms Respiratory: reports: No Symptoms Gastrointestinal: reports: Abdominal Pain, Diarrhea Genitourinary: reports: No Symptoms Breasts: reports: No Symptoms Reported Musculoskeletal: reports: No Symptoms Integumentary: reports: Incision (abd; draining) Neurological: reports: No Symptoms Endocrine: reports: No Symptoms Hematology/Lymphatic: reports: No Symptoms Psychiatric: reports: Anxiety, Depression Pain Intensity: 3 Physical Examination Vital Signs: Vital Signs Temperature 97.4 F L 12/23/18 11:45 Pulse Rate 80 12/23/18 18:35 Respiratory Rate 18 12/23/18 13:00 Blood Pressure 105/43 L 12/23/18 18:35 O2 Sat by Pulse Oximetry (%) 97 12/23/18 18:35 Constitutional: Yes: Well Nourished, Calm, Anxious Eyes: Yes: Other (Rt eye blind) HENT: Yes: WNL Neck: Yes: WNL Cardiovascular: Yes: Pulse Irregular Respiratory: Yes: Regular, CTA Bilaterally Gastrointestinal: Yes: Normal Bowel Sounds, Soft, Tenderness ...Rectal Exam: Yes: Guaiac Positive Musculoskeletal: Yes: WNL Extremities: Yes: WNL Edema: No Peripheral Pulses WNL: No Peripheral Pulses: Left Femoral: 1+, Right Femoral: 1+ Integumentary: Yes: Incision (abd; multiple wounds) Neurological: Yes: WNL, Alert ...Motor Strength: WNL Psychiatric: Yes: WNL Labs: CBC, BMP 12/23/18 12:14 12/23/18 12:14 CBCD WBC 8.9 K/mm3 (4.0-10.0) 12/23/18 12:14 RBC 2.92 M/mm3 (3.60-5.2) L 12/23/18 12:14 Hgb 9.4 GM/dL (10.7-15.3) L 12/23/18 12:14 Hct 28.8 % (32.4-45.2) L D 12/23/18 12:14 MCV 98.7 fl (80-96) H 12/23/18 12:14 MCHC 32.7 g/dl (32.0-36.0) 12/23/18 12:14 RDW 15.5 % (11.6-15.6) 12/23/18 12:14 Plt Count 282 K/MM3 (134-434) 12/23/18 12:14 MPV 8.4 fl (7.5-11.1) 12/23/18 12:14 CMP Sodium 141 mmol/L (136-145) 12/23/18 12:14 Potassium 4.3 mmol/L (3.5-5.1) 12/23/18 12:14 Chloride 112 mmol/L (98-107) H 12/23/18 12:14 Carbon Dioxide 16 mmol/L (21-32) L 12/23/18 12:14 Anion Gap 14 MMOL/L (8-16) 12/23/18 12:14 BUN 68.1 mg/dL (7-18) H 12/23/18 12:14 Creatinine 4.0 mg/dL (0.55-1.3) H 12/23/18 12:14 Random Glucose 111 mg/dL (74-106) H 12/23/18 12:14 Calcium 9.1 mg/dL (8.5-10.1) 12/23/18 12:14 Total Bilirubin 0.2 mg/dL (0.2-1) 12/23/18 12:14 AST 8 U/L (15-37) L 12/23/18 12:14 ALT 12 U/L (13-61) L 12/23/18 12:14 Alkaline Phosphatase 103 U/L (45-117) 12/23/18 12:14 Total Protein 6.7 g/dl (6.4-8.2) 12/23/18 12:14 Albumin 3.2 g/dl (3.4-5.0) L 12/23/18 12:14 INR, PTT INR 2.44 (0.83-1.09) H 12/23/18 16:06 Imaging - Results Chest X-ray: Report Reviewed EKG: Report Reviewed Problem List - Problems (1) Open wound of abdominal wall, anterior, complicated Assessment/Plan: non healing wound; complicated by underlying herniation of bowel w/o incarceration. She will likely need surg intervention but it has been strongly advised that she now be sent to tertiary Ctr ([facility]); under the care of Dr Garcia who is a abd wall hernia specialist. This was recommended by her current surgeons Code(s): S31.109A - UNSP OPN WND ABD WALL, UNSP Q W/O PENET PERIT CAV, INIT Qualifiers: Encounter type: sequela Qualified Code(s): S31.109S - Unspecified open wound of abdominal wall, unspecified quadrant without penetration into peritoneal cavity, sequela (2) Disruption of internal operation (surgical) wound, not elsewhere classified , initial encounter Assessment/Plan: see above Code(s): T81.32XA - DISRUPTION OF INTERNAL OPERATION (SURGICAL) WOUND, NEC, INIT (3) Anemia Assessment/Plan: chronic but now has stools that have tested (+) for OB; would need GI evaluation as well; no Hx of colitis celiac dz; but has Fam Hx of intestinal cancer Code(s): D64.9 - ANEMIA, UNSPECIFIED Qualifiers: Anemia type: unspecified type Qualified Code(s): D64.9 - Anemia, unspecified (4) Diabetes mellitus type 2, noninsulin dependent Assessment/Plan: longstanding; will need glucose monitoring; Metformin stopped due to rise in Bun -Creat. Would use insulin coverage for now. Code(s): E11.9 - TYPE 2 DIABETES MELLITUS WITHOUT COMPLICATIONS (5) Hypertensive heart and renal disease Assessment/Plan: Has HF with Low Ej Fx; but has been well compensated while on Entresto; mineral corticoid recpt criselda; Furosemide; all of hich have had to be stopped in view of her rising Bun/Creat PLAN: IVF; hold above meds; Renal & Cardio consults warranted Qualifiers: Heart failure presence: without heart failure Hypertensive chronic kidney disease stage: stage 1-4 or unspecified chronic kidney disease Qualified Code( s): I13.10 - Hypertensive heart and chronic kidney disease without heart failure , with stage 1 through stage 4 chronic kidney disease, or unspecified chronic kidney disease (6) Long-term (current) use of anticoagulants, INR goal 2.0-3.0 Assessment/Plan: Has been on Warfarin for many years, in order to prevent recurrent thrombotic strokes (of which she has had more than 1); no ATF has been documented: PLAN: will need to be held in view of possible up coming surgery but would recommend bridging with Lovenox when INR descends to non therapeutic range, up to day of surgery Code(s): Z79.01 - FDC (CURRENT) USE OF 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 (7) History of CVA (cerebrovascular accident) without residual deficits Assessment/Plan: no gross deficits appreciated inspite of having have at least 2 thrombotic strokes in the past prior to being placed on a/c; 2nd likely hypercoaguable state of uncertain nature but could be aggravated by Hx of Htn; DM, smoking. (8) Acute kidney injury Assessment/Plan: Bun?creat have risen above her usual baseline; like;y 2nd to fluid losses superimposed on CR renal Dz PLAN: daily chemsitries; hold Lasix; entresto, maintain adequate BP; gentle hydration Code(s): N17.9 - ACUTE KIDNEY FAILURE, UNSPECIFIED (9) Breast cancer Assessment/Plan: stable in size; responding to hormonal agent Code(s): C50.919 - MALIGNANT NEOPLASM OF UNSP SITE OF UNSPECIFIED FEMALE BREAST Qualifiers: Estrogen receptor status: positive Laterality: left (10) Depression as late effect of cerebrovascular accident (CVA) Assessment/Plan: responds to use of Buproprion Code(s): I69.398 - OTHER SEQUELAE OF CEREBRAL INFARCTION; F06.31 - MOOD DISORDER DUE TO KNOWN PHYSIOL COND W DEPRESSV FEATURES (11) COPD (chronic obstructive pulmonary disease) Assessment/Plan: non exacerbated; 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 does not require inhalers Code(s): J44.9 - CHRONIC OBSTRUCTIVE PULMONARY DISEASE, UNSPECIFIED Qualifiers: COPD type: unspecified COPD Qualified Code(s): J44.9 - Chronic obstructive pulmonary disease, unspecified (12) Hypercholesterolemia Assessment/Plan: has been on Lipitor 40mg Qd; which she should continue Code(s): E78.00 - PURE HYPERCHOLESTEROLEMIA, UNSPECIFIED (13) Nicotine dependence, cigarettes, uncomplicated Assessment/Plan: adding unfavorably to her current condition Code(s): F17.210 - NICOTINE DEPENDENCE, CIGARETTES, UNCOMPLICATED (14) PAC (premature atrial contraction) Assessment/Plan: noted on EKG; has hx of CHF LV dysf as noted above; this is likely 2nd metabolic disturbance Code(s): I49.1 - ATRIAL PREMATURE DEPOLARIZATION (15) Visual impairment Assessment/Plan: Rt eye blind; and has poor vision from Lt eye, and is a limiting factor for self care Code(s): H54.7 - UNSPECIFIED VISUAL LOSS (16) Elderly person living alone Assessment/Plan: with above established conditions and co morbidities; advise social service eval. Code(s): Z60.2 - PROBLEMS RELATED TO LIVING ALONE Assessment/Plan 68 YO F with multiple co morbidites as outlined above who presents with worsening abd discomfort; worsening loose stools; dehydration (super imposed on CKDz) who has a non healing (possibly infected wound over lying the surgical site and which underlies an abd wall hernia. The PLAN is for her to be transfered to [facility] where she has been accepted by the surgical team (under Dr Soria). It is adviseable to obtain medical consultation, mainly renal; Cardiac to manage the chronic medical problems. It is advised that her a/c is resumed as soon as it is safe to do so. ~~~~~~~~~~~~~~~~~~~~~~~~~~~~~~~~~~~~~~~~~ Dr Caputo (PCP) tel# [phone]
--- NOTE | 2018-12-23 19:56 | PDOC ---
*Physical Exam - Vital Signs Last Vital Signs Temp Pulse Resp BP Pulse Ox 97.4 F L 80 18 105/43 L 97 12/23/18 11:45 12/23/18 18:35 12/23/18 13:00 12/23/18 18:35 12/23/18 18:35 ED Treatment Course - LABORATORY CBC & Chemistry Diagram: 12/23/18 12:14 12/23/18 12:14 - ADDITIONAL ORDERS Additional order review: Laboratory Results 12/23/18 12/23/18 12/23/18 16:06 16:06 12:14 PT with INR 29.00 H INR 2.44 H PTT (Actin FS) 45.1 H Sodium Potassium Chloride Carbon Dioxide Anion Gap BUN Creatinine Est GFR (CKD-EPI)AfAm Est GFR (CKD-EPI)NonAf Random Glucose Lactic Acid 2.6 H* 3.3 H* Calcium Total Bilirubin AST ALT Alkaline Phosphatase Total Protein Albumin Stool Occult Blood 12/23/18 12/23/18 12:14 12:00 PT with INR INR PTT (Actin FS) Sodium 141 Potassium 4.3 Chloride 112 H Carbon Dioxide 16 L Anion Gap 14 BUN 68.1 H Creatinine 4.0 H Est GFR (CKD-EPI)AfAm 12.37 Est GFR (CKD-EPI)NonAf 10.67 Random Glucose 111 H Lactic Acid Calcium 9.1 Total Bilirubin 0.2 AST 8 L ALT 12 L Alkaline Phosphatase 103 Total Protein 6.7 Albumin 3.2 L Stool Occult Blood Positive 12/23/18 12:05 Gram Stain - Final Abdomen 12/23/18 12:14 RBC 2.92 L MCV 98.7 H MCHC 32.7 RDW 15.5 MPV 8.4 Neutrophils % 81.6 Lymphocytes % 9.2 Monocytes % 7.9 Eosinophils % 0.9 Basophils % 0.4 - Medications Given in the ED: ED Medications Discontinued Medications Generic Name Dose Route Start Last Admin Trade Name Freq PRN Reason Stop Dose Admin Piperacillin Sod/Tazobactam 50 mls @ 100 mls/hr 12/23/18 12:34 12/23/18 13:05 Sod 3.375 gm/ Dextrose IVPB 12/23/18 13:03 100 mls/hr ONCE ONE Administration Protocol Sodium Chloride 1,000 ml 12/23/18 12:32 12/23/18 13:05 Normal Saline - IV 12/23/18 12:33 1,000 ml ONCE ONE Administration Vancomycin HCl 1,000 mg 12/23/18 12:33 12/23/18 13:35 Vancomycin (Pre-Docked) IVPB 12/23/18 12:34 1,000 mg ONCE ONE Administration Protocol Medical Decision Making - Medical Decision Making 12/23/18 19:52 pt with abd pain and diarrhea. pt had ct and has had ostomy with reversal in the past. Pt has been seen by dr. villalpando - has arranged transfer to [facility] for a ventral hernia repair. pt has been accepted to [facility] Pt accepted by Dr. Soria consent being obtained pt will be transferred call placed to Dr. Caputo to update him on the plan. Discharge - Discharge Information Problems reviewed: Yes Clinical Impression/Diagnosis: Open wound of abdominal wall, anterior, complicated Qualifiers: Encounter type: sequela Qualified Code(s): S31.109S - Unspecified open wound of abdominal wall, unspecified quadrant without penetration into peritoneal cavity, sequela Condition: Guarded Disposition: TRANSFER ACUTE CARE/OTHER HOSP - Follow up/Referral Referrals: Lukas Caputo MD [Primary Care Provider] - - Patient Discharge Instructions - Post Discharge Activity - Transfer to Acute Care Facility Receiving Facility Name: [facility] [address] Accepting Physician:: Dr. Soria
[2018-12-23 21:32] VITALS: BP 115/49; PULSE 74; TEMP 98.4
[2018-12-23] MEDS ORDERED: buPROPion HCL 75 MG TABLET PO SCH (22:00)
[2018-12-23] MEDS ORDERED: CARVEDILOL 25 MG TABLET (FP) PO SCH (22:00)
[2018-12-23] MEDS ORDERED: SACUBITRIL/VALSARTAN 24 MG-26 MG TABLET PO SCH (22:00)
[2018-12-24] MEDS ORDERED: PIPERACILLIN/TAZOB 2.25 GM 2.25 GM in DEXTROSE 5%-WATER - 50 ML IVPB SCH (02:00)
[2018-12-24] MEDS ORDERED: ANASTROZOLE 1 MG TABLET PO SCH (10:00)
--- NOTE | 2018-12-24 13:30 | EKG ---
Test Reason : Blood Pressure : / mmHG Vent. Rate : 079 BPM Atrial Rate : 079 BPM P-R Int : 192 ms QRS Dur : 100 ms QT Int : 406 ms P-R-T Axes : 097 067 091 degrees QTc Int : 465 ms POOR DATA QUALITY, INTERPRETATION MAY BE ADVERSELY AFFECTED SINUS RHYTHM WITH PREMATURE ATRIAL COMPLEXES NONSPECIFIC ST ABNORMALITY ABNORMAL ECG Confirmed by GIANCARLO HERNANDEZ MD ([id number]) on 12/24/2018 1:30:03 PM Referred By: Confirmed By:GIANCARLO HERNANDEZ MD
== END 2018-12-23 21:33 | disposition short-term general hospital (02) ==
LOC: JER 11:01
DX: T81.32XD Disruption of internal operation (surgical) wound, not elsewhere classified, subsequent encounter (principal); K43.2 Incisional hernia without obstruction or gangrene; T81.83XD Persistent postprocedural fistula, subsequent encounter; I25.10 Atherosclerotic heart disease of native coronary artery without angina pectoris; I13.0 Hypertensive heart and chronic kidney disease with heart failure and stage 1 through stage 4 chronic kidney disease, or unspecified chronic kidney disease; N18.9 Chronic kidney disease, unspecified; N17.9 Acute kidney failure, unspecified; I50.89 Other heart failure; F17.210 Nicotine dependence, cigarettes, uncomplicated; E78.00 Pure hypercholesterolemia, unspecified; E11.22 Type 2 diabetes mellitus with diabetic chronic kidney disease; Z79.84 Long term (current) use of oral hypoglycemic drugs; C50.919 Malignant neoplasm of unspecified site of unspecified female breast; I69.398 Other sequelae of cerebral infarction; F06.31 Mood disorder due to known physiological condition with depressive features; Z79.01 Long term (current) use of anticoagulants; D64.9 Anemia, unspecified; D51.9 Vitamin B12 deficiency anemia, unspecified; I49.1 Atrial premature depolarization; H54.7 Unspecified visual loss; Z60.2 Problems related to living alone; E86.0 Dehydration; E43 Unspecified severe protein-calorie malnutrition; J44.1 Chronic obstructive pulmonary disease with (acute) exacerbation
CPT/HCPCS: 36415; 71045-TC-FY; 74176-TC; 80053; 82272; 83605; 85025; 85610; 85730; 87040; 87045; 87046; 87070; 87077; 87186; 87205; 93005; 93010; 99285-25

== ENCOUNTER 2019-09-27 12:51 | Inpatient (IN) | payer OTHER ==
--- NOTE | 2019-09-27 13:18 | PDOC ---
History of Present Illness - General Stated Complaint: BLOOD PRESSURE PROBLEM - History of Present Illness Initial Comments: 68 yo female with PMH of anemia, CHF, COPD, DM, Breast Ca, basal cell carcinoma, stroke brought in by EMS from his primary care due to hypotension. She was measured in her PCP of having a BP of 80/40 which gradually improved to 90/50 in the EMS without fluids. She endorses a 3 day history of lightheadedness and ataxia with 1 episode of dark brown vomiting this morning. She has not eaten today. She denies fevers, chills, rhinorrhea, cough, sob, cp, dysuria, hematuria, bloody stool, diarrhea. Past History - Medical History Allergies/Adverse Reactions: Allergies Allergy/AdvReac Type Severity Reaction Status Date / Time No Known Allergies Allergy Verified 07/14/19 10:32 Home Medications: Ambulatory Orders Atorvastatin Calcium 40 mg PO HS 01/17/17 Bupropion HCl [Wellbutrin -] 75 mg PO BID 01/17/17 Anastrozole [Arimidex -] 1 mg PO DAILY tablet 02/04/18 Furosemide [Lasix] 80 mg PO DAILY #30 tablet 02/04/18 Carvedilol [Coreg -] 25 mg PO BID 12/23/18 Acetaminophen [Pain Relief] 650 mg PO Q6H PRN 06/23/19 Ascorbic Acid [Vitamin C] 500 mg PO DAILY 06/23/19 Docusate Sodium [Colace] 100 mg PO Q8H 06/23/19 Multivitamin with Iron [Multivitamins with Iron] 1 each PO DAILY 06/23/19 Nystatin 1 each MC BID 06/23/19 Sennosides [Senna] 17.2 mg PO HS 06/23/19 Albuterol Sulfate Inhaler - [Ventolin HFA Inhaler -] 2 inh PO Q6H 07/14/19 Ciclopirox/Urea/Camph/Men/Euc [Ciclopirox 8% Treatment Kit] 34.6 ml TP BID 07/14/19 Melatonin 5 mg PO HS 07/14/19 Polyethylene Glycol 3350 [Miralax 119 gm Btl -] 17 gm PO DAILY #0 bottle 07/27/19 Sacubitril/Valsartan [Entresto 49 mg-51 mg Tablet] 1 tab PO BID tablet 07/27/19 Warfarin Na [Coumadin -] 5 mg PO DAILY@1800 tablet 07/27/19 Zolpidem Tartrate [Ambien] 5 mg PO HS PRN tablet 07/27/19 metFORMIN XR [Glucophage Xr -] 500 mg PO DAILY@0700 #30 tab.sr.24h 07/27/19 Anemia: Yes Asthma: No Cancer: Yes (BASAL 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,lips,arms & back,Left Breast) Cardiac Disorders: Yes (CHF,COPD) CVA: Yes (10/25/2012 no residual on Coumadin) COPD: Yes (O2 dependent) CHF: Yes DVT: No Dementia: No Diabetes: Yes GI Disorders: Yes (perforated sigmoid colon with Colostiomy now reversed) Disorders: No HTN: Yes Hypercholesterolemia: Yes Liver Disease: No Seizures: No Thyroid Disease: No - Surgical History Abdominal Surgery: Yes (reveral of colostomy) Appendectomy: No Cardiac Surgery: No Cholecystectomy: No Lung Surgery: No Neurologic Surgery: No Orthopedic Surgery: No - Immunization History Immunization Up to Date: Yes - Psycho-Social/Smoking History Smoking Status: Yes Smoking History: Former smoker Have you smoked in the past 12 months: No Number of Cigarettes Smoked Daily: 16 If you are a former smoker, when did you quit?: April 'Breaking Loose' booklet given: 01/09/17 Review of Systems - Review of Systems Able to Perform ROS?: Yes Constitutional: No: Chills, Diaphoresis, Fever HEENTM: No: Recent change in vision, Double Vision Respiratory: No: Cough, Shortness of Breath Cardiac (ROS): No: Chest Pain, Edema, Irregular Heart Rate ABD/GI: Yes: Nausea, Vomiting. No: Abdominal Distended, Diarrhea, Poor Appetite : No: Burning, Dysuria, Discharge, Flank Pain, Hematuria, Pain, Urgency Musculoskeletal: No: Joint Pain, Muscle Pain, Muscle Weakness Integumentary: Yes: Lesions (basal cell carcinoma on left leg). No: Flushing, Pallor, Rash Neurological: Yes: Ataxia, Other (light headedness). No: Headache, Numbness, Seizure, Tremors, Dizziness Psychiatric: No: Anxiety, Depression, Mood Swings Endocrine: No: Intolerance to Cold, Intolerance to Heat *Physical Exam - Physical Exam General Appearance: Yes: Appropriately Dressed. No: Apparent Distress HEENT: positive: EOMI, SAMARIA, Normal Voice, Other (blindness in right eye) Neck: negative: Tender, Rigid Respiratory/Chest: positive: Normal Breath Sounds, Respiratory Distress, Other (crackles in right lower lung). negative: Chest Tender, Lungs Clear Cardiovascular: positive: Regular Rhythm, Regular Rate, S1, S2 Gastrointestinal/Abdominal: positive: Flat, Soft. negative: Tender Extremity: positive: Normal Capillary Refill, Normal Range of Motion, Other (2 cm circular ulcer (BCC)). 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 She was found to be anemic at 8.9 (baseline ~8). Her INR is subtherapeutic at 1.88. Her creatinine is elevated at 2.1 (baseline ~1.8). Troponin is negative. CT head is ordered to rule out malignancy. The hypotensive is most likely due to dehydration. She was given 250mL fluids and Mylanta. Called Dr. Caputo for admission to observation. Discharge - Discharge Information Problems reviewed: Yes Clinical Impression/Diagnosis: Hypotension Condition: Stable - Admission Yes - Follow up/Referral - Patient Discharge Instructions - Post Discharge Activity
--- NOTE | 2019-09-27 13:30 | PDOC ---
Attending Attestation - Resident Resident Name: Bassem Collins - ED Attending Attestation I have performed the following: I have examined & evaluated the patient, The case was reviewed & discussed with the resident, I agree w/resident's findings & plan, Exceptions are as noted - HPI HPI: 09/27/19 13:27 68y F hx of Rt pleural effusion, ashd, chf, copd, anemia, basal cell sp biopsy that cultured + for bacteria on levaquin and keflex brought in to the ED for evluation of presents for hypotension. Pt endorses eeling dizzy/lightheaded with mild sob for several days. She went to a routine visit with her PMD and they noticed her bp was low so swent her to the ED for evaluation. She denies any other associated symptoms including any fevers, chills, nausea, vomiting, diaphoresis, chest pain, shortness of breath, palpitations, back pain, neck pain, abdominal pain, diarrhea, melena, dysuria. Patient has not had any medication changes recently beside the addition of the antibiotics. Patient states that she feels fine when she is at rest she only feels lightheaded when she stands up and is walking around. No associated vision changes, numbness, tingling, weakness - Physicial Exam PE: 09/27/19 13:48 GENERAL: The patient is awake, alert, and fully oriented, Nontoxic - in no acute distress. HEAD: Normocephalic, atraumatic. EYES: extraocular movements intact, cateract of R eye ENT: Normal voice, Moist mucous membranes. NECK: Normal range of motion, supple LUNGS: rales at R base, no acute respiratory distress. HEART: Regular rate and rhythm, normal S1 and S2 without murmur, rub or gallop. ABDOMEN: Soft, nontender, No guarding, no rebound. No CVA tenderness EXTREMITIES: Normal range of motion, Trace edema, approximately 1.5 x 1.5 cm wound on the medial aspect of the left calf without any surrounding erythema, discharge, induration, fluctuance. NEUROLOGICAL: No facial assymetry, Normal speech, PSYCH: Normal mood, normal affect. SKIN: Warm, Dry, normal turgor, - Medical Decision Making 09/27/19 13:51 unclera reason for hypotension - may explain her sensation of feleing lighteaded/sob vs presyncope, arrhtmia will obtain blood work, cultures, cxr, ua will give gentle fluids wound does not appear infected 09/27/19 15:53 Patient's blood work was reviewed Anemia seems to be at baseline. renal function seems slightly worse than usual will admit for further management Heart Score/ECG Review - ECG Impressions Comment:: 09/27/19 17:52 Twelve-lead EKG was performed and reviewed by me. There is normal sinus rhythm with a normal rate. Rate of 71 The axis is normal. The intervals are normal. There is normal R wave progression Nonspecific T wave changes Discharge - Discharge Information Problems reviewed: Yes Clinical Impression/Diagnosis: Pre-syncope Hypotension Qualifiers: Hypotension type: hypotension due to hypovolemia Qualified Code(s): I95.89 - Other hypotension Condition: Stable - Follow up/Referral - Patient Discharge Instructions - Post Discharge Activity
[2019-09-27] MEDS ORDERED: SODIUM CHLORIDE 250 ML IV STA ×2 (13:43→14:37)
[2019-09-27 14:26] LABS: HEMATOCRIT 27.4 % (32.4-45.2); HEMOGLOBIN 8.9 GM/dL (10.7-15.3); MCH 31.6 pg (25.7-33.7); MCHC 32.4 g/dl (32.0-36.0); MEAN CELL VOLUME 97.6 fl (80-96); MEAN PLT VOLUME 7.5 fl (7.5-11.1); PLATELET COUNT 256 K/MM3 (134-434); RBC 2.81 M/mm3 (3.60-5.2); WHITE BLOOD COUNT 9.1 K/mm3 (4.0-10.0)
[2019-09-27 14:32] LABS: URINE APPEARANCE CLEAR; URINE BILIRUBIN NEGATIVE (NEGATIVE); URINE COLOR YELLOW; URINE GLUCOSE (UA) NEGATIVE (NEGATIVE); URINE KETONE NEGATIVE (NEGATIVE); URINE LEUK ESTERASE NEGATIVE (NEGATIVE); URINE NITRITE NEGATIVE (NEGATIVE); URINE PROTEIN NEGATIVE (NEGATIVE); URINE UROBILINOGEN 0.2 mg/dL (0.2-1.0)
[2019-09-27 14:48] LABS: ACTIVATED PTT 39.5 SECONDS (25.2-36.5)
[2019-09-27 14:57] LABS: INR 1.88 (0.83-1.09); PROTHROMBIN TIME (PATIENT) 22.3 SEC (9.7-13.0)
[2019-09-27 15:01] LABS: ALBUMIN 3.1 g/dl (3.4-5.0); ALK PHOS 84 U/L (45-117); ANION GAP 11 MMOL/L (8-16); BILIRUBIN,TOTAL 0.2 mg/dL (0.2-1); BLOOD UREA NITROGEN 51.2 mg/dL (7-18); CALCIUM 8.7 mg/dL (8.5-10.1); CHLORIDE 112 mmol/L (98-107); CO2 20 mmol/L (21-32); CREATININE 2.1 mg/dL (0.55-1.3); GLUCOSE,RANDOM 99 mg/dL (74-106); POTASSIUM 4.2 mmol/L (3.5-5.1); SGOT/AST 11 U/L (15-37); SGPT/ALT 9 U/L (13-61); SODIUM 143 mmol/L (136-145); TOT PROT 6.6 g/dl (6.4-8.2)
[2019-09-27] MEDS ORDERED: MAG HYDROX/AL HYDROX/SIMETH 30 ML UNIT-DOSE CUP ONE (15:12)
[2019-09-27] MEDS ORDERED: SODIUM CHLORIDE 0.45% 1,000 ML IV SCH (17:30)
[2019-09-27] MEDS ORDERED: WARFARIN NA 5 MG TABLET ONE (17:34)
[2019-09-27] MEDS: WARFARIN NA 5 MG TABLET PO SCH (17:37)
[2019-09-27] MEDS ORDERED: buPROPion HCL 100 MG TABLET ONE (18:35)
[2019-09-27] MEDS: buPROPion HCL 75 MG TABLET PO SCH (20:14)
[2019-09-27] MEDS: MELATONIN 5 MG TABLETS PO PRN (23:30)
[2019-09-27] MEDS: ACETAMINOPHEN 325 MG TABLET (FP) PO PRN (23:45)
[2019-09-28] MEDS: INSULIN SLIDING SCALE (NOVOLOG) 1 VIAL SQ SCH ×2 (06:34→16:25)
[2019-09-28] MEDS: buPROPion HCL 75 MG TABLET PO SCH ×2 (06:37→17:07)
[2019-09-28] MEDS: ACETAMINOPHEN 325 MG TABLET (FP) PO PRN ×2 (06:37→20:25)
[2019-09-28 06:57] LABS: HEMATOCRIT 24.7 % (32.4-45.2); HEMOGLOBIN 8.1 GM/dL (10.7-15.3); MCH 31.8 pg (25.7-33.7); MCHC 32.6 g/dl (32.0-36.0); MEAN CELL VOLUME 97.5 fl (80-96); MEAN PLT VOLUME 7.6 fl (7.5-11.1); PLATELET COUNT 231 K/MM3 (134-434); RBC 2.54 M/mm3 (3.60-5.2); RDW 16.2 % (11.6-15.6); WHITE BLOOD COUNT 6.6 K/mm3 (4.0-10.0)
[2019-09-28 07:05] LABS: INR 1.94 (0.83-1.09); PROTHROMBIN TIME (PATIENT) 23.1 SEC (9.7-13.0)
[2019-09-28 07:35] LABS: BLOOD UREA NITROGEN 50.3 mg/dL (7-18); CALCIUM 7.9 mg/dL (8.5-10.1); CREATININE 1.9 mg/dL (0.55-1.3); POTASSIUM 4.1 mmol/L (3.5-5.1)
--- NOTE | 2019-09-28 09:20 | EKG ---
Test Reason : Blood Pressure : / mmHG Vent. Rate : 071 BPM Atrial Rate : 071 BPM P-R Int : 170 ms QRS Dur : 102 ms QT Int : 442 ms P-R-T Axes : 070 051 074 degrees QTc Int : 480 ms POOR DATA QUALITY, INTERPRETATION MAY BE ADVERSELY AFFECTED NORMAL SINUS RHYTHM NONSPECIFIC ST AND T WAVE ABNORMALITY ABNORMAL ECG WHEN COMPARED WITH ECG OF 20-JUL-2019 11:15, NONSPECIFIC T WAVE ABNORMALITY NOW EVIDENT IN INFERIOR LEADS Confirmed by MD HOLLI, NILTON ([id number]) on 09/28/2019 9:20:19 AM Referred By: Confirmed By:NILTON DE LA GARZA MD
[2019-09-28] MEDS ORDERED: PT OWN MED DRAWER 7, Y5N ONE ×5 (09:21→23:18)
[2019-09-28] MEDS: ANASTROZOLE 1 MG TABLET PO SCH (11:01)
[2019-09-28] MEDS ORDERED: SODIUM CHLORIDE 0.45% 1,000 ML IV SCH (11:52)
[2019-09-28] MEDS: SODIUM CHLORIDE 0.45% 1,000 ML IV SCH (12:01)
--- NOTE | 2019-09-28 16:06 | HP ---
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 Her BP was 90/50 sitting and 80/40 standing. She was not able to ambulate w/o assist. She was sent to the ER via EMS who found her BP to be low as well. In the ER, her chemistry showed her to be dehydrated, and she was given IVF with improvement of her BP. She feels less dizzy today. She denies CP; SOB, and she ate well. Prior to admission, she denied any abd pains, n-v, or diarrhea. She began to feel weak several days ago. 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: CVA (no residual in 2012, has been on coumadin,) Cardiovascular: Yes: CHF (systolic), HTN (concern for L renal artery stenosis), Hyperlipdemia Pulmonary: Yes: COPD Gastrointestinal: Yes: GERD Renal/: Yes: Other (L renal artery stenosis) Heme/Onc: Yes: Anemia, Other (BCA) Infectious Disease: Yes: C-Diff Psych: Yes: Depression Musculoskeletal: Yes: Osteoarthritis ENT: Yes: Other (visually impaired) Endocrine: Yes: Diabetes Mellitus (NIDDM) Dermatology: Yes: Basal Cell (multiple sites removed) - Past Surgical History Past Surgical History: Yes: Breast Biopsy (2005 and 06/16), Cataract Removal (bilateral), Colectomy (sigmoidectomy with colostomy (Dwaine's) for perforated sigmoid), Colostomy (reversed in 2017, had colon rupture in 2016, surgery with the colostomy,). No: Colonoscopy (never had) - Advance Directives Advance Directives: Yes: Health Care Proxy - Smoking History Smoking history: Former smoker Have you smoked in the past 12 months: No Aproximately how many cigarettes per day: 20 If you are a former smoker, when did you quit?: 09/23/2019 - Alcohol/Substance Use Hx Alcohol Use: No History of Substance Use: reports: None - Social History Usual Living Arrangement: Yes: Alone ADL: Family Assistance History of Recent Travel: No Home Medications - Allergies Allergies/Adverse Reactions: Allergies Allergy/AdvReac Type Severity Reaction Status Date / Time No Known Allergies Allergy Verified 07/14/19 10:32 - Home Medications Home Medications: Ambulatory Orders Atorvastatin Calcium 40 mg PO HS 01/17/17 Bupropion HCl [Wellbutrin -] 75 mg PO BID 01/17/17 Anastrozole [Arimidex -] 1 mg PO DAILY tablet 02/04/18 Furosemide [Lasix] 80 mg PO DAILY #30 tablet 02/04/18 Carvedilol [Coreg -] 25 mg PO BID 12/23/18 Acetaminophen [Pain Relief] 650 mg PO Q6H PRN 06/23/19 Multivitamin with Iron [Multivitamins with Iron] 1 each PO DAILY 06/23/19 Melatonin 5 mg PO HS 07/14/19 Sacubitril/Valsartan [Entresto 49 mg-51 mg Tablet] 1 tab PO BID tablet 07/27/19 Warfarin Na [Coumadin -] 5 mg PO DAILY@1800 tablet 07/27/19 metFORMIN XR [Glucophage Xr -] 500 mg PO DAILY@0700 #30 tab.sr.24h 07/27/19 Family Medical History Family History: Unremarkable Review of Systems - Review of Systems Constitutional: reports: Weakness Eyes: reports: Other (legally blind (no vision Rt eye); limited vision on Lt) HENT: reports: No Symptoms Neck: reports: No Symptoms Cardiovascular: reports: No Symptoms Respiratory: reports: No Symptoms Gastrointestinal: reports: No Symptoms Genitourinary: reports: No Symptoms Breasts: reports: No Symptoms Reported Musculoskeletal: reports: No Symptoms Integumentary: reports: Wound (LLE s/p Bx of BC malignancy) Neurological: reports: Unsteady Gait Endocrine: reports: No Symptoms Hematology/Lymphatic: reports: No Symptoms Psychiatric: reports: No Symptoms Physical Examination Vital Signs: Vital Signs Temperature 98.0 F 09/28/19 13:49 Pulse Rate 70 09/28/19 13:49 Respiratory Rate 18 09/28/19 13:49 Blood Pressure 126/74 09/28/19 13:49 O2 Sat by Pulse Oximetry (%) 100 09/28/19 13:49 Constitutional: Yes: Well Nourished, No Distress, Calm Eyes: Yes: Other (Lt eye NL appearing; Rt globe abNL; cornea hazy) HENT: Yes: WNL Neck: Yes: WNL Cardiovascular: Yes: Regular Rate and Rhythm Respiratory: Yes: WNL Gastrointestinal: Yes: Normal Bowel Sounds, Soft ...Rectal Exam: Yes: Deferred Renal/: Yes: WNL Breast(s): Yes: Left (Palpable lesion of about 1 cm (not new)) Musculoskeletal: Yes: WNL Extremities: Yes: Other (eschars on various areas where skin lesions ablated clean 1 cm lesion on LLE) Edema: No Peripheral Pulses WNL: Yes Integumentary: Yes: Other (see above) Wound/Incision: Yes: Clean/Dry Neurological: Yes: WNL ...Motor Strength: WNL Psychiatric: Yes: WNL Labs: CBC, BMP 09/28/19 05:44 09/28/19 05:44 CBCD WBC 6.6 K/mm3 (4.0-10.0) 09/28/19 05:44 RBC 2.54 M/mm3 (3.60-5.2) L 09/28/19 05:44 Hgb 8.1 GM/dL (10.7-15.3) L 09/28/19 05:44 Hct 24.7 % (32.4-45.2) L 09/28/19 05:44 MCV 97.5 fl (80-96) H 09/28/19 05:44 MCHC 32.6 g/dl (32.0-36.0) 09/28/19 05:44 RDW 16.2 % (11.6-15.6) H 09/28/19 05:44 Plt Count 231 K/MM3 (134-434) 09/28/19 05:44 MPV 7.6 fl (7.5-11.1) 09/28/19 05:44 CMP Sodium 142 mmol/L (136-145) 09/28/19 05:44 Potassium 4.1 mmol/L (3.5-5.1) 09/28/19 05:44 Chloride 113 mmol/L (98-107) H 09/28/19 05:44 Carbon Dioxide 20 mmol/L (21-32) L 09/28/19 05:44 Anion Gap 9 MMOL/L (8-16) 09/28/19 05:44 BUN 50.3 mg/dL (7-18) H 09/28/19 05:44 Creatinine 1.9 mg/dL (0.55-1.3) H 09/28/19 05:44 Random Glucose 101 mg/dL (74-106) 09/28/19 05:44 Calcium 7.9 mg/dL (8.5-10.1) L 09/28/19 05:44 Total Bilirubin 0.2 mg/dL (0.2-1) 09/27/19 13:50 AST 11 U/L (15-37) L 09/27/19 13:50 ALT 9 U/L (13-61) L 09/27/19 13:50 Alkaline Phosphatase 84 U/L (45-117) 09/27/19 13:50 Total Protein 6.6 g/dl (6.4-8.2) 09/27/19 13:50 Albumin 3.1 g/dl (3.4-5.0) L 09/27/19 13:50 CARDIAC ENZYMES Creatine Kinase 32 U/L (26-192) 09/27/19 13:50 Troponin I < 0.02 ng/ml (0.00-0.05) 09/27/19 13:50 Urine Test Results Urine Color Yellow 09/27/19 13:50 Urine Appearance Clear 09/27/19 13:50 Urine pH 5.0 (5.0-8.0) 09/27/19 13:50 Ur Specific [place] 1.009 (1.010-1.035) L 09/27/19 13:50 Urine Protein Negative (NEGATIVE) 09/27/19 13:50 Urine Glucose (UA) Negative (NEGATIVE) 09/27/19 13:50 Urine Ketones Negative (NEGATIVE) 09/27/19 13:50 Urine Blood Negative (NEGATIVE) 09/27/19 13:50 Urine Nitrite Negative (NEGATIVE) 09/27/19 13:50 Urine Bilirubin Negative (NEGATIVE) 09/27/19 13:50 Ur Leukocyte Esterase Negative (NEGATIVE) 09/27/19 13:50 Imaging - Results Chest X-ray: Report Reviewed Cat Scan: Report Reviewed Problem List - Problems (1) Hypotension Assessment/Plan: combination of diuresis and poor PO intake PLAN: stop Lasix and hold BP meds until rehydrated Code(s): I95.9 - HYPOTENSION, UNSPECIFIED Qualifiers: Hypotension type: hypotension due to hypovolemia Qualified Code(s): I95.89 - Other hypotension; E86.1 - Hypovolemia (2) Dehydration Assessment/Plan: as shown by high BUN/Cr; above baseline PLAN: hold diurteics; rehydrate; follow chemistry Code(s): E86.0 - DEHYDRATION (3) Anemia Assessment/Plan: chronic; Hgb usually above 8; previous stool studies were negative for OB; and does not wish to have Colonoscopy or BM Biopsy. She was less anemic prior to her Ventral hernia repair surgery back in April of this year, but seemingly never regained her baseline post-OP. She experienced a similar effect when she had Colon surgery (Placement of diverting colostomy and reversal). PLAN: follow CBC; check stools for OB Code(s): D64.9 - ANEMIA, UNSPECIFIED Qualifiers: Anemia type: other cause Other causes of anemia: other cause, not classified Qualified Code(s): D64.89 - Other specified anemias (4) Anticoagulant long-term use Assessment/Plan: for embolic CVAs she last had in 2014; has been free of TIA since on a/c; will continue Code(s): Z79.01 - HALF-WAY (CURRENT) USE OF 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 (5) Breast cancer, left Assessment/Plan: stable disease; on anastrazole Code(s): C50.912 - MALIGNANT NEOPLASM OF UNSPECIFIED SITE OF LEFT FEMALE BREAST Qualifiers: Breast location: unspecified site of breast Estrogen receptor status: unspecified Patient sex: female Qualified Code(s): C50.912 - Malignant neoplasm of unspecified site of left female breast (6) COPD (chronic obstructive pulmonary disease) Assessment/Plan: chronic stable; 2nd tobacco use; has never needed inhalers Code(s): J44.9 - CHRONIC OBSTRUCTIVE PULMONARY DISEASE, UNSPECIFIED Qualifiers: COPD type: unspecified COPD Qualified Code(s): J44.9 - Chronic obstructive pulmonary disease, unspecified (7) CHF (congestive heart failure) Assessment/Plan: low EJ Fx heart failure; now stable and seems to be compensated PLAN: Cont COREG; but hold entresto & diuresis Code(s): I50.9 - HEART FAILURE, UNSPECIFIED Qualifiers: Heart failure type: systolic Heart failure chronicity: chronic Qualified Code(s): I50.22 - Chronic systolic (congestive) heart failure (8) Depression Assessment/Plan: stable; on Buproprion Code(s): F32.9 - MAJOR DEPRESSIVE DISORDER, SINGLE EPISODE, UNSPECIFIED Qualifiers: Depression Type: major depressive disorder Major depression episode severity: unspecified (9) Diabetes mellitus type 2, noninsulin dependent Assessment/Plan: A1c 6.7; Metformin now on hold; will check BGMs Code(s): E11.9 - TYPE 2 DIABETES MELLITUS WITHOUT COMPLICATIONS (10) History of CVA (cerebrovascular accident) without residual deficits Assessment/Plan: stable; on a/c prophylaxis (11) Visual impairment Assessment/Plan: not new Code(s): H54.7 - UNSPECIFIED VISUAL LOSS (12) Infected wound Assessment/Plan: distal LLE where she previously had a non healing wound; Cultures (taken by Dermatology) reveal the presence of MSSA and resistent E. Coli for which she has been on Levaquin and Keflex at home. PLAN: cont Abs Code(s): T14.8XXA - OTHER INJURY OF UNSPECIFIED BODY REGION, INITIAL ENCOUNTER; L08.9 - LOCAL INFECTION OF THE SKIN AND SUBCUTANEOUS TISSUE, UNSP (13) Skin neoplasm malignant Assessment/Plan: has had recurrent lesions that tend to be Basal cell ca; s/p recent BX of the LLE (for which she may need Moh's procedure). Code(s): C44.90 - UNSPECIFIED MALIGNANT NEOPLASM OF SKIN, UNSPECIFIED (14) Elderly person living alone Assessment/Plan: not a new development; prior efforts to call for in-home (home care) assistence were denied by her insurance Code(s): Z60.2 - PROBLEMS RELATED TO LIVING ALONE Assessment/Plan dehydrated and hypotensive Female with multiple co morbidities; now undergoing rehydration. Mgmt as outlined above. ~~~~~~~~~~~~~~~~~~~~~~~~~~~~~~~ dr Caputo
[2019-09-28] MEDS: CEPHALEXIN MONOHYDRATE 250 MG CAPSULE (FP) PO SCH ×2 (17:07→23:26)
[2019-09-28] MEDS: WARFARIN NA 5 MG TABLET PO SCH (17:07)
[2019-09-28] MEDS ORDERED: traMADol HCL 50 MG TABLET PO ONE (21:26)
[2019-09-28] MEDS: ATORVASTATIN CA 10 MG TABLET (FP) PO SCH (21:51)
[2019-09-28] MEDS: CARVEDILOL 3.125 MG TABLET (FP) PO SCH (21:51)
[2019-09-29] MEDS ORDERED: PT OWN MED DRAWER 7, Y5N ONE ×4 (06:17→17:44)
[2019-09-29] MEDS: INSULIN SLIDING SCALE (NOVOLOG) 1 VIAL SQ SCH ×2 (06:20→17:37)
[2019-09-29] MEDS: buPROPion HCL 75 MG TABLET PO SCH ×2 (06:25→18:06)
[2019-09-29] MEDS: CEPHALEXIN MONOHYDRATE 250 MG CAPSULE (FP) PO SCH ×3 (06:25→18:05)
[2019-09-29 08:13] LABS: INR 2.02 (0.83-1.09)
[2019-09-29 08:19] LABS: HEMATOCRIT 24.5 % (32.4-45.2); MCH 31.9 pg (25.7-33.7); MCHC 32.7 g/dl (32.0-36.0); MEAN CELL VOLUME 97.6 fl (80-96); MEAN PLT VOLUME 7.7 fl (7.5-11.1); PLATELET COUNT 208 K/MM3 (134-434); RBC 2.51 M/mm3 (3.60-5.2); WHITE BLOOD COUNT 6.5 K/mm3 (4.0-10.0)
[2019-09-29 08:25] LABS: BLOOD UREA NITROGEN 44.5 mg/dL (7-18); CALCIUM 8.3 mg/dL (8.5-10.1); CREATININE 1.5 mg/dL (0.55-1.3); MAGNESIUM 1.9 mg/dL (1.8-2.4); POTASSIUM 4.1 mmol/L (3.5-5.1)
--- NOTE | 2019-09-29 09:23 | PN ---
Progress Note, Physician - Current Medication List Current Medications: Active Medications Acetaminophen (Tylenol -) 650 mg PO Q6H PRN PRN Reason: PAIN LEVEL 3-10 Last Admin: 09/28/19 20:25 Dose: 650 mg Documented by: Anastrozole (Arimidex -) 1 mg PO DAILY [facility] Last Admin: 09/28/19 11:01 Dose: 1 mg Documented by: Atorvastatin Calcium (Lipitor -) 10 mg PO HS [facility] Last Admin: 09/28/19 21:51 Dose: 10 mg Documented by: Bupropion HCl (Wellbutrin -) 75 mg PO Q12H [facility] Last Admin: 09/29/19 06:25 Dose: 75 mg Documented by: Carvedilol (Coreg -) 3.125 mg PO BID [facility] Last Admin: 09/28/19 21:51 Dose: 3.125 mg Documented by: Cephalexin HCl (Keflex -) 250 mg PO Q6HPO [facility] Last Admin: 09/29/19 06:25 Dose: 250 mg Documented by: Sodium Chloride (1/2 Normal Saline) 1,000 mls @ 125 mls/hr IV ASDIR [facility] Last Admin: 09/28/19 12:01 Dose: 125 mls/hr Documented by: Insulin Aspart (Novolog Vial Sliding Scale -) 1 vial SQ BIDAC [facility]; Protocol Last Admin: 09/29/19 06:20 Dose: Not Given Documented by: Levofloxacin (Levaquin -) 250 mg PO DAILY@0600 [facility] Last Admin: 09/29/19 06:21 Dose: 250 mg Documented by: Melatonin (Melatonin) 5 mg PO HS PRN PRN Reason: INSOMNIA Last Admin: 09/27/19 23:30 Dose: 5 mg Documented by: Metformin HCl (Glucophage Xr -) 500 mg PO DAILY@0700 [facility] Last Admin: 09/29/19 06:21 Dose: 500 mg Documented by: Tramadol HCl (Ultram -) 50 mg PO Q6H PRN PRN Reason: PAIN LEVEL 4 - 6 Warfarin Sodium (Coumadin -) 5 mg PO DAILY@1800 [facility] Last Admin: 09/28/19 17:07 Dose: 5 mg Documented by: - Objective Vital Signs: Vital Signs Temperature 97.6 F 09/29/19 06:00 Pulse Rate 73 09/29/19 06:00 Respiratory Rate 18 09/29/19 06:00 Blood Pressure 137/52 L 09/29/19 06:00 O2 Sat by Pulse Oximetry (%) 100 09/29/19 06:00 Labs: CBC, BMP 09/29/19 06:14 09/29/19 06:14 INR, PTT INR 2.02 (0.83-1.09) H 09/29/19 06:14 Assessment/Plan 12/24/2016 Echo: Normal LV size with moderate decreased LV fxn, mild pericardial effusion, mild ASHLEY, mod MR, mild [place], TR 01/28/2018 Echo: Normal LV size with severely decreased LV fxn EF 30-35%, normal RV size and fxn, mod LAE, mod MR 1. Acute on chronic LV systolic failure improving 2. History of CVA with left MCA thrombus and therapeutic INR 3. History of perforated sigmoid colon s/p sigmoidectomy and reversed colostomy 4. COPD with Chronic Hypoxic Respiratory Failure and long smoking history 5. HTN 6. Hypercholesterolemia 7. Anemia 8. Type 2 DM 9. Renal artery stenosis 10. PVC PLAN: 1. Change to oral diuresis (Lasix 20 qd and Aldactone 25 qd) with monitor renal function and electrolytes. 2. Continue Carvedilol 12.5 mg BID, Lipitor 20 mg QHS and Entresto 24/26 mg BID with uptitration as tolerated 3. Continue Warfarin as per INR 4. O2 to keep SpO2 >90% and inhaled bronchodilators as needed 5. Transfuse to maintain Hgb>8.0 6. Further cardiac evaluation to follow including possible nuclear MPI +/- cardiac catheterization/coronary angiography, but probably could be arranged as outpatient. LVEF needs to be followed with optimal medical therapy and if LVEF remains below 35%, she may need ICD as primary prophylaxis. 7. Encourage ambulation and d/c planning Acetaminophen (Tylenol -) 650 mg PO Q6H PRN PRN Reason: PAIN LEVEL 3-10 Last Admin: 09/28/19 20:25 Dose: 650 mg Documented by: Anastrozole (Arimidex -) 1 mg PO DAILY [facility] Last Admin: 09/28/19 11:01 Dose: 1 mg Documented by: Atorvastatin Calcium (Lipitor -) 10 mg PO HS [facility] Last Admin: 09/28/19 21:51 Dose: 10 mg Documented by: Bupropion HCl (Wellbutrin -) 75 mg PO Q12H [facility] Last Admin: 09/29/19 06:25 Dose: 75 mg Documented by: Carvedilol (Coreg -) 3.125 mg PO BID [facility] Last Admin: 09/28/19 21:51 Dose: 3.125 mg Documented by: Cephalexin HCl (Keflex -) 250 mg PO Q6HPO [facility] Last Admin: 09/29/19 06:25 Dose: 250 mg Documented by: Sodium Chloride (1/2 Normal Saline) 1,000 mls @ 125 mls/hr IV ASDIR [facility] Last Admin: 09/28/19 12:01 Dose: 125 mls/hr Documented by: Insulin Aspart (Novolog Vial Sliding Scale -) 1 vial SQ BIDAC [facility]; Protocol Last Admin: 09/29/19 06:20 Dose: Not Given Documented by: Levofloxacin (Levaquin -) 250 mg PO DAILY@0600 [facility] Last Admin: 09/29/19 06:21 Dose: 250 mg Documented by: Melatonin (Melatonin) 5 mg PO HS PRN PRN Reason: INSOMNIA Last Admin: 09/27/19 23:30 Dose: 5 mg Documented by: Metformin HCl (Glucophage Xr -) 500 mg PO DAILY@0700 [facility] Last Admin: 09/29/19 06:21 Dose: 500 mg Documented by: Tramadol HCl (Ultram -) 50 mg PO Q6H PRN PRN Reason: PAIN LEVEL 4 - 6 Warfarin Sodium (Coumadin -) 5 mg PO DAILY@1800 [facility] Last Admin: 09/28/19 17:07 Dose: 5 mg Documented by:
--- NOTE | 2019-09-29 09:24 | CON.CARD ---
Consult Consult Specialty:: Cardiology Referred by:: Dr. 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 Her BP was 90/50 sitting and 80/40 standing. She was not able to ambulate w/o assist. She was sent to the ER via EMS who found her BP to be low as well. In the ER, her chemistry showed her to be dehydrated, and she was given IVF with improvement of her BP. She feels less dizzy today. She denies CP; SOB, and she ate well. Prior to admission, she denied any abd pains, n-v, or diarrhea. She began to feel weak several days ago. She also has history of dilated nonischemic cardiomyopathy and LV systolic dysfunction. She was admitted in the past with sigmoid perforation secondary to C. Diff megacolon. She underwent sigmoid resection with colostomy (Hartmans procedure) and was hospitalized for sepsis and respiratory failure. She was also hospitalized for acute pulmonary edema. She had abdominal CT which incidentally showed bilateral pleural effusion and this has been followed closely by her PMD. Since then, she has had reversal of the colostomy and ventral hernia repair. Shewas found to have severe LV systolic dysfunction with low LVEF and wasstarted on Entresto and Epleronone which shehastolerated. Most recent echocardiography was done in July 22, 2019 and it revealed severe LV systolic dysfunction with global hypokinesia and severe MR, last office visit 04/29/2019. 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: CVA (no residual in 2012, has been on coumadin,) Cardio/Vascular: Yes: CHF (systolic), HTN (concern for L renal artery stenosis), Hyperlipdemia Pulmonary: Yes: COPD Gastrointestinal: Yes: GERD Renal/: Yes: Other (L renal artery stenosis) Infectious Disease: Yes: C-Diff Psych: Yes: Depression Musculoskeletal: Yes: Osteoarthritis ENT: Yes: Other (visually impaired) Endocrine: Yes: Diabetes Mellitus (NIDDM) Dermatology: Yes: Basal Cell (multiple sites removed) Additional Medical History: legally blind, blind in right eye completely; fascial dehiscence of midline abdominal wounds (healing by secondary intention) - Past Surgical History Past Surgical History: Yes: Breast Biopsy (2005 and 06/16), Cataract Removal (bilateral), Colectomy (sigmoidectomy with colostomy (Dwaine's) for perforated sigmoid), Colostomy (reversed in 2018, had colon rupture in 2017, surgery with the colostomy,). No: Colonoscopy (never had) - Alcohol/Substance Use Hx Alcohol Use: No History of Substance Use: reports: None - Smoking History Smoking history: Former smoker Have you smoked in the past 12 months: No Aproximately how many cigarettes per day: 20 If you are a former smoker, when did you quit?: 09/23/2019 - Social History Usual Living Arrangement: With Spouse (last several weeks since hospital d/c) ADL: Family Assistance History of Recent Travel: No Home Medications - Allergies Allergies/Adverse Reactions: Allergies Allergy/AdvReac Type Severity Reaction Status Date / Time No Known Allergies Allergy Verified 07/14/19 10:32 - Home Medications Home Medications: Ambulatory Orders Atorvastatin Calcium 40 mg PO HS 01/17/17 Bupropion HCl [Wellbutrin -] 75 mg PO BID 01/17/17 Anastrozole [Arimidex -] 1 mg PO DAILY tablet 02/04/18 Furosemide [Lasix] 80 mg PO DAILY #30 tablet 02/04/18 Carvedilol [Coreg -] 25 mg PO BID 12/23/18 Acetaminophen [Pain Relief] 650 mg PO Q6H PRN 06/23/19 Multivitamin with Iron [Multivitamins with Iron] 1 each PO DAILY 06/23/19 Melatonin 5 mg PO HS 07/14/19 Sacubitril/Valsartan [Entresto 49 mg-51 mg Tablet] 1 tab PO BID tablet 07/27/19 Warfarin Na [Coumadin -] 5 mg PO DAILY@1800 tablet 07/27/19 metFORMIN XR [Glucophage Xr -] 500 mg PO DAILY@0700 #30 tab.sr.24h 07/27/19 Review of Systems - Review of Systems Neurological: reports: Dizziness Vital Signs: Vital Signs Temperature 97.6 F 09/29/19 06:00 Pulse Rate 73 09/29/19 06:00 Respiratory Rate 18 09/29/19 06:00 Blood Pressure 137/52 L 09/29/19 06:00 O2 Sat by Pulse Oximetry (%) 100 09/29/19 06:00 Constitutional: Yes: No Distress, Calm Neck: Yes: Supple Respiratory: Yes: Regular, CTA Bilaterally Gastrointestinal: Yes: Normal Bowel Sounds, Soft, Abdomen, Obese Cardiovascular: Yes: Regular Rate and Rhythm JVD: No Carotid Bruit: No Heart Sounds: Yes: S1, S2 Murmur: Yes: Systolic Murmur, Grade 2 Edema: No - Other Data Labs, Other Data: CBC, BMP 09/29/19 06:14 09/29/19 06:14 INR, PTT INR 2.02 (0.83-1.09) H 09/29/19 06:14 NSR @ [address]-T changes Tele: NSR Echo: Report Reviewed Ejection Fraction %: LVEF > or = 40 % Imaging - Results Chest X-ray: Report Reviewed (Bibasilar changes R>L) Cat Scan: Report Reviewed (HCT: No acute changes) Problem List - Problems (1) Hypotension Code(s): I95.9 - HYPOTENSION, UNSPECIFIED Qualifiers: Hypotension type: hypotension due to hypovolemia Qualified Code(s): I95.89 - Other hypotension; E86.1 - Hypovolemia (2) Acute on chronic systolic congestive heart failure Code(s): I50.23 - ACUTE ON CHRONIC SYSTOLIC (CONGESTIVE) HEART FAILURE (3) Anticoagulant long-term use Code(s): Z79.01 - USP (CURRENT) USE OF 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 (4) COPD without exacerbation Code(s): J44.9 - CHRONIC OBSTRUCTIVE PULMONARY DISEASE, UNSPECIFIED (5) Cancer of left breast Code(s): C50.912 - MALIGNANT NEOPLASM OF UNSPECIFIED SITE OF LEFT FEMALE BREAST Qualifiers: Breast location: upper outer quadrant of breast Estrogen receptor status: positive Patient sex: female Qualified Code(s): C50.412 - Malignant neoplasm of upper-outer quadrant of left female breast (6) Diabetes mellitus type 2, noninsulin dependent Code(s): E11.9 - TYPE 2 DIABETES MELLITUS WITHOUT COMPLICATIONS (8) Hypercholesterolemia Code(s): E78.00 - PURE HYPERCHOLESTEROLEMIA, UNSPECIFIED (9) Hypertensive heart and renal disease Qualifiers: Heart failure presence: without heart failure Hypertensive chronic kidney disease stage: stage 1-4 or unspecified chronic kidney disease Qualified Code(s): I13.10 - Hypertensive heart and chronic kidney disease without heart failure, with stage 1 through stage 4 chronic kidney disease, or unspecified chronic kidney disease (10) Visual impairment Code(s): H54.7 - UNSPECIFIED VISUAL LOSS Assessment/Plan Echocardiogram: 07/22/2019 Severely decreased LVEF 30-35%, severe MR, mild-mod TR RVSP 30-40 mmHg, mild Mg 11 mmHg Echocardiography (12/27/18): Normal LV systolic function, LVEF 55-60%, mild , mild MR. Nuclear MPI (12/28/18): Normal perfusion with LVEF 60%. Carotid Doppler(05/04/18): Mild right atherosclerotic plaque and moderate left atherosclerotic plaque in the common carotid extending into internal carotid artery. 12/24/2016 Echo: Normal LV size with moderate decreased LV fxn, mild pericardial effusion, mild ASHLEY, mod MR, mild MD, TR 01/28/2018 Echo: Normal LV size with severely decreased LV fxn EF 30-35%, normal RV size and fxn, mod LAE, mod MR 1. Orthostatic near syncope 2. Nonischemic cardiomyopathy LVEF 30-35% 3. Severe MR 4. History of CVA with left MCA thrombus and therapeutic INR 5. 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 COPD with Chronic Hypoxic Respiratory Failure and long smoking history 7. HTN 8. Hypercholesterolemia 9. Anemia 10. Type 2 DM 11. Renal artery stenosis 12. CKD 13. Mild 14. Breast cancer PLAN: 1. Hold oral diuresis Lasix 80 qd and judicious hydration with monitor renal function and electrolytes. 2. Decreased Carvedilol 3.125 mg BID and Lipitor 40 mg QHS, uptitrate as hemodynamics tolerate, resume Entresto and eplerenone once renal fxn stabilizes 3. Continue Warfarin as per INR 2-3 4. O2 to keep SpO2 >90% and inhaled bronchodilators as needed 5. Transfuse to maintain Hgb>8.0 6. Encourage ambulation 7. Eventual f/u with Dr. Mahoney upon d/c , thank you for consultative opportunity
[2019-09-29] MEDS: ANASTROZOLE 1 MG TABLET PO SCH (10:25)
[2019-09-29] MEDS: CARVEDILOL 3.125 MG TABLET (FP) PO SCH ×2 (10:25→22:04)
--- NOTE | 2019-09-29 11:27 | EKG ---
Test Reason : Blood Pressure : / mmHG Vent. Rate : 069 BPM Atrial Rate : 069 BPM P-R Int : 176 ms QRS Dur : 110 ms QT Int : 436 ms P-R-T Axes : 000 060 043 degrees QTc Int : 467 ms POOR DATA QUALITY, INTERPRETATION MAY BE ADVERSELY AFFECTED NORMAL SINUS RHYTHM CANNOT RULE OUT ANTERIOR INFARCT , AGE UNDETERMINED ABNORMAL ECG WHEN COMPARED WITH ECG OF 27-SEP-2019 14:43, NO SIGNIFICANT CHANGE WAS FOUND Confirmed by MARCE HERNANDEZ MD ([id number]) on 09/29/2019 11:26:55 AM [facility] Confirmed By:MARCE HERNANDEZ MD
[2019-09-29] MEDS: SODIUM CHLORIDE 0.45% 1,000 ML IV SCH ×2 (11:48→23:13)
--- NOTE | 2019-09-29 13:41 | PN ---
Progress Note (short form) - Note Progress Note: Active Medications Acetaminophen (Tylenol -) 650 mg PO Q6H PRN PRN Reason: PAIN LEVEL 3-10 Last Admin: 09/28/19 20:25 Dose: 650 mg Documented by: Anastrozole (Arimidex -) 1 mg PO DAILY [facility] Last Admin: 09/29/19 10:25 Dose: 1 mg Documented by: Atorvastatin Calcium (Lipitor -) 10 mg PO HS [facility] Last Admin: 09/28/19 21:51 Dose: 10 mg Documented by: Bupropion HCl (Wellbutrin -) 75 mg PO Q12H [facility] Last Admin: 09/29/19 06:25 Dose: 75 mg Documented by: Carvedilol (Coreg -) 3.125 mg PO BID [facility] Last Admin: 09/29/19 10:25 Dose: 3.125 mg Documented by: Cephalexin HCl (Keflex -) 250 mg PO Q6HPO [facility] Last Admin: 09/29/19 11:47 Dose: 250 mg Documented by: Sodium Chloride (1/2 Normal Saline) 1,000 mls @ 125 mls/hr IV ASDIR [facility] Last Admin: 09/29/19 11:48 Dose: 125 mls/hr Documented by: Insulin Aspart (Novolog Vial Sliding Scale -) 1 vial SQ BIDAC [facility]; Protocol Last Admin: 09/29/19 06:20 Dose: Not Given Documented by: Levofloxacin (Levaquin -) 250 mg PO DAILY@0600 [facility] Last Admin: 09/29/19 06:21 Dose: 250 mg Documented by: Melatonin (Melatonin) 5 mg PO HS PRN PRN Reason: INSOMNIA Last Admin: 09/27/19 23:30 Dose: 5 mg Documented by: Metformin HCl (Glucophage Xr -) 500 mg PO DAILY@0700 [facility] Last Admin: 09/29/19 06:21 Dose: 500 mg Documented by: Tramadol HCl (Ultram -) 50 mg PO Q6H PRN PRN Reason: PAIN LEVEL 4 - 6 Warfarin Sodium (Coumadin -) 5 mg PO DAILY@1800 [facility] Last Admin: 09/28/19 17:07 Dose: 5 mg Documented by: Laboratory Results - last 24 hr 09/27/19 09/28/19 09/29/19 14:12 16:50 05:46 WBC RBC Hgb Hct MCV MCH MCHC RDW Plt Count MPV PT with INR INR Sodium Potassium Chloride Carbon Dioxide Anion Gap BUN Creatinine Est GFR (CKD-EPI)AfAm Est GFR (CKD-EPI)NonAf POC Glucometer 111 89 Random Glucose Calcium Magnesium TSH COVID-19 ([facility]) Not detected 09/29/19 09/29/19 09/29/19 06:14 06:14 06:14 WBC 6.5 RBC 2.51 L Hgb 8.0 L Hct 24.5 L MCV 97.6 H MCH 31.9 MCHC 32.7 RDW 16.0 H Plt Count 208 MPV 7.7 PT with INR 24.00 H INR 2.02 H Sodium 142 Potassium 4.1 Chloride 111 H Carbon Dioxide 22 Anion Gap 9 BUN 44.5 H Creatinine 1.5 H Est GFR (CKD-EPI)AfAm 40.49 Est GFR (CKD-EPI)NonAf 34.93 POC Glucometer Random Glucose 89 Calcium 8.3 L Magnesium 1.9 TSH 4.05 H COVID-19 ([facility]) Vital Signs Temperature 98.3 F 09/29/19 10:00 Pulse Rate 68 09/29/19 10:00 Respiratory Rate 18 09/29/19 10:00 Blood Pressure 134/55 L 09/29/19 10:00 O2 Sat by Pulse Oximetry (%) 100 09/29/19 10:00 CC: feels "weak" but is Ok in general; has not had a BM ```````````````````````````````````` skin--no new lesions eyes--anicteric heart--RR lungs--grossly clear abd--soft, NT, ND ext--no edema neuro--alert; coherent; speech is fluent; no gross motor deficits ``````````````````````````````````````````````````````` Summ > Hypotension--with orthstatic Sx, now resolved which is due to hypovolemia PLAN: now in progress of hydration > dehydration--see above; intravasc depleted; as per low BP and high Bun/Cr now coming down with hydration, but still not at baseline PLAN: IVF and monitor labs > Anemia--not new but counts dropping with hydration; baseline not clear; may need PC transfusion if continues to drop > ASHD--low Ej State; Echo in 2019 showed a NL ej Fx but the most recent one done here at [facility] a few months ago again showed dimnished Ej FX; indicating HF with low Ej FX; and was placed on entresto which she will continue to need; CXR did not show any presence of CHF or effusion so will now have to stop Lasix especially considering that she is now prone to dehydration PLAN: On BB for now > DM--BS in good range with low dose Metformin > Shoulder pain--chronic; helped by Tramadol > Lt Leg wound infection--overlying a biopsied BC skin Ca; on dual Abs; culture taken, await final report; Cont current Abs > Constipation--has not had a BM yet; will Rx dulcalax supp ~~~~~~~~~~~~~~ Misc; discussed condition with her sister Yumiko ``````````````````````` Dr Caputo Problem List - Problems (1) Hypotension Code(s): I95.9 - HYPOTENSION, UNSPECIFIED Qualifiers: Hypotension type: hypotension due to hypovolemia Qualified Code(s): I95.89 - Other hypotension; E86.1 - Hypovolemia (2) Dehydration Code(s): E86.0 - DEHYDRATION (3) Anemia Code(s): D64.9 - ANEMIA, UNSPECIFIED Qualifiers: Anemia type: other cause Other causes of anemia: other cause, not classified Qualified Code(s): D64.89 - Other specified anemias (4) Anticoagulant long-term use 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 (5) Breast cancer, left Code(s): C50.912 - MALIGNANT NEOPLASM OF UNSPECIFIED SITE OF LEFT FEMALE BREAST Qualifiers: Breast location: unspecified site of breast Estrogen receptor status: unspecified Patient sex: female Qualified Code(s): C50.912 - Malignant neoplasm of unspecified site of left female breast (6) COPD (chronic obstructive pulmonary disease) Code(s): J44.9 - CHRONIC OBSTRUCTIVE PULMONARY DISEASE, UNSPECIFIED Qualifiers: COPD type: unspecified COPD Qualified Code(s): J44.9 - Chronic obstructive pulmonary disease, unspecified (7) CHF (congestive heart failure) Code(s): I50.9 - HEART FAILURE, UNSPECIFIED Qualifiers: Heart failure type: systolic Heart failure chronicity: chronic Qualified Code(s): I50.22 - Chronic systolic (congestive) heart failure (8) Depression Code(s): F32.9 - MAJOR DEPRESSIVE DISORDER, SINGLE EPISODE, UNSPECIFIED Qualifiers: Depression Type: major depressive disorder Major depression episode severity: unspecified (9) Diabetes mellitus type 2, noninsulin dependent Code(s): E11.9 - TYPE 2 DIABETES MELLITUS WITHOUT COMPLICATIONS (11) Visual impairment Code(s): H54.7 - UNSPECIFIED VISUAL LOSS (12) Infected wound Code(s): T14.8XXA - OTHER INJURY OF UNSPECIFIED BODY REGION, INITIAL ENCOUNTER; L08.9 - LOCAL INFECTION OF THE SKIN AND SUBCUTANEOUS TISSUE, UNSP (13) Skin neoplasm malignant Code(s): C44.90 - UNSPECIFIED MALIGNANT NEOPLASM OF SKIN, UNSPECIFIED (14) Elderly person living alone Code(s): Z60.2 - PROBLEMS RELATED TO LIVING ALONE
[2019-09-29] MEDS: BISACODYL 10 MG SUPP.RECT PR ONE ×2 (18:05→19:22)
[2019-09-29] MEDS: WARFARIN NA 5 MG TABLET PO SCH (18:05)
[2019-09-29] MEDS: traMADol HCL 50 MG TABLET PO PRN (20:10)
[2019-09-29] MEDS: ATORVASTATIN CA 10 MG TABLET (FP) PO SCH (22:04)
[2019-09-30] MEDS ORDERED: PT OWN MED DRAWER 7, Y5N ONE ×3 (01:23→10:33)
[2019-09-30] MEDS: CEPHALEXIN MONOHYDRATE 250 MG CAPSULE (FP) PO SCH ×4 (01:24→18:15)
[2019-09-30] MEDS: buPROPion HCL 75 MG TABLET PO SCH ×2 (06:12→18:15)
[2019-09-30] MEDS: INSULIN SLIDING SCALE (NOVOLOG) 1 VIAL SQ SCH ×3 (06:20→16:30)
[2019-09-30] MEDS: ACETAMINOPHEN 325 MG TABLET (FP) PO PRN (07:47)
[2019-09-30] MEDS: traMADol HCL 50 MG TABLET PO PRN ×2 (07:47→21:03)
--- NOTE | 2019-09-30 09:24 | PN ---
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 Her BP was 90/50 sitting and 80/40 standing. She was not able to ambulate w/o assist. She was sent to the ER via EMS who found her BP to be low as well. In the ER, her chemistry showed her to b e dehydrated, and she was given IVF with improvement of her BP. She feels less dizzy on day of admission. She denies CP; SOB, and she ate well. Prior to admission, she denied any abd pains, n-v, or diarrhea. She began to feel weak several days ago. She also has history of dilated nonischemic cardiomyopathy and LV systolic dysfunction. She was admitted in the past with sigmoid perforation secondary to C. Diff megacolon. She underwent sigmoid resection with colostomy (Hartmans procedure) and was hospitalized for sepsis and respiratory failure. She was also hospitalized for acute pulmonary edema. She had abdominal CT which incidentally showed bilateral pleural effusion and this has been followed closely by her PMD. Since then, she has had reversal of the colostomy and ventral hernia repair. Shewas found to have severe LV systolic dysfunction with low LVEF and wasstar sampson on Entresto and Epleronone which shehastolerated. Most recent echocardiography was done in July 22, 2019 and it revealed severe LV systolic dysfunction with global hypokinesia and severe MR, last office visit 04/29/2019. 09/29: feels much better, has had PT, no dizziness/CP/SOB BP has increased; Cr better;Occult blood; neg; Covid: negative - Home Medications Home Medications: Ambulatory Orders Atorvastatin Calcium 40 mg PO HS 01/17/17 Bupropion HCl [Wellbutrin -] 75 mg PO BID 01/17/17 Anastrozole [Arimidex -] 1 mg PO DAILY tablet 02/04/18 Furosemide [Lasix] 80 mg PO DAILY #30 tablet 02/04/18 Carvedilol [Coreg -] 25 mg PO BID 12/23/18 Acetaminophen [Pain Relief] 650 mg PO Q6H PRN 06/23/19 Multivitamin with Iron [Multivitamins with Iron] 1 each PO DAILY 06/23/19 Melatonin 5 mg PO HS 07/14/19 Sacubitril/Valsartan [Entresto 49 mg-51 mg Tablet] 1 tab PO BID tablet 07/27/19 Warfarin Na [Coumadin -] 5 mg PO DAILY@1800 tablet 07/27/19 metFORMIN XR [Glucophage Xr -] 500 mg PO DAILY@0700 #30 tab.sr.24h 07/27/19 Vital Signs Temperature 97.7 F 09/30/19 06:00 Pulse Rate 77 09/30/19 06:00 Respiratory Rate 20 09/30/19 06:00 Blood Pressure 148/57 L 09/30/19 06:00 O2 Sat by Pulse Oximetry (%) 99 09/30/19 06:00 Constitutional: Yes: No Distress, Calm Neck: Yes: Supple Respiratory: Yes: Regular, CTA Bilaterally Gastrointestinal: Yes: Normal Bowel Sounds, Soft, Abdomen, Obese Cardiovascular: Yes: Regular Rate and Rhythm JVD: No Carotid Bruit: No Heart Sounds: Yes: S1, S2 Murmur: Yes: Systolic Murmur, Grade 2 Edema: No CBC, BMP 09/29/19 06:14 09/29/19 06:14 Hepatic Panel Total Bilirubin 0.2 mg/dL (0.2-1) 09/27/19 13:50 AST 11 U/L (15-37) L 09/27/19 13:50 ALT 9 U/L (13-61) L 09/27/19 13:50 Alkaline Phosphatase 84 U/L (45-117) 09/27/19 13:50 Albumin 3.1 g/dl (3.4-5.0) L 09/27/19 13:50 Active Medications Acetaminophen (Tylenol -) 650 mg PO Q6H PRN PRN Reason: PAIN LEVEL 3-10 Last Admin: 09/30/19 07:47 Dose: 650 mg Documented by: Anastrozole (Arimidex -) 1 mg PO DAILY [facility] Last Admin: 09/29/19 10:25 Dose: 1 mg Documented by: Atorvastatin Calcium (Lipitor -) 10 mg PO HS [facility] Last Admin: 09/29/19 22:04 Dose: 10 mg Documented by: Bupropion HCl (Wellbutrin -) 75 mg PO Q12H [facility] Last Admin: 09/30/19 06:12 Dose: 75 mg Documented by: Carvedilol (Coreg -) 3.125 mg PO BID [facility] Last Admin: 09/29/19 22:04 Dose: 3.125 mg Documented by: Cephalexin HCl (Keflex -) 250 mg PO Q6HPO [facility] Last Admin: 09/30/19 06:12 Dose: 250 mg Documented by: Sodium Chloride (1/2 Normal Saline) 1,000 mls @ 125 mls/hr IV ASDIR [facility] Last Admin: 09/29/19 23:13 Dose: 125 mls/hr Documented by: Insulin Aspart (Novolog Vial Sliding Scale -) 1 vial SQ BIDAC [facility]; Protocol Last Admin: 09/30/19 06:21 Dose: Not Given Documented by: Levofloxacin (Levaquin -) 250 mg PO DAILY@0600 [facility] Last Admin: 09/30/19 06:12 Dose: 250 mg Documented by: Melatonin (Melatonin) 5 mg PO HS PRN PRN Reason: INSOMNIA Last Admin: 09/27/19 23:30 Dose: 5 mg Documented by: Metformin HCl (Glucophage Xr -) 500 mg PO DAILY@0700 [facility] Last Admin: 09/30/19 06:12 Dose: 500 mg Documented by: Tramadol HCl (Ultram -) 50 mg PO Q6H PRN PRN Reason: PAIN LEVEL 4 - 6 Last Admin: 09/30/19 07:47 Dose: 50 mg Documented by: Warfarin Sodium (Coumadin -) 5 mg PO DAILY@1800 [facility] Last Admin: 09/29/19 18:05 Dose: 5 mg Documented by: NSR @ [address]-T changes Tele: NSR Imaging - Results Chest X-ray: Report Reviewed (Bibasilar changes R>L) Cat Scan: Report Reviewed (HCT: No acute changes) Problem List - Problems (1) Hypotension Code(s): I95.9 - HYPOTENSION, UNSPECIFIED Qualifiers: Hypotension type: hypotension due to hypovolemia Qualified Code(s): I95.89 - Other hypotension; E86.1 - Hypovolemia (2) Acute on chronic systolic congestive heart failure Code(s): I50.23 - ACUTE ON CHRONIC SYSTOLIC (CONGESTIVE) HEART FAILURE (3) Anticoagulant long-term use 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 (4) COPD without exacerbation Code(s): J44.9 - CHRONIC OBSTRUCTIVE PULMONARY DISEASE, UNSPECIFIED (5) Cancer of left breast Code(s): C50.912 - MALIGNANT NEOPLASM OF UNSPECIFIED SITE OF LEFT FEMALE BREAST Qualifiers: Breast location: upper outer quadrant of breast Estrogen receptor status: positive Patient sex: female Qualified Code(s): C50.412 - Malignant neoplasm of upper-outer quadrant of left female breast (6) Diabetes mellitus type 2, noninsulin dependent Code(s): E11.9 - TYPE 2 DIABETES MELLITUS WITHOUT COMPLICATIONS (8) Hypercholesterolemia Code(s): E78.00 - PURE HYPERCHOLESTEROLEMIA, UNSPECIFIED (9) Hypertensive heart and renal disease Qualifiers: Heart failure presence: without heart failure Hypertensive chronic kidney disease stage: stage 1-4 or unspecified chronic kidney disease Qualified Code(s): I13.10 - Hypertensive heart and chronic kidney disease without heart failure, with stage 1 through stage 4 chronic kidney disease, or unspecified chronic kidney disease (10) Visual impairment Code(s): H54.7 - UNSPECIFIED VISUAL LOSS Assessment/Plan Echocardiogram: 07/22/2019 Severely decreased LVEF 30-35%, severe MR, mild-mod TR RVSP 30-40 mmHg, mild Mg 11 mmHg Echocardiography (12/27/18): Normal LV systolic function, LVEF 55-60%, mild , mild MR. Nuclear MPI (12/28/18): Normal perfusion with LVEF 60%. Carotid Doppler(05/04/18): Mild right atherosclerotic plaque and moderate left atherosclerotic plaque in the common carotid extending into internal carotid artery. 12/24/2016 Echo: Normal LV size with moderate decreased LV fxn, mild pericardial effusion, mild ASHLEY, mod MR, mild [place], TR 01/28/2018 Echo: Normal LV size with severely decreased LV fxn EF 30-35%, normal RV size and fxn, mod LAE, mod MR 1. Orthostatic near syncope 2. Nonischemic cardiomyopathy LVEF 30-35% 3. Severe MR 4. History of CVA with left MCA thrombus and therapeutic INR 5. 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 COPD with Chronic Hypoxic Respiratory Failure and long smoking history 7. HTN 8. Hypercholesterolemia 9. Anemia 10. Type 2 DM 11. Renal artery stenosis 12. CKD 13. Mild 14. Breast cancer PLAN: 1. Hold furosemide ;d/c IVF 2. Increase Carvedilol 25 mg mg BID and Lipitor 40 mg QHS, resume Entresto and eplerenone once renal fxn stabilizes 3. Continue Warfarin as per INR 2-3 4. O2 to keep SpO2 >90% and inhaled bronchodilators as needed 5. Transfuse to maintain Hgb>8.0 6. Encourage ambulation /PT 7. Eventual f/u with Dr. Mahoney upon d/c ,
[2019-09-30] MEDS ORDERED: CARVEDILOL 25 MG TABLET (FP) PO SCH (10:00)
[2019-09-30] MEDS: ANASTROZOLE 1 MG TABLET PO SCH (10:35)
[2019-09-30 11:16] LABS: HEMATOCRIT 26.4 % (32.4-45.2); HEMOGLOBIN 8.7 GM/dL (10.7-15.3); MCH 32.6 pg (25.7-33.7); MCHC 33.1 g/dl (32.0-36.0); MEAN CELL VOLUME 98.7 fl (80-96); MEAN PLT VOLUME 7.3 fl (7.5-11.1); PLATELET COUNT 239 K/MM3 (134-434); RBC 2.67 M/mm3 (3.60-5.2); RDW 15.9 % (11.6-15.6); WHITE BLOOD COUNT 7.8 K/mm3 (4.0-10.0)
[2019-09-30 11:22] LABS: INR 2.09 (0.83-1.09); PROTHROMBIN TIME (PATIENT) 24.8 SEC (9.7-13.0)
[2019-09-30 11:43] LABS: BLOOD UREA NITROGEN 37.7 mg/dL (7-18); CALCIUM 8.4 mg/dL (8.5-10.1); CREATININE 1.4 mg/dL (0.55-1.3); POTASSIUM 4.5 mmol/L (3.5-5.1)
--- NOTE | 2019-09-30 15:59 | PN ---
Progress Note (short form) - Note Progress Note: Active Medications Acetaminophen (Tylenol -) 650 mg PO Q6H PRN PRN Reason: PAIN LEVEL 3-10 Last Admin: 09/30/19 07:47 Dose: 650 mg Documented by: Anastrozole (Arimidex -) 1 mg PO DAILY [facility] Last Admin: 09/30/19 10:35 Dose: 1 mg Documented by: Atorvastatin Calcium (Lipitor -) 10 mg PO HS [facility] Last Admin: 09/29/19 22:04 Dose: 10 mg Documented by: Bupropion HCl (Wellbutrin -) 75 mg PO Q12H [facility] Last Admin: 09/30/19 06:12 Dose: 75 mg Documented by: Carvedilol (Coreg -) 12.5 mg PO BID [facility] Cephalexin HCl (Keflex -) 250 mg PO Q6HPO [facility] Last Admin: 09/30/19 12:26 Dose: 250 mg Documented by: Insulin Aspart (Novolog Vial Sliding Scale -) [facility]; Protocol Last Admin: 09/30/19 06:21 Dose: Not Given Documented by: Levofloxacin (Levaquin -) 250 mg PO DAILY@0600 [facility] Last Admin: 09/30/19 06:12 Dose: 250 mg Documented by: Melatonin (Melatonin) 5 mg PO HS PRN PRN Reason: INSOMNIA Last Admin: 09/27/19 23:30 Dose: 5 mg Documented by: Metformin HCl (Glucophage Xr -) 500 mg PO DAILY@0700 [facility] Last Admin: 09/30/19 06:12 Dose: 500 mg Documented by: Sacubitril/Valsartan (Entresto 24 Mg-26 Mg Tablet) 1 tab PO BID [facility] Tramadol HCl (Ultram -) 50 mg PO Q6H PRN PRN Reason: PAIN LEVEL 4 - 6 Last Admin: 09/30/19 07:47 Dose: 50 mg Documented by: Warfarin Sodium (Coumadin -) 5 mg PO DAILY@1800 [facility] Last Admin: 09/29/19 18:05 Dose: 5 mg Documented by: Laboratory Results - last 24 hr 09/29/19 09/29/19 09/30/19 17:36 18:50 10:50 WBC 7.8 RBC 2.67 L Hgb 8.7 L Hct 26.4 L MCV 98.7 H MCH 32.6 MCHC 33.1 RDW 15.9 H Plt Count 239 MPV 7.3 L PT with INR INR Sodium Potassium Chloride Carbon Dioxide Anion Gap BUN Creatinine Est GFR (CKD-EPI)AfAm Est GFR (CKD-EPI)NonAf POC Glucometer 161 Random Glucose Calcium Free T4 Stool Occult Blood Negative 09/30/19 09/30/19 10:50 10:50 WBC RBC Hgb Hct MCV MCH MCHC RDW Plt Count MPV PT with INR 24.80 H INR 2.09 H Sodium 141 Potassium 4.5 Chloride 112 H Carbon Dioxide 21 Anion Gap 8 BUN 37.7 H Creatinine 1.4 H Est GFR (CKD-EPI)AfAm 44.01 Est GFR (CKD-EPI)NonAf 37.97 POC Glucometer Random Glucose 99 Calcium 8.4 L Free T4 0.97 Stool Occult Blood Vital Signs Temperature 97 F L 09/30/19 13:33 Pulse Rate 72 09/30/19 13:33 Respiratory Rate 20 09/30/19 13:33 Blood Pressure 116/56 L 09/30/19 13:33 O2 Sat by Pulse Oximetry (%) 98 09/30/19 10:00 CC: feels "weak" when tries to walk; feels bilat calf and leg weakness not holding her up. ```````````````````````````````````` skin--no new lesions; denuded skin on inner mid Lt calf eyes--anicteric heart--RR lungs--grossly clear abd--soft, NT, ND ext--no edema neuro--alert; coherent; speech is fluent; no gross motor deficits ``````````````````````````````````````````````````````` Summ > gait dysf--in the wake of her dehydration and being bedridden; 2nd to deconditioning; will need short term rehab. Discussed with Maru (ANG) who stated that there is no need to convert her to in-patient status. > Hypotension--corrected with IVf. > dehydration--see above; intravasc depleted; as per low BP and high Bun/Cr but now improved with IVF to neqr baseline PLAN: will avoid excess IVF as she is prone to CHF due to low Ej Fx. > Anemia--Hgb seems to be stable; stool for OB negative; declines invasive diagn testing > ASHD--low Ej State; most recent one done here at [facility] a few months ago again showed dimnished Ej FX; indicating HF with low Ej FX; and was placed on entresto which she will continue to need; CXR did not show any presence of CHF or effusion so will now have to stop Lasix especially considering that she is now prone to dehydration PLAN: entresto added to BB; will titrate up the Coreg to 25mg BID > DM--eating better; she still is non complaint as she continues to drink sugary sodas > Shoulder pain--chronic; helped by Tramadol > Lt Leg wound infection--overlying a biopsied BC skin Ca; on dual Abs; culture taken shows no presence of SA or Ecoli; will stop Abs in Am > Retirement a/c--for stroke prophylaxis; INR over 2.0 > Constipation--had BM. ~~~~~~~~~~~~~~ dr Caputo Problem List - Problems (1) Hypotension Code(s): I95.9 - HYPOTENSION, UNSPECIFIED Qualifiers: Hypotension type: hypotension due to hypovolemia Qualified Code(s): I95.89 - Other hypotension; E86.1 - Hypovolemia (2) Dehydration Code(s): E86.0 - DEHYDRATION (3) Anemia Code(s): D64.9 - ANEMIA, UNSPECIFIED Qualifiers: Anemia type: other cause Other causes of anemia: other cause, not classified Qualified Code(s): D64.89 - Other specified anemias (4) Anticoagulant long-term use Code(s): Z79.01 - SENIOR LIVING (CURRENT) USE OF 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 (5) Breast cancer, left Code(s): C50.912 - MALIGNANT NEOPLASM OF UNSPECIFIED SITE OF LEFT FEMALE BREAST Qualifiers: Breast location: unspecified site of breast Estrogen receptor status: unspecified Patient sex: female Qualified Code(s): C50.912 - Malignant neoplasm of unspecified site of left female breast (6) COPD (chronic obstructive pulmonary disease) Code(s): J44.9 - CHRONIC OBSTRUCTIVE PULMONARY DISEASE, UNSPECIFIED Qualifiers: COPD type: unspecified COPD Qualified Code(s): J44.9 - Chronic obstructive pulmonary disease, unspecified (7) CHF (congestive heart failure) Code(s): I50.9 - HEART FAILURE, UNSPECIFIED Qualifiers: Heart failure type: systolic Heart failure chronicity: chronic Qualified Code(s): I50.22 - Chronic systolic (congestive) heart failure (8) Depression Code(s): F32.9 - MAJOR DEPRESSIVE DISORDER, SINGLE EPISODE, UNSPECIFIED Qualifiers: Depression Type: major depressive disorder Major depression episode severity: unspecified (9) Diabetes mellitus type 2, noninsulin dependent Code(s): E11.9 - TYPE 2 DIABETES MELLITUS WITHOUT COMPLICATIONS (11) Visual impairment Code(s): H54.7 - UNSPECIFIED VISUAL LOSS (12) Infected wound Code(s): T14.8XXA - OTHER INJURY OF UNSPECIFIED BODY REGION, INITIAL ENCOUNTER; L08.9 - LOCAL INFECTION OF THE SKIN AND SUBCUTANEOUS TISSUE, UNSP (13) Skin neoplasm malignant Code(s): C44.90 - UNSPECIFIED MALIGNANT NEOPLASM OF SKIN, UNSPECIFIED (14) Elderly person living alone Code(s): Z60.2 - PROBLEMS RELATED TO LIVING ALONE
[2019-09-30] MEDS: WARFARIN NA 5 MG TABLET PO SCH (18:15)
[2019-09-30] MEDS: CARVEDILOL 25 MG TABLET (FP) PO SCH (21:47)
[2019-09-30] MEDS: ATORVASTATIN CA 10 MG TABLET (FP) PO SCH (21:47)
[2019-09-30] MEDS: SACUBITRIL/VALSARTAN 24 MG-26 MG TABLET PO SCH (21:47)
[2019-10-01] MEDS ORDERED: PT OWN MED DRAWER 7, Y5N ONE ×4 (00:05→11:07)
[2019-10-01] MEDS: CEPHALEXIN MONOHYDRATE 250 MG CAPSULE (FP) PO SCH ×4 (00:12→17:01)
[2019-10-01] MEDS: ACETAMINOPHEN 325 MG TABLET (FP) PO PRN (02:43)
[2019-10-01] MEDS: traMADol HCL 50 MG TABLET PO PRN ×2 (04:38→22:41)
[2019-10-01] MEDS: buPROPion HCL 75 MG TABLET PO SCH ×2 (05:40→17:02)
[2019-10-01] MEDS: INSULIN SLIDING SCALE (NOVOLOG) 1 VIAL SQ SCH ×2 (06:32→17:00)
[2019-10-01] MEDS: CARVEDILOL 25 MG TABLET (FP) PO SCH ×2 (10:02→20:30)
[2019-10-01] MEDS: SACUBITRIL/VALSARTAN 24 MG-26 MG TABLET PO SCH ×3 (10:03→21:00)
[2019-10-01] MEDS: ANASTROZOLE 1 MG TABLET PO SCH (10:04)
--- NOTE | 2019-10-01 10:23 | PN ---
Progress Note (short form) - Note Progress Note: Active Medications Acetaminophen (Tylenol -) 650 mg PO Q6H PRN PRN Reason: PAIN LEVEL 3-10 Last Admin: 10/01/19 02:43 Dose: 650 mg Documented by: Anastrozole (Arimidex -) 1 mg PO DAILY [facility] Last Admin: 10/01/19 10:04 Dose: 1 mg Documented by: Atorvastatin Calcium (Lipitor -) 10 mg PO HS [facility] Last Admin: 09/30/19 21:47 Dose: 10 mg Documented by: Bupropion HCl (Wellbutrin -) 75 mg PO Q12H [facility] Last Admin: 10/01/19 05:40 Dose: 75 mg Documented by: Carvedilol (Coreg -) 12.5 mg PO BID [facility] Last Admin: 10/01/19 10:02 Dose: 12.5 mg Documented by: Cephalexin HCl (Keflex -) 250 mg PO Q6HPO [facility] Last Admin: 10/01/19 05:40 Dose: 250 mg Documented by: Insulin Aspart (Nov[facility] Sliding Scale -) [facility]; Protocol Last Admin: 10/01/19 06:32 Dose: Not Given Documented by: Levofloxacin (Levaquin -) 250 mg PO DAILY@0600 [facility] Last Admin: 10/01/19 05:40 Dose: 250 mg Documented by: Melatonin (Melatonin) 5 mg PO HS PRN PRN Reason: INSOMNIA Last Admin: 09/27/19 23:30 Dose: 5 mg Documented by: Metformin HCl (Glucophage Xr -) 500 mg PO DAILY@0700 [facility] Last Admin: 10/01/19 06:32 Dose: 500 mg Documented by: Sacubitril/Valsartan (Entresto 24 Mg-26 Mg Tablet) 1 tab PO BID [facility] Last Admin: 10/01/19 10:03 Dose: 1 tab Documented by: Tramadol HCl (Ultram -) 50 mg PO Q6H PRN PRN Reason: PAIN LEVEL 4 - 6 Last Admin: 10/01/19 04:38 Dose: 50 mg Documented by: Warfarin Sodium (Coumadin -) 5 mg PO DAILY@1800 [facility] Last Admin: 09/30/19 18:15 Dose: 5 mg Documented by: Laboratory Results - last 24 hr 09/30/19 09/30/19 09/30/19 10:50 10:50 10:50 WBC 7.8 RBC 2.67 L Hgb 8.7 L Hct 26.4 L MCV 98.7 H MCH 32.6 MCHC 33.1 RDW 15.9 H Plt Count 239 MPV 7.3 L PT with INR 24.80 H INR 2.09 H Sodium 141 Potassium 4.5 Chloride 112 H Carbon Dioxide 21 Anion Gap 8 BUN 37.7 H Creatinine 1.4 H Est GFR (CKD-EPI)AfAm 44.01 Est GFR (CKD-EPI)NonAf 37.97 POC Glucometer Random Glucose 99 Calcium 8.4 L Free T4 0.97 09/30/19 16:29 WBC RBC Hgb Hct MCV MCH MCHC RDW Plt Count MPV PT with INR INR Sodium Potassium Chloride Carbon Dioxide Anion Gap BUN Creatinine Est GFR (CKD-EPI)AfAm Est GFR (CKD-EPI)NonAf POC Glucometer 137 Random Glucose Calcium Free T4 Vital Signs Temperature 97.8 F 10/01/19 09:00 Pulse Rate 71 10/01/19 09:00 Respiratory Rate 18 10/01/19 09:00 Blood Pressure 135/56 L 10/01/19 09:00 O2 Sat by Pulse Oximetry (%) 98 10/01/19 09:00 CC: feels feels bilat calf and leg weakness not holding her up. ```````````````````````````````````` skin--no new lesions; denuded skin on Bx lesion of inner mid Lt calf eyes--anicteric heart--RR lungs--grossly clear abd--soft, NT, ND ext--no edema neuro--alert; coherent; speech is fluent; no gross motor deficits ``````````````````````````````````````````````````````` Summ > gait dysf--in the wake of her dehydration and being chair-bedridden; 2nd to deconditioning; will need short term rehab. Denied by Rina; spoke with Kerry (ANG) who stated that [facility]EVIN sent to the [facility] and are awaiting insurance approval; she stated that there was no need to convert her to inpt status because "there is nothing that we doing to justify inpatient status" at this time.. > Hypotension--corrected with IVf. > dehydration-- was intravasc depleted; as per low BP and high Bun/Cr but now improved: will avoid excess IVF as she is prone to CHF due to low Ej Fx. > Anemia--stool for OB negative; declines invasive diagn testing > ASHD--low Ej State; most recent one done here at [facility] a few months ago again showed dimnished Ej FX; indicating HF with low Ej FX; and was placed on entresto which she will continue to need; CXR did not show any presence of CHF or effusion so will now have to stop Lasix especially considering that she is now prone to dehydration PLAN: entresto added to BB; will titrate up the Coreg to 25mg BID > DM--eating better; she still is non complaint as she continues to drink sugary sodas > Shoulder pain--on & off. chronic; helped by Tramadol; will get Xray > Lt Leg wound infection--overlying a biopsied BC skin Ca; on dual Abs; culture taken shows no presence of SA or Ecoli; will stop Abs in Am > Custodial a/c--for stroke prophylaxis > Constipation--had BM. ~~~~~~~~~~~~~~ dr Caputo Problem List - Problems (1) Hypotension Code(s): I95.9 - HYPOTENSION, UNSPECIFIED Qualifiers: Hypotension type: hypotension due to hypovolemia Qualified Code(s): I95.89 - Other hypotension; E86.1 - Hypovolemia (2) Dehydration Code(s): E86.0 - DEHYDRATION (3) Anemia Code(s): D64.9 - ANEMIA, UNSPECIFIED Qualifiers: Anemia type: other cause Other causes of anemia: other cause, not classified Qualified Code(s): D64.89 - Other specified anemias (4) Anticoagulant long-term use Code(s): Z79.01 - SKILLED NURSING (CURRENT) USE OF 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 (5) Breast cancer, left Code(s): C50.912 - MALIGNANT NEOPLASM OF UNSPECIFIED SITE OF LEFT FEMALE BREAST Qualifiers: Breast location: unspecified site of breast Estrogen receptor status: unspecified Patient sex: female Qualified Code(s): C50.912 - Malignant neoplasm of unspecified site of left female breast (6) COPD (chronic obstructive pulmonary disease) Code(s): J44.9 - CHRONIC OBSTRUCTIVE PULMONARY DISEASE, UNSPECIFIED Qualifiers: COPD type: unspecified COPD Qualified Code(s): J44.9 - Chronic obstructive pulmonary disease, unspecified (7) CHF (congestive heart failure) Code(s): I50.9 - HEART FAILURE, UNSPECIFIED Qualifiers: Heart failure type: systolic Heart failure chronicity: chronic Qualified Code(s): I50.22 - Chronic systolic (congestive) heart failure (8) Depression Code(s): F32.9 - MAJOR DEPRESSIVE DISORDER, SINGLE EPISODE, UNSPECIFIED Qualifiers: Depression Type: major depressive disorder Major depression episode severity: unspecified (9) Diabetes mellitus type 2, noninsulin dependent Code(s): E11.9 - TYPE 2 DIABETES MELLITUS WITHOUT COMPLICATIONS (11) Visual impairment Code(s): H54.7 - UNSPECIFIED VISUAL LOSS (12) Infected wound Code(s): T14.8XXA - OTHER INJURY OF UNSPECIFIED BODY REGION, INITIAL ENCOUNTER; L08.9 - LOCAL INFECTION OF THE SKIN AND SUBCUTANEOUS TISSUE, UNSP (13) Skin neoplasm malignant Code(s): C44.90 - UNSPECIFIED MALIGNANT NEOPLASM OF SKIN, UNSPECIFIED (14) Elderly person living alone Code(s): Z60.2 - PROBLEMS RELATED TO LIVING ALONE
[2019-10-01 13:52] LABS: HEMATOCRIT 24.3 % (32.4-45.2); MCH 32.8 pg (25.7-33.7); MCHC 33.1 g/dl (32.0-36.0); MEAN CELL VOLUME 99.1 fl (80-96); MEAN PLT VOLUME 7.9 fl (7.5-11.1); PLATELET COUNT 201 K/MM3 (134-434); RBC 2.45 M/mm3 (3.60-5.2); RDW 15.6 % (11.6-15.6); WHITE BLOOD COUNT 6.6 K/mm3 (4.0-10.0)
[2019-10-01 14:00] LABS: INR 2.54 (0.83-1.09); PROTHROMBIN TIME (PATIENT) 30.2 SEC (9.7-13.0)
--- NOTE | 2019-10-01 15:25 | PN ---
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 Her BP was 90/50 sitting and 80/40 standing. She was not able to ambulate w/o assist. She was sent to the ER via EM S who found her BP to be low as well. In the ER, her chemistry showed her to be dehydrated, and she was given IVF with improvement of her BP. She feels less dizzy on day of admission. She denies CP; SOB, and she ate well. Prior to admission, she denied any abd pains, n-v, or diarrhea. She began to feel weak several days ago. She also has history of dilated nonischemic cardiomyopathy and LV systolic dysfunction. She was admitted in the past with sigmoid perforation secondary to C. Diff megacolon. She underwent sigmoid resection with colostomy (Hartmans procedure) and was hospitalized for sepsis and respiratory failure. She was also hospitalized for acute pulmonary edema. She had abdominal CT which incidentally showed bilateral pleural effusion and this has been followed closely by her PMD. Since then, she has had reversal of the colostomy and ventral hernia repair. S hewas found to have severe LV systolic dysfunction with low LVEF and wasstarted on Entresto and Epleronone which shehastolerated. Most recent echocardiography was done in July 22, 2019 and it revealed severe LV systolic dysfunction with global hypokinesia and severe MR, last office visit 04/29/2019. 09/29: feels much better, has had PT, no dizziness/CP/SOB BP has increased; Cr better;Occult blood; neg; Covid: negative - Current Medication List Current Medications: Active Medications Acetaminophen (Tylenol -) 650 mg PO Q6H PRN PRN Reason: PAIN LEVEL 3-10 Last Admin: 10/01/19 02:43 Dose: 650 mg Documented by: Anastrozole (Arimidex -) 1 mg PO DAILY [facility] Last Admin: 10/01/19 10:04 Dose: 1 mg Documented by: Atorvastatin Calcium (Lipitor -) 10 mg PO HS [facility] Last Admin: 09/30/19 21:47 Dose: 10 mg Documented by: Bupropion HCl (Wellbutrin -) 75 mg PO Q12H [facility] Last Admin: 10/01/19 05:40 Dose: 75 mg Documented by: Carvedilol (Coreg -) 12.5 mg PO BID [facility] Last Admin: 10/01/19 10:02 Dose: 12.5 mg Documented by: Cephalexin HCl (Keflex -) 250 mg PO Q6HPO [facility] Stop: 10/01/19 23:59 Last Admin: 10/01/19 11:09 Dose: 250 mg Documented by: Insulin Aspart (Novolog Vial Sliding [facility] -) [facility] Last Admin: 10/01/19 06:32 Dose: Not Given Documented by: Levofloxacin (Levaquin -) 250 mg PO DAILY@0600 [facility] Melatonin (Melatonin) 5 mg PO HS PRN PRN Reason: INSOMNIA Last Admin: 09/27/19 23:30 Dose: 5 mg Documented by: Metformin HCl (Glucophage Xr -) 500 mg PO DAILY@0700 [facility] Last Admin: 10/01/19 06:32 Dose: 500 mg Documented by: Sacubitril/Valsartan (Entresto 24 Mg-26 Mg Tablet) 1 tab PO BID [facility] Last Admin: 10/01/19 10:03 Dose: 1 tab Documented by: Tramadol HCl (Ultram -) 50 mg PO Q6H PRN PRN Reason: PAIN LEVEL 4 - 6 Last Admin: 10/01/19 04:38 Dose: 50 mg Documented by: Warfarin Sodium (Coumadin -) 5 mg PO DAILY@1800 [facility] Last Admin: 09/30/19 18:15 Dose: 5 mg Documented by: - Objective Vital Signs: Vital Signs Temperature 98.2 F 10/01/19 14:00 Pulse Rate 64 10/01/19 14:00 Respiratory Rate 18 10/01/19 14:00 Blood Pressure 112/51 L 10/01/19 14:00 O2 Sat by Pulse Oximetry (%) 99 10/01/19 14:00 Eyes: Yes: WNL, Conjunctiva Clear, EOM Intact HENT: Yes: WNL, Atraumatic, Normocephalic Neck: Yes: WNL, Supple, Trachea Midline Cardiovascular: Yes: WNL, Regular Rate and Rhythm Respiratory: Yes: WNL, Regular, CTA Bilaterally Gastrointestinal: Yes: WNL, Normal Bowel Sounds Genitourinary: Yes: WNL Musculoskeletal: Yes: WNL Extremities: Yes: WNL Edema: No Integumentary: Yes: WNL Neurological: Yes: Alert, Oriented Labs: CBC, BMP 10/01/19 12:30 09/30/19 10:50 INR, PTT INR 2.54 (0.83-1.09) H 10/01/19 12:30 Assessment/Plan Assessment/Plan Echocardiogram: 07/22/2019 Severely decreased LVEF 30-35%, severe MR, mild-mod TR RVSP 30-40 mmHg, mild Mg 11 mmHg Echocardiography (12/27/18): Normal LV systolic function, LVEF 55-60%, mild , mild MR. Nuclear MPI (12/28/18): Normal perfusion with LVEF 60%. Carotid Doppler(05/04/18): Mild right atherosclerotic plaque and moderate left atherosclerotic plaque in the common carotid extending into internal carotid artery. 12/24/2016 Echo: Normal LV size with moderate decreased LV fxn, mild pericardial effusion, mild ASHLEY, mod MR, mild MI, TR 01/28/2018 Echo: Normal LV size with severely decreased LV fxn EF 30-35%, normal RV size and fxn, mod LAE, mod MR 1. Orthostatic near syncope 2. Nonischemic cardiomyopathy LVEF 30-35% 3. Severe MR 4. History of CVA with left MCA thrombus and therapeutic INR 5. 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 COPD with Chronic Hypoxic Respiratory Failure and long smoking history 7. HTN 8. Hypercholesterolemia 9. Anemia 10. Type 2 DM 11. Renal artery stenosis 12. CKD 13. Mild 14. Breast cancer PLAN: 1. Hold furosemide ;d/c IVF 2. Increase Carvedilol 25 mg mg BID and Lipitor 40 mg QHS, resume Entresto and eplerenone once renal fxn stabilizes 3. Continue Warfarin as per INR 2-3 4. O2 to keep SpO2 >90% and inhaled bronchodilators as needed 5. Transfuse to maintain Hgb>8.0 6. Encourage ambulation /PT 7. Eventual f/u with Dr. Mahoney upon d/c , coverage dr. Mahoney
[2019-10-01] MEDS: WARFARIN NA 5 MG TABLET PO SCH (17:02)
[2019-10-01] MEDS: MELATONIN 5 MG TABLETS PO PRN (20:29)
[2019-10-01] MEDS: ATORVASTATIN CA 10 MG TABLET (FP) PO SCH ×2 (20:29→21:00)
[2019-10-02] MEDS: INSULIN SLIDING SCALE (NOVOLOG) 1 VIAL SQ SCH ×2 (06:11→16:49)
[2019-10-02] MEDS ORDERED: PT OWN MED DRAWER 7, Y5N ONE ×3 (06:27→16:42)
[2019-10-02] MEDS: buPROPion HCL 75 MG TABLET PO SCH ×2 (06:29→17:40)
[2019-10-02 07:45] LABS: INR 2.59 (0.83-1.09); PROTHROMBIN TIME (PATIENT) 30.8 SEC (9.7-13.0)
[2019-10-02] MEDS: ANASTROZOLE 1 MG TABLET PO SCH (09:15)
[2019-10-02] MEDS: SACUBITRIL/VALSARTAN 24 MG-26 MG TABLET PO SCH ×2 (09:15→21:21)
[2019-10-02] MEDS: CARVEDILOL 25 MG TABLET (FP) PO SCH ×2 (09:15→21:21)
--- NOTE | 2019-10-02 12:42 | PN ---
Progress Note (short form) - Note Progress Note: Active Medications Acetaminophen (Tylenol -) 650 mg PO Q6H PRN PRN Reason: PAIN LEVEL 3-10 Last Admin: 10/01/19 02:43 Dose: 650 mg Documented by: Anastrozole (Arimidex -) 1 mg PO DAILY [facility] Last Admin: 10/02/19 09:15 Dose: 1 mg Documented by: Atorvastatin Calcium (Lipitor -) 10 mg PO HS [facility] Last Admin: 10/01/19 21:00 Dose: Not Given Documented by: Bupropion HCl (Wellbutrin -) 75 mg PO Q12H [facility] Last Admin: 10/02/19 06:29 Dose: 75 mg Documented by: Carvedilol (Coreg -) 25 mg PO BID [facility] Last Admin: 10/02/19 09:15 Dose: 25 mg Documented by: Insulin Aspart (Novolog Vial Sliding Scale -) [facility] Last Admin: 10/02/19 06:11 Dose: Not Given Documented by: Levofloxacin (Levaquin -) 250 mg PO DAILY@0600 [facility] Last Admin: 10/02/19 06:29 Dose: 250 mg Documented by: Melatonin (Melatonin) 5 mg PO HS PRN PRN Reason: INSOMNIA Last Admin: 10/01/19 20:29 Dose: 5 mg Documented by: Metformin HCl (Glucophage Xr -) 500 mg PO DAILY@0700 [facility] Last Admin: 10/02/19 06:29 Dose: 500 mg Documented by: Sacubitril/Valsartan (Entresto 24 Mg-26 Mg Tablet) 1 tab PO BID [facility] Last Admin: 10/02/19 09:15 Dose: 1 tab Documented by: Tramadol HCl (Ultram -) 50 mg PO Q6H PRN PRN Reason: PAIN LEVEL 4 - 6 Last Admin: 10/01/19 22:41 Dose: 50 mg Documented by: Warfarin Sodium (Coumadin -) 5 mg PO DAILY@1800 [facility] Last Admin: 10/01/19 17:02 Dose: 5 mg Documented by: Laboratory Results - last 24 hr 10/01/19 10/01/19 10/02/19 12:30 12:30 05:21 WBC 6.6 RBC 2.45 L Hgb 8.0 L Hct 24.3 L MCV 99.1 H MCH 32.8 MCHC 33.1 RDW 15.6 Plt Count 201 MPV 7.9 PT with INR 30.20 H INR 2.54 H POC Glucometer 88 10/02/19 05:55 WBC RBC Hgb Hct MCV MCH MCHC RDW Plt Count MPV PT with INR 30.80 H INR 2.59 H POC Glucometer Vital Signs Temperature 97.8 F 10/02/19 09:17 Pulse Rate 77 10/02/19 09:17 Respiratory Rate 20 10/02/19 09:17 Blood Pressure 143/75 10/02/19 09:17 O2 Sat by Pulse Oximetry (%) 96 10/02/19 09:17 CC: Lt shoulder ache ```````````````````````````````````` skin--no new lesions; denuded skin on Bx lesion of inner mid Lt calf eyes--anicteric heart--RR lungs--grossly clear abd--soft, NT, ND ext--no edema neuro--alert; coherent; speech is fluent; no gross motor deficits ``````````````````````````````````````````````````````` Summ > gait dysf--in the wake of her dehydration and being chair-bedridden; 2nd to deconditioning; will need short term rehab. Denied by Rina; spoke with Kerry (ANG) who stated that KEVIN sent to the [facility] and are awaiting insurance approval; she stated that there was no need to convert her to inpt status because "there is nothing that we doing to justify inpatient status" at this time.. > Hypotension--corrected with IVf. > dehydration-- was intravasc depleted; as per low BP and high Bun/Cr but now improved: will avoid excess IVF as she is prone to CHF due to low Ej Fx. > Anemia--stool for OB negative; Hgb above 8, has declined invasive diagn studies > ASHD--low Ej State; most recent one done here at [facility] a few months ago again showed diminished Ej FX; indicating HF with low Ej FX; and was placed on entresto which she will continue to need; CXR did not show any presence of CHF or effusion PLAN: entresto added to BB; will titrate up the Coreg to 25mg BID > DM--eating better; she still is non complaint as she continues to drink sugary sodas; BS is 88 today > Shoulder pain--Xray shows a spur like lesion; no other pathology > Lt Leg wound infection--overlying a biopsied BC skin Ca; on dual Abs; culture taken shows no presence of msSA or Ecoli; Abs stopped > Custodial a/c--for stroke prophylaxis; cont warfarin as INR in good range > Constipation--had BM. ~~~~~~~~~~~~~~ dr Caputo Problem List - Problems (1) Hypotension Code(s): I95.9 - HYPOTENSION, UNSPECIFIED Qualifiers: Hypotension type: hypotension due to hypovolemia Qualified Code(s): I95.89 - Other hypotension; E86.1 - Hypovolemia (2) Dehydration Code(s): E86.0 - DEHYDRATION (3) Anemia Code(s): D64.9 - ANEMIA, UNSPECIFIED Qualifiers: Anemia type: other cause Other causes of anemia: other cause, not classified Qualified Code(s): D64.89 - Other specified anemias (4) Anticoagulant long-term use Code(s): Z79.01 - TELEMARKETING AGENT (CURRENT) USE OF 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 (5) Breast cancer, left Code(s): C50.912 - MALIGNANT NEOPLASM OF UNSPECIFIED SITE OF LEFT FEMALE BREAST Qualifiers: Breast location: unspecified site of breast Estrogen receptor status: unspecified Patient sex: female Qualified Code(s): C50.912 - Malignant neoplasm of unspecified site of left female breast (6) COPD (chronic obstructive pulmonary disease) Code(s): J44.9 - CHRONIC OBSTRUCTIVE PULMONARY DISEASE, UNSPECIFIED Qualifiers: COPD type: unspecified COPD Qualified Code(s): J44.9 - Chronic obstructive pulmonary disease, unspecified (7) CHF (congestive heart failure) Code(s): I50.9 - HEART FAILURE, UNSPECIFIED Qualifiers: Heart failure type: systolic Heart failure chronicity: chronic Qualified Code(s): I50.22 - Chronic systolic (congestive) heart failure (8) Depression Code(s): F32.9 - MAJOR DEPRESSIVE DISORDER, SINGLE EPISODE, UNSPECIFIED Qualifiers: Depression Type: major depressive disorder Major depression episode severity: unspecified (9) Diabetes mellitus type 2, noninsulin dependent Code(s): E11.9 - TYPE 2 DIABETES MELLITUS WITHOUT COMPLICATIONS (11) Visual impairment Code(s): H54.7 - UNSPECIFIED VISUAL LOSS (12) Infected wound Code(s): T14.8XXA - OTHER INJURY OF UNSPECIFIED BODY REGION, INITIAL ENCOUNTER; L08.9 - LOCAL INFECTION OF THE SKIN AND SUBCUTANEOUS TISSUE, UNSP (13) Skin neoplasm malignant Code(s): C44.90 - UNSPECIFIED MALIGNANT NEOPLASM OF SKIN, UNSPECIFIED (14) Elderly person living alone Code(s): Z60.2 - PROBLEMS RELATED TO LIVING ALONE
--- NOTE | 2019-10-02 14:34 | PN ---
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 Her BP was 90/50 sitting and 80/40 standing. She was not able to ambulate w/o assist. She was sent to the ER via EM S who found her BP to be low as well. In the ER, her chemistry showed her to be dehydrated, and she was given IVF with improvement of her BP. She feels less dizzy on day of admission. She denies CP; SOB, and she ate well. Prior to admission, she denied any abd pains, n-v, or diarrhea. She began to feel weak several days ago. She also has history of dilated nonischemic cardiomyopathy and LV systolic dysfunction. She was admitted in the past with sigmoid perforation secondary to C. Diff megacolon. She underwent sigmoid resection with colostomy (Hartmans procedure) and was hospitalized for sepsis and respiratory failure. She was also hospitalized for acute pulmonary edema. She had abdominal CT which incidentally showed bilateral pleural effusion and this has been followed closely by her PMD. Since then, she has had reversal of the colostomy and ventral hernia repair. S hewas found to have severe LV systolic dysfunction with low LVEF and wasstarted on Entresto and Epleronone which shehastolerated. Most recent echocardiography was done in July 22, 2019 and it revealed severe LV systolic dysfunction with global hypokinesia and severe MR, last office visit 04/29/2019. 09/29: feels much better, has had PT, no dizziness/CP/SOB BP has increased; Cr better;Occult blood; neg; Covid: negative - Current Medication List Current Medications: Active Medications Acetaminophen (Tylenol -) 650 mg PO Q6H PRN PRN Reason: PAIN LEVEL 3-10 Last Admin: 10/01/19 02:43 Dose: 650 mg Documented by: Anastrozole (Arimidex -) 1 mg PO DAILY [facility] Last Admin: 10/02/19 09:15 Dose: 1 mg Documented by: Atorvastatin Calcium (Lipitor -) 10 mg PO HS [facility] Last Admin: 10/01/19 21:00 Dose: Not Given Documented by: Bupropion HCl (Wellbutrin -) 75 mg PO Q12H [facility] Last Admin: 10/02/19 06:29 Dose: 75 mg Documented by: Carvedilol (Coreg -) 25 mg PO BID [facility] Last Admin: 10/02/19 09:15 Dose: 25 mg Documented by: Insulin Aspart (Novolog Vial Sliding Scale -) [facility]; Protocol Last Admin: 10/02/19 06:11 Dose: Not Given Documented by: Levofloxacin (Levaquin -) 250 mg PO DAILY@0600 [facility] Last Admin: 10/02/19 06:29 Dose: 250 mg Documented by: Melatonin (Melatonin) 5 mg PO HS PRN PRN Reason: INSOMNIA Last Admin: 10/01/19 20:29 Dose: 5 mg Documented by: Metformin HCl (Glucophage Xr -) 500 mg PO DAILY@0700 [facility] Last Admin: 10/02/19 06:29 Dose: 500 mg Documented by: Sacubitril/Valsartan (Entresto 24 Mg-26 Mg Tablet) 1 tab PO BID [facility] Last Admin: 10/02/19 09:15 Dose: 1 tab Documented by: Tramadol HCl (Ultram -) 50 mg PO Q6H PRN PRN Reason: PAIN LEVEL 4 - 6 Last Admin: 10/01/19 22:41 Dose: 50 mg Documented by: Warfarin Sodium (Coumadin -) 5 mg PO DAILY@1800 [facility] Last Admin: 10/01/19 17:02 Dose: 5 mg Documented by: - Objective Vital Signs: Vital Signs Temperature 98.3 F 10/02/19 13:37 Pulse Rate 65 10/02/19 13:37 Respiratory Rate 20 10/02/19 13:37 Blood Pressure 105/54 L 10/02/19 13:37 O2 Sat by Pulse Oximetry (%) 98 10/02/19 13:37 HENT: Yes: WNL, Atraumatic, Normocephalic Neck: Yes: WNL, Supple, Trachea Midline Cardiovascular: Yes: WNL, Regular Rate and Rhythm Respiratory: Yes: WNL, Regular, CTA Bilaterally Gastrointestinal: Yes: WNL, Normal Bowel Sounds Genitourinary: Yes: WNL Musculoskeletal: Yes: WNL Extremities: Yes: WNL Edema: No Integumentary: Yes: WNL Labs: CBC, BMP 10/01/19 12:30 09/30/19 10:50 INR, PTT INR 2.59 (0.83-1.09) H 10/02/19 05:55 Assessment/Plan Assessment/Plan Echocardiogram: 07/22/2019 Severely decreased LVEF 30-35%, severe MR, mild-mod TR RVSP 30-40 mmHg, mild Mg 11 mmHg Echocardiography (12/27/18): Normal LV systolic function, LVEF 55-60%, mild , mild MR. Nuclear MPI (12/28/18): Normal perfusion with LVEF 60%. Carotid Doppler(05/04/18): Mild right atherosclerotic plaque and moderate left atherosclerotic plaque in the common carotid extending into internal carotid artery. 12/24/2016 Echo: Normal LV size with moderate decreased LV fxn, mild pericardial effusion, mild ASHLEY, mod MR, mild MS, TR 01/28/2018 Echo: Normal LV size with severely decreased LV fxn EF 30-35%, normal RV size and fxn, mod LAE, mod MR 1. Orthostatic near syncope 2. Nonischemic cardiomyopathy LVEF 30-35% 3. Severe MR 4. History of CVA with left MCA thrombus and therapeutic INR 5. 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 COPD with Chronic Hypoxic Respiratory Failure and long smoking history 7. HTN 8. Hypercholesterolemia 9. Anemia 10. Type 2 DM 11. Renal artery stenosis 12. CKD 13. Mild 14. Breast cancer PLAN: 1. Hold furosemide ;d/c IVF 2. Increase Carvedilol 25 mg mg BID and Lipitor 40 mg QHS, on Entresto, resume eplerenone once renal fxn stabilizes 3. Continue Warfarin as per INR 2-3 4. O2 to keep SpO2 >90% and inhaled bronchodilators as needed 5. Transfuse to maintain Hgb>8.0 6. Encourage ambulation /PT 7. Eventual f/u with Dr. Mahoney upon d/c , coverage dr. Mahoney
[2019-10-02] MEDS: WARFARIN NA 5 MG TABLET PO SCH (17:40)
[2019-10-02] MEDS: MELATONIN 5 MG TABLETS PO PRN (21:21)
[2019-10-02] MEDS: ATORVASTATIN CA 10 MG TABLET (FP) PO SCH (21:21)
[2019-10-03] MEDS ORDERED: PT OWN MED DRAWER 7, Y5N ONE ×6 (05:27→16:48)
[2019-10-03] MEDS: INSULIN SLIDING SCALE (NOVOLOG) 1 VIAL SQ SCH ×2 (06:10→16:55)
[2019-10-03] MEDS: buPROPion HCL 75 MG TABLET PO SCH ×2 (06:10→17:00)
[2019-10-03 06:45] LABS: HEMATOCRIT 22.9 % (32.4-45.2); HEMOGLOBIN 7.5 GM/dL (10.7-15.3); MCH 32.2 pg (25.7-33.7); MCHC 32.9 g/dl (32.0-36.0); MEAN CELL VOLUME 97.8 fl (80-96); MEAN PLT VOLUME 7.5 fl (7.5-11.1); PLATELET COUNT 184 K/MM3 (134-434); RBC 2.35 M/mm3 (3.60-5.2); RDW 15.7 % (11.6-15.6); WHITE BLOOD COUNT 6.3 K/mm3 (4.0-10.0)
[2019-10-03 07:11] LABS: BLOOD UREA NITROGEN 44.9 mg/dL (7-18); CALCIUM 8.8 mg/dL (8.5-10.1); CREATININE 1.7 mg/dL (0.55-1.3); POTASSIUM 4.8 mmol/L (3.5-5.1)
[2019-10-03 08:37] LABS: INR 2.76 (0.83-1.09); PROTHROMBIN TIME (PATIENT) 32.9 SEC (9.7-13.0)
[2019-10-03] MEDS: CARVEDILOL 25 MG TABLET (FP) PO SCH ×2 (09:28→21:08)
[2019-10-03] MEDS: SACUBITRIL/VALSARTAN 24 MG-26 MG TABLET PO SCH ×2 (09:28→21:08)
[2019-10-03] MEDS: ANASTROZOLE 1 MG TABLET PO SCH (09:28)
--- NOTE | 2019-10-03 09:33 | PN ---
Progress Note, Physician History of Present Illness: Orthostatic near syncope and weakness resolved, tolerated PT, denies dyspnea. - Current Medication List Current Medications: Active Medications Acetaminophen (Tylenol -) 650 mg PO Q6H PRN PRN Reason: PAIN LEVEL 3-10 Last Admin: 10/01/19 02:43 Dose: 650 mg Documented by: Anastrozole (Arimidex -) 1 mg PO DAILY [facility] Last Admin: 10/03/19 09:28 Dose: 1 mg Documented by: Atorvastatin Calcium (Lipitor -) 10 mg PO HS [facility] Last Admin: 10/02/19 21:21 Dose: 10 mg Documented by: Bupropion HCl (Wellbutrin -) 75 mg PO Q12H [facility] Last Admin: 10/03/19 06:10 Dose: 75 mg Documented by: Carvedilol (Coreg -) 25 mg PO BID [facility] Last Admin: 10/03/19 09:28 Dose: 25 mg Documented by: Insulin Aspart ([facility]iding [facility] -) [facility]; Protocol Last Admin: 10/03/19 06:10 Dose: Not Given Documented by: Levofloxacin (Levaquin -) 250 mg PO DAILY@0600 [facility] Last Admin: 10/03/19 06:10 Dose: 250 mg Documented by: Melatonin (Melatonin) 5 mg PO HS PRN PRN Reason: INSOMNIA Last Admin: 10/02/19 21:21 Dose: 5 mg Documented by: Metformin HCl (Glucophage Xr -) 500 mg PO DAILY@0700 [facility] Last Admin: 10/03/19 06:10 Dose: 500 mg Documented by: Sacubitril/Valsartan (Entresto 24 Mg-26 Mg Tablet) 1 tab PO BID [facility] Last Admin: 10/03/19 09:28 Dose: 1 tab Documented by: Tramadol HCl (Ultram -) 50 mg PO Q6H PRN PRN Reason: PAIN LEVEL 4 - 6 Last Admin: 10/01/19 22:41 Dose: 50 mg Documented by: Warfarin Sodium (Coumadin -) 5 mg PO DAILY@1800 [facility] Last Admin: 10/02/19 17:40 Dose: 5 mg Documented by: - Objective Vital Signs: Vital Signs Temperature 98.4 F 10/03/19 08:24 Pulse Rate 67 10/03/19 08:24 Respiratory Rate 18 10/03/19 08:24 Blood Pressure 123/59 L 10/03/19 08:24 O2 Sat by Pulse Oximetry (%) 98 10/03/19 09:19 Constitutional: Yes: No Distress, Calm Neck: Yes: Supple Cardiovascular: Yes: Regular Rate and Rhythm, Murmur (2/6 SM) Respiratory: Yes: Regular, CTA Bilaterally Gastrointestinal: Yes: Normal Bowel Sounds, Soft Edema: No Labs: CBC, BMP 10/03/19 05:30 10/03/19 05:30 INR, PTT INR 2.76 (0.83-1.09) H 10/03/19 05:30 - ....Imaging EKG: Report Reviewed (Tele: SR) Problem List - Problems (1) Hypotension Code(s): I95.9 - HYPOTENSION, UNSPECIFIED Qualifiers: Hypotension type: hypotension due to hypovolemia Qualified Code(s): I95.89 - Other hypotension; E86.1 - Hypovolemia (2) Acute on chronic systolic congestive heart failure Code(s): I50.23 - ACUTE ON CHRONIC SYSTOLIC (CONGESTIVE) HEART FAILURE (3) Anticoagulant long-term use Code(s): Z79.01 - FISHER SEAL (CURRENT) USE OF 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 (4) COPD without exacerbation Code(s): J44.9 - CHRONIC OBSTRUCTIVE PULMONARY DISEASE, UNSPECIFIED (5) Cancer of left breast Code(s): C50.912 - MALIGNANT NEOPLASM OF UNSPECIFIED SITE OF LEFT FEMALE BREAST Qualifiers: Breast location: upper outer quadrant of breast Estrogen receptor status: positive Patient sex: female Qualified Code(s): C50.412 - Malignant neoplasm of upper-outer quadrant of left female breast (6) Diabetes mellitus type 2, noninsulin dependent Code(s): E11.9 - TYPE 2 DIABETES MELLITUS WITHOUT COMPLICATIONS (8) Hypercholesterolemia Code(s): E78.00 - PURE HYPERCHOLESTEROLEMIA, UNSPECIFIED (9) Hypertensive heart and renal disease Qualifiers: Heart failure presence: without heart failure Hypertensive chronic kidney disease stage: stage 1-4 or unspecified chronic kidney disease Qualified Code(s): I13.10 - Hypertensive heart and chronic kidney disease without heart failure, with stage 1 through stage 4 chronic kidney disease, or unspecified chronic kidney disease (10) Visual impairment Code(s): H54.7 - UNSPECIFIED VISUAL LOSS Assessment/Plan Echocardiogram: 07/22/2019 Severely decreased LVEF 30-35%, severe MR, mild-mod TR RVSP 30-40 mmHg, mild Mg 11 mmHg Echocardiography (12/27/18): Normal LV systolic function, LVEF 55-60%, mild , mild MR. Nuclear MPI (12/28/18): Normal perfusion with LVEF 60%. Carotid Doppler(05/04/18): Mild right atherosclerotic plaque and moderate left atherosclerotic plaque in the common carotid extending into internal carotid artery. 12/24/2016 Echo: Normal LV size with moderate decreased LV fxn, mild pericardial effusion, mild ASHLEY, mod MR, mild AL, TR 01/28/2018 Echo: Normal LV size with severely decreased LV fxn EF 30-35%, normal RV size and fxn, mod LAE, mod MR 1. Orthostatic near syncope resolved 2. Nonischemic cardiomyopathy LVEF 30-35% 3. Severe MR 4. History of CVA with left MCA thrombus and therapeutic INR 5. 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 COPD with Chronic Hypoxic Respiratory Failure and long smoking history 7. HTN 8. Hypercholesterolemia 9. Anemia 10. Type 2 DM 11. Renal artery stenosis 12. Acute on CKD improved 13. Mild 14. Breast cancer PLAN: 1. Holding furosemide 2. Increased Carvedilol 25 mg mg BID and Lipitor 10 mg QHS, continue Entresto 24/26 bid and resume eplerenone 25 qd once renal fxn stabilizes 3. Continue Warfarin as per INR 2-3, monitor Hgb 4. O2 to keep SpO2 >90% and inhaled bronchodilators as needed 5. Transfuse to maintain Hgb>8.0 6. Encourage ambulation /PT 7. Eventual f/u with Dr. Mahoney upon d/c ,
--- NOTE | 2019-10-03 14:17 | PN ---
Progress Note (short form) - Note Progress Note: Active Medications Acetaminophen (Tylenol -) 650 mg PO Q6H PRN PRN Reason: PAIN LEVEL 3-10 Last Admin: 10/01/19 02:43 Dose: 650 mg Documented by: Anastrozole (Arimidex -) 1 mg PO DAILY [facility] Last Admin: 10/03/19 09:28 Dose: 1 mg Documented by: Atorvastatin Calcium (Lipitor -) 10 mg PO HS [facility] Last Admin: 10/02/19 21:21 Dose: 10 mg Documented by: Bupropion HCl (Wellbutrin -) 75 mg PO Q12H [facility] Last Admin: 10/03/19 06:10 Dose: 75 mg Documented by: Carvedilol (Coreg -) 25 mg PO BID [facility] Last Admin: 10/03/19 09:28 Dose: 25 mg Documented by: Insulin Aspart ([facility] Sliding [facility] -) [facility]; Protocol Last Admin: 10/03/19 06:10 Dose: Not Given Documented by: Levofloxacin (Levaquin -) 250 mg PO DAILY@0600 [facility] Last Admin: 10/03/19 06:10 Dose: 250 mg Documented by: Melatonin (Melatonin) 5 mg PO HS PRN PRN Reason: INSOMNIA Last Admin: 10/02/19 21:21 Dose: 5 mg Documented by: Metformin HCl (Glucophage Xr -) 500 mg PO DAILY@0700 [facility] Last Admin: 10/03/19 06:10 Dose: 500 mg Documented by: Sacubitril/Valsartan (Entresto 24 Mg-26 Mg Tablet) 1 tab PO BID [facility] Last Admin: 10/03/19 09:28 Dose: 1 tab Documented by: Tramadol HCl (Ultram -) 50 mg PO Q6H PRN PRN Reason: PAIN LEVEL 4 - 6 Last Admin: 10/01/19 22:41 Dose: 50 mg Documented by: Warfarin Sodium (Coumadin -) 5 mg PO DAILY@1800 [facility] Last Admin: 10/02/19 17:40 Dose: 5 mg Documented by: Laboratory Results - last 24 hr 10/03/19 10/03/19 10/03/19 05:30 05:30 05:30 WBC 6.3 RBC 2.35 L Hgb 7.5 L Hct 22.9 L MCV 97.8 H MCH 32.2 MCHC 32.9 RDW 15.7 H Plt Count 184 MPV 7.5 PT with INR 32.90 H INR 2.76 H Sodium 141 Potassium 4.8 Chloride 112 H Carbon Dioxide 23 Anion Gap 5 L BUN 44.9 H Creatinine 1.7 H Est GFR (CKD-EPI)AfAm 34.80 Est GFR (CKD-EPI)NonAf 30.03 Random Glucose 99 Calcium 8.8 Crossmatch 10/03/19 12:28 WBC RBC Hgb Hct MCV MCH MCHC RDW Plt Count MPV PT with INR INR Sodium Potassium Chloride Carbon Dioxide Anion Gap BUN Creatinine Est GFR (CKD-EPI)AfAm Est GFR (CKD-EPI)NonAf Random Glucose Calcium Crossmatch See Detail Vital Signs Temperature 98.4 F 10/03/19 08:24 Pulse Rate 67 10/03/19 08:24 Respiratory Rate 18 10/03/19 08:24 Blood Pressure 123/59 L 10/03/19 08:24 O2 Sat by Pulse Oximetry (%) 98 10/03/19 09:19 CC: no new complaints ```````````````````````````````````` skin--no new lesions; denuded skin on Bx lesion of inner mid Lt calf eyes--asymmetric, anicteric heart--RR lungs--grossly clear abd--soft, NT, ND ext--trace edema neuro--alert; coherent; speech is fluent; no gross motor deficits ``````````````````````````````````````````````````````` Summ > Anemia--stool for OB have been repeatedly negative; Hgb now at 7.5 and she feels "weak" PLAN: will need to transfuse 1 U of PC before d/c; will obt Heme consult for possible BM Bx, as th > gait dysf--in the wake of her dehydration and being chair-bedridden; 2nd to deconditioning; will need short term rehab. Denied by Rina; spoke with Kerry (ANG) who stated that KEVIN sent to the [facility] and are awaiting insurance approval. > Hypotension--corrected with IVf. > dehydration-- was intravasc depleted; as per low BP, but Bun-cr has risen a bit since off the IVF; she was advised to increase her fluid intake a bit more > ASHD--low Ej State; most recent one done here at [facility] a few months ago again showed diminished Ej FX; indicating HF with low Ej FX; and was placed on entresto which she will continue to need; CXR did not show any presence of CHF or effusion PLAN: entresto added to BB; will titrate up the Coreg to 25mg BID > DM--eating better; she still is non complaint as she continues to drink sugary sodas but BGMs not out of control > Shoulder pain--Xray shows a spur like lesion; no other pathology > Lt Leg wound infection--overlying a biopsied BC skin Ca; on dual Abs; culture taken shows no presence of msSA or Ecoli; Abs stopped > Skilled Nursing a/c--for stroke prophylaxis; cont warfarin as INR in good range > Constipation--had BM. ~~~~~~~~~~~~~~ dr Caputo Problem List - Problems (1) Hypotension Code(s): I95.9 - HYPOTENSION, UNSPECIFIED Qualifiers: Hypotension type: hypotension due to hypovolemia Qualified Code(s): I95.89 - Other hypotension; E86.1 - Hypovolemia (2) Dehydration Code(s): E86.0 - DEHYDRATION (3) Anemia Code(s): D64.9 - ANEMIA, UNSPECIFIED Qualifiers: Anemia type: other cause Other causes of anemia: other cause, not classified Qualified Code(s): D64.89 - Other specified anemias (4) Anticoagulant long-term use Code(s): Z79.01 - ICER HAND (CURRENT) USE OF 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 (5) Breast cancer, left Code(s): C50.912 - MALIGNANT NEOPLASM OF UNSPECIFIED SITE OF LEFT FEMALE BREAST Qualifiers: Breast location: unspecified site of breast Estrogen receptor status: unspecified Patient sex: female Qualified Code(s): C50.912 - Malignant neoplasm of unspecified site of left female breast (6) COPD (chronic obstructive pulmonary disease) Code(s): J44.9 - CHRONIC OBSTRUCTIVE PULMONARY DISEASE, UNSPECIFIED Qualifiers: COPD type: unspecified COPD Qualified Code(s): J44.9 - Chronic obstructive pulmonary disease, unspecified (7) CHF (congestive heart failure) Code(s): I50.9 - HEART FAILURE, UNSPECIFIED Qualifiers: Heart failure type: systolic Heart failure chronicity: chronic Qualified Code(s): I50.22 - Chronic systolic (congestive) heart failure (8) Depression Code(s): F32.9 - MAJOR DEPRESSIVE DISORDER, SINGLE EPISODE, UNSPECIFIED Qualifiers: Depression Type: major depressive disorder Major depression episode severity: unspecified (9) Diabetes mellitus type 2, noninsulin dependent Code(s): E11.9 - TYPE 2 DIABETES MELLITUS WITHOUT COMPLICATIONS (11) Visual impairment Code(s): H54.7 - UNSPECIFIED VISUAL LOSS (12) Infected wound Code(s): T14.8XXA - OTHER INJURY OF UNSPECIFIED BODY REGION, INITIAL ENCOUNTER; L08.9 - LOCAL INFECTION OF THE SKIN AND SUBCUTANEOUS TISSUE, UNSP (13) Skin neoplasm malignant Code(s): C44.90 - UNSPECIFIED MALIGNANT NEOPLASM OF SKIN, UNSPECIFIED (14) Elderly person living alone Code(s): Z60.2 - PROBLEMS RELATED TO LIVING ALONE
[2019-10-03] MEDS: WARFARIN NA 5 MG TABLET PO SCH (17:00)
--- NOTE | 2019-10-03 20:34 | CONSULT ---
Consultation: REQUESTING PROVIDER: Dr. Caputo CONSULT REQUEST: We have been asked to medically evaluate this patient for Anemia. HISTORY OF PRESENT ILLNESS: Pt. is a 68 y.o. F w/ PMHx. of COPD, DM, HTN, HFrEF (EF:30-35%), Hx. of CVAs, R. Eye Blindness, L.Breast CA(s/p lumpectomy, no chemo or RT), HLD and GERD admitted for weakness. We are called to assess for anemia requiring blood transfusion. Pt. states that her anemia started after her colectomy in 2016 for a bowel perforation (2/2 Cdiff?) she was found to have. Pt. had colectomy reversed in 2018. Pt. has required multiple transfusions within the past year for symptomatic anemia. Pt. was seen by Heme/Onc in 2017 and Pt. was found to have mildly increased kappa chains without M-Steven. Hemolysis work-up in June was negative. Pt. states that she last saw Dr. Momin (Oncologist at [facility]) 6 months ago and has had stable Breast CA for 4 years. Pt. states she had PET Scan within the last year but is unsure of the results. Pt. states that she had Pap Smear 30+ years ago was and has always been negative and mammogram last year which showed decreasing mass? size. Pt. has never had colonoscopy and has refused during last admission. FOBT here has been negative. Pt. denies an blood in her stool or urine. Pt. denies recent weight change, night sweats, or constipation. Pt. endorses a good appetite. Pt. has significant family history for cancer including Breast CA in her sister @ 42y.o. (with lung, and uterine denovo vs. metastatic involvement), Colon CA in her mother @ 59y.o., Sinus(nose) CA in her bother @56 and numerous maternal aunts and uncles. Pt. has 2 children. Pt. denies ever having genetic testing nor has her children. Pt. endorses smoking 1/2 PPD for 40+ years. REVIEW OF SYSTEMS: As above PHYSICAL EXAMINATION Vital Signs - 24 hr 10/02/19 10/02/19 10/03/19 21:00 22:00 02:00 Temperature 98.6 F 98.7 F Pulse Rate 74 67 Respiratory 20 20 20 Rate Blood Pressure 125/61 116/46 L O2 Sat by Pulse 99 99 100 Oximetry (%) 10/03/19 10/03/19 10/03/19 06:00 08:24 09:19 Temperature 98.2 F 98.4 F Pulse Rate 64 67 Respiratory 20 18 Rate Blood Pressure 121/50 L 123/59 L O2 Sat by Pulse 98 98 Oximetry (%) 10/03/19 10/03/19 14:00 18:00 Temperature 97.5 F L 97.6 F Pulse Rate 73 82 Respiratory 20 20 Rate Blood Pressure 127/46 L 149/54 L O2 Sat by Pulse 97 98 Oximetry (%) GENERAL: Awake, alert, and fully oriented, in no acute distress. HEAD: Normal with no signs of trauma. EYES: R. Eye blindness, cloudy iris EARS, NOSE, THROAT: Moist mucous membranes. LUNGS: Breath sounds equal, clear to auscultation bilaterally anteriorly. Mild wheezing, no crackles. No accessory muscle use. HEART: Regular rate and rhythm, normal S1 and S2 with systolic murmur ABDOMEN: Soft, obese, nontender, not distended, normoactive bowel sounds, no guarding, no rebound, no masses. Hepatomegaly?. UPPER EXTREMITIES: warm, well-perfused. No cyanosis. No peripheral edema. LOWER EXTREMITIES: 2+ dorsal pedal pulses, warm, well-perfused. No calf tenderness. No peripheral edema. NEUROLOGICAL: Normal speech, gait not assessed PSYCHIATRIC: Cooperative. Good eye contact. Appropriate mood and affect. SKIN: Warm, dry, normal turgor for age. Laboratory Results - last 24 hr 10/03/19 10/03/19 10/03/19 05:30 05:30 05:30 WBC 6.3 RBC 2.35 L Hgb 7.5 L Hct 22.9 L MCV 97.8 H MCH 32.2 MCHC 32.9 RDW 15.7 H Plt Count 184 MPV 7.5 PT with INR 32.90 H INR 2.76 H Sodium 141 Potassium 4.8 Chloride 112 H Carbon Dioxide 23 Anion Gap 5 L BUN 44.9 H Creatinine 1.7 H Est GFR (CKD-EPI)AfAm 34.80 Est GFR (CKD-EPI)NonAf 30.03 POC Glucometer Random Glucose 99 Calcium 8.8 Blood Type Antibody Screen Crossmatch 10/03/19 10/03/19 12:28 16:54 WBC RBC Hgb Hct MCV MCH MCHC RDW Plt Count MPV PT with INR INR Sodium Potassium Chloride Carbon Dioxide Anion Gap BUN Creatinine Est GFR (CKD-EPI)AfAm Est GFR (CKD-EPI)NonAf POC Glucometer 154 Random Glucose Calcium Blood Type A POSITIVE Antibody Screen Negative Crossmatch See Detail Active Medications Generic Name Dose Route Start Last Admin Trade Name Freq PRN Reason Stop Dose Admin Acetaminophen 650 mg 09/27/19 23:48 10/01/19 02:43 Tylenol - PO 650 mg Q6H PRN Administration PAIN LEVEL 3-10 Anastrozole 1 mg 09/28/19 10:00 10/03/19 09:28 Arimidex - PO 1 mg DAILY [facility] Administration Atorvastatin Calcium 10 mg 09/28/19 22:00 10/02/19 21:21 Lipitor - PO 10 mg HS [facility] Administration Bupropion HCl 75 mg 09/27/19 18:00 10/03/19 17:00 Wellbutrin - PO 75 mg Q12H [facility] Administration Carvedilol 25 mg 10/02/19 10:00 10/03/19 09:28 Coreg - PO 25 mg BID [facility] Administration Insulin Aspart 1 vial 09/28/19 07:00 10/03/19 16:55 Novolog Vial Sliding Scale - SQ Not Given BIDAC [facility] Protocol Levofloxacin 250 mg 10/01/19 23:00 10/03/19 06:10 Levaquin - PO 250 mg DAILY@0600 [facility] Administration Melatonin 5 mg 09/27/19 23:06 10/02/19 21:21 Melatonin PO 5 mg HS PRN Administration INSOMNIA Metformin HCl 500 mg 09/28/19 07:00 10/03/19 06:10 Glucophage Xr - PO 500 mg DAILY@0700 [facility] Administration Sacubitril/Valsartan 1 tab 09/30/19 22:00 10/03/19 09:28 Entresto 24 Mg-26 Mg Tablet PO 1 tab BID [facility] Administration Tramadol HCl 50 mg 09/29/19 03:27 10/01/19 22:41 Ultram - PO 50 mg Q6H PRN Administration PAIN LEVEL 4 - 6 Warfarin Sodium 5 mg 09/27/19 18:00 10/03/19 17:00 Coumadin - PO 5 mg DAILY@1800 [facility] Administration ASSESSMENT/PLAN: Pt. is a 68 y.o. F w/ PMHx. of COPD, DM, HTN, HFrEF (EF:30-35%), Hx. of CVAs, R. Eye Blindness, L.Breast CA(s/p lumpectomy, no chemo or RT), HLD and GERD admitted for weakness. #Macrocytic Anemia MCV: 97.8 borderline macrocytosis f/u B12 and Folate, Iron studies, reticulocytes, and LDH Daily PT/INR Pt. is s/p 1 unit of pRBCs likely 2/2 chronic disease and CKD, macrocytosis may be secondary to reticulocytosis keep HgB above 8 given cardiac comorbidities Hx. of kappa light chains but no M-spike Pt. will likely require bone marrow biopsy, will discuss with IR, will discuss holding anticoagulation Pt. will require following up mediastinal nodes with repeat imaging after discharge Dispo: We will continue to follow the patient. Thank you for this consultative opportunity. Visit type - Medication Review Med list reviewed for High Risk Meds patients 65 and older: Yes - Emergency Visit Emergency Visit: Yes ED Registration Date: 10/03/19 Care time: The patient presented to the Emergency Department on the above date and was hospitalized for further evaluation of their emergent condition. - New Patient This patient is new to me today: Yes Date on this admission: 10/03/19 - Critical Care Critical Care patient: No ATTENDING PHYSICIAN STATEMENT I saw and evaluated the patient. I reviewed the resident's note and discussed the case with the resident. I agree with the resident's findings and plan as documented. SUBJECTIVE: OBJECTIVE: ASSESSMENT AND PLAN:
[2019-10-03] MEDS: ATORVASTATIN CA 10 MG TABLET (FP) PO SCH (21:08)
[2019-10-03] MEDS: MELATONIN 5 MG TABLETS PO PRN (21:08)
--- NOTE | 2019-10-03 22:49 | PN ---
Teaching Attending Note Name of Resident: Luis Alberto Junior ATTENDING PHYSICIAN STATEMENT I saw and evaluated the patient. I reviewed the resident's note and discussed the case with the resident. I agree with the resident's findings and plan as documented. ASSESSMENT AND PLAN: 68 y.o. F w/ PMHx. of COPD, DM, HTN, HFrEF (EF:30-35%), Hx. of CVAs, R. Eye Blindness, L.Breast CA(s/p lumpectomy, no chemo or RT), HLD and GERD admitted for weakness. #Macrocytic Anemia MCV: 97.8 borderline macrocytosis f/u B12 and Folate, Iron studies, reticulocytes, and LDH will discuss with IR regarding bone marrow bx--- r/o MDS--fow/FISH/cytogenetics/myeloid molecular profile will need GI w/u aswell MEdiastinal adenopathy -- repeat CT chest
[2019-10-04] MEDS: traMADol HCL 50 MG TABLET PO PRN (00:49)
[2019-10-04] MEDS: INSULIN SLIDING SCALE (NOVOLOG) 1 VIAL SQ SCH ×2 (06:10→16:30)
[2019-10-04] MEDS: buPROPion HCL 75 MG TABLET PO SCH ×2 (06:10→19:34)
[2019-10-04 07:10] LABS: INR 2.8 (0.83-1.09); PROTHROMBIN TIME (PATIENT) 33.4 SEC (9.7-13.0)
--- NOTE | 2019-10-04 07:14 | PN ---
Progress Note (short form) - Note Progress Note: Chief Complaint: Events noted, notes reviewed, resting in bed comfortably reports persistent dyspnea, denies any chest discomfort History of Present Illness: Seen and examined on telemetry. Events noted, notes reviewed, resting in bed comfortably reports persistent dyspnea, denies any chest discomfort Medications: Current Medications Generic Name Dose Route Start Last Admin Trade Name Freq PRN Reason Stop Dose Admin Acetaminophen 650 mg 09/27/19 23:48 10/01/19 02:43 Tylenol - PO 650 mg Q6H PRN Administration PAIN LEVEL 3-10 Anastrozole 1 mg 09/28/19 10:00 10/03/19 09:28 Arimidex - PO 1 mg DAILY [facility] Administration Atorvastatin Calcium 10 mg 09/28/19 22:00 10/03/19 21:08 Lipitor - PO 10 mg HS [facility] Administration Bupropion HCl 75 mg 09/27/19 18:00 10/04/19 06:10 Wellbutrin - PO 75 mg Q12H [facility] Administration Carvedilol 25 mg 10/02/19 10:00 10/03/19 21:08 Coreg - PO 25 mg BID [facility] Administration Insulin Aspart 1 vial 09/28/19 07:00 10/04/19 06:10 Novolog Vial Sliding Scale - SQ Not Given BIDAC [facility] Protocol Melatonin 5 mg 09/27/19 23:06 10/03/19 21:08 Melatonin PO 5 mg HS PRN Administration INSOMNIA Metformin HCl 500 mg 09/28/19 07:00 10/04/19 06:10 Glucophage Xr - PO 500 mg DAILY@0700 [facility] Administration Sacubitril/Valsartan 1 tab 09/30/19 22:00 10/03/19 21:08 Entresto 24 Mg-26 Mg Tablet PO 1 tab BID [facility] Administration Tramadol HCl 50 mg 09/29/19 03:27 10/04/19 00:49 Ultram - PO 50 mg Q6H PRN Administration PAIN LEVEL 4 - 6 Warfarin Sodium 5 mg 09/27/19 18:00 10/03/19 17:00 Coumadin - PO 5 mg DAILY@1800 [facility] Administration Review of Systems Constitutional: denies Chills or Fever Respiratory: reports: Dyspnea Cardiovascular: As noted above Gastrointestinal: denies Nausea, Vomiting, Diarrhea or Constipation or Abdominal Discomfort Genitourinary: No Symptoms Reported Musculoskeletal: No Symptoms Reported Vital Signs: Last Vital Signs Temp Pulse Resp BP Pulse Ox 97.9 F 71 20 133/52 L 98 10/04/19 01:48 10/04/19 01:48 10/04/19 01:48 10/04/19 01:48 10/04/19 01:48 Intake & Output 10/01/19 10/02/19 10/03/19 10/04/19 23:59 23:59 23:59 23:59 Intake Total 980 960 340 100 Output Total 1200 1100 1800 Balance -220 -140 -1460 100 Neck: Supple Negative JVD Respiratory: Diminished Breath Sounds at the Bases Cardiovascular: S1 S2 Regular Rate Rhythm Gastrointestinal: Soft Benign Normal Bowel Sounds Ext: Negative Edema Labs: CBC, BMP 10/04/19 05:57 10/04/19 05:57 Assessment/Plan ASSESSMENT: 1. Near syncope, probable orthostatic hypotension, clinically resolved 2. Non-ischemic dilated cardiomyopathy with chronic class I-II [place] [employer] classification left ventricular failure, clinically compensated/euvolemic 3. Mitral valve regurgitation, severe 4. Aortic valve stenosis, mild 5. Hypertensive cardiovascular disease 6. Ute-[id number]-[id number] diabetes mellitus 7. Hypercholesterolemia 8. History of cerebrovascular disease related to left MCA thrombus with therapeutic INR 9. History of chronic hypoxic respiratory failure related to chronic obstructive pulmonary disease 10. History of Renal artery stenosis 11. Chronic kidney disease with acute exacerbation 12. Anemia, evaluation of which is currently in progress PLAN: 1. Continue to withhold Lasix therapy, to be resumed once renal function is at baseline and/or clinical heart failure syndrome is evident 2. Resume Inspra therapy once renal function is at baseline and/or clinical heart failure syndrome is evident 3. Continue Coreg at 25 mg twice daily 4. Continue Entresto and dose titration as hemodynamics tolerate 5. Continue Lipitor therapy 6. Continue Coumadin therapy maintaining INR between 2-3 with close monitoring of hemoglobin level (transfuse as needed to keep hemoglobin level equal or greater than 8.0) 7. Patient can be transferred to floor care from the cardiovascular point of view Ya Grant MD
[2019-10-04 07:19] LABS: BASO % 0.2 % (0-2.0); EOS % 2.3 % (0-4.5); HEMATOCRIT 25.9 % (32.4-45.2); HEMOGLOBIN 8.5 GM/dL (10.7-15.3); LYMPH % 13.7 % (8-40); MCH 31.2 pg (25.7-33.7); MCHC 32.8 g/dl (32.0-36.0); MEAN CELL VOLUME 95.3 fl (80-96); MEAN PLT VOLUME 7.7 fl (7.5-11.1); MONO % 5.2 % (3.8-10.2); NEUT % 78.6 % (42.8-82.8); PLATELET COUNT 189 K/MM3 (134-434); RBC 2.72 M/mm3 (3.60-5.2); RDW 17.9 % (11.6-15.6); WHITE BLOOD COUNT 7.2 K/mm3 (4.0-10.0)
[2019-10-04 08:16] LABS: BLOOD UREA NITROGEN 43.9 mg/dL (7-18); CALCIUM 8.5 mg/dL (8.5-10.1); CREATININE 1.5 mg/dL (0.55-1.3); POTASSIUM 4.8 mmol/L (3.5-5.1)
[2019-10-04] MEDS ORDERED: PT OWN MED DRAWER 7, Y5N ONE (08:27)
[2019-10-04] MEDS: SACUBITRIL/VALSARTAN 24 MG-26 MG TABLET PO SCH ×2 (09:10→22:52)
[2019-10-04] MEDS: ANASTROZOLE 1 MG TABLET PO SCH (09:10)
[2019-10-04] MEDS: CARVEDILOL 25 MG TABLET (FP) PO SCH ×2 (09:10→21:23)
--- NOTE | 2019-10-04 12:20 | PN ---
Physical Exam: SUBJECTIVE: Patient seen and examined. Pt. denies any acute complaints. Pt. denies any episodes of bleeding overnight and denies any pain. Pt. is amenable to bone marrow biopsy. OBJECTIVE: Vital Signs Period Temp Pulse Resp BP Sys/Holt Pulse Ox Last 24 Hr 97.5 F-98.5 F 66-82 18-20 127-149/46-58 97-99 GENERAL: Awake, alert, and fully oriented, in no acute distress. HEAD: Normal with no signs of trauma. EYES: R. Eye blindness, cloudy iris EARS, NOSE, THROAT: Moist mucous membranes. LUNGS: Breath sounds equal, clear to auscultation bilaterally anteriorly. Mild wheezing, no crackles. No accessory muscle use. HEART: Regular rate and rhythm, normal S1 and S2 with systolic murmur ABDOMEN: Soft, obese, nontender, not distended, normoactive bowel sounds, no guarding, no rebound, no masses. Hepatomegaly? UPPER EXTREMITIES: warm, well-perfused. No cyanosis. No peripheral edema. LOWER EXTREMITIES: 2+ dorsal pedal pulses, warm, well-perfused. No calf tenderness. No peripheral edema. NEUROLOGICAL: Normal speech, gait not assessed PSYCHIATRIC: Cooperative. Good eye contact. Appropriate mood and affect. SKIN: Warm, dry, normal turgor for age. Laboratory Results - last 24 hr 10/03/19 10/03/19 10/04/19 12:28 16:54 05:47 WBC RBC Hgb Hct MCV MCH MCHC RDW Plt Count MPV Absolute Neuts (auto) Neutrophils % Lymphocytes % Monocytes % Eosinophils % Basophils % Nucleated RBC % PT with INR INR Sodium Potassium Chloride Carbon Dioxide Anion Gap BUN Creatinine Est GFR (CKD-EPI)AfAm Est GFR (CKD-EPI)NonAf POC Glucometer 154 103 Random Glucose Calcium Iron TIBC Iron Saturation Unsaturated IBC Ferritin LD Total Vitamin B12 Serum Folate Blood Type A POSITIVE Antibody Screen Negative Crossmatch See Detail 10/04/19 10/04/19 10/04/19 05:57 05:57 05:57 WBC 7.2 RBC 2.72 L Hgb 8.5 L Hct 25.9 L MCV 95.3 MCH 31.2 MCHC 32.8 RDW 17.9 H Plt Count 189 MPV 7.7 Absolute Neuts (auto) 5.6 Neutrophils % 78.6 Lymphocytes % 13.7 Monocytes % 5.2 Eosinophils % 2.3 Basophils % 0.2 Nucleated RBC % 0 PT with INR 33.40 H INR 2.80 H Sodium 141 Potassium 4.8 Chloride 112 H Carbon Dioxide 22 Anion Gap 8 BUN 43.9 H Creatinine 1.5 H Est GFR (CKD-EPI)AfAm 40.49 Est GFR (CKD-EPI)NonAf 34.93 POC Glucometer Random Glucose 102 Calcium 8.5 Iron 48 L TIBC 195 L Iron Saturation 24 Unsaturated IBC 147 L Ferritin 179.4 LD Total 138 Vitamin B12 272 Serum Folate 6 Blood Type Antibody Screen Crossmatch Active Medications Generic Name Dose Route Start Last Admin Trade Name Freq PRN Reason Stop Dose Admin Acetaminophen 650 mg 09/27/19 23:48 10/01/19 02:43 Tylenol - PO 650 mg Q6H PRN Administration PAIN LEVEL 3-10 Anastrozole 1 mg 09/28/19 10:00 10/04/19 09:10 Arimidex - PO 1 mg DAILY [facility] Administration Atorvastatin Calcium 10 mg 09/28/19 22:00 10/03/19 21:08 Lipitor - PO 10 mg HS [facility] Administration Bupropion HCl 75 mg 09/27/19 18:00 10/04/19 06:10 Wellbutrin - PO 75 mg Q12H [facility] Administration Carvedilol 25 mg 10/02/19 10:00 10/04/19 09:10 Coreg - PO 25 mg BID [facility] Administration Insulin Aspart 1 vial 09/28/19 07:00 10/04/19 06:10 Novolog Vial Sliding Scale - SQ Not Given BIDAC [facility] Protocol Melatonin 5 mg 09/27/19 23:06 10/03/19 21:08 Melatonin PO 5 mg HS PRN Administration INSOMNIA Metformin HCl 500 mg 09/28/19 07:00 10/04/19 06:10 Glucophage Xr - PO 500 mg DAILY@0700 [facility] Administration Sacubitril/Valsartan 1 tab 09/30/19 22:00 10/04/19 09:10 Entresto 24 Mg-26 Mg Tablet PO 1 tab BID [facility] Administration Tramadol HCl 50 mg 09/29/19 03:27 10/04/19 00:49 Ultram - PO 50 mg Q6H PRN Administration PAIN LEVEL 4 - 6 Warfarin Sodium 5 mg 09/27/19 18:00 10/03/19 17:00 Coumadin - PO 5 mg DAILY@1800 [facility] Administration ASSESSMENT/PLAN: Pt. is a 68 y.o. F w/ PMHx. of COPD, DM, HTN, HFrEF (EF:30-35%), Hx. of CVAs, R. Eye Blindness, L.Breast CA(s/p lumpectomy, no chemo or RT), HLD and GERD admitted for weakness. #Macrocytic Anemia MCV: 97.8 borderline macrocytosis f/u B12 and Folate, Iron studies, reticulocytes, and LDH Pt. 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 will likely require bone marrow biopsy, discussed with IR, will hold Coumadin and start Hep gtt, to achieve INR less than 1.5. Tentatively expect biopsy for Thursday. Pt. will require following up mediastinal nodes with repeat imaging after discharge Dispo: We will continue to follow the patient. Thank you for this consultative opportunity. Visit type - Emergency Visit Emergency Visit: Yes ED Registration Date: 10/03/19 Care time: The patient presented to the Emergency Department on the above date and was hospitalized for further evaluation of their emergent condition. - New Patient This patient is new to me today: No - Critical Care Critical Care patient: No - Discharge Referral Referred to [facility] Med P.C[facility] No - Medication Review Med list reviewed for High Risk Meds patients 65 and older: Yes ATTENDING PHYSICIAN STATEMENT I saw and evaluated the patient. I reviewed the resident's note and discussed the case with the resident. I agree with the resident's findings and plan as documented. SUBJECTIVE: OBJECTIVE: ASSESSMENT AND PLAN:
[2019-10-04] MEDS ORDERED: HEPARIN NA (PORCINE) 5,000 UNITS/ML 1ML VIAL IVPUSH PRN ×2 (12:22)
--- NOTE | 2019-10-04 14:56 | PN ---
Progress Note (short form) - Note Progress Note: Active Medications Acetaminophen (Tylenol -) 650 mg PO Q6H PRN PRN Reason: PAIN LEVEL 3-10 Last Admin: 10/01/19 02:43 Dose: 650 mg Documented by: Anastrozole (Arimidex -) 1 mg PO DAILY [facility] Last Admin: 10/04/19 09:10 Dose: 1 mg Documented by: Atorvastatin Calcium (Lipitor -) 10 mg PO HS [facility] Last Admin: 10/03/19 21:08 Dose: 10 mg Documented by: Bupropion HCl (Wellbutrin -) 75 mg PO Q12H [facility] Last Admin: 10/04/19 06:10 Dose: 75 mg Documented by: Carvedilol (Coreg -) 25 mg PO BID [facility] Last Admin: 10/04/19 09:10 Dose: 25 mg Documented by: Heparin Sodium (Porcine) (Heparin -) 1,000 unit IVPUSH PRN PRN PRN Reason: Heparin Heparin Sodium (Porcine) (Heparin -) 5,000 unit IVPUSH PRN PRN PRN Reason: Heparin Heparin Sodium (Porcine) 25, (000 unit/ Sodium Chloride) 500 mls @ 20 mls/hr IV TITR [facility]; Protocol Insulin Aspart (Novolog Vial Sliding Scale -) 1 vial SQ BIDAC [facility]; Protocol Last Admin: 10/04/19 06:10 Dose: Not Given Documented by: Melatonin (Melatonin) 5 mg PO HS PRN PRN Reason: INSOMNIA Last Admin: 10/03/19 21:08 Dose: 5 mg Documented by: Metformin HCl (Glucophage Xr -) 500 mg PO DAILY@0700 [facility] Last Admin: 10/04/19 06:10 Dose: 500 mg Documented by: Sacubitril/Valsartan (Entresto 24 Mg-26 Mg Tablet) 1 tab PO BID [facility] Last Admin: 10/04/19 09:10 Dose: 1 tab Documented by: Tramadol HCl (Ultram -) 50 mg PO Q6H PRN PRN Reason: PAIN LEVEL 4 - 6 Last Admin: 10/04/19 00:49 Dose: 50 mg Documented by: Laboratory Results - last 24 hr 10/03/19 10/03/19 10/04/19 12:28 16:54 05:47 WBC RBC Hgb Hct MCV MCH MCHC RDW Plt Count MPV Absolute Neuts (auto) Neutrophils % Lymphocytes % Monocytes % Eosinophils % Basophils % Nucleated RBC % PT with INR INR Sodium Potassium Chloride Carbon Dioxide Anion Gap BUN Creatinine Est GFR (CKD-EPI)AfAm Est GFR (CKD-EPI)NonAf POC Glucometer 154 103 Random Glucose Calcium Iron TIBC Iron Saturation Unsaturated IBC Ferritin LD Total Vitamin B12 Serum Folate Blood Type A POSITIVE Antibody Screen Negative Crossmatch See Detail 10/04/19 10/04/19 10/04/19 05:57 05:57 05:57 WBC 7.2 RBC 2.72 L Hgb 8.5 L Hct 25.9 L MCV 95.3 MCH 31.2 MCHC 32.8 RDW 17.9 H Plt Count 189 MPV 7.7 Absolute Neuts (auto) 5.6 Neutrophils % 78.6 Lymphocytes % 13.7 Monocytes % 5.2 Eosinophils % 2.3 Basophils % 0.2 Nucleated RBC % 0 PT with INR 33.40 H INR 2.80 H Sodium 141 Potassium 4.8 Chloride 112 H Carbon Dioxide 22 Anion Gap 8 BUN 43.9 H Creatinine 1.5 H Est GFR (CKD-EPI)AfAm 40.49 Est GFR (CKD-EPI)NonAf 34.93 POC Glucometer Random Glucose 102 Calcium 8.5 Iron 48 L TIBC 195 L Iron Saturation 24 Unsaturated IBC 147 L Ferritin 179.4 LD Total 138 Vitamin B12 272 Serum Folate 6 Blood Type Antibody Screen Crossmatch Vital Signs Temperature 98.5 F 10/04/19 08:46 Pulse Rate 68 10/04/19 08:46 Respiratory Rate 18 10/04/19 08:46 Blood Pressure 143/58 L 10/04/19 08:46 O2 Sat by Pulse Oximetry (%) 98 10/04/19 08:48 CC: no new complaints ```````````````````````````````````` skin--no new lesions eyes--asymmetric, anicteric heart--RR lungs--grossly clear abd--soft, NT, ND ext--trace edema neuro--alert; coherent; speech is fluent; no gross motor deficits ``````````````````````````````````````````````````````` Summ > Anemia--exact nature as of yet unknown; occult blood loss vs production problem; hemolysis appears less likely. She is s/p PC transfusion. She is now willing to undergo BM Bx under sedation by IR; Heme Onc note read; orders noted > Renal insuff--not new but rise in Bun Noted; could be 2nd intrasc depletion but decomposing blood in colon could also do this; however, previous stool studies were neg for OB > Hypotension--corrected with IVf. > ASHD--low Ej State; most recent one done here at [facility] a few months ago again showed diminished Ej FX; indicating HF with low Ej FX; and was placed on entresto which she will continue to need; CXR did not show any presence of CHF or effusion PLAN: entresto added to BB; will titrate up the Coreg to 25mg BID > DM--eating better; she still is non complaint as she continues to drink sugary sodas but BGMs not out of control > Shoulder pain--Xray shows a spur like lesion; no other pathology > Lt Leg wound infection--overlying a biopsied BC skin Ca; on dual Abs; culture taken shows no presence of msSA or Ecoli; Abs stopped > Chcf a/c--for stroke prophylaxis; now on IV a/c pre Bx > Constipation--had BM. ~~~~~~~~~~~~~~ dr Caputo Problem List - Problems (1) Hypotension Code(s): I95.9 - HYPOTENSION, UNSPECIFIED Qualifiers: Hypotension type: hypotension due to hypovolemia Qualified Code(s): I95.89 - Other hypotension; E86.1 - Hypovolemia (2) Dehydration Code(s): E86.0 - DEHYDRATION (3) Anemia Code(s): D64.9 - ANEMIA, UNSPECIFIED Qualifiers: Anemia type: other cause Other causes of anemia: other cause, not classified Qualified Code(s): D64.89 - Other specified anemias (4) Anticoagulant long-term use Code(s): Z79.01 - COLLABORATING SUPERVISING PHYSICIAN (CURRENT) USE OF 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 (5) Breast cancer, left Code(s): C50.912 - MALIGNANT NEOPLASM OF UNSPECIFIED SITE OF LEFT FEMALE BREAST Qualifiers: Breast location: unspecified site of breast Estrogen receptor status: unspecified Patient sex: female Qualified Code(s): C50.912 - Malignant neoplasm of unspecified site of left female breast (6) COPD (chronic obstructive pulmonary disease) Code(s): J44.9 - CHRONIC OBSTRUCTIVE PULMONARY DISEASE, UNSPECIFIED Qualifiers: COPD type: unspecified COPD Qualified Code(s): J44.9 - Chronic obstructive pulmonary disease, unspecified (7) CHF (congestive heart failure) Code(s): I50.9 - HEART FAILURE, UNSPECIFIED Qualifiers: Heart failure type: systolic Heart failure chronicity: chronic Qualified Code(s): I50.22 - Chronic systolic (congestive) heart failure (8) Depression Code(s): F32.9 - MAJOR DEPRESSIVE DISORDER, SINGLE EPISODE, UNSPECIFIED Qualifiers: Depression Type: major depressive disorder Major depression episode severity: unspecified (9) Diabetes mellitus type 2, noninsulin dependent Code(s): E11.9 - TYPE 2 DIABETES MELLITUS WITHOUT COMPLICATIONS (11) Visual impairment Code(s): H54.7 - UNSPECIFIED VISUAL LOSS (12) Infected wound Code(s): T14.8XXA - OTHER INJURY OF UNSPECIFIED BODY REGION, INITIAL ENCOUNTER; L08.9 - LOCAL INFECTION OF THE SKIN AND SUBCUTANEOUS TISSUE, UNSP (13) Skin neoplasm malignant Code(s): C44.90 - UNSPECIFIED MALIGNANT NEOPLASM OF SKIN, UNSPECIFIED (14) Elderly person living alone Code(s): Z60.2 - PROBLEMS RELATED TO LIVING ALONE
--- NOTE | 2019-10-04 15:22 | PN ---
Teaching Attending Note Name of Resident: Luis Alberto Junior ATTENDING PHYSICIAN STATEMENT I saw and evaluated the patient. I reviewed the resident's note and discussed the case with the resident. I agree with the resident's findings and plan as documented. SUBJECTIVE: Doing well. No complaints ASSESSMENT AND PLAN: 68 y/o lady w/ PMHx. of COPD, DM, HTN, HFrEF (EF:30-35%), Hx. of CVAs, R. Eye Blindness, L.Breast CA(s/p lumpectomy, no chemo or RT), HLD and GERD admitted for weakness. #Macrocytic Anemia MCV: 97.8 borderline macrocytosis f/u B12 and Folate, Iron studies, reticulocytes, and LDH will obtain CT guided bone marrow bx likely Friday 10/06--- r/o MDS--fow/FISH/cytogenetics/myeloid molecular profile Heparin drip started while holding coumadin. Plan to stop drip before procedure and resume afterwards along with coumadin will need GI w/u as well MEdiastinal adenopathy -- repeat CT chest and follow-outpatient
[2019-10-04] MEDS ORDERED: HEPARIN - 25,000 UNIT in SODIUM CHLORIDE 495 ML IV SCH (18:00)
[2019-10-04] MEDS: MELATONIN 5 MG TABLETS PO PRN (21:22)
[2019-10-04] MEDS: ATORVASTATIN CA 10 MG TABLET (FP) PO SCH (21:22)
[2019-10-05] MEDS ORDERED: PT OWN MED DRAWER 7, Y5N ONE ×4 (05:37→20:47)
[2019-10-05] MEDS: buPROPion HCL 75 MG TABLET PO SCH ×2 (06:23→17:45)
[2019-10-05] MEDS: INSULIN SLIDING SCALE (NOVOLOG) 1 VIAL SQ SCH ×2 (06:23→16:56)
[2019-10-05 07:22] VITALS: BMI 31.4
[2019-10-05 08:40] LABS: INR 2.49 (0.83-1.09); PROTHROMBIN TIME (PATIENT) 29.7 SEC (9.7-13.0)
[2019-10-05 09:58] LABS: BLOOD UREA NITROGEN 44.6 mg/dL (7-18); CALCIUM 8.3 mg/dL (8.5-10.1); CREATININE 1.6 mg/dL (0.55-1.3); POTASSIUM 4.3 mmol/L (3.5-5.1)
[2019-10-05] MEDS: ANASTROZOLE 1 MG TABLET PO SCH (10:11)
[2019-10-05] MEDS: CARVEDILOL 25 MG TABLET (FP) PO SCH ×2 (10:12→22:01)
[2019-10-05] MEDS: SACUBITRIL/VALSARTAN 24 MG-26 MG TABLET PO SCH ×2 (10:13→22:01)
--- NOTE | 2019-10-05 11:22 | PN ---
Progress Note, Physician History of Present Illness: Orthostatic near syncope and weakness resolved, tolerated PT, denies dyspnea. - Current Medication List Current Medications: Active Medications Acetaminophen (Tylenol -) 650 mg PO Q6H PRN PRN Reason: PAIN LEVEL 3-10 Last Admin: 10/01/19 02:43 Dose: 650 mg Documented by: Anastrozole (Arimidex -) 1 mg PO DAILY [facility] Last Admin: 10/05/19 10:11 Dose: 1 mg Documented by: Atorvastatin Calcium (Lipitor -) 10 mg PO HS [facility] Last Admin: 10/04/19 21:22 Dose: 10 mg Documented by: Bupropion HCl (Wellbutrin -) 75 mg PO Q12H [facility] Last Admin: 10/05/19 06:23 Dose: 75 mg Documented by: Carvedilol (Coreg -) 25 mg PO BID [facility] Last Admin: 10/05/19 10:12 Dose: 25 mg Documented by: Heparin Sodium (Porcine) (Heparin -) 1,000 unit IVPUSH PRN PRN PRN Reason: Heparin Heparin Sodium (Porcine) (Heparin -) 5,000 unit IVPUSH PRN PRN PRN Reason: Heparin Heparin Sodium (Porcine) 25, (000 unit/ Sodium Chloride) 500 mls @ 20 mls/hr IV TITR [facility]; Protocol Last Admin: 10/04/19 19:35 Dose: 1,000 unit/hr, 20 mls/hr Documented by: Insulin Aspart (Novolog Vial Sliding Scale -) 1 vial SQ BIDAC [facility]; Protocol Last Admin: 10/05/19 06:23 Dose: Not Given Documented by: Melatonin (Melatonin) 5 mg PO HS PRN PRN Reason: INSOMNIA Last Admin: 10/04/19 21:22 Dose: 5 mg Documented by: Metformin HCl (Glucophage Xr -) 500 mg PO DAILY@0700 [facility] Last Admin: 10/05/19 06:23 Dose: 500 mg Documented by: Sacubitril/Valsartan (Entresto 24 Mg-26 Mg Tablet) 1 tab PO BID [facility] Last Admin: 10/05/19 10:13 Dose: 1 tab Documented by: Tramadol HCl (Ultram -) 50 mg PO Q6H PRN PRN Reason: PAIN LEVEL 4 - 6 Last Admin: 10/04/19 00:49 Dose: 50 mg Documented by: - Objective Vital Signs: Vital Signs Temperature 98.1 F 10/05/19 05:00 Pulse Rate 72 10/05/19 05:00 Respiratory Rate 18 10/05/19 05:00 Blood Pressure 119/46 L 10/05/19 05:00 O2 Sat by Pulse Oximetry (%) 98 10/05/19 05:00 Constitutional: Yes: No Distress, Calm Neck: Yes: Supple Cardiovascular: Yes: Regular Rate and Rhythm Respiratory: Yes: Regular, Diminished Gastrointestinal: Yes: Normal Bowel Sounds, Soft, Abdomen, Obese Edema: No Labs: CBC, BMP 10/04/19 05:57 10/05/19 07:07 INR, PTT INR 2.49 (0.83-1.09) H 10/05/19 07:07 Problem List - Problems (1) Hypotension Code(s): I95.9 - HYPOTENSION, UNSPECIFIED Qualifiers: Hypotension type: hypotension due to hypovolemia Qualified Code(s): I95.89 - Other hypotension; E86.1 - Hypovolemia (2) Acute on chronic systolic congestive heart failure Code(s): I50.23 - ACUTE ON CHRONIC SYSTOLIC (CONGESTIVE) HEART FAILURE (3) Anticoagulant long-term use Code(s): Z79.01 - REGIONAL SALES REPRESENTATIVE (CURRENT) USE OF 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 (4) COPD without exacerbation Code(s): J44.9 - CHRONIC OBSTRUCTIVE PULMONARY DISEASE, UNSPECIFIED (5) Cancer of left breast Code(s): C50.912 - MALIGNANT NEOPLASM OF UNSPECIFIED SITE OF LEFT FEMALE BREAST Qualifiers: Breast location: upper outer quadrant of breast Estrogen receptor status: positive Patient sex: female Qualified Code(s): C50.412 - Malignant neoplasm of upper-outer quadrant of left female breast (6) Diabetes mellitus type 2, noninsulin dependent Code(s): E11.9 - TYPE 2 DIABETES MELLITUS WITHOUT COMPLICATIONS (8) Hypercholesterolemia Code(s): E78.00 - PURE HYPERCHOLESTEROLEMIA, UNSPECIFIED (9) Hypertensive heart and renal disease Qualifiers: Heart failure presence: without heart failure Hypertensive chronic kidney disease stage: stage 1-4 or unspecified chronic kidney disease Qualified Code(s): I13.10 - Hypertensive heart and chronic kidney disease without heart failure, with stage 1 through stage 4 chronic kidney disease, or unspecified chronic kidney disease (10) Visual impairment Code(s): H54.7 - UNSPECIFIED VISUAL LOSS Assessment/Plan Echocardiogram: 07/22/2019 Severely decreased LVEF 30-35%, severe MR, mild-mod TR RVSP 30-40 mmHg, mild Mg 11 mmHg Echocardiography (12/27/18): Normal LV systolic function, LVEF 55-60%, mild , mild MR. Nuclear MPI (12/28/18): Normal perfusion with LVEF 60%. Carotid Doppler(05/04/18): Mild right atherosclerotic plaque and moderate left atherosclerotic plaque in the common carotid extending into internal carotid artery. 12/24/2016 Echo: Normal LV size with moderate decreased LV fxn, mild pericardial effusion, mild ASHLEY, mod MR, mild ME, TR 01/28/2018 Echo: Normal LV size with severely decreased LV fxn EF 30-35%, normal RV size and fxn, mod LAE, mod MR 1. Orthostatic near syncope resolved 2. Nonischemic cardiomyopathy LVEF 30-35% 3. Severe MR 4. History of CVA with left MCA thrombus and therapeutic INR 5. 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 COPD with Chronic Hypoxic Respiratory Failure and long smoking history 7. HTN 8. Hypercholesterolemia 9. Macrocytic anemia r/o MDS 10. Type 2 DM 11. Renal artery stenosis 12. Acute on CKD improved 13. Mild 14. Breast cancer PLAN: 1. Holding furosemide pending renal fxn recovery 2. Increased Carvedilol 25 mg mg BID and Lipitor 10 mg QHS, continue Entresto 24/26 bid and resume eplerenone 25 qd once renal fxn stabilizes 3. Hold Warfarin and start heparin gtt once INR<2.[address]-guided bone marrow biopsy, monitor Hgb 4. O2 to keep SpO2 >90% and inhaled bronchodilators as needed 5. Transfuse to maintain Hgb>8.0 6. Encourage ambulation /PT 7. Eventual f/u with Dr. Mahoney upon d/c ,
--- NOTE | 2019-10-05 13:08 | PN ---
Progress Note (short form) - Note Progress Note: Active Medications Acetaminophen (Tylenol -) 650 mg PO Q6H PRN PRN Reason: PAIN LEVEL 3-10 Last Admin: 10/01/19 02:43 Dose: 650 mg Documented by: Anastrozole (Arimidex -) 1 mg PO DAILY [facility] Last Admin: 10/05/19 10:11 Dose: 1 mg Documented by: Atorvastatin Calcium (Lipitor -) 10 mg PO HS [facility] Last Admin: 10/04/19 21:22 Dose: 10 mg Documented by: Bupropion HCl (Wellbutrin -) 75 mg PO Q12H [facility] Last Admin: 10/05/19 06:23 Dose: 75 mg Documented by: Carvedilol (Coreg -) 25 mg PO BID [facility] Last Admin: 10/05/19 10:12 Dose: 25 mg Documented by: Insulin Aspart (Novolog Vial Sliding Scale -) [facility]; Protocol Last Admin: 10/05/19 06:23 Dose: Not Given Documented by: Melatonin (Melatonin) 5 mg PO HS PRN PRN Reason: INSOMNIA Last Admin: 10/04/19 21:22 Dose: 5 mg Documented by: Metformin HCl (Glucophage Xr -) 500 mg PO DAILY@0700 [facility] Last Admin: 10/05/19 06:23 Dose: 500 mg Documented by: Sacubitril/Valsartan (Entresto 24 Mg-26 Mg Tablet) 1 tab PO BID [facility] Last Admin: 10/05/19 10:13 Dose: 1 tab Documented by: Tramadol HCl (Ultram -) 50 mg PO Q6H PRN PRN Reason: PAIN LEVEL 4 - 6 Last Admin: 10/04/19 00:49 Dose: 50 mg Documented by: Laboratory Results - last 24 hr 10/04/19 10/04/19 10/04/19 05:57 16:15 18:00 Retic Count 1.46 D PT with INR INR PTT (Actin FS) 40.9 H Sodium Potassium Chloride Carbon Dioxide Anion Gap BUN Creatinine Est GFR (CKD-EPI)AfAm Est GFR (CKD-EPI)NonAf POC Glucometer 105 Random Glucose Calcium 10/05/19 10/05/19 10/05/19 01:30 06:22 07:07 Retic Count PT with INR 29.70 H INR 2.49 H PTT (Actin FS) 75.7 H Sodium Potassium Chloride Carbon Dioxide Anion Gap BUN Creatinine Est GFR (CKD-EPI)AfAm Est GFR (CKD-EPI)NonAf POC Glucometer 96 Random Glucose Calcium 10/05/19 10/05/19 07:07 07:55 Retic Count PT with INR INR PTT (Actin FS) Sodium 141 Potassium 4.3 Chloride 111 H Carbon Dioxide 22 Anion Gap 7 L BUN 44.6 H Creatinine 1.6 H Est GFR (CKD-EPI)AfAm 37.45 Est GFR (CKD-EPI)NonAf 32.31 POC Glucometer 98 Random Glucose 98 Calcium 8.3 L CC: no new complaints ```````````````````````````````````` skin--no new lesions eyes--asymmetric, anicteric heart--RR lungs--unlabored abd--benign ext--trace edema neuro--alert; coherent; speech is fluent; no gross motor deficits ``````````````````````````````````````````````````````` Summ > Anemia--exact nature as of yet unknown; occult blood loss vs production problem; hemolysis appears less likely, retic is WNL. She is s/p PC transfusion. She is now willing to undergo BM Bx under sedation by IR. > Renal insuff--made worse by 2nd intrasc depletion but decomposing blood in colon could also do this; however, previous stool studies were neg for OB > Hypotension--corrected with IVf. > ASHD--low Ej State; most recent one done here at [facility] a few months ago again showed diminished Ej FX; indicating HF with low Ej FX; and was placed on entresto which she will continue to need; CXR did not show any presence of CHF or effusion PLAN: entresto added to BB; will titrate up the Coreg to 25mg BID > DM--eating better; she still is non complaint as she continues to drink sugary sodas but BGMs not out of control > Shoulder pain--Xray shows a spur like lesion; no other pathology > Lt Leg wound infection--overlying a biopsied BC skin Ca; on dual Abs; culture taken shows no presence of msSA or Ecoli; Abs stopped > Mcc a/c--for stroke prophylaxis; now on IV a/c pre Bx > Constipation--had BM. ~~~~~~~~~~~~~~ dr Caputo Problem List - Problems (1) Hypotension Code(s): I95.9 - HYPOTENSION, UNSPECIFIED Qualifiers: Hypotension type: hypotension due to hypovolemia Qualified Code(s): I95.89 - Other hypotension; E86.1 - Hypovolemia (2) Dehydration Code(s): E86.0 - DEHYDRATION (3) Anemia Code(s): D64.9 - ANEMIA, UNSPECIFIED Qualifiers: Anemia type: other cause Other causes of anemia: other cause, not classified Qualified Code(s): D64.89 - Other specified anemias (4) Anticoagulant long-term use Code(s): Z79.01 - CUSTODIAL (CURRENT) USE OF 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 (5) Breast cancer, left Code(s): C50.912 - MALIGNANT NEOPLASM OF UNSPECIFIED SITE OF LEFT FEMALE BREAST Qualifiers: Breast location: unspecified site of breast Estrogen receptor status: unspecified Patient sex: female Qualified Code(s): C50.912 - Malignant leander plasm of unspecified site of left female breast (6) COPD (chronic obstructive pulmonary disease) Code(s): J44.9 - CHRONIC OBSTRUCTIVE PULMONARY DISEASE, UNSPECIFIED Qualifiers: COPD type: unspecified COPD Qualified Code(s): J44.9 - Chronic obstructive pulmonary disease, unspecified (7) CHF (congestive heart failure) Code(s): I50.9 - HEART FAILURE, UNSPECIFIED Qualifiers: Heart failure type: systolic Heart failure chronicity: chronic Qualified Code(s): I50.22 - Chronic systolic (congestive) heart failure (8) Depression Code(s): F32.9 - MAJOR DEPRESSIVE DISORDER, SINGLE EPISODE, UNSPECIFIED Qualifiers: Depression Type: major depressive disorder Major depression episode severi ty: unspecified (9) Diabetes mellitus type 2, noninsulin dependent Code(s): E11.9 - TYPE 2 DIABETES MELLITUS WITHOUT COMPLICATIONS (11) Visual impairment Code(s): H54.7 - UNSPECIFIED VISUAL LOSS (12) Infected wound Code(s): T14.8XXA - OTHER INJURY OF UNSPECIFIED BODY REGION, INITIAL ENCOUNTER; L08.9 - LOCAL INFECTION OF THE SKIN AND SUBCUTANEOUS TISSUE, UNSP (13) Skin neoplasm malignant Code(s): C44.90 - UNSPECIFIED MALIGNANT NEOPLASM OF SKIN, UNSPECIFIED (14) Elderly person living alone Code(s): Z60.2 - PROBLEMS RELATED TO LIVING ALONE
[2019-10-05 14:43] LABS: HEMATOCRIT 27.8 % (32.4-45.2); MCH 31.6 pg (25.7-33.7); MCHC 32.5 g/dl (32.0-36.0); MEAN CELL VOLUME 97.3 fl (80-96); PLATELET COUNT 205 K/MM3 (134-434); RBC 2.85 M/mm3 (3.60-5.2); RDW 17.2 % (11.6-15.6); WHITE BLOOD COUNT 6.6 K/mm3 (4.0-10.0)
--- NOTE | 2019-10-05 19:36 | PN.HO ---
Progress Note (short form) - Note Progress Note: Patient seen and examined Bone marrow aspirate/bx done by IR--sent for flow/fish/cytogenetics/myeloid molecular profile/ Hgb 9 today coumadin to be resumed by primary team may need specialized GI eval at [facility] T[facility] 4 B12 272 folate 6 LDH 138 Iron sat 24% ferritin 179 will follow
[2019-10-05] MEDS: ATORVASTATIN CA 10 MG TABLET (FP) PO SCH (22:01)
[2019-10-05] MEDS: MELATONIN 5 MG TABLETS PO PRN (22:07)
[2019-10-06] MEDS: traMADol HCL 50 MG TABLET PO PRN (01:07)
[2019-10-06] MEDS ORDERED: PT OWN MED DRAWER 7, Y5N ONE ×2 (05:05→10:58)
[2019-10-06] MEDS: buPROPion HCL 75 MG TABLET PO SCH ×2 (06:04→17:10)
[2019-10-06] MEDS: INSULIN SLIDING SCALE (NOVOLOG) 1 VIAL SQ SCH ×2 (06:04→16:37)
[2019-10-06 08:46] LABS: HEMATOCRIT 26.8 % (32.4-45.2); HEMOGLOBIN 8.7 GM/dL (10.7-15.3); MCH 31.3 pg (25.7-33.7); MCHC 32.3 g/dl (32.0-36.0); MEAN CELL VOLUME 97.1 fl (80-96); MEAN PLT VOLUME 7.8 fl (7.5-11.1); PLATELET COUNT 206 K/MM3 (134-434); RBC 2.77 M/mm3 (3.60-5.2); RDW 17.3 % (11.6-15.6); WHITE BLOOD COUNT 6.2 K/mm3 (4.0-10.0)
[2019-10-06 09:08] LABS: INR 1.6 (0.83-1.09)
--- NOTE | 2019-10-06 09:20 | PN ---
Progress Note, Physician History of Present Illness: Orthostatic near syncope and weakness resolved, tolerated PT, denies dyspnea, s/p bone marrow biopsy. - Current Medication List Current Medications: Active Medications Acetaminophen (Tylenol -) 650 mg PO Q6H PRN PRN Reason: PAIN LEVEL 3-10 Last Admin: 10/01/19 02:43 Dose: 650 mg Documented by: Anastrozole (Arimidex -) 1 mg PO DAILY [facility] Last Admin: 10/05/19 10:11 Dose: 1 mg Documented by: Atorvastatin Calcium (Lipitor -) 10 mg PO HS [facility] 234 BEDS AT [facility] Last Admin: 10/05/19 22:01 Dose: 10 mg Documented by: Bupropion HCl (Wellbutrin -) 75 mg PO Q12H [facility] 234 BEDS [facility] Last Admin: 10/06/19 06:04 Dose: 75 mg Documented by: Carvedilol (Coreg -) 25 mg PO BID [facility] 234 B[facility]S [facility] Last Admin: 10/05/19 22:01 Dose: 25 mg Documented by: Insulin Aspart ([facility]ial Sliding Scale -) [facility] Last Admin: 10/06/19 06:04 Dose: Not Given Documented by: Melatonin (Melatonin) 5 mg PO HS PRN PRN Reason: INSOMNIA Last Admin: 10/05/19 22:07 Dose: 5 mg Documented by: Metformin HCl (Glucophage Xr -) 500 mg PO DAILY@0700 [facility] Last Admin: 10/06/19 06:04 Dose: 500 mg Documented by: Sacubitril/Valsartan (Entresto 24 Mg-26 Mg Tablet) 1 tab PO BID [facility] Last Admin: 10/05/19 22:01 Dose: 1 tab Documented by: Tramadol HCl (Ultram -) 50 mg PO Q6H PRN PRN Reason: PAIN LEVEL 4 - 6 Last Admin: 10/06/19 01:07 Dose: 50 mg Documented by: - Objective Vital Signs: Vital Signs Temperature 97.6 F 10/06/19 06:00 Pulse Rate 61 10/06/19 06:00 Respiratory Rate 20 10/06/19 06:00 Blood Pressure 134/46 L 10/06/19 06:00 O2 Sat by Pulse Oximetry (%) 99 10/06/19 06:00 Constitutional: Yes: No Distress, Calm Neck: Yes: Supple Cardiovascular: Yes: Regular Rate and Rhythm, Murmur (2/6 SM) Respiratory: Yes: Regular, CTA Bilaterally Gastrointestinal: Yes: Normal Bowel Sounds, Soft Edema: No Labs: CBC, BMP 10/06/19 08:10 INR, PTT INR 1.60 (0.83-1.09) H 10/06/19 08:10 Problem List - Problems (1) Hypotension Code(s): I95.9 - HYPOTENSION, UNSPECIFIED Qualifiers: Hypotension type: hypotension due to hypovolemia Qualified Code(s): I95.89 - Other hypotension; E86.1 - Hypovolemia (2) Acute on chronic systolic congestive heart failure Code(s): I50.23 - ACUTE ON CHRONIC SYSTOLIC (CONGESTIVE) HEART FAILURE (3) Anticoagulant long-term use Code(s): Z79.01 - RESIDENTIAL (CURRENT) USE OF 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 (4) COPD without exacerbation Code(s): J44.9 - CHRONIC OBSTRUCTIVE PULMONARY DISEASE, UNSPECIFIED (5) Cancer of left breast Code(s): C50.912 - MALIGNANT NEOPLASM OF UNSPECIFIED SITE OF LEFT FEMALE BREAST Qualifiers: Breast location: upper outer quadrant of breast Estrogen receptor status: positive Patient sex: female Qualified Code(s): C50.412 - Malignant neoplasm of upper-outer quadrant of left female breast (6) Diabetes mellitus type 2, noninsulin dependent Code(s): E11.9 - TYPE 2 DIABETES MELLITUS WITHOUT COMPLICATIONS (8) Hypercholesterolemia Code(s): E78.00 - PURE HYPERCHOLESTEROLEMIA, UNSPECIFIED (9) Hypertensive heart and renal disease Qualifiers: Heart failure presence: without heart failure Hypertensive chronic kidney disease stage: stage 1-4 or unspecified chronic kidney disease Qualified Code(s): I13.10 - Hypertensive heart and chronic kidney disease without heart failure, with stage 1 through stage 4 chronic kidney disease, or unspecified chronic kidney disease (10) Visual impairment Code(s): H54.7 - UNSPECIFIED VISUAL LOSS Assessment/Plan Echocardiogram: 07/22/2019 Severely decreased LVEF 30-35%, severe MR, mild-mod TR RVSP 30-40 mmHg, mild Mg 11 mmHg Echocardiography (12/27/18): Normal LV systolic function, LVEF 55-60%, mild , mild MR. Nuclear MPI (12/28/18): Normal perfusion with LVEF 60%. Carotid Doppler(05/04/18): Mild right atherosclerotic plaque and moderate left atherosclerotic plaque in the common carotid extending into internal carotid artery. 12/24/2016 Echo: Normal LV size with moderate decreased LV fxn, mild pericardial effusion, mild ASHLEY, mod MR, mild LA, TR 01/28/2018 Echo: Normal LV size with severely decreased LV fxn EF 30-35%, normal RV size and fxn, mod LAE, mod MR 1. Orthostatic near syncope resolved 2. Nonischemic cardiomyopathy LVEF 30-35% 3. Severe MR 4. History of CVA with left MCA thrombus and subtherapeutic INR 5. 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 COPD with Chronic Hypoxic Respiratory Failure and long smoking history 7. HTN 8. Hypercholesterolemia 9. Macrocytic anemia r/o MDS 10. Type 2 DM 11. Renal artery stenosis 12. Acute on CKD improved 13. Mild 14. Breast cancer PLAN: 1. Holding furosemide pending renal fxn recovery, await bone marrow sent for flow/fish/cytogenetics/myeloid molecular profile/ 2. Continue Carvedilol 25 mg mg BID, Lipitor 10 mg QHS, Entresto 24/26 bid and resume eplerenone 25 qd as renal fxn stabilized 3. Heparin gtt->coumadin per INR 2.0-3.[address]-guided bone marrow biopsy, monitor Hgb 4. O2 to keep SpO2 >90% and inhaled bronchodilators as needed 5. Transfuse to maintain Hgb>8.0 6. Encourage ambulation /PT 7. Eventual f/u with Dr. Mahoney upon d/c ,
[2019-10-06 09:31] LABS: BLOOD UREA NITROGEN 49.5 mg/dL (7-18); CALCIUM 8.8 mg/dL (8.5-10.1); CREATININE 1.5 mg/dL (0.55-1.3); POTASSIUM 4.9 mmol/L (3.5-5.1)
[2019-10-06] MEDS ORDERED: ENOXAPARIN NA (PORCINE) 80 MG/0.8 ML DISP.SYRIN SQ ONE (10:35)
[2019-10-06] MEDS: SACUBITRIL/VALSARTAN 24 MG-26 MG TABLET PO SCH ×2 (11:06→21:21)
[2019-10-06] MEDS: CARVEDILOL 25 MG TABLET (FP) PO SCH ×2 (11:07→21:16)
[2019-10-06] MEDS: ANASTROZOLE 1 MG TABLET PO SCH (11:07)
--- NOTE | 2019-10-06 12:08 | PN ---
Physical Exam: SUBJECTIVE: Patient seen and examined. No acute events overnight. Pt. happy that the biopsy michela better than expected. Pt denies any bruising, or bloody bowel movements. Pt. denies any pain anywhere, OBJECTIVE: Vital Signs Period Temp Pulse Resp BP Sys/Holt Pulse Ox Last 24 Hr 97.6 F-99 F 61-75 16-21 108-145/44-95 93-100 GENERAL: Awake, alert, and fully oriented, in no acute distress. HEAD: Normal with no signs of trauma. EYES: R. Eye blindness, cloudy iris EARS, NOSE, THROAT: Moist mucous membranes. LUNGS: Breath sounds equal, clear to auscultation bilaterally anteriorly. Mild wheezing, no crackles. No accessory muscle use. HEART: Regular rate and rhythm, normal S1 and S2 with systolic murmur ABDOMEN: Soft, obese, nontender, not distended, normoactive bowel sounds, no guarding, no rebound, no masses. UPPER EXTREMITIES: warm, well-perfused. No cyanosis. No peripheral edema. LOWER EXTREMITIES: 2+ dorsal pedal pulses, warm, well-perfused. No calf tenderness. No peripheral edema. NEUROLOGICAL: Normal speech, gait not assessed PSYCHIATRIC: Cooperative. Good eye contact. Appropriate mood and affect. SKIN: Warm, dry, normal turgor for age. Laboratory Results - last 24 hr 10/04/19 10/05/19 10/05/19 05:57 13:50 14:47 WBC 6.6 RBC 2.85 L Hgb 9.0 L Hct 27.8 L MCV 97.3 H MCH 31.6 MCHC 32.5 RDW 17.2 H Plt Count 205 MPV 8.0 Retic Count 1.46 D PT with INR INR Sodium Potassium Chloride Carbon Dioxide Anion Gap BUN Creatinine Est GFR (CKD-EPI)AfAm Est GFR (CKD-EPI)NonAf POC Glucometer Random Glucose Calcium Stool Occult Blood Negative 10/05/19 10/06/19 10/06/19 16:49 06:03 08:10 WBC 6.2 RBC 2.77 L Hgb 8.7 L Hct 26.8 L MCV 97.1 H MCH 31.3 MCHC 32.3 RDW 17.3 H Plt Count 206 MPV 7.8 Retic Count PT with INR INR Sodium Potassium Chloride Carbon Dioxide Anion Gap BUN Creatinine Est GFR (CKD-EPI)AfAm Est GFR (CKD-EPI)NonAf POC Glucometer 125 101 Random Glucose Calcium Stool Occult Blood 10/06/19 10/06/19 08:10 08:10 WBC RBC Hgb Hct MCV MCH MCHC RDW Plt Count MPV Retic Count PT with INR 19.00 H INR 1.60 H Sodium 140 Potassium 4.9 Chloride 110 H Carbon Dioxide 27 Anion Gap 3 L BUN 49.5 H Creatinine 1.5 H Est GFR (CKD-EPI)AfAm 40.49 Est GFR (CKD-EPI)NonAf 34.93 POC Glucometer Random Glucose 103 Calcium 8.8 Stool Occult Blood Active Medications Generic Name Dose Route Start Last Admin Trade Name Freq PRN Reason Stop Dose Admin Acetaminophen 650 mg 09/27/19 23:48 10/01/19 02:43 Tylenol - PO 650 mg Q6H PRN Administration PAIN LEVEL 3-10 Anastrozole 1 mg 09/28/19 10:00 10/06/19 11:07 Arimidex - PO 1 mg DAILY [facility] Administration Atorvastatin Calcium 10 mg 09/28/19 22:00 10/05/19 22:01 Lipitor - PO 10 mg HS [facility] Administration Bupropion HCl 75 mg 09/27/19 18:00 10/06/19 06:04 Wellbutrin - PO 75 mg Q12H [facility] Administration Carvedilol 25 mg 10/02/19 10:00 10/06/19 11:07 Coreg - PO 25 mg BID [facility] Administration Eplerenone 25 mg 10/07/19 10:00 Eplerenone PO DAILY [facility] Insulin Aspart 1 vial 09/28/19 07:00 10/06/19 06:04 Novolog Vial Sliding Scale - SQ Not Given BIDAC [facility] Protocol Melatonin 5 mg 09/27/19 23:06 10/05/19 22:07 Melatonin PO 5 mg HS PRN Administration INSOMNIA Metformin HCl 500 mg 09/28/19 07:00 10/06/19 06:04 Glucophage Xr - PO 500 mg DAILY@0700 [facility] Administration Sacubitril/Valsartan 1 tab 09/30/19 22:00 10/06/19 11:06 Entresto 24 Mg-26 Mg Tablet PO 1 tab BID [facility] Administration Tramadol HCl 50 mg 09/29/19 03:27 10/06/19 01:07 Ultram - PO 50 mg Q6H PRN Administration PAIN LEVEL 4 - 6 Warfarin Sodium 5 mg 10/06/19 18:00 Coumadin - PO DAILY@1800 [facility] ASSESSMENT/PLAN: Pt. is a 68 y.o. F w/ PMHx. of COPD, DM, HTN, HFrEF (EF:30-35%), Hx. of CVAs, R. Eye Blindness, L.Breast CA(s/p lumpectomy, no chemo or RT), HLD and GERD admitted for weakness. #Macrocytic Anemia MCV: 97.8 borderline macrocytosis B12, Folate, LDH wnl Iron studies show TSAT of 24% Reticulocytes: 1.49 -->inappropriate response Pt. is s/p 1 unit of pRBCs with appropriate correction likely 2/2 chronic disease and CKD, unclear why Pt. 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 results Pt. will require following up mediastinal nodes with repeat imaging after discharge Dispo: We will continue to follow the patient. Thank you for this consultative opportunity. Visit type - Emergency Visit Emergency Visit: Yes ED Registration Date: 10/03/19 Care time: The patient presented to the Emergency Department on the above date and was hospitalized for further evaluation of their emergent condition. - New Patient This patient is new to me today: No - Critical Care Critical Care patient: No - Discharge Referral Referred to [facility] Med P.C.: No - Medication Review Med list reviewed for High Risk Meds patients 65 and older: Yes ATTENDING PHYSICIAN STATEMENT I saw and evaluated the patient. I reviewed the resident's note and discussed the case with the resident. I agree with the resident's findings and plan as documented. SUBJECTIVE: OBJECTIVE: ASSESSMENT AND PLAN:
[2019-10-06] MEDS: WARFARIN NA 5 MG TABLET PO SCH (17:09)
--- NOTE | 2019-10-06 18:07 | PN ---
Progress Note (short form) - Note Progress Note: Active Medications Acetaminophen (Tylenol -) 650 mg PO Q6H PRN PRN Reason: PAIN LEVEL 3-10 Last Admin: 10/01/19 02:43 Dose: 650 mg Documented by: Anastrozole (Arimidex -) 1 mg PO DAILY [facility] Last Admin: 10/06/19 11:07 Dose: 1 mg Documented by: Atorvastatin Calcium (Lipitor -) 10 mg PO HS [facility] Last Admin: 10/05/19 22:01 Dose: 10 mg Documented by: Bupropion HCl (Wellbutrin -) 75 mg PO Q12H [facility] Last Admin: 10/06/19 17:10 Dose: 75 mg Documented by: Carvedilol (Coreg -) 25 mg PO BID [facility] Last Admin: 10/06/19 11:07 Dose: 25 mg Documented by: Eplerenone (Eplerenone) 25 mg PO DAILY [facility] Insulin Aspart (Novolog Vial Sliding Scale -) [facility]; Protocol Last Admin: 10/06/19 16:37 Dose: Not Given Documented by: Melatonin (Melatonin) 5 mg PO HS PRN PRN Reason: INSOMNIA Last Admin: 10/05/19 22:07 Dose: 5 mg Documented by: Metformin HCl (Glucophage Xr -) 500 mg PO DAILY@0700 [facility] Last Admin: 10/06/19 06:04 Dose: 500 mg Documented by: Nystatin (Mycostatin Cream -) 1 applic TP BID [facility] Sacubitril/Valsartan (Entresto 24 Mg-26 Mg Tablet) 1 tab PO BID [facility] Last Admin: 10/06/19 11:06 Dose: 1 tab Documented by: Tramadol HCl (Ultram -) 50 mg PO Q6H PRN PRN Reason: PAIN LEVEL 4 - 6 Last Admin: 10/06/19 01:07 Dose: 50 mg Documented by: Warfarin Sodium (Coumadin -) 5 mg PO DAILY@1800 [facility] Last Admin: 10/06/19 17:09 Dose: 5 mg Documented by: Laboratory Results - last 24 hr 10/03/19 10/06/19 10/06/19 12:28 06:03 08:10 WBC 6.2 RBC 2.77 L Hgb 8.7 L Hct 26.8 L MCV 97.1 H MCH 31.3 MCHC 32.3 RDW 17.3 H Plt Count 206 MPV 7.8 PT with INR INR Sodium Potassium Chloride Carbon Dioxide Anion Gap BUN Creatinine Est GFR (CKD-EPI)AfAm Est GFR (CKD-EPI)NonAf POC Glucometer 101 Random Glucose Calcium Blood Type A POSITIVE Antibody Screen Negative Crossmatch See Detail 10/06/19 10/06/19 10/06/19 08:10 08:10 16:30 WBC RBC Hgb Hct MCV MCH MCHC RDW Plt Count MPV PT with INR 19.00 H INR 1.60 H Sodium 140 Potassium 4.9 Chloride 110 H Carbon Dioxide 27 Anion Gap 3 L BUN 49.5 H Creatinine 1.5 H Est GFR (CKD-EPI)AfAm 40.49 Est GFR (CKD-EPI)NonAf 34.93 POC Glucometer 76 Random Glucose 103 Calcium 8.8 Blood Type Antibody Screen Crossmatch Vital Signs Temperature 98 F 10/06/19 14:00 Pulse Rate 66 10/06/19 15:46 Respiratory Rate 20 10/06/19 15:46 Blood Pressure 123/67 10/06/19 15:46 O2 Sat by Pulse Oximetry (%) 96 10/06/19 15:46 CC: no new complaints ```````````````````````````````````` skin--fungal rash under breasts eyes--asymmetric, anicteric heart--RR lungs--unlabored abd--benign ext--trace edema neuro--alert; coherent; speech is fluent; no gross motor deficits ``````````````````````````````````````````````````````` Summ > Anemia--exact nature as of yet unknown; occult blood loss vs production problem; hemolysis appears less likely, retic is WNL. She is s/p PC transfusion. She is s/p BM Bx; slight drop in Hgb noted today. > Renal insuff--grossly unchanged > ASHD--low Ej State; most recent one done here at [facility] a few months ago again showed diminished Ej FX; indicating HF with low Ej FX; and was placed on e ntresto which she will continue to need; CXR did not show any presence of CHF or effusion PLAN: entresto added to BB; will titrate up the Coreg to 25mg BID > DM--most readings are in low 100's > Shoulder pain--improved > Lt Leg wound infection--overlying a biopsied BC skin Ca; on dual Abs; culture taken shows no presence of msSA or Ecoli; Abs stopped > [facility] a/c--for stroke prophylaxis; now on SC lovenox; will restart warfarin; and check levels in AM > Constipation--had BM. ~~~~~~~~~~~~~~ Dr Caputo Problem List - Problems (1) Hypotension Code(s): I95.9 - HYPOTENSION, UNSPECIFIED Qualifiers: Hypotension type: hypotension due to hypovolemia Qualified Code(s): I95.89 - Other hypotension; E86.1 - Hypovolemia (2) Dehydration Code(s): E86.0 - DEHYDRATION (3) Anemia Code(s): D64.9 - ANEMIA, UNSPECIFIED Qualifiers: Anemia type: other cause Other causes of anemia: other cause, not classified Qualified Code(s): D64.89 - Other specified anemias (4) Anticoagulant long-term use Code(s): Z79.01 - JAIL (CURRENT) USE OF 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 (5) Breast cancer, left Code(s): C50.912 - MALIGNANT NEOPLASM OF UNSPECIFIED SITE OF LEFT FEMALE BREAST Qualifiers: Breast location: unspecified site of breast Estrogen receptor status: unspecified Patient sex: female Qualified Code(s): C50.912 - Malignant neoplasm of unspecified site of left female breast (6) COPD (chronic obstructive pulmonary disease) Code(s): J44.9 - CHRONIC OBSTRUCTIVE PULMONARY DISEASE, UNSPECIFIED Qualifiers: COPD type: unspecified COPD Qualified Code(s): J44.9 - Chronic obstructive pulmonary disease, unspecified (7) CHF (congestive heart failure) Code(s): I50.9 - HEART FAILURE, UNSPECIFIED Qualifiers: Heart failure type: systolic Heart failure chronicity: chronic Qualified Code(s): I50.22 - Chronic systolic (congestive) heart failure (8) Depression Code(s): F32.9 - MAJOR DEPRESSIVE DISORDER, SINGLE EPISODE, UNSPECIFIED Qualifiers: Depression Type: major depressive disorder Major depression episode severity: unspecified (9) Diabetes mellitus type 2, noninsulin dependent Code(s): E11.9 - TYPE 2 DIABETES MELLITUS WITHOUT COMPLICATIONS (11) Visual impairment Code(s): H54.7 - UNSPECIFIED VISUAL LOSS (12) Infected wound Code(s): T14.8XXA - OTHER INJURY OF UNSPECIFIED BODY REGION, INITIAL ENCOUNTER; L08.9 - LOCAL INFECTION OF THE SKIN AND SUBCUTANEOUS TISSUE, UNSP (13) Skin neoplasm malignant Code(s): C44.90 - UNSPECIFIED MALIGNANT NEOPLASM OF SKIN, UNSPECIFIED (14) Elderly person living alone Code(s): Z60.2 - PROBLEMS RELATED TO LIVING ALONE
[2019-10-06] MEDS: NYSTATIN 100,000 UNIT/GM TOPICAL CREAM 15 GM TUBE TP SCH (21:16)
[2019-10-06] MEDS: ATORVASTATIN CA 10 MG TABLET (FP) PO SCH (21:16)
[2019-10-06] MEDS: MELATONIN 5 MG TABLETS PO PRN (21:21)
[2019-10-07] MEDS ORDERED: PT OWN MED DRAWER 7, Y5N ONE ×5 (05:49→21:02)
[2019-10-07] MEDS: INSULIN SLIDING SCALE (NOVOLOG) 1 VIAL SQ SCH ×2 (06:12→17:23)
[2019-10-07] MEDS: buPROPion HCL 75 MG TABLET PO SCH ×2 (06:16→18:31)
[2019-10-07 07:44] LABS: HEMATOCRIT 25.8 % (32.4-45.2); HEMOGLOBIN 8.5 GM/dL (10.7-15.3); MCH 31.5 pg (25.7-33.7); MCHC 32.8 g/dl (32.0-36.0); MEAN PLT VOLUME 7.9 fl (7.5-11.1); PLATELET COUNT 211 K/MM3 (134-434); RBC 2.69 M/mm3 (3.60-5.2); RDW 16.6 % (11.6-15.6); WHITE BLOOD COUNT 6.3 K/mm3 (4.0-10.0)
[2019-10-07 07:49] LABS: INR 1.29 (0.83-1.09); PROTHROMBIN TIME (PATIENT) 15.3 SEC (9.7-13.0)
[2019-10-07 08:10] LABS: BLOOD UREA NITROGEN 49.9 mg/dL (7-18); CALCIUM 9.1 mg/dL (8.5-10.1); CREATININE 1.7 mg/dL (0.55-1.3); POTASSIUM 4.9 mmol/L (3.5-5.1)
--- NOTE | 2019-10-07 09:29 | PN ---
Progress Note (short form) - Note Progress Note: \ No acute cardiac events Vital Signs Temperature 97.7 F 10/07/19 06:00 Pulse Rate 64 10/07/19 06:00 Respiratory Rate 20 10/07/19 06:00 Blood Pressure 157/63 10/07/19 06:00 O2 Sat by Pulse Oximetry (%) 100 10/07/19 06:00 Cardiovascular: Yes: Regular Rate and Rhythm, Murmur (2/6 SM) Respiratory: Yes: Regular, CTA Bilaterally Gastrointestinal: Yes: Normal Bowel Sounds, Soft Edema: No Labs: CBC, BMP 10/07/19 06:58 10/07/19 06:58 Active Medications Acetaminophen (Tylenol -) 650 mg PO Q6H PRN PRN Reason: PAIN LEVEL 3-10 Last Admin: 10/01/19 02:43 Dose: 650 mg Documented by: Anastrozole (Arimidex -) 1 mg PO DAILY [facility] Last Admin: 10/06/19 11:07 Dose: 1 mg Documented by: Atorvastatin Calcium (Lipitor -) 10 mg PO HS [facility] Last Admin: 10/06/19 21:16 Dose: 10 mg Documented by: Bupropion HCl (Wellbutrin -) 75 mg PO Q12H [facility] Last Admin: 10/07/19 06:16 Dose: 75 mg Documented by: Carvedilol (Coreg -) 25 mg PO BID [facility] Last Admin: 10/06/19 21:16 Dose: 25 mg Documented by: Eplerenone (Eplerenone) 25 mg PO DAILY [facility] Insulin Aspart (Novolog Vial Sliding Scale -) [facility]; Protocol Last Admin: 10/07/19 06:12 Dose: Not Given Documented by: Melatonin (Melatonin) 5 mg PO HS PRN PRN Reason: INSOMNIA Last Admin: 10/06/19 21:21 Dose: 5 mg Documented by: Metformin HCl (Glucophage Xr -) 500 mg PO DAILY@0700 [facility] Last Admin: 10/07/19 06:16 Dose: 500 mg Documented by: Nystatin (Mycostatin Cream -) 1 applic TP BID [facility] Last Admin: 10/06/19 21:16 Dose: 1 applic Documented by: Sacubitril/Valsartan (Entresto 24 Mg-26 Mg Tablet) 1 tab PO BID [facility] Last Admin: 10/06/19 21:21 Dose: 1 tab Documented by: Tramadol HCl (Ultram -) 50 mg PO Q6H PRN PRN Reason: PAIN LEVEL 4 - 6 Last Admin: 10/06/19 01:07 Dose: 50 mg Documented by: Warfarin Sodium (Coumadin -) 5 mg PO DAILY@1800 [facility] Last Admin: 10/06/19 17:09 Dose: 5 mg Documented by: Problem List - Problems (1) Hypotension Code(s): I95.9 - HYPOTENSION, UNSPECIFIED Qualifiers: Hypotension type: hypotension due to hypovolemia Qualified Code(s): I95.89 - Other hypotension; E86.1 - Hypovolemia (2) Acute on chronic systolic congestive heart failure Code(s): I50.23 - ACUTE ON CHRONIC SYSTOLIC (CONGESTIVE) HEART FAILURE (3) Anticoagulant long-term use Code(s): Z79.01 - LONGTERM (CURRENT) USE OF 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 (4) COPD without exacerbation Code(s): J44.9 - CHRONIC OBSTRUCTIVE PULMONARY DISEASE, UNSPECIFIED (5) Cancer of left breast Code(s): C50.912 - MALIGNANT NEOPLASM OF UNSPECIFIED SITE OF LEFT FEMALE BREAST Qualifiers: Breast location: upper outer quadrant of breast Estrogen receptor status: positive Patient sex: female Qualified Code(s): C50.412 - Malignant neoplasm of upper-outer quadrant of left female breast (6) Diabetes mellitus type 2, noninsulin dependent Code(s): E11.9 - TYPE 2 DIABETES MELLITUS WITHOUT COMPLICATIONS (8) Hypercholesterolemia Code(s): E78.00 - PURE HYPERCHOLESTEROLEMIA, UNSPECIFIED (9) Hypertensive heart and renal disease Qualifiers: Heart failure presence: without heart failure Hypertensive chronic kidney disease stage: stage 1-4 or unspecified chronic kidney disease Qualified Code(s): I13.10 - Hypertensive heart and chronic kidney disease without heart failure, with stage 1 through stage 4 chronic kidney disease, or unspecified chronic kidney disease (10) Visual impairment Code(s): H54.7 - UNSPECIFIED VISUAL LOSS Assessment/Plan Echocardiogram: 07/22/2019 Severely decreased LVEF 30-35%, severe MR, mild-mod TR RVSP 30-40 mmHg, mild Mg 11 mmHg Echocardiography (12/27/18): Normal LV systolic function, LVEF 55-60%, mild , mild MR. Nuclear MPI (12/28/18): Normal perfusion with LVEF 60%. Carotid Doppler(05/04/18): Mild right atherosclerotic plaque and moderate left atherosclerotic plaque in the common carotid extending into internal carotid artery. 12/24/2016 Echo: Normal LV size with moderate decreased LV fxn, mild pericardial effusion, mild ASHLEY, mod MR, mild [place], TR 01/28/2018 Echo: Normal LV size with severely decreased LV fxn EF 30-35%, normal RV size and fxn, mod LAE, mod MR 1. Orthostatic near syncope resolved 2. Nonischemic cardiomyopathy LVEF 30-35% 3. Severe MR 4. History of CVA with left MCA thrombus and subtherapeutic INR 5. 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 COPD with Chronic Hypoxic Respiratory Failure and long smoking history 7. HTN 8. Hypercholesterolemia 9. Macrocytic anemia r/o MDS 10. Type 2 DM 11. Renal artery stenosis 12. Acute on CKD improved 13. Mild 14. Breast cancer PLAN: 1. Holding furosemide , use prn 2. Continue Carvedilol 25 mg mg BID, Lipitor 10 mg QHS, Entresto 24/26 bid and eplerenone 25 qd ; onitor renal/labs 3. Heparin gtt->coumadin per INR 2.0-3.[address]-guided bone marrow biopsy, monitor Hgb 4. O2 to keep SpO2 >90% and inhaled bronchodilators as needed 5. Transfuse to maintain Hgb>8.0 6. Encourage ambulation /PT 7. Eventual f/u with Dr. Mahoney upon d/c ,
[2019-10-07] MEDS: SACUBITRIL/VALSARTAN 24 MG-26 MG TABLET PO SCH ×2 (10:27→21:20)
[2019-10-07] MEDS: ANASTROZOLE 1 MG TABLET PO SCH (10:27)
[2019-10-07] MEDS: CARVEDILOL 25 MG TABLET (FP) PO SCH ×2 (10:27→21:20)
[2019-10-07] MEDS: EPLERENONE 25 MG TABLET PO SCH (10:27)
--- NOTE | 2019-10-07 10:28 | PN ---
Physical Exam: SUBJECTIVE: Patient seen and examined OBJECTIVE: Vital Signs Period Temp Pulse Resp BP Sys/Holt Pulse Ox Last 24 Hr 97.7 F-98.7 F 61-68 20-20 123-157/49-91 94-100 GENERAL: Awake, alert, and fully oriented, in no acute distress. HEAD: Normal with no signs of trauma. EYES: R. Eye blindness, cloudy iris EARS, NOSE, THROAT: Moist mucous membranes. LUNGS: Breath sounds equal, clear to auscultation bilaterally anteriorly. Mild wheezing, no crackles. No accessory muscle use. HEART: Regular rate and rhythm, normal S1 and S2 with systolic murmur ABDOMEN: Soft, obese, nontender, not distended, normoactive bowel sounds, no guarding, no rebound, no masses. Hepatomegaly? UPPER EXTREMITIES: warm, well-perfused. No cyanosis. No peripheral edema. LOWER EXTREMITIES: 2+ dorsal pedal pulses, warm, well-perfused. No calf tenderness. No peripheral edema. NEUROLOGICAL: Normal speech, gait not assessed PSYCHIATRIC: Cooperative. Good eye contact. Appropriate mood and affect. SKIN: Warm, dry, normal turgor for age. Laboratory Results - last 24 hr 10/03/19 10/06/19 10/07/19 12:28 16:30 05:27 WBC RBC Hgb Hct MCV MCH MCHC RDW Plt Count MPV PT with INR INR Sodium Potassium Chloride Carbon Dioxide Anion Gap BUN Creatinine Est GFR (CKD-EPI)AfAm Est GFR (CKD-EPI)NonAf POC Glucometer 76 82 Random Glucose Calcium Blood Type A POSITIVE Antibody Screen Negative Crossmatch See Detail 10/07/19 10/07/19 10/07/19 06:58 06:58 06:58 WBC 6.3 RBC 2.69 L Hgb 8.5 L Hct 25.8 L MCV 96.0 MCH 31.5 MCHC 32.8 RDW 16.6 H Plt Count 211 MPV 7.9 PT with INR 15.30 H INR 1.29 H Sodium 141 Potassium 4.9 Chloride 110 H Carbon Dioxide 26 Anion Gap 4 L BUN 49.9 H Creatinine 1.7 H Est GFR (CKD-EPI)AfAm 34.80 Est GFR (CKD-EPI)NonAf 30.03 POC Glucometer Random Glucose 92 Calcium 9.1 Blood Type Antibody Screen Crossmatch Active Medications Generic Name Dose Route Start Last Admin Trade Name Freq PRN Reason Stop Dose Admin Acetaminophen 650 mg 09/27/19 23:48 10/01/19 02:43 Tylenol - PO 650 mg Q6H PRN Administration PAIN LEVEL 3-10 Anastrozole 1 mg 09/28/19 10:00 10/06/19 11:07 Arimidex - PO 1 mg DAILY [facility] Administration Atorvastatin Calcium 10 mg 09/28/19 22:00 10/06/19 21:16 Lipitor - PO 10 mg HS [facility] Administration Bupropion HCl 75 mg 09/27/19 18:00 10/07/19 06:16 Wellbutrin - PO 75 mg Q12H [facility] Administration Carvedilol 25 mg 10/02/19 10:00 10/06/19 21:16 Coreg - PO 25 mg BID [facility] Administration Eplerenone 25 mg 10/07/19 10:00 Eplerenone PO DAILY [facility] Insulin Aspart 1 vial 09/28/19 07:00 10/07/19 06:12 Novolog Vial Sliding Scale - SQ Not Given [facility] Protocol Melatonin 5 mg 09/27/19 23:06 10/06/19 21:21 Melatonin PO 5 mg HS PRN Administration INSOMNIA Metformin HCl 500 mg 09/28/19 07:00 10/07/19 06:16 Glucophage Xr - PO 500 mg DAILY@0700 [facility] Administration Nystatin 1 applic 10/06/19 22:00 10/06/19 21:16 Mycostatin Cream - TP 1 applic BID [facility] Administration Sacubitril/Valsartan 1 tab 09/30/19 22:00 10/06/19 21:21 Entresto 24 Mg-26 Mg Tablet PO 1 tab BID [facility] Administration Tramadol HCl 50 mg 09/29/19 03:27 10/06/19 01:07 Ultram - PO 50 mg Q6H PRN Administration PAIN LEVEL 4 - 6 Warfarin Sodium 5 mg 10/06/19 18:00 10/06/19 17:09 Coumadin - PO 5 mg DAILY@1800 [facility] Administration ASSESSMENT/PLAN: Pt. is a 68 y.o. F w/ PMHx. of COPD, DM, HTN, HFrEF (EF:30-35%), Hx. of CVAs, R. Eye Blindness, L.Breast CA(s/p lumpectomy, no chemo or RT), HLD and GERD admitted for weakness. #Macrocytic Anemia MCV: 97.8 borderline macrocytosis B12, Folate, LDH wnl Iron studies show TSAT of 24% Reticulocytes: 1.49 -->inappropriate response Pt. is s/p 1 unit of pRBCs with appropriate correction likely 2/2 chronic disease and CKD, macrocytosis may be secondary to reticulocytosis keep HgB above 8 given cardiac comorbidities Hx. of kappa light chains but no M-spike f/u BM Bx results FOBT Neg x 3 Pt. will require following up mediastinal nodes with repeat imaging after discharge Dispo: We will continue to follow the patient. Thank you for this consultative opportunity. Visit type - Emergency Visit Emergency Visit: Yes ED Registration Date: 10/03/19 Care time: The patient presented to the Emergency Department on the above date and was hospitalized for further evaluation of their emergent condition. - New Patient This patient is new to me today: No - Critical Care Critical Care patient: No - Discharge Referral Referred to [facility] Med P.C.: No - Medication Review Med list reviewed for High Risk Meds patients 65 and older: Yes ATTENDING PHYSICIAN STATEMENT I saw and evaluated the patient. I reviewed the resident's note and discussed the case with the resident. I agree with the resident's findings and plan as documented. SUBJECTIVE: OBJECTIVE: ASSESSMENT AND PLAN:
[2019-10-07] MEDS ORDERED: ENOXAPARIN NA (PORCINE) 80 MG/0.8 ML DISP.SYRIN SQ ONE (11:45)
[2019-10-07] MEDS: NYSTATIN 100,000 UNIT/GM TOPICAL CREAM 15 GM TUBE TP SCH ×2 (11:49→21:20)
--- NOTE | 2019-10-07 13:08 | PN ---
Progress Note (short form) - Note Progress Note: Active Medications Acetaminophen (Tylenol -) 650 mg PO Q6H PRN PRN Reason: PAIN LEVEL 3-10 Last Admin: 10/01/19 02:43 Dose: 650 mg Documented by: Anastrozole (Arimidex -) 1 mg PO DAILY [facility] Last Admin: 10/07/19 10:27 Dose: 1 mg Documented by: Atorvastatin Calcium (Lipitor -) 10 mg PO HS [facility] Last Admin: 10/06/19 21:16 Dose: 10 mg Documented by: Bupropion HCl (Wellbutrin -) 75 mg PO Q12H [facility] Last Admin: 10/07/19 06:16 Dose: 75 mg Documented by: Carvedilol (Coreg -) 25 mg PO BID [facility] Last Admin: 10/07/19 10:27 Dose: 25 mg Documented by: Enoxaparin Sodium (Lovenox -) 80 mg SQ BID [facility] Eplerenone (Eplerenone) 25 mg PO DAILY [facility] Last Admin: 10/07/19 10:27 Dose: 25 mg Documented by: Insulin Aspart ([facility]olog [facility] Sliding [facility] -) [facility] Protocol Last Admin: 10/07/19 06:12 Dose: Not Given Documented by: Melatonin (Melatonin) 5 mg PO HS PRN PRN Reason: INSOMNIA Last Admin: 10/06/19 21:21 Dose: 5 mg Documented by: Metformin HCl (Glucophage Xr -) 500 mg PO DAILY@0700 [facility] Last Admin: 10/07/19 06:16 Dose: 500 mg Documented by: Nystatin (Mycostatin Cream -) 1 applic TP BID [facility] Last Admin: 10/07/19 11:49 Dose: 1 applic Documented by: Sacubitril/Valsartan (Entresto 24 Mg-26 Mg Tablet) 1 tab PO BID [facility] Last Admin: 10/07/19 10:27 Dose: 1 tab Documented by: Tramadol HCl (Ultram -) 50 mg PO Q6H PRN PRN Reason: PAIN LEVEL 4 - 6 Last Admin: 10/06/19 01:07 Dose: 50 mg Documented by: Warfarin Sodium (Coumadin -) 5 mg PO DAILY@1800 [facility] Last Admin: 10/06/19 17:09 Dose: 5 mg Documented by: Laboratory Results - last 24 hr 08/03/20 08/06/20 08/07/20 12:28 16:30 05:27 WBC RBC Hgb Hct MCV MCH MCHC RDW Plt Count MPV PT with INR INR Sodium Potassium Chloride Carbon Dioxide Anion Gap BUN Creatinine Est GFR (CKD-EPI)AfAm Est GFR (CKD-EPI)NonAf POC Glucometer 76 82 Random Glucose Calcium Stool Occult Blood Blood Type A POSITIVE Antibody Screen Negative Crossmatch See Detail 10/07/19 10/07/19 10/07/19 06:58 06:58 06:58 WBC 6.3 RBC 2.69 L Hgb 8.5 L Hct 25.8 L MCV 96.0 MCH 31.5 MCHC 32.8 RDW 16.6 H Plt Count 211 MPV 7.9 PT with INR 15.30 H INR 1.29 H Sodium 141 Potassium 4.9 Chloride 110 H Carbon Dioxide 26 Anion Gap 4 L BUN 49.9 H Creatinine 1.7 H Est GFR (CKD-EPI)AfAm 34.80 Est GFR (CKD-EPI)NonAf 30.03 POC Glucometer Random Glucose 92 Calcium 9.1 Stool Occult Blood Blood Type Antibody Screen Crossmatch 10/07/19 10:00 WBC RBC Hgb Hct MCV MCH MCHC RDW Plt Count MPV PT with INR INR Sodium Potassium Chloride Carbon Dioxide Anion Gap BUN Creatinine Est GFR (CKD-EPI)AfAm Est GFR (CKD-EPI)NonAf POC Glucometer Random Glucose Calcium Stool Occult Blood Negative Blood Type Antibody Screen Crossmatch Vital Signs Temperature 97.7 F 10/07/19 06:00 Pulse Rate 64 10/07/19 06:00 Respiratory Rate 20 10/07/19 06:00 Blood Pressure 157/63 10/07/19 06:00 O2 Sat by Pulse Oximetry (%) 94 L 10/07/19 09:59 CC: no new complaints ```````````````````````````````````` skin--fungal rash under breasts eyes--asymmetric, anicteric heart--RR lungs--unlabored; distant abd--benign ext--trace edema neuro--alert; coherent; speech is fluent; no gross motor deficits ``````````````````````````````````````````````````````` Summ > Anemia--exact nature as of yet unknown; occult blood loss vs production problem; hemolysis appears less likely, retic is WNL. She is s/p PC transfusion. She is s/p BM Bx; slight drop in Hgb again noted today. > Renal insuff--grossly unchanged > ASHD--low Ej State; most recent one done here at [facility] a few months ago again showed diminished Ej FX; indicating HF with low Ej FX; and was placed on entresto which she will continue to need; CXR did not show any presence of CHF or effusion PLAN: entresto added to BB; will titrate up the Coreg to 25mg BID > DM--most readings are in low 100's > Shoulder pain--improved > Lt Leg wound infection--overlying a biopsied BC skin Ca; on dual Abs; culture taken shows no presence of msSA or Ecoli; Abs stopped > [facility] a/c--for stroke prophylaxis; now on SC lovenox, because INR still too low. > Constipation--had BM. > fungal derm--under breasts; receiving antifungal ~~~~~~~~~~~~~~ Dr Caputo Problem List - Problems (1) Hypotension Code(s): I95.9 - HYPOTENSION, UNSPECIFIED Qualifiers: Hypotension type: hypotension due to hypovolemia Qualified Code(s): I95.89 - Other hypotension; E86.1 - Hypovolemia (2) Dehydration Code(s): E86.0 - DEHYDRATION (3) Anemia Code(s): D64.9 - ANEMIA, UNSPECIFIED Qualifiers: Anemia type: other cause Other causes of anemia: other cause, not classified Qualified Code(s): D64.89 - Other specified anemias (4) Anticoagulant long-term use Code(s): Z79.01 - MCFP (CURRENT) USE OF 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 (5) Breast cancer, left Code(s): C50.912 - MALIGNANT NEOPLASM OF UNSPECIFIED SITE OF LEFT FEMALE BREAST Qualifiers: Breast location: unspecified site of breast Estrogen receptor status: unspecified Patient sex: female Qualified Code(s): C50.912 - Malignant neoplasm of unspecified site of left female breast (6) COPD (chronic obstructive pulmonary disease) Code(s): J44.9 - CHRONIC OBSTRUCTIVE PULMONARY DISEASE, UNSPECIFIED Qualifiers: COPD type: unspecified COPD Qualified Code(s): J44.9 - Chronic obstructive pulmonary disease, unspecified (7) CHF (congestive heart failure) Code(s): I50.9 - HEART FAILURE, UNSPECIFIED Qualifiers: Heart failure type: systolic Heart failure chronicity: chronic Qualified Code(s): I50.22 - Chronic systolic (congestive) heart failure (8) Depression Code(s): F32.9 - MAJOR DEPRESSIVE DISORDER, SINGLE EPISODE, UNSPECIFIED Qualifiers: Depression Type: major depressive disorder Major depression episode severity: unspecified (9) Diabetes mellitus type 2, noninsulin dependent Code(s): E11.9 - TYPE 2 DIABETES MELLITUS WITHOUT COMPLICATIONS (11) Visual impairment Code(s): H54.7 - UNSPECIFIED VISUAL LOSS (12) Infected wound Code(s): T14.8XXA - OTHER INJURY OF UNSPECIFIED BODY REGION, INITIAL ENCOUNTER; L08.9 - LOCAL INFECTION OF THE SKIN AND SUBCUTANEOUS TISSUE, UNSP (13) Skin neoplasm malignant Code(s): C44.90 - UNSPECIFIED MALIGNANT NEOPLASM OF SKIN, UNSPECIFIED (14) Elderly person living alone Code(s): Z60.2 - PROBLEMS RELATED TO LIVING ALONE
[2019-10-07] MEDS: WARFARIN NA 5 MG TABLET PO SCH (18:31)
[2019-10-07] MEDS: ENOXAPARIN NA (PORCINE) 80 MG/0.8 ML DISP.SYRIN SQ SCH (21:20)
[2019-10-07] MEDS: ATORVASTATIN CA 10 MG TABLET (FP) PO SCH (21:20)
[2019-10-07] MEDS: MELATONIN 5 MG TABLETS PO PRN (21:21)
[2019-10-08] MEDS: buPROPion HCL 75 MG TABLET PO SCH ×2 (06:30→17:17)
[2019-10-08] MEDS: INSULIN SLIDING SCALE (NOVOLOG) 1 VIAL SQ SCH ×2 (06:31→16:45)
[2019-10-08 08:00] LABS: HEMATOCRIT 27.6 % (32.4-45.2); HEMOGLOBIN 9.1 GM/dL (10.7-15.3); MCH 32.2 pg (25.7-33.7); MCHC 33.1 g/dl (32.0-36.0); MEAN PLT VOLUME 8.2 fl (7.5-11.1); PLATELET COUNT 193 K/MM3 (134-434); RBC 2.84 M/mm3 (3.60-5.2); RDW 16.8 % (11.6-15.6); WHITE BLOOD COUNT 6.3 K/mm3 (4.0-10.0)
[2019-10-08 08:22] LABS: BLOOD UREA NITROGEN 48.9 mg/dL (7-18); CALCIUM 8.8 mg/dL (8.5-10.1); CREATININE 1.6 mg/dL (0.55-1.3); POTASSIUM 5.1 mmol/L (3.5-5.1)
[2019-10-08] MEDS ORDERED: PT OWN MED DRAWER 7, Y5N ONE ×2 (09:20→17:13)
[2019-10-08] MEDS: CARVEDILOL 25 MG TABLET (FP) PO SCH ×2 (09:26→21:56)
[2019-10-08] MEDS: ENOXAPARIN NA (PORCINE) 80 MG/0.8 ML DISP.SYRIN SQ SCH ×2 (09:26→21:57)
[2019-10-08] MEDS: ANASTROZOLE 1 MG TABLET PO SCH (09:27)
[2019-10-08] MEDS: SACUBITRIL/VALSARTAN 24 MG-26 MG TABLET PO SCH ×2 (09:27→21:56)
[2019-10-08] MEDS: EPLERENONE 25 MG TABLET PO SCH (09:28)
[2019-10-08] MEDS: NYSTATIN 100,000 UNIT/GM TOPICAL CREAM 15 GM TUBE TP SCH ×2 (09:30→21:57)
[2019-10-08 10:33] LABS: INR 1.35 (0.83-1.09)
--- NOTE | 2019-10-08 13:09 | PN ---
Progress Note (short form) - Note Progress Note: Active Medications Acetaminophen (Tylenol -) 650 mg PO Q6H PRN PRN Reason: PAIN LEVEL 3-10 Last Admin: 10/01/19 02:43 Dose: 650 mg Documented by: Anastrozole (Arimidex -) 1 mg PO DAILY [facility] Last Admin: 10/08/19 09:27 Dose: 1 mg Documented by: Atorvastatin Calcium (Lipitor -) 10 mg PO HS [facility] Last Admin: 10/07/19 21:20 Dose: 10 mg Documented by: Bupropion HCl (Wellbutrin -) 75 mg PO Q12H [facility] Last Admin: 10/08/19 06:30 Dose: 75 mg Documented by: Carvedilol (Coreg -) 25 mg PO BID [facility] Last Admin: 10/08/19 09:26 Dose: 25 mg Documented by: Enoxaparin Sodium (Lovenox -) 80 mg SQ BID [facility] Last Admin: 10/08/19 09:26 Dose: 80 mg Documented by: Eplerenone (Eplerenone) 25 mg PO DAILY [facility] Last Admin: 10/08/19 09:28 Dose: 25 mg Documented by: Insulin Aspart (Novolog Vial Sliding Scale -) [facility]; Protocol Last Admin: 10/08/19 06:31 Dose: Not Given Documented by: Melatonin (Melatonin) 5 mg PO HS PRN PRN Reason: INSOMNIA Last Admin: 10/07/19 21:21 Dose: 5 mg Documented by: Metformin HCl (Glucophage Xr -) 500 mg PO DAILY@0700 [facility] Last Admin: 10/08/19 06:31 Dose: 500 mg Documented by: Nystatin (Mycostatin Cream -) 1 applic TP BID [facility] Last Admin: 10/08/19 09:30 Dose: 1 applic Documented by: Sacubitril/Valsartan (Entresto 24 Mg-26 Mg Tablet) 1 tab PO BID [facility] Last Admin: 10/08/19 09:27 Dose: 1 tab Documented by: Tramadol HCl (Ultram -) 50 mg PO Q6H PRN PRN Reason: PAIN LEVEL 4 - 6 Last Admin: 10/06/19 01:07 Dose: 50 mg Documented by: Warfarin Sodium (Coumadin -) 5 mg PO DAILY@1800 [facility] Last Admin: 10/07/19 18:31 Dose: 5 mg Documented by: Laboratory Results - last 24 hr 10/07/19 10/08/19 10/08/19 17:22 06:29 06:35 WBC 6.3 RBC 2.84 L Hgb 9.1 L Hct 27.6 L MCV 97.0 H MCH 32.2 MCHC 33.1 RDW 16.8 H Plt Count 193 MPV 8.2 PT with INR INR Sodium Potassium Chloride Carbon Dioxide Anion Gap BUN Creatinine Est GFR (CKD-EPI)AfAm Est GFR (CKD-EPI)NonAf POC Glucometer 141 92 Random Glucose Calcium 10/08/19 10/08/19 06:35 09:36 WBC RBC Hgb Hct MCV MCH MCHC RDW Plt Count MPV PT with INR 16.00 H INR 1.35 H Sodium 142 Potassium 5.1 Chloride 112 H Carbon Dioxide 21 Anion Gap 9 BUN 48.9 H Creatinine 1.6 H Est GFR (CKD-EPI)AfAm 37.45 Est GFR (CKD-EPI)NonAf 32.31 POC Glucometer Random Glucose 87 Calcium 8.8 Vital Signs Temperature 97.8 F 10/08/19 09:00 Pulse Rate 61 10/08/19 09:00 Respiratory Rate 19 10/08/19 09:00 Blood Pressure 150/56 L 10/08/19 09:00 O2 Sat by Pulse Oximetry (%) 99 10/08/19 09:00 CC: feels okay at this time ```````````````````````````````````` skin--red rash under breasts eyes--asymmetric, anicteric heart--RR lungs--unlabored; distant abd--benign ext--trace edema neuro--alert; coherent; speech is fluent; no gross motor deficits ``````````````````````````````````````````````````````` Summ > Anemia--not new, exact cause as of yet unclear; (occult blood loss vs production problem); hemolysis appears less likely, retic is WNL. She is s/p 1 PC transfusion. Stools for OB repeatedly negative. She is s/p BM Bx and no results yet available. There is a rise in the H/h today; will check daily; transfuse if hgb goes under 8.0 > Renal insuff--Bun/creat is grossly unchanged; is off lasix > CHF--chronic, with reduced Ej State; most recent ECHO done here at [facility] a few months ago showing HF with fairly low Ej FX; and was placed on entresto which she will continue to need; CXR did not show any presence of CHF or effusion PLAN: eplerenone added to BB and entresto. > DM--most readings are in mid to low 100's > Shoulder pain--improved > Lt Leg wound infection--overlying a biopsied BC skin Ca; on dual Abs; culture taken shows no presence of msSA or Ecoli; Abs stopped > Mcfp a/c--for stroke prophylaxis; now on SC lovenox, because INR still too low. > Constipation--had BM. > fungal derm--under breasts; receiving antifungal > COPD--subclinical; stable and has not required any inhalers > Hypotension--2nd state of dehydration; now resolved ~~~~~~~~~~~~~~ Dr Caputo ````````````````````````````````` (Dr Briones covering Thursday) Problem List - Problems (1) Hypotension Code(s): I95.9 - HYPOTENSION, UNSPECIFIED Qualifiers: Hypotension type: hypotension due to hypovolemia Qualified Code(s): I95.89 - Other hypotension; E86.1 - Hypovolemia (2) Dehydration Code(s): E86.0 - DEHYDRATION (3) Anemia Code(s): D64.9 - ANEMIA, UNSPECIFIED Qualifiers: Anemia type: other cause Other causes of anemia: other cause, not classified Qualified Code(s): D64.89 - Other specified anemias (4) Anticoagulant long-term use Code(s): Z79.01 - DETENTION (CURRENT) USE OF 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 (5) Breast cancer, left Code(s): C50.912 - MALIGNANT NEOPLASM OF UNSPECIFIED SITE OF LEFT FEMALE BREAST Qualifiers: Breast location: unspecified site of breast Estrogen receptor status: unspecified Patient sex: female Qualified Code(s): C50.912 - Malignant neoplasm of unspecified site of left female breast (6) COPD (chronic obstructive pulmonary disease) Code(s): J44.9 - CHRONIC OBSTRUCTIVE PULMONARY DISEASE, UNSPECIFIED Qualifiers: COPD type: unspecified COPD Qualified Code(s): J44.9 - Chronic obstructive pulmonary disease, unspecified (7) CHF (congestive heart failure) Code(s): I50.9 - HEART FAILURE, UNSPECIFIED Qualifiers: Heart failure type: systolic Heart failure chronicity: chronic Qualified Code(s): I50.22 - Chronic systolic (congestive) heart failure (8) Depression Code(s): F32.9 - MAJOR DEPRESSIVE DISORDER, SINGLE EPISODE, UNSPECIFIED Qualifiers: Depression Type: major depressive disorder Major depression episode severity: unspecified (9) Diabetes mellitus type 2, noninsulin dependent Code(s): E11.9 - TYPE 2 DIABETES MELLITUS WITHOUT COMPLICATIONS (11) Visual impairment Code(s): H54.7 - UNSPECIFIED VISUAL LOSS (12) Infected wound Code(s): T14.8XXA - OTHER INJURY OF UNSPECIFIED BODY REGION, INITIAL ENCOUNTER; L08.9 - LOCAL INFECTION OF THE SKIN AND SUBCUTANEOUS TISSUE, UNSP (13) Skin neoplasm malignant Code(s): C44.90 - UNSPECIFIED MALIGNANT NEOPLASM OF SKIN, UNSPECIFIED (14) Elderly person living alone Code(s): Z60.2 - PROBLEMS RELATED TO LIVING ALONE
[2019-10-08] MEDS: WARFARIN NA 5 MG TABLET PO SCH (17:18)
--- NOTE | 2019-10-08 19:28 | PN ---
Progress Note, Physician Chief Complaint: Pt A&Ox3; denies chest pain or dyspnea. History of Present Illness: Ms. Mejía is a 68y white woman with PM hx of Rt pleural effusion, ashd, severe systolic chf, copd, anemia, basal cell sp biopsy that cultured + for bacteria on levaquin and keflex brought in to the ED for evluation of presents for hypotension. Pt had been feeling dizzy/lightheaded with mild sob for several days. She went for a routine visit with her PMD; her bp--> ED for evaluation. She denies any other associated symptoms including any fevers, chills, nausea, vomiting, diaphoresis, chest pain, shortness of breath, palpitations, back pain, neck pain, abdominal pain, diarrhea, melena, dysuria. Patient has not had any medication changes recently besides the addition of the antibiotics. Patient states that she feels fine when she is at rest; she only feels lightheaded when she stands up and is walking around. No associated vision changes, numbness, tingling, weakness - Current Medication List Current Medications: Active Medications Acetaminophen (Tylenol -) 650 mg PO Q6H PRN PRN Reason: PAIN LEVEL 3-10 Last Admin: 10/01/19 02:43 Dose: 650 mg Documented by: Anastrozole (Arimidex -) 1 mg PO DAILY [facility] Last Admin: 10/08/19 09:27 Dose: 1 mg Documented by: Atorvastatin Calcium (Lipitor -) 10 mg PO HS [facility] Last Admin: 10/07/19 21:20 Dose: 10 mg Documented by: Bupropion HCl (Wellbutrin -) 75 mg PO Q12H [facility] Last Admin: 10/08/19 17:17 Dose: 75 mg Documented by: Carvedilol (Coreg -) 25 mg PO BID [facility] Last Admin: 10/08/19 09:26 Dose: 25 mg Documented by: Enoxaparin Sodium (Lovenox -) 80 mg SQ BID [facility] Last Admin: 10/08/19 09:26 Dose: 80 mg Documented by: Eplerenone (Eplerenone) 25 mg PO DAILY [facility] Last Admin: 10/08/19 09:28 Dose: 25 mg Documented by: Insulin Aspart (Novolog Vial Sliding Scale -) [facility]; Protocol Last Admin: 10/08/19 16:45 Dose: Not Given Documented by: Melatonin (Melatonin) 5 mg PO HS PRN PRN Reason: INSOMNIA Last Admin: 10/07/19 21:21 Dose: 5 mg Documented by: Metformin HCl (Glucophage Xr -) 500 mg PO DAILY@0700 [facility] Last Admin: 10/08/19 06:31 Dose: 500 mg Documented by: Nystatin (Mycostatin Cream -) 1 applic TP BID [facility] Last Admin: 10/08/19 09:30 Dose: 1 applic Documented by: Sacubitril/Valsartan (Entresto 24 Mg-26 Mg Tablet) 1 tab PO BID [facility] Last Admin: 10/08/19 09:27 Dose: 1 tab Documented by: Tramadol HCl (Ultram -) 50 mg PO Q6H PRN PRN Reason: PAIN LEVEL 4 - 6 Last Admin: 10/06/19 01:07 Dose: 50 mg Documented by: Warfarin Sodium (Coumadin -) 5 mg PO DAILY@1800 [facility] Last Admin: 10/08/19 17:18 Dose: 5 mg Documented by: - Objective Vital Signs: Vital Signs Temperature 98.1 F 10/08/19 18:00 Pulse Rate 61 10/08/19 18:00 Respiratory Rate 18 10/08/19 18:00 Blood Pressure 146/46 L 10/08/19 18:00 O2 Sat by Pulse Oximetry (%) 100 10/08/19 18:00 Constitutional: Yes: Anxious Eyes: Yes: WNL HENT: Yes: WNL Neck: Yes: WNL Cardiovascular: Yes: Murmur (2/6 PAOLA, RSB-->base), S1, S2, S4 Respiratory: Yes: Regular Gastrointestinal: Yes: Soft, Abdomen, Obese ...Rectal Exam: Yes: Deferred Genitourinary: No: Anuria Breast(s): Yes: WNL Musculoskeletal: Yes: Muscle Weakness Edema: Yes Edema: LLE: Trace, RLE: Trace Peripheral Pulses WNL: Yes Integumentary: Yes: Other (s/p BM biopsy) Neurological: Yes: Alert, Oriented, Weakness Psychiatric: Yes: Alert, Oriented, Other (anxiety) Labs: CBC, BMP 10/08/19 06:35 10/08/19 06:35 INR, PTT INR 1.35 (0.83-1.09) H 10/08/19 09:36 Abnormal Lab Results 10/09/19 10/09/19 06:50 06:50 RBC 2.65 L Hgb 8.4 L Hct 25.4 L RDW 16.2 H Potassium 5.2 H Chloride 112 H BUN 48.1 H Creatinine 1.6 H - ....Imaging Chest X-ray: Image Reviewed (no acute process) EKG: Image Reviewed (NSR; ? old anterior GA) Assessment/Plan 1. Orthostatic near syncope resolved 2. Nonischemic cardiomyopathy LVEF 30-35% 3. Severe MR 4. History of CVA with left MCA thrombus and subtherapeutic INR 5. 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 COPD with Chronic Hypoxic Respiratory Failure and long smoking history 7. HTN 8. Hypercholesterolemia 9. Macrocytic anemia r/o MDS 10. Type 2 DM 11. Renal artery stenosis 12. Acute on CKD improved 13. Mild 14. Breast cancer PLAN: 1. Holding furosemide pending renal fxn recovery, await bone marrow sent for flow/fish/cytogenetics/myeloid molecular profile 2. Continue Carvedilol 25 mg mg BID, Lipitor 10 mg QHS, Entresto 24/26 bid and resumed eplerenone 25 qd as renal fxn stabilized: f/u K+ in am (5.1 today: borderline elevated). 3. Heparin gtt->coumadin per INR 2.0-3.[address]-guided bone marrow biopsy, monitor Hgb 4. O2 to keep SpO2 >90% and inhaled bronchodilators as needed 5. Transfuse to maintain Hgb>8.0 6. Encourage ambulation /PT 7. Plan on f/u ECHO to better assess valve status, particularly aortic valve 8. Eventual f/u with Dr. Mahoney upon d/c ,
[2019-10-08] MEDS: ATORVASTATIN CA 10 MG TABLET (FP) PO SCH (21:56)
[2019-10-08] MEDS: MELATONIN 5 MG TABLETS PO PRN (21:57)
[2019-10-09] MEDS: INSULIN SLIDING SCALE (NOVOLOG) 1 VIAL SQ SCH ×2 (06:13→16:49)
[2019-10-09] MEDS: buPROPion HCL 75 MG TABLET PO SCH ×2 (06:15→17:24)
[2019-10-09 07:47] LABS: INR 1.46 (0.83-1.09); PROTHROMBIN TIME (PATIENT) 17.3 SEC (9.7-13.0)
[2019-10-09 07:52] LABS: HEMOGLOBIN 8.4 GM/dL (10.7-15.3); MEAN PLT VOLUME 7.9 fl (7.5-11.1); RDW 16.2 % (11.6-15.6); WHITE BLOOD COUNT 5.8 K/mm3 (4.0-10.0)
[2019-10-09 07:57] LABS: HEMATOCRIT 25.4 % (32.4-45.2); MCH 31.8 pg (25.7-33.7); MCHC 33.2 g/dl (32.0-36.0); MEAN CELL VOLUME 95.9 fl (80-96); PLATELET COUNT 205 K/MM3 (134-434); RBC 2.65 M/mm3 (3.60-5.2)
[2019-10-09 08:40] LABS: BLOOD UREA NITROGEN 48.1 mg/dL (7-18); CALCIUM 8.6 mg/dL (8.5-10.1); CREATININE 1.6 mg/dL (0.55-1.3); POTASSIUM 5.2 mmol/L (3.5-5.1)
[2019-10-09] MEDS ORDERED: PT OWN MED DRAWER 7, Y5N ONE (08:57)
[2019-10-09] MEDS: ENOXAPARIN NA (PORCINE) 80 MG/0.8 ML DISP.SYRIN SQ SCH ×2 (09:06→21:36)
[2019-10-09] MEDS: ANASTROZOLE 1 MG TABLET PO SCH (09:06)
[2019-10-09] MEDS: EPLERENONE 25 MG TABLET PO SCH (09:07)
[2019-10-09] MEDS: SACUBITRIL/VALSARTAN 24 MG-26 MG TABLET PO SCH ×2 (09:07→21:38)
[2019-10-09] MEDS: CARVEDILOL 25 MG TABLET (FP) PO SCH ×2 (09:07→21:37)
[2019-10-09] MEDS: NYSTATIN 100,000 UNIT/GM TOPICAL CREAM 15 GM TUBE TP SCH ×2 (09:08→21:37)
--- NOTE | 2019-10-09 13:38 | PN ---
Progress Note (short form) - Note Progress Note: COVERING DR HART Pt examined events noted no complaints she is lying in bed, comfortable Vital Signs - 24 hr 10/08/19 10/08/19 10/08/19 14:00 18:00 21:00 Temperature 97.6 F 98.1 F Pulse Rate 63 61 Respiratory 18 18 Rate Blood Pressure 109/49 L 146/46 L O2 Sat by Pulse 100 100 97 Oximetry (%) 10/08/19 10/09/19 10/09/19 21:39 05:00 09:00 Temperature 98.0 F 97.9 F Pulse Rate 67 66 64 Respiratory 18 18 18 Rate Blood Pressure 145/55 L 146/59 L 151/70 O2 Sat by Pulse 97 98 100 Oximetry (%) Current Medications Generic Name Dose Route Start Last Admin Trade Name Freq PRN Reason Stop Dose Admin Acetaminophen 650 mg 09/27/19 23:48 10/01/19 02:43 Tylenol - PO 650 mg Q6H PRN Administration PAIN LEVEL 3-10 Anastrozole 1 mg 09/28/19 10:00 10/09/19 09:06 Arimidex - PO 1 mg DAILY [facility] Administration Atorvastatin Calcium 10 mg 09/28/19 22:00 10/08/19 21:56 Lipitor - PO 10 mg HS [facility] Administration Bupropion HCl 75 mg 09/27/19 18:00 10/09/19 06:15 Wellbutrin - PO 75 mg Q12H [facility] Administration Carvedilol 25 mg 10/02/19 10:00 10/09/19 09:07 Coreg - PO 25 mg BID [facility] Administration Enoxaparin Sodium 80 mg 10/07/19 22:00 10/09/19 09:06 Lovenox - SQ 80 mg BID [facility] Administration Eplerenone 25 mg 10/07/19 10:00 10/09/19 09:07 Eplerenone PO 25 mg DAILY [facility] Administration Insulin Aspart 1 vial 09/28/19 07:00 10/09/19 06:13 Novolog Vial Sliding Scale - SQ Not Given BIDAC [facility] Protocol Melatonin 5 mg 09/27/19 23:06 10/08/19 21:57 Melatonin PO 5 mg HS PRN Administration INSOMNIA Metformin HCl 500 mg 09/28/19 07:00 10/09/19 06:15 Glucophage Xr - PO 500 mg DAILY@0700 [facility] Administration Nystatin 1 applic 10/06/19 22:00 10/09/19 09:08 Mycostatin Cream - TP 1 applic BID [facility] Administration Sacubitril/Valsartan 1 tab 09/30/19 22:00 10/09/19 09:07 Entresto 24 Mg-26 Mg Tablet PO 1 tab BID [facility] Administration Tramadol HCl 50 mg 09/29/19 03:27 10/06/19 01:07 Ultram - PO 50 mg Q6H PRN Administration PAIN LEVEL 4 - 6 Warfarin Sodium 5 mg 10/06/19 18:00 10/08/19 17:18 Coumadin - PO 5 mg DAILY@1800 [facility] Administration Laboratory Results - last 24 hr 10/08/19 10/09/19 10/09/19 14:53 06:12 06:50 WBC 5.8 RBC 2.65 L Hgb 8.4 L Hct 25.4 L MCV 95.9 MCH 31.8 MCHC 33.2 RDW 16.2 H Plt Count 205 MPV 7.9 PT with INR INR Sodium Potassium Chloride Carbon Dioxide Anion Gap BUN Creatinine Est GFR (CKD-EPI)AfAm Est GFR (CKD-EPI)NonAf POC Glucometer 93 Random Glucose Calcium Stool Occult Blood Negative 10/09/19 10/09/19 10/09/19 06:50 06:50 11:48 WBC RBC Hgb Hct MCV MCH MCHC RDW Plt Count MPV PT with INR 17.30 H INR 1.46 H Sodium 143 Potassium 5.2 H Chloride 112 H Carbon Dioxide 22 Anion Gap 9 BUN 48.1 H Creatinine 1.6 H Est GFR (CKD-EPI)AfAm 37.45 Est GFR (CKD-EPI)NonAf 32.31 POC Glucometer 90 Random Glucose 96 Calcium 8.6 Stool Occult Blood 10/09/19 12:25 WBC RBC Hgb Hct MCV MCH MCHC RDW Plt Count MPV PT with INR INR Sodium Potassium Chloride Carbon Dioxide Anion Gap BUN Creatinine Est GFR (CKD-EPI)AfAm Est GFR (CKD-EPI)NonAf POC Glucometer Random Glucose Calcium Stool Occult Blood Negative S1 S2 RRR Lungs clear Abd- soft, obese, NT no edema left lower leg wound-- dressing in place A/P Dehydration-- resolved Acute on CKD-- creatinine is stable H/O CVA with MCA thrombus-- on Lovenox and Coumadin--> INR still subtherapeutic, continue with current dose coumadin and monitor INR-- slowly rising INR , monitor for bleeding Anemia--occult blood negative, slight decrease in Hb today - to monitor- Hematology eval noted, s/p BM biopsy -- no results available CHF-- compensated clinically left leg wound-- s/p antibiotics Hyperkalemia-- potassium slight elevated-- low dose kayexalate Problem List - Problems (1) Hypotension Code(s): I95.9 - HYPOTENSION, UNSPECIFIED Qualifiers: Hypotension type: hypotension due to hypovolemia Qualified Code(s): I95.89 - Other hypotension; E86.1 - Hypovolemia (2) ATN (acute tubular necrosis) Code(s): N17.0 - ACUTE KIDNEY FAILURE WITH TUBULAR NECROSIS (3) Acute kidney injury Code(s): N17.9 - ACUTE KIDNEY FAILURE, UNSPECIFIED (4) Anemia Code(s): D64.9 - ANEMIA, UNSPECIFIED Qualifiers: Anemia type: other cause Other causes of anemia: other cause, not classified Qualified Code(s): D64.89 - Other specified anemias (5) Anticoagulant long-term use Code(s): Z79.01 - PRISON (CURRENT) USE OF 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 (6) COPD without exacerbation Code(s): J44.9 - CHRONIC OBSTRUCTIVE PULMONARY DISEASE, UNSPECIFIED (7) Dehydration Code(s): E86.0 - DEHYDRATION (8) Diabetes mellitus type 2, noninsulin dependent Code(s): E11.9 - TYPE 2 DIABETES MELLITUS WITHOUT COMPLICATIONS (9) H/O: CVA (cerebrovascular accident) Code(s): Z86.73 - PRSNL HX OF TIA (TIA), AND CEREB INFRC W/O RESID DEFICITS
[2019-10-09] MEDS ORDERED: SODIUM POLYSTYRENE SULFONATE 15 GM/60 ML BOTTLE PO ONE (17:02)
[2019-10-09] MEDS: WARFARIN NA 5 MG TABLET PO SCH (17:17)
[2019-10-09] MEDS: ATORVASTATIN CA 10 MG TABLET (FP) PO SCH (21:37)
[2019-10-09] MEDS: MELATONIN 5 MG TABLETS PO PRN (21:37)
[2019-10-10] MEDS: INSULIN SLIDING SCALE (NOVOLOG) 1 VIAL SQ SCH ×2 (06:08→17:31)
[2019-10-10] MEDS: buPROPion HCL 75 MG TABLET PO SCH ×2 (06:29→17:28)
--- NOTE | 2019-10-10 08:00 | PN ---
Progress Note, Physician Chief Complaint: Pt A&Ox3; denies chest pain or dyspnea. No pain at BM biopsy site. History of Present Illness: Ms. Mejía is a 68yo white woman with PM hx of Rt pleural effusion, ashd, severe systolic chf, copd, anemia, basal cell sp biopsy that cultured + for bacteria on levaquin and keflex brought in to the ED for evluation of presents for hypotension. Pt had been feeling dizzy/lightheaded with mild sob for several days. She went for a routine visit with her PMD; her bp--> ED for evaluation. She denies any other associated symptoms including any fevers, chills, nausea, vomiting, diaphoresis, chest pain, shortness of breath, palpitations, back pain, neck pain, abdominal pain, diarrhea, melena, dysuria. Patient has not had any medication changes recently besides the addition of the antibiotics. Patient states that she feels fine when she is at rest; she only feels lightheaded when she stands up and is walking around. No associated vision changes, numbness, tingling, weakness - Current Medication List Current Medications: Active Medications Acetaminophen (Tylenol -) 650 mg PO Q6H PRN PRN Reason: PAIN LEVEL 3-10 Last Admin: 10/01/19 02:43 Dose: 650 mg Documented by: Anastrozole (Arimidex -) 1 mg PO DAILY [facility] Last Admin: 10/09/19 09:06 Dose: 1 mg Documented by: Atorvastatin Calcium (Lipitor -) 10 mg PO HS [facility] Last Admin: 10/09/19 21:37 Dose: 10 mg Documented by: Bupropion HCl (Wellbutrin -) 75 mg PO Q12H [facility] Last Admin: 10/10/19 06:29 Dose: 75 mg Documented by: Carvedilol (Coreg -) 25 mg PO BID [facility] Last Admin: 10/09/19 21:37 Dose: 25 mg Documented by: Enoxaparin Sodium (Lovenox -) 80 mg SQ BID [facility] Last Admin: 10/09/19 21:36 Dose: 80 mg Documented by: Insulin Aspart (Novolog Vial Sliding Scale -) [facility] Protocol Last Admin: 10/10/19 06:08 Dose: Not Given Documented by: Melatonin (Melatonin) 5 mg PO HS PRN PRN Reason: INSOMNIA Last Admin: 10/09/19 21:37 Dose: 5 mg Documented by: Metformin HCl (Glucophage Xr -) 500 mg PO DAILY@0700 [facility] Last Admin: 10/10/19 06:29 Dose: 500 mg Documented by: Nystatin (Mycostatin Cream -) 1 applic TP BID [facility] Last Admin: 10/09/19 21:37 Dose: 1 applic Documented by: Sacubitril/Valsartan (Entresto 24 Mg-26 Mg Tablet) 1 tab PO BID [facility] Last Admin: 10/09/19 21:38 Dose: 1 tab Documented by: Tramadol HCl (Ultram -) 50 mg PO Q6H PRN PRN Reason: PAIN LEVEL 4 - 6 Last Admin: 10/06/19 01:07 Dose: 50 mg Documented by: Warfarin Sodium (Coumadin -) 5 mg PO DAILY@1800 [facility] Last Admin: 10/09/19 17:17 Dose: 5 mg Documented by: - Objective Vital Signs: Vital Signs Temperature 97.9 F 10/10/19 06:00 Pulse Rate 66 10/10/19 06:00 Respiratory Rate 18 10/10/19 06:00 Blood Pressure 142/53 L 10/10/19 06:00 O2 Sat by Pulse Oximetry (%) 97 10/10/19 06:00 Constitutional: Yes: Calm, Obese Eyes: Yes: WNL HENT: Yes: WNL Neck: Yes: WNL Cardiovascular: Yes: S1, S2, S4 Respiratory: Yes: WNL Gastrointestinal: Yes: Soft, Abdomen, Obese ...Rectal Exam: Yes: Deferred Genitourinary: No: Anuria Breast(s): Yes: WNL Musculoskeletal: Yes: Joint Stiffness, Muscle Weakness Wound/Incision: Yes: Other (LE wound) Neurological: Yes: Alert, Oriented, Weakness Psychiatric: Yes: Alert, Oriented Labs: CBC, BMP 10/09/19 06:50 10/09/19 06:50 INR, PTT INR 1.46 (0.83-1.09) H 10/09/19 06:50 - ....Imaging Chest X-ray: Image Reviewed EKG: Image Reviewed Assessment/Plan 1. Orthostatic near syncope resolved 2. Nonischemic cardiomyopathy LVEF 30-35% 3. Severe MR 4. History of CVA with left MCA thrombus and subtherapeutic INR 5. 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 COPD with Chronic Hypoxic Respiratory Failure and long smoking history 7. HTN 8. Hypercholesterolemia 9. Macrocytic anemia r/o MDS 10. Type 2 DM 11. Renal artery stenosis 12. Acute on CKD improved 13. Mild 14. Breast cancer PLAN: 1. Holding furosemide pending renal fxn recovery, await bone marrow sent for flow/fish/cytogenetics/myeloid molecular profile 2. Continue Carvedilol 25 mg mg BID, Lipitor 10 mg QHS, Entresto 24/26 bid. 3. Stop epleronone (K now 5.2); reassess, possibly restarting at 12.5 mg daily. 3. Heparin gtt until coumadin--> INR 2.0-3.[address]-guided bone marrow biopsy; monitor Hgb, INR (1.46 presently) 4. O2 to keep SpO2 >90% and inhaled bronchodilators as needed 5. Transfuse to maintain Hgb>8.0 6. Encourage ambulation /PT 7. Consider f/u ECHO (possibly as outpatient) to better assess valve status, particularly aortic valve, in light of poor LVEF. 8. Eventual f/u with Dr. Mahoney upon d/c ,
[2019-10-10 08:31] LABS: HEMATOCRIT 26.3 % (32.4-45.2); HEMOGLOBIN 8.6 GM/dL (10.7-15.3); MCH 31.6 pg (25.7-33.7); MCHC 32.6 g/dl (32.0-36.0); MEAN PLT VOLUME 8.6 fl (7.5-11.1); PLATELET COUNT 210 K/MM3 (134-434); RBC 2.72 M/mm3 (3.60-5.2); RDW 16.5 % (11.6-15.6); WHITE BLOOD COUNT 6.4 K/mm3 (4.0-10.0)
[2019-10-10 08:35] LABS: INR 1.54 (0.83-1.09); PROTHROMBIN TIME (PATIENT) 18.3 SEC (9.7-13.0)
[2019-10-10 09:16] LABS: BLOOD UREA NITROGEN 43.4 mg/dL (7-18); CALCIUM 8.7 mg/dL (8.5-10.1); CREATININE 1.5 mg/dL (0.55-1.3); POTASSIUM 4.9 mmol/L (3.5-5.1)
[2019-10-10] MEDS: CARVEDILOL 25 MG TABLET (FP) PO SCH ×2 (09:53→22:22)
[2019-10-10] MEDS: ANASTROZOLE 1 MG TABLET PO SCH (09:53)
[2019-10-10] MEDS: ENOXAPARIN NA (PORCINE) 80 MG/0.8 ML DISP.SYRIN SQ SCH ×2 (09:53→22:22)
[2019-10-10] MEDS: NYSTATIN 100,000 UNIT/GM TOPICAL CREAM 15 GM TUBE TP SCH ×2 (09:54→22:24)
[2019-10-10] MEDS: SACUBITRIL/VALSARTAN 24 MG-26 MG TABLET PO SCH (12:09)
--- NOTE | 2019-10-10 12:18 | PN ---
Progress Note, Physician History of Present Illness: Orthostatic near syncope and weakness resolved, tolerated PT, denies dyspnea, s/p bone marrow biopsy, awaiting therapeutic INR. - Current Medication List Current Medications: Active Medications Acetaminophen (Tylenol -) 650 mg PO Q6H PRN PRN Reason: PAIN LEVEL 3-10 Last Admin: 10/01/19 02:43 Dose: 650 mg Documented by: Anastrozole (Arimidex -) 1 mg PO DAILY [facility] Last Admin: 10/10/19 09:53 Dose: 1 mg Documented by: Atorvastatin Calcium (Lipitor -) 10 mg PO HS [facility] Last Admin: 10/09/19 21:37 Dose: 10 mg Documented by: Bupropion HCl (Wellbutrin -) 75 mg PO Q12H [facility] Last Admin: 10/10/19 06:29 Dose: 75 mg Documented by: Carvedilol (Coreg -) 25 mg PO BID [facility] Last Admin: 10/10/19 09:53 Dose: 25 mg Documented by: Enoxaparin Sodium (Lovenox -) 80 mg SQ BID [facility] Last Admin: 10/10/19 09:53 Dose: 80 mg Documented by: Insulin Aspart (Novolog Vial Sliding Scale -) [facility]; Protocol Last Admin: 10/10/19 06:08 Dose: Not Given Documented by: Melatonin (Melatonin) 5 mg PO HS PRN PRN Reason: INSOMNIA Last Admin: 10/09/19 21:37 Dose: 5 mg Documented by: Metformin HCl (Glucophage Xr -) 500 mg PO DAILY@0700 [facility] Last Admin: 10/10/19 06:29 Dose: 500 mg Documented by: Nystatin (Mycostatin Cream -) 1 applic TP BID [facility] Last Admin: 10/10/19 09:54 Dose: 1 applic Documented by: Sacubitril/Valsartan (Entresto 24 Mg-26 Mg Tablet) 1 tab PO BID [facility] Last Admin: 10/10/19 12:09 Dose: 1 tab Documented by: Tramadol HCl (Ultram -) 50 mg PO Q6H PRN PRN Reason: PAIN LEVEL 4 - 6 Last Admin: 10/06/19 01:07 Dose: 50 mg Documented by: Warfarin Sodium (Coumadin -) 5 mg PO DAILY@1800 [facility] Last Admin: 10/09/19 17:17 Dose: 5 mg Documented by: - Objective Vital Signs: Vital Signs Temperature 97.9 F 10/10/19 06:00 Pulse Rate 61 10/10/19 10:06 Respiratory Rate 20 10/10/19 10:06 Blood Pressure 151/48 L 10/10/19 10:06 O2 Sat by Pulse Oximetry (%) 100 10/10/19 10:06 Constitutional: Yes: No Distress, Calm Neck: Yes: Supple Cardiovascular: Yes: Regular Rate and Rhythm Respiratory: Yes: Regular, CTA Bilaterally Gastrointestinal: Yes: Normal Bowel Sounds, Soft Edema: No Labs: CBC, BMP 10/10/19 07:15 10/10/19 07:15 INR, PTT INR 1.54 (0.83-1.09) H 10/10/19 07:15 Problem List - Problems (1) Hypotension Code(s): I95.9 - HYPOTENSION, UNSPECIFIED Qualifiers: Hypotension type: hypotension due to hypovolemia Qualified Code(s): I95.89 - Other hypotension; E86.1 - Hypovolemia (2) Acute on chronic systolic congestive heart failure Code(s): I50.23 - ACUTE ON CHRONIC SYSTOLIC (CONGESTIVE) HEART FAILURE (3) Anticoagulant long-term use Code(s): Z79.01 - CASE SPECIALIST (CURRENT) USE OF 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 (4) COPD without exacerbation Code(s): J44.9 - CHRONIC OBSTRUCTIVE PULMONARY DISEASE, UNSPECIFIED (5) Cancer of left breast Code(s): C50.912 - MALIGNANT NEOPLASM OF UNSPECIFIED SITE OF LEFT FEMALE BREAST Qualifiers: Breast location: upper outer quadrant of breast Estrogen receptor status: positive Patient sex: female Qualified Code(s): C50.412 - Malignant neoplasm of upper-outer quadrant of left female breast (6) Diabetes mellitus type 2, noninsulin dependent Code(s): E11.9 - TYPE 2 DIABETES MELLITUS WITHOUT COMPLICATIONS (8) Hypercholesterolemia Code(s): E78.00 - PURE HYPERCHOLESTEROLEMIA, UNSPECIFIED (9) Hypertensive heart and renal disease Qualifiers: Heart failure presence: without heart failure Hypertensive chronic kidney disease stage: stage 1-4 or unspecified chronic kidney disease Qualified Code(s): I13.10 - Hypertensive heart and chronic kidney disease without heart failure, with stage 1 through stage 4 chronic kidney disease, or unspecified chronic kidney disease (10) Visual impairment Code(s): H54.7 - UNSPECIFIED VISUAL LOSS Assessment/Plan Echocardiogram: 07/22/2019 Severely decreased LVEF 30-35%, severe MR, mild-mod TR RVSP 30-40 mmHg, mild Mg 11 mmHg Echocardiography (12/27/18): Normal LV systolic function, LVEF 55-60%, mild , mild MR. Nuclear MPI (12/28/18): Normal perfusion with LVEF 60%. Carotid Doppler(05/04/18): Mild right atherosclerotic plaque and moderate left atherosclerotic plaque in the common carotid extending into internal carotid artery. 12/24/2016 Echo: Normal LV size with moderate decreased LV fxn, mild pericardial effusion, mild ASHLEY, mod MR, mild PA, TR 01/28/2018 Echo: Normal LV size with severely decreased LV fxn EF 30-35%, normal RV size and fxn, mod LAE, mod MR 1. Orthostatic near syncope resolved 2. Nonischemic cardiomyopathy LVEF 30-35% 3. Severe MR 4. History of CVA with left MCA thrombus and subtherapeutic INR 5. 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 COPD with Chronic Hypoxic Respiratory Failure and long smoking history 7. HTN 8. Hypercholesterolemia 9. Macrocytic anemia r/o MDS 10. Type 2 DM 11. Renal artery stenosis 12. Acute on CKD improved, hyperkalemia with eplerenone 13. Mild 14. Breast cancer PLAN: 1. Resume furosemide 20 qd given renal fxn recovery, await bone marrow sent for flow/fish/cytogenetics/myeloid molecular profile/ 2. Continue Carvedilol 25 mg mg BID, Lipitor 10 mg QHS, increase Entresto 49/51 bid and rechallenge eplerenone 25 qd once renal fxn stabilized and hyperkalemia resolved 3. Lovenox->coumadin per INR 2.0-3.[address]-guided bone marrow biopsy, monitor Hgb 4. O2 to keep SpO2 >90% and inhaled bronchodilators as needed 5. Transfuse to maintain Hgb>8.0 6. Encourage ambulation /PT 7. Eventual f/u with Dr. Mahoney upon d/c ,
--- NOTE | 2019-10-10 14:58 | PN ---
Progress Note (short form) - Note Progress Note: Active Medications Acetaminophen (Tylenol -) 650 mg PO Q6H PRN PRN Reason: PAIN LEVEL 3-10 Last Admin: 10/01/19 02:43 Dose: 650 mg Documented by: Anastrozole (Arimidex -) 1 mg PO DAILY [facility] Last Admin: 10/10/19 09:53 Dose: 1 mg Documented by: Atorvastatin Calcium (Lipitor -) 10 mg PO HS [facility] Last Admin: 10/09/19 21:37 Dose: 10 mg Documented by: Bupropion HCl (Wellbutrin -) 75 mg PO Q12H [facility] Last Admin: 10/10/19 06:29 Dose: 75 mg Documented by: Carvedilol (Coreg -) 25 mg PO BID [facility] Last Admin: 10/10/19 09:53 Dose: 25 mg Documented by: Enoxaparin Sodium (Lovenox -) 80 mg SQ BID [facility] Last Admin: 10/10/19 09:53 Dose: 80 mg Documented by: Furosemide (Lasix -) 20 mg PO DAILY [facility] Insulin Aspart (Novolog Vial Sliding Scale -) [facility] Protocol Last Admin: 10/10/19 06:08 Dose: Not Given Documented by: Melatonin (Melatonin) 5 mg PO HS PRN PRN Reason: INSOMNIA Last Admin: 10/09/19 21:37 Dose: 5 mg Documented by: Metformin HCl (Glucophage Xr -) 500 mg PO DAILY@0700 [facility] Last Admin: 10/10/19 06:29 Dose: 500 mg Documented by: Nystatin (Mycostatin Cream -) 1 applic TP BID [facility] Last Admin: 10/10/19 09:54 Dose: 1 applic Documented by: Sacubitril/Valsartan (Entresto 49 Mg-51 Mg Tablet) 1 tab PO BID [facility] Tramadol HCl (Ultram -) 50 mg PO Q6H PRN PRN Reason: PAIN LEVEL 4 - 6 Last Admin: 10/06/19 01:07 Dose: 50 mg Documented by: Warfarin Sodium (Coumadin -) 5 mg PO DAILY@1800 [facility] Last Admin: 10/09/19 17:17 Dose: 5 mg Documented by: Laboratory Results - last 24 hr 10/09/19 10/09/19 10/10/19 16:45 21:22 06:04 WBC RBC Hgb Hct MCV MCH MCHC RDW Plt Count MPV PT with INR INR Sodium Potassium Chloride Carbon Dioxide Anion Gap BUN Creatinine Est GFR (CKD-EPI)AfAm Est GFR (CKD-EPI)NonAf POC Glucometer 119 126 85 Random Glucose Calcium 10/10/19 10/10/19 10/10/19 07:15 07:15 07:15 WBC 6.4 RBC 2.72 L Hgb 8.6 L Hct 26.3 L MCV 97.0 H MCH 31.6 MCHC 32.6 RDW 16.5 H Plt Count 210 MPV 8.6 PT with INR 18.30 H INR 1.54 H Sodium 141 Potassium 4.9 Chloride 112 H Carbon Dioxide 23 Anion Gap 6 L BUN 43.4 H Creatinine 1.5 H Est GFR (CKD-EPI)AfAm 40.49 Est GFR (CKD-EPI)NonAf 34.93 POC Glucometer Random Glucose 88 Calcium 8.7 Vital Signs Temperature 97.9 F 10/10/19 06:00 Pulse Rate 91 H 10/10/19 14:34 Respiratory Rate 10/10/19 10:06 Blood Pressure 151/48 L 10/10/19 10:06 O2 Sat by Pulse Oximetry (%) 93 L 10/10/19 14:34 CC: issue evacuating stool ```````````````````````````````````` skin--red rash under breasts eyes--asymmetric, anicteric heart--RR lungs--unlabored; distant abd--benign ext--trace edema neuro--alert; coherent; speech is fluent; no gross motor deficits ``````````````````````````````````````````````````````` Summ > Anemia--not new, exact cause as of yet unclear; (occult blood loss vs production problem); hemolysis appears less likely, retic is WNL. She is s/p 1 PC transfusion. Stools for OB repeatedly negative. She is s/p BM Bx and no results yet available. Hgb roughly in mid 8's; will check daily; will transfuse if hgb goes under 8.0 > Renal insuff--Bun/creat is grossly unchanged; is now on low dose Lasix > CHF--chronic, with reduced Ej State; most recent ECHO done here at [facility] a few months ago showing HF with fairly low Ej FX; and was placed on entresto which she will continue to need; CXR did not show any presence of CHF or effusion PLAN: eplerenone stopped due to high K+, now on low dose Lasix with BB and entresto. > DM--most readings are in mid to low 100's > Shoulder pain--improved > Lt Leg wound infection--overlying a biopsied BC skin Ca; on dual Abs; culture taken shows no presence of msSA or Ecoli; Abs stopped > Usp a/c--for stroke prophylaxis; now on SC lovenox, because INR still too low. > Constipation--had BM, but c/o delayed evacuation. Nurse states that she is going soft. > fungal derm--under breasts; receiving antifungal > COPD--subclinical; stable and has not required any inhalers > Hx of Lt breast cancer--on Arimidex ~~~~~~~~~~~~~~ Dr Caputo Problem List - Problems (1) Hypotension Code(s): I95.9 - HYPOTENSION, UNSPECIFIED Qualifiers: Hypotension type: hypotension due to hypovolemia Qualified Code(s): I95.89 - Other hypotension; E86.1 - Hypovolemia (2) Dehydration Code(s): E86.0 - DEHYDRATION (3) Anemia Code(s): D64.9 - ANEMIA, UNSPECIFIED Qualifiers: Anemia type: other cause Other causes of anemia: other cause, not classified Qualified Code(s): D64.89 - Other specified anemias (4) Anticoagulant long-term use Code(s): Z79.01 - ORIENTAL MEDICINE PRACTITIONER (CURRENT) USE OF 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 (5) Breast cancer, left Code(s): C50.912 - MALIGNANT NEOPLASM OF UNSPECIFIED SITE OF LEFT FEMALE BREAST Qualifiers: Breast location: unspecified site of breast Estrogen receptor status: unspecified Patient sex: female Qualified Code(s): C50.912 - Malignant neoplasm of unspecified site of left female breast (6) COPD (chronic obstructive pulmonary disease) Code(s): J44.9 - CHRONIC OBSTRUCTIVE PULMONARY DISEASE, UNSPECIFIED Qualifiers: COPD type: unspecified COPD Qualified Code(s): J44.9 - Chronic obstructive pulmonary disease, unspecified (7) CHF (congestive heart failure) Code(s): I50.9 - HEART FAILURE, UNSPECIFIED Qualifiers: Heart failure type: systolic Heart failure chronicity: chronic Qualified Code(s): I50.22 - Chronic systolic (congestive) heart failure (8) Depression Code(s): F32.9 - MAJOR DEPRESSIVE DISORDER, SINGLE EPISODE, UNSPECIFIED Qualifiers: Depression Type: major depressive disorder Major depression episode severity: unspecified (9) Diabetes mellitus type 2, noninsulin dependent Code(s): E11.9 - TYPE 2 DIABETES MELLITUS WITHOUT COMPLICATIONS (11) Visual impairment Code(s): H54.7 - UNSPECIFIED VISUAL LOSS (12) Infected wound Code(s): T14.8XXA - OTHER INJURY OF UNSPECIFIED BODY REGION, INITIAL ENCOUNTER; L08.9 - LOCAL INFECTION OF THE SKIN AND SUBCUTANEOUS TISSUE, UNSP (13) Skin neoplasm malignant Code(s): C44.90 - UNSPECIFIED MALIGNANT NEOPLASM OF SKIN, UNSPECIFIED (14) Elderly person living alone Code(s): Z60.2 - PROBLEMS RELATED TO LIVING ALONE
[2019-10-10] MEDS: WARFARIN NA 5 MG TABLET PO SCH (17:27)
[2019-10-10] MEDS ORDERED: WARFARIN NA 2 MG TABLET PO ONE (18:00)
[2019-10-10] MEDS: ATORVASTATIN CA 10 MG TABLET (FP) PO SCH (22:21)
[2019-10-10] MEDS: MELATONIN 5 MG TABLETS PO PRN (22:22)
[2019-10-10] MEDS: SACUBITRIL/VALSARTAN 49 MG-51 MG TABLET PO SCH (22:23)
[2019-10-11] MEDS: buPROPion HCL 75 MG TABLET PO SCH ×2 (06:27→17:22)
[2019-10-11] MEDS: INSULIN SLIDING SCALE (NOVOLOG) 1 VIAL SQ SCH ×2 (06:28→17:14)
[2019-10-11 08:14] LABS: HEMATOCRIT 24.6 % (32.4-45.2); MCH 31.9 pg (25.7-33.7); MCHC 32.6 g/dl (32.0-36.0); MEAN CELL VOLUME 97.6 fl (80-96); MEAN PLT VOLUME 8.5 fl (7.5-11.1); PLATELET COUNT 188 K/MM3 (134-434); RBC 2.52 M/mm3 (3.60-5.2); RDW 16.2 % (11.6-15.6); WHITE BLOOD COUNT 5.6 K/mm3 (4.0-10.0)
[2019-10-11 08:26] LABS: INR 1.86 (0.83-1.09); PROTHROMBIN TIME (PATIENT) 22.1 SEC (9.7-13.0)
[2019-10-11 09:29] LABS: BLOOD UREA NITROGEN 41.6 mg/dL (7-18); CALCIUM 8.7 mg/dL (8.5-10.1); CREATININE 1.4 mg/dL (0.55-1.3); POTASSIUM 4.6 mmol/L (3.5-5.1)
[2019-10-11] MEDS ORDERED: PT OWN MED DRAWER 7, Y5N ONE ×2 (09:42→16:56)
[2019-10-11] MEDS: CARVEDILOL 25 MG TABLET (FP) PO SCH ×2 (09:53→21:52)
[2019-10-11] MEDS: ANASTROZOLE 1 MG TABLET PO SCH (09:53)
[2019-10-11] MEDS: ENOXAPARIN NA (PORCINE) 80 MG/0.8 ML DISP.SYRIN SQ SCH ×2 (09:54→21:53)
[2019-10-11] MEDS: FUROSEMIDE 20 MG TABLET (FP) PO SCH (09:55)
[2019-10-11] MEDS: NYSTATIN 100,000 UNIT/GM TOPICAL CREAM 15 GM TUBE TP SCH ×2 (09:55→21:54)
[2019-10-11] MEDS: SACUBITRIL/VALSARTAN 49 MG-51 MG TABLET PO SCH ×2 (09:55→21:53)
--- NOTE | 2019-10-11 11:50 | PN ---
Physical Exam: SUBJECTIVE: Patient seen and examined. Patient reports feeling well and has no complaints. OBJECTIVE: Vital Signs Temperature 97.6 F 10/11/19 06:00 Pulse Rate 61 10/11/19 06:00 Respiratory Rate 18 10/11/19 06:00 Blood Pressure 136/54 L 10/11/19 06:00 O2 Sat by Pulse Oximetry (%) 100 10/11/19 06:00 GENERAL: The patient is awake, alert, and fully oriented, in no acute distress. HEAD: Normal with no signs of trauma. EYES: EYES: R. Eye blindness, cloudy iris ENT:moist mucous membranes. NECK:supple. LUNGS: Breath sounds equal, clear to auscultation bilaterally HEART: Regular rate and rhythm, S1, S2 without murmur ABDOMEN: Soft, nontender, nondistended, normoactive bowel sounds EXTREMITIES: 2+ pulses, warm, well-perfused, no edema. NEUROLOGICAL: Normal speech PSYCH: Normal mood, normal affect. SKIN: Warm, dry, normal turgor Laboratory Results - last 24 hr 10/10/19 10/11/19 10/11/19 17:30 06:26 06:45 WBC 5.6 RBC 2.52 L Hgb 8.0 L Hct 24.6 L MCV 97.6 H MCH 31.9 MCHC 32.6 RDW 16.2 H Plt Count 188 MPV 8.5 PT with INR INR Sodium Potassium Chloride Carbon Dioxide Anion Gap BUN Creatinine Est GFR (CKD-EPI)AfAm Est GFR (CKD-EPI)NonAf POC Glucometer 122 87 Random Glucose Calcium 10/11/19 10/11/19 06:45 06:45 WBC RBC Hgb Hct MCV MCH MCHC RDW Plt Count MPV PT with INR 22.10 H INR 1.86 H Sodium 141 Potassium 4.6 Chloride 109 H Carbon Dioxide 26 Anion Gap 6 L BUN 41.6 H Creatinine 1.4 H Est GFR (CKD-EPI)AfAm 44.01 Est GFR (CKD-EPI)NonAf 37.97 POC Glucometer Random Glucose 94 Calcium 8.7 Active Medications Generic Name Dose Route Start Last Admin Trade Name Freq PRN Reason Stop Dose Admin Acetaminophen 650 mg 09/27/19 23:48 10/01/19 02:43 Tylenol - PO 650 mg Q6H PRN Administration PAIN LEVEL 3-10 Anastrozole 1 mg 09/28/19 10:00 10/11/19 09:53 Arimidex - PO 1 mg DAILY [facility] Administration Atorvastatin Calcium 10 mg 09/28/19 22:00 10/10/19 22:21 Lipitor - PO 10 mg HS [facility] Administration Bupropion HCl 75 mg 09/27/19 18:00 10/11/19 06:27 Wellbutrin - PO 75 mg Q12H [facility] Administration Carvedilol 25 mg 10/02/19 10:00 10/11/19 09:53 Coreg - PO 25 mg BID [facility] Administration Enoxaparin Sodium 80 mg 10/07/19 22:00 10/11/19 09:54 Lovenox - SQ 80 mg BID [facility] Administration Furosemide 20 mg 10/11/19 10:00 10/11/19 09:55 Lasix - PO 20 mg DAILY [facility] Administration Insulin Aspart 1 vial 09/28/19 07:00 10/11/19 06:28 Novolog Vial Sliding Scale - SQ Not Given [facility] Protocol Melatonin 5 mg 09/27/19 23:06 10/10/19 22:22 Melatonin PO 5 mg HS PRN Administration INSOMNIA Metformin HCl 500 mg 09/28/19 07:00 10/11/19 06:27 Glucophage Xr - PO 500 mg DAILY@0700 [facility] Administration Nystatin 1 applic 10/06/19 22:00 10/11/19 09:55 Mycostatin Cream - TP 1 applic BID [facility] Administration Sacubitril/Valsartan 1 tab 10/10/19 22:00 10/11/19 09:55 Entresto 49 Mg-51 Mg Tablet PO 1 tab BID [facility] Administration Tramadol HCl 50 mg 09/29/19 03:27 10/06/19 01:07 Ultram - PO 50 mg Q6H PRN Administration PAIN LEVEL 4 - 6 Warfarin Sodium 5 mg 10/06/19 18:00 10/10/19 17:27 Coumadin - PO 5 mg DAILY@1800 [facility] Administration ASSESSMENT/PLAN: Patient is a 68 y.o. F w/ PMHx. of COPD, DM, HTN, HFrEF (EF:30-35%), Hx. of CVAs, R. Eye Blindness, L.Breast CA(s/p lumpectomy, no chemo or RT), HLD and GERD admitted for weakness. #Macrocytic Anemia -MCV: 96-99 borderline macrocytosis -B12, Folate, LDH wnl -Iron studies show TSAT of 24% -Reticulocytes: 1.49 -->inappropriate response -s/p 1 unit of pRBCs with appropriate correction -likely 2/2 chronic disease and CKD, macrocytosis may be secondary to reticulocytosis -r/o MDS--flow/FISH/cytogenetics/myeloid molecular profile -keep HgB above 8 given cardiac comorbidities -Hx. of kappa light chains but no M-spike -follow up bone marrow Bx results -will require follow up of mediastinal adenopathy with repeat Chest CT after discharge Dispo: We will continue to follow the patient. Thank you for this consultative opportunity. Visit type - Emergency Visit Emergency Visit: Yes ED Registration Date: 10/03/19 Care time: The patient presented to the Emergency Department on the above date and was hospitalized for further evaluation of their emergent condition. - New Patient This patient is new to me today: No - Critical Care Critical Care patient: No - Medication Review Med list reviewed for High Risk Meds patients 65 and older: Yes ATTENDING PHYSICIAN STATEMENT I saw and evaluated the patient. I reviewed the resident's note and discussed the case with the resident. I agree with the resident's findings and plan as documented. SUBJECTIVE: OBJECTIVE: ASSESSMENT AND PLAN:
--- NOTE | 2019-10-11 12:15 | PN ---
Progress Note, Physician Chief Complaint: Events noted Not in distress today History of Present Illness: Patient was seen and examined. Awake and alert. Chart was reviewed Denies chest pain, SOB or palpitations - Current Medication List Current Medications: Active Medications Acetaminophen (Tylenol -) 650 mg PO Q6H PRN PRN Reason: PAIN LEVEL 3-10 Last Admin: 10/01/19 02:43 Dose: 650 mg Documented by: Anastrozole (Arimidex -) 1 mg PO DAILY [facility] Last Admin: 10/11/19 09:53 Dose: 1 mg Documented by: Atorvastatin Calcium (Lipitor -) 10 mg PO HS [facility] Last Admin: 10/10/19 22:21 Dose: 10 mg Documented by: Bupropion HCl (Wellbutrin -) 75 mg PO Q12H [facility] Last Admin: 10/11/19 06:27 Dose: 75 mg Documented by: Carvedilol (Coreg -) 25 mg PO BID [facility] Last Admin: 10/11/19 09:53 Dose: 25 mg Documented by: Enoxaparin Sodium (Lovenox -) 80 mg SQ BID [facility] Last Admin: 10/11/19 09:54 Dose: 80 mg Documented by: Furosemide (Lasix -) 20 mg PO DAILY [facility] Last Admin: 10/11/19 09:55 Dose: 20 mg Documented by: Insulin Aspart (Novolog Vial Sliding Scale -) [facility]; Protocol Last Admin: 10/11/19 06:28 Dose: Not Given Documented by: Melatonin (Melatonin) 5 mg PO HS PRN PRN Reason: INSOMNIA Last Admin: 10/10/19 22:22 Dose: 5 mg Documented by: Metformin HCl (Glucophage Xr -) 500 mg PO DAILY@0700 [facility] Last Admin: 10/11/19 06:27 Dose: 500 mg Documented by: Nystatin (Mycostatin Cream -) 1 applic TP BID [facility] Last Admin: 10/11/19 09:55 Dose: 1 applic Documented by: Sacubitril/Valsartan (Entresto 49 Mg-51 Mg Tablet) 1 tab PO BID [facility] Last Admin: 10/11/19 09:55 Dose: 1 tab Documented by: Tramadol HCl (Ultram -) 50 mg PO Q6H PRN PRN Reason: PAIN LEVEL 4 - 6 Last Admin: 10/06/19 01:07 Dose: 50 mg Documented by: Warfarin Sodium (Coumadin -) 5 mg PO DAILY@1800 [facility] Last Admin: 10/10/19 17:27 Dose: 5 mg Documented by: - Objective Vital Signs: Vital Signs Temperature 98.2 F 10/11/19 10:00 Pulse Rate 61 10/11/19 10:00 Respiratory Rate 18 10/11/19 10:00 Blood Pressure 141/51 L 10/11/19 10:00 O2 Sat by Pulse Oximetry (%) 100 10/11/19 10:00 HENT: Yes: Atraumatic Neck: Yes: Supple Cardiovascular: Yes: Regular Rate and Rhythm, S1, S2 Respiratory: Yes: CTA Bilaterally Gastrointestinal: Yes: Normal Bowel Sounds, Soft. No: Tenderness Edema: No Labs: CBC, BMP 10/11/19 06:45 10/11/19 06:45 INR, PTT INR 1.86 (0.83-1.09) H 10/11/19 06:45 Problem List - Problems (1) Pre-syncope Code(s): R55 - SYNCOPE AND COLLAPSE (2) ATN (acute tubular necrosis) Code(s): N17.0 - ACUTE KIDNEY FAILURE WITH TUBULAR NECROSIS (3) Acute on chronic systolic congestive heart failure Code(s): I50.23 - ACUTE ON CHRONIC SYSTOLIC (CONGESTIVE) HEART FAILURE (4) Acute respiratory failure with hypoxia and hypercapnia Code(s): J96.01 - ACUTE RESPIRATORY FAILURE WITH HYPOXIA; J96.02 - ACUTE RESPIRATORY FAILURE WITH HYPERCAPNIA (5) Anemia Code(s): D64.9 - ANEMIA, UNSPECIFIED Qualifiers: Anemia type: other cause Other causes of anemia: other cause, not classified Qualified Code(s): D64.89 - Other specified anemias (6) Breast cancer Code(s): C50.919 - MALIGNANT NEOPLASM OF UNSP SITE OF UNSPECIFIED FEMALE BREAST Qualifiers: Estrogen receptor status: positive Laterality: left (7) COPD (chronic obstructive pulmonary disease) Code(s): J44.9 - CHRONIC OBSTRUCTIVE PULMONARY DISEASE, UNSPECIFIED Qualifiers: COPD type: unspecified COPD Qualified Code(s): J44.9 - Chronic obstructive pulmonary disease, unspecified (8) Diabetes mellitus type 2, noninsulin dependent Code(s): E11.9 - TYPE 2 DIABETES MELLITUS WITHOUT COMPLICATIONS (9) Generalized weakness Code(s): R53.1 - WEAKNESS (10) H/O: CVA (cerebrovascular accident) Code(s): Z86.73 - PRSNL HX OF TIA (TIA), AND CEREB INFRC W/O RESID DEFICITS (11) Hypercholesterolemia Code(s): E78.00 - PURE HYPERCHOLESTEROLEMIA, UNSPECIFIED (12) Hyperkalemia Code(s): E87.5 - HYPERKALEMIA (13) Hypertension Code(s): I10 - ESSENTIAL (PRIMARY) HYPERTENSION Qualifiers: Hypertension type: essential hypertension Qualified Code(s): I10 - Essential (primary) hypertension (14) Left renal artery stenosis Code(s): I70.1 - ATHEROSCLEROSIS OF RENAL ARTERY (15) Postoperative fistula Code(s): T81.83XA - PERSISTENT POSTPROCEDURAL FISTULA, INITIAL ENCOUNTER Qualifiers: Encounter type: initial encounter Qualified Code(s): T81.83XA - Persistent postprocedural fistula, initial encounter Assessment/Plan 1. Orthostatic near syncope 2. Nonischemic cardiomyopathy LVEF 30-35% 3. Severe MR 4. History of CVA with left MCA thrombus and subtherapeutic INR 5. 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 COPD with Chronic Hypoxic Respiratory Failure and long smoking history 7. HTN 8. Hypercholesterolemia 9. Macrocytic anemia r/o MDS 10. Type 2 DM 11. Renal artery stenosis 12. Acute on CKD 13. Mild 14. Breast cancer PLAN: 1. Continue Furosemide 20 mg QD and monitor renal function and electrolytes 2. Continue Carvedilol 25 mg BID, Lipitor 10 mg QHS, continue Entresto 49/51 mg BID and re-challenge Eplerenone 25 mg QD once renal function stabilizes and hyperkalemia resolves 3. Coumadin per INR 2.0-3.[address]-guided bone marrow biopsy, monitor Hgb 4. O2 to keep SpO2 >90% and inhaled bronchodilators as needed 5. Transfuse to maintain Hgb>8.0 6. Encourage ambulation /PT 7. Eventual f/u with Dr. Mahoney ([facility]) upon d/c , Patient already has appointment end of the month Chandu Mahoney MD
--- NOTE | 2019-10-11 15:23 | PN ---
Progress Note (short form) - Note Progress Note: Active Medications Acetaminophen (Tylenol -) 650 mg PO Q6H PRN PRN Reason: PAIN LEVEL 3-10 Last Admin: 10/01/19 02:43 Dose: 650 mg Documented by: Anastrozole (Arimidex -) 1 mg PO DAILY [facility] Last Admin: 10/11/19 09:53 Dose: 1 mg Documented by: Atorvastatin Calcium (Lipitor -) 10 mg PO HS [facility] Last Admin: 10/10/19 22:21 Dose: 10 mg Documented by: Bupropion HCl (Wellbutrin -) 75 mg PO Q12H [facility] Last Admin: 10/11/19 06:27 Dose: 75 mg Documented by: Carvedilol (Coreg -) 25 mg PO BID [facility] Last Admin: 10/11/19 09:53 Dose: 25 mg Documented by: Enoxaparin Sodium (Lovenox -) 80 mg SQ BID [facility] Last Admin: 10/11/19 09:54 Dose: 80 mg Documented by: Furosemide (Lasix -) 20 mg PO DAILY [facility] Last Admin: 10/11/19 09:55 Dose: 20 mg Documented by: Insulin Aspart (Novolog Vial Sliding Scale -) [facility]; Protocol Last Admin: 10/11/19 06:28 Dose: Not Given Documented by: Melatonin (Melatonin) 5 mg PO HS PRN PRN Reason: INSOMNIA Last Admin: 10/10/19 22:22 Dose: 5 mg Documented by: Metformin HCl (Glucophage Xr -) 500 mg PO DAILY@0700 [facility] Last Admin: 10/11/19 06:27 Dose: 500 mg Documented by: Nystatin (Mycostatin Cream -) 1 applic TP BID [facility] Last Admin: 10/11/19 09:55 Dose: 1 applic Documented by: Sacubitril/Valsartan (Entresto 49 Mg-51 Mg Tablet) 1 tab PO BID [facility] Last Admin: 10/11/19 09:55 Dose: 1 tab Documented by: Tramadol HCl (Ultram -) 50 mg PO Q6H PRN PRN Reason: PAIN LEVEL 4 - 6 Last Admin: 10/06/19 01:07 Dose: 50 mg Documented by: Warfarin Sodium (Coumadin -) 5 mg PO DAILY@1800 [facility] Last Admin: 10/10/19 17:27 Dose: 5 mg Documented by: Laboratory Results - last 24 hr 10/10/19 10/11/19 10/11/19 17:30 06:26 06:45 WBC 5.6 RBC 2.52 L Hgb 8.0 L Hct 24.6 L MCV 97.6 H MCH 31.9 MCHC 32.6 RDW 16.2 H Plt Count 188 MPV 8.5 PT with INR INR Sodium Potassium Chloride Carbon Dioxide Anion Gap BUN Creatinine Est GFR (CKD-EPI)AfAm Est GFR (CKD-EPI)NonAf POC Glucometer 122 87 Random Glucose Calcium 10/11/19 10/11/19 06:45 06:45 WBC RBC Hgb Hct MCV MCH MCHC RDW Plt Count MPV PT with INR 22.10 H INR 1.86 H Sodium 141 Potassium 4.6 Chloride 109 H Carbon Dioxide 26 Anion Gap 6 L BUN 41.6 H Creatinine 1.4 H Est GFR (CKD-EPI)AfAm 44.01 Est GFR (CKD-EPI)NonAf 37.97 POC Glucometer Random Glucose 94 Calcium 8.7 Vital Signs Temperature 98.2 F 10/11/19 10:00 Pulse Rate 61 10/11/19 10:00 Respiratory Rate 18 10/11/19 10:00 Blood Pressure 141/51 L 10/11/19 10:00 O2 Sat by Pulse Oximetry (%) 100 10/11/19 10:00 CC: issue evacuating stool ```````````````````````````````````` skin--red rash under breasts eyes--asymmetric, anicteric heart--RR lungs--unlabored; distant abd--benign ext--trace edema neuro--alert; coherent; speech is fluent; no gross motor deficits ``````````````````````````````````````````````````````` Summ > Anemia--not new, exact cause as of yet unclear; hemolysis appears less likely, retic is WNL. She is s/p 1 PC transfusion. Stools for OB repeatedly negative. She is s/p BM Bx and no results yet available. Hgb now down to 8.0; will check daily; will transfuse if hgb goes under 8.0 > Renal insuff--Bun/creat is grossly unchanged; is now on low dose Lasix > CHF--chronic, with reduced Ej State; most recent ECHO done here at [facility], [place] a few months ago showing HF with fairly low Ej FX; and was placed on entresto which she will continue to need; CXR did not show any presence of CHF or effusion PLAN: eplerenone stopped due to high K+, now on low dose Lasix with BB and entresto. > DM--most readings are in mid to low 100's > Lt Leg wound infection--overlying a biopsied BC skin Ca; on dual Abs; culture taken shows no presence of msSA or Ecoli; Abs stopped > Fdc a/c--for stroke prophylaxis; now on SC lovenox, because INR still too low. > Constipation--had BM, but c/o delayed evacuation. Nurse states that she is going soft. > fungal derm--under breasts; receiving antifungal > COPD--subclinical; stable and has not required any inhalers > Hx of Lt breast cancer--on Arimidex ~~~~~~~~~~~~~~ Dr Caputo Problem List - Problems (1) Hypotension Code(s): I95.9 - HYPOTENSION, UNSPECIFIED Qualifiers: Hypotension type: hypotension due to hypovolemia Qualified Code(s): I95.89 - Other hypotension; E86.1 - Hypovolemia (2) Dehydration Code(s): E86.0 - DEHYDRATION (3) Anemia Code(s): D64.9 - ANEMIA, UNSPECIFIED Qualifiers: Anemia type: other cause Other causes of anemia: other cause, not classified Qualified Code(s): D64.89 - Other specified anemias (4) Anticoagulant long-term use Code(s): Z79.01 - RETIREMENT (CURRENT) USE OF 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 (5) Breast cancer, left Code(s): C50.912 - MALIGNANT NEOPLASM OF UNSPECIFIED SITE OF LEFT FEMALE BREAST Qualifiers: Breast location: unspecified site of breast Estrogen receptor status: unspecified Patient sex: female Qualified Code(s): C50.912 - Malignant neoplasm of unspecified site of left female breast (6) COPD (chronic obstructive pulmonary disease) Code(s): J44.9 - CHRONIC OBSTRUCTIVE PULMONARY DISEASE, UNSPECIFIED Qualifiers: COPD type: unspecified COPD Qualified Code(s): J44.9 - Chronic obstructive pulmonary disease, unspecified (7) CHF (congestive heart failure) Code(s): I50.9 - HEART FAILURE, UNSPECIFIED Qualifiers: Heart failure type: systolic Heart failure chronicity: chronic Qualified Code(s): I50.22 - Chronic systolic (congestive) heart failure (8) Depression Code(s): F32.9 - MAJOR DEPRESSIVE DISORDER, SINGLE EPISODE, UNSPECIFIED Qualifiers: Depression Type: major depressive disorder Major depression episode severity: unspecified (9) Diabetes mellitus type 2, noninsulin dependent Code(s): E11.9 - TYPE 2 DIABETES MELLITUS WITHOUT COMPLICATIONS (11) Visual impairment Code(s): H54.7 - UNSPECIFIED VISUAL LOSS (12) Infected wound Code(s): T14.8XXA - OTHER INJURY OF UNSPECIFIED BODY REGION, INITIAL ENCOUNTER; L08.9 - LOCAL INFECTION OF THE SKIN AND SUBCUTANEOUS TISSUE, UNSP (13) Skin neoplasm malignant Code(s): C44.90 - UNSPECIFIED MALIGNANT NEOPLASM OF SKIN, UNSPECIFIED (14) Elderly person living alone Code(s): Z60.2 - PROBLEMS RELATED TO LIVING ALONE
[2019-10-11] MEDS: WARFARIN NA 5 MG TABLET PO SCH (17:22)
[2019-10-11] MEDS: ATORVASTATIN CA 10 MG TABLET (FP) PO SCH (21:51)
[2019-10-11] MEDS: MELATONIN 5 MG TABLETS PO PRN (21:52)
[2019-10-11] MEDS: traMADol HCL 50 MG TABLET PO PRN (23:54)
[2019-10-12] MEDS: INSULIN SLIDING SCALE (NOVOLOG) 1 VIAL SQ SCH ×2 (06:18→17:06)
[2019-10-12] MEDS: buPROPion HCL 75 MG TABLET PO SCH ×2 (06:19→17:07)
[2019-10-12 08:26] LABS: HEMATOCRIT 24.9 % (32.4-45.2); HEMOGLOBIN 8.1 GM/dL (10.7-15.3); MCH 31.3 pg (25.7-33.7); MCHC 32.4 g/dl (32.0-36.0); MEAN CELL VOLUME 96.5 fl (80-96); MEAN PLT VOLUME 8.7 fl (7.5-11.1); PLATELET COUNT 197 K/MM3 (134-434); RBC 2.59 M/mm3 (3.60-5.2); RDW 16.1 % (11.6-15.6); WHITE BLOOD COUNT 6.2 K/mm3 (4.0-10.0)
[2019-10-12 08:35] LABS: INR 1.97 (0.83-1.09); PROTHROMBIN TIME (PATIENT) 23.4 SEC (9.7-13.0)
--- NOTE | 2019-10-12 10:07 | PN ---
Progress Note, Physician History of Present Illness: Orthostatic near syncope and weakness resolved, tolerated PT, denies dyspnea, s/p bone marrow biopsy, awaiting therapeutic INR. - Current Medication List Current Medications: Active Medications Acetaminophen (Tylenol -) 650 mg PO Q6H PRN PRN Reason: PAIN LEVEL 3-10 Last Admin: 10/01/19 02:43 Dose: 650 mg Documented by: Anastrozole (Arimidex -) 1 mg PO DAILY [facility] Last Admin: 10/11/19 09:53 Dose: 1 mg Documented by: Atorvastatin Calcium (Lipitor -) 10 mg PO HS [facility] Last Admin: 10/11/19 21:51 Dose: 10 mg Documented by: Bupropion HCl (Wellbutrin -) 75 mg PO Q12H [facility] Last Admin: 10/12/19 06:19 Dose: 75 mg Documented by: Carvedilol (Coreg -) 25 mg PO BID [facility] Last Admin: 10/11/19 21:52 Dose: 25 mg Documented by: Enoxaparin Sodium (Lovenox -) 80 mg SQ BID [facility] Last Admin: 10/11/19 21:53 Dose: 80 mg Documented by: Furosemide (Lasix -) 20 mg PO DAILY [facility] Last Admin: 10/11/19 09:55 Dose: 20 mg Documented by: Insulin Aspart (Novolog Vial Sliding Scale -) [facility]; Protocol Last Admin: 10/12/19 06:18 Dose: Not Given Documented by: Melatonin (Melatonin) 5 mg PO HS PRN PRN Reason: INSOMNIA Last Admin: 10/11/19 21:52 Dose: 5 mg Documented by: Metformin HCl (Glucophage Xr -) 500 mg PO DAILY@0700 [facility] Last Admin: 10/12/19 06:19 Dose: 500 mg Documented by: Nystatin (Mycostatin Cream -) 1 applic TP BID [facility] Last Admin: 10/11/19 21:54 Dose: 1 applic Documented by: Sacubitril/Valsartan (Entresto 49 Mg-51 Mg Tablet) 1 tab PO BID [facility] Last Admin: 10/11/19 21:53 Dose: 1 tab Documented by: Tramadol HCl (Ultram -) 50 mg PO Q6H PRN PRN Reason: PAIN LEVEL 4 - 6 Last Admin: 10/11/19 23:54 Dose: 50 mg Documented by: Warfarin Sodium (Coumadin -) 5 mg PO DAILY@1800 [facility] Last Admin: 10/11/19 17:22 Dose: 5 mg Documented by: - Objective Vital Signs: Vital Signs Temperature 97.9 F 10/12/19 05:00 Pulse Rate 61 10/12/19 05:00 Respiratory Rate 18 10/12/19 05:00 Blood Pressure 147/73 10/12/19 05:00 O2 Sat by Pulse Oximetry (%) 100 10/12/19 05:00 Constitutional: Yes: No Distress, Calm Neck: Yes: Supple Cardiovascular: Yes: Regular Rate and Rhythm, Murmur (2/6 SM) Respiratory: Yes: Regular, CTA Bilaterally Gastrointestinal: Yes: Normal Bowel Sounds, Soft, Abdomen, Obese Edema: No Labs: CBC, BMP 10/12/19 06:35 10/11/19 06:45 INR, PTT INR 1.97 (0.83-1.09) H 10/12/19 06:35 Problem List - Problems (1) Hypotension Code(s): I95.9 - HYPOTENSION, UNSPECIFIED Qualifiers: Hypotension type: hypotension due to hypovolemia Qualified Code(s): I95.89 - Other hypotension; E86.1 - Hypovolemia (2) Acute on chronic systolic congestive heart failure Code(s): I50.23 - ACUTE ON CHRONIC SYSTOLIC (CONGESTIVE) HEART FAILURE (3) Anticoagulant long-term use Code(s): Z79.01 - LONGTERM (CURRENT) USE OF 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 (4) COPD without exacerbation Code(s): J44.9 - CHRONIC OBSTRUCTIVE PULMONARY DISEASE, UNSPECIFIED (5) Cancer of left breast Code(s): C50.912 - MALIGNANT NEOPLASM OF UNSPECIFIED SITE OF LEFT FEMALE BREAST Qualifiers: Breast location: upper outer quadrant of breast Estrogen receptor status: positive Patient sex: female Qualified Code(s): C50.412 - Malignant neoplasm of upper-outer quadrant of left female breast (6) Diabetes mellitus type 2, noninsulin dependent Code(s): E11.9 - TYPE 2 DIABETES MELLITUS WITHOUT COMPLICATIONS (8) Hypercholesterolemia Code(s): E78.00 - PURE HYPERCHOLESTEROLEMIA, UNSPECIFIED (9) Hypertensive heart and renal disease Qualifiers: Heart failure presence: without heart failure Hypertensive chronic kidney disease stage: stage 1-4 or unspecified chronic kidney disease Qualified Code(s): I13.10 - Hypertensive heart and chronic kidney disease without heart failure, with stage 1 through stage 4 chronic kidney disease, or unspecified chronic kidney disease (10) Visual impairment Code(s): H54.7 - UNSPECIFIED VISUAL LOSS Assessment/Plan Echocardiogram: 07/22/2019 Severely decreased LVEF 30-35%, severe MR, mild-mod TR RVSP 30-40 mmHg, mild Mg 11 mmHg Echocardiography (12/27/18): Normal LV systolic function, LVEF 55-60%, mild , mild MR. Nuclear MPI (12/28/18): Normal perfusion with LVEF 60%. Carotid Doppler(05/04/18): Mild right atherosclerotic plaque and moderate left atherosclerotic plaque in the common carotid extending into internal carotid artery. 12/24/2016 Echo: Normal LV size with moderate decreased LV fxn, mild pericardial effusion, mild ASHLEY, mod MR, mild NE, TR 01/28/2018 Echo: Normal LV size with severely decreased LV fxn EF 30-35%, normal RV size and fxn, mod LAE, mod MR 1. Orthostatic near syncope resolved 2. Nonischemic cardiomyopathy LVEF 30-35% 3. Severe MR 4. History of CVA with left MCA thrombus and subtherapeutic INR 5. 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 COPD with Chronic Hypoxic Respiratory Failure and long smoking history 7. HTN 8. Hypercholesterolemia 9. Macrocytic anemia r/o MDS 10. Type 2 DM 11. Renal artery stenosis 12. Acute on CKD improved, hyperkalemia with eplerenone 13. Mild 14. Breast cancer PLAN: 1. Continue furosemide 20 qd given renal fxn recovery, await bone marrow sent for flow/fish/cytogenetics/myeloid molecular profile/ 2. Continue Carvedilol 25 mg mg BID, Lipitor 10 mg QHS, Entresto 49/51 bid and rechallenge eplerenone 25 qd as renal fxn stabilized and hyperkalemia resolved after resumption of Lasix and uptitration of Entresto 3. Lovenox->coumadin per INR 2.0-3.[address]-guided bone marrow biopsy, monitor Hgb 4. O2 to keep SpO2 >90% and inhaled bronchodilators as needed 5. Transfuse to maintain Hgb>8.0 6. Encourage ambulation /PT 7. Eventual f/u with Dr. Mahoney upon d/c , Patient already has appointment end of the month
[2019-10-12] MEDS: CARVEDILOL 25 MG TABLET (FP) PO SCH ×2 (10:08→21:53)
[2019-10-12] MEDS: ANASTROZOLE 1 MG TABLET PO SCH (10:09)
[2019-10-12] MEDS: SACUBITRIL/VALSARTAN 49 MG-51 MG TABLET PO SCH ×2 (10:09→21:55)
[2019-10-12] MEDS: ENOXAPARIN NA (PORCINE) 80 MG/0.8 ML DISP.SYRIN SQ SCH (10:10)
[2019-10-12] MEDS: FUROSEMIDE 20 MG TABLET (FP) PO SCH (10:10)
[2019-10-12] MEDS: NYSTATIN 100,000 UNIT/GM TOPICAL CREAM 15 GM TUBE TP SCH ×2 (10:20→21:55)
[2019-10-12] MEDS ORDERED: PT OWN MED DRAWER 7, Y5N ONE (11:51)
[2019-10-12] MEDS: EPLERENONE 25 MG TABLET PO SCH (11:53)
--- NOTE | 2019-10-12 15:03 | PN ---
Progress Note (short form) - Note Progress Note: Active Medications Acetaminophen (Tylenol -) 650 mg PO Q6H PRN PRN Reason: PAIN LEVEL 3-10 Last Admin: 10/01/19 02:43 Dose: 650 mg Documented by: Anastrozole (Arimidex -) 1 mg PO DAILY [facility] Last Admin: 10/12/19 10:09 Dose: 1 mg Documented by: Atorvastatin Calcium (Lipitor -) 10 mg PO HS [facility] Last Admin: 10/11/19 21:51 Dose: 10 mg Documented by: Bupropion HCl (Wellbutrin -) 75 mg PO Q12H [facility] Last Admin: 10/12/19 06:19 Dose: 75 mg Documented by: Carvedilol (Coreg -) 25 mg PO BID [facility] Last Admin: 10/12/19 10:08 Dose: 25 mg Documented by: Eplerenone (Eplerenone) 25 mg PO DAILY [facility] Last Admin: 10/12/19 11:53 Dose: 25 mg Documented by: Furosemide (Lasix -) 20 mg PO DAILY [facility] Last Admin: 10/12/19 10:10 Dose: 20 mg Documented by: Insulin Aspart (Novolog Vial Sliding Scale -) [facility] Protocol Last Admin: 10/12/19 06:18 Dose: Not Given Documented by: Melatonin (Melatonin) 5 mg PO HS PRN PRN Reason: INSOMNIA Last Admin: 10/11/19 21:52 Dose: 5 mg Documented by: Metformin HCl (Glucophage Xr -) 500 mg PO DAILY@0700 [facility] Last Admin: 10/12/19 06:19 Dose: 500 mg Documented by: Nystatin (Mycostatin Cream -) 1 applic TP BID [facility] Last Admin: 10/12/19 10:20 Dose: 1 applic Documented by: Sacubitril/Valsartan (Entresto 49 Mg-51 Mg Tablet) 1 tab PO BID [facility] Last Admin: 10/12/19 10:09 Dose: 1 tab Documented by: Tramadol HCl (Ultram -) 50 mg PO Q6H PRN PRN Reason: PAIN LEVEL 4 - 6 Last Admin: 10/11/19 23:54 Dose: 50 mg Documented by: Warfarin Sodium (Coumadin -) 5 mg PO DAILY@1800 [facility] Last Admin: 10/11/19 17:22 Dose: 5 mg Documented by: Laboratory Results - last 24 hr 0810/12/19 10/12/19 16:48 06:18 06:35 WBC 6.2 RBC 2.59 L Hgb 8.1 L Hct 24.9 L MCV 96.5 H MCH 31.3 MCHC 32.4 RDW 16.1 H Plt Count 197 MPV 8.7 PT with INR INR POC Glucometer 185 96 10/12/19 10/12/19 06:35 11:57 WBC RBC Hgb Hct MCV MCH MCHC RDW Plt Count MPV PT with INR 23.40 H INR 1.97 H POC Glucometer 292 Vital Signs Temperature 97.9 F 10/12/19 05:00 Pulse Rate 61 10/12/19 05:00 Respiratory Rate 18 10/12/19 05:00 Blood Pressure 147/73 10/12/19 05:00 O2 Sat by Pulse Oximetry (%) 100 10/12/19 05:00 CC: feels "tired" today ```````````````````````````````````` skin--red rash under breasts eyes--asymmetric, anicteric heart--RR lungs--unlabored; distant abd--benign ext--trace edema neuro--alert; coherent; speech is fluent; no gross motor deficits ``````````````````````````````````````````````````````` Summ > fatigue--unclear cause; though she is lucid & coherent; did do walking today > Anemia--not new, exact cause remains unclear; hemolysis appears less likely, retic is WNL. She is s/p 1 PC transfusion. Stools for OB repeatedly negative. She is s/p BM Bx and no results yet available. Hgb at 8.1 will check daily; will transfuse if hgb goes under 8.0 > CHF--chronic w/ renal insuff, and with reduced Ej State; most recent ECHO done here at [facility] a few months ago showing HF with fairly low Ej FX; and was placed on entresto which she will continue to need; CXR did not show any presence of CHF or effusion PLAN: eplerenone stopped due to high K+, now on low dose Lasix with BB and entresto. > DM--most readings are in mid to low 100's > Lt Leg wound infection--overlying a biopsied BC skin Ca; on dual Abs; culture taken shows no presence of msSA or Ecoli; Abs stopped > Snf a/c--for stroke prophylaxis, INR okay. > Constipation--had BM, but c/o delayed evacuation. Nurse states that she is going soft. > fungal derm--under breasts; receiving antifungal > COPD--subclinical; stable and has not required any inhalers > Hx of Lt breast cancer--on Arimidex ~~~~~~~~~~~~~~ Dr Caputo Problem List - Problems (1) Hypotension Code(s): I95.9 - HYPOTENSION, UNSPECIFIED Qualifiers: Hypotension type: hypotension due to hypovolemia Qualified Code(s): I95.89 - Other hypotension; E86.1 - Hypovolemia (2) Dehydration Code(s): E86.0 - DEHYDRATION (3) Anemia Code(s): D64.9 - ANEMIA, UNSPECIFIED Qualifiers: Anemia type: other cause Other causes of anemia: other cause, not classified Qualified Code(s): D64.89 - Other specified anemias (4) Anticoagulant long-term use Code(s): Z79.01 - [facility] (CURRENT) USE OF 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 (5) Breast cancer, left Code(s): C50.912 - MALIGNANT NEOPLASM OF UNSPECIFIED SITE OF LEFT FEMALE BREAST Qualifiers: Breast location: unspecified site of breast Estrogen receptor status: unspecified Patient sex: female Qualified Code(s): C50.912 - Malignant neoplasm of unspecified site of left female breast (6) COPD (chronic obstructive pulmonary disease) Code(s): J44.9 - CHRONIC OBSTRUCTIVE PULMONARY DISEASE, UNSPECIFIED Qualifiers: COPD type: unspecified COPD Qualified Code(s): J44.9 - Chronic obstructive pulmonary disease, unspecified (7) CHF (congestive heart failure) Code(s): I50.9 - HEART FAILURE, UNSPECIFIED Qualifiers: Heart failure type: systolic Heart failure chronicity: chronic Qualified Code(s): I50.22 - Chronic systolic (congestive) heart failure (8) Depression Code(s): F32.9 - MAJOR DEPRESSIVE DISORDER, SINGLE EPISODE, UNSPECIFIED Qualifiers: Depression Type: major depressive disorder Major depression episode severity: unspecified (9) Diabetes mellitus type 2, noninsulin dependent Code(s): E11.9 - TYPE 2 DIABETES MELLITUS WITHOUT COMPLICATIONS (11) Visual impairment Code(s): H54.7 - UNSPECIFIED VISUAL LOSS (12) Infected wound Code(s): T14.8XXA - OTHER INJURY OF UNSPECIFIED BODY REGION, INITIAL ENCOUNTER; L08.9 - LOCAL INFECTION OF THE SKIN AND SUBCUTANEOUS TISSUE, UNSP (13) Skin neoplasm malignant Code(s): C44.90 - UNSPECIFIED MALIGNANT NEOPLASM OF SKIN, UNSPECIFIED (14) Elderly person living alone Code(s): Z60.2 - PROBLEMS RELATED TO LIVING ALONE
[2019-10-12] MEDS: WARFARIN NA 5 MG TABLET PO SCH (17:07)
[2019-10-12] MEDS: ATORVASTATIN CA 10 MG TABLET (FP) PO SCH (21:53)
[2019-10-12] MEDS: MELATONIN 5 MG TABLETS PO PRN (21:54)
[2019-10-13] MEDS: INSULIN SLIDING SCALE (NOVOLOG) 1 VIAL SQ SCH ×2 (06:03→16:50)
[2019-10-13] MEDS: buPROPion HCL 75 MG TABLET PO SCH ×2 (06:04→17:26)
[2019-10-13 08:42] LABS: HEMATOCRIT 26.9 % (32.4-45.2); HEMOGLOBIN 8.8 GM/dL (10.7-15.3); MCH 31.9 pg (25.7-33.7); MCHC 32.9 g/dl (32.0-36.0); MEAN CELL VOLUME 97.2 fl (80-96); MEAN PLT VOLUME 7.9 fl (7.5-11.1); PLATELET COUNT 219 K/MM3 (134-434); RBC 2.76 M/mm3 (3.60-5.2); WHITE BLOOD COUNT 5.9 K/mm3 (4.0-10.0)
[2019-10-13 08:52] LABS: INR 1.84 (0.83-1.09); PROTHROMBIN TIME (PATIENT) 21.9 SEC (9.7-13.0)
[2019-10-13] MEDS ORDERED: PT OWN MED DRAWER 7, Y5N ONE ×4 (09:16→20:51)
[2019-10-13 09:21] LABS: POTASSIUM 4.6 mmol/L (3.5-5.1)
[2019-10-13 09:27] LABS: BLOOD UREA NITROGEN 43.3 mg/dL (7-18); CALCIUM 8.9 mg/dL (8.5-10.1); CREATININE 1.5 mg/dL (0.55-1.3)
[2019-10-13] MEDS: ANASTROZOLE 1 MG TABLET PO SCH (09:43)
[2019-10-13] MEDS: FUROSEMIDE 20 MG TABLET (FP) PO SCH (09:44)
[2019-10-13] MEDS: EPLERENONE 25 MG TABLET PO SCH (09:44)
[2019-10-13] MEDS: CARVEDILOL 25 MG TABLET (FP) PO SCH ×2 (09:44→21:09)
[2019-10-13] MEDS: SACUBITRIL/VALSARTAN 49 MG-51 MG TABLET PO SCH ×2 (09:45→21:09)
[2019-10-13] MEDS: NYSTATIN 100,000 UNIT/GM TOPICAL CREAM 15 GM TUBE TP SCH ×2 (09:45→21:09)
--- NOTE | 2019-10-13 10:32 | PN ---
Progress Note, Physician History of Present Illness: Orthostatic near syncope and weakness resolved, tolerated PT, denies dyspnea, s/p bone marrow biopsy, awaiting therapeutic INR. - Current Medication List Current Medications: Active Medications Acetaminophen (Tylenol -) 650 mg PO Q6H PRN PRN Reason: PAIN LEVEL 3-10 Last Admin: 10/01/19 02:43 Dose: 650 mg Documented by: Anastrozole (Arimidex -) 1 mg PO DAILY [facility] Last Admin: 10/13/19 09:43 Dose: 1 mg Documented by: Atorvastatin Calcium (Lipitor -) 10 mg PO HS [facility] Last Admin: 10/12/19 21:53 Dose: 10 mg Documented by: Bupropion HCl (Wellbutrin -) 75 mg PO Q12H [facility] Last Admin: 10/13/19 06:04 Dose: 75 mg Documented by: Carvedilol (Coreg -) 25 mg PO BID [facility] Last Admin: 10/13/19 09:44 Dose: 25 mg Documented by: Eplerenone (Eplerenone) 25 mg PO DAILY [facility] Last Admin: 10/13/19 09:44 Dose: 25 mg Documented by: Furosemide (Lasix -) 20 mg PO DAILY [facility] Last Admin: 10/13/19 09:44 Dose: 20 mg Documented by: Insulin Aspart (Novolog Vial Sliding Scale -) [facility] Last Admin: 10/13/19 06:03 Dose: Not Given Documented by: Melatonin (Melatonin) 5 mg PO HS PRN PRN Reason: INSOMNIA Last Admin: 10/12/19 21:54 Dose: 5 mg Documented by: Metformin HCl (Glucophage Xr -) 500 mg PO DAILY@0700 [facility] Last Admin: 10/13/19 06:04 Dose: 500 mg Documented by: Nystatin (Mycostatin Cream -) 1 applic TP BID [facility] Last Admin: 10/13/19 09:45 Dose: 1 applic Documented by: Sacubitril/Valsartan (Entresto 49 Mg-51 Mg Tablet) 1 tab PO BID [facility] Last Admin: 10/13/19 09:45 Dose: 1 tab Documented by: Tramadol HCl (Ultram -) 50 mg PO Q6H PRN PRN Reason: PAIN LEVEL 4 - 6 Last Admin: 10/11/19 23:54 Dose: 50 mg Documented by: Warfarin Sodium (Coumadin -) 5 mg PO DAILY@1800 [facility] Last Admin: 10/12/19 17:07 Dose: 5 mg Documented by: - Objective Vital Signs: Vital Signs Temperature 98.1 F 10/13/19 06:00 Pulse Rate 72 10/13/19 06:00 Respiratory Rate 18 10/13/19 06:00 Blood Pressure 146/61 10/13/19 06:00 O2 Sat by Pulse Oximetry (%) 96 10/13/19 06:00 Constitutional: Yes: No Distress, Calm Neck: Yes: Supple Cardiovascular: Yes: Regular Rate and Rhythm, Murmur (2/6 SM) Respiratory: Yes: Regular, CTA Bilaterally Gastrointestinal: Yes: Normal Bowel Sounds, Soft, Abdomen, Obese Edema: No Labs: CBC, BMP 10/13/19 08:15 10/13/19 08:15 INR, PTT INR 1.84 (0.83-1.09) H 10/13/19 08:15 Problem List - Problems (1) Hypotension Code(s): I95.9 - HYPOTENSION, UNSPECIFIED Qualifiers: Hypotension type: hypotension due to hypovolemia Qualified Code(s): I95.89 - Other hypotension; E86.1 - Hypovolemia (2) Acute on chronic systolic congestive heart failure Code(s): I50.23 - ACUTE ON CHRONIC SYSTOLIC (CONGESTIVE) HEART FAILURE (3) Anticoagulant long-term use Code(s): Z79.01 - LONGTERM (CURRENT) USE OF 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 (4) COPD without exacerbation Code(s): J44.9 - CHRONIC OBSTRUCTIVE PULMONARY DISEASE, UNSPECIFIED (5) Cancer of left breast Code(s): C50.912 - MALIGNANT NEOPLASM OF UNSPECIFIED SITE OF LEFT FEMALE BREAST Qualifiers: Breast location: upper outer quadrant of breast Estrogen receptor status: positive Patient sex: female Qualified Code(s): C50.412 - Malignant neoplasm of upper-outer quadrant of left female breast (6) Diabetes mellitus type 2, noninsulin dependent Code(s): E11.9 - TYPE 2 DIABETES MELLITUS WITHOUT COMPLICATIONS (8) Hypercholesterolemia Code(s): E78.00 - PURE HYPERCHOLESTEROLEMIA, UNSPECIFIED (9) Hypertensive heart and renal disease Qualifiers: Heart failure presence: without heart failure Hypertensive chronic kidney disease stage: stage 1-4 or unspecified chronic kidney disease Qualified Code(s): I13.10 - Hypertensive heart and chronic kidney disease without heart failure, with stage 1 through stage 4 chronic kidney disease, or unspecified chronic kidney disease (10) Visual impairment Code(s): H54.7 - UNSPECIFIED VISUAL LOSS Assessment/Plan Echocardiogram: 07/22/2019 Severely decreased LVEF 30-35%, severe MR, mild-mod TR RVSP 30-40 mmHg, mild Mg 11 mmHg Echocardiography (12/27/18): Normal LV systolic function, LVEF 55-60%, mild , mild MR. Nuclear MPI (12/28/18): Normal perfusion with LVEF 60%. Carotid Doppler(05/04/18): Mild right atherosclerotic plaque and moderate left atherosclerotic plaque in the common carotid extending into internal carotid artery. 12/24/2016 Echo: Normal LV size with moderate decreased LV fxn, mild pericardial effusion, mild ASHLEY, mod MR, mild NE, TR 01/28/2018 Echo: Normal LV size with severely decreased LV fxn EF 30-35%, normal RV size and fxn, mod LAE, mod MR 1. Orthostatic near syncope resolved 2. Nonischemic cardiomyopathy LVEF 30-35% 3. Severe MR 4. History of CVA with left MCA thrombus and subtherapeutic INR 5. 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 COPD with Chronic Hypoxic Respiratory Failure and long smoking history 7. HTN 8. Hypercholesterolemia 9. Macrocytic anemia r/o MDS 10. Type 2 DM 11. Renal artery stenosis 12. Acute on CKD improved, hyperkalemia with eplerenone 13. Mild 14. Breast cancer PLAN: 1. Continue furosemide 20 qd given renal fxn recovery, await bone marrow sent for flow/fish/cytogenetics/myeloid molecular profile/ 2. Continue Carvedilol 25 mg mg BID, Lipitor 10 mg QHS, Entresto 49/51 bid and rechallenged eplerenone 25 qd as renal fxn stabilized and hyperkalemia resolved after resumption of Lasix and uptitration of Entresto 3. Coumadin per INR 2.0-3.[address]-guided bone marrow biopsy, monitor Hgb 4. O2 to keep SpO2 >90% and inhaled bronchodilators as needed 5. Transfuse to maintain Hgb>8.0 6. Encourage ambulation /PT 7. Eventual f/u with Dr. Mahoney upon d/c , Patient already has appointment end of the month
[2019-10-13] MEDS ORDERED: WARFARIN NA 2.5 MG TABLET PO ONE (15:07)
--- NOTE | 2019-10-13 15:19 | DS ---
Physical Examination Vital Signs: Vital Signs Temperature 98.5 F 10/13/19 10:00 Pulse Rate 65 10/13/19 10:00 Respiratory Rate 18 10/13/19 10:00 Blood Pressure 144/50 L 10/13/19 10:00 O2 Sat by Pulse Oximetry (%) 95 10/13/19 10:00 Findings/Remarks: skin--some pallor; faint red (fungal) rash under breasts; clean dressing on distal LLE head--NC, alopecia eyes--asymm gaze; opaque Rt cornea (chronic); impaired gaze oral--no droop neck--no masses lungs--BS bilat distant heart--RR abd--obese, soft, BS+, NT, healed surg incision ext--no edema; no gross ischemic changes neuro--alert; verbal; coherent; no gross motor/sensory deficits; no tremor or rigidity appreciated Laboratory Results - last 24 hr 10/12/19 10/12/19 10/13/19 12:15 17:05 06:02 WBC RBC Hgb Hct MCV MCH MCHC RDW Plt Count MPV PT with INR INR Sodium Potassium Chloride Carbon Dioxide Anion Gap BUN Creatinine Est GFR (CKD-EPI)AfAm Est GFR (CKD-EPI)NonAf POC Glucometer 98 93 Random Glucose Calcium COVID-19 ([facility]) Not detected 10/13/19 10/13/19 10/13/19 08:15 08:15 08:15 WBC 5.9 RBC 2.76 L Hgb 8.8 L Hct 26.9 L MCV 97.2 H MCH 31.9 MCHC 32.9 RDW 16.0 H Plt Count 219 MPV 7.9 PT with INR 21.90 H INR 1.84 H Sodium 142 Potassium 4.6 Chloride 106 Carbon Dioxide 26 Anion Gap 10 BUN 43.3 H Creatinine 1.5 H Est GFR (CKD-EPI)AfAm 40.49 Est GFR (CKD-EPI)NonAf 34.93 POC Glucometer Random Glucose 99 Calcium 8.9 COVID-19 ([facility]) Labs: CBC, BMP 10/13/19 08:15 10/13/19 08:15 Discharge Summary Problems reviewed: Yes Reason For Visit: PRE SYNCOPE Current Active Problems Hypotension--resolved dehydration Infected wound (Acute) Pre-syncope (Acute) CHF with impaired Ej Fx renal insuff T2 DM anemia (No GI blood loss)) Blindness Rt eye Impaired vision on Lt eye COPD (stable) breast cancer (Lt breast--stable) Basal cell skin cancer--distal LLE s/p ventral hernia repair in May of 2019--stable Fungal dermatitis under breasts Gait dysfunction s/p ischemic CVA (old) on Half-Way anticoagulation Procedures: Principal: Bone Marrow bx Other Procedures: packed cell transfusion Hospital Course: 68 F who was sent to the ER after a scheduled office visit (for ongoing care of infected Biopsy wound of the LLE); who found to be weak with BP of 80/50. She was sent to the ER, and testing revealed significant dehydration and anemia. She was not septic. She was given IVF, and required PC transfusion for Hgb under 8.0. She was kept on oral antibiotic but cultures of the infected site came back negative and all Abs were stopped. She was afebrile throughout her stay. After hydration, her BP normalized and was gradually put back on her Cardiac meds, but at a reduced dose of diuretics. She was followed by Cardiology as well. She underwent bone Marrow Bx as all her stool studies were negative for OB (even when anticoagulated) but there are no results yet available at the time of this writing. Following the BM biopsy, she remained well, c/o only some weakness. She briefly c/o Lt shoulder pain; Xray showed some spur like mary element but the pain resolved on its own. She c/o difficulty with her BMs but did not display hard stools. She was COVID Negative x 2 Health Concerns: ability to remain independant in her own home Plan of Treatment: Physical Tx for ambulation and stability Goals: Hopeful return to home with VNS or Home care Condition: Stable - Instructions Diet, Activity, Other Instructions: -Diabetic diet; Sodium controlled; high fiber diet Check finger stick glucose daily and as needed PT evaluation CHECK: INR and CBC and Chemistry every 4-5 days Transfer to hospital for transfusion if Hgb below 8.0; or if c/o feeling very weak. Apply clean dressing daily to biopsied lesion of the Lower Left leg Referrals: Lukas Caputo MD [Primary Care Provider] - Disposition: CUSTODIAL FACILITY - Home Medications Comprehensive Discharge Medication List: Ambulatory Orders Atorvastatin Calcium 40 mg PO HS 01/17/17 Bupropion HCl [Wellbutrin -] 75 mg PO BID 01/17/17 Anastrozole [Arimidex -] 1 mg PO DAILY tablet 02/04/18 Acetaminophen [Pain Relief] 650 mg PO Q6H PRN 06/23/19 Melatonin 5 mg PO HS 07/14/19 Sacubitril/Valsartan [Entresto 49 mg-51 mg Tablet] 1 tab PO BID tablet 07/27/19 Warfarin Na [Coumadin -] 5 mg PO DAILY@1800 tablet 07/27/19 metFORMIN XR [Glucophage Xr -] 500 mg PO DAILY@0700 #30 tab.sr.24h 07/27/19 Carvedilol [Coreg -] 25 mg PO BID tablet 10/13/19 Eplerenone 25 mg PO Q2D #10 tablet 10/13/19 Furosemide [Lasix -] 20 mg PO DAILY tablet 10/13/19 Nystatin Cream [Mycostatin Cream -] 1 applic TP DAILY #1 applic 10/13/19 traMADol HCL [Ultram -] 50 mg PO Q6H PRN tablet 10/13/19
[2019-10-13] MEDS ORDERED: WARFARIN NA 5 MG TABLET PO ONE (16:30)
[2019-10-13] MEDS ORDERED: INSULIN (NOVOLOG) ASPART 100 UNITS/ML 10ML VIAL ONE (17:25)
[2019-10-13] MEDS: WARFARIN NA 5 MG TABLET PO SCH (17:26)
[2019-10-13] MEDS: ATORVASTATIN CA 10 MG TABLET (FP) PO SCH (21:09)
[2019-10-13] MEDS: MELATONIN 5 MG TABLETS PO PRN (21:25)
[2019-10-14] MEDS: INSULIN SLIDING SCALE (NOVOLOG) 1 VIAL SQ SCH ×2 (06:09→17:31)
[2019-10-14] MEDS: buPROPion HCL 75 MG TABLET PO SCH ×2 (06:12→17:27)
--- NOTE | 2019-10-14 08:00 | PN ---
Progress Note, Physician History of Present Illness: Orthostatic near syncope and weakness resolved, tolerated PT, denies dyspnea, s/p bone marrow biopsy, awaiting therapeutic INR. - Current Medication List Current Medications: Active Medications Acetaminophen (Tylenol -) 650 mg PO Q6H PRN PRN Reason: PAIN LEVEL 3-10 Last Admin: 10/01/19 02:43 Dose: 650 mg Documented by: Anastrozole (Arimidex -) 1 mg PO DAILY [facility] Last Admin: 10/13/19 09:43 Dose: 1 mg Documented by: Atorvastatin Calcium (Lipitor -) 10 mg PO HS [facility] Last Admin: 10/13/19 21:09 Dose: 10 mg Documented by: Bupropion HCl (Wellbutrin -) 75 mg PO Q12H [facility] Last Admin: 10/14/19 06:12 Dose: 75 mg Documented by: Carvedilol (Coreg -) 25 mg PO BID [facility] Last Admin: 10/13/19 21:09 Dose: 25 mg Documented by: Eplerenone (Eplerenone) 25 mg PO DAILY [facility] Last Admin: 10/13/19 09:44 Dose: 25 mg Documented by: Furosemide (Lasix -) 20 mg PO DAILY [facility] Last Admin: 10/13/19 09:44 Dose: 20 mg Documented by: Insulin Aspart ([facility] Sliding [facility] -) [facility]; Protocol Last Admin: 10/14/19 06:09 Dose: Not Given Documented by: Melatonin (Melatonin) 5 mg PO HS PRN PRN Reason: INSOMNIA Last Admin: 10/13/19 21:25 Dose: 5 mg Documented by: Metformin HCl (Glucophage Xr -) 500 mg PO DAILY@0700 [facility] Last Admin: 10/14/19 06:12 Dose: 500 mg Documented by: Nystatin (Mycostatin Cream -) 1 applic TP BID [facility] Last Admin: 10/13/19 21:09 Dose: 1 applic Documented by: Sacubitril/Valsartan (Entresto 49 Mg-51 Mg Tablet) 1 tab PO BID [facility] Last Admin: 10/13/19 21:09 Dose: 1 tab Documented by: Tramadol HCl (Ultram -) 50 mg PO Q6H PRN PRN Reason: PAIN LEVEL 4 - 6 Last Admin: 10/11/19 23:54 Dose: 50 mg Documented by: Warfarin Sodium (Coumadin -) 5 mg PO DAILY@1800 [facility] Last Admin: 10/13/19 17:26 Dose: 5 mg Documented by: - Objective Vital Signs: Vital Signs Temperature 97.7 F 10/14/19 07:00 Pulse Rate 67 10/14/19 07:00 Respiratory Rate 18 10/14/19 07:00 Blood Pressure 165/61 10/14/19 07:00 O2 Sat by Pulse Oximetry (%) 96 10/14/19 07:00 Constitutional: Yes: No Distress, Calm Neck: Yes: Supple Cardiovascular: Yes: Regular Rate and Rhythm, Murmur (2/6 SM) Respiratory: Yes: Regular, Diminished Gastrointestinal: Yes: Normal Bowel Sounds, Soft, Abdomen, Obese Edema: No Labs: CBC, BMP 10/13/19 08:15 10/13/19 08:15 INR, PTT INR 1.84 (0.83-1.09) H 10/13/19 08:15 Problem List - Problems (1) Hypotension Code(s): I95.9 - HYPOTENSION, UNSPECIFIED Qualifiers: Hypotension type: hypotension due to hypovolemia Qualified Code(s): I95.89 - Other hypotension; E86.1 - Hypovolemia (2) Acute on chronic systolic congestive heart failure Code(s): I50.23 - ACUTE ON CHRONIC SYSTOLIC (CONGESTIVE) HEART FAILURE (3) Anticoagulant long-term use Code(s): Z79.01 - MIXER WET POUR (CURRENT) USE OF 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 (4) COPD without exacerbation Code(s): J44.9 - CHRONIC OBSTRUCTIVE PULMONARY DISEASE, UNSPECIFIED (5) Cancer of left breast Code(s): C50.912 - MALIGNANT NEOPLASM OF UNSPECIFIED SITE OF LEFT FEMALE BREAST Qualifiers: Breast location: upper outer quadrant of breast Estrogen receptor status: positive Patient sex: female Qualified Code(s): C50.412 - Malignant neoplasm of upper-outer quadrant of left female breast (6) Diabetes mellitus type 2, noninsulin dependent Code(s): E11.9 - TYPE 2 DIABETES MELLITUS WITHOUT COMPLICATIONS (8) Hypercholesterolemia Code(s): E78.00 - PURE HYPERCHOLESTEROLEMIA, UNSPECIFIED (9) Hypertensive heart and renal disease Qualifiers: Heart failure presence: without heart failure Hypertensive chronic kidney disease stage: stage 1-4 or unspecified chronic kidney disease Qualified Code(s): I13.10 - Hypertensive heart and chronic kidney disease without heart failure, with stage 1 through stage 4 chronic kidney disease, or unspecified chronic kidney disease (10) Visual impairment Code(s): H54.7 - UNSPECIFIED VISUAL LOSS Assessment/Plan Echocardiogram: 07/22/2019 Severely decreased LVEF 30-35%, severe MR, mild-mod TR RVSP 30-40 mmHg, mild Mg 11 mmHg Echocardiography (12/27/18): Normal LV systolic function, LVEF 55-60%, mild , mild MR. Nuclear MPI (12/28/18): Normal perfusion with LVEF 60%. Carotid Doppler(05/04/18): Mild right atherosclerotic plaque and moderate left atherosclerotic plaque in the common carotid extending into internal carotid artery. 12/24/2016 Echo: Normal LV size with moderate decreased LV fxn, mild pericardial effusion, mild ASHLEY, mod MR, mild [place], TR 01/28/2018 Echo: Normal LV size with severely decreased LV fxn EF 30-35%, normal RV size and fxn, mod LAE, mod MR 1. Orthostatic near syncope resolved 2. Nonischemic cardiomyopathy LVEF 30-35% 3. Severe MR 4. History of CVA with left MCA thrombus and subtherapeutic INR 5. 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 COPD with Chronic Hypoxic Respiratory Failure and long smoking history 7. HTN 8. Hypercholesterolemia 9. Macrocytic anemia r/o MDS 10. Type 2 DM 11. Renal artery stenosis 12. Acute on CKD improved, hyperkalemia with eplerenone 13. Mild 14. Breast cancer 15. Basal cell carcinoma left lower leg PLAN: 1. Continue furosemide 20 qd given renal fxn recovery, await bone marrow sent for flow/fish/cytogenetics/myeloid molecular profile/ 2. Continue Carvedilol 25 mg mg BID, Lipitor 10 mg QHS, Entresto 49/51 bid and now tolerating eplerenone 25 qd as renal fxn stabilized and hyperkalemia resolved after resumption of Lasix and uptitration of Entresto 3. Coumadin per INR 2.0-3.[address]-guided bone marrow biopsy, monitor Hgb 4. O2 to keep SpO2 >90% and inhaled bronchodilators as needed 5. Transfuse to maintain Hgb>8.0 6. Encourage ambulation /PT, Mohs micrographic surgery per [facility] 7. Eventual f/u with Dr. Mahoney upon d/c , Patient already has appointment end of the month
[2019-10-14] MEDS ORDERED: PT OWN MED DRAWER 7, Y5N ONE (09:24)
[2019-10-14] MEDS: FUROSEMIDE 20 MG TABLET (FP) PO SCH (09:27)
[2019-10-14] MEDS: CARVEDILOL 25 MG TABLET (FP) PO SCH (09:27)
[2019-10-14] MEDS: SACUBITRIL/VALSARTAN 49 MG-51 MG TABLET PO SCH (09:27)
[2019-10-14] MEDS: EPLERENONE 25 MG TABLET PO SCH (09:27)
[2019-10-14] MEDS: ANASTROZOLE 1 MG TABLET PO SCH (09:27)
[2019-10-14] MEDS: NYSTATIN 100,000 UNIT/GM TOPICAL CREAM 15 GM TUBE TP SCH (09:28)
[2019-10-14 09:40] LABS: HEMATOCRIT 25.1 % (32.4-45.2); HEMOGLOBIN 8.2 GM/dL (10.7-15.3); MCH 31.3 pg (25.7-33.7); MCHC 32.5 g/dl (32.0-36.0); MEAN CELL VOLUME 96.4 fl (80-96); MEAN PLT VOLUME 8.5 fl (7.5-11.1); PLATELET COUNT 224 K/MM3 (134-434); RBC 2.61 M/mm3 (3.60-5.2); RDW 16.3 % (11.6-15.6); WHITE BLOOD COUNT 6.3 K/mm3 (4.0-10.0)
[2019-10-14 09:44] LABS: INR 1.94 (0.83-1.09)
[2019-10-14] MEDS ORDERED: WARFARIN NA 2 MG TABLET PO ONE (09:54)
[2019-10-14] MEDS: WARFARIN NA 5 MG TABLET PO SCH (17:27)
[2019-10-14 18:18] VITALS: BP 153/50; PULSE 67; TEMP 99.2
--- NOTE | 2019-10-15 12:24 | PN.HO ---
Progress Note (short form) - Note Progress Note: Discussed with Dr. Caputo preliminat BMBX --no blasts. aberrant myeloid antigen expression concerning for MDS await finnal pathology may be a candidate for erythropoietin
--- NOTE | 2019-10-21 11:18 | PATH ---
Surgical Pathology Report Patient Name: TERRY SONG [facility]. Rec. #: [id number] /Age/Gender: 1950 (Age: 68) / F Account: [id number] Location: [address] [place] [address] Taken: 10/05/2019 Received: 10/05/2019 Reported: 10/21/2019 Physicians: Nina Brown M.D. Specimen(s) Received A: BONE MARROW BIOPSY B: BONE MARROW CLOT C: BONE MARROW ASPIRATION SMEARS D: BONE MARROW BLOOD Clinical History Macrocytic anemia, evaluate for MDS Final Diagnosis A-D. BONE MARROW, CLOT, ASPIRATE SMEAR, BLOOD, BIOPSY: NORMOCELLULAR MARROW WITH MATURING TRILINEAGE HEMATOPOIESIS AND ERYTHROID HYPERPLASIA NO MORPHOLOGIC EVIDENCE OF OVERT/ADVANCED MYELODYSPLASIA. PLASMA CELLS ARE MILDLY INCREASED (3-5% OF TOTAL) WITH MILD KAPPA EXCESS. SEE COMMENT. Comment: Although there is no morphologic evidence of overt/advance myelodysplasia, the morphologic evaluation is suboptimal due to aspicular and hemodilute aspirate smears. Correlation with cytogenetics/FISH studies (negative findings) and pending NGS myeloid panel is need for a complete evaluation. There is mild plasmacytosis with mild kappa excess; clinical significance of this finding is uncertain. Close-follow up is recommended. This case was sent to Dr. Barrie Davies from [facility], [place], [place] ([id number]) the diagnosis above reflects his opinion. FLOW CYTOMETRY performed and interpreted at [facility] ([id number]) shows the following: INTERPRETATION: - No evidence for increase in blasts. However, abnormal myeloid maturation is present. - No evidence of clonal B-cell or abnormal T-cell population. No evidence of clonal plasma cell population. COMMENT: Abnormal myeloid maturation is of non-specific finding but can be associated with myeloid neoplasm. Correlation with a comprehensive bone marrow morphologic examination and cytogenetic studies is recommended. FLUORESCENCE IN-SITU HYBRIDIZATION performed and interpreted at [facility] ([id number]) shows the following: INTERPRETATION: MDS panel 1. Negative for monosomy 5 and a deletion of CSF1R/RPS14 on the long arm of chromosome 5 at q33. 2. Negative for monosomy 7 and a deletion of MDFIC on the long arm of chromosome 7 at q31. 3. Negative for trisomy 8. 4. Negative for a deletion of PTPRT on the long arm of chromosome 20 at q12. CHROMOSOME ANALYSIS performed and interpreted at [facility], [place], [place] (Specimen #: [id number]) shows the following: RESULTS: 46, XX [20] Female karyotype INTERPRETATION: Normal female chromosome complement observed in all cells examined. There was no evidence of a chromosome abnormality within the limits of the technology utilized. Reports has been faxed to Dr. Brown's office on 10/18/19. Electronically Signed Madelyn Beckham M.D. 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 [id number] See [facility] for additional details. Madelyn Beckham M.D. Gross Description A. Received in formalin labeled "bone marrow biopsy," is a 1.4 cm in length x 0.1 cm in diameter maloney-yellow, cylindrical portion of bone admixed with blood clot. The specimen is submitted in toto in one cassette, following decalcification. B. Received in formalin labeled "bone marrow biopsy," is a 2.5 x 1.9 x 1.4 cm red-brown blood clot. The specimen is entirely submitted in 2 cassettes. C. Received are 9 bone marrow aspiration smear slides. D. Received are 2 green top tubes and 2 lavender top tubes of bone marrow blood which are sent to [facility]. 10/06/2019 saudi10/06/2019
== END 2019-10-14 18:50 | DRG 803 ==
LOC: SUPCPDRO 12:51 → JER 12:51 → JERBED 16:37 → INTOOBSV 16:37 → J4S 21:56 → OBSVTOIN 10-03 10:27 → J5S 10-04 13:07
PROVIDERS: ADMIT Internal Medicine; ATTEND Internal Medicine
PROC: 0QB23ZX Excision of Right Pelvic Bone, Percutaneous Approach, Diagnostic (ICD-10-PCS; principal; 2019-10-05)
DX: D64.9 Anemia, unspecified (principal); I50.22 Chronic systolic (congestive) heart failure; I42.8 Other cardiomyopathies; J96.11 Chronic respiratory failure with hypoxia; I13.0 Hypertensive heart and chronic kidney disease with heart failure and stage 1 through stage 4 chronic kidney disease, or unspecified chronic kidney disease; N17.9 Acute kidney failure, unspecified; E86.0 Dehydration; I95.1 Orthostatic hypotension; F32.9 Major depressive disorder, single episode, unspecified; E11.9 Type 2 diabetes mellitus without complications; J44.9 Chronic obstructive pulmonary disease, unspecified; Z85.3 Personal history of malignant neoplasm of breast; C44.709 Unspecified malignant neoplasm of skin of left lower limb, including hip; I25.10 Atherosclerotic heart disease of native coronary artery without angina pectoris; N18.9 Chronic kidney disease, unspecified
CPT/HCPCS: 20220; 36415; 36430; 70450-TC; 71045-TC-FY; 73030-TC-LT-FY; 80048; 80053; 81003; 82272; 82550; 82607; 82728; 82746; 82962; 83036; 83540; 83550; 83615; 83735; 84439; 84443; 84484; 85025; 85027; 85044; 85610; 85730; 86850; 86900; 86901; 86922; 87070; 87086; 87205; 88300-TC; 88305-TC; 88311-TC; 88313-TC; 93005; 93010; 94010; 94761; 97116-GP; 97161-GP; 99285-25; G0378; J1644; P9058; U0003

== ENCOUNTER 2019-10-21 17:40 | Inpatient (IN) | payer OTHER ==
--- NOTE | 2019-10-21 19:41 | PDOC ---
History of Present Illness - General Chief Complaint: Blood Transfusion Stated Complaint: LOW HEMOGLOBIN - History of Present Illness Initial Comments: Pt is a 68yo F with PMH anemia, CHF (EF 30-35% 07/2019), COPD, NIDDM, breast cancer, basal cell carcinoma, hx of embolic strokes on warfarin, who presents from [facility] with low hemoglobin (7.1) from [facility]. Pt states that she currently feels tired, which is her usual when she has a low hemoglobin. States unknown cause of anemia, recently had bone marrow biopsy 3 weeks ago, which she was told is normal. Has never had a colonoscopy, but has had multiple FOBT in past which were negative. Denies fevers, chills, chest pain, SOB, abdominal pain, n/v, melena, hematochezia. PMH: see above PSHx: see chart Meds: see chart All: NKDA Social: denies tobacco, etoh, illicit drug use Review of Systems CONSTITUTIONAL:denies fever, chills, diaphoresis, generalized weakness, malaise, loss of appetite HEENT:denies rhinorrhea, nasal congestion, sore throat, ear pain, eye pain, visual changes CARDIOVASCULAR:denies chest pain, palpitations, irregular heart rate, lightheadedness RESPIRATORY:denies cough, shortness of breath, wheezing GASTROINTESTINAL: denies abdominal pain, nausea, vomiting, diarrhea, constipation, melena, hematochezia GENITOURINARY:denies dysuria, frequency, urgency, hesitancy, hematuria MUSCULOSKELETAL:denies myalgia, arthralgia HEMATOLOGIC/IMMUNOLOGIC:denies easy bleeding, easy bruising ENDOCRINE: denies unexplained weight gain, unexplained weight loss NEUROLOGIC:denies headache, loss of consciousness, focal weakness or paresthesias, dizziness, unsteady gait, mental status changes, bladder or bowel incontinence SKIN:denies rash, itching, pallor Physical Exam General: awake, alert, fully oriented, in no acute distress, well developed, well nourished Head: normocephalic, atraumatic Eyes: PERRL, EOMI, anicteric sclera, conjunctiva clear ENT: hearing grossly normal, Moist mucous membranes Neck: supple, normal ROM Lung: equal breath sounds b/l, CTA b/l, no crackles, wheezes; no distress, speaks full sentences Heart: RRR, normal S1, S2 Abdomen: soft, non tender, normoactive bowel sounds, no guarding, rebound, masses Extremities: no edema, no erythema or tenderness, DP/PT pulses 2+ and symmetric, no clubbing, cyanosis Neuro: CN2-12 grossly intact, normal speech, sensation intact Skin: warm, dry, no rashes or lesions noted Past History - Medical History Allergies/Adverse Reactions: Allergies Allergy/AdvReac Type Severity Reaction Status Date / Time No Known Allergies Allergy Verified 07/14/19 10:32 Home Medications: Ambulatory Orders Bupropion HCl [Wellbutrin -] 75 mg PO BID 01/17/17 Acetaminophen [Pain Relief] 650 mg PO Q6H PRN 06/23/19 Warfarin Na [Coumadin -] 5 mg PO DAILY@1800 tablet 07/27/19 traMADol HCL [Ultram -] 50 mg PO Q6H PRN tablet 10/13/19 Anemia: Yes Asthma: No Cancer: Yes (BASAL CELL CA, Left Breast CA) Cardiac Disorders: No CVA: Yes (2012) COPD: Yes CHF: Yes DVT: No Dementia: No Diabetes: Yes (NIDDM) GI Disorders: Yes (perforated sigmoid colon with Colostomy now reversed) Disorders: No HTN: Yes Hypercholesterolemia: Yes Liver Disease: No Seizures: No Thyroid Disease: No - Surgical History Abdominal Surgery: Yes (colostomy with reversal, hernia repair, reconstructed stomach) Appendectomy: No Cardiac Surgery: No Cholecystectomy: No Lung Surgery: No Neurologic Surgery: No Orthopedic Surgery: No - Reproductive History Is Patient Now?: No - Immunization History Immunization Up to Date: Yes - Psycho-Social/Smoking History Smoking Status: Yes Smoking History: Never smoked Have you smoked in the past 12 months: No Number of Cigarettes Smoked Daily: 20 If you are a former smoker, when did you quit?: 09/23/2019 Information on smoking cessation initiated: No 'Breaking Loose' booklet given: 09/27/19 - Substance Abuse Hx (Audit-C & DAST Scrn) How often the patient has a drink containing alcohol: Never Score: In Men: 4 or > Positive; In Women: 3 or > Positive: 0 Screen Result (Pos requires Nsg. Audit-10AR): Negative In the last yr the pt used illegal drug/Rx for NonMed reason: No Score: Yes response is considered Positive: 0 Screen Result (Positive result requires Nsg. DAST-10): Negative *Physical Exam - Vital Signs Last Vital Signs Temp Pulse Resp BP Pulse Ox 98.4 F 86 18 139/99 99 10/21/19 17:58 10/21/19 17:58 10/21/19 17:58 10/21/19 17:58 10/21/19 17:58 ED Treatment Course - LABORATORY CBC & Chemistry Diagram: 10/21/19 20:30 10/21/19 20:30 Medical Decision Making - Medical Decision Making Pt is a 68yo F with PMH who presents with low hemoglobin from [facility] DDx: chronic anemia, UGIB Plan: labs, banana bag EKG: normal sinus rhythm, HR 100bpm, NM 172ms, QRS 118ms, QTc 510ms, incomplete LBBB, prolonged QT Labs: anemia (7.9) @ baseline. Will not transfuse patient. 10/21/19 23:42 Pt states that she feels short of breath, satting 90-92% Will order troponin and BNP, repeat EKG BNP: 8227.2, elevated from previous; troponin WNL; EKG unchanged from initial EKG Will give 40 garland Discussed admission for CHF exacerbation with patient, who agreed with plan. Pt d/w Dr. Caputo who accepted care of patient. Disposition Admit Discharge - Discharge Information Problems reviewed: Yes Clinical Impression/Diagnosis: Anemia Qualifiers: Anemia type: unspecified type Qualified Code(s): D64.9 - Anemia, unspecified Condition: Stable Disposition: HOME - Admission No - Follow up/Referral - Patient Discharge Instructions - Post Discharge Activity
--- NOTE | 2019-10-21 20:18 | PDOC ---
Attending Attestation - Resident Resident Name: Flor Jones - ED Attending Attestation I have performed the following: I have examined & evaluated the patient, The case was reviewed & discussed with the resident, I agree w/resident's findings & plan - HPI HPI: 10/21/19 23:04 PT COMES WITH REQUEST FOR BLOOD TESTING FOR ANEMIA AND BLOOD TRANSFUSION IF HER HB/HCT FALLS LOWER THAN HER USUAL LEVELS. pT HAS NO SPECIFIC COMPLAINTS. SHE WAS SENT IN BY HER JAIL. - Physicial Exam PE: 10/21/19 23:09 PT IS ALERT AND AWAKE AND ANSWERING QUESTIONS. AFEBRILE VSS PT HAS NORMAL HEART AND LUNGS ABD SOFT NT ND AGREE WITH RESIDENT EXAM - Medical Decision Making 10/21/19 23:09 HB/HCT NORMAL PT WILL BE HYDRATED WITH IV SALINE AND VITAMINS. SHE IS STABLE AT THIS TIME, BUT HAS BEEN COMPLAINING OF SOB 10/22/19 00:51 PT HAS A BNP OF 8000+ AND SHE WILL BE TREATED WITH LASIX AND WILL BE ADMITTED, SHE REQUIRES SUPPLEMENTAL O2. 10/22/19 00:52 Heart Score/ECG Review - ECG Intrepretation Rhythm: Regular Rhythm - Oley Oley: Normal - P and NV Atrial Enlargement: Left Prominent R with upright T in V1 (true posterior SD): No Delta Wave(s) Present: No WPW: No - QRS Poor R Wave Progression: No Q Wave Present: No - ST and T Early Repolarization: No Non Specific ST-T Wave changes: No Flattened T Waves: No Prolonged Q-T Interval: Yes Comment:: 10/22/19 20:07 EKG#1 QTc 491; EKG #2 QTc 510 - ECG Impressions Normal ECG: Yes Non-specific ST Elevation: No Ischemic Changes: No Discharge - Discharge Information Problems reviewed: Yes Clinical Impression/Diagnosis: Anemia Qualifiers: Anemia type: unspecified type Qualified Code(s): D64.9 - Anemia, unspecified Condition: Stable Disposition: HOME - Follow up/Referral - Patient Discharge Instructions - Post Discharge Activity
[2019-10-21] MEDS ORDERED: FOLIC ACID INJECTION - 1 MG, THIAMINE HCL 100 MG, MULTIVIT INJECTION ADULT 10 ML in SOD... IVPB ONE ×2 (21:11→21:49)
[2019-10-21 21:24] LABS: BASO % 0.3 % (0-2.0); EOS % 2.5 % (0-4.5); HEMATOCRIT 24.1 % (32.4-45.2); HEMOGLOBIN 7.9 GM/dL (10.7-15.3); LYMPH % 15.9 % (8-40); MCH 31.9 pg (25.7-33.7); MCHC 32.7 g/dl (32.0-36.0); MEAN CELL VOLUME 97.7 fl (80-96); MEAN PLT VOLUME 8.2 fl (7.5-11.1); NEUT % 73.3 % (42.8-82.8); PLATELET COUNT 266 K/MM3 (134-434); RBC 2.46 M/mm3 (3.60-5.2); RDW 16.2 % (11.6-15.6); WHITE BLOOD COUNT 7.6 K/mm3 (4.0-10.0)
[2019-10-21 21:27] LABS: ALBUMIN 2.9 g/dl (3.4-5.0); ALK PHOS 102 U/L (45-117); ANION GAP 8 MMOL/L (8-16); BILIRUBIN,TOTAL 0.2 mg/dL (0.2-1); BLOOD UREA NITROGEN 37.7 mg/dL (7-18); CALCIUM 9.1 mg/dL (8.5-10.1); CHLORIDE 107 mmol/L (98-107); CO2 25 mmol/L (21-32); CREATININE 1.7 mg/dL (0.55-1.3); GLUCOSE,RANDOM 99 mg/dL (74-106); POTASSIUM 4.5 mmol/L (3.5-5.1); SGOT/AST 9 U/L (15-37); SGPT/ALT 12 U/L (13-61); SODIUM 139 mmol/L (136-145); TOT PROT 6.5 g/dl (6.4-8.2)
[2019-10-21 21:32] LABS: INR 1.24 (0.83-1.09); PROTHROMBIN TIME (PATIENT) 14.7 SEC (9.7-13.0)
[2019-10-21 21:35] LABS: ACTIVATED PTT 31.9 SECONDS (25.2-36.5)
[2019-10-21 23:55] LABS: N-TERMINAL BNP 8227.2 pg/ml (5-125)
[2019-10-22] MEDS ORDERED: FUROSEMIDE 40 MG/4 ML INJECTABLE VIAL IVPUSH ONE (00:30)
[2019-10-22] MEDS ORDERED: FUROSEMIDE 40 MG/4 ML INJECTABLE VIAL ONE (00:45)
--- NOTE | 2019-10-22 01:15 | PN ---
Teaching Attending Note Name of Resident: Xavier Aguirre ATTENDING PHYSICIAN STATEMENT I saw and evaluated the patient. I reviewed the resident's note and discussed the case with the resident. I agree with the resident's findings and plan as documented. SUBJECTIVE: Patient is a 68 year old woman with a PMH of Anemia, HFrEF (EF 30-35%; 020), COPD, HTN, Colectomy in 2017 (for bowel perforation), Ventral hernia repair (04/2018), Right eye blindness, HLD, GERD, NIDDM, Left breast cancer (s/p lumpectomy; no chemo or radiotherapy), Basal cell carcinoma, Embolic strokes (on Coumadin) who was sent to the ER from [facility] for low hemoglobin (7.1 g/dL). Patient reports that she currently feels tired, which is her usual when she has a low hemoglobin. Has had anemia workup including a recent bone marrow biopsy 3 weeks ago, which she was told is normal. Reportedly had a PET Scan within the last year but is unsure of the results. Had increased [place] light chains but no M spike. Never had a colonoscopy. Patient denies chest pain, abdominal pain, headache, palpitations, dizziness, fever, chills, nausea, vomiting, diarrhea, constipation, dysuria, frequency, urgency, melena, hematochezia or hematuria. Smoked half a pack per day for over 40 years. Denies alcohol, tobacco or illicit drug use. No sick contacts or recent travels. Has family history of Breast cancer in her sister; Colon cancer in her mother; Sinus cancer in her bother and numerous maternal aunts and uncles. Has tested negative four times for COVID-19. OBJECTIVE: Alert Vital Signs Period Temp Pulse Resp BP Sys/Holt Pulse Ox Last 24 Hr 98.4 F 74-86 16-18 130-139/50-99 99-100 HEENT: No Jaundice, eye redness or discharge, PERRLA, EOMI. Normocephalic, atraumatic. External ears are normal and hearing is grossly intact. No nasal discharge. Neck: Supple, nontender. No palpable adenopathy or thyromegaly. No JVD Chest: Good effort. Clear to auscultation and percussion. Heart: Regular. No S3, rub or murmur Abdomen: Not distended, soft, nontender and no HSM. No rebound or guarding. Normal bowel sounds. Ext: Peripheral pulses intact. No leg edema. Skin: Warm and dry. No petechiae, rash or ecchymosis. Neuro: Alert. Oriented x3. CN 2-12 grossly intact. Sensation grossly intact in all four extremities and DTR are symmetric. Psych: Appropriate mood and affect. Good insight. Home Medications Medication Instructions Recorded Bupropion HCl [Wellbutrin -] 75 mg PO BID 01/17/17 Acetaminophen [Pain Relief] 650 mg PO Q6H PRN 06/23/19 Warfarin Na [Coumadin -] 5 mg PO DAILY@1800 tablet 07/27/19 traMADol HCL [Ultram -] 50 mg PO Q6H PRN tablet 10/13/19 Abnormal Lab Results 10/21/19 10/21/19 10/21/19 20:30 20:30 20:30 RBC 2.46 L Hgb 7.9 L Hct 24.1 L MCV 97.7 H RDW 16.2 H PT with INR 14.70 H INR 1.24 H BUN 37.7 H Creatinine 1.7 H AST 9 L ALT 12 L B-Natriuretic Peptide 8227.2 H Albumin 2.9 L ASSESSMENT AND PLAN: 1. Symptomatic anemia/CHF exacerbation - Anemia likely partly due to CKD. Initial stool guaiac was negative. Would have benefited from IV iron and Procrit therapy while anemia was being worked up. Transferin saturation was 24 percent on 10/04/2019. Will get CXR STAT, urinalysis, do serial stool guaiac, transfuse one unit PRBC and subsequently give IV Venofer 500 mg x 2 and then commence Procrit therapy. Consult GI and Hematology. EKG shows NSR at 100/minute, ILBBB and QTc [address]-T wave changes. Not significantly changed compared to prior EKG. Initial troponin is negative. Will avoid drugs that may prolong QTc. ECHO from 07/22/2019 showed LVEF of 30-35% and severe global hypokinesis of left ventricle. Will admit to telemetry, treat with IV Lasix to achieve adequate diuresis, get ECHO, restrict dietary salt intake, monitor renal function, monitor and replete electrolytes, get daily weight and consult Cardiology. Viral testing for COVID-19 ordered and patient placed on airborne, droplet and contact isolation. Will continue comprehensive care for all of patients comorbid conditions. 2. Hypoalbuminemia - Possibly due to combined effects of malnutrition and inflammation associated with comorbid conditions. Will ensure adequate dietary protein intake and also consult telecommunication equipment repairer. Urinalysis pending. 3. DM For now, we will hold the home diabetes drugs and implement sliding scale insulin regimen. Provide comprehensive diabetes care with patient teaching and counseling about the importance of adherence to prescribed diabetes regimen, euglycemia, eye care and foot care. 4. CKD Has multiple risk factors for CKD. Will get kidney sonogram, PTH, p hosphate, monitor urine output and consult Nephrology. Avoid nephrotoxic agents such as NSAIDS, aminoglycosides, contrast dyes and certain Alternative medicine products. 5. Obesity Counseled on the risks associated with obesity. Will provide patient all the necessary assistance, counseling and positive reinforcement to facilitate weight loss. Consult telecommunication equipment repairer. 6. Hypertension Will restart suitable outpatient antihypertensive drugs when clinically appropriate. Subsequently, will revise regimen to ensure [id number] excellent BP control. Patient counseled on the injurious effects of uncontrolled hypertension. Nonpharmacologic measures to control hypertension like weight loss, salt restriction and exercise stressed. Importance of adherence to treatment regimen and attainment of normotension emphasized. 7. DVT prophylaxis - On Coumadin. 8. Advance directives - Full code
[2019-10-22] MEDS ORDERED: MELATONIN 5 MG TABLETS PO ONE (01:23)
[2019-10-22] MEDS ORDERED: MELATONIN 5 MG TABLETS ONE (01:45)
[2019-10-22] MEDS: buPROPion HCL 75 MG TABLET PO SCH ×2 (08:55→20:54)
[2019-10-22] MEDS ORDERED: FUROSEMIDE 40 MG TABLET (FP) ONE (10:59)
[2019-10-22] MEDS ORDERED: ENOXAPARIN NA (PORCINE) 80 MG/0.8 ML DISP.SYRIN SQ ONE (10:59)
[2019-10-22] MEDS: FUROSEMIDE 40 MG TABLET (FP) PO SCH (11:00)
[2019-10-22] MEDS: SACUBITRIL/VALSARTAN 24 MG-26 MG TABLET PO SCH ×2 (11:00→21:59)
[2019-10-22] MEDS: ENOXAPARIN NA (PORCINE) 80 MG/0.8 ML DISP.SYRIN SQ SCH ×2 (11:00→21:59)
[2019-10-22] MEDS: ANASTROZOLE 1 MG TABLET PO SCH (11:00)
[2019-10-22] MEDS: CARVEDILOL 6.25 MG TABLET (FP) PO SCH ×2 (11:00→21:59)
--- NOTE | 2019-10-22 12:44 | HP ---
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 She was admitted in early September for hypotension 2nd to dehydration; she was rehydrated but then there was a drop in her Hgb (even more from her anemic baseline) requiring a PC transfusion. Her Hgb then averaged in the mid 's. repeated stool for OB testing was negative. She is s/p BM biopsy as well which did not reveal any MDS or other ominous descriptors. While in the ER was was also a bit SOB; and auscultation revealed the presence of crackles and was given IV Lasix and now feels well. She denies CP; SOB at this time. She denied any abd pains, n-v, or diarrhea. 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: CVA (no residual in 2012, has been on coumadin,) Cardiovascular: Yes: CHF (systolic), HTN (concern for L renal artery stenosis), Hyperlipdemia Pulmonary: Yes: COPD Gastrointestinal: Yes: GERD Renal/: Yes: Other (L renal artery stenosis) ...: No Heme/Onc: Yes: Anemia, Other (BCA) Infectious Disease: Yes: C-Diff Psych: Yes: Depression Musculoskeletal: Yes: Osteoarthritis ENT: Yes: Other (visually impaired) Endocrine: Yes: Diabetes Mellitus (NIDDM) Dermatology: Yes: Basal Cell (multiple sites removed) - Past Surgical History Past Surgical History: Yes: Breast Biopsy (2005 and 06/16), Cataract Removal (bilateral), Colectomy (sigmoidectomy with colostomy (Dwaine's) for perforated sigmoid), Colostomy (reversed in 2018, had colon rupture in 2017, surgery with the colostomy,). No: Colonoscopy (never had) - Smoking History Smoking history: Former smoker Have you smoked in the past 12 months: No Aproximately how many cigarettes per day: 20 If you are a former smoker, when did you quit?: 09/23/2019 - Alcohol/Substance Use Hx Alcohol Use: No History of Substance Use: reports: None - Social History Usual Living Arrangement: Yes: Alone ADL: Family Assistance History of Recent Travel: No Home Medications - Allergies Allergies/Adverse Reactions: Allergies Allergy/AdvReac Type Severity Reaction Status Date / Time No Known Allergies Allergy Verified 07/14/19 10:32 - Home Medications Home Medications: Ambulatory Orders Bupropion HCl [Wellbutrin -] 75 mg PO BID 01/17/17 Acetaminophen [Pain Relief] 650 mg PO Q6H PRN 06/23/19 Warfarin Na [Coumadin -] 5 mg PO DAILY@1800 tablet 07/27/19 traMADol HCL [Ultram -] 50 mg PO Q6H PRN tablet 10/13/19 Family Medical History Family Hx Cancer: Sister Family Hx Diabetes: Sister Review of Systems - Review of Systems Constitutional: reports: Weakness Eyes: reports: No Symptoms HENT: reports: No Symptoms Neck: reports: No Symptoms Cardiovascular: reports: No Symptoms Respiratory: reports: No Symptoms Gastrointestinal: reports: No Symptoms Genitourinary: reports: No Symptoms Breasts: reports: Lumps (chronic "lump" Lt breast) Musculoskeletal: reports: Other (some musck weakness) Neurological: reports: Weakness Endocrine: reports: No Symptoms Hematology/Lymphatic: reports: No Symptoms Psychiatric: reports: No Symptoms Physical Examination Vital Signs: Vital Signs Temperature 97.7 F 10/22/19 07:34 Pulse Rate 68 10/22/19 11:00 Respiratory Rate 20 10/22/19 11:00 Blood Pressure 142/49 L 10/22/19 11:00 O2 Sat by Pulse Oximetry (%) 100 10/22/19 11:00 skin--eschar on inner lower rt calf lesion of about 1cm head--alopecia eyes--asymm gaze; Rt cornea opacified oral--no appreciable lesions neck--no masses lungs--distant BS; unlabored heart--RR abd--obese, soft, NT, ND back--no mary tenderness ext--no CCE neuro--alert, verbal, coherent; no gross focal deficits ```````````````````````````````````````````````` CBCD WBC 7.6 K/mm3 (4.0-10.0) 10/21/19 20:30 RBC 2.46 M/mm3 (3.60-5.2) L 10/21/19 20:30 Hgb 7.9 GM/dL (10.7-15.3) L 10/21/19 20:30 Hct 24.1 % (32.4-45.2) L 10/21/19 20:30 MCV 97.7 fl (80-96) H 10/21/19 20:30 MCHC 32.7 g/dl (32.0-36.0) 10/21/19 20:30 RDW 16.2 % (11.6-15.6) H 10/21/19 20:30 Plt Count 266 K/MM3 (134-434) 10/21/19 20:30 MPV 8.2 fl (7.5-11.1) 10/21/19 20:30 CMP Sodium 139 mmol/L (136-145) 10/21/19 20:30 Potassium 4.5 mmol/L (3.5-5.1) 10/21/19 20:30 Chloride 107 mmol/L (98-107) 10/21/19 20:30 Carbon Dioxide 25 mmol/L (21-32) 10/21/19 20:30 Anion Gap 8 MMOL/L (8-16) 10/21/19 20:30 BUN 37.7 mg/dL (7-18) H 10/21/19 20:30 Creatinine 1.7 mg/dL (0.55-1.3) H 10/21/19 20:30 Random Glucose 99 mg/dL (74-106) 10/21/19 20:30 Calcium 9.1 mg/dL (8.5-10.1) 10/21/19 20:30 Total Bilirubin 0.2 mg/dL (0.2-1) 10/21/19 20:30 AST 9 U/L (15-37) L 10/21/19 20:30 ALT 12 U/L (13-61) L 10/21/19 20:30 Alkaline Phosphatase 102 U/L (45-117) 10/21/19 20:30 Total Protein 6.5 g/dl (6.4-8.2) 10/21/19 20:30 Albumin 2.9 g/dl (3.4-5.0) L 10/21/19 20:30 CARDIAC ENZYMES Troponin I < 0.02 ng/ml (0.00-0.05) 10/21/19 20:30 INR, PTT INR 1.24 (0.83-1.09) H 10/21/19 20:30 Labs: CBC, BMP 10/21/19 20:30 10/21/19 20:30 Imaging - Results Chest X-ray: Report Reviewed Problem List - Problems (1) Anemia Assessment/Plan: persistent; fluctuating; BM bx did not show flagrant MDS; past iron levels WNL and past stools were negative for OB. Her a/c had been withheld (presumably due to dropping Hgb) at the [facility] and the current INR is 1.2. Will rpeat levels in AM, and obtain GI eval if any further intervention is warranted Code(s): D64.9 - ANEMIA, UNSPECIFIED Qualifiers: Anemia type: unspecified type Qualified Code(s): D64.9 - Anemia, unspecified (2) Acute on chronic systolic congestive heart failure Assessment/Plan: Has low threshold for CHF because of her suboptimal Hgb, but more than likely stemming from the interruption of her BB; ARB, and diuretic (at the [facility]). BNP high but TROPis negative; will resume diuresis Code(s): I50.23 - ACUTE ON CHRONIC SYSTOLIC (CONGESTIVE) HEART FAILURE (3) COPD (chronic obstructive pulmonary disease) Assessment/Plan: stable at present; not oxygen dep Code(s): J44.9 - CHRONIC OBSTRUCTIVE PULMONARY DISEASE, UNSPECIFIED Qualifiers: COPD type: unspecified COPD Qualified Code(s): J44.9 - Chronic obstructive pulmonary disease, unspecified (4) Diabetes mellitus type 2, noninsulin dependent Assessment/Plan: BS have been in acceptable range for the most part; will hold Metformin and check BGM Code(s): E11.9 - TYPE 2 DIABETES MELLITUS WITHOUT COMPLICATIONS (5) Chronic kidney disease Assessment/Plan: not new; could be a contributor to her anemia; may need renal consult as well. Code(s): N18.9 - CHRONIC KIDNEY DISEASE, UNSPECIFIED Qualifiers: Chronic kidney disease stage: stage 3 (moderate) Qualified Code(s): N18.3 - Chronic kidney disease, stage 3 (moderate) (6) Depression Assessment/Plan: stable with Buproprion; not clinically depressed Code(s): F32.9 - MAJOR DEPRESSIVE DISORDER, SINGLE EPISODE, UNSPECIFIED Qualifiers: Depression Type: major depressive disorder Major depression episode severity: unspecified (7) Hypoalbuminemia Assessment/Plan: not new Code(s): E88.09 - OTH DISORDERS OF PLASMA-PROTEIN METABOLISM, NEC (8) Breast cancer, left Assessment/Plan: palpable lesion; chronic; cont arimidex Code(s): C50.912 - MALIGNANT NEOPLASM OF UNSPECIFIED SITE OF LEFT FEMALE BREAST Qualifiers: Breast location: central portion of breast Estrogen receptor status: unspecified Patient sex: female Qualified Code(s): C50.112 - Malignant neoplasm of central portion of left female breast (9) History of CVA (cerebrovascular accident) without residual deficits Assessment/Plan: no gross paresis; or gross cogn impairment appreciated; Has been Txd with warafarin (10) Anticoagulant long-term use Assessment/Plan: for above reason; present INR is subtherapeutic; placed on Lovenox Code(s): Z79.01 - INTERMEDIATE (CURRENT) USE OF 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 (11) Visual impairment Assessment/Plan: Blindness Rt eye; and diminshed vision on Lt Code(s): H54.7 - UNSPECIFIED VISUAL LOSS (12) Elderly person living alone Assessment/Plan: given co morbidities and limited ability to care for herself she remains a high risk for decompensation and for hospitalization. Code(s): Z60.2 - PROBLEMS RELATED TO LIVING ALONE Assessment/Plan 68 YO with persistent anemia of unclear etiology; w/u & mgmt as described. ~~~~~~~~~~~~~~~~~~~~~~~~~~~~~~ Dr Caputo
--- NOTE | 2019-10-22 12:58 | CON.GI ---
Consult Consult Specialty:: GI Referred by:: Anemia Reason for Consultation:: Anemia - History of Present Illness Chief Complaint: Anemia History of Present Illness: 68F [place] evaluation of anemia. Asked to evaluated anemia. In review of [place] she has been anemic from 2017. No overt bleeding. Intermittent loose bowel movements. guaiac negative from specimen sent to lab this admission and from multiple other admissions. he anemia is macrocytic Is on coumadin for recurrent CVA. Mother may have had colon cancer. Ms. Mejía has never had colonoscopy. Was scheduled to have one performed at [facility] w/ Dr. Jose Nicolas. She was advised that the insurance would not pay to have it performed there, however, she contacted the insurance company and was advised that they would pay for that service at [facility] [place]. Perforated sigmoid colon 2016 requiring barbara's procedure. Had reversal of colostomy. Recent ventral hernia repair at [facility] 05/19. 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: CVA (no residual in 2012, has been on coumadin,) Cardio/Vascular: Yes: CHF (systolic), HTN (concern for L renal artery stenosis), Hyperlipdemia Pulmonary: Yes: COPD Gastrointestinal: Yes: GERD Renal/: Yes: Other (L renal artery stenosis) ...: No Infectious Disease: Yes: C-Diff Psych: Yes: Depression Musculoskeletal: Yes: Osteoarthritis ENT: Yes: Other (visually impaired) Endocrine: Yes: Diabetes Mellitus (NIDDM) Dermatology: Yes: Basal Cell (multiple sites removed) Additional Medical History: legally blind, blind in right eye completely; fascial dehiscence of midline abdominal wounds (healing by secondary intention) - Past Surgical History Past Surgical History: Yes: Breast Biopsy (2005 and 06/16), Cataract Removal (bilateral), Colectomy (sigmoidectomy with colostomy (Barbara's) for perforated sigmoid), Colostomy (reversed in 2017, had colon rupture in 2017, surgery with the colostomy,). No: Colonoscopy (never had) Additional Surgical History: legally blind, blind in right eye completely; fascial dehiscence of midline abdominal wounds (healing by secondary intention) - Alcohol/Substance Use Hx Alcohol Use: No History of Substance Use: reports: None - Smoking History Smoking history: Former smoker Have you smoked in the past 12 months: No Aproximately how many cigarettes per day: 20 If you are a former smoker, when did you quit?: 09/23/2019 - Social History Usual Living Arrangement: With Spouse (last several weeks since hospital d/c) ADL: Family Assistance History of Recent Travel: No Home Medications - Allergies Allergies/Adverse Reactions: Allergies Allergy/AdvReac Type Severity Reaction Status Date / Time No Known Allergies Allergy Verified 07/14/19 10:32 - Home Medications Home Medications: Ambulatory Orders Bupropion HCl [Wellbutrin -] 75 mg PO BID 01/17/17 Acetaminophen [Pain Relief] 650 mg PO Q6H PRN 06/23/19 Warfarin Na [Coumadin -] 5 mg PO DAILY@1800 tablet 07/27/19 traMADol HCL [Ultram -] 50 mg PO Q6H PRN tablet 10/13/19 Family Medical History Family Hx Cancer: Sister Family Hx Diabetes: Sister Other Family History: Mother: Possible colon cancer Review of Systems - Review of Systems Constitutional: denies: Chills Cardiovascular: denies: Chest Pain Respiratory: reports: SOB (Chronic). denies: Cough Physical Exam-GI Vital Signs: Vital Signs Temperature 97.7 F 10/22/19 07:34 Pulse Rate 68 10/22/19 11:00 Respiratory Rate 20 10/22/19 11:00 Blood Pressure 142/49 L 10/22/19 11:00 O2 Sat by Pulse Oximetry (%) 100 10/22/19 11:00 Constitutional: Yes: Calm Eyes: No: Sclera Icterus Cardiovascular: Yes: Regular Rate and Rhythm, Murmur (2/6 systolic murmur at the LSB) Respiratory: Yes: Rhonchi (fine rhonchi bilateral lung bases) Gastrointestinal Inspection: Yes: Scars ...Auscultate: Yes: Normoactive Bowel Sounds ...Palpate: Yes: Soft. No: Hepatomegaly, Splenomegaly, Tenderness Edema: No (No LE edema) Neurological: Yes: Alert Labs: CBC, BMP 10/21/19 20:30 10/21/19 20:30 INR, PTT INR 1.24 (0.83-1.09) H 10/21/19 20:30 Hepatic Panel Total Bilirubin 0.2 mg/dL (0.2-1) 10/21/19 20:30 AST 9 U/L (15-37) L 10/21/19 20:30 ALT 12 U/L (13-61) L 10/21/19 20:30 Alkaline Phosphatase 102 U/L (45-117) 10/21/19 20:30 Albumin 2.9 g/dl (3.4-5.0) L 10/21/19 20:30 Assessment/Plan Anemia: Macrocytic in nature guaiac negative Had elevated light chains on previous study Chronic normocytic anemia from 2017, now macrocytic. Given this and family history of colon cancer, discussed possible EGD / colonoscopy once medically cleared. Discussed potential risks of the procedures like but not limited to bleeding, perforation requiring surgery to repair, infection and sedation medication effects all of which could be potentially life threatening. She has agreed to the procedures. Bridging A/C per PMD prior to testing Hematology evaluation
--- NOTE | 2019-10-22 16:28 | CON.HO ---
Consult - text type - Consultation Consultation Note: 68F admitted from [place] for evaluation of anemia. Is on coumadin for recurrent CVA. Perforated sigmoid colon 2017 requiring barbara's procedure. Had reversal of colostomy. Recent ventral hernia repair at [facility] 05/19. Recently admitted for anemia. 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: CVA (no residual in 2012, has been on coumadin,) Cardio/Vascular: Yes: CHF (systolic), HTN (concern for L renal artery stenosis), Hyperlipdemia Pulmonary: Yes: COPD Gastrointestinal: Yes: GERD Renal/: Yes: Other (L renal artery stenosis) Infectious Disease: Yes: C-Diff Psych: Yes: Depression Musculoskeletal: Yes: Osteoarthritis ENT: Yes: Other (visually impaired) Endocrine: Yes: Diabetes Mellitus (NIDDM) Dermatology: Yes: Basal Cell (multiple sites removed) Additional Medical History: legally blind, blind in right eye completely; fascial dehiscence of midline abdominal wounds (healing by secondary intention) LEft breast cancer - Past Surgical History Past Surgical History: Yes: Breast Biopsy (2005 and 06/16), Cataract Removal (bilateral), Colectomy (sigmoidectomy with colostomy (Barbara's) for perforated sigmoid), Colostomy (reversed in 2017, had colon rupture in 2016, surgery with the colostomy,). No: Colonoscopy (never had) Additional Surgical History: legally blind, blind in right eye completely; fascial dehiscence of midline abdominal wounds (healing by secondary intention) - Smoking History Smoking history: Former smoker - Social History Usual Living Arrangement: With Spouse (last several weeks since hospital d/c) ADL: Family Assistance - Allergies Allergies/Adverse Reactions: Allergies Allergy/AdvReac Type Severity Reaction Status Date / Time No Known Allergies Allergy Verified 07/14/19 10:32 - Home Medications Home Medications: Ambulatory Orders Bupropion HCl [Wellbutrin -] 75 mg PO BID 01/17/17 Acetaminophen [Pain Relief] 650 mg PO Q6H PRN 06/23/19 Warfarin Na [Coumadin -] 5 mg PO DAILY@1800 tablet 07/27/19 traMADol HCL [Ultram -] 50 mg PO Q6H PRN tablet 10/13/19 Family Medical History Family Hx Cancer: Sister Family Hx Diabetes: Sister Other Family History: Mother: Possible colon cancer Physical Exam-GI Vital Signs: Vital Signs Temperature 97.7 F 10/22/19 07:34 Pulse Rate 68 10/22/19 11:00 Respiratory Rate 20 10/22/19 11:00 Blood Pressure 142/49 L 10/22/19 11:00 O2 Sat by Pulse Oximetry (%) 100 10/22/19 11:00 Cor: RSR, No murmurs, No gallops Lungs: Clear to P&A Abd: Soft, Normal bowel sounds, No organomegaly Ext:No significant edema Labs: CBC, BMP 10/21/19 20:30 10/21/19 20:30 INR, PTT INR 1.24 (0.83-1.09) H 10/21/19 20:30 Hepatic Panel Total Bilirubin 0.2 mg/dL (0.2-1) 10/21/19 20:30 AST 9 U/L (15-37) L 10/21/19 20:30 ALT 12 U/L (13-61) L 10/21/19 20:30 Alkaline Phosphatase 102 U/L (45-117) 10/21/19 20:30 Albumin 2.9 g/dl (3.4-5.0) L 10/21/19 20:30 Assessment/Plan 68 y.o. F w/ PMHx. of COPD, DM, HTN, HFrEF (EF:30-35%), Hx. of CVAs, R. Eye Blindness, L.Breast CA, HLD and GERD admitted for anemia Is on coumadin for recurrent CVA. Perforated sigmoid colon 2017 requiring barbara's procedure. Had reversal of colostomy. Recent ventral hernia repair at [facility] 05/19. Recently admitted for anemia. Had bone marrow evaluation which did not reveal overt MDS Reconsulted for anemia Macrocytic anemia : B12 -312/folate --nl/TSH 3 Bone marrow bx -- normocellular, trilineage hematopoiesis, plasmacytosis 4-5% . Limited sample but no overt dysplasia, Flow showed abnormal myeloid maturation but no blasts. Cytogenetics and FISH panem were nl. Myeloid molecular profile showed an abnormality of unknown clinical significance. Overall not diagnostic of MDS suspect macrocytosis due to ??? fatty liver Anemia : multifactorial : chronic disease from CKD + gi losses Will recheck iron studies --- target iron saturation --30% and target ferritin 500 Will consider procrit 10-20,000 units weekly GI work up ongoing
[2019-10-22] MEDS ORDERED: PT OWN MED DRAWER 7, Y5N ONE (20:26)
[2019-10-23 07:33] LABS: HEMATOCRIT 21.5 % (32.4-45.2); HEMOGLOBIN 7.1 GM/dL (10.7-15.3); MCH 31.9 pg (25.7-33.7); MCHC 33.2 g/dl (32.0-36.0); MEAN CELL VOLUME 95.9 fl (80-96); MEAN PLT VOLUME 7.9 fl (7.5-11.1); PLATELET COUNT 231 K/MM3 (134-434); RBC 2.24 M/mm3 (3.60-5.2); RDW 15.6 % (11.6-15.6); WHITE BLOOD COUNT 6.6 K/mm3 (4.0-10.0)
[2019-10-23 08:01] LABS: BLOOD UREA NITROGEN 39.8 mg/dL (7-18); CALCIUM 8.6 mg/dL (8.5-10.1); CREATININE 1.8 mg/dL (0.55-1.3); POTASSIUM 4.2 mmol/L (3.5-5.1)
[2019-10-23] MEDS ORDERED: PT OWN MED DRAWER 7, Y5N ONE ×2 (09:54→20:37)
[2019-10-23] MEDS: buPROPion HCL 75 MG TABLET PO SCH ×2 (10:08→20:58)
[2019-10-23] MEDS: ANASTROZOLE 1 MG TABLET PO SCH (10:08)
[2019-10-23] MEDS: CARVEDILOL 6.25 MG TABLET (FP) PO SCH ×2 (10:08→21:03)
[2019-10-23] MEDS: SACUBITRIL/VALSARTAN 24 MG-26 MG TABLET PO SCH ×2 (10:09→21:03)
[2019-10-23] MEDS: ENOXAPARIN NA (PORCINE) 80 MG/0.8 ML DISP.SYRIN SQ SCH ×2 (10:09→21:02)
[2019-10-23] MEDS: FUROSEMIDE 40 MG TABLET (FP) PO SCH (10:09)
[2019-10-23 10:42] LABS: URINE APPEARANCE CLEAR; URINE BILIRUBIN NEGATIVE (NEGATIVE); URINE COLOR YELLOW; URINE GLUCOSE (UA) NEGATIVE (NEGATIVE); URINE KETONE NEGATIVE (NEGATIVE); URINE LEUK ESTERASE NEGATIVE (NEGATIVE); URINE NITRITE NEGATIVE (NEGATIVE); URINE PROTEIN NEGATIVE (NEGATIVE); URINE UROBILINOGEN 0.2 mg/dL (0.2-1.0)
--- NOTE | 2019-10-23 11:25 | PN ---
Progress Note (short form) - Note Progress Note: For EGD/Colon Thursday Hematology evaluation Keep Hgb >8
--- NOTE | 2019-10-23 12:28 | PN ---
Progress Note (short form) - Note Progress Note: Active Medications Anastrozole (Arimidex -) 1 mg PO DAILY [facility] Last Admin: 10/23/19 10:08 Dose: 1 mg Documented by: Bisacodyl (Dulcolax -) 20 mg PO ONCE ONE Stop: 10/24/19 15:01 Bupropion HCl (Wellbutrin -) 75 mg PO BID@0800,2000 [facility] Last Admin: 10/23/19 10:08 Dose: 75 mg Documented by: Carvedilol (Coreg -) 6.25 mg PO BID [facility] Last Admin: 10/23/19 10:08 Dose: 6.25 mg Documented by: Enoxaparin Sodium (Lovenox -) 80 mg SQ BID [facility] Last Admin: 10/23/19 10:09 Dose: 80 mg Documented by: Furosemide (Lasix -) 40 mg PO DAILY [facility] Last Admin: 10/23/19 10:09 Dose: 40 mg Documented by: Melatonin (Melatonin) 5 mg PO HS PRN PRN Reason: INSOMNIA Polyethylene Glycol/Electrolytes (Golytely Solution -) 4,000 ml PO ONCE ONE Stop: 10/24/19 16:01 Sacubitril/Valsartan (Entresto 24 Mg-26 Mg Tablet) 1 tab PO BID [facility] Last Admin: 10/23/19 10:09 Dose: 1 tab Documented by: Laboratory Results - last 24 hr 10/21/19 10/22/19 10/23/19 20:30 16:45 06:07 WBC RBC Hgb Hct MCV MCH MCHC RDW Plt Count MPV Sodium Potassium Chloride Carbon Dioxide Anion Gap BUN Creatinine Est GFR (CKD-EPI)AfAm Est GFR (CKD-EPI)NonAf POC Glucometer 137 Random Glucose Calcium Vitamin B12 Serum Folate TSH Urine Color Yellow Urine Appearance Clear Urine pH 5.0 Ur Specific [place] 1.014 Urine Protein Negative Urine Glucose (UA) Negative Urine Ketones Negative Urine Blood Negative Urine Nitrite Negative Urine Bilirubin Negative Urine Urobilinogen 0.2 Ur Leukocyte Esterase Negative Crossmatch See Detail 10/23/19 10/23/19 10/23/19 06:45 06:45 06:56 WBC 6.6 RBC 2.24 L Hgb 7.1 L Hct 21.5 L MCV 95.9 MCH 31.9 MCHC 33.2 RDW 15.6 Plt Count 231 MPV 7.9 Sodium 141 Potassium 4.2 Chloride 109 H Carbon Dioxide 26 Anion Gap 6 L BUN 39.8 H Creatinine 1.8 H Est GFR (CKD-EPI)AfAm 32.48 Est GFR (CKD-EPI)NonAf 28.02 POC Glucometer 89 Random Glucose 87 Calcium 8.6 Vitamin B12 312 Serum Folate 12 TSH 3.84 H Urine Color Urine Appearance Urine pH Ur Specific [place] Urine Protein Urine Glucose (UA) Urine Ketones Urine Blood Urine Nitrite Urine Bilirubin Urine Urobilinogen Ur Leukocyte Esterase Crossmatch Vital Signs Temperature 98.5 F 10/23/19 10:23 Pulse Rate 71 10/23/19 10:23 Respiratory Rate 18 10/23/19 10:23 Blood Pressure 139/64 10/23/19 10:23 O2 Sat by Pulse Oximetry (%) 98 10/23/19 10:23 CC; no specific complaints of CP or SOB ````````````````````````````````````` skin--some pallor eyes--Rt globe lesion neck--supple lungs--distant, unlabored heart--RR abd--obese, BS+, NT, ND ext--dressing LLE; no edema neuro--alert, lucid, coherent; no focal deficits ```````````````````````````````````````` Summ > anemia--Hgb now down to 7.1; this is of the same pattern as she has been having over the past several months. Cause unclear, as the BM bx is essentially undiagnostic thus far. Stools have been negative for OB, but brief intermiitent blood loss of some type cannot be entirely ruled out. Renal insufficiency may also play a part. PLAN: for endoscopy; but will now need to transfuse 1 U PC > Htn with ASHD and renal insuff--clinically stable; BP and oxygenation good on RA; cont current meds, may need to stop Lasix pre-endoscopy > COPD--stable > DM--glucose in double digits thus far; Metformin has been held > Group Home use of a/c--has been on Warafrin as OP; for ischemic stroke prevention; now on Lovenox (high dose) > Basal cell skin ca--on the LLE; will eventually need to have it fully excised. ```````````````````````````````````````````````` END dr Caputo Problem List - Problems (1) Anemia Code(s): D64.9 - ANEMIA, UNSPECIFIED Qualifiers: Anemia type: unspecified type Qualified Code(s): D64.9 - Anemia, unsp ecified (2) Acute on chronic systolic congestive heart failure Code(s): I50.23 - ACUTE ON CHRONIC SYSTOLIC (CONGESTIVE) HEART FAILURE (3) COPD (chronic obstructive pulmonary disease) Code(s): J44.9 - CHRONIC OBSTRUCTIVE PULMONARY DISEASE, UNSPECIFIED Qualifiers: COPD type: unspecified COPD Qualified Code(s): J44.9 - Chronic obstructive pulmonary disease, unspecified (4) Diabetes mellitus type 2, noninsulin dependent Code(s): E11.9 - TYPE 2 DIABETES MELLITUS WITHOUT COMPLICATIONS (5) Chronic kidney disease Code(s): N18.9 - CHRONIC KIDNEY DISEASE, UNSPECIFIED Qualifiers: Chronic kidney disease stage: stage 3 (moderate) Qualified Code(s): N18.3 - Chronic kidney disease, stage 3 (moderate) (6) Depression Code(s): F32.9 - MAJOR DEPRESSIVE DISORDER, SINGLE EPISODE, UNSPECIFIED Qualifiers: Depression Type: major depressive disorder Major depression episode severity: unspecified (7) Hypoalbuminemia Code(s): E88.09 - OTH DISORDERS OF PLASMA-PROTEIN METABOLISM, NEC (8) Breast cancer, left Code(s): C50.912 - MALIGNANT NEOPLASM OF UNSPECIFIED SITE OF LEFT FEMALE BREAST Qualifiers: Breast location: central portion of breast Estrogen receptor status: unspecified Patient sex: female Qualified Code(s): C50.112 - Malignant neoplasm of central portion of left female breast (10) Anticoagulant long-term use 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
[2019-10-23] MEDS: MELATONIN 5 MG TABLETS PO PRN (21:03)
[2019-10-23] MEDS ORDERED: traMADol HCL 50 MG TABLET PO ONE (23:00)
[2019-10-24 08:53] LABS: HEMATOCRIT 26.4 % (32.4-45.2); HEMOGLOBIN 8.7 GM/dL (10.7-15.3); MCH 30.9 pg (25.7-33.7); MCHC 33.1 g/dl (32.0-36.0); MEAN CELL VOLUME 93.2 fl (80-96); MEAN PLT VOLUME 8.1 fl (7.5-11.1); PLATELET COUNT 267 K/MM3 (134-434); RBC 2.83 M/mm3 (3.60-5.2); RDW 16.9 % (11.6-15.6); WHITE BLOOD COUNT 7.5 K/mm3 (4.0-10.0)
[2019-10-24 09:21] LABS: BLOOD UREA NITROGEN 41.8 mg/dL (7-18); CALCIUM 8.7 mg/dL (8.5-10.1); CREATININE 1.7 mg/dL (0.55-1.3); POTASSIUM 4.4 mmol/L (3.5-5.1)
[2019-10-24] MEDS: SACUBITRIL/VALSARTAN 24 MG-26 MG TABLET PO SCH ×2 (11:36→23:50)
[2019-10-24] MEDS: buPROPion HCL 75 MG TABLET PO SCH ×2 (11:36→22:44)
[2019-10-24] MEDS: ANASTROZOLE 1 MG TABLET PO SCH (11:37)
[2019-10-24] MEDS: CARVEDILOL 6.25 MG TABLET (FP) PO SCH ×2 (11:43→22:44)
[2019-10-24] MEDS: ENOXAPARIN NA (PORCINE) 80 MG/0.8 ML DISP.SYRIN SQ SCH (11:43)
[2019-10-24] MEDS: FUROSEMIDE 40 MG TABLET (FP) PO SCH (11:49)
[2019-10-24] MEDS ORDERED: BISACODYL 5 MG TABLET.DR (FP) PO ONE (15:00)
[2019-10-24] MEDS ORDERED: PEG 3350/NA SULF BICARB CL/KCL 4000 ML SOLN.RECON PO ONE (16:00)
--- NOTE | 2019-10-24 16:08 | EKG ---
Test Reason : Blood Pressure : / mmHG Vent. Rate : 082 BPM Atrial Rate : 082 BPM P-R Int : 172 ms QRS Dur : 110 ms QT Int : 416 ms P-R-T Axes : 079 064 112 degrees QTc Int : 486 ms NORMAL SINUS RHYTHM INCOMPLETE LEFT BUNDLE BRANCH BLOCK LEFT VENTRICULAR HYPERTROPHY WITH REPOLARIZATION ABNORMALITY ABNORMAL ECG WHEN COMPARED WITH ECG OF 21-OCT-2019 23:46, T WAVE VARIATION Confirmed by JAROCHO KANG MD ([id number]) on 10/24/2019 4:08:09 PM Referred By: Confirmed By:JAROCHO KANG MD
--- NOTE | 2019-10-24 19:52 | PN ---
Progress Note (short form) - Note Progress Note: Active Medications Anastrozole (Arimidex -) 1 mg PO DAILY [facility] Last Admin: 10/24/19 11:37 Dose: 1 mg Documented by: Bupropion HCl (Wellbutrin -) 75 mg PO BID@0800,1999 [facility] Last Admin: 10/24/19 11:36 Dose: 75 mg Documented by: Carvedilol (Coreg -) 6.25 mg PO BID [facility] Last Admin: 10/24/19 11:43 Dose: 6.25 mg Documented by: Enoxaparin Sodium (Lovenox -) 80 mg SQ BID [facility] Last Admin: 10/24/19 11:43 Dose: 80 mg Documented by: Melatonin (Melatonin) 5 mg PO HS PRN PRN Reason: INSOMNIA Last Admin: 10/23/19 21:03 Dose: 5 mg Documented by: Sacubitril/Valsartan (Entresto 24 Mg-26 Mg Tablet) 1 tab PO BID [facility] Last Admin: 10/24/19 11:36 Dose: 1 tab Documented by: Laboratory Results - last 24 hr 10/22/19 10/24/19 10/24/19 08:15 05:47 07:36 WBC RBC Hgb Hct MCV MCH MCHC RDW Plt Count MPV Sodium 140 Potassium 4.4 Chloride 108 H Carbon Dioxide 24 Anion Gap 7 L BUN 41.8 H Creatinine 1.7 H Est GFR (CKD-EPI)AfAm 34.80 Est GFR (CKD-EPI)NonAf 30.03 POC Glucometer 100 Random Glucose 92 Calcium 8.7 Iron 43 L TIBC 253 Iron Saturation 16 L Unsaturated IBC 210 Ferritin 235.1 Vitamin B12 315 Thyroxine (T4) 8.7 Stool Occult Blood COVID-19 ([facility]) Not detected 10/24/19 10/24/19 07:36 12:30 WBC 7.5 RBC 2.83 L Hgb 8.7 L Hct 26.4 L D MCV 93.2 MCH 30.9 MCHC 33.1 RDW 16.9 H Plt Count 267 MPV 8.1 Sodium Potassium Chloride Carbon Dioxide Anion Gap BUN Creatinine Est GFR (CKD-EPI)AfAm Est GFR (CKD-EPI)NonAf POC Glucometer Random Glucose Calcium Iron TIBC Iron Saturation Unsaturated IBC Ferritin Vitamin B12 Thyroxine (T4) Stool Occult Blood Negative COVID-19 ([facility]) Vital Signs Temperature 98.8 F 10/24/19 10:00 Pulse Rate 100 H 10/24/19 10:00 Respiratory Rate 20 10/24/19 10:00 Blood Pressure 162/81 10/24/19 10:00 O2 Sat by Pulse Oximetry (%) 94 L 10/24/19 10:00 CC; no specific complaints this AM; but developed n-v while drinking go-lytely prep in PM ````````````````````````````````````` skin--IV site w/o redness eyes--Rt globe lesion neck--supple lungs--distant, unlabored heart--RR abd--obese, BS+, NT, ND ext--dressing LLE; no edema neuro--alert, lucid, coherent; no focal deficits ```````````````````````````````````````` Summ > anemia--improved post transfusion; stools for OB repeatedly negative; unsure if she can undergo endoscopy as planned. > Htn with ASHD and renal insuff--clinically stable; BP and oxygenation good on RA; cont current meds, may need to stop Lasix pre-endoscopy > COPD--stable > DM--glucose okay thus far; Metformin has been held > [facility] Living use of a/c--has been on Warafrin as OP; for ischemic stroke prevention. > Basal cell skin ca--on the LLE; will eventually need to have it fully excised. ```````````````````````````````````````````````` END dr Caputo Problem List - Problems (1) Anemia Code(s): D64.9 - ANEMIA, UNSPECIFIED Qualifiers: Anemia type: unspecified type Qualified Code(s): D64.9 - Anemia, unspecified (2) Acute on chronic systolic congestive heart failure Code(s): I50.23 - ACUTE ON CHRONIC SYSTOLIC (CONGESTIVE) HEART FAILURE (3) COPD (chronic obstructive pulmonary disease) Code(s): J44.9 - CHRONIC OBSTRUCTIVE PULMONARY DISEASE, UNSPECIFIED Qualifiers: COPD type: unspecified COPD Qualified Code(s): J44.9 - Chronic obstructive pulmonary disease, unspecified (4) Diabetes mellitus type 2, noninsulin dependent Code(s): E11.9 - TYPE 2 DIABETES MELLITUS WITHOUT COMPLICATIONS (5) Chronic kidney disease Code(s): N18.9 - CHRONIC KIDNEY DISEASE, UNSPECIFIED Qualifiers: Chronic kidney disease stage: stage 3 (moderate) Qualified Code(s): N18.3 - Chronic kidney disease, stage 3 (moderate) (6) Depression Code(s): F32.9 - MAJOR DEPRESSIVE DISORDER, SINGLE EPISODE, UNSPECIFIED Qualifiers: Depression Type: major depressive disorder Major depression episode severity: unspecified (7) Hypoalbuminemia Code(s): E88.09 - OTH DISORDERS OF PLASMA-PROTEIN METABOLISM, NEC (8) Breast cancer, left Code(s): C50.912 - MALIGNANT NEOPLASM OF UNSPECIFIED SITE OF LEFT FEMALE BREAST Qualifiers: Breast location: central portion of breast Estrogen receptor status: unspecified Patient sex: female Qualified Code(s): C50.112 - Malignant neoplasm of central portion of left female breast (10) Anticoagulant long-term use Code(s): Z79.01 - LONGTERM (CURRENT) USE OF 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 (11) Visual impairment Code(s): H54.7 - UNSPECIFIED VISUAL LOSS (12) Elderly person living alone Code(s): Z60.2 - PROBLEMS RELATED TO LIVING ALONE
[2019-10-24] MEDS ORDERED: PT OWN MED DRAWER 7, Y5N ONE (21:03)
--- NOTE | 2019-10-24 21:57 | EKG ---
Test Reason : Blood Pressure : / mmHG Vent. Rate : 100 BPM Atrial Rate : 100 BPM P-R Int : 172 ms QRS Dur : 118 ms QT Int : 396 ms P-R-T Axes : 072 070 068 degrees QTc Int : 510 ms NORMAL SINUS RHYTHM INCOMPLETE LEFT BUNDLE BRANCH BLOCK PROLONGED QT ABNORMAL ECG WHEN COMPARED WITH ECG OF 21-OCT-2019 18:56, VENT. RATE HAS INCREASED Confirmed by JAROCHO KANG MD ([id number]) on 10/24/2019 9:57:08 PM Referred By: Confirmed By:JAROCHO KANG MD
--- NOTE | 2019-10-24 21:59 | EKG ---
Test Reason : Blood Pressure : / mmHG Vent. Rate : 083 BPM Atrial Rate : 083 BPM P-R Int : 182 ms QRS Dur : 112 ms QT Int : 418 ms P-R-T Axes : 089 070 068 degrees QTc Int : 491 ms NORMAL SINUS RHYTHM NONSPECIFIC ST ABNORMALITY ABNORMAL ECG WHEN COMPARED WITH ECG OF 29-SEP-2019 09:41, NO SIGNIFICANT CHANGE WAS FOUND Confirmed by JAROCHO KANG MD ([id number]) on 10/24/2019 9:59:16 PM Referred By: Confirmed By:JAROCHO KANG MD
--- NOTE | 2019-10-24 23:40 | PN.HO ---
Progress Note (short form) - Note Progress Note: Will replete venofer 200mg QOD x 5days as iron saturation is 16%
[2019-10-24] MEDS: MELATONIN 5 MG TABLETS PO PRN (23:49)
[2019-10-25 07:34] LABS: HEMATOCRIT 23.9 % (32.4-45.2); MCH 31.1 pg (25.7-33.7); MCHC 33.4 g/dl (32.0-36.0); PLATELET COUNT 220 K/MM3 (134-434); RBC 2.57 M/mm3 (3.60-5.2); WHITE BLOOD COUNT 4.8 K/mm3 (4.0-10.0)
[2019-10-25 07:58] LABS: CALCIUM 8.3 mg/dL (8.5-10.1); CREATININE 1.4 mg/dL (0.55-1.3); POTASSIUM 3.9 mmol/L (3.5-5.1)
[2019-10-25] MEDS: CARVEDILOL 6.25 MG TABLET (FP) PO SCH ×2 (09:44→22:24)
[2019-10-25] MEDS ORDERED: MIDAZOLAM HCL 2 MG/2 ML SINGLE DOSE VIAL ONE (10:02)
--- NOTE | 2019-10-25 10:25 | PN ---
Progress Note (short form) - Note Progress Note: EGD complete. report left in procedural section of the physical chart and will be scanned into [employer]
[2019-10-25] MEDS: ANASTROZOLE 1 MG TABLET PO SCH (12:01)
[2019-10-25] MEDS: PANTOPRAZOLE 40 MG TABLET PO SCH (12:01)
[2019-10-25] MEDS: buPROPion HCL 75 MG TABLET PO SCH ×2 (12:02→21:25)
[2019-10-25] MEDS: SACUBITRIL/VALSARTAN 24 MG-26 MG TABLET PO SCH ×2 (12:02→22:24)
[2019-10-25] MEDS ORDERED: BISACODYL 5 MG TABLET.DR (FP) PO ONE (15:00)
[2019-10-25] MEDS ORDERED: POLYETHYLENE GLYCOL 3350 255 GM BTL PO ONE (16:00)
--- NOTE | 2019-10-25 18:22 | PN ---
Progress Note (short form) - Note Progress Note: Active Medications Anastrozole (Arimidex -) 1 mg PO DAILY [facility] Last Admin: 10/25/19 12:01 Dose: 1 mg Documented by: Bupropion HCl (Wellbutrin -) 75 mg PO BID@0800,1999 [facility] Last Admin: 10/25/19 12:02 Dose: 75 mg Documented by: Carvedilol (Coreg -) 6.25 mg PO BID [facility] Last Admin: 10/25/19 09:44 Dose: 6.25 mg Documented by: Enoxaparin Sodium (Lovenox -) 80 mg SQ BID [facility] Last Admin: 10/24/19 11:43 Dose: 80 mg Documented by: Melatonin (Melatonin) 5 mg PO HS PRN PRN Reason: INSOMNIA Last Admin: 10/24/19 23:49 Dose: 5 mg Documented by: Pantoprazole Sodium (Protonix -) 40 mg PO DAILY [facility] Last Admin: 10/25/19 12:01 Dose: 40 mg Documented by: Sacubitril/Valsartan (Entresto 24 Mg-26 Mg Tablet) 1 tab PO BID [facility] Last Admin: 10/25/19 12:02 Dose: 1 tab Documented by: Laboratory Results - last 24 hr 10/25/19 10/25/19 10/25/19 06:37 06:37 07:04 WBC 4.8 RBC 2.57 L Hgb 8.0 L Hct 23.9 L MCV 93.0 MCH 31.1 MCHC 33.4 RDW 16.0 H Plt Count 220 MPV 8.0 Sodium 142 Potassium 3.9 Chloride 107 Carbon Dioxide 26 Anion Gap 10 BUN 34.0 H Creatinine 1.4 H Est GFR (CKD-EPI)AfAm 44.01 Est GFR (CKD-EPI)NonAf 37.97 POC Glucometer 85 Random Glucose 89 Calcium 8.3 L Vital Signs Temperature 99.1 F 10/25/19 14:53 Pulse Rate 70 10/25/19 14:53 Respiratory Rate 18 10/25/19 14:53 Blood Pressure 150/59 L 10/25/19 14:53 O2 Sat by Pulse Oximetry (%) 100 10/25/19 14:53 CC; no specific complaints this AM ````````````````````````````````````` skin--IV site w/o redness eyes--Rt globe lesion neck--supple lungs--distant, unlabored heart--RR abd--obese, BS+, NT, ND ext--no edema neuro--alert, lucid, coherent; no focal deficits ```````````````````````````````````````` Summ > anemia--Hgb down to 8.o today; no report of GI bleed or any GI sx. Heme note read; and has had EGD this Am (result pending). Plan: daily CBC. > Htn with ASHD and renal insuff--clinically stable. > COPD--stable > DM--glucose okay thus far; Metformin has been held > Group Home use of a/c--has been on Warafrin as OP; for ischemic stroke prevention. > Basal cell skin ca--on the LLE; will eventually need to have it fully excised. ```````````````````````````````````````````````` Dr Caputo END Problem List - Problems (1) Anemia Code(s): D64.9 - ANEMIA, UNSPECIFIED Qualifiers: Anemia type: unspecified type Qualified Code(s): D64.9 - Anemia, unspecified (2) Acute on chronic systolic congestive heart failure Code(s): I50.23 - ACUTE ON CHRONIC SYSTOLIC (CONGESTIVE) HEART FAILURE (3) COPD (chronic obstructive pulmonary disease) Code(s): J44.9 - CHRONIC OBSTRUCTIVE PULMONARY DISEASE, UNSPECIFIED Qualifiers: COPD type: unspecified COPD Qualified Code(s): J44.9 - Chronic obstructive pulmonary disease, unspecified (4) Diabetes mellitus type 2, noninsulin dependent Code(s): E11.9 - TYPE 2 DIABETES MELLITUS WITHOUT COMPLICATIONS (5) Chronic kidney disease Code(s): N18.9 - CHRONIC KIDNEY DISEASE, UNSPECIFIED Qualifiers: Chronic kidney disease stage: stage 3 (moderate) Qualified Code(s): N18.3 - Chronic kidney disease, stage 3 (moderate) (6) Depression Code(s): F32.9 - MAJOR DEPRESSIVE DISORDER, SINGLE EPISODE, UNSPECIFIED Qualifiers: Depression Type: major depressive disorder Major depression episode severity: unspecified (7) Hypoalbuminemia Code(s): E88.09 - OTH DISORDERS OF PLASMA-PROTEIN METABOLISM, NEC (8) Breast cancer, left Code(s): C50.912 - MALIGNANT NEOPLASM OF UNSPECIFIED SITE OF LEFT FEMALE BREAST Qualifiers: Breast location: central portion of breast Estrogen receptor status: unspecified Patient sex: female Qualified Code(s): C50.112 - Malignant neoplasm of central portion of left female breast (10) Anticoagulant long-term use Code(s): Z79.01 - SENIOR LIVING (CURRENT) USE OF 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 (11) Visual impairment Code(s): H54.7 - UNSPECIFIED VISUAL LOSS (12) Elderly person living alone Code(s): Z60.2 - PROBLEMS RELATED TO LIVING ALONE
[2019-10-25] MEDS ORDERED: PT OWN MED DRAWER 7, Y5N ONE (22:02)
[2019-10-25] MEDS: MELATONIN 5 MG TABLETS PO PRN (22:25)
[2019-10-26] MEDS ORDERED: traMADol HCL 50 MG TABLET PO ONE (03:45)
[2019-10-26 08:03] LABS: BLOOD UREA NITROGEN 29.6 mg/dL (7-18); CREATININE 1.4 mg/dL (0.55-1.3); POTASSIUM 3.5 mmol/L (3.5-5.1)
[2019-10-26 08:08] LABS: BASO % 0.3 % (0-2.0); EOS % 0.4 % (0-4.5); HEMATOCRIT 25.9 % (32.4-45.2); HEMOGLOBIN 8.7 GM/dL (10.7-15.3); LYMPH % 9.1 % (8-40); MCH 31.1 pg (25.7-33.7); MCHC 33.5 g/dl (32.0-36.0); MEAN CELL VOLUME 92.8 fl (80-96); MEAN PLT VOLUME 8.2 fl (7.5-11.1); MONO % 6.7 % (3.8-10.2); NEUT % 83.5 % (42.8-82.8); PLATELET COUNT 224 K/MM3 (134-434); RBC 2.79 M/mm3 (3.60-5.2); RDW 15.9 % (11.6-15.6); WHITE BLOOD COUNT 5.4 K/mm3 (4.0-10.0)
[2019-10-26] MEDS ORDERED: PT OWN MED DRAWER 7, Y5N ONE ×5 (09:17→20:52)
[2019-10-26] MEDS: CARVEDILOL 6.25 MG TABLET (FP) PO SCH ×2 (10:22→21:13)
[2019-10-26] MEDS: PANTOPRAZOLE 40 MG TABLET PO SCH (10:52)
[2019-10-26] MEDS: ENOXAPARIN NA (PORCINE) 80 MG/0.8 ML DISP.SYRIN SQ SCH ×2 (10:54→21:13)
[2019-10-26] MEDS: IRON SUCROSE INJECTION 200 MG in SODIUM CHLORIDE 90 ML IVPB SCH (12:06)
[2019-10-26] MEDS: SACUBITRIL/VALSARTAN 24 MG-26 MG TABLET PO SCH ×2 (12:08→21:13)
[2019-10-26] MEDS: ANASTROZOLE 1 MG TABLET PO SCH (12:45)
--- NOTE | 2019-10-26 14:35 | PN ---
Progress Note (short form) - Note Progress Note: Active Medications Anastrozole (Arimidex -) 1 mg PO DAILY [facility] Last Admin: 10/25/19 12:01 Dose: 1 mg Documented by: Bupropion HCl (Wellbutrin -) 75 mg PO BID@0800,1999 [facility] Last Admin: 10/25/19 21:25 Dose: 75 mg Documented by: Carvedilol (Coreg -) 6.25 mg PO BID [facility] Last Admin: 10/26/19 10:22 Dose: 6.25 mg Documented by: Enoxaparin Sodium (Lovenox -) 80 mg SQ BID [facility] Last Admin: 10/24/19 11:43 Dose: 80 mg Documented by: Iron Sucrose 200 mg/ Sodium (Chloride) 100 mls @ 100 mls/hr IVPB Q48H [facility] Stop: 10/31/19 10:29 Last Admin: 10/26/19 12:06 Dose: 100 mls/hr Documented by: Melatonin (Melatonin) 5 mg PO HS PRN PRN Reason: INSOMNIA Last Admin: 10/25/19 22:25 Dose: 5 mg Documented by: Pantoprazole Sodium (Protonix -) 40 mg PO DAILY [facility] Last Admin: 10/25/19 12:01 Dose: 40 mg Documented by: Sacubitril/Valsartan (Entresto 24 Mg-26 Mg Tablet) 1 tab PO BID [facility] Last Admin: 10/26/19 12:08 Dose: 1 tab Documented by: Laboratory Results - last 24 hr 10/24/19 10/26/19 10/26/19 07:36 05:55 06:40 WBC RBC Hgb Hct 25.4 L MCV MCH MCHC RDW Plt Count MPV Absolute Neuts (auto) Neutrophils % Lymphocytes % Monocytes % Eosinophils % Basophils % Nucleated RBC % Sodium 139 Potassium 3.5 Chloride 105 Carbon Dioxide 23 Anion Gap 11 BUN 29.6 H Creatinine 1.4 H Est GFR (CKD-EPI)AfAm 44.01 Est GFR (CKD-EPI)NonAf 37.97 POC Glucometer 113 Random Glucose 112 H Calcium 9.0 Folate 1350 Folate Hemolysate 343.0 10/26/19 06:40 WBC 5.4 RBC 2.79 L Hgb 8.7 L Hct 25.9 L MCV 92.8 MCH 31.1 MCHC 33.5 RDW 15.9 H Plt Count 224 MPV 8.2 Absolute Neuts (auto) 4.5 Neutrophils % 83.5 H Lymphocytes % 9.1 D Monocytes % 6.7 Eosinophils % 0.4 D Basophils % 0.3 Nucleated RBC % 0 Sodium Potassium Chloride Carbon Dioxide Anion Gap BUN Creatinine Est GFR (CKD-EPI)AfAm Est GFR (CKD-EPI)NonAf POC Glucometer Random Glucose Calcium Folate Folate Hemolysate Vital Signs Temperature 97.9 F 10/26/19 10:00 Pulse Rate 83 10/26/19 10:00 Respiratory Rate 19 10/26/19 10:00 Blood Pressure 154/61 10/26/19 10:00 O2 Sat by Pulse Oximetry (%) 100 10/26/19 10:00 CC; loose stools (on prep) ````````````````````````````````````` skin--IV site w/o redness eyes--Rt globe lesion neck--supple lungs--distant, unlabored heart--RR abd--obese, BS+, NT, ND ext--no edema neuro--alert, lucid, coherent; no focal deficits ```````````````````````````````````````` Summ > anemia--Hgb back at 8.7; no report of GI bleed. Heme note read; for colonoscopy today. Plan: daily CBC. > Htn with ASHD and renal insuff--clinically stable; will resume Lasix in AM. > COPD--stable > DM--glucose okay thus far; Metformin has been held > Nursing Home use of a/c--has been on Warafrin as OP; for ischemic stroke prevention; will resume a/c post endo. > Basal cell skin ca--on the LLE; will eventually need to have it fully excised. ```````````````````````````````````````````````` Dr Caputo END Problem List - Problems (1) Anemia Code(s): D64.9 - ANEMIA, UNSPECIFIED Qualifiers: Anemia type: unspecified type Qualified Code(s): D64.9 - Anemia, unspecified (2) Acute on chronic systolic congestive heart failure Code(s): I50.23 - ACUTE ON CHRONIC SYSTOLIC (CONGESTIVE) HEART FAILURE (3) COPD (chronic obstructive pulmonary disease) Code(s): J44.9 - CHRONIC OBSTRUCTIVE PULMONARY DISEASE, UNSPECIFIED Qualifiers: COPD type: unspecified COPD Qualified Code(s): J44.9 - Chronic obstructive pulmonary disease, unspecified (4) Diabetes mellitus type 2, noninsulin dependent Code(s): E11.9 - TYPE 2 DIABETES MELLITUS WITHOUT COMPLICATIONS (5) Chronic kidney disease Code(s): N18.9 - CHRONIC KIDNEY DISEASE, UNSPECIFIED Qualifiers: Chronic kidney disease stage: stage 3 (moderate) Qualified Code(s): N18.3 - Chronic kidney disease, stage 3 (moderate) (6) Depression Code(s): F32.9 - MAJOR DEPRESSIVE DISORDER, SINGLE EPISODE, UNSPECIFIED Qualifiers: Depression Type: major depressive disorder Major depression episode severity: unspecified (7) Hypoalbuminemia Code(s): E88.09 - OTH DISORDERS OF PLASMA-PROTEIN METABOLISM, NEC (8) Breast cancer, left Code(s): C50.912 - MALIGNANT NEOPLASM OF UNSPECIFIED SITE OF LEFT FEMALE BREAST Qualifiers: Breast location: central portion of breast Estrogen receptor status: unspecified Patient sex: female Qualified Code(s): C50.112 - Malignant neoplasm of central portion of left female breast (10) Anticoagulant long-term use Code(s): Z79.01 - OPTICAL SYSTEMS ENGINEER (CURRENT) USE OF 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 (11) Visual impairment Code(s): H54.7 - UNSPECIFIED VISUAL LOSS (12) Elderly person living alone Code(s): Z60.2 - PROBLEMS RELATED TO LIVING ALONE
--- NOTE | 2019-10-26 16:00 | PN ---
Progress Note (short form) - Note Progress Note: BRIEF GI PROCEDURE NOTE COLONOSCOPY POST SURGICAL ANATOMY HEMORRHOIDS SCATTERED DIVERTICULOSIS REC: ADVANCE DIET SMALL BOWEL CAPSULE STUDY TO FURTHER EVALUATE THE ANEMIA
[2019-10-26] MEDS: buPROPion HCL 75 MG TABLET PO SCH ×2 (16:51→21:13)
[2019-10-26] MEDS: traMADol HCL 50 MG TABLET PO PRN (17:31)
--- NOTE | 2019-10-26 17:39 | PATH ---
Surgical Pathology Report Patient Name: TERRY SONG Med. Rec. #: [id number] /Age/Gender: 1950 (Age: 68) / F Account: [id number] Location: [facility] MED/SURG Taken: 10/25/2019 Received: 10/25/2019 Reported: 10/26/2019 Physicians: Tripp Molina M.D. Specimen(s) Received A: DUODENUM B: ANTRAL EROSION C: ANGULARIS & BODY R/O H-PYLORIC D: GASTRIC POLYP Clinical History Anemia Postoperative diagnosis: Gastritis, duodenitis, gastric polyp, hiatal hernia Final Diagnosis A. DUODENAL, BIOPSY: DUODENAL MUCOSA WITH INCREASED CHRONIC INFLAMMATORY INFILTRATE, MARCI'S GLAND HYPERPLASIA, FOCAL GASTRIC METAPLASIA, CONSISTENT WITH CHRONIC DUODENITIS. B. ANTRUM EROSION, BIOPSY: GASTRIC MUCOSA WITH CHRONIC GASTRITIS AND REACTIVE GASTROPATHY. IMMUNOSTAIN FOR H. PYLORI IS NEGATIVE. NEGATIVE FOR INTESTINAL METAPLASIA. C. ANGULARIS AND BODY, BIOPSY: GASTRIC MUCOSA WITH CHRONIC GASTRITIS. IMMUNOSTAIN FOR H. PYLORI IS NEGATIVE. NEGATIVE FOR INTESTINAL METAPLASIA. D. GASTRIC POLYP, BIOPSY: FUNDIC GLAND POLYP. IMMUNOSTAIN FOR H. PYLORI IS NEGATIVE. Electronically Signed Zaina Hilton M.D. Gross Description A. Received in formalin, labeled "biopsy duodenum" are 2 maloney, irregular portions of soft tissue averaging 0.3 cm. in greatest dimension. The specimens are submitted in toto in one cassette. B. Received in formalin, labeled "biopsy antral erosion" is a maloney, irregular portion of soft tissue measuring 0.3 cm. in greatest dimension. The specimen is submitted in toto in one cassette. C. Received in formalin, labeled "biopsy angularis and body" are 4 maloney, irregular portions of soft tissue ranging from 0.2-0.3 cm. in greatest dimension. The specimens are submitted in toto in one cassette. D. Received in formalin, labeled "biopsy gastric polyp" are 2 maloney, irregular portions of soft tissue measuring 0.2 and 0.3 cm. in greatest dimension. The specimens are submitted in toto in one cassette. /10/25/2019 saudi/10/25/2019
[2019-10-26] MEDS ORDERED: WARFARIN NA 10 MG TABLET PO ONE (18:00)
[2019-10-26 20:08] LABS: FREE KAPPA,SERUM 68.1 mg/L (3.3-19.4)
[2019-10-26] MEDS: MELATONIN 5 MG TABLETS PO PRN (21:13)
[2019-10-27] MEDS: traMADol HCL 50 MG TABLET PO PRN (05:50)
[2019-10-27 07:08] LABS: HEMATOCRIT 25.5 % (32.4-45.2); HEMOGLOBIN 8.6 GM/dL (10.7-15.3); MCH 31.1 pg (25.7-33.7); MCHC 33.5 g/dl (32.0-36.0); MEAN CELL VOLUME 92.7 fl (80-96); MEAN PLT VOLUME 7.9 fl (7.5-11.1); PLATELET COUNT 195 K/MM3 (134-434); RBC 2.75 M/mm3 (3.60-5.2); RDW 15.8 % (11.6-15.6)
[2019-10-27 07:11] LABS: INR 1.44 (0.83-1.09)
[2019-10-27 08:25] LABS: BLOOD UREA NITROGEN 24.4 mg/dL (7-18); CALCIUM 8.6 mg/dL (8.5-10.1); CREATININE 1.4 mg/dL (0.55-1.3); POTASSIUM 3.5 mmol/L (3.5-5.1)
--- NOTE | 2019-10-27 08:31 | PN ---
Progress Note (short form) - Note Progress Note: EGD path: h. pylori negative, duodenal biopsies not c/w celiac. Needs hematology evaluation. Can have capsule endoscopy as outpatient given component of iron deficiency on studies, however I do not think iron deficiency completely explains her anemia.
[2019-10-27] MEDS: SACUBITRIL/VALSARTAN 24 MG-26 MG TABLET PO SCH ×2 (09:58→21:00)
[2019-10-27] MEDS: CARVEDILOL 6.25 MG TABLET (FP) PO SCH ×2 (09:58→21:00)
[2019-10-27] MEDS: PANTOPRAZOLE 40 MG TABLET PO SCH (09:58)
[2019-10-27] MEDS: buPROPion HCL 75 MG TABLET PO SCH ×2 (09:58→20:48)
[2019-10-27] MEDS: ANASTROZOLE 1 MG TABLET PO SCH (09:59)
[2019-10-27] MEDS: ENOXAPARIN NA (PORCINE) 80 MG/0.8 ML DISP.SYRIN SQ SCH ×2 (09:59→21:00)
--- NOTE | 2019-10-27 15:50 | PN ---
Progress Note (short form) - Note Progress Note: Active Medications Anastrozole (Arimidex -) 1 mg PO DAILY [facility] Last Admin: 10/27/19 09:59 Dose: 1 mg Documented by: Bupropion HCl (Wellbutrin -) 75 mg PO BID@0800,1999 [facility] Last Admin: 10/27/19 09:58 Dose: 75 mg Documented by: Carvedilol (Coreg -) 6.25 mg PO BID [facility] Last Admin: 10/27/19 09:58 Dose: 6.25 mg Documented by: Enoxaparin Sodium (Lovenox -) 80 mg SQ BID [facility] Last Admin: 10/27/19 09:59 Dose: 80 mg Documented by: Iron Sucrose 200 mg/ Sodium (Chloride) 100 mls @ 100 mls/hr IVPB Q48H [facility] Stop: 10/31/19 10:29 Last Admin: 10/26/19 12:06 Dose: 100 mls/hr Documented by: Melatonin (Melatonin) 5 mg PO HS PRN PRN Reason: INSOMNIA Last Admin: 10/26/19 21:13 Dose: 5 mg Documented by: Pantoprazole Sodium (Protonix -) 40 mg PO DAILY [facility] Last Admin: 10/27/19 09:58 Dose: 40 mg Documented by: Sacubitril/Valsartan (Entresto 24 Mg-26 Mg Tablet) 1 tab PO BID [facility] Last Admin: 10/27/19 09:58 Dose: 1 tab Documented by: Tramadol HCl (Ultram -) 50 mg PO Q8H PRN PRN Reason: PAIN LEVEL 4 - 6 Last Admin: 10/27/19 05:50 Dose: 50 mg Documented by: Laboratory Results - last 24 hr 10/21/19 10/24/19 10/26/19 20:30 07:36 16:58 WBC RBC Hgb Hct MCV MCH MCHC RDW Plt Count MPV PT with INR INR Sodium Potassium Chloride Carbon Dioxide Anion Gap BUN Creatinine Est GFR (CKD-EPI)AfAm Est GFR (CKD-EPI)NonAf POC Glucometer 115 Random Glucose Calcium Magnesium Free [place] LC, Quant 68.1 H Free Lambda LC, Quant 37.3 H Free [place]/Lambda Ratio 1.83 H Blood Type A POSITIVE Antibody Screen Negative Crossmatch See Detail 10/27/19 10/27/19 10/27/19 05:53 06:25 06:25 WBC 4.0 RBC 2.75 L Hgb 8.6 L Hct 25.5 L MCV 92.7 MCH 31.1 MCHC 33.5 RDW 15.8 H Plt Count 195 MPV 7.9 PT with INR INR Sodium 140 Potassium 3.5 Chloride 106 Carbon Dioxide 25 Anion Gap 9 BUN 24.4 H Creatinine 1.4 H Est GFR (CKD-EPI)AfAm 44.01 Est GFR (CKD-EPI)NonAf 37.97 POC Glucometer 88 Random Glucose 92 Calcium 8.6 Magnesium 2.0 Free [place] LC, Quant Free Lambda LC, Quant Free [place]/Lambda Ratio Blood Type Antibody Screen Crossmatch 10/27/19 10/27/19 06:25 11:19 WBC RBC Hgb Hct MCV MCH MCHC RDW Plt Count MPV PT with INR 17.00 H INR 1.44 H Sodium Potassium Chloride Carbon Dioxide Anion Gap BUN Creatinine Est GFR (CKD-EPI)AfAm Est GFR (CKD-EPI)NonAf POC Glucometer 112 Random Glucose Calcium Magnesium Free [place] LC, Quant Free Lambda LC, Quant Free [place]/Lambda Ratio Blood Type Antibody Screen Crossmatch CC: feels gassy & bloated post endo ``````````````````````````````````` skin--NL Color heart--RR lungs--unlabored abd--soft, BS+ ext--no edema neuro--alert coherent to baseline; able to amb with walker `````````````````````````````````` Summ > anemia--no gross abnormalities on upper & Lower endoscopy that indicate definite source; jc ann suggested as OP. PLAN: cont cbc check; will get onc F/u > Htn--with stable ASHD; cont current meds > DM--BS in range w/o and meds > Senior Care use of a/c--for stroke prevention; to bridge over to warfarin with Lovenox > Light chain dz?--will get Heme to f/u before d/c ````````````````````````````````````````````` Dr Commentucci Problem List - Problems (1) Anemia Code(s): D64.9 - ANEMIA, UNSPECIFIED Qualifiers: Anemia type: unspecified type Qualified Code(s): D64.9 - Anemia, unspecified (2) Acute on chronic systolic congestive heart failure Code(s): I50.23 - ACUTE ON CHRONIC SYSTOLIC (CONGESTIVE) HEART FAILURE (3) COPD (chronic obstructive pulmonary disease) Code(s): J44.9 - CHRONIC OBSTRUCTIVE PULMONARY DISEASE, UNSPECIFIED Qualifiers: COPD type: unspecified COPD Qualified Code(s): J44.9 - Chronic obstructive pulmonary disease, unspecified (4) Diabetes mellitus type 2, noninsulin dependent Code(s): E11.9 - TYPE 2 DIABETES MELLITUS WITHOUT COMPLICATIONS (5) Chronic kidney disease Code(s): N18.9 - CHRONIC KIDNEY DISEASE, UNSPECIFIED Qualifiers: Chronic kidney disease stage: stage 3 (moderate) Qualified Code(s): N18.3 - Chronic kidney disease, stage 3 (moderate) (6) Depression Code(s): F32.9 - MAJOR DEPRESSIVE DISORDER, SINGLE EPISODE, UNSPECIFIED Qualifiers: Depression Type: major depressive disorder Major depression episode severity: unspecified (7) Hypoalbuminemia Code(s): E88.09 - OTH DISORDERS OF PLASMA-PROTEIN METABOLISM, NEC (8) Breast cancer, left Code(s): C50.912 - MALIGNANT NEOPLASM OF UNSPECIFIED SITE OF LEFT FEMALE BREAST Qualifiers: Breast location: central portion of breast Estrogen receptor status: unspecified Patient sex: female Qualified Code(s): C50.112 - Malignant neoplasm of central portion of left female breast (10) Anticoagulant long-term use Code(s): Z79.01 - USP (CURRENT) USE OF 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 (11) Visual impairment Code(s): H54.7 - UNSPECIFIED VISUAL LOSS (12) Elderly person living alone Code(s): Z60.2 - PROBLEMS RELATED TO LIVING ALONE
[2019-10-27] MEDS ORDERED: WARFARIN NA 7.5 MG TABLET (FP) PO ONE (18:28)
[2019-10-27] MEDS ORDERED: PT OWN MED DRAWER 7, Y5N ONE (20:29)
[2019-10-28 07:32] LABS: HEMATOCRIT 24.8 % (32.4-45.2); HEMOGLOBIN 8.2 GM/dL (10.7-15.3); MCH 30.9 pg (25.7-33.7); MCHC 33.2 g/dl (32.0-36.0); MEAN PLT VOLUME 7.8 fl (7.5-11.1); PLATELET COUNT 202 K/MM3 (134-434); RBC 2.67 M/mm3 (3.60-5.2); RDW 15.6 % (11.6-15.6); WHITE BLOOD COUNT 4.1 K/mm3 (4.0-10.0)
[2019-10-28 07:34] LABS: INR 1.91 (0.83-1.09); PROTHROMBIN TIME (PATIENT) 22.7 SEC (9.7-13.0)
[2019-10-28] MEDS ORDERED: PT OWN MED DRAWER 7, Y5N ONE ×3 (08:52→20:13)
[2019-10-28] MEDS: buPROPion HCL 75 MG TABLET PO SCH ×2 (08:55→20:23)
[2019-10-28] MEDS: ANASTROZOLE 1 MG TABLET PO SCH (09:05)
[2019-10-28] MEDS: PANTOPRAZOLE 40 MG TABLET PO SCH ×2 (09:05→10:26)
[2019-10-28] MEDS: SACUBITRIL/VALSARTAN 24 MG-26 MG TABLET PO SCH ×2 (09:05→22:03)
[2019-10-28] MEDS: ENOXAPARIN NA (PORCINE) 80 MG/0.8 ML DISP.SYRIN SQ SCH (09:05)
[2019-10-28] MEDS: CARVEDILOL 6.25 MG TABLET (FP) PO SCH ×2 (09:06→22:03)
[2019-10-28] MEDS: FUROSEMIDE 20 MG TABLET (FP) PO SCH (09:06)
[2019-10-28] MEDS: IRON SUCROSE INJECTION 200 MG in SODIUM CHLORIDE 90 ML IVPB SCH (09:54)
--- NOTE | 2019-10-28 11:49 | PN ---
Progress Note (short form) - Note Progress Note: Active Medications Anastrozole (Arimidex -) 1 mg PO DAILY [facility] Last Admin: 10/28/19 09:05 Dose: 1 mg Documented by: Bupropion HCl (Wellbutrin -) 75 mg PO BID@0800,2000 [facility] Last Admin: 10/28/19 08:55 Dose: 75 mg Documented by: Carvedilol (Coreg -) 6.25 mg PO BID [facility] Last Admin: 10/28/19 09:06 Dose: 6.25 mg Documented by: Furosemide (Lasix -) 20 mg PO DAILY [facility] Last Admin: 10/28/19 09:06 Dose: 20 mg Documented by: Iron Sucrose 200 mg/ Sodium (Chloride) 100 mls @ 100 mls/hr IVPB Q48H [facility] Stop: 10/31/19 10:29 Last Admin: 10/28/19 09:54 Dose: 100 mls/hr Documented by: Melatonin (Melatonin) 5 mg PO HS PRN PRN Reason: INSOMNIA Last Admin: 10/26/19 21:13 Dose: 5 mg Documented by: Pantoprazole Sodium (Protonix -) 40 mg PO DAILY [facility] Last Admin: 10/28/19 10:26 Dose: Not Given Documented by: Sacubitril/Valsartan (Entresto 24 Mg-26 Mg Tablet) 1 tab PO BID [facility] Last Admin: 10/28/19 09:05 Dose: 1 tab Documented by: Tramadol HCl (Ultram -) 50 mg PO Q8H PRN PRN Reason: PAIN LEVEL 4 - 6 Last Admin: 10/27/19 05:50 Dose: 50 mg Documented by: Warfarin Sodium (Coumadin -) 3 mg PO DAILY@1800 [facility] Laboratory Results - last 24 hr 10/27/19 10/28/19 10/28/19 08:20 06:25 06:57 WBC 4.1 RBC 2.67 L Hgb 8.2 L Hct 24.8 L MCV 93.0 MCH 30.9 MCHC 33.2 RDW 15.6 Plt Count 202 MPV 7.8 PT with INR INR POC Glucometer 93 Erythropoietin 30.4 H 10/28/19 06:57 WBC RBC Hgb Hct MCV MCH MCHC RDW Plt Count MPV PT with INR 22.70 H INR 1.91 H POC Glucometer Erythropoietin Vital Signs Temperature 98.2 F 10/28/19 09:19 Pulse Rate 64 10/28/19 09:19 Respiratory Rate 18 10/28/19 09:19 Blood Pressure 143/58 L 10/28/19 09:19 O2 Sat by Pulse Oximetry (%) 96 10/28/19 09:19 CC; no abd discomfort; still not eating well ``````````````````````````````````````` skin--no changes lungs--unlabored, distant heart--RR abd--soft, BS+, NT ext--no edema neuro--alert; coherent; no deficits appreciated ````````````````````````````````````````` Summ > anemia--vacilating H/H, now down to 8.2; back on a/c; cause still not clear as of yet. d/w Dr benavidez PLAN: check CBC in Am > DM--no needs for Metformin at present; cont BGMs > Htn--with heart & CKdz; stable in general > Hx of CVA--on a/c for prevention ````````````````````````````````` Dr Caputo Problem List - Problems (1) Anemia Code(s): D64.9 - ANEMIA, UNSPECIFIED Qualifiers: Anemia type: unspecified type Qualified Code(s): D64.9 - Anemia, unspecified (2) Acute on chronic systolic congestive heart failure Code(s): I50.23 - ACUTE ON CHRONIC SYSTOLIC (CONGESTIVE) HEART FAILURE (3) COPD (chronic obstructive pulmonary disease) Code(s): J44.9 - CHRONIC OBSTRUCTIVE PULMONARY DISEASE, UNSPECIFIED Qualifiers: COPD type: unspecified COPD Qualified Code(s): J44.9 - Chronic obstructive pulmonary disease, unspecified (4) Diabetes mellitus type 2, noninsulin dependent Code(s): E11.9 - TYPE 2 DIABETES MELLITUS WITHOUT COMPLICATIONS (5) Chronic kidney disease Code(s): N18.9 - CHRONIC KIDNEY DISEASE, UNSPECIFIED Qualifiers: Chronic kidney disease stage: stage 3 (moderate) Qualified Code(s): N18.3 - Chronic kidney disease, stage 3 (moderate) (6) Depression Code(s): F32.9 - MAJOR DEPRESSIVE DISORDER, SINGLE EPISODE, UNSPECIFIED Qualifiers: Depression Type: major depressive disorder Major depression episode severity: unspecified (7) Hypoalbuminemia Code(s): E88.09 - OTH DISORDERS OF PLASMA-PROTEIN METABOLISM, NEC (8) Breast cancer, left Code(s): C50.912 - MALIGNANT NEOPLASM OF UNSPECIFIED SITE OF LEFT FEMALE BREAST Qualifiers: Breast location: central portion of breast Estrogen receptor status: unspecified Patient sex: female Qualified Code(s): C50.112 - Malignant neoplasm of central portion of left female breast (10) Anticoagulant long-term use Code(s): Z79.01 - MEDIA TECHNICIAN (CURRENT) USE OF 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 (11) Visual impairment Code(s): H54.7 - UNSPECIFIED VISUAL LOSS (12) Elderly person living alone Code(s): Z60.2 - PROBLEMS RELATED TO LIVING ALONE
--- NOTE | 2019-10-28 17:15 | PN.HO ---
Progress Note, Physician History of Present Illness: followed for anemia - Current Medication List Current Medications: Active Medications Anastrozole (Arimidex -) 1 mg PO DAILY [facility] Last Admin: 10/28/19 09:05 Dose: 1 mg Documented by: Bupropion HCl (Wellbutrin -) 75 mg PO BID@0800,1999 [facility] Last Admin: 10/28/19 08:55 Dose: 75 mg Documented by: Carvedilol (Coreg -) 6.25 mg PO BID [facility] Last Admin: 10/28/19 09:06 Dose: 6.25 mg Documented by: Furosemide (Lasix -) 20 mg PO DAILY [facility] Last Admin: 10/28/19 09:06 Dose: 20 mg Documented by: Iron Sucrose 200 mg/ Sodium (Chloride) 100 mls @ 100 mls/hr IVPB Q48H [facility] Stop: 10/31/19 10:29 Last Admin: 10/28/19 09:54 Dose: 100 mls/hr Documented by: Melatonin (Melatonin) 5 mg PO HS PRN PRN Reason: INSOMNIA Last Admin: 10/26/19 21:13 Dose: 5 mg Documented by: Pantoprazole Sodium (Protonix -) 40 mg PO DAILY [facility] Last Admin: 10/28/19 10:26 Dose: Not Given Documented by: Sacubitril/Valsartan (Entresto 24 Mg-26 Mg Tablet) 1 tab PO BID [facility] Last Admin: 10/28/19 09:05 Dose: 1 tab Documented by: Tramadol HCl (Ultram -) 50 mg PO Q8H PRN PRN Reason: PAIN LEVEL 4 - 6 Last Admin: 10/27/19 05:50 Dose: 50 mg Documented by: Warfarin Sodium (Coumadin -) 3 mg PO DAILY@1800 [facility] - Objective Vital Signs: Vital Signs Temperature 98.2 F 10/28/19 09:19 Pulse Rate 64 10/28/19 09:19 Respiratory Rate 18 10/28/19 09:19 Blood Pressure 143/58 L 10/28/19 09:19 O2 Sat by Pulse Oximetry (%) 96 10/28/19 09:19 Constitutional: Yes: Well Nourished, No Distress Eyes: Yes: WNL, Conjunctiva Clear, Cataracts HENT: Yes: Atraumatic, Normocephalic Neck: Yes: Supple Cardiovascular: Yes: Regular Rate and Rhythm Respiratory: Yes: CTA Bilaterally Gastrointestinal: Yes: Normal Bowel Sounds, Soft Musculoskeletal: Yes: WNL Extremities: Yes: WNL Neurological: Yes: Alert, Oriented Labs: CBC, BMP 10/28/19 06:57 10/27/19 06:25 INR, PTT INR 1.91 (0.83-1.09) H 10/28/19 06:57 Assessment/Plan 68F with COPD, DM, HFref (EF 30%) hx of CVA, L breast ca currently on coumadin for recurrent CVA Consulted for management of anemia; s/p bone marrow biopsy unremarkable for MDS or acute pathology. B12 312, folate wnl, TSH wnl. Also with CKD; s/p EGD with no overt bleeding. Planned for capsule study as outpt with GI. Baseline Hb runs 8- 9, MCV 93. Iron 43, Tsat 16%; received IV venofer. Ferritin 235, EPO high (30) Most likely anemia is multifactorial. Would continue with Iv iron supplementation(total 5 days) as tsat <20%. Would avoid Procrit in patient 2/2 known hx of CVA (baseline Scr 1.5-1.8) Obtain MMA/Homocysteine levels as B12 level is borderline to complete workup.
[2019-10-28] MEDS ORDERED: WARFARIN NA 3 MG TABLET PO SCH (18:00)
[2019-10-28] MEDS: MELATONIN 5 MG TABLETS PO PRN (22:03)
[2019-10-29 07:18] LABS: HEMOGLOBIN 8.4 GM/dL (10.7-15.3); MCH 31.1 pg (25.7-33.7); MCHC 33.5 g/dl (32.0-36.0); MEAN CELL VOLUME 92.8 fl (80-96); MEAN PLT VOLUME 8.2 fl (7.5-11.1); PLATELET COUNT 217 K/MM3 (134-434); RBC 2.69 M/mm3 (3.60-5.2); RDW 15.3 % (11.6-15.6); WHITE BLOOD COUNT 5.3 K/mm3 (4.0-10.0)
[2019-10-29 07:47] LABS: BLOOD UREA NITROGEN 22.3 mg/dL (7-18); CALCIUM 8.5 mg/dL (8.5-10.1); CREATININE 1.5 mg/dL (0.55-1.3); POTASSIUM 3.5 mmol/L (3.5-5.1)
[2019-10-29 07:49] LABS: INR 1.64 (0.83-1.09); PROTHROMBIN TIME (PATIENT) 19.4 SEC (9.7-13.0)
[2019-10-29] MEDS: PANTOPRAZOLE 40 MG TABLET PO SCH (09:10)
[2019-10-29] MEDS: CARVEDILOL 6.25 MG TABLET (FP) PO SCH ×2 (09:18→21:02)
[2019-10-29] MEDS: SACUBITRIL/VALSARTAN 24 MG-26 MG TABLET PO SCH ×2 (09:18→21:02)
[2019-10-29] MEDS: ANASTROZOLE 1 MG TABLET PO SCH (09:18)
[2019-10-29] MEDS: FUROSEMIDE 20 MG TABLET (FP) PO SCH (09:18)
[2019-10-29] MEDS: buPROPion HCL 75 MG TABLET PO SCH ×2 (09:18→20:55)
[2019-10-29] MEDS ORDERED: ENOXAPARIN NA (PORCINE) 80 MG/0.8 ML DISP.SYRIN SQ STA (11:42)
--- NOTE | 2019-10-29 14:49 | PN ---
Progress Note (short form) - Note Progress Note: Active Medications Anastrozole (Arimidex -) 1 mg PO DAILY [facility] Last Admin: 10/29/19 09:18 Dose: 1 mg Documented by: Bupropion HCl (Wellbutrin -) 75 mg PO BID@0800,2000 [facility] Last Admin: 10/29/19 09:18 Dose: 75 mg Documented by: Carvedilol (Coreg -) 6.25 mg PO BID [facility] Last Admin: 10/29/19 09:18 Dose: 6.25 mg Documented by: Cyanocobalamin (Vitamin B12 -) 1,000 mcg PO DAILY [facility] Enoxaparin Sodium (Lovenox -) 80 mg SQ ONCE ONE Stop: 10/29/19 22:01 Furosemide (Lasix -) 40 mg PO DAILY [facility] Melatonin (Melatonin) 5 mg PO HS PRN PRN Reason: INSOMNIA Last Admin: 10/28/19 22:03 Dose: 5 mg Documented by: Pantoprazole Sodium (Protonix -) 40 mg PO DAILY [facility] Last Admin: 10/29/19 09:10 Dose: 40 mg Documented by: Sacubitril/Valsartan (Entresto 24 Mg-26 Mg Tablet) 1 tab PO BID [facility] Last Admin: 10/29/19 09:18 Dose: 1 tab Documented by: Simethicone (Mylicon -) 80 mg PO QID [facility] Tramadol HCl (Ultram -) 50 mg PO Q8H PRN PRN Reason: PAIN LEVEL 4 - 6 Last Admin: 10/27/19 05:50 Dose: 50 mg Documented by: Warfarin Sodium (Coumadin -) 5 mg PO DAILY@1800 [facility] Laboratory Results - last 24 hr 10/29/19 10/29/19 10/29/19 06:15 06:15 06:15 WBC 5.3 RBC 2.69 L Hgb 8.4 L Hct 25.0 L MCV 92.8 MCH 31.1 MCHC 33.5 RDW 15.3 Plt Count 217 MPV 8.2 PT with INR 19.40 H INR 1.64 H Sodium 139 Potassium 3.5 Chloride 104 Carbon Dioxide 27 Anion Gap 8 BUN 22.3 H Creatinine 1.5 H Est GFR (CKD-EPI)AfAm 40.49 Est GFR (CKD-EPI)NonAf 34.93 POC Glucometer Random Glucose 98 Calcium 8.5 10/29/19 06:35 WBC RBC Hgb Hct MCV MCH MCHC RDW Plt Count MPV PT with INR INR Sodium Potassium Chloride Carbon Dioxide Anion Gap BUN Creatinine Est GFR (CKD-EPI)AfAm Est GFR (CKD-EPI)NonAf POC Glucometer 94 Random Glucose Calcium Vital Signs Temperature 98.8 F 10/29/19 14:32 Pulse Rate 71 10/29/19 14:32 Respiratory Rate 18 10/29/19 14:32 Blood Pressure 138/51 L 10/29/19 14:32 O2 Sat by Pulse Oximetry (%) 96 10/29/19 14:32 CC; feels bloated ``````````````````````````````````````` skin--no changes lungs--unlabored, distant heart--RR abd--soft, BS+, distended; mild non madeline tenderness ext--no edema neuro--alert; coherent; no deficits appreciated ````````````````````````````````````````` Summ > anemia--Heme note appreciated; Hgb now at 8.4; back on a/c; cause still not clear as of yet. pLAN: re-check CBC in Am; add B12 > DM--no needs for Metformin at present; cont BGMs > Htn--with heart & CKdz; stable on current agents but will increase dose of lasix to 40mg Qd > gaseous abd distention--post endoscopy; will add simethicone > Hx of CVA--on a/c for prevention ````````````````````````````````` Dr Caputo Problem List - Problems (1) Anemia Code(s): D64.9 - ANEMIA, UNSPECIFIED Qualifiers: Anemia type: unspecified type Qualified Code(s): D64.9 - Anemia, unspecified (2) Acute on chronic systolic congestive heart failure Code(s): I50.23 - ACUTE ON CHRONIC SYSTOLIC (CONGESTIVE) HEART FAILURE (3) COPD (chronic obstructive pulmonary disease) Code(s): J44.9 - CHRONIC OBSTRUCTIVE PULMONARY DISEASE, UNSPECIFIED Qualifiers: COPD type: unspecified COPD Qualified Code(s): J44.9 - Chronic obstructive pulmonary disease, unspecified (4) Diabetes mellitus type 2, noninsulin dependent Code(s): E11.9 - TYPE 2 DIABETES MELLITUS WITHOUT COMPLICATIONS (5) Chronic kidney disease Code(s): N18.9 - CHRONIC KIDNEY DISEASE, UNSPECIFIED Qualifiers: Chronic kidney disease stage: stage 3 (moderate) Qualified Code(s): N18.3 - Chronic kidney disease, stage 3 (moderate) (6) Depression Code(s): F32.9 - MAJOR DEPRESSIVE DISORDER, SINGLE EPISODE, UNSPECIFIED Qualifiers: Depression Type: major depressive disorder Major depression episode severity: unspecified (7) Hypoalbuminemia Code(s): E88.09 - OTH DISORDERS OF PLASMA-PROTEIN METABOLISM, NEC (8) Breast cancer, left Code(s): C50.912 - MALIGNANT NEOPLASM OF UNSPECIFIED SITE OF LEFT FEMALE BREAST Qualifiers: Breast location: central portion of breast Estrogen receptor status: unspecified Patient sex: female Qualified Code(s): C50.112 - Malignant neoplasm of central portion of left female breast (10) Anticoagulant long-term use Code(s): Z79.01 - 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
[2019-10-29] MEDS: WARFARIN NA 5 MG TABLET PO SCH (17:15)
[2019-10-29] MEDS: SIMETHICONE 80 MG TAB.CHEW (FP) PO SCH ×2 (17:15→21:02)
[2019-10-29] MEDS ORDERED: PT OWN MED DRAWER 7, Y5N ONE (20:47)
--- NOTE | 2019-10-29 21:23 | PN ---
Progress Note (short form) - Note Progress Note: Patient seen in follow up. No new complaints. No significant events overnight. Inpatient Meds reviewed. Current Medications Generic Name Dose Route Start Last Admin Trade Name Freq PRN Reason Stop Dose Admin Anastrozole 1 mg 10/22/19 10:00 10/29/19 09:18 Arimidex - PO 1 mg DAILY [facility] Administration Bupropion HCl 75 mg 10/22/19 08:00 10/29/19 20:55 Wellbutrin - PO 75 mg BID@0800,2000 [facility] Administration Carvedilol 6.25 mg 10/22/19 10:00 10/29/19 21:02 Coreg - PO 6.25 mg BID [facility] Administration Cyanocobalamin 1,000 mcg 10/30/19 10:00 Vitamin B12 - PO DAILY [facility] Enoxaparin Sodium 80 mg 10/29/19 22:00 10/29/19 21:02 Lovenox - SQ 10/29/19 22:01 80 mg ONCE ONE Administration Furosemide 40 mg 10/29/19 14:42 Lasix - PO DAILY [facility] Melatonin 5 mg 10/22/19 22:00 10/28/19 22:03 Melatonin PO 5 mg HS PRN Administration INSOMNIA Mirtazapine 7.5 mg 10/29/19 22:00 10/29/19 21:03 Remeron - PO 10/29/19 22:01 7.5 mg HS [facility] Administration Pantoprazole Sodium 40 mg 10/25/19 11:00 10/29/19 09:10 Protonix - PO 40 mg DAILY [facility] Administration Sacubitril/Valsartan 1 tab 10/22/19 10:00 10/29/19 21:02 Entresto 24 Mg-26 Mg Tablet PO 1 tab BID [facility] Administration Simethicone 80 mg 10/29/19 18:00 10/29/19 21:02 Mylicon - PO 80 mg QID [facility] Administration Tramadol HCl 50 mg 10/26/19 16:28 10/27/19 05:50 Ultram - PO 50 mg Q8H PRN Administration PAIN LEVEL 4 - 6 Warfarin Sodium 5 mg 10/29/19 18:00 10/29/19 17:15 Coumadin - PO 5 mg DAILY@1800 [facility] Administration On Examination: Last Vital Signs Temp Pulse Resp BP Pulse Ox 98 F 78 20 148/58 L 97 10/29/19 21:08 10/29/19 21:08 10/29/19 21:08 10/29/19 21:08 10/29/19 21:08 General: In no acute distress, lying comfortably in bed. Extremities: No pallor or icterus. CVS: S1, S2, regular, no gallop or murmur. Chest: good air entry bilaterally, clear Abdomen: Non-distended, non-tender, no palpable organomegaly. Neuro: Alert, oriented, non-focal. Labs: CBC, BMP 10/29/19 06:15 10/29/19 06:15 Assessment. Normocytic anemia, with unremarkable workup thus far, including bone marrow biopsy. Borderline iron parameters - trial of IV iron - ongoing. Suspect component of anemia of inflammation, and component of renal anemia. Endogenous epo level significantly below expected level for her degree of anemia - confident that her Hb would respond to RAFAEL. Would however not institute prior to consultation with her breast oncologist, for risk:benefit evaluation in light of her history of breast cancer.
[2019-10-29] MEDS ORDERED: MIRTAZAPINE 15 MG TABLET (FP) PO SCH (22:00)
[2019-10-29] MEDS ORDERED: ENOXAPARIN NA (PORCINE) 80 MG/0.8 ML DISP.SYRIN SQ ONE (22:00)
[2019-10-30 06:55] LABS: HEMATOCRIT 26.3 % (32.4-45.2); HEMOGLOBIN 8.8 GM/dL (10.7-15.3); MCH 30.9 pg (25.7-33.7); MCHC 33.4 g/dl (32.0-36.0); MEAN CELL VOLUME 92.5 fl (80-96); MEAN PLT VOLUME 7.6 fl (7.5-11.1); PLATELET COUNT 216 K/MM3 (134-434); RBC 2.84 M/mm3 (3.60-5.2); RDW 15.2 % (11.6-15.6); WHITE BLOOD COUNT 5.6 K/mm3 (4.0-10.0)
[2019-10-30 08:09] LABS: BLOOD UREA NITROGEN 24.2 mg/dL (7-18); CALCIUM 8.5 mg/dL (8.5-10.1); CREATININE 1.7 mg/dL (0.55-1.3); POTASSIUM 3.4 mmol/L (3.5-5.1)
[2019-10-30] MEDS ORDERED: PT OWN MED DRAWER 7, Y5N ONE ×2 (10:56→22:32)
[2019-10-30] MEDS: PANTOPRAZOLE 40 MG TABLET PO SCH (10:57)
[2019-10-30] MEDS: CARVEDILOL 12.5 MG TABLET (FP) PO SCH ×2 (10:57→22:43)
[2019-10-30] MEDS: SIMETHICONE 80 MG TAB.CHEW (FP) PO SCH ×4 (10:58→22:42)
[2019-10-30] MEDS: FUROSEMIDE 40 MG TABLET (FP) PO SCH (10:58)
[2019-10-30] MEDS: CYANOCOBALAMIN 1,000 MCG TABLET (FP) PO SCH (10:58)
[2019-10-30] MEDS: SACUBITRIL/VALSARTAN 24 MG-26 MG TABLET PO SCH ×2 (10:58→23:50)
[2019-10-30] MEDS: ANASTROZOLE 1 MG TABLET PO SCH (10:59)
[2019-10-30] MEDS: buPROPion HCL 75 MG TABLET PO SCH ×2 (10:59→22:43)
[2019-10-30 11:47] LABS: INR 1.61 (0.83-1.09); PROTHROMBIN TIME (PATIENT) 19.1 SEC (9.7-13.0)
[2019-10-30 11:49] VITALS: BMI 31.2
--- NOTE | 2019-10-30 13:24 | PN ---
Progress Note (short form) - Note Progress Note: Active Medications Anastrozole (Arimidex -) 1 mg PO DAILY [facility] Last Admin: 10/30/19 10:59 Dose: 1 mg Documented by: Bupropion HCl (Wellbutrin -) 75 mg PO BID@0800,2000 [facility] Last Admin: 10/30/19 10:59 Dose: 75 mg Documented by: Carvedilol (Coreg -) 12.5 mg PO BID [facility] Last Admin: 10/30/19 10:57 Dose: 12.5 mg Documented by: Cyanocobalamin (Vitamin B12 -) 1,000 mcg PO DAILY [facility] Last Admin: 10/30/19 10:58 Dose: 1,000 mcg Documented by: Furosemide (Lasix -) 40 mg PO DAILY [facility] Last Admin: 10/30/19 10:58 Dose: 40 mg Documented by: Melatonin (Melatonin) 5 mg PO HS PRN PRN Reason: INSOMNIA Last Admin: 10/28/19 22:03 Dose: 5 mg Documented by: Pantoprazole Sodium (Protonix -) 40 mg PO DAILY [facility] Last Admin: 10/30/19 10:57 Dose: 40 mg Documented by: Sacubitril/Valsartan (Entresto 24 Mg-26 Mg Tablet) 1 tab PO BID [facility] Last Admin: 10/30/19 10:58 Dose: 1 tab Documented by: Simethicone (Mylicon -) 80 mg PO QID [facility] Last Admin: 10/30/19 10:58 Dose: 80 mg Documented by: Tramadol HCl (Ultram -) 50 mg PO Q8H PRN PRN Reason: PAIN LEVEL 4 - 6 Last Admin: 10/27/19 05:50 Dose: 50 mg Documented by: Warfarin Sodium (Coumadin -) 5 mg PO DAILY@1800 [facility] Last Admin: 10/29/19 17:15 Dose: 5 mg Documented by: Laboratory Results - last 24 hr 10/30/19 10/30/19 10/30/19 06:26 06:30 06:30 WBC 5.6 RBC 2.84 L Hgb 8.8 L Hct 26.3 L MCV 92.5 MCH 30.9 MCHC 33.4 RDW 15.2 Plt Count 216 MPV 7.6 Retic Count PT with INR INR Sodium 142 Potassium 3.4 L Chloride 106 Carbon Dioxide 28 Anion Gap 8 BUN 24.2 H Creatinine 1.7 H Est GFR (CKD-EPI)AfAm 34.80 Est GFR (CKD-EPI)NonAf 30.03 POC Glucometer 94 Random Glucose 92 Calcium 8.5 LD Total 223 10/30/19 10/30/19 06:30 11:16 WBC RBC Hgb Hct MCV MCH MCHC RDW Plt Count MPV Retic Count 1.45 PT with INR 19.10 H INR 1.61 H Sodium Potassium Chloride Carbon Dioxide Anion Gap BUN Creatinine Est GFR (CKD-EPI)AfAm Est GFR (CKD-EPI)NonAf POC Glucometer Random Glucose Calcium LD Total Vital Signs Temperature 98 F 10/30/19 10:00 Pulse Rate 63 10/30/19 10:00 Respiratory Rate 18 10/30/19 10:00 Blood Pressure 154/75 10/30/19 10:00 O2 Sat by Pulse Oximetry (%) 98 10/30/19 10:00 CC; feels less bloated ``````````````````````````````````````` skin--no changes; LLE skin wound clean & dry lungs--unlabored, distant heart--RR abd--soft, BS+, mildly distended. ext--no edema neuro--alert; coherent; no deficits appreciated ````````````````````````````````````````` Summ > anemia--Heme note appreciated starla in regard to using Procrit; Past SPEP was WN L; Hgb now at 8.8; back on a/c Retic is NL, LDH is NL; Hapto pending; Homocyst & malomal acid pending; cause of anemia still not clear as of yet. pLAN: re-check CBC in Am; added B12 > DM--no needs for Metformin at present; cont BGMs > Htn--with heart & CKdz; stable on current agents but will increase dose of lasix to 40mg Qd; increase the BB to 12.5 BID > gaseous abd distention--post endoscopy; better, had BM > Hx of CVA--on a/c for prevention ````````````````````````````````` Dr Caputo Problem List - Problems (1) Anemia Code(s): D64.9 - ANEMIA, UNSPECIFIED Qualifiers: Anemia type: unspecified type Qualified Code(s): D64.9 - Anemia, unspecified (2) Acute on chronic systolic congestive heart failure Code(s): I50.23 - ACUTE ON CHRONIC SYSTOLIC (CONGESTIVE) HEART FAILURE (3) COPD (chronic obstructive pulmonary disease) Code(s): J44.9 - CHRONIC OBSTRUCTIVE PULMONARY DISEASE, UNSPECIFIED Qualifiers: COPD type: unspecified COPD Qualified Code(s): J44.9 - Chronic obstructive pulmonary disease, unspecified (4) Diabetes mellitus type 2, noninsulin dependent Code(s): E11.9 - TYPE 2 DIABETES MELLITUS WITHOUT COMPLICATIONS (5) Chronic kidney disease Code(s): N18.9 - CHRONIC KIDNEY DISEASE, UNSPECIFIED Qualifiers: Chronic kidney disease stage: stage 3 (moderate) Qualified Code(s): N18.3 - Chronic kidney disease, stage 3 (moderate) (6) Depression Code(s): F32.9 - MAJOR DEPRESSIVE DISORDER, SINGLE EPISODE, UNSPECIFIED Qualifiers: Depression Type: major depressive disorder Major depression episode severity: unspecified (7) Hypoalbuminemia Code(s): E88.09 - OTH DISORDERS OF PLASMA-PROTEIN METABOLISM, NEC (8) Breast cancer, left Code(s): C50.912 - MALIGNANT NEOPLASM OF UNSPECIFIED SITE OF LEFT FEMALE BREAST Qualifiers: Breast location: central portion of breast Estrogen receptor status: unspecified Patient sex: female Qualified Code(s): C50.112 - Malignant neoplasm of central portion of left female breast (10) Anticoagulant long-term use Code(s): Z79.01 - NURSING HOME (CURRENT) USE OF 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 (11) Visual impairment Code(s): H54.7 - UNSPECIFIED VISUAL LOSS (12) Elderly person living alone Code(s): Z60.2 - PROBLEMS RELATED TO LIVING ALONE
[2019-10-30] MEDS ORDERED: ENOXAPARIN NA (PORCINE) 80 MG/0.8 ML DISP.SYRIN SQ ONE (13:30)
[2019-10-30] MEDS ORDERED: POTASSIUM CHLORIDE TABS 10 MEQ TABLET.ER (FP) PO ONE (14:09)
[2019-10-30] MEDS: WARFARIN NA 5 MG TABLET PO SCH (17:26)
[2019-10-30] MEDS ORDERED: WARFARIN NA 2 MG TABLET PO ONE (18:00)
[2019-10-30] MEDS ORDERED: MIRTAZAPINE 15 MG TABLET (FP) PO SCH (22:00)
[2019-10-31] MEDS ORDERED: INSULIN (NOVOLOG) ASPART 100 UNITS/ML 10ML VIAL ONE (07:35)
[2019-10-31] MEDS: buPROPion HCL 75 MG TABLET PO SCH (10:00)
[2019-10-31] MEDS: SACUBITRIL/VALSARTAN 24 MG-26 MG TABLET PO SCH (10:00)
[2019-10-31] MEDS: CARVEDILOL 12.5 MG TABLET (FP) PO SCH (10:00)
[2019-10-31] MEDS ORDERED: FERROUS SO4 325 MG TABLET (FP) PO SCH (10:00)
[2019-10-31] MEDS: PANTOPRAZOLE 40 MG TABLET PO SCH (10:00)
[2019-10-31] MEDS: FUROSEMIDE 40 MG TABLET (FP) PO SCH (10:00)
[2019-10-31] MEDS: SIMETHICONE 80 MG TAB.CHEW (FP) PO SCH ×2 (10:01→13:27)
[2019-10-31] MEDS: CYANOCOBALAMIN 1,000 MCG TABLET (FP) PO SCH (10:01)
[2019-10-31] MEDS: ANASTROZOLE 1 MG TABLET PO SCH (10:01)
--- NOTE | 2019-10-31 10:22 | DS ---
Physical Examination Vital Signs: Vital Signs Temperature 98.1 F 10/31/19 06:33 Pulse Rate 66 10/31/19 06:33 Respiratory Rate 18 10/31/19 06:33 Blood Pressure 136/54 L 10/31/19 06:33 O2 Sat by Pulse Oximetry (%) 96 10/31/19 06:33 Constitutional: Yes: Well Nourished, No Distress, Calm Cardiovascular: Yes: Regular Rate and Rhythm Respiratory: Yes: Regular Gastrointestinal: Yes: Normal Bowel Sounds, Soft Extremities: Yes: WNL Edema: No Integumentary: Yes: Other (eschar LLE) Neurological: Yes: WNL ...Motor Strength: WNL Psychiatric: Yes: WNL Labs: CBC, BMP 10/30/19 06:30 10/30/19 06:30 Discharge Summary Problems reviewed: Yes Reason For Visit: anemia Current Active Problems 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 No gross eveidence of GI bleed apparent; BM Bx done on previous admission was non diagnostic. She underwent upper and lower endoscopy w/o any findings suggesting an active GI bleed. Stool studies repeatedly negative for OB. She was transfused 1 U of PC; she was again seen by Hematology who felt that the cause of her anemia was multifactorial (chronic disease; cancer; renal insufficiency). Following the transfusion the Hgb remained stable between 8--9. Further studies did not show any evidence of hemolysis, but more studies are still pending as of this day. [facility] Concerns: ability to care for herself given the multiple limittations Plan of Treatment: PT rehab Goals: reconditioning Condition: Stable - Instructions Diet, Activity, Other Instructions: Low salt and diabetic diet check BGM BID; If Glucose levels over 140 restart METFORMIN 500mg Qd check INR and CBC every 3-4 days; d/c to hospital if Hgb under 7.9 Start PT and OT DO NOT stop any of her Cardiac meds unless she is unstable with vitals Referrals: ON STAFF,NOT [Primary Care Provider] - Disposition: [facility] - Home Medications Comprehensive Discharge Medication List: Ambulatory Orders Bupropion HCl [Wellbutrin -] 75 mg PO BID 01/17/17 Acetaminophen [Pain Relief] 650 mg PO Q6H PRN 06/23/19 Warfarin Na [Coumadin -] 5 mg PO DAILY@1800 tablet 07/27/19 Vit B12 1000mcg Qd Mirtazapine 7.5mg QHS Simethicone 80mg TID Melatonin 5mg QHS PRN sleep Lasix 40mg QD Warfarin 5mg QHS Entresto 24--26 Po BID Coreg 12.5mg BID arimidex 1mg Qd WEllbutrin 75mg BID Famotidine 20mg Qd Miralax 17gm + 8oz water QD Feosol 325mg Qd in PM
[2019-10-31 10:34] VITALS: PULSE 70
[2019-10-31 11:55] LABS: BASO % 0.5 % (0-2.0); EOS % 2.4 % (0-4.5); HEMOGLOBIN 9.1 GM/dL (10.7-15.3); LYMPH % 20.7 % (8-40); MCH 30.4 pg (25.7-33.7); MCHC 32.5 g/dl (32.0-36.0); MEAN CELL VOLUME 93.5 fl (80-96); MEAN PLT VOLUME 8.2 fl (7.5-11.1); MONO % 5.9 % (3.8-10.2); NEUT % 70.5 % (42.8-82.8); PLATELET COUNT 269 K/MM3 (134-434); RDW 15.7 % (11.6-15.6); WHITE BLOOD COUNT 6.9 K/mm3 (4.0-10.0)
[2019-10-31 12:00] LABS: INR 1.59 (0.83-1.09); PROTHROMBIN TIME (PATIENT) 18.9 SEC (9.7-13.0)
[2019-10-31 13:32] VITALS: BP 120/40; TEMP 98.2
[2019-10-31] MEDS ORDERED: ENOXAPARIN NA (PORCINE) 80 MG/0.8 ML DISP.SYRIN SQ ONE (13:46)
[2019-10-31] MEDS ORDERED: WARFARIN NA 2 MG TABLET PO ONE (16:00)
[2019-10-31] MEDS: WARFARIN NA 5 MG TABLET PO SCH (16:09)
[2019-11-07 15:21] LABS: METHYLMALONIC ACID- 276
[2019-11-07 15:22] LABS: HOMOCYSTINE-PLASMA OR SERUM 19.5 umol/L
== END 2019-10-31 16:50 | DRG 291 ==
LOC: JER 17:40 → JERBED 10-22 00:56 → J7W 10-22 11:50
PROVIDERS: ADMIT Internal Medicine; ATTEND Internal Medicine
PROC: 30233N1 Transfusion of Nonautologous Red Blood Cells into Peripheral Vein, Percutaneous Approach (ICD-10-PCS; 2019-10-23)
PROC: 0DB78ZX Excision of Stomach, Pylorus, Via Natural or Artificial Opening Endoscopic, Diagnostic (ICD-10-PCS; 2019-10-25)
PROC: 0DB98ZX Excision of Duodenum, Via Natural or Artificial Opening Endoscopic, Diagnostic (ICD-10-PCS; principal; 2019-10-25 12:00)
PROC: 0DJD8ZZ Inspection of Lower Intestinal Tract, Via Natural or Artificial Opening Endoscopic (ICD-10-PCS; 2019-10-26)
DX: I13.0 Hypertensive heart and chronic kidney disease with heart failure and stage 1 through stage 4 chronic kidney disease, or unspecified chronic kidney disease (principal); I50.23 Acute on chronic systolic (congestive) heart failure; D64.9 Anemia, unspecified; K26.9 Duodenal ulcer, unspecified as acute or chronic, without hemorrhage or perforation; C44.719 Basal cell carcinoma of skin of left lower limb, including hip; J44.9 Chronic obstructive pulmonary disease, unspecified; N18.3 Chronic kidney disease, stage 3 (moderate); E11.9 Type 2 diabetes mellitus without complications; K21.9 Gastro-esophageal reflux disease without esophagitis; E88.09 Other disorders of plasma-protein metabolism, not elsewhere classified; D63.1 Anemia in chronic kidney disease; I70.1 Atherosclerosis of renal artery; M19.90 Unspecified osteoarthritis, unspecified site; L65.9 Nonscarring hair loss, unspecified; H54.7 Unspecified visual loss; K44.9 Diaphragmatic hernia without obstruction or gangrene; K57.30 Diverticulosis of large intestine without perforation or abscess without bleeding; K64.1 Second degree hemorrhoids; F32.9 Major depressive disorder, single episode, unspecified; H54.40 Blindness, one eye, unspecified eye; Z85.3 Personal history of malignant neoplasm of breast; K31.7 Polyp of stomach and duodenum; K29.50 Unspecified chronic gastritis without bleeding; K29.80 Duodenitis without bleeding
CPT/HCPCS: 36415; 36430; 36511; 71045-TC-FY; 80048; 80053; 81003; 82136; 82272; 82607; 82668; 82728; 82746; 82747; 82962; 83010; 83540; 83550; 83615; 83735; 83880; 83883; 83918; 84436; 84443; 84484; 85014; 85025; 85027; 85045; 85610; 85730; 86038; 86225; 86226; 86340; 86850; 86900; 86901; 86922; 88305-TC; 93005; 93010; 97116-GP; 97161-GP; 99285-25; J1756; P9038; P9058; U0003

== ENCOUNTER 2020-05-04 19:53 | Inpatient (IN) | payer OTHER ==
[2020-05-04] MEDS ORDERED: SODIUM CHLORIDE 0.9% 1000 ML INFUS.BAG IV ONE (20:30)
[2020-05-04 21:03] LABS: BASO % 0.4 % (0-2.0); EOS % 0.3 % (0-4.5); HEMATOCRIT 30.9 % (32.4-45.2); HEMOGLOBIN 10.3 GM/dL (10.7-15.3); MCH 32.3 pg (25.7-33.7); MCHC 33.3 g/dl (32.0-36.0); MEAN PLT VOLUME 8.1 fl (7.5-11.1); MONO % 5.1 % (3.8-10.2); NEUT % 86.2 % (42.8-82.8); PLATELET COUNT 322 K/MM3 (134-434); RBC 3.19 M/mm3 (3.60-5.2); WHITE BLOOD COUNT 13.3 K/mm3 (4.0-10.0)
[2020-05-04 21:27] LABS: ALBUMIN 2.9 g/dl (3.4-5.0); BLOOD UREA NITROGEN 44.2 mg/dL (7-18); CALCIUM 8.5 mg/dL (8.5-10.1)
[2020-05-04 21:30] LABS: CREATININE 2.3 mg/dL (0.55-1.3)
[2020-05-04 21:32] LABS: BILIRUBIN,TOTAL 0.3 mg/dL (0.2-1); TOT PROT 6.4 g/dl (6.4-8.2)
[2020-05-04] MEDS ORDERED: POTASSIUM CHLORIDE TABS 20 MEQ TABLET.ER (FP) PO ONE ×2 (21:59→22:11)
[2020-05-04] MEDS ORDERED: KCL 10 MEQ IVPB 10 MEQ/100 ML INFUS.BAG IVPB SCH (22:00)
[2020-05-04] MEDS ORDERED: KCL 10 MEQ IVPB 10 MEQ/100 ML INFUS.BAG IVPB ONE (22:11)
[2020-05-04] MEDS ORDERED: ACETAMINOPHEN 325 MG TABLET (FP) PO ONE (23:44)
[2020-05-04] MEDS ORDERED: LACTATED RINGERS SOLUTION 1000 ML INFUS.BAG IV ONE (23:47)
[2020-05-05] MEDS ORDERED: MAGNESIUM CITRATE 300 ML BOTTLE PO ONE (00:13)
[2020-05-05] MEDS ORDERED: SODIUM PHOSPHATE/NA BIPHOS 133 ML ENEMA PR ONE (00:14)
[2020-05-05] MEDS ORDERED: ACETAMINOPHEN 325 MG TABLET (FP) ONE (00:29)
[2020-05-05 01:24] LABS: EPI CELLS 8 /uL (0-25.1); HYALINE CASTS 3 /uL (0-3.1); URINE APPEARANCE CLOUDY; URINE BACTERIA >9,000 /uL (0-1359); URINE BILIRUBIN NEGATIVE (NEGATIVE); URINE COLOR YELLOW; URINE GLUCOSE (UA) NEGATIVE (NEGATIVE); URINE KETONE NEGATIVE (NEGATIVE); URINE LEUK ESTERASE 2+ (NEGATIVE); URINE NITRITE POSITIVE (NEGATIVE); URINE PROTEIN TRACE (NEGATIVE); URINE RBC 13 /uL (0-23.9); URINE UROBILINOGEN 0.2 mg/dL (0.2-1.0); URINE WBC 313 /uL (0-25.8)
[2020-05-05] MEDS ORDERED: MAGNESIUM CITRATE 300 ML BOTTLE ONE (01:35)
[2020-05-05] MEDS ORDERED: CEFTRIAXONE 1 GM in DEXTROSE 5%-WATER - 100 ML IVPB ONE (02:17)
[2020-05-05] MEDS ORDERED: CEFTRIAXONE 1 GM/50 ML BAG ONE (02:56)
[2020-05-05] MEDS ORDERED: ONDANSETRON 4 MG/2 ML VIAL IVPUSH ONE (05:03)
[2020-05-05] MEDS ORDERED: ONDANSETRON 4 MG/2 ML VIAL ONE (05:51)
[2020-05-05 06:43] LABS: POTASSIUM 3.5 mmol/L (3.5-5.1)
[2020-05-05 06:44] LABS: BLOOD UREA NITROGEN 43.4 mg/dL (7-18); CALCIUM 8.8 mg/dL (8.5-10.1); MAGNESIUM 2.6 mg/dL (1.8-2.4)
[2020-05-05] MEDS ORDERED: ACETAMINOPHEN 650 MG/20.3 ML ORAL SOLUTION (CUPS) PO PRN (11:42)
[2020-05-05] MEDS: SODIUM CHLORIDE 0.45%/POT 20 MEQ/1,000 ML INFUS.BAG IV SCH (12:00)
[2020-05-05 12:54] LABS: PROTHROMBIN TIME (PATIENT) 50.2 SEC (9.7-13.0)
[2020-05-05 13:17] LABS: INR 4.33 (0.83-1.09)
[2020-05-05] MEDS ORDERED: PT OWN MED DRAWER 7, Y5N ONE ×2 (16:31→20:45)
[2020-05-05] MEDS: ANASTROZOLE 1 MG TABLET PO SCH (16:35)
[2020-05-05] MEDS ORDERED: WARFARIN NA 2.5 MG TABLET PO SCH (18:00)
[2020-05-05] MEDS ORDERED: ACETAMINOPHEN 325 MG TABLET (FP) PO PRN (18:38)
[2020-05-05] MEDS: ATORVASTATIN CA 20 MG TABLET (FP) PO SCH (21:34)
[2020-05-05] MEDS: CARVEDILOL 12.5 MG TABLET (FP) PO SCH (21:34)
[2020-05-05] MEDS: MIRTAZAPINE 15 MG TABLET (FP) PO SCH (21:34)
[2020-05-05] MEDS: SACUBITRIL/VALSARTAN 24 MG-26 MG TABLET PO SCH (21:35)
[2020-05-05] MEDS: buPROPion HCL 75 MG TABLET PO SCH (21:35)
[2020-05-06 08:04] LABS: PROTHROMBIN TIME (PATIENT) 55.6 SEC (9.7-13.0)
[2020-05-06 08:14] LABS: POTASSIUM 4.4 mmol/L (3.5-5.1)
[2020-05-06 08:19] LABS: ALBUMIN 2.7 g/dl (3.4-5.0); BLOOD UREA NITROGEN 41.2 mg/dL (7-18); HEMATOCRIT 34.7 % (32.4-45.2); HEMOGLOBIN 11.6 GM/dL (10.7-15.3); MCH 32.8 pg (25.7-33.7); MCHC 33.6 g/dl (32.0-36.0); MEAN CELL VOLUME 97.8 fl (80-96); MEAN PLT VOLUME 8.6 fl (7.5-11.1); PLATELET COUNT 314 K/MM3 (134-434); RBC 3.54 M/mm3 (3.60-5.2); RDW 15.1 % (11.6-15.6); WHITE BLOOD COUNT 8.5 K/mm3 (4.0-10.0)
[2020-05-06 08:22] LABS: CREATININE 1.8 mg/dL (0.55-1.3)
[2020-05-06 08:23] LABS: BILIRUBIN,TOTAL 0.8 mg/dL (0.2-1); TOT PROT 6.2 g/dl (6.4-8.2)
[2020-05-06 08:52] LABS: INR 4.73 (0.83-1.09)
[2020-05-06] MEDS ORDERED: PT OWN MED DRAWER 7, Y5N ONE (08:57)
[2020-05-06] MEDS: buPROPion HCL 75 MG TABLET PO SCH ×2 (09:17→21:18)
[2020-05-06] MEDS: CARVEDILOL 12.5 MG TABLET (FP) PO SCH ×2 (09:18→21:18)
[2020-05-06] MEDS: SACUBITRIL/VALSARTAN 24 MG-26 MG TABLET PO SCH ×2 (09:18→21:18)
[2020-05-06] MEDS: ANASTROZOLE 1 MG TABLET PO SCH (09:18)
[2020-05-06] MEDS: SODIUM CHLORIDE 0.45%/POT 20 MEQ/1,000 ML INFUS.BAG IV SCH ×2 (09:19→21:17)
[2020-05-06] MEDS: ATORVASTATIN CA 20 MG TABLET (FP) PO SCH (21:17)
[2020-05-06] MEDS: MIRTAZAPINE 15 MG TABLET (FP) PO SCH (21:17)
[2020-05-07 08:31] LABS: PROTHROMBIN TIME (PATIENT) 51.3 SEC (9.7-13.0)
[2020-05-07 08:40] LABS: POTASSIUM 4.7 mmol/L (3.5-5.1)
[2020-05-07 08:49] LABS: CALCIUM 8.2 mg/dL (8.5-10.1)
[2020-05-07 08:50] LABS: BLOOD UREA NITROGEN 47.9 mg/dL (7-18)
[2020-05-07 08:52] LABS: INR 4.35 (0.83-1.09)
[2020-05-07] MEDS ORDERED: PT OWN MED DRAWER 7, Y5N ONE ×2 (09:40→20:58)
[2020-05-07] MEDS: CARVEDILOL 12.5 MG TABLET (FP) PO SCH ×2 (09:41→21:49)
[2020-05-07] MEDS: SACUBITRIL/VALSARTAN 24 MG-26 MG TABLET PO SCH ×2 (09:43→21:49)
[2020-05-07] MEDS: buPROPion HCL 75 MG TABLET PO SCH ×2 (09:43→21:49)
[2020-05-07] MEDS: ANASTROZOLE 1 MG TABLET PO SCH (09:43)
[2020-05-07] MEDS: SODIUM CHLORIDE 0.45%/POT 20 MEQ/1,000 ML INFUS.BAG IV SCH (11:27)
[2020-05-07] MEDS ORDERED: PHYTONADIONE 10 MG/1 ML AMP SQ ONE (13:19)
[2020-05-07] MEDS ORDERED: MEROPENEM 1 GM VIAL (RESTRICTED TO ID) IVPB ONE ×2 (13:24→20:57)
[2020-05-07] MEDS ORDERED: DEXTROSE 5%-WATER 100 ML IVPB ONE ×2 (13:24→20:58)
[2020-05-07] MEDS: MEROPENEM 1 GM in DEXTROSE 5%-WATER 100 ML IVPB SCH ×2 (13:28→21:49)
[2020-05-07] MEDS: ATORVASTATIN CA 20 MG TABLET (FP) PO SCH (21:49)
[2020-05-07] MEDS: MIRTAZAPINE 15 MG TABLET (FP) PO SCH (21:49)
[2020-05-08 08:42] LABS: INR 1.12 (0.83-1.09); PROTHROMBIN TIME (PATIENT) 13.7 SEC (9.7-13.0)
[2020-05-08 08:49] LABS: BASO % 0.2 % (0-2.0); EOS % 1.1 % (0-4.5); HEMATOCRIT 29.1 % (32.4-45.2); HEMOGLOBIN 9.9 GM/dL (10.7-15.3); LYMPH % 14.4 % (8-40); MCH 32.9 pg (25.7-33.7); MEAN CELL VOLUME 96.8 fl (80-96); MONO % 8.6 % (3.8-10.2); NEUT % 75.7 % (42.8-82.8); PLATELET COUNT 253 K/MM3 (134-434); RDW 14.7 % (11.6-15.6); WHITE BLOOD COUNT 4.7 K/mm3 (4.0-10.0)
[2020-05-08 09:01] LABS: POTASSIUM 4.4 mmol/L (3.5-5.1)
[2020-05-08 09:07] LABS: BLOOD UREA NITROGEN 39.4 mg/dL (7-18); CALCIUM 8.4 mg/dL (8.5-10.1)
[2020-05-08 09:10] LABS: CREATININE 1.6 mg/dL (0.55-1.3)
[2020-05-08] MEDS ORDERED: DEXTROSE 5%-WATER 100 ML IVPB ONE ×2 (09:54→20:24)
[2020-05-08] MEDS ORDERED: MEROPENEM 1 GM VIAL (RESTRICTED TO ID) IVPB ONE ×2 (09:54→20:24)
[2020-05-08] MEDS ORDERED: PT OWN MED DRAWER 7, Y5N ONE ×2 (09:55→20:25)
[2020-05-08] MEDS: MEROPENEM 1 GM in DEXTROSE 5%-WATER 100 ML IVPB SCH ×2 (09:59→21:14)
[2020-05-08] MEDS: CARVEDILOL 12.5 MG TABLET (FP) PO SCH ×2 (10:01→21:13)
[2020-05-08] MEDS: ANASTROZOLE 1 MG TABLET PO SCH (10:01)
[2020-05-08] MEDS: SACUBITRIL/VALSARTAN 24 MG-26 MG TABLET PO SCH ×2 (10:01→21:14)
[2020-05-08] MEDS: buPROPion HCL 75 MG TABLET PO SCH ×2 (10:02→21:14)
[2020-05-08 12:06] VITALS: BMI 34.7
[2020-05-08] MEDS: SODIUM CHLORIDE 0.45%/POT 20 MEQ/1,000 ML INFUS.BAG IV SCH ×2 (14:11→15:17)
[2020-05-08] MEDS: ENOXAPARIN NA (PORCINE) 80 MG/0.8 ML DISP.SYRIN SQ SCH (21:14)
[2020-05-08] MEDS: ATORVASTATIN CA 20 MG TABLET (FP) PO SCH (21:14)
[2020-05-08] MEDS: POLYETHYLENE GLYCOL 3350 119 GM BTL PO SCH (21:14)
[2020-05-08] MEDS: MIRTAZAPINE 15 MG TABLET (FP) PO SCH (21:14)
[2020-05-09 07:53] LABS: HEMATOCRIT 31.9 % (32.4-45.2); HEMOGLOBIN 10.8 GM/dL (10.7-15.3); MCH 32.8 pg (25.7-33.7); MCHC 33.7 g/dl (32.0-36.0); MEAN CELL VOLUME 97.2 fl (80-96); MEAN PLT VOLUME 8.5 fl (7.5-11.1); PLATELET COUNT 288 K/MM3 (134-434); RBC 3.28 M/mm3 (3.60-5.2); RDW 14.8 % (11.6-15.6); WHITE BLOOD COUNT 6.8 K/mm3 (4.0-10.0)
[2020-05-09 07:54] LABS: INR 1.06 (0.83-1.09)
[2020-05-09 08:05] LABS: POTASSIUM 4.8 mmol/L (3.5-5.1)
[2020-05-09 08:07] LABS: CALCIUM 8.8 mg/dL (8.5-10.1)
[2020-05-09 08:08] LABS: ALBUMIN 2.6 g/dl (3.4-5.0); BLOOD UREA NITROGEN 32.3 mg/dL (7-18)
[2020-05-09 08:11] LABS: CREATININE 1.5 mg/dL (0.55-1.3)
[2020-05-09 08:12] LABS: BILIRUBIN,TOTAL 0.4 mg/dL (0.2-1); TOT PROT 5.7 g/dl (6.4-8.2)
[2020-05-09] MEDS ORDERED: FAMOTIDINE 20 MG TABLET PO SCH (10:00)
[2020-05-09] MEDS ORDERED: DEXTROSE 5%-WATER 100 ML IVPB ONE ×2 (11:44→20:56)
[2020-05-09] MEDS ORDERED: MEROPENEM 1 GM VIAL (RESTRICTED TO ID) IVPB ONE ×2 (11:44→20:55)
[2020-05-09] MEDS: ENOXAPARIN NA (PORCINE) 80 MG/0.8 ML DISP.SYRIN SQ SCH ×2 (11:47→21:35)
[2020-05-09] MEDS: MEROPENEM 1 GM in DEXTROSE 5%-WATER 100 ML IVPB SCH ×2 (11:47→21:14)
[2020-05-09] MEDS: CARVEDILOL 12.5 MG TABLET (FP) PO SCH ×2 (11:48→21:13)
[2020-05-09] MEDS: ANASTROZOLE 1 MG TABLET PO SCH (11:49)
[2020-05-09] MEDS: buPROPion HCL 75 MG TABLET PO SCH ×2 (11:49→21:13)
[2020-05-09] MEDS: SACUBITRIL/VALSARTAN 24 MG-26 MG TABLET PO SCH ×2 (11:49→21:13)
[2020-05-09] MEDS: POLYETHYLENE GLYCOL 3350 119 GM BTL PO SCH ×2 (11:50→21:13)
[2020-05-09] MEDS: SODIUM CHLORIDE 0.45%/POT 20 MEQ/1,000 ML INFUS.BAG IV SCH (11:51)
[2020-05-09] MEDS ORDERED: ONDANSETRON 4 MG/2 ML VIAL IVPUSH PRN (16:09)
[2020-05-09] MEDS: MIRTAZAPINE 15 MG TABLET (FP) PO SCH (21:13)
[2020-05-09] MEDS: ATORVASTATIN CA 20 MG TABLET (FP) PO SCH (21:13)
[2020-05-10 08:46] LABS: HEMATOCRIT 34.5 % (32.4-45.2); HEMOGLOBIN 11.4 GM/dL (10.7-15.3); MCH 32.4 pg (25.7-33.7); MCHC 33.1 g/dl (32.0-36.0); MEAN CELL VOLUME 97.8 fl (80-96); MEAN PLT VOLUME 8.3 fl (7.5-11.1); PLATELET COUNT 339 K/MM3 (134-434); RBC 3.53 M/mm3 (3.60-5.2); RDW 14.8 % (11.6-15.6)
[2020-05-10 09:08] LABS: CALCIUM 8.8 mg/dL (8.5-10.1)
[2020-05-10 09:10] LABS: ALBUMIN 2.6 g/dl (3.4-5.0); BLOOD UREA NITROGEN 29.4 mg/dL (7-18)
[2020-05-10 09:12] LABS: CREATININE 1.5 mg/dL (0.55-1.3)
[2020-05-10 09:13] LABS: BILIRUBIN,TOTAL 0.3 mg/dL (0.2-1); TOT PROT 5.8 g/dl (6.4-8.2)
[2020-05-10] MEDS ORDERED: MEROPENEM 1 GM VIAL (RESTRICTED TO ID) IVPB ONE (09:56)
[2020-05-10] MEDS ORDERED: DEXTROSE 5%-WATER 100 ML IVPB ONE (09:56)
[2020-05-10] MEDS ORDERED: PANTOPRAZOLE SODIUM 40 MG VIAL IVPUSH SCH (10:00)
[2020-05-10] MEDS: MEROPENEM 1 GM in DEXTROSE 5%-WATER 100 ML IVPB SCH (10:28)
[2020-05-10] MEDS: ENOXAPARIN NA (PORCINE) 80 MG/0.8 ML DISP.SYRIN SQ SCH (10:29)
[2020-05-10] MEDS: ANASTROZOLE 1 MG TABLET PO SCH ×2 (10:30→10:45)
[2020-05-10] MEDS: SODIUM CHLORIDE 0.45%/POT 20 MEQ/1,000 ML INFUS.BAG IV SCH (15:53)
[2020-05-10 18:57] VITALS: BP 149/71; PULSE 100; TEMP 97.6
== END 2020-05-10 19:18 | disposition short-term general hospital (02) | DRG 389 ==
LOC: JER 19:53 → JERBED 05-05 00:30 → J8W 05-05 11:08
PROVIDERS: ADMIT Internal Medicine; ATTEND Internal Medicine
PROC: 30233L1 Transfusion of Nonautologous Fresh Plasma into Peripheral Vein, Percutaneous Approach (ICD-10-PCS; 2020-05-07)
PROC: 30233P1 Transfusion of Nonautologous Frozen Red Cells into Peripheral Vein, Percutaneous Approach (ICD-10-PCS; 2020-05-07)
PROC: 0DBM8ZX Excision of Descending Colon, Via Natural or Artificial Opening Endoscopic, Diagnostic (ICD-10-PCS; principal; 2020-05-08 11:30)
PROC: 0D9670Z Drainage of Stomach with Drainage Device, Via Natural or Artificial Opening (ICD-10-PCS; 2020-05-09)
DX: K56.609 Unspecified intestinal obstruction, unspecified as to partial versus complete obstruction (principal); K59.39 Other megacolon; Z16.12 Extended spectrum beta lactamase (ESBL) resistance; N39.0 Urinary tract infection, site not specified; N17.9 Acute kidney failure, unspecified; I50.22 Chronic systolic (congestive) heart failure; I13.0 Hypertensive heart and chronic kidney disease with heart failure and stage 1 through stage 4 chronic kidney disease, or unspecified chronic kidney disease; E11.9 Type 2 diabetes mellitus without complications; Z85.3 Personal history of malignant neoplasm of breast; I25.10 Atherosclerotic heart disease of native coronary artery without angina pectoris; D64.9 Anemia, unspecified; I70.1 Atherosclerosis of renal artery; E78.5 Hyperlipidemia, unspecified; K59.00 Constipation, unspecified; F17.210 Nicotine dependence, cigarettes, uncomplicated; R79.1 Abnormal coagulation profile; E87.6 Hypokalemia; N18.2 Chronic kidney disease, stage 2 (mild); R10.84 Generalized abdominal pain; K21.9 Gastro-esophageal reflux disease without esophagitis; K64.8 Other hemorrhoids
CPT/HCPCS: 36415; 36430; 74018-TC-FY; 74176-TC; 80048; 80053; 81003; 82272; 82962; 83036; 83605; 83690; 83735; 84443; 85025; 85027; 85610; 87086; 87186; 93005; 93010; 99285-25; C9803; J3480; P9017; U0003

== ENCOUNTER 2020-05-20 18:22 | Inpatient (IN) | payer OTHER ==
[2020-05-20 18:55] VITALS: BMI 34.7
[2020-05-20 19:44] LABS: BASO % 0.8 % (0-2.0); HEMATOCRIT 29.7 % (32.4-45.2); HEMOGLOBIN 9.8 GM/dL (10.7-15.3); LYMPH % 13.1 % (8-40); MCH 32.2 pg (25.7-33.7); MEAN CELL VOLUME 97.6 fl (80-96); MONO % 5.8 % (3.8-10.2); NEUT % 75.3 % (42.8-82.8); PLATELET COUNT 304 K/MM3 (134-434); RBC 3.04 M/mm3 (3.60-5.2); RDW 14.9 % (11.6-15.6); WHITE BLOOD COUNT 10.7 K/mm3 (4.0-10.0)
[2020-05-20 19:50] LABS: INR 1.09 (0.83-1.09); PROTHROMBIN TIME (PATIENT) 13.4 SEC (9.7-13.0)
[2020-05-20 19:53] LABS: ACTIVATED PTT 30.5 SECONDS (25.2-36.5)
[2020-05-20 19:54] LABS: CHLORIDE 101 mmol/L (98-107); POTASSIUM 4.8 mmol/L (3.5-5.1); SODIUM 137 mmol/L (136-145)
[2020-05-20 19:55] LABS: CALCIUM 9.7 mg/dL (8.5-10.1)
[2020-05-20 19:56] LABS: ANION GAP 5 MMOL/L (8-16); BLOOD UREA NITROGEN 24.6 mg/dL (7-18); CO2 31 mmol/L (21-32); GLUCOSE,RANDOM 120 mg/dL (74-106); MAGNESIUM 2.2 mg/dL (1.8-2.4)
[2020-05-20 19:58] LABS: CREATININE 1.7 mg/dL (0.55-1.3); SGOT/AST 19 U/L (15-37); SGPT/ALT 13 U/L (13-61)
[2020-05-20 20:01] LABS: BILIRUBIN,TOTAL 0.3 mg/dL (0.2-1); TOT PROT 6.9 g/dl (6.4-8.2)
[2020-05-20 20:02] LABS: ALK PHOS 110 U/L (45-117)
[2020-05-20 20:25] LABS: ALBUMIN 3.2 g/dl (3.4-5.0)
[2020-05-20] MEDS ORDERED: ENOXAPARIN NA (PORCINE) 80 MG/0.8 ML DISP.SYRIN SQ ONE ×2 (20:41→20:50)
[2020-05-20] MEDS ORDERED: WARFARIN NA 5 MG TABLET PO ONE (20:42)
[2020-05-20] MEDS ORDERED: WARFARIN NA 1 MG TABLET ONE (20:49)
[2020-05-20] MEDS ORDERED: WARFARIN NA 5 MG TABLET ONE (20:50)
[2020-05-21] MEDS ORDERED: ENOXAPARIN NA (PORCINE) 80 MG/0.8 ML DISP.SYRIN SQ ONE (12:54)
[2020-05-21] MEDS: ENOXAPARIN NA (PORCINE) 80 MG/0.8 ML DISP.SYRIN SQ SCH ×2 (13:00→23:49)
[2020-05-21] MEDS: ANASTROZOLE 1 MG TABLET PO SCH (14:23)
[2020-05-21] MEDS ORDERED: WARFARIN NA 5 MG TABLET PO ONE (18:00)
[2020-05-21] MEDS ORDERED: WARFARIN NA 5 MG TABLET ONE (18:28)
[2020-05-21] MEDS ORDERED: buPROPion HCL 75 MG TABLET PO SCH ×2 (22:00→22:18)
[2020-05-21] MEDS: CARVEDILOL 6.25 MG TABLET (FP) PO SCH (22:36)
[2020-05-21] MEDS: SACUBITRIL/VALSARTAN 49 MG-51 MG TABLET PO SCH (22:36)
[2020-05-21] MEDS: VANCOMYCIN 250 MG/5 ML ORAL SOLUTION PO SCH (23:50)
[2020-05-22] MEDS: VANCOMYCIN 250 MG/5 ML ORAL SOLUTION PO SCH ×3 (05:21→18:15)
[2020-05-22 06:32] LABS: HEMATOCRIT 24.9 % (32.4-45.2); HEMOGLOBIN 8.3 GM/dL (10.7-15.3); MCH 32.5 pg (25.7-33.7); MCHC 33.5 g/dl (32.0-36.0); MEAN CELL VOLUME 97.3 fl (80-96); MEAN PLT VOLUME 8.4 fl (7.5-11.1); PLATELET COUNT 211 K/MM3 (134-434); RBC 2.56 M/mm3 (3.60-5.2); RDW 14.7 % (11.6-15.6); WHITE BLOOD COUNT 6.8 K/mm3 (4.0-10.0)
[2020-05-22] MEDS: buPROPion HCL 75 MG TABLET PO SCH ×2 (06:45→19:02)
[2020-05-22 06:46] LABS: INR 1.82 (0.83-1.09); PROTHROMBIN TIME (PATIENT) 21.6 SEC (9.7-13.0)
[2020-05-22 07:33] LABS: BLOOD UREA NITROGEN 25.9 mg/dL (7-18); CALCIUM 9.2 mg/dL (8.5-10.1); CREATININE 1.6 mg/dL (0.55-1.3); POTASSIUM 3.7 mmol/L (3.5-5.1)
[2020-05-22] MEDS ORDERED: PT OWN MED DRAWER 7, Y5N ONE ×6 (10:15→22:27)
[2020-05-22] MEDS: CARVEDILOL 6.25 MG TABLET (FP) PO SCH ×2 (10:19→21:17)
[2020-05-22] MEDS: FUROSEMIDE 20 MG TABLET (FP) PO SCH (10:19)
[2020-05-22] MEDS: CYANOCOBALAMIN (VITAMIN B-12) 100 MCG TABLET PO SCH (12:18)
[2020-05-22] MEDS: ANASTROZOLE 1 MG TABLET PO SCH (12:18)
[2020-05-22] MEDS: SACUBITRIL/VALSARTAN 49 MG-51 MG TABLET PO SCH ×2 (12:18→21:17)
[2020-05-22] MEDS: ENOXAPARIN NA (PORCINE) 80 MG/0.8 ML DISP.SYRIN SQ SCH (12:22)
[2020-05-22] MEDS ORDERED: WARFARIN NA 2 MG TABLET PO ONE (18:00)
[2020-05-23] MEDS: buPROPion HCL 75 MG TABLET PO SCH ×2 (06:07→15:59)
[2020-05-23 07:06] LABS: HEMATOCRIT 24.1 % (32.4-45.2); HEMOGLOBIN 8.2 GM/dL (10.7-15.3); MCH 32.7 pg (25.7-33.7); MCHC 33.9 g/dl (32.0-36.0); MEAN CELL VOLUME 96.4 fl (80-96); MEAN PLT VOLUME 8.8 fl (7.5-11.1); PLATELET COUNT 236 K/MM3 (134-434); RDW 14.7 % (11.6-15.6); WHITE BLOOD COUNT 7.3 K/mm3 (4.0-10.0)
[2020-05-23 07:37] LABS: CALCIUM 8.4 mg/dL (8.5-10.1); POTASSIUM 4.1 mmol/L (3.5-5.1)
[2020-05-23 07:38] LABS: BLOOD UREA NITROGEN 27.5 mg/dL (7-18)
[2020-05-23 07:41] LABS: CREATININE 1.7 mg/dL (0.55-1.3)
[2020-05-23 07:47] LABS: INR 2.24 (0.83-1.09); PROTHROMBIN TIME (PATIENT) 26.5 SEC (9.7-13.0)
[2020-05-23] MEDS: CYANOCOBALAMIN (VITAMIN B-12) 100 MCG TABLET PO SCH (11:15)
[2020-05-23] MEDS: SACUBITRIL/VALSARTAN 49 MG-51 MG TABLET PO SCH ×2 (11:15→22:08)
[2020-05-23] MEDS: ANASTROZOLE 1 MG TABLET PO SCH (11:16)
[2020-05-23] MEDS: FUROSEMIDE 20 MG TABLET (FP) PO SCH (11:20)
[2020-05-23] MEDS: CARVEDILOL 6.25 MG TABLET (FP) PO SCH ×2 (11:20→22:08)
[2020-05-23] MEDS ORDERED: PT OWN MED DRAWER 7, Y5N ONE ×3 (12:07→22:07)
[2020-05-23] MEDS: AMINO ACIDS/PROTEIN HYDROLYS 30 ML LIQUID.PKT PO SCH (17:24)
[2020-05-23] MEDS: WARFARIN NA 2.5 MG TABLET PO SCH (18:32)
[2020-05-23] MEDS: ATORVASTATIN CA 10 MG TABLET (FP) PO SCH (22:08)
[2020-05-24] MEDS ORDERED: PT OWN MED DRAWER 7, Y5N ONE ×6 (05:31→23:06)
[2020-05-24] MEDS: buPROPion HCL 75 MG TABLET PO SCH ×2 (06:11→16:58)
[2020-05-24 07:38] LABS: HEMATOCRIT 24.4 % (32.4-45.2); HEMOGLOBIN 8.2 GM/dL (10.7-15.3); MCH 32.1 pg (25.7-33.7); MCHC 33.7 g/dl (32.0-36.0); MEAN CELL VOLUME 95.3 fl (80-96); MEAN PLT VOLUME 8.8 fl (7.5-11.1); PLATELET COUNT 251 K/MM3 (134-434); RBC 2.56 M/mm3 (3.60-5.2); RDW 14.4 % (11.6-15.6); WHITE BLOOD COUNT 6.6 K/mm3 (4.0-10.0)
[2020-05-24 07:44] LABS: INR 2.06 (0.83-1.09); PROTHROMBIN TIME (PATIENT) 24.4 SEC (9.7-13.0)
[2020-05-24 08:00] LABS: POTASSIUM 4.3 mmol/L (3.5-5.1)
[2020-05-24 08:02] LABS: CALCIUM 8.8 mg/dL (8.5-10.1)
[2020-05-24 08:03] LABS: BLOOD UREA NITROGEN 34.4 mg/dL (7-18)
[2020-05-24 08:06] LABS: CREATININE 1.9 mg/dL (0.55-1.3)
[2020-05-24] MEDS: CARVEDILOL 6.25 MG TABLET (FP) PO SCH ×2 (09:39→21:11)
[2020-05-24] MEDS: FUROSEMIDE 20 MG TABLET (FP) PO SCH (09:39)
[2020-05-24] MEDS: AMINO ACIDS/PROTEIN HYDROLYS 30 ML LIQUID.PKT PO SCH ×2 (09:40→16:57)
[2020-05-24] MEDS: ANASTROZOLE 1 MG TABLET PO SCH (09:40)
[2020-05-24] MEDS: SACUBITRIL/VALSARTAN 49 MG-51 MG TABLET PO SCH ×2 (09:40→21:11)
[2020-05-24] MEDS: CYANOCOBALAMIN (VITAMIN B-12) 100 MCG TABLET PO SCH (09:40)
[2020-05-24] MEDS: WARFARIN NA 2.5 MG TABLET PO SCH (17:03)
[2020-05-24] MEDS: ATORVASTATIN CA 10 MG TABLET (FP) PO SCH (21:11)
[2020-05-25] MEDS ORDERED: PT OWN MED DRAWER 7, Y5N ONE ×3 (06:05→16:46)
[2020-05-25] MEDS: buPROPion HCL 75 MG TABLET PO SCH ×2 (06:21→17:18)
[2020-05-25 07:19] LABS: HEMATOCRIT 23.2 % (32.4-45.2); HEMOGLOBIN 7.7 GM/dL (10.7-15.3); MCH 32.1 pg (25.7-33.7); MCHC 33.3 g/dl (32.0-36.0); MEAN CELL VOLUME 96.4 fl (80-96); MEAN PLT VOLUME 8.7 fl (7.5-11.1); PLATELET COUNT 228 K/MM3 (134-434); RBC 2.41 M/mm3 (3.60-5.2); RDW 14.3 % (11.6-15.6); WHITE BLOOD COUNT 6.4 K/mm3 (4.0-10.0)
[2020-05-25 07:31] LABS: INR 2.29 (0.83-1.09); PROTHROMBIN TIME (PATIENT) 27.5 SEC (9.7-13.0)
[2020-05-25 07:40] LABS: POTASSIUM 3.9 mmol/L (3.5-5.1)
[2020-05-25 07:46] LABS: CALCIUM 8.8 mg/dL (8.5-10.1)
[2020-05-25 07:47] LABS: BLOOD UREA NITROGEN 43.5 mg/dL (7-18)
[2020-05-25] MEDS: AMINO ACIDS/PROTEIN HYDROLYS 30 ML LIQUID.PKT PO SCH ×3 (10:44→17:20)
[2020-05-25] MEDS: CARVEDILOL 6.25 MG TABLET (FP) PO SCH ×2 (10:45→21:30)
[2020-05-25] MEDS: ANASTROZOLE 1 MG TABLET PO SCH (10:45)
[2020-05-25] MEDS: CYANOCOBALAMIN (VITAMIN B-12) 100 MCG TABLET PO SCH (10:46)
[2020-05-25] MEDS: SACUBITRIL/VALSARTAN 49 MG-51 MG TABLET PO SCH ×2 (10:47→21:29)
[2020-05-25] MEDS: WARFARIN NA 2.5 MG TABLET PO SCH (17:19)
[2020-05-25] MEDS: ATORVASTATIN CA 10 MG TABLET (FP) PO SCH (21:30)
[2020-05-26] MEDS: buPROPion HCL 75 MG TABLET PO SCH ×2 (06:14→17:42)
[2020-05-26 08:10] LABS: HEMATOCRIT 26.2 % (32.4-45.2); MCH 32.4 pg (25.7-33.7); MCHC 34.4 g/dl (32.0-36.0); MEAN CELL VOLUME 94.2 fl (80-96); PLATELET COUNT 241 K/MM3 (134-434); RBC 2.78 M/mm3 (3.60-5.2); RDW 14.7 % (11.6-15.6); WHITE BLOOD COUNT 5.6 K/mm3 (4.0-10.0)
[2020-05-26 08:26] LABS: INR 2.13 (0.83-1.09); PROTHROMBIN TIME (PATIENT) 25.6 SEC (9.7-13.0)
[2020-05-26 08:31] LABS: POTASSIUM 3.6 mmol/L (3.5-5.1)
[2020-05-26 08:51] LABS: BLOOD UREA NITROGEN 42.2 mg/dL (7-18)
[2020-05-26 08:52] LABS: CALCIUM 8.8 mg/dL (8.5-10.1)
[2020-05-26] MEDS ORDERED: PT OWN MED DRAWER 7, Y5N ONE ×3 (09:25→21:28)
[2020-05-26] MEDS: ANASTROZOLE 1 MG TABLET PO SCH (09:52)
[2020-05-26] MEDS: AMINO ACIDS/PROTEIN HYDROLYS 30 ML LIQUID.PKT PO SCH (09:52)
[2020-05-26] MEDS: SACUBITRIL/VALSARTAN 49 MG-51 MG TABLET PO SCH ×2 (09:52→21:32)
[2020-05-26] MEDS: FAMOTIDINE 20 MG TABLET PO SCH (09:52)
[2020-05-26] MEDS: CARVEDILOL 6.25 MG TABLET (FP) PO SCH ×2 (09:53→21:32)
[2020-05-26] MEDS: CYANOCOBALAMIN (VITAMIN B-12) 100 MCG TABLET PO SCH (09:53)
[2020-05-26] MEDS: WARFARIN NA 2.5 MG TABLET PO SCH (17:42)
[2020-05-26] MEDS: ATORVASTATIN CA 10 MG TABLET (FP) PO SCH (21:32)
[2020-05-27] MEDS: buPROPion HCL 75 MG TABLET PO SCH ×2 (06:00→17:09)
[2020-05-27 07:38] LABS: HEMATOCRIT 26.8 % (32.4-45.2); HEMOGLOBIN 9.2 GM/dL (10.7-15.3); MCH 32.2 pg (25.7-33.7); MCHC 34.3 g/dl (32.0-36.0); MEAN PLT VOLUME 8.6 fl (7.5-11.1); PLATELET COUNT 281 K/MM3 (134-434); RBC 2.86 M/mm3 (3.60-5.2); RDW 14.9 % (11.6-15.6); WHITE BLOOD COUNT 6.7 K/mm3 (4.0-10.0)
[2020-05-27 07:49] LABS: INR 2.04 (0.83-1.09); PROTHROMBIN TIME (PATIENT) 24.6 SEC (9.7-13.0)
[2020-05-27 08:03] LABS: POTASSIUM 3.9 mmol/L (3.5-5.1)
[2020-05-27 08:09] LABS: BLOOD UREA NITROGEN 34.3 mg/dL (7-18); CALCIUM 8.7 mg/dL (8.5-10.1)
[2020-05-27 08:12] LABS: CREATININE 1.8 mg/dL (0.55-1.3)
[2020-05-27] MEDS ORDERED: PT OWN MED DRAWER 7, Y5N ONE ×2 (09:09→21:12)
[2020-05-27] MEDS: FAMOTIDINE 20 MG TABLET PO SCH (09:54)
[2020-05-27] MEDS: CARVEDILOL 6.25 MG TABLET (FP) PO SCH ×2 (09:54→21:27)
[2020-05-27] MEDS: SACUBITRIL/VALSARTAN 49 MG-51 MG TABLET PO SCH ×2 (09:55→21:27)
[2020-05-27] MEDS: CYANOCOBALAMIN (VITAMIN B-12) 100 MCG TABLET PO SCH (09:55)
[2020-05-27] MEDS: ANASTROZOLE 1 MG TABLET PO SCH (09:55)
[2020-05-27] MEDS ORDERED: BISACODYL 10 MG SUPP.RECT PR PRN (10:38)
[2020-05-27] MEDS: WARFARIN NA 2.5 MG TABLET PO SCH (17:57)
[2020-05-27] MEDS: ATORVASTATIN CA 10 MG TABLET (FP) PO SCH (21:27)
[2020-05-28] MEDS: buPROPion HCL 75 MG TABLET PO SCH ×2 (06:21→17:14)
[2020-05-28 07:58] LABS: BASO % 0.4 % (0-2.0); EOS % 4.4 % (0-4.5); HEMATOCRIT 26.7 % (32.4-45.2); HEMOGLOBIN 9.2 GM/dL (10.7-15.3); MCH 32.4 pg (25.7-33.7); MCHC 34.3 g/dl (32.0-36.0); MEAN CELL VOLUME 94.5 fl (80-96); MEAN PLT VOLUME 8.2 fl (7.5-11.1); NEUT % 71.2 % (42.8-82.8); PLATELET COUNT 273 K/MM3 (134-434); RBC 2.83 M/mm3 (3.60-5.2); RDW 14.2 % (11.6-15.6); WHITE BLOOD COUNT 6.7 K/mm3 (4.0-10.0)
[2020-05-28 08:03] LABS: POTASSIUM 4.2 mmol/L (3.5-5.1)
[2020-05-28 08:05] LABS: CALCIUM 8.7 mg/dL (8.5-10.1)
[2020-05-28 08:07] LABS: PROTHROMBIN TIME (PATIENT) 23.7 SEC (9.7-13.0)
[2020-05-28 08:08] LABS: BLOOD UREA NITROGEN 29.5 mg/dL (7-18)
[2020-05-28 08:09] LABS: CREATININE 1.8 mg/dL (0.55-1.3)
[2020-05-28 08:10] LABS: BILIRUBIN,TOTAL 0.4 mg/dL (0.2-1)
[2020-05-28 08:14] LABS: TOT PROT 5.7 g/dl (6.4-8.2)
[2020-05-28 08:15] LABS: ALBUMIN 2.2 g/dl (3.4-5.0)
[2020-05-28] MEDS ORDERED: PT OWN MED DRAWER 7, Y5N ONE ×5 (08:54→21:05)
[2020-05-28] MEDS: FAMOTIDINE 20 MG TABLET PO SCH (09:02)
[2020-05-28] MEDS: ANASTROZOLE 1 MG TABLET PO SCH (09:02)
[2020-05-28] MEDS: CARVEDILOL 6.25 MG TABLET (FP) PO SCH (09:02)
[2020-05-28] MEDS: SACUBITRIL/VALSARTAN 49 MG-51 MG TABLET PO SCH ×2 (09:02→21:09)
[2020-05-28] MEDS ORDERED: CARVEDILOL 6.25 MG TABLET (FP) PO SCH (11:34)
[2020-05-28] MEDS: CYANOCOBALAMIN (VITAMIN B-12) 100 MCG TABLET PO SCH (12:25)
[2020-05-28] MEDS: WARFARIN NA 2.5 MG TABLET PO SCH (17:15)
[2020-05-28] MEDS: CARVEDILOL 12.5 MG TABLET (FP) PO SCH (21:09)
[2020-05-28] MEDS: ATORVASTATIN CA 10 MG TABLET (FP) PO SCH (21:09)
[2020-05-29] MEDS ORDERED: PT OWN MED DRAWER 7, Y5N ONE ×4 (05:27→21:15)
[2020-05-29] MEDS: buPROPion HCL 75 MG TABLET PO SCH ×2 (06:27→16:31)
[2020-05-29 07:59] LABS: HEMOGLOBIN 9.1 GM/dL (10.7-15.3); RDW 14.9 % (11.6-15.6)
[2020-05-29 08:02] LABS: INR 1.94 (0.83-1.09); PROTHROMBIN TIME (PATIENT) 23.4 SEC (9.7-13.0)
[2020-05-29 08:17] LABS: HEMATOCRIT 26.8 % (32.4-45.2); MEAN CELL VOLUME 94.1 fl (80-96); MEAN PLT VOLUME 8.5 fl (7.5-11.1); PLATELET COUNT 295 K/MM3 (134-434); RBC 2.85 M/mm3 (3.60-5.2); WHITE BLOOD COUNT 6.4 K/mm3 (4.0-10.0)
[2020-05-29 08:20] LABS: POTASSIUM 4.1 mmol/L (3.5-5.1)
[2020-05-29 08:22] LABS: BLOOD UREA NITROGEN 27.1 mg/dL (7-18)
[2020-05-29 08:25] LABS: CREATININE 1.6 mg/dL (0.55-1.3)
[2020-05-29] MEDS: CARVEDILOL 12.5 MG TABLET (FP) PO SCH ×2 (09:13→21:17)
[2020-05-29] MEDS: CYANOCOBALAMIN (VITAMIN B-12) 100 MCG TABLET PO SCH (09:13)
[2020-05-29] MEDS: FAMOTIDINE 20 MG TABLET PO SCH (09:13)
[2020-05-29] MEDS: ANASTROZOLE 1 MG TABLET PO SCH (09:13)
[2020-05-29] MEDS: SACUBITRIL/VALSARTAN 49 MG-51 MG TABLET PO SCH ×2 (09:13→21:17)
[2020-05-29] MEDS ORDERED: WARFARIN NA 3 MG TABLET PO SCH (18:00)
[2020-05-29] MEDS: ATORVASTATIN CA 10 MG TABLET (FP) PO SCH (21:17)
[2020-05-30] MEDS ORDERED: PT OWN MED DRAWER 7, Y5N ONE ×2 (06:00→15:56)
[2020-05-30] MEDS: buPROPion HCL 75 MG TABLET PO SCH ×2 (06:06→17:04)
[2020-05-30 07:15] LABS: INR 1.94 (0.83-1.09)
[2020-05-30] MEDS: CARVEDILOL 12.5 MG TABLET (FP) PO SCH (09:46)
[2020-05-30] MEDS: CYANOCOBALAMIN (VITAMIN B-12) 100 MCG TABLET PO SCH (09:46)
[2020-05-30] MEDS: ANASTROZOLE 1 MG TABLET PO SCH (09:46)
[2020-05-30] MEDS: FAMOTIDINE 20 MG TABLET PO SCH (09:46)
[2020-05-30] MEDS: SACUBITRIL/VALSARTAN 49 MG-51 MG TABLET PO SCH (09:46)
[2020-05-30 13:56] VITALS: BP 108/48; PULSE 66; TEMP 98.3
[2020-05-30] MEDS ORDERED: POLYETHYLENE GLYCOL 3350 119 GM BTL PO ONE (15:29)
[2020-05-30] MEDS ORDERED: WARFARIN NA 3 MG TABLET PO ONE (16:00)
== END 2020-05-30 19:30 | DRG 812 ==
LOC: SUPCPDRO 18:22 → JER 18:22 → JERBED 19:59 → J4S 05-21 18:57
PROVIDERS: ADMIT Internal Medicine; ATTEND Internal Medicine
PROC: 30233N1 Transfusion of Nonautologous Red Blood Cells into Peripheral Vein, Percutaneous Approach (ICD-10-PCS; principal; 2020-05-25)
DX: D64.9 Anemia, unspecified (principal); I50.42 Chronic combined systolic (congestive) and diastolic (congestive) heart failure; I13.0 Hypertensive heart and chronic kidney disease with heart failure and stage 1 through stage 4 chronic kidney disease, or unspecified chronic kidney disease; I42.0 Dilated cardiomyopathy; J44.9 Chronic obstructive pulmonary disease, unspecified; E11.9 Type 2 diabetes mellitus without complications; H54.40 Blindness, one eye, unspecified eye; R79.1 Abnormal coagulation profile; I70.1 Atherosclerosis of renal artery; E78.5 Hyperlipidemia, unspecified; K21.9 Gastro-esophageal reflux disease without esophagitis; K57.90 Diverticulosis of intestine, part unspecified, without perforation or abscess without bleeding; F32.9 Major depressive disorder, single episode, unspecified; E11.22 Type 2 diabetes mellitus with diabetic chronic kidney disease; R26.9 Unspecified abnormalities of gait and mobility; N18.30 Chronic kidney disease, stage 3 unspecified; I08.0 Rheumatic disorders of both mitral and aortic valves; R29.898 Other symptoms and signs involving the musculoskeletal system; Z86.73 Personal history of transient ischemic attack (TIA), and cerebral infarction without residual deficits; Z79.01 Long term (current) use of anticoagulants; Z60.2 Problems related to living alone; Z85.3 Personal history of malignant neoplasm of breast
CPT/HCPCS: 36415; 36430; 71045-TC-FY; 73610-TC-LT-FY; 74018-TC-FY; 80048; 80053; 82272; 82962; 83036; 83735; 84484; 85025; 85027; 85610; 85730; 86850; 86900; 86901; 86922; 87324; 87449; 93005; 93010; 97116-GP; 97161-GP; 99285-25; C9803; P9058; U0003; U0005

== ENCOUNTER 2020-07-20 13:29 | Inpatient (IN) | payer OTHER ==
[2020-07-20 15:16] LABS: BASO % 0.6 % (0-2.0); EOS % 2.9 % (0-4.5); HEMATOCRIT 26.2 % (32.4-45.2); HEMOGLOBIN 8.5 GM/dL (10.7-15.3); LYMPH % 13.9 % (8-40); MCH 32.4 pg (25.7-33.7); MCHC 32.5 g/dl (32.0-36.0); MEAN CELL VOLUME 99.5 fl (80-96); MEAN PLT VOLUME 8.7 fl (7.5-11.1); MONO % 4.6 % (3.8-10.2); PLATELET COUNT 313 K/MM3 (134-434); RBC 2.63 M/mm3 (3.60-5.2); RDW 16.7 % (11.6-15.6)
[2020-07-20 15:29] LABS: INR 2.99 (0.83-1.09)
[2020-07-20 15:31] LABS: ACTIVATED PTT 38.8 SECONDS (25.2-36.5)
[2020-07-20 15:33] LABS: CHLORIDE 107 mmol/L (98-107); SODIUM 142 mmol/L (136-145)
[2020-07-20 15:35] LABS: CALCIUM 8.5 mg/dL (8.5-10.1)
[2020-07-20 15:36] LABS: ALBUMIN 3.1 g/dl (3.4-5.0); ANION GAP 6 MMOL/L (8-16); BLOOD UREA NITROGEN 15.3 mg/dL (7-18); CO2 30 mmol/L (21-32); GLUCOSE,RANDOM 112 mg/dL (74-106)
[2020-07-20 15:39] LABS: CREATININE 1.5 mg/dL (0.55-1.3); SGOT/AST 10 U/L (15-37); SGPT/ALT 9 U/L (13-61)
[2020-07-20 15:41] LABS: BILIRUBIN,TOTAL 0.3 mg/dL (0.2-1); TOT PROT 6.6 g/dl (6.4-8.2)
[2020-07-20 15:42] LABS: ALK PHOS 103 U/L (45-117)
[2020-07-20 15:44] LABS: N-TERMINAL BNP 17332.4 pg/ml (5-125)
[2020-07-20] MEDS ORDERED: FUROSEMIDE 40 MG/4 ML INJECTABLE VIAL IVPUSH ONE (16:01)
[2020-07-20] MEDS ORDERED: FUROSEMIDE 40 MG/4 ML INJECTABLE VIAL ONE (16:10)
[2020-07-20] MEDS ORDERED: BENZOCAINE/MENTH/CETYLPYRD CL 1 EACH LOZENGE MM PRN (20:53)
[2020-07-20] MEDS ORDERED: ZOLPIDEM TARTRATE 5 MG TABLET PO PRN (20:54)
[2020-07-20] MEDS ORDERED: ACETAMINOPHEN 325 MG TABLET (FP) PO PRN (20:55)
[2020-07-20] MEDS: CARVEDILOL 12.5 MG TABLET (FP) PO SCH (22:29)
[2020-07-20] MEDS: SACUBITRIL/VALSARTAN 24 MG-26 MG TABLET PO SCH (22:29)
[2020-07-20] MEDS: buPROPion HCL 75 MG TABLET PO SCH (22:29)
[2020-07-21 02:30] VITALS: BMI 30.8
[2020-07-21] MEDS ORDERED: PT OWN MED DRAWER 7, Y5N ONE ×5 (04:59→20:46)
[2020-07-21 10:43] LABS: HEMATOCRIT 23.7 % (32.4-45.2); HEMOGLOBIN 7.9 GM/dL (10.7-15.3); MCH 32.7 pg (25.7-33.7); MCHC 33.3 g/dl (32.0-36.0); MEAN CELL VOLUME 98.2 fl (80-96); MEAN PLT VOLUME 8.1 fl (7.5-11.1); PLATELET COUNT 275 K/MM3 (134-434); RBC 2.41 M/mm3 (3.60-5.2); RDW 16.1 % (11.6-15.6); WHITE BLOOD COUNT 6.9 K/mm3 (4.0-10.0)
[2020-07-21 10:49] LABS: INR 2.94 (0.83-1.09); PROTHROMBIN TIME (PATIENT) 35.1 SEC (9.7-13.0)
[2020-07-21 10:52] LABS: CHLORIDE 104 mmol/L (98-107); SODIUM 141 mmol/L (136-145)
[2020-07-21 10:53] LABS: ANION GAP 5 MMOL/L (8-16); BLOOD UREA NITROGEN 14.5 mg/dL (7-18); CALCIUM 8.6 mg/dL (8.5-10.1); CO2 31 mmol/L (21-32); GLUCOSE,RANDOM 159 mg/dL (74-106); MAGNESIUM 2.2 mg/dL (1.8-2.4)
[2020-07-21 10:56] LABS: CREATININE 1.5 mg/dL (0.55-1.3)
[2020-07-21] MEDS: ANASTROZOLE 1 MG TABLET PO SCH (11:08)
[2020-07-21] MEDS: FUROSEMIDE 40 MG/4 ML INJECTABLE VIAL IVPUSH SCH (11:08)
[2020-07-21] MEDS: CARVEDILOL 12.5 MG TABLET (FP) PO SCH ×2 (11:08→21:30)
[2020-07-21] MEDS: POLYETHYLENE GLYCOL 3350 119 GM BTL PO SCH (11:09)
[2020-07-21 12:22] LABS: PH,URINE 5.5 (5.0-8.0); URINE APPEARANCE CLEAR; URINE BILIRUBIN NEGATIVE (NEGATIVE); URINE COLOR YELLOW; URINE GLUCOSE (UA) NEGATIVE (NEGATIVE); URINE KETONE NEGATIVE (NEGATIVE); URINE LEUK ESTERASE NEGATIVE (NEGATIVE); URINE NITRITE NEGATIVE (NEGATIVE); URINE PROTEIN NEGATIVE (NEGATIVE); URINE UROBILINOGEN 0.2 mg/dL (0.2-1.0)
[2020-07-21] MEDS: buPROPion HCL 75 MG TABLET PO SCH ×2 (13:45→21:30)
[2020-07-21] MEDS: SACUBITRIL/VALSARTAN 24 MG-26 MG TABLET PO SCH ×2 (13:45→21:30)
[2020-07-21] MEDS ORDERED: ALBUTEROL SO4 0.042% IH SOL 1.25 MG/3 ML VIAL.NEB NEB PRN (16:06)
[2020-07-21] MEDS ORDERED: DEXTROSE 5%-WATER - 50 ML IVPB ONE (17:34)
[2020-07-21] MEDS ORDERED: cefTRIAXone SODIUM 1 GM VIAL ONE (17:34)
[2020-07-21] MEDS: WARFARIN NA 2.5 MG TABLET PO SCH (17:43)
[2020-07-21] MEDS: CEFTRIAXONE 1 GM in DEXTROSE 5%-WATER - 50 ML IVPB SCH (17:43)
[2020-07-22] MEDS ORDERED: PT OWN MED DRAWER 7, Y5N ONE (01:32)
[2020-07-22] MEDS ORDERED: cefTRIAXone SODIUM 1 GM VIAL ONE (08:54)
[2020-07-22] MEDS ORDERED: DEXTROSE 5%-WATER - 50 ML IVPB ONE (08:54)
[2020-07-22] MEDS: CARVEDILOL 12.5 MG TABLET (FP) PO SCH ×2 (09:31→22:49)
[2020-07-22] MEDS: ANASTROZOLE 1 MG TABLET PO SCH (09:31)
[2020-07-22] MEDS: CEFTRIAXONE 1 GM in DEXTROSE 5%-WATER - 50 ML IVPB SCH (09:31)
[2020-07-22] MEDS: SACUBITRIL/VALSARTAN 24 MG-26 MG TABLET PO SCH ×2 (09:32→22:49)
[2020-07-22] MEDS: POLYETHYLENE GLYCOL 3350 119 GM BTL PO SCH (09:32)
[2020-07-22] MEDS: buPROPion HCL 75 MG TABLET PO SCH ×2 (09:32→22:49)
[2020-07-22] MEDS: FUROSEMIDE 40 MG/4 ML INJECTABLE VIAL IVPUSH SCH (09:32)
[2020-07-22 10:59] LABS: INR 2.26 (0.83-1.09); PROTHROMBIN TIME (PATIENT) 26.7 SEC (9.7-13.0)
[2020-07-22] MEDS: ASCORBIC ACID 500 MG TABLET (FP) PO SCH (13:02)
[2020-07-22] MEDS: FERROUS SO4 325 MG TABLET (FP) PO SCH (13:02)
[2020-07-22] MEDS: VANCOMYCIN 250 MG/5 ML ORAL SOLUTION PO SCH ×3 (13:02→23:09)
[2020-07-22] MEDS: WARFARIN NA 2.5 MG TABLET PO SCH (18:21)
[2020-07-23] MEDS: VANCOMYCIN 250 MG/5 ML ORAL SOLUTION PO SCH ×3 (05:41→17:51)
[2020-07-23] MEDS ORDERED: DEXTROSE 5%-WATER - 50 ML IVPB ONE (09:52)
[2020-07-23] MEDS ORDERED: PT OWN MED DRAWER 7, Y5N ONE ×2 (09:52→21:55)
[2020-07-23] MEDS ORDERED: cefTRIAXone SODIUM 1 GM VIAL ONE (09:52)
[2020-07-23] MEDS: POLYETHYLENE GLYCOL 3350 119 GM BTL PO SCH (09:55)
[2020-07-23] MEDS: ASCORBIC ACID 500 MG TABLET (FP) PO SCH (10:04)
[2020-07-23] MEDS: CARVEDILOL 12.5 MG TABLET (FP) PO SCH ×2 (10:04→21:32)
[2020-07-23] MEDS: buPROPion HCL 75 MG TABLET PO SCH ×2 (10:04→21:32)
[2020-07-23] MEDS: ANASTROZOLE 1 MG TABLET PO SCH (10:04)
[2020-07-23] MEDS: FUROSEMIDE 40 MG/4 ML INJECTABLE VIAL IVPUSH SCH (10:04)
[2020-07-23] MEDS: FERROUS SO4 325 MG TABLET (FP) PO SCH (10:04)
[2020-07-23] MEDS: SACUBITRIL/VALSARTAN 24 MG-26 MG TABLET PO SCH (10:04)
[2020-07-23] MEDS: CEFTRIAXONE 1 GM in DEXTROSE 5%-WATER - 50 ML IVPB SCH (10:05)
[2020-07-23 12:35] LABS: BLOOD UREA NITROGEN 14.6 mg/dL (7-18); CALCIUM 8.6 mg/dL (8.5-10.1)
[2020-07-23 12:38] LABS: CREATININE 1.5 mg/dL (0.55-1.3)
[2020-07-23 12:40] LABS: BILIRUBIN,TOTAL 0.3 mg/dL (0.2-1); TOT PROT 6.5 g/dl (6.4-8.2)
[2020-07-23 12:46] LABS: INR 2.13 (0.83-1.09); PROTHROMBIN TIME (PATIENT) 25.6 SEC (9.7-13.0)
[2020-07-23 12:49] LABS: HEMATOCRIT 25.1 % (32.4-45.2); HEMOGLOBIN 8.3 GM/dL (10.7-15.3); MCH 32.6 pg (25.7-33.7); MCHC 33.3 g/dl (32.0-36.0); MEAN CELL VOLUME 97.9 fl (80-96); MEAN PLT VOLUME 8.2 fl (7.5-11.1); PLATELET COUNT 305 K/MM3 (134-434); RBC 2.56 M/mm3 (3.60-5.2); RDW 16.2 % (11.6-15.6); WHITE BLOOD COUNT 7.8 K/mm3 (4.0-10.0)
[2020-07-23] MEDS: WARFARIN NA 3 MG TABLET PO SCH (17:51)
[2020-07-23] MEDS: MINERAL OIL/PET HY-PHL TOPICAL OINTMENT 454 GM JAR TP SCH (21:31)
[2020-07-23] MEDS: NYSTATIN POWDER 100,000 UNITS/GM - 15 GM TOPICAL POWDER TP SCH (21:32)
[2020-07-23] MEDS ORDERED: ZOLPIDEM TARTRATE 5 MG TABLET PO ONE (21:54)
[2020-07-23] MEDS: SACUBITRIL/VALSARTAN 49 MG-51 MG TABLET PO SCH (21:59)
[2020-07-24] MEDS: VANCOMYCIN 250 MG/5 ML ORAL SOLUTION PO SCH ×4 (00:12→18:10)
[2020-07-24] MEDS: MINERAL OIL/PET HY-PHL TOPICAL OINTMENT 454 GM JAR TP SCH ×3 (05:33→22:14)
[2020-07-24] MEDS: NYSTATIN POWDER 100,000 UNITS/GM - 15 GM TOPICAL POWDER TP SCH ×3 (05:33→22:14)
[2020-07-24] MEDS ORDERED: PT OWN MED DRAWER 7, Y5N ONE ×2 (06:09→10:01)
[2020-07-24 09:10] LABS: INR 2.05 (0.83-1.09); PROTHROMBIN TIME (PATIENT) 24.3 SEC (9.7-13.0)
[2020-07-24] MEDS ORDERED: cefTRIAXone SODIUM 1 GM VIAL ONE (10:01)
[2020-07-24] MEDS ORDERED: DEXTROSE 5%-WATER - 50 ML IVPB ONE (10:02)
[2020-07-24] MEDS: ANASTROZOLE 1 MG TABLET PO SCH (10:14)
[2020-07-24] MEDS: FUROSEMIDE 40 MG/4 ML INJECTABLE VIAL IVPUSH SCH (10:14)
[2020-07-24] MEDS: CARVEDILOL 12.5 MG TABLET (FP) PO SCH ×2 (10:14→22:15)
[2020-07-24] MEDS: ASCORBIC ACID 500 MG TABLET (FP) PO SCH (10:14)
[2020-07-24] MEDS: CEFTRIAXONE 1 GM in DEXTROSE 5%-WATER - 50 ML IVPB SCH (10:14)
[2020-07-24] MEDS: FERROUS SO4 325 MG TABLET (FP) PO SCH (10:14)
[2020-07-24] MEDS: POLYETHYLENE GLYCOL 3350 119 GM BTL PO SCH (10:15)
[2020-07-24] MEDS: SACUBITRIL/VALSARTAN 49 MG-51 MG TABLET PO SCH ×2 (10:15→22:14)
[2020-07-24] MEDS: buPROPion HCL 75 MG TABLET PO SCH ×2 (10:15→22:14)
[2020-07-24] MEDS: WARFARIN NA 3 MG TABLET PO SCH (18:10)
[2020-07-24] MEDS ORDERED: WARFARIN NA 2 MG TABLET PO SCH (18:57)
[2020-07-24] MEDS: ZOLPIDEM TARTRATE 5 MG TABLET PO PRN (22:15)
[2020-07-25] MEDS: VANCOMYCIN 250 MG/5 ML ORAL SOLUTION PO SCH ×5 (01:22→23:59)
[2020-07-25] MEDS: MINERAL OIL/PET HY-PHL TOPICAL OINTMENT 454 GM JAR TP SCH ×3 (06:27→21:37)
[2020-07-25] MEDS: NYSTATIN POWDER 100,000 UNITS/GM - 15 GM TOPICAL POWDER TP SCH ×3 (06:28→21:38)
[2020-07-25 08:55] LABS: HEMOGLOBIN 8.2 GM/dL (10.7-15.3); MCH 32.1 pg (25.7-33.7); MCHC 32.9 g/dl (32.0-36.0); MEAN CELL VOLUME 97.8 fl (80-96); MEAN PLT VOLUME 8.4 fl (7.5-11.1); PLATELET COUNT 259 K/MM3 (134-434); RBC 2.55 M/mm3 (3.60-5.2); RDW 15.8 % (11.6-15.6); WHITE BLOOD COUNT 6.1 K/mm3 (4.0-10.0)
[2020-07-25 09:25] LABS: CALCIUM 8.5 mg/dL (8.5-10.1)
[2020-07-25 09:29] LABS: CREATININE 1.5 mg/dL (0.55-1.3)
[2020-07-25] MEDS ORDERED: cefTRIAXone SODIUM 1 GM VIAL ONE (10:13)
[2020-07-25] MEDS ORDERED: PT OWN MED DRAWER 7, Y5N ONE ×2 (10:13→13:45)
[2020-07-25] MEDS ORDERED: DEXTROSE 5%-WATER - 50 ML IVPB ONE (10:14)
[2020-07-25] MEDS: ANASTROZOLE 1 MG TABLET PO SCH (10:23)
[2020-07-25] MEDS: ASCORBIC ACID 500 MG TABLET (FP) PO SCH (10:23)
[2020-07-25] MEDS: CARVEDILOL 12.5 MG TABLET (FP) PO SCH ×2 (10:23→21:35)
[2020-07-25] MEDS: FUROSEMIDE 40 MG/4 ML INJECTABLE VIAL IVPUSH SCH ×2 (10:23→10:32)
[2020-07-25] MEDS: SACUBITRIL/VALSARTAN 49 MG-51 MG TABLET PO SCH ×2 (10:23→21:35)
[2020-07-25] MEDS: FERROUS SO4 325 MG TABLET (FP) PO SCH (10:23)
[2020-07-25] MEDS: CEFTRIAXONE 1 GM in DEXTROSE 5%-WATER - 50 ML IVPB SCH ×3 (10:23→19:00)
[2020-07-25] MEDS: buPROPion HCL 75 MG TABLET PO SCH ×2 (10:23→21:35)
[2020-07-25] MEDS: POLYETHYLENE GLYCOL 3350 119 GM BTL PO SCH (10:24)
[2020-07-25] MEDS: EPLERENONE 25 MG TABLET PO SCH (13:49)
[2020-07-25 20:05] LABS: INR 1.8 (0.83-1.09); PROTHROMBIN TIME (PATIENT) 21.8 SEC (9.7-13.0)
[2020-07-25] MEDS: ZOLPIDEM TARTRATE 5 MG TABLET PO PRN (21:35)
[2020-07-26] MEDS: VANCOMYCIN 250 MG/5 ML ORAL SOLUTION PO SCH ×3 (05:34→18:15)
[2020-07-26] MEDS: NYSTATIN POWDER 100,000 UNITS/GM - 15 GM TOPICAL POWDER TP SCH ×3 (05:37→21:50)
[2020-07-26] MEDS: MINERAL OIL/PET HY-PHL TOPICAL OINTMENT 454 GM JAR TP SCH ×3 (05:38→21:50)
[2020-07-26 09:06] LABS: INR 1.7 (0.83-1.09); PROTHROMBIN TIME (PATIENT) 20.2 SEC (9.7-13.0)
[2020-07-26] MEDS ORDERED: cefTRIAXone SODIUM 1 GM VIAL ONE (09:17)
[2020-07-26] MEDS ORDERED: DEXTROSE 5%-WATER - 50 ML IVPB ONE (09:17)
[2020-07-26] MEDS ORDERED: PT OWN MED DRAWER 7, Y5N ONE ×3 (09:17→21:21)
[2020-07-26] MEDS: CEFTRIAXONE 1 GM in DEXTROSE 5%-WATER - 50 ML IVPB SCH (09:38)
[2020-07-26] MEDS: CARVEDILOL 12.5 MG TABLET (FP) PO SCH ×2 (09:39→21:50)
[2020-07-26] MEDS: EPLERENONE 25 MG TABLET PO SCH (09:39)
[2020-07-26] MEDS: ANASTROZOLE 1 MG TABLET PO SCH (09:39)
[2020-07-26] MEDS: SACUBITRIL/VALSARTAN 49 MG-51 MG TABLET PO SCH ×2 (09:39→21:50)
[2020-07-26] MEDS: ASCORBIC ACID 500 MG TABLET (FP) PO SCH (09:39)
[2020-07-26] MEDS: buPROPion HCL 75 MG TABLET PO SCH ×2 (09:40→21:50)
[2020-07-26] MEDS: FERROUS SO4 325 MG TABLET (FP) PO SCH (09:40)
[2020-07-26] MEDS: POLYETHYLENE GLYCOL 3350 119 GM BTL PO SCH (09:57)
[2020-07-26] MEDS ORDERED: EPLERENONE 25 MG TABLET PO SCH (10:00)
[2020-07-26] MEDS ORDERED: FUROSEMIDE 40 MG/4 ML INJECTABLE VIAL IVPUSH ONE (10:25)
[2020-07-26] MEDS: FUROSEMIDE 40 MG/4 ML INJECTABLE VIAL IVPUSH SCH (13:55)
[2020-07-26] MEDS: WARFARIN NA 5 MG TABLET PO SCH (18:15)
[2020-07-26] MEDS: ZOLPIDEM TARTRATE 5 MG TABLET PO PRN (21:51)
[2020-07-27] MEDS: VANCOMYCIN 250 MG/5 ML ORAL SOLUTION PO SCH ×4 (00:10→17:59)
[2020-07-27] MEDS: MINERAL OIL/PET HY-PHL TOPICAL OINTMENT 454 GM JAR TP SCH ×3 (06:47→21:27)
[2020-07-27] MEDS: NYSTATIN POWDER 100,000 UNITS/GM - 15 GM TOPICAL POWDER TP SCH ×3 (06:47→21:28)
[2020-07-27] MEDS: FUROSEMIDE 40 MG/4 ML INJECTABLE VIAL IVPUSH SCH ×2 (06:47→13:49)
[2020-07-27 08:54] LABS: INR 1.86 (0.83-1.09); PROTHROMBIN TIME (PATIENT) 22.5 SEC (9.7-13.0)
[2020-07-27 09:03] LABS: HEMATOCRIT 22.7 % (32.4-45.2); HEMOGLOBIN 7.6 GM/dL (10.7-15.3); MCH 32.5 pg (25.7-33.7); MCHC 33.5 g/dl (32.0-36.0); MEAN CELL VOLUME 96.8 fl (80-96); MEAN PLT VOLUME 8.1 fl (7.5-11.1); PLATELET COUNT 238 K/MM3 (134-434); RBC 2.34 M/mm3 (3.60-5.2); RDW 16.3 % (11.6-15.6); WHITE BLOOD COUNT 4.5 K/mm3 (4.0-10.0)
[2020-07-27 09:32] LABS: CALCIUM 8.5 mg/dL (8.5-10.1)
[2020-07-27 09:33] LABS: ALBUMIN 2.8 g/dl (3.4-5.0); BLOOD UREA NITROGEN 17.5 mg/dL (7-18); MAGNESIUM 2.2 mg/dL (1.8-2.4)
[2020-07-27 09:36] LABS: CREATININE 1.4 mg/dL (0.55-1.3)
[2020-07-27 09:37] LABS: BILIRUBIN,TOTAL 0.4 mg/dL (0.2-1)
[2020-07-27] MEDS ORDERED: PT OWN MED DRAWER 7, Y5N ONE ×3 (10:03→20:59)
[2020-07-27] MEDS: ANASTROZOLE 1 MG TABLET PO SCH (10:08)
[2020-07-27] MEDS: CARVEDILOL 12.5 MG TABLET (FP) PO SCH ×2 (10:08→21:27)
[2020-07-27] MEDS: ASCORBIC ACID 500 MG TABLET (FP) PO SCH (10:08)
[2020-07-27] MEDS: FERROUS SO4 325 MG TABLET (FP) PO SCH (10:08)
[2020-07-27] MEDS: SACUBITRIL/VALSARTAN 49 MG-51 MG TABLET PO SCH ×2 (10:09→21:28)
[2020-07-27] MEDS: EPLERENONE 25 MG TABLET PO SCH ×2 (10:09→10:13)
[2020-07-27] MEDS: buPROPion HCL 75 MG TABLET PO SCH ×2 (10:09→21:28)
[2020-07-27] MEDS: POLYETHYLENE GLYCOL 3350 119 GM BTL PO SCH (10:09)
[2020-07-27] MEDS: WARFARIN NA 5 MG TABLET PO SCH (17:57)
[2020-07-27] MEDS ORDERED: WARFARIN NA 1 MG TABLET PO ONE (18:00)
[2020-07-28] MEDS: VANCOMYCIN 250 MG/5 ML ORAL SOLUTION PO SCH ×4 (00:05→18:55)
[2020-07-28] MEDS ORDERED: PT OWN MED DRAWER 7, Y5N ONE ×3 (05:21→20:50)
[2020-07-28] MEDS: MINERAL OIL/PET HY-PHL TOPICAL OINTMENT 454 GM JAR TP SCH ×2 (05:50→14:51)
[2020-07-28] MEDS: FUROSEMIDE 40 MG/4 ML INJECTABLE VIAL IVPUSH SCH (05:50)
[2020-07-28] MEDS: NYSTATIN POWDER 100,000 UNITS/GM - 15 GM TOPICAL POWDER TP SCH ×2 (05:50→14:51)
[2020-07-28 07:58] LABS: BASO % 0.6 % (0-2.0); EOS % 2.9 % (0-4.5); HEMATOCRIT 22.4 % (32.4-45.2); HEMOGLOBIN 7.7 GM/dL (10.7-15.3); LYMPH % 21.1 % (8-40); MCHC 34.2 g/dl (32.0-36.0); MEAN CELL VOLUME 96.4 fl (80-96); MEAN PLT VOLUME 8.5 fl (7.5-11.1); MONO % 10.8 % (3.8-10.2); NEUT % 64.6 % (42.8-82.8); PLATELET COUNT 226 K/MM3 (134-434); RBC 2.33 M/mm3 (3.60-5.2); RDW 16.1 % (11.6-15.6); WHITE BLOOD COUNT 5.2 K/mm3 (4.0-10.0)
[2020-07-28 08:04] LABS: INR 1.8 (0.83-1.09); PROTHROMBIN TIME (PATIENT) 21.8 SEC (9.7-13.0)
[2020-07-28 08:20] LABS: ALBUMIN 2.7 g/dl (3.4-5.0); CALCIUM 8.2 mg/dL (8.5-10.1)
[2020-07-28 08:21] LABS: BLOOD UREA NITROGEN 18.3 mg/dL (7-18)
[2020-07-28 08:24] LABS: CREATININE 1.6 mg/dL (0.55-1.3)
[2020-07-28 08:25] LABS: BILIRUBIN,TOTAL 0.2 mg/dL (0.2-1); TOT PROT 5.9 g/dl (6.4-8.2)
[2020-07-28] MEDS: EPLERENONE 25 MG TABLET PO SCH (11:03)
[2020-07-28] MEDS: SACUBITRIL/VALSARTAN 49 MG-51 MG TABLET PO SCH (11:03)
[2020-07-28] MEDS: FERROUS SO4 325 MG TABLET (FP) PO SCH (11:03)
[2020-07-28] MEDS: buPROPion HCL 75 MG TABLET PO SCH ×2 (11:03→23:45)
[2020-07-28] MEDS: ANASTROZOLE 1 MG TABLET PO SCH (11:03)
[2020-07-28] MEDS: CARVEDILOL 12.5 MG TABLET (FP) PO SCH (11:03)
[2020-07-28] MEDS: ASCORBIC ACID 500 MG TABLET (FP) PO SCH (11:03)
[2020-07-28] MEDS: POLYETHYLENE GLYCOL 3350 119 GM BTL PO SCH (11:03)
[2020-07-28] MEDS ORDERED: WARFARIN NA 2 MG TABLET PO ONE (18:00)
[2020-07-28] MEDS: WARFARIN NA 5 MG TABLET PO SCH (18:52)
[2020-07-28] MEDS ORDERED: ZOLPIDEM TARTRATE 5 MG TABLET PO PRN (23:56)
[2020-07-29] MEDS: CARVEDILOL 12.5 MG TABLET (FP) PO SCH ×3 (00:11→21:48)
[2020-07-29] MEDS: SACUBITRIL/VALSARTAN 49 MG-51 MG TABLET PO SCH ×3 (00:11→21:48)
[2020-07-29] MEDS: NYSTATIN POWDER 100,000 UNITS/GM - 15 GM TOPICAL POWDER TP SCH ×4 (00:12→21:47)
[2020-07-29] MEDS: MINERAL OIL/PET HY-PHL TOPICAL OINTMENT 454 GM JAR TP SCH ×4 (00:12→21:47)
[2020-07-29] MEDS: VANCOMYCIN 250 MG/5 ML ORAL SOLUTION PO SCH ×5 (00:14→23:52)
[2020-07-29 07:54] LABS: INR 2.16 (0.83-1.09); PROTHROMBIN TIME (PATIENT) 25.5 SEC (9.7-13.0)
[2020-07-29 08:07] LABS: CALCIUM 8.3 mg/dL (8.5-10.1)
[2020-07-29 08:08] LABS: BLOOD UREA NITROGEN 26.1 mg/dL (7-18)
[2020-07-29 08:11] LABS: CREATININE 1.5 mg/dL (0.55-1.3)
[2020-07-29] MEDS ORDERED: PT OWN MED DRAWER 7, Y5N ONE ×6 (09:12→20:31)
[2020-07-29] MEDS: POLYETHYLENE GLYCOL 3350 119 GM BTL PO SCH (09:19)
[2020-07-29] MEDS: FERROUS SO4 325 MG TABLET (FP) PO SCH (09:25)
[2020-07-29] MEDS: EPLERENONE 25 MG TABLET PO SCH (09:25)
[2020-07-29] MEDS: buPROPion HCL 75 MG TABLET PO SCH ×2 (09:25→18:06)
[2020-07-29] MEDS: ANASTROZOLE 1 MG TABLET PO SCH (09:25)
[2020-07-29] MEDS: ASCORBIC ACID 500 MG TABLET (FP) PO SCH (09:25)
[2020-07-29] MEDS ORDERED: FUROSEMIDE 40 MG/4 ML INJECTABLE VIAL IVPUSH SCH (10:00)
[2020-07-29] MEDS ORDERED: POTASSIUM CHLORIDE 20 MEQ, POTASSIUM CHLORIDE 10 MEQ PO ONE (14:45)
[2020-07-29] MEDS ORDERED: POTASSIUM CHLORIDE TABS 20 MEQ TABLET.ER (FP) PO ONE (15:59)
[2020-07-29] MEDS ORDERED: POTASSIUM CHLORIDE TABS 10 MEQ TABLET.ER (FP) ONE (15:59)
[2020-07-29] MEDS: WARFARIN NA 5 MG TABLET PO SCH (18:06)
[2020-07-29] MEDS: ZOLPIDEM TARTRATE 5 MG TABLET PO PRN (22:00)
[2020-07-30] MEDS: VANCOMYCIN 250 MG/5 ML ORAL SOLUTION PO SCH ×4 (06:14→23:14)
[2020-07-30] MEDS: MINERAL OIL/PET HY-PHL TOPICAL OINTMENT 454 GM JAR TP SCH ×3 (06:14→23:15)
[2020-07-30] MEDS: NYSTATIN POWDER 100,000 UNITS/GM - 15 GM TOPICAL POWDER TP SCH ×3 (06:15→23:15)
[2020-07-30] MEDS ORDERED: PT OWN MED DRAWER 7, Y5N ONE ×2 (06:17→21:42)
[2020-07-30] MEDS: buPROPion HCL 75 MG TABLET PO SCH ×2 (06:41→15:57)
[2020-07-30 08:08] LABS: BASO % 0.5 % (0-2.0); EOS % 2.6 % (0-4.5); HEMATOCRIT 22.1 % (32.4-45.2); HEMOGLOBIN 7.3 GM/dL (10.7-15.3); MCH 32.2 pg (25.7-33.7); MCHC 32.9 g/dl (32.0-36.0); MEAN CELL VOLUME 97.7 fl (80-96); MEAN PLT VOLUME 8.5 fl (7.5-11.1); NEUT % 70.9 % (42.8-82.8); PLATELET COUNT 229 K/MM3 (134-434); RBC 2.26 M/mm3 (3.60-5.2); RDW 16.1 % (11.6-15.6); WHITE BLOOD COUNT 6.2 K/mm3 (4.0-10.0)
[2020-07-30 08:20] LABS: INR 2.51 (0.83-1.09); PROTHROMBIN TIME (PATIENT) 29.6 SEC (9.7-13.0)
[2020-07-30 08:33] LABS: ALBUMIN 2.7 g/dl (3.4-5.0)
[2020-07-30 08:34] LABS: BLOOD UREA NITROGEN 28.8 mg/dL (7-18); CALCIUM 8.3 mg/dL (8.5-10.1)
[2020-07-30 08:37] LABS: CREATININE 1.8 mg/dL (0.55-1.3)
[2020-07-30 08:38] LABS: BILIRUBIN,TOTAL 0.3 mg/dL (0.2-1); TOT PROT 5.9 g/dl (6.4-8.2)
[2020-07-30] MEDS ORDERED: FUROSEMIDE 40 MG/4 ML INJECTABLE VIAL IVPUSH SCH (10:00)
[2020-07-30] MEDS ORDERED: FUROSEMIDE 40 MG TABLET (FP) PO SCH (10:00)
[2020-07-30] MEDS: FERROUS SO4 325 MG TABLET (FP) PO SCH (10:16)
[2020-07-30] MEDS: SACUBITRIL/VALSARTAN 49 MG-51 MG TABLET PO SCH ×2 (10:16→23:15)
[2020-07-30] MEDS: CARVEDILOL 12.5 MG TABLET (FP) PO SCH ×2 (10:16→23:12)
[2020-07-30] MEDS: ANASTROZOLE 1 MG TABLET PO SCH (10:17)
[2020-07-30] MEDS: ASCORBIC ACID 500 MG TABLET (FP) PO SCH (10:17)
[2020-07-30] MEDS: POLYETHYLENE GLYCOL 3350 119 GM BTL PO SCH (10:17)
[2020-07-30] MEDS: EPLERENONE 25 MG TABLET PO SCH (10:18)
[2020-07-30] MEDS: FUROSEMIDE 40 MG TABLET (FP) PO SCH (12:15)
[2020-07-30] MEDS: WARFARIN NA 5 MG TABLET PO SCH (17:12)
[2020-07-30] MEDS: ZOLPIDEM TARTRATE 5 MG TABLET PO PRN (23:16)
[2020-07-31] MEDS: NYSTATIN POWDER 100,000 UNITS/GM - 15 GM TOPICAL POWDER TP SCH ×3 (06:27→21:20)
[2020-07-31] MEDS: MINERAL OIL/PET HY-PHL TOPICAL OINTMENT 454 GM JAR TP SCH ×3 (06:27→21:20)
[2020-07-31] MEDS: VANCOMYCIN 250 MG/5 ML ORAL SOLUTION PO SCH ×3 (06:28→17:29)
[2020-07-31] MEDS: buPROPion HCL 75 MG TABLET PO SCH ×2 (06:28→16:39)
[2020-07-31 08:40] LABS: BASO % 0.4 % (0-2.0); EOS % 2.6 % (0-4.5); HEMATOCRIT 23.5 % (32.4-45.2); HEMOGLOBIN 7.7 GM/dL (10.7-15.3); LYMPH % 14.7 % (8-40); MCH 32.3 pg (25.7-33.7); MCHC 32.8 g/dl (32.0-36.0); MEAN CELL VOLUME 98.5 fl (80-96); MEAN PLT VOLUME 8.8 fl (7.5-11.1); MONO % 7.1 % (3.8-10.2); NEUT % 75.2 % (42.8-82.8); PLATELET COUNT 231 K/MM3 (134-434); RBC 2.38 M/mm3 (3.60-5.2); RDW 16.4 % (11.6-15.6); WHITE BLOOD COUNT 7.3 K/mm3 (4.0-10.0)
[2020-07-31 08:59] LABS: INR 2.64 (0.83-1.09); PROTHROMBIN TIME (PATIENT) 31.6 SEC (9.7-13.0)
[2020-07-31] MEDS ORDERED: PT OWN MED DRAWER 7, Y5N ONE ×5 (09:11→20:55)
[2020-07-31] MEDS: ASCORBIC ACID 500 MG TABLET (FP) PO SCH (09:20)
[2020-07-31] MEDS: CARVEDILOL 12.5 MG TABLET (FP) PO SCH ×2 (09:21→21:18)
[2020-07-31] MEDS: FERROUS SO4 325 MG TABLET (FP) PO SCH (09:21)
[2020-07-31] MEDS: EPLERENONE 25 MG TABLET PO SCH (09:21)
[2020-07-31] MEDS: FUROSEMIDE 40 MG TABLET (FP) PO SCH (09:21)
[2020-07-31] MEDS: SACUBITRIL/VALSARTAN 49 MG-51 MG TABLET PO SCH ×2 (09:21→21:18)
[2020-07-31] MEDS: ANASTROZOLE 1 MG TABLET PO SCH (09:21)
[2020-07-31] MEDS: POLYETHYLENE GLYCOL 3350 119 GM BTL PO SCH (09:21)
[2020-07-31] MEDS ORDERED: IRON SUCROSE INJECTION 200 MG in SODIUM CHLORIDE 90 ML IVPB ONE (09:39)
[2020-07-31] MEDS ORDERED: WARFARIN NA 2 MG TABLET PO SCH (18:00)
[2020-07-31] MEDS: ZOLPIDEM TARTRATE 5 MG TABLET PO PRN (21:18)
[2020-08-01] MEDS: VANCOMYCIN 250 MG/5 ML ORAL SOLUTION PO SCH ×4 (00:19→17:13)
[2020-08-01] MEDS ORDERED: PT OWN MED DRAWER 7, Y5N ONE ×3 (05:17→16:56)
[2020-08-01] MEDS: MINERAL OIL/PET HY-PHL TOPICAL OINTMENT 454 GM JAR TP SCH ×2 (05:59→13:58)
[2020-08-01] MEDS: NYSTATIN POWDER 100,000 UNITS/GM - 15 GM TOPICAL POWDER TP SCH ×2 (06:00→13:59)
[2020-08-01] MEDS: buPROPion HCL 75 MG TABLET PO SCH ×2 (06:00→17:12)
[2020-08-01 08:59] LABS: HEMATOCRIT 21.7 % (32.4-45.2); HEMOGLOBIN 7.2 GM/dL (10.7-15.3); INR 2.8 (0.83-1.09); MCH 32.4 pg (25.7-33.7); MCHC 33.4 g/dl (32.0-36.0); MEAN PLT VOLUME 8.2 fl (7.5-11.1); PLATELET COUNT 234 K/MM3 (134-434); PROTHROMBIN TIME (PATIENT) 32.9 SEC (9.7-13.0); RBC 2.23 M/mm3 (3.60-5.2); RDW 16.2 % (11.6-15.6); WHITE BLOOD COUNT 6.4 K/mm3 (4.0-10.0)
[2020-08-01] MEDS: FUROSEMIDE 40 MG TABLET (FP) PO SCH (09:52)
[2020-08-01] MEDS: SACUBITRIL/VALSARTAN 49 MG-51 MG TABLET PO SCH (09:52)
[2020-08-01] MEDS: CARVEDILOL 12.5 MG TABLET (FP) PO SCH (09:52)
[2020-08-01] MEDS: FERROUS SO4 325 MG TABLET (FP) PO SCH (09:52)
[2020-08-01] MEDS: ANASTROZOLE 1 MG TABLET PO SCH (09:52)
[2020-08-01] MEDS: ASCORBIC ACID 500 MG TABLET (FP) PO SCH (09:53)
[2020-08-01] MEDS: POLYETHYLENE GLYCOL 3350 119 GM BTL PO SCH (09:53)
[2020-08-01] MEDS: EPLERENONE 25 MG TABLET PO SCH (09:53)
[2020-08-01 15:08] VITALS: BP 107/48; PULSE 79; TEMP 98.3
[2020-08-01] MEDS ORDERED: WARFARIN NA 3 MG TABLET PO SCH (18:00)
== END 2020-08-01 20:25 | DRG 291 ==
LOC: JER 13:29 → JERBED 16:44 → J5S 20:27 → J8W 07-22 13:57
PROVIDERS: ADMIT Internal Medicine; ATTEND Internal Medicine
DX: I13.0 Hypertensive heart and chronic kidney disease with heart failure and stage 1 through stage 4 chronic kidney disease, or unspecified chronic kidney disease (principal); I50.23 Acute on chronic systolic (congestive) heart failure; J18.9 Pneumonia, unspecified organism; N17.9 Acute kidney failure, unspecified; N18.32 Chronic kidney disease, stage 3b; E11.22 Type 2 diabetes mellitus with diabetic chronic kidney disease; H54.40 Blindness, one eye, unspecified eye; J44.9 Chronic obstructive pulmonary disease, unspecified; I42.8 Other cardiomyopathies; E78.00 Pure hypercholesterolemia, unspecified; K21.9 Gastro-esophageal reflux disease without esophagitis; F32.9 Major depressive disorder, single episode, unspecified; R91.8 Other nonspecific abnormal finding of lung field; H54.7 Unspecified visual loss; I70.1 Atherosclerosis of renal artery; D64.9 Anemia, unspecified; I08.0 Rheumatic disorders of both mitral and aortic valves; E66.9 Obesity, unspecified; Z68.32 Body mass index [BMI] 32.0-32.9, adult; K57.90 Diverticulosis of intestine, part unspecified, without perforation or abscess without bleeding; Z85.828 Personal history of other malignant neoplasm of skin; Z85.3 Personal history of malignant neoplasm of breast; Z86.73 Personal history of transient ischemic attack (TIA), and cerebral infarction without residual deficits; Z79.01 Long term (current) use of anticoagulants
CPT/HCPCS: 36415; 36430; 71045-TC-FY; 71250-TC; 80048; 80053; 81003; 82272; 82550; 82607; 82728; 82746; 82962; 83036; 83540; 83550; 83735; 83880; 83921; 84443; 84484; 85025; 85027; 85610; 85730; 86850; 86900; 86901; 86922; 87899; 93005; 93010; 93306-TC; 97116-GP; 97161-GP; 99285-25; C9803; J1756; P9058; U0003; U0005

== ENCOUNTER 2020-09-20 16:51 | Inpatient (IN) | payer OTHER ==
[2020-09-20] MEDS ORDERED: LACTATED RINGERS SOLUTION 1000 ML INFUS.BAG IV ONE (18:27)
[2020-09-20] MEDS ORDERED: ONDANSETRON 4 MG/2 ML VIAL IVPUSH ONE (18:27)
[2020-09-20 20:14] LABS: BASO % 0.3 % (0-2.0); EOS % 0.7 % (0-4.5); HEMOGLOBIN 11.1 GM/dL (10.7-15.3); LYMPH % 13.6 % (8-40); MCH 31.9 pg (25.7-33.7); MCHC 33.6 g/dl (32.0-36.0); MEAN CELL VOLUME 94.8 fl (80-96); MEAN PLT VOLUME 8.2 fl (7.5-11.1); MONO % 7.7 % (3.8-10.2); NEUT % 77.7 % (42.8-82.8); PLATELET COUNT 298 10^3/uL (134-434); RBC 3.49 M/mm3 (3.60-5.2); RDW 15.7 % (11.6-15.6); WHITE BLOOD COUNT 7.5 K/mm3 (4.0-10.0)
[2020-09-20] MEDS ORDERED: ONDANSETRON 4 MG/2 ML VIAL ONE (20:17)
[2020-09-20 20:21] LABS: CHLORIDE 110 mmol/L (98-107); SODIUM 140 mmol/L (136-145)
[2020-09-20 20:24] LABS: ALBUMIN 3.5 g/dl (3.4-5.0); ANION GAP 11 MMOL/L (8-16); BLOOD UREA NITROGEN 41.4 mg/dL (7-18); CALCIUM 9.2 mg/dL (8.5-10.1); CO2 19 mmol/L (21-32); GLUCOSE,RANDOM 109 mg/dL (74-106); LIPASE 54 U/L (73-393)
[2020-09-20 20:25] LABS: MAGNESIUM 2.3 mg/dL (1.8-2.4)
[2020-09-20 20:27] LABS: CREATININE 2.1 mg/dL (0.55-1.3); INR 2.75 (0.83-1.09); PROTHROMBIN TIME (PATIENT) 32.8 SEC (9.7-13.0); SGOT/AST 14 U/L (15-37); SGPT/ALT 16 U/L (13-61)
[2020-09-20 20:28] LABS: BILIRUBIN,TOTAL 0.2 mg/dL (0.2-1); TOT PROT 7.3 g/dl (6.4-8.2)
[2020-09-20 20:30] LABS: ACTIVATED PTT 50.1 SECONDS (25.2-36.5); ALK PHOS 135 U/L (45-117)
[2020-09-20] MEDS ORDERED: morphine CARPU-JECT 4 MG/1 ML DISP.SYRIN IVPUSH ONE (21:13)
[2020-09-20] MEDS ORDERED: morphine SULFATE 4 MG/ML VIAL ONE (21:27)
[2020-09-21] MEDS ORDERED: ONDANSETRON 4 MG TABLET PO PRN ×2 (02:38→13:24)
[2020-09-21] MEDS ORDERED: ONDANSETRON *ODT* 4 MG TABLET ONE (03:00)
[2020-09-21] MEDS ORDERED: VANCOMYCIN 250 MG/5 ML ORAL SOLUTION PO ONE (03:57)
[2020-09-21] MEDS ORDERED: SODIUM CHLORIDE 1,000 ML IV SCH ×2 (04:00→17:01)
[2020-09-21] MEDS ORDERED: PIPERACILLIN/TAZOB 4.5 GM 4.5 GM in DEXTROSE 5%-WATER 100 ML IVPB ONE (05:12)
[2020-09-21] MEDS ORDERED: VANCOMYCIN 250 MG/5 ML ORAL SOLUTION PO SCH ×2 (06:00→12:00)
[2020-09-21] MEDS ORDERED: PIPERACILLIN/TAZOB 4.5 GM 4.5 GM/100 ML BAG IVPB ONE (06:38)
[2020-09-21] MEDS ORDERED: MUPIROCIN 2% TOPICAL OINTMENT FOR DECOLONIZATION NS SCH ×2 (10:00→22:00)
[2020-09-21 10:39] VITALS: BMI 30.5
[2020-09-21] MEDS: INSULIN SLIDING SCALE (NOVOLOG) 1 VIAL SQ SCH ×3 (11:22→22:52)
[2020-09-21] MEDS ORDERED: ACETAMINOPHEN 325 MG TABLET (FP) PO PRN (13:24)
[2020-09-21] MEDS ORDERED: ALBUTEROL SO4 0.083% IH SOL 2.5 MG/3 ML VIAL.NEB. NEB PRN (13:24)
[2020-09-21] MEDS: NYSTATIN POWDER 100,000 UNITS/GM - 15 GM TOPICAL POWDER TP SCH ×2 (16:35→22:56)
[2020-09-21] MEDS ORDERED: SODIUM CHLORIDE 0.45% 1,000 ML IV SCH (17:15)
[2020-09-21] MEDS ORDERED: ZOLPIDEM TARTRATE 5 MG TABLET PO SCH (22:00)
[2020-09-21] MEDS ORDERED: FUROSEMIDE 20 MG TABLET (FP) PO SCH (22:00)
[2020-09-21] MEDS ORDERED: CHLORHEXIDINE GLUCONATE 4% CLEANSER FOR DECOLONIZATION TP SCH ×2 (22:00)
[2020-09-22 06:13] VITALS: BP 148/70; PULSE 69; TEMP 98.1
[2020-09-22] MEDS: NYSTATIN POWDER 100,000 UNITS/GM - 15 GM TOPICAL POWDER TP SCH (06:18)
[2020-09-22] MEDS: INSULIN SLIDING SCALE (NOVOLOG) 1 VIAL SQ SCH (06:19)
[2020-09-22] MEDS ORDERED: FUROSEMIDE 40 MG TABLET (FP) PO SCH (07:00)
[2020-09-22 07:20] LABS: BASO % 0.2 % (0-2.0); EOS % 1.9 % (0-4.5); HEMATOCRIT 32.7 % (32.4-45.2); HEMOGLOBIN 10.8 GM/dL (10.7-15.3); LYMPH % 13.1 % (8-40); MCH 32.2 pg (25.7-33.7); MCHC 33.1 g/dl (32.0-36.0); MEAN CELL VOLUME 97.1 fl (80-96); MEAN PLT VOLUME 8.5 fl (7.5-11.1); MONO % 7.6 % (3.8-10.2); NEUT % 77.2 % (42.8-82.8); PLATELET COUNT 252 10^3/uL (134-434); RBC 3.37 M/mm3 (3.60-5.2); RDW 15.8 % (11.6-15.6); WHITE BLOOD COUNT 6.8 K/mm3 (4.0-10.0)
[2020-09-22 07:42] LABS: BLOOD UREA NITROGEN 30.2 mg/dL (7-18)
[2020-09-22 07:44] LABS: CALCIUM 8.4 mg/dL (8.5-10.1); CREATININE 1.6 mg/dL (0.55-1.3)
[2020-09-22 07:45] LABS: PHOSPHOROUS 3.8 mg/dL (2.5-4.9)
[2020-09-22] MEDS ORDERED: ANASTROZOLE 1 MG TABLET PO SCH (10:00)
[2020-09-22] MEDS ORDERED: ASCORBIC ACID 500 MG TABLET (FP) PO SCH (10:00)
[2020-09-22] MEDS ORDERED: buPROPion HCL 75 MG TABLET PO SCH (10:00)
[2020-09-22] MEDS ORDERED: FERROUS SO4 325 MG TABLET (FP) PO SCH (10:00)
== END 2020-09-22 07:50 | disposition short-term general hospital (02) | DRG 389 ==
LOC: JER 16:51 → JERBED 09-21 05:08 → JICU 09-21 08:50
PROVIDERS: ADMIT Internal Medicine; ATTEND Internal Medicine
PROC: 0DCN8ZZ Extirpation of Matter from Sigmoid Colon, Via Natural or Artificial Opening Endoscopic (ICD-10-PCS; 2020-09-21)
PROC: 0D9670Z Drainage of Stomach with Drainage Device, Via Natural or Artificial Opening (ICD-10-PCS; principal; 2020-09-21 15:45)
DX: K56.609 Unspecified intestinal obstruction, unspecified as to partial versus complete obstruction (principal); K59.31 Toxic megacolon; I13.0 Hypertensive heart and chronic kidney disease with heart failure and stage 1 through stage 4 chronic kidney disease, or unspecified chronic kidney disease; I50.42 Chronic combined systolic (congestive) and diastolic (congestive) heart failure; N17.9 Acute kidney failure, unspecified; K56.2 Volvulus; H54.40 Blindness, one eye, unspecified eye; J44.9 Chronic obstructive pulmonary disease, unspecified; E11.22 Type 2 diabetes mellitus with diabetic chronic kidney disease; R10.9 Unspecified abdominal pain; N18.32 Chronic kidney disease, stage 3b; R19.7 Diarrhea, unspecified; E78.5 Hyperlipidemia, unspecified; K21.9 Gastro-esophageal reflux disease without esophagitis; R14.0 Abdominal distension (gaseous); I25.10 Atherosclerotic heart disease of native coronary artery without angina pectoris; K64.8 Other hemorrhoids; K57.90 Diverticulosis of intestine, part unspecified, without perforation or abscess without bleeding; I70.1 Atherosclerosis of renal artery; D12.5 Benign neoplasm of sigmoid colon; F32.9 Major depressive disorder, single episode, unspecified; H54.7 Unspecified visual loss; Z86.73 Personal history of transient ischemic attack (TIA), and cerebral infarction without residual deficits; Z86.19 Personal history of other infectious and parasitic diseases; Z85.3 Personal history of malignant neoplasm of breast; Z85.828 Personal history of other malignant neoplasm of skin
CPT/HCPCS: 36415; 71045-TC-FY; 74018-TC-FY; 74176-TC; 80048; 80053; 82150; 82962; 83605; 83690; 83735; 84100; 84484; 85025; 85610; 85730; 86850; 86900; 86901; 87086; 87186; 93005; 93010; 99285-25; C9803; U0003; U0005

== ENCOUNTER 2020-11-09 17:10 | Inpatient (IN) | payer OTHER ==
[2020-11-09 20:31] LABS: HEMATOCRIT 20.8 % (32.4-45.2); MCH 32.6 pg (25.7-33.7); MCHC 33.9 g/dl (32.0-36.0); MEAN CELL VOLUME 96.1 fl (80-96); MEAN PLT VOLUME 9.2 fl (7.5-11.1); PLATELET COUNT 428 10^3/uL (134-434); RBC 2.16 M/mm3 (3.60-5.2); RDW 15.3 % (11.6-15.6)
[2020-11-09 20:35] LABS: INR 1.19 (0.83-1.09); PROTHROMBIN TIME (PATIENT) 14.6 SEC (9.7-13.0)
[2020-11-09 20:37] LABS: ACTIVATED PTT 18.7 SECONDS (25.2-36.5)
[2020-11-09 20:47] LABS: CHLORIDE 97 mmol/L (98-107); SODIUM 135 mmol/L (136-145)
[2020-11-09 20:49] LABS: CALCIUM 7.9 mg/dL (8.5-10.1); GLUCOSE,RANDOM 84 mg/dL (74-106)
[2020-11-09 20:50] LABS: ALBUMIN 1.8 g/dl (3.4-5.0); ANION GAP 9 MMOL/L (8-16); CO2 28 mmol/L (21-32)
[2020-11-09 20:52] LABS: CREATININE 2.2 mg/dL (0.55-1.3)
[2020-11-09 20:53] LABS: SGOT/AST 17 U/L (15-37); SGPT/ALT 11 U/L (13-61)
[2020-11-09 20:54] LABS: BILIRUBIN,TOTAL 0.4 mg/dL (0.2-1); WHITE BLOOD COUNT 20.1 K/mm3 (4.0-10.0)
[2020-11-09 20:55] LABS: ALK PHOS 168 U/L (45-117)
[2020-11-09 20:58] LABS: ANISOCYTOSIS 1+; MACROCYTOSIS 1+; PLATELET ESTIMATE NORMAL
[2020-11-10 05:40] VITALS: BMI 28.5
[2020-11-10] MEDS ORDERED: POLYETHYLENE GLYCOL (HEALTHYLAX) 3350 17 GM PACKET PO SCH (10:00)
[2020-11-10] MEDS ORDERED: POLYETHYLENE GLYCOL 3350 119 GM BTL PO SCH (10:00)
[2020-11-10] MEDS ORDERED: SACUBITRIL/VALSARTAN 24 MG-26 MG TABLET PO SCH (10:00)
[2020-11-10] MEDS ORDERED: CARVEDILOL 6.25 MG TABLET (FP) PO SCH (10:00)
[2020-11-10] MEDS: ANASTROZOLE 1 MG TABLET PO SCH (12:12)
[2020-11-10] MEDS: buPROPion HCL 75 MG TABLET PO SCH ×2 (12:12→21:30)
[2020-11-10] MEDS ORDERED: LOPERAMIDE HCL 2 MG CAPSULE PO SCH (13:01)
[2020-11-10] MEDS: VANCOMYCIN 250 MG/5 ML ORAL SOLUTION PO SCH ×3 (14:13→23:11)
[2020-11-10] MEDS: DEXTROSE 5%-NORMAL SALINE 1,000 ML IV SCH (14:17)
[2020-11-10 15:34] LABS: EPI CELLS >36 /uL (0-25.1); HYALINE CASTS 3 /uL (0-3.1); PH,URINE 6.5 (5.0-8.0); URINE APPEARANCE TURBID; URINE BACTERIA >9,000 /uL (0-1359); URINE BILIRUBIN NEGATIVE (NEGATIVE); URINE COLOR YELLOW; URINE GLUCOSE (UA) NEGATIVE (NEGATIVE); URINE KETONE NEGATIVE (NEGATIVE); URINE LEUK ESTERASE 3+ (NEGATIVE); URINE NITRITE NEGATIVE (NEGATIVE); URINE PROTEIN NEGATIVE (NEGATIVE); URINE UROBILINOGEN 0.2 mg/dL (0.2-1.0); URINE WBC 1740 /uL (0-25.8)
[2020-11-10 15:37] LABS: URINE RBC 49.6 /uL (0-23.9); YEAST NON SEEN (NEGATIVE)
[2020-11-10] MEDS ORDERED: CEFTRIAXONE 1 GM in DEXTROSE 5%-WATER - 50 ML IVPB ONE (16:38)
[2020-11-10] MEDS ORDERED: cefTRIAXone SODIUM 1 GM VIAL ONE (17:01)
[2020-11-10] MEDS ORDERED: DEXTROSE 5%-WATER - 50 ML IVPB ONE (17:01)
[2020-11-10] MEDS: AMINO ACIDS/PROTEIN HYDROLYS 30 ML LIQUID.PKT PO SCH (17:14)
[2020-11-10] MEDS ORDERED: WARFARIN NA 5 MG TABLET PO SCH (18:00)
[2020-11-10] MEDS ORDERED: ZOLPIDEM TARTRATE 5 MG TABLET PO ONE (22:00)
[2020-11-11] MEDS: VANCOMYCIN 250 MG/5 ML ORAL SOLUTION PO SCH ×3 (05:04→17:37)
[2020-11-11] MEDS: AMINO ACIDS/PROTEIN HYDROLYS 30 ML LIQUID.PKT PO SCH ×3 (09:00→16:39)
[2020-11-11] MEDS ORDERED: PT OWN MED DRAWER 7, Y5N ONE ×2 (09:24→10:04)
[2020-11-11] MEDS: buPROPion HCL 75 MG TABLET PO SCH (09:34)
[2020-11-11] MEDS: ANASTROZOLE 1 MG TABLET PO SCH (09:34)
[2020-11-11 09:49] LABS: HEMATOCRIT 24.4 % (32.4-45.2); HEMOGLOBIN 8.3 GM/dL (10.7-15.3); MCH 31.9 pg (25.7-33.7); MCHC 34.1 g/dl (32.0-36.0); MEAN CELL VOLUME 93.7 fl (80-96); MEAN PLT VOLUME 8.2 fl (7.5-11.1); PLATELET COUNT 407 10^3/uL (134-434); RDW 16.6 % (11.6-15.6); WHITE BLOOD COUNT 8.7 K/mm3 (4.0-10.0)
[2020-11-11 09:55] LABS: INR 1.33 (0.83-1.09); PROTHROMBIN TIME (PATIENT) 16.2 SEC (9.7-13.0)
[2020-11-11 10:17] LABS: CALCIUM 8.4 mg/dL (8.5-10.1)
[2020-11-11 10:18] LABS: ALBUMIN 1.8 g/dl (3.4-5.0); BLOOD UREA NITROGEN 45.4 mg/dL (7-18)
[2020-11-11 10:21] LABS: CREATININE 1.7 mg/dL (0.55-1.3)
[2020-11-11 10:23] LABS: BILIRUBIN,TOTAL 0.5 mg/dL (0.2-1); TOT PROT 6.7 g/dl (6.4-8.2)
[2020-11-11] MEDS ORDERED: LOPERAMIDE HCL 2 MG CAPSULE PO SCH (10:30)
[2020-11-11] MEDS: DEXTROSE 5%-NORMAL SALINE 1,000 ML IV SCH (13:31)
[2020-11-11] MEDS ORDERED: ZOLPIDEM TARTRATE 5 MG TABLET PO ONE (21:17)
[2020-11-12 06:17] VITALS: BP 123/63; PULSE 90; TEMP 98
[2020-11-12] MEDS ORDERED: buPROPion HCL 75 MG TABLET PO SCH (10:00)
[2020-11-12] MEDS ORDERED: CEFTRIAXONE 1 GM in DEXTROSE 5%-WATER - 50 ML IVPB SCH (10:00)
== END 2020-11-12 05:27 | disposition short-term general hospital (02) | DRG 812 ==
LOC: JER 17:10 → JERBED 21:53 → J5S 11-10 05:29
PROVIDERS: ADMIT Internal Medicine; ATTEND Internal Medicine
PROC: 30233N1 Transfusion of Nonautologous Red Blood Cells into Peripheral Vein, Percutaneous Approach (ICD-10-PCS; principal; 2020-11-09)
DX: D64.9 Anemia, unspecified (principal); K56.609 Unspecified intestinal obstruction, unspecified as to partial versus complete obstruction; I42.0 Dilated cardiomyopathy; I13.0 Hypertensive heart and chronic kidney disease with heart failure and stage 1 through stage 4 chronic kidney disease, or unspecified chronic kidney disease; I50.22 Chronic systolic (congestive) heart failure; R19.7 Diarrhea, unspecified; N18.30 Chronic kidney disease, stage 3 unspecified; L89.152 Pressure ulcer of sacral region, stage 2; K21.9 Gastro-esophageal reflux disease without esophagitis; R10.11 Right upper quadrant pain; D72.829 Elevated white blood cell count, unspecified; I34.0 Nonrheumatic mitral (valve) insufficiency; E03.9 Hypothyroidism, unspecified; E11.22 Type 2 diabetes mellitus with diabetic chronic kidney disease; J44.9 Chronic obstructive pulmonary disease, unspecified; E86.0 Dehydration
CPT/HCPCS: 36415; 36430; 36511; 71045-TC-FY; 71250-TC; 74176-TC; 80053; 81003; 82272; 82550; 82668; 82962; 83036; 83735; 84439; 84443; 84484; 85025; 85027; 85610; 85730; 86850; 86900; 86901; 86922; 87324; 87449; 93005; 93010; 99285-25; C9803; P9038; P9058; U0003; U0005

== ENCOUNTER 2020-11-27 12:47 | Inpatient (IN) | payer OTHER ==
[2020-11-27 15:05] LABS: BASO % 0.2 % (0-2.0); MCH 31.1 pg (25.7-33.7); MCHC 33.5 g/dl (32.0-36.0); MEAN PLT VOLUME 7.6 fl (7.5-11.1); MONO % 7.1 % (3.8-10.2); NEUT % 80.7 % (42.8-82.8); PLATELET COUNT 333 10^3/uL (134-434); RBC 2.16 M/mm3 (3.60-5.2); WHITE BLOOD COUNT 6.6 K/mm3 (4.0-10.0)
[2020-11-27 15:06] LABS: HEMATOCRIT 20.2 % (32.4-45.2)
[2020-11-27 15:08] LABS: HEMOGLOBIN 6.8 GM/dL (10.7-15.3)
[2020-11-27 15:25] LABS: MAGNESIUM 1.9 mg/dL (1.8-2.4)
[2020-11-27 15:28] LABS: CREATININE 3.4 mg/dL (0.55-1.3); PHOSPHOROUS 4.6 mg/dL (2.5-4.9)
[2020-11-27 15:29] LABS: BILIRUBIN,TOTAL 0.4 mg/dL (0.2-1); TOT PROT 6.9 g/dl (6.4-8.2)
[2020-11-27 15:35] LABS: N-TERMINAL BNP 29129.3 pg/ml (5-125)
[2020-11-27 15:46] LABS: URINE APPEARANCE TURBID; URINE BILIRUBIN SMALL (NEGATIVE); URINE COLOR DK YELLOW; URINE GLUCOSE (UA) NEGATIVE (NEGATIVE); URINE KETONE TRACE (NEGATIVE)
[2020-11-27 15:47] LABS: PH,URINE 5.5 (5.0-8.0); URINE LEUK ESTERASE 3+ (NEGATIVE); URINE NITRITE NEGATIVE (NEGATIVE); URINE PROTEIN 2+ (NEGATIVE); URINE RBC 234.5 /uL (0-23.9); URINE WBC 19698.8 /uL (0-25.8)
[2020-11-27 15:48] LABS: EPI CELLS 162.4 /uL (0-25.1); HYALINE CASTS 1134.17 /uL (0-3.1); URINE BACTERIA 642.6 /uL (0-1359)
[2020-11-27] MEDS ORDERED: PIPERACILLIN/TAZOB 4.5 GM 4.5 GM in DEXTROSE 5%-WATER 100 ML IVPB ONE (16:09)
[2020-11-27] MEDS ORDERED: PIPERACILLIN/TAZOB 4.5 GM 4.5 GM/100 ML BAG IVPB ONE (16:15)
[2020-11-27 21:39] LABS: INR 1.15 (0.83-1.09); PROTHROMBIN TIME (PATIENT) 14.2 SEC (9.7-13.0)
[2020-11-27] MEDS ORDERED: CARVEDILOL 12.5 MG TABLET (FP) PO SCH (22:00)
[2020-11-27] MEDS: CARVEDILOL 12.5 MG TABLET (FP) PO SCH (22:10)
[2020-11-27] MEDS: buPROPion HCL 75 MG TABLET PO SCH (22:16)
[2020-11-27] MEDS: ZOLPIDEM TARTRATE 5 MG TABLET PO PRN (22:16)
[2020-11-28 05:25] VITALS: BMI 28.3
[2020-11-28 08:06] LABS: BASO % 0.5 % (0-2.0); EOS % 1.9 % (0-4.5); HEMATOCRIT 26.8 % (32.4-45.2); HEMOGLOBIN 9.1 GM/dL (10.7-15.3); LYMPH % 8.4 % (8-40); MCH 30.1 pg (25.7-33.7); MCHC 33.9 g/dl (32.0-36.0); MEAN CELL VOLUME 88.8 fl (80-96); MEAN PLT VOLUME 8.2 fl (7.5-11.1); MONO % 8.6 % (3.8-10.2); NEUT % 80.6 % (42.8-82.8); PLATELET COUNT 313 10^3/uL (134-434); RBC 3.01 M/mm3 (3.60-5.2); RDW 16.5 % (11.6-15.6)
[2020-11-28 08:17] LABS: INR 1.16 (0.83-1.09); PROTHROMBIN TIME (PATIENT) 14.3 SEC (9.7-13.0)
[2020-11-28 08:20] LABS: CHLORIDE 97 mmol/L (98-107); SODIUM 134 mmol/L (136-145)
[2020-11-28 08:36] LABS: ALBUMIN 1.8 g/dl (3.4-5.0); CALCIUM 8.4 mg/dL (8.5-10.1)
[2020-11-28 08:37] LABS: BILIRUBIN,TOTAL 0.7 mg/dL (0.2-1); GLUCOSE,RANDOM 73 mg/dL (74-106)
[2020-11-28 08:38] LABS: ALK PHOS 99 U/L (45-117); SGPT/ALT < 6 U/L (13-61)
[2020-11-28 08:39] LABS: CREATININE 3.4 mg/dL (0.55-1.3); MAGNESIUM 1.6 mg/dL (1.8-2.4); SGOT/AST 8 U/L (15-37)
[2020-11-28 08:40] LABS: TOT PROT 6.4 g/dl (6.4-8.2)
[2020-11-28 08:41] LABS: ANION GAP 12 MMOL/L (8-16); CO2 25 mmol/L (21-32)
[2020-11-28 08:44] LABS: BLOOD UREA NITROGEN 67.3 mg/dL (7-18)
[2020-11-28] MEDS ORDERED: FLU VACC QS2021-22(6MOS UP)/PF 60 MCG/0.5 ML SYRINGE IM ONE (10:00)
[2020-11-28] MEDS ORDERED: CEFTRIAXONE 1 GM in DEXTROSE 5%-WATER - 50 ML IVPB SCH (10:00)
[2020-11-28] MEDS ORDERED: PIPERACILLIN/TAZOB 2.25 GM 2.25 GM in DEXTROSE 5%-WATER - 50 ML IVPB SCH (10:30)
[2020-11-28] MEDS ORDERED: VANCOMYCIN 1 GM in D5W (PRE-DOCKED) 1,000 MG/250 ML IVPB ONE (10:45)
[2020-11-28] MEDS ORDERED: ACETAMINOPHEN 1000 MG/100 ML VIAL (NON FORMULARY) IVPB PRN (10:45)
[2020-11-28] MEDS ORDERED: PT OWN MED DRAWER 7, Y5N ONE ×2 (11:00→21:26)
[2020-11-28] MEDS: CARVEDILOL 12.5 MG TABLET (FP) PO SCH ×2 (11:58→22:01)
[2020-11-28] MEDS: buPROPion HCL 75 MG TABLET PO SCH ×2 (11:58→22:24)
[2020-11-28] MEDS ORDERED: PIPERACILLIN/TAZOBACTAM 2.25 GM VIAL IVPB ONE ×3 (13:42→21:26)
[2020-11-28] MEDS ORDERED: DEXTROSE 5%-WATER - 50 ML IVPB ONE ×3 (13:42→21:26)
[2020-11-28] MEDS: PIPERACILLIN/TAZOB 2.25 GM 2.25 GM in DEXTROSE 5%-WATER - 50 ML IVPB SCH ×3 (14:06→21:57)
[2020-11-28] MEDS: ANASTROZOLE 1 MG TABLET PO SCH (14:14)
[2020-11-28] MEDS: ZOLPIDEM TARTRATE 5 MG TABLET PO PRN (21:59)
[2020-11-29] MEDS: PIPERACILLIN/TAZOB 2.25 GM 2.25 GM in DEXTROSE 5%-WATER - 50 ML IVPB SCH ×3 (03:45→14:11)
[2020-11-29] MEDS ORDERED: PIPERACILLIN/TAZOBACTAM 2.25 GM VIAL IVPB ONE ×3 (03:54→13:29)
[2020-11-29] MEDS ORDERED: DEXTROSE 5%-WATER - 50 ML IVPB ONE ×3 (03:54→13:30)
[2020-11-29 07:42] LABS: BASO % 1.3 % (0-2.0); EOS % 2.8 % (0-4.5); HEMATOCRIT 26.7 % (32.4-45.2); HEMOGLOBIN 9.2 GM/dL (10.7-15.3); LYMPH % 15.1 % (8-40); MCH 30.5 pg (25.7-33.7); MCHC 34.3 g/dl (32.0-36.0); MEAN CELL VOLUME 88.9 fl (80-96); MEAN PLT VOLUME 7.5 fl (7.5-11.1); MONO % 9.1 % (3.8-10.2); NEUT % 71.7 % (42.8-82.8); PLATELET COUNT 324 10^3/uL (134-434); RDW 16.5 % (11.6-15.6); WHITE BLOOD COUNT 5.2 K/mm3 (4.0-10.0)
[2020-11-29 08:31] LABS: CHLORIDE 98 mmol/L (98-107); SODIUM 133 mmol/L (136-145)
[2020-11-29] MEDS ORDERED: PT OWN MED DRAWER 7, Y5N ONE (08:53)
[2020-11-29 08:58] LABS: CALCIUM 8.5 mg/dL (8.5-10.1)
[2020-11-29 08:59] LABS: ALBUMIN 1.8 g/dl (3.4-5.0); ANION GAP 12 MMOL/L (8-16); BLOOD UREA NITROGEN 67.4 mg/dL (7-18); CO2 23 mmol/L (21-32); GLUCOSE,RANDOM 75 mg/dL (74-106)
[2020-11-29 09:01] LABS: SGPT/ALT < 6 U/L (13-61); TOTAL IRON BINDING CAPACITY 131 ug/dL (250-450)
[2020-11-29] MEDS: CARVEDILOL 12.5 MG TABLET (FP) PO SCH (09:01)
[2020-11-29] MEDS: buPROPion HCL 75 MG TABLET PO SCH (09:01)
[2020-11-29] MEDS: ANASTROZOLE 1 MG TABLET PO SCH (09:01)
[2020-11-29 09:02] LABS: CREATININE 3.3 mg/dL (0.55-1.3); IRON SERUM 81 ug/dL (50-175); SGOT/AST 7 U/L (15-37)
[2020-11-29 09:03] LABS: BILIRUBIN,TOTAL 0.4 mg/dL (0.2-1); TOT PROT 6.5 g/dl (6.4-8.2)
[2020-11-29 09:04] LABS: ALK PHOS 98 U/L (45-117)
[2020-11-29] MEDS ORDERED: LOPERAMIDE HCL 2 MG CAPSULE PO ONE (10:33)
[2020-11-29 14:54] VITALS: BP 118/53; PULSE 77; TEMP 98.8
== END 2020-11-29 20:19 | disposition short-term general hospital (02) | DRG 919 ==
LOC: JER 12:47 → JERBED 16:10 → J4W 20:20
PROVIDERS: ADMIT Family Medicine; ATTEND Family Medicine
PROC: 30233N1 Transfusion of Nonautologous Red Blood Cells into Peripheral Vein, Percutaneous Approach (ICD-10-PCS; principal; 2020-11-28)
DX: T81.30XA Disruption of wound, unspecified, initial encounter (principal); K65.1 Peritoneal abscess; I13.0 Hypertensive heart and chronic kidney disease with heart failure and stage 1 through stage 4 chronic kidney disease, or unspecified chronic kidney disease; I50.22 Chronic systolic (congestive) heart failure; N17.9 Acute kidney failure, unspecified; N39.0 Urinary tract infection, site not specified; I95.89 Other hypotension; D64.9 Anemia, unspecified; L89.152 Pressure ulcer of sacral region, stage 2; L89.629 Pressure ulcer of left heel, unspecified stage; L89.619 Pressure ulcer of right heel, unspecified stage; E11.9 Type 2 diabetes mellitus without complications; H54.40 Blindness, one eye, unspecified eye; K21.9 Gastro-esophageal reflux disease without esophagitis; E78.5 Hyperlipidemia, unspecified; K57.90 Diverticulosis of intestine, part unspecified, without perforation or abscess without bleeding; Y82.8 Other medical devices associated with adverse incidents; B95.2 Enterococcus as the cause of diseases classified elsewhere; E11.22 Type 2 diabetes mellitus with diabetic chronic kidney disease; N18.9 Chronic kidney disease, unspecified; J44.9 Chronic obstructive pulmonary disease, unspecified; Z86.73 Personal history of transient ischemic attack (TIA), and cerebral infarction without residual deficits; B96.20 Unspecified Escherichia coli [E. coli] as the cause of diseases classified elsewhere; Z85.3 Personal history of malignant neoplasm of breast
CPT/HCPCS: 36415; 36430; 71045-TC-FY; 74176-TC; 76775-TC; 80053; 81003; 82272; 82550; 82728; 82962; 83540; 83550; 83605; 83735; 83880; 84100; 84484; 85025; 85610; 86140; 86850; 86900; 86901; 86922; 87040; 87045; 87046; 87070; 87086; 87177; 87186; 87205; 87209; 87324; 87449; 93005; 93010; 99285-25; C9803; P9058; U0003; U0005

== ENCOUNTER 2020-12-18 12:14 | Inpatient (IN) | payer OTHER ==
[2020-12-18 14:35] LABS: BASO % 0.5 % (0-2.0); EOS % 1.5 % (0-4.5); HEMATOCRIT 27.8 % (32.4-45.2); HEMOGLOBIN 9.2 GM/dL (10.7-15.3); MCH 29.5 pg (25.7-33.7); MCHC 33.1 g/dl (32.0-36.0); MEAN PLT VOLUME 7.9 fl (7.5-11.1); MONO % 6.4 % (3.8-10.2); NEUT % 80.6 % (42.8-82.8); PLATELET COUNT 370 10^3/uL (134-434); RBC 3.12 M/mm3 (3.60-5.2); RDW 16.9 % (11.6-15.6); WHITE BLOOD COUNT 7.8 K/mm3 (4.0-10.0)
[2020-12-18 14:48] LABS: INR 1.65 (0.83-1.09); PROTHROMBIN TIME (PATIENT) 18.6 SEC (9.7-13.0)
[2020-12-18 14:51] LABS: ACTIVATED PTT 33.7 SECONDS (25.2-36.5)
[2020-12-18 15:04] LABS: CALCIUM 8.7 mg/dL (8.5-10.1)
[2020-12-18 15:05] LABS: ALBUMIN 1.8 g/dl (3.4-5.0); BLOOD UREA NITROGEN 36.4 mg/dL (7-18)
[2020-12-18 15:08] LABS: CREATININE 1.7 mg/dL (0.55-1.3)
[2020-12-18 15:09] LABS: BILIRUBIN,TOTAL 0.4 mg/dL (0.2-1)
[2020-12-18 15:10] LABS: TOT PROT 6.8 g/dl (6.4-8.2)
[2020-12-18] MEDS ORDERED: FUROSEMIDE 40 MG/4 ML INJECTABLE VIAL IVPUSH ONE (16:15)
[2020-12-18] MEDS ORDERED: FUROSEMIDE 40 MG/4 ML INJECTABLE VIAL ONE (16:21)
[2020-12-18] MEDS ORDERED: WARFARIN NA 7.5 MG TABLET PO ONE (18:38)
[2020-12-18] MEDS ORDERED: WARFARIN NA 5 MG TABLET ONE (18:56)
[2020-12-18] MEDS ORDERED: PT OWN MED DRAWER 7, Y5N ONE (22:23)
[2020-12-18] MEDS: ENOXAPARIN NA (PORCINE) 80 MG/0.8 ML DISP.SYRIN SQ SCH ×2 (22:26→22:50)
[2020-12-18] MEDS: CARVEDILOL 3.125 MG TABLET (FP) PO SCH (22:26)
[2020-12-18] MEDS: ZOLPIDEM TARTRATE 5 MG TABLET PO PRN (22:26)
[2020-12-18] MEDS: buPROPion HCL 75 MG TABLET PO SCH (22:40)
[2020-12-19] MEDS ORDERED: guaiFENesin 200 MG/10 ML 10 ML UNIT-DOSE CUPS PO ONE (01:15)
[2020-12-19 09:41] LABS: INR 2.08 (0.83-1.09); PROTHROMBIN TIME (PATIENT) 24.5 SEC (9.7-13.0)
[2020-12-19 09:41] LABS: HEMATOCRIT 26.7 % (32.4-45.2); HEMOGLOBIN 8.8 GM/dL (10.7-15.3); MCH 29.7 pg (25.7-33.7); MCHC 33.1 g/dl (32.0-36.0); MEAN CELL VOLUME 89.6 fl (80-96); MEAN PLT VOLUME 8.1 fl (7.5-11.1); PLATELET COUNT 350 10^3/uL (134-434); RBC 2.98 M/mm3 (3.60-5.2); RDW 16.9 % (11.6-15.6); WHITE BLOOD COUNT 5.7 K/mm3 (4.0-10.0)
[2020-12-19] MEDS ORDERED: PT OWN MED DRAWER 7, Y5N ONE ×3 (09:48→21:34)
[2020-12-19 09:50] LABS: CALCIUM 9.5 mg/dL (8.5-10.1)
[2020-12-19 09:51] LABS: BLOOD UREA NITROGEN 39.5 mg/dL (7-18)
[2020-12-19 09:55] LABS: CREATININE 1.6 mg/dL (0.55-1.3)
[2020-12-19] MEDS: FUROSEMIDE 40 MG/4 ML INJECTABLE VIAL IVPUSH SCH (10:01)
[2020-12-19] MEDS: CARVEDILOL 3.125 MG TABLET (FP) PO SCH ×2 (10:01→21:46)
[2020-12-19] MEDS: ANASTROZOLE 1 MG TABLET PO SCH (10:01)
[2020-12-19] MEDS: buPROPion HCL 75 MG TABLET PO SCH ×2 (10:02→21:47)
[2020-12-19] MEDS ORDERED: CARVEDILOL 3.125 MG TABLET (FP) PO STA (13:02)
[2020-12-19] MEDS: guaiFENesin/D-M SUGAR-FREE/ACLHOL-FREE 118 ML BOTTLE PO PRN (14:28)
[2020-12-19] MEDS ORDERED: WARFARIN NA 5 MG TABLET PO SCH (18:00)
[2020-12-19] MEDS: COLLAGENASE CLOSTRIDIUM HIST. 30 GRAMS TUBE TP SCH (18:04)
[2020-12-19] MEDS: ZOLPIDEM TARTRATE 5 MG TABLET PO PRN (21:47)
[2020-12-20 08:28] LABS: HEMATOCRIT 28.3 % (32.4-45.2); HEMOGLOBIN 9.3 GM/dL (10.7-15.3); MCH 29.2 pg (25.7-33.7); MCHC 32.8 g/dl (32.0-36.0); MEAN CELL VOLUME 88.9 fl (80-96); MEAN PLT VOLUME 7.8 fl (7.5-11.1); PLATELET COUNT 362 10^3/uL (134-434); RBC 3.18 M/mm3 (3.60-5.2); WHITE BLOOD COUNT 6.1 K/mm3 (4.0-10.0)
[2020-12-20 08:35] LABS: INR 3.01 (0.83-1.09); PROTHROMBIN TIME (PATIENT) 34.1 SEC (9.7-13.0)
[2020-12-20 08:51] LABS: BLOOD UREA NITROGEN 37.9 mg/dL (7-18)
[2020-12-20 08:52] LABS: CALCIUM 9.3 mg/dL (8.5-10.1)
[2020-12-20 08:54] LABS: CREATININE 1.6 mg/dL (0.55-1.3)
[2020-12-20] MEDS: CARVEDILOL 3.125 MG TABLET (FP) PO SCH (10:40)
[2020-12-20] MEDS: CARVEDILOL 12.5 MG TABLET (FP) PO SCH ×2 (10:44→21:07)
[2020-12-20] MEDS: ANASTROZOLE 1 MG TABLET PO SCH (10:44)
[2020-12-20] MEDS: buPROPion HCL 75 MG TABLET PO SCH ×2 (10:46→21:05)
[2020-12-20] MEDS ORDERED: PT OWN MED DRAWER 7, Y5N ONE ×2 (10:46→20:29)
[2020-12-20] MEDS: FUROSEMIDE 40 MG/4 ML INJECTABLE VIAL IVPUSH SCH (11:32)
[2020-12-20] MEDS ORDERED: FUROSEMIDE 40 MG/4 ML INJECTABLE VIAL IVPUSH ONE (14:00)
[2020-12-20] MEDS: COLLAGENASE CLOSTRIDIUM HIST. 30 GRAMS TUBE TP SCH (17:28)
[2020-12-20] MEDS: ZOLPIDEM TARTRATE 5 MG TABLET PO PRN (21:05)
[2020-12-20] MEDS: SACUBITRIL/VALSARTAN 24 MG-26 MG TABLET PO SCH (21:06)
[2020-12-21 08:31] LABS: HEMATOCRIT 29.7 % (32.4-45.2); HEMOGLOBIN 9.6 GM/dL (10.7-15.3); MCH 29.1 pg (25.7-33.7); MCHC 32.3 g/dl (32.0-36.0); MEAN CELL VOLUME 90.3 fl (80-96); MEAN PLT VOLUME 7.9 fl (7.5-11.1); PLATELET COUNT 358 10^3/uL (134-434); RBC 3.29 M/mm3 (3.60-5.2); RDW 17.3 % (11.6-15.6); WHITE BLOOD COUNT 6.3 K/mm3 (4.0-10.0)
[2020-12-21 08:36] LABS: INR 2.47 (0.83-1.09); PROTHROMBIN TIME (PATIENT) 29.2 SEC (9.7-13.0)
[2020-12-21 08:52] LABS: BLOOD UREA NITROGEN 41.5 mg/dL (7-18); CALCIUM 9.1 mg/dL (8.5-10.1); MAGNESIUM 2.2 mg/dL (1.8-2.4)
[2020-12-21 08:55] LABS: CREATININE 1.7 mg/dL (0.55-1.3)
[2020-12-21] MEDS ORDERED: PT OWN MED DRAWER 7, Y5N ONE ×2 (10:11→20:16)
[2020-12-21] MEDS: guaiFENesin/D-M SUGAR-FREE/ACLHOL-FREE 118 ML BOTTLE PO PRN ×3 (10:19→18:20)
[2020-12-21] MEDS: buPROPion HCL 75 MG TABLET PO SCH ×2 (11:07→21:17)
[2020-12-21] MEDS: FUROSEMIDE 40 MG/4 ML INJECTABLE VIAL IVPUSH SCH (11:08)
[2020-12-21] MEDS: CARVEDILOL 12.5 MG TABLET (FP) PO SCH (11:08)
[2020-12-21] MEDS: ANASTROZOLE 1 MG TABLET PO SCH (11:08)
[2020-12-21] MEDS: SACUBITRIL/VALSARTAN 24 MG-26 MG TABLET PO SCH ×2 (11:09→21:17)
[2020-12-21] MEDS: WARFARIN NA 2 MG TABLET PO SCH (18:23)
[2020-12-21] MEDS: COLLAGENASE CLOSTRIDIUM HIST. 30 GRAMS TUBE TP SCH (18:23)
[2020-12-21] MEDS ORDERED: FLU VACC QS2021-22(6MOS UP)/PF 60 MCG/0.5 ML SYRINGE IM ONE (20:00)
[2020-12-21] MEDS ORDERED: ONDANSETRON 4 MG/2 ML VIAL IVPUSH ONE (20:15)
[2020-12-21] MEDS: ATORVASTATIN CA 10 MG TABLET (FP) PO SCH (21:17)
[2020-12-21] MEDS: ZOLPIDEM TARTRATE 5 MG TABLET PO PRN (21:17)
[2020-12-21] MEDS: EPLERENONE 25 MG TABLET PO SCH (21:19)
[2020-12-22] MEDS: guaiFENesin/D-M SUGAR-FREE/ACLHOL-FREE 118 ML BOTTLE PO PRN ×4 (01:15→21:12)
[2020-12-22] MEDS ORDERED: PT OWN MED DRAWER 7, Y5N ONE ×5 (08:36→21:06)
[2020-12-22] MEDS: CARVEDILOL 12.5 MG TABLET (FP) PO SCH ×3 (09:05→21:11)
[2020-12-22] MEDS: ANASTROZOLE 1 MG TABLET PO SCH (09:11)
[2020-12-22] MEDS: SACUBITRIL/VALSARTAN 49 MG-51 MG TABLET PO SCH ×2 (09:12→21:11)
[2020-12-22] MEDS: EPLERENONE 25 MG TABLET PO SCH (09:13)
[2020-12-22] MEDS: COLLAGENASE CLOSTRIDIUM HIST. 30 GRAMS TUBE TP SCH (09:13)
[2020-12-22] MEDS: buPROPion HCL 75 MG TABLET PO SCH ×2 (09:14→21:11)
[2020-12-22] MEDS: FUROSEMIDE 40 MG/4 ML INJECTABLE VIAL IVPUSH SCH (09:14)
[2020-12-22 16:10] LABS: HEMATOCRIT 27.5 % (32.4-45.2); HEMOGLOBIN 9.1 GM/dL (10.7-15.3); MCH 29.6 pg (25.7-33.7); MCHC 33.1 g/dl (32.0-36.0); MEAN CELL VOLUME 89.5 fl (80-96); MEAN PLT VOLUME 8.2 fl (7.5-11.1); PLATELET COUNT 362 10^3/uL (134-434); RBC 3.07 M/mm3 (3.60-5.2); RDW 16.8 % (11.6-15.6); WHITE BLOOD COUNT 7.6 K/mm3 (4.0-10.0)
[2020-12-22 16:17] LABS: INR 2.95 (0.83-1.09); PROTHROMBIN TIME (PATIENT) 33.4 SEC (9.7-13.0)
[2020-12-22 16:30] LABS: CALCIUM 8.6 mg/dL (8.5-10.1)
[2020-12-22 16:31] LABS: BLOOD UREA NITROGEN 43.4 mg/dL (7-18)
[2020-12-22 16:34] LABS: CREATININE 1.9 mg/dL (0.55-1.3)
[2020-12-22] MEDS: WARFARIN NA 2 MG TABLET PO SCH (17:16)
[2020-12-22] MEDS: ATORVASTATIN CA 10 MG TABLET (FP) PO SCH (21:10)
[2020-12-22] MEDS: ZOLPIDEM TARTRATE 5 MG TABLET PO PRN (21:24)
[2020-12-23] MEDS: guaiFENesin/D-M SUGAR-FREE/ACLHOL-FREE 118 ML BOTTLE PO PRN ×3 (06:51→17:55)
[2020-12-23 09:24] LABS: BASO % 0.8 % (0-2.0); EOS % 1.9 % (0-4.5); HEMATOCRIT 28.6 % (32.4-45.2); HEMOGLOBIN 9.5 GM/dL (10.7-15.3); MCHC 33.2 g/dl (32.0-36.0); MEAN CELL VOLUME 90.4 fl (80-96); MEAN PLT VOLUME 8.8 fl (7.5-11.1); MONO % 5.2 % (3.8-10.2); NEUT % 79.1 % (42.8-82.8); PLATELET COUNT 378 10^3/uL (134-434); RBC 3.17 M/mm3 (3.60-5.2); RDW 16.3 % (11.6-15.6)
[2020-12-23 09:30] LABS: ALBUMIN 1.9 g/dl (3.4-5.0)
[2020-12-23 09:35] LABS: BILIRUBIN,TOTAL 0.4 mg/dL (0.2-1)
[2020-12-23 09:37] LABS: BLOOD UREA NITROGEN 45.5 mg/dL (7-18); CREATININE 1.8 mg/dL (0.55-1.3)
[2020-12-23] MEDS: buPROPion HCL 75 MG TABLET PO SCH ×2 (09:56→21:13)
[2020-12-23] MEDS: FUROSEMIDE 40 MG TABLET (FP) PO SCH (09:57)
[2020-12-23] MEDS: ANASTROZOLE 1 MG TABLET PO SCH (09:57)
[2020-12-23] MEDS: CARVEDILOL 12.5 MG TABLET (FP) PO SCH ×2 (09:57→21:12)
[2020-12-23] MEDS: COLLAGENASE CLOSTRIDIUM HIST. 30 GRAMS TUBE TP SCH (09:58)
[2020-12-23] MEDS: SACUBITRIL/VALSARTAN 49 MG-51 MG TABLET PO SCH ×2 (09:58→21:13)
[2020-12-23] MEDS: EPLERENONE 25 MG TABLET PO SCH (09:58)
[2020-12-23] MEDS ORDERED: ACETAMINOPHEN 325 MG TABLET (FP) PO PRN (13:19)
[2020-12-23] MEDS ORDERED: PT OWN MED DRAWER 7, Y5N ONE ×4 (13:32→21:03)
[2020-12-23 16:38] LABS: HEMATOCRIT 28.2 % (32.4-45.2); HEMOGLOBIN 9.2 GM/dL (10.7-15.3); MCH 29.7 pg (25.7-33.7); MCHC 32.8 g/dl (32.0-36.0); MEAN CELL VOLUME 90.5 fl (80-96); MEAN PLT VOLUME 8.6 fl (7.5-11.1); PLATELET COUNT 408 10^3/uL (134-434); RBC 3.11 M/mm3 (3.60-5.2); RDW 16.4 % (11.6-15.6); WHITE BLOOD COUNT 7.8 K/mm3 (4.0-10.0)
[2020-12-23 16:46] LABS: INR 3.08 (0.83-1.09); PROTHROMBIN TIME (PATIENT) 36.4 SEC (9.7-13.0)
[2020-12-23 16:50] LABS: CALCIUM 8.6 mg/dL (8.5-10.1)
[2020-12-23 16:51] LABS: BLOOD UREA NITROGEN 46.2 mg/dL (7-18)
[2020-12-23] MEDS: WARFARIN NA 2 MG TABLET PO SCH (17:07)
[2020-12-23] MEDS: ZOLPIDEM TARTRATE 5 MG TABLET PO PRN (21:13)
[2020-12-23] MEDS: ATORVASTATIN CA 10 MG TABLET (FP) PO SCH (21:13)
[2020-12-24] MEDS: guaiFENesin/D-M SUGAR-FREE/ACLHOL-FREE 118 ML BOTTLE PO PRN ×4 (06:46→21:27)
[2020-12-24] MEDS ORDERED: PT OWN MED DRAWER 7, Y5N ONE ×6 (06:57→21:25)
[2020-12-24] MEDS: buPROPion HCL 75 MG TABLET PO SCH ×2 (09:22→22:41)
[2020-12-24] MEDS: CARVEDILOL 12.5 MG TABLET (FP) PO SCH ×2 (09:23→22:41)
[2020-12-24] MEDS: FUROSEMIDE 40 MG TABLET (FP) PO SCH (09:23)
[2020-12-24] MEDS: SACUBITRIL/VALSARTAN 49 MG-51 MG TABLET PO SCH ×2 (09:23→22:43)
[2020-12-24] MEDS: ANASTROZOLE 1 MG TABLET PO SCH (09:23)
[2020-12-24] MEDS: EPLERENONE 25 MG TABLET PO SCH (09:24)
[2020-12-24] MEDS: COLLAGENASE CLOSTRIDIUM HIST. 30 GRAMS TUBE TP SCH (09:24)
[2020-12-24 13:22] LABS: HEMATOCRIT 29.8 % (32.4-45.2); HEMOGLOBIN 9.6 GM/dL (10.7-15.3); MCH 29.3 pg (25.7-33.7); MCHC 32.2 g/dl (32.0-36.0); MEAN CELL VOLUME 91.1 fl (80-96); MEAN PLT VOLUME 8.2 fl (7.5-11.1); PLATELET COUNT 439 10^3/uL (134-434); RBC 3.27 M/mm3 (3.60-5.2); RDW 16.7 % (11.6-15.6); WHITE BLOOD COUNT 7.7 K/mm3 (4.0-10.0)
[2020-12-24 13:32] LABS: INR 2.99 (0.83-1.09); PROTHROMBIN TIME (PATIENT) 33.9 SEC (9.7-13.0)
[2020-12-24 13:52] LABS: CALCIUM 9.2 mg/dL (8.5-10.1)
[2020-12-24 13:56] LABS: CREATININE 1.9 mg/dL (0.55-1.3)
[2020-12-24] MEDS: ZOLPIDEM TARTRATE 5 MG TABLET PO PRN (22:41)
[2020-12-24] MEDS: ATORVASTATIN CA 10 MG TABLET (FP) PO SCH (22:41)
[2020-12-25] MEDS: guaiFENesin/D-M SUGAR-FREE/ACLHOL-FREE 118 ML BOTTLE PO PRN ×3 (08:04→18:42)
[2020-12-25 10:19] LABS: INR 2.58 (0.83-1.09); PROTHROMBIN TIME (PATIENT) 30.5 SEC (9.7-13.0)
[2020-12-25] MEDS: CARVEDILOL 25 MG TABLET (FP) PO SCH ×3 (10:29→21:18)
[2020-12-25 10:32] LABS: BLOOD UREA NITROGEN 47.3 mg/dL (7-18); CALCIUM 9.3 mg/dL (8.5-10.1)
[2020-12-25 10:36] LABS: CREATININE 1.8 mg/dL (0.55-1.3)
[2020-12-25] MEDS: buPROPion HCL 75 MG TABLET PO SCH ×2 (10:36→21:19)
[2020-12-25] MEDS: EPLERENONE 25 MG TABLET PO SCH (10:37)
[2020-12-25] MEDS: SACUBITRIL/VALSARTAN 49 MG-51 MG TABLET PO SCH ×2 (10:37→21:18)
[2020-12-25] MEDS: FUROSEMIDE 40 MG TABLET (FP) PO SCH (10:38)
[2020-12-25] MEDS: ANASTROZOLE 1 MG TABLET PO SCH (10:39)
[2020-12-25] MEDS: COLLAGENASE CLOSTRIDIUM HIST. 30 GRAMS TUBE TP SCH (14:02)
[2020-12-25] MEDS: WARFARIN NA 2 MG TABLET PO SCH (18:42)
[2020-12-25] MEDS: ZOLPIDEM TARTRATE 5 MG TABLET PO PRN (21:18)
[2020-12-25] MEDS: ATORVASTATIN CA 10 MG TABLET (FP) PO SCH (21:18)
[2020-12-26] MEDS ORDERED: PT OWN MED DRAWER 7, Y5N ONE ×4 (06:46→22:00)
[2020-12-26 08:54] LABS: HEMATOCRIT 29.5 % (32.4-45.2); HEMOGLOBIN 9.6 GM/dL (10.7-15.3); MCH 29.4 pg (25.7-33.7); MCHC 32.7 g/dl (32.0-36.0); MEAN CELL VOLUME 89.9 fl (80-96); MEAN PLT VOLUME 8.2 fl (7.5-11.1); PLATELET COUNT 345 10^3/uL (134-434); RBC 3.28 M/mm3 (3.60-5.2); RDW 16.7 % (11.6-15.6); WHITE BLOOD COUNT 7.2 K/mm3 (4.0-10.0)
[2020-12-26 08:59] LABS: INR 2.88 (0.83-1.09); PROTHROMBIN TIME (PATIENT) 32.6 SEC (9.7-13.0)
[2020-12-26 09:24] LABS: CALCIUM 9.1 mg/dL (8.5-10.1)
[2020-12-26 09:25] LABS: BLOOD UREA NITROGEN 50.6 mg/dL (7-18)
[2020-12-26 09:28] LABS: CREATININE 1.8 mg/dL (0.55-1.3)
[2020-12-26] MEDS: FUROSEMIDE 40 MG TABLET (FP) PO SCH (09:31)
[2020-12-26] MEDS: SACUBITRIL/VALSARTAN 49 MG-51 MG TABLET PO SCH ×2 (09:31→21:54)
[2020-12-26] MEDS: guaiFENesin/D-M SUGAR-FREE/ACLHOL-FREE 118 ML BOTTLE PO PRN ×3 (09:31→21:54)
[2020-12-26] MEDS: CARVEDILOL 25 MG TABLET (FP) PO SCH ×2 (09:31→21:53)
[2020-12-26] MEDS: ANASTROZOLE 1 MG TABLET PO SCH (09:31)
[2020-12-26] MEDS: buPROPion HCL 75 MG TABLET PO SCH ×2 (09:32→21:54)
[2020-12-26] MEDS: EPLERENONE 25 MG TABLET PO SCH (09:33)
[2020-12-26] MEDS ORDERED: FUROSEMIDE 40 MG/4 ML INJECTABLE VIAL IVPUSH SCH (14:00)
[2020-12-26] MEDS: WARFARIN NA 2 MG TABLET PO SCH (18:23)
[2020-12-26] MEDS: COLLAGENASE CLOSTRIDIUM HIST. 30 GRAMS TUBE TP SCH (18:23)
[2020-12-26] MEDS: ATORVASTATIN CA 10 MG TABLET (FP) PO SCH (21:53)
[2020-12-26] MEDS: ZOLPIDEM TARTRATE 5 MG TABLET PO PRN (21:53)
[2020-12-27] MEDS ORDERED: PT OWN MED DRAWER 7, Y5N ONE (04:57)
[2020-12-27] MEDS: guaiFENesin/D-M SUGAR-FREE/ACLHOL-FREE 118 ML BOTTLE PO PRN ×3 (04:59→18:47)
[2020-12-27] MEDS ORDERED: FUROSEMIDE 40 MG TABLET (FP) PO ONE (06:15)
[2020-12-27] MEDS: FUROSEMIDE 40 MG/4 ML INJECTABLE VIAL IVPUSH SCH ×2 (06:47→17:44)
[2020-12-27 09:16] LABS: INR 3.34 (0.83-1.09); PROTHROMBIN TIME (PATIENT) 39.6 SEC (9.7-13.0)
[2020-12-27 09:54] LABS: CALCIUM 8.8 mg/dL (8.5-10.1)
[2020-12-27 09:55] LABS: BLOOD UREA NITROGEN 55.3 mg/dL (7-18)
[2020-12-27] MEDS: ANASTROZOLE 1 MG TABLET PO SCH (11:44)
[2020-12-27] MEDS: SACUBITRIL/VALSARTAN 49 MG-51 MG TABLET PO SCH ×2 (11:44→21:58)
[2020-12-27] MEDS: buPROPion HCL 75 MG TABLET PO SCH ×2 (11:44→21:59)
[2020-12-27] MEDS: CARVEDILOL 25 MG TABLET (FP) PO SCH ×2 (11:44→21:58)
[2020-12-27] MEDS: EPLERENONE 25 MG TABLET PO SCH (11:45)
[2020-12-27] MEDS: WARFARIN NA 2 MG TABLET PO SCH (17:22)
[2020-12-27] MEDS: COLLAGENASE CLOSTRIDIUM HIST. 30 GRAMS TUBE TP SCH (18:45)
[2020-12-27] MEDS: ATORVASTATIN CA 10 MG TABLET (FP) PO SCH (21:58)
[2020-12-28] MEDS: guaiFENesin/D-M SUGAR-FREE/ACLHOL-FREE 118 ML BOTTLE PO PRN (04:56)
[2020-12-28] MEDS: FUROSEMIDE 40 MG/4 ML INJECTABLE VIAL IVPUSH SCH ×2 (06:15→14:25)
[2020-12-28 09:07] LABS: INR 3.14 (0.83-1.09); PROTHROMBIN TIME (PATIENT) 35.6 SEC (9.7-13.0)
[2020-12-28 09:13] LABS: HEMATOCRIT 29.7 % (32.4-45.2); HEMOGLOBIN 9.8 GM/dL (10.7-15.3); MCH 29.7 pg (25.7-33.7); MCHC 32.8 g/dl (32.0-36.0); MEAN CELL VOLUME 90.5 fl (80-96); MEAN PLT VOLUME 8.4 fl (7.5-11.1); PLATELET COUNT 402 10^3/uL (134-434); RBC 3.28 M/mm3 (3.60-5.2); RDW 17.1 % (11.6-15.6); WHITE BLOOD COUNT 10.3 K/mm3 (4.0-10.0)
[2020-12-28 09:38] LABS: CALCIUM 9.3 mg/dL (8.5-10.1)
[2020-12-28 09:39] LABS: BLOOD UREA NITROGEN 54.5 mg/dL (7-18)
[2020-12-28 09:42] LABS: CREATININE 1.9 mg/dL (0.55-1.3)
[2020-12-28] MEDS: ANASTROZOLE 1 MG TABLET PO SCH (10:22)
[2020-12-28] MEDS: CARVEDILOL 25 MG TABLET (FP) PO SCH ×2 (10:22→21:38)
[2020-12-28] MEDS: SACUBITRIL/VALSARTAN 49 MG-51 MG TABLET PO SCH ×2 (10:23→22:14)
[2020-12-28] MEDS: EPLERENONE 25 MG TABLET PO SCH (10:23)
[2020-12-28] MEDS: buPROPion HCL 75 MG TABLET PO SCH ×2 (10:23→22:14)
[2020-12-28] MEDS: COLLAGENASE CLOSTRIDIUM HIST. 30 GRAMS TUBE TP SCH (10:25)
[2020-12-28] MEDS: ATORVASTATIN CA 10 MG TABLET (FP) PO SCH (22:14)
[2020-12-29] MEDS: FUROSEMIDE 40 MG/4 ML INJECTABLE VIAL IVPUSH SCH ×2 (06:07→13:31)
[2020-12-29 08:20] LABS: HEMATOCRIT 29.9 % (32.4-45.2); HEMOGLOBIN 9.7 GM/dL (10.7-15.3); MCH 29.3 pg (25.7-33.7); MCHC 32.3 g/dl (32.0-36.0); MEAN CELL VOLUME 90.6 fl (80-96); MEAN PLT VOLUME 8.5 fl (7.5-11.1); PLATELET COUNT 377 10^3/uL (134-434); RDW 17.2 % (11.6-15.6); WHITE BLOOD COUNT 8.8 K/mm3 (4.0-10.0)
[2020-12-29 08:31] LABS: INR 2.36 (0.83-1.09); PROTHROMBIN TIME (PATIENT) 27.9 SEC (9.7-13.0)
[2020-12-29 08:36] LABS: CALCIUM 9.1 mg/dL (8.5-10.1)
[2020-12-29 08:37] LABS: BLOOD UREA NITROGEN 53.2 mg/dL (7-18)
[2020-12-29 08:40] LABS: CREATININE 1.8 mg/dL (0.55-1.3)
[2020-12-29] MEDS: ANASTROZOLE 1 MG TABLET PO SCH (09:57)
[2020-12-29] MEDS: CARVEDILOL 25 MG TABLET (FP) PO SCH ×2 (09:57→21:20)
[2020-12-29] MEDS: buPROPion HCL 75 MG TABLET PO SCH ×2 (09:58→21:20)
[2020-12-29] MEDS: EPLERENONE 25 MG TABLET PO SCH ×2 (12:57→13:31)
[2020-12-29] MEDS: SACUBITRIL/VALSARTAN 49 MG-51 MG TABLET PO SCH ×2 (13:26→21:20)
[2020-12-29] MEDS: WARFARIN NA 3 MG TABLET PO SCH (17:39)
[2020-12-29] MEDS: POLYETHYLENE GLYCOL (HEALTHYLAX) 3350 17 GM PACKET PO SCH (17:39)
[2020-12-29] MEDS: COLLAGENASE CLOSTRIDIUM HIST. 30 GRAMS TUBE TP SCH (17:39)
[2020-12-29] MEDS ORDERED: PT OWN MED DRAWER 7, Y5N ONE ×2 (21:07→23:02)
[2020-12-29] MEDS: ATORVASTATIN CA 10 MG TABLET (FP) PO SCH (21:20)
[2020-12-29] MEDS: ZOLPIDEM TARTRATE 5 MG TABLET PO PRN (21:20)
[2020-12-30] MEDS: FUROSEMIDE 40 MG/4 ML INJECTABLE VIAL IVPUSH SCH ×2 (06:19→13:29)
[2020-12-30] MEDS: guaiFENesin/D-M SUGAR-FREE/ACLHOL-FREE 118 ML BOTTLE PO PRN ×2 (10:26→15:17)
[2020-12-30] MEDS: ANASTROZOLE 1 MG TABLET PO SCH (10:30)
[2020-12-30] MEDS: buPROPion HCL 75 MG TABLET PO SCH (10:30)
[2020-12-30] MEDS: SACUBITRIL/VALSARTAN 49 MG-51 MG TABLET PO SCH (10:30)
[2020-12-30] MEDS: EPLERENONE 25 MG TABLET PO SCH (10:30)
[2020-12-30] MEDS: CARVEDILOL 25 MG TABLET (FP) PO SCH ×2 (10:30→23:10)
[2020-12-30] MEDS: POLYETHYLENE GLYCOL (HEALTHYLAX) 3350 17 GM PACKET PO SCH (10:53)
[2020-12-30 11:53] LABS: HEMATOCRIT 28.7 % (32.4-45.2); HEMOGLOBIN 9.4 GM/dL (10.7-15.3); MCH 29.3 pg (25.7-33.7); MCHC 32.7 g/dl (32.0-36.0); MEAN CELL VOLUME 89.6 fl (80-96); PLATELET COUNT 367 10^3/uL (134-434); RDW 17.4 % (11.6-15.6); WHITE BLOOD COUNT 12.2 K/mm3 (4.0-10.0)
[2020-12-30 12:06] LABS: CALCIUM 8.9 mg/dL (8.5-10.1)
[2020-12-30 12:07] LABS: BLOOD UREA NITROGEN 52.1 mg/dL (7-18)
[2020-12-30 12:08] LABS: INR 2.14 (0.83-1.09); PROTHROMBIN TIME (PATIENT) 24.2 SEC (9.7-13.0)
[2020-12-30 12:10] LABS: CREATININE 1.8 mg/dL (0.55-1.3)
[2020-12-30] MEDS ORDERED: ONDANSETRON 4 MG/2 ML VIAL IVPUSH ONE (13:10)
[2020-12-30] MEDS: VASOPRESSIN 40 UNITS/100 ML BAG IV SCH (17:20)
[2020-12-30] MEDS ORDERED: MIDAZOLAM 100 MG in SODIUM CHLORIDE 100 ML IVPB SCH (17:30)
[2020-12-30] MEDS: COLLAGENASE CLOSTRIDIUM HIST. 30 GRAMS TUBE TP SCH (17:35)
[2020-12-30] MEDS: MIDAZOLAM IN 0.9 % SOD.CHLORID 100 MG/100 ML PLAST..BAG IVPB SCH (17:58)
[2020-12-30] MEDS: WARFARIN NA 3 MG TABLET PO SCH (17:58)
[2020-12-30 18:02] LABS: HEMATOCRIT 29.2 % (32.4-45.2); HEMOGLOBIN 9.1 GM/dL (10.7-15.3); MCH 28.6 pg (25.7-33.7); MCHC 31.1 g/dl (32.0-36.0); MEAN CELL VOLUME 92.2 fl (80-96); MEAN PLT VOLUME 8.5 fl (7.5-11.1); PLATELET COUNT 194 10^3/uL (134-434); RBC 3.17 M/mm3 (3.60-5.2); RDW 17.5 % (11.6-15.6); WHITE BLOOD COUNT 20.8 K/mm3 (4.0-10.0)
[2020-12-30 18:17] LABS: CHLORIDE 105 mmol/L (98-107); SODIUM 145 mmol/L (136-145)
[2020-12-30 18:20] LABS: ANION GAP 8 MMOL/L (8-16); BLOOD UREA NITROGEN 46.6 mg/dL (7-18); CO2 32 mmol/L (21-32); GLUCOSE,RANDOM 206 mg/dL (74-106)
[2020-12-30 18:23] LABS: CREATININE 1.8 mg/dL (0.55-1.3); SGOT/AST 34 U/L (15-37); SGPT/ALT 20 U/L (13-61)
[2020-12-30 18:24] LABS: BILIRUBIN,TOTAL 0.6 mg/dL (0.2-1); TOT PROT 5.1 g/dl (6.4-8.2)
[2020-12-30 18:26] LABS: ALK PHOS 106 U/L (45-117)
[2020-12-30 19:09] LABS: ALBUMIN 1.4 g/dl (3.4-5.0); CALCIUM 7.1 mg/dL (8.5-10.1)
[2020-12-30] MEDS ORDERED: NOREPINEPHRINE BITARTRATE 16,000 MCG in SODIUM CHLORIDE 484 ML IV SCH (20:45)
[2020-12-30] MEDS: ATORVASTATIN CA 10 MG TABLET (FP) PO SCH (23:11)
[2020-12-30] MEDS: DEXMEDETOMIDINE IN 0.9 % NACL 400 MCG/100 ML VIAL IVPB SCH (23:11)
[2020-12-30] MEDS: NOREPINEPHRINE NS PREMIX 16,000 MCG/500 ML BAG IVPB SCH (23:31)
[2020-12-31] MEDS ORDERED: SODIUM CHLORIDE 0.9% 500 ML INFUS.BAG IV ONE
[2020-12-31 06:48] LABS: HEMATOCRIT 27.6 % (32.4-45.2); HEMOGLOBIN 8.8 GM/dL (10.7-15.3); MCH 29.1 pg (25.7-33.7); MCHC 32.1 g/dl (32.0-36.0); MEAN CELL VOLUME 90.7 fl (80-96); MEAN PLT VOLUME 8.7 fl (7.5-11.1); PLATELET COUNT 310 10^3/uL (134-434); RBC 3.04 M/mm3 (3.60-5.2); RDW 16.9 % (11.6-15.6)
[2020-12-31 06:55] LABS: INR 2.7 (0.83-1.09); PROTHROMBIN TIME (PATIENT) 30.6 SEC (9.7-13.0)
[2020-12-31 07:08] LABS: BLOOD UREA NITROGEN 55.4 mg/dL (7-18)
[2020-12-31 07:11] LABS: CREATININE 2.2 mg/dL (0.55-1.3)
[2020-12-31 07:12] LABS: BILIRUBIN,TOTAL 0.7 mg/dL (0.2-1); TOT PROT 6.4 g/dl (6.4-8.2)
[2020-12-31 07:16] LABS: ALBUMIN 1.9 g/dl (3.4-5.0); CALCIUM 8.3 mg/dL (8.5-10.1)
[2020-12-31] MEDS: DEXMEDETOMIDINE IN 0.9 % NACL 400 MCG/100 ML VIAL IVPB SCH (08:39)
[2020-12-31 09:14] LABS: ANISOCYTOSIS 0; MACROCYTOSIS 0; PLATELET ESTIMATE NORMAL
[2020-12-31] MEDS ORDERED: PT OWN MED DRAWER 7, Y5N ONE ×3 (10:13→21:37)
[2020-12-31] MEDS: POLYETHYLENE GLYCOL (HEALTHYLAX) 3350 17 GM PACKET PO SCH (10:54)
[2020-12-31] MEDS: CARVEDILOL 25 MG TABLET (FP) PO SCH ×2 (10:54→22:11)
[2020-12-31] MEDS ORDERED: HEPARIN NA (PORCINE) 5,000 UNITS/ML 1ML VIAL IVPUSH PRN ×2 (10:58)
[2020-12-31] MEDS ORDERED: HEPARIN NA (PORCINE) 5,000 UNITS/ML 1ML VIAL IVPUSH ONE (10:58)
[2020-12-31] MEDS ORDERED: HEPARIN - 25,000 UNIT in SODIUM CHLORIDE 495 ML IV SCH (11:00)
[2020-12-31] MEDS ORDERED: VANCOMYCIN 1 GRAM (PRE-DOCKED) 1,000 MG/250 ML BAG IVPB ONE (14:24)
[2020-12-31] MEDS: MEROPENEM 1 GM in DEXTROSE 5%-WATER 100 ML IVPB SCH (15:48)
[2020-12-31] MEDS ORDERED: DEXTROSE 5%-WATER 100 ML IVPB ONE (16:36)
[2020-12-31] MEDS ORDERED: MEROPENEM 1 GM VIAL (RESTRICTED TO ID) IVPB ONE (16:36)
[2020-12-31] MEDS ORDERED: ANASTROZOLE 1 MG TABLET PO SCH (18:16)
[2020-12-31] MEDS: MIDAZOLAM IN 0.9 % SOD.CHLORID 100 MG/100 ML PLAST..BAG IVPB SCH (18:19)
[2020-12-31] MEDS: VASOPRESSIN 40 UNITS/100 ML BAG IV SCH (18:19)
[2020-12-31] MEDS: COLLAGENASE CLOSTRIDIUM HIST. 30 GRAMS TUBE TP SCH (18:19)
[2020-12-31] MEDS: ANASTROZOLE 1 MG TABLET PO SCH (18:20)
[2020-12-31] MEDS: FAMOTIDINE 20 MG/50 ML IVPB 10 MG/25 ML MG IVPB SCH (21:39)
[2020-12-31] MEDS: ANASTROZOLE 1 MG TABLET NR SCH (21:39)
[2020-12-31] MEDS: ATORVASTATIN CA 10 MG TABLET (FP) PO SCH (21:39)
[2020-12-31] MEDS: NOREPINEPHRINE NS PREMIX 16,000 MCG/500 ML BAG IVPB SCH (22:12)
[2021-01-01] MEDS ORDERED: MEROPENEM 1 GM VIAL (RESTRICTED TO ID) IVPB ONE ×2 (02:44→14:41)
[2021-01-01] MEDS ORDERED: DEXTROSE 5%-WATER 100 ML IVPB ONE ×2 (02:44→14:42)
[2021-01-01] MEDS: MEROPENEM 1 GM in DEXTROSE 5%-WATER 100 ML IVPB SCH ×2 (02:57→14:44)
[2021-01-01 07:05] LABS: HEMATOCRIT 25.8 % (32.4-45.2); HEMOGLOBIN 8.5 GM/dL (10.7-15.3); MCH 29.2 pg (25.7-33.7); MEAN CELL VOLUME 88.5 fl (80-96); MEAN PLT VOLUME 8.3 fl (7.5-11.1); PLATELET COUNT 351 10^3/uL (134-434); RBC 2.92 M/mm3 (3.60-5.2); RDW 17.8 % (11.6-15.6); WHITE BLOOD COUNT 13.4 K/mm3 (4.0-10.0)
[2021-01-01 07:24] LABS: CHLORIDE 100 mmol/L (98-107); SODIUM 140 mmol/L (136-145)
[2021-01-01 07:25] LABS: ANION GAP 11 MMOL/L (8-16); BLOOD UREA NITROGEN 57.7 mg/dL (7-18); CALCIUM 8.2 mg/dL (8.5-10.1); CO2 29 mmol/L (21-32)
[2021-01-01 07:26] LABS: GLUCOSE,RANDOM 93 mg/dL (74-106)
[2021-01-01 07:30] LABS: CREATININE 2.5 mg/dL (0.55-1.3)
[2021-01-01 07:34] LABS: INR 2.58 (0.83-1.09); PROTHROMBIN TIME (PATIENT) 30.5 SEC (9.7-13.0)
[2021-01-01 07:36] LABS: ACTIVATED PTT 48.4 SECONDS (25.2-36.5)
[2021-01-01 08:46] VITALS: BMI 29.5
[2021-01-01] MEDS ORDERED: PT OWN MED DRAWER 7, Y5N ONE (10:44)
[2021-01-01] MEDS: CARVEDILOL 25 MG TABLET (FP) PO SCH ×4 (10:47→23:34)
[2021-01-01] MEDS: ANASTROZOLE 1 MG TABLET NR SCH (10:49)
[2021-01-01] MEDS: FAMOTIDINE 20 MG/50 ML IVPB 10 MG/25 ML MG IVPB SCH ×2 (11:00→22:03)
[2021-01-01] MEDS: COLLAGENASE CLOSTRIDIUM HIST. 30 GRAMS TUBE TP SCH (12:29)
[2021-01-01] MEDS ORDERED: HEPARIN - 25,000 UNIT in SODIUM CHLORIDE 495 ML IV SCH (15:45)
[2021-01-01] MEDS ORDERED: FUROSEMIDE 40 MG/4 ML INJECTABLE VIAL IVPUSH ONE (16:30)
[2021-01-01] MEDS ORDERED: WARFARIN NA 3 MG TABLET PO SCH (18:00)
[2021-01-01] MEDS ORDERED: buPROPion HCL 75 MG TABLET PO SCH (18:00)
[2021-01-01] MEDS ORDERED: ACETAMINOPHEN 1000 MG/100 ML VIAL IVPB ONE ×2 (18:35→23:16)
[2021-01-01 18:56] LABS: EPI CELLS 17 /uL (0-25.1); HYALINE CASTS 4 /uL (0-3.1); URINE APPEARANCE TURBID; URINE BACTERIA 1170 /uL (0-1359); URINE BILIRUBIN NEGATIVE (NEGATIVE); URINE COLOR YELLOW; URINE GLUCOSE (UA) NEGATIVE (NEGATIVE); URINE KETONE TRACE (NEGATIVE); URINE LEUK ESTERASE 3+ (NEGATIVE); URINE NITRITE NEGATIVE (NEGATIVE); URINE PROTEIN 1+ (NEGATIVE); URINE RBC 61 /uL (0-23.9); URINE WBC 5829 /uL (0-25.8)
[2021-01-01 20:32] LABS: YEAST PRESENT (NEGATIVE)
[2021-01-01] MEDS: ATORVASTATIN CA 10 MG TABLET (FP) PO SCH (22:04)
[2021-01-01] MEDS: NOREPINEPHRINE NS PREMIX 16,000 MCG/500 ML BAG IVPB SCH (22:06)
[2021-01-01] MEDS: MIDAZOLAM IN 0.9 % SOD.CHLORID 100 MG/100 ML PLAST..BAG IVPB SCH (22:06)
[2021-01-01] MEDS ORDERED: MELATONIN 5 MG TABLETS PO ONE (22:24)
[2021-01-01 23:14] VITALS: BP 100/57; PULSE 128; TEMP 98.6
[2021-01-01] MEDS ORDERED: ALBUTEROL SO4 2.5/IPRATROPIUM 0.5 INH SOL 3 ML VIAL.NEB. NEB PRN (23:56)
[2021-01-02] MEDS ORDERED: LORazepam 2 MG/ML SDV VIAL IVPUSH ONE (00:12)
== END 2021-01-02 01:05 | disposition expired | DRG 291 ==
LOC: JER 12:14 → JERBED 16:00 → J5S 20:33 → JICU 12-30 17:22
PROVIDERS: ADMIT Internal Medicine; ATTEND Internal Medicine
PROC: 5A1945Z Respiratory Ventilation, 24-96 Consecutive Hours (ICD-10-PCS; principal; 2020-12-30)
PROC: 0BH17EZ Insertion of Endotracheal Airway into Trachea, Via Natural or Artificial Opening (ICD-10-PCS; 2020-12-30)
PROC: 02HV33Z Insertion of Infusion Device into Superior Vena Cava, Percutaneous Approach (ICD-10-PCS; 2020-12-31)
PROC: B548ZZA Ultrasonography of Superior Vena Cava, Guidance (ICD-10-PCS; 2020-12-31)
DX: I13.0 Hypertensive heart and chronic kidney disease with heart failure and stage 1 through stage 4 chronic kidney disease, or unspecified chronic kidney disease (principal); L89.153 Pressure ulcer of sacral region, stage 3; I50.43 Acute on chronic combined systolic (congestive) and diastolic (congestive) heart failure; J96.90 Respiratory failure, unspecified, unspecified whether with hypoxia or hypercapnia; L02.211 Cutaneous abscess of abdominal wall; N17.9 Acute kidney failure, unspecified; N39.0 Urinary tract infection, site not specified; I42.8 Other cardiomyopathies; D64.9 Anemia, unspecified; E11.9 Type 2 diabetes mellitus without complications; J44.9 Chronic obstructive pulmonary disease, unspecified; Z86.73 Personal history of transient ischemic attack (TIA), and cerebral infarction without residual deficits; H54.40 Blindness, one eye, unspecified eye; C50.912 Malignant neoplasm of unspecified site of left female breast; Z99.81 Dependence on supplemental oxygen; E11.22 Type 2 diabetes mellitus with diabetic chronic kidney disease; I35.0 Nonrheumatic aortic (valve) stenosis; I35.1 Nonrheumatic aortic (valve) insufficiency; E03.9 Hypothyroidism, unspecified; N18.32 Chronic kidney disease, stage 3b; F32.9 Major depressive disorder, single episode, unspecified; I48.0 Paroxysmal atrial fibrillation; I25.10 Atherosclerotic heart disease of native coronary artery without angina pectoris; I34.0 Nonrheumatic mitral (valve) insufficiency
CPT/HCPCS: 36415; 71045-TC-FY; 71250-TC; 80048; 80053; 81003; 82272; 82550; 82570; 82962; 83036; 83735; 83880; 84156; 84300; 84484; 85025; 85027; 85610; 85730; 86850; 86900; 86901; 87040; 87070; 87086; 87186; 87205; 87804; 90686; 93005; 93010; 93306-TC; 94002; 94640; 97116-GP; 97162-GP; 99285-25; C9803; G0008; G0397; J0131; J1644; J3490; U0003; U0005